=== PATIENT | female | born 1965 | race Caucasian/White ===

== ENCOUNTER 2017-10-04 17:09 | Outpatient (RCR) | payer BC, SELFPAY | END 2017-10-13 23:59 | LOC: NS 17:09 | PROVIDERS: Family Provider Internal Medicine; PCP Internal Medicine; Visit Provider Internal Medicine | DX: E66.9 Obesity, unspecified (principal); Z68.38 Body mass index [BMI] 38.0-38.9, adult; Z71.3 Dietary counseling and surveillance | CPT/HCPCS: 97803 ==

== ENCOUNTER → 2017-10-30 07:10 | Outpatient (CLI) | payer BC, SELFPAY ==
[2017-10-30 08:33] LABS: Absolute Lymphocyte Count 2.17 X10^3/ul (0.83-4.51); Absolute Neutrophil Count 2.9 X10^3/uL (2.0-7.7); Basophil# 0.01 X10^3/uL; Basophil% 0.2 % (0-1); Hemoglobin 13.4 g/dl (12.0-15.0); Lymphocyte # 2.17 X10^3/ul (4.0); Lymphocyte % 38.3 % (19-41); Mean Corp Hgb Conc 31.9 g/gl (32-36); Mean Corpuscular Hgb 29.2 pg (27.0-32.0); Mean Corpuscular Volume 91.5 fL (81-99); Mean Platelet Vol. 9.4 fl (6.2-12.0); Monocyte# 0.57 X10^3/uL; Monocyte% 10.1 % (0-10); Neutrophil % 51.2 % (47-70); Platelet Count 289 K/mm3 (150-450); RBC Distribution Width SD 49.7 fl (35.1-43.9); Red Blood Count 4.59 M/mm3 (4.2-5.4); White Blood Count 5.7 K/mm3 (4.4-11.0)
[2017-10-30 08:42] LABS: POSITIVE COUNT NO; POSITIVE DIFFERENTIAL NO; POSITIVE MORPHOLOGY NO
[2017-10-30 09:00] LABS: AST(SGOT) 18 U/L (15-37); Alanine Aminotransfer ALT/SGPT 36 U/L (13-56); Albumin, Serum 3.5 g/dL (3.2-5.0); Alkaline Phosphatase 68 U/L (45-117); Anion Gap 9 (5-15); BUN 11 mg/dL (7-18); BUN/Creat Ratio 15.2 RATIO (10-20); Calcium,Total 8.9 mg/dL (8.5-10.1); Chloride 102 mmol/L (98-107); Creatinine, Serum 0.72 mg/dL (0.55-1.02); EST Glomerular Filtration Rate 90 mL/min (>60); Est Glom Filt Rate - Afr Amer 109 mL/min (>60); Globulin 3.6 g/dL (2.2-4.2); Glucose 93 mg/dL (74-106); Potassium 4.2 mmol/L (3.5-5.1); Protein, Total 7.1 g/dL (6.4-8.2); Sodium Level 138 mmol/L (136-145)
== END ==
PROVIDERS: Family Provider Internal Medicine; PCP Internal Medicine; Visit Provider Internal Medicine Rheumatology
DX: M06.4 Inflammatory polyarthropathy (principal); Z79.899 Other long term (current) drug therapy; M79.7 Fibromyalgia; M35.00 Sjogren syndrome, unspecified; E03.9 Hypothyroidism, unspecified; I10 Essential (primary) hypertension; E20.9 Hypoparathyroidism, unspecified; E78.5 Hyperlipidemia, unspecified; F31.9 Bipolar disorder, unspecified
CPT/HCPCS: 36415; 80053; 85025

== ENCOUNTER 2017-11-01 10:00 | Outpatient (RCR) | payer BC, SELFPAY | END 2017-11-10 23:59 | LOC: NS 10:00 | PROVIDERS: Family Provider Internal Medicine; PCP Internal Medicine; Visit Provider Internal Medicine | DX: E66.9 Obesity, unspecified (principal); Z68.38 Body mass index [BMI] 38.0-38.9, adult; Z71.3 Dietary counseling and surveillance | CPT/HCPCS: 97803 ==

== ENCOUNTER 2017-11-15 16:11 | Outpatient (RCR) | payer BC, SELFPAY | END 2017-12-11 23:59 | LOC: NS 16:11 | PROVIDERS: Family Provider Internal Medicine; PCP Internal Medicine; Visit Provider Internal Medicine | DX: E66.9 Obesity, unspecified (principal); Z68.38 Body mass index [BMI] 38.0-38.9, adult; Z71.3 Dietary counseling and surveillance | CPT/HCPCS: 97803 ==

== ENCOUNTER → 2017-12-25 07:17 | Outpatient (CLI) | payer BC, SELFPAY ==
[2017-12-25 08:55] LABS: ALB/GLOB Ratio 0.9 RATIO (0.9-2.4); AST(SGOT) 29 U/L (15-37); Alanine Aminotransfer ALT/SGPT 33 U/L (13-56); Albumin, Serum 3.3 g/dL (3.2-5.0); Alkaline Phosphatase 69 U/L (45-117); Anion Gap 8 (5-15); BUN 11 mg/dL (7-18); BUN/Creat Ratio 16.4 RATIO (10-20); Calcium,Total 8.6 mg/dL (8.5-10.1); Chloride 108 mmol/L (98-107); Creatinine, Serum 0.67 mg/dL (0.55-1.02); EST Glomerular Filtration Rate 99 mL/min (>60); Est Glom Filt Rate - Afr Amer 120 mL/min (>60); Globulin 3.7 g/dL (2.2-4.2); Glucose 90 mg/dL (74-106); Potassium 4.4 mmol/L (3.5-5.1); Sodium Level 139 mmol/L (136-145); Thyroid Stim Hormone (TSH) 1.03 uIU/mL (0.358-3.74)
[2017-12-27 09:30] LABS: Vitamin D,25 Hydroxy 59.3 ng/mL (29.95-100.01)
== END ==
PROVIDERS: Family Provider Internal Medicine; PCP Internal Medicine; Visit Provider Internal Medicine Endocrinology, Diabetes & Metabolism
DX: E11.9 Type 2 diabetes mellitus without complications (principal); Z79.899 Other long term (current) drug therapy; I10 Essential (primary) hypertension; E55.9 Vitamin D deficiency, unspecified; E03.9 Hypothyroidism, unspecified; E78.2 Mixed hyperlipidemia
CPT/HCPCS: 36415; 80053; 82306; 83036; 84443

== ENCOUNTER 2018-01-03 16:28 | Outpatient (RCR) | payer BC, SELFPAY | END 2018-01-03 16:29 | LOC: NS 16:28 | PROVIDERS: Family Provider Internal Medicine; PCP Internal Medicine; Visit Provider Internal Medicine | DX: E66.9 Obesity, unspecified (principal); Z68.38 Body mass index [BMI] 38.0-38.9, adult; Z71.3 Dietary counseling and surveillance | CPT/HCPCS: 97803 ==

== ENCOUNTER → 2018-01-19 06:14 | Outpatient (CLI) | payer BC, SELFPAY ==
[2018-01-19 07:26] LABS: Erythrocyte Sedimentation Rate 6 mm/hr (0-30)
[2018-01-19 07:30] LABS: ALB/GLOB Ratio 0.8 RATIO (0.9-2.4); AST(SGOT) 29 U/L (15-37); Alanine Aminotransfer ALT/SGPT 39 U/L (13-56); Albumin, Serum 3.3 g/dL (3.2-5.0); Alkaline Phosphatase 69 U/L (45-117); Anion Gap 9 (5-15); BUN 11 mg/dL (7-18); BUN/Creat Ratio 14.6 RATIO (10-20); CRP 3.34 mg/L (0.0-3.0); Calcium,Total 8.9 mg/dL (8.5-10.1); Chloride 104 mmol/L (98-107); Creatinine, Serum 0.75 mg/dL (0.55-1.02); EST Glomerular Filtration Rate 87 mL/min (>60); Est Glom Filt Rate - Afr Amer 105 mL/min (>60); Globulin 3.9 g/dL (2.2-4.2); Glucose 86 mg/dL (74-106); Protein, Total 7.2 g/dL (6.4-8.2); Sodium Level 140 mmol/L (136-145)
[2018-01-19 07:32] LABS: Absolute Lymphocyte Count 2.27 X10^3/ul (0.83-4.51); Absolute Neutrophil Count 2.4 X10^3/uL (2.0-7.7); Basophil# 0.02 X10^3/uL; Basophil% 0.4 % (0-1); Eosinophil# 0.13 X10^3/uL; Eosinophils% 2.4 % (0-5); Hematocrit 42.8 % (37-47); Hemoglobin 14.2 g/dl (12.0-15.0); Lymphocyte # 2.27 X10^3/ul (4.0); Lymphocyte % 42.7 % (19-41); Mean Corp Hgb Conc 33.2 g/gl (32-36); Mean Corpuscular Hgb 32.1 pg (27.0-32.0); Mean Corpuscular Volume 96.6 fL (81-99); Mean Platelet Vol. 9.4 fl (6.2-12.0); Monocyte# 0.48 X10^3/uL; Neutrophil # 2.38 X10^3/uL (2.7-7.7); Neutrophil % 44.9 % (47-70); Platelet Count 302 K/mm3 (150-450); RBC Distribution Width CV 13.5 % (11.6-14.6); RBC Distribution Width SD 46.9 fl (35.1-43.9); Red Blood Count 4.43 M/mm3 (4.2-5.4); White Blood Count 5.3 K/mm3 (4.4-11.0)
[2018-01-19 07:37] LABS: POSITIVE COUNT NO; POSITIVE DIFFERENTIAL NO; POSITIVE MORPHOLOGY NO
== END ==
PROVIDERS: Family Provider Internal Medicine; PCP Internal Medicine; Visit Provider Internal Medicine Rheumatology
DX: M06.4 Inflammatory polyarthropathy (principal); Z79.899 Other long term (current) drug therapy; M79.7 Fibromyalgia; M35.00 Sjogren syndrome, unspecified; E03.9 Hypothyroidism, unspecified; I10 Essential (primary) hypertension; E20.9 Hypoparathyroidism, unspecified; E78.5 Hyperlipidemia, unspecified; F31.9 Bipolar disorder, unspecified
CPT/HCPCS: 36415; 80053; 85025; 85652; 86140

== ENCOUNTER → 2018-03-07 20:00 | Outpatient (CLI) | payer BC, SELFPAY | PROVIDERS: Family Provider Internal Medicine; PCP Internal Medicine; Visit Provider Internal Medicine | DX: R06.83 Snoring (principal) | CPT/HCPCS: 95810 ==

== ENCOUNTER → 2018-04-02 07:48 | Outpatient (CLI) | payer BC, SELFPAY ==
[2018-04-02 08:28] LABS: ALB/GLOB Ratio 0.9 RATIO (0.9-2.4); AST(SGOT) 28 U/L (15-37); Alanine Aminotransfer ALT/SGPT 33 U/L (13-56); Albumin, Serum 3.5 g/dL (3.2-5.0); Alkaline Phosphatase 60 U/L (45-117); Anion Gap 9 (5-15); BUN 8 mg/dL (7-18); BUN/Creat Ratio 9.5 RATIO (10-20); Calcium,Total 9.1 mg/dL (8.5-10.1); Chloride 108 mmol/L (98-107); Creatinine, Serum 0.84 mg/dL (0.55-1.02); EST Glomerular Filtration Rate 76 mL/min (>60); Est Glom Filt Rate - Afr Amer 92 mL/min (>60); Globulin 3.9 g/dL (2.2-4.2); Glucose 92 mg/dL (74-106); Potassium 4.2 mmol/L (3.5-5.1); Protein, Total 7.4 g/dL (6.4-8.2); Sodium Level 139 mmol/L (136-145)
[2018-04-02 08:35] LABS: Hemoglobin A1c 4.9 % (4.2-6.3)
== END ==
PROVIDERS: Family Provider Internal Medicine; PCP Internal Medicine; Visit Provider Internal Medicine Endocrinology, Diabetes & Metabolism
DX: E11.9 Type 2 diabetes mellitus without complications (principal); I10 Essential (primary) hypertension; E78.2 Mixed hyperlipidemia; Z79.899 Other long term (current) drug therapy
CPT/HCPCS: 36415; 80053; 83036

== ENCOUNTER → 2018-04-21 07:19 | Outpatient (CLI) | payer BC, SELFPAY ==
[2018-04-21 08:35] LABS: Absolute Lymphocyte Count 1.89 X10^3/ul (0.83-4.51); Absolute Neutrophil Count 2.8 X10^3/uL (2.0-7.7); Basophil# 0.02 X10^3/uL; Basophil% 0.4 % (0-1); Hematocrit 44.2 % (37-47); Hemoglobin 14.6 g/dl (12.0-15.0); Lymphocyte # 1.89 X10^3/ul (4.0); Lymphocyte % 36.3 % (19-41); Mean Corpuscular Hgb 32.2 pg (27.0-32.0); Mean Corpuscular Volume 97.6 fL (81-99); Mean Platelet Vol. 9.6 fl (6.2-12.0); Monocyte# 0.46 X10^3/uL; Monocyte% 8.8 % (0-10); Neutrophil # 2.82 X10^3/uL (2.7-7.7); Neutrophil % 54.3 % (47-70); POSITIVE COUNT NO; POSITIVE DIFFERENTIAL NO; POSITIVE MORPHOLOGY NO; Platelet Count 281 K/mm3 (150-450); RBC Distribution Width CV 12.8 % (11.6-14.6); RBC Distribution Width SD 45.7 fl (35.1-43.9); Red Blood Count 4.53 M/mm3 (4.2-5.4); White Blood Count 5.2 K/mm3 (4.4-11.0)
[2018-04-21 09:01] LABS: ALB/GLOB Ratio 0.9 RATIO (0.9-2.4); AST(SGOT) 22 U/L (15-37); Alanine Aminotransfer ALT/SGPT 35 U/L (13-56); Albumin, Serum 3.6 g/dL (3.2-5.0); Alkaline Phosphatase 63 U/L (45-117); Anion Gap 8 (5-15); BUN 10 mg/dL (7-18); BUN/Creat Ratio 12.2 RATIO (10-20); Calcium,Total 9.1 mg/dL (8.5-10.1); Chloride 105 mmol/L (98-107); Creatinine, Serum 0.82 mg/dL (0.55-1.02); EST Glomerular Filtration Rate 78 mL/min (>60); Est Glom Filt Rate - Afr Amer 95 mL/min (>60); Globulin 4.1 g/dL (2.2-4.2); Glucose 94 mg/dL (74-106); Potassium 4.3 mmol/L (3.5-5.1); Protein, Total 7.7 g/dL (6.4-8.2); Sodium Level 139 mmol/L (136-145)
== END ==
PROVIDERS: Family Provider Internal Medicine; PCP Internal Medicine; Visit Provider Internal Medicine Rheumatology
DX: M06.4 Inflammatory polyarthropathy (principal); Z79.899 Other long term (current) drug therapy; M79.7 Fibromyalgia; M35.00 Sjogren syndrome, unspecified; E03.9 Hypothyroidism, unspecified; I10 Essential (primary) hypertension; E20.9 Hypoparathyroidism, unspecified; E78.5 Hyperlipidemia, unspecified; F31.9 Bipolar disorder, unspecified
CPT/HCPCS: 36415; 80053; 85025

== ENCOUNTER → 2018-06-13 10:46 | Outpatient (CLI) | payer BC, SELFPAY ==
[2018-06-16 13:20] LABS: HPV Reflexed? NOT INDICATED
== END ==
PROVIDERS: Visit Provider Obstetrics & Gynecology
DX: Z12.4 Encounter for screening for malignant neoplasm of cervix (principal)
CPT/HCPCS: 88175; G0145

== ENCOUNTER → 2018-07-09 07:12 | Outpatient (CLI) | payer BC, SELFPAY ==
[2018-07-09 08:33] LABS: Hemoglobin A1c 4.8 % (4.2-6.3)
[2018-07-09 08:37] LABS: ALB/GLOB Ratio 0.9 RATIO (0.9-2.4); AST(SGOT) 20 U/L (15-37); Alanine Aminotransfer ALT/SGPT 35 U/L (13-56); Albumin, Serum 3.5 g/dL (3.2-5.0); Alkaline Phosphatase 70 U/L (45-117); Anion Gap 8 (5-15); BUN 9 mg/dL (7-18); BUN/Creat Ratio 13.2 RATIO (10-20); Calcium,Total 8.8 mg/dL (8.5-10.1); Chloride 105 mmol/L (98-107); Creatinine, Serum 0.68 mg/dL (0.55-1.02); EST Glomerular Filtration Rate 97 mL/min (>60); Est Glom Filt Rate - Afr Amer 117 mL/min (>60); Globulin 3.7 g/dL (2.2-4.2); Glucose 83 mg/dL (74-106); Potassium 4.1 mmol/L (3.5-5.1); Protein, Total 7.2 g/dL (6.4-8.2); Sodium Level 138 mmol/L (136-145); Thyroid Stim Hormone (TSH) 0.96 uIU/mL (0.358-3.74)
[2018-07-09 08:40] LABS: Microalbumin,Random Urine < 5.0 mg/L (NO RANGE EST.)
== END ==
PROVIDERS: Family Provider Internal Medicine; PCP Internal Medicine; Referring Provider Internal Medicine Endocrinology, Diabetes & Metabolism; Visit Provider Internal Medicine Endocrinology, Diabetes & Metabolism
DX: E11.9 Type 2 diabetes mellitus without complications (principal); E03.9 Hypothyroidism, unspecified; Z79.899 Other long term (current) drug therapy; E78.2 Mixed hyperlipidemia
CPT/HCPCS: 36415; 80053; 82043; 82570; 83036; 84443

== ENCOUNTER → 2018-07-13 07:00 | Outpatient (CLI) | payer BC, SELFPAY ==
--- NOTE | 2018-07-13 07:01 | BI_ITS ---
MAMMOGRAPHY - BILATERAL SCREENING REASON FOR EXAM: Female, 52 years old. Routine annual screening examination. PERTINENT HISTORY: Mother with breast cancer. TECHNIQUE: Digital bilateral breast shari (3D mammographic acquisition) in the CC and MLO projections. 2-D mediolateral oblique (MLO) and craniocaudad (CC) views of both breasts were obtained. CAD: Full Field Digital Mammography with Computer Added Detection was performed. COMPARISON: Comparison is made with prior study dated May 04, 2017 and March 25, 2016. FINDINGS: Breast Composition: The breasts are almost entirely fatty. There are no dominant masses or suspicious calcifications. Stable small benign-appearing bilateral axillary nodes. No other significant abnormalities are identified. There has been no significant change since the prior study. BI/SCREENING MAMM (CAD), BILAT IMPRESSION: Stable bilateral screening mammogram. Yearly follow-up mammogram recommended. (A) ASSESSMENT CATEGORY: BIRADS Category 2: Benign. A letter regarding these results will be sent to the patient by the facility within 30 days. Approximately 10% of breast cancers are not detected by mammography. A normal mammogram should not delay biopsy of a clinically suspicious abnormality. [id number] Electronically Signed: Selwyn Guaman MD at 8:16 EDT Tel [phone], Service support ,
== END ==
PROVIDERS: Family Provider Internal Medicine; PCP Internal Medicine; Visit Provider Obstetrics & Gynecology
DX: Z12.31 Encounter for screening mammogram for malignant neoplasm of breast (principal)
CPT/HCPCS: 77063; 77067

== ENCOUNTER → 2018-07-23 07:08 | Outpatient (CLI) | payer BC, SELFPAY ==
[2018-07-23 07:47] LABS: Absolute Lymphocyte Count 2.22 X10^3/ul (0.83-4.51); Absolute Neutrophil Count 3.5 X10^3/uL (2.0-7.7); Basophil# 0.02 X10^3/uL; Basophil% 0.3 % (0-1); Eosinophil# 0.15 X10^3/uL; Eosinophils% 2.3 % (0-5); Hematocrit 42.5 % (37-47); Hemoglobin 14.1 g/dl (12.0-15.0); Lymphocyte # 2.22 X10^3/ul (4.0); Lymphocyte % 34.3 % (19-41); Mean Corp Hgb Conc 33.2 g/gl (32-36); Mean Corpuscular Hgb 32.2 pg (27.0-32.0); Mean Platelet Vol. 9.1 fl (6.2-12.0); Monocyte# 0.51 X10^3/uL; Monocyte% 7.9 % (0-10); Neutrophil # 3.54 X10^3/uL (2.7-7.7); Neutrophil % 54.7 % (47-70); Platelet Count 332 K/mm3 (150-450); RBC Distribution Width CV 12.8 % (11.6-14.6); Red Blood Count 4.38 M/mm3 (4.2-5.4); White Blood Count 6.5 K/mm3 (4.4-11.0)
[2018-07-23 07:48] LABS: POSITIVE COUNT NO; POSITIVE DIFFERENTIAL NO; POSITIVE MORPHOLOGY NO
[2018-07-23 08:20] LABS: ALB/GLOB Ratio 0.8 RATIO (0.9-2.4); AST(SGOT) 12 U/L (15-37); Alanine Aminotransfer ALT/SGPT 23 U/L (13-56); Albumin, Serum 3.3 g/dL (3.2-5.0); Alkaline Phosphatase 64 U/L (45-117); Anion Gap 9 (5-15); BUN 12 mg/dL (7-18); BUN/Creat Ratio 17.4 RATIO (10-20); Chloride 108 mmol/L (98-107); Creatinine, Serum 0.69 mg/dL (0.55-1.02); EST Glomerular Filtration Rate 96 mL/min (>60); Est Glom Filt Rate - Afr Amer 116 mL/min (>60); Globulin 3.9 g/dL (2.2-4.2); Glucose 85 mg/dL (74-106); Potassium 4.4 mmol/L (3.5-5.1); Protein, Total 7.2 g/dL (6.4-8.2); Sodium Level 142 mmol/L (136-145)
== END ==
PROVIDERS: Family Provider Internal Medicine; PCP Internal Medicine; Referring Provider Internal Medicine Rheumatology; Visit Provider Internal Medicine Rheumatology
DX: M06.4 Inflammatory polyarthropathy (principal); Z79.899 Other long term (current) drug therapy; M79.7 Fibromyalgia; M35.00 Sjogren syndrome, unspecified; E03.9 Hypothyroidism, unspecified; I10 Essential (primary) hypertension; E20.9 Hypoparathyroidism, unspecified; E78.5 Hyperlipidemia, unspecified; F31.9 Bipolar disorder, unspecified
CPT/HCPCS: 36415; 80053; 85025

== ENCOUNTER → 2018-10-15 07:02 | Outpatient (CLI) | payer BC, SELFPAY ==
[2018-10-15 07:45] LABS: Absolute Lymphocyte Count 1.85 X10^3/ul (0.83-4.51); Absolute Neutrophil Count 2.9 X10^3/uL (2.0-7.7); Basophil# 0.01 X10^3/uL; Basophil% 0.2 % (0-1); Eosinophil# 0.13 X10^3/uL; Eosinophils% 2.4 % (0-5); Hematocrit 41.6 % (37-47); Hemoglobin 13.7 g/dl (12.0-15.0); Lymphocyte # 1.85 X10^3/ul (4.0); Lymphocyte % 34.7 % (19-41); Mean Corp Hgb Conc 32.9 g/gl (32-36); Mean Corpuscular Volume 100.2 fL (81-99); Mean Platelet Vol. 9.1 fl (6.2-12.0); Monocyte# 0.43 X10^3/uL; Monocyte% 8.1 % (0-10); Neutrophil % 54.4 % (47-70); Platelet Count 320 K/mm3 (150-450); RBC Distribution Width CV 13.3 % (11.6-14.6); RBC Distribution Width SD 47.2 fl (35.1-43.9); Red Blood Count 4.15 M/mm3 (4.2-5.4); White Blood Count 5.3 K/mm3 (4.4-11.0)
[2018-10-15 07:48] LABS: POSITIVE COUNT NO; POSITIVE DIFFERENTIAL NO; POSITIVE MORPHOLOGY NO
[2018-10-15 08:29] LABS: ALB/GLOB Ratio 0.9 RATIO (0.9-2.4); AST(SGOT) 14 U/L (15-37); Alanine Aminotransfer ALT/SGPT 24 U/L (13-56); Albumin, Serum 3.5 g/dL (3.2-5.0); Alkaline Phosphatase 63 U/L (45-117); Anion Gap 10 (5-15); BUN 14 mg/dL (7-18); BUN/Creat Ratio 21.1 RATIO (10-20); Calcium,Total 9.3 mg/dL (8.5-10.1); Chloride 105 mmol/L (98-107); Cholesterol 164 mg/dL (200); Creatinine, Serum 0.66 mg/dL (0.55-1.02); EST Glomerular Filtration Rate 100 mL/min (>60); Est Glom Filt Rate - Afr Amer 121 mL/min (>60); Globulin 3.9 g/dL (2.2-4.2); Glucose 84 mg/dL (74-106); High Density Lipoprotein 56 mg/dL; Potassium 4.5 mmol/L (3.5-5.1); Protein, Total 7.4 g/dL (6.4-8.2); Sodium Level 140 mmol/L (136-145); Triglycerides 97 mg/dL; Very Low Density Lipoprotein 19 mg/dL (5-40)
[2018-10-15 08:37] LABS: Hemoglobin A1c 4.7 % (4.2-6.3)
[2018-10-17 10:35] LABS: Vitamin B12 568 pg/mL (211-911); Vitamin D,25 Hydroxy 51.7 ng/mL (29.95-100.01)
== END ==
PROVIDERS: Family Provider Internal Medicine; PCP Internal Medicine; Referring Provider Internal Medicine Rheumatology; Visit Provider Internal Medicine Rheumatology
DX: M06.4 Inflammatory polyarthropathy (principal); Z79.899 Other long term (current) drug therapy; M79.7 Fibromyalgia; M35.00 Sjogren syndrome, unspecified; E03.9 Hypothyroidism, unspecified; I10 Essential (primary) hypertension; E20.9 Hypoparathyroidism, unspecified; E78.5 Hyperlipidemia, unspecified; F31.9 Bipolar disorder, unspecified; E11.65 Type 2 diabetes mellitus with hyperglycemia; E78.2 Mixed hyperlipidemia; E55.9 Vitamin D deficiency, unspecified
CPT/HCPCS: 80053; 80061; 82306; 82607; 83036; 85025

== ENCOUNTER → 2018-11-08 08:15 | Outpatient (CLI) | payer BC, SELFPAY ==
--- NOTE | 2018-11-08 08:23 | US_ITS ---
STUDY: THYROID ULTRASOUND REASON FOR EXAM: Female, 52 years old. History of a multinodular goiter. Prior right thyroidectomy. TECHNIQUE: Ultrasound evaluation of the thyroid was performed with real-time and static ramon-scale imaging. COMPARISON: None. FINDINGS: RIGHT LOBE: The right lobe of the thyroid has been resected. LEFT LOBE: The left lobe of the thyroid gland is mildly enlarged and measures 5.3 cm x 2.1 cm x 1.6 cm. There is a heterogeneous echotexture. 5 solid nodules are seen in the left lobe. The largest measures 1.2 cm x 0.8 cm x 0.8 cm. There are 2 stable echogenic nodules in the mid pole of the thyroid gland. ISTHMUS: The isthmus measures 3.0 mm. The regional lymph nodes are normal. US/Thyroid IMPRESSION: Status post right thyroidectomy. Stable appearance of the nodular densities in the left lobe of the thyroid. Electronically Signed: Selwyn Guaman, at 10:14 EST , Service support ,
== END ==
PROVIDERS: Family Provider Internal Medicine; PCP Internal Medicine; Referring Provider Internal Medicine Endocrinology, Diabetes & Metabolism; Visit Provider Internal Medicine Endocrinology, Diabetes & Metabolism
DX: E04.2 Nontoxic multinodular goiter (principal)
CPT/HCPCS: 76536

== ENCOUNTER 2018-11-30 07:00 | Outpatient (RCR) | payer BC, SELFPAY ==
--- NOTE | 2018-11-09 08:22 | HP.PTEVAL_ITS ---
Patient's Visit Information SANTOS ALLAN is a 52 year old F referred to Physical Therapy by Vaibhav Guzman PA-C with a diagnosis of cervicalgia with radiculopathy. Date of Evaluation: 11/09/18 Physical Therapist: Rod Ramires, PT, ATC - Visit Plan Frequency: 2x /Week Duration: 2-4 Weeks Plan: postural edu, RRIS, DTR, MH, and scapular retraction ex's - Subjective Findings: Pt reports she has had neck pain for at least 4 mos. Pt reports her pain had an insidious onset in nature. Pt reports she has R UE radiculopathy that is intermittent in nature. 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 Pt reports she has had a c5-6 fusion in 2013. Pt notes she has sleep difficuty secondary to pain. Pt reports when she uses her computer, or just her R UE in general, her pain becomes worse. Pt reports stretching and massage tends to help her a little bit. Pt had recent xrays, which revealed inflammation, but no specific cause of her pain. Pt is R hand dominant. 3/10 pain at rest, 8/10 at worst. - Pain neck pain Pain Intensity (Out of 10): 3 Pain Intensity Range: 8 - Objective Neuro: B UE sensation is WNL to light touch. B bicepital reflex= 2/3. Palpation: Pt has significant muscle guarding throughout her neck. No obvious deformities. ROM: Pt is minimally limited with R rot and SB. No other limitations with AROM. MMT: R shoulder is grossly 4+/5 throughout. L shoulder is 5/5 throughout. Repeated movements: RRIS 10x3 decreased pain. RPIS 10x3 peripheralised sx's - Goals Goal 1:: Decrease neck pain x 50% to aid with sleep Goal Time Frame: 2-4 Weeks Goal 2:: Decrease frequency and intensity of R UE radiculopathy x 50% to aid with work tolerance Goal Time Frame: 2-4 Weeks Goal 3:: Pt will display proper posture both verbally and physically to aid with increased tolerance at work Goal Time Frame: 2-4 Weeks Goal 4:: I with HEP Goal Time Frame: 2-4 Weeks - Rehabilitation Potential Physical Therapy Diagnosis: Pt has neck pain and R UE rqadiculopathy secondary to c/s derrangement Rehabilitation Potential: Good - Anticipated Interventions Patient/Client Instruction: Educate patient on: Condition, Plan of Care For the Purpose of:: To improve self management Therapeutic Exercise to Include: Strength training, Endurance training, Balance training, Postural training, Traci Exercises, Scapular Strength/Stabilization For the Purpose of:: To decrease pain, To increase ROM, To improve muscle performance and motor function Thermo therapy (hot pack): Yes For the Purpose of:: To decrease pain Thank you for the opportunity to evaluate your patient. For Medicare and Medicare HMO plans, please review the plan of care and approve it. It will need to be FAXED BACK to us at [phone] for Medicare purposes. For Medicare only, by signing this I certify the plan of care. Please let me know if there are questions or concerns regarding this plan of care. Physician Signature: Date:
--- NOTE | 2019-03-30 12:12 | HP.PTDCSUM ---
HP - PT D/C Summary It has been my pleasure to treat SANTOS ALLAN under orders from Vaibhav Guzman PA-C, for the diagnosis of cervicalgia with radiculopathy for a total of 5 visit(s). Discharge Date: Please see the following information for a summary of their discharge status. - Subjective Subjective: Pt reports her pain has returned and she feels no better - Pain neck pain Pain Intensity (Out of 10): 5 - Overall Improvement % Improvement: 0 - Objective Objective/Function: Pain has remained the same 01/20. Pt reports her R UE sx's continue to extend from her shoulder to her thumbs. C/S Rom has improved, but pt is still limited with R SB and rotation. Pt is more aware of her posture now. Pt is I with HEP - Goals Goal 1:: Decrease neck pain x 50% to aid with sleep Goal Progress: Not Progressing Goal 2:: Decrease frequency and intensity of R UE radiculopathy x 50% to aid with work tolerance Goal Progress: Not Progressing Goal 3:: Pt will display proper posture both verbally and physically to aid with increased tolerance at work Goal Progress: Goal Met Goal 4:: I with HEP Goal Progress: Goal Met - Plan Plan: Discontinue and RTD - D/C Information If there are questions or concerns regarding this patient's physical therapy, please feel free to call me at [phone]. Thank you for the referral of this patient. Sincerely, Rod Ramires, PT, ATC
== END 2018-11-30 19:00 | disposition home or self-care (01) ==
LOC: PT 07:00
PROVIDERS: Family Provider Internal Medicine; PCP Internal Medicine; Referring Provider Physician Assistant; Visit Provider Physician Assistant
DX: M54.12 Radiculopathy, cervical region (principal); M54.2 Cervicalgia; E66.9 Obesity, unspecified
CPT/HCPCS: 97140; 97161; 97530

== ENCOUNTER → 2018-12-19 13:58 | Outpatient (CLI) | payer BC, SELFPAY ==
[2018-12-19 15:24] LABS: Creatinine, Serum 0.71 mg/dL (0.55-1.02); EST Glomerular Filtration Rate 92 mL/min (>60); Est Glom Filt Rate - Afr Amer 111 mL/min (>60)
== END ==
PROVIDERS: Family Provider Internal Medicine; PCP Internal Medicine; Referring Provider Physician Assistant; Visit Provider Physician Assistant
DX: M50.30 Other cervical disc degeneration, unspecified cervical region (principal)
CPT/HCPCS: 36415; 82565

== ENCOUNTER → 2019-01-14 | Outpatient (CLI) | payer BC, SELFPAY ==
[2019-01-14 08:30] LABS: Absolute Lymphocyte Count 1.81 X10^3/ul (0.83-4.51); Absolute Neutrophil Count 3.3 X10^3/uL (2.0-7.7); Basophil# 0.02 X10^3/uL; Basophil% 0.4 % (0-1); Eosinophils% 1.8 % (0-5); Hematocrit 43.5 % (37-47); Hemoglobin 14.3 g/dl (12.0-15.0); Lymphocyte # 1.81 X10^3/ul (4.0); Mean Corp Hgb Conc 32.9 g/gl (32-36); Mean Corpuscular Hgb 32.1 pg (27.0-32.0); Mean Corpuscular Volume 97.5 fL (81-99); Mean Platelet Vol. 8.9 fl (6.2-12.0); Monocyte% 7.1 % (0-10); Neutrophil # 3.31 X10^3/uL (2.7-7.7); Neutrophil % 58.3 % (47-70); Platelet Count 322 K/mm3 (150-450); RBC Distribution Width CV 12.6 % (11.6-14.6); RBC Distribution Width SD 43.2 fl (35.1-43.9); Red Blood Count 4.46 M/mm3 (4.2-5.4); White Blood Count 5.7 K/mm3 (4.4-11.0)
[2019-01-14 08:34] LABS: POSITIVE COUNT NO; POSITIVE DIFFERENTIAL NO; POSITIVE MORPHOLOGY NO
[2019-01-14 09:05] LABS: Hemoglobin A1c 4.6 % (4.2-6.3)
[2019-01-14 09:25] LABS: AST(SGOT) 20 U/L (15-37); Alanine Aminotransfer ALT/SGPT 22 U/L (13-56); Albumin, Serum 3.8 g/dL (3.2-5.0); Alkaline Phosphatase 64 U/L (45-117); Anion Gap 7 (5-15); BUN 10 mg/dL (7-18); BUN/Creat Ratio 14.1 RATIO (10-20); Calcium,Total 9.1 mg/dL (8.5-10.1); Chloride 104 mmol/L (98-107); Creatinine, Serum 0.71 mg/dL (0.55-1.02); EST Glomerular Filtration Rate 93 mL/min (>60); Est Glom Filt Rate - Afr Amer 112 mL/min (>60); Globulin 3.7 g/dL (2.2-4.2); Glucose 78 mg/dL (74-106); Potassium 4.5 mmol/L (3.5-5.1); Protein, Total 7.5 g/dL (6.4-8.2); Sodium Level 136 mmol/L (136-145); Thyroid Stim Hormone (TSH) 1.07 uIU/mL (0.358-3.74)
[2019-01-16 09:44] LABS: Vitamin B12 690 pg/mL (211-911)
== END | disposition home or self-care (01) ==
PROVIDERS: Family Provider Internal Medicine; PCP Internal Medicine; Referring Provider Internal Medicine Rheumatology; Visit Provider Internal Medicine Rheumatology
DX: M06.4 Inflammatory polyarthropathy (principal); Z79.899 Other long term (current) drug therapy; M79.7 Fibromyalgia; M35.00 Sjogren syndrome, unspecified; E03.9 Hypothyroidism, unspecified; I10 Essential (primary) hypertension; E20.9 Hypoparathyroidism, unspecified; E78.5 Hyperlipidemia, unspecified; F31.9 Bipolar disorder, unspecified; E11.9 Type 2 diabetes mellitus without complications
CPT/HCPCS: 36415; 80053; 82607; 83036; 84443; 85025

== ENCOUNTER → 2019-04-15 | Outpatient (CLI) | payer BC, SELFPAY ==
[2019-04-15 07:47] LABS: Absolute Lymphocyte Count 1.99 X10^3/uL (0.83-4.51); Absolute Neutrophil Count 2.9 X10^3/uL (2.0-7.7); Basophil# 0.03 X10^3/uL; Basophil% 0.6 % (0-1); Eosinophil# 0.06 X10^3/uL; Eosinophils% 1.1 % (0-5); Hematocrit 39.8 % (37-47); Hemoglobin 13.1 g/dL (12.0-15.0); Lymphocyte # 1.99 X10^3/ul (4.0); Mean Corp Hgb Conc 32.9 g/dL (32-36); Mean Corpuscular Hgb 32.8 pg (27.0-32.0); Mean Corpuscular Volume 99.7 fL (81-99); Monocyte# 0.37 X10^3/uL; Monocyte% 6.9 % (0-10); NRBC Flagged by Analyzer 0 % (0-5); Neutrophil % 53.8 % (47-70); Platelet Count 289 K/mm3 (150-450); RBC Distribution Width CV 12.2 % (11.6-14.6); RBC Distribution Width SD 44.4 fl (35.1-43.9); Red Blood Count 3.99 M/mm3 (4.2-5.4); White Blood Count 5.4 K/mm3 (4.4-11.0)
[2019-04-15 08:07] LABS: Hemoglobin A1c 4.5 % (4.2-6.3)
[2019-04-15 08:14] LABS: ALB/GLOB Ratio 0.9 RATIO (0.9-2.4); AST(SGOT) 15 U/L (15-37); Alanine Aminotransfer ALT/SGPT 31 U/L (13-56); Albumin, Serum 3.4 g/dL (3.2-5.0); Alkaline Phosphatase 65 U/L (45-117); Anion Gap 9 (5-15); BUN 12 mg/dL (7-18); BUN/Creat Ratio 16.7 RATIO (10-20); Calcium,Total 8.8 mg/dL (8.5-10.1); Chloride 105 mmol/L (98-107); Creatinine, Serum 0.72 mg/dL (0.55-1.02); EST Glomerular Filtration Rate 91 mL/min (>60); Est Glom Filt Rate - Afr Amer 110 mL/min (>60); Globulin 3.7 g/dL (2.2-4.2); Glucose 85 mg/dL (74-106); Phosphorus 3.6 mg/dL (2.5-4.9); Protein, Total 7.1 g/dL (6.4-8.2); Sodium Level 141 mmol/L (136-145); T4 Free Direct 1.36 ng/dL (0.76-1.46); Thyroid Stim Hormone (TSH) 1.23 uIU/mL (0.358-3.74)
[2019-04-15 13:47] LABS: Vitamin D,25 Hydroxy 55.3 ng/mL (29.95-100.01)
[2019-04-17 08:51] LABS: PTHIN 32.9 pg/mL (18.4-80.1)
== END | disposition home or self-care (01) ==
LOC: LAB 07:10
PROVIDERS: Family Provider Internal Medicine; PCP Internal Medicine; Referring Provider Internal Medicine Rheumatology; Visit Provider Internal Medicine Rheumatology
DX: M06.4 Inflammatory polyarthropathy (principal); Z79.899 Other long term (current) drug therapy; M79.7 Fibromyalgia; M35.00 Sjogren syndrome, unspecified; M25.511 Pain in right shoulder; E03.9 Hypothyroidism, unspecified; I10 Essential (primary) hypertension; E20.9 Hypoparathyroidism, unspecified; E78.5 Hyperlipidemia, unspecified; F31.9 Bipolar disorder, unspecified; E11.9 Type 2 diabetes mellitus without complications; E78.9 Disorder of lipoprotein metabolism, unspecified; E55.9 Vitamin D deficiency, unspecified
CPT/HCPCS: 36415; 80053; 82306; 83036; 83970; 84100; 84439; 84443; 85025

== ENCOUNTER → 2019-06-03 07:00 | Outpatient (CLI) | payer BC, SELFPAY ==
[2019-06-03 08:10] LABS: Color, Urine Yellow (Yellow); Glucose, Dipstick Normal (Normal); Ketone-Dipstick Negative (Negative); Leukocyte Esterase-Dipstick Negative /ul (Negative); Nitrite-Dipstick Negative (Negative); Occult Blood-Urine 10 /ul (Negative); Protein-Dipstick Negative (Negative); Urine Bilirubin Dipstick Negative (Negative); Urine Clarity Clear (Clear); Urine Urobilinogen Normal (Normal)
[2019-06-03 08:15] LABS: Erythrocyte Sedimentation Rate 11 mm/hr (0-30)
[2019-06-03 08:16] LABS: Absolute Lymphocyte Count 2.19 X10^3/uL (0.83-4.51); Absolute Neutrophil Count 3.9 X10^3/uL (2.0-7.7); Basophil# 0.04 X10^3/uL; Basophil% 0.6 % (0-1); Hematocrit 43.1 % (37-47); Hemoglobin 14.3 g/dL (12.0-15.0); Lymphocyte # 2.19 X10^3/ul (4.0); Lymphocyte % 32.9 % (19-41); Mean Corp Hgb Conc 33.2 g/dL (32-36); Mean Corpuscular Hgb 32.5 pg (27.0-32.0); Mean Platelet Vol. 9.3 fl (6.2-12.0); Monocyte# 0.45 X10^3/uL; Monocyte% 6.8 % (0-10); NRBC Flagged by Analyzer 0 % (0-5); Neutrophil # 3.93 X10^3/uL (2.7-7.7); Neutrophil % 58.9 % (47-70); Platelet Count 359 K/mm3 (150-450); RBC Distribution Width CV 12.1 % (11.6-14.6); RBC Distribution Width SD 43.4 fl (35.1-43.9); White Blood Count 6.7 K/mm3 (4.4-11.0)
[2019-06-03 08:46] LABS: ALB/GLOB Ratio 0.9 RATIO (0.9-2.4); AST(SGOT) 23 U/L (15-37); Alanine Aminotransfer ALT/SGPT 27 U/L (13-56); Albumin, Serum 3.4 g/dL (3.2-5.0); Alkaline Phosphatase 70 U/L (45-117); Anion Gap 11 (5-15); BUN 9 mg/dL (7-18); BUN/Creat Ratio 11.3 RATIO (10-20); CRP 4.23 mg/L (0.0-3.0); Chloride 104 mmol/L (98-107); Creatinine, Serum 0.79 mg/dL (0.55-1.02); EST Glomerular Filtration Rate 81 mL/min (>60); Est Glom Filt Rate - Afr Amer 98 mL/min (>60); Globulin 3.9 g/dL (2.2-4.2); Glucose 94 mg/dL (74-106); Protein, Total 7.3 g/dL (6.4-8.2); Rheumatoid Factor < 10.0 IU/mL (<15); Sodium Level 139 mmol/L (136-145)
[2019-06-04 10:34] LABS: Complement C3 171 mg/dL (82-167)
[2019-06-05 21:09] LABS: RNP Ab <0.2 AI (0.0-0.9); SJOGREN'S Anti-SS-A test < 0.2 AI (0.0-0.9); SJOGREN'S Anti-SS-B test < 0.2 AI (0.0-0.9); Smith Ab <0.2 AI (0.0-0.9)
[2019-06-06 17:03] LABS: ANTINUCLEAR ANTIBODIES DIRECT Negative (Negative)
== END ==
PROVIDERS: Family Provider Internal Medicine; PCP Internal Medicine
DX: M35.01 Sjogren syndrome with keratoconjunctivitis (principal)
CPT/HCPCS: 36415; 80053; 81002; 85025; 85652; 86038; 86140; 86160; 86235; 86431

== ENCOUNTER → 2019-06-15 10:17 | Outpatient (CLI) | payer BC, SELFPAY ==
[2019-06-20 14:04] LABS: HPV APTIMA, High Risk Negative (Negative)
== END ==
PROVIDERS: Family Provider Internal Medicine; PCP Internal Medicine; Visit Provider Obstetrics & Gynecology
DX: Z12.4 Encounter for screening for malignant neoplasm of cervix (principal)
CPT/HCPCS: 87624; 88175; G0145

== ENCOUNTER → 2019-07-14 07:00 | Outpatient (CLI) | payer BC, SELFPAY ==
--- NOTE | 2019-07-14 07:00 | BI_ITS ---
MAMMOGRAPHY - BILATERAL SCREENING REASON FOR EXAM: Female, 53 years old. Routine annual screening examination. PERTINENT HISTORY: Mother with breast cancer. TECHNIQUE: Digital bilateral breast chuck (3D mammographic acquisition) in the CC and MLO projections. 2-D mediolateral oblique (MLO) and craniocaudad (CC) views of both breasts were obtained. CAD: Full Field Digital Mammography with Computer Added Detection was performed. COMPARISON: Comparison is made with prior examination dated July 13, 2018 and May 04, 2017. FINDINGS: Breast Composition: The breasts are almost entirely fatty. There are no dominant masses or suspicious calcifications. Stable benign-appearing bilateral axillary lymph nodes. No other significant abnormalities are identified. There has been no significant change since the prior study. BI/SCREEN MAMM (CAD) W/CHUCK BILAT IMPRESSION: Stable bilateral screening mammogram. Yearly follow-up mammogram recommended. (A) ASSESSMENT CATEGORY: BIRADS Category 2: Benign. A letter regarding these results will be sent to the patient by the facility within 30 days. Approximately 10% of breast cancers are not detected by mammography. A normal mammogram should not delay biopsy of a clinically suspicious abnormality. [id number] Electronically Signed: Selwyn Guaman, at 9:05 EDT , Service support ,
== END ==
PROVIDERS: Family Provider Internal Medicine; PCP Internal Medicine; Referring Provider Obstetrics & Gynecology; Visit Provider Obstetrics & Gynecology
DX: Z12.31 Encounter for screening mammogram for malignant neoplasm of breast (principal)
CPT/HCPCS: 77063; 77067

== ENCOUNTER → 2019-07-15 07:00 | Outpatient (CLI) | payer BC, SELFPAY ==
[2019-07-15 08:09] LABS: ALB/GLOB Ratio 0.9 RATIO (0.9-2.4); AST(SGOT) 20 U/L (15-37); Alanine Aminotransfer ALT/SGPT 28 U/L (13-56); Albumin, Serum 3.5 g/dL (3.2-5.0); Alkaline Phosphatase 62 U/L (45-117); Anion Gap 9 (5-15); BUN 9 mg/dL (7-18); BUN/Creat Ratio 11.5 RATIO (10-20); Calcium,Total 9.3 mg/dL (8.5-10.1); Chloride 105 mmol/L (98-107); Creatinine, Serum 0.78 mg/dL (0.55-1.02); EST Glomerular Filtration Rate 83 mL/min (>60); Est Glom Filt Rate - Afr Amer 100 mL/min (>60); Globulin 3.8 g/dL (2.2-4.2); Glucose 89 mg/dL (74-106); Magnesium 2.4 mg/dL (1.6-2.6); Potassium 4.3 mmol/L (3.5-5.1); Protein, Total 7.3 g/dL (6.4-8.2); Sodium Level 139 mmol/L (136-145)
[2019-07-15 08:12] LABS: Hemoglobin A1c 4.9 % (4.2-6.3)
[2019-07-15 08:16] LABS: Microalbumin,Random Urine 8.8 mg/L (NO RANGE EST.); Microalbumin:Creatinine Ratio 4.8 mg/g CRE (<30 mg/g CRE)
== END ==
PROVIDERS: Family Provider Internal Medicine; PCP Internal Medicine; Referring Provider Internal Medicine Endocrinology, Diabetes & Metabolism; Visit Provider Internal Medicine Endocrinology, Diabetes & Metabolism
DX: E11.9 Type 2 diabetes mellitus without complications (principal); Z79.899 Other long term (current) drug therapy; E78.2 Mixed hyperlipidemia; I10 Essential (primary) hypertension
CPT/HCPCS: 36415; 80053; 82043; 82570; 83036; 83735

== ENCOUNTER → 2019-10-07 07:06 | Outpatient (CLI) | payer BC, SELFPAY ==
[2019-10-08 13:08] LABS: Hemoglobin A1c 4.8 % (4.2-6.3)
[2019-10-08 13:11] LABS: AST(SGOT) 31 U/L (15-37); Alanine Aminotransfer ALT/SGPT 53 U/L (13-56); Albumin, Serum 3.7 g/dL (3.2-5.0); Alkaline Phosphatase 61 U/L (45-117); Anion Gap 7 (5-15); BUN 9 mg/dL (7-18); BUN/Creat Ratio 10.9 RATIO (10-20); Bilirubin, Direct 0.14 mg/dL (0.00-0.30); Calcium,Total 9.4 mg/dL (8.5-10.1); Chloride 104 mmol/L (98-107); Creatinine, Serum 0.83 mg/dL (0.55-1.02); EST Glomerular Filtration Rate 77 mL/min (>60); Est Glom Filt Rate - Afr Amer 93 mL/min (>60); Globulin 3.7 g/dL (2.2-4.2); Glucose 77 mg/dL (74-106); Potassium 3.9 mmol/L (3.5-5.1); Protein, Total 7.4 g/dL (6.4-8.2); Sodium Level 137 mmol/L (136-145); Thyroid Stim Hormone (TSH) 2.26 uIU/mL (0.358-3.74)
[2019-10-08 13:22] LABS: 24HR UR TOTAL VOLUME 2575 ml; Calcium Urine pH Range 1; Urine Calcium (Random) < 5.0 (Not Estab.)
[2019-10-08 13:45] LABS: (24 HR) Urine Calcium < 5.0 mg/24 HR (42.0-353.0)
== END ==
PROVIDERS: PCP Internal Medicine; Referring Provider Internal Medicine Endocrinology, Diabetes & Metabolism; Visit Provider Internal Medicine Endocrinology, Diabetes & Metabolism
DX: E11.9 Type 2 diabetes mellitus without complications (principal); E03.9 Hypothyroidism, unspecified; Z79.899 Other long term (current) drug therapy
CPT/HCPCS: 36415; 80053; 81050; 82248; 82340; 82570; 83036; 84443

== ENCOUNTER → 2020-02-09 06:06 | Outpatient (CLI) | payer BC, SELFPAY ==
[2020-02-09 08:35] LABS: ALB/GLOB Ratio 0.9 RATIO (0.9-2.4); AST(SGOT) 32 U/L (15-37); Alanine Aminotransfer ALT/SGPT 43 U/L (13-56); Albumin, Serum 3.4 g/dL (3.2-5.0); Alkaline Phosphatase 59 U/L (45-117); Anion Gap 9 (5-15); BUN 14 mg/dL (7-18); BUN/Creat Ratio 19.6 RATIO (10-20); Calcium,Total 9.4 mg/dL (8.5-10.1); Chloride 102 mmol/L (98-107); Cholesterol 173 mg/dL (200); Creatinine, Serum 0.71 mg/dL (0.55-1.02); EST Glomerular Filtration Rate 91 mL/min (>60); Est Glom Filt Rate - Afr Amer 111 mL/min (>60); Globulin 3.8 g/dL (2.2-4.2); Glucose 79 mg/dL (74-106); High Density Lipoprotein 59 mg/dL; Protein, Total 7.2 g/dL (6.4-8.2); Sodium Level 138 mmol/L (136-145); Triglycerides 132 mg/dL; Very Low Density Lipoprotein 26 mg/dL (5-40)
[2020-02-09 08:41] LABS: Vitamin D,25 Hydroxy 62.2 ng/mL
== END ==
PROVIDERS: PCP Internal Medicine; Referring Provider Internal Medicine Endocrinology, Diabetes & Metabolism; Visit Provider Internal Medicine Endocrinology, Diabetes & Metabolism
DX: E11.65 Type 2 diabetes mellitus with hyperglycemia (principal); I10 Essential (primary) hypertension; E78.2 Mixed hyperlipidemia; Z79.899 Other long term (current) drug therapy
CPT/HCPCS: 36415; 80053; 80061; 82306

== ENCOUNTER → 2020-02-12 | Outpatient (CLI) | payer BC, SELFPAY ==
[2020-02-12 13:52] LABS: (24 HR) Urine Calcium 178.4 mg/24 HR (42.0-353.0); 24HR UR TOTAL VOLUME 2050 ml; Calcium Urine pH Range 1; Urine Calcium (Random) 8.7 (Not Estab.)
== END | disposition home or self-care (01) ==
PROVIDERS: PCP Internal Medicine; Referring Provider Internal Medicine Endocrinology, Diabetes & Metabolism; Visit Provider Internal Medicine Endocrinology, Diabetes & Metabolism
DX: E11.65 Type 2 diabetes mellitus with hyperglycemia (principal); I10 Essential (primary) hypertension; E78.2 Mixed hyperlipidemia; Z79.899 Other long term (current) drug therapy
CPT/HCPCS: 81050; 82340

== ENCOUNTER → 2020-03-14 06:55 | Outpatient (CLI) | payer BC, SELFPAY ==
[2020-03-14 07:41] LABS: AST(SGOT) 35 U/L (15-37); Alanine Aminotransfer ALT/SGPT 49 U/L (13-56); Albumin, Serum 3.2 g/dL (3.2-5.0); Alkaline Phosphatase 54 U/L (45-117); Bilirubin, Direct 0.12 mg/dL (0.00-0.30); Globulin 3.7 g/dL (2.2-4.2); Protein, Total 6.9 g/dL (6.4-8.2)
== END ==
PROVIDERS: PCP Internal Medicine
DX: Z79.899 Other long term (current) drug therapy (principal)
CPT/HCPCS: 36415; 80076

== ENCOUNTER → 2020-04-23 13:51 | Outpatient (CLI) | payer BC, SELFPAY ==
--- NOTE | 2020-04-23 13:58 | RAD_ITS ---
STUDY: X-RAY - SACRUM/COCCYX REASON FOR EXAM: Female, 54 years old. LBP TECHNIQUE: 3 view(s) of the sacrum and coccyx were obtained. COMPARISON: None. FINDINGS: There is degenerative arthrosis of the bilateral sacroiliac joints. Normal visualized sacral ala and fused sacral bodies. Normal sacrococcygeal junction with a normal angulation. Normal coccygeal segments. The presacral soft tissue structures are unremarkable. RAD/Sacrum-Coccyx min 2 Views IMPRESSION: Mild degree of degenerative changes of the sacroiliac joints bilaterally. Electronically Signed: Selwyn Guaman, at 15:53 EDT , Service support ,
--- NOTE | 2020-04-23 13:58 | RAD_ITS ---
STUDY: X-RAY - PELVIS REASON FOR EXAM: Female, 54 years old. PELVIS PAIN TECHNIQUE: One view of the pelvis was obtained. COMPARISON: None. FINDINGS: There is a non-specific bowel gas pattern. There are multiple calcified phleboliths. There is narrowing with cortical sclerosis and osteophyte formation of the sacroiliac joint consistent with degenerative osteoarthritic changes. Normal visualized bilateral superior and inferior pubic rami. Normal pubic symphysis. Normal ischial tuberosities. Normal visualized right femoral head. Normal right acetabulum. There is mild articular joint space narrowing of the right hip. Normal visualized left femoral head. Normal left acetabulum. There is mild articular joint space narrowing of the left hip. RAD/Pelvis 1 or 2 Views IMPRESSION: Mild degree of joint space narrowing involving both hip joints. Electronically Signed: Selwyn Guaman, at 15:52 EDT , Service support ,
== END ==
PROVIDERS: PCP Internal Medicine; Referring Provider Anesthesiology Pain Medicine; Visit Provider Anesthesiology Pain Medicine
DX: M53.3 Sacrococcygeal disorders, not elsewhere classified (principal)
CPT/HCPCS: 72170; 72220

== ENCOUNTER → 2020-05-11 07:16 | Outpatient (CLI) | payer BC, SELFPAY ==
[2020-05-11 08:52] LABS: Anion Gap 5 (5-15); BUN 8 mg/dL (7-18); BUN/Creat Ratio 12.6 RATIO (10-20); Calcium,Total 9.2 mg/dL (8.5-10.1); Chloride 109 mmol/L (98-107); Creatinine, Serum 0.64 mg/dL (0.55-1.02); EST Glomerular Filtration Rate 104 mL/min (>60); Est Glom Filt Rate - Afr Amer 126 mL/min (>60); Glucose 97 mg/dL (74-106); Potassium 3.9 mmol/L (3.5-5.1); Sodium Level 141 mmol/L (136-145)
[2020-05-11 08:53] LABS: Hemoglobin A1c 4.2 % (3.8-5.6)
== END ==
PROVIDERS: PCP Internal Medicine; Referring Provider Internal Medicine Endocrinology, Diabetes & Metabolism; Visit Provider Internal Medicine Endocrinology, Diabetes & Metabolism
DX: E11.9 Type 2 diabetes mellitus without complications (principal); E78.2 Mixed hyperlipidemia; Z79.899 Other long term (current) drug therapy; I10 Essential (primary) hypertension
CPT/HCPCS: 36415; 80048; 83036; 84439; 84443

== ENCOUNTER → 2020-05-23 06:54 | Outpatient (CLI) | payer BC, SELFPAY ==
[2020-05-23 07:43] LABS: Erythrocyte Sedimentation Rate 4 mm/hr (0-30)
[2020-05-23 07:45] LABS: Absolute Lymphocyte Count 1.82 X10^3/uL (0.83-4.51); Absolute Neutrophil Count 3.3 X10^3/uL (2.0-7.7); Basophil# 0.04 X10^3/uL; Basophil% 0.7 % (0-1); Eosinophil# 0.09 X10^3/uL; Eosinophils% 1.6 % (0-5); Hematocrit 41.5 % (37-47); Hemoglobin 13.4 g/dL (12.0-15.0); Lymphocyte # 1.82 X10^3/ul (4.0); Lymphocyte % 31.9 % (19-41); Mean Corp Hgb Conc 32.3 g/dL (32-36); Mean Corpuscular Hgb 32.4 pg (27.0-32.0); Mean Corpuscular Volume 100.5 fL (81-99); Mean Platelet Vol. 10.5 fl (6.2-12.0); Monocyte# 0.47 X10^3/uL; Monocyte% 8.2 % (0-10); NRBC Flagged by Analyzer 0 % (0-5); Neutrophil # 3.27 X10^3/uL (2.7-7.7); Neutrophil % 57.2 % (47-70); Platelet Count 310 K/mm3 (150-450); RBC Distribution Width CV 13.4 % (11.6-14.6); RBC Distribution Width SD 49.1 fl (35.1-43.9); Red Blood Count 4.13 M/mm3 (4.2-5.4); White Blood Count 5.7 K/mm3 (4.4-11.0)
[2020-05-23 08:21] LABS: ALB/GLOB Ratio 1.1 RATIO (0.9-2.4); AST(SGOT) 31 U/L (15-37); Alanine Aminotransfer ALT/SGPT 47 U/L (13-56); Albumin, Serum 4.1 g/dL (3.2-5.0); Alkaline Phosphatase 68 U/L (45-117); Anion Gap 7 (5-15); BUN 8 mg/dL (7-18); BUN/Creat Ratio 10.9 RATIO (10-20); CRP 3.23 mg/L (0.0-3.0); Calcium,Total 9.6 mg/dL (8.5-10.1); Chloride 109 mmol/L (98-107); Creatinine, Serum 0.74 mg/dL (0.55-1.02); EST Glomerular Filtration Rate 88 mL/min (>60); Est Glom Filt Rate - Afr Amer 107 mL/min (>60); Globulin 3.6 g/dL (2.2-4.2); Glucose 93 mg/dL (74-106); Potassium 4.1 mmol/L (3.5-5.1); Protein, Total 7.7 g/dL (6.4-8.2); Sodium Level 141 mmol/L (136-145)
== END ==
PROVIDERS: PCP Internal Medicine
DX: Z79.899 Other long term (current) drug therapy (principal)
CPT/HCPCS: 36415; 80053; 85025; 85652; 86140

== ENCOUNTER → 2020-07-12 05:59 | Outpatient (CLI) | payer BC, SELFPAY ==
[2020-07-12 07:58] LABS: Microalbumin,Random Urine 14.5 mg/L (NO RANGE EST.); Microalbumin:Creatinine Ratio 8.9 mg/g CRE (<30 mg/g CRE)
[2020-07-12 08:02] LABS: AST(SGOT) 27 U/L (15-37); Alanine Aminotransfer ALT/SGPT 43 U/L (13-56); Albumin, Serum 3.9 g/dL (3.2-5.0); Alkaline Phosphatase 75 U/L (45-117); Anion Gap 7 (5-15); BUN 16 mg/dL (7-18); BUN/Creat Ratio 19.7 RATIO (10-20); Calcium,Total 9.4 mg/dL (8.5-10.1); Chloride 101 mmol/L (98-107); Creatinine, Serum 0.81 mg/dL (0.55-1.02); EST Glomerular Filtration Rate 78 mL/min (>60); Est Glom Filt Rate - Afr Amer 95 mL/min (>60); Globulin 4.1 g/dL (2.2-4.2); Glucose 96 mg/dL (74-106); Potassium 4.5 mmol/L (3.5-5.1); Sodium Level 137 mmol/L (136-145)
[2020-07-12 08:27] LABS: Vitamin B12 466 pg/mL (211-911)
[2020-07-12 10:34] LABS: Hemoglobin A1c 4.2 % (3.8-5.6)
== END ==
PROVIDERS: PCP Internal Medicine; Referring Provider Internal Medicine Endocrinology, Diabetes & Metabolism; Visit Provider Internal Medicine Endocrinology, Diabetes & Metabolism
DX: E11.65 Type 2 diabetes mellitus with hyperglycemia (principal); E55.9 Vitamin D deficiency, unspecified; Z79.899 Other long term (current) drug therapy
CPT/HCPCS: 36415; 80053; 82043; 82306; 82570; 82607; 83036

== ENCOUNTER → 2020-08-02 07:56 | Outpatient (CLI) | payer BC, SELFPAY ==
--- NOTE | 2020-08-02 08:08 | BI_ITS ---
MAMMOGRAPHY - BILATERAL SCREENING REASON FOR EXAM: Female, 54 years old. Routine annual screening examination. PERTINENT HISTORY: Mother with breast cancer. TECHNIQUE: Digital bilateral breast chuck (3D mammographic acquisition) in the CC and MLO projections. 2-D mediolateral oblique (MLO) and craniocaudad (CC) views of both breasts were obtained. CAD: Full Field Digital Mammography with Computer Added Detection was performed. COMPARISON: Comparison is made with prior study dated 07/14/2019 and 07/13/2018. FINDINGS: Breast Composition: The breasts are almost entirely fatty. There are no dominant masses or suspicious calcifications. Stable benign-appearing small bilateral axillary lymph nodes. No other significant abnormalities are identified. There has been no significant change since the prior study. BI/SCREEN MAMM (CAD) W/CHUCK BILAT IMPRESSION: Stable bilateral screening mammogram. Yearly follow-up mammogram recommended. (A) ASSESSMENT CATEGORY: BIRADS Category 2: Benign. A letter regarding these results will be sent to the patient by the facility within 30 days. Approximately 10% of breast cancers are not detected by mammography. A normal mammogram should not delay biopsy of a clinically suspicious abnormality. [id number] Electronically Signed: Selwyn Guaman, at 9:07 EST , Service support ,
== END ==
PROVIDERS: PCP Internal Medicine; Referring Provider Obstetrics & Gynecology; Visit Provider Obstetrics & Gynecology
DX: Z12.31 Encounter for screening mammogram for malignant neoplasm of breast (principal)
CPT/HCPCS: 77063; 77067

== ENCOUNTER → 2020-11-08 06:05 | Outpatient (CLI) | payer OTHER, SELFPAY ==
[2020-11-08 07:55] LABS: Color, Urine Yellow (Yellow); Glucose, Dipstick Normal (Normal); Ketone-Dipstick Negative (Negative); Leukocyte Esterase-Dipstick Negative /ul (Negative); Nitrite-Dipstick Negative (Negative); Occult Blood-Urine Negative /ul (Negative); Protein-Dipstick Negative (Negative); Specific Gravity, Urine 1.005 (1.002-1.030); Urine Bilirubin Dipstick Negative (Negative); Urine Clarity Clear (Clear); Urine Urobilinogen Normal (Normal)
[2020-11-08 07:58] LABS: Absolute Neutrophil Count 2.1 X10^3/uL (2.0-7.7); Basophil# 0.03 X10^3/uL; Basophil% 0.7 % (0-1); Hematocrit 41.6 % (37-47); Lymphocyte % 43.8 % (19-41); Mean Corp Hgb Conc 31.3 g/dL (32-36); Mean Corpuscular Hgb 30.8 pg (27.0-32.0); Mean Corpuscular Volume 98.6 fL (81-99); Mean Platelet Vol. 9.8 fl (6.2-12.0); Monocyte# 0.41 X10^3/uL; NRBC Flagged by Analyzer 0 % (0-5); Neutrophil # 2.11 X10^3/uL (2.7-7.7); Neutrophil % 46.1 % (47-70); Platelet Count 272 K/mm3 (150-450); RBC Distribution Width CV 12.8 % (11.6-14.6); RBC Distribution Width SD 45.8 fl (35.1-43.9); Red Blood Count 4.22 M/mm3 (4.2-5.4); White Blood Count 4.6 K/mm3 (4.4-11.0)
[2020-11-08 08:10] LABS: Hemoglobin A1c 4.6 % (3.8-5.6)
[2020-11-08 08:13] LABS: Erythrocyte Sedimentation Rate 13 mm/hr (0-30)
[2020-11-08 08:23] LABS: AST(SGOT) 31 U/L (15-37); Alanine Aminotransfer ALT/SGPT 52 U/L (13-56); Albumin, Serum 3.6 g/dL (3.2-5.0); Alkaline Phosphatase 75 U/L (45-117); BUN 13 mg/dL (7-18); BUN/Creat Ratio 17.8 RATIO (10-20); Calcium,Total 9.3 mg/dL (8.5-10.1); Creatinine, Serum 0.73 mg/dL (0.55-1.02); EST Glomerular Filtration Rate 89 mL/min (>60); Est Glom Filt Rate - Afr Amer 107 mL/min (>60); Globulin 3.6 g/dL (2.2-4.2); Glucose 92 mg/dL (74-106); Protein, Total 7.2 g/dL (6.4-8.2)
[2020-11-08 08:24] LABS: Anion Gap 8 (5-15); CRP < 2.90 mg/L (0.0-3.0); Chloride 103 mmol/L (98-107); Potassium 3.8 mmol/L (3.5-5.1); Sodium Level 139 mmol/L (136-145)
[2020-11-08 08:40] LABS: Vitamin B12 1333 pg/mL (211-911)
[2020-11-09 09:20] LABS: Complement C3 163 mg/dL (82-167)
[2020-11-11 08:57] LABS: Anti-dsDNA Ab <1 IU/mL (0-9)
== END ==
PROVIDERS: PCP Internal Medicine; Referring Provider Internal Medicine Endocrinology, Diabetes & Metabolism; Visit Provider Internal Medicine Endocrinology, Diabetes & Metabolism
DX: E11.9 Type 2 diabetes mellitus without complications (principal); Z79.899 Other long term (current) drug therapy; I10 Essential (primary) hypertension; E78.2 Mixed hyperlipidemia; M35.01 Sjogren syndrome with keratoconjunctivitis
CPT/HCPCS: 36415; 80053; 81002; 82607; 83036; 85025; 85652; 86140; 86160; 86225

== ENCOUNTER → 2021-02-28 06:01 | Outpatient (CLI) | payer OTHER, SELFPAY ==
[2021-02-28 07:52] LABS: AST(SGOT) 34 U/L (15-37); Alanine Aminotransfer ALT/SGPT 53 U/L (13-56); Albumin, Serum 3.6 g/dL (3.2-5.0); Alkaline Phosphatase 93 U/L (45-117); Anion Gap 8 (5-15); BUN 13 mg/dL (7-18); BUN/Creat Ratio 17.8 RATIO (10-20); Calcium,Total 8.8 mg/dL (8.5-10.1); Chloride 106 mmol/L (98-107); Creatinine, Serum 0.73 mg/dL (0.55-1.02); EST Glomerular Filtration Rate 88 mL/min (>60); Est Glom Filt Rate - Afr Amer 107 mL/min (>60); Globulin 3.6 g/dL (2.2-4.2); Glucose 97 mg/dL (74-106); Potassium 3.9 mmol/L (3.5-5.1); Protein, Total 7.2 g/dL (6.4-8.2); Sodium Level 140 mmol/L (136-145); Thyroid Stim Hormone (TSH) 1.66 uIU/mL (0.358-3.74)
[2021-02-28 09:05] LABS: Hemoglobin A1c 4.7 % (3.8-5.6)
[2021-02-28 09:26] LABS: Vitamin D,25 Hydroxy 57.2 ng/mL
== END ==
PROVIDERS: PCP Internal Medicine; Referring Provider Internal Medicine Endocrinology, Diabetes & Metabolism; Visit Provider Internal Medicine Endocrinology, Diabetes & Metabolism
DX: E11.9 Type 2 diabetes mellitus without complications (principal); I10 Essential (primary) hypertension; E78.2 Mixed hyperlipidemia; E55.9 Vitamin D deficiency, unspecified
CPT/HCPCS: 36415; 80053; 82306; 83036; 84439; 84443

== ENCOUNTER → 2021-04-23 13:46 | Outpatient (CLI) | payer OTHER, SELFPAY ==
--- NOTE | 2021-04-23 13:50 | CT_ITS ---
STUDY: CT SOFT TISSUE NECK WITH AND WITHOUT CONTRAST REASON FOR EXAM: Female, 55 years old. L SUBMANDIBULAR GLAND,ACUTE SIALOADENITIS RADIATION DOSAGE (If Supplied By Facility): CTDIvol = ( 19.62 ) mGy, DLP = ( 716.62 ) mGycm TECHNIQUE: The patient was scanned in a multi-detector CT scanner. High resolution transaxial imaging was performed prior to and following intravenous administration of IV 100ML ISOVUE 370. Sagittal and coronal images were reconstructed. Individualized dose optimization techniques were used for this CT. COMPARISON: None. FINDINGS: Mild degree of edematous swelling of the left parotid gland. No calcific density is seen. 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 Normal bilateral parapharyngeal spaces. Normal bilateral carotid spaces. Normal bilateral sublingual and submandibular glands and spaces. Normal visualized nasopharynx. Normal retropharyngeal space. Normal perivertebral space. Normal visualized bilateral faucial tonsils. The visualized tongue, tongue base and oropharynx are normal. The visualized cervical lymph nodes (levels I-) are within normal size limits, and maintain normal morphology. There is no demonstrated solid or cystic mass lesion. There is no abnormal contrast enhancement. Normal epiglottis, bilateral vallecula and hypopharynx. The pre-epiglottic and paraglottic adipose spaces are normal. Normal visualized bilateral piriform sinuses, aryepiglottic folds, vocal cords, and arytenoid-cricoid articulations. Normal subglottic trachea. Normal bilateral lobes of the thyroid gland. Normal visualized pulmonary apices. Normal visualized paranasal sinuses. There is degenerative changes of the cervical spine. Prior anterior fusion at the C5-C6 level. CT/Soft Tissue Neck WITH Contrast IMPRESSION: Mild degree of edematous swelling of the left parotid gland inferiorly. No abnormal calcification is seen. Electronically Signed: Selwyn Guaman MD at 15:42 EDT , Service support ,
[2021-04-23 14:11] LABS: CREATININE FINGERSTICK 0.9 mg/dL (0.55-1.02); EGFR FINGERSTICK > 60.0000 mL/min (>60)
== END ==
PROVIDERS: PCP Internal Medicine; Referring Provider Otolaryngology Otolaryngology/Facial Plastic Surgery; Visit Provider Otolaryngology Otolaryngology/Facial Plastic Surgery
DX: K11.21 Acute sialoadenitis (principal)
CPT/HCPCS: 70491; Q9967; A4216

== ENCOUNTER → 2021-05-20 07:57 | Outpatient (CLI) | payer OTHER, SELFPAY ==
[2021-05-20 09:24] LABS: Anion Gap 5 (5-15); BUN 9 mg/dL (7-18); BUN/Creat Ratio 14.3 RATIO (10-20); Calcium,Total 8.8 mg/dL (8.5-10.1); Chloride 108 mmol/L (98-107); Creatinine, Serum 0.63 mg/dL (0.55-1.02); EST Glomerular Filtration Rate 105 mL/min (>60); Est Glom Filt Rate - Afr Amer 127 mL/min (>60); Glucose 100 mg/dL (74-106); Iron 94 ug/dL (50-170); Iron Binding Capacity,Total 304 ug/dL (250-450); PERCENT IRON SATURATION 30.9 % (15.0-55.0); Potassium 4.2 mmol/L (3.5-5.1); Sodium Level 140 mmol/L (136-145)
== END ==
PROVIDERS: PCP Internal Medicine; Referring Provider Internal Medicine Endocrinology, Diabetes & Metabolism; Visit Provider Internal Medicine Endocrinology, Diabetes & Metabolism
DX: I10 Essential (primary) hypertension (principal); R53.83 Other fatigue; Z79.899 Other long term (current) drug therapy
CPT/HCPCS: 36415; 80048; 83540; 83550

== ENCOUNTER → 2021-07-04 08:11 | Outpatient (CLI) | payer OTHER, SELFPAY ==
[2021-07-04 11:13] LABS: Anion Gap 6 (5-15); BUN 14 mg/dL (7-18); BUN/Creat Ratio 19.1 RATIO (10-20); Calcium,Total 9.4 mg/dL (8.5-10.1); Chloride 105 mmol/L (98-107); Creatinine, Serum 0.73 mg/dL (0.55-1.02); EST Glomerular Filtration Rate 88 mL/min (>60); Est Glom Filt Rate - Afr Amer 107 mL/min (>60); Glucose 90 mg/dL (74-106); Potassium 4.7 mmol/L (3.5-5.1); Sodium Level 138 mmol/L (136-145)
== END ==
PROVIDERS: PCP Internal Medicine; Referring Provider Internal Medicine Endocrinology, Diabetes & Metabolism; Visit Provider Internal Medicine Endocrinology, Diabetes & Metabolism
DX: I10 Essential (primary) hypertension (principal)
CPT/HCPCS: 36415; 80048

== ENCOUNTER → 2021-08-11 06:22 | Outpatient (CLI) | payer OTHER, SELFPAY ==
[2021-08-11 07:26] LABS: ALB/GLOB Ratio 0.9 RATIO (0.9-2.4); AST(SGOT) 28 U/L (15-37); Alanine Aminotransfer ALT/SGPT 45 U/L (13-56); Albumin, Serum 3.5 g/dL (3.2-5.0); Alkaline Phosphatase 101 U/L (45-117); Anion Gap 8 (5-15); BUN 11 mg/dL (7-18); BUN/Creat Ratio 14.3 RATIO (10-20); Calcium,Total 9.1 mg/dL (8.5-10.1); Chloride 104 mmol/L (98-107); Cholesterol 216 mg/dL (200); Creatinine, Serum 0.77 mg/dL (0.55-1.02); EST Glomerular Filtration Rate 84 mL/min (>60); Est Glom Filt Rate - Afr Amer 101 mL/min (>60); Glucose 112 mg/dL (74-106); High Density Lipoprotein 40 mg/dL; Potassium 4.2 mmol/L (3.5-5.1); Protein, Total 7.5 g/dL (6.4-8.2); Sodium Level 137 mmol/L (136-145); Triglycerides 215 mg/dL; Very Low Density Lipoprotein 43 mg/dL (5-40)
[2021-08-11 08:25] LABS: Hemoglobin A1c 4.9 % (3.8-5.6)
[2021-08-11 09:31] LABS: Microalbumin:Creatinine Ratio 7.9 mg/g CRE (<30 mg/g CRE)
== END ==
PROVIDERS: PCP Internal Medicine; Referring Provider Internal Medicine Endocrinology, Diabetes & Metabolism; Visit Provider Internal Medicine Endocrinology, Diabetes & Metabolism
DX: E11.9 Type 2 diabetes mellitus without complications (principal); Z79.899 Other long term (current) drug therapy; I10 Essential (primary) hypertension; E78.2 Mixed hyperlipidemia; R53.83 Other fatigue
CPT/HCPCS: 36415; 80053; 80061; 82043; 82570; 83036

== ENCOUNTER → 2021-08-23 07:29 | Outpatient (CLI) | payer OTHER, SELFPAY ==
--- NOTE | 2021-08-23 07:32 | BI_ITS ---
MAMMOGRAPHY - BILATERAL SCREENING REASON FOR EXAM: Female, 55 years old. Routine annual screening examination. PERTINENT HISTORY: Mother with breast cancer. TECHNIQUE: Digital bilateral breast chuck (3D mammographic acquisition) in the CC and MLO projections. 2-D mediolateral oblique (MLO) and craniocaudad (CC) views of both breasts were obtained. CAD: Full Field Digital Mammography with Computer Added Detection was performed. COMPARISON: Comparison is made with prior examination dated 08/02/2020 and 07/14/2019. FINDINGS: Breast Composition: The breasts are almost entirely fatty. There are no dominant masses or suspicious calcifications. Stable small benign appearing bilateral axillary lymph nodes. No other significant abnormalities are identified. There has been no significant change since the prior study. BI/SCRN MAMM (CAD)W/CHUCK BILAT IMPRESSION: Stable bilateral screening mammogram. Yearly follow-up mammogram recommended. (A) ASSESSMENT CATEGORY: BIRADS Category 2: Benign. A letter regarding these results will be sent to the patient by the facility within 30 days. Approximately 10% of breast cancers are not detected by mammography. A normal mammogram should not delay biopsy of a clinically suspicious abnormality. [id number] Electronically Signed: Selwyn Guaman MD at 8:30 EST , Service support ,
== END ==
PROVIDERS: PCP Internal Medicine; Visit Provider Obstetrics & Gynecology
DX: Z12.31 Encounter for screening mammogram for malignant neoplasm of breast (principal)
CPT/HCPCS: 77063; 77067

== ENCOUNTER → 2021-11-01 08:41 | Outpatient (CLI) | payer OTHER, SELFPAY ==
[2021-11-01 09:26] LABS: Hematocrit 43.2 % (37-47); Hemoglobin 14.1 g/dL (12.0-15.0); Mean Corp Hgb Conc 32.6 g/dL (32-36); Mean Corpuscular Hgb 31.1 pg (27.0-32.0); Mean Corpuscular Volume 95.4 fL (81-99); Mean Platelet Vol. 9.7 fl (6.2-12.0); Platelet Count 282 K/mm3 (150-450); RBC Distribution Width CV 12.1 % (11.6-14.6); RBC Distribution Width SD 42.5 fl (35.1-43.9); Red Blood Count 4.53 M/mm3 (4.2-5.4); White Blood Count 5.2 K/mm3 (4.4-11.0)
[2021-11-01 10:29] LABS: AST(SGOT) 27 U/L (15-37); Alanine Aminotransfer ALT/SGPT 41 U/L (13-56); Albumin, Serum 3.7 g/dL (3.2-5.0); Alkaline Phosphatase 93 U/L (45-117); Anion Gap 8 (5-15); BUN 13 mg/dL (7-18); Calcium,Total 8.8 mg/dL (8.5-10.1); Chloride 107 mmol/L (98-107); Cholesterol 174 mg/dL (200); Creatinine, Serum 0.81 mg/dL (0.55-1.02); EST Glomerular Filtration Rate 78 mL/min (>60); Est Glom Filt Rate - Afr Amer 95 mL/min (>60); Ferritin 99 ng/mL (8-252); Globulin 3.6 g/dL (2.2-4.2); Glucose 95 mg/dL (74-106); High Density Lipoprotein 37 mg/dL; Iron 112 ug/dL (50-170); Potassium 3.5 mmol/L (3.5-5.1); Protein, Total 7.3 g/dL (6.4-8.2); Sodium Level 139 mmol/L (136-145); Thyroid Stim Hormone (TSH) 1.68 uIU/mL (0.358-3.74); Triglycerides 166 mg/dL; Very Low Density Lipoprotein 33 mg/dL (5-40)
[2021-11-01 10:43] LABS: Hemoglobin A1c 4.9 % (3.8-5.6)
[2021-11-03 10:06] LABS: Vitamin B12 > 2000 pg/mL (211-911)
[2021-11-17 09:07] LABS: Vitamin B1, Thiamine 93.3 nmol/L (66.5-200.0)
[2021-11-17 12:04] LABS: Zinc, Plasma or Serum 97 ug/dL (44-115)
== END ==
PROVIDERS: PCP Internal Medicine
DX: E61.7 Deficiency of multiple nutrient elements (principal); E66.01 Morbid (severe) obesity due to excess calories; Z68.41 Body mass index [BMI] 40.0-44.9, adult; G47.33 Obstructive sleep apnea (adult) (pediatric); I10 Essential (primary) hypertension; E78.5 Hyperlipidemia, unspecified; M54.9 Dorsalgia, unspecified
CPT/HCPCS: 36415; 80053; 80061; 82306; 82607; 82728; 82746; 83036; 83540; 83735; 84425; 84443; 84630; 85027

== ENCOUNTER 2021-12-04 20:22 | Outpatient (CLI) | payer OTHER, SELFPAY | END 2021-12-04 23:59 | disposition home or self-care (01) | PROVIDERS: PCP Internal Medicine; Visit Provider Psychiatry & Neurology Sleep Medicine | DX: G47.33 Obstructive sleep apnea (adult) (pediatric) (principal); G47.00 Insomnia, unspecified | CPT/HCPCS: 95811 ==

== ENCOUNTER 2021-12-12 06:12 | Outpatient (CLI) | payer OTHER, SELFPAY ==
[2021-12-12 07:37] LABS: ALB/GLOB Ratio 1.1 RATIO (0.9-2.4); AST(SGOT) 25 U/L (15-37); Alanine Aminotransfer ALT/SGPT 40 U/L (13-56); Albumin, Serum 3.9 g/dL (3.2-5.0); Alkaline Phosphatase 106 U/L (45-117); Anion Gap 8 (5-15); BUN 13 mg/dL (7-18); BUN/Creat Ratio 16.5 RATIO (10-20); Calcium,Total 9.1 mg/dL (8.5-10.1); Chloride 104 mmol/L (98-107); Cholesterol 196 mg/dL (200); Creatinine, Serum 0.79 mg/dL (0.55-1.02); EST Glomerular Filtration Rate 81 mL/min (>60); Est Glom Filt Rate - Afr Amer 98 mL/min (>60); Globulin 3.7 g/dL (2.2-4.2); Glucose 117 mg/dL (74-106); High Density Lipoprotein 36 mg/dL; Potassium 3.9 mmol/L (3.5-5.1); Protein, Total 7.6 g/dL (6.4-8.2); Sodium Level 137 mmol/L (136-145); Thyroid Stim Hormone (TSH) 1.62 uIU/mL (0.358-3.74); Triglycerides 240 mg/dL; Very Low Density Lipoprotein 48 mg/dL (5-40)
[2021-12-12 09:00] LABS: Hemoglobin A1c 4.8 % (3.8-5.6)
== END 2021-12-12 23:59 | disposition home or self-care (01) ==
LOC: LAB 06:14
PROVIDERS: PCP Internal Medicine; Referring Provider Internal Medicine Endocrinology, Diabetes & Metabolism; Visit Provider Internal Medicine Endocrinology, Diabetes & Metabolism
DX: E11.9 Type 2 diabetes mellitus without complications (principal); E78.2 Mixed hyperlipidemia; I10 Essential (primary) hypertension; Z79.899 Other long term (current) drug therapy
CPT/HCPCS: 36415; 80053; 80061; 83036; 84439; 84443

== ENCOUNTER → 2022-01-14 | Outpatient (CLI) | payer OTHER, SELFPAY | END | disposition home or self-care (01) | LOC: SL 20:15 | PROVIDERS: PCP Internal Medicine; Visit Provider Psychiatry & Neurology Sleep Medicine | DX: G47.33 Obstructive sleep apnea (adult) (pediatric) (principal) | CPT/HCPCS: 95811 ==

== ENCOUNTER → 2022-02-20 | Outpatient (CLI) | payer OTHER, SELFPAY ==
[2022-02-20 08:30] LABS: ALB/GLOB Ratio 0.9 RATIO (0.9-2.4); AST(SGOT) 17 U/L (15-37); Alanine Aminotransfer ALT/SGPT 31 U/L (13-56); Albumin, Serum 3.5 g/dL (3.2-5.0); Alkaline Phosphatase 99 U/L (45-117); Anion Gap 8 (5-15); BUN 22 mg/dL (7-18); BUN/Creat Ratio 26.8 RATIO (10-20); Calcium,Total 9.2 mg/dL (8.5-10.1); Chloride 101 mmol/L (98-107); Creatinine, Serum 0.82 mg/dL (0.55-1.02); EST Glomerular Filtration Rate 77 mL/min (>60); Est Glom Filt Rate - Afr Amer 93 mL/min (>60); Globulin 3.7 g/dL (2.2-4.2); Glucose 94 mg/dL (74-106); Potassium 3.9 mmol/L (3.5-5.1); Protein, Total 7.2 g/dL (6.4-8.2); Sodium Level 137 mmol/L (136-145)
== END | disposition home or self-care (01) ==
LOC: LAB 06:51
PROVIDERS: PCP Internal Medicine; Referring Provider Internal Medicine Endocrinology, Diabetes & Metabolism; Visit Provider Internal Medicine Endocrinology, Diabetes & Metabolism
DX: I10 Essential (primary) hypertension (principal); Z79.899 Other long term (current) drug therapy
CPT/HCPCS: 36415; 80053

== ENCOUNTER → 2022-03-19 | Outpatient (CLI) | payer OTHER, SELFPAY ==
[2022-03-19 07:44] LABS: Erythrocyte Sedimentation Rate 17 mm/hr (0-30)
[2022-03-19 07:47] LABS: Absolute Lymphocyte Count 2.05 X10^3/uL (0.83-4.51); Basophil# 0.03 X10^3/uL; Basophil% 0.5 % (0-1); Hematocrit 40.3 % (37-47); Hemoglobin 12.6 g/dL (12.0-15.0); Lymphocyte # 2.05 X10^3/ul (0.83-4.51); Mean Corp Hgb Conc 31.3 g/dL (32-36); Mean Corpuscular Hgb 30.7 pg (27.0-32.0); Mean Corpuscular Volume 98.1 fL (81-99); Mean Platelet Vol. 10.1 fl (6.2-12.0); Monocyte# 0.46 X10^3/uL; NRBC Flagged by Analyzer 0 % (0-5); Neutrophil # 3.99 X10^3/uL (2.7-7.7); Neutrophil % 60.3 % (47-70); Platelet Count 277 K/mm3 (150-450); RBC Distribution Width CV 13.1 % (11.6-14.6); Red Blood Count 4.11 M/mm3 (4.2-5.4); White Blood Count 6.6 K/mm3 (4.4-11.0)
[2022-03-19 08:09] LABS: ALB/GLOB Ratio 0.9 RATIO (0.9-2.4); AST(SGOT) 23 U/L (15-37); Alanine Aminotransfer ALT/SGPT 29 U/L (13-56); Albumin, Serum 3.3 g/dL (3.2-5.0); Alkaline Phosphatase 94 U/L (45-117); Anion Gap 7 (5-15); BUN 10 mg/dL (7-18); BUN/Creat Ratio 14.1 RATIO (10-20); CRP < 2.90 mg/L (0.0-3.0); Calcium,Total 9.1 mg/dL (8.5-10.1); Chloride 104 mmol/L (98-107); Cholesterol 177 mg/dL (200); Creatinine, Serum 0.71 mg/dL (0.55-1.02); EST Glomerular Filtration Rate 91 mL/min (>60); Est Glom Filt Rate - Afr Amer 110 mL/min (>60); Globulin 3.6 g/dL (2.2-4.2); Glucose 106 mg/dL (74-106); High Density Lipoprotein 40 mg/dL; Potassium 3.7 mmol/L (3.5-5.1); Protein, Total 6.9 g/dL (6.4-8.2); Sodium Level 139 mmol/L (136-145); Triglycerides 191 mg/dL; Very Low Density Lipoprotein 38 mg/dL (5-40)
[2022-03-19 09:19] LABS: Vitamin B12 883 pg/mL (211-911)
[2022-03-19 09:43] LABS: Hemoglobin A1c 5.1 % (3.8-5.6)
[2022-03-20 12:28] LABS: Anti-dsDNA Ab <1 IU/mL (0-9)
[2022-03-27 06:07] LABS: Aldosterone, Serum 3.5 ng/dL (0.0-30.0); Complement C3 176 mg/dL (82-167); PROEL- A/G Ratio 1.1 (0.7-1.7); PROEL- Albumin 3.4 g/dL (2.9-4.4); PROEL- Alpha-1 Globulin 0.3 g/dL (0.0-0.4); PROEL- Alpha-2 Globulin 0.9 g/dL (0.4-1.0); PROEL- Beta Globulin 1.2 g/dL (0.7-1.3); PROEL- Gamma Globulin 0.6 g/dL (0.4-1.8); PROEL- TOTAL PROTEIN 6.4 g/dL (6.0-8.5)
[2022-03-27 08:34] LABS: Renin, Plasma 6.402 ng/mL/hr (0.167-5.380)
== END | disposition home or self-care (01) ==
LOC: LAB 06:48
PROVIDERS: PCP Internal Medicine; Visit Provider Internal Medicine Rheumatology
DX: M35.01 Sjogren syndrome with keratoconjunctivitis (principal); E11.9 Type 2 diabetes mellitus without complications; I10 Essential (primary) hypertension; E78.2 Mixed hyperlipidemia; Z79.899 Other long term (current) drug therapy
CPT/HCPCS: 36415; 80053; 80061; 82088; 82607; 83036; 83735; 84165; 84244; 85025; 85652; 86140; 86160; 86225

== ENCOUNTER → 2022-04-04 | Outpatient (CLI) | payer OTHER, SELFPAY ==
[2022-04-07 17:15] LABS: H. PYLORI STOOL AG Negative (Negative)
== END | disposition home or self-care (01) ==
LOC: LABSPEC 07:17
PROVIDERS: PCP Internal Medicine; Referring Provider Physician Assistant; Visit Provider Physician Assistant
DX: K29.70 Gastritis, unspecified, without bleeding (principal)

== ENCOUNTER → 2022-06-26 | Outpatient (CLI) | payer OTHER, SELFPAY ==
[2022-06-26 07:17] LABS: Absolute Lymphocyte Count 2.01 X10^3/uL (0.83-4.51); Absolute Neutrophil Count 3.2 X10^3/uL (2.0-7.7); Basophil# 0.04 X10^3/uL; Basophil% 0.7 % (0-1); Eosinophil# 0.01 X10^3/uL; Eosinophils% 0.2 % (0-5); Hematocrit 41.5 % (37-47); Lymphocyte # 2.01 X10^3/ul (0.83-4.51); Lymphocyte % 33.8 % (19-41); Mean Corp Hgb Conc 31.3 g/dL (32-36); Mean Corpuscular Hgb 29.5 pg (27.0-32.0); Mean Corpuscular Volume 94.3 fL (81-99); Mean Platelet Vol. 9.9 fl (6.2-12.0); Monocyte# 0.56 X10^3/uL; Monocyte% 9.4 % (0-10); NRBC Flagged by Analyzer 0 % (0-5); Neutrophil # 3.16 X10^3/uL (2.7-7.7); Neutrophil % 53.2 % (47-70); Platelet Count 289 K/mm3 (150-450); RBC Distribution Width CV 13.5 % (11.6-14.6); RBC Distribution Width SD 47.1 fl (35.1-43.9); White Blood Count 5.9 K/mm3 (4.4-11.0)
[2022-06-26 08:05] LABS: Microalbumin,Random Urine < 5.0 mg/L (NO RANGE EST.)
[2022-06-26 08:21] LABS: ALB/GLOB Ratio 0.9 RATIO (0.9-2.4); AST(SGOT) 30 U/L (15-37); Alanine Aminotransfer ALT/SGPT 40 U/L (13-56); Albumin, Serum 3.6 g/dL (3.2-5.0); Alkaline Phosphatase 80 U/L (45-117); Anion Gap 10 (5-15); BUN 10 mg/dL (7-18); BUN/Creat Ratio 15.2 RATIO (10-20); Calcium,Total 9.1 mg/dL (8.5-10.1); Chloride 100 mmol/L (98-107); Creatinine, Serum 0.66 mg/dL (0.55-1.02); EST Glomerular Filtration Rate 99 mL/min (>60); Est Glom Filt Rate - Afr Amer 120 mL/min (>60); Globulin 3.8 g/dL (2.2-4.2); Glucose 123 mg/dL (74-106); Potassium 3.8 mmol/L (3.5-5.1); Protein, Total 7.4 g/dL (6.4-8.2); Sodium Level 139 mmol/L (136-145); Thyroid Stim Hormone (TSH) 1.88 uIU/mL (0.358-3.74)
[2022-06-26 08:38] LABS: Hemoglobin A1c 6.1 % (3.8-5.6)
[2022-06-26 09:33] LABS: Vitamin D,25 Hydroxy 47.7 ng/mL
== END | disposition home or self-care (01) ==
LOC: LAB 06:11
PROVIDERS: PCP Internal Medicine; Referring Provider Internal Medicine Endocrinology, Diabetes & Metabolism; Visit Provider Internal Medicine Endocrinology, Diabetes & Metabolism
DX: E11.65 Type 2 diabetes mellitus with hyperglycemia (principal); I10 Essential (primary) hypertension; E78.2 Mixed hyperlipidemia; E55.9 Vitamin D deficiency, unspecified; Z79.899 Other long term (current) drug therapy
CPT/HCPCS: 36415; 80053; 82043; 82306; 82570; 83036; 84439; 84443; 85025

== ENCOUNTER → 2022-09-29 | Outpatient (CLI) | payer OTHER, SELFPAY ==
[2022-09-29 07:42] LABS: Hematocrit 44.1 % (37-47); Hemoglobin 13.9 g/dL (12.0-15.0); Mean Corp Hgb Conc 31.5 g/dL (32-36); Mean Corpuscular Hgb 29.4 pg (27.0-32.0); Mean Corpuscular Volume 93.4 fL (81-99); Mean Platelet Vol. 10.2 fl (6.2-12.0); Platelet Count 313 K/mm3 (150-450); RBC Distribution Width CV 13.2 % (11.6-14.6); RBC Distribution Width SD 45.3 fl (35.1-43.9); Red Blood Count 4.72 M/mm3 (4.2-5.4); White Blood Count 6.5 K/mm3 (4.4-11.0)
[2022-09-29 08:08] LABS: Hemoglobin A1c 4.8 % (3.8-5.6)
[2022-09-29 08:18] LABS: Vitamin B12 > 2000 pg/mL (211-911)
[2022-09-29 08:27] LABS: ALB/GLOB Ratio 1.1 RATIO (0.9-2.4); AST(SGOT) 33 U/L (15-37); Alanine Aminotransfer ALT/SGPT 44 U/L (13-56); Albumin, Serum 4.2 g/dL (3.2-5.0); Alkaline Phosphatase 85 U/L (45-117); Anion Gap 8 (5-15); BUN 10 mg/dL (7-18); Calcium,Total 9.8 mg/dL (8.5-10.1); Chloride 99 mmol/L (98-107); Cholesterol 132 mg/dL (200); Creatinine, Serum 0.71 mg/dL (0.55-1.02); EST Glomerular Filtration Rate 91 mL/min (>60); Est Glom Filt Rate - Afr Amer 110 mL/min (>60); Globulin 3.8 g/dL (2.2-4.2); Glucose 103 mg/dL (74-106); High Density Lipoprotein 40 mg/dL; Magnesium 2.1 mg/dL (1.6-2.6); Potassium 3.1 mmol/L (3.5-5.1); Sodium Level 136 mmol/L (136-145); Triglycerides 138 mg/dL
[2022-09-29 08:28] LABS: Ferritin 99 ng/mL (8-252); Iron 67 ug/dL (50-170); T4 Free Direct 1.48 ng/dL (0.76-1.46); Very Low Density Lipoprotein 28 mg/dL (5-40)
[2022-10-03 08:50] LABS: Zinc, Plasma or Serum 100 ug/dL (44-115)
== END | disposition home or self-care (01) ==
LOC: LAB 06:42
PROVIDERS: PCP Internal Medicine; Referring Provider Physician Assistant; Visit Provider Physician Assistant
DX: Z79.899 Other long term (current) drug therapy (principal); C78.2 Secondary malignant neoplasm of pleura; G73.3 Myasthenic syndromes in other diseases classified elsewhere; E66.01 Morbid (severe) obesity due to excess calories; Z68.41 Body mass index [BMI] 40.0-44.9, adult; E61.7 Deficiency of multiple nutrient elements; E78.5 Hyperlipidemia, unspecified; I10 Essential (primary) hypertension; E03.9 Hypothyroidism, unspecified
CPT/HCPCS: 80053; 80061; 82607; 82728; 82746; 83036; 83540; 83735; 84439; 84443; 84630; 85027

== ENCOUNTER → 2022-09-30 | Outpatient (CLI) | payer OTHER, SELFPAY ==
--- NOTE | 2022-09-30 09:22 | BI_ITS ---
MAMMOGRAPHY - BILATERAL SCREENING REASON FOR EXAM: Female, 56 years old. Routine annual screening examination. PERTINENT HISTORY: Mother with breast cancer. TECHNIQUE: Digital bilateral breast chuck (3D mammographic acquisition) in the CC and MLO projections. 2-D mediolateral oblique (MLO) and craniocaudad (CC) views of both breasts were obtained. CAD: Full Field Digital Mammography with Computer Added Detection was performed. COMPARISON: Comparison is made with prior study dated 08/23/2021 and 08/02/2020. FINDINGS: Breast Composition: The breasts are almost entirely fatty. There are no dominant masses or suspicious calcifications. Stable small benign-appearing bilateral axillary lymph nodes. No other significant abnormalities are identified. There has been no significant change since the prior study. BI/SCRN MAMM (CAD)W/CHUCK BILAT IMPRESSION: Stable bilateral screening mammogram. Yearly follow-up mammogram recommended. (A) ASSESSMENT CATEGORY: BIRADS Category 2: Benign. A letter regarding these results will be sent to the patient by the facility within 30 days. Approximately 10% of breast cancers are not detected by mammography. A normal mammogram should not delay biopsy of a clinically suspicious abnormality. [id number] Electronically Signed: Selwyn Guaman MD at 11:20 EST ,
--- NOTE | 2022-09-30 09:27 | BD_ITS ---
STUDY: DUAL ENERGY X-RAY ABSORPTIOMETRY / DXA REASON FOR EXAM: Female, 56 years old. [id number] TECHNIQUE: Bone Mineral Density (BMD) measurements of lumbar spine and bilateral hips were obtained. COMPARISON: None. FINDINGS: Lumbar Spine (L1-L4): g/cm2 (1.045) / T-score (0.0) / Z-score (1.0) Findings are suggestive of normal bone density with a low fracture risk. Left Femur Total: g/cm2 (1.075) / T-score (1.1) / Z-score (1.8) Left Femoral Neck: g/cm2 (0.916) / T-score (0.6) / Z-score (1.6) Right Femur Total: g/cm2 (1.075) / T-score (1.1) / Z-score (1.8) Right Femoral Neck: g/cm2 (0.943) / T-score (0.8) / Z-score (1.9) BD/Dexa Bone Density Study IMPRESSION: The patient is considered normal as outlined below according to World Parag Organization (WHO) criteria with a low fracture risk. Reference Information: The T-score is the number of standard deviations above or below the standard which is normal for young adults at their peak bone mineral density. The World Health Organization (WHO) interprets the T-scores as follows: Above -1 Normal bone density Between -1 and -2.5 Osteopenia Equal to / or below -2.5 Osteoporosis As a practical clinical guideline, osteopenia may be graded as follows: Mild -1 through -1.5 Moderate -1.6 through -2.0 Severe -2.1 through -2.4 The Z-score is the number of standard deviations above or below age-matched controls. A Z-score of less than -1.5 would be considered abnormal. References: 1. NIH Osteoporosis and Related Bone Diseases www osteo.org 2. International Society for Clinical Densitometry www iscd.org 3. National Osteoporosis Foundation www nof.org Electronically Signed: Selwyn Guaman MD at 15:26 EST ,
== END | disposition home or self-care (01) ==
LOC: OPBI 09:17
PROVIDERS: PCP Internal Medicine; Visit Provider Student in an Organized Health Care Education/Training Program
DX: Z12.31 Encounter for screening mammogram for malignant neoplasm of breast (principal); Z80.3 Family history of malignant neoplasm of breast; N95.1 Menopausal and female climacteric states; M81.0 Age-related osteoporosis without current pathological fracture
CPT/HCPCS: 77063; 77067; 77080

== ENCOUNTER → 2022-10-10 | Outpatient (CLI) | payer OTHER, SELFPAY ==
[2022-10-10 08:43] LABS: Potassium 4.2 mmol/L (3.5-5.1)
== END | disposition home or self-care (01) ==
LOC: LAB 06:54
PROVIDERS: PCP Internal Medicine; Visit Provider Physician Assistant
DX: E87.6 Hypokalemia (principal)
CPT/HCPCS: 36415; 84132

== ENCOUNTER → 2022-11-13 | Outpatient (CLI) | payer OTHER, SELFPAY ==
[2022-11-13 06:57] LABS: Absolute Lymphocyte Count 1.97 X10^3/uL (0.83-4.51); Basophil# 0.03 X10^3/uL; Basophil% 0.5 % (0-1); Eosinophil# 0.14 X10^3/uL; Eosinophils% 2.5 % (0-5); Hematocrit 41.2 % (37-47); Hemoglobin 13.3 g/dL (12.0-15.0); Lymphocyte # 1.97 X10^3/ul (0.83-4.51); Lymphocyte % 35.4 % (19-41); Mean Corp Hgb Conc 32.3 g/dL (32-36); Mean Corpuscular Hgb 30.6 pg (27.0-32.0); Mean Corpuscular Volume 94.7 fL (81-99); Mean Platelet Vol. 9.9 fl (6.2-12.0); Monocyte% 7.2 % (0-10); NRBC Flagged by Analyzer 0 % (0-5); Platelet Count 282 K/mm3 (150-450); RBC Distribution Width CV 13.9 % (11.6-14.6); RBC Distribution Width SD 48.4 fl (35.1-43.9); Red Blood Count 4.35 M/mm3 (4.2-5.4); White Blood Count 5.6 K/mm3 (4.4-11.0)
[2022-11-13 07:28] LABS: Erythrocyte Sedimentation Rate 13 mm/hr (0-30)
[2022-11-13 08:11] LABS: ALB/GLOB Ratio 1.1 RATIO (0.9-2.4); AST(SGOT) 23 U/L (15-37); Alanine Aminotransfer ALT/SGPT 37 U/L (13-56); Alkaline Phosphatase 85 U/L (45-117); Anion Gap 7 (5-15); BUN 13 mg/dL (7-18); BUN/Creat Ratio 18.9 RATIO (10-20); CRP < 2.90 mg/L (0.0-3.0); Calcium,Total 9.7 mg/dL (8.5-10.1); Chloride 103 mmol/L (98-107); Creatinine, Serum 0.69 mg/dL (0.55-1.02); EST Glomerular Filtration Rate 94 mL/min (>60); Est Glom Filt Rate - Afr Amer 114 mL/min (>60); Ferritin 131 ng/mL (8-252); Globulin 3.5 g/dL (2.2-4.2); Glucose 108 mg/dL (74-106); Iron 71 ug/dL (50-170); Magnesium 2.1 mg/dL (1.6-2.6); Potassium 3.5 mmol/L (3.5-5.1); Protein, Total 7.5 g/dL (6.4-8.2); Sodium Level 139 mmol/L (136-145)
[2022-11-13 08:19] LABS: Vitamin B12 1818 pg/mL (211-911)
[2022-11-15 17:06] LABS: Complement C3 167 mg/dL (82-167)
[2022-11-16 18:51] LABS: Anti-dsDNA Ab <1 IU/mL (0-9)
[2022-11-16 19:00] LABS: Zinc, Plasma or Serum 98 ug/dL (44-115)
== END | disposition home or self-care (01) ==
LOC: LAB 06:36
PROVIDERS: PCP Internal Medicine; Referring Provider Internal Medicine Rheumatology; Visit Provider Internal Medicine Rheumatology
DX: I10 Essential (primary) hypertension (principal); M35.01 Sjogren syndrome with keratoconjunctivitis; E78.5 Hyperlipidemia, unspecified; E03.9 Hypothyroidism, unspecified; G47.33 Obstructive sleep apnea (adult) (pediatric); E66.09 Other obesity due to excess calories; Z68.38 Body mass index [BMI] 38.0-38.9, adult; E61.7 Deficiency of multiple nutrient elements
CPT/HCPCS: 36415; 80053; 82607; 82728; 82746; 83540; 83735; 84630; 85025; 85652; 86140; 86160; 86225

== ENCOUNTER → 2023-01-06 | Outpatient (CLI) | payer OTHER, SELFPAY ==
[2023-01-06 08:02] LABS: Hemoglobin A1c 4.4 % (3.8-5.6)
[2023-01-06 08:03] LABS: Anion Gap 3 (5-15); BUN 11 mg/dL (7-18); BUN/Creat Ratio 20.5 RATIO (10-20); Calcium,Total 9.1 mg/dL (8.5-10.1); Chloride 109 mmol/L (98-107); Creatinine, Serum 0.54 mg/dL (0.55-1.02); EST Glomerular Filtration Rate 126 mL/min (>60); Est Glom Filt Rate - Afr Amer 152 mL/min (>60); Glucose 81 mg/dL (74-106); Potassium 3.2 mmol/L (3.5-5.1); Sodium Level 139 mmol/L (136-145)
== END | disposition home or self-care (01) ==
LOC: LAB 06:29
PROVIDERS: PCP Internal Medicine; Referring Provider Internal Medicine Endocrinology, Diabetes & Metabolism; Visit Provider Internal Medicine Endocrinology, Diabetes & Metabolism
DX: E11.9 Type 2 diabetes mellitus without complications (principal); I10 Essential (primary) hypertension; Z79.899 Other long term (current) drug therapy
CPT/HCPCS: 36415; 80048; 83036

== ENCOUNTER → 2023-01-12 | Outpatient (CLI) | payer OTHER, SELFPAY ==
[2023-01-12 17:10] LABS: Magnesium 2.1 mg/dL (1.6-2.6); Potassium 3.5 mmol/L (3.5-5.1)
== END | disposition home or self-care (01) ==
LOC: LAB 16:11
PROVIDERS: PCP Internal Medicine; Referring Provider Internal Medicine Endocrinology, Diabetes & Metabolism; Visit Provider Internal Medicine Endocrinology, Diabetes & Metabolism
DX: E87.6 Hypokalemia (principal)
CPT/HCPCS: 36415; 83735; 84132

== ENCOUNTER → 2023-02-09 | Outpatient (CLI) | payer OTHER, SELFPAY ==
[2023-02-09 07:58] LABS: Potassium 3.8 mmol/L (3.5-5.1); T4 Free Direct 1.05 ng/dL (0.76-1.46); Thyroid Stim Hormone (TSH) 0.77 uIU/mL (0.358-3.74)
== END | disposition home or self-care (01) ==
PROVIDERS: PCP Internal Medicine; Referring Provider Internal Medicine Endocrinology, Diabetes & Metabolism; Visit Provider Internal Medicine Endocrinology, Diabetes & Metabolism
DX: E87.6 Hypokalemia (principal); E03.9 Hypothyroidism, unspecified
CPT/HCPCS: 36415; 84132; 84439; 84443

== ENCOUNTER → 2023-03-01 | Outpatient (CLI) | payer OTHER, SELFPAY ==
[2023-03-01 07:27] LABS: Potassium 4.1 mmol/L (3.5-5.1); T4 Free Direct 1.08 ng/dL (0.76-1.46); Thyroid Stim Hormone (TSH) 1.56 uIU/mL (0.358-3.74)
== END | disposition home or self-care (01) ==
LOC: LAB 06:42
PROVIDERS: PCP Internal Medicine; Referring Provider Internal Medicine Endocrinology, Diabetes & Metabolism; Visit Provider Internal Medicine Endocrinology, Diabetes & Metabolism
DX: E87.6 Hypokalemia (principal); E03.9 Hypothyroidism, unspecified
CPT/HCPCS: 36415; 84132; 84439; 84443

== ENCOUNTER → 2023-03-25 | Outpatient (CLI) | payer OTHER, SELFPAY ==
[2023-03-25 07:02] LABS: Hematocrit 41.3 % (37-47); Hemoglobin 13.2 g/dL (12.0-15.0); Mean Corpuscular Hgb 30.3 pg (27.0-32.0); Mean Corpuscular Volume 94.9 fL (81-99); Mean Platelet Vol. 10.6 fl (6.2-12.0); Platelet Count 226 K/mm3 (150-450); RBC Distribution Width CV 13.4 % (11.6-14.6); RBC Distribution Width SD 46.9 fl (35.1-43.9); Red Blood Count 4.35 M/mm3 (4.2-5.4); White Blood Count 5.1 K/mm3 (4.4-11.0)
[2023-03-25 08:24] LABS: Vitamin B12 683 pg/mL (211-911); Vitamin D,25 Hydroxy 75.5 ng/mL
[2023-03-25 08:34] LABS: ALB/GLOB Ratio 1.1 RATIO (0.9-2.4); AST(SGOT) 23 U/L (15-37); Alanine Aminotransfer ALT/SGPT 31 U/L (13-56); Albumin, Serum 3.8 g/dL (3.2-5.0); Alkaline Phosphatase 107 U/L (45-117); Anion Gap 6 (5-15); BUN 12 mg/dL (7-18); BUN/Creat Ratio 20.3 RATIO (10-20); Calcium,Total 9.4 mg/dL (8.5-10.1); Chloride 104 mmol/L (98-107); Cholesterol 161 mg/dL (200); Creatinine, Serum 0.59 mg/dL (0.55-1.02); EST Glomerular Filtration Rate 112 mL/min (>60); Est Glom Filt Rate - Afr Amer 136 mL/min (>60); Ferritin 81 ng/mL (8-252); Globulin 3.5 g/dL (2.2-4.2); Glucose 87 mg/dL (74-106); High Density Lipoprotein 48 mg/dL; Iron 100 ug/dL (50-170); Magnesium 2.3 mg/dL (1.6-2.6); Potassium 4.6 mmol/L (3.5-5.1); Protein, Total 7.3 g/dL (6.4-8.2); Sodium Level 139 mmol/L (136-145); T4 Free Direct 1.19 ng/dL (0.76-1.46); Thyroid Stim Hormone (TSH) 1.29 uIU/mL (0.358-3.74); Triglycerides 103 mg/dL; Very Low Density Lipoprotein 21 mg/dL (5-40)
[2023-03-31 08:12] LABS: Vitamin B1, Thiamine 120.9 nmol/L (66.5-200.0); Zinc, Plasma or Serum 109 ug/dL (44-115)
== END | disposition home or self-care (01) ==
PROVIDERS: PCP Internal Medicine; Referring Provider Internal Medicine Endocrinology, Diabetes & Metabolism; Visit Provider Internal Medicine Endocrinology, Diabetes & Metabolism
DX: G47.33 Obstructive sleep apnea (adult) (pediatric) (principal); E66.01 Morbid (severe) obesity due to excess calories; Z99.89 Dependence on other enabling machines and devices; I10 Essential (primary) hypertension; E61.7 Deficiency of multiple nutrient elements; Z68.35 Body mass index [BMI] 35.0-35.9, adult; E87.6 Hypokalemia; E03.9 Hypothyroidism, unspecified
CPT/HCPCS: 36415; 80053; 80061; 82306; 82607; 82728; 82746; 83540; 83735; 84425; 84439; 84443; 84630; 85027

== ENCOUNTER → 2023-04-19 | Outpatient (CLI) | payer OTHER, SELFPAY ==
[2023-04-19 07:32] LABS: Hematocrit 41.8 % (37-47); Hemoglobin 12.8 g/dL (12.0-15.0)
[2023-04-19 08:06] LABS: ALB/GLOB Ratio 0.9 RATIO (0.9-2.4); AST(SGOT) 17 U/L (15-37); Alanine Aminotransfer ALT/SGPT 28 U/L (13-56); Albumin, Serum 3.5 g/dL (3.2-5.0); Alkaline Phosphatase 92 U/L (45-117); Anion Gap 5 (5-15); BUN 11 mg/dL (7-18); BUN/Creat Ratio 18.5 RATIO (10-20); Calcium,Total 8.8 mg/dL (8.5-10.1); Chloride 102 mmol/L (98-107); Cholesterol 192 mg/dL (200); Creatinine, Serum 0.59 mg/dL (0.55-1.02); EST Glomerular Filtration Rate 112 mL/min (>60); Est Glom Filt Rate - Afr Amer 135 mL/min (>60); Globulin 3.7 g/dL (2.2-4.2); Glucose 86 mg/dL (74-106); High Density Lipoprotein 60 mg/dL; Protein, Total 7.2 g/dL (6.4-8.2); Sodium Level 138 mmol/L (136-145); Triglycerides 128 mg/dL; Very Low Density Lipoprotein 26 mg/dL (5-40)
[2023-04-19 09:09] LABS: Vitamin B12 565 pg/mL (211-911); Vitamin D,25 Hydroxy 59.2 ng/mL
[2023-04-19 09:24] LABS: Hemoglobin A1c 4.5 % (3.8-5.6)
== END | disposition home or self-care (01) ==
LOC: LAB 06:05
PROVIDERS: PCP Internal Medicine; Referring Provider Internal Medicine Endocrinology, Diabetes & Metabolism; Visit Provider Internal Medicine Endocrinology, Diabetes & Metabolism
DX: E11.9 Type 2 diabetes mellitus without complications (principal); E78.2 Mixed hyperlipidemia; E55.9 Vitamin D deficiency, unspecified; Z79.899 Other long term (current) drug therapy; I10 Essential (primary) hypertension
CPT/HCPCS: 36415; 80053; 80061; 82306; 82607; 83036; 85014; 85018

== ENCOUNTER → 2023-05-20 | Outpatient (CLI) | payer OTHER, SELFPAY ==
[2023-05-20 07:17] LABS: Absolute Lymphocyte Count 2.52 X10^3/uL (0.83-4.51); Absolute Neutrophil Count 2.8 X10^3/uL (2.0-7.7); Basophil# 0.03 X10^3/uL; Basophil% 0.5 % (0-1); Eosinophil# 0.02 X10^3/uL; Eosinophils% 0.3 % (0-5); Hematocrit 40.5 % (37-47); Hemoglobin 13.2 g/dL (12.0-15.0); Lymphocyte # 2.52 X10^3/ul (0.83-4.51); Lymphocyte % 43.9 % (19-41); Mean Corp Hgb Conc 32.6 g/dL (32-36); Mean Corpuscular Hgb 31.7 pg (27.0-32.0); Mean Corpuscular Volume 97.1 fL (81-99); Mean Platelet Vol. 9.7 fl (6.2-12.0); Monocyte# 0.37 X10^3/uL; Monocyte% 6.4 % (0-10); NRBC Flagged by Analyzer 0 % (0-5); Neutrophil # 2.77 X10^3/uL (2.7-7.7); Neutrophil % 48.4 % (47-70); Platelet Count 239 K/mm3 (150-450); RBC Distribution Width CV 12.2 % (11.6-14.6); Red Blood Count 4.17 M/mm3 (4.2-5.4); White Blood Count 5.7 K/mm3 (4.4-11.0)
[2023-05-20 07:47] LABS: AST(SGOT) 18 U/L (15-37); Alanine Aminotransfer ALT/SGPT 25 U/L (13-56); Albumin, Serum 3.6 g/dL (3.2-5.0); Alkaline Phosphatase 85 U/L (45-117); Anion Gap 5 (5-15); BUN 8 mg/dL (7-18); BUN/Creat Ratio 12.9 RATIO (10-20); Calcium,Total 9.5 mg/dL (8.5-10.1); Chloride 104 mmol/L (98-107); Creatinine, Serum 0.62 mg/dL (0.55-1.02); EST Glomerular Filtration Rate 106 mL/min (>60); Est Glom Filt Rate - Afr Amer 129 mL/min (>60); Globulin 3.5 g/dL (2.2-4.2); Glucose 87 mg/dL (74-106); Potassium 4.1 mmol/L (3.5-5.1); Protein, Total 7.1 g/dL (6.4-8.2); Sodium Level 140 mmol/L (136-145)
== END | disposition home or self-care (01) ==
LOC: LAB 06:35
PROVIDERS: PCP Internal Medicine; Referring Provider Internal Medicine Rheumatology; Visit Provider Internal Medicine Rheumatology
DX: M35.01 Sjogren syndrome with keratoconjunctivitis (principal); Z79.899 Other long term (current) drug therapy
CPT/HCPCS: 36415; 80053; 85025

== ENCOUNTER → 2023-07-02 | Outpatient (CLI) | payer OTHER, SELFPAY ==
[2023-07-02 07:48] LABS: Vitamin D,25 Hydroxy 56.7 ng/mL
== END | disposition home or self-care (01) ==
LOC: LAB 06:22
PROVIDERS: PCP Internal Medicine; Referring Provider Physician Assistant; Visit Provider Physician Assistant
DX: G47.33 Obstructive sleep apnea (adult) (pediatric) (principal); Z99.89 Dependence on other enabling machines and devices; I10 Essential (primary) hypertension; E61.7 Deficiency of multiple nutrient elements; E78.5 Hyperlipidemia, unspecified; E66.09 Other obesity due to excess calories; Z68.33 Body mass index [BMI] 33.0-33.9, adult; E67.3 Hypervitaminosis D
CPT/HCPCS: 36415; 82306

== ENCOUNTER → 2023-07-16 | Outpatient (CLI) | payer OTHER, SELFPAY ==
--- NOTE | 2023-07-16 15:27 | RAD_ITS ---
INDICATION: Degenerative disc disease EXAMINATION/TECHNIQUE: X-RAY - XR Spine Lumbar Min 4 Views COMPARISON: 04/04/2021 FINDINGS: VERTEBRAE: Preserved vertebral body height. No acute fracture. No spondylolisthesis. Preservation of the normal lumbar lordosis. DISCS: Stable mild disc space narrowing at L4-5 and L5-S1. INCLUDED ABDOMEN: Included bowel gas pattern is non-obstructive. RAD/L/S Spine Min 4 Views IMPRESSION: Stable mild degenerative disc disease of the lower lumbar spine. Electronically Signed: Gurpreet Andersen MD at 0:17 EDT ,
== END | disposition home or self-care (01) ==
LOC: MTRAD 15:24
PROVIDERS: PCP Internal Medicine
DX: M51.36 Other intervertebral disc degeneration, lumbar region (principal)
CPT/HCPCS: 72110

== ENCOUNTER → 2023-07-28 | Outpatient (CLI) | payer OTHER, SELFPAY ==
[2023-07-28 07:23] LABS: AST(SGOT) 19 U/L (15-37); Alanine Aminotransfer ALT/SGPT 22 U/L (13-56); Albumin, Serum 3.7 g/dL (3.2-5.0); Alkaline Phosphatase 84 U/L (45-117); Anion Gap 4 (5-15); BUN 8 mg/dL (7-18); BUN/Creat Ratio 12.5 RATIO (10-20); Calcium,Total 9.6 mg/dL (8.5-10.1); Chloride 104 mmol/L (98-107); Creatinine, Serum 0.64 mg/dL (0.55-1.02); EST Glomerular Filtration Rate 102 mL/min (>60); Est Glom Filt Rate - Afr Amer 124 mL/min (>60); Globulin 3.7 g/dL (2.2-4.2); Glucose 92 mg/dL (74-106); Potassium 4.2 mmol/L (3.5-5.1); Protein, Total 7.4 g/dL (6.4-8.2); Sodium Level 139 mmol/L (136-145); Thyroid Stim Hormone (TSH) 0.98 uIU/mL (0.358-3.74)
[2023-07-28 08:32] LABS: Hemoglobin A1c 4.5 % (3.8-5.6)
[2023-07-28 08:55] LABS: Creatinine, Urine (random) < 13.00 mg/dL (NO RANGE EST.); Microalbumin,Random Urine < 5.0 mg/L (NO RANGE EST.)
== END | disposition home or self-care (01) ==
LOC: LAB 06:06
PROVIDERS: PCP Internal Medicine; Referring Provider Internal Medicine Endocrinology, Diabetes & Metabolism; Visit Provider Internal Medicine Endocrinology, Diabetes & Metabolism
DX: E11.65 Type 2 diabetes mellitus with hyperglycemia (principal); I10 Essential (primary) hypertension; E78.2 Mixed hyperlipidemia; Z79.899 Other long term (current) drug therapy
CPT/HCPCS: 36415; 80053; 82043; 82570; 83036; 84443

== ENCOUNTER → 2023-08-20 | Outpatient (CLI) | payer OTHER, SELFPAY ==
[2023-08-20 07:34] LABS: Hematocrit 42.1 % (37-47); Hemoglobin 13.3 g/dL (12.0-15.0); Mean Corp Hgb Conc 31.6 g/dL (32-36); Mean Corpuscular Hgb 30.7 pg (27.0-32.0); Mean Corpuscular Volume 97.2 fL (81-99); Platelet Count 255 K/mm3 (150-450); RBC Distribution Width CV 12.3 % (11.6-14.6); RBC Distribution Width SD 44.5 fl (35.1-43.9); Red Blood Count 4.33 M/mm3 (4.2-5.4)
[2023-08-20 08:03] LABS: Vitamin B12 505 pg/mL (211-911); Vitamin D,25 Hydroxy 54.4 ng/mL
[2023-08-20 10:54] LABS: ALB/GLOB Ratio 1.1 RATIO (0.9-2.4); AST(SGOT) 23 U/L (15-37); Alanine Aminotransfer ALT/SGPT 24 U/L (13-56); Alkaline Phosphatase 77 U/L (45-117); Anion Gap 7 (5-15); BUN 8 mg/dL (7-18); BUN/Creat Ratio 12.7 RATIO (10-20); Calcium,Total 9.3 mg/dL (8.5-10.1); Chloride 100 mmol/L (98-107); Cholesterol 190 mg/dL (200); Creatinine, Serum 0.63 mg/dL (0.55-1.02); EST Glomerular Filtration Rate 104 mL/min (>60); Est Glom Filt Rate - Afr Amer 126 mL/min (>60); Ferritin 46 ng/mL (8-252); Globulin 3.5 g/dL (2.2-4.2); Glucose 92 mg/dL (74-106); High Density Lipoprotein 54 mg/dL; Iron 100 ug/dL (50-170); Magnesium 2.3 mg/dL (1.6-2.6); Potassium 3.7 mmol/L (3.5-5.1); Protein, Total 7.5 g/dL (6.4-8.2); Sodium Level 137 mmol/L (136-145); Triglycerides 144 mg/dL; Very Low Density Lipoprotein 29 mg/dL (5-40)
[2023-08-30 16:09] LABS: Vitamin B1, Thiamine 137.2 nmol/L (66.5-200.0); Zinc, Plasma or Serum 92 ug/dL (44-115)
== END | disposition home or self-care (01) ==
PROVIDERS: PCP Internal Medicine; Referring Provider Physician Assistant; Visit Provider Physician Assistant
DX: G47.33 Obstructive sleep apnea (adult) (pediatric) (principal); Z99.89 Dependence on other enabling machines and devices; E61.7 Deficiency of multiple nutrient elements; E78.5 Hyperlipidemia, unspecified; E66.09 Other obesity due to excess calories; Z68.33 Body mass index [BMI] 33.0-33.9, adult; I10 Essential (primary) hypertension; E67.3 Hypervitaminosis D
CPT/HCPCS: 36415; 80053; 80061; 82306; 82607; 82728; 82746; 83540; 83735; 84425; 84630; 85027

== ENCOUNTER → 2023-10-29 | Outpatient (CLI) | payer OTHER, SELFPAY ==
--- OUTSIDE RECORDS SUMMARY | 2023-10-29 06:10 | XMS RPT_ITS | CCD ---
Author Name Unknown Address [address] [place] [address] Organization [facility] Care Team Providers Care Lead Data Entry Operator Name Role Phone Olga Bolaños MD Primary Care Provider Olga Bolaños MD Primary Care Provider Saman Moctezuma MD Unavailable Garret Christensen Unavailable Olga Bolaños MD Primary Care Provider [phone] Olga Bolaños MD Primary Care Provider Saman Moctezuma MD Unavailable Garret Christensen Unavailable SAMAN MOCTEZUMA Attending Unavailable GANTA, OLGA Primary Care Unavailable ZUPGARRET MOE Attending Unavailable GANTA, OLGA Primary Care Unavailable ZUPGARRET MOE Attending Unavailable GANTA, OLGA Primary Care Unavailable SAMAN MOCTEZUMA Attending Unavailable GANTA, OLGA Primary Care Unavailable ZUPGARRET MOE Attending Unavailable OLDER, MICKI Referring Unavailable GANTA, OLGA Primary Care Unavailable OLDER, MICKI Attending Unavailable GANTA, OLGA Primary Care Unavailable LUIS MONTANEZ Attending Unavailable GANTA, OLGA Primary Care Unavailable OLDER, MICKI Attending Unavailable GANTA, OLGA Primary Care Unavailable PASTORA, KATARINA Referring Unavailable GANTA, OLGA Primary Care Unavailable OLDER, MICKI Attending Unavailable GANTA, OLGA Primary Care Unavailable OLDER, MICKI Referring Unavailable GANTA, OLGA Primary Care Unavailable PASTORA, KATARINA Attending Unavailable GANTA, OLAG Primary Care Unavailable OLDER, MICKI Attending Unavailable GANTA, OLGA Primary Care Unavailable OLDER, MICKI Referring Unavailable GANTA, OLGA Primary Care Unavailable MICKI UNDERWOOD Attending Unavailable [facility] Primary Care Unavailable LUIS MONTANEZ Attending Unavailable [facility] Primary Care Unavailable Allergies Allergy Classification Reported Allergen(s) Allergy Type Date of Onset Reaction(s) Facility (10 sources) Acetaminophen / HYDROcodone Drug Allergy 08-24-2019 Itching [facility] Work Phone: (14 sources) gabapentin Drug Allergy 08-24-2019 Swelling [facility] Work Phone: (20 sources) SUMAtriptan; Translations: [SUMATRIPTAN] Drug Allergy 07-25-2007 Other [facility] (2 sources) topiramate Drug Allergy 08-24-2019 Swelling [facility] Medications Current Medications Medication Drug Class(es) Dates Sig (Normalized) Sig (Original) acetaminophen 325 mg / oxyCODONE hydrochloride 5 mg oral tablet (2 sources) Opioid Agonist Start: 11-18-2021 End: 11-23-2021 oxyCODONE-acetaminop hen (PERCOCET) 5-325 MG per tablet Indications: Postoperative abdominal pain Take 1 tablet by mouth every 6 hours as needed for Pain for up to 5 days. Intended supply: 5 days. Take lowest dose possible to manage pain 20 tablet 0 11/18/2021 11/23/2021 Active Completed/Discontinued Medications Medication Drug Class(es) Dates Sig (Normalized) Sig (Original) acetaminophen 500 mg oral tablet (2 sources) Start: 11-18-2021 End: 11-18-2021 acetaminophen (TYLENOL) tablet 1,000 mg Problems Active Problems Problem Classification Problem Date Documented Da te Episodic/Chronic Abdominal pain (1 source) Postoperative abdominal pain; Translations: [Unspecified abdominal pain] Episodic Diabetes mellitus without complication (2 sources) Prediabetes; Translations: [Prediabetes] Episodic Disorders of lipid metabolism (20 sources) Hyperlipidemia; Translations: [Hyperlipidemia, unspecified] Onset: 2 09-15-2021 Chronic Esophageal disorders (20 sources) Gastroesophageal reflux disease; Translations: [Gastro-esophageal reflux disease without esophagitis] Onset: 2 03-24-2013 Chronic Essential hypertension (20 sources) Hypertensive disorder; Translations: [Essential (primary) hypertension] Onset: 2 09-15-2021 Chronic Gastritis and duodenitis (10 sources) Chronic superficial gastritis; Translations: [Chronic superficial gastritis without bleeding] Onset: 2 Chronic Headache; including migraine (20 sources) Migraine without aura, not refractory ; Translations: [Migraine without aura, not intractable, without status migrainosus] Onset: 6 01-20-2016 Chronic Mood disorders (20 sources) Bipolar I disorder, most recent episode depression; Translations: [Bipolar disorder, current episode depressed, mild or moderate severity, unspecified] Onset: 7 09-08-2021 Chronic Nutritional deficiencies (20 sources) Vitamin D deficiency; Translations: [Vitamin D deficiency, unspecified] Onset: 7 Chronic Osteoarthritis (20 sources) Arthritis; Translations: [Unspecified osteoarthritis, unspecified site] Onset: 6 03-03-2016 Chronic Other aftercare (2 sources) Patient encounter status; Translations: [Other fpc (current) drug therapy] Episodic Other endocrine disorders (20 sources) Hypoparathyroidism; Translations: [Hypoparathyroidism, unspecified] Onset: 3 09-08-2021 Chronic Other gastrointestinal disorders (20 sources) Irritable bowel syndrome; Translations: [Irritable bowel syndrome without diarrhea] Onset: 7 03-10-2007 Chronic Other liver diseases (4 sources) Steatosis of liver; Translations: [Fatty (change of) liver, not elsewhere classified] Onset: 2 09-01-2022 Chronic Other nervous system disorders (1 source) Burning feet; Translations: [Other disturbances of skin sensation] 08-19-2023 Episodic Other nervous system disorders (1 source) Other disturbances of skin sensation; Translations: [Burning sensation of feet] Onset: 4 Episodic Other nervous system disorders (1 source) Anesthesia of skin; Translations: [Numbness of toes] Onset: 4 Episodic Other nervous system disorders (1 source) Paresthesia of skin; Translations: [Paresthesia of skin] Onset: 4 Episodic Other nutritional; endocrine; and metabolic disorders (11 sources) Severe obesity; Translations: [Morbid (severe) obesity due to excess calories] Onset: 2 Chronic Other nutritional; endocrine; and metabolic disorders (20 sources) Metabolic syndrome X; Translations: [Metabolic syndrome] Onset: 7 03-10-2007 Chronic Other nutritional; endocrine; and metabolic disorders (4 sources) Body mass index 40+ - severely obese; Translations: [Morbid (severe) obesity due to excess calories] Onset: 2 09-01-2022 Chronic Other nutritional; endocrine; and metabolic disorders (1 source) Obesity; Translations: [Other obesity due to excess calories] 04-05-2023 Chronic Other nutritional; endocrine; and metabolic disorders (1 source) Hypervitaminosis D; Translations: [Hypervitaminosis D] 04-05-2023 Chronic Other nutritional; endocrine; and metabolic disorders (2 sources) Body mass index (BMI) 36.0-36.9, adult; Translations: [Body mass index (BMI) 36.0-36.9, adult] Onset: 3 Chronic Other nutritional; endocrine; and metabolic disorders (2 sources) Body mass index (BMI) 33.0-33.9, adult; Translations: [Body mass index (BMI) 33.0-33.9, adult] Onset: 3 Chronic Other nutritional; endocrine; and metabolic disorders (2 sources) Hypervitaminosis D; Translations: [Hypervitaminosis D] Onset: 3 Chronic Other nutritional; endocrine; and metabolic disorders (2 sources) Body mass index (BMI) 35.0-35.9, adult; Translations: [Body mass index (BMI) 35.0-35.9, adult] Onset: 3 Chronic Other nutritional; endocrine; and metabolic disorders (2 sources) Other obesity due to excess calories; Translations: [Other obesity due to excess calories] Onset: 3 Chronic Other nutritional; endocrine; and metabolic disorders (2 sources) Body mass index (BMI) 38.0-38.9, adult; Translations: [Body mass index (BMI) 38.0-38.9, adult] Onset: 3 Chronic Other nutritional; endocrine; and metabolic disorders (2 sources) Morbid (severe) obesity due to excess calories; Translations: [Morbid (severe) obesity due to excess calories (HCC)] Onset: 2 Chronic Other nutritional; endocrine; and metabolic disorders (2 sources) Body mass index (BMI) 40.0-44.9, adult; Translations: [Body mass index (BMI) 40.0-44.9, adult ([facility])] Onset: 2 Chronic Other nutritional; endocrine; and metabolic disorders (1 source) Personal history of other endocrine, nutritional and metabolic disease; Translations: [History of iron deficiency] Onset: 3 Episodic Other screening for suspected conditions (not mental disorders or infectious disease) (13 sources) Imaging of gastrointestinal tract abnormal; Translations: [Abnormal findings on diagnostic imaging of other parts of digestive tract] Onset: 2 Episodic Residual codes; unclassified (20 sources) Obstructive sleep apnea syndrome; Translations: [Obstructive sleep apnea (adult) (pediatric)] Onset: 8 09-15-2021 Chronic Residual codes; unclassified (2 sources) Obstructive sleep apnea (adult) (pediatric); Translations: [Obstructive sleep apnea (adult) (pediatric)] Onset: 2 Chronic Residual codes; unclassified (2 sources) Dependence on other enabling machines and devices; Translations: [Dependence on other enabling machines and devices] Onset: 2 Chronic Residual codes; unclassified (3 sources) Insomnia; Translations: [Insomnia, unspecified] Episodic Residual codes; unclassified (1 source) Other specified health status; Translations: [Other specified conditions influencing health status] Episodic Spondylosis; intervertebral disc disorders; other back problems (20 sources) Backache; Translations: [Dorsalgia, unspecified] Onset: 8 09-15-2021 Episodic Systemic lupus erythematosus and connective tissue disorders (20 sources) Sjogren's syndrome; Translations: [Sicca syndrome, unspecified] Onset: 3 09-08-2021 Chronic Thyroid disorders (20 sources) Acquired hypothyroidism; Translations: [Hypothyroidism, unspecified] Onset: 5 09-08-2021 Chronic Unclassified (1 source) Dense breast tissue; Translations: [Dense breast tissue] Onset: 4 Past or Other Problems Problem Classification Problem Date Documented Da te Episodic/Chronic Headache; including migraine (20 sources) Headache; Translations: [Headache] Onset: 06-16-2007 06-16-2007 Episodic Nutritional deficiencies (20 sources) Deficiency of multiple nutrient elements; Translations: [Deficiency of multiple nutrient elements] Onset: 06-14-2013 Episodic Other aftercare (2 sources) Encounter for other specified surgical aftercare; Translations: [Encounter for other specified surgical aftercare] Onset: 10-08-2022 Episodic Other and unspecified benign neoplasm (10 sources) Gastric polyp; Translations: [Polyp of stomach and duodenum] Onset: 11-18-2021 Episodic Other connective tissue disease (13 sources) Digital mucous cyst of right hand; Translations: [Ganglion, right hand] Onset: 11-06-2019 11-06-2019 Episodic Other gastrointestinal disorders (10 sources) History of bariatric surgical procedure; Translations: [Bariatric surgery status] Onset: 11-18-2021 Episodic Other gastrointestinal disorders (10 sources) Oropharyngeal dysphagia; Translations: [Dysphagia, oropharyngeal phase] Onset: 11-18-2021 Episodic Other gastrointestinal disorders (20 sources) History of laparoscopic adjustable gastric banding; Translations: [Bariatric surgery status] Onset: 03-09-2013 10-20-2016 Episodic Other nervous system disorders (1 source) Postoperative pain Episodic Other skin disorders (15 sources) Mass of subcutaneous tissue of right thumb; Translations: [Localized swelling, mass and lump, right upper limb] Onset: 10-13-2019 10-13-2019 Episodic Results Test Name Value Interpretation Reference Range Facil ity Vital Signs Date Time Vital Sign Value Performing Clinician Facility 09-02-2023 10:22-0500 Body height 168.3 cm Saman Moctezuma MD Work Phone: [facility] 09-02-2023 10:22-0500 Body mass index (BMI) [Ratio] 36.68 kg/m2 Saman Moctezuma MD Work Phone: [facility] 09-02-2023 10:22-0500 Body temperature 96.49 [degF] Saman Moctezuma MD Work Phone: [facility] 09-02-2023 10:22-0500 Body weight 103.87 kg Saman Moctezuma MD Work Phone: [facility] 09-02-2023 10:22-0500 Diastolic blood pressure 83 mm[Hg] Saman Moctezuma MD Work Phone: [facility] 09-02-2023 10:22-0500 Heart rate 85 /min Saman Moctezuma MD Work Phone: [facility] 09-02-2023 10:22-0500 Respiratory rate 16 /min Saman Moctezuma MD Work Phone: [facility] 09-02-2023 10:22-0500 Systolic blood pressure 128 mm[Hg] Saman Moctezuma MD Work Phone: [facility] 08-19-2023 07:53-0500 Body weight 103.42 kg Micki Older INTERVENTIONAL RADIOLOGY RN.FRONT DESK CLERK Work Phone: [facility] 08-19-2023 07:53-0500 Diastolic blood pressure 84 mm[Hg] Micki Older INTERVENTIONAL RADIOLOGY RN.FRONT DESK CLERK Work Phone: [facility] 08-19-2023 07:53-0500 Heart rate 76 /min Micki Older INTERVENTIONAL RADIOLOGY RN.FRONT DESK CLERK Work Phone: [facility] 08-19-2023 07:53-0500 Respiratory rate 16 /min Micki Older INTERVENTIONAL RADIOLOGY RN.FRONT DESK CLERK Work Phone: [facility] 08-19-2023 07:53-0500 SaO2% (BldA) [Mass fraction] 96 % Micki Older INTERVENTIONAL RADIOLOGY RN.FRONT DESK CLERK Work Phone: [facility] 08-19-2023 07:53-0500 Systolic blood pressure 136 mm[Hg] Micki Older INTERVENTIONAL RADIOLOGY RN.FRONT DESK CLERK Work Phone: [facility] 04-05-2023 14:00-0400 Body height 170.2 cm Garret Zupke PA Work Phone: [facility] 04-05-2023 14:00-0400 Body mass index (BMI) [Ratio] 33.27 kg/m2 Garret Zupke PA Work Phone: [facility] 04-05-2023 14:00-0400 Body temperature 96.1 [degF] Garret Zupke PA Work Phone: [facility] 04-05-2023 14:00-0400 Body weight 96.34 kg Garret Zupke PA Work Phone: [facility] 04-05-2023 14:00-0400 Diastolic blood pressure 84 mm[Hg] Garret Zupke PA Work Phone: [facility] 04-05-2023 14:00-0400 Heart rate 94 /min Garret Zupke PA Work Phone: [facility] 04-05-2023 14:00-0400 Respiratory rate 16 /min Garret Zupke PA Work Phone: [facility] 04-05-2023 14:00-0400 Systolic blood pressure 119 mm[Hg] Garret Zupke PA Work Phone: [facility] 12-04-2022 07:17-0400 Body weight 102.97 kg Micki Older INTERVENTIONAL RADIOLOGY RN.FRONT DESK CLERK Work Phone: [facility] 12-04-2022 07:17-0400 Diastolic blood pressure 78 mm[Hg] Micki Older INTERVENTIONAL RADIOLOGY RN.FRONT DESK CLERK Work Phone: [facility] 12-04-2022 07:17-0400 Heart rate 88 /min Micki Older INTERVENTIONAL RADIOLOGY RN.FRONT DESK CLERK Work Phone: [facility] 12-04-2022 07:17-0400 Respiratory rate 16 /min Micki Older INTERVENTIONAL RADIOLOGY RN.FRONT DESK CLERK Work Phone: [facility] 12-04-2022 07:17-0400 Systolic blood pressure 114 mm[Hg] Micki Older INTERVENTIONAL RADIOLOGY RN.FRONT DESK CLERK Work Phone: [facility] 12-02-2022 13:05-0400 Body height 170.2 cm Garret Zupke PA Work Phone: [facility] 12-02-2022 13:05-0400 Body mass index (BMI) [Ratio] 35.77 kg/m2 Garret Zupke PA Work Phone: [facility] 12-02-2022 13:05-0400 Body temperature 96.01 [degF] Garret Zupke PA Work Phone: [facility] 12-02-2022 13:05-0400 Body weight 103.6 kg Garret Zupke PA Work Phone: [facility] 12-02-2022 13:05-0400 Diastolic blood pressure 78 mm[Hg] Garret Zupke PA Work Phone: [facility] 12-02-2022 13:05-0400 Heart rate 98 /min Garret Zupke PA Work Phone: [facility] 12-02-2022 13:05-0400 Respiratory rate 16 /min Garret Zupke PA Work Phone: [facility] 12-02-2022 13:05-0400 Systolic blood pressure 123 mm[Hg] Garret Zupke PA Work Phone: [facility] 08-28-2022 11:48-0500 Body weight 121.56 kg Micki Older INTERVENTIONAL RADIOLOGY RN.FRONT DESK CLERK Work Phone: [facility] 08-28-2022 11:48-0500 Diastolic blood pressure 76 mm[Hg] Micki Older INTERVENTIONAL RADIOLOGY RN.FRONT DESK CLERK Work Phone: [facility] 08-28-2022 11:48-0500 Heart rate 92 /min Micki Older INTERVENTIONAL RADIOLOGY RN.FRONT DESK CLERK Work Phone: [facility] 08-28-2022 11:48-0500 Respiratory rate 16 /min Micki Older INTERVENTIONAL RADIOLOGY RN.FRONT DESK CLERK Work Phone: [facility] 08-28-2022 11:48-0500 Systolic blood pressure 128 mm[Hg] Micki Older INTERVENTIONAL RADIOLOGY RN.FRONT DESK CLERK Work Phone: [facility] 04-06-2022 16:34-0400 Body temperature 96.91 [degF] Alexander Quinteros Jr., MD Work Phone: [facility] 04-06-2022 16:34-0400 Body weight 116.12 kg Alexander Quinteros Jr., MD Work Phone: [facility] 04-06-2022 16:34-0400 Diastolic blood pressure 86 mm[Hg] Alexander Quinteros Jr., MD Work Phone: [facility] 04-06-2022 16:34-0400 Heart rate 94 /min Alexander Quinteros Jr., MD Work Phone: [facility] 04-06-2022 16:34-0400 Respiratory rate 18 /min Alexander Quinteros Jr., MD Work Phone: [facility] 04-06-2022 16:34-0400 SaO2% (BldA) [Mass fraction] 96 % Alexander Quinteros Jr., MD Work Phone: [facility] 04-06-2022 16:34-0400 Systolic blood pressure 118 mm[Hg] Alexander Quinteros Jr., MD Work Phone: [facility] 11-18-2021 14:55-0500 Diastolic blood pressure 83 mm[Hg] Saman Moctezuma MD Work Phone: [facility] 11-18-2021 14:55-0500 Heart rate 105 /min Saman Moctezuma MD Work Phone: [facility] 11-18-2021 14:55-0500 Respiratory rate 15 /min Saman Moctezuma MD Work Phone: [facility] 11-18-2021 14:55-0500 SaO2% (BldA) [Mass fraction] 99 % Saman Moctezuma MD Work Phone: [facility] 11-18-2021 14:55-0500 Systolic blood pressure 127 mm[Hg] Saman Moctezuma MD Work Phone: [facility] 11-18-2021 13:57-0500 Body temperature 97 [degF] Saman Moctezuma MD Work Phone: [facility] 11-18-2021 11:18-0500 Body mass index (BMI) [Ratio] 39 kg/m2 Saman Moctezuma MD Work Phone: [facility] 11-18-2021 11:18-0500 Body weight 112.95 kg Saman Moctezuma MD Work Phone: [facility] 11-18-2021 11:18-0500 Body height 170.2 cm Saman Moctezuma MD Work Phone: [facility] 11-14-2021 14:09-0500 Body height 170.2 cm Saman Moctezuma MD Work Phone: [facility] 11-14-2021 14:09-0500 Body mass index (BMI) [Ratio] 39.09 kg/m2 Saman Moctezuma MD Work Phone: [facility] 11-14-2021 14:09-0500 Body temperature 95.2 [degF] Saman Moctezuma MD Work Phone: [facility] 11-14-2021 14:09-0500 Body weight 113.22 kg Saman Moctezuma MD Work Phone: [facility] 11-14-2021 14:09-0500 Diastolic blood pressure 97 mm[Hg] Saman Moctezuma MD Work Phone: [facility] 11-14-2021 14:09-0500 Heart rate 118 /min Saman Moctezuma MD Work Phone: [facility] 11-14-2021 14:09-0500 Respiratory rate 20 /min Saman Moctezuma MD Work Phone: [facility] 11-14-2021 14:09-0500 SaO2% (BldA) [Mass fraction] 97 % Saman Moctezuma MD Work Phone: [facility] 11-14-2021 14:09-0500 Systolic blood pressure 139 mm[Hg] Saman Moctezuma MD Work Phone: [facility] 10-13-2019 09:35-0500 Body temperature 97.59 [degF] Rubin Washington MD Work Phone: [facility] Work Phone: 10-13-2019 09:35-0500 Diastolic blood pressure 58 mm[Hg] Rubin Washington MD Work Phone: [facility] Work Phone: 10-13-2019 09:35-0500 Heart rate 100 /min Rubin Washington MD Work Phone: [facility] Work Phone: 10-13-2019 09:35-0500 Respiratory rate 16 /min Rubin Washington MD Work Phone: [facility] Work Phone: 10-13-2019 09:35-0500 SaO2% (BldA) [Mass fraction] 95 % Rubin Washington MD Work Phone: [facility] Work Phone: 10-13-2019 09:35-0500 Systolic blood pressure 101 mm[Hg] Rubin Washington MD Work Phone: [facility] Work Phone: 10-13-2019 07:34-0500 Body height 170.2 cm Rubin Washington MD Work Phone: [facility] Work Phone: 10-13-2019 07:34-0500 Body mass index (BMI) [Ratio] 40.41 kg/m2 Rubin Washington MD Work Phone: [facility] Work Phone: 10-13-2019 07:34-0500 Body weight 117.03 kg Rubin Washington MD Work Phone: [facility] Work Phone: Encounters Encounter Date Encounter Type Care Provider Facility Start: 10-08-2023 End: 10-08-2023 ambulatory KATARINA PASTORA Facility:[facility] Start: 09-29-2023 End: 09-30-2023 ambulatory MICKI OLDER Facility:[facility] Start: 09-24-2023 End: 09-24-2023 ambulatory MICKI OLDER Facility:[facility] Start: 09-02-2023 End: 09-02-2023 ambulatory SAMAN MOCTEZUMA [facility] Start: 09-02-2023 End: 09-02-2023 Office outpatient visit 15 minutes Saman Moctezuma MD Work Phone: [facility] [place] Procedures Date Procedure Procedure Detail Performing Clinician Start: 03-19-2023 Lipid 1996 panel - S dontae or Plasma Olga Bolaños MD Work Phone: Start: 12-04-2022 Hemoglobin A1c/Hemoglobin.total in Blood Micki Underwood INTERVENTIONAL RADIOLOGY RN.FRONT DESK CLERK Work Phone: Start: 09-30-2022 Mammography Garret Zu pke PA Work Phone: Start: 08-17-2022 Thyrotropin [Units/v olume] in Serum or Plasma Garret Zupke PA Work Phone: Start: 11-18-2021 OPERATIVE REPORT Physic delaney Generic Start: 11-15-2021 Adult depression scr eening assessment Alexander Quinteros Jr., MD Work Phone: Start: 11-14-2021 Comprehensive metabo lic panel Garret Zupke PA Work Phone: Start: 11-14-2021 Lipid panel Garret Zu pke PA Work Phone: Start: 11-14-2021 Ecg routine ecg w/le ast 12 lds w/i&r Ramos Hayden INTERVENTIONAL RADIOLOGY RN - FRONT DESK CLERK Work Phone: Start: 11-14-2021 Lipid 1996 panel - S dontae or Plasma Garret Zupke PA Work Phone: Start: 04-17-2021 Colonoscopy Alexander sharma Jr., MD Work Phone: Start: 08-02-2020 Mammography Alexander sharma Jr., MD Work Phone: Start: 10-13-2019 Urine test visual color cmprsn chris Walters MD Work Phone: Plan of Treatment Date Care Activity Detail Author Start: 04-17-2031 Colonoscopy COLONOSCOPY [facility] Start: 04-17-2031 COLORECTAL CANCER SCREENING COLORECTAL CANCER SCREENING [facility] Start: 04-17-2031 Screening for malignant neoplasm of colon [facility] Start: 03-19-2028 Lipid 1996 panel - Serum or Plasma Lipid Screening [facility] Start: 2027 RSV Immunization aged 60 or older (1 - 1-dose 60+ series) RSV Immunization aged 60 or older (1 - 1-dose 60+ series) [facility] Start: 08-17-2027 LIPID SCREEN LIPID SCREEN [facility] Start: 07-03-2027 DTaP/Tdap/Td vaccine (3 - Td or Tdap) DTaP/Tdap/Td vaccine (3 - Td or Tdap) [facility] Start: 07-03-2027 DTaP/Tdap/Td vaccine (3 - Td) DTaP/Tdap/Td vaccine (3 - Td) [facility] Work Phone: Start: 07-03-2027 DTaP/Tdap/Td Vaccines (3 - Td or Tdap) DTaP/Tdap/Td Vaccines (3 - Td or Tdap) [facility] Start: 07-03-2027 Urine microalbumin profile DTaP,Tdap,Td Vaccine (3 - Td or Tdap) [facility] Start: 06-16-2027 DTaP/Tdap/Td Vaccines (2 - Tdap) DTaP/Tdap/Td Vaccines (2 - Tdap) [facility] Start: 06-16-2027 Urine microalbumin profile [facility] Start: 11-14-2026 Lipid panel Lipid Panel [facility] Start: 09-04-2026 LIPID SCREEN LIPID SCREEN [facility] Start: 03-19-2026 Diabetes Screening Diabetes Screening [facility] Start: 12-04-2025 DIABETES SCREEN DIABETES SCREEN [facility] Start: 08-17-2025 DIABETES SCREEN DIABETES SCREEN [facility] Start: 11-14-2024 DIABETES SCREEN DIABETES SCREEN [facility] Start: 08-19-2024 Annual PCP Team Chronic Disease Visit Annual PCP Team Chronic Disease Visit [facility] Start: 08-02-2024 Annual PCP Team Chronic Disease Visit Annual PCP Team Chronic Disease Visit [facility] Start: 06-15-2024 HPV TESTING HPV TESTING [facility] Start: 06-15-2024 PAP TESTING PAP TESTING [facility] Start: 03-08-2024 Annual PCP Team Chronic Disease Visit Annual PCP Team Chronic Disease Visit [facility] Start: 03-03-2024 End: 09-02-2024 25-hydroxyvitamin D3 [Mass/volume] in Serum or Plasma Vitamin D Deficiency Screening (Vit D 25) Lab Routine REMIGIO on CPAP Primary hypertension Deficiency of multiple nutrient elements Hyperlipidemia, unspecified hyperlipidemia type Class 2 severe obesity due to excess calories with serious comorbidity and body mass index (BMI) of 36.0 to 36.9 in adult Expected: 03/03/2024 (Approximate), Expires: 09/02/2024 [facility] Immunizations Immunization Date Immunization Notes Care Provider Fa byronty 05-26-2022 influenza virus vacc ine, unspecified formulation Garret POLLOCK Work Phone: [facility] 01-31-2022 Covid-19, Pfizer Gra y Top, Do Not Dilute, (Age 12 Y+), Im, L Garret POLLOCK Work Phone: [facility] [address] 06-14-2021 Pfizer SARS-CoV-2 Vaccination Garret POLLOCK Work Phone: [facility] 05-17-2021 influenza, injectabl e, quadrivalent, contains preservative Alexander Quinteros Jr., MD Work Phone: [facility] Work Phone: 12-18-2020 COVID-19 vaccine, ag e 12+ yr (PFIZER-BIONTECH - PURPLE TOP) Alexander Quinteros Jr., MD Work Phone: [facility] Work Phone: 11-27-2020 COVID-19 vaccine, ag e 12+ yr (PFIZER-BIONTECH - PURPLE TOP) Alexander Quinteros Jr., MD Work Phone: [facility] Work Phone: 08-02-2020 zoster vaccine recombinant Alexander Quinteros Jr., MD Work Phone: [facility] Work Phone: 06-01-2020 zoster vaccine recombinant Alexander Quinteros Jr., MD Work Phone: [facility] Work Phone: 05-14-2019 influenza, seasonal, injectable Alexander Quinteros Jr., MD Work Phone: [facility] 06-11-2018 influenza, injectabl e, quadrivalent, contains preservative Alexander Quinteros Jr., MD Work Phone: [facility] 06-16-2017 diphtheria, tetanus toxoids and acellular pertussis vaccine, 5 pertussis antigens Alexander Quinteros Jr., MD Work Phone: [facility] Work Phone: 06-18-2016 influenza, injectabl e, quadrivalent, contains preservative Alexander Quinteros Jr., MD Work Phone: [facility] Work Phone: 06-20-2015 influenza, seasonal, injectable Alexander Quinteros Jr., MD Work Phone: [facility] 06-13-2015 influenza, seasonal, injectable Alexander Quinteros Jr., MD Work Phone: [facility] Work Phone: 07-12-2014 pneumococcal polysaccharide vaccine, 23 valent Alexander Quinteros Jr., MD Work Phone: [facility] 07-14-2012 influenza virus vacc ine, unspecified formulation Alexander Quinteros Jr., MD Work Phone: [facility] 07-14-2010 influenza virus vacc ine, unspecified formulation Alexander Quinteros Jr., MD Work Phone: [facility] Work Phone: 07-20-2008 influenza virus vacc ine, unspecified formulation Alexander Quinteros Jr., MD Work Phone: [facility] Work Phone: 01-18-2007 tetanus and diphther ia toxoids, adsorbed, preservative free, for adult use (2 Lf of tetanus toxoid and 2 Lf of diphtheria toxoid) Alexander Quinteros Jr., MD Work Phone: [facility] 07-14-2006 influenza virus vacc ine, unspecified formulation Alexander Quinteros Jr., MD Work Phone: [facility] Work Phone: 12-12-2002 pneumococcal polysaccharide vaccine, 23 valent Alexander Quinteros Jr., MD Work Phone: [facility] Work Phone: Payers Date Payer Category Payer Private Health Insurance [id number] 2020 Private Health Insurance CIGNA CIGNA POS [id number] 2020-Present [phone] [address] [place] [address] POS [id number] 2020 Private Health Insurance [id number] 2019 Unknown BCBS BCBS OUT OF STATE xxxxxxxxxxxx 2019-Present [address] [place] [address] xxxxxxxxxxxx [id number] Social History Date Type Detail Facility Start: 10-06-2019 End: 08-26-2022 Tobacco smoking status NDIS Ex-smoker [facility] Work Phone: Start: 10-06-2019 End: 08-26-2022 Tobacco use and exposure Smokeless tobacco non-user [facility] Work Phone: Start: 09-15-2021 End: 09-02-2023 Alcohol intake Current drinker of alcohol (finding) [facility] Work Phone: Start: 10-06-2019 History SDOH Alcohol Comment OCCASSIONAL [facility] Work Phone: Start: 10-06-2019 Tobacco Comment QUIT 16 YEARS AGO [facility] Work Phone: Start: 1965 Sex Assigned At Not on file [facility] Work Phone: Start: 09-13-1981 End: 06-14-2003 History of tobacco use Cigarette Smoker [facility] Work Phone: Start: 10-06-2019 End: 09-02-2023 Cigarettes smoked current (pack per day) - Reported 0.5 [facility] Start: 11-14-2021 Tobacco Comment QUIT 19 YEARS AGO [facility] Work Phone: Start: 10-18-2021 End: 04-05-2023 Exposure to SARS-CoV-2 (event) Not sure [facility] Start: 09-13-1981 End: 06-14-2003 History of tobacco use Current smoker [facility] Start: 09-02-2021 End: 08-21-2022 History SDOH Alcohol Frequency 3 [facility] Start: 09-02-2021 End: 08-21-2022 History SDOH Alcohol Std Drinks 1 [facility] Start: 09-02-2021 End: 08-21-2022 History SDOH Alcohol Binge 2 [facility] Start: 03-10-2007 History SDOH Alcohol Comment Occaisionally [facility] Start: 09-02-2021 End: 08-21-2022 History SDOH Financial 5 [facility] Start: 08-19-2019 Education 17 [facility] Start: 08-21-2022 History SDOH Physical Activity DPW 4 [facility] Start: 09-02-2022 History SDOH Alcohol Std Drinks 0 [facility] Start: 09-02-2022 End: 09-02-2023 Humiliation, Afraid, Rape, and Kick questionnaire [HARK] [facility] Within the last year , have you been afraid of your partner or ex-partner? No [facility] How often to you hav e a drink containing alcohol? Never [facility] How many standard dr inks containing alcohol do you have on a typical day? Patient does not drink [facility] Are you now , , , , never or living with a partner? [facility] How often to you hav e a drink containing alcohol? Monthly or less [facility] How many standard dr inks containing alcohol do you have on a typical day? 1 or 2 [facility] Do you feel stress - tense, restless, nervous, or anxious, or unable to sleep at night because your mind is troubled all the time - these days [OSQ] Only a little [facility] (I/We) worried wheth er (my/our) food would run out before (I/we) got money to buy more. Never true [facility] Medical Equipment Procedure Code Equipment Code Equipment Origin al Text Equipment Identifier Dates [employer]va Seamguard [employer]able St[employer] Reinforcement [id number] Start: 09-02-2022 Clinical Notes 07-22-2015 to 10-08-2023 Saman Moctezuma MD - 09/02/2023 9:45 AM Laisha Dillard MA - 09/02/2023 9:[address] - 09/02/2023 9:45 AM Micki Navarrete APRN.CNP - 08/19/2023 8:13 AM ESTInstructions Note Date & Type Note Facility 10-08-2023 Note HNO ID: [id number] Author: BASHIR BOWMAN Mammo Tech Service: ? Author Type: Supervisor Decorating Type: Progress Notes Filed: 10/08/2023 07:37 Note Text: Radiology Service Progress Note PATIENT NAME: Santos Allan DATE OF SERVICE: October 08, 2023 TIME: 7:02 AM PATIENT IDENTITY VERIFICATION COMPLETED USING TWO (2) IDENTIFIERS: Name and Date of confirmed by patient verbally. FALL SCREENING: Has the patient had 2 falls in the last year or 1 fall with injury or currently using an Ambulatory Assistive Device (Walker, Cane, Wheelchair, Crutches, etc.)? No PATIENT GENDER DATA: Female. status: : No status: NO. PATIENT RELEVANT IMPLANT DATA REVIEWED: Not Applicable PATIENT PRESENTS WITH AN IMPLANTABLE OR ATTACHED MAINTENANCE DIRECTOR: No RADIOLOGY DEPARTMENT: Mammography PERIPHERAL IV DATA: Not applicable SIGNED BY: Libia Live October 08, 2023 7:02 AM [facility] 09-29-2023 Note HNO ID: [id number] Author: MICKI UNDERWOOD APRN.FRONT DESK CLERK Service: ? Author Type: Nurse Practitioner Type: Progress Notes Filed: 09/29/2023 17:05 Note Text: CC: Patient presents with: Recheck: 6 month follow up, review results HPI Santos Allan is a 57 year old female who presents today for follow up on neuropathy. Had injection for low back pain a few week ago but did not help with feet burning sensation and pain. Previous visit description: Started over a year ago with burning pain to feet intermittently at night with some numbness with starting topamax which she stopped. Over the last 6 months the pain is more severe and more constant. Now is all the time day and night varying in severity. Recent lumbar xray showing DDD. Recent TSH, vit B12, iron, HgbA1c and other blood work all within acceptable ranges. Denies injury, edema, discoloration, falling, or weakness. 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 Active motor axon loss change is seen in the medial gastrocnemius. Similar changes are seen on the left, suggesting this is a bilateral process. Is awaiting for further injections from Dr. Reddy. Had been started on gabapentin by this provider and had dose increased but by mid day pain flares up again. REVIEW OF SYSTEMS General: no fevers, no chills, no night sweats, no recurrent infections, no change in appetite, no change in energy, and no significant changes in weight Respiratory: no cough, no wheezing, no shortness of breath, no hemoptysis Cardiovascular: no chest pain, no chest pressure, no palpitations, and no swelling Neurologic: No headache, weakness, numbness, tingling, neck stiffness, tremor, vertigo, dizziness, memory loss, syncope. PAST MEDICAL HISTORY Diagnosis Date Acid reflux Anemia Anxiety disorder in conditions classified elsewhere Arthritis 03/03/2016 Bipolar I disorder, most recent episode (or current) unspecified Hypothyroidism Myalgia and myositis, unspecified REMIGIO (obstructive sleep apnea) DME - [employer] for AutoPAP Other and unspecified hyperlipidemia Right ankle sprain 05/31/2017 Sjogren's disease (HCC) Type II or unspecified type diabetes mellitus without mention of complication, uncontrolled since 2002 Unspecified essential hypertension Unspecified vitamin D deficiency 03/10/2007 PAST SURGICAL HISTORY Procedure Laterality Date ANTERIOR INTERBODY FUSION, CERVICAL 09/13/2009 C5-C6 ARTHROSCOPY KNEE DIAGNOSTIC W/WO SYNOVIAL BX SPX Right knee COLONOSCOPY FLX DX W/COLLJ SPEC WHEN PFRMD 09/13/2002 Colonoscopy - diagnosed with IBS COLONOSCOPY FLX DX W/COLLJ SPEC WHEN PFRMD 04/05/2013 Colonoscopy repeat 3 years COLONOSCOPY FLX DX W/COLLJ SPEC WHEN PFRMD 03/18/2016 Colonoscopy (MAC) ESOPHAGOGASTRODUODENOSCOPY TRANSORAL DIAGNOSTIC 04/05/2013 EGD ESOPHAGOGASTRODUODENOSCOPY TRANSORAL DIAGNOSTIC 01/02/2015 EGD LAP ADJUSTABLE GASTRIC BAND 08/13/2008 PAST SURGICAL HISTORY OF left foot surgery PAST SURGICAL HISTORY OF 02/11/2013 left carpal tunnel PAST SURGICAL HISTORY OF 02/11/2013 radial styloidectomy PAST SURGICAL HISTORY OF 09/13/2013 c5,c6 refusion PT ED BARIATRIC AND METABOLIC N/A 08/2022 THYROIDECTOMY TOTAL/COMPLETE partial right - non malignant TONSILLECTOMY PRIMARY/SECONDARY Tonsillectomy ALLERGIES Imitrex [Sumatriptan] MEDICATIONS gabapentin (NEURONTIN) 300 mg capsule Take 1 capsule by mouth two times a day for 90 days. eletriptan (RELPAX) 20 mg tablet Take 1 at start of headache, may repeat in 2 hours if necessary (total of 3 tablets) potassium chloride (K-TAB) 10 mEq tablet Take 1 tablet by mouth twice daily. levothyroxine (SYNTHROID) 88 mcg tablet Take 1/2 tablet 3 days a week and whole tablet rest of the week. lisinopril (ZESTRIL) 20 mg tablet Take 1 tablet by mouth twice daily. atorvastatin (LIPITOR) 20 mg tablet Take 1 tablet by mouth once daily. CPAP/BIPAP/OTHER BiPAP 25/20 cmH2O. [employer]. Type .CPAPSettings into a note to see current settings/supplies/DME information. metoprolol tartrate, short acting, (LOPRESSOR) 12.5 mg tab Take 12.5 mg by mouth every 12 hours. CPAP Bilevel 25/20 cmH2O, Resmed F20 FFM (small), Ti max 2.0, Ti min 0.3, Trigger medium, Cycle medium, HUMIDITY, LIFETIME SUPPLIES. leflunomide (ARAVA) 10 mg tablet Take 2 tablets by mouth once daily. cyclobenzaprine (FLEXERIL) 10 mg tablet Take 1 tablet by mouth three times daily. (Patient taking differently: Take 10 mg by mouth two times a day.) Cholecalciferol, Vitamin D3, (VITAMIN D) 1,000 unit tab Take 1,000 Units by mouth once daily. sulfaSALAzine (AZULFIDINE) 500 mg tablet Take 1 tablet by mouth twice daily. (Patient taking differently: Take 1,000 mg by mouth two times a day.) aripiprazole (ABILIFY) 2 mg tablet Take 1 tablet by mouth twice daily. cevimeline (EVOXAC) 30 mg ORAL capsul (more content not included)... [facility] 09-24-2023 Note HNO ID: [id number] Author: DENVER YU DO Service: ? Author Type: Physician Type: Progress Notes Filed: 09/24/2023 08:17 Note Text: UNIVERSAL PROTOCOL / SAFETY CHECKLIST Procedure to be Performed: EMG Sign In: A Moment of CARE was completed. Personnel directly involved with the procedure wore the appropriate PPE (Personal Protective Equipment). Patient/Surrogate Stated/Verified: PATIENT VERIFIED(optional for EMERGENT procedures): Patient name, Date of , Relevant allergies, and The intended procedure Time Out Communication: Intended patient and procedure match the source documents. Correct side/site marked and visible. Sign Out: SIGN OUT (optional for EMERGENT procedures): Post-procedure follow-up management communicated and Plan of Care Visit completed when applicable. Miranda Cronin, EMG Tech Denver Yu DO [facility] 09-02-2023 Note [facility] PROGRESS NOTE POST WEIGHT LOSS SURGERY FOLLOW UP Patient: Santos Allan Service Date: 09/02/2023 Patient is 12 month(s) s/p Sleeve Gastrectomy Today's Metrics: Post-Surgical Weight Loss Date: 09/02/23 Height: 5' 6.25 (168.3 cm) ([facility] - ht recheck) Weight: 229 lb (104 kg) ([facility]) BMI: 36.68 Weight Change: 16.6 lbs Total Weight Change: -43.8 lbs % EBWL: 32% Comments: 12M Pre-op Weight Metrics: Post-op Weight Metrics: %EBWL: % EBWL: 32% Weight Change Since Last Visit: Weight Change: 16.6 lbs Weight Change from Highest Pre-op Weight: Total Weight Change: -43.8 lbs Patient has the following questions: None Reported Pain: Patient rates pain on scale 0-10 as: 5 Exercise Compliance: Exercising: yes If yes: Type: walking Times per week: 5-6 Min per session: 30 Falls Risk Assessment Patient does take medications which affect BP or mental status Patient does not have newly prescribed or changed dosage of medications within past 30 days which affect BP or mental status Patient has not fallen in the past 2 months Patient does not demonstrate unsteady gait Patient uses the following ambulatory assistive devices: none Patient states the presence of the following traits which increases risk of fall: none Patient is not on home O2 Labs Completed: yes - If NO, patient instructed to get labs drawn today or BRUNILDA If YES: Labs completed at [facility]? no If yes see Labs Tab Labs completed at Non-[facility] facility? yes If yes see Encounters Tab - Orders only - Historical Provider - Date: 08/20/2023 Completed by: Kristina Dillard MA [facility] 09-02-2023 History of Present illness Narrative [facility] SURGICAL [facility] Patient: Santos Allan Date of : 1965 Service Date: 09/02/2023 HPI: Patient here today for 12 month post-weight loss surgery follow up She is feeling well. Denies nausea, vomiting, dysphagia, or any GERD Sx. Currently is on any PPI. Patient states diet and exercise is going fairly well. Currently is eating 65-75 gm/day protein, and is compliant with prescribed multivitamins and supplements. Vital signs are stable. Labs were Completed All labs were: normal Physical Examination: BP 128/83 Pulse 85 Temp (!) 35.8 C (96.5 F) Resp 16 Ht 5' 6.25 (1.683 m) Wt 229 lb (104 kg) BMI 36.68 kg/m General: This patient is awake, alert, and oriented, and is in no apparent distress. Abdomen: Obese, soft, non-tender, non-distended without masses/ No evidence of abdominal hernia / Incisions consistent with previous surgeries. Extremities: No cyanosis, clubbing or edema/ No calf tenderness/No restrictions of movement, is ambulatory without assistance. Neurological: Intact x 4 extremities, no focal deficits notes. Skin: No rashes or lesions noted. Rectal: Deferred Current Medications: Patient's Medications New Prescriptions No medications on file Previous Medications ARIPIPRAZOLE (ABILIFY) 2 MG TABLET Every 24 hours. ATORVASTATIN (LIPITOR) 20 MG TABLET Take 20 mg by mouth daily. CEVIMELINE (EVOXAC) 30 MG CAPSULE every 12 hours. CITALOPRAM (CELEXA) 10 MG TABLET Take 10 mg by mouth daily. CITALOPRAM (CELEXA) 20 MG TABLET daily. CYANOCOBALAMIN (VITAMIN B-12) 500 MCG TABLET Every 24 hours. CYCLOBENZAPRINE (FLEXERIL) 10 MG TABLET Take 10 mg by mouth at noon and 10 mg in the evening. GABAPENTIN (NEURONTIN) 300 MG CAPSULE Take 300 mg by mouth in the morning. HYDROCHLOROTHIAZIDE (HYDRODIURIL) 12.5 MG TABLET Take 12.5 mg by mouth in the morning. HYDROXYCHLOROQUINE (PLAQUENIL) 200 MG TABLET Take 200 mg by mouth at noon and 200 mg in the evening. LEFLUNOMIDE (ARAVA) 20 MG TABLET daily. LEVOTHYROXINE (SYNTHROID, LEVOXYL) 88 MCG TABLET Take 88 mcg by mouth daily. LISINOPRIL 20 MG TABLET twice a day. METOPROLOL SUCCINATE XL (TOPROL-XL) 25 MG 24 HR TABLET OMEPRAZOLE (PRILOSEC) [address] CAPSULE Take 1 capsule (20 mg) by mouth daily. Do not crush or chew. POTASSIUM CHLORIDE CR (KLOR-CON) 10 MEQ ER TABLET Take 10 mEq by mouth 2 times daily. RESPIRATORY THERAPY SUPPLIES (CARETOUCH CPAP & BIPAP HOSE) MISC 12-20 cm Nightly. SULFASALAZINE (AZULFIDINE) 500 MG EC TABLET Take 1,000 mg by mouth in the morning and 1,000 mg before bedtime. VITAMIN D PO Take 2,000 Int'l Units by mouth daily. Modified Medications No medications on file Discontinued Medications UBIQUINOL 200 MG CAPSULE Take 200 mg by mouth daily. Medications ordered during this encounter: Outpatient Encounter Medications as of 09/02/2023 Medication Sig Dispense Refill ARIPiprazole (Abilify) 2 MG tablet Every 24 hours. atorvastatin (Lipitor) 20 MG tablet Take 20 mg by mouth daily. cevimeline (Evoxac) 30 MG capsule every 12 hours. citalopram (CeleXA) 10 MG tablet Take 10 mg by mouth daily. citalopram (CeleXA) 20 MG tablet daily. cyanocobalamin (Vitamin B-12) 500 MCG tablet Every 24 hours. cyclobenzaprine (Flexeril) 10 MG tablet Take 10 mg by mouth at noon and 10 mg in the evening. gabapentin (Neurontin) 300 MG capsule Take 300 mg by mouth in the morning. hydroCHLOROthiazide (HYDRODiuril) 12.5 MG tablet Take 12.5 mg by mouth in the morning. hydroxychloroquine (Plaquenil) 200 MG tablet Take 200 mg by mouth at noon and 200 mg in the evening. leflunomide (Arava) 20 MG tablet daily. levothyroxine (Synthroid, Levoxyl) 88 MCG tablet Take 88 mcg by mouth daily. lisinopril 20 MG tablet twice a day. metoprolol succinate XL (Toprol-XL) 25 MG 24 hr tablet potassium chloride CR (Klor-Con) 10 MEQ ER tablet Take 10 mEq by mouth 2 times daily. Respiratory Therapy Supplies ([employer] CPAP & BIPAP Hose) misc 12-20 cm Nightly. sulfaSALAzine (Azulfidine) 500 MG EC tablet Take 1,000 mg by mouth in the morning and 1,000 mg before bedtime. VITAMIN D PO Take 2,000 Int'l Units by mouth daily. omeprazole (PriLOSEC) [address] capsule Take 1 capsule (20 mg) by mouth daily. Do not crush or chew. (Patient not taking: Reported on 09/02/2023) 90 capsule 0 [DISCONTINUED] Ubiquinol 200 MG capsule Take 200 mg by mouth daily. No facility-administered encounter medications on file as of 09/02/2023. Orders Placed This Encounter Procedures Zinc Folate Iron Ferritin Magnesium Vitamin D Deficiency Screening (Vit D 25) Vitamin B12 Vitamin B1, whole blood Lipid panel Comprehensive metabolic panel CBC Visit Diagnoses: 1. REMIGIO on CPAP 2. Primary hypertension 3. Deficiency of multiple nutrient elements 4. Hyperlipidemia, unspecified hyperlipidemia type 5. Class 2 severe obesity due to excess calories with serious comorbidity and body mass index (BMI) of 36.0 to 36.9 in adult Plan: 1). Diet and Exercise: Walking as able 2). Continue to monitor for signs and symptoms of GERD / Continue PPI 3). Labs: normal 4). Psych concerns : No 5). Excessive skin concerns: No - will discuss at 18 month visit once weight stability achieved. 6). If patient is a woman of childrearing age- 18-50. We discussed the importance of contraception during the first 12-18 months post op, and we discussed that fertility will increase following the procedure. Advised patient to discuss with her OBGYN regarding contraception. Patient counseled with good understanding verbalized. 7). Weight loss: Post-op Weight Metrics: %EBWL: % EBWL: 32% Weight Change Since Last Visit: Weight Change: 16.6 lbs Weight Change from Highest Pre-op Weight: Total Weight Change: -43.8 lbs She met with the dietitian today to review our vitamin and protein recommendations. Increase activity as recommended, the wounds are healed, no evidence of abdominal wall hernias. No nausea vomiting or dysphagia noted. Appropriate bowel function, discussed with her regarding contacting us for any questions or concerns. The lab slip was signed for the next visit, labs from 08/02/23 were reviewed and are within normal limits. Follow-up 18 months postop. I personally performed the evaluation and management of Santos Allan in the development of a treatment plan for this patient. I personally interviewed the patient and performed an individual physical examination. In addition, I discussed the patient's condition and treatment options with them. I have also reviewed and agree with the past medical, family and social history unless otherwise noted. All of the patient's questions were answered. I discussed/counseled the patient regarding the postoperative care plan for this patient. The patient was seen and examined independently and relevant data reviewed by myself. A full chart review was performed. Patient Care Team: Olga Bolaños MD as PCP - General Saman Moctezuma MD as Surgeon (Bariatric Surgery) PHILL Mojica as Physician Engine Hostler (Bariatrics) [facility] PROGRESS NOTE POST WEIGHT LOSS SURGERY FOLLOW UP Patient: Santos Allan Service Date: 09/02/2023 Patient is 12 month(s) s/p Sleeve Gastrectomy Today's Metrics: Post-Surgical Weight Loss Date: 09/02/23 Height: 5' 6.25 (168.3 cm) ([facility] - ht recheck) Weight: 229 lb (104 kg) ([facility]) BMI: 36.68 Weight Change: 16.6 lbs Total Weight Change: -43.8 lbs % EBWL: 32% Comments: 12M Pre-op Weight Metrics: Post-op Weight Metrics: %EBWL: % EBWL: 32% Weight Change Since Last Visit: Weight Change: 16.6 lbs Weight Change from Highest Pre-op Weight: Total Weight Change: -43.8 lbs Patient has the following questions: None Reported Pain: Patient rates pain on scale 0-10 as: 5 Exercise Compliance: Exercising: yes If yes: Type: walking Times per week: 5-6 Min per session: 30 Falls Risk Assessment Patient does take medications which affect BP or mental status Patient does not have newly prescribed or changed dosage of medications within past 30 days which affect BP or mental status Patient has not fallen in the past 2 months Patient does not demonstrate unsteady gait Patient uses the following ambulatory assistive devices: none Patient states the presence of the following traits which increases risk of fall: none Patient is not on home O2 Labs Completed: yes - If NO, patient instructed to get labs drawn today or BRUNILDA If YES: Labs completed at [facility]? no If yes see Labs Tab Labs completed at Non-[facility] facility? yes If yes see Encounters Tab - Orders only - Historical Provider - Date: 08/20/2023 Completed by: Kristina Dillard MA [facility]IC [facility] > 6 MONTH POST-OPERATIVE DIETITIAN VISIT Date: 09/02/23 Patient's weight decreased by: 43.8 lbs Patient does consume 5-6 small meals daily Patient s portions are adequate for current diet: -1 cup Protein requirements discussed- currently consuming 70-90 grams protein daily. Current protein sources: protein shake, turkey, chicken, peanut butter, lean ground beef, eggs, cheese, yogurt Recommendations:none Fluid requirements discussed. Current Fluid Intake: 96 oz/day Patient does drink sugar-free, caffeine-free and carbonation-free fluids only. Patient does wait 30 minutes before and after meals to drink Exercise activities discussed. Patient does currently exercise. She was reminded that regular exercise is critical part of a successful outcome following weight loss surgery. (Walking) Behavioral/Emotional changes reviewed. Patient does feel comfortable with changes in eating behaviors and associated emotional changes. She was reminded that psychological counseling is available through [facility] post-[facility]. Recent Nutrient Concerns and Vitamin Supplementation Changes: Pt compliant with vitamin/mineral protocol. Labs scanned in Media-WNL; pt showed this RD zinc and Vitamin B1 on phone, also WNL. Notes/Comments: Pt doing well. Pt encouraged to call/Mychart with questions. Visit completed by: Marilou Clifton RD documented in this encounter [facility] 08-30-2023 Note HNO ID: [id number] Author: Katarina La APRN.FRONT DESK CLERK Service: ? 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 [place] transfer Postmenopausal: Yes since 2019 HRT use: No. Last Pap 08/28/22 normal HPV: negative History of abnormal pap: No Last mammogram: 2022 normal History of abnormal mammogram: No Sexually active: No OB History T0 L0 SAB0 IAB0 Ectopic0 Multiple0 Live Births0 Seasonal Recruiter History LMP: 02/13/2019 (Approximate), Postmenopausal Age at Menarche: Age at First : Age at Menopause: Seasonal Recruiter History Comments: Sexual Activity: Yes; Male Contraception: No contraception data on record PAST MEDICAL HISTORY Diagnosis Date Acid reflux Anemia Anxiety disorder in conditions classified elsewhere Arthritis 03/03/2016 Bipolar I disorder, most recent episode (or current) unspecified Hypothyroidism Myalgia and myositis, unspecified REMIGIO (obstructive sleep apnea) DME - [employer] for AutoPAP Other and unspecified hyperlipidemia Right ankle sprain 05/31/2017 Sjogren's disease (HCC) Type II or unspecified type diabetes mellitus without mention of complication, uncontrolled since 2002 Unspecified essential hypertension Unspecified vitamin D deficiency 03/10/2007 PAST SURGICAL HISTORY Procedure Laterality Date ANTERIOR INTERBODY FUSION, CERVICAL 09/13/2009 C5-C6 ARTHROSCOPY KNEE DIAGNOSTIC W/WO SYNOVIAL BX SPX Right knee COLONOSCOPY FLX DX W/COLLJ SPEC WHEN PFRMD 09/13/2002 Colonoscopy - diagnosed with IBS COLONOSCOPY FLX DX W/COLLJ SPEC WHEN PFRMD 04/05/2013 Colonoscopy repeat 3 years COLONOSCOPY FLX DX W/COLLJ SPEC WHEN PFRMD 03/18/2016 Colonoscopy (MAC) ESOPHAGOGASTRODUODENOSCOPY TRANSORAL DIAGNOSTIC 04/05/2013 EGD ESOPHAGOGASTRODUODENOSCOPY TRANSORAL DIAGNOSTIC 01/02/2015 EGD LAP ADJUSTABLE GASTRIC BAND 08/13/2008 PAST SURGICAL HISTORY OF left foot surgery PAST SURGICAL HISTORY OF 02/11/2013 left carpal tunnel PAST SURGICAL HISTORY OF 02/11/2013 radial styloidectomy PAST SURGICAL HISTORY OF 09/13/2013 c5,c6 refusion PT ED BARIATRIC AND METABOLIC N/A 08/2022 THYROIDECTOMY TOTAL/COMPLETE partial right - non malignant TONSILLECTOMY PRIMARY/SECONDARY Tonsillectomy FAMILY HISTORY Problem Relation Age of Onset Diabetes Mother Hypertension Mother Psychiatry Mother bipolar Breast Cancer Mother Cancer Mother breast, uterus/bone Lipids Mother Diabetes Father Hypertension Father Osteoporosis Father Colon Cancer Father Stroke Father Lipids Father Headache Father Hypertension Brother Lipids Brother Headache Brother Diabetes Brother SOCIAL HISTORY Social History Tobacco Use Smoking status: Former Packs/day: 0.50 Years: 20.00 Additional pack years: 0.00 Total pack years: 10.00 Types: Cigarettes Quit date: 06/14/2003 Years since quittin.2 Passive exposure: Never Smokeless tobacco: Never Vaping Use Vaping Use: Never used Substance Use Topics Alcohol use: Yes Comment: Occaisionally Drug use: No REVIEW OF SYSTEMS Abdomen: No abdominal pain, nausea, vomiting, diarrhea, or constipation. No bloating, early satiety, indigestion, or increased flatulence. Bladder: No dysuria, gross hematuria, +urinary frequency, +urinary urgency, + someincontinence Breast: No breast lumps, nipple d/c, overlying skin changes, redness or skin retraction Allergies and current medication updated:Yes EXAM: Ht 5' 6.25 (1.68m) Wt 229 lb 9.6 oz (104.1kg) LMP 02/13/2019 BMI 36.77 kg/(m2). GENERAL: pleasant, female in no apparent distress HEENT: Normocephalic, atraumatic, mucus membranes moist, and no lesions NECK: Supple, full range of motion, no adenopathy, and thyroid normal DERMATOLOGY: Normal, without lesions, non-icteric, and non-hirsute BREAST: soft, non-tender, symmetric, no dominant mass, normal nipple-areolar complex, no lymphadenopathy, and no nipple discharge CHEST: Normal inspiratory effort ABDOMEN: soft, non-tender, and no masses PELVIC: external genitalia normal, normal Bartholin's glands, urethra, [place]'s glands, no vulvar lesions, no cervical lesions, physiologic discharge present, normal appearing perineal body and perianal region BIMANUAL: uterus normal size, shape and consistency, no adnexal masses, and non-tender RECTOVAGINAL: deferred. NEURO: alert and oriented x3,exam grossly non-focal EXTREMITIES: normal ASSESSMENT/PLAN: 1) Health maintenance: Pap/HPV up to date. Mammogram ordered Nutrition, exercise and routine health maintenance exams reviewed. Calcium/Vitamin D supplementation information provided. Colon cancer screening: up to date with screening BMD: up to date 10/05 normal 2) Follow up one year or sooner as needed Katarina La APRN.BRITANY [facility] 08-19-2023 Note HNO ID: [id number] Author: Micki Underwood APRN.BRITANY Service: ? Author Type: Nurse Practitioner Type: Progress Notes Filed: 08/19/2023 1:04 PM Note Text: CC: Patient presents with: Follow Up: neuropathy of feet HPI Santos Allan is a 57 year old female who presents today for neuropathy. Started over a year ago with burning pain to feet intermittently at night with some numbness with starting topamax which she stopped 6 months ago. Over the last 6 months the pain is more severe and more constant. Now is all the time day and night varying in severity. Recent lumbar xray showing DDD. Seeing pain management and having nerves burned. Was seen via virtual visit a few weeks ago and started on gabapentin. Recent TSH, vit B12, iron, HgbA1c and other blood work all within acceptable ranges. Denies injury, edema, discoloration, falling, or weakness. REVIEW OF SYSTEMS General: no fevers, no chills, no night sweats, no recurrent infections, no change in appetite, no change in energy, and no significant changes in weight Respiratory: no cough, no wheezing, no shortness of breath, no hemoptysis Cardiovascular: no chest pain, no chest pressure, no palpitations, and no swelling Neurologic: No headache, weakness, dizziness, memory loss, syncope. PAST MEDICAL HISTORY Diagnosis Date Acid reflux Anemia Anxiety disorder in conditions classified elsewhere Arthritis 03/03/2016 Bipolar I disorder, most recent episode (or current) unspecified Hypothyroidism Myalgia and myositis, unspecified REMIGIO (obstructive sleep apnea) DME - [employer] for AutoPAP Other and unspecified hyperlipidemia Right ankle sprain 05/31/2017 Sjogren's disease (HCC) Type II or unspecified type diabetes mellitus without mention of complication, uncontrolled since 2002 Unspecified essential hypertension Unspecified vitamin D deficiency 03/10/2007 PAST SURGICAL HISTORY Procedure Laterality Date ANTERIOR INTERBODY FUSION, CERVICAL 09/13/2009 C5-C6 ARTHROSCOPY KNEE DIAGNOSTIC W/WO SYNOVIAL BX SPX Right knee COLONOSCOPY FLX DX W/COLLJ SPEC WHEN PFRMD 09/13/2002 Colonoscopy - diagnosed with IBS COLONOSCOPY FLX DX W/COLLJ SPEC WHEN PFRMD 04/05/2013 Colonoscopy repeat 3 years COLONOSCOPY FLX DX W/COLLJ SPEC WHEN PFRMD 03/18/2016 Colonoscopy (MAC) ESOPHAGOGASTRODUODENOSCOPY TRANSORAL DIAGNOSTIC 04/05/2013 EGD ESOPHAGOGASTRODUODENOSCOPY TRANSORAL DIAGNOSTIC 01/02/2015 EGD LAP ADJUSTABLE GASTRIC BAND 08/13/2008 PAST SURGICAL HISTORY OF left foot surgery PAST SURGICAL HISTORY OF 02/11/2013 left carpal tunnel PAST SURGICAL HISTORY OF 02/11/2013 radial styloidectomy PAST SURGICAL HISTORY OF 09/13/2013 c5,c6 refusion PT ED BARIATRIC AND METABOLIC N/A 08/2022 THYROIDECTOMY TOTAL/COMPLETE partial right - non malignant TONSILLECTOMY PRIMARY/SECONDARY Tonsillectomy ALLERGIES Imitrex [Sumatriptan] MEDICATIONS gabapentin (NEURONTIN) 100 mg capsule Take 1 capsule by mouth daily at bedtime for 90 days. eletriptan (RELPAX) 20 mg tablet Take 1 at start of headache, may repeat in 2 hours if necessary (total of 3 tablets) potassium chloride (K-TAB) 10 mEq tablet Take 1 tablet by mouth twice daily. levothyroxine (SYNTHROID) 88 mcg tablet Take 1/2 tablet 3 days a week and whole tablet rest of the week. lisinopril (ZESTRIL) 20 mg tablet Take 1 tablet by mouth twice daily. atorvastatin (LIPITOR) 20 mg tablet Take 1 tablet by mouth once daily. CPAP/BIPAP/OTHER BiPAP 25/20 cmH2O. [employer]. Type .CPAPSettings into a note to see current settings/supplies/DME information. metoprolol tartrate, short acting, (LOPRESSOR) 12.5 mg tab Take 12.5 mg by mouth every 12 hours. CPAP Bilevel 25/20 cmH2O, Resmed F20 FFM (small), Ti max 2.0, Ti min 0.3, Trigger medium, Cycle medium, HUMIDITY, LIFETIME SUPPLIES. leflunomide (ARAVA) 10 mg tablet Take 2 tablets by mouth once daily. cyclobenzaprine (FLEXERIL) 10 mg tablet Take 1 tablet by mouth three times daily. (Patient taking differently: Take 10 mg by mouth two times a day.) Cholecalciferol, Vitamin D3, (VITAMIN D) 1,000 unit tab Take 1,000 Units by mouth once daily. sulfaSALAzine (AZULFIDINE) 500 mg tablet Take 1 tablet by mouth twice daily. (Patient taking differently: Take 1,000 mg by mouth two times a day.) aripiprazole (ABILIFY) 2 mg tablet Take 1 tablet by mouth twice daily. cevimeline (EVOXAC) 30 mg ORAL capsule Take 60 mg by mouth twice daily. citalopram hydrobromide(CELEXA 20 MG TAB) Take 1.5 tablet daily. sodium fluoride/pot nitrate(PREVIDENT 5000 SENSITIVE 1.1 %-5 % DENTAL PASTE) doxycycline 20 mg tablet Take 1 tablet by mouth twice daily. meloxicam (MOBIC) 15 mg tablet Take 1 tablet by mouth once daily. With food. FAMILY HISTORY Problem Relation Age of Onset Diabetes Mother Hypertension Mother Psychiatry Mother bipolar Breast Cancer Mother Cancer Mother breast, uterus/bone Lipids Mother Diabetes Father Hypertension (more content not included)... [facility] 08-19-2023 History of Present illness Narrative CC: Patient presents with: Follow Up: neuropathy of feet HPI Santos Allan is a 57 year old female who presents today for neuropathy. Started over a year ago with burning pain to feet intermittently at night with some numbness with starting topamax which she stopped 6 months ago. Over the last 6 months the pain is more severe and more constant. Now is all the time day and night varying in severity. Recent lumbar xray showing DDD. Seeing pain management and having nerves burned. Was seen via virtual visit a few weeks ago and started on gabapentin. Recent TSH, vit B12, iron, HgbA1c and other blood work all within acceptable ranges. Denies injury, edema, discoloration, falling, or weakness. REVIEW OF SYSTEMS General: no fevers, no chills, no night sweats, no recurrent infections, no change in appetite, no change in energy, and no significant changes in weight Respiratory: no cough, no wheezing, no shortness of breath, no hemoptysis Cardiovascular: no chest pain, no chest pressure, no palpitations, and no swelling Neurologic: No headache, weakness, dizziness, memory loss, syncope. PAST MEDICAL HISTORY Diagnosis Date Acid reflux Anemia Anxiety disorder in conditions classified elsewhere Arthritis 03/03/2016 Bipolar I disorder, most recent episode (or current) unspecified Hypothyroidism Myalgia and myositis, unspecified REMIGIO (obstructive sleep apnea) DME - [employer] for AutoPAP Other and unspecified hyperlipidemia Right ankle sprain 05/31/2017 Sjogren's disease (HCC) Type II or unspecified type diabetes mellitus without mention of complication, uncontrolled since 2002 Unspecified essential hypertension Unspecified vitamin D deficiency 03/10/2007 PAST SURGICAL HISTORY Procedure Laterality Date ANTERIOR INTERBODY FUSION, CERVICAL 09/13/2009 C5-C6 ARTHROSCOPY KNEE DIAGNOSTIC W/WO SYNOVIAL BX SPX Right knee COLONOSCOPY FLX DX W/COLLJ SPEC WHEN PFRMD 09/13/2002 Colonoscopy - diagnosed with IBS COLONOSCOPY FLX DX W/COLLJ SPEC WHEN PFRMD 04/05/2013 Colonoscopy repeat 3 years COLONOSCOPY FLX DX W/COLLJ SPEC WHEN PFRMD 03/18/2016 Colonoscopy (MAC) ESOPHAGOGASTRODUODENOSCOPY TRANSORAL DIAGNOSTIC 04/05/2013 EGD ESOPHAGOGASTRODUODENOSCOPY TRANSORAL DIAGNOSTIC 01/02/2015 EGD LAP ADJUSTABLE GASTRIC BAND 08/13/2008 PAST SURGICAL HISTORY OF left foot surgery PAST SURGICAL HISTORY OF 02/11/2013 left carpal tunnel PAST SURGICAL HISTORY OF 02/11/2013 radial styloidectomy PAST SURGICAL HISTORY OF 09/13/2013 c5,c6 refusion PT ED BARIATRIC AND METABOLIC N/A 08/2022 THYROIDECTOMY TOTAL/COMPLETE partial right - non malignant TONSILLECTOMY PRIMARY/SECONDARY <AGE 12 Tonsillectomy ALLERGIES Imitrex [Sumatriptan] MEDICATIONS gabapentin (NEURONTIN) 100 mg capsule Take 1 capsule by mouth daily at bedtime for 90 days. eletriptan (RELPAX) 20 mg tablet Take 1 at start of headache, may repeat in 2 hours if necessary (total of 3 tablets) potassium chloride (K-TAB) 10 mEq tablet Take 1 tablet by mouth twice daily. levothyroxine (SYNTHROID) 88 mcg tablet Take 1/2 tablet 3 days a week and whole tablet rest of the week. lisinopril (ZESTRIL) 20 mg tablet Take 1 tablet by mouth twice daily. atorvastatin (LIPITOR) 20 mg tablet Take 1 tablet by mouth once daily. CPAP/BIPAP/OTHER BiPAP 25/20 cmH2O. [employer]. Type .CPAPSettings into a note to see current settings/supplies/DME information. metoprolol tartrate, short acting, (LOPRESSOR) 12.5 mg tab Take 12.5 mg by mouth every 12 hours. CPAP Bilevel 25/20 cmH2O, Resmed F20 FFM (small), Ti max 2.0, Ti min 0.3, Trigger medium, Cycle medium, HUMIDITY, LIFETIME SUPPLIES. leflunomide (ARAVA) 10 mg tablet Take 2 tablets by mouth once daily. cyclobenzaprine (FLEXERIL) 10 mg tablet Take 1 tablet by mouth three times daily. (Patient taking differently: Take 10 mg by mouth two times a day.) Cholecalciferol, Vitamin D3, (VITAMIN D) 1,000 unit tab Take 1,000 Units by mouth once daily. sulfaSALAzine (AZULFIDINE) 500 mg tablet Take 1 tablet by mouth twice daily. (Patient taking differently: Take 1,000 mg by mouth two times a day.) aripiprazole (ABILIFY) 2 mg tablet Take 1 tablet by mouth twice daily. cevimeline (EVOXAC) 30 mg ORAL capsule Take 60 mg by mouth twice daily. citalopram hydrobromide(CELEXA 20 MG TAB) Take 1.5 tablet daily. sodium fluoride/pot nitrate(PREVIDENT 5000 SENSITIVE 1.1 %-5 % DENTAL PASTE) doxycycline 20 mg tablet Take 1 tablet by mouth twice daily. meloxicam (MOBIC) 15 mg tablet Take 1 tablet by mouth once daily. With food. FAMILY HISTORY Problem Relation Age of Onset Diabetes Mother Hypertension Mother Psychiatry Mother bipolar Breast Cancer Mother Cancer Mother breast, uterus/bone Lipids Mother Diabetes Father Hypertension Father Osteoporosis Father Colon Cancer Father Stroke Father Lipids Father Headache Father Hypertension Brother Lipids Brother Headache Brother Diabetes Brother Social History Tobacco Use Smoking status: Former Packs/day: 0.50 Years: 20.00 Additional pack years: 0.00 Total pack years: 10.00 Types: Cigarettes Quit date: 06/14/2003 Years since quittin.1 Smokeless tobacco: Never Vaping Use Vaping Use: Never used Substance Use Topics Alcohol use: Yes Comment: Occaisionally Drug use: No PHYSICAL EXAM BP 136/84 Pulse 76 Resp 16 Wt 103.4 kg (228 lb) LMP 02/13/2019 (Approximate) SpO2 96% BMI 35.71 kg/m General Appearance: well appearing, in no acute distress, alert Skin: Skin color, texture, turgor normal for age; Eyes: conjunctiva pink and moist, no icterus, sclera white, non-injected Lungs: Lungs clear to auscultation. No wheezing, rhonchi, rales. Heart: RRR without murmur, gallop, or rubs. No ectopy Extremities: No deformities, edema, skin discoloration, clubbing or cyanosis. Good capillary refill. Feet:Shoes and socks removed, normal distal pulses, sensitive to 10 gm monofilament, and vibratory perception normal Health maintenance reviewed with patient: BP Controlled (<130/80) Never done Mammogram Screening due on 08/02/2021 Covid-19 Vaccine( - 2022- season) due on 05/14/2023 Hepatitis B Vaccine(1 of 3 - 3-dose series) due on 08/28/2023 Pneumococcal Vaccine(3 - PCV) due on 08/28/2023 Pap Testing due on 06/15/2024 HPV Testing due on 06/15/2024 Annual PCP Team Chronic Disease Visit due on 08/02/2024 Diabetes Screening due on 03/19/2026 DTaP,Tdap,Td Vaccine(3 - Td or Tdap) due on 07/03/2027 Lipid Screening due on 03/19/2028 Colorectal Cancer Screening due on 04/17/2031 Influenza Vaccine Completed Depression Assessment Completed Hepatitis C Screening Completed HIV Screening Completed Shingrix Vaccine Completed DATA REVIEWED: Most recent labs ASSESSMENT/PLAN: 1. Burning sensation of feet - ICD9: 782.0, ICD10: R20.8 Labs unremarkable - assessment normal. Get EMG as previously ordered. - gabapentin increased. - keep upcoming appointment. Prescription instructions reviewed with patient as applicable. Potential red flag symptoms discussed with the patient. Reviewed appropriate action plan to take if red flag symptoms occur. Patient agreeable to treatment plan. Micki Underwood APRN.BRITANY documented in this encounter [facility] 08-03-2023 Note Patient Outreach (IN [facility]) SANTOS ALLAN ([id number]) 1965 F Date Time Provider Department 08/03/23 OLGA BOLAÑOS During your visit today, we recorded the following information about you: Allergies As of Date: 08/03/2023 Noted Allergy Reaction IMITREX (SUMATRIPTAN) 07/25/2007 Comments: Face went numb Date Reviewed: 03/24/2023 Reviewed by: Luis Montanez APRN.CNP - Fully Assessed Visit Diagnosis:Acquired hypothyroidism [E03.9] Order(s):TSH BLD [SQTSH] Order #: [id number] FUTURE Prescriptions as of 08/06/2023 - gabapentin (NEURONTIN) 100 mg capsule Take 1 capsule by mouth daily at bedtime for 90 days. - eletriptan (RELPAX) 20 mg tablet Take 1 at start of headache, may repeat in 2 hours if necessary (total of 3 tablets) - doxycycline 20 mg tablet Take 1 tablet by mouth twice daily. - meloxicam (MOBIC) 15 mg tablet Take 1 tablet by mouth once daily. With food. - potassium chloride (K-TAB) 10 mEq tablet Take 1 tablet by mouth twice daily. - levothyroxine (SYNTHROID) 88 mcg tablet Take 1/2 tablet 3 days a week and whole tablet rest of the week. - lisinopril (ZESTRIL) 20 mg tablet Take 1 tablet by mouth twice daily. - atorvastatin (LIPITOR) 20 mg tablet Take 1 tablet by mouth once daily. - CPAP/BIPAP/OTHER BiPAP 25/20 cmH2O. [employer]. Type .CPAPSettings into a note to see current settings/supplies/DME information. - metoprolol tartrate, short acting, (LOPRESSOR) 12.5 mg tab Take 12.5 mg by mouth every 12 hours. - CPAP Bilevel 25/20 cmH2O, Resmed F20 FFM (small), Ti max 2.0, Ti min 0.3, Trigger medium, Cycle medium, HUMIDITY, LIFETIME SUPPLIES. - leflunomide (ARAVA) 10 mg tablet Take 2 tablets by mouth once daily. - cyclobenzaprine (FLEXERIL) 10 mg tablet Take 1 tablet by mouth three times daily. - Cholecalciferol, Vitamin D3, (VITAMIN D) 1,000 unit tab Take 1,000 Units by mouth once daily. - sulfaSALAzine (AZULFIDINE) 500 mg tablet Take 1 tablet by mouth twice daily. - aripiprazole (ABILIFY) 2 mg tablet Take 1 tablet by mouth twice daily. - cevimeline (EVOXAC) 30 mg ORAL capsule Take 60 mg by mouth twice daily. - citalopram hydrobromide(CELEXA 20 MG TAB) Take 1.5 tablet daily. - sodium fluoride/pot nitrate(PREVIDENT 5000 SENSITIVE 1.1 %-5 % DENTAL PASTE) Problem List As Of Date 08/03/2023 Noted Resolved DIABETES MELLITUS ADULT ONSET [E11.9] 01/18/2007 04/28/2012 HYPERTENSION BENIGN [I10] 01/18/2007 08/11/2016 HYPERLIPIDEMIA [E78.5] 01/18/2007 08/11/2016 Bipolar I disorder, most recent episode depress*01/18/2007 Hypothyroidism [E03.9] 01/18/2007 03/02/2016 EDEMA EXTREMITIES [R60.9] 01/18/2007 08/11/2016 DYSMETABOLIC SYNDROME X [E88.810] 01/18/2007 Vitamin D deficiency [E55.9] 03/10/2007 IRRITABLE COLON [K58.9] 03/10/2007 HEADACHE [R51] 06/16/2007 CERVICALGIA [M54.2] 02/01/2008 Hypoparathyroidism (HCC) [E20.9] 03/09/2013 Sjogren's disease (HCC) [M35.00] 03/09/2013 LAP-BAND surgery status [Z98.84] 03/09/2013 Anemia [D64.9] 02/22/2019 Acid reflux [K21.9] Iron deficiency [E61.1] 06/14/2013 Diabetes mellitus type 2, controlled, without c*12/27/2014 01/20/2016 Gastroparesis [K31.84] 01/02/2015 01/02/2015 Gastroparesis [K31.84] 01/18/2015 03/02/2016 Acquired hypothyroidism [E03.9] 07/22/2015 Hyperlipidemia [E78.5] 07/22/2015 08/11/2016 Migraine without aura and without status migrai*01/20/2016 Arthritis [M19.90] 03/03/2016 Obstructive sleep apnea syndrome [G47.33] 05/26/2018 Encounter Status:Closed by [employer], PRODUSER on 08/06/23 [facility] 08-02-2023 Note HNO ID: [id number] Author: Micki Underwood APRN.FRONT DESK CLERK Service: ? Author Type: Nurse Practitioner Type: Progress Notes Filed: 08/02/2023 3:25 PM Note Text: This Team Access Model visit is a virtual encounter. It required patient-provider interaction for the medical decision making as documented below. Patient agrees to the visit: Yes Patient Location: [place] CC: Patient presents with: neuropathy HPI Santos Allan is a 57 year old female who is contacted today for a virtual visit. This is an established patient of Dr. Olga Bolaños MD. Patient with neuropathy to feet. Toes feel numb with shooting burning pain. This is present all the rime but can get more severe when she has a flare up Has had this for years since starting topamax for migraine prevdentative Stopped Topamax over 6 months ago with no improvement. Does have chronic low back pain due to arthritis and has upcoming appointment with pain management. Denies any saddle anesthesia, weakness, falling, edema, or skin discoloration. Needs refill for PRN migraine medicine as she no longer is on a preventative. Recent TSH and HGBA1c normal. REVIEW OF SYSTEMS General: no fevers, no chills, no night sweats, no recurrent infections, no change in appetite, no change in energy, and no significant changes in weight Respiratory: no cough, no wheezing, no shortness of breath, no hemoptysis Cardiovascular: no chest pain, no chest pressure, no palpitations, and no swelling Neurologic: No headache, weakness, dizziness, memory loss, syncope. PAST MEDICAL HISTORY Diagnosis Date Acid reflux Anemia Anxiety disorder in conditions classified elsewhere Arthritis 03/03/2016 Bipolar I disorder, most recent episode (or current) unspecified Hypothyroidism Myalgia and myositis, unspecified REMIGIO (obstructive sleep apnea) DME - [employer] for AutoPAP Other and unspecified hyperlipidemia Right ankle sprain 05/31/2017 Sjogren's disease (HCC) Type II or unspecified type diabetes mellitus without mention of complication, uncontrolled since 2002 Unspecified essential hypertension Unspecified vitamin D deficiency 03/10/2007 PAST SURGICAL HISTORY Procedure Laterality Date ANTERIOR INTERBODY FUSION, CERVICAL 09/13/2009 C5-C6 ARTHROSCOPY KNEE DIAGNOSTIC W/WO SYNOVIAL BX SPX Right knee COLONOSCOPY FLX DX W/COLLJ SPEC WHEN PFRMD 09/13/2002 Colonoscopy - diagnosed with IBS COLONOSCOPY FLX DX W/COLLJ SPEC WHEN PFRMD 04/05/2013 Colonoscopy repeat 3 years COLONOSCOPY FLX DX W/COLLJ SPEC WHEN PFRMD 03/18/2016 Colonoscopy (MAC) ESOPHAGOGASTRODUODENOSCOPY TRANSORAL DIAGNOSTIC 04/05/2013 EGD ESOPHAGOGASTRODUODENOSCOPY TRANSORAL DIAGNOSTIC 01/02/2015 EGD LAP ADJUSTABLE GASTRIC BAND 08/13/2008 PAST SURGICAL HISTORY OF left foot surgery PAST SURGICAL HISTORY OF 02/11/2013 left carpal tunnel PAST SURGICAL HISTORY OF 02/11/2013 radial styloidectomy PAST SURGICAL HISTORY OF 09/13/2013 c5,c6 refusion PT ED BARIATRIC AND METABOLIC N/A 08/2022 THYROIDECTOMY TOTAL/COMPLETE partial right - non malignant TONSILLECTOMY PRIMARY/SECONDARY Tonsillectomy ALLERGIES Imitrex [Sumatriptan] MEDICATIONS doxycycline 20 mg tablet Take 1 tablet by mouth twice daily. meloxicam (MOBIC) 15 mg tablet Take 1 tablet by mouth once daily. With food. potassium chloride (K-TAB) 10 mEq tablet Take 1 tablet by mouth twice daily. levothyroxine (SYNTHROID) 88 mcg tablet Take 1/2 tablet 3 days a week and whole tablet rest of the week. lisinopril (ZESTRIL) 20 mg tablet Take 1 tablet by mouth twice daily. atorvastatin (LIPITOR) 20 mg tablet Take 1 tablet by mouth once daily. CPAP/BIPAP/OTHER BiPAP 25/20 cmH2O. [employer]. Type .CPAPSettings into a note to see current settings/supplies/DME information. metoprolol tartrate, short acting, (LOPRESSOR) 12.5 mg tab Take 12.5 mg by mouth every 12 hours. CPAP Bilevel 25/20 cmH2O, Resmed F20 FFM (small), Ti max 2.0, Ti min 0.3, Trigger medium, Cycle medium, HUMIDITY, LIFETIME SUPPLIES. leflunomide (ARAVA) 10 mg tablet Take 2 tablets by mouth once daily. eletriptan (RELPAX) 20 mg tablet Take 1 at start of headache, may repeat in 2 hours if necessary (total of 3 tablets) cyclobenzaprine (FLEXERIL) 10 mg tablet Take 1 tablet by mouth three times daily. (Patient taking differently: Take 10 mg by mouth twice daily. ) Cholecalciferol, Vitamin D3, (VITAMIN D) 1,000 unit tab Take 1,000 Units by mouth once daily. sulfaSALAzine (AZULFIDINE) 500 mg tablet Take 1 tablet by mouth twice daily. (Patient taking differently: Take 1,000 mg by mouth twice daily. ) aripiprazole (ABILIFY) 2 mg tablet Take 1 tablet by mouth twice daily. cevimeline (EVOXAC) 30 mg ORAL capsule Take 60 mg by mouth twice daily. citalopram hydrobromide(CELEXA 20 MG TAB) Take 1.5 tablet daily. sodium fluoride/pot nitrate(PREVIDENT 5000 SENSITIVE 1.1 %-5 % DENTAL PASTE) FAMILY HISTORY Problem Relation Age of Onset Diab (more content not included)... [facility] 07-21-2023 Note Patient Outreach (IN [facility]MM[facility]) SANTOS ALLAN ([id number]) 1965 F Date Time Provider Department 07/21/23 OLGA BOLAÑOS During your visit today, we recorded the following information about you: Allergies As of Date: 07/21/2023 Noted Allergy Reaction IMITREX (SUMATRIPTAN) 07/25/2007 Comments: Face went numb Date Reviewed: 03/24/2023 Reviewed by: Luis Montanez APRN.FRONT DESK CLERK - Fully Assessed Visit Diagnosis:Encounter for screening mammogram for breast cancer [Z12.31] Order(s):[facility] [[id number]] Order #: [id number] FUTURE Prescriptions as of 07/26/2023 - doxycycline 20 mg tablet Take 1 tablet by mouth twice daily. - meloxicam (MOBIC) 15 mg tablet Take 1 tablet by mouth once daily. With food. - potassium chloride (K-TAB) 10 mEq tablet Take 1 tablet by mouth twice daily. - levothyroxine (SYNTHROID) 88 mcg tablet Take 1/2 tablet 3 days a week and whole tablet rest of the week. - lisinopril (ZESTRIL) 20 mg tablet Take 1 tablet by mouth twice daily. - atorvastatin (LIPITOR) 20 mg tablet Take 1 tablet by mouth once daily. - CPAP/BIPAP/OTHER BiPAP 25/20 cmH2O. [employer]. Type .CPAPSettings into a note to see current settings/supplies/DME information. - metoprolol tartrate, short acting, (LOPRESSOR) 12.5 mg tab Take 12.5 mg by mouth every 12 hours. - CPAP Bilevel 25/20 cmH2O, Resmed F20 FFM (small), Ti max 2.0, Ti min 0.3, Trigger medium, Cycle medium, HUMIDITY, LIFETIME SUPPLIES. - leflunomide (ARAVA) 10 mg tablet Take 2 tablets by mouth once daily. - eletriptan (RELPAX) 20 mg tablet Take 1 at start of headache, may repeat in 2 hours if necessary (total of 3 tablets) - cyclobenzaprine (FLEXERIL) 10 mg tablet Take 1 tablet by mouth three times daily. - Cholecalciferol, Vitamin D3, (VITAMIN D) 1,000 unit tab Take 1,000 Units by mouth once daily. - sulfaSALAzine (AZULFIDINE) 500 mg tablet Take 1 tablet by mouth twice daily. - aripiprazole (ABILIFY) 2 mg tablet Take 1 tablet by mouth twice daily. - cevimeline (EVOXAC) 30 mg ORAL capsule Take 60 mg by mouth twice daily. - citalopram hydrobromide(CELEXA 20 MG TAB) Take 1.5 tablet daily. - sodium fluoride/pot nitrate(PREVIDENT 5000 SENSITIVE 1.1 %-5 % DENTAL PASTE) Problem List As Of Date 07/21/2023 Noted Resolved DIABETES MELLITUS ADULT ONSET [E11.9] 01/18/2007 04/28/2012 HYPERTENSION BENIGN [I10] 01/18/2007 08/11/2016 HYPERLIPIDEMIA [E78.5] 01/18/2007 08/11/2016 Bipolar I disorder, most recent episode depress*01/18/2007 Hypothyroidism [E03.9] 01/18/2007 03/02/2016 EDEMA EXTREMITIES [R60.9] 01/18/2007 08/11/2016 DYSMETABOLIC SYNDROME X [E88.810] 01/18/2007 Vitamin D deficiency [E55.9] 03/10/2007 IRRITABLE COLON [K58.9] 03/10/2007 HEADACHE [R51] 06/16/2007 CERVICALGIA [M54.2] 02/01/2008 Hypoparathyroidism (HCC) [E20.9] 03/09/2013 Sjogren's disease (HCC) [M35.00] 03/09/2013 LAP-BAND surgery status [Z98.84] 03/09/2013 Anemia [D64.9] 02/22/2019 Acid reflux [K21.9] Iron deficiency [E61.1] 06/14/2013 Diabetes mellitus type 2, controlled, without c*12/27/2014 01/20/2016 Gastroparesis [K31.84] 01/02/2015 01/02/2015 Gastroparesis [K31.84] 01/18/2015 03/02/2016 Acquired hypothyroidism [E03.9] 07/22/2015 Hyperlipidemia [E78.5] 07/22/2015 08/11/2016 Migraine without aura and without status migrai*01/20/2016 Arthritis [M19.90] 03/03/2016 Obstructive sleep apnea syndrome [G47.33] 05/26/2018 Encounter Status:Closed by PARADISE HDEZ on 07/26/23 [facility] 05-28-2023 Telephone encounter Note DOS 09/02/22 LSG w/ HH JZ TFU BAND 2007 at [place] 11/18/21 Lap removal of gastric band JZ Last OV-04/05/23 with MZ, next 09/02/23 with JZ Per last OV note, pt PPI was d/c'd and pt was instructed to call the office with development of s/s. Will route to PA for review of pt request for rx d/t s/s [facility] 05-28-2023 Miscellaneous Notes DOS 09/02/22 LSG w/ HH JZ TFU BAND 2007 at [place] 11/18/21 Lap removal of gastric band JZ Last OV-04/05/23 with MZ, next 09/02/23 with JZ Per last OV note, pt PPI was d/c'd and pt was instructed to call the office with development of s/s. Will route to PA for review of pt request for rx d/t s/s documented in this encounter [facility] 04-05-2023 Note [facility]IATR[facility] CARE [facility] PROGRESS NOTE POST WEIGHT LOSS SURGERY FOLLOW UP Patient: Santos Lizama Jean Carlos Service Date: 04/05/2023 Patient is 6 month(s) s/p Sleeve Gastrectomy Today's Metrics: Post-Surgical Weight Loss Date: 04/05/23 Height: 5' 7 (170.2 cm) ([facility]) Weight: 212 lb 6.4 oz (96.3 kg) ([facility]) BMI: 33.26 Weight Change: -16 lbs Total Weight Change: -60.4 lbs % EBWL: 44% Comments: 6m Pre-op Weight Metrics: Post-op Weight Metrics: %EBWL: % EBWL: 44% Weight Change Since Last Visit: Weight Change: -16 lbs Weight Change from Highest Pre-op Weight: Total Weight Change: -60.4 lbs Patient has the following questions: None Reported Pain: Patient rates pain on scale 0-10 as: 3 Exercise Compliance: Exercising: yes If yes: Type: walking Times per week: 6 Min per session: 30 Falls Risk Assessment Patient does take medications which affect BP or mental status Patient does not have newly prescribed or changed dosage of medications within past 30 days which affect BP or mental status Patient has not fallen in the past 2 months Patient does not demonstrate unsteady gait Patient uses the following ambulatory assistive devices: none Patient states the presence of the following traits which increases risk of fall: none Patient is not on home O2 Labs Completed: yes - If NO, patient instructed to get labs drawn today or BRUNILDA If YES: Labs completed at [facility]? no If yes see Labs Tab Labs completed at Non-[facility] facility? yes If yes see Encounters Tab - Orders only - Historical Provider - Date: 03/25/2023 Completed by: Kristina Dillard MA [facility] 04-05-2023 History of Present illness Narrative [facility] [place] > 6 MONTH POST-OPERATIVE DIETITIAN VISIT Date: 04/05/23 Patient's weight decreased by: 60.4 lbs Patient does consume 5-6 small meals daily Patient s portions are adequate for current diet: -1 cup Protein requirements discussed- currently consuming 65 grams protein daily. Current protein sources: Protein shake 1-2 if not getting in 65 g of protein, chicken, fish, pork chops, protein granola bar, cottage cheese, cheese, nuts, tofu Recommendations: none Fluid requirements discussed. Current Fluid Intake: ~100 fl oz - water, decaf tea, diet juice Patient does drink sugar-free, caffeine-free and carbonation-free fluids only. Patient does wait 30 minutes before and after meals to drink Occasionally sips with meals Exercise activities discussed. Patient does currently exercise. She was reminded that regular exercise is critical part of a successful outcome following weight loss surgery. Walking Behavioral/Emotional changes reviewed. Patient does feel comfortable with changes in eating behaviors and associated emotional changes. She was reminded that psychological counseling is available through the [facility] post-operatively. Recent Nutrient Concerns and Vitamin Supplementation Changes: Patient had labs done on 03/25 - reviewed on phone. Vitamin D 75.5 IU. Patient taking 4,000 IU; patient to take 2,000 IU once daily. Orders pending to recheck Vitamin D in 3 months. Notes/Comments: Doing well overall. Patient instructed to call or [employer] message with any questions or concerns Visit completed by: Heidi Whitaker MS, RDN, LD Images from the original note were not included. HPI, PHYSICAL EXAMINATION & PLAN POST-OP HPI: Patient here today for 6 month post-weight loss surgery follow up The patient is feeling well. Denies nausea, vomiting, dysphagia, or any GERD Sx. Currently is on any PPI. Patient states diet and exercise is going well. Currently is eating 65-75 gm/day protein, and is compliant with prescribed multivitamins and supplements. Eating 5-6 times per day. Fluid intake 65 ounces daily. Denies GERD since being off PPI for about a month. BM normal and daily to every other day. Hx of IBS-D. Exercise: walking Times per week: 6 Min per session: 30 Review of Systems Constitutional: Negative for chills and fever. HENT: Negative for congestion, sore throat and trouble swallowing. Respiratory: Negative for cough and shortness of breath. Cardiovascular: Negative for chest pain and palpitations. Gastrointestinal: Negative for abdominal pain, constipation, diarrhea, nausea and vomiting. Genitourinary: Negative for dysuria and frequency. Musculoskeletal: Negative for arthralgias and back pain. Skin: Negative for color change. Neurological: Negative for dizziness and light-headedness. Psychiatric/Behavioral: The patient is not nervous/anxious. Vital signs are stable. Labs were Completed. All labs were: Concerns and Vitamin Supplementation Changes: Patient had labs done on 03/25 - reviewed on phone. Vitamin D 75.5 IU. Patient taking 4,000 IU; patient to take 2,000 IU once daily. Orders pending to recheck Vitamin D in 3 months. Physical Examination: BP 119/84 Pulse 94 Temp (!) 35.6 C (96.1 F) Resp 16 Ht 5' 7 (1.702 m) Wt 212 lb 6.4 oz (96.3 kg) BMI 33.27 kg/m General: This patient is awake, alert, and oriented, and is in no apparent distress. Respiratory: Non-labored breathing Abdomen: Obese, soft, non-tender, non-distended without masses/ No evidence of abdominal hernia / Incisions consistent with previous surgeries. Head and Neck: Obese, normocephalic and atraumatic Extremities: No cyanosis, clubbing or edema/ No calf tenderness/No restrictions of movement, is ambulatory without assistance. Skin: No rashes or lesions noted. 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 Discussed stopping PPI with patient. Patient is call if any mentioned symptoms return: persistent nausea all day, epigastric pain, pain radiating under either side of rib cage or pain in the middle of their back that is not improving. 2). Labs: Concerns and Vitamin Supplementation Changes: Patient had labs done on 03/25 - reviewed on phone. Vitamin D 75.5 IU. Patient taking 4,000 IU; patient to take 2,000 IU once daily. Orders pending to recheck Vitamin D in 3 months. 3). Diet and Exercise: RD discussed diet with patient during office visit. 4). Follow up at 12 month office visit with standard labs. 5). Psych concerns: no 6).Weight loss: Post-op Weight Metrics: %EBWL: % EBWL: 44% Weight Change Since Last Visit: Weight Change: -16 lbs Weight Change from Highest Pre-op Weight: Total Weight Change: -60.4 lbs HTN -stable on metoprolol, lisinopril, hydrochlorothiazide HLD -on statin, lipid panel ordered with 6M labs that are not yet received REMIGIO -compliant with CPAP Orders Placed This Encounter Procedures Zinc These orders are set for an approximate date - they can be drawn up to 3 months prior to the Expected Date on this Req. Please send results to: Olga Bolaños MD - [address] [facility] [address] - [phone] And if not done at a [facility] Facility, please send to: [facility] [place] - [address] [place] [address], [address] [facility], [address] Patient Name: Santos Abarcasangita - 1965 Order Created by : Kristina Dillard MA Standing Status: Future Standing Expiration Date: 04/05/2024 Folate These orders are set for an approximate date - they can be drawn up to 3 months prior to the Expected Date on this Req. Please send results to: Olga Bolaños MD - [address] [facility] [address] - [phone] And if not done at a [facility] Facility, please send to: [address], [address] Patient Name: Santos Allan - 1965 Order Created by : Kirstina Dillard MA Standing Status: Future Standing Expiration Date: 04/05/2024 Iron These orders are set for an approximate date - they can be drawn up to 3 months prior to the Expected Date on this Req. Please send results to: Olga Bolaños MD - [address] [facility] [address] - [phone] And if not done at a [facility] Facility, please send to: [place] [address] Patient Name: Santos Allan - 1965 Order Created by : Kristina Dillard MA Standing Status: Future Standing Expiration Date: 04/05/2024 Ferritin These orders are set for an approximate date - they can be drawn up to 3 months prior to the Expected Date on this Req. Please send results to: Olga Bolaños MD - [address] [facility] [address] - [phone] And if not done at a [facility] Facility, please send to: [address], [address] Patient Name: Santos Allan - 1965 Order Created by : Kristina Dillard MA Standing Status: Future Standing Expiration Date: 04/05/2024 Magnesium These orders are set for an approximate date - they can be drawn up to 3 months prior to the Expected Date on this Req. Please send results to: Olga Bolaños MD - [address] [facility] [address] - [phone] And if not done at a [facility] Facility, please send to: [address], [facility] Patient Name: Santos Allan - 1965 Order Created by : Kristina Dillard MA Standing Status: Future Standing Expiration Date: 04/05/2024 Vitamin D Deficiency Screening (Vit D 25) These orders are set for an approximate date - they can be drawn up to 3 months prior to the Expected Date on this Req. Please send results to: Olga Bolaños MD - [address] [place] [address] - [phone] And if not done at a [facility] Facility, please send to: [place] [address] Patient Name: Santos Gravesandt - 1965 Order Created by : Kristina Dillard MA Standing Status: Future Standing Expiration Date: 04/05/2024 Vitamin B12 These orders are set for an approximate date - they can be drawn up to 3 months prior to the Expected Date on this Req. Please send results to: Olga Bolaños MD - [facility] [address] - [phone] And if not done at a [facility] Facility, please send to: [address], [facility] Patient Name: Santos Abarcat - 1965 Order Created by : Kristina Dillard MA Standing Status: Future Standing Expiration Date: 04/05/2024 Vitamin B1, whole blood These orders are set for an approximate date - they can be drawn up to 3 months prior to the Expected Date on this Req. Please send results [facility]: [facility] [address] - [phone] And if not done at a [facility] Facility, please send to: [address], [facility] Patient Name: Santos Allan - 1965 Order Created by : Kristina Dillard MA Standing Status: Future Standing Expiration Date: 04/05/2024 Lipid panel These orders are set for an approximate date - they can be drawn up to 3 months prior to the Expected Date on this Req. Please send results to: Olga Bolaños MD - [facility] [address] - [phone] And if not done at a [facility] Facility, please send to: [address], [facility] Patient Name: Santos Allan - 1965 Order Created by : Kristina Dillard MA Standing Status: Future Standing Expiration Date: 04/05/2024 Comprehensive metabolic panel These orders are set for an approximate date - they can be drawn up to 3 months prior to the Expected Date on this Req. Please send results to: Olga Bolaños MD - [address] [facility] [id number] - [phone] And if not done at a [facility] Facility, please send to: [address], [facility] Patient Name: Santos Allan - 1965 Order Created by : Kristina Dillard MA Standing Status: Future Standing Expiration Date: 04/05/2024 CBC These orders are set for an approximate date - they can be drawn up to 3 months prior to the Expected Date on this Req. Please send results to: Olga Bolaños MD - [address] [facility] [id number] - [phone] And if not done at a [facility] Facility, please send to: [address], [address] Patient Name: Santos Allan - 1965 Order Created by : Kristina Dillard MA Standing Status: Future Standing Expiration Date: 04/05/2024 Vitamin D Deficiency Screening (Vit D 25) These orders are set for an approximate date - they can be drawn up to 3 months prior to the Expected Date on this Req. Please send results to: Olga Bolaños MD - [address] [facility] [address] - [phone] And if not done at a [facility] Facility, please send to: [facility] - [address] [place] [address], [facility] [address] [facility], [address] Patient Name: Santos Allan - 1965 Order Created by : Heidi Whitaker RD Standing Status: Future Standing Expiration Date: 04/05/2024 Medications ordered during this encounter: Outpatient Encounter Medications as of 04/05/2023 Medication Sig Dispense Refill ARIPiprazole (Abilify) 2 MG tablet Every 24 hours. atorvastatin (Lipitor) 20 MG tablet Take 20 mg by mouth daily. cevimeline (Evoxac) 30 MG capsule every 12 hours. citalopram (CeleXA) 10 MG tablet Take 10 mg by mouth daily. citalopram (CeleXA) 20 MG tablet daily. cyanocobalamin (Vitamin B-12) 500 MCG tablet Every 24 hours. cyclobenzaprine (Flexeril) 10 MG tablet Take 10 mg by mouth at noon and 10 mg in the evening. hydroCHLOROthiazide (HYDRODiuril) 12.5 MG tablet Take 12.5 mg by mouth in the morning. hydroxychloroquine (Plaquenil) 200 MG tablet Take 200 mg by mouth at noon and 200 mg in the evening. leflunomide (Arava) 20 MG tablet daily. levothyroxine (Synthroid, Levoxyl) 88 MCG tablet Take 88 mcg by mouth daily. lisinopril 20 MG tablet twice a day. metoprolol succinate XL (Toprol-XL) 25 MG 24 hr tablet omeprazole (PriLOSEC) [address] capsule Take 1 capsule (20 mg) by mouth daily. Do not crush or chew. 90 capsule 0 potassium chloride CR (Klor-Con) 10 MEQ ER tablet Take 10 mEq by mouth 2 times daily. Respiratory Therapy Supplies (CareTouch CPAP & BIPAP Hose) misc 12-20 cm Nightly. sulfaSALAzine (Azulfidine) 500 MG EC tablet Take 1,000 mg by mouth in the morning and 1,000 mg before bedtime. Ubiquinol 200 MG capsule Take 200 mg by mouth daily. [DISCONTINUED] atorvastatin (Lipitor) 40 MG tablet Take 40 mg by mouth Nightly. [DISCONTINUED] cholecalciferol (Vitamin D-3) 25 MCG (1000 UT) tablet Take 2,000 Units by mouth in the morning. VITAMIN D PO Take 2,000 Int'l Units by mouth daily. [DISCONTINUED] ursodiol (Actigall) 300 MG capsule Take 300 mg by mouth 2 times daily. No facility-administered encounter medications on file as of 04/05/2023. Visit Diagnoses: 1. Primary hypertension 2. REMIGIO on CPAP 3. Deficiency of multiple nutrient elements 4. Hyperlipidemia, unspecified hyperlipidemia type 5. Class 1 obesity due to excess calories with serious comorbidity and body mass index (BMI) of 33.0 to 33.9 in adult 6. High vitamin D level Current Medications: Patient's Medications New Prescriptions No medications on file Previous Medications ARIPIPRAZOLE (ABILIFY) 2 MG TABLET Every 24 hours. ATORVASTATIN (LIPITOR) 20 MG TABLET Take 20 mg by mouth daily. CEVIMELINE (EVOXAC) 30 MG CAPSULE every 12 hours. CITALOPRAM (CELEXA) 10 MG TABLET Take 10 mg by mouth daily. CITALOPRAM (CELEXA) 20 MG TABLET daily. CYANOCOBALAMIN (VITAMIN B-12) 500 MCG TABLET Every 24 hours. CYCLOBENZAPRINE (FLEXERIL) 10 MG TABLET Take 10 mg by mouth at noon and 10 mg in the evening. HYDROCHLOROTHIAZIDE (HYDRODIURIL) 12.5 MG TABLET Take 12.5 mg by mouth in the morning. HYDROXYCHLOROQUINE (PLAQUENIL) 200 MG TABLET Take 200 mg by mouth at noon and 200 mg in the evening. LEFLUNOMIDE (ARAVA) 20 MG TABLET daily. LEVOTHYROXINE (SYNTHROID, LEVOXYL) 88 MCG TABLET Take 88 mcg by mouth daily. LISINOPRIL 20 MG TABLET twice a day. METOPROLOL SUCCINATE XL (TOPROL-XL) 25 MG 24 HR TABLET OMEPRAZOLE (PRILOSEC) [address] CAPSULE Take 1 capsule (20 mg) by mouth daily. Do not crush or chew. POTASSIUM CHLORIDE CR (KLOR-CON) 10 MEQ ER TABLET Take 10 mEq by mouth 2 times daily. RESPIRATORY THERAPY SUPPLIES (CARETOUCH CPAP & BIPAP HOSE) MISC 12-20 cm Nightly. SULFASALAZINE (AZULFIDINE) 500 MG EC TABLET Take 1,000 mg by mouth in the morning and 1,000 mg before bedtime. UBIQUINOL 200 MG CAPSULE Take 200 mg by mouth daily. VITAMIN D PO Take 2,000 Int'l Units by mouth daily. Modified Medications No medications on file Discontinued Medications ATORVASTATIN (LIPITOR) 40 MG TABLET Take 40 mg by mouth Nightly. CHOLECALCIFEROL (VITAMIN D-3) 25 MCG (1000 UT) TABLET Take 2,000 Units by mouth in the morning. URSODIOL (ACTIGALL) 300 MG CAPSULE Take 300 mg by mouth 2 times daily. [facility] PROGRESS NOTE POST WEIGHT LOSS SURGERY FOLLOW UP Patient: Santos Allan Service Date: 04/05/2023 Patient is 6 month(s) s/p Sleeve Gastrectomy Today's Metrics: Post-Surgical Weight Loss Date: 04/05/23 Height: 5' 7 (170.2 cm) ([facility]) Weight: 212 lb 6.4 oz (96.3 kg) ([facility]) BMI: 33.26 Weight Change: -16 lbs Total Weight Change: -60.4 lbs % EBWL: 44% Comments: 6m Pre-op Weight Metrics: Post-op Weight Metrics: %EBWL: % EBWL: 44% Weight Change Since Last Visit: Weight Change: -16 lbs Weight Change from Highest Pre-op Weight: Total Weight Change: -60.4 lbs Patient has the following questions: None Reported Pain: Patient rates pain on scale 0-10 as: 3 Exercise Compliance: Exercising: yes If yes: Type: walking Times per week: 6 Min per session: 30 Falls Risk Assessment Patient does take medications which affect BP or mental status Patient does not have newly prescribed or changed dosage of medications within past 30 days which affect BP or mental status Patient has not fallen in the past 2 months Patient does not demonstrate unsteady gait Patient uses the following ambulatory assistive devices: none Patient states the presence of the following traits which increases risk of fall: none Patient is not on home O2 Labs Completed: yes - If NO, patient instructed to get labs drawn today or BRUNILDA If YES: Labs completed at [facility]? no If yes see Labs Tab Labs completed at Non-[facility] facility? yes If yes see Encounters Tab - Orders only - Historical Provider - Date: 03/25/2023 Completed by: Kristina Dillard MA documented in this encounter [facility] [address] 03-24-2023 Note HNO ID: [id number] Author: Luis Montanez APRN.FRONT DESK CLERK Service: ? Author Type: Nurse Practitioner Type: Progress Notes Filed: 03/25/2023 7:53 PM Note Text: [facility] Virtual Visit Follow up/ Established patient visit Date of last visit : 12/21/2022 I have communicated my name and active licensure. The patient's identity and physical location were verified at the time of this visit. Either the patient or their legal office machines sales representative has been informed of the risks and benefits of -- and alternatives to -- treatment through a remote evaluation and consents to proceed with the evaluation remotely. IMPRESSION/PLAN: Obstructive sleep apnea syndrome (primary encounter diagnosis) Insomnia, unspecified type Difficulty using biphasic positive airway pressure (bipap) machine 57 year old female with PMH of REMIGIO, Migraine, Hypothyroidism, s/p Gastric Bypass and Bipolar Disorder presents for a virtual sleep apnea follow up. - She had Gastric sleeve in August and lost 50 lbs. - She is wearing her machine nightly and reports benefits from treatment. - Nevertheless, she admits pressure intolerance and sleep disturbance since switching from bilevel PAP 25/20 cmH2O to auto-bilevel PAP IPAP max 25, EPAP min 10, and PS 5 cm H2O and wants to return to BiPAP S mode. - Discussed the pathophysiology of sleep apnea and risks of not treating including cardiac, stroke and drowsy driving risks. - Attempted to get download of her machine to evaluate setting but data received from DME was from 2021. - Will place order to return to BiPAP setting per pt's request. - Encourage compliance with minimum goal for PAP usage>70% of nights >4 hours/night. - Encourage regular change and maintenance of supplies. - Encourage 30 day MC update. - Encourage healthy lifestyle with adequate sleep (7-9 hours per night), diet, and exercise (goal of 150 minutes moderate-brisk exercise per week). - Follow up [address] Quinteros. Luis Montanez APRN.FRONT DESK CLERK Interval history : Here for follow up for sleep apnea management SLEEP APNEA Sleep apnea type : REMIGIO Most Recent Apnea-Hypopnea Index (AHI): 40.5 Treatment : PAP therapy DME: : [facility]. [phone] PAP History: Current PAP setting: Auto-bilevel PAP IPAP max 25, EPAP min 10, and PS 5 cm H2O Uses Bilevel PAP nightly. Difficulties with Bilevel PAP: none Reviewed objective PAP compliance data: not available at time of visit. Mask type: full face mask Mask issues: none Uses humidity: Yes, distilled water There is a perceived benefit by the patient: sleeps better Observers report abolition of snoring with AutoPAP use. SLEEP HYGIENE QUESTIONS: Bedtime : 11 pm-12 am Wake up Time : 4-5 am Time it takes to fall sleep : not long WASO: once to BR Estimated total sleep time ( in a 24 hour period of time) : 6 hrs Naps : occasionally PATIENT-ENTERED QUESTIONNAIRE SLEEP SCORES Sleep Questions 03/17/2023 Reason for visit: Sleep apnea Average hours slept in 24 hours: - Average hours of CPAP per night: 4.25 Percent of nights CPAP used at least 4 hours: 74 Accidents or near accidents due to drowsy drivin [place] Sleepiness Scale 09/14/2022 12/16/2022 03/17/2023 Score 4 (No daytime sleepiness) 4 (No daytime sleepiness) 7 (No daytime sleepiness) PROMIS CAT Sleep Disturbance 09/14/2022 12/16/2022 03/17/2023 PROMIS Sleep Disturbance T-Score 47 (within normal limits) 54 (within normal limits) 54 (within normal limits) PROMIS Sleep Disturbance Percentile 62 % 34 % 34 % Insomnia Severity Index 11/15/2021 Score 14 PHQ-9 09/14/2022 12/16/2022 03/17/2023 Score 1 1 2 PROMIS Global Health - (T-Scores - the mean of general population = 50. Five points is a clinically meaningful difference.) 08/21/2022 11/27/2022 03/04/2023 Physical T-Score 42.3 44.9 42.3 Mental T-Score 59 59 59 ALLERGIES Allergen Reactions Imitrex [Sumatripta* Face went numb CURRENT MEDICATIONS: doxycycline 20 mg tablet Take 1 tablet by mouth twice daily. meloxicam (MOBIC) 15 mg tablet Take 1 tablet by mouth once daily. With food. potassium chloride (K-TAB) 10 mEq tablet Take 1 tablet by mouth twice daily. levothyroxine (SYNTHROID) 88 mcg tablet Take 1/2 tablet 3 days a week and whole tablet rest of the week. lisinopril (ZESTRIL) 20 mg tablet Take 1 tablet by mouth twice daily. atorvastatin (LIPITOR) 20 mg tablet Take 1 tablet by mouth once daily. CPAP/BIPAP/OTHER BiPAP 25/20 cmH2O. [employer]. Type .CPAPSettings into a note to see current settings/supplies/DME information. metoprolol tartrate, short acting, (LOPRESSOR) 12.5 mg tab Take 12.5 mg by mouth every 12 hours. CPAP Bilevel 25/20 cmH2O, Resmed F20 FFM (small), Ti max 2.0, Ti min 0.3, Trigger medium, Cycle medium, HUMIDITY, LIFETIME SUPPLIES. leflunomide (ARAVA) 10 mg tablet Take 2 tablets by mouth once daily. eletriptan (RELPAX) 20 mg tablet Take 1 at start of he (more content not included)... [facility] 03-08-2023 Note HNO ID: [id number] Author: Micki Underwood APRN.FRONT DESK CLERK Service: ? Author Type: Nurse Practitioner Type: Progress Notes Filed: 03/09/2023 10:18 AM Note Text: CC: Patient presents with: F/U HTN 3 Month HPI Santos Allan is a 57 year old female who presents today for routine follow up. On meloxicam and now doxycycline for jaw arthritis. Been on meloxicam for 2 weeks. Patient thinks she will be on this for 2 months as ordered by dentist. HTN and HLD: Ms. Allan indicates that she is feeling well and denies any symptoms referable to elevated blood pressure. Specifically denies headache, chest pain, palpitations, dyspnea, and peripheral edema. Patient denies any side effects of her medication(s) and is compliant with their regimen. Recently had lisinopril stopped by endocrinology but at home has been 115s-130/60-70s. Santos works out regularly 6 times per week with walking and is starting a dance exercise as well. She watches her diet for sodium, low fat and low cholesterol most of the time. Last 3 Encounter BP Readings: Date: BP: 03/08/2023 140/90 12/04/2022 114/78 08/28/2022 128/76 Hypothyroidism: Controlled by endocrinology. Denies any fatigue, abnormal weight changes, intolerance to heat or cold. Last TSH 1.56. Bipolar: Establishing with new psychiatrist as hers is retiring. Feels well controlled on current medications. Sleep: is described as normal for her Alcohol use: does not drink any alcohol Drug use: No Appetite: good Stresses: Denies any major stressor. Suicidal Thoughts: No suicidal ideation, intent or plan Support: Comes from multiple sources including family Counseling: Yes, with psychiatrist REVIEW OF SYSTEMS General: no fevers, no chills, no night sweats, no recurrent infections, no change in appetite, no change in energy, and no significant changes in weight Respiratory: no cough, no wheezing, no shortness of breath, no hemoptysis Cardiovascular: no chest pain, no chest pressure, no palpitations, and no swelling GI: No nausea, vomiting, or diarrhea Endocrine: no fatigue, no cold intolerance, no heat intolerance, no polyuria, no polyphagia, and no polydipsia Neurologic: No headache, weakness, numbness, tingling, dizziness, memory loss, syncope. PAST MEDICAL HISTORY Diagnosis Date Acid reflux Anemia Anxiety disorder in conditions classified elsewhere Arthritis 03/03/2016 Bipolar I disorder, most recent episode (or current) unspecified Hypothyroidism Myalgia and myositis, unspecified REMIGIO (obstructive sleep apnea) DME - [employer] for AutoPAP Other and unspecified hyperlipidemia Right ankle sprain 05/31/2017 Sjogren's disease (HCC) Type II or unspecified type diabetes mellitus without mention of complication, uncontrolled since 2002 Unspecified essential hypertension Unspecified vitamin D deficiency 03/10/2007 PAST SURGICAL HISTORY Procedure Laterality Date ANTERIOR INTERBODY FUSION, CERVICAL 09/13/2009 C5-C6 ARTHROSCOPY KNEE DIAGNOSTIC W/WO SYNOVIAL BX SPX Right knee COLONOSCOPY FLX DX W/COLLJ SPEC WHEN PFRMD 09/13/2002 Colonoscopy - diagnosed with IBS COLONOSCOPY FLX DX W/COLLJ SPEC WHEN PFRMD 04/05/2013 Colonoscopy repeat 3 years COLONOSCOPY FLX DX W/COLLJ SPEC WHEN PFRMD 03/18/2016 Colonoscopy (MAC) ESOPHAGOGASTRODUODENOSCOPY TRANSORAL DIAGNOSTIC 04/05/2013 EGD ESOPHAGOGASTRODUODENOSCOPY TRANSORAL DIAGNOSTIC 01/02/2015 EGD LAP ADJUSTABLE GASTRIC BAND 08/13/2008 PAST SURGICAL HISTORY OF left foot surgery PAST SURGICAL HISTORY OF 02/11/2013 left carpal tunnel PAST SURGICAL HISTORY OF 02/11/2013 radial styloidectomy PAST SURGICAL HISTORY OF 09/13/2013 c5,c6 refusion PT ED BARIATRIC AND METABOLIC N/A 08/2022 THYROIDECTOMY TOTAL/COMPLETE partial right - non malignant TONSILLECTOMY PRIMARY/SECONDARY Tonsillectomy ALLERGIES Imitrex [Sumatriptan] MEDICATIONS doxycycline 20 mg tablet Take 1 tablet by mouth twice daily. meloxicam (MOBIC) 15 mg tablet Take 1 tablet by mouth once daily. With food. potassium chloride (K-TAB) 10 mEq tablet Take 1 tablet by mouth twice daily. CPAP/BIPAP/OTHER BiPAP 25/20 cmH2O. [employer]. Type .CPAPSettings into a note to see current settings/supplies/DME information. atorvastatin (LIPITOR) 10 mg tablet Take 4 tablets by mouth once daily. hydroCHLOROthiazide (HYDRODIURIL, ESIDRIX) 12.5 mg tablet Take 12.5 mg by mouth once daily. metoprolol tartrate, short acting, (LOPRESSOR) 12.5 mg tab Take 12.5 mg by mouth every 12 hours. lisinopril (ZESTRIL, PRINIVIL) 20 mg tablet Take 1 tablet by mouth twice daily. CPAP Bilevel 25/20 cmH2O, Resmed F20 FFM (small), Ti max 2.0, Ti min 0.3, Trigger medium, Cycle medium, HUMIDITY, LIFETIME SUPPLIES. leflunomide (ARAVA) 10 mg tablet Take 2 tablets by mouth once daily. eletriptan (RELPAX) 20 mg tablet Take 1 at start of headache, may repeat in 2 hours if necessary (total of 3 tablets) cyclobenzaprine (FLEXERIL) 10 mg (more content not included)... [facility] 12-22-2022 Miscellaneous Notes Faxed order, office notes, demographics, and sleep study to: DME name: [facility] fax: [phone] DME ph: documented in this encounter [facility] 12-21-2022 Note HNO ID: [id number] Author: Luis Montanez APRN.FRONT DESK CLERK Service: ? Author Type: Nurse Practitioner Type: Progress Notes Filed: 03/22/2023 3:30 PM Note Text: [facility] Virtual Visit Follow up/ Established patient visit Date of last visit : 09/21/2022 I have communicated my name and active licensure. The patient's identity and physical location were verified at the time of this visit. Either the patient or their legal office machines sales representative has been informed of the risks and benefits of -- and alternatives to -- treatment through a remote evaluation and consents to proceed with the evaluation remotely. Assessment and Plan: ASSESSMENT/PLAN: 1. Obstructive sleep apnea (adult) (pediatric) - ICD9: 327.23, ICD10: G47.33 (primary diagnosis) 2. Insomnia, unspecified type - ICD9: 780.52, ICD10: G47.00 3. Class 3 severe obesity with body mass index (BMI) of 40.0 to 44.9 in adult, unspecified obesity type, unspecified whether serious comorbidity present (HCC) - ICD9: 278.01, V85.41, ICD10: E66.01, Z68.41 Patient subjectively doing well on PAP (data download pending). Now s/p gastric sleeve and given weight loss, will switch pt from set bilevel PAP of 25/20 cmH2O to auto-bilevel PAP set at IPAP max 25, EPAP min 10, and PS 5 cm H2O. Will have pt follow up in 3 months given ongoing weight loss and possible need to further adjust pressure settings, or sooner prn. Reminded to clean and replace equipment regularly. Headaches resolved. Encouraged continued weight loss. Maintenance insomnia of uncertain etiology, with no racing thoughts, worries, pain. Possibly just due to need to urinate. Note previously resolved on melatonin. She will restart the latter first but if still persists consider referral to behavioral sleep med next visit. Pt agrees with plan. Alexander Quinteros MD Interval history : Here for follow up for sleep apnea management. SLEEP APNEA Sleep apnea type : REMIGIO Most Recent Apnea-Hypopnea Index (AHI): 40.5 Treatment : PAP therapy DME: : [facility]. [phone] PAP History: Current PAP setting: Auto-bilevel PAP IPAP max 25, EPAP min 10, and PS 5 cm H2O Uses Bilevel PAP nightly. Difficulties with Bilevel PAP: Yes: pressure intolerance Reviewed objective PAP compliance data: not available at time of visit. Mask type: full face mask Mask issues: none Uses humidity: Yes, distilled water There is a perceived benefit by the patient: sleeps better Observers report abolition of snoring with AutoPAP use. SLEEP HYGIENE QUESTIONS: Bedtime : 11 pm-12 am Wake up Time : 4-5 am Time it takes to fall sleep : not long WASO: once to BR Estimated total sleep time ( in a 24 hour period of time) : 6 hrs Naps : occasionally PATIENT-ENTERED QUESTIONNAIRE SLEEP SCORES Sleep Questions 12/16/2022 Reason for visit: Sleep apnea Average hours slept in 24 hours: 6 Average hours of CPAP per night: 4.5 Percent of nights CPAP used at least 4 hours: 85 Accidents or near accidents due to drowsy drivin [place] Sleepiness Scale 11/15/2021 09/14/2022 12/16/2022 Score 10 (No daytime sleepiness) 4 (No daytime sleepiness) 4 (No daytime sleepiness) PROMIS CAT Sleep Disturbance 11/15/2021 09/14/2022 12/16/2022 PROMIS Sleep Disturbance T-Score 67 (moderate) 47 (within normal limits) 54 (within normal limits) PROMIS Sleep Disturbance Percentile 4 % 62 % 34 % Insomnia Severity Index 11/15/2021 Score 14 PHQ-9 11/15/2021 09/14/2022 12/16/2022 Score 5 1 1 PROMIS Global Health - (T-Scores - the mean of general population = 50. Five points is a clinically meaningful difference.) 03/04/2022 08/21/2022 11/27/2022 Physical T-Score 44.9 42.3 44.9 Mental T-Score 59 59 59 ALLERGIES Allergen Reactions Imitrex [Sumatripta* Face went numb CURRENT MEDICATIONS: atorvastatin (LIPITOR) 10 mg tablet Take 4 tablets by mouth once daily. hydroCHLOROthiazide (HYDRODIURIL, ESIDRIX) 12.5 mg tablet Take 12.5 mg by mouth once daily. metoprolol tartrate, short acting, (LOPRESSOR) 12.5 mg tab Take 12.5 mg by mouth every 12 hours. lisinopril (ZESTRIL, PRINIVIL) 20 mg tablet Take 1 tablet by mouth twice daily. CPAP Bilevel 25/20 cmH2O, Resmed F20 FFM (small), Ti max 2.0, Ti min 0.3, Trigger medium, Cycle medium, HUMIDITY, LIFETIME SUPPLIES. leflunomide (ARAVA) 10 mg tablet Take 2 tablets by mouth once daily. eletriptan (RELPAX) 20 mg tablet Take 1 at start of headache, may repeat in 2 hours if necessary (total of 3 tablets) cyclobenzaprine (FLEXERIL) 10 mg tablet Take 1 tablet by mouth three times daily. (Patient taking differently: Take 10 mg by mouth twice daily. ) bmzwo-gr-5-etw-lxv-lfepxxy-ast (KRILL OIL) 1,496-720-45-50 mg cap Take 1,000 mg by mouth once daily. levothyroxine (SYNTHROID) 88 mcg tablet Take 1 tablet by mouth daily before breakfast. Cholecalciferol, Vitamin D3, (VITAMIN D) 1,000 unit tab Take 1,000 Units by mouth once daily. s (more content not included)... [facility] 12-21-2022 History of Present illness Narrative Images from the original note were not included. [facility] Virtual Visit Follow up/ Established patient visit Date of last visit : 09/21/2022 I have communicated my name and active licensure. The patient's identity and physical location were verified at the time of this visit. Either the patient or their legal office machines sales representative has been informed of the risks and benefits of -- and alternatives to -- treatment through a remote evaluation and consents to proceed with the evaluation remotely. Assessment and Plan: ASSESSMENT/PLAN: 1. Obstructive sleep apnea (adult) (pediatric) - ICD9: 327.23, ICD10: G47.33 (primary diagnosis) 2. Insomnia, unspecified type - ICD9: 780.52, ICD10: G47.00 3. Class 3 severe obesity with body mass index (BMI) of 40.0 to 44.9 in adult, unspecified obesity type, unspecified whether serious comorbidity present (HCC) - ICD9: 278.01, V85.41, ICD10: E66.01, Z68.41 Patient subjectively doing well on PAP (data download pending). Now s/p gastric sleeve and given weight loss, will switch pt from set bilevel PAP of 25/20 cmH2O to auto-bilevel PAP set at IPAP max 25, EPAP min 10, and PS 5 cm H2O. Will have pt follow up in 3 months given ongoing weight loss and possible need to further adjust pressure settings, or sooner prn. Reminded to clean and replace equipment regularly. Headaches resolved. Encouraged continued weight loss. Maintenance insomnia of uncertain etiology, with no racing thoughts, worries, pain. Possibly just due to need to urinate. Note previously resolved on melatonin. She will restart the latter first but if still persists consider referral to behavioral sleep med next visit. Pt agrees with plan. Alexander Quinteros MD Interval history : Here for follow up for sleep apnea management. SLEEP APNEA Sleep apnea type : REMIGIO Most Recent Apnea-Hypopnea Index (AHI): 40.5 Treatment : PAP therapy DME: : [facility]. [phone] PAP History: Current PAP setting: Auto-bilevel PAP IPAP max 25, EPAP min 10, and PS 5 cm H2O Uses Bilevel PAP nightly. Difficulties with Bilevel PAP: Yes: pressure intolerance Reviewed objective PAP compliance data: not available at time of visit. Mask type: full face mask Mask issues: none Uses humidity: Yes, distilled water There is a perceived benefit by the patient: sleeps better Observers report abolition of snoring with AutoPAP use. SLEEP HYGIENE QUESTIONS: Bedtime : 11 pm-12 am Wake up Time : 4-5 am Time it takes to fall sleep : not long WASO: once to BR Estimated total sleep time ( in a 24 hour period of time) : 6 hrs Naps : occasionally PATIENT-ENTERED QUESTIONNAIRE SLEEP SCORES Sleep Questions 12/16/2022 Reason for visit: Sleep apnea Average hours slept in 24 hours: 6 Average hours of CPAP per night: 4.5 Percent of nights CPAP used at least 4 hours: 85 Accidents or near accidents due to drowsy drivin [place] Sleepiness Scale 11/15/2021 09/14/2022 12/16/2022 Score 10 (No daytime sleepiness) 4 (No daytime sleepiness) 4 (No daytime sleepiness) PROMIS CAT Sleep Disturbance 11/15/2021 09/14/2022 12/16/2022 PROMIS Sleep Disturbance T-Score 67 (moderate) 47 (within normal limits) 54 (within normal limits) PROMIS Sleep Disturbance Percentile 4 % 62 % 34 % Insomnia Severity Index 11/15/2021 Score 14 PHQ-9 11/15/2021 09/14/2022 12/16/2022 Score 5 1 1 PROMIS Global Health - (T-Scores - the mean of general population = 50. Five points is a clinically meaningful difference.) 03/04/2022 08/21/2022 11/27/2022 Physical T-Score 44.9 42.3 44.9 Mental T-Score 59 59 59 ALLERGIES Allergen Reactions Imitrex [Sumatripta* Face went numb CURRENT MEDICATIONS: atorvastatin (LIPITOR) 10 mg tablet Take 4 tablets by mouth once daily. hydroCHLOROthiazide (HYDRODIURIL, ESIDRIX) 12.5 mg tablet Take 12.5 mg by mouth once daily. metoprolol tartrate, short acting, (LOPRESSOR) 12.5 mg tab Take 12.5 mg by mouth every 12 hours. lisinopril (ZESTRIL, PRINIVIL) 20 mg tablet Take 1 tablet by mouth twice daily. CPAP Bilevel 25/20 cmH2O, Resmed F20 FFM (small), Ti max 2.0, Ti min 0.3, Trigger medium, Cycle medium, HUMIDITY, LIFETIME SUPPLIES. leflunomide (ARAVA) 10 mg tablet Take 2 tablets by mouth once daily. eletriptan (RELPAX) 20 mg tablet Take 1 at start of headache, may repeat in 2 hours if necessary (total of 3 tablets) cyclobenzaprine (FLEXERIL) 10 mg tablet Take 1 tablet by mouth three times daily. (Patient taking differently: Take 10 mg by mouth twice daily. ) yjgfb-ig-8-nic-ghz-tgfpfps-ast (KRILL OIL) 1,192-344-55-50 mg cap Take 1,000 mg by mouth once daily. levothyroxine (SYNTHROID) 88 mcg tablet Take 1 tablet by mouth daily before breakfast. Cholecalciferol, Vitamin D3, (VITAMIN D) 1,000 unit tab Take 1,000 Units by mouth once daily. sulfaSALAzine (AZULFIDINE) 500 mg tablet Take 1 tablet by mouth twice daily. (Patient taking differently: Take 1,000 mg by mouth twice daily. ) aripiprazole (ABILIFY) 2 mg tablet Take 1 tablet by mouth twice daily. cevimeline (EVOXAC) 30 mg ORAL capsule Take 60 mg by mouth twice daily. citalopram hydrobromide(CELEXA 20 MG TAB) Take 1.5 tablet daily. sodium fluoride/pot nitrate(PREVIDENT 5000 SENSITIVE 1.1 %-5 % DENTAL PASTE) REVIEW OF SYSTEMS: GENERAL: feeling well without fatigue, no recent change in weight, no fever, activity level is normal PHYSICAL EXAMINATION: VIDEO EXAM: (if completed, performed via video enabled technology) GENERAL: alert and appropriate, in no distress and well-hydrated, well nourished, interactive IMPRESSION/PLAN: Obstructive sleep apnea syndrome (primary encounter diagnosis) Insomnia, unspecified type Difficulty using biphasic positive airway pressure (bipap) machine 57 year old female with PMH of REMIGIO, Migraine, Hypothyroidism, s/p Gastric Bypass and Bipolar Disorder presents for a virtual sleep apnea follow up. - She had Gastric sleep in August and lost 50 lbs. - She is wearing her machine nightly and reports benefits from treatment. - Nevertheless, she admits pressure intolerance and sleep disturbance since switching from bilevel PAP 25/20 cmH2O to auto-bilevel PAP IPAP max 25, EPAP min 10, and PS 5 cm H2O and wants to return to BiPAP S mode. - Discussed the pathophysiology of sleep apnea and risks of not treating including cardiac, stroke and drowsy driving risks. - Attempted to get download of her machine to evaluate setting but data received from DME was from 2021. - Will place order to return to BiPAP setting per pt's request. - Encourage compliance with minimum goal for PAP usage>70% of nights >4 hours/night. - Encourage regular change and maintenance of supplies. - Encourage 30 day update. - Encourage healthy lifestyle with adequate sleep (7-9 hours per night), diet, and exercise (goal of 150 minutes moderate-brisk exercise per week). - Follow up [address] Quinteros. Luis Montanez APRN.CNP I spent a total of 30 minutes on the date of the service which included preparing to see the patient, completing clinical documentation, counseling and educating the patient/family/caregiver and ordering medications, tests, or procedures. documented in this encounter [facility] 12-04-2022 Note HNO ID: [id number] Author: Micki Underwood APRN.CNP Service: ? Author Type: Nurse Practitioner Type: Progress Notes Filed: 12/04/2022 7:57 AM Note Text: CC: Patient presents with: Recheck: 3 month follow up HPI Santos Allan is a 56 year old female who presents today for follow up. Had gastric sleeve surgery this past August and has lost a total of 41lbs and tolerating well. HTN: Ms. Allan indicates that she is feeling well and denies any symptoms referable to elevated blood pressure. Specifically denies headache, chest pain, palpitations, dyspnea, and peripheral edema. Patient denies any side effects of her medication(s) and is compliant with their regimen. She does check BP's away from this office with average BP's in the 120-130/70s range. Santos works out regularly 5-6 times per week with walking. She watches her diet for sodium, low fat and low cholesterol most of the time. Last 3 Encounter BP Readings: Date: BP: 12/04/2022 114/78 08/28/2022 128/76 04/06/2022 118/86 REMIGIO: Uses CPAP nightly for an average of 4-5 hours. Feels refreshed during the day. Has chronic sleep issues. Sees Dr. Quinteros for sleep medicine and is currently on an auto setting to adjust with weight loss. Migraines without aura: has 1-2 times a month and resolves with 2 of the relpax. Was completely controlled with topirimate but did not tolerate the medication. Starts out feeling like a sinus issue then becomes a sharp pain behind her right eye. Does have slight sensitivity to sound or light. Denies any weakness, numbness, confusion, difficulty speaking, nausea, or any other concerns. Hypothyroidism: Sees endocrinology and takes medications as ordered. Does report chronic intolerance to heat. Bipolar: Prescribed medications and treatments by Dr. Wahl Sleep: is described as normal for patient Alcohol use: does not drink any alcohol Drug use: No Appetite: fair Stresses: Denies any major stressor. Suicidal Thoughts: No suicidal ideation, intent or plan Counseling: Yes, REVIEW OF SYSTEMS General: no fevers, no chills, no night sweats, no recurrent infections, no change in appetite, no change in energy, and no significant changes in weight Respiratory: no cough, no wheezing, no shortness of breath, no hemoptysis Cardiovascular: no chest pain, no chest pressure, no palpitations, and no swelling GI: No nausea, vomiting, or diarrhea Skin: Negative for lesions, rash, and itching Psych: PHQ2 is 0 Endocrine: no fatigue, no cold intolerance, no polyuria, no polyphagia, and no polydipsia Neurologic: No weakness, numbness, tingling, dizziness, memory loss, syncope. PAST MEDICAL HISTORY Diagnosis Date Acid reflux Anemia Anxiety disorder in conditions classified elsewhere Arthritis 03/03/2016 Bipolar I disorder, most recent episode (or current) unspecified Hypothyroidism Myalgia and myositis, unspecified REMIGIO (obstructive sleep apnea) [facility] [place] - [facility] for AutoPAP Other and unspecified hyperlipidemia Right ankle sprain 05/31/2017 Sjogren's disease (HCC) Type II or unspecified type diabetes mellitus without mention of complication, uncontrolled since 2002 Unspecified essential hypertension Unspecified vitamin D deficiency 03/10/2007 PAST SURGICAL HISTORY Procedure Laterality Date ANTERIOR INTERBODY FUSION, CERVICAL 2009 C5-C6 ARTHROSCOPY KNEE DIAGNOSTIC W/WO SYNOVIAL BX SPX Right knee COLONOSCOPY FLX DX W/COLLJ SPEC WHEN PFRMD 2002 Colonoscopy - diagnosed with IBS COLONOSCOPY FLX DX W/COLLJ SPEC WHEN PFRMD 04/05/2013 Colonoscopy repeat 3 years COLONOSCOPY FLX DX W/COLLJ SPEC WHEN PFRMD 03/18/16 Colonoscopy (MAC) ESOPHAGOGASTRODUODENOSCOPY TRANSORAL DIAGNOSTIC 04/05/2013 EGD ESOPHAGOGASTRODUODENOSCOPY TRANSORAL DIAGNOSTIC 01/02/2015 EGD LAP ADJUSTABLE GASTRIC BAND 08/20 PAST SURGICAL HISTORY OF left foot surgery PAST SURGICAL HISTORY OF 02/2013 left carpal tunnel PAST SURGICAL HISTORY OF 02/2013 radial styloidectomy PAST SURGICAL HISTORY OF 2013 c5,c6 refusion THYROIDECTOMY TOTAL/COMPLETE partial right - non malignant TONSILLECTOMY PRIMARY/SECONDARY Tonsillectomy ALLERGIES Imitrex [Sumatriptan] MEDICATIONS atorvastatin (LIPITOR) 10 mg tablet Take 4 tablets by mouth once daily. diclofenac, EC, (VOLTAREN) 50 mg EC tablet Take 50 mg by mouth once daily. (Patient not taking: Reported on 04/06/2022 ) hydroCHLOROthiazide (HYDRODIURIL, ESIDRIX) 12.5 mg tablet Take 12.5 mg by mouth once daily. metoprolol tartrate, short acting, (LOPRESSOR) 12.5 mg tab Take 12.5 mg by mouth every 12 hours. lisinopril (ZESTRIL, PRINIVIL) 20 mg tablet Take 1 tablet by mouth twice daily. CPAP Bilevel 25/20 cmH2O, Resmed F20 FFM (small), Ti max 2.0, Ti min 0.3, Trigger medium, Cycle medium, HUMIDITY, LIFETIME SUPPLIES. topiramate (TOPAMAX) 50 mg tablet Take 1 tablet by mouth twice daily. melatonin 3 mg tablet Take 1 tablet at approximately 7 PM. lefluno (more content not included)... [facility] 12-04-2022 History of Present illness Narrative CC: Patient presents with: Recheck: 3 month follow up HPI Santos Allan is a 56 year old female who presents today for follow up. Had gastric sleeve surgery this past August and has lost a total of 41lbs and tolerating well. HTN: Ms. Allan indicates that she is feeling well and denies any symptoms referable to elevated blood pressure. Specifically denies headache, chest pain, palpitations, dyspnea, and peripheral edema. Patient denies any side effects of her medication(s) and is compliant with their regimen. She does check BP's away from this office with average BP's in the 120-130/70s range. Santos works out regularly 5-6 times per week with walking. She watches her diet for sodium, low fat and low cholesterol most of the time. Last 3 Encounter BP Readings: Date: BP: 12/04/2022 114/78 08/28/2022 128/76 04/06/2022 118/86 REMIGIO: Uses CPAP nightly for an average of 4-5 hours. Feels refreshed during the day. Has chronic sleep issues. Sees Dr. Quinteros for sleep medicine and is currently on an auto setting to adjust with weight loss. Migraines without aura: has 1-2 times a month and resolves with 2 of the relpax. Was completely controlled with topirimate but did not tolerate the medication. Starts out feeling like a sinus issue then becomes a sharp pain behind her right eye. Does have slight sensitivity to sound or light. Denies any weakness, numbness, confusion, difficulty speaking, nausea, or any other concerns. Hypothyroidism: Sees endocrinology and takes medications as ordered. Does report chronic intolerance to heat. Bipolar: Prescribed medications and treatments by Dr. Wahl Sleep: is described as normal for patient Alcohol use: does not drink any alcohol Drug use: No Appetite: fair Stresses: Denies any major stressor. Suicidal Thoughts: No suicidal ideation, intent or plan Counseling: Yes, REVIEW OF SYSTEMS General: no fevers, no chills, no night sweats, no recurrent infections, no change in appetite, no change in energy, and no significant changes in weight Respiratory: no cough, no wheezing, no shortness of breath, no hemoptysis Cardiovascular: no chest pain, no chest pressure, no palpitations, and no swelling GI: No nausea, vomiting, or diarrhea Skin: Negative for lesions, rash, and itching Psych: PHQ2 is 0 Endocrine: no fatigue, no cold intolerance, no polyuria, no polyphagia, and no polydipsia Neurologic: No weakness, numbness, tingling, dizziness, memory loss, syncope. PAST MEDICAL HISTORY Diagnosis Date Acid reflux Anemia Anxiety disorder in conditions classified elsewhere Arthritis 03/03/2016 Bipolar I disorder, most recent episode (or current) unspecified Hypothyroidism Myalgia and myositis, unspecified REMIGIO (obstructive sleep apnea) DME - [employer] for AutoPAP Other and unspecified hyperlipidemia Right ankle sprain 05/31/2017 Sjogren's disease (HCC) Type II or unspecified type diabetes mellitus without mention of complication, uncontrolled since 2002 Unspecified essential hypertension Unspecified vitamin D deficiency 03/10/2007 PAST SURGICAL HISTORY Procedure Laterality Date ANTERIOR INTERBODY FUSION, CERVICAL 2009 C5-C6 ARTHROSCOPY KNEE DIAGNOSTIC W/WO SYNOVIAL BX SPX Right knee COLONOSCOPY FLX DX W/COLLJ SPEC WHEN PFRMD 2002 Colonoscopy - diagnosed with IBS COLONOSCOPY FLX DX W/COLLJ SPEC WHEN PFRMD 04/05/2013 Colonoscopy repeat 3 years COLONOSCOPY FLX DX W/COLLJ SPEC WHEN PFRMD 03/18/16 Colonoscopy (MAC) ESOPHAGOGASTRODUODENOSCOPY TRANSORAL DIAGNOSTIC 04/05/2013 EGD ESOPHAGOGASTRODUODENOSCOPY TRANSORAL DIAGNOSTIC 01/02/2015 EGD LAP ADJUSTABLE GASTRIC BAND 08/20 PAST SURGICAL HISTORY OF left foot surgery PAST SURGICAL HISTORY OF 02/2013 left carpal tunnel PAST SURGICAL HISTORY OF 02/2013 radial styloidectomy PAST SURGICAL HISTORY OF 2013 c5,c6 refusion THYROIDECTOMY TOTAL/COMPLETE partial right - non malignant TONSILLECTOMY PRIMARY/SECONDARY <AGE 14 Tonsillectomy ALLERGIES Imitrex [Sumatriptan] MEDICATIONS atorvastatin (LIPITOR) 10 mg tablet Take 4 tablets by mouth once daily. diclofenac, EC, (VOLTAREN) 50 mg EC tablet Take 50 mg by mouth once daily. (Patient not taking: Reported on 04/06/2022 ) hydroCHLOROthiazide (HYDRODIURIL, ESIDRIX) 12.5 mg tablet Take 12.5 mg by mouth once daily. metoprolol tartrate, short acting, (LOPRESSOR) 12.5 mg tab Take 12.5 mg by mouth every 12 hours. lisinopril (ZESTRIL, PRINIVIL) 20 mg tablet Take 1 tablet by mouth twice daily. CPAP Bilevel 25/20 cmH2O, Resmed F20 FFM (small), Ti max 2.0, Ti min 0.3, Trigger medium, Cycle medium, HUMIDITY, LIFETIME SUPPLIES. topiramate (TOPAMAX) 50 mg tablet Take 1 tablet by mouth twice daily. melatonin 3 mg tablet Take 1 tablet at approximately 7 PM. leflunomide (ARAVA) 10 mg tablet Take 2 tablets by mouth once daily. eletriptan (RELPAX) 20 mg tablet Take 1 at start of headache, may repeat in 2 hours if necessary (total of 3 tablets) cyclobenzaprine (FLEXERIL) 10 mg tablet Take 1 tablet by mouth three times daily. (Patient taking differently: Take 10 mg by mouth twice daily. ) [id number]-hej-mqvviva-ast (KRILL OIL) 1,644-084-07-50 mg cap Take 1,000 mg by mouth once daily. levothyroxine (SYNTHROID) 88 mcg tablet Take 1 tablet by mouth daily before breakfast. aspirin, enteric coated (ASPIRIN, ENTERIC COATED) 81 mg EC tablet Take 81 mg by mouth once daily. Cholecalciferol, Vitamin D3, (VITAMIN D) 1,000 unit tab Take 1,000 Units by mouth once daily. sulfaSALAzine (AZULFIDINE) 500 mg tablet Take 1 tablet by mouth twice daily. (Patient taking differently: Take 1,000 mg by mouth twice daily. ) aripiprazole (ABILIFY) 2 mg tablet Take 1 tablet by mouth twice daily. cevimeline (EVOXAC) 30 mg ORAL capsule Take 60 mg by mouth twice daily. citalopram hydrobromide(CELEXA 20 MG TAB) Take 1.5 tablet daily. sodium fluoride/pot nitrate(PREVIDENT 5000 SENSITIVE 1.1 %-5 % DENTAL PASTE) FAMILY HISTORY Problem Relation Age of Onset Diabetes Mother Hypertension Mother Psychiatry Mother bipolar Breast Cancer Mother Cancer Mother breast, uterus/bone Lipids Mother Diabetes Father Hypertension Father Osteoporosis Father Colon Cancer Father Stroke Father Lipids Father Headache Father Hypertension Brother Lipids Brother Headache Brother Diabetes Brother Social History Tobacco Use Smoking status: Former Packs/day: 0.50 Years: 20.00 Pack years: 10.00 Types: Cigarettes Quit date: 06/14/2003 Years since quittin.4 Smokeless tobacco: Never Substance Use Topics Alcohol use: Yes Comment: Occaisionally Drug use: No PHYSICAL EXAM BP 114/78 Pulse 88 Resp 16 Wt 103 kg (227 lb) LMP 02/13/2019 (Approximate) BMI 35.55 kg/m General Appearance: well appearing, in no acute distress, alert Pysch: mood and affect broad and appropriate Eyes: conjunctiva pink and moist, no icterus, sclera white, non-injected Neck: Thyroid normal size and symmetric without palpable nodules, No adenopathy Lymph nodes: No cervical lymphadenopathy and No supraclavicular lymphadenopathy Lungs: Lungs clear to auscultation. No wheezing, rhonchi, rales. Heart: RRR without murmur, gallop, or rubs. No ectopy Abdomen: Abdomen soft, non-tender. Bowel sounds normal. No masses, organomegaly BUE Extremities: No deformities, edema, skin discoloration, clubbing or cyanosis. Good capillary refill. Health maintenance reviewed with patient: MAMMOGRAM due on 08/02/2021 DEPRESSION ASSESSMENT due on 09/13/2022 HEPATITIS B(1 of 3 - 3-dose series) due on 08/28/2023 PNEUMOCOCCAL(3 - PCV) due on 08/28/2023 ANNUAL PCP TEAM CHRONIC DISEASE VISIT due on 08/28/2023 BP CONTROLLED (<130/80) due on 08/28/2023 PAP TESTING due on 06/15/2024 HPV TESTING due on 06/15/2024 DIABETES SCREEN due on 08/17/2025 DTAP,TDAP,TD(2 - Tdap) due on 06/16/2027 LIPID SCREEN due on 08/17/2027 COLORECTAL CANCER SCREENING due on 04/17/2031 INFLUENZA Completed HEPATITIS C SCREENING Completed HIV SCREENING Completed SHINGRIX VACCINE Completed COVID-19 VACCINE Completed DATA REVIEWED: Most recent labs ASSESSMENT/PLAN: 1. Essential hypertension - ICD9: 401.9, ICD10: I10 (primary diagnosis) - good control, but discussed with patient the importance of monitoring this as her blood pressure should decrease with continued weight loss. Patient to contact office if BP at home decreases or for any concerns. - Continue current medication(s) - Recommended regular aerobic exercise. - Recommend home blood pressure monitoring, to bring results in on next visit - Goal of BP <130/80 - follow up in 3 months 2. Acquired hypothyroidism - ICD9: 244.9, ICD10: E03.9 - stable - Instructed patient on importance of taking on an empty stomach either first thing in the morning or at bedtime. - continue with current dosage as prescribed by endocrinology 3. Migraine without aura and without status migrainosus, not intractable - ICD9: 346.10, ICD10: G43.009 - stable at this time. If migraines increase will need to evaluate other prophylactic options. - go to ER for sudden or severe headaches, numbness, weakness, confusion, or any other urgent issues. 4. Elevated fasting glucose - ICD9: 790.21, ICD10: R73.01 - HEMOGLOBIN A1C (POC) - 4.7 5. Bipolar I disorder, most recent episode depressed (HCC) - ICD9: 296.50, ICD10: F31.30 - stable and controlled with current treatment plan as ordered by psychiatry. - Reviewed concept of neurochemical imbalance wth depression/anxiety, treatment options and benefits of counseling in combination with medication. Also reviewed benefits of sleep hygeine, diet and exercise - Instructed patient to contact office or [id number] after-hours promptly should condition worsen or any new symptoms appear. - Counseling Center [facility] and after hours crisis line 6. Mixed hyperlipidemia - ICD9: 272.2, ICD10: E78.2 - to be determined upon return of lab results - Continue current medication. - Encouraged following a low fat, low cholesterol diet. - Discussed the benefits of regular aerobic exercise and weight loss. Prescription instructions reviewed with patient as applicable. Potential red flag symptoms discussed with the patient. Reviewed appropriate action plan to take if red flag symptoms occur. Patient agreeable to treatment plan. Micki Underwood APRN.CNP documented in this encounter [facility] 12-02-2022 Note [facility] PROGRESS NOTE POST WEIGHT LOSS SURGERY FOLLOW UP Patient: Santos Allan Service Date: 12/02/2022 Patient is 3 month(s) s/p Sleeve Gastrectomy Today's Metrics: Post-Surgical Weight Loss Date: 12/02/22 Height: 5' 7 (170.2 cm) ([facility]) Weight: 228 lb 6.4 oz (104 kg) ([facility]) BMI: 35.77 Weight Change: -20.4 lbs Total Weight Change: -44.4 lbs % EBWL: 32% Comments: 3M Pre-op Weight Metrics: Post-op Weight Metrics: %EBWL: % EBWL: 32% Weight Change Since Last Visit: Weight Change: -20.4 lbs Weight Change from Highest Pre-op Weight: Total Weight Change: -44.4 lbs Patient has the following questions: None Reported Pain: Patient rates pain on scale 0-10 as: 3 Exercise Compliance: Exercising: yes If yes: Type: walking Times per week: 5-6 Min per session: 30 Falls Risk Assessment Patient does take medications which affect BP or mental status Patient does not have newly prescribed or changed dosage of medications within past 30 days which affect BP or mental status Patient has not fallen in the past 2 months Patient does not demonstrate unsteady gait Patient uses the following ambulatory assistive devices: NONE Patient states the presence of the following traits which increases risk of fall: NONE Patient is not on home O2 Labs Completed: yes - If NO, patient instructed to get labs drawn today or BRUNILDA If YES: Labs completed at [facility]? no If yes see Labs Tab Labs completed at Non-[facility] facility? yes If yes see Encounters Tab - Orders only - Historical Provider - Date: 11/13/2022 SCANNED INTO MEDIA Completed by: Kristina Dillard MA [facility] 12-02-2022 History of Present illness Narrative Images from the original note were not included. HPI, PHYSICAL EXAMINATION & PLAN POST-OP HPI: Patient here today for 3 month post-weight loss surgery follow up The patient is feeling well. Denies nausea, vomiting, dysphagia, or any GERD Sx. Currently is on any PPI. Patient states diet and exercise is going well. Currently is eating 65-75 gm/day protein, and is compliant with prescribed multivitamins and supplements. Eating 5-6 times per day. Fluid intake 64 ounces daily. Some issues with chicken, but does not eat a lot of chicken anyway. BM daily- hx of IBS so somewhat variable between constipation and diarrhea. Exercise: yes Type: walking Times per week: 5-6 Min per session: 30 Review of Systems Constitutional: Negative for chills and fever. HENT: Negative for congestion, sore throat and trouble swallowing. Respiratory: Negative for cough and shortness of breath. Cardiovascular: Negative for chest pain and palpitations. Gastrointestinal: Positive for constipation and diarrhea. Negative for abdominal pain, nausea and vomiting. Genitourinary: Negative for dysuria and frequency. Musculoskeletal: Negative for arthralgias and back pain. Skin: Negative for color change. Neurological: Negative for dizziness and light-headedness. Psychiatric/Behavioral: The patient is not nervous/anxious. Vital signs are stable. Labs were Completed. All labs were: normal Physical Examination: BP 123/78 Pulse 98 Temp 35.6 C (96 F) Resp 16 Ht 5' 7 (1.702 m) Wt 228 lb 6.4 oz (104 kg) BMI 35.77 kg/m General: This patient is awake, alert, and oriented, and is in no apparent distress. Respiratory: Non-labored breathing Abdomen: Obese, soft, non-tender, non-distended without masses/ No evidence of abdominal hernia / Incisions consistent with previous surgeries. Head and Neck: Obese, normocephalic and atraumatic Extremities: No cyanosis, clubbing or edema/ No calf tenderness/No restrictions of movement, is ambulatory without assistance. Skin: No rashes or lesions noted. 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 4). Follow up at 6 month office visit with standard labs 5). Psych concerns: no 6). Weight loss: Post-op Weight Metrics: %EBWL: % EBWL: 32% Weight Change Since Last Visit: Weight Change: -20.4 lbs Weight Change from Highest Pre-op Weight: Total Weight Change: -44.4 lbs HTN -stable on metoprolol, lisinopril, hydrochlorothiazide HLD -on statin, will check lipid panel with 6M labs REMIGIO -compliant with CPAP Orders Placed This Encounter Procedures Zinc These orders are set for an approximate date - they can be drawn up to 3 months prior to the Expected Date on this Req. Please send results to: Olga Bolaños MD - [address] [facility] [address] - [phone] And if not done at a [facility] Facility, please send to: [facility] [place] - [address] [place] [address], [address] [facility], [address] Patient Name: Santos Allan - 1965 Order Created by : Kristina Dillard MA Standing Status: Future Standing Expiration Date: 12/03/2023 Folate These orders are set for an approximate date - they can be drawn up to 3 months prior to the Expected Date on this Req. Please send results to: Olga Bolaños MD - [address] [facility] [address] - [phone] And if not done at a [facility] Facility, please send to: [place] [address] Patient Name: Santos Allan - 1965 Order Created by : Kristina Dillard MA Standing Status: Future Standing Expiration Date: 12/03/2023 Iron These orders are set for an approximate date - they can be drawn up to 3 months prior to the Expected Date on this Req. Please send results to: [facility] [address] - [phone] And if not done at a [facility] Facility, please send to: [place] [address] Patient Name: Santos Abarcat - 1965 Order Created by : Kristina Dillard MA Standing Status: Future Standing Expiration Date: 12/03/2023 Ferritin These orders are set for an approximate date - they can be drawn up to 3 months prior to the Expected Date on this Req. Please send results to: [facility] [address] - [phone] And if not done at a [facility] Facility, please send to: [place] [address] Patient Name: Santos Abarcat - 1965 Order Created by : Kristina Dillard MA Standing Status: Future Standing Expiration Date: 12/03/2023 Magnesium These orders are set for an approximate date - they can be drawn up to 3 months prior to the Expected Date on this Req. Please send results to: Olga Bolaños MD - [address] [facility] [address] - [phone] And if not done at a [facility] Facility, please send to: [address], [address] Patient Name: Santos Allan - 1965 Order Created by : Kristina Dillard MA Standing Status: Future Standing Expiration Date: 12/03/2023 Vitamin D 25 hydroxy These orders are set for an approximate date - they can be drawn up to 3 months prior to the Expected Date on this Req. Please send results to: Olga Bolaños MD - [facility] [address] - [phone] And if not done at a [facility] Facility, please send to: [address], [address] Patient Name: Santos Allan - 1965 Order Created by : Kristina Dillard MA Standing Status: Future Standing Expiration Date: 12/03/2023 Vitamin B12 These orders are set for an approximate date - they can be drawn up to 3 months prior to the Expected Date on this Req. Please send results to: Olga Bolaños MD - [address] [facility] [address] - [phone] And if not done at a [facility] Facility, please send to: [address], [address] Patient Name: Santos Allan - 1965 Order Created by : Kristina Dillard MA Standing Status: Future Standing Expiration Date: 12/03/2023 Vitamin B1, whole blood These orders are set for an approximate date - they can be drawn up to 3 months prior to the Expected Date on this Req. Please send results to: Olga Bolaños MD - [address] [facility] [address] - [phone] And if not done at a [facility] Facility, please send to: [address], [facility] Patient Name: Santos Allan - 1965 Order Created by : Kristina Dillard MA Standing Status: Future Standing Expiration Date: 12/03/2023 Lipid panel These orders are set for an approximate date - they can be drawn up to 3 months prior to the Expected Date on this Req. Please send results to: Olga Bolaños MD - [facility] [address] - [phone] And if not done at a [facility] Facility, please send to: [address], [facility] Patient Name: Santos Allan - 1965 Order Created by : Kristina Dillard MA Standing Status: Future Standing Expiration Date: 12/03/2023 Comprehensive metabolic panel These orders are set for an approximate date - they can be drawn up to 3 months prior to the Expected Date on this Req. Please send results to: Olga Bolaños MD - [address] [facility] [address] - [phone] And if not done at a [facility] Facility, please send to: [address], [facility] Patient Name: Santos Allan - 1965 Order Created by : Kristina Dillard MA Standing Status: Future Standing Expiration Date: 12/03/2023 CBC These orders are set for an approximate date - they can be drawn up to 3 months prior to the Expected Date on this Req. Please send results to: Olga Bolaños MD - [address] [facility] [address] - [phone] And if not done at a [facility] Facility, please send to: [address], [address] Patient Name: Santos Allan - 1965 Order Created by : Kristina Dillard MA Standing Status: Future Standing Expiration Date: 12/03/2023 Medications ordered during this encounter: Outpatient Encounter Medications as of 12/02/2022 Medication Sig Dispense Refill ARIPiprazole (Abilify) 2 MG tablet Every 24 hours. atorvastatin (Lipitor) 40 MG tablet Take 40 mg by mouth Nightly. cevimeline (Evoxac) 30 MG capsule every 12 hours. cholecalciferol (Vitamin D-3) 25 MCG (1000 UT) tablet Take 2,000 Units by mouth in the morning. citalopram (CeleXA) 10 MG tablet Take 10 mg by mouth daily. citalopram (CeleXA) 20 MG tablet daily. cyanocobalamin (Vitamin B-12) 500 MCG tablet Every 24 hours. cyclobenzaprine (Flexeril) 10 MG tablet Take 10 mg by mouth at noon and 10 mg in the evening. hydroCHLOROthiazide (HYDRODiuril) 12.5 MG tablet Take 12.5 mg by mouth in the morning. hydroxychloroquine (Plaquenil) 200 MG tablet Take 200 mg by mouth at noon and 200 mg in the evening. leflunomide (Arava) 20 MG tablet daily. levothyroxine (Synthroid, Levoxyl) 88 MCG tablet Take 88 mcg by mouth daily. lisinopril 20 MG tablet twice a day. metoprolol succinate XL (Toprol-XL) 25 MG 24 hr tablet Respiratory Therapy Supplies (CareTouch CPAP & BIPAP Hose) misc 12-20 cm Nightly. sulfaSALAzine (Azulfidine) 500 MG EC tablet Take 1,000 mg by mouth in the morning and 1,000 mg before bedtime. Ubiquinol 200 MG capsule Take 200 mg by mouth daily. ursodiol (Actigall) 300 MG capsule Take 300 mg by mouth 2 times daily. [DISCONTINUED] omeprazole (PriLOSEC) [address] capsule Take 1 capsule (20 mg) by mouth daily. Do not crush or chew. For postop (Patient taking differently: Take 20 mg by mouth daily. Do not crush or chew. For postop) 30 capsule 0 omeprazole (PriLOSEC) [address] capsule Take 1 capsule (20 mg) by mouth daily. Do not crush or chew. 90 capsule 0 [DISCONTINUED] Krill Oil 1000 MG capsule Take 1,000 mg by mouth in the morning. [DISCONTINUED] nystatin (Mycostatin) 520026 UNIT/ML suspension Swish and spit 5 mL (500,000 Units) 3 times daily. Swish and spit 5 mLs by mouth three times daily for 10 days. 150 mL 1 [DISCONTINUED] Semaglutide (OZEMPIC, 0.25 OR 0.5 MG/DOSE, SC) Inject under the skin 1 (one) time per week. 0.25 mg On No facility-administered encounter medications on file as of 12/02/2022. Visit Diagnoses: 1. Primary hypertension 2. REMIGIO on CPAP 3. Deficiency of multiple nutrient elements 4. Class 2 severe obesity due to excess calories with serious comorbidity and body mass index (BMI) of 35.0 to 35.9 in adult (HCC) 5. High cholesterol Current Medications: Patient's Medications New Prescriptions OMEPRAZOLE (PRILOSEC) [address] CAPSULE Take 1 capsule (20 mg) by mouth daily. Do not crush or chew. Previous Medications ARIPIPRAZOLE (ABILIFY) 2 MG TABLET Every 24 hours. ATORVASTATIN (LIPITOR) 40 MG TABLET Take 40 mg by mouth Nightly. CEVIMELINE (EVOXAC) 30 MG CAPSULE every 12 hours. CHOLECALCIFEROL (VITAMIN D-3) 25 MCG (1000 UT) TABLET Take 2,000 Units by mouth in the morning. CITALOPRAM (CELEXA) 10 MG TABLET Take 10 mg by mouth daily. CITALOPRAM (CELEXA) 20 MG TABLET daily. CYANOCOBALAMIN (VITAMIN B-12) 500 MCG TABLET Every 24 hours. CYCLOBENZAPRINE (FLEXERIL) 10 MG TABLET Take 10 mg by mouth at noon and 10 mg in the evening. HYDROCHLOROTHIAZIDE (HYDRODIURIL) 12.5 MG TABLET Take 12.5 mg by mouth in the morning. HYDROXYCHLOROQUINE (PLAQUENIL) 200 MG TABLET Take 200 mg by mouth at noon and 200 mg in the evening. LEFLUNOMIDE (ARAVA) 20 MG TABLET daily. LEVOTHYROXINE (SYNTHROID, LEVOXYL) 88 MCG TABLET Take 88 mcg by mouth daily. LISINOPRIL 20 MG TABLET twice a day. METOPROLOL SUCCINATE XL (TOPROL-XL) 25 MG 24 HR TABLET RESPIRATORY THERAPY SUPPLIES (CARETOUCH CPAP & BIPAP HOSE) MISC 12-20 cm Nightly. SULFASALAZINE (AZULFIDINE) 500 MG EC TABLET Take 1,000 mg by mouth in the morning and 1,000 mg before bedtime. UBIQUINOL 200 MG CAPSULE Take 200 mg by mouth daily. URSODIOL (ACTIGALL) 300 MG CAPSULE Take 300 mg by mouth 2 times daily. Modified Medications No medications on file Discontinued Medications KRILL OIL 1000 MG CAPSULE Take 1,000 mg by mouth in the morning. NYSTATIN (MYCOSTATIN) 288944 UNIT/ML SUSPENSION Swish and spit 5 mL (500,000 Units) 3 times daily. Swish and spit 5 mLs by mouth three times daily for 10 days. OMEPRAZOLE (PRILOSEC) [address] CAPSULE Take 1 capsule (20 mg) by mouth daily. Do not crush or chew. For postop SEMAGLUTIDE (OZEMPIC, 0.25 OR 0.5 MG/DOSE, SC) Inject under the skin 1 (one) time per week. 0.25 mg On [facility] PROGR[facility] POST WEIGHT LOSS SURGERY FOLLOW UP Patient: Santos Allan Service Date: 12/02/2022 Patient is 3 month(s) s/p Sleeve Gastrectomy Today's Metrics: Post-Surgical Weight Loss Date: 12/02/22 Height: 5' 7 (170.2 cm) ([facility]) Weight: 228 lb 6.4 oz (104 kg) ([facility]) BMI: 35.77 Weight Change: -20.4 lbs Total Weight Change: -44.4 lbs % EBWL: 32% Comments: 3M Pre-op Weight Metrics: Post-op Weight Metrics: %EBWL: % EBWL: 32% Weight Change Since Last Visit: Weight Change: -20.4 lbs Weight Change from Highest Pre-op Weight: Total Weight Change: -44.4 lbs Patient has the following questions: None Reported Pain: Patient rates pain on scale 0-10 as: 3 Exercise Compliance: Exercising: yes If yes: Type: walking Times per week: 5-6 Min per session: 30 Falls Risk Assessment Patient does take medications which affect BP or mental status Patient does not have newly prescribed or changed dosage of medications within past 30 days which affect BP or mental status Patient has not fallen in the past 2 months Patient does not demonstrate unsteady gait Patient uses the following ambulatory assistive devices: NONE Patient states the presence of the following traits which increases risk of fall: NONE Patient is not on home O2 Labs Completed: yes - If NO, patient instructed to get labs drawn today or BRUNILDA If YES: Labs completed at [facility]? no If yes see Labs Tab Labs completed at Non-[facility] facility? yes If yes see Encounters Tab - Orders only - Historical Provider - Date: 11/13/2022 SCANNED INTO MEDIA Completed by: Kristina Dillard MA [facility] 3 MONTH POST-OPERATIVE DIETITIAN VISIT Date: 12/02/22 Current diet reviewed with patient. Soft and maintenance diets discussed and. handouts provided. Patient's weight decreased by: -44.4 lbs Patient consumes 5-6 small meals daily: Yes Patient s portions are adequate for current diet: -1 cup Protein requirements discussed- currently consuming 65+ grams of protein daily. Current protein sources: taking in all protein and a shake per day Recommendations: will cont to track Fluid requirements discussed. Current Fluid Intake: 64+ Patient drinks sugar-free, caffeine-free and carbonation-free fluids only. Patient waits 30 minutes before and after meals to drink Exercise activities discussed. Patient is currently exercising. She was reminded that regular exercise is critical part of a successful outcome following weight loss surgery. Behavioral/Emotional changes reviewed. Patient does feel comfortable with changes in eating behaviors and associated emotional changes. She was reminded that psychological counseling is available through the [facility] post-operatively. The importance of vitamin supplements has been reviewed and the patient is taking the following: -Multivitamin with minerals and iron -Calcium -Vitamin B12 -Vitamin D3 -Other: Recent Nutrient Concerns and Vitamin Supplementation Changes: Pt is taking al vitamins, B12 elevated, now taking 1 x weekly. Pt can switch to non chewable vitamins at this time. Will change from Calcium carbonate (Tums) to Calcium Citrate 500 mg TID. Notes/Comments: Pt is doing great overall! Pt to call as needed with any issues or concerns that arise. Visit completed by: Lorena Alexis RD documented in this encounter [facility] 10-23-2022 Miscellaneous Notes May at Dr Ortiz's office notified and will notify us with his recommendations. Please call Dr. Story office to let him know there is not an antiinflammatory injection I can order regularly. Would an antiinflammatory topical gel work? Thank you Micki Underwood APRN.CNP Patient verified she is able to take oral medications just unable to ever take NSAIDs again due to her recent bariatric surgery. Left message for return call. Is patient able to do steroids orally at this time? There are no daily injections I can prescribe for this. Thank you Micki Underwood APRN.CNP May at [facility] called and is notified of providers message. 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 Per the Pt she told them she couldn't take the oral form since she had gastric surgery, but that it was fine for her to take the injections. Please call and advise. Jacy Carr RN Understandable. Please call dentist office and ask what Dr. Ortiz is wanting to prescribe meloxicam for. Thank you Micki Underwood APRN.CNP Called pt and she reports she just had a gastric sleeve placed in Dec. She is not taking anything orally she says. I am assuming she does not take NSAIDs because of her high blood pressure so injectable would not be an option either. Please verify this is the reason with patient. Also what was reasoning for a month of meloxicam? Thank you Micki Underwood APRN.CNP Alcira from Dr. Ortiz's office at [facility] calls and states that Dr. Ortiz was wanting to prescribe patient meloxicam 15 mg for 30 days, however patient had told him that she cannot take oral NSAIDS. Dr. Ortiz asking if provider can prescribe medication in injection form? Please review and advise, Sherry Roman RN documented in this encounter [facility] 10-08-2022 Note [facility] PROGRESS NOTE POST WEIGHT LOSS SURGERY FOLLOW UP Patient: Santos Gravesmuralisangita Service Date: 10/08/2022 Patient is 1 month(s) s/p Sleeve Gastrectomy HH Today's Metrics: Post-Surgical Weight Loss Date: 10/08/22 Height: 5' 7 (170.2 cm) Weight: 248 lb 12.8 oz (113 kg) BMI: 38.96 Weight Change: -15.2 lbs Total Weight Change: -24 lbs % EBWL: 18% Comments: 1M Pre-op Weight Metrics: Post-op Weight Metrics: %EBWL: % EBWL: 18% Weight Change Since Last Visit: Weight Change: -15.2 lbs Weight Change from Highest Pre-op Weight: Total Weight Change: -24 lbs Patient has the following questions: None Reported Pain: Patient rates pain on scale 0-10 as: 0 Exercise Compliance: Exercising: yes If yes: Type: walking Times per week: 5 Min per session: 20-25 Falls Risk Assessment Patient does take medications which affect BP or mental status Patient does not have newly prescribed or changed dosage of medications within past 30 days which affect BP or mental status Patient has not fallen in the past 2 months Patient does not demonstrate unsteady gait Patient uses the following ambulatory assistive devices: none Patient states the presence of the following traits which increases risk of fall: none Patient is not on home O2 Labs Completed: yes - If NO, patient instructed to get labs drawn today or BRUNILDA If YES: Labs completed at [facility]? no If yes see Labs Tab Labs completed at Non-[facility] facility? Yes, [facility] If yes see Encounters Tab - Orders only - Historical Provider - Date: Completed by: [facility] 10-01-2022 Miscellaneous Notes I called patient and gave him my phone number to call him. Regards, Olga Bolaños MD May with [facility] calls to let provider know that Dr. Teodoro Ortiz would like to discuss patient with provider. 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 Ortiz would like to treat patient with medication but prior to treating he would like to discuss with provider. Dr. Ortiz requesting a call back at [phone]. Samra Bolanos RN documented in this encounter [facility] 09-21-2022 History of Present illness Narrative ESTABLISHED PATIENT VISIT (Virtual Visit with Video) For this virtual visit, the patient has been identified by name and (MRN and photo identification as well if available). Those taking part in visit: Patient with physician via [employer]. Consent for this visit received from patient. HISTORY OF PRESENT ILLNESS: Santos Allan is a 56 year old female, with a PMH significant for and per last office visit note of 04/06/22: 1. Obstructive sleep apnea (adult) (pediatric) - ICD9: 327.23, ICD10: G47.33 (primary diagnosis) 2. Migraine without status migrainosus, not intractable, unspecified migraine type - ICD9: 346.90, ICD10: G43.909 3. Insomnia, unspecified type - ICD9: 780.52, ICD10: G47.00 4. Class 3 severe obesity with body mass index (BMI) of 40.0 to 44.9 in adult, unspecified obesity type, unspecified whether serious comorbidity present (HCC) - ICD9: 278.01, V85.41, ICD10: E66.01, Z68.41 Patient doing well on PAP therapy, with near normalization of AHI with its use. Subjectively and objectively compliant with device (see download data above). Primary issue at this time is mask leak as noted above. Will provide Rx for Resmed F20 mask but will et for her version to see if fits better. Otherwise pt happy to continue with PAP use as it has resulted in elimination of insomnia and headaches. Encouraged weight loss. Advised patient to clean and replace equipment regularly. Advised pt to not drive or operate heavy machinery when sleepy. Pt will follow up in ~6 months or sooner prn. PAP data download requested, but that sent is for 30 days of use from the summer of 2021 (scanned in [employer]). Per records, pt with GI surgery during the interim - gastric sleeve (09/02/22). Patient so far has lost 16 pounds. Still tolerating bilevel PAP. Reports no changes to her sleep at night. States she stopped taking melatonin for a while. Some difficulties staying asleep at night. States usually due to need to urinate and then some difficulties getting back to sleep. No issues falling asleep. Using PAP nightly. States she tried medium mask in For her mask, but too big, and back to using a small standard but needing to tighten straps. Pt states machine is reporting no leaks. Pt denies any headaches since on PAP and has not been on Tpx for months. REVIEW OF SYSTEMS GENERAL:No weight loss, malaise or fevers. HEENT:Negative for frequent or significant headaches, No changes in hearing or vision, no nose bleeds or other nasal problems RESPIRATORY: Negative for cough, wheezing or shortness of breath. CARDIOVASCULAR: Negative for chest pain, leg swelling or palpitations. LAB/IMAGING: Those performed since patient's last visit have been reviewed. WBC (k/uL) Date Value 03/02/2022 6.41 RBC (m/uL) Date Value 03/02/2022 4.28 Hemoglobin (g/dL) Date Value 03/02/2022 12.7 Hematocrit (%) Date Value 03/02/2022 42.1 MCV (fL) Date Value 03/02/2022 98.4 MCH (pg) Date Value 03/02/2022 29.7 MCHC (g/dL) Date Value 03/02/2022 30.2 (L) RDW-CV (%) Date Value 03/02/2022 13.0 Platelet Count (k/uL) Date Value 03/02/2022 289 MPV (fL) Date Value 03/02/2022 10.2 Glucose (mg/dL) Date Value 08/17/2022 121 (H) BUN (mg/dL) Date Value 08/17/2022 10 Creatinine (mg/dL) Date Value 08/17/2022 0.59 Sodium (mmol/L) Date Value 08/17/2022 139 Potassium (mmol/L) Date Value 08/17/2022 4.1 Chloride (mmol/L) Date Value 08/17/2022 101 CO2 (mmol/L) Date Value 08/17/2022 27 Protein, Total (g/dL) Date Value 04/27/2017 6.9 Albumin (g/dL) Date Value 04/27/2017 3.9 Calcium, Total (mg/dL) Date Value 08/17/2022 9.7 Alkaline Phosphatase (U/L) Date Value 04/27/2017 55 Bilirubin, Total (mg/dL) Date Value 04/27/2017 0.3 AST (U/L) Date Value 04/27/2017 27 ALT (U/L) Date Value 04/27/2017 21 Hep C Antibody IA (no units) Date Value 08/16/2020 Negative MEDICATIONS: atorvastatin (LIPITOR) 10 mg tablet Take 4 tablets by mouth once daily. diclofenac, EC, (VOLTAREN) 50 mg EC tablet Take 50 mg by mouth once daily. (Patient not taking: Reported on 04/06/2022 ) hydroCHLOROthiazide (HYDRODIURIL, ESIDRIX) 12.5 mg tablet Take 12.5 mg by mouth once daily. metoprolol tartrate, short acting, (LOPRESSOR) 12.5 mg tab Take 12.5 mg by mouth every 12 hours. lisinopril (ZESTRIL, PRINIVIL) 20 mg tablet Take 1 tablet by mouth twice daily. CPAP Bilevel 25/20 cmH2O, Resmed F20 FFM (small), Ti max 2.0, Ti min 0.3, Trigger medium, Cycle medium, HUMIDITY, LIFETIME SUPPLIES. topiramate (TOPAMAX) 50 mg tablet Take 1 tablet by mouth twice daily. melatonin 3 mg tablet Take 1 tablet at approximately 7 PM. leflunomide (ARAVA) 10 mg tablet Take 2 tablets by mouth once daily. eletriptan (RELPAX) 20 mg tablet Take 1 at start of headache, may repeat in 2 hours if necessary (total of 3 tablets) cyclobenzaprine (FLEXERIL) 10 mg tablet Take 1 tablet by mouth three times daily. (Patient taking differently: Take 10 mg by mouth twice daily. ) uyynq-[id number]-arj-knn-mvgnylk-ast (KRILL OIL) [id number] mg cap Take 1,000 mg by mouth once daily. levothyroxine (SYNTHROID) 88 mcg tablet Take 1 tablet by mouth daily before breakfast. aspirin, enteric coated (ASPIRIN, ENTERIC COATED) 81 mg EC tablet Take 81 mg by mouth once daily. Cholecalciferol, Vitamin D3, (VITAMIN D) 1,000 unit tab Take 1,000 Units by mouth once daily. sulfaSALAzine (AZULFIDINE) 500 mg tablet Take 1 tablet by mouth twice daily. (Patient taking differently: Take 1,000 mg by mouth twice daily. ) aripiprazole (ABILIFY) 2 mg tablet Take 1 tablet by mouth twice daily. cevimeline (EVOXAC) 30 mg ORAL capsule Take 60 mg by mouth twice daily. citalopram hydrobromide(CELEXA 20 MG TAB) Take 1.5 tablet daily. sodium fluoride/pot nitrate(PREVIDENT 5000 SENSITIVE 1.1 %-5 % DENTAL PASTE) HISTORIES PAST MEDICAL HISTORY Diagnosis Date Acid reflux Anemia Anxiety disorder in conditions classified elsewhere Arthritis 03/03/2016 Bipolar I disorder, most recent episode (or current) unspecified Hypothyroidism Myalgia and myositis, unspecified REMIGIO (obstructive sleep apnea) DME - [employer] for AutoPAP Other and unspecified hyperlipidemia Right ankle sprain 05/31/2017 Sjogren's disease (HCC) Type II or unspecified type diabetes mellitus without mention of complication, uncontrolled since 2002 Unspecified essential hypertension Unspecified vitamin D deficiency 03/10/2007 FAMILY HISTORY Problem Relation Age of Onset Diabetes Mother Hypertension Mother Psychiatry Mother bipolar Breast Cancer Mother Cancer Mother breast, uterus/bone Lipids Mother Diabetes Father Hypertension Father Osteoporosis Father Colon Cancer Father Stroke Father Lipids Father Headache Father Hypertension Brother Lipids Brother Headache Brother Diabetes Brother SOCIAL HISTORY Social History Tobacco Use Smoking status: Former Packs/day: 0.50 Years: 20.00 Pack years: 10.00 Types: Cigarettes Quit date: 06/14/2003 Years since quittin.2 Smokeless tobacco: Never Substance Use Topics Alcohol use: Yes Comment: Occaisionally Drug use: No PHYSICAL EXAMINATION LMP 02/13/2019 (Approximate) GENERAL EXAM: General appearance: NAD, pleasant. HEENT: NC/AT, nasal congestion absent, no oral lesions, membranes moist. NECK: ROM nml. Lungs: No audible cough, wheeze, sob. NEUROLOGICAL EXAM: General: Awake, alert, oriented x3 (person,place,time), speech fluent, no dysarthria; comprehension, naming, repetition intact. CN: EOMI, face symmetric, hearing is intact to finger rub bilaterally, palate and tongue movements are intact and symmetric. SCM and trapezius strength symmetric. Motor: MARADIAGA equal and symmetric. Sleep Questionnaire Data Depression Screening 11/15/2021 08/28/2022 09/14/2022 PHQ-2 Score 0 0 0 PHQ-9 Score 5 - 1 PED PHQ-9 11/15/2021 08/28/2022 09/14/2022 Little interest or pleasure in doing things Not at all - Not at all Feeling down, depressed, or hopeless Not at all - Not at all Trouble falling or staying asleep, or sleeping too much Nearly every day - Several days Feeling tired or having little energy More than half the days - Not at all Poor appetite or overeating Not at all - Not at all Feeling bad about yourself - or that you are a failure or have let yourself or your family down Not at all - Not at all Trouble concentrating on things, such as reading the newspaper or watching television Not at all - Not at all Moving or speaking so slowly that other people could have noticed. Or the opposite - being so fidgety or restless that you have been moving around a lot more than usual Not at all - Not at all Thoughts that you would be better off , or of hurting yourself in some way Not at all - Not at all If you checked off any problems, how difficult have these problems made it for you to do your work, take care of things at home, or get along with other people? Somewhat difficult - Not difficult at all PHQ-9 Score 5 (Mild Depression) - 1 (None-Minimal Depression) [place] Sleepiness Scale 11/15/2021 08/28/2022 09/14/2022 Score 10 (No daytime sleepiness) - 4 (No daytime sleepiness) Insomnia Severity Index 11/15/2021 08/28/2022 09/14/2022 Score 14 - - Assessment and Plan: ASSESSMENT/PLAN: 1. Obstructive sleep apnea (adult) (pediatric) - ICD9: 327.23, ICD10: G47.33 (primary diagnosis) 2. Insomnia, unspecified type - ICD9: 780.52, ICD10: G47.00 3. Class 3 severe obesity with body mass index (BMI) of 40.0 to 44.9 in adult, unspecified obesity type, unspecified whether serious comorbidity present (HCC) - ICD9: 278.01, V85.41, ICD10: E66.01, Z68.41 Patient subjectively doing well on PAP (data download pending). Now s/p gastric sleeve and given weight loss, will switch pt from set bilevel PAP of 25/20 cmH2O to auto-bilevel PAP set at IPAP max 25, EPAP min 10, and PS 5 cm H2O. Will have pt follow up in 3 months given ongoing weight loss and possible need to further adjust pressure settings, or sooner prn. Reminded to clean and replace equipment regularly. Headaches resolved. Encouraged continued weight loss. Maintenance insomnia of uncertain etiology, with no racing thoughts, worries, pain. Possibly just due to need to urinate. Note previously resolved on melatonin. She will restart the latter first but if still persists consider referral to behavioral sleep med next visit. Pt agrees with plan. Alexander Quinteros MD I spent a total of 25 minutes on the date of the service which included preparing to see the patient, [id number] patient care, completing clinical documentation, obtaining and/or reviewing separately obtained history, performing a medically appropriate examination, counseling and educating the patient/family/caregiver, ordering medications, tests, or procedures, and communicating results to the patient/family/caregiver. documented in this encounter [facility] 08-28-2022 History of Present illness Narrative CC: Patient presents with: Recheck: 6 month follow up HPI Santos Allan is a 56 year old female who presents today for routine 6 month follow up. HTN: Ms. Allan indicates that she is feeling well and denies any symptoms referable to elevated blood pressure. Specifically denies headache, chest pain, palpitations, dyspnea, and peripheral edema. Patient denies any side effects of her medication(s) and is compliant with their regimen. She does not check BP's generally. Last 3 Encounter BP Readings: Date: BP: 08/28/2022 128/76 04/06/2022 118/86 03/09/2022 122/66 Hypothyroidism: Sees endocrinology and dosed by them. Denies any fatigue, intolerance to heat/cold, or abnormal weight changes. Takes medication as prescribed. Bipolar: Sees psychiatry: Feels everything is well controlled on current dosage. Sleep: is described as normal Alcohol use: drinks less than one drink a day Drug use: No Appetite: good Stresses: Denies any major stressor. Suicidal Thoughts: No suicidal ideation, intent or plan Support: Comes from multiple sources including family. Prediabetes: On low dose ozempic as prescribed by endocrinology prior to surgery. She denies excessive thirst or increased frequency of urination, chest pain or dyspnea , numbness, tingling or pain in extremities, new or unusual visual symptoms, low sugar/hypoglycemic reactions, weight loss/gain, lightheadedness/dizziness, and bowel changes. She is compliant with medication(s) and is tolerating med(s) without any side effects. She reports checking her glucose on a infrequent to not at all basis schedule . Patient's last HgA1C was 6.2 a few weeks ago Hemoglobin A1C (%) Date Value 02/15/2021 4.8 09/18/2017 4.9 03/24/2017 4.8 02/20/2016 4.7 ) Having a stomach sleeve bariatric surgery at [facility] next Wednesday.Has had 2 different banding surgeries in the past that the band would slip . 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 REVIEW OF SYSTEMS General: no fevers, no chills, no night sweats, no recurrent infections, no change in appetite, no change in energy, and no significant changes in weight Respiratory: no cough, no wheezing, no shortness of breath, no hemoptysis Cardiovascular: no chest pain, no chest pressure, no palpitations, and no swelling Endocrine: no fatigue, no weight gain, no weight loss, no hair loss, no heat intolerance, no polyuria, no polyphagia, and no polydipsia Neurologic: No headache, weakness, dizziness, memory loss, syncope. PAST MEDICAL HISTORY Diagnosis Date Acid reflux Anemia Anxiety disorder in conditions classified elsewhere Arthritis 03/03/2016 Bipolar I disorder, most recent episode (or current) unspecified Hypothyroidism Myalgia and myositis, unspecified REMIGIO (obstructive sleep apnea) DME - [employer] for AutoPAP Other and unspecified hyperlipidemia Right ankle sprain 05/31/2017 Sjogren's disease (HCC) Type II or unspecified type diabetes mellitus without mention of complication, uncontrolled since 2002 Unspecified essential hypertension Unspecified vitamin D deficiency 03/10/2007 PAST SURGICAL HISTORY Procedure Laterality Date ANTERIOR INTERBODY FUSION, CERVICAL 2009 C5-C6 ARTHROSCOPY KNEE DIAGNOSTIC W/WO SYNOVIAL BX SPX Right knee COLONOSCOPY FLX DX W/COLLJ SPEC WHEN PFRMD 2002 Colonoscopy - diagnosed with IBS COLONOSCOPY FLX DX W/COLLJ SPEC WHEN PFRMD 04/05/2013 Colonoscopy repeat 3 years COLONOSCOPY FLX DX W/COLLJ SPEC WHEN PFRMD 03/18/16 Colonoscopy (MAC) ESOPHAGOGASTRODUODENOSCOPY TRANSORAL DIAGNOSTIC 04/05/2013 EGD ESOPHAGOGASTRODUODENOSCOPY TRANSORAL DIAGNOSTIC 01/02/2015 EGD LAP ADJUSTABLE GASTRIC BAND 08/20 PAST SURGICAL HISTORY OF left foot surgery PAST SURGICAL HISTORY OF 02/2013 left carpal tunnel PAST SURGICAL HISTORY OF 02/2013 radial styloidectomy PAST SURGICAL HISTORY OF 2013 c5,c6 refusion THYROIDECTOMY TOTAL/COMPLETE partial right - non malignant TONSILLECTOMY PRIMARY/SECONDARY <AGE 12 Tonsillectomy ALLERGIES Imitrex [Sumatriptan] MEDICATIONS hydroCHLOROthiazide (HYDRODIURIL, ESIDRIX) 12.5 mg tablet Take 12.5 mg by mouth once daily. metoprolol tartrate, short acting, (LOPRESSOR) 12.5 mg tab Take 12.5 mg by mouth every 12 hours. lisinopril (ZESTRIL, PRINIVIL) 20 mg tablet Take 1 tablet by mouth twice daily. leflunomide (ARAVA) 10 mg tablet Take 2 tablets by mouth once daily. atorvastatin (LIPITOR) 10 mg tablet Take 2 tablets by mouth once daily. (Patient taking differently: Take 40 mg by mouth once daily. ) eletriptan (RELPAX) 20 mg tablet Take 1 at start of headache, may repeat in 2 hours if necessary (total of 3 tablets) cyclobenzaprine (FLEXERIL) 10 mg tablet Take 1 tablet by mouth three times daily. (Patient taking differently: Take 10 mg by mouth twice daily. ) levothyroxine (SYNTHROID) 88 mcg tablet Take 1 tablet by mouth daily before breakfast. Cholecalciferol, Vitamin D3, (VITAMIN D) 1,000 unit tab Take 1,000 Units by mouth once daily. sulfaSALAzine (AZULFIDINE) 500 mg tablet Take 1 tablet by mouth twice daily. (Patient taking differently: Take 1,000 mg by mouth twice daily. ) aripiprazole (ABILIFY) 2 mg tablet Take 1 tablet by mouth twice daily. cevimeline (EVOXAC) 30 mg ORAL capsule Take 60 mg by mouth twice daily. citalopram hydrobromide(CELEXA 20 MG TAB) Take 1.5 tablet daily. sodium fluoride/pot nitrate(PREVIDENT 5000 SENSITIVE 1.1 %-5 % DENTAL PASTE) diclofenac, EC, (VOLTAREN) 50 mg EC tablet Take 50 mg by mouth once daily. (Patient not taking: Reported on 04/06/2022 ) CPAP Bilevel 25/20 cmH2O, Resmed F20 FFM (small), Ti max 2.0, Ti min 0.3, Trigger medium, Cycle medium, HUMIDITY, LIFETIME SUPPLIES. topiramate (TOPAMAX) 50 mg tablet Take 1 tablet by mouth twice daily. melatonin 3 mg tablet Take 1 tablet at approximately 7 PM. awefk-rs-5-bij-vxt-brvectv-ast (KRILL OIL) 1,476-659-65-50 mg cap Take 1,000 mg by mouth once daily. aspirin, enteric coated (ASPIRIN, ENTERIC COATED) 81 mg EC tablet Take 81 mg by mouth once daily. FAMILY HISTORY Problem Relation Age of Onset Diabetes Mother Hypertension Mother Psychiatry Mother bipolar Breast Cancer Mother Cancer Mother breast, uterus/bone Lipids Mother Diabetes Father Hypertension Father Osteoporosis Father Colon Cancer Father Stroke Father Lipids Father Headache Father Hypertension Brother Lipids Brother Headache Brother Diabetes Brother Social History Tobacco Use Smoking status: Former Packs/day: 0.50 Years: 20.00 Pack years: 10.00 Types: Cigarettes Quit date: 06/14/2003 Years since quittin.2 Smokeless tobacco: Never Substance Use Topics Alcohol use: Yes Comment: Occaisionally Drug use: No PHYSICAL EXAM BP 128/76 Pulse 92 Resp 16 Wt 121.6 kg (268 lb) LMP 02/13/2019 (Approximate) BMI 41.97 kg/m General Appearance: well appearing, in no acute distress, alert Pysch: mood and affect broad and appropriate Skin: Skin color, texture, turgor normal for age; Eyes: conjunctiva pink and moist, no icterus, sclera white, non-injected Neck: Thyroid normal size and symmetric without palpable nodules, No adenopathy Lymph nodes: No cervical lymphadenopathy and No supraclavicular lymphadenopathy Lungs: Lungs clear to auscultation. No wheezing, rhonchi, rales. Heart: RRR without murmur, gallop, or rubs. No ectopy Health maintenance reviewed with patient: HEPATITIS B(1 of 3 - 3-dose series) Never done PNEUMOCOCCAL(3 - PCV) due on 07/12/2015 MAMMOGRAM due on 08/02/2021 DEPRESSION ASSESSMENT Never done ANNUAL PCP TEAM CHRONIC DISEASE VISIT due on 03/09/2023 PAP TESTING due on 06/15/2024 HPV TESTING due on 06/15/2024 DIABETES SCREEN due on 08/17/2025 DTAP,TDAP,TD(2 - Tdap) due on 06/16/2027 LIPID SCREEN due on 08/17/2027 COLORECTAL CANCER SCREENING due on 04/17/2031 INFLUENZA Completed HEPATITIS C SCREENING Completed HIV SCREENING Completed SHINGRIX VACCINE Completed COVID-19 VACCINE Completed DATA REVIEWED: Most recent labs ASSESSMENT/PLAN: 1. Essential hypertension - ICD9: 401.9, ICD10: I10 (primary diagnosis) - good control - Continue current medication(s) - Recommended regular aerobic exercise. - Recommend home blood pressure monitoring, to bring results in on next visit - Goal of BP <130/80 - patient has BP monitor at home and understands with weight loss surgery her blood pressure will most likely decrease naturally and less medications will be required. Patient to monitor and follow closely, will schedule appointment as able to come in post surgery 2. Prediabetes - ICD9: 790.29, ICD10: R73.03 - controlled - patient to stop ozempic post surgery as ordered by endocrinology 3. Mixed hyperlipidemia - ICD9: 272.2, ICD10: E78.2 - good control - Continue current medication. - Encouraged following a low fat, low cholesterol diet. - Discussed the benefits of regular aerobic exercise and weight loss. - ATORVASTATIN 10 MG TABLET 4. Acquired hypothyroidism - ICD9: 244.9, ICD10: E03.9 - Instructed patient on importance of taking on an empty stomach either first thing in the morning or at bedtime. - TSH normal and patient asymptomatic - continue current dosing 5. Bipolar I disorder, most recent episode depressed (HCC) - ICD9: 296.50, ICD10: F31.30 - controlled - continue with psychiatry and medications as prescribed by them Prescription instructions reviewed with patient as applicable. Potential red flag symptoms discussed with the patient. Reviewed appropriate action plan to take if red flag symptoms occur. Patient agreeable to treatment plan. Micki Underwood APRN.CNP documented in this encounter [facility] 04-09-2022 Miscellaneous Notes Orders for mask fitting and request [facility] notes faxed to Sophie. DWAYNE Verdugo documented in this encounter [facility] 04-06-2022 History of Present illness Narrative ESTABLISHED PATIENT VISIT CHIEF COMPLAINT: Follow Up HISTORY OF PRESENT ILLNESS: Santos Allan is a 56 year old female, with a PMH significant for and per last office visit note of 11/17/21: 1. Insomnia, unspecified type - ICD9: 780.52, ICD10: G47.00 (primary diagnosis) 2. Obstructive sleep apnea syndrome - ICD9: 327.23, ICD10: G47.33 Patient with both sleep onset insomnia and maintenance insomnia that I suspect are multifactorial. With regards to difficulties maintaining sleep and poor quality of sleep, suspect due to untreated severe REMIGIO. On review of prior records, I also suspect that her REMIGIO was never adequately treated with auto PAP with pt having persistent elevation in AHI on those downloads and 95% pressures >18 cmH2O. Discussed with patient and feel an in lab titration would be appropriate. Furthermore, as pt had difficulties tolerating CPAP, perhaps would better tolerate bilevel. Thus, will have pt return to the sleep lab for a split night titration to confirm dx and then be titrated on bilevel PAP starting at 10/6 cmH2O. Pt agrees with plan. We did discuss other treatment options including possible mandibular advancement surgery but pt would prefer to avoid surgical treatment. She is not a candidate for inspire due to elevated BMI. Per my documentation of 12/17/21: Patient's titration did not normalize the AHI (remained in moderate range on pressures as high as 20/14 cmH2O. Would like patient to return to the lab for a repeat titration starting at this same pressure. Would consider Auto-bilevel but max pressure option by not be optimal and thus, recommendation for titration. If pt agrees, will place order. PAP titration on 01/14/22 recommended bilevel PAP at 25/20 cmH2O. Note howeer that while on this setting the AHI remained in the mild range. Still improved from AHI as high as 69.8 while on lower PAP setting of 18/14 cmH2O. PAP data download from 02/24/22 to 03/25/22 showed use of PA 29/30 days with avg use of 5 hours and 25 minutes. Confirmed PAP at 25/20 cmH2O. 95% leak is 36.8 LPM. AHI is 6.7. Pt reports going much better with bilevel PAP than CPAP. States since on melatonin falling asleep quickly. More of sound sleep through the night and rarely wakes during the night. Headaches have also decreased in frequency to point that patient is no longer getting migraines. She is aware of mask leaks. Mask leaks at top of nasal bridge and chin and appears to large in those areas. REVIEW OF SYSTEMS GENERAL:No weight loss, malaise or fevers. HEENT:Negative for frequent or significant headaches, No changes in hearing or vision, no nose bleeds or other nasal problems NECK:Negative for lumps, goiter, pain and significant neck swelling RESPIRATORY: Negative for cough, wheezing or shortness of breath. CARDIOVASCULAR: Negative for chest pain, leg swelling or palpitations. GASTROINTESTINAL: Negative for abdominal discomfort, blood in stools or black stools or change in bowel habits GENITOURINARY: No history of dysuria, frequency or incontinence MUSCULOSKELETAL: Negative for joint pain or swelling, back pain or muscle pain. NEUROLOGIC:Negative for focal numbness or weakness, headaches and dizziness or syncope, vision changes, speech/languag changes - EXCEPT that as per HPI above. LAB/IMAGING: Those performed since patient's last visit have been reviewed. WBC (k/uL) Date Value 03/02/2022 6.41 RBC (m/uL) Date Value 03/02/2022 4.28 Hemoglobin (g/dL) Date Value 03/02/2022 12.7 Hematocrit (%) Date Value 03/02/2022 42.1 MCV (fL) Date Value 03/02/2022 98.4 MCH (pg) Date Value 03/02/2022 29.7 MCHC (g/dL) Date Value 03/02/2022 30.2 (L) RDW-CV (%) Date Value 03/02/2022 13.0 Platelet Count (k/uL) Date Value 03/02/2022 289 MPV (fL) Date Value 03/02/2022 10.2 Glucose (mg/dL) Date Value 09/11/2021 88 BUN (mg/dL) Date Value 09/11/2021 10 Creatinine (mg/dL) Date Value 09/11/2021 0.62 Sodium (mmol/L) Date Value 09/11/2021 138 Potassium (mmol/L) Date Value 09/11/2021 3.6 (L) Chloride (mmol/L) Date Value 09/11/2021 104 CO2 (mmol/L) Date Value 09/11/2021 21 (L) Protein, Total (g/dL) Date Value 04/27/2017 6.9 Albumin (g/dL) Date Value 04/27/2017 3.9 Calcium (mg/dL) Date Value 09/11/2021 9.6 Alkaline Phosphatase (U/L) Date Value 04/27/2017 55 Bilirubin, Total (mg/dL) Date Value 04/27/2017 0.3 AST (U/L) Date Value 04/27/2017 27 ALT (U/L) Date Value 04/27/2017 21 Hep C Antibody IA (no units) Date Value 08/16/2020 Negative MEDICATIONS: hydroCHLOROthiazide (HYDRODIURIL, ESIDRIX) 12.5 mg tablet Take 12.5 mg by mouth once daily. metoprolol tartrate, short acting, (LOPRESSOR) 12.5 mg tab Take 12.5 mg by mouth every 12 hours. lisinopril (ZESTRIL, PRINIVIL) 20 mg tablet Take 1 tablet by mouth twice daily. CPAP Bilevel 25/20 cmH2O, Resmed F20 FFM (small), Ti max 2.0, Ti min 0.3, Trigger medium, Cycle medium, HUMIDITY, LIFETIME SUPPLIES. topiramate (TOPAMAX) 50 mg tablet Take 1 tablet by mouth twice daily. melatonin 3 mg tablet Take 1 tablet at approximately 7 PM. leflunomide (ARAVA) 10 mg tablet Take 2 tablets by mouth once daily. atorvastatin (LIPITOR) 10 mg tablet Take 2 tablets by mouth once daily. cyclobenzaprine (FLEXERIL) 10 mg tablet Take 1 tablet by mouth three times daily. smilm-im-3-zol-vgz-ugdbaam-ast (KRILL OIL) 1,458-940-79-50 mg cap Take 1,000 mg by mouth once daily. levothyroxine (SYNTHROID) 88 mcg tablet Take 1 tablet by mouth daily before breakfast. aspirin, enteric coated (ASPIRIN, ENTERIC COATED) 81 mg EC tablet Take 81 mg by mouth once daily. Cholecalciferol, Vitamin D3, (VITAMIN D) 1,000 unit tab Take 1,000 Units by mouth once daily. sulfaSALAzine (AZULFIDINE) 500 mg tablet Take 1 tablet by mouth twice daily. aripiprazole (ABILIFY) 2 mg tablet Take 1 tablet by mouth twice daily. cevimeline (EVOXAC) 30 mg ORAL capsule Take 60 mg by mouth twice daily. citalopram hydrobromide(CELEXA 20 MG TAB) Take 1.5 tablet daily. sodium fluoride/pot nitrate(PREVIDENT 5000 SENSITIVE 1.1 %-5 % DENTAL PASTE) diclofenac, EC, (VOLTAREN) 50 mg EC tablet Take 50 mg by mouth once daily. eletriptan (RELPAX) 20 mg tablet Take 1 at start of headache, may repeat in 2 hours if necessary (total of 3 tablets) HISTORIES PAST MEDICAL HISTORY Diagnosis Date Acid reflux Anemia Anxiety disorder in conditions classified elsewhere Arthritis 03/03/2016 Bipolar I disorder, most recent episode (or current) unspecified Hypothyroidism Myalgia and myositis, unspecified REMIGIO (obstructive sleep apnea) DME - [employer] for AutoPAP Other and unspecified hyperlipidemia Right ankle sprain 05/31/2017 Sjogren's disease (HCC) Type II or unspecified type diabetes mellitus without mention of complication, uncontrolled since 2002 Unspecified essential hypertension Unspecified vitamin D deficiency 03/10/2007 FAMILY HISTORY Problem Relation Age of Onset Diabetes Mother Hypertension Mother Psychiatry Mother bipolar Breast Cancer Mother Cancer Mother breast, uterus/bone Lipids Mother Diabetes Father Hypertension Father Osteoporosis Father Colon Cancer Father Stroke Father Lipids Father Headache Father Hypertension Brother Lipids Brother Headache Brother Diabetes Brother SOCIAL HISTORY Social History Tobacco Use Smoking status: Former Smoker Packs/day: 0.50 Years: 20.00 Pack years: 10.00 Types: Cigarettes Quit date: 06/14/2003 Years since quittin.8 Smokeless tobacco: Never Used Substance Use Topics Alcohol use: Yes Comment: Occaisionally Drug use: No PHYSICAL EXAMINATION LMP 02/13/2019 (Approximate) GENERAL EXAM: General appearance: NAD, pleasant. HEENT: NC/AT, nasal congestion absent, no oral lesions, membranes moist. Lungs: CTA bilaterally. CV: RRR nl S1, S2. NEUROLOGICAL EXAM: General: Awake, alert, oriented x3 (person,place,time), speech fluent, no dysarthria; comprehension, naming, repetition intact. CN: PERRL,EOMI and without nystagmus, VFF to confrontation, facial sensation and strength are normal and symmetric, hearing is intact to finger rub bilaterally, palate and tongue movements are intact and symmetric. SCM and trapezius strength normal. Motor: Normal tone, bulk and strength (5/5) bilaterally (throughout extremities x4). Coordination: FNF, SEBASTIAN intact. No tremors. Sensation: LT intact throughout. No evidence of neglect. Gait: Stable Assessment and Plan: ASSESSMENT/PLAN: 1. Obstructive sleep apnea (adult) (pediatric) - ICD9: 327.23, ICD10: G47.33 (primary diagnosis) 2. Migraine without status migrainosus, not intractable, unspecified migraine type - ICD9: 346.90, ICD10: G43.909 3. Insomnia, unspecified type - ICD9: 780.52, ICD10: G47.00 4. Class 3 severe obesity with body mass index (BMI) of 40.0 to 44.9 in adult, unspecified obesity type, unspecified whether serious comorbidity present (HCC) - ICD9: 278.01, V85.41, ICD10: E66.01, Z68.41 Patient doing well on PAP therapy, with near normalization of AHI with its use. Subjectively and objectively compliant with device (see download data above). Primary issue at this time is mask leak as noted above. Will provide Rx for Resmed F20 mask but will et for her version to see if fits better. Otherwise pt happy to continue with PAP use as it has resulted in elimination of insomnia and headaches. Encouraged weight loss. Advised patient to clean and replace equipment regularly. Advised pt to not drive or operate heavy machinery when sleepy. Pt will follow up in ~6 months or sooner prn. Alexander Quinteros MD I spent a total of 25 minutes on the date of the service which included preparing to see the patient, [id number] patient care, completing clinical documentation, obtaining and/or reviewing separately obtained history, performing a medically appropriate examination, counseling and educating the patient/family/caregiver, ordering medications, tests, or procedures, independently interpreting results (not separately reported) and communicating results to the patient/family/caregiver. documented in this encounter [facility] 03-11-2022 Miscellaneous Notes TC to patient to verify DME company for PAP compliance. Pt uses [employer]. Information updated in pt chart. DWAYNE Verdugo documented in this encounter [facility] 02-17-2022 Miscellaneous Notes Received BIPAP and supplies order form from [facility]. The form requires the provider's signature. Nurse will forward form to the provider for signature. documented in this encounter [facility] 02-06-2022 Miscellaneous Notes Information faxed. Janette Collazo LPN Will fax information to [employer]. Spoke to Blanca Lizama at [facility] and aware information being faxed to [phone] Attn: Allegra Emmanuel As requested. Janette Collazo LPN Allegra from [facility] called regarding paperwork not received. Ie: Clinicals, sleep study, orders, demographics, etc. Was this faxed to [phone]? Please fax again. documented in this encounter [facility] 02-06-2022 Miscellaneous Notes Please see telephone encounter dated 02/04/2022. Janette Collazo LPN documented in this encounter [facility] 01-26-2022 Miscellaneous Notes New order for PAP settings faxed to [facility] at #[phone]. DWAYNE Verdugo documented in this encounter [facility] 01-23-2022 Miscellaneous Notes Emailed PSG Interpretation report with PAP Titration from [facility] to Dr Quinteros to address. documented in this encounter [facility] 01-09-2022 Miscellaneous Notes Patient has been identified by name and date of : Yes Patient phones for refill(s): Pending Prescriptions Disp Refills TOPIRAMATE 50 MG TABLET 180 tablet 3 Sig: Take 1 tablet by mouth twice daily. SHANAE: No Date of last office visit in primary care: 11/03/21 Last 2 Encounter Wt Readings: Date: Wt: 11/17/2021 112.9 kg (249 lb) 11/03/2021 113.9 kg (251 lb) Previous labs/tests for medication: Not applicable Please advise. Thank you. Maria C Garcia LPN documented in this encounter [facility] 12-26-2021 Miscellaneous Notes This staff will fax the requested documents to [employer] to the fax number provided [employer]) calls with patient also on the line stating that they are helping the patient to try to get her sleep study pre cert approved. [employer] is asking for office to send some information to them via fax. Patient gives verbal permission for this. [employer] asking for clinical notes documenting need for additional study and copy of study that was completed in November. Fax # to send to is . They ask that every page of fax contain patient name and along with Case # [id number]. documented in this encounter [facility] 12-17-2021 History of Present illness Narrative Patient's titration did not normalize the AHI (remained in moderate range on pressures as high as 20/14 cmH2O. Would like patient to return to the lab for a repeat titration starting at this same pressure. Would consider Auto-bilevel but max pressure option by not be optimal and thus, recommendation for titration. If pt agrees, will place order. Alexander Quinteros MD documented in this encounter [facility] 11-18-2021 History of Present illness Narrative Pt and family verbalized understanding of recovery instructions, pt verbalized a readiness to be discharged home. Pt discharged home via wheelchair accompanied by RN/volunteer. Pt has had all their belongings returned to them at discharge Pt received from OR via cart, spont. Resp. With DATABASE DEVELOPER in attendance. Placed on monitor. Monitor alarms on in PACU Belongings with patient. documented in this encounter [employer] Phone: 11-18-2021 Hospital Discharge instructions Saman Moctezuma MD - 11/18/2021 Images from the original note were not included. [facility] - Surgery [facility] Surgery DISCHARGE INSTRUCTIONS FOR DR. MOCTEZUMA Thank you very much for allowing me to participate in your care, it is truly a privilege. Below please see discharge orders that will help you during your recovery. Please do not hesitate to call the office during the day at [phone] for any questions. After hours, the same number will allow you to reach the on-call surgeon. Please remove the Steri-Strips 5 days after surgery. Please remove the Steri-Strips as instructed 5 days after your date of surgery, remove them on Wednesday, November 23, 2021. This includes any clear bandages and gauze placed in the navel, if applicable. If you have been provided with an abdominal binder, this is for your comfort. Please take this off in order to shower and use it as needed for your comfort. There is no designated time frame with which you should wear the binder. Again, it is only for your comfort and symptom relief. Please shower the day after surgery. Soap and water is adequate. Keep the incisions clean and dry. No lotions or ointments until you are seen in the office. Surgery can hurt! Please make every effort to take the pain medicine as instructed to help reduce your discomfort. I usually recommend that you take pain medicine when you wake up in the morning and before you go to sleep. Schedule the rest of the day in order to not interfere with medication dosages as prescribed. If you feel that the medicine is not working, please call the office. Should you have nausea after surgery (the most common complaint after surgery) you will be provided with a prescription for Zofran. Please utilize this should you have any postoperative nausea or vomiting. If you feel that the medicine is not working, please call the office. Please use Miralax (available over the counter) until you have a bowel movement. Constipation is routine after surgery and adding the Miralax will help prevent constipation. For any emergencies, please dial 911. Thank you again for allowing me to participate in your care, and get well soon! Best regards, Saman Moctezuma M.D., F.A.C.S. documented in this encounter [facility] Phone: 11-14-2021 Hospital Discharge instructions Juany Martinez RN - 11/14/2021 Zack: Enter through Door number 2 Registration department is located here Patient will be escorted to [facility] [place] does not open before 6am Shower with hibiclens Please bring your [facility] [address] Surgical Information folder on the day of surgery. Please fredrick the last dose taken (date and time ) on your Daily Medications List provided in your After Visit Summary. Please bring a photo ID and insurance information Do NOT take the following medications on the morning of surgery sulfasalazine, lisinopril, vitamins TAKE the following medications the morning of your surgery levothyroxine, flexeril. Celexa, Stop diclofenac 24 hours prior You may take your prescription pain medications. You may take Tylenol (Acetaminophen) if needed for pain. No Motrin, Ibuprofen, or Advil 24 hours prior to surgery, or longer if instructed by your surgeon. No Aleve or Naprosyn 3 days prior to surgery, or longer if instructed by your surgeon. If you are on BLOOD THINNERS or ASPIRIN, stop aspirin 3 days prior Additional instructions stop plaquenil now You will receive a reminder call the day before surgery with your Same Day Surgery arrival time. If you have specific questions, please call your surgeon. documented in this encounter [facility] Work Phone: 10-13-2019 History of Present illness Narrative PT AND FAMILY VERBALIZED UNDERSTANDING OF HOMEGOING INSTRUCTIONS, PT VERBALIZED A READINESS TO BE DISCHARGED HOME. PT DISCHARGED HOME VIA WHEELCHAIR ACCOMPANIED BY VOLUNTEER. PT HAS HAD ALL THEIR BELONGINGS RETURNED TO THEM AT DISCHARGE PATIENT RECEIVED FROM OR VIA CART FAST TRACK TO PHASE II . ALERT SPONT RESP. WITH DATABASE DEVELOPER IN ATTENDANCE documented in this encounter [facility] Work Phone: documented as of this encounter (statuses as of 12/16/2021) [facility]11-09-2015 History of Past illness Narrative* Problem Noted Date Resolved Date Hyperlipidemia 07/22/2015 08/11/2016 Gastroparesis 01/18/2015 03/02/2016 Gastroparesis 01/02/2015 01/02/2015 Diabetes mellitus type 2, controlled, without co mplications 12/27/2014 01/20/2016 DIABETES MELLITUS ADULT ONSET 01/18/2007 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, [place], [place] HYPERTENSION BENIGN 01/18/2007 08/11/2016 HYPERLIPIDEMIA 01/18/2007 08/11/2016 Hypothyroidism 01/18/2007 03/02/2016 EDEMA EXTREMITIES 01/18/2007 08/11/2016 Anemia 02/22/2019 Last Assessment & Plan: Currently stable documented as of this encounter (statuses as of 12/17/2021) [facility] History of Past illness Narrative* Problem Noted Date Resolved Date Hyperlipidemia 07/22/2015 08/11/2016 Gastroparesis 01/18/2015 03/02/2016 Gastroparesis 01/02/2015 01/02/2015 Diabetes mellitus type 2, controlled, without co mplications 12/27/2014 01/20/2016 DIABETES MELLITUS ADULT ONSET 01/18/2007 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, [place], [place] HYPERTENSION BENIGN 01/18/2007 08/11/2016 HYPERLIPIDEMIA 01/18/2007 08/11/2016 Hypothyroidism 01/18/2007 03/02/2016 EDEMA EXTREMITIES 01/18/2007 08/11/2016 Anemia 02/22/2019 Last Assessment & Plan: Currently stable documented as of this encounter (statuses as of 12/30/2021) [facility] History of Past illness Narrative* Problem Noted Date Resolved Date Hyperlipidemia 07/22/2015 08/11/2016 Gastroparesis 01/18/2015 03/02/2016 Gastroparesis 01/02/2015 01/02/2015 Diabetes mellitus type 2, controlled, without co mplications 12/27/2014 01/20/2016 DIABETES MELLITUS ADULT ONSET 01/18/2007 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, [place] HYPERTENSION BENIGN 01/18/2007 08/11/2016 HYPERLIPIDEMIA 01/18/2007 08/11/2016 Hypothyroidism 01/18/2007 03/02/2016 EDEMA EXTREMITIES 01/18/2007 08/11/2016 Anemia 02/22/2019 Last Assessment & Plan: Currently stable documented as of this encounter (statuses as of 01/12/2022) [facility] History of Past illness Narrative* Problem Noted Date Resolved Date Hyperlipidemia 07/22/2015 08/11/2016 Gastroparesis 01/18/2015 03/02/2016 Gastroparesis 01/02/2015 01/02/2015 Diabetes mellitus type 2, controlled, without co mplications 12/27/2014 01/20/2016 DIABETES MELLITUS ADULT ONSET 01/18/2007 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, [place] HYPERTENSION BENIGN 01/18/2007 08/11/2016 HYPERLIPIDEMIA 01/18/2007 08/11/2016 Hypothyroidism 01/18/2007 03/02/2016 EDEMA EXTREMITIES 01/18/2007 08/11/2016 Anemia 02/22/2019 Last Assessment & Plan: Currently stable documented as of this encounter (statuses as of 01/26/2022) [facility] History of Past illness Narrative* Problem Noted Date Resolved Date Hyperlipidemia 07/22/2015 08/11/2016 Gastroparesis 01/18/2015 03/02/2016 Gastroparesis 01/02/2015 01/02/2015 Diabetes mellitus type 2, controlled, without co mplications 12/27/2014 01/20/2016 DIABETES MELLITUS ADULT ONSET 01/18/2007 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, [place] HYPERTENSION BENIGN 01/18/2007 08/11/2016 HYPERLIPIDEMIA 01/18/2007 08/11/2016 Hypothyroidism 01/18/2007 03/02/2016 EDEMA EXTREMITIES 01/18/2007 08/11/2016 Anemia 02/22/2019 Last Assessment & Plan: Currently stable documented as of this encounter (statuses as of 01/26/2022) [facility] History of Past illness Narrative* Problem Noted Date Resolved Date Hyperlipidemia 07/22/2015 08/11/2016 Gastroparesis 01/18/2015 03/02/2016 Gastroparesis 01/02/2015 01/02/2015 Diabetes mellitus type 2, controlled, without co mplications 12/27/2014 01/20/2016 DIABETES MELLITUS ADULT ONSET 01/18/2007 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, [place] HYPERTENSION BENIGN 01/18/2007 08/11/2016 HYPERLIPIDEMIA 01/18/2007 08/11/2016 Hypothyroidism 01/18/2007 03/02/2016 EDEMA EXTREMITIES 01/18/2007 08/11/2016 Anemia 02/22/2019 Last Assessment & Plan: Currently stable documented as of this encounter (statuses as of 02/06/2022) [facility] History of Past illness Narrative* Problem Noted Date Resolved Date Hyperlipidemia 07/22/2015 08/11/2016 Gastroparesis 01/18/2015 03/02/2016 Gastroparesis 01/02/2015 01/02/2015 Diabetes mellitus type 2, controlled, without co mplications 12/27/2014 01/20/2016 DIABETES MELLITUS ADULT ONSET 01/18/2007 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, [place] HYPERTENSION BENIGN 01/18/2007 08/11/2016 HYPERLIPIDEMIA 01/18/2007 08/11/2016 Hypothyroidism 01/18/2007 03/02/2016 EDEMA EXTREMITIES 01/18/2007 08/11/2016 Anemia 02/22/2019 Last Assessment & Plan: Currently stable documented as of this encounter (statuses as of 02/06/2022) [facility] History of Past illness Narrative* Problem Noted Date Resolved Date Hyperlipidemia 07/22/2015 08/11/2016 Gastroparesis 01/18/2015 03/02/2016 Gastroparesis 01/02/2015 01/02/2015 Diabetes mellitus type 2, controlled, without co mplications 12/27/2014 01/20/2016 DIABETES MELLITUS ADULT ONSET 01/18/2007 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, [place] HYPERTENSION BENIGN 01/18/2007 08/11/2016 HYPERLIPIDEMIA 01/18/2007 08/11/2016 Hypothyroidism 01/18/2007 03/02/2016 EDEMA EXTREMITIES 01/18/2007 08/11/2016 Anemia 02/22/2019 Last Assessment & Plan: Currently stable documented as of this encounter (statuses as of 02/17/2022) [facility] History of Past illness Narrative* Problem Noted Date Resolved Date Hyperlipidemia 07/22/2015 08/11/2016 Gastroparesis 01/18/2015 03/02/2016 Gastroparesis 01/02/2015 01/02/2015 Diabetes mellitus type 2, controlled, without co mplications 12/27/2014 01/20/2016 DIABETES MELLITUS ADULT ONSET 01/18/2007 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, [place] HYPERTENSION BENIGN 01/18/2007 08/11/2016 HYPERLIPIDEMIA 01/18/2007 08/11/2016 Hypothyroidism 01/18/2007 03/02/2016 EDEMA EXTREMITIES 01/18/2007 08/11/2016 Anemia 02/22/2019 Last Assessment & Plan: Currently stable documented as of this encounter (statuses as of 02/19/2022) [facility] History of Past illness Narrative* Problem Noted Date Resolved Date Hyperlipidemia 07/22/2015 08/11/2016 Gastroparesis 01/18/2015 03/02/2016 Gastroparesis 01/02/2015 01/02/2015 Diabetes mellitus type 2, controlled, without co mplications 12/27/2014 01/20/2016 DIABETES MELLITUS ADULT ONSET 01/18/2007 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, [place] HYPERTENSION BENIGN 01/18/2007 08/11/2016 HYPERLIPIDEMIA 01/18/2007 08/11/2016 Hypothyroidism 01/18/2007 03/02/2016 EDEMA EXTREMITIES 01/18/2007 08/11/2016 Anemia 02/22/2019 Last Assessment & Plan: Currently stable documented as of this encounter (statuses as of 02/27/2022) [facility] History of Past illness Narrative* Problem Noted Date Resolved Date Hyperlipidemia 07/22/2015 08/11/2016 Gastroparesis 01/18/2015 03/02/2016 Gastroparesis 01/02/2015 01/02/2015 Diabetes mellitus type 2, controlled, without co mplications 12/27/2014 01/20/2016 DIABETES MELLITUS ADULT ONSET 01/18/2007 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, [place] HYPERTENSION BENIGN 01/18/2007 08/11/2016 HYPERLIPIDEMIA 01/18/2007 08/11/2016 Hypothyroidism 01/18/2007 03/02/2016 EDEMA EXTREMITIES 01/18/2007 08/11/2016 Anemia 02/22/2019 Last Assessment & Plan: Currently stable documented as of this encounter (statuses as of 03/11/2022) [facility] History of Past illness Narrative* Problem Noted Date Resolved Date Hyperlipidemia 07/22/2015 08/11/2016 Gastroparesis 01/18/2015 03/02/2016 Gastroparesis 01/02/2015 01/02/2015 Diabetes mellitus type 2, controlled, without co mplications 12/27/2014 01/20/2016 DIABETES MELLITUS ADULT ONSET 01/18/2007 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, [place] HYPERTENSION BENIGN 01/18/2007 08/11/2016 HYPERLIPIDEMIA 01/18/2007 08/11/2016 Hypothyroidism 01/18/2007 03/02/2016 EDEMA EXTREMITIES 01/18/2007 08/11/2016 Anemia 02/22/2019 Last Assessment & Plan: Currently stable documented as of this encounter (statuses as of 04/06/2022) [facility] History of Past illness Narrative* Problem Noted Date Resolved Date Hyperlipidemia 07/22/2015 08/11/2016 Gastroparesis 01/18/2015 03/02/2016 Gastroparesis 01/02/2015 01/02/2015 Diabetes mellitus type 2, controlled, without co mplications 12/27/2014 01/20/2016 DIABETES MELLITUS ADULT ONSET 01/18/2007 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, [place] HYPERTENSION BENIGN 01/18/2007 08/11/2016 HYPERLIPIDEMIA 01/18/2007 08/11/2016 Hypothyroidism 01/18/2007 03/02/2016 EDEMA EXTREMITIES 01/18/2007 08/11/2016 Anemia 02/22/2019 Last Assessment & Plan: Currently stable documented as of this encounter (statuses as of 04/09/2022) [facility] History of Past illness Narrative* Problem Noted Date Resolved Date Hyperlipidemia 07/22/2015 08/11/2016 Gastroparesis 01/18/2015 03/02/2016 Gastroparesis 01/02/2015 01/02/2015 Diabetes mellitus type 2, controlled, without co mplications 12/27/2014 01/20/2016 DIABETES MELLITUS ADULT ONSET 01/18/2007 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, [place] HYPERTENSION BENIGN 01/18/2007 08/11/2016 HYPERLIPIDEMIA 01/18/2007 08/11/2016 Hypothyroidism 01/18/2007 03/02/2016 EDEMA EXTREMITIES 01/18/2007 08/11/2016 Anemia 02/22/2019 Last Assessment & Plan: Currently stable documented as of this encounter (statuses as of 08/14/2022) [facility] History of Past illness Narrative* Problem Noted Date Resolved Date Hyperlipidemia 07/22/2015 08/11/2016 Gastroparesis 01/18/2015 03/02/2016 Gastroparesis 01/02/2015 01/02/2015 Diabetes mellitus type 2, controlled, without co mplications 12/27/2014 01/20/2016 DIABETES MELLITUS ADULT ONSET 01/18/2007 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, [place] HYPERTENSION BENIGN 01/18/2007 08/11/2016 HYPERLIPIDEMIA 01/18/2007 08/11/2016 Hypothyroidism 01/18/2007 03/02/2016 EDEMA EXTREMITIES 01/18/2007 08/11/2016 Anemia 02/22/2019 Last Assessment & Plan: Currently stable documented as of this encounter (statuses as of 08/17/2022) [facility] History of Past illness Narrative* Problem Noted Date Resolved Date Hyperlipidemia 07/22/2015 08/11/2016 Gastroparesis 01/18/2015 03/02/2016 Gastroparesis 01/02/2015 01/02/2015 Diabetes mellitus type 2, controlled, without co mplications 12/27/2014 01/20/2016 DIABETES MELLITUS ADULT ONSET 01/18/2007 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, [place] HYPERTENSION BENIGN 01/18/2007 08/11/2016 HYPERLIPIDEMIA 01/18/2007 08/11/2016 Hypothyroidism 01/18/2007 03/02/2016 EDEMA EXTREMITIES 01/18/2007 08/11/2016 Anemia 02/22/2019 Last Assessment & Plan: Currently stable documented as of this encounter (statuses as of 08/28/2022) [facility] History of Past illness Narrative* Problem Noted Date Resolved Date Hyperlipidemia 07/22/2015 08/11/2016 Gastroparesis 01/18/2015 03/02/2016 Gastroparesis 01/02/2015 01/02/2015 Diabetes mellitus type 2, controlled, without co mplications 12/27/2014 01/20/2016 DIABETES MELLITUS ADULT ONSET 01/18/2007 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, [place] HYPERTENSION BENIGN 01/18/2007 08/11/2016 HYPERLIPIDEMIA 01/18/2007 08/11/2016 Hypothyroidism 01/18/2007 03/02/2016 EDEMA EXTREMITIES 01/18/2007 08/11/2016 Anemia 02/22/2019 Last Assessment & Plan: Currently stable documented as of this encounter (statuses as of 09/21/2022) [facility] History of Past illness Narrative* Problem Noted Date Resolved Date Hyperlipidemia 07/22/2015 08/11/2016 Gastroparesis 01/18/2015 03/02/2016 Gastroparesis 01/02/2015 01/02/2015 Diabetes mellitus type 2, controlled, without co mplications 12/27/2014 01/20/2016 DIABETES MELLITUS ADULT ONSET 01/18/2007 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, [place] HYPERTENSION BENIGN 01/18/2007 08/11/2016 HYPERLIPIDEMIA 01/18/2007 08/11/2016 Hypothyroidism 01/18/2007 03/02/2016 EDEMA EXTREMITIES 01/18/2007 08/11/2016 Anemia 02/22/2019 Last Assessment & Plan: Currently stable documented as of this encounter (statuses as of 10/08/2022) [facility] History of Past illness Narrative* Problem Noted Date Resolved Date Hyperlipidemia 07/22/2015 08/11/2016 Gastroparesis 01/18/2015 03/02/2016 Gastroparesis 01/02/2015 01/02/2015 Diabetes mellitus type 2, controlled, without co mplications 12/27/2014 01/20/2016 DIABETES MELLITUS ADULT ONSET 01/18/2007 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, [place] HYPERTENSION BENIGN 01/18/2007 08/11/2016 HYPERLIPIDEMIA 01/18/2007 08/11/2016 Hypothyroidism 01/18/2007 03/02/2016 EDEMA EXTREMITIES 01/18/2007 08/11/2016 Anemia 02/22/2019 Last Assessment & Plan: Currently stable documented as of this encounter (statuses as of 11/10/2022) [facility] History of Past illness Narrative* Problem Noted Date Resolved Date Hyperlipidemia 07/22/2015 08/11/2016 Gastroparesis 01/18/2015 03/02/2016 Gastroparesis 01/02/2015 01/02/2015 Diabetes mellitus type 2, controlled, without co mplications 12/27/2014 01/20/2016 DIABETES MELLITUS ADULT ONSET 01/18/2007 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, [place] HYPERTENSION BENIGN 01/18/2007 08/11/2016 HYPERLIPIDEMIA 01/18/2007 08/11/2016 Hypothyroidism 01/18/2007 03/02/2016 EDEMA EXTREMITIES 01/18/2007 08/11/2016 Anemia 02/22/2019 Last Assessment & Plan: Currently stable documented as of this encounter (statuses as of 12/04/2022) [facility] History of Past illness Narrative* Problem Noted Date Resolved Date Hyperlipidemia 07/22/2015 08/11/2016 Gastroparesis 01/18/2015 03/02/2016 Gastroparesis 01/02/2015 01/02/2015 Diabetes mellitus type 2, controlled, without co mplications 12/27/2014 01/20/2016 DIABETES MELLITUS ADULT ONSET 01/18/2007 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, [place] HYPERTENSION BENIGN 01/18/2007 08/11/2016 HYPERLIPIDEMIA 01/18/2007 08/11/2016 Hypothyroidism 01/18/2007 03/02/2016 EDEMA EXTREMITIES 01/18/2007 08/11/2016 Anemia 02/22/2019 Last Assessment & Plan: Currently stable documented as of this encounter (statuses as of 12/22/2022) [facility] History of Past illness Narrative* Problem Noted Date Resolved Date Hyperlipidemia 07/22/2015 08/11/2016 Gastroparesis 01/18/2015 03/02/2016 Gastroparesis 01/02/2015 01/02/2015 Diabetes mellitus type 2, controlled, without co mplications 12/27/2014 01/20/2016 DIABETES MELLITUS ADULT ONSET 01/18/2007 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, [place] HYPERTENSION BENIGN 01/18/2007 08/11/2016 HYPERLIPIDEMIA 01/18/2007 08/11/2016 Hypothyroidism 01/18/2007 03/02/2016 EDEMA EXTREMITIES 01/18/2007 08/11/2016 Anemia 02/22/2019 Last Assessment & Plan: Currently stable documented as of this encounter (statuses as of 12/23/2022) [facility] History of Past illness Narrative* Problem Noted Date Diagnosed Date Resolved Date Hyperlipidemia 07/22/2015 08/11/2016 Gastroparesis 01/18/2015 03/02/2016 Gastroparesis 01/02/2015 01/02/2015 Diabetes mellitus type 2, co ntrolled, without complications 12/27/2014 01/20/2016 DIABETES MELLITUS ADULT ONSET 01/18/2007 04/28/2012 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, [place] HYPERTENSION BENIGN 01/18/2007 08/11/20 16 HYPERLIPIDEMIA 01/18/2007 08/11/2016 Hypothyroidism 01/18/2007 03/02/2016 EDEMA EXTREMITIES 01/18/2007 08/11/2016 Anemia 02/22/2019 Last Assessment & Plan: Currently stable documented as of this encounter (statuses as of 07/26/2023) [facility] History of Past illness Narrative* Problem Noted Date Diagnosed Date Resolved Date Hyperlipidemia 07/22/2015 08/11/2016 Gastroparesis 01/18/2015 03/02/2016 Gastroparesis 01/02/2015 01/02/2015 Diabetes mellitus type 2, co ntrolled, without complications 12/27/2014 01/20/2016 DIABETES MELLITUS ADULT ONSET 01/18/2007 04/28/2012 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, [place] HYPERTENSION BENIGN 01/18/2007 08/11/20 16 HYPERLIPIDEMIA 01/18/2007 08/11/2016 Hypothyroidism 01/18/2007 03/02/2016 EDEMA EXTREMITIES 01/18/2007 08/11/2016 Anemia 02/22/2019 Last Assessment & Plan: Currently stable documented as of this encounter (statuses as of 08/03/2023) [facility] History of Past illness Narrative* Problem Noted Date Diagnosed Date Resolved Date Hyperlipidemia 07/22/2015 08/11/2016 Gastroparesis 01/18/2015 03/02/2016 Gastroparesis 01/02/2015 01/02/2015 Diabetes mellitus type 2, co ntrolled, without complications 12/27/2014 01/20/2016 DIABETES MELLITUS ADULT ONSET 01/18/2007 04/28/2012 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, [place] HYPERTENSION BENIGN 01/18/2007 08/11/20 16 HYPERLIPIDEMIA 01/18/2007 08/11/2016 Hypothyroidism 01/18/2007 03/02/2016 EDEMA EXTREMITIES 01/18/2007 08/11/2016 Anemia 02/22/2019 Last Assessment & Plan: Currently stable documented as of this encounter (statuses as of 08/06/2023) [facility] History of Past illness Narrative* Problem Noted Date Diagnosed Date Resolved Date Hyperlipidemia 07/22/2015 08/11/2016 Gastroparesis 01/18/2015 03/02/2016 Gastroparesis 01/02/2015 01/02/2015 Diabetes mellitus type 2, co ntrolled, without complications 12/27/2014 01/20/2016 DIABETES MELLITUS ADULT ONSET 01/18/2007 04/28/2012 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, [place] HYPERTENSION BENIGN 01/18/2007 08/11/20 16 HYPERLIPIDEMIA 01/18/2007 08/11/2016 Hypothyroidism 01/18/2007 03/02/2016 EDEMA EXTREMITIES 01/18/2007 08/11/2016 Anemia 02/22/2019 Last Assessment & Plan: Currently stable documented as of this encounter (statuses as of 08/19/2023) [facility] Deficiency of multiple nutrient elements Other nutritional deficiency Obstructive sleep apnea Obstructive sleep apnea (adult) (pediatric) Essential hypertension Unspecified essential hypertension Hyperlipidemia, unspecified hyperlipidemia type Class 3 severe obesity due to excess calories with serious comorbidity and body mass index (BMI) of 40.0 to 44.9 in adult (HCC) Back pain, unspecified back location, unspecified back pain laterality, unspecified chronicity Zinc deficiency Mineral deficiency, not elsewhere classified Vitamin B deficiency Unspecified vitamin B deficiency Vitamin D deficiency Unspecified vitamin D deficiency documented in this encounter [facility] Work Phone: Evaluation note* Diagnosis Oropharyngeal dysphagia- Primary Dysphagia, oropharyngeal phase History of adjustable gastric banding Abnormal upper gastrointestinal barium series Nonspecific (abnormal) findings on radiological and other examination of gastrointestinal tract Class 2 severe obesity due to excess calories with serious comorbidity and body mass index (BMI) of 39.0 to 39.9 in adult (HCC) Gastric polyp Benign neoplasm of stomach Postoperative abdominal pain Abdominal pain, unspecified site REMIGIO on CPAP Obstructive sleep apnea (adult) (pediatric) Chronic superficial gastritis without bleeding Atrophic gastritis without mention of hemorrhage documented in this encounter [facility] Work Phone: Evaluation note* Diagnosis Post-op pain- Primary Other acute postoperative pain Subcutaneous mass of right thumb documented in this encounter [facility] Work Phone: Evaluation note* Diagnosis REMIGIO (obstructive sleep apnea)- Primary Obstructive sleep apnea (adult) (pediatric) documented in this encounter [facility] note* Diagnosis REMIGIO (obstructive sleep apnea)- Primary Obstructive sleep apnea (adult) (pediatric) documented in this encounter [facility] note* Diagnosis Medication management Encounter for long-term (current) use of other medications documented in this encounter [facility] note* Diagnosis REMIGIO (obstructive sleep apnea) Obstructive sleep apnea (adult) (pediatric) documented in this encounter [facility] note* Diagnosis Obstructive sleep apnea (adult) (pediatric)- Primary Migraine without status migrainosus, not intractable, unspecified migraine type Insomnia, unspecified type Class 3 severe obesity with body mass index (BMI) of 40.0 to 44.9 in adult, unspecified obesity type, unspecified whether serious comorbidity present (HCC) documented in this encounter [facility] note* Diagnosis Medication management Encounter for long-term (current) use of other medications Acquired hypothyroidism Unspecified hypothyroidism documented in this encounter [facility] note* Diagnosis Encounter for screening mammogram for breast cancer documented in this encounter [facility] note* Diagnosis Essential hypertension- Primary Unspecified essential hypertension Prediabetes Other abnormal glucose Mixed hyperlipidemia Acquired hypothyroidism Unspecified hypothyroidism Bipolar I disorder, most recent episode depressed (HCC) Bipolar I disorder, most recent episode (or current) depressed, unspecified documented in this encounter [facility] note* Diagnosis Obstructive sleep apnea (adult) (pediatric)- Primary Insomnia, unspecified type Class 3 severe obesity with body mass index (BMI) of 40.0 to 44.9 in adult, unspecified obesity type, unspecified whether serious comorbidity present (HCC) documented in this encounter [facility] note* Diagnosis Primary hypertension- Primary Unspecified essential hypertension REMIGIO on CPAP Deficiency of multiple nutrient elements Other nutritional deficiency Class 2 severe obesity due to excess calories with serious comorbidity and body mass index (BMI) of 35.0 to 35.9 in adult (HCC) High cholesterol Pure hypercholesterolemia documented in this encounter [facility] note* Diagnosis Essential hypertension- Primary Unspecified essential hypertension Acquired hypothyroidism Unspecified hypothyroidism Migraine without aura and without status migrainosus, not intractable Migraine without aura, without mention of intractable migraine without mention of status migrainosus Elevated fasting glucose Impaired fasting glucose Bipolar I disorder, most recent episode depressed (HCC) Bipolar I disorder, most recent episode (or current) depressed, unspecified Mixed hyperlipidemia documented in this encounter [facility] note* Diagnosis Obstructive sleep apnea syndrome- Primary Obstructive sleep apnea (adult) (pediatric) Insomnia, unspecified type Difficulty using biphasic positive airway pressure (BiPAP) machine documented in this encounter [facility] note* Diagnosis Primary hypertension- Primary Unspecified essential hypertension REMIGIO on CPAP Deficiency of multiple nutrient elements Other nutritional deficiency Hyperlipidemia, unspecified hyperlipidemia type Class 1 obesity due to excess calories with serious comorbidity and body mass index (BMI) of 33.0 to 33.9 in adult High vitamin D level Hypervitaminosis D documented in this encounter [facility] note* Diagnosis Encounter for screening mammogram for breast cancer documented in this encounter [facility] note* Diagnosis Acquired hypothyroidism Unspecified hypothyroidism documented in this encounter [facility] note* Diagnosis Burning sensation of feet- Primary Disturbance of skin sensation documented in this encounter [facility] note* Diagnosis REMIGIO on CPAP Primary hypertension Unspecified essential hypertension Deficiency of multiple nutrient elements Other nutritional deficiency Hyperlipidemia, unspecified hyperlipidemia type Class 2 severe obesity due to excess calories with serious comorbidity and body mass index (BMI) of 36.0 to 36.9 in adult documented in this encounter [facility] Discharge instructions* Instructions* Joi Srivastava PA - 10/13/2019 Keep operative splint/dressing on, clean, and dry until follow up appointment in 1-2 weeks. You received a local injection with lidocaine and epinephrine today. It is normal for your finger tip to look pale or white for up to 10 hours after surgery but if this persists past the 10 hours please call the office immediately. Elevate and Ice for pain control. Encourage range of motion of index finger, long finger, ring finger, little finger and thumb MCP and CMC joints but not IP joint near nailbed in splint/dressing with goal of touching finger tips to splint material/dressing in palm by initial post op appointment. Non weight bearing in operative extremity. [facility]: Reason for referral (narrative)* Diagnostic Procedure Only (Routine) - Pending Review Specialty Diagnoses / Procedures Referred By Raquel quesada Referred To Contact [facility] Diagnoses Encounter for screening mammogram for breast cancer Procedures [facility] SCREENING SCREENING MAMMOGRAPHY BI 2-VIEW BREAST INC Olga Brown MD [address] [place] [address] [facility] [address] [place] [address] Referral ID Status Reason Start Date Expiration Date Visits Requested Visits Authorized [id number] Pending Review Auto-Generat ed Referral 08/13/2022 09/12/2023 1 [facility] Diagnostic Procedure Only (Routine) - Pending Review Specialty Diagnoses / Procedures Referred By Raquel quesada Referred To Contact [facility] Diagnoses Encounter for screening mammogram for breast cancer Procedures [facility] SCREENING SCREENING MAMMOGRAPHY BI 2-VIEW BREAST INC Olga Brown MD [address] [place] [address] [facility] [address] [place] [address] Referral ID Status Reason Start Date Expiration Date Visits Requested Visits Authorized [id number] Pending Review Auto-Generat ed Referral 07/21/2023 08/19/2024 1 1 [facility] Advance Directives No Advanced Directives Records FoundDocuments on File Type Date Recorded Patient Hired Hand Expl anation ACP-Advance Directive ACP-Power of Machine Filler Latest Code Status on File Code Status Date Activated Date Inactivated Comments Full Code 10/13/2019 7:10 AM 10/13/2019 12:13 PM Latest Code Status on File Code Status Date Activated Date Inactivated Comments Full Code 11/18/2021 10:58 AM Full Code 10/13/2019 7:10 AM 10/13/2019 12:13 PM Documents on File Type Date Recorded Patient Hired Hand Expl anation Advance Directives and Living Will Power of Machine Filler Latest Code Status on File Code Status Date Activated Date Inactivated Comments Full Code 10/13/2019 7:10 AM Documents on File Type Date Recorded Patient Hired Hand Expl anation Advance Directive(s) 03/18/2016 12:26 PM Latest Code Status on File Code Status Date Activated Date Inactivated Comments Full Code 11/18/2021 10:58 AM 11/18/2021 5:45 PM Latest Code Status on File Code Status Date Activated Date Inactivated Comments Full Code 09/02/2022 4:02 PM 09/03/2022 6:46 PM Code Status History Code Status Date Activated Date Inactivated Comments Full Code 09/02/2022 5:40 AM 09/02/2022 4:02 PM Summary Purpose Family History No Family History Records FoundNo Family History Records FoundNo Family History Records FoundNo Family History Records Found Additional Source Comments Care Teams (unrecognized sec tion and content) Lead Data Entry Operator Relationship Specialty Start Date End Date Olga Bolaños MD [address] [facility] [place] [address] PCP - General Internal Medicine 08/24/19 Lead Data Entry Operator Relationship Specialty Start Date End Date Olga Bolaños MD [address] [facility] [place] [address] PCP - General Internal Medicine 08/24/19 Lead Data Entry Operator Relationship Specialty Start Date End Date Olga Bolaños MD [address] [facility] [place] [address] PCP - General Internal Medicine 08/24/19 Lead Data Entry Operator Relationship Specialty Start Date End Date Olga Bolaños MD [address] [facility] [place] [address] PCP - General Internal Medicine 08/24/19 Lead Data Entry Operator Relationship Specialty Start Date End Date Olga Bolaños MD [address] [place] [address] PCP - General Internal Medicine 06/25/16 Lead Data Entry Operator Relationship Specialty Start Date End Date Olga Bolaños MD [address] [place] [address] PCP - General Internal Medicine 06/25/16 Lead Data Entry Operator Relationship Specialty Start Date End Date Olga Bolaños MD [address] [facility] [place] [address] PCP - General Internal Medicine 08/24/19 Lead Data Entry Operator Relationship Specialty Start Date End Date Olga Bolaños MD [address] [place] [address] PCP - General Internal Medicine 06/25/16 Lead Data Entry Operator Relationship Specialty Start Date End Date Olga Bolaños MD [address] [facility] [place] [address] PCP - General Internal Medicine 08/24/19 Lead Data Entry Operator Relationship Specialty Start Date End Date Olga Bolaños MD [address] [place] [address] PCP - General Internal Medicine 06/25/16 Lead Data Entry Operator Relationship Specialty Start Date End Date Olga Bolaños MD [address] [facility] [address] PCP - General Internal Medicine 06/25/16 Lead Data Entry Operator Relationship Specialty Start Date End Date Olga Bolaños MD [address] [facility] [address] PCP - General Internal Medicine 06/25/16 Lead Data Entry Operator Relationship Specialty Start Date End Date Olga Bolaños MD [address] [place] [address] PCP - General Internal Medicine 06/25/16 Lead Data Entry Operator Relationship Specialty Start Date End Date Olga Bolaños MD [address] [facility] [place] [address] PCP - General Internal Medicine 08/24/19 Lead Data Entry Operator Relationship Specialty Start Date End Date Olga Bolaños MD [address] [facility] [address] PCP - General Internal Medicine 06/25/16 Lead Data Entry Operator Relationship Specialty Start Date End Date Olga Bolaños MD [address] [facility] [address] PCP - General Internal Medicine 06/25/16 Lead Data Entry Operator Relationship Specialty Start Date End Date Olga Bolaños MD [address] [place] [address] PCP - General Internal Medicine 06/25/16 Lead Data Entry Operator Relationship Specialty Start Date End Date Olga Bolaños MD [address] [place] [address] PCP - General Internal Medicine 06/25/16 Lead Data Entry Operator Relationship Specialty Start Date End Date Olga Bolaños MD [address] [place] [address] PCP - General 08/24/19 Saman Moctezuma MD [address] [place] [address] Surgeon Bariatric Surgery 08/05/22 Garret Ocampo PA [address] [place] [address] Physician Engine Hostler Bariatrics 08/05/22 Lead Data Entry Operator Relationship Specialty Start Date End Date Olga Bolaños MD [address] [place] [address] PCP - General Internal Medicine 06/25/16 Lead Data Entry Operator Relationship Specialty Start Date End Date Olga Bolaños MD [address] [place] [address] PCP - General Internal Medicine 06/25/16 Lead Data Entry Operator Relationship Specialty Start Date End Date Olga Bolaños MD [address] [place] [address] PCP - General 08/24/19 Saman Moctezuma MD [address] [place] [address] Surgeon Bariatric Surgery 08/05/22 Garret Ocampo PA [address] [place] [address] Physician Engine Hostler Bariatrics 08/05/22 Lead Data Entry Operator Relationship Specialty Start Date End Date Olga Bolaños MD [address] [place] [address] PCP - General 08/24/19 Saman Moctezuma MD [address] [place], [place] [id number] Surgeon Bariatric Surgery 08/05/22 Garret Ocampo PA [address] [place], [place] [id number] Physician Engine Hostler Bariatrics 08/05/22 Lead Data Entry Operator Relationship Specialty Start Date End Date Olga Bolaños MD [address] [place] [address] PCP - General Internal Medicine 06/25/16 Lead Data Entry Operator Relationship Specialty Start Date End Date Olga Bolaños MD [address] [place] [address] PCP - General Internal Medicine 06/25/16 Lead Data Entry Operator Relationship Specialty Start Date End Date Olga Bolaños MD [address] [place] [address] PCP - General Internal Medicine 06/25/16 Lead Data Entry Operator Relationship Specialty Start Date End Date Olga Bolaños MD [address] [place] [address] PCP - General Internal Medicine 06/25/16 Lead Data Entry Operator Relationship Specialty Start Date End Date Olga Bolaños MD [address] [place] [address] PCP - General 08/24/19 Saman Moctezuma MD [address] [place] [address] Surgeon Bariatric Surgery 08/05/22 Garret Ocampo PA [address] [place], [place] [id number] Physician Engine Hostler Bariatrics 08/05/22 Ordered Prescriptions (unrec ognized section and content) Scheduled Active and Recently Administ ered Medications (unrecognized section and content) Continuous Medication Order 11/16/2021 11/17/2021 11/18/2021 lactated ringers infusion IntraVENous, at 50 mL/hr, CONTINUOUS, Starting on Wed11/18/21 at 1115, Upon admission to sameday - please start iv if patient does not have iv access. Use 500ml NS for patients on dialysis., Pre-op (day of surgery) 1115 (Due) PRN Medication Order 11/16/2021 11/17/2021 11/18/2021 0.9 % sodium chloride infusion 25 mL, IntraVENous, at 100 mL/hr, PRN, If patient receiving piggyback infusions without ordered maintenance IV fluids or with frequent/long duration piggyback infusions, Starting on Wed11/18/21 at 1058, Administer at the same rate as the piggyback being infused., Pre-op (day of surgery) 0.9 % sodium chloride infusion 25 mL, IntraVENous, at 100 mL/hr, PRN, If patient receiving piggyback infusions without ordered maintenance IV fluids or with frequent/long duration piggyback infusions, Starting on Wed11/18/21 at 1236, Administer at the same rate as the piggyback being infused., PACU only ALPRAZolam (NIRAVAM) dissolvable tablet 0.25 mg 0.25 mg, Oral, PRN, Anxiety, Starting on Wed11/18/21 at 1058, Pre-op (day of surgery) diphenhydrAMINE (BENADRYL) injection 12.5 mg 12.5 mg, IntraVENous, ONCE PRN, Itching, Starting on Wed11/18/21 at 1236, For 1 dose, PACU only hydrALAZINE (APRESOLINE) injection 10 mg(Linked Group 1) 10 mg, IntraVENous, EVERY 15 MIN PRN, High Blood Pressure, for SBP greater than 180 mmHg for 2 consecutive measurements taken from different sites, Starting on Wed11/18/21 at 1236, For 2 doses, If heart rate is greater than 60 bpm, hold hydralazine and use labetalol if ordered, otherwise contact provider. Inform provider if SBP is still greater than 180 mmHg 10 minutes after second antihypertensive dose is administered., PACU only HYDROmorphone (DILAUDID) injection 0.25 mg 0.25 mg, IntraVENous, EVERY 5 MIN PRN, Pain Moderate (4-6), Starting on Wed11/18/21 at 1236, For 4 doses, Phase I and Phase II- Initial therapy for moderate pain (4-6). Restricted to a 50 minute time frame starting when the patient can verbally state their pain score. If secondary medications are utilized, do not return to initial therapy medications. SDS and, PACU only HYDROmorphone (DILAUDID) injection 0.5 mg 0.5 mg, IntraVENous, EVERY 5 MIN PRN, Pain Severe (7-10), Starting on Wed11/18/21 at 1236, For 4 doses, Phase I or Phase II- Initial therapy for severe pain (7-10). Restricted to a 50 minute time frame starting when the patient can verbally state their pain score. If secondary medications are utilized, do not return to initial therapy medications. Sameday and, PACU only 1416 (Given - Provid er: Rubina Key RN) labetalol (NORMODYNE;TRANDATE) injection 10 mg(Linked Group 1) 10 mg, IntraVENous, EVERY 15 MIN PRN, High Blood Pressure, for SBP greater than 180 mmHg for 2 consecutive measurements taken from different sites., Starting on Wed11/18/21 at 1236, For 2 doses, If heart rate is 60 bpm or less hold labetalol and use hydralazine if ordered, otherwise contact provider. Inform provider if SBP is still greater than 180 mmHg, 10 minutes after second antihypertensive dose is administered., PACU only lidocaine PF 1 % injection 1 mL 1 mL, IntraDERmal, ONCE PRN, IV start, Starting on Wed11/18/21 at 1058, For 1 dose, Pre-op (day of surgery) meperidine (DEMEROL) injection 12.5 mg 12.5 mg, IntraVENous, EVERY 5 MIN PRN, Shivering, , Starting on Wed11/18/21 at 1236, May give every 5 minutes to max of 50mg., PACU only ondansetron (ZOFRAN) injection 4 mg 4 mg, IntraVENous, ONCE PRN, Nausea, Starting on Wed11/18/21 at 1236, For 1 dose, Initial antiemetic therapy., PACU only oxyCODONE (ROXICODONE) immediate release tablet 5 mg (COMPLETED) 5 mg, Oral, PRN, Pain Moderate (4-6), Starting on Wed11/18/21 at 1236, For 1 dose, PHASE II, PACU only 1512 (Given - Provid er: Rubina Key RN) sodium chloride flush 0.9 % injection 5-40 mL 5-40 mL, IntraVENous, PRN, Line Care, Starting on Wed11/18/21 at 1058, For Line Patency: Peripheral IV = 5 mL; Midline or Central Line = 10 mL/lumen. If following IV push medication, administer flush at same rate as the IV push. Flush volume is determined by type of infusion therapy being given. For non-viscous solutions use: Peripheral IV = 5 mL Midline or Central Line = 10 mL/lumen For viscous solutions (i.e. blood components, parenteral nutrition, contrast media, or after obtaining blood sample) use: Peripheral IV = 10 mL Midline or Central Line = 20 mL/lumen, Pre-op (day of surgery) sodium chloride flush 0.9 % injection 5-40 mL 5-40 mL, IntraVENous, PRN, Line Care, After every IV line use, Starting on Wed11/18/21 at 1236, For Line Patency: Peripheral IV = 5 mL; Midline or Central Line = 10 mL/lumen. If following IV push medication, administer flush at same rate as the IV push. Flush volume is determined by type of infusion therapy being given. For non-viscous solutions use: Peripheral IV = 5 mL Midline or Central Line = 10 mL/lumen For viscous solutions (i.e. blood components, parenteral nutrition, contrast media, or after obtaining blood sample) use: Peripheral IV = 10 mL Midline or Central Line = 20 mL/lumen, PACU only Linked Groups Order Group 1: labetalol (NORMODYNE;TRANDATE) injection 10 mgJump to med 10 mg, IntraVENous, EVERY 15 MIN PRN, High Blood Pressure, for SBP greater than 180 mmHg for 2 consecutive measurements taken from different sites., Starting on Wed11/18/21 at 1236, For 2 doses
If heart rate is 60 bpm or less hold labetalol and use hydralazine if ordered, otherwise contact provider. Inform provider if SBP is still greater than 180 mmHg, 10 minutes after second antihypertensive dose is administered.
PACU only Or hydrALAZINE (APRESOLINE) injection 10 mgJump to med 10 mg, IntraVENous, EVERY 15 MIN PRN, High Blood Pressure, for SBP greater than 180 mmHg for 2 consecutive measurements taken from different sites, Starting on Wed11/18/21 at 1236, For 2 doses
If heart rate is greater than 60 bpm, hold hydralazine and use labetalol if ordered, otherwise contact provider. Inform provider if SBP is still greater than 180 mmHg 10 minutes after second antihypertensive dose is administered.
PACU only INFORMATION SOURCE (unrecogn ized section and content) DATE CREATED AUTHOR AUTHOR'S ORGANIZ ATION 04/05/2022 [facility] [address] [facility] DATE CREATED AUTHOR AUTHOR'S ORGANIZ ATION 09/09/2023 [facility] DATE CREATED AUTHOR AUTHOR'S ORGANIZ ATION 10/12/2023 [facility] Source Comments (unrecognize d section and content) In the event this informatio n is protected by the Federal Confidentiality of Alcohol and Drug Abuse Patient Records regulations: The Federal rules restrict any use of the information to criminally investigate or prosecute any alcohol or drug abuse patient.[facility] the event this information is protected by the Federal Confidentiality of Alcohol and Drug Abuse Patient Records regulations: The Federal rules restrict any use of the information to criminally investigate or prosecute any alcohol or drug abuse patient.[facility] the event this information is protected by the Federal Confidentiality of Alcohol and Drug Abuse Patient Records regulations: The Federal rules restrict any use of the information to criminally investigate or prosecute any alcohol or drug abuse patient.[facility] the event this information is protected by the Federal Confidentiality of Alcohol and Drug Abuse Patient Records regulations: The Federal rules restrict any use of the information to criminally investigate or prosecute any alcohol or drug abuse patient.[facility] Hospital[facility] the event this information is protected by the Federal Confidentiality of Alcohol and Drug Abuse Patient Records regulations: The Federal rules restrict any use of the information to criminally investigate or prosecute any alcohol or drug abuse patient.[facility] HospitalIn the event this information is protected by the Federal Confidentiality of Alcohol and Drug Abuse Patient Records regulations: The Federal rules restrict any use of the information to criminally investigate or prosecute any alcohol or drug abuse patient.[facility] HospitalIn the event this information is protected by the Federal Confidentiality of Alcohol and Drug Abuse Patient Records regulations: The Federal rules restrict any use of the information to criminally investigate or prosecute any alcohol or drug abuse patient.[facility] HospitalIn the event this information is protected by the Federal Confidentiality of Alcohol and Drug Abuse Patient Records regulations: The Federal rules restrict any use of the information to criminally investigate or prosecute any alcohol or drug abuse patient.[facility] HospitalIn the event this information is protected by the Federal Confidentiality of Alcohol and Drug Abuse Patient Records regulations: The Federal rules restrict any use of the information to criminally investigate or prosecute any alcohol or drug abuse patient.[facility] Hospital[facility] the event this information is protected by the Federal Confidentiality of Alcohol and Drug Abuse Patient Records regulations: The Federal rules restrict any use of the information to criminally investigate or prosecute any alcohol or drug abuse patient.[facility] HospitalIn the event this information is protected by the Federal Confidentiality of Alcohol and Drug Abuse Patient Records regulations: The Federal rules restrict any use of the information to criminally investigate or prosecute any alcohol or drug abuse patient.[facility] HospitalIn the event this information is protected by the Federal Confidentiality of Alcohol and Drug Abuse Patient Records regulations: The Federal rules restrict any use of the information to criminally investigate or prosecute any alcohol or drug abuse patient.[facility] HospitalIn the event this information is protected by the Federal Confidentiality of Alcohol and Drug Abuse Patient Records regulations: The Federal rules restrict any use of the information to criminally investigate or prosecute any alcohol or drug abuse patient.[facility] HospitalIn the event this information is protected by the Federal Confidentiality of Alcohol and Drug Abuse Patient Records regulations: The Federal rules restrict any use of the information to criminally investigate or prosecute any alcohol or drug abuse patient.[facility] HospitalIn the event this information is protected by the Federal Confidentiality of Alcohol and Drug Abuse Patient Records regulations: The Federal rules restrict any use of the information to criminally investigate or prosecute any alcohol or drug abuse patient.[facility] HospitalIn the event this information is protected by the Federal Confidentiality of Alcohol and Drug Abuse Patient Records regulations: The Federal rules restrict any use of the information to criminally investigate or prosecute any alcohol or drug abuse patient.[facility] HospitalIn the event this information is protected by the Federal Confidentiality of Alcohol and Drug Abuse Patient Records regulations: The Federal rules restrict any use of the information to criminally investigate or prosecute any alcohol or drug abuse patient.[facility] HospitalIn the event this information is protected by the Federal Confidentiality of Alcohol and Drug Abuse Patient Records regulations: The Federal rules restrict any use of the information to criminally investigate or prosecute any alcohol or drug abuse patient.[facility] HospitalIn the event this information is protected by the Federal Confidentiality of Alcohol and Drug Abuse Patient Records regulations: The Federal rules restrict any use of the information to criminally investigate or prosecute any alcohol or drug abuse patient.[facility] HospitalIn the event this information is protected by the Federal Confidentiality of Alcohol and Drug Abuse Patient Records regulations: The Federal rules restrict any use of the information to criminally investigate or prosecute any alcohol or drug abuse patient.[facility] HospitalIn the event this information is protected by the Federal Confidentiality of Alcohol and Drug Abuse Patient Records regulations: The Federal rules restrict any use of the information to criminally investigate or prosecute any alcohol or drug abuse patient.[facility] HospitalIn the event this information is protected by the Federal Confidentiality of Alcohol and Drug Abuse Patient Records regulations: The Federal rules restrict any use of the information to criminally investigate or prosecute any alcohol or drug abuse patient.[facility] HospitalIn the event this information is protected by the Federal Confidentiality of Alcohol and Drug Abuse Patient Records regulations: The Federal rules restrict any use of the information to criminally investigate or prosecute any alcohol or drug abuse patient.[facility] HospitalIn the event this information is protected by the Federal Confidentiality of Alcohol and Drug Abuse Patient Records regulations: The Federal rules restrict any use of the information to criminally investigate or prosecute any alcohol or drug abuse patient.[facility] HospitalIn the event this information is protected by the Federal Confidentiality of Alcohol and Drug Abuse Patient Records regulations: The Federal rules restrict any use of the information to criminally investigate or prosecute any alcohol or drug abuse patient.[facility] HospitalIn the event this information is protected by the Federal Confidentiality of Alcohol and Drug Abuse Patient Records regulations: The Federal rules restrict any use of the information to criminally investigate or prosecute any alcohol or drug abuse patient.[facility] HospitalIn the event this information is protected by the Federal Confidentiality of Alcohol and Drug Abuse Patient Records regulations: The Federal rules restrict any use of the information to criminally investigate or prosecute any alcohol or drug abuse patient.[facility] Reason for Visit (unrecogniz ed section and content) Reason Onset Date Comments Refill Request 01/09/2022 Reason Comments PSG results Reason Comments Orders Reason Comments [facility] - Other Faxed paperwork Reason Comments Orders CPAP Supplies Reason Comments Patient Update Reason Comments DME company Reason Comments Follow Up 4 months Reason Comments Recheck 6 month follow up Reason Comments Established Patient Sleep Apnea Reason Comments Medication Problem Reason Comments Bariatrics Post Op Follow-up 3m Reason Comments Recheck 3 month follow up Reason Comments Established Patient Reason Comments PAP Rx Faxed DME: [facility] Reason Comments Bariatrics Post Op Follow-up 6M Reason Onset Date Comments Med Refill 05/28/2023 Prilosec Reason Comments Follow Up neuropathy of feet Reason Comments Bariatrics Post Op Follow-up 12M FOR RECORDS PERTAINING TO PATIENTS WHO ARE OR HAVE BEEN ENROLLED IN A CHEMICAL DEPENDENCY/SUBSTANCEABUSE PROGRAM, SOME INFORMATION MAY BE OMITTED. This clinical summary was aggregated from multiple sources. Caution should be exercised in using it in the provision of clinical care. This summary normalizes information from multiple sources, and as a consequence, information in this document may materially change the coding, format and clinical context of patient data. In addition, data may be omitted in some cases. CLINICAL DECISIONS SHOULD BE BASED ON THE PRIMARY CLINICAL RECORDS. [facility] provides no warranty or guarantee of the accuracy or completeness of information in this document.
[2023-10-29 08:51] LABS: ALB/GLOB Ratio 1.1 RATIO (0.9-2.4); AST(SGOT) 19 U/L (15-37); Alanine Aminotransfer ALT/SGPT 24 U/L (13-56); Albumin, Serum 3.8 g/dL (3.2-5.0); Alkaline Phosphatase 85 U/L (45-117); Anion Gap 8 (5-15); BUN 7 mg/dL (7-18); Calcium,Total 9.7 mg/dL (8.5-10.1); Chloride 103 mmol/L (98-107); Cholesterol 194 mg/dL (200); Creatinine, Serum 0.64 mg/dL (0.55-1.02); EST Glomerular Filtration Rate 103 mL/min (>60); Est Glom Filt Rate - Afr Amer 124 mL/min (>60); Globulin 3.6 g/dL (2.2-4.2); Glucose 89 mg/dL (74-106); High Density Lipoprotein 58 mg/dL; Potassium 3.7 mmol/L (3.5-5.1); Protein, Total 7.4 g/dL (6.4-8.2); Sodium Level 141 mmol/L (136-145); T4 Free Direct 1.06 ng/dL (0.76-1.46); Thyroid Stim Hormone (TSH) 1.68 uIU/mL (0.358-3.74); Triglycerides 167 mg/dL; Very Low Density Lipoprotein 33 mg/dL (5-40)
[2023-10-29 09:54] LABS: Hemoglobin A1c 4.9 % (3.8-5.6)
[2023-10-29 09:57] LABS: Vitamin B12 406 pg/mL (211-911); Vitamin D,25 Hydroxy 52.9 ng/mL
== END | disposition home or self-care (01) ==
LOC: LAB 06:06
PROVIDERS: PCP Internal Medicine; Referring Provider Internal Medicine Endocrinology, Diabetes & Metabolism; Visit Provider Internal Medicine Endocrinology, Diabetes & Metabolism
DX: E03.9 Hypothyroidism, unspecified (principal); E11.610 Type 2 diabetes mellitus with diabetic neuropathic arthropathy; I10 Essential (primary) hypertension
CPT/HCPCS: 36415; 80053; 80061; 82306; 82607; 83036; 84439; 84443

== ENCOUNTER → 2023-11-12 | Outpatient (CLI) | payer OTHER, SELFPAY ==
--- OUTSIDE RECORDS SUMMARY | 2023-11-12 06:14 | XMS RPT_ITS | CCD ---
Author Name Unknown Address [email or web address] [place] [address] Organization [facility] Care Team Providers Care Finisher Operator Name Role Phone Ana Guo MD Primary Care Provider Ana Guo MD Primary Care Provider Saman Moctezuma MD Unavailable Garret Christensen Unavailable Ana Guo MD Primary Care Provider Ana Guo MD Primary Care Provider Saman Moctezuma MD Unavailable Garret Christensen Unavailable SAMAN MOCTEZUMA Attending Unavailable GANTA, ANA Primary Care Unavailable ZUPGARRET MOE Attending Unavailable GANTA, ANA Primary Care Unavailable ZUPGARRET MOE Attending Unavailable GANTA, ANA Primary Care Unavailable SAMAN MOCTEZUMA Attending Unavailable GANTA, ANA Primary Care Unavailable ZUPGARRET MOE Attending Unavailable OLDER, MICKI Referring Unavailable GANTA, ANA Primary Care Unavailable OLDER, MICKI Attending Unavailable GANTA, ANA Primary Care Unavailable LUIS MONTANEZ Attending Unavailable GANTA, ANA Primary Care Unavailable OLDER, MICKI Attending Unavailable GANTA, ANA Primary Care Unavailable PASTORA, TRES Referring Unavailable GANTA, ANA Primary Care Unavailable OLDER, MICKI Attending Unavailable GANTA, ANA Primary Care Unavailable OLDER, MICKI Referring Unavailable GANTA, ANA Primary Care Unavailable PASTORA, TRES Attending Unavailable GANTA, ANA Primary Care Unavailable OLDER, MICKI Attending Unavailable GANTA, ANA Primary Care Unavailable OLDER, MICKI Referring Unavailable GANTA, ANA Primary Care Unavailable MICKI UNDERWOOD Attending Unavailable [facility] Primary Care Unavailable LUIS MONTANEZ Attending Unavailable [facility] Primary [facility] Unavailable Allergies Allergy Classification Reported Allergen(s) Allergy [...] End: 11-18-2021 acetaminophen (TYLENOL) tablet 1,000 mg COLONOSCOPY FLX DX W/COLLJ SPEC WHEN PFRMD [...] 10 mg by mouth twice daily. ) explq-cy-1-xjq-cmd-cpjlifb-ast (KRILL OIL) 1,714-400-03-50 mg cap Take 1,000 mg by mouth [...] - Instructed patient to contact office or fqugs-sd-[id number] after-hours promptly should condition worsen or any new symptoms appear. - Counseling Center [facility] and after hours crisis line 6. Mixed [...] Micki Underwood APRN.CNP documented in this encounter [facility] 12-02-2022 Note BARIATRIC CARE [facility] Ortega PROGRESS NOTE POST WEIGHT LOSS SURGERY FOLLOW UP Patient: Annie Evangelista Service Date: 12/02/2022 Patient is 3 month(s) s/p Sleeve Gastrectomy Today's Metrics: Post-Surgical Weight Loss Date: 12/02/22 Height: 5' 7 (170.2 cm) ([facility]) Weight: 228 lb 6.4 oz (104 kg) ([facility]) BMI: 35.77 Weight Change: -20.4 lbs Total [...] or BRUNILDA If YES: Labs completed at [facility]? no If yes see Labs Tab Labs completed at Non-[facility] facility? yes If yes see Encounters Tab - Orders only - Historical Provider - Date: 11/13/2022 SCANNED INTO MEDIA Completed by: Kristina Dillard MA [facility] 12-02-2022 History of Present illness Narrative Images [...] on this Req. Please send results to: Ana Guo MD - [address] [facility] [address] - [phone] And if not done at a [facility] Facility, please send to: [address] [address] Patient Name: Annie Evangelista - 1965 Order Created by : Kristina Dillard MA Standing Status: Future Standing Expiration Date: 12/03/2023 Folate These orders are set for an approximate date - they can be drawn up to 3 months prior to the Expected Date on this Req. Please send results to: Ana Guo MD - [address] [facility] [address] - [phone] And if not done at a [facility] Facility, please send to: [address] [address] Patient Name: Annie Evangelista - 1965 Order Created by : Kristina Dillard MA Standing Status: Future Standing Expiration Date: 12/03/2023 Iron These orders are set for an approximate date - they can be drawn up to 3 months prior to the Expected Date on this Req. Please send results to: Ana Guo MD - [address] [facility] [address] - [phone] And if not done at a [facility] Facility, please send to: [address], [address] Patient Name: Annie Evangelista - 1965 Order Created by : Kristina Dillard MA Standing Status: Future Standing Expiration Date: 12/03/2023 Ferritin These orders are set for an approximate date - they can be drawn up to 3 months prior to the Expected Date on this Req. Please send results to: Ana Guo MD - [address] [facility] [address] - [phone] And if not done at a [facility] Facility, please send to: [place] [address] Patient Name: Annie Abarcat - 1965 Order Created by : Kristina Dillard MA Standing Status: Future Standing Expiration Date: 12/03/2023 Magnesium These orders are set for an approximate date - they can be drawn up to 3 months prior to the Expected Date on this Req. Please send results to: MD Simon Stone [address] [facility] [address] - [phone] And if not done at a [facility] Facility, please send to: [place] [address] Patient Name: Annie Evangelista - 1965 Order Created by : Kristina Dillard MA Standing Status: Future Standing Expiration Date: 12/03/2023 Vitamin D 25 hydroxy These orders are set for an approximate date - they can be drawn up to 3 months prior to the Expected Date on this Req. Please send results to: MD Simon Stone [address] [facility] [address] - [phone] And if not done at a [facility] Facility, please send to: [place] [address] Patient Name: Annie Evangelista - 1965 Order Created by : Kristina Dilalrd MA Standing Status: Future Standing Expiration Date: 12/03/2023 Vitamin B12 These orders are set for an approximate date - they can be drawn up to 3 months prior to the Expected Date on this Req. Please send results to: Ana Guo MD - [address] [facility] [address] - [phone] And if not done at a [facility] Facility, please send to: [address], [facility] Patient Name: Annie Evangelista - 1965 Order Created by : Kristina Dillard MA Standing Status: Future Standing Expiration Date: 12/03/2023 Vitamin B1, whole blood These orders are set for an approximate date - they can be drawn up to 3 months prior to the Expected Date on this Req. Please send results to: Ana Guo MD - [facility] [facility] [address] - [phone] And if not done at a [facility] Facility, please send to: [place] [address] Patient Name: Annie Evangelista - 1965 Order Created by : Kristina Dillard MA Standing Status: Future Standing Expiration Date: 12/03/2023 Lipid panel These orders are set for an approximate date - they can be drawn up to 3 months prior to the Expected Date on this Req. Please send results to: Ana Guo MD - [address] [facility] [address] - [phone] And if not done at a [facility] Facility, please send to: [address], [facility] Patient Name: Annie Evangelista - 1965 Order Created by : Kristina Dillard MA Standing Status: Future Standing Expiration Date: 12/03/2023 Comprehensive metabolic panel These orders are set for an approximate date - they can be drawn up to 3 months prior to the Expected Date on this Req. Please send results to: Ana Guo MD - [address] [facility] [address] - [phone] And if not done at a [facility] Facility, please send to: [facility] - [address] [place] [address], [address], [address] Patient Name: Annie Evangelista - 1965 Order Created by : Kristina Dlilard MA Standing Status: Future Standing Expiration Date: 12/03/2023 CBC These orders are set for an approximate date - they can be drawn up to 3 months prior to the Expected Date on this Req. Please send results to: Ana Guo MD - [address] [facility] [address] - [phone] And if not done at a [facility] Facility, please send to: [facility] - [address] [place] [address], [address], [address] Patient Name: Annie Evangelista - 1965 Order Created by : Kristina [...] mouth in the morning. [DISCONTINUED] nystatin (Mycostatin) 340052 UNIT/ML suspension Swish and spit 5 mL [...] by mouth in the morning. NYSTATIN (MYCOSTATIN) 486219 UNIT/ML SUSPENSION Swish and spit 5 mL [...] POST WEIGHT LOSS SURGERY FOLLOW UP Patient: Annie Evangelista Service Date: 12/02/2022 Patient is 3 month(s) s/p Sleeve Gastrectomy Today's Metrics: Post-Surgical Weight Loss Date: 12/02/22 Height: 5' 7 (170.2 cm) ([facility]) Weight: 228 lb 6.4 oz (104 kg) ([facility]) BMI: 35.77 Weight Change: -20.4 lbs Total [...] or BRUNILDA If YES: Labs completed at [facility]? no If yes see Labs Tab Labs completed at Non-[facility] facility? yes If yes see Encounters Tab - Orders only - Historical Provider - Date: 11/13/2022 SCANNED INTO MEDIA Completed by: Kristina Dillard MA [facility] [place] 3 MONTH POST-OPERATIVE DIETITIAN VISIT Date: 12/02/22 [...] Lorena Alexis RD documented in this encounter [facility] 10-23-2022 Miscellaneous Notes May at Dr [...] Thank you Micki Underwood APRN.CNP May at [facility] called and is notified of providers message. [...] APRN.CNP Alcira from Dr. Ortiz's office at [facility] calls and states that Dr. Ortiz was wanting to prescribe patient meloxicam 15 mg for 30 days, however patient had told him that she cannot take oral NSAIDS. Dr. Ortiz asking if provider can prescribe medication in injection form? Please review and advise, Sherry Roman RN documented in this encounter [facility] 10-08-2022 Note BARIATRIC CARE AVELINO Ortega PROGRESS NOTE POST WEIGHT LOSS SURGERY FOLLOW UP Patient: Annie Evangelista Service Date: 10/08/2022 Patient is 1 month(s) s/p Sleeve Gastrectomy Today's Metrics: Post-Surgical Weight Loss Date: 10/08/22 [...] or BRUNILDA If YES: Labs completed at [facility]? no If yes see Labs Tab Labs completed at Non-[facility] facility? Yes, [facility] If yes see Encounters Tab - Orders only - Historical Provider - Date: Completed by: Mckenzie Fox [facility] 10-01-2022 Miscellaneous Notes I called patient and gave him my phone number to call him. Regards, Ana Guo MD May with [facility] calls to let provider know that Dr. Teodoro Ortiz would like to discuss patient with provider. 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 Ortiz would like to treat patient with medication but prior to treating he would like to discuss with provider. Dr. Ortiz requesting a call back at [phone]. Samra Bolanos RN documented in this encounter [facility] 09-21-2022 History of Present illness Narrative ESTABLISHED PATIENT VISIT (Virtual Visit with Video) For this virtual visit, the patient has been identified by name and (MRN and photo identification as well if available). Those taking part in visit: Patient with physician via [facility]. Consent for this visit received from patient. HISTORY OF PRESENT ILLNESS: Annie Evangelista is a 56 year old female, with [...] from the summer of 2021 (scanned in [facility]). Per records, pt with GI surgery during [...] 10 mg by mouth twice daily. ) umdah-wy-2-kfa-dsx-ahcpjes-ast (KRILL OIL) 1,175-040-32-50 mg cap Take 1,000 mg by mouth [...] 5 (Mild Depression) - 1 (None-Minimal Depression) [place] Sleepiness Scale 11/15/2021 08/28/2022 09/14/2022 Score 10 [...] which included preparing to see the patient, qldj-bs-cmpy patient care, completing clinical documentation, obtaining and/or reviewing separately obtained history, performing a medically appropriate examination, counseling and educating the patient/family/caregiver, ordering medications, tests, or procedures, and communicating results to the patient/family/caregiver. documented in this encounter [facility] 08-28-2022 History of Present illness Narrative CC: Patient presents with: Recheck: 6 month follow up HPI Annie Evangelista is a 56 year old female who presents today for routine 6 month follow up. HTN: Ms. Evangelista indicates that she is feeling well and [...] Having a stomach sleeve bariatric surgery at [facility] next Wednesday.Has had 2 different banding surgeries in the past that the band would slip . She has follow up scheduled post surgery closely following with surgery team, psychiatry, and her local flatbed driver. REVIEW OF SYSTEMS General: no fevers, no [...] Take 1 tablet at approximately 7 PM. ngyxf-pn-7-xzr-sci-zbkbhrg-ast (KRILL OIL) 1,152-543-40-50 mg cap Take 1,000 mg by mouth [...] Micki Underwood APRN.CNP documented in this encounter [facility] 04-09-2022 Miscellaneous Notes Orders for mask fitting and request EARL notes faxed to [employer]. DWAYNE Verdugo documented in this encounter [facility] 04-06-2022 History of Present illness Narrative ESTABLISHED PATIENT VISIT CHIEF COMPLAINT: Follow Up HISTORY OF PRESENT ILLNESS: Annie Evangelista is a 56 year old female, with [...] 1 tablet by mouth three times daily. ltshj-mb-3-tgc-acx-aewbmfe-ast (KRILL OIL) 1,612-025-35-50 mg cap Take 1,000 mg by mouth [...] and myositis, unspecified REMIGIO (obstructive sleep apnea) [facility] Other and unspecified hyperlipidemia Right [...] which included preparing to see the patient, uzwc-bs-vabg patient care, completing clinical documentation, obtaining and/or reviewing separately obtained history, performing a medically appropriate examination, counseling and educating the patient/family/caregiver, ordering medications, tests, or procedures, independently interpreting results (not separately reported) and communicating results to the patient/family/caregiver. documented in this encounter [facility] 03-11-2022 Miscellaneous Notes TC to patient to verify DME company for PAP compliance. Pt uses [facility]. Information updated in pt chart. DWAYNE Verdugo documented in this encounter [facility] 02-17-2022 Miscellaneous Notes Received BIPAP and supplies order form from [facility]. The form requires the provider's signature. Nurse will forward form to the provider for signature. documented in this encounter [facility] 02-06-2022 Miscellaneous Notes Information faxed. Janette Collazo LPN Will fax information to [employer]. [facility] and aware information being faxed to [phone] Attn: Allegra Emmanuel As requested. Janette Collazo LPN [facility] not received. Ie: Clinicals, sleep study, orders, demographics, etc. Was this faxed to [phone]? Please fax again. documented in this encounter [facility] 02-06-2022 Miscellaneous Notes Please see telephone encounter dated 02/04/2022. Janette Collazo LPN documented in this encounter [facility] 01-26-2022 Miscellaneous Notes New order for PAP settings faxed to [facility] at #[phone]. DWAYNE Verdugo documented in this encounter [facility] 01-23-2022 Miscellaneous Notes Emailed PSG Interpretation report with PAP Titration from [facility] Sleep Disorder Center to Dr Quinteros to address. documented in this encounter [facility] 01-09-2022 Miscellaneous Notes Patient has been [...] C Garcia LPN documented in this encounter [facility] 12-26-2021 Miscellaneous Notes This staff will fax the requested documents to [employer] to the fax number provided [employer] ([employer]) calls with patient also on the line stating that they are helping the patient to try to get her sleep study pre cert approved. [employer] is asking for office to send some information to them via fax. Patient gives verbal permission for this. [employer] asking for clinical notes documenting need for additional study and copy of study that was completed in November. Fax # to send to is . They ask that every page of fax contain patient name and along with Case # [id number]. documented in this encounter [facility] 12-17-2021 History of Present illness Narrative [...] Alexander Quinteros MD documented in this encounter [facility] 11-18-2021 History of Present illness Narrative Pt and family verbalized understanding of recovery instructions, pt verbalized a readiness to be discharged home. Pt discharged home via wheelchair accompanied by RN/volunteer. Pt has had all their belongings returned to them at discharge Pt received from OR via cart, spont. Resp. With CONSULTING SOLUTION DIRECTOR in attendance. Placed on monitor. Monitor alarms on in PACU Belongings with patient. documented in this encounter [employer] Work Phone: 11-18-2021 Hospital Discharge instructions Saman Moctezuma MD - 11/18/2021 Images from the original note were not included. [facility] - Surgery [facility] Physicians Surgery DISCHARGE INSTRUCTIONS FOR DR. MOCTEZUMA Thank you very much for allowing me to participate in your care, it is truly a privilege. Below please see discharge orders that will help you during your recovery. Please do not hesitate to call the office during the day at [phone] for any questions. After hours, the same [...] Moctezuma M.D., F.A.C.S. documented in this encounter [employer] Work Phone: 11-14-2021 Hospital Discharge instructions Juany Martinez RN - 11/14/2021 Zack: Enter through Door number 2 Registration department is located here Patient will be escorted to [facility] [place] does not open before 6am Shower with hibiclens Please bring your [facility] Memento Surgical Information folder on the day of [...] call your surgeon. documented in this encounter [employer] Work Phone: 10-13-2019 History of Present illness Narrative PT AND FAMILY VERBALIZED UNDERSTANDING OF HOMEGOING INSTRUCTIONS, PT VERBALIZED A READINESS TO BE DISCHARGED HOME. PT DISCHARGED HOME VIA WHEELCHAIR ACCOMPANIED BY VOLUNTEER. PT HAS HAD ALL THEIR BELONGINGS RETURNED TO THEM AT DISCHARGE PATIENT RECEIVED FROM OR VIA CART FAST TRACK TO PHASE II . ALERT SPONT RESP. WITH CONSULTING SOLUTION DIRECTOR IN ATTENDANCE documented in this encounter [employer] Work Phone: documented as of this encounter (statuses as of 12/16/2021) [facility] History of Past illness Narrative* Problem Noted Date Resolved Date Hyperlipidemia 07/22/2015 08/11/2016 Gastroparesis 01/18/2015 03/02/2016 Gastroparesis 01/02/2015 01/02/2015 Diabetes mellitus type 2, controlled, without co mplications 12/27/2014 01/20/2016 DIABETES MELLITUS ADULT ONSET 01/18/2007 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, Machine Operations Supervisor, [place], [place] HYPERTENSION BENIGN 01/18/2007 08/11/2016 HYPERLIPIDEMIA 01/18/2007 08/11/2016 Hypothyroidism 01/18/2007 03/02/2016 EDEMA EXTREMITIES 01/18/2007 08/11/2016 Anemia 02/22/2019 Last Assessment & Plan: Currently stable documented as of this encounter (statuses as of 12/17/2021) [facility] History of Past illness Narrative* Problem Noted Date Resolved Date Hyperlipidemia 07/22/2015 08/11/2016 Gastroparesis 01/18/2015 03/02/2016 Gastroparesis 01/02/2015 01/02/2015 Diabetes mellitus type 2, controlled, without co mplications 12/27/2014 01/20/2016 DIABETES MELLITUS ADULT ONSET 01/18/2007 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, Machine Operations Supervisor, [place], [place] HYPERTENSION BENIGN 01/18/2007 08/11/2016 HYPERLIPIDEMIA 01/18/2007 08/11/2016 Hypothyroidism 01/18/2007 03/02/2016 EDEMA EXTREMITIES 01/18/2007 08/11/2016 Anemia 02/22/2019 Last Assessment & Plan: Currently stable documented as of this encounter (statuses as of 12/30/2021) [facility] History of Past illness Narrative* Problem Noted Date Resolved Date Hyperlipidemia 07/22/2015 08/11/2016 Gastroparesis 01/18/2015 03/02/2016 Gastroparesis 01/02/2015 01/02/2015 Diabetes mellitus type 2, controlled, without co mplications 12/27/2014 01/20/2016 DIABETES MELLITUS ADULT ONSET 01/18/2007 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, Machine Operations Supervisor, [place], [place] HYPERTENSION BENIGN 01/18/2007 08/11/2016 HYPERLIPIDEMIA 01/18/2007 08/11/2016 Hypothyroidism 01/18/2007 03/02/2016 EDEMA EXTREMITIES 01/18/2007 08/11/2016 Anemia 02/22/2019 Last Assessment & Plan: Currently stable documented as of this encounter (statuses as of 01/12/2022) [facility] History of Past illness Narrative* Problem Noted Date Resolved Date Hyperlipidemia 07/22/2015 08/11/2016 Gastroparesis 01/18/2015 03/02/2016 Gastroparesis 01/02/2015 01/02/2015 Diabetes mellitus type 2, controlled, without co mplications 12/27/2014 01/20/2016 DIABETES MELLITUS ADULT ONSET 01/18/2007 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, Machine Operations Supervisor, [place] HYPERTENSION BENIGN 01/18/2007 08/11/2016 HYPERLIPIDEMIA 01/18/2007 08/11/2016 Hypothyroidism 01/18/2007 03/02/2016 EDEMA EXTREMITIES 01/18/2007 08/11/2016 Anemia 02/22/2019 Last Assessment & Plan: Currently stable documented as of this encounter (statuses as of 01/26/2022) [facility] History of Past illness Narrative* Problem Noted Date Resolved Date Hyperlipidemia 07/22/2015 08/11/2016 Gastroparesis 01/18/2015 03/02/2016 Gastroparesis 01/02/2015 01/02/2015 Diabetes mellitus type 2, controlled, without co mplications 12/27/2014 01/20/2016 DIABETES MELLITUS ADULT ONSET 01/18/2007 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, Machine Operations Supervisor, [place] HYPERTENSION BENIGN 01/18/2007 08/11/2016 HYPERLIPIDEMIA 01/18/2007 08/11/2016 Hypothyroidism 01/18/2007 03/02/2016 EDEMA EXTREMITIES 01/18/2007 08/11/2016 Anemia 02/22/2019 Last Assessment & Plan: Currently stable documented as of this encounter (statuses as of 01/26/2022) [facility] History of Past illness Narrative* Problem Noted Date Resolved Date Hyperlipidemia 07/22/2015 08/11/2016 Gastroparesis 01/18/2015 03/02/2016 Gastroparesis 01/02/2015 01/02/2015 Diabetes mellitus type 2, controlled, without co mplications 12/27/2014 01/20/2016 DIABETES MELLITUS ADULT ONSET 01/18/2007 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, Machine Operations Supervisor, [place] HYPERTENSION BENIGN 01/18/2007 08/11/2016 HYPERLIPIDEMIA 01/18/2007 08/11/2016 Hypothyroidism 01/18/2007 03/02/2016 EDEMA EXTREMITIES 01/18/2007 08/11/2016 Anemia 02/22/2019 Last Assessment & Plan: Currently stable documented as of this encounter (statuses as of 02/06/2022) [facility] History of Past illness Narrative* Problem Noted Date Resolved Date Hyperlipidemia 07/22/2015 08/11/2016 Gastroparesis 01/18/2015 03/02/2016 Gastroparesis 01/02/2015 01/02/2015 Diabetes mellitus type 2, controlled, without co mplications 12/27/2014 01/20/2016 DIABETES MELLITUS ADULT ONSET 01/18/2007 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, Machine Operations Supervisor, [place], [place] HYPERTENSION BENIGN 01/18/2007 08/11/2016 HYPERLIPIDEMIA 01/18/2007 08/11/2016 Hypothyroidism 01/18/2007 03/02/2016 EDEMA EXTREMITIES 01/18/2007 08/11/2016 Anemia 02/22/2019 Last Assessment & Plan: Currently stable documented as of this encounter (statuses as of 02/06/2022) [facility]11-09-2015 History of Past illness Narrative* Problem Noted Date Resolved Date Hyperlipidemia 07/22/2015 08/11/2016 Gastroparesis 01/18/2015 03/02/2016 Gastroparesis 01/02/2015 01/02/2015 Diabetes mellitus type 2, controlled, without co mplications 12/27/2014 01/20/2016 DIABETES MELLITUS ADULT ONSET 01/18/2007 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, Machine Operations Supervisor, [place], [place] HYPERTENSION BENIGN 01/18/2007 08/11/2016 HYPERLIPIDEMIA 01/18/2007 08/11/2016 Hypothyroidism 01/18/2007 03/02/2016 EDEMA EXTREMITIES 01/18/2007 08/11/2016 Anemia 02/22/2019 Last Assessment & Plan: Currently stable documented as of this encounter (statuses as of 02/17/2022) [facility]11-09-2015 History of Past illness Narrative* Problem Noted Date Resolved Date Hyperlipidemia 07/22/2015 08/11/2016 Gastroparesis 01/18/2015 03/02/2016 Gastroparesis 01/02/2015 01/02/2015 Diabetes mellitus type 2, controlled, without co mplications 12/27/2014 01/20/2016 DIABETES MELLITUS ADULT ONSET 01/18/2007 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, Machine Operations Supervisor, [place] HYPERTENSION BENIGN 01/18/2007 08/11/2016 HYPERLIPIDEMIA 01/18/2007 08/11/2016 Hypothyroidism 01/18/2007 03/02/2016 EDEMA EXTREMITIES 01/18/2007 08/11/2016 Anemia 02/22/2019 Last Assessment & Plan: Currently stable documented as of this encounter (statuses as of 02/19/2022) [facility]11-09-2015 History of Past illness Narrative* Problem Noted Date Resolved Date Hyperlipidemia 07/22/2015 08/11/2016 Gastroparesis 01/18/2015 03/02/2016 Gastroparesis 01/02/2015 01/02/2015 Diabetes mellitus type 2, controlled, without co mplications 12/27/2014 01/20/2016 DIABETES MELLITUS ADULT ONSET 01/18/2007 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, Machine Operations Supervisor, [place] HYPERTENSION BENIGN 01/18/2007 08/11/2016 HYPERLIPIDEMIA 01/18/2007 08/11/2016 Hypothyroidism 01/18/2007 03/02/2016 EDEMA EXTREMITIES 01/18/2007 08/11/2016 Anemia 02/22/2019 Last Assessment & Plan: Currently stable documented as of this encounter (statuses as of 02/27/2022) [facility]11-09-[facility] History of Past illness Narrative* Problem Noted Date Resolved Date Hyperlipidemia 07/22/2015 08/11/2016 Gastroparesis 01/18/2015 03/02/2016 Gastroparesis 01/02/2015 01/02/2015 Diabetes mellitus type 2, controlled, without co mplications 12/27/2014 01/20/2016 DIABETES MELLITUS ADULT ONSET 01/18/2007 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, Machine Operations Supervisor, [place] HYPERTENSION BENIGN 01/18/2007 08/11/2016 HYPERLIPIDEMIA 01/18/2007 08/11/2016 Hypothyroidism 01/18/2007 03/02/2016 EDEMA EXTREMITIES 01/18/2007 08/11/2016 Anemia 02/22/2019 Last Assessment & Plan: Currently stable documented as of this encounter (statuses as of 03/11/2022) [facility]11-09-2015 History of Past illness Narrative* Problem Noted Date Resolved Date Hyperlipidemia 07/22/2015 08/11/2016 Gastroparesis 01/18/2015 03/02/2016 Gastroparesis 01/02/2015 01/02/2015 Diabetes mellitus type 2, controlled, without co mplications 12/27/2014 01/20/2016 DIABETES MELLITUS ADULT ONSET 01/18/2007 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, Machine Operations Supervisor, [place] HYPERTENSION BENIGN 01/18/2007 08/11/2016 HYPERLIPIDEMIA 01/18/2007 08/11/2016 Hypothyroidism 01/18/2007 03/02/2016 EDEMA EXTREMITIES 01/18/2007 08/11/2016 Anemia 02/22/2019 Last Assessment & Plan: Currently stable documented as of this encounter (statuses as of 04/06/2022) [facility]11-09-2015 History of Past illness Narrative* Problem Noted Date Resolved Date Hyperlipidemia 07/22/2015 08/11/2016 Gastroparesis 01/18/2015 03/02/2016 Gastroparesis 01/02/2015 01/02/2015 Diabetes mellitus type 2, controlled, without co mplications 12/27/2014 01/20/2016 DIABETES MELLITUS ADULT ONSET 01/18/2007 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, Machine Operations Supervisor, [place] HYPERTENSION BENIGN 01/18/2007 08/11/2016 HYPERLIPIDEMIA 01/18/2007 08/11/2016 Hypothyroidism 01/18/2007 03/02/2016 EDEMA EXTREMITIES 01/18/2007 08/11/2016 Anemia 02/22/2019 Last Assessment & Plan: Currently stable documented as of this encounter (statuses as of 04/09/2022) [facility]11-09-2015 History of Past illness Narrative* Problem Noted Date Resolved Date Hyperlipidemia 07/22/2015 08/11/2016 Gastroparesis 01/18/2015 03/02/2016 Gastroparesis 01/02/2015 01/02/2015 Diabetes mellitus type 2, controlled, without co mplications 12/27/2014 01/20/2016 DIABETES MELLITUS ADULT ONSET 01/18/2007 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, Machine Operations Supervisor, [place] HYPERTENSION BENIGN 01/18/2007 08/11/2016 HYPERLIPIDEMIA 01/18/2007 08/11/2016 Hypothyroidism 01/18/2007 03/02/2016 EDEMA EXTREMITIES 01/18/2007 08/11/2016 Anemia 02/22/2019 Last Assessment & Plan: Currently stable documented as of this encounter (statuses as of 08/14/2022) [facility]11-09-2015 History of Past illness Narrative* Problem Noted Date Resolved Date Hyperlipidemia 07/22/2015 08/11/2016 Gastroparesis 01/18/2015 03/02/2016 Gastroparesis 01/02/2015 01/02/2015 Diabetes mellitus type 2, controlled, without co mplications 12/27/2014 01/20/2016 DIABETES MELLITUS ADULT ONSET 01/18/2007 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, Machine Operations Supervisor, [place] HYPERTENSION BENIGN 01/18/2007 08/11/2016 HYPERLIPIDEMIA 01/18/2007 08/11/2016 Hypothyroidism 01/18/2007 03/02/2016 EDEMA EXTREMITIES 01/18/2007 08/11/2016 Anemia 02/22/2019 Last Assessment & Plan: Currently stable documented as of this encounter (statuses as of 08/17/2022) [facility]11-09-2015 History of Past illness Narrative* Problem Noted Date Resolved Date Hyperlipidemia 07/22/2015 08/11/2016 Gastroparesis 01/18/2015 03/02/2016 Gastroparesis 01/02/2015 01/02/2015 Diabetes mellitus type 2, controlled, without co mplications 12/27/2014 01/20/2016 DIABETES MELLITUS ADULT ONSET 01/18/2007 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, Machine Operations Supervisor, [place] HYPERTENSION BENIGN 01/18/2007 08/11/2016 HYPERLIPIDEMIA 01/18/2007 08/11/2016 Hypothyroidism 01/18/2007 03/02/2016 EDEMA EXTREMITIES 01/18/2007 08/11/2016 Anemia 02/22/2019 Last Assessment & Plan: Currently stable documented as of this encounter (statuses as of 08/28/2022) [facility]11-09-2015 History of Past illness Narrative* Problem Noted Date Resolved Date Hyperlipidemia 07/22/2015 08/11/2016 Gastroparesis 01/18/2015 03/02/2016 Gastroparesis 01/02/2015 01/02/2015 Diabetes mellitus type 2, controlled, without co mplications 12/27/2014 01/20/2016 DIABETES MELLITUS ADULT ONSET 01/18/2007 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, Machine Operations Supervisor, [place] HYPERTENSION BENIGN 01/18/2007 08/11/2016 HYPERLIPIDEMIA 01/18/2007 08/11/2016 Hypothyroidism 01/18/2007 03/02/2016 EDEMA EXTREMITIES 01/18/2007 08/11/2016 Anemia 02/22/2019 Last Assessment & Plan: Currently stable documented as of this encounter (statuses as of 09/21/2022) [facility]11-09-2015 History of Past illness Narrative* Problem Noted Date Resolved Date Hyperlipidemia 07/22/2015 08/11/2016 Gastroparesis 01/18/2015 03/02/2016 Gastroparesis 01/02/2015 01/02/2015 Diabetes mellitus type 2, controlled, without co mplications 12/27/2014 01/20/2016 DIABETES MELLITUS ADULT ONSET 01/18/2007 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, Machine Operations Supervisor, [place] HYPERTENSION BENIGN 01/18/2007 08/11/2016 HYPERLIPIDEMIA 01/18/2007 08/11/2016 Hypothyroidism 01/18/2007 03/02/2016 EDEMA EXTREMITIES 01/18/2007 08/11/2016 Anemia 02/22/2019 Last Assessment & Plan: Currently stable documented as of this encounter (statuses as of 10/08/2022) [facility]11-09-2015 History of Past illness Narrative* Problem Noted Date Resolved Date Hyperlipidemia 07/22/2015 08/11/2016 Gastroparesis 01/18/2015 03/02/2016 Gastroparesis 01/02/2015 01/02/2015 Diabetes mellitus type 2, controlled, without co mplications 12/27/2014 01/20/2016 DIABETES MELLITUS ADULT ONSET 01/18/2007 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, Machine Operations Supervisor, [place] HYPERTENSION BENIGN 01/18/2007 08/11/2016 HYPERLIPIDEMIA 01/18/2007 08/11/2016 Hypothyroidism 01/18/2007 03/02/2016 EDEMA EXTREMITIES 01/18/2007 08/11/2016 Anemia 02/22/2019 Last Assessment & Plan: Currently stable documented as of this encounter (statuses as of 11/10/2022) [facility]11-09-2015 History of Past illness Narrative* Problem Noted Date Resolved Date Hyperlipidemia 07/22/2015 08/11/2016 Gastroparesis 01/18/2015 03/02/2016 Gastroparesis 01/02/2015 01/02/2015 Diabetes mellitus type 2, controlled, without co mplications 12/27/2014 01/20/2016 DIABETES MELLITUS ADULT ONSET 01/18/2007 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, Machine Operations Supervisor, [place] HYPERTENSION BENIGN 01/18/2007 08/11/2016 HYPERLIPIDEMIA 01/18/2007 08/11/2016 Hypothyroidism 01/18/2007 03/02/2016 EDEMA EXTREMITIES 01/18/2007 08/11/2016 Anemia 02/22/2019 Last Assessment & Plan: Currently stable documented as of this encounter (statuses as of 12/04/2022) [facility]11-09-2015 History of Past illness Narrative* Problem Noted Date Resolved Date Hyperlipidemia 07/22/2015 08/11/2016 Gastroparesis 01/18/2015 03/02/2016 Gastroparesis 01/02/2015 01/02/2015 Diabetes mellitus type 2, controlled, without co mplications 12/27/2014 01/20/2016 DIABETES MELLITUS ADULT ONSET 01/18/2007 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, Machine Operations Supervisor, [place], [place] HYPERTENSION BENIGN 01/18/2007 08/11/2016 HYPERLIPIDEMIA 01/18/2007 08/11/2016 Hypothyroidism 01/18/2007 03/02/2016 EDEMA EXTREMITIES 01/18/2007 08/11/2016 Anemia 02/22/2019 Last Assessment & Plan: Currently stable documented as of this encounter (statuses as of 12/22/2022) [facility]11-09-2015 History of Past illness Narrative* Problem Noted Date Resolved Date Hyperlipidemia 07/22/2015 08/11/2016 Gastroparesis 01/18/2015 03/02/2016 Gastroparesis 01/02/2015 01/02/2015 Diabetes mellitus type 2, controlled, without co mplications 12/27/2014 01/20/2016 DIABETES MELLITUS ADULT ONSET 01/18/2007 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, Machine Operations Supervisor, [place] HYPERTENSION BENIGN 01/18/2007 08/11/2016 HYPERLIPIDEMIA 01/18/2007 08/11/2016 Hypothyroidism 01/18/2007 03/02/2016 EDEMA EXTREMITIES 01/18/2007 08/11/2016 Anemia 02/22/2019 Last Assessment & Plan: Currently stable documented as of this encounter (statuses as of 12/23/2022) [facility]11-09-2015 History of Past illness Narrative* Problem Noted Date Diagnosed Date Resolved Date Hyperlipidemia 07/22/2015 08/11/2016 Gastroparesis 01/18/2015 03/02/2016 Gastroparesis 01/02/2015 01/02/2015 Diabetes mellitus type 2, co ntrolled, without complications 12/27/2014 01/20/2016 DIABETES MELLITUS ADULT ONSET 01/18/2007 04/28/2012 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, Machine Operations Supervisor, [place] HYPERTENSION BENIGN 01/18/2007 08/11/20 16 HYPERLIPIDEMIA 01/18/2007 08/11/2016 Hypothyroidism 01/18/2007 03/02/2016 EDEMA EXTREMITIES 01/18/2007 08/11/2016 Anemia 02/22/2019 Last Assessment & Plan: Currently stable documented as of this encounter (statuses as of 07/26/2023) [facility]11-09-2015 History of Past illness Narrative* Problem Noted Date Diagnosed Date Resolved Date Hyperlipidemia 07/22/2015 08/11/2016 Gastroparesis 01/18/2015 03/02/2016 Gastroparesis 01/02/2015 01/02/2015 Diabetes mellitus type 2, co ntrolled, without complications 12/27/2014 01/20/2016 DIABETES MELLITUS ADULT ONSET 01/18/2007 04/28/2012 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, Machine Operations Supervisor, [place] HYPERTENSION BENIGN 01/18/2007 08/11/20 16 HYPERLIPIDEMIA 01/18/2007 08/11/2016 Hypothyroidism 01/18/2007 03/02/2016 EDEMA EXTREMITIES 01/18/2007 08/11/2016 Anemia 02/22/2019 Last Assessment & Plan: Currently stable documented as of this encounter (statuses as of 08/03/2023) [facility]11-09-2015 History of Past illness Narrative* Problem Noted Date Diagnosed Date Resolved Date Hyperlipidemia 07/22/2015 08/11/2016 Gastroparesis 01/18/2015 03/02/2016 Gastroparesis 01/02/2015 01/02/2015 Diabetes mellitus type 2, co ntrolled, without complications 12/27/2014 01/20/2016 DIABETES MELLITUS ADULT ONSET 01/18/2007 04/28/2012 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, Machine Operations Supervisor, [place] HYPERTENSION BENIGN 01/18/2007 08/11/20 16 HYPERLIPIDEMIA 01/18/2007 08/11/2016 Hypothyroidism 01/18/2007 03/02/2016 EDEMA EXTREMITIES 01/18/2007 08/11/2016 Anemia 02/22/2019 Last Assessment & Plan: Currently stable documented as of this encounter (statuses as of 08/06/2023) [facility]11-09-2015 History of Past illness Narrative* Problem Noted Date Diagnosed Date Resolved Date Hyperlipidemia 07/22/2015 08/11/2016 Gastroparesis 01/18/2015 03/02/2016 Gastroparesis 01/02/2015 01/02/2015 Diabetes mellitus type 2, co ntrolled, without complications 12/27/2014 01/20/2016 DIABETES MELLITUS ADULT ONSET 01/18/2007 04/28/2012 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, Machine Operations Supervisor, [place] HYPERTENSION BENIGN 01/18/2007 08/11/20 16 HYPERLIPIDEMIA 01/18/2007 08/11/2016 Hypothyroidism 01/18/2007 03/02/2016 EDEMA EXTREMITIES 01/18/2007 08/11/2016 Anemia 02/22/2019 Last Assessment & Plan: Currently stable documented as of this encounter (statuses as of 08/19/2023) [facility]11-09-2015 History of Past illness Narrative* Problem Noted Date Diagnosed Date Resolved Date Hyperlipidemia 07/22/2015 08/11/2016 Gastroparesis 01/18/2015 03/02/2016 Gastroparesis 01/02/2015 01/02/2015 Diabetes mellitus type 2, co ntrolled, without complications 12/27/2014 01/20/2016 DIABETES MELLITUS ADULT ONSET 01/18/2007 04/28/2012 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, Machine Operations Supervisor, [place] HYPERTENSION BENIGN 01/18/2007 08/11/20 16 HYPERLIPIDEMIA 01/18/2007 08/11/2016 Hypothyroidism 01/18/2007 03/02/2016 EDEMA EXTREMITIES 01/18/2007 08/11/2016 Anemia 02/22/2019 Last Assessment & Plan: Currently stable documented as of this encounter (statuses as of 11/05/2023) [facility] Diagnosis Deficiency of multiple nutrient elements Other nutritional deficiency Obstructive sleep apnea Obstructive sleep apnea (adult) (pediatric) Essential hypertension Unspecified essential hypertension Hyperlipidemia, unspecified hyperlipidemia type Class 3 severe obesity due to excess calories with serious comorbidity and body mass index (BMI) of 40.0 to 44.9 in adult ([facility]) Back pain, unspecified back location, unspecified back [...] apnea (adult) (pediatric) [facility]* Diagnosis REMIGIO (obstructive sleep apnea)- Primary Obstructive sleep apnea (adult) (pediatric) [facility] Diagnosis Medication management Encounter for long-term (current) use of other medications documented in this encounter [facility] note* Diagnosis REMIGIO (obstructive sleep apnea) Obstructive sleep apnea (adult) (pediatric) documented in this encounter [facility] note* Diagnosis Obstructive sleep apnea (adult) (pediatric)- Primary Migraine without status migrainosus, not intractable, unspecified migraine type Insomnia, unspecified type Class 3 severe obesity with body mass index (BMI) of 40.0 to 44.9 in adult, unspecified obesity type, unspecified whether serious comorbidity present (HCC) documented in this encounter [facility] note* Diagnosis Medication management Encounter for long-term (current) use of other medications Acquired hypothyroidism Unspecified hypothyroidism documented in this encounter [facility] note* Diagnosis Encounter for screening mammogram for breast cancer documented in this encounter [facility] note* Diagnosis Essential hypertension- Primary Unspecified essential hypertension Prediabetes Other abnormal glucose Mixed hyperlipidemia Acquired hypothyroidism Unspecified hypothyroidism Bipolar I disorder, most recent episode depressed (HCC) Bipolar I disorder, most recent episode (or current) depressed, unspecified documented in this encounter [facility] note* Diagnosis Obstructive sleep apnea (adult) (pediatric)- Primary Insomnia, unspecified type Class 3 severe obesity with body mass index (BMI) of 40.0 to 44.9 in adult, unspecified obesity type, unspecified whether serious comorbidity present (HCC) documented in this encounter [facility] note* Diagnosis Primary hypertension- Primary Unspecified essential hypertension REMIGIO on CPAP Deficiency of multiple nutrient elements Other nutritional deficiency Class 2 severe obesity due to excess calories with serious comorbidity and body mass index (BMI) of 35.0 to 35.9 in adult (HCC) High cholesterol Pure hypercholesterolemia documented in this encounter [facility] note* Diagnosis Essential hypertension- Primary Unspecified [...] unspecified Mixed hyperlipidemia documented in this encounter [facility] note* Diagnosis Obstructive sleep apnea syndrome- Primary Obstructive sleep apnea (adult) (pediatric) Insomnia, unspecified type Difficulty using biphasic positive airway pressure (BiPAP) machine documented in this encounter [facility] note* Diagnosis Primary hypertension- Primary Unspecified essential hypertension REMIGIO on CPAP Deficiency of multiple nutrient elements Other nutritional deficiency Hyperlipidemia, unspecified hyperlipidemia type Class 1 obesity due to excess calories with serious comorbidity and body mass index (BMI) of 33.0 to 33.9 in adult High vitamin D level Hypervitaminosis D documented in this encounter [facility] note* Diagnosis Encounter for screening mammogram for breast cancer documented in this encounter [facility] note* Diagnosis Acquired hypothyroidism Unspecified hypothyroidism documented in this encounter [facility] note* Diagnosis Burning sensation of feet- Primary Disturbance of skin sensation documented in this encounter [facility] note* Diagnosis REMIGIO on CPAP Primary hypertension Unspecified essential hypertension Deficiency of multiple nutrient elements Other nutritional deficiency Hyperlipidemia, unspecified hyperlipidemia type Class 2 severe obesity due to excess calories with serious comorbidity and body mass index (BMI) of 36.0 to 36.9 in adult documented in this encounter [facility] note* Diagnosis Migraine without aura and without status migrainosus, not intractable Migraine without aura, without mention of intractable migraine without mention of status migrainosus documented in this encounter [facility] Discharge instructions* Instructions* Joi Srivastava PA - [...] SCREENING SCREENING MAMMOGRAPHY BI 2-VIEW BREAST INC Ana Brown MD [address] [place] [address] [facility] [address] [place] [address] Referral ID Status Reason Start Date Expiration Date Visits Requested Visits Authorized [id number] Pending Review Auto-Generat ed Referral 08/13/2022 09/12/2023 [facility] Diagnostic Procedure Only (Routine) - Pending Review Specialty Diagnoses / Procedures Referred By Contac t Referred To Contact [facility] Diagnoses Encounter for screening mammogram for breast cancer Procedures ADALBERTO SCREENING SCREENING MAMMOGRAPHY BI 2-VIEW BREAST INC Ana Brown MD [address] [place] [address] [facility] [address] [place] [address] Referral ID Status Reason Start Date Expiration Date Visits Requested Visits Authorized [id number] Pending Review Auto-Generat ed Referral 07/21/2023 08/19/2024 1 1 [facility] Advance Directives Documents on File Type Date Recorded Patient Convertible Sofa Bedspring Tester Expl anation ACP-Advance Directive ACP-Power of Fha Underwriter Latest Code Status on File Code Status Date Activated Date Inactivated Comments Full Code 10/13/2019 7:10 AM 10/13/2019 12:13 PM Latest Code Status on File Code Status Date Activated Date Inactivated Comments Full Code 11/18/2021 10:58 AM Full Code 10/13/2019 7:10 AM 10/13/2019 12:13 PM Documents on File Type Date Recorded Patient Convertible Sofa Bedspring Tester Expl anation Advance Directives and Living Will Power of Fha Underwriter Latest Code Status on File Code Status Date Activated Date Inactivated Comments Full Code 10/13/2019 7:10 AM Documents on File Type Date Recorded Patient Convertible Sofa Bedspring Tester Expl anation Advance Directive(s) 03/18/2016 12:26 PM [...] Care Teams (unrecognized sec tion and content) Finisher Operator Relationship Specialty Start Date End Date Ana Guo MD [address] [place] [address] PCP - General Internal Medicine 08/24/19 Finisher Operator Relationship Specialty Start Date End Date Ana Guo MD [address] [place] [address] PCP - General Internal Medicine 08/24/19 Finisher Operator Relationship Specialty Start Date End Date Ana Guo MD [address] [place] [address] PCP - General Internal Medicine 08/24/19 Finisher Operator Relationship Specialty Start Date End Date Ana Guo MD [address] [place] [place] [address] PCP - General Internal Medicine 08/24/19 Finisher Operator Relationship Specialty Start Date End Date Ana Guo MD [address] [place] [address] PCP - General Internal Medicine 06/25/16 Finisher Operator Relationship Specialty Start Date End Date Ana Guo MD [address] [place] [address] PCP - General Internal Medicine 06/25/16 Finisher Operator Relationship Specialty Start Date End Date Ana Guo MD [address] [place] [place] [address] PCP - General Internal Medicine 08/24/19 Finisher Operator Relationship Specialty Start Date End Date Ana Guo MD [address] [place] [address] PCP - General Internal Medicine 06/25/16 Finisher Operator Relationship Specialty Start Date End Date Ana Guo MD [address] [place] [address] PCP - General Internal Medicine 08/24/19 Finisher Operator Relationship Specialty Start Date End Date Ana Guo MD [address] [place] [address] PCP - General Internal Medicine 06/25/16 Finisher Operator Relationship Specialty Start Date End Date Ana Guo MD [address] [place] [address] PCP - General Internal Medicine 06/25/16 Finisher Operator Relationship Specialty Start Date End Date Ana Guo MD [address] [place] [address] PCP - General Internal Medicine 06/25/16 Finisher Operator Relationship Specialty Start Date End Date Ana Guo MD [address] [place] [address] PCP - General Internal Medicine 06/25/16 Finisher Operator Relationship Specialty Start Date End Date Ana Guo MD [address] [place] [address] PCP - General Internal Medicine 08/24/19 Finisher Operator Relationship Specialty Start Date End Date Ana Guo MD [address] [place] [address] PCP - General Internal Medicine 06/25/16 Finisher Operator Relationship Specialty Start Date End Date Ana Guo MD [address] [place] [address] PCP - General Internal Medicine 06/25/16 Finisher Operator Relationship Specialty Start Date End Date nAa Guo MD [address] [place] [address] PCP - General Internal Medicine 06/25/16 Finisher Operator Relationship Specialty Start Date End Date Ana Guo MD [address] [place] [address] PCP - General Internal Medicine 06/25/16 Finisher Operator Relationship Specialty Start Date End Date Ana Guo MD [address] [place] [address] PCP - General 08/24/19 Saman Moctezuma MD [address] [place] [address] Surgeon Bariatric Surgery 08/05/22 Garret Ocampo PA [address] [place] [address] Physician Certified Nurse Midwife Bariatrics 08/05/22 Finisher Operator Relationship Specialty Start Date End Date Ana Guo MD [address] [place] [address] PCP - General Internal Medicine 06/25/16 Finisher Operator Relationship Specialty Start Date End Date Ana Guo MD [address] [place] [address] PCP - General Internal Medicine 06/25/16 Finisher Operator Relationship Specialty Start Date End Date Ana Guo MD [address] [place] [address] PCP - General 08/24/19 Saman Moctezuma MD [address] [place] [address] Surgeon Bariatric Surgery 08/05/22 Garret Ocampo PA [address] [place] [address] Physician Certified Nurse Midwife Bariatrics 08/05/22 Finisher Operator Relationship Specialty Start Date End Date Ana Guo MD [address] [place] [address] PCP - General 08/24/19 Saman Moctezuma MD [address] [place] [address] Surgeon Bariatric Surgery 08/05/22 Garret Ocampo PA [address] [place] [address] Physician Certified Nurse Midwife Bariatrics 08/05/22 Finisher Operator Relationship Specialty Start Date End Date Ana Guo MD [address] [place] [address] PCP - General Internal Medicine 06/25/16 Finisher Operator Relationship Specialty Start Date End Date Ana Guo MD [address] [place] [address] PCP - General Internal Medicine 06/25/16 Finisher Operator Relationship Specialty Start Date End Date Ana Guo MD [address] [place] [address] PCP - General Internal Medicine 06/25/16 Finisher Operator Relationship Specialty Start Date End Date Ana Guo MD [address] [place] [address] PCP - General Internal Medicine 06/25/16 Finisher Operator Relationship Specialty Start Date End Date Ana Guo MD [address] [place] [address] PCP - General 08/24/19 Saman Moctezuma MD [address] [place] [address] Surgeon Bariatric Surgery 08/05/22 Garret Ocampo PA [address] [place], [place] [id number] Physician Certified Nurse Midwife Bariatrics 08/05/22 Finisher Operator Relationship Specialty Start Date End Date Ana Guo MD [address] [place] [address] PCP - General Internal Medicine 06/25/16 Ordered Prescriptions (unrec ognized section and content) [...] IntraDERmal, ONCE PRN, IV start, Starting on e 11/18/21 at 1058, For 1 dose, Pre-op (day of surgery) meperidine (DEMEROL) injection 12.5 mg 12.5 mg, IntraVENous, EVERY 5 MIN PRN, Shivering, , Starting on 11/18/21 at 1236, May give every 5 minutes to max of 50mg., PACU only ondansetron (ZOFRAN) injection 4 mg 4 mg, IntraVENous, ONCE PRN, Nausea, Starting on e 11/18/21 at 1236, For 1 dose, Initial antiemetic therapy., PACU only oxyCODONE (ROXICODONE) immediate release tablet 5 mg (COMPLETED) 5 mg, Oral, PRN, Pain Moderate (4-6), Starting on e 11/18/21 at 1236, For 1 dose, PHASE II, PACU only 1512 (Given - Provid er: Rubina Key RN) sodium chloride flush 0.9 % injection 5-40 mL 5-40 mL, IntraVENous, PRN, Line Care, Starting on e 11/18/21 at 1058, For Line Patency: Peripheral IV [...] DATE CREATED AUTHOR AUTHOR'S ORGANIZ ATION 04/05/2022 [facility] DATE CREATED AUTHOR AUTHOR'S ORGANIZ ATION 09/09/2023 [facility] DATE CREATED AUTHOR AUTHOR'S ORGANIZ ATION 10/12/2023 [facility] Source Comments (unrecognize d section and content) In the event this informatio n is protected by the Federal Confidentiality of Alcohol and Drug Abuse Patient Records regulations: The Federal rules restrict any use of the information to criminally investigate or prosecute any alcohol or drug abuse patient.[facility] the event this information is protected by the Federal Confidentiality of Alcohol and Drug Abuse Patient Records regulations: The Federal rules restrict any use of the information to criminally investigate or prosecute any alcohol or drug abuse patient.[facility] Hospital[facility] the event this information is protected by the Federal Confidentiality of Alcohol and Drug Abuse Patient Records regulations: The Federal rules restrict any use of the information to criminally investigate or prosecute any alcohol or drug abuse patient.[facility] Hospital[facility] the event this information is protected by the Federal Confidentiality of Alcohol and Drug Abuse Patient Records regulations: The Federal rules restrict any use of the information to criminally investigate or prosecute any alcohol or drug abuse patient.[facility] Hospital[facility] the event this information is protected by the Federal Confidentiality of Alcohol and Drug Abuse Patient Records regulations: The Federal rules restrict any use of the information to criminally investigate or prosecute any alcohol or drug abuse patient.[facility] Hospital[facility] the event this information is protected by the Federal Confidentiality of Alcohol and Drug Abuse Patient Records regulations: The Federal rules restrict any use of the information to criminally investigate or prosecute any alcohol or drug abuse patient.[facility] HospitalIn the event this information is protected by the Federal Confidentiality of Alcohol and Drug Abuse Patient Records regulations: The Federal rules restrict any use of the information to criminally investigate or prosecute any alcohol or drug abuse patient.[facility] HospitalIn the event this information is protected by the Federal Confidentiality of Alcohol and Drug Abuse Patient Records regulations: The Federal rules restrict any use of the information to criminally investigate or prosecute any alcohol or drug abuse patient.[facility] HospitalIn the event this information is protected by the Federal Confidentiality of Alcohol and Drug Abuse Patient Records regulations: The Federal rules restrict any use of the information to criminally investigate or prosecute any alcohol or drug abuse patient.[facility] HospitalIn the event this information is protected by the Federal Confidentiality of Alcohol and Drug Abuse Patient Records regulations: The Federal rules restrict any use of the information to criminally investigate or prosecute any alcohol or drug abuse patient.[facility] HospitalIn the event this information is protected by the Federal Confidentiality of Alcohol and Drug Abuse Patient Records regulations: The Federal rules restrict any use of the information to criminally investigate or prosecute any alcohol or drug abuse patient.[facility] HospitalIn the event this information is protected by the Federal Confidentiality of Alcohol and Drug Abuse Patient Records regulations: The Federal rules restrict any use of the information to criminally investigate or prosecute any alcohol or drug abuse patient.[facility] HospitalIn the event this information is protected by the Federal Confidentiality of Alcohol and Drug Abuse Patient Records regulations: The Federal rules restrict any use of the information to criminally investigate or prosecute any alcohol or drug abuse patient.[facility] HospitalIn the event this information is protected by the Federal Confidentiality of Alcohol and Drug Abuse Patient Records regulations: The Federal rules restrict any use of the information to criminally investigate or prosecute any alcohol or drug abuse patient.[facility] HospitalIn the event this information is protected by the Federal Confidentiality of Alcohol and Drug Abuse Patient Records regulations: The Federal rules restrict any use of the information to criminally investigate or prosecute any alcohol or drug abuse patient.[facility] HospitalIn the event this information is protected by the Federal Confidentiality of Alcohol and Drug Abuse Patient Records regulations: The Federal rules restrict any use of the information to criminally investigate or prosecute any alcohol or drug abuse patient.[facility] HospitalIn the event this information is protected by the Federal Confidentiality of Alcohol and Drug Abuse Patient Records regulations: The Federal rules restrict any use of the information to criminally investigate or prosecute any alcohol or drug abuse patient.[facility] HospitalIn the event this information is protected by the Federal Confidentiality of Alcohol and Drug Abuse Patient Records regulations: The Federal rules restrict any use of the information to criminally investigate or prosecute any alcohol or drug abuse patient.[facility] HospitalIn the event this information is protected by the Federal Confidentiality of Alcohol and Drug Abuse Patient Records regulations: The Federal rules restrict any use of the information to criminally investigate or prosecute any alcohol or drug abuse patient.[facility] HospitalIn the event this information is protected by the Federal Confidentiality of Alcohol and Drug Abuse Patient Records regulations: The Federal rules restrict any use of the information to criminally investigate or prosecute any alcohol or drug abuse patient.[facility] HospitalIn the event this information is protected by the Federal Confidentiality of Alcohol and Drug Abuse Patient Records regulations: The Federal rules restrict any use of the information to criminally investigate or prosecute any alcohol or drug abuse patient.[facility] HospitalIn the event this information is protected by the Federal Confidentiality of Alcohol and Drug Abuse Patient Records regulations: The Federal rules restrict any use of the information to criminally investigate or prosecute any alcohol or drug abuse patient.[facility] HospitalIn the event this information is protected by the Federal Confidentiality of Alcohol and Drug Abuse Patient Records regulations: The Federal rules restrict any use of the information to criminally investigate or prosecute any alcohol or drug abuse patient.[facility] HospitalIn the event this information is protected by the Federal Confidentiality of Alcohol and Drug Abuse Patient Records regulations: The Federal rules restrict any use of the information to criminally investigate or prosecute any alcohol or drug abuse patient.[facility] HospitalIn the event this information is protected by the Federal Confidentiality of Alcohol and Drug Abuse Patient Records regulations: The Federal rules restrict any use of the information to criminally investigate or prosecute any alcohol or drug abuse patient.[facility] HospitalIn the event this information is protected by the Federal Confidentiality of Alcohol and Drug Abuse Patient Records regulations: The Federal rules restrict any use of the information to criminally investigate or prosecute any alcohol or drug abuse patient.[facility] HospitalIn the event this information is protected by the Federal Confidentiality of Alcohol and Drug Abuse Patient Records regulations: The Federal rules restrict any use of the information to criminally investigate or prosecute any alcohol or drug abuse patient.[facility] HospitalIn the event this information is protected by the Federal Confidentiality of Alcohol and Drug Abuse Patient Records regulations: The Federal rules restrict any use of the information to criminally investigate or prosecute any alcohol or drug abuse patient.[facility] Reason for Visit (unrecogniz ed section and content) Reason Onset Date Comments Refill Request 01/09/2022 Reason Comments PSG results 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 [employer] [facility]. provides no warranty or guarantee of the accuracy or completeness of information in this document.
[2023-11-12 06:47] LABS: Absolute Neutrophil Count 2.5 X10^3/uL (2.0-7.7); Basophil# 0.03 X10^3/uL; Basophil% 0.6 % (0-1); Eosinophil# 0.01 X10^3/uL; Eosinophils% 0.2 % (0-5); Hematocrit 39.5 % (37-47); Hemoglobin 12.7 g/dL (12.0-15.0); Mean Corp Hgb Conc 32.2 g/dL (32-36); Mean Corpuscular Hgb 31.5 pg (27.0-32.0); Mean Platelet Vol. 9.8 fl (6.2-12.0); Monocyte# 0.36 X10^3/uL; Monocyte% 7.4 % (0-10); NRBC Flagged by Analyzer 0 % (0-5); Neutrophil # 2.54 X10^3/uL (2.7-7.7); Neutrophil % 52.2 % (47-70); Platelet Count 256 K/mm3 (150-450); RBC Distribution Width CV 12.6 % (11.6-14.6); RBC Distribution Width SD 45.5 fl (35.1-43.9); Red Blood Count 4.03 M/mm3 (4.2-5.4); White Blood Count 4.9 K/mm3 (4.4-11.0)
[2023-11-12 06:55] LABS: Erythrocyte Sedimentation Rate 4 mm/hr (0-30)
[2023-11-12 07:16] LABS: ALB/GLOB Ratio 1.1 RATIO (0.9-2.4); AST(SGOT) 27 U/L (15-37); Alanine Aminotransfer ALT/SGPT 26 U/L (13-56); Albumin, Serum 3.7 g/dL (3.2-5.0); Alkaline Phosphatase 79 U/L (45-117); Anion Gap 4 (5-15); BUN 5 mg/dL (7-18); BUN/Creat Ratio 7.5 RATIO (10-20); CRP < 2.90 mg/L (0.0-3.0); Calcium,Total 10.2 mg/dL (8.5-10.1); Chloride 105 mmol/L (98-107); Creatinine, Serum 0.67 mg/dL (0.55-1.02); EST Glomerular Filtration Rate 98 mL/min (>60); Est Glom Filt Rate - Afr Amer 118 mL/min (>60); Globulin 3.3 g/dL (2.2-4.2); Glucose 96 mg/dL (74-106); Potassium 3.7 mmol/L (3.5-5.1); Sodium Level 138 mmol/L (136-145)
[2023-11-15 12:08] LABS: Anti-dsDNA Ab <1 IU/mL (0-9)
[2023-11-15 15:08] LABS: Complement C3 165 mg/dL (82-167); PROEL- A/G Ratio 1.2 (0.7-1.7); PROEL- Albumin 3.6 g/dL (2.9-4.4); PROEL- Alpha-1 Globulin 0.3 g/dL (0.0-0.4); PROEL- Alpha-2 Globulin 0.8 g/dL (0.4-1.0); PROEL- Beta Globulin 1.2 g/dL (0.7-1.3); PROEL- Gamma Globulin 0.7 g/dL (0.4-1.8); PROEL- TOTAL PROTEIN 6.6 g/dL (6.0-8.5); PROEL-M-Spike Not Observed g/dL (Not Observed)
== END | disposition home or self-care (01) ==
LOC: LAB 06:10
PROVIDERS: PCP Internal Medicine; Referring Provider Internal Medicine Rheumatology; Visit Provider Internal Medicine Rheumatology
DX: M35.01 Sjogren syndrome with keratoconjunctivitis (principal)
CPT/HCPCS: 36415; 80053; 84165; 85025; 85652; 86140; 86160; 86225

== ENCOUNTER → 2024-01-21 | Outpatient (CLI) | payer OTHER, SELFPAY ==
[2024-01-21 06:57] LABS: AST(SGOT) 26 U/L (15-37); Alanine Aminotransfer ALT/SGPT 32 U/L (13-56); Albumin, Serum 3.7 g/dL (3.2-5.0); Alkaline Phosphatase 79 U/L (45-117); Anion Gap 7 (5-15); BUN 7 mg/dL (7-18); BUN/Creat Ratio 11.1 RATIO (10-20); Calcium,Total 9.5 mg/dL (8.5-10.1); Chloride 102 mmol/L (98-107); Creatinine, Serum 0.63 mg/dL (0.55-1.02); EST Glomerular Filtration Rate 104 mL/min (>60); Est Glom Filt Rate - Afr Amer 125 mL/min (>60); Globulin 3.6 g/dL (2.2-4.2); Glucose 106 mg/dL (74-106); Magnesium 2.2 mg/dL (1.6-2.6); Potassium 3.9 mmol/L (3.5-5.1); Protein, Total 7.3 g/dL (6.4-8.2); Sodium Level 139 mmol/L (136-145)
[2024-01-21 08:23] LABS: Vitamin B12 1231 pg/mL (211-911)
[2024-01-21 10:55] LABS: Hemoglobin A1c 4.6 % (3.8-5.6)
[2024-01-25 00:07] LABS: Copper, Serum or Plasma 120 ug/dL (80-158)
== END | disposition home or self-care (01) ==
LOC: LAB 06:07
PROVIDERS: PCP Internal Medicine; Referring Provider Internal Medicine Endocrinology, Diabetes & Metabolism; Visit Provider Internal Medicine Endocrinology, Diabetes & Metabolism
DX: E11.65 Type 2 diabetes mellitus with hyperglycemia (principal); E11.42 Type 2 diabetes mellitus with diabetic polyneuropathy; I10 Essential (primary) hypertension; E78.2 Mixed hyperlipidemia
CPT/HCPCS: 36415; 80053; 82525; 82607; 83036; 83735

== ENCOUNTER → 2024-06-09 | Outpatient (CLI) | payer OTHER, SELFPAY ==
[2024-06-09 07:03] LABS: Absolute Lymphocyte Count 2.14 X10^3/uL (0.83-4.51); Absolute Neutrophil Count 2.8 X10^3/uL (2.0-7.7); Basophil# 0.03 X10^3/uL; Basophil% 0.6 % (0-1); Hematocrit 42.5 % (37-47); Hemoglobin 13.7 g/dL (12.0-15.0); Lymphocyte # 2.14 X10^3/ul (0.83-4.51); Lymphocyte % 39.9 % (19-41); Mean Corp Hgb Conc 32.2 g/dL (32-36); Mean Corpuscular Hgb 29.8 pg (27.0-32.0); Mean Corpuscular Volume 92.6 fL (81-99); Mean Platelet Vol. 9.9 fl (6.2-12.0); Monocyte# 0.43 X10^3/uL; NRBC Flagged by Analyzer 0 % (0-5); Neutrophil # 2.75 X10^3/uL (2.7-7.7); Neutrophil % 51.1 % (47-70); Platelet Count 295 K/mm3 (150-450); RBC Distribution Width CV 12.6 % (11.6-14.6); Red Blood Count 4.59 M/mm3 (4.2-5.4); White Blood Count 5.4 K/mm3 (4.4-11.0)
[2024-06-09 08:32] LABS: AST(SGOT) 31 U/L (15-37); Alanine Aminotransfer ALT/SGPT 40 U/L (13-56); Albumin, Serum 3.7 g/dL (3.2-5.0); Alkaline Phosphatase 81 U/L (45-117); Anion Gap 7 (5-15); BUN 3 mg/dL (7-18); BUN/Creat Ratio 5.2 RATIO (10-20); Calcium,Total 9.1 mg/dL (8.5-10.1); Chloride 98 mmol/L (98-107); Creatinine, Serum 0.57 mg/dL (0.55-1.02); EST Glomerular Filtration Rate 116 mL/min (>60); Est Glom Filt Rate - Afr Amer 140 mL/min (>60); Globulin 3.6 g/dL (2.2-4.2); Glucose 93 mg/dL (74-106); Potassium 2.6 mmol/L (3.5-5.1); Protein, Total 7.3 g/dL (6.4-8.2); Sodium Level 136 mmol/L (136-145)
== END | disposition home or self-care (01) ==
LOC: LAB 06:10
PROVIDERS: PCP Internal Medicine; Referring Provider Internal Medicine Rheumatology; Visit Provider Internal Medicine Rheumatology
DX: Z79.899 Other long term (current) drug therapy (principal)
CPT/HCPCS: 36415; 80053; 85025

== ENCOUNTER → 2024-10-12 | Outpatient (CLI) | payer OTHER, SELFPAY ==
--- NOTE | 2024-10-12 16:39 | RAD_ITS ---
PROCEDURE: FINGER(S) MIN 2 VIEWS REASON FOR EXAM: Painful cyst, reportedly located of the distal interphalangeal joint region. TECHNIQUE: Three-view left 2nd finger COMPARISON: None RAD/Finger(s) Min 2 Views IMPRESSION: Mild degenerative changes are seen in the left 2nd distal interphalangeal joint . Soft tissue prominence is seen the medial aspect of the distal interphalangeal joint. No osseous erosive process is seen. No fracture, dislocation, or other significant osseous changes are noted.. Reading Location: [id number]
== END | disposition home or self-care (01) ==
LOC: RAD 16:35
PROVIDERS: PCP Internal Medicine; Referring Provider Surgery Plastic and Reconstructive Surgery; Visit Provider Surgery Plastic and Reconstructive Surgery
DX: M67.449 Ganglion, unspecified hand (principal)
CPT/HCPCS: 73140

== ENCOUNTER 2024-11-15 08:57 | Day surgery (SDC) | payer OTHER, SELFPAY ==
[2024-11-15] VITALS (7 sets, daily range): BP systolic 135–141; BP diastolic 77–88; PULSE 76–82; RESP 16; TEMP 36.4–36.8; O2SAT 95–100; BMI 31.3
--- NOTE | 2024-11-15 08:55 | PCM.HP.STD ---
HPI - General HPI Narrative Annie Evangelista is a 58 YO FM female referred by [facility] for a cyst on the left index finger. Cyst has been present for months and does not drain. No infection. 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 Pt is a previous smoker, quit 22 years ago, denies vaping,edibles. Pt denies any family history of blood disorders or blood clots. Pt has a history of gastric banding and gastric sleeve, pt reports currently taking Mournjaro for weight loss. Current Encounter (DATE OF SURGERY H&P UPDATE): I saw and examined the patient this morning in pre-operative holding. We discussed risks and benefits of today's surgery and they would like to proceed. NO CHANGE in health history since last seen and evaluated EXCEPT the cyst has drained some fluid. Ready to proceed with surgery. [facility] Medical History Wears glasses Thyroid disease Back pain Injury of head and neck History of hiatal hernia Gastric reflux Sleep apnea History of echocardiogram JINNY (generalized anxiety disorder) Bipolar II disorder Sjogrens syndrome Fibromyalgia Vitamin deficiency Pneumonia Osteoarthritis Neuropathy IBS (irritable bowel syndrome) High triglycerides High cholesterol Hypertension Migraines Gastrointestinal problem Diabetes Carpal tunnel syndrome Bone fracture Back problem Arthritis Anemia Home Medications ?Medication ?Instructions ?Recorded ?Last Taken ?Type calcium 600 mg (as 1 tab PO DAILY@0800 06/23/13 Unknown History carbonate)-vitamin D3 20 mcg (800 unit) tablet (Caltrate with Vitamin D3) cholecalciferol (vitamin D3) 50 2,000 unit PO DAILY 06/23/13 Unknown History mcg (2,000 unit) tablet (Vitamin D3) eletriptan 20 mg tablet (Relpax) 20 mg PO .X1 PRN 06/23/13 Unknown History sodium fluoride 1.1 %-potassium 100 ml DT DAILY 06/23/13 Unknown History nitrate 5 % dental paste (PreviDent 5000 Sensitive) cevimeline 30 mg capsule (Evoxac) 30 mg PO BID 08/09/23 Unknown History hydrochlorothiazide 12.5 mg capsule 12.5 mg PO DAILY 08/09/23 Unknown History hydroxychloroquine 200 mg tablet 200 mg PO BID 08/09/23 Unknown History (Plaquenil) leflunomide 20 mg tablet 20 mg PO DAILY 08/09/23 Unknown History levothyroxine 88 mcg tablet 88 mcg PO MOWEFR 08/09/23 11/15/24 History (Synthroid) lisinopril 20 mg tablet 20 mg PO DAILY 08/09/23 Unknown History metoprolol tartrate 25 mg tablet 12.5 mg PO DAILY 08/09/23 11/15/24 History multivitamin 1 tab PO DAILY 08/09/23 Unknown History omeprazole 20 mg capsule,delayed 20 mg PO DAILY 08/09/23 11/15/24 History release potassium chloride 10 mEq 10 meq PO BID 08/09/23 Unknown History tablet,extended release pravastatin 80 mg tablet 80 mg PO QHS 08/09/23 Unknown History sulfasalazine 500 mg tablet 1 g PO BID 08/09/23 Unknown History aripiprazole 2 mg tablet 4 mg (2 x 2 mg) PO DAILY 90 days 06/05/24 Unknown Rx #180 tabs citalopram 20 mg tablet 30 mg (1.5 x 20 mg) PO DAILY 90 06/05/24 Unknown Rx days #135 tabs cyclobenzaprine 10 mg tablet 10 mg PO BID PRN muscle spasm 10/12/24 Unknown History tirzepatide 7.5 mg/0.5 mL 7.5 mg subcut QWEEK 10/12/24 11/08/23 History subcutaneous pen injector (Jimmy) gabapentin 400 mg capsule 400 mg PO 3XD 11/08/24 11/15/24 History levothyroxine 44 mcg capsule 44 mcg PO SUTUTHSA 11/08/24 Unknown History Allergy/AdvReac Type Severity Reaction Status Date / Time sumatriptan (From Imitrex) AdvReac Intermediate Other Verified 11/15/24 09:13 sumatriptan succinate (From AdvReac Intermediate Other Verified 11/15/24 09:13 Imitrex) Family History Mother Anxiety Breast cancer Cancer Diabetes Hypertension High cholesterol Psychiatric care Uterine cancer Father Arthritis Diabetes Hypertension High cholesterol Osteoporosis CVA (cerebral vascular accident) Other Colon cancer Depression Mental disorder Surgical History Hx of cervical spine surgery H/O gastric sleeve Previous back surgery History of carpal tunnel surgery of left wrist Gastric banding status H/O partial thyroidectomy Hx of arthroscopic knee surgery Hx of tonsillectomy Social History Smoking Status: Former smoker how long ago did patient quit smoking: quit 22 years ago alcohol intake: current details: 1-2 drinks, 1-2x month substance use type: does not use what type of physical activity do you participate in: walking frequency: 3-4 times per week additional social history: pt denies vaping, denies edibles, denies marijuana use, denies aspirin and ibuprofen use. Physical Exam Narrative Left Upper Extremity Inspection: Mucous cyst left index finger over the eponychium. No signs of infection and no active drainage. Palpation: No tenderness to palpation Motor: Able to bend and extend all MP, PIP, and DIP joints. Sensory: Intact to light touch on the radial and ulnar borders. Vascular: Finger tips are warm and well perfused with <2 second capillary refill. Assessment & Plan Assessment/Plan (1) Mucous cyst of finger: PLAN: I talked the patient extensively about the risks of surgery, including bleeding, infection, damage to surrounding structures, surgical site dehiscence and wound formation, need for wound care, need for repeat operations, failure to obtain the desired result, wound healing problems, joint infection, and the risks of anesthesia. The benefits and alternatives of this surgery were also discussed. We talked specifically about excision of the cyst by opening at the DIP crease dorsally and excising the cyst stalk/osteophytes and leaving the cyst skin to heal in/go away over time (no direct cyst excision). Discussed immobilization in DIP extension with splint for 1 month post-op. All of their questions were answered, and they agreed to proceed with surgery. Would plan for local and some sedation for anesthesia (patient happy with that plan). INTERVAL H&P PLAN, DATE OF SURGERY: We will proceed with surgery today. I re-iterated all of the above risks to the patient, including return of the cyst. She would like to proceed. Understands post-operative plan as well as plan for excision underneath cyst to get stock/debride osteophytes and let cyst involute over time.
--- NOTE | 2024-11-15 09:13 | PCM.PRE.AN2 ---
ASA Classification* ASA Classification ASA Classification: 2 Assessment & Plan Anesthesia* Anesthesia Assessment Anesthesia Assessment: Discussed sedation and/or anesthesia options, risks, benefits, and alternatives with patient/parents/legal guardian/POA. Questions invited. The patient/parents/legal guardian/POA seems to understand and agrees to proceed with anesthesia plan. Reviewed the physical assessment, medical history, allergy history and patient home medications list prior to surgery/procedure/anesthetic and documented any changes. Performed airway and anesthesia risk assessments. Anesthesia Type Anesthesia Type: MAC Anesthesia Focused Assessment* Airway Assessment Mouth opens: >3 cm Mallampati Score: II Focused Labs Anesthesia Preop lab: CBC WBC 5.4 K/mm3 (4.4-11.0) 06/09/24 06:12 06/09/24 RBC 4.59 M/mm3 (4.2-5.4) 06/09/24 06:12 06/09/24 Hgb 13.7 g/dL (12.0-15.0) 06/09/24 06:12 06/09/24 Hct 42.5 % (37-47) 06/09/24 06:12 06/09/24 Plt Count 295 K/mm3 (150-450) 06/09/24 06:12 06/09/24 CHEMISTRY Potassium 2.6 mmol/L (3.5-5.1) L* 06/09/24 06:12 06/09/24 Sodium 136 mmol/L (136-145) 06/09/24 06:12 06/09/24 Magnesium 2.2 mg/dL (1.6-2.6) 01/21/24 06:08 01/21/24 Phosphorus 3.6 mg/dL (2.5-4.9) 04/15/19 07:13 04/15/19 BUN 3 mg/dL (7-18) L 06/09/24 06:12 06/09/24 Creatinine 0.57 mg/dL (0.55-1.02) 06/09/24 06:12 06/09/24 Glucose 93 mg/dL (74-106) 06/09/24 06:12 06/09/24 POC Glucose 76 mg/dL (70-110) 02/16/13 11:34 02/16/13 TSH 1.68 uIU/mL (0.358-3.74) 10/29/23 06:10 10/29/23 COAG Pre-Assessment Diagnosis/Proposed Procedure Planned Operative Procedure(s): (L) Excision mucous cyst left index finger Anesthesia History 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 When Was Last Pacemaker Check QUESTION #4 FULL TEXT: You/Your Family Experience fever (hyperthermia) with Anesthesia Last Oral Intake Last Oral intake: Last Oral Intake NPO since Meds taken in AM with sips of water? 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 Female Yes 11/08/24 10:25 HX of Motion Sickness No 11/08/24 10:25 HX of N/V After Surgery No 11/08/24 10:25 Non-Smoker Yes 11/08/24 10:25 Duration of Surgery greater No 11/08/24 10:25 than 60 minutes Number of Risk Factors 2 11/08/24 10:25 PONV Score Moderate Risk 11/08/24 10:25 Height & Weight Height & Weight: Anesthesia: Height & Weight Height 5 ft 6 in 10/12/24 15:51 Respiratory Assessment Respiratory Assessment - vacuum conditioner operator: Respiratory Tract Infection Hx - vacuum conditioner operator Hx Respiratory Tract Infection No 11/08/24 10:25 STOP Sleep Apnea STOP Sleep Apnea - vacuum conditioner operator: STOP Sleep Apnea - vacuum conditioner operator Hx Hypertension Yes: CONTROLLED ON MED 11/08/24 10:25 Hx Sleep Apnea No 11/08/24 10:25 CPAP BIPAP Do you snore loudly (louder No 11/08/24 10:25 than talking or can be heard Do you often feel tired/ No 11/08/24 10:25 fatigued/ sleepy during daytime? Has anyone observed you stop No 11/08/24 10:25 breathing during sleep? STOP Results Negative 11/08/24 10:25 QUESTION #5 FULL TEXT : Do you snore loudly (louder than talking or can be heard through closed doors)? 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 Specify any problems Hx of Preganancy in last 3 No 11/08/24 10:25 Months Nurse Filling Out Transfusion VCHRISTIN 11/08/24 10:25 & Questions: Date: 11/08/24 11/08/24 10:25 Time: 10:11/08/24 10:25 Patient unable to answer at this time (ie. 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: /Reproductive Hx- vacuum conditioner operator Hx Now Gestational Age (in weeks): EDC: Hx Hx Para Hx Section [facility] Medical History Wears glasses Thyroid disease Back pain Injury of head and neck History of hiatal hernia Gastric reflux Sleep apnea History of echocardiogram JINNY (generalized anxiety disorder) Bipolar II disorder Sjogrens syndrome Fibromyalgia Vitamin deficiency Pneumonia Osteoarthritis Neuropathy IBS (irritable bowel syndrome) High triglycerides High cholesterol Hypertension Migraines Gastrointestinal problem Diabetes Carpal tunnel syndrome Bone fracture Back problem Arthritis Anemia Home Medications ?Medication ?Instructions ?Recorded ?Last Taken ?Type calcium 600 mg (as 1 tab PO DAILY@0800 06/23/13 Unknown History carbonate)-vitamin D3 20 mcg (800 unit) tablet (Caltrate with Vitamin D3) cholecalciferol (vitamin D3) 50 2,000 unit PO DAILY 06/23/13 Unknown History mcg (2,000 unit) tablet (Vitamin D3) eletriptan 20 mg tablet (Relpax) 20 mg PO .X1 PRN 06/23/13 Unknown History sodium fluoride 1.1 %-potassium 100 ml DT DAILY 06/23/13 Unknown History nitrate 5 % dental paste (PreviDent 5000 Sensitive) cevimeline 30 mg capsule (Evoxac) 30 mg PO BID 08/09/23 Unknown History hydrochlorothiazide 12.5 mg capsule 12.5 mg PO DAILY 08/09/23 Unknown History hydroxychloroquine 200 mg tablet 200 mg PO BID 08/09/23 Unknown History (Plaquenil) leflunomide 20 mg tablet 20 mg PO DAILY 08/09/23 Unknown History levothyroxine 88 mcg tablet 88 mcg PO MOWEFR 08/09/23 Unknown History (Synthroid) lisinopril 20 mg tablet 20 mg PO DAILY 08/09/23 Unknown History metoprolol tartrate 25 mg tablet 12.5 mg PO DAILY 08/09/23 Unknown History multivitamin 1 tab PO DAILY 08/09/23 Unknown History omeprazole 20 mg capsule,delayed 20 mg PO DAILY 08/09/23 Unknown History release potassium chloride 10 mEq 10 meq PO BID 08/09/23 Unknown History tablet,extended release pravastatin 80 mg tablet 80 mg PO QHS 08/09/23 Unknown History sulfasalazine 500 mg tablet 1 g PO BID 08/09/23 Unknown History aripiprazole 2 mg tablet 4 mg (2 x 2 mg) PO DAILY 90 days 06/05/24 Unknown Rx #180 tabs citalopram 20 mg tablet 30 mg (1.5 x 20 mg) PO DAILY 90 06/05/24 Unknown Rx days #135 tabs cyclobenzaprine 10 mg tablet 10 mg PO BID PRN muscle spasm 10/12/24 Unknown History tirzepatide 7.5 mg/0.5 mL 7.5 mg subcut QWEEK 10/12/24 Unknown History subcutaneous pen injector (Mounjaro) gabapentin 400 mg capsule 400 mg PO 3XD 11/08/24 Unknown History levothyroxine 44 mcg capsule 44 mcg PO SUTUTHSA 11/08/24 Unknown History Allergy/AdvReac Type Severity Reaction Status Date / Time sumatriptan (From Imitrex) AdvReac Intermediate Other Verified 11/15/24 09:13 sumatriptan succinate (From AdvReac Intermediate Other Verified 11/15/24 09:13 Imitrex) Family History Mother Anxiety Breast cancer Cancer Diabetes Hypertension High cholesterol Psychiatric care Uterine cancer Father Arthritis Diabetes Hypertension High cholesterol Osteoporosis CVA (cerebral vascular accident) Other Colon cancer Depression Mental disorder Surgical History Hx of cervical spine surgery H/O gastric sleeve Previous back surgery History of carpal tunnel surgery of left wrist Gastric banding status H/O partial thyroidectomy Hx of arthroscopic knee surgery Hx of tonsillectomy Social History Smoking Status: Former smoker how long ago did patient quit smoking: quit 22 years ago alcohol intake: current details: 1-2 drinks, 1-2x month substance use type: does not use what type of physical activity do you participate in: walking frequency: 3-4 times per week additional social history: pt denies vaping, denies edibles, denies marijuana use, denies aspirin and ibuprofen use. Review of Systems (Anesthesia) ROS Narrative System reviewed and no additional complaints, except as documented.
[2024-11-15] MEDS: Cefazolin 2 GM in Syringe IV (10:43)
[2024-11-15] MEDS: Lidocaine 1% (20 ml mdv) 20 ML Vial (11:05)
[2024-11-15] MEDS: Bupivacaine 0.25% 30 ML Vial (11:05)
--- NOTE | 2024-11-15 11:33 | PCM.POST.ANE ---
Anesthesia: Postop Eval I Current Vital Signs Temperature: 97.6 F Pulse Rate: 82 Blood Pressure: 136/88 Respiratory Rate: 16 Pulse Ox: 100 Oxygen Delivery Method: Room Air Assessment Airway patent: Yes Spontaneous unlabored respirations: Yes Mental status: Awake nausea: No Vomiting: No Anesthesia Complication: No Fluid Hydration Crystalloid volume administer (ml): 10 Total IV fluid infused: 10 Progress Note Anesthesia document: Postop Eval 1 completed: Yes
--- NOTE | 2024-11-15 11:47 | POSTOPAN2_ITS ---
Anesthesia Postop Eval I Sum Postop Eval Completion status Anesthesia document: Postop Eval 1 completed: Yes Anesthesia Postop Eval I Summary Anesthesia Postop Eval I Summary: Anesthesia Postop Eval I: Assessment Summary Airway patent Yes 11/15/24 11:33 WOOD [email or web address] Spontaneous unlabored Yes 11/15/24 11:33 WOOD FUEL [email or web address] respirations Mental status Awake 11/15/24 11:33 WOOD [email or web address] nausea No 11/15/24 11:33 WOOD FUEL [email or web address] Vomiting No 11/15/24 11:33 WOOD [email or web address] Anesthesia Postop Eval I: Fluid Summary Crystalloid volume administer 10 11/15/24 11:33 WOOD [email or web address] (ml) Colloids volume administered ( ml) Blood Product volume administered (ml) Total IV fluid infused 10 11/15/24 11:33 WOOD FUEL [email or web address] Anesthesia Postop Eval I: Summary Notes Anesthesia Complication No 11/15/24 11:33 WOOD [email or web address] Anesthesia Complication Comment: Post-operative progress note Anesthesia: Postop Eval II Evaluation Mental status: Awake Pain Level: 0 nausea: No Vomiting: No
--- NOTE | 2024-11-15 11:47 | PCM.POSTANE2 ---
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 Spontaneous unlabored Yes 11/15/24 11:33 [email or web address] [email or web address] respirations Mental status Awake 11/15/24 11:33 [email or web address] nausea No 11/15/24 11:33 [email or web address] [email or web address] Vomiting No 11/15/24 11:33 [email or web address] Anesthesia Postop Eval I: Fluid Summary Crystalloid volume administer 10 11/15/24 11:33 [email or web address] (ml) Colloids volume administered ( ml) Blood Product volume administered (ml) Total IV fluid infused 10 11/15/24 11:33 [email or web address] Anesthesia Postop Eval I: Summary Notes Anesthesia Complication No 11/15/24 11:33 [email or web address] Anesthesia Complication Comment: Post-operative progress note Anesthesia: Postop Eval II Evaluation Mental status: Awake Pain Level: 0 nausea: No Vomiting: No
--- NOTE | 2024-11-16 06:45 | PCM.OPRPT ---
Operative Report (Standard) Operative Information Date of Procedure: 11/15/24 Pre-Operative Diagnosis: Left index finger mucous cyst Post-Operative Diagnosis: Same Surgery/Procedure Performed: 1) Excision of the left index finger mucous cyst (CPT: 35707) certified substance abuse counselor: No Type of Anesthesia: MAC/Supplemental (7 cc of a 50/50 mixture of 1% lidocaine and 0.25% Marcaine ) RN Documented Start/Stop Times: Operation Date: 11/15/24 10:35 Case Time Into Pre-Op 11/15/24 09:05 Out of Pre-Op 11/15/24 10:40 Anesthesia Start 11/15/24 10:43 Into Room 11/15/24 10:43 Procedure Start 11/15/24 11:00 Procedure End 11/15/24 11:24 Anesthesia End 11/15/24 11:27 Out of Room 11/15/24 11:27 Into Recovery 11/15/24 11:30 Into Phase II Recovery 11/15/24 11:48 Out of Recovery 11/15/24 11:48 Out of Phase II 11/15/24 12:10 Procedure Start Time: 11:00 Procedure Stop Time: 11:24 Select all DRAINS/GRAFTS/IMPLANTS that apply: None Estimated Blood Loss: Minimal Specimen collected: No Description of surgery: Indications: Patient presents with a left index finger mucous cyst. I discussed risk benefits and alternatives to the procedure and she elected to proceed with excision. I marked the correct finger and preoperative holding with the patient in agreement. Procedure details: Patient was correctly identified in the preoperative holding area and taken back to the operating room where she was administered sedation. She was prepped and draped in sterile fashion. A digital block was performed and a turnicot was applied to the index finger with care taken to remove at the end of the case. A timeout was performed. We began the procedure by making an incision dorsally over the DIP joint and dissecting distally towards the underside of the cyst. At this point we had exposure to the dorsal aspects of the lateral joint and the terminal slip, as well as the cyst stalk. A curette was then used to excise the joint stock and debride the lateral portions of the joint/potential osteophytes with care taken preserve the terminal slip and the collateral ligaments. The wound was irrigated with copious amounts normal saline. The cyst material (joint fluid) and the stalk of the cyst were removed. There was no clear specimen to be sent. The skin overlying the cyst was left in place. The turnicot was removed and hemostasis was obtained with bipolar electrocautery and the stalk of the cyst cauterized. The wound was closed with interrupted 4-0 nylon suture, a splint with Alumafoam (DIP joint extension) was applied, with xeroform Ketan and loose coban. The patient tolerated the procedure well and was awakened and taken to the PACU in stable condition. Surgical Findings: Consistent with mucous cyst Complications Complications: No Admit VTE Documentation VTE Mechan Device Prophylaxis: SCD's
== END 2024-11-15 12:10 | disposition home or self-care (01) ==
LOC: SDC 09:10 → AC 09:25
PROVIDERS: PCP Internal Medicine; Referring Provider Surgery Plastic and Reconstructive Surgery; Visit Provider Surgery Plastic and Reconstructive Surgery
PROC: (CPT 26055; principal; 2024-11-15 10:25)
DX: M71.342 Other bursal cyst, left hand (principal); E11.40 Type 2 diabetes mellitus with diabetic neuropathy, unspecified; I10 Essential (primary) hypertension; E78.00 Pure hypercholesterolemia, unspecified; Z79.85 Long-term (current) use of injectable non-insulin antidiabetic drugs; Z79.899 Other long term (current) drug therapy; Z87.891 Personal history of nicotine dependence
CPT/HCPCS: 26160; 01810; A4216; J2405

== ENCOUNTER → 2024-12-05 | Outpatient (CLI) | payer OTHER, SELFPAY ==
[2024-12-05 06:52] LABS: Absolute Neutrophil Count 2.9 X10^3/uL (2.0-7.7); Basophil# 0.06 X10^3/uL; Eosinophil# 0.12 X10^3/uL; Eosinophils% 2.1 % (0-5); Hematocrit 42.9 % (37-47); Hemoglobin 14.3 g/dL (12.0-15.0); Lymphocyte % 39.7 % (19-41); Mean Corp Hgb Conc 33.3 g/dL (32-36); Mean Corpuscular Hgb 30.2 pg (27.0-32.0); Mean Corpuscular Volume 90.7 fL (81-99); Mean Platelet Vol. 10.1 fl (6.2-12.0); Monocyte# 0.43 X10^3/uL; Monocyte% 7.4 % (0-10); NRBC Flagged by Analyzer 0 % (0-5); Neutrophil # 2.86 X10^3/uL (2.7-7.7); Neutrophil % 49.5 % (47-70); Platelet Count 286 K/mm3 (150-450); RBC Distribution Width CV 12.8 % (11.6-14.6); RBC Distribution Width SD 42.4 fl (35.1-43.9); Red Blood Count 4.73 M/mm3 (4.2-5.4); White Blood Count 5.8 K/mm3 (4.4-11.0)
[2024-12-05 07:12] LABS: AST(SGOT) 24 U/L (<=31); Alanine Aminotransfer ALT/SGPT 13 U/L (<=34); Albumin, Serum 4.2 g/dL (3.5-5.0); Alkaline Phosphatase 92 U/L (35-104); Bilirubin, Direct 0.16 mg/dL (0.00-0.30); Creatinine, Serum 0.62 mg/dL (0.70-1.20); EST Glomerular Filtration Rate 104 (>60); Globulin 2.8 g/dL (2.2-4.2); Total Bilirubin 0.38 mg/dL (0.00-1.30)
== END | disposition home or self-care (01) ==
LOC: LAB 06:07
PROVIDERS: PCP Internal Medicine; Referring Provider Internal Medicine Rheumatology; Visit Provider Internal Medicine Rheumatology
DX: M35.01 Sjogren syndrome with keratoconjunctivitis (principal); Z79.899 Other long term (current) drug therapy
CPT/HCPCS: 36415; 80076; 82565; 85025

== ENCOUNTER → 2025-04-13 | Outpatient (CLI) | payer OTHER, SELFPAY ==
--- NOTE | 2025-04-13 12:29 | MRI_ITS ---
PROCEDURE: SPINE LUMBAR (ROUTINE) 04/13/2025 REASON FOR EXAM: PAIN L5-S1 DEGENERATION TECHNIQUE: SPINE LUMBAR (ROUTINE) COMPARISON: Lumbar spine x-ray 03/08/2025. FINDINGS: Vertebrae: Height is preserved. No abnormal signal. Alignment: Unremarkable. Conus Medullaris: Unremarkable. L1-2: Disc desiccation. No foraminal or canal stenosis. L2-3: Mild facet joints arthropathy and ligamentum flavum hypertrophy. No significant foraminal or canal stenosis. L3-4: Disc desiccation. Disc bulge. A superimposed 3 mm central disc protrusion. Facet joint arthropathy and ligamentum flavum hypertrophy. Mild inferior bilateral foramina stenosis. Severe canal stenosis. L4-5: Disc bulge. Annular fissure. A superimposed 4 mm central disc protrusion. Facet joint arthropathy. Ligamentum flavum hypertrophy. Mild bilateral foramina stenosis. Severe canal stenosis. L5-S1: Disc desiccation. Disc bulge. A 3 mm central disc protrusion. Facet joint arthropathy. Moderate bilateral foramina stenosis. No canal stenosis. Sacrum: Unremarkable. MRI/Spine Lumbar (Routine) IMPRESSION: Degenerative changes, predominantly for severe canal stenosis at L3-L4 and L4-L 5. Reading Location: [id number]
== END | disposition home or self-care (01) ==
PROVIDERS: PCP Internal Medicine; Referring Provider Student in an Organized Health Care Education/Training Program; Visit Provider Student in an Organized Health Care Education/Training Program
DX: M51.362 Other intervertebral disc degeneration, lumbar region with discogenic back pain and lower extremity pain (principal)
CPT/HCPCS: 72148

== ENCOUNTER 2025-04-20 08:03 | Day surgery (SDC) | payer OTHER, SELFPAY ==
[2025-04-13 07:37] LABS: Hematocrit 41.1 % (37-47); Hemoglobin 13.4 g/dL (12.0-15.0); Mean Corp Hgb Conc 32.6 g/dL (32-36); Mean Corpuscular Volume 91.3 fL (81-99); Mean Platelet Vol. 9.5 fl (6.2-12.0); Platelet Count 266 K/mm3 (150-450); RBC Distribution Width CV 12.5 % (11.6-14.6); RBC Distribution Width SD 41.7 fl (35.1-43.9); Red Blood Count 4.50 M/mm3 (4.2-5.4); White Blood Count 4.9 K/mm3 (4.4-11.0)
[2025-04-13 08:01] LABS: AST(SGOT) 20 U/L (<=31); Alanine Aminotransfer ALT/SGPT 13 U/L (<=34); Albumin, Serum 4.1 g/dL (3.5-5.0); Alkaline Phosphatase 90 U/L (35-104); Anion Gap 10 (5-15); BUN 4 mg/dL (4-19); BUN/Creat Ratio 6.3 RATIO (10-20); Calcium,Total 9.2 mg/dL (7.6-11.0); Carbon Dioxide 27.0 mmol/L (21.0-32.0); Chloride 103 mmol/L (98-108); Globulin 2.5 g/dL (2.2-4.2); Glucose 82 mg/dL (70-99); Potassium 4.1 mmol/L (3.3-5.1)
[2025-04-20 08:26] VITALS: BP 148/86; PULSE 74; RESP 18; TEMP 36.6; O2SAT 99; BMI 29.2
[2025-04-20] MEDS: Lactated Ringers 1,000 ML 15 ML IV (08:39)
--- NOTE | 2025-04-20 09:04 | PCM.PRE.AN2 ---
ASA Classification* ASA Classification ASA Classification: 3 Assessment & Plan Anesthesia* Anesthesia Assessment Anesthesia Assessment: Discussed sedation and/or anesthesia options, risks, benefits, and alternatives with patient/parents/legal guardian/POA. Questions invited. The patient/parents/legal guardian/POA seems to understand and agrees to proceed with anesthesia plan. Reviewed the physical assessment, medical history, allergy history and patient home medications list prior to surgery/procedure/anesthetic and documented any changes. Performed airway and anesthesia risk assessments. Anesthesia Type Anesthesia Type: MAC History Source History Obtained from:: Patient and Chart Anesthesia Focused Assessment* Temperature: 97.8 F Pulse Rate: 74 Blood Pressure: 148/86 Respiratory Rate: 18 Pulse Ox: 99 Oxygen Delivery Method: Room Air Airway Assessment Mouth opens: >3 cm Mallampati Score: II Teeth Condition: Caps/Crowns (Patient has several crowns. They are all tight.) Neck Range of motion (ROM): Full ROM Labs Anesthesia Preop lab: CBC WBC 4.9 K/mm3 (4.4-11.0) 04/13/25 06:15 04/13/25 RBC 4.50 M/mm3 (4.2-5.4) 04/13/25 06:15 04/13/25 Hgb 13.4 g/dL (12.0-15.0) 04/13/25 06:15 04/13/25 Hct 41.1 % (37-47) 04/13/25 06:15 04/13/25 Plt Count 266 K/mm3 (150-450) 04/13/25 06:15 04/13/25 CHEMISTRY Potassium 4.1 mmol/L (3.3-5.1) 04/13/25 06:15 04/13/25 Sodium 140 mmol/L (133-145) 04/13/25 06:15 04/13/25 Magnesium 2.2 mg/dL (1.6-2.6) 01/21/24 06:08 01/21/24 Phosphorus 3.6 mg/dL (2.5-4.9) 04/15/19 07:13 04/15/19 BUN 4 mg/dL (4-19) 04/13/25 06:15 04/13/25 Creatinine 0.58 mg/dL (0.70-1.20) L 04/13/25 06:15 04/13/25 Glucose 82 mg/dL (70-99) 04/13/25 06:15 04/13/25 POC Glucose 76 mg/dL (70-110) 02/16/13 11:34 02/16/13 TSH 1.68 uIU/mL (0.358-3.74) 10/29/23 06:10 10/29/23 COAG Pre-Assessment Diagnosis/Proposed Procedure Planned Operative Procedure(s): Hysteroscopy,Dilation and Curettage Anesthesia History 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 When Was Last Pacemaker Check QUESTION #4 FULL TEXT: You/Your Family Experience fever (hyperthermia) with Anesthesia Last Oral Intake Last Oral intake: Last Oral Intake NPO since 23:00 04/20/25 08:26 Meds taken in AM with sips of water? Meds patient instructed to take am of surgery Any additional information?: Yes Meds taken in AM with sips of water?: Yes Meds patient instructed to take am of surgery: Metoprolol, Synthroid, omeprazole PONV PONV - fiberglass machine operator: PONV - fiberglass machine operator Female Yes 04/10/25 15:17 HX of Motion Sickness No 04/10/25 15:17 HX of N/V After Surgery No 04/10/25 15:17 Non-Smoker Yes 04/10/25 15:17 Duration of Surgery greater Yes 04/10/25 15:17 than 60 minutes Number of Risk Factors 3 04/10/25 15:17 PONV Score Moderate Risk 04/10/25 15:17 Height & Weight Height & Weight: Anesthesia: Height & Weight Height 5 ft 6 in 04/20/25 08:26 Weight: 82 kg 04/20/25 08:26 Body Mass Index (BMI) 29.2 04/20/25 08:26 Respiratory Assessment Respiratory Assessment - fiberglass machine operator: Respiratory Tract Infection Hx - fiberglass machine operator Hx Respiratory Tract Infection No 04/10/25 15:17 STOP Sleep Apnea STOP Sleep Apnea - fiberglass machine operator: STOP Sleep Apnea - fiberglass machine operator Hx Hypertension Yes: PER PT, CONTROLLED ON 04/10/25 15:17 MEDS Hx Sleep Apnea Yes 04/10/25 15:17 CPAP No: NO MACHINE NEEDED SINCE 04/10/25 15:17 WT LOSS BIPAP No 04/10/25 15:17 Do you snore loudly (louder than talking or can be heard Do you often feel tired/ fatigued/ sleepy during daytime? Has anyone observed you stop breathing during sleep? STOP Results Positive 04/10/25 15:17 QUESTION #5 FULL TEXT : Do you snore loudly (louder than talking or can be heard through closed doors)? 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 Specify any problems Hx of Preganancy in last 3 No 04/10/25 15:17 Months Nurse Filling Out Transfusion MGRIFFITH 04/10/25 15:17 & Questions: Date: 04/10/25 04/10/25 15:17 Time: 15:19 04/10/25 15:17 Patient unable to answer at this time (ie. confused, unrespo /Reproduction History /Reproductive History - fiberglass machine operator: /Reproductive Hx- fiberglass machine operator Hx Now No 04/10/25 15:17 Gestational Age (in weeks): EDC: Hx Hx Para Hx Section SAB No 04/10/25 15:17 Active Medications Active Medications: Current Medications Generic Name Dose Route Start Last Admin Trade Name Azam PRN Reason Stop Dose Admin Lactated Ringer's 1,000 mls @ 15 mls/hr 04/20/25 08:15 04/20/25 08:39 IV 15 mls/hr .Q48H VAL[facility]IN [facility] Medical History Alcohol use Former smoker History of edema Wears glasses Thyroid disease Back pain Injury of head and neck History of hiatal hernia Gastric reflux Sleep apnea History of echocardiogram JINNY (generalized anxiety disorder) Bipolar II disorder Sjogrens syndrome Fibromyalgia Vitamin deficiency Pneumonia Osteoarthritis Neuropathy IBS (irritable bowel syndrome) High triglycerides High cholesterol Hypertension Migraines Gastrointestinal problem Diabetes Carpal tunnel syndrome Bone fracture Back problem Arthritis Anemia Home Medications ?Medication ?Instructions ?Recorded ?Last Taken ?Type calcium 600 mg (as 1 tab PO DAILY@0800 06/23/13 Unknown History carbonate)-vitamin D3 20 mcg (800 unit) tablet (Caltrate with Vitamin D3) cholecalciferol (vitamin D3) 50 2,000 unit PO DAILY 06/23/13 04/19/25 History mcg (2,000 unit) tablet (Vitamin D3) eletriptan 20 mg tablet (Relpax) 20 mg PO DAILY PRN MIGRAINE 06/23/13 Unknown History sodium fluoride 1.1 %-potassium 100 ml DT DAILY 06/23/13 Unknown History nitrate 5 % dental paste (PreviDent 5000 Sensitive) cevimeline 30 mg capsule (Evoxac) 30 mg PO BID 08/09/23 04/19/25 History hydroxychloroquine 200 mg tablet 200 mg PO BID 08/09/23 04/19/25 History (Plaquenil) leflunomide 20 mg tablet 20 mg PO DAILY 08/09/23 04/19/25 History levothyroxine 88 mcg tablet 88 mcg PO MOWEFR 08/09/23 04/19/25 History (Synthroid) lisinopril 20 mg tablet 20 mg PO DAILY 08/09/23 04/19/25 History metoprolol tartrate 25 mg tablet 12.5 mg PO DAILY 08/09/23 04/20/25 History multivitamin 1 tab PO DAILY 08/09/23 Unknown History omeprazole 20 mg capsule,delayed 20 mg PO DAILY 08/09/23 04/20/25 History release pravastatin 80 mg tablet 80 mg PO QHS 08/09/23 04/19/25 History sulfasalazine 500 mg tablet 1 g PO BID 08/09/23 04/19/25 History cyclobenzaprine 10 mg tablet 10 mg PO BID PRN muscle spasm 10/12/24 04/19/25 History gabapentin 400 mg capsule 400 mg PO TID 11/08/24 04/19/25 History levothyroxine 44 mcg capsule 44 mcg PO SUTUTHSA 11/08/24 04/20/25 History hydrocodone-acetaminophen 5-325mg 0.5 - 1 tab PO QD-BID PRN pain 12/07/24 Unknown History 5mg-325mg citalopram 20 mg tablet 30 mg (1.5 x 20 mg) PO DAILY 90 02/22/25 04/19/25 Rx days #135 tabs gabapentin 100 mg capsule 100 mg PO TID 04/05/25 04/19/25 History tirzepatide 7.5 mg/0.5 mL 10 mg subcut TH 04/05/25 04/12/25 History subcutaneous pen injector (Jimmy) aripiprazole 2 mg tablet 4 mg PO QHS 04/10/25 04/19/25 History spironolactone 25 mg tablet 25 mg PO QDAY 04/18/25 04/19/25 History Allergy/AdvReac Type Severity Reaction Status Date / Time sumatriptan (From Imitrex) AdvReac Intermediate Other Verified 04/20/25 08:24 sumatriptan succinate (From AdvReac Intermediate Other Verified 04/20/25 08:24 Imitrex) Family History Mother Anxiety Breast cancer Cancer Diabetes Hypertension High cholesterol Psychiatric care Uterine cancer Father Arthritis Diabetes Hypertension High cholesterol Osteoporosis CVA (cerebral vascular accident) Other Colon cancer Depression Mental disorder Surgical History History of epidural steroid injection into cervical spine History of esophagogastroduodenoscopy (EGD) History of colonoscopy Hx of removal of cyst Hx of cervical spine surgery H/O gastric sleeve Previous back surgery History of carpal tunnel surgery of left wrist Gastric banding status H/O partial thyroidectomy Hx of arthroscopic knee surgery Hx of tonsillectomy Social History Smoking Status: Former smoker how long ago did patient quit smoking: quit 22 years ago alcohol intake: current details: 1-2 drinks, 1-2x month substance use type: does not use what type of physical activity do you participate in: walking frequency: 3-4 times per week additional social history: pt denies vaping, denies edibles, denies marijuana use, denies aspirin and ibuprofen use. Review of Systems (Anesthesia) ROS Narrative System reviewed and no additional complaints, except as documented.
[2025-04-20 09:10] VITALS: BP 148/86; PULSE 74; RESP 18; TEMP 36.6; O2SAT 99
[2025-04-20] MEDS: Lactated Ringers 500 ML IV (09:20)
[2025-04-20] MEDS: Midazolam 2 MG/2 ML Syringe IV (09:20)
[2025-04-20] MEDS: Lidocaine 1% (5 ml sdv) 5 ML Vial IV (09:24)
--- NOTE | 2025-04-20 09:25 | DCINST_ITS ---
Discharge Instructions DC O2, CPAP, BIPAP needs Home O2 Discharge instructions: No Dressing / Incision Discharge Activity: May Not Drive (for 24 hours after surgery) and May Not Shower (for 24 hours after surgery) May resume sexual activity in: 1 week (nothing in the vagina and no soaking in water) Weight Bearing Status: Weight bearing as tolerated Lifting Restrictions: none Dressing / Incision Call your doctor if you observe: Fever of 101 or Higher, Inability to urinate, Using more than 1 pad per hour, Dizziness, Swelling in the ankles, Chest pain, Calf discomfort and Uncontrolled pain Follow Up Care Please Follow Up With: Zaida Chowdhury DO When: 1 week post op Test Results: Test results from this visit will be discussed in further detail at your follow- up appointment, if applicable. Discharge Plan Admission Primary Reason for Your Visit: surgery Attending Provider: Zaida Chowdhury Primary Care Provider: Ana Guo Instructions Patient Instructions: Dilation and Curettage Print Language: [place] Discharge Orders/Prescriptions Prescriptions: Continued leflunomide 20 mg tablet 20 mg PO DAILY Patient Comments: TAKE 1 TABLET BY MOUTH EVERY DAY FOR 90 DAYS lisinopril 20 mg tablet 20 mg PO DAILY Patient Comments: TAKE 1 TABLET BY MOUTH TWICE A DAY metoprolol tartrate 25 mg tablet 12.5 mg PO DAILY Patient Comments: TAKE HALF A TABLET BY MOUTH EVERY 12 HOURS omeprazole 20 mg capsule,delayed release(DR/EC) 20 mg PO DAILY Patient Comments: TAKE 1 CAPSULE (20 MG) BY MOUTH DAILY. DO NOT CRUSH OR CHEW. hydroxychloroquine [Plaquenil] 200 mg tablet 200 mg PO BID pravastatin 80 mg tablet 80 mg PO QHS Patient Comments: TAKE ONE TABLET EVERY NIGHT AT BEDTIME sulfasalazine 500 mg tablet 1 g PO BID Patient Comments: TAKE 2 TABLETS BY MOUTH TWICE A DAY FOR 90 DAYS levothyroxine [Synthroid] 88 mcg tablet 88 mcg PO MOWEFR Patient Comments: 1/2 tab M, W, F multivitamin Tablet 1 tab PO DAILY hydrocodone-acetaminophen 5-325 mg tablet 0.5 - 1 tab PO QD-BID PRN (Reason: pain) cyclobenzaprine 10 mg tablet 10 mg PO BID PRN (Reason: muscle spasm) gabapentin 100 mg capsule 100 mg PO TID spironolactone 25 mg tablet 25 mg PO QDAY eletriptan [Relpax] 20 MG tablet 20 mg PO DAILY PRN cholecalciferol (vitamin D3) [Vitamin D3] 2,000 UNIT tablet 2,000 unit PO DAILY sodium fluoride-pot nitrate [PreviDent 5000 Sensitive] 100 ML paste 100 ml DT DAILY calcium carbonate-vitamin D3 [Caltrate with Vitamin D3] 1 TAB tablet 1 tab PO DAILY@0800 cevimeline [Evoxac] 30 mg capsule 30 mg PO BID aripiprazole 2 mg tablet 4 mg PO QHS gabapentin 400 mg capsule 400 mg PO TID levothyroxine 44 mcg capsule 44 mcg PO SUTUTHSA citalopram 20 mg tablet 30 mg PO DAILY 90 Days Qty: 135 1RF Held Mounjaro 7.5 mg/0.5 mL pen injector 10 mg subcut TH Hold Instructions: Resume on 04/23/25. Patient Comments: LAST DOSE 04/12/25 FOR SURGERY ON 04/20/25 Referrals / Follow Up: Ana Guo MD [Primary Care Provider] - Disposition Disposition (needs filled in before D/C Order can be placed): Home, Self Care
--- NOTE | 2025-04-20 09:30 | EMB_PTH ---
PATIENT: SANTOS ALLAN LOC: [facility] [place] U[place][id number] AGE/SX: 59/F ROOM: RE04/20/[address]: Dr. Zaida Chowdhury DO : 1965 BED: DIS: 04/20/2025 SPEC #: [id number] RECD: 04/20/25 10:06 STATUS: DIRK REQ #: [id number] NURIA: 04/20/25 09:[address]: Zaida Chowdhury DEPT: SURGICAL PATHOLOGY RECD BY: Rock Marinelli ENTERED: 04/20/25 11:16 SP TYPE: ENDOM BX/C AD DR: Dr. Ana Guo MD Tissues: A - Endometrium, NOS Procedures: Surgery Specimen Level IV HEADER OPERATION: Hysteroscopy, D&C PRE-OP DIAGNOSIS: Abnormal uterine bleeding, submucosal fibroid TISSUE SUBMITTED: A- Endometrial curettings MICROSCOPIC DIAGNOSIS A. Endometrium, dilation and curettage: * Disordered proliferative endometrium. * Scant benign endocervical mucosa. MICROSCOPIC DESCRIPTION Slides are reviewed. GROSS DESCRIPTION A. Received in formalin labeled with the patient's name and date of . Designated as endometrial curettings is a is a 1.4 x 0.5 x 0.1 cm aggregate of pink-red tissue fragments. Entirely submitted in 1 cassette. LA 04/20/2025 CPT:45349
[2025-04-20] MEDS: Lidocaine 1% /Epi 1:100 (50ml) 50 ML VIAL (09:49)
--- NOTE | 2025-04-20 09:55 | PCM.OPRPT ---
Problems Associated Problem List Diagnoses (1) Endometrial thickening on ultrasound: (2) Fluid in endometrial cavity: Operative Report (Standard) Operative Information Date of Procedure: 04/20/25 Pre-Operative Diagnosis: Thickening of endometrium and endometrial fluid in pelvic ultrasound Post-Operative Diagnosis: As above Surgery/Procedure Performed: Hysteroscopy D&C editor trade journal: No Type of Anesthesia: Local and MAC RN Documented Start/Stop Times: Operation Date: 04/20/25 09:30 Case Time Into Pre-Op 04/20/25 08:11 Out of Pre-Op 04/20/25 09:14 Anesthesia Start 04/20/25 09:20 Into Room 04/20/25 09:20 Procedure Start 04/20/25 09:37 Procedure End 04/20/25 09:52 Procedure Start Time: :37 Procedure Stop Time: :52 Select all DRAINS/GRAFTS/IMPLANTS that apply: None Special Medications: None Estimated Blood Loss: < 20 mL Specimen collected: Yes Description of specimen(s) removed: Endometrial curettings Description of surgery: The patient was taken to the operating room where MAC anesthesia was induced and found to be adequate. She was prepped and draped in the dorsal lithotomy position using yellow fin stirrups. A weighted speculum was placed in the vagina to expose the cervix. The anterior lip of the cervix was grasped with a single-tooth tenaculum. 10 cc of local were injected circumferentially within the cervix. Vulvar and vaginal atrophy were noted. The cervix was flush with the vaginal tissue with a stenotic os. The cervix was serially dilated to accommodate the hysteroscope. The hysteroscope was advanced into the uterus, and the uterus was distended with normal saline as distention media. Bilateral tubal ostia were visualized. The endometrium was atrophic and thin appearing. No lesions were noted within the uterus or endocervix. The camera was removed. Sharp curettage was performed for scant tissue. The endometrial curettings were sent to pathology for review. Fluid deficit was 100 mL. All instruments were removed from the vagina. A vaginal sweep was performed. The patient was taken to the recovery room in stable condition. Surgical Findings: Normal appearing uterine cavity with thin atrophic endometrium No lesions on hysteroscopy Atrophy of vulva and vagina noted with stenotic cervical os Complications Complications: No Admit VTE Documentation VTE Mechan Device Prophylaxis: SCD's
[2025-04-20 10:00] VITALS: BP 143/80; BP 148/86; PULSE 84; RESP 16; TEMP 36.3; O2SAT 95
--- NOTE | 2025-04-20 10:04 | PCM.POST.ANE ---
Anesthesia: Postop Eval I Current Vital Signs Temperature: 97.4 F Pulse Rate: 87 Blood Pressure: 143/80 Respiratory Rate: 20 Pulse Ox: 95 Oxygen Delivery Method: Room Air Assessment Airway patent: Yes Spontaneous unlabored respirations: Yes Mental status: Awake and Calm nausea: No Vomiting: No Anesthesia Complication: No Fluid Hydration Crystalloid volume administer (ml): 700 Total IV fluid infused: 700 Progress Note Anesthesia document: Postop Eval 1 completed: Yes
[2025-04-20 10:05] VITALS: BP 143/80; BP 144/86; BP 148/86; PULSE 84; PULSE 87; RESP 16; RESP 20; TEMP 36.3; O2SAT 95; O2SAT 96
[2025-04-20 10:10] VITALS: BP 148/86; BP 150/83; PULSE 82; RESP 16; TEMP 36.2; O2SAT 98
[2025-04-20 10:11] VITALS: BP 148/86
== END 2025-04-20 10:38 | disposition home or self-care (01) ==
LOC: SDC 08:03 → AC 08:05
PROVIDERS: PCP Internal Medicine; Referring Provider Obstetrics & Gynecology; Visit Provider Obstetrics & Gynecology
PROC: 0UB98ZZ Excision of Uterus, Via Natural or Artificial Opening Endoscopic (ICD-10-PCS; CPT 58558; principal; 2025-04-20 09:15)
DX: M48.02 Spinal stenosis, cervical region (principal); F31.9 Bipolar disorder, unspecified; E11.9 Type 2 diabetes mellitus without complications; N85.8 Other specified noninflammatory disorders of uterus; R93.89 Abnormal findings on diagnostic imaging of other specified body structures; Z87.891 Personal history of nicotine dependence; E03.9 Hypothyroidism, unspecified; G47.33 Obstructive sleep apnea (adult) (pediatric); E78.5 Hyperlipidemia, unspecified; I10 Essential (primary) hypertension; K21.9 Gastro-esophageal reflux disease without esophagitis; F41.9 Anxiety disorder, unspecified; Z98.84 Bariatric surgery status
CPT/HCPCS: 58558; 00952; 36415; 80053; 85027; 86850; 86900; 86901; 88305; J2405

== ENCOUNTER 2025-07-10 17:08 | Observation (INO) | payer OTHER, SELFPAY ==
--- NOTE | 2025-06-27 06:57 | EKG12_ITS ---
Test Reason : PRE OP Blood Pressure : */* mmHG Vent. Rate : 76 BPM Atrial Rate : 76 BPM P-R Int : 130 ms QRS Dur : 76 ms QT Int : 406 ms P-R-T Axes : 56 62 55 degrees QTcB Int : 456 ms Normal sinus rhythm Normal ECG When compared with ECG of 03-Sep-2010 09:09, No significant change was found Confirmed by ARLETTE BOSTON, RALF ([id number]), field map editor KRISTEN STAFFORD ([id number]) on 06/28/2025 6:28:50 AM Referred By: Tobin Bauman Confirmed By: RALF CHONG MD
[2025-06-27 07:59] LABS: Hematocrit 40.9 % (37-47); Hemoglobin 13.6 g/dL (12.0-15.0); Immature Granulocytes Count 0.010 X10^3/uL (0.0-0.0); Mean Corp Hgb Conc 33.3 g/dL (32-36); Mean Corpuscular Volume 92.5 fL (81-99); Mean Platelet Vol. 9.6 fl (6.2-12.0); NRBC Flagged by Analyzer 0 % (0-5); Platelet Count 277 K/mm3 (150-450); RBC Distribution Width CV 12.2 % (11.6-14.6); RBC Distribution Width SD 41.6 fl (35.1-43.9); Red Blood Count 4.42 M/mm3 (4.2-5.4); White Blood Count 4.4 K/mm3 (4.4-11.0)
[2025-06-27 08:42] LABS: Anion Gap 11 (5-15); BUN 5 mg/dL (4-19); BUN/Creat Ratio 8.3 RATIO (10-20); Calcium,Total 9.6 mg/dL (7.6-11.0); Carbon Dioxide 29.9 mmol/L (21.0-32.0); Chloride 98 mmol/L (98-108); Glucose 85 mg/dL (70-99); Potassium 4.1 mmol/L (3.3-5.1)
[2025-06-27 08:49] LABS: Magnesium 2.5 mg/dL (1.5-2.2)
[2025-07-10] VITALS (12 sets, daily range): BP systolic 98–143; BP diastolic 64–84; PULSE 83–104; RESP 10–18; TEMP 36.3–36.7; O2SAT 93–100; BMI 28.5; BMI 28.7
[2025-07-10] MEDS: Lactated Ringers 1,000 ML 15 ML IV (11:54)
--- NOTE | 2025-07-10 12:22 | PCM.PRE.AN2 ---
ASA Classification* ASA Classification ASA Classification: 2 Assessment & Plan Anesthesia* Anesthesia Assessment Anesthesia Assessment: Discussed sedation and/or anesthesia options, risks, benefits, and alternatives with patient/parents/legal guardian/POA. Questions invited. The patient/parents/legal guardian/POA seems to understand and agrees to proceed with anesthesia plan. Reviewed the physical assessment, medical history, allergy history and patient home medications list prior to surgery/procedure/anesthetic and documented any changes. Performed airway and anesthesia risk assessments. Anesthesia Type Anesthesia Type: General History Source History Obtained from:: Patient and Chart Anesthesia Focused Assessment* Temperature: 97.9 F Pulse Rate: 83 Blood Pressure: 124/81 Respiratory Rate: 16 Pulse Ox: 98 Oxygen Delivery Method: Room Air Airway Assessment Mouth opens: >3 cm Mallampati Score: II Teeth Condition: Intact Neck Range of motion (ROM): Full ROM Labs Anesthesia Preop lab: CBC WBC, (4.4-11.0) 4.4 K/mm3 06/27/25, 07:09 RBC, (4.2-5.4) 4.42 M/mm3 06/27/25, 07:09 Hgb, (12.0-15.0) 13.6 g/dL 06/27/25, 07:09 Hct, (37-47) 40.9 % 06/27/25, 07:09 Plt Count, (150-450) 277 K/mm3 06/27/25, 07:09 CHEMISTRY Potassium, (3.3-5.1) 4.1 mmol/L 06/27/25, 07:09 Sodium, (133-145) 139 mmol/L 06/27/25, 07:09 Magnesium, (1.5-2.2) 2.5 mg/dL H 06/27/25, 07:08 Phosphorus, (2.5-4.9) 3.6 mg/dL 04/15/19, 07:13 BUN, (4-19) 5 mg/dL 06/27/25, 07:09 Creatinine, (0.70-1.20) 0.57 mg/dL L 06/27/25, 07:09 Glucose, (70-99) 85 mg/dL 06/27/25, 07:09 POC Glucose, (70-110) 76 mg/dL 02/16/13, 11:34 TSH, (0.300-4.200) 0.383 uIU/mL 06/27/25, 07:08 COAG Pre-Assessment Diagnosis/Proposed Procedure Planned Operative Procedure(s): Transforaminal lumbar interbody fusion L5-S1 Anesthesia History Anesthesia History - preflight mechanic: Anesthesia History - preflight mechanic Hx Hospitalization No 06/26/25 09:27 Any Problems With Anesthesia No 06/26/25 09:27 Cholinesterase deficiency No 06/26/25 09:27 You/Your Family Experience No 06/26/25 09:27 fever (hyperthermia) with Relationship Recent Exposure to Contagious No 07/10/25 11:44 Disease Does patient have nerve No 06/26/25 09:27 stimulator Patient instructed to have device shut off --Does patient have Pacemaker No 07/10/25 11:47 or ICD? When Was Last Pacemaker Check QUESTION #4 FULL TEXT: You/Your Family Experience fever (hyperthermia) with Anesthesia Last Oral Intake Last Oral intake: Last Oral Intake NPO since 09:00 07/10/25 11:47 Meds taken in AM with sips of Yes 07/10/25 11:47 water? Meds patient instructed to take am of surgery PONV PONV - preflight mechanic: PONV - preflight mechanic Female No 06/26/25 09:27 HX of Motion Sickness No 06/26/25 09:27 HX of N/V After Surgery No 06/26/25 09:27 Non-Smoker Yes 06/26/25 09:27 Duration of Surgery greater Yes 06/26/25 09:27 than 60 minutes Number of Risk Factors 2 06/26/25 09:27 PONV Score Moderate Risk 06/26/25 09:27 Height & Weight Height & Weight: Anesthesia: Height & Weight Height 5 ft 6 in 07/10/25 11:47 Weight: 80.286 kg 07/10/25 11:47 Body Mass Index (BMI) 28.5 07/10/25 11:47 Respiratory Assessment Respiratory Assessment - preflight mechanic: Respiratory Tract Infection Hx - preflight mechanic Hx Respiratory Tract Infection No 06/26/25 09:27 STOP Sleep Apnea STOP Sleep Apnea - preflight mechanic: STOP Sleep Apnea - preflight mechanic Hx Hypertension Yes: PER PT, CONTROLLED ON 06/26/25 09:27 MEDS Hx Sleep Apnea Yes 06/26/25 09:27 CPAP No: NO MACHINE NEEDED SINCE 06/26/25 09:27 WT LOSS BIPAP No 06/26/25 09:27 Do you snore loudly (louder than talking or can be heard Do you often feel tired/ fatigued/ sleepy during daytime? Has anyone observed you stop breathing during sleep? STOP Results Positive 06/26/25 09:27 QUESTION #5 FULL TEXT : Do you snore loudly (louder than talking or can be heard through closed doors)? 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 Specify any problems Hx of Preganancy in last 3 No 06/26/25 09:27 Months Nurse Filling Out Transfusion [email or web address] 06/26/25 09:27 & Questions: Date: 06/26/25 06/26/25 09:27 Time: 09:30 06/26/25 09:27 Patient unable to answer at this time (ie. confused, unrespo /Reproduction History /Reproductive History - preflight mechanic: /Reproductive Hx- preflight mechanic Hx Now Gestational Age (in weeks): EDC: Hx Hx Para Hx Section SAB No 06/26/25 09:27 Active Medications Active Medications: Current Medications Generic Name Dose Route Start Last Admin Trade Name Freq PRN Reason Stop Dose Admin Acetaminophen 1,000 mg 07/10/25 13:15 07/10/25 11:52 Acetaminophen 500 Mg Tablet PO 07/10/25 13:16 1,000 mg PREOP ONE Administration Cefazolin Sodium 2 gm/ Sodium 110 mls @ 150 mls/hr 07/10/25 13:15 Chloride IV 07/10/25 13:58 INTRAOP ONE Tranexamic Acid 1,000 mg/ 110 mls @ 440 mls/hr 07/10/25 13:15 Sodium Chloride IV 07/10/25 13:29 INTRAOP ONE Tranexamic Acid 1,000 mg/ 110 mls @ 440 mls/hr 07/10/25 13:15 Sodium Chloride IV 07/10/25 13:29 INTRAOP ONE Lactated Ringer's 1,000 mls @ 15 mls/hr 07/10/25 11:30 07/10/25 11:54 IV 15 mls/hr .Q48H VALENTIN Administration Insulin Human Lispro 1 - 6 unit 07/10/25 13:15 Insulin Lispro 100 Unit/Ml Insuln.Pen SC Q4H PRN PRN BG>/= 180, SEE PROTOCOL Protocol PFSH Medical History Alcohol use Former smoker History of edema Wears glasses Thyroid disease Back pain Injury of head and neck History of hiatal hernia Gastric reflux Sleep apnea History of echocardiogram JINNY (generalized anxiety disorder) Bipolar II disorder Sjogrens syndrome Fibromyalgia Vitamin deficiency Pneumonia Osteoarthritis Neuropathy IBS (irritable bowel syndrome) High triglycerides High cholesterol Hypertension Migraines Gastrointestinal problem Diabetes Carpal tunnel syndrome Bone fracture Back problem Arthritis Anemia Home Medications ?Medication ?Instructions ?Recorded ?Last Taken ?Type calcium 600 mg (as 1 tab PO DAILY@0800 06/23/13 07/09/25 08:00 History carbonate)-vitamin D3 20 mcg (800 unit) tablet (Caltrate with Vitamin D3) cholecalciferol (vitamin D3) 50 2,000 unit PO DAILY 06/23/13 07/09/25 10:00 History mcg (2,000 unit) tablet (Vitamin D3) eletriptan 20 mg tablet (Relpax) 20 mg PO DAILY PRN MIGRAINE 06/23/13 Unknown History cevimeline 30 mg capsule (Evoxac) 30 mg PO BID 08/09/23 07/09/25 23:00 History hydroxychloroquine 200 mg tablet 200 mg PO BID 08/09/23 07/09/25 23:00 History (Plaquenil) leflunomide 20 mg tablet 20 mg PO DAILY 08/09/23 07/09/25 10:00 History lisinopril 20 mg tablet 20 mg PO DAILY 08/09/23 07/09/25 10:00 History metoprolol tartrate 25 mg tablet 12.5 mg PO DAILY 08/09/23 07/10/25 06:30 History multivitamin 1 tab PO DAILY 08/09/23 07/09/25 10:00 History omeprazole 20 mg capsule,delayed 20 mg PO DAILY 08/09/23 07/10/25 06:30 History release pravastatin 80 mg tablet 80 mg PO QHS 08/09/23 07/09/25 23:00 History sulfasalazine 500 mg tablet 1 g PO BID 08/09/23 07/09/25 23:00 History cyclobenzaprine 10 mg tablet 10 mg PO BID PRN muscle spasm 10/12/24 07/09/25 23:00 History gabapentin 400 mg capsule 400 mg PO TID 11/08/24 07/09/25 06:30 History levothyroxine 44 mcg capsule 44 mcg PO MOWEFR 11/08/24 07/10/25 06:30 History hydrocodone-acetaminophen 5-325mg 0.5 - 1 tab PO QD-BID PRN pain 12/07/24 07/07/25 History 5mg-325mg citalopram 20 mg tablet 30 mg (1.5 x 20 mg) PO DAILY 90 02/22/25 07/10/25 06:30 Rx days #135 tabs gabapentin 100 mg capsule 100 mg PO TID 04/05/25 07/10/25 06:30 History tirzepatide 7.5 mg/0.5 mL 10 mg subcut TH 04/05/25 06/28/25 History subcutaneous pen injector (Jimmy) aripiprazole 2 mg tablet 4 mg PO QHS 04/10/25 07/09/25 23:00 History estradiol 0.01% (0.1 mg/gram) 1 applic vaginal MOTH 06/26/25 07/09/25 History vaginal cream hydrochlorothiazide 12.5 mg capsule 12.5 mg PO DAILY 06/26/25 07/09/25 10:00 History potassium chloride 10 mEq 10 meq PO BID 06/26/25 07/09/25 23:00 History tablet,extended release Allergy/AdvReac Type Severity Reaction Status Date / Time sumatriptan (From Imitrex) AdvReac Intermediate Other Verified 07/10/25 11:39 sumatriptan succinate (From AdvReac Intermediate Other Verified 07/10/25 11:39 Imitrex) Family History Mother Anxiety Breast cancer Cancer Diabetes Hypertension High cholesterol Psychiatric care Uterine cancer Father Arthritis Diabetes Hypertension High cholesterol Osteoporosis CVA (cerebral vascular accident) Other Colon cancer Depression Mental disorder Surgical History History of epidural steroid injection into cervical spine History of esophagogastroduodenoscopy (EGD) History of colonoscopy Hx of removal of cyst Hx of cervical spine surgery H/O gastric sleeve Previous back surgery History of carpal tunnel surgery of left wrist Gastric banding status H/O partial thyroidectomy Hx of arthroscopic knee surgery Hx of tonsillectomy Social History Smoking Status: Former smoker how long ago did patient quit smoking: quit 22 years ago alcohol intake: current details: 1-2 drinks, 1-2x month substance use type: does not use what type of physical activity do you participate in: walking frequency: 3-4 times per week additional social history: pt denies vaping, denies edibles, denies marijuana use, denies aspirin and ibuprofen use. Review of Systems (Anesthesia) ROS Narrative System reviewed and no additional complaints, except as documented.
--- NOTE | 2025-07-10 13:30 | RAD_ITS ---
PROCEDURE: LUMBAR SPINE 2 OR 3 VIEWS 07/10/2025 REASON FOR EXAM: TRANSFORAMINAL LUMBAR INTERBODY FUSION L5-S1 TECHNIQUE: Procedure Code: RADSPLL Modality: DX Procedure: LUMBAR SPINE 2 OR 3 VIEWS COMPARISON: 07/11/2025 FINDINGS: This is an administrative dictation for intraoperative fluoroscopy. Please see the procedure report for details. 9 fluoroscopic images are provided. Fluoroscopy time was 150.4 seconds. Cumulative dose was 81.11 mGy. RAD/Lumbar Spine 2 or 3 Views IMPRESSION: Fluoroscopy as above. [facility]
--- NOTE | 2025-07-10 13:47 | HP.PCM_ITS ---
History and Physical Date of Admission: 07/10/25 MR#: [id number] Acct: [id number] Name: SANTOS ALLAN Rep #: [id number] : 1965 Provider: Dr. Tobin Bauman MD Age/Sex: 59/F Location: [facility] [place] Status: Signed Intake Vital Signs 04/20/2508:26 Height 5 ft 6 in Intake Visit Reasons: lumbar spine Chief Complaint: Lumbar spine preop appt Accompanied by: Self Is patient in pain?: Yes (lumbar ) Pain scale (1-10): 8 Allergies sumatriptan (From Imitrex) Adverse Reaction (Intermediate, Verified 07/03/25 08:11) Other sumatriptan succinate (From Imitrex) Adverse Reaction (Intermediate, Verified 07/03/25 08:11) Other Medications ?Medication ?Instructions ?Recorded ?Confirmed ?Type calcium 600 mg (as 1 tab PO DAILY@0800 06/23/13 07/03/25 Hi story carbonate)-vitamin D3 20 mcg (800 unit) tablet (Caltrate with Vitamin D3) cholecalciferol (vitamin D3) 50 2,000 unit PO DAILY 06/23/13 07/03/25 Hi story mcg (2,000 unit) tablet (Vitamin D3) eletriptan 20 mg tablet (Relpax) 20 mg PO DAILY PRN MIGRAINE 06/23/13 History cevimeline 30 mg capsule (Evoxac) 30 mg PO BID 08/09/23 07/03/25 History hydroxychloroquine 200 mg tablet 200 mg PO BID 08/09/23 07/03/25 History (Plaquenil) leflunomide 20 mg tablet 20 mg PO DAILY 08/09/23 07/03/25 History lisinopril 20 mg tablet 20 mg PO DAILY 08/09/23 07/03/25 History metoprolol tartrate 25 mg tablet 12.5 mg PO DAILY 08/09/23 07/03/25 Histo ry multivitamin 1 tab PO DAILY 08/09/23 07/03/25 History omeprazole 20 mg capsule,delayed 20 mg PO DAILY 08/09/23 07/03/25 History release pravastatin 80 mg tablet 80 mg PO QHS 08/09/23 07/03/25 History sulfasalazine 500 mg tablet 1 g PO BID 08/09/23 07/03/25 History cyclobenzaprine 10 mg tablet 10 mg PO BID PRN muscle spasm 10/12/24 1 History gabapentin 400 mg capsule 400 mg PO TID 11/08/24 07/03/25 History levothyroxine 44 mcg capsule 44 mcg PO MOWEFR 11/08/24 07/03/25 Histo ry hydrocodone-acetaminophen 5-325mg 0.5 - 1 tab PO QD-BID PRN pain 12/07/24 07/03/25 History 5mg-325mg citalopram 20 mg tablet 30 mg (1.5 x 20 mg) PO DAILY 90 02/22/25 07/03/25 Rx days #135 tabs gabapentin 100 mg capsule 100 mg PO TID 04/05/25 07/03/25 History tirzepatide 7.5 mg/0.5 mL 10 mg subcut TH 04/05/25 07/03/25 Histor y subcutaneous pen injector (Jimmy) aripiprazole 2 mg tablet 4 mg PO QHS 04/10/25 07/03/25 History estradiol 0.01% (0.1 mg/gram) 1 applic vaginal MOTH 06/26/25 07/03/25 History vaginal cream hydrochlorothiazide 12.5 mg capsule 12.5 mg PO DAILY 06/26/25 07/03/25 Histo ry potassium chloride 10 mEq 10 meq PO BID 06/26/25 07/03/25 History tablet,extended release PFSH Medical History Alcohol use Former smoker History of edema Wears glasses Thyroid disease Back pain Injury of head and neck History of hiatal hernia Gastric reflux Sleep apnea History of echocardiogram JINNY (generalized anxiety disorder) Bipolar II disorder Sjogrens syndrome Fibromyalgia Vitamin deficiency Pneumonia Osteoarthritis Neuropathy IBS (irritable bowel syndrome) High triglycerides High cholesterol Hypertension Migraines Gastrointestinal problem Diabetes Carpal tunnel syndrome Bone fracture Back problem Arthritis Anemia Surgical History History of epidural steroid injection into cervical spine History of esophagogastroduodenoscopy (EGD) History of colonoscopy Hx of removal of cyst Hx of cervical spine surgery H/O gastric sleeve Previous back surgery History of carpal tunnel surgery of left wrist Gastric banding status H/O partial thyroidectomy Hx of arthroscopic knee surgery Hx of tonsillectomy Family History Mother Anxiety Breast cancer Cancer Diabetes Hypertension High cholesterol Psychiatric care Uterine cancer Father Arthritis Diabetes Hypertension High cholesterol Osteoporosis CVA (cerebral vascular accident) Other Colon cancer Depression Mental disorder Social History Smoking Status: Former smoker how long ago did patient quit smoking: quit 22 years ago alcohol intake: current details: 1-2 drinks, 1-2x month substance use type: does not use what type of physical activity do you participate in: walking frequency: 3-4 times per week additional social history: pt denies vaping, denies edibles, denies marijuana use, denies aspirin and ibuprofen use. HPI lumbar spine Details: This documentation accurately reflects the service provided and the decisions made by me, Dr. Tobin Bauman MD 07/03/25 08. Part of today?s visit was documented by Iris Reddy RN, acting as scribe. SANTOS ALLAN is a 59 year old F here today for pre operative appointment for L5-S1 TLIF scheduled 07-10-25. The patient is a 59-year-old female presenting with lumbar disc degeneration at L5-S1. The condition has been causing significant pain, particularly exacerbated by bending, sitting for long periods, and walking long distances. The L5-S1 disc is noted to be the most collapsed, contributing to the patient's symptoms. The patient also has arthritis at the L3-L4 and L4-L5 levels, which contributes to difficulty in walking long distances. The patient has a history of diabetes, which is currently resolved, and she does not require any treatment for it. The patient has undergone a sleeve gastrectomy and is currently using Tirzepatide for weight management, having lost approximately 100 pounds. She plans to discontinue Tirzepatide one week prior to surgery as per instructions. The patient has a history of a mucoid cyst on her finger, which was surgically removed in November. - Musculoskeletal: Reports pain in the lower back exacerbated by bending, sitting, and walking long distances. - Endocrine: Denies current diabetes symptoms. Attestation: Documentation on this patient encounter was supported using ambient scribe technology/ voice AI technology. The patient consented to recording for the purpose of documenting the encounter. Provider reviewed content of the generated note prior to signature. 06/01/25: SANTOS ALLAN is a 59 year old F here today for to discuss her MRI and see all of her options are. She denies having any recent injections and wants to see if that is one of her options. She states that her pain is progressively getting worse. She does have cyclobenzaprine and Vicodin that she takes for her pain as needed. She complains of bilateral low back pain that is worse on the right side. The pain does extend posteriorly down the legs, the right leg is the worse. She denies heart or lung problems. She does have Sjogren's syndrome. She is able to walk long distances but reports it is painful. Sitting for long periods does exacerbate her pain. She's had multiple ablations from pain management. Ortho Exam General General: Yes no acute distress Neurologic: Yes alert and Yes oriented x3 Psychologic: Yes reasonable and appropriate Spine SPINE TESTING CERVICAL THORACIC LUMBAR Musculoskeletal Strength 0=absent - 5=normal Details: Neurological exam of the lower extremities shows 5X5 power. Normal sensation across all dermatomes. No hyperreflexia. There is midline and bilateral paraspinal tenderness of both the cervical and lumbar spine. Coding Level of Care Code Off vis,est,level 4 Diagnoses Lumbar stenosis with neurogenic claudication M48.062 Degenerative disc disease (DDD) of lumbar region with discogenic back pain and leg pain M51.362 Time Spent (min) 35 Assessment and Plan Assessment and Plan (1) Lumbar stenosis with neurogenic claudication: Status: Acute (2) Degenerative disc disease (DDD) of lumbar region with discogenic back pain and leg pain: Status: Acute Plan Again reviewed prior x-rays show a decreased disc height at L5-S1, no significant instability, no acute fractures, no MRI. Reviewed cervical x-rays prior fusion at C5-6 with hardware anterior and posterior. There is a straightening of the normal cervical lordosis, decreased disc height at C4-5. No significant instability. No fractures. Reviewed lumbar MRI from April 13, 2025 which showed L3-4 disc height loss with a disc bulge with facets joint arthropathy and ligamentum flavum hypertrophy resulting in severe spinal stenosis, L4-5 disc bulge and annular fissure with facet joint arthropathy and ligamentum flavum hypertrophy resulting in severe spinal stenosis and mild bilateral foraminal stenosis, L5-S1 disc height loss and disc bulge without any significant spinal stenosis but with moderate bilateral foraminal stenosis. 1. Lumbar disc degeneration at L5-S1 - The patient is scheduled for surgery involving two vertical incisions to relieve nerve pressure and stabilize the spine with screws and rods. - Postoperative pain management includes Tylenol, NSAIDs, muscle relaxants, and opioids as needed. - Early mobilization is encouraged to facilitate recovery. 2. Arthritis at L3-L4 and L4-L5 - This condition will be monitored post-surgery, with physical therapy planned to improve mobility and manage symptoms. 3. Obesity (status post sleeve gastrectomy and Tirzepatide use) - The patient will discontinue Tirzepatide one week before surgery. - Weight management will continue to be monitored postoperatively. 4. History of diabetes (resolved) - No current treatment is required, but the patient is advised to maintain a healthy diet and active lifestyle to support recovery and prevent recurrence. 5. Mucoid cyst on finger - No further intervention is required as it was surgically removed in November. - Follow postoperative instructions for pain management, including taking Tylenol and NSAIDs as scheduled and using muscle relaxants and opioids as needed. - Begin walking and moving as soon as possible after surgery to aid recovery. - Attend follow-up appointments as scheduled for physical therapy and monitoring. - Maintain a healthy diet and active lifestyle to support healing and prevent complications. - Discontinue Tirzepatide one week before surgery as instructed. She has tried multiple non surgical options with no relief. At this time she would like to proceed with surgery. Although she has mild degeneration at L3-4 and L4-5 with mild stenosis, at this point patient does not have neurogenic claudication allow for symptoms seem to be related to severe disc degeneration L5-S1 with height loss, retrolisthesis, foraminal stenosis. I discussed the L5- S1 TLIF fusion surgery in detail and explained the risks, benefits and alternatives. The risks of surgery include but are not limited to infection, bleeding, injury to nerves and vessels, ileus, visceral injury, vascular injury, need for blood transfusion, persistent pain, persistent numbness and weakness, gait abnormality, DVT, pulmonary embolism, pneumonia, atelectasis, hardware failure, pseudoarthrosis, need for further surgery, adjacent segment degeneration. Discussed post-surgery restrictions such as no bending, lifting, or twisting. Answered all questions to the patient?s satisfaction. Patient understands and agrees to proceed with surgery. Consent was signed.Follow up 2 weeks post operatively or sooner if pain, swelling, numbness or associated symptoms, or concerns develop. All questions answered. Patient in agreement of plan.
[2025-07-10] MEDS: Cefazolin 1 GM/5 ML Vial 2 GM IV (14:26)
[2025-07-10] MEDS: Lidocaine 1% (5 ml sdv) 5 ML Vial IV (14:33)
[2025-07-10] MEDS: fentaNYL 100 MCG/2 ML Ampul IV (14:48)
[2025-07-10] MEDS: TRANEXAMIC ACID 1,000 MG/10 ML ML 2000 MG IV (16:45)
[2025-07-10] MEDS: Ketorolac 30 MG/ML Syringe IV (16:47)
--- NOTE | 2025-07-10 17:13 | OP.PCM_ITS ---
Procedures Musculoskeletal [id number]: Other Procedure See Report Operative Report (Standard) Operative Information Date of Procedure: 07/10/25 Pre-Operative Diagnosis: L5-S1 disc degeneration with foraminal stenosis Post-Operative Diagnosis: Same Surgery/Procedure Performed: L5-S1 transforaminal lumbar interbody fusion bonding and composite fabricator: Yes Gang Saw Operator: Saundra Randle Tasks completed by plant attendant or assistant operator: Closing, Removing tissue, Implanting device, Hemostasis: Electrocautery and Retracting Type of Anesthesia: General RN Documented Start/Stop Times: Operation Date: 07/10/25 14:30 Case Time Into Pre-Op 07/10/25 11:26 Anesthesia Start 07/10/25 14:26 Into Room 07/10/25 14:26 Procedure Start 07/10/25 14:59 Procedure End 07/10/25 17:01 Anesthesia End 07/10/25 17:13 Out of Room 07/10/25 17:13 Procedure Start Time: 14:59 Procedure Stop Time: 17:01 Select all DRAINS/GRAFTS/IMPLANTS that apply: Graft Graft details: Allograft cancellous chips, morselized autograft from lamina and facet and Implanted device Implanted device details: DePuy XPac TLIF cage, Viper prime pedicle screw instrumentation Estimated Blood Loss: 30 cc Specimen collected: No Description of surgery: Preoperative diagnosis: L5-S1 disc degeneration with foraminal stenosis Postoperative diagnosis: Same Name of procedure: L5-S1 transforaminal lumbar interbody fusion (TLIF), minimally invasive right side approach, percutaneous pedicle screw instrumentation. . L5-S1 posterior spinal fusion and interbody fusion 16917 ? L5-S1 posterior pedicle screw instrumentation 91729 . L5-S1 insertion of cage 30260 . Local autograft [id number] . Cancellous allograft with DBX Attending Surgeon: Dr. Tobin Bauman Estimated blood loss: 30 mL Anesthesia: GA Complications: None Implants: DePuy Synthes X-PAC TLIF cage, Viper prime screws Indications: Patient is a 59-year-old female who has had a history of low back pain that radiates into right worse than left lower extremity. X-rays and MRI revealed L5-S1 disc degeneration with bilateral lateral recess and foraminal stenosis. Patient was explained all options of treatment which included continued nonoperative treatment measures like rest physical therapy, epidural steroidal injections. After a prolonged period of of nonoperative treatment, patient elected to undergo surgical decompression & fusion since the symptoms severely affected her quality of life. All risks and benefits associated with the procedure were explained to the patient. The risks include but are not limited to infection, bleeding, injury to nerves and vessels, persistent paresthesia, persistent pain, dural tear, need for further procedures, adjacent segment degeneration, pseudoarthrosis, hardware failure, etc. Procedure: The patient was identified in the preoperative holding suite using unique patient identifiers. Skin was marked, consent was reviewed, and all questions were answered. The patient was then brought back to the operative room. A surgical timeout was performed to make sure correct procedure was being done on the correct patient and all operative room staff were on the same page. General endotracheal anesthesia was then given to the patient. Neuromonitoring leads were applied. The patient was then turned prone onto a Reyes table. The back was prepped and draped in usual fashion. IV antibiotic was given as preoperative antibiotic. A final timeout was then again done just before starting the procedure. C-arm AP view was then taken. C-arm was positioned in a way that L5 was centralized and superior endplate of L5 and was parallel to the beam. Spinous process was centered between the pedicles. Midline was marked with skin marker and lateral borders of the pedicles were also marked. Skin marker was also utilized to fredrick transversely across the middle of the pedicles at L5. 2 vertical incisions about 1 inch Extending below this line were taken about 1/2 inch lateral to the pedicle line. The fascia was also incised vertically approximately the same length. Finger dissection was utilized to palpate the superior articular process and facet joint of L5-S1 on the right side. Sequential tubes were docked on the facet joint and 60 mm length and 21 mm diameter tubular retractor was then placed and was attached to the arm attached to the OR table. Muscle tissue was removed with pituitaries and hemostasis was achieved with Bovie. Right inferior articular process of L5 and superior articular process of S1 were exposed with Bovie. Osteotome was utilized to remove a portion of the inferior articular process to expose the articular surface of S1. Some of this resected bone was used as autograft. Enrique was then utilized to remove the rest of the inferior articular process and part of the lamina of L5. Superior articular process of S1 was resected with the help of a bur such that the cut was flush with the superior border of S1 pedicle. The traversing nerve root was identified and carefully retracted to expose the disc. Hemostasis was achieved with bipolar cautery. Blunt spreaders were utilized to enter the disc space under C-arm visualization. Pituitary was used to remove disc material. Curettes of various sizes and angulations were utilized to remove as much of the disc material as possible. End plates were curetted to remove all cartilage. Angled curettes were used to remove disc material from the other side underneath the central annulus. DigitalChalk X-PAC trials were inserted into position and checked under C- arm lateral view. The disc space was then filled with morselized autograft from the lamina and facet mixed with allograft cancellous bone chips mixed with DBX which were then impacted with the trials. An 10 x 25 mm lordotic tall X-PAC cage filled with bone graft was then inserted into the disc space under x-ray control. Care was taken to make sure the cage was inserted deeper to the posterior longitudinal ligament. The expandable cage was then expanded to up to approximately 13 mm anterior height with approximately 15 degrees lordosis. The cage was found to be well fixed and not easily removable. AP and lateral views showed good positioning of the cage. Depuy Viper Prime screw tower was docked onto the transverse processes at L5. This was then slowly moved medially to reach the superior articular process of L5. This was then confirmed on C-arm and then a mallet was utilized to drive the trocar and screw into the pedicle going up to the medial wall of the pedicle on AP view. This was performed both sides. C-arm lateral view confirmed both trocars to be inside vertebral body. The screws were advanced. Similar procedure was done at S1 both sides. Cannulated pedicle screws (Depuy Viper) sizes were 7 x 50 mm bilaterally at L5 and 7 x 45 at S1 levels bilaterally. The lateral view showed good positioning of the screws and cage. 40 mm precontoured titanium 5.5 mm lordotic margaret on both sides was then passed through the screw extensions and reduced down to the screws with the help of Depuy Viper Prime instrumentation system. AP and lateral views of the C-arm showed good positioning of the screws and cage. Final tightening with the torque screwdriver was then completed. Gary was utilized to decorticate the left L5-S1 facet joint and bone graft was placed over this. Hemostasis was achieved with the help of Bovie and FloSeal. Closure was done in layers with 0 Vicryls for the fascia, 2-0 Vicryls for the subcutaneous tissue, and Monocryl for the skin. Dressings were applied covered with Tegaderm. The patient was then turned supine onto a hospital bed. The patient was extubated and taken to PACU in stable condition. The patient tolerated the procedure well and no complications occurred. DigitalChalk X-PAC cage & Viper Prime minimally invasive pedicle screw instrumentation system was utilized in this case. No dural tear was identified in this case. Multimodal neuro monitoring was utilized. All potentials stayed at baseline throughout the procedure. I was present for the entirety of the case and performed the surgery myself. Muffler Installer Saundra Randle PA-C. My physician credit control assistant was a vital part of this case. They were important in appropriate retraction during the case, and protection of soft tissues during the procedure. Their intimate knowledge of the case and my steps aided in safe and expedient completion of the procedure as well as appropriate position of the patient during the surgery. They were also vital in assisting with closure under my direct supervision. Surgical Findings: See operative note Complications Complications: No
--- NOTE | 2025-07-10 17:20 | PCM.POST.ANE ---
Anesthesia: Postop Eval I Current Vital Signs Temperature: 97.3 F Pulse Rate: 96 Blood Pressure: 98/64 Respiratory Rate: 16 Pulse Ox: 97 Oxygen Delivery Method: Room Air Assessment Airway patent: Yes Spontaneous unlabored respirations: Yes Mental status: Awake and Calm nausea: No Vomiting: No Anesthesia Complication: No Fluid Hydration Crystalloid volume administer (ml): 1,300 Total IV fluid infused: 1,300 Progress Note Anesthesia document: Postop Eval 1 completed: Yes
--- NOTE | 2025-07-10 18:10 | POSTOPAN2_ITS ---
Anesthesia Postop Eval I Sum Postop Eval Completion status Anesthesia document: Postop Eval 1 completed: Yes Anesthesia Postop Eval I Summary Anesthesia Postop Eval I Summary: Anesthesia Postop Eval I: Assessment Summary Airway patent Yes 07/10/25 17:21 ELECTRONICS TECHNICIAN APPRENTICE.[email or web address] Spontaneous unlabored Yes 07/10/25 17:21 ELECTRONICS TECHNICIAN APPRENTICE.[email or web address] respirations Mental status Awake,Calm 07/10/25 17:21 ELECTRONICS TECHNICIAN APPRENTICE.[email or web address] nausea No 07/10/25 17:21 ELECTRONICS TECHNICIAN APPRENTICE.[email or web address] Vomiting No 07/10/25 17:21 ELECTRONICS TECHNICIAN APPRENTICE.[email or web address] Anesthesia Postop Eval I: Fluid Summary Crystalloid volume administer 1,300 07/10/25 17:21 ELECTRONICS TECHNICIAN APPRENTICE.[email or web address] (ml) Colloids volume administered ( ml) Blood Product volume administered (ml) Total IV fluid infused 1,300 07/10/25 17:21 ELECTRONICS TECHNICIAN APPRENTICE.[email or web address] Anesthesia Postop Eval I: Summary Notes Anesthesia Complication No 07/10/25 17:21 ELECTRONICS TECHNICIAN APPRENTICE.[email or web address] Anesthesia Complication Comment: Post-operative progress note Anesthesia: Postop Eval II Evaluation Mental status: Awake and Calm Pain Level: 1 nausea: No Vomiting: No Complications Anesthesia Complication: No
--- NOTE | 2025-07-10 18:10 | PCM.POSTANE2 ---
Anesthesia Postop Eval I Sum Postop Eval Completion status Anesthesia document: Postop Eval 1 completed: Yes Anesthesia Postop Eval I Summary Anesthesia Postop Eval I Summary: Anesthesia Postop Eval I: Assessment Summary Airway patent Yes 07/10/25 17:21 MACHINING [email or web address] Spontaneous unlabored Yes 07/10/25 17:21 MACHINING ENGINEER.[email or web address] respirations Mental status Awake,Calm 07/10/25 17:21 MACHINING [email or web address].[email or web address] nausea No 07/10/25 17:21 MACHINING ENGINEER.[email or web address] Vomiting No 07/10/25 17:21 MACHINING [email or web address] Anesthesia Postop Eval I: Fluid Summary Crystalloid volume administer 1,300 07/10/25 17:21 MACHINING [email or web address].[email or web address] (ml) Colloids volume administered ( ml) Blood Product volume administered (ml) Total IV fluid infused 1,300 07/10/25 17:21 MACHINING [email or web address].[email or web address] Anesthesia Postop Eval I: Summary Notes Anesthesia Complication No 07/10/25 17:21 MACHINING [email or web address].[email or web address] Anesthesia Complication Comment: Post-operative progress note Anesthesia: Postop Eval II Evaluation Mental status: Awake and Calm Pain Level: 1 nausea: No Vomiting: No Complications Anesthesia Complication: No
--- NOTE | 2025-07-10 18:49 | PCM.CONS.GEN ---
Assessment & Plan Assessment/Plan (1) Lumbar stenosis with neurogenic claudication: PLAN: Plan Patient is a 59-year-old female who presented to [facility] on 07/10/2025 for planned lumbar fusion procedure. Medicine consulted postoperatively for medical management. 1. L5-S1 disc degeneration with foraminal stenosis ? Orthopedic surgery primary. S/p L5-S1 transforaminal lumbar interbody fusion procedure with Dr. Bauman on 07/10. Tolerated procedure well, no intraoperative complications noted. Postoperative pain control, DVT prophylaxis and further management per orthopedics. Follow-up a.m. labs. PT/OT/case management consulted. 2. Hypertension/hyperlipidemia ? Normotensive postoperatively. Will continue home Lopressor, lisinopril and hydrochlorothiazide with hold parameters. Continue home statin. 3. Generalized anxiety disorder/bipolar 2 disorder ? Follows with psychiatry. Continue home aripiprazole. 4. Sjogren's disease, autoimmune polyarthropathy ? Unclear from records on specific diagnosis with regards to her autoimmune polyarthropathy. Not in acute exacerbation. Continue home leflunomide, sulfasalazine, hydroxychloroquine and cevimeline. 5. GERD ? Continue home PPI. 6. Hypothyroidism ? Continue home Synthroid. DVT prophylaxis: Will defer to orthopedics Total clinical time spent by myself addressing the patient's medical issues, reviewing all the data, and collaborating with patient's care team: 42 minutes. HPI Consult Data Date of Consult: 07/10/25 HPI Narrative Reason for Consultation: Postoperative medical management HPI Narrative: SANTOS ALLAN, is a 59 F who presented to [facility] on 07/10/2025 for planned orthopedic procedure. Medicine consulted postoperatively for medical management. Patient had L5-S1 transforaminal lumbar interbody fusion procedure done with Dr. Bauman today. Tolerated procedure well, no intraoperative complications noted. I saw the patient at bedside this evening postoperatively. Patient was mildly fatigued appearing but otherwise sitting back comfortably in bed, conversing normally, in no acute distress. She reported mild low back pain currently that was tolerable. She denied any other acute concerns at this time. [facility] Medical History Alcohol use Former smoker History of edema Wears glasses Thyroid disease Back pain Injury of head and neck History of hiatal hernia Gastric reflux Sleep apnea History of echocardiogram JINNY (generalized anxiety disorder) Bipolar II disorder Sjogrens syndrome Fibromyalgia Vitamin deficiency Pneumonia Osteoarthritis Neuropathy IBS (irritable bowel syndrome) High triglycerides High cholesterol Hypertension Migraines Gastrointestinal problem Diabetes Carpal tunnel syndrome Bone fracture Back problem Arthritis Anemia Home Medications ?Medication ?Instructions ?Recorded ?Last Taken ?Type calcium 600 mg (as 1 tab PO DAILY@0800 06/23/13 07/09/25 08:00 History carbonate)-vitamin D3 20 mcg (800 unit) tablet (Caltrate with Vitamin D3) cholecalciferol (vitamin D3) 50 2,000 unit PO DAILY 06/23/13 07/09/25 10:00 History mcg (2,000 unit) tablet (Vitamin D3) eletriptan 20 mg tablet (Relpax) 20 mg PO DAILY PRN MIGRAINE 06/23/13 Unknown History cevimeline 30 mg capsule (Evoxac) 30 mg PO BID 08/09/23 07/09/25 23:00 History hydroxychloroquine 200 mg tablet 200 mg PO BID 08/09/23 07/09/25 23:00 History (Plaquenil) leflunomide 20 mg tablet 20 mg PO DAILY 08/09/23 07/09/25 10:00 History lisinopril 20 mg tablet 20 mg PO DAILY 08/09/23 07/09/25 10:00 History metoprolol tartrate 25 mg tablet 12.5 mg PO DAILY 08/09/23 07/10/25 06:30 History multivitamin 1 tab PO DAILY 08/09/23 07/09/25 10:00 History omeprazole 20 mg capsule,delayed 20 mg PO DAILY 08/09/23 07/10/25 06:30 History release pravastatin 80 mg tablet 80 mg PO QHS 08/09/23 07/09/25 23:00 History sulfasalazine 500 mg tablet 1 g PO BID 08/09/23 07/09/25 23:00 History cyclobenzaprine 10 mg tablet 10 mg PO BID PRN muscle spasm 10/12/24 07/09/25 23:00 History gabapentin 400 mg capsule 400 mg PO TID 11/08/24 07/09/25 06:30 History levothyroxine 44 mcg capsule 44 mcg PO MOWEFR 11/08/24 07/10/25 06:30 History hydrocodone-acetaminophen 5-325mg 0.5 - 1 tab PO QD-BID PRN pain 12/07/24 07/07/25 History 5mg-325mg citalopram 20 mg tablet 30 mg (1.5 x 20 mg) PO DAILY 90 02/22/25 07/10/25 06:30 Rx days #135 tabs gabapentin 100 mg capsule 100 mg PO TID 04/05/25 07/10/25 06:30 History tirzepatide 7.5 mg/0.5 mL 10 mg subcut TH 04/05/25 06/28/25 History subcutaneous pen injector (Jimmy) aripiprazole 2 mg tablet 4 mg PO QHS 04/10/25 07/09/25 23:00 History estradiol 0.01% (0.1 mg/gram) 1 applic vaginal MOTH 06/26/25 07/09/25 History vaginal cream hydrochlorothiazide 12.5 mg capsule 12.5 mg PO DAILY 06/26/25 07/09/25 10:00 History potassium chloride 10 mEq 10 meq PO BID 06/26/25 07/09/25 23:00 History tablet,extended release Allergy/AdvReac Type Severity Reaction Status Date / Time sumatriptan (From Imitrex) AdvReac Intermediate Other Verified 07/10/25 11:39 sumatriptan succinate (From AdvReac Intermediate Other Verified 07/10/25 11:39 Imitrex) Family History Mother Anxiety Breast cancer Cancer Diabetes Hypertension High cholesterol Psychiatric care Uterine cancer Father Arthritis Diabetes Hypertension High cholesterol Osteoporosis CVA (cerebral vascular accident) Other Colon cancer Depression Mental disorder Surgical History History of epidural steroid injection into cervical spine History of esophagogastroduodenoscopy (EGD) History of colonoscopy Hx of removal of cyst Hx of cervical spine surgery H/O gastric sleeve Previous back surgery History of carpal tunnel surgery of left wrist Gastric banding status H/O partial thyroidectomy Hx of arthroscopic knee surgery Hx of tonsillectomy Social History Smoking Status: Former smoker how long ago did patient quit smoking: quit 22 years ago alcohol intake: current details: 1-2 drinks, 1-2x month substance use type: does not use what type of physical activity do you participate in: walking frequency: 3-4 times per week additional social history: pt denies vaping, denies edibles, denies marijuana use, denies aspirin and ibuprofen use. ROS Constitutional Constitutional: Reports fatigue; Denies chills, fever(s) or weakness Cardiovascular Cardiovascular: Denies chest pain Respiratory/Chest Respiratory/Chest: Denies shortness of breath at rest Gastrointestinal Gastrointestinal: Denies abdominal pain Musculoskeletal Musculoskeletal: Reports back pain; Denies arthralgias or myalgias Neurologic Neurologic: Denies dizziness, focal weakness, headache(s), numbness or tingling Physical Exam Const alert, oriented x3, no apparent distress and average body habitus Constitutional Narrative: Middle-age female, mildly fatigued appearing but otherwise sitting back comfortably in bed, conversing normally, in no acute distress. General Appearance: cooperative and comfortable HEENT normocephalic, head/scalp atraumatic, hearing grossly normal bilaterally, nasal mucous membranes and turbinates normal and moist oral mucous membranes Eyes PERRL, EOMs intact bilaterally and conjunctivae normal Neck full ROM Chest inspection of chest normal Resp normal respiratory effort, normal air movement, no use of accessory muscles and clear to auscultation bilaterally Cardio regular rate, regular rhythm, no murmurs and peripheral pulses 2+ throughout GI normal to inspection, nondistended, normoactive bowel sounds, soft to palpation, non-tender and non-distended Back/Spine normal ROM Back/Spine Narrative: Surgical dressing noted on low back. Extremity normal to inspection and no pedal edema Skin no rashes or lesions noted Psych mental status grossly normal Lab / Micro Data 06/27/25 07:09 06/27/25 07:09 Labs: Laboratory Results - last 24 hr 07/10/25 11:49: POC Glucose 79 Charges/Coding Visit Charges Inpatient E&M: 88406 Subs Hosp L2
[2025-07-10] MEDS: 0.9% Saline Lock 10 ML Syringe IV (19:10)
[2025-07-10] MEDS: Potassium Chloride Oral Tablet 10 MEQ PO (21:41)
[2025-07-10] MEDS: Senna/Docusate Sodium 1 Tablet 2 TABLET PO (21:43)
[2025-07-10] MEDS: Cefazolin 2 GM in 0.9% Normal Saline (100mL Bag) 100 ML IV (21:49)
[2025-07-11 00:33] VITALS: O2SAT 97
--- OUTSIDE RECORDS SUMMARY | 2025-07-11 01:41 | XMS RPT_ITS | CCD ---
Author Organization [facility] ion Partnership [facility] Care Team Providers Care Fur Dresser Name Role Phone Ana Bolaños MD Primary Care Provider Ana Bolaños MD Primary Care Provider Gavin Moctezuma MD Unavailable Garret Christensen Unavailable Ana Bolaños MD Primary Care Provider Ana Bolaños MD Primary Care Provider Gavin Moctezuma MD Unavailable Garret Christensen Unavailable GAVIN MOCTEZUMA Attending Unavailable GANTA, ANA Primary Care Unavailable GARRET BURT Attending Unavailable GANTA, ANA Primary Care Unavailable GARRET BURT Attending Unavailable GANTA, ANA Primary Care Unavailable GAVIN MOCTEZUMA Attending Unavailable GANTA, ANA Primary Care Unavailable GARRET BURT Attending Unavailable Ana Bolaños MD Primary Care Provider Luz Lu PA-Chel L Unavailable [phone] 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, 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 Naty KOLB Angelique Unavailable Aly KOLB Edilson L Unavailable Naty PA-Robert Angelique Unavailable OLDER, FIOR Referring Unavailable GANTA, ANA Primary Care Unavailable OLDER, FIOR Referring Unavailable GANTA, ANA Primary Care Unavailable GANTA, ANA Primary Care Unavailable BRANDT, LUCILLE M Referring Unavailable GANTA, ANA Primary Care Unavailable LUZ MEEKS Attending Unavailable GANTA, ANA Primary Care Unavailable GANTA, ANA Attending Unavailable GANTA, ANA Primary Care Unavailable GANTA, ANA Referring Unavailable GANTA, ANA Primary Care Unavailable GANTA, ANA Attending Unavailable GANTA, ANA Primary Care Unavailable BRANDT, LUCILLE M Attending Unavailable GANTA, ANA Primary Care Unavailable BRANDT, LUCILLE M Referring Unavailable GANTA, ANA Primary Care Unavailable BRANDT, LUCILLE M Referring Unavailable GANTA, ANA Primary Care Unavailable GANTA, ANA Referring Unavailable GANTA, ANA Primary Care Unavailable BESSIE, KATARINA Referring Unavailable BESSIE, KATARINA Attending Unavailable GANTA, ANA Primary Care Unavailable WISWELL, ASH Attending Unavailable GANTA, ANA Primary Care Unavailable OLDER, FIOR Attending Unavailable GANTA, ANA Primary Care Unavailable GANTA, ANA Attending Unavailable GANTA, ANA Primary Care Unavailable LUZ MEEKS Attending Unavailable GANTA, ANA Primary Care Unavailable OLDER, FIOR Attending Unavailable GANTA, ANA Primary Care Unavailable GANTA, ANA Referring Unavailable GANTA, ANA Primary Care Unavailable OLDER, FIOR Referring Unavailable GANTA, ANA Primary Care Unavailable WISWELL, ASH Attending Unavailable GANTA, ANA Primary Care Unavailable ANGELIQUE BRADFORD Attending Unavailable GANTA, ANA Primary Care Unavailable OLDER, FIOR Referring Unavailable GANTA, ANA Primary Care Unavailable OLDER, FIOR Attending Unavailable GANTA, ANA Primary Care Unavailable GANTA, ANA Referring Unavailable GANTA, ANA Primary Care Unavailable OLDER, FIOR Referring Unavailable GANTA, ANA Primary Care Unavailable OLDER, FIOR Referring Unavailable GANTA, ANA Primary Care Unavailable WISWELL, ASH Attending Unavailable GANTA, ANA Primary Care Unavailable GANTA, ANA Referring Unavailable GANTA, ANA Primary Care Unavailable FERMINJACQUIE SCALES M Attending Unavailable GANTA, ANA Primary Care Unavailable GANTA, ANA Attending Unavailable GANTA, ANA Primary Care Unavailable OLDER, FIOR Attending Unavailable GANTA, ANA Primary Care Unavailable OLDER, FIOR Referring Unavailable GANTA, ANA Primary Care Unavailable OLDER, FIOR Referring Unavailable GANTA, ANA Primary Care Unavailable RICHIE NEWMAN Attending Unavailable Siska, Denver Referring Unavailable Siska, Denver Attending Unavailable Ganta, Ana Primary Care Unavailable Razia, Saundra Referring Unavailable Razia, Saundra Attending Unavailable Ganta, Ana Primary Care Unavailable Ganta, Ana Primary Care Unavailable GEOVANNY, EDILSON Referring Unavailable GEOVANNY, EDILSON Attending Unavailable Wiswell, Ash Referring Unavailable Wiswell, Ash Attending Unavailable Ganta, Ana Primary Care Unavailable Ganta, Ana Primary Care Unavailable Ganta, Ana Referring Unavailable Bauman, Tobin Attending Unavailable Ganta, Ana Referring Unavailable Razia, Saundra Attending Unavailable Ganta, Ana Primary Care Unavailable Siska, Denver Attending Unavailable Ganta, Ana Referring Unavailable Ganta, Ana Primary Care Unavailable Josue Davies Attending Unavailable Ganta, Ana Referring Unavailable Razia, Saundra Attending Unavailable Siska, Denver Attending Unavailable Ganta, Ana Referring Unavailable Siska, [place] Consulting Unavailable Siska, Denver Referring Unavailable Ganta, Ana Primary Care Unavailable Siska, Denver Attending Unavailable Siska, Denver Consulting Unavailable Siska, Denver Referring Unavailable Ganta, Ana Primary Care Unavailable Siska, Denver Attending Unavailable Luis Limon Attending Unavailable Siska, Denver Attending Unavailable Ganta, Ana Primary Care Unavailable Ganta, Ana Referring Unavailable Siska, Denver Attending Unavailable Ganta, Ana Referring Unavailable Ganta, Ana Primary Care Unavailable Ganta, Ana Referring Unavailable Siska, Denver Attending Unavailable Ganta, Ana Primary Care Unavailable Ganta, Ana Referring Unavailable Siska, Denver Attending Unavailable Siska, Denver Referring Unavailable Siska, Denver Attending Unavailable Ganta, Ana Primary Care Unavailable Ganta, Ana Primary Care Unavailable Ganta, Ana Referring Unavailable Bauman, Tobin Attending Unavailable Siska, Denver Attending Unavailable Ganta, Aan Referring Unavailable Ganta, Ana Primary Care Unavailable Ganta, Ana Referring Unavailable Ganta, Ana Primary Care Unavailable Leo OUTSIDE PLANT TECHNICIAN, Sobeida Sofia Attending Unavailabl e Ganta, Ana Primary Care Unavailable Josue Davies Attending Unavailable Ganta, Ana Primary Care Unavailable Josue Davies Attending Unavailable Ganta, Ana Primary Care Unavailable Bauman, Tobin Referring Unavailable Bauman, Tobin Attending Unavailable Allergies Allergy Classification Reported Allergen(s) Allergy Type Date of Onset Reaction(s) Facility (20 sources) Acetaminophen / HYDROcodone; Translations: [HYDROCODONE-ACET AMINOPHEN] Drug Allergy 9 Itching [facility] Work Phone: (20 sources) gabapentin; Translations: [GABAPENTIN] Drug Allergy 9 Swelling [facility] Work Phone: (20 sources) SUMAtriptan; Translations: [SUMATRIPTAN] Drug Allergy 7 Other [facility] (13 sources) topiramate Drug Allergy 3 Swelling [facility] (12 sources) SUMAtriptan; Translations: [sumatriptan succinate] Drug Allergy 3 Other [facility] (20 sources) predniSONE; Translations: [PREDNISONE] Drug Allergy 4 Mental Status Change [facility] (1 source) SUMAtriptan Drug Allergy 5 [facility] (1 source) topiramate Drug Allergy 5 [facility] Medications Current Medications Medication Drug Class(es) Dates Sig (Normalized) Sig (Original) ALPRAZolam 0.25 mg disintegrating oral tablet (2 sources) Benzodiazepine Start: 11-18-2021 ALPRAZolam (NIRAVAM) dissolvable tablet 0.25 mg Start: 10-13-2019 ALPRAZolam (NI RAVAM) dissolvable tablet 0.25 mg ARIPiprazole 2 mg oral tablet (20 sources) Atypical Antipsychotic Start: 03-30-2025 take 2 tablets by mouth once daily ARIPiprazole (ABILIFY) 2 mg tablet Take 2 tablets by mouth once daily. 03/30/2025 Active Start: 07-10-2019 ARIPiprazole ( ABILIFY) 2 MG tablet 4 mg nightly 0 07/10/2019 Active Start: 06-23-2013 take 4 mg by mouth once daily Aripiprazole Active 4 MG PO DAILY June 23, 2013 12:00am Start: 04-11-2012 End: 03-30-2025 take 1 tablet by mouth twice daily aripiprazole (ABILIFY) 2 mg tablet Take 1 tablet by mouth twice daily. 04/11/2012 03/30/2025 Discontinued (Adjust Sig - Block E-Cancel) Start: 04-11-2012 ARIPiprazole ( Abilify) 2 MG tablet Every 24 hours. 0 04/11/2012 Active Comment on above: Take 1 tablet by yareyl twice daily. ascorbic acid 500 mg oral tablet (11 sources) Vitamin C Start: 3 take 1 tablet by mouth once daily Ascorbic Acid (Vitamin C) (Vitamin C) 500 MG tablet Active 500 MG PO DAILY@799June 23, 2013 12:00am aspirin 81 mg delayed release oral tablet (20 sources) Platelet Aggregation Inhibitor, Nonsteroidal Anti-inflammatory Drug End: 3 take 1 tablet by mouth once daily aspirin, enteric coated (ASPIRIN, ENTERIC COATED) 81 mg EC tablet Take 81 mg by mouth once daily. 0 12/04/2022 Discontinued (Discontinued by Patient) End: 09-10-2022 aspirin 81 MG chewable table t Every 24 hours. 0 09/10/2022 Discontinued (Med list cleanup) take 1 tablet by yarely th once daily aspirin 81 MG tablet Take 81 mg by mouth daily [facility] 0 Active Comment on above: Take 81 mg by mouth once daily. biotin 1 mg oral tablet (12 sources) Start: 06-23-2013 take 1 mg by mouth once daily Biotin Active 1 MG PO DAILY June 23, 2013 12:00am BIOTIN 5000 PO T emily by mouth 0 Active Calcium Carb-Cholecalciferol (CALCIUM 600 + D PO) (1 source) Calcium Carb-Cholecalciferol (CALCIUM 600 + D PO) Take by mouth 0 Active calcium carbonate 600 mg / cholecalciferol 0.01 mg oral tablet (11 sources) Vitamin D Start: 013 take 1 tablet by mouth once daily Calcium Carbonate-Vitamin D3 (Caltrate-600 With Vit D Tab) 1 TAB tablet Active 1 TABLET PO DAILY@799June 23, 2013 12:00am calcium chloride 0.0014 meq/ml / potassium chloride 0.004 meq/ml / sodium chloride 0.103 meq/ml / sodium lactate 0.028 meq/ml injectable solution (2 sources) Start: 022 lactated ringers infusion Start: 10-13-2019 lactated ringe rs infusion celecoxib 200 mg oral capsule (1 source) Nonsteroidal Anti-inflammatory Drug Start: 11-16-2013 End: 10-13-2019 take 1 capsule by mouth once daily celecoxib (CELEBREX) 200 MG capsule Take 200 mg by mouth daily 0 11/16/2013 10/13/2019 Discontinued (LIST CLEANUP) cephalexin 500 mg oral capsule (5 sources) Cephalosporin Antibacterial Start: 04-10-2025 End: 04-17-2025 take 1 capsule by mouth twice daily cephALEXin (KEFLEX) 500 mg capsule Take 1 capsule by mouth two times a day for 7 days. 14 capsule 04/10/2025 04/17/2025 Active Start: 03-07-2025 End: 03-14-2025 take 1 capsule by mouth twice daily cephALEXin (KEFLEX) 250 mg capsule Take 1 capsule by mouth two times a day for 7 days. 14 capsule 03/07/2025 03/14/2025 Active cevimeline 30 mg oral capsule (20 sources) Cholinergic Receptor Agonist Start: 08-08-2019 cevimeline (EVOXAC) 30 MG capsule Start: 02-22-2019 take 2 capsules by [facility] twice daily cevimeline (EVOXAC) 30 mg ORAL capsule Take 60 mg by mouth twice daily. 0 02/22/2019 Active Start: 02-22-2019 cevimeline (Ev oxac) 30 MG capsule every 12 hours. 0 02/22/2019 Active Start: 06-23-2013 take 1 capsule by [facility] three times daily Cevimeline (Evoxac) 30 MG capsule Active 30 MG PO THREE TIMES A DAY June 23, 2013 12:00am Comment on above: Take 60 mg by mouth twice daily. cholecalciferol 0.05 mg oral tablet (20 sources) Vitamin D Start: 06-23-20 13 take 1 tablet by mouth once daily Cholecalciferol (Vitamin D3) (Vitamin D3) 2,000 UNIT tablet Active 2000 UNIT PO DAILY June 23, 2013 12:00am take 1 tablet by [facility] once daily Cholecalciferol, Vitamin D3, (VITAMIN D) 1,000 unit tab Take 1,000 Units by mouth once daily. Active End: 04-05-2023 take 1 tablet by mouth in the morning cholecalciferol (Vitamin D-3) 25 MCG (1000 UT) tablet Take 2,000 Units by mouth in the morning. 0 04/05/2023 Discontinued (Ineffective) take 1000 [IU] by mo [facility] once daily Cholecalciferol (VITAMIN D3 PO) Take 1,000 Units by mouth daily 0 Active Cholecalciferol (VITAMIN D3 PO) Take 1,000 Units by mouth 0 Active Comment on above: Take 1,000 Units by mouth once daily. citalopram 20 mg oral tablet (20 sources) Serotonin Reuptake Inhibitor Start: 07-23-2022 citalopram (CeleXA) 20 MG tablet daily. 0 07/23/2022 Active Start: 06-23-2013 take 3 tablets by mo [facility] once daily Citalopram (Celexa) 10 MG tablet Active 30 MG PO DAILY June 23, 2013 12:00am Start: 11-28-2009 citalopram hyd robromide(CELEXA 20 MG TAB) Take 1.5 tablet daily. 0 0 11/28/2009 Active Start: 11-28-2009 citalopram (CE LINK) 20 MG tablet Take by mouth 0 11/28/2009 Active take 1 tablet by yarely once daily citalopram (CeleXA) 10 MG tablet Take 10 mg by mouth daily. 0 Active Comment on above: Take 1.5 tablet reba y. copper gluconate 2 mg oral capsule (1 source) Copper Gluconate (COPPER CAPS) 2 MG CAPS Take by mouth 0 Active CPAP Machine MISC (9 sources) CPAP Machine MIS C by Does not apply route 12-20 cm h2o 0 Active cyanocobalamin, vitamin B-12, (VITAMIN B-12 ORAL) (20 sources) take 5000 mg by mouth every other day cyanocobalamin, vitamin B-12, (VITAMIN B-12 ORAL) Take 5,000 mg by mouth every other day. Active cyclobenzaprine hydrochloride 10 mg oral tablet (20 sources) Muscle Relaxant Start: 05-04-20 19 take 1 tablet by mouth three times daily cyclobenzaprine (FLEXERIL) 10 mg tablet Take 1 tablet by mouth three times daily. 9 tablet 05/04/2019 Active take 1 tablet by mouth at bedtim e cyclobenzaprine (FLEXERIL) 10 MG tablet Take 10 mg by mouth in the morning and at bedtime 0 Active Comment on above: Take 1 tablet by yarely three times daily. diclofenac sodium 50 mg delayed release oral tablet (19 sources) Nonsteroidal Anti-inflammatory Drug End: 3 take 1 tablet by mouth once daily diclofenac, EC, (VOLTAREN) 50 mg EC tablet Take 50 mg by mouth once daily. 0 12/04/2022 Discontinued (Discontinued by Patient) take 1 tablet by mouth twice kristin ly diclofenac (CATAFLAM) 50 MG tablet Take 50 mg by mouth 2 times daily 0 Active Comment on above: Take 50 mg by mouth once daily. 1 ml diphenhydrAMINE hydrochloride 50 mg/ml cartridge (2 sources) Histamine-1 Receptor Antagonist Start: 11-18-2021 End: 11-18-2021 diphenhydrAMINE (BENADRYL) injection 12.5 mg Start: 10-13-2019 End: 10-13-2019 diphenhydrAMINE (BENADRYL) i njection 12.5 mg eletriptan 20 mg oral tablet (20 sources) Serotonin-1b and Serotonin-1d Receptor Agonist Start: 08-02-2023 End: 02-08-2025 eletriptan (RELPAX) 20 mg tablet Indications: Migraine without aura and without status migrainosus, not intractable Take 1 at start of headache, may repeat in 2 hours if necessary (total of 3 tablets) 14 tablet 5 02/08/2025 Active Start: 06-23-2013 eletriptan (RE LPAX) 20 mg tablet Indications: Migraine without aura and without status migrainosus, not intractable Take 1 at start of headache, may repeat in 2 hours if necessary (total of 3 tablets) 14 tablet 5 11/06/2020 Active Comment on above: Take 1 at start of h eadache, may repeat in 2 hours if necessary (total of 3 tablets) estradiol 0.1 mg/ml vaginal cream (16 sources) Estrogen Start: 05-07-2025 estradiol (ESTRACE) 0.01 % (0.1 mg/gram) vaginal cream Indications: Vaginal atrophy apply 1 gram of cream to lower vagina at bedtime twice weekly 42.5 g 2 05/07/2025 Active Start: 03-22-2025 End: 05-07-2025 estradiol (ESTRACE) 0.01 % ( 0.1 mg/gram) vaginal cream Indications: Vaginal atrophy apply 1 gram of cream to lower vagina qhs daily for 2 weeks, and then twice weekly 42.5 g 03/22/2025 05/07/2025 Discontinued 21 day ethinyl estradiol 0.987522 mg/hr / etonogestrel 0.005 mg/hr vaginal system (12 sources) Progestin, Estrogen Start: 06-23-2013 Etonogestrel-Ethinyl Estradiol (Nuvaring Vaginal Ring) 1 EACH ring Active 1 EACH VG DIRECTED June 23, 2013 12:00am Start: 07-25-2007 etonogestrel-e thinyl estradiol (NUVARING) 0.12-0.015 MG/24HR vaginal ring Place vaginally 0 07/25/2007 Active folic acid 1 mg oral tablet (12 sources) Start: 06-23-2013 take 2 mg by mouth once daily Folic Acid Active 2 MG PO DAILY@0800 June 23, 2013 12:00am Start: 03-28-2012 folic acid (FO LVITE) 1 MG tablet Take 2 tablets daily in the am 0 03/28/2012 Active gabapentin 400 mg oral capsule (20 sources) Anti-epileptic Agent Start: 04-20-2025 End: 10-17-2025 take 1 capsule by mouth three times daily gabapentin (NEURONTIN) 400 mg capsule Take 1 capsule by mouth three times a day for 180 days. 90 capsule 5 04/20/2025 10/17/2025 Active Start: 03-28-2025 End: 09-24-2025 take 1 capsule by mouth three times daily gabapentin (NEURONTIN) 100 mg capsule Take 1 capsule by mouth three times a day for 180 days. 90 capsule 5 03/28/2025 09/24/2025 Active Start: 07-18-2024 End: 01-14-2025 take 1 capsule by mouth three times daily gabapentin (NEURONTIN) 400 mg capsule Take 1 capsule by mouth three times a day for 180 days. 90 capsule 5 07/18/2024 Active Start: 06-02-2024 End: 08-31-2024 take 1 capsule by mouth twice daily gabapentin (NEURONTIN) 100 mg capsule Take 1 capsule by mouth two times a day for 90 days. 60 capsule 2 06/02/2024 07/18/2024 Discontinued Start: 09-29-2023 End: 10-10-2024 take 1 capsule by mouth three times daily gabapentin (NEURONTIN) 300 mg capsule Take 1 capsule by mouth three times a day for 180 days. 270 capsule 1 04/13/2024 07/18/2024 Discontinued Start: 08-19-2023 End: 10-18-2023 take 1 capsule by mouth in the morning gabapentin (Neurontin) 300 MG capsule Take 300 mg by mouth in the morning. 0 08/19/2023 10/18/2023 Active Start: 08-02-2023 End: 10-31-2023 take 1 capsule by mouth once daily at bedtime gabapentin (NEURONTIN) 100 mg capsule Take 1 capsule by mouth daily at bedtime for 90 days. 30 capsule 2 08/02/2023 08/19/2023 Discontinued Comment on above: Take 1 capsule by mo uth daily at bedtime for 90 days. Take 1 capsule by mo uth daily at bedtime for 60 days. Take 1 capsule by mo uth three times a day for 180 days. 1 ml hydrALAZINE hydrochloride 20 mg/ml injection (1 source) Arteriolar Vasodilator Start: 2019 hydrALAZINE (APRESOLINE) injection 5 mg hydroCHLOROthiazide 12.5 mg oral capsule (20 sources) Thiazide Diuretic Start: 2024 End: 2024 take 1 capsule by mouth once daily hydroCHLOROthiazide 12.5 mg capsule Take 1 capsule by mouth once daily. 90 capsule 1 05/02/2025 Active Start: 12-25-2024 End: 03-12-2025 take 1 capsule by mouth once daily hydroCHLOROthiazide 12.5 mg capsule Take 1 capsule by mouth once daily. 90 capsule 1 12/25/2024 03/12/2025 Discontinued Start: 01-07-2022 take 1 capsule by mo uth once daily hydroCHLOROthiazide (MICROZIDE) 12.5 MG capsule Take 12.5 mg by mouth daily 0 01/07/2022 Active take 1 tablet by yarely th in the morning hydroCHLOROthiazide (HYDRODiuril) 12.5 MG tablet Indications: Hypertension Take 12.5 mg by mouth in the morning. 0 Active Comment on above: Take 12.5 mg by mout h once daily. 1 ml HYDROmorphone hydrochloride 1 mg/ml cartridge (6 sources) Opioid Agonist Start: 11-18-2021 HYDROmorphone (DILAUDID) injection 0.5 mg Start: 11-18-2021 HYDROmorphone (DILAUDID) injection 0.25 mg Start: 10-13-2019 HYDROmorphone (DILAUDID) injection 1 mg Start: 10-13-2019 HYDROmorphone (DILAUDID) injection 0.5 mg Start: 10-13-2019 HYDROmorphone (DILAUDID) injection 0.25 mg hydroxychloroquine sulfate 200 mg oral tablet (20 sources) Antimalarial, Antirheumatic Agent Start: 02-12-2022 hydroxychloroquine (Plaquenil) 200 MG tablet Take 200 mg by mouth at noon and 200 mg in the evening. 0 02/12/2022 Active Start: 08-08-2019 hydroxychloroq uine (PLAQUENIL) 200 MG tablet daily 0 08/08/2019 Active Start: 10-11-2012 take 200 mg by mouth twice daily at mealtime Hydroxychloroquine Active 200 MG PO TWICE DAILY WITH MEALS June 23, 2013 12:00am Comment on above: Take 1 tablet by yarely twice daily. 4 ml labetalol hydrochloride 5 mg/ml cartridge (1 source) beta-Adrenergic Osei Start: 10-13-2019 labetalol (NORMODYNE;TRANDATE) injection 5 mg labetalol (NORMODYNE;TRANDATE) injection 10 mg (1 source) Start: 11-18-2021 labetalol (NORMODYNE;TRANDATE) injection 10 mg leflunomide 20 mg oral tablet (20 sources) Antirheumatic Agent Start: 07-15-2022 leflunomide (Arava) 20 MG tablet daily. 0 07/15/2022 Active Start: 09-10-2021 take 2 tablets by mo ut once daily leflunomide (ARAVA) 10 mg tablet Take 2 tablets by mouth once daily. 09/10/2021 Active Comment on above: Take 2 tablets by mo uth once daily. leucovorin 15 mg oral tablet (12 sources) Folate Analog Start: 06-23-2013 take 15 mg by mouth every week Leucovorin Calcium Active 15 MG PO EVERY WEEK June 23, 2013 12:00am Aermyevcy-N7-[id number]-Al gal Oil (Metanx Capsule) 1 EACH capsule (11 sources) Start: 06-23-2013 Rrjdshsxe-F9-[id number]-A lgal Oil (Metanx Capsule) 1 EACH capsule Active 1 EACH PO DAILY June 23, 2013 7:50am Start: 06-23-2013 Yusllndke-W4-C ju14-Vdrsn Oil (Metanx Capsule) 1 EACH capsule Active 1 EACH PO DAILY June 22, 2013 11:00pm Start: 06-23-2013 Hppvhghnf-B0-B ni36-Btrkd Oil (Metanx Capsule) 1 EACH capsule Active 1 EACH PO DAILY June 23, 2013 12:00am levothyroxine sodium 0.088 mg oral tablet (20 sources) l-Thyroxine Start: 03-08-2023 End: 10-02-2024 levothyroxine (SYNTHROID) 88 mcg tablet Indications: Acquired hypothyroidism Take 1/2 tablet 3 days a week and whole tablet rest of the week. 90 tablet 3 10/03/2024 Active Start: 02-04-2018 take 1 tablet by yarely th once daily levothyroxine (Synthroid, Levoxyl) 88 MCG tablet Indications: Hypothyroidism Take 88 mcg by mouth daily. 0 05/20/2022 Active Start: 06-23-2013 take 75 ug by mouth once daily Levothyroxine Active 75 MCG PO DAILY June 23, 2013 12:00am Comment on above: Take 1 tablet by yarely th daily before breakfast. Take 1/2 tablet 3 da ys a week and whole tablet rest of the week. 10 ml lidocaine hydrochloride 10 mg/ml injection (2 sources) Antiarrhythmic, Amide Local Anesthetic Start: 11-18-2021 End: 11-18-2021 lidocaine PF 1 % injection 1 mL Start: 10-13-2019 End: 10-13-2019 lidocaine PF 1 % injection 1 mL lisinopril 20 mg oral tablet (20 sources) Angiotensin Converting Enzyme Inhibitor Start: 03-09-2022 take 1 tablet by mouth twice daily lisinopril (ZESTRIL) 20 mg tablet Take 1 tablet by mouth twice daily. 180 tablet 3 03/08/2023 Active Start: 02-14-2018 take 1 tablet by yarely th once daily lisinopril (ZESTRIL, PRINIVIL) 5 mg tablet Indications: Essential hypertension Take 1 tablet by mouth once daily. 90 tablet 1 02/14/2018 Active Comment on above: Take 1 tablet by yarely th once daily. Take 1 tablet by yarely th twice daily. Magnesium (1 source) take 1 tablet by mouth once daily magnesium (MAGNESIUM-OXIDE) 250 MG TABS tablet Take 250 mg by mouth daily 0 Active MEDICATION, NON-DATABASE (20 sources) MEDICATION, NON-DATABASE Alphalipoic Active melatonin 3 mg oral tablet (20 sources) Start: 11-18-19 End: 12-05-19 23 melatonin 3 mg tablet Indications: Insomnia, unspecified type Take 1 tablet at approximately 7 PM. 30 tablet 2 11/17/2021 12/04/2022 Discontinued (Discontinued by Patient) Comment on above: Take 1 tablet at gerri roximately 7 PM. meperidine hydrochloride 50 mg/ml injectable solution (2 sources) Opioid Agonist Start: 11-19-19 meperidine (DEMEROL) injection 12.5 mg Start: 10-13-2019 meperidine (DE MEROL) injection 12.5 mg metFORMIN hydrochloride 1000 mg oral tablet (11 sources) Biguanide Start: 06-23-2013 take 1000 mg by mouth once daily Metformin Active 1000 MG PO DAILY June 23, 2013 12:00am 2 ml methotrexate 25 mg/ml injection (13 sources) Folate Analog Metabolic Inhibitor Start: 06-30-2019 End: 10-13-2019 Methotrexate Sodium, PF, (RHEUMATREX) 50 MG/2ML SOLN chemo injection Start: 06-23-2013 take 20 mg by mouth every week Methotrexate Sodium Active 20 MG PO Q7D June 23, 2013 12:00am Methotrexate Sod ium, PF, (RHEUMATREX) 50 MG/2ML SOLN chemo injection Inject 20 mg into the skin once a week 0 Active metoprolol tartrate 25 mg oral tablet (20 sources) beta-Adrenergic Osei Start: 05-09-2024 take 0.5 tablet by mouth once daily metoprolol tartrate, short acting, (LOPRESSOR) 25 mg tablet Take 0.5 tablets by mouth once daily. 90 tablet 3 05/09/2024 Active Start: 06-04-2022 metoprolol suc cinate XL (Toprol-XL) 25 MG 24 hr tablet Start: 06-04-2022 take 1 tablet by yarely th once daily in the morning metoprolol succinate XL (Toprol-XL) 25 MG 24 hr tablet TAKE 1 TABLETBY MOUTH EVERY MORNING 0 06/04/2022 Active Start: 12-09-2021 metoprolol suc cinate (TOPROL XL) 25 MG extended release tablet Take 12.5 mg by mouth 2 times daily 0 12/09/2021 Active Start: 12-09-2021 take 1 tablet by yarely th once daily metoprolol succinate (TOPROL XL) 25 MG extended release tablet Take 25 mg by mouth daily 0 12/09/2021 Active Multivitamin With Folic Acid (Thera) 1 TABLET tablet (11 sources) Start: 06-23-2013 take 1 tablet by mouth once daily Multivitamin With Folic Acid (Thera) 1 TABLET tablet Active 1 TABLET PO DAILY June 23, 2013 7:55am Start: 06-23-2013 take 1 tablet by yarely th once daily Multivitamin With Folic Acid (Thera) 1 TABLET tablet Active 1 TABLET PO DAILY June 22, 2013 11:00pm Start: 06-23-2013 take 1 tablet by yarely th once daily Multivitamin With Folic Acid (Thera) 1 TABLET tablet Active 1 TABLET PO DAILY June 23, 2013 12:00am nabumetone 500 mg oral tablet (11 sources) Nonsteroidal Anti-inflammatory Drug Start: 06-23-2013 take 500 mg by mouth once daily as needed Nabumetone Active 500 MG PO DAILY NEEDED June 23, 2013 12:00am nitrofurantoin, macrocrystals 25 mg / nitrofurantoin, monohydrate 75 mg oral capsule (4 sources) Nitrofuran Antibacterial Start: 01-25-2025 End: 01-27-2025 take 1 capsule by mouth twice daily nitrofurantoin monohydrate and macrocrystal (MACROBID) 100 mg capsule Take 1 capsule by mouth two times a day for 2 days. 4 capsule 01/25/2025 01/27/2025 Active omeprazole 20 mg delayed release oral capsule (20 sources) Proton Pump Inhibitor Start: 02-22-2023 End: 12-13-2024 take 1 capsule by mouth once daily omeprazole (PRILOSEC) 20 mg capsule Take 1 capsule by mouth once daily. 90 capsule 3 12/13/2024 Active Start: 09-03-2022 End: 12-02-2022 take 1 capsule by mouth once daily omeprazole (PriLOSEC) [address] capsule Take 1 capsule (20 mg) by mouth daily. Do not crush or chew. 90 capsule 0 12/02/2022 Active oxybutynin chloride 5 mg oral tablet (1 source) Cholinergic Muscarinic Antagonist Start: 08-10-2019 oxybutynin (DITROPAN) 5 MG tablet oxyCODONE (1 source) Opioid Agonist Start: 10-13-2019 End: 10-13-2019 oxyCODONE (ROXICODONE) immediate release tablet 5 mg phentermine hydrochloride 37.5 mg oral tablet (7 sources) Sympathomimetic Amine Anorectic Start: 02-04-2024 End: 05-04-2024 take 39-39.9 tablets by mouth once daily before breakfast Phentermine HCl 37.5 mg tablet Indications: Class 2 obesity due to excess calories without serious comorbidity with body mass index (BMI) of 39.0 to 39.9 in adult Take 1 tablet by mouth daily before breakfast for 90 days. 30 tablet 2 02/04/2024 05/04/2024 Active polysaccharide iron complex 150 mg oral capsule (1 source) Start: 02-04-2018 iron polysaccharides (NIFEREX) 150 MG capsule Take 150 mg by mouth 0 02/04/2018 Active potassium chloride 10 meq extended release oral tablet (20 sources) Start: 04-05-2025 take 2 tablets by mouth twice daily potassium chloride 20 mEq TbER Take 2 tablets by mouth two times a day. 8 tablet 04/05/2025 Active Start: 01-20-2023 End: 05-02-2025 take 1 tablet by mouth twice daily potassium chloride (K-TAB) 10 mEq tablet Indications: Hypokalemia Take 1 tablet by mouth two times a day. 180 tablet 2 05/02/2025 Active Comment on above: Take 1 tablet by yarely twice daily. potassium nitrate 0.05 mg/mg / sodium fluoride 0.011 mg/mg toothpaste (20 sources) Start: 06-23-2013 Sodium Fluoride-Pot Nitrate (Prevident 5000 Sensitive Paste) 100 ML paste Active 100 ML DT DAILY June 23, 2013 12:00am Start: 11-28-2007 sodium fluorid e/pot nitrate(PREVIDENT 5000 SENSITIVE 1.1 %-5 % DENTAL PASTE) 0 11/28/2007 Active pravastatin sodium 80 mg oral tablet (20 sources) HMG-CoA Reductase Inhibitor Start: 08-14-2024 take 1 tablet by mouth once daily pravastatin (PRAVACHOL) 80 mg tablet Take 1 tablet by mouth once daily. 90 tablet 3 08/14/2024 Active take 1 tablet by mouth once reba y pravastatin (PRAVACHOL) 80 mg tablet Take 80 mg by mouth once daily. Active pregabalin 100 mg oral capsule (11 sources) Start: 06-23-2013 take 1 capsule by mouth three times daily Pregabalin (Lyrica) 100 MG capsule Active 100 MG PO THREE TIMES A DAY June 23, 2013 12:00am 1 ml promethazine hydrochloride 25 mg/ml injection (1 source) Phenothiazine Start: 10-13-2019 End: 10-13-2019 promethazine (PHENERGAN) injection 6.25 mg Respiratory Therapy Supp[place] (CareTouch CPAP & [place] [facility] [place] Respiratory Ther apy [place]CareTouch CPAP & B[place] H[place] [facility] [place]: Obstructive Sleep Apnea Syndrome 12-20 cm Nightly. 0 Active 5 ml sodium chloride 9 mg/ml injection (6 sources) Start: 11-18-2021 sodium chlorid e flush 0.9 % injection 5-40 mL Start: 11-18-2021 0.9 % sodium c hloride infusion Start: 11-18-2021 sodium chlorid e flush 0.9 % injection 5-40 mL sulfaSALAzine 500 mg delayed release oral tablet (20 sources) Aminosalicylate Start: 07-15-2022 take 2 tablets by mouth in the morning sulfaSALAzine (Azulfidine) 500 MG EC tablet Take 1,000 mg by mouth in the morning and 1,000 mg before bedtime. 0 07/15/2022 Active Start: 02-23-2014 take 1 tablet by yarely twice daily sulfaSALAzine (AZULFIDINE) 500 mg tablet Indications: RLQ abdominal pain , Upper respiratory infection Take 1 tablet by mouth twice daily. 02/23/2014 Active Start: 02-23-2014 sulfaSALAzine (AZULFIDINE) 500 MG tablet Take 500 mg by mouth 0 02/23/2014 Active take 2 tablets by mo [facility] twice daily sulfaSALAzine (AZULFIDINE) 500 MG tablet Take 500 mg by mouth 4 times daily 2 tabs BID 0 Active Comment on above: Take 1 tablet by yarely th twice daily. tirzepatide (MOUNJARO) 10 mg/0.5 mL pen injector (20 sources) Start: 01-23-2025 End: 07-22-2025 tirzepatide (MOUNJARO) 10 mg/0.5 mL pen injector Indications: Type 2 diabetes mellitus with unspecified complications (HCC) , Class 2 obesity due to excess calories without serious comorbidity with body mass index (BMI) of 39.0 to 39.9 in adult , Obstructive sleep apnea syndrome Inject 10 mg subcutaneously one time a week. 6 mL 1 01/23/2025 07/22/2025 Active tirzepatide, weight loss (ZEPBOUND) 2.5 mg/0.5 mL pen injector (4 sources) Start: 04-03-2024 tirzepatide, weight loss (ZEPBOUND) 2.5 mg/0.5 mL pen injector Indications: Class 2 obesity due to excess calories without serious comorbidity with body mass index (BMI) of 39.0 to 39.9 in adult Inject 2.5 mg subcutaneously one time a week. 2 mL 1 04/03/2024 Active tirzepatide, weight loss (ZEPBOUND) 5 mg/0.5 mL pen injector (8 sources) Start: 06-26-2024 End: 08-11-2024 tirzepatide, weight loss (ZEPBOUND) 5 mg/0.5 mL pen injector Indications: Class 2 obesity due to excess calories without serious comorbidity with body mass index (BMI) of 39.0 to 39.9 in adult Inject 5 mg subcutaneously one time a week. 2 mL 1 06/26/2024 08/11/2024 Discontinued Start: 06-26-2024 tirzepatide, w eight loss (ZEPBOUND) 5 mg/0.5 mL pen injector Indications: Class 2 obesity due to excess calories without serious comorbidity with body mass index (BMI) of 39.0 to 39.9 in adult Inject 5 mg subcutaneously one time a week. 2 mL 1 06/26/2024 Active Start: 05-01-2024 End: 06-26-2024 tirzepatide, weight loss (ZE PBOUND) 5 mg/0.5 mL pen injector Indications: Class 2 obesity due to excess calories without serious comorbidity with body mass index (BMI) of 39.0 to 39.9 in adult Inject 5 mg subcutaneously one time a week. 2 mL 1 05/01/2024 06/26/2024 Discontinued Start: 05-01-2024 tirzepatide, w eight loss (ZEPBOUND) 5 mg/0.5 mL pen injector Indications: Class 2 obesity due to excess calories without serious comorbidity with body mass index (BMI) of 39.0 to 39.9 in adult Inject 5 mg subcutaneously one time a week. 2 mL 1 05/01/2024 Active topiramate 50 mg oral tablet (20 sources) Start: 02-28-2021 End: 01-12-2023 take 1 tablet by mouth twice daily topiramate (TOPAMAX) 50 mg tablet Take 1 tablet by mouth twice daily. 180 tablet 3 01/12/2022 12/04/2022 Discontinued (Discontinued by Patient) Comment on above: Take 1 tablet by yarely th twice daily. ursodiol 300 mg oral capsule (6 sources) Bile Acid Start: 08-13-2022 End: 04-05-2023 take 1 capsule by mouth in the morning ursodiol (Actigall) 300 MG capsule Take 1 capsule (300 mg) by mouth in the morning and 1 capsule (300 mg) before bedtime. 180 capsule 0 08/13/2022 11/11/2022 Active vitamin b12 0.5 mg oral tablet (19 sources) Vitamin B12 cyanocobalamin (Vitamin B-12) 500 MCG tablet Every 24 hours. 0 Active vitamin B-12 (CY ANOCOBALAMIN) 500 MCG tablet Take 500 mcg by mouth daily Pt takes twice a week 0 Active VITAMIN D PO (3 sources) Start: 04-05-2023 VITAMIN D PO T emily 2,000 Int'l Units by mouth daily. 0 04/05/2023 Active Zinc (10 sources) zinc 50 MG CAPS Take 25 mg by mouth daily 0 Active zinc 50 MG CAPS Take by mouth 0 Active Completed/Discontinued Medications Medication Drug Class(es) Dates Sig (Normalized) Sig (Original) acetaminophen 500 mg oral tablet (2 sources) Start: 11-18-2021 End: 11-18-2021 acetaminophen (TYLENOL) tablet 1,000 mg Start: 10-13-2019 End: 10-13-2019 acetaminophen (TYLENOL) tabl et 1,000 mg acetaminophen 325 mg / oxyCODONE hydrochloride 5 mg oral tablet (3 sources) Opioid Agonist Start: 09-02-2022 End: 09-10-2022 take 1 tablet by mouth every six hours as needed for pain oxyCODONE-acetaminophen (Percocet) 5-325 MG tablet Indications: Morbid obesity with BMI of 40.0-44.9, adult (HCC) Take 1 tablet by mouth every 6 hours as needed for severe pain (7-10) for up to 7 days. 28 tablet 0 09/02/2022 09/10/2022 Start: 11-18-2021 End: 11-23-2021 oxyCODONE-acetaminophen (PER COCET) 5-325 MG per tablet Indications: Postoperative abdominal pain Take 1 tablet by mouth every 6 hours as needed for Pain for up to 5 days. Intended supply: 5 days. Take lowest dose possible to manage pain 20 tablet 0 11/18/2021 11/23/2021 Active Start: 10-13-2019 End: 10-18-2019 take 1 tablet by mouth every eight hours as needed for pain oxyCODONE-acetaminophen (PERCOCET) 5-325 MG per tablet Indications: Post-op pain , Subcutaneous mass of right thumb Take 1 tablet by mouth every 8 hours as needed for Pain for up to 5 days. 15 tablet 0 10/13/2019 10/18/2019 Active atorvastatin 20 mg oral tablet (20 sources) HMG-CoA Reductase Inhibitor Start: 03-08-2023 End: 05-09-2024 take 1 tablet by mouth once daily atorvastatin (LIPITOR) 20 mg tablet Indications: Mixed hyperlipidemia Take 1 tablet by mouth once daily. 90 tablet 3 03/08/2023 05/09/2024 Discontinued Start: 08-28-2022 take 4 tablets by mo ut once daily atorvastatin (LIPITOR) 10 mg tablet Indications: Mixed hyperlipidemia Take 4 tablets by mouth once daily. 0 08/28/2022 Active Start: 05-20-2022 End: 04-05-2023 take 1 tablet by mouth once daily atorvastatin (Lipitor) 40 MG tablet Indications: Hyperlipidemia Take 40 mg by mouth Nightly. 0 05/20/2022 04/05/2023 Discontinued (Dose adjustment) Start: 02-04-2018 End: 08-28-2022 take 2 tablets by mouth once daily atorvastatin (LIPITOR) 10 mg tablet Indications: Mixed hyperlipidemia Take 2 tablets by mouth once daily. 0 09/10/2021 08/28/2022 Discontinued Start: 02-04-2018 take 4 tablets by mo ut once daily atorvastatin (LIPITOR) 10 MG tablet Take 40 mg by mouth nightly 0 02/04/2018 Active Start: 02-04-2018 atorvastatin ( LIPITOR) 10 MG tablet Take 10 mg by mouth 0 02/04/2018 Active Start: 06-23-2013 take 20 mg by mouth at bedtime Atorvastatin Active 20 MG PO AT BEDTIME June 23, 2013 12:00am take 2 tablets by mo uth once daily atorvastatin (LIPITOR) 20 MG tablet Take 40 mg by mouth daily High cholesterol 0 Active Comment on above: Take 2 tablets by mo [facility] once daily. Take 4 tablets by mo [facility] once daily. [facility] ceFAZolin 2000 mg injection (1 source) Cephalosporin Antibacterial Start: 11-18-2021 End: 11-18-2021 ceFAZolin (ANCEF) 2000 mg in dextrose 4 % 100 mL IVPB (premix) ceFAZolin (ANCEF) 2 g in dextrose 5 % 100 mL IVPB (1 source) Start: 10-13-2019 End: 10-13-2019 ceFAZolin (ANCEF) 2 g in dextrose 5 % 100 mL IVPB CPAP (20 sources) Start: 01-26-2022 End: 03-30-2025 CPAP Indications: REMIGIO (obstructive sleep apnea) Bilevel 25/20 cmH2O, Resmed F20 FFM (small), Ti max 2.0, Ti min 0.3, Trigger medium, Cycle medium, HUMIDITY, LIFETIME SUPPLIES. 1 Each 999 01/26/2022 03/30/2025 Discontinued Start: 01-26-2022 CPAP Indicatio ns: REMIGIO (obstructive sleep apnea) Bilevel 25/20 cmH2O, Resmed F20 FFM (small), Ti max 2.0, Ti min 0.3, Trigger medium, Cycle medium, HUMIDITY, LIFETIME SUPPLIES. 1 Each 999 01/26/2022 Active Start: 07-29-2018 CPAP Pressure change to Settings 12 - 20 cm H2O, suitable mask per pt preference, chin strap, head gear, humidity, tubing, lifetime supplies. G47.33 Obstructive Sleep Apnea 1 Device 0 07/29/2018 Active Start: 05-26-2018 CPAP Indicatio ns: REMIGIO (obstructive sleep apnea) Mask refitting: suitable mask per pt preference and pair with a chin strap. Provided heated tubing. lifetime supplies. G47.33 Obstructive Sleep Apnea 1 Device 0 05/26/2018 Active Start: 05-11-2018 CPAP Indicatio ns: REMIGIO (obstructive sleep apnea) Initiate Auto PAP @ 5-20 cm of water with humidification. Mask (per patient preference) optional chin strap (if indicated) , filters, tubing, humidifier and lifetime supplies. 1 Device 0 05/11/2018 Active Comment on above: Initiate Auto PAP @ 5-20 cm of water with humidification. Mask (per patient preference) optional chin strap (if indicated) , filters, tubing, humidifier and lifetime supplies. Mask refitting: suit able mask per pt preference and pair with a chin strap. Provided heated tubing. lifetime supplies. G47.33 Obstructive Sleep Apnea Pressure change to S ettings 12 - 20 cm H2O, suitable mask per pt preference, chin strap, head gear, humidity, tubing, lifetime supplies. G47.33 Obstructive Sleep Apnea Bilevel 25/20 cmH2O, Resmed F20 FFM (small), Ti max 2.0, Ti min 0.3, Trigger medium, Cycle medium, HUMIDITY, LIFETIME SUPPLIES. CPAP/BIPAP/OTHER (20 sources) Start: 12-21-2022 End: 03-30-2025 CPAP/BIPAP/OTHER BiPAP 25/20 cmH2O. [employer]. Type .CPAPSettings into a note to see current settings/supplies/DME information. 1 Each 12/21/2022 03/30/2025 Discontinued Start: 12-21-2022 End: 05-07-2050 CPAP/BIPAP/OTHER BiPAP 25/20 cmH2O. [employer]. Type .CPAPSettings into a note to see current settings/supplies/DME information. 1 Each 12/21/2022 05/07/2050 Active Start: 12-21-2022 End: 05-07-2050 CPAP/BIPAP/OTHER BiPAP 25/20 cmH2O. [employer]. Type .CPAPSettings into a note to see current settings/supplies/DME information. 1 Each 0 12/21/2022 05/07/2050 Active Comment on above: BiPAP 25/20 cmH2O. [employer]. Type .CPAPSettings into a note to see current settings/supplies/DME information. doxycycline hyclate 20 mg oral tablet (4 sources) Tetracycline-class Drug Start: take 1 tablet by mouth twice daily doxycycline 20 mg tablet Take 1 tablet by mouth twice daily. 0 03/08/2023 Active Comment on above: Take 1 tablet by yarely th twice daily. enteric contrast (will be provided with radiology test) (3 sources) Start: End: 05-16-2 025 enteric contrast (will be provided with radiology test) For CT ABD/PEL W IVCON Routine order Administer, As Directed One Time Only, via Oral, Rectal, both Oral and Rectal, Enteric Tube, Stoma or Indwelling Catheter, Enteric Contrast as designated per enteric contrast guidelines 1 each 01/25/2025 01/26/2025 Start: 01-25-2025 End: 01-26-2025 enteric contrast (will be pr ovided with radiology test) For CT ABD/PEL W IVCON Routine order Administer, As Directed One Time Only, via Oral, Rectal, both Oral and Rectal, Enteric Tube, Stoma or Indwelling Catheter, Enteric Contrast as designated per enteric contrast guidelines 1 each 01/25/2025 01/26/2025 Active Start: 01-25-2025 End: 01-25-2025 enteric contrast (will be pr ovided with radiology test) For CT ABD/PEL W IVCON Routine order Administer, As Directed One Time Only, via Oral, Rectal, both Oral and Rectal, Enteric Tube, Stoma or Indwelling Catheter, Enteric Contrast as designated per enteric contrast guidelines 1 each 01/25/2025 01/25/2025 Discontinued famotidine 20 mg oral tablet (2 sources) Histamine-2 Receptor Antagonist Start: 11-18-2021 End: 11-18-2021 famotidine (PEPCID) tablet 20 mg Start: 10-13-2019 End: 10-13-2019 famotidine (PEPCID) tablet 2 0 mg 1 ml heparin sodium, porcine 5000 unt/ml prefilled syringe (1 source) Unfractionated Heparin, Anti-coagulant Start: 11-18-2021 End: 11-18-2021 heparin (porcine) injection 5,000 Units iv contrast (will be provided with radiology test) (3 sources) Start: 01-25-2025 End: 01-26-2025 iv contrast (will be provided with radiology test) CT ABD/PEL -Inject, intravenously, once for 1 dose.No IV access, insert saline lock prior to the beginning of sedation, infusion, injection of imaging exam. Discontinue saline lock post exam. If Pt. has a central line or IVAD, may access for administration according to line specific nursing protocol. Once exam is complete flush line and de-access according to line specific nursing protocol in the CT contrast administration guidelines link. 1 each 01/25/2025 01/26/2025 Start: 01-25-2025 End: 01-26-2025 iv contrast (will be provide d with radiology test) CT ABD/PEL -Inject, intravenously, once for 1 dose.No IV access, insert saline lock prior to the beginning of sedation, infusion, injection of imaging exam. Discontinue saline lock post exam. If Pt. has a central line or IVAD, may access for administration according to line specific nursing protocol. Once exam is complete flush line and de-access according to line specific nursing protocol in the CT contrast administration guidelines link. 1 each 01/25/2025 01/26/2025 Active Start: 01-25-2025 End: 01-25-2025 iv contrast (will be provide d with radiology test) CT ABD/PEL -Inject, intravenously, once for 1 dose.No IV access, insert saline lock prior to the beginning of sedation, infusion, injection of imaging exam. Discontinue saline lock post exam. If Pt. has a central line or IVAD, may access for administration according to line specific nursing protocol. Once exam is complete flush line and de-access according to line specific nursing protocol in the CT contrast administration guidelines link. 1 each 01/25/2025 01/25/2025 Discontinued krill oil 1000 mg oral capsule (20 sources) Start: 02-04-2018 End: 12-21-2022 take 1 capsule by mouth once daily [id number] (KRILL OIL) [id number] mg cap Take 1,000 mg by mouth once daily. 0 02/04/2018 12/21/2022 Discontinued Start: 06-23-2013 take 500 mg by mouth once reba y Krill Oil Active 500 MG PO DAILY June 23, 2013 12:00am Comment on above: Take 1,000 mg by yarely th once daily. meloxicam 15 mg oral tablet (5 sources) Nonsteroidal Anti-inflammatory Drug Start: 3 take 1 tablet by mouth once daily at mealtime meloxicam (MOBIC) 15 mg tablet Take 1 tablet by mouth once daily. With food. 0 03/08/2023 Active take 1 tablet by yarely th once daily before breakfast meloxicam (MOBIC) 15 MG tablet Take 15 m g by mouth every morning (before breakfast) 0 Active Comment on above: Take 1 tablet by yarely th once daily. With food. metoprolol tartrate, short acting, (LOPRESSOR) 12.5 mg tab (20 sources) End: 05-09-2024 take 1 tablet by mouth every twelve hours metoprolol tartrate, short acting, (LOPRESSOR) 12.5 mg tab Take 12.5 mg by mouth every 12 hours. 05/09/2024 Discontinued take 1 tablet by yarely th every twelve hours metoprolol tartrate, short acting, (LOPRESSOR) 12.5 mg tab Take 12.5 mg by mouth every 12 hours. 0 Active Comment on above: Take 12.5 mg by mout h every 12 hours. nystatin [id number] unt/ml oral suspension (5 sources) Polyene Antifungal Start: 2 End: 3 take 5 mL by mouth three times daily, then take 5 mL by mouth three times daily nystatin (Mycostatin) [id number] UNIT/ML suspension Indications: Oropharyngeal Candidiasis Swish and spit 5 mL (500,000 Units) 3 times daily. Swish and spit 5 mLs by mouth three times daily for 10 days. 150 mL 1 09/10/2022 12/02/2022 Discontinued (Therapy completed) ondansetron 4 mg oral tablet (8 sources) Serotonin-3 Receptor Antagonist Start: 2 End: 2 take 1 tablet by mouth every eight hours as needed for vomiting and nausea ondansetron (Zofran) 4 MG tablet Take 1 tablet (4 mg) by mouth every 8 hours as needed for vomiting or nausea for up to 7 days. 20 tablet 0 09/02/2022 09/10/2022 Start: 11-18-2021 take 1 tablet by yarely th every eight hours as needed for nausea ondansetron (ZOFRAN) 4 MG tablet Take 1 tablet by mouth every 8 hours as needed for Nausea or Vomiting 10 tablet 0 11/18/2021 Active Start: 11-18-2021 End: 11-18-2021 ondansetron (ZOFRAN) injecti on 4 mg Start: 10-13-2019 End: 10-13-2019 ondansetron (ZOFRAN) injecti on 4 mg phenazopyridine hydrochloride 100 mg oral tablet (18 sources) Start: 01-25-2025 End: 03-30-2025 take 2 tablets by mouth every eight hours as needed phenazopyridine (PYRIDIUM) 100 mg tablet Take 2 tablets by mouth three times a day as needed. 10 tablet 01/25/2025 03/30/2025 Discontinued Semaglutide (OZEMPIC, 0.25 OR 0.5 MG/DOSE, SC) (6 sources) End: 12-02-2022 Semaglutide (OZEMPIC, 0.25 OR 0.5 MG/DOSE, SC) Indications: pre diabetes Inject under the skin 1 (one) time per week. 0.25 mg On 0 12/02/2022 Discontinued (Therapy completed) Semaglutide (OZE MPIC, 0.25 OR 0.5 MG/DOSE, SC) Indications: pre diabetes Inject under the skin 1 (one) time per week. 0.25 mg On 0 Active spironolactone 50 mg oral tablet (4 sources) Aldosterone Antagonist Start: 05-01-2025 End: 05-02-2025 take 1 tablet by mouth once daily spironolactone (ALDACTONE) 50 mg tablet Take 1 tablet by mouth once daily. 90 tablet 3 05/01/2025 05/02/2025 Discontinued Start: 04-13-2025 take 1 tablet by yarely th once daily spironolactone (ALDACTONE) 25 mg tablet Take 1 tablet by mouth once daily. 30 tablet 1 04/13/2025 Active tirzepatide (MOUNJARO) 7.5 mg/0.5 mL pen injector (14 sources) Start: 11-10-2024 End: 01-23-2025 tirzepatide (MOUNJARO) 7.5 m g/0.5 mL pen injector Indications: Type 2 diabetes mellitus with unspecified complications (HCC) , Class 2 obesity due to excess calories without serious comorbidity with body mass index (BMI) of 39.0 to 39.9 in adult , Obstructive sleep apnea syndrome , Hyperlipidemia, unspecified hyperlipidemia type , Essential hypertension Inject 7.5 mg subcutaneously one time a week. 6 mL 1 11/10/2024 01/23/2025 Discontinued Start: 11-10-2024 End: 05-09-2025 tirzepatide (MOUNJARO) 7.5 m g/0.5 mL pen injector Indications: Type 2 diabetes mellitus with unspecified complications (HCC) , Class 2 obesity due to excess calories without serious comorbidity with body mass index (BMI) of 39.0 to 39.9 in adult , Obstructive sleep apnea syndrome , Hyperlipidemia, unspecified hyperlipidemia type , Essential hypertension Inject 7.5 mg subcutaneously one time a week. 6 mL 1 11/10/2024 05/09/2025 Active Start: 08-11-2024 End: 11-10-2024 tirzepatide (MOUNJARO) 7.5 m g/0.5 mL pen injector Indications: Class 2 obesity due to excess calories without serious comorbidity with body mass index (BMI) of 39.0 to 39.9 in adult , Obstructive sleep apnea syndrome , Hyperlipidemia, unspecified hyperlipidemia type , Essential hypertension Inject 7.5 mg subcutaneously one time a week. 6 mL 1 08/11/2024 11/10/2024 Discontinued Start: 08-11-2024 End: 02-07-2025 tirzepatide (MOUNJARO) 7.5 m g/0.5 mL pen injector Indications: Class 2 obesity due to excess calories without serious comorbidity with body mass index (BMI) of 39.0 to 39.9 in adult , Obstructive sleep apnea syndrome , Hyperlipidemia, unspecified hyperlipidemia type , Essential hypertension Inject 7.5 mg subcutaneously one time a week. 6 mL 1 08/11/2024 02/07/2025 Active tirzepatide, weight loss (ZEPBOUND) 7.5 mg/0.5 mL pen injector (3 sources) Start: 08-14-2024 End: 08-23-2024 inject 7.5 mg by subcutaneous injection every week tirzepatide, weight loss (ZEPBOUND) 7.5 mg/0.5 mL pen injector Inject 7.5 mg subcutaneously one time a week. 2 mL 3 08/14/2024 08/23/2024 Discontinued Start: 08-14-2024 inject 7.5 mg by sub cutaneous injection every week tirzepatide, weight loss (ZEPBOUND) 7.5 mg/0.5 mL pen injector Inject 7.5 mg subcutaneously one time a week. 2 mL 3 08/14/2024 Active traZODone hydrochloride 50 mg oral tablet (9 sources) Serotonin Reuptake Inhibitor Start: 01-07-2024 End: 04-03-2024 take 1 tablet by mouth once daily at bedtime traZODone (DESYREL) 50 mg tablet TAKE 1 TABLET BY MOUTH EVERYDAY AT BEDTIME 90 tablet 1 01/31/2024 04/03/2024 Discontinued (Discontinued by Patient) ubiquinol 200 mg oral capsule (9 sources) End: 09-02-2023 take 1 capsule by mouth once daily Ubiquinol 200 MG capsule Take 200 mg by mouth daily. 0 09/02/2023 Discontinued Problems Active Problems Problem Classification Problem Date Documented Da te Episodic/Chronic Benign neoplasm of uterus (2 sources) Uterine leiomyoma; Translations: [Leiomyoma of uterus, unspecified] Onset: 5 04-10-2025 Episodic Diabetes mellitus with complications (6 sources) Type 2 diabetes mellitus; Translations: [Type 2 diabetes mellitus with unspecified complications] Onset: 4 11-10-2024 Chronic Diabetes mellitus without complication (20 sources) Diabetes mellitus; Translations: [Type 2 diabetes mellitus without complications] Onset: 7 Resolved: 6 04-28-2012 Chronic Diabetes mellitus without complication (2 sources) Prediabetes; Translations: [Prediabetes] Episodic Disorders of lipid metabolism (20 sources) Hyperlipidemia; Translations: [Hyperlipidemia, unspecified] Onset: 7 Resolved: 6 09-15-2021 Chronic Esophageal disorders (20 sources) Gastroesophageal reflux disease; Translations: [Gastro-esophageal reflux disease without esophagitis] Onset: 2 03-24-2013 Chronic Essential hypertension (20 sources) Hypertensive disorder; Translations: [Essential (primary) hypertension] Onset: 7 Resolved: 6 09-15-2021 Chronic Gastritis and duodenitis (15 sources) Chronic superficial gastritis; Translations: [Chronic superficial gastritis without bleeding] Onset: 2 Chronic Genitourinary symptoms and ill-defined conditions (7 sources) Blood in urine; Translations: [Hematuria, unspecified] Onset: 4 03-07-2025 Episodic Headache; including migraine (20 sources) Migraine without aura, not refractory ; Translations: [Migraine without aura, not intractable, without status migrainosus] Onset: 6 01-20-2016 Chronic Immunizations and screening for infectious disease (2 sources) Encounter for immunization; Translations: [Encounter for screening for human papillomavirus (HPV)] Onset: 5 Episodic Menopausal disorders (3 sources) Atrophy of vagina; Translations: [Postmenopausal atrophic vaginitis] Onset: 5 03-22-2025 Chronic Mood disorders (20 sources) Bipolar I disorder, most recent episode depression; Translations: [Bipolar disorder, current episode depressed, mild or moderate severity, unspecified] Onset: 7 09-08-2021 Chronic Nutritional deficiencies (20 sources) Vitamin D deficiency; Translations: [Vitamin D deficiency, unspecified] Onset: 7 Chronic Osteoarthritis (20 sources) Arthritis; Translations: [Unspecified osteoarthritis, unspecified site] Onset: 6 03-03-2016 Chronic Other aftercare (8 sources) Patient encounter status; 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] Episodic Other aftercare (1 source) Other m[facility] (current) drug therapy; Translations: [Medication management] Onset: 5 Episodic Other endocrine disorders (20 sources) Hypoparathyroidism; Translations: [Hypoparathyroidism, unspecified] Onset: 3 09-08-2021 Chronic Other female genital disorders (6 sources) Cyst of uterus; Translations: [Other specified noninflammatory disorders of uterus] 01-27-2025 Episodic Other female genital disorders (1 source) Vaginal discharge; Translations: [Other specified noninflammatory disorders of vagina] 02-08-2025 Episodic Other female genital disorders (2 sources) Finding of contents of uterus; Translations: [Noninflammatory disorder of uterus, unspecified] 03-22-2025 Episodic Other gastrointestinal disorders (20 sources) Irritable bowel syndrome; Translations: [Irritable bowel syndrome without diarrhea] Onset: 7 03-10-2007 Chronic Other liver diseases (9 sources) Steatosis of liver; Translations: [Fatty (change of) liver, not elsewhere classified] Onset: 2 09-01-2022 Chronic Other nervous system disorders (3 sources) Neuropathy; Translations: [Polyneuropathy, unspecified] 03-28-2024 Chronic Other nervous system disorders (1 source) Polyneuropathy, unspecified; Translations: [Neuropathy] Onset: 4 Chronic Other nervous system disorders (1 source) Burning feet; Translations: [Other disturbances of skin sensation] 08-19-2023 Episodic Other nervous system disorders (7 sources) Paresthesia of foot ; Translations: [Paresthesia of skin] 01-22-2025 Episodic Other nervous system disorders (1 source) Paresthesia; Translations: [Paresthesia of skin] 02-09-2025 Episodic Other nutritional; endocrine; and metabolic disorders (12 sources) Severe obesity; Translations: [Morbid (severe) obesity due to excess calories] Onset: 2 Chronic Other nutritional; endocrine; and metabolic disorders (20 sources) Metabolic syndrome X; Translations: [Metabolic syndrome] Onset: 7 03-10-2007 Chronic Other nutritional; endocrine; and metabolic disorders (10 sources) Body mass index 40+ - severely obese; Translations: [Morbid (severe) obesity due to excess calories] Onset: 2 09-01-2022 Chronic Other nutritional; endocrine; and metabolic disorders (3 sources) Obesity; Translations: [Other obesity due to excess [...] Chronic Other nutritional; endocrine; and metabolic disorders (3 sources) Other obesity due to excess calories; [...] Translations: [Body mass index (BMI) 40.0-44.9, adult (HCC)] Onset: 2 Chronic Other nutritional; endocrine; and metabolic disorders (20 sources) Obesity caused by energy imbalance; Translations: [Other obesity due to excess calories] Onset: 4 02-04-2024 Chronic Other nutritional; endocrine; and metabolic disorders (1 source) Body mass index (BMI) 39.0-39.9, adult; Translations: [Class 2 obesity due to excess calories without serious comorbidity with body mass index (BMI) of 39.0 to 39.9 in adult] Onset: 4 Chronic Other screening for suspected conditions (not mental disorders or infectious disease) (12 sources) Computed tomography result abnormal; Translations: [Abnormal findings on diagnostic imaging of other specified body structures] Onset: 5 01-27-2025 Chronic Residual codes; unclassified (20 sources) Obstructive sleep apnea syndrome; Translations: [Obstructive sleep apnea (adult) (pediatric)] Onset: 8 09-15-2021 Chronic Residual codes; unclassified (3 sources) Obstructive sleep apnea (adult) (pediatric); Translations: [Obstructive sleep apnea (adult) (pediatric)] Onset: 2 Chronic Residual codes; unclassified (2 sources) Dependence on other enabling machines and devices; Translations: [Dependence on other enabling machines and devices] Onset: 2 Chronic Residual codes; unclassified (4 sources) Insomnia; Translations: [Insomnia, unspecified] Episodic Residual codes; unclassified (1 source) Other specified health status; Translations: [Other specified conditions influencing health status] Episodic Residual codes; unclassified (1 source) Family history of malignant neoplasm of uterus; Translations: [Family history of malignant neoplasm of other genital organs] 03-22-2025 Episodic Residual codes; unclassified (2 sources) Edema of extremity; Translations: [Localized edema] 05-02-2025 Episodic Residual codes; unclassified (1 source) Postoperative state; Translations: [Other specified postprocedural states] 05-07-2025 Episodic Residual codes; unclassified (1 source) Localized edema; Translations: [Extremity edema] Onset: 5 Episodic Residual codes; unclassified (1 source) Other specified postprocedural states; Translations: [Post-operative state] Onset: 5 Episodic Spondylosis; intervertebral disc disorders; other back problems (1 source) Other intervertebral disc displacement, lumbar region; Translations: [Displacement of lumbar intervertebral disc without myelopathy] Onset: 5 Chronic Systemic lupus erythematosus and connective tissue disorders (20 sources) Sjogren's syndrome; Translations: [Sicca syndrome, unspecified] Onset: 3 09-08-2021 Chronic Thyroid disorders (20 sources) Acquired hypothyroidism; Translations: [Hypothyroidism, unspecified] Onset: 7 Resolved: 6 09-08-2021 Chronic Unclassified (1 source) Pre-Op Visit Onset: 5 Unclassified (1 source) Class 2 obesity due to excess calories without serious comorbidity with body mass index (BMI) of 39.0 to 39.9 in adult; Translations: [Class 2 obesity due to excess calories without serious comorbidity with body mass index (BMI) of 39.0 to 39.9 in adult] Onset: 4 Unclassified (1 source) Other intervertebral disc degeneration, lumbar region with discogenic back pain and lower extremity pain; Translations: [Other intervertebral disc degeneration, lumbar region with discogenic back pain and lower extremity pain] Onset: 5 Unclassified (1 source) Low back pain, unspecified; Translations: [Low back pain, unspecified] Onset: 5 Past or Other Problems Problem Classification Problem Date Documented Da te Episodic/Chronic Abdominal pain (14 sources) Postoperative abdominal pain; Translations: [Unspecified abdominal pain] Onset: 5 Episodic Deficiency and other anemia (20 sources) Anemia; Translations: [Anemia, unspecified] Resolved: 9 02-22-2019 Episodic Fluid and electrolyte disorders (7 sources) Hypokalemia; Translations: [Hypokalemia] Onset: 4 08-11-2024 Episodic Headache; including migraine (20 sources) Headache; Translations: [Headache] Onset: 7 06-16-2007 Episodic Nutritional deficiencies (20 sources) Deficiency of multiple nutrient elements; Translations: [Deficiency of multiple nutrient elements] Onset: 3 Episodic Other aftercare (2 sources) Encounter for other specified surgical aftercare; Translations: [Encounter for other specified surgical aftercare] Onset: 3 Episodic Other aftercare (3 sources) Postoperative visit; Translations: [Encounter for other specified surgical aftercare] Episodic Other and unspecified benign neoplasm (20 sources) Gastric polyp; Translations: [Polyp of stomach and duodenum] Onset: 2 Episodic Other connective tissue disease (18 sources) Digital mucous cyst of right hand; Translations: [Ganglion, right hand] Onset: 0 11-06-2019 Episodic Other connective tissue disease (2 sources) Ganglion, unspecified hand; Translations: [Ganglion, unspecified hand] Onset: 5 Episodic Other connective tissue disease (1 source) Other bursal cyst, left hand; Translations: [Other bursal cyst, left hand] Onset: 5 Episodic Other disorders of stomach and duodenum (20 sources) Gastroparesis syndrome; Translations: [Gastroparesis] Onset: 5 Resolved: 6 03-02-2016 Episodic Other female genital disorders (1 source) Other specified noninflammatory disorders of vagina; Translations: [Vaginal discharge] Onset: 5 Episodic Other female genital disorders (1 source) Other specified noninflammatory disorders of uterus; Translations: [Uterine cyst] Onset: 5 Episodic Other gastrointestinal disorders (20 sources) History of bariatric surgical procedure; Translations: [Bariatric surgery status] Onset: 2 Episodic Other gastrointestinal disorders (15 sources) Oropharyngeal dysphagia; Translations: [Dysphagia, oropharyngeal phase] Onset: 2 Episodic Other gastrointestinal disorders (20 sources) History of laparoscopic adjustable gastric banding; Translations: [Bariatric surgery status] Onset: 3 10-20-2016 Episodic Other liver diseases (1 source) Increased vitamin B; Translations: [Abnormal levels of other serum enzymes] Episodic Other nervous system disorders (1 source) Postoperative pain Episodic Other nervous system disorders (1 source) Paresthesia of skin; Translations: [Paresthesia of both feet] Onset: 5 Episodic Other screening for suspected conditions (not mental disorders or infectious disease) (20 sources) Imaging of gastrointestinal tract abnormal; Translations: [Abnormal findings on diagnostic imaging of other parts of digestive tract] Onset: 2 Episodic Other skin disorders (20 sources) Mass of subcutaneous tissue of right thumb; Translations: [Localized swelling, mass and lump, right upper limb] Onset: 0 10-13-2019 Episodic Residual codes; unclassified (20 sources) Edema; Translations: [Edema, unspecified] Onset: 7 Resolved: 6 08-11-2016 Episodic Spondylosis; intervertebral disc disorders; other back problems (20 sources) Backache; Translations: [Dorsalgia, unspecified] Onset: 8 09-15-2021 Episodic Urinary tract infections (2 sources) Urinary tract infectious disease; Translations: [Urinary tract infection, site not specified] Onset: 5 01-25-2025 Episodic Results Test Name Value Interpretation Reference Range Facility Orthopedic Visit Reporton Orthopedic Visit Report [facility] [address] [place] [address] OFFICE VISIT Date of Service: 07/03/25 MR#: [id number] Acct: [id number] Name: SANTOS ALLAN FRANCI Rep #: [id number] : 1965 Provider: Dr. Tobin Bauman MD Age/Sex: 59/F Location: [facility] Status: Signed Intake Vital Signs 04/20/25 08:26 Height 5 ft 6 in Intake Visit Reasons: lumbar spine Chief Complaint: Lumbar spine preop appt Accompanied by: Self Is patient in pain?: Yes (lumbar ) Pain scale (1-10): 8 Allergies sumatriptan (From Imitrex) Adverse Reaction (Intermediate, Verified 07/03/25 08:11) Other sumatriptan succinate (From Imitrex) Adverse Reaction (Intermediate, Verified 07/03/25 08:11) Other Medications ???Medication ???Instructions ???Recorded ???Confirmed ???Type calcium 600 mg (as 1 tab PO DAILY@0800 06/23/1307/03 History carbonate)-vitamin D3 20 mcg (800 unit) tablet (Caltrate with Vitamin D3) cholecalciferol (vitamin D3) 50 2,000 unit PO DAILY 06/23/1307/03 History mcg (2,000 unit) tablet (Vitamin D3) eletriptan 20 mg tablet (Relpax) 20 mg PO DAILY PRN MIGRAINE 07/03/25 History cevimeline 30 mg capsule (Evoxac) 30 mg PO BID 08/09/23 07/03/25 Hi story hydroxychloroquine 200 mg tablet 200 mg PO BID 08/09/23 07/03/25 Hi story (Plaquenil) leflunomide 20 mg tablet 20 mg PO DAILY 08/09/23 07/03/25 H istory lisinopril 20 mg tablet 20 mg PO DAILY 08/09/23 07/03/25 H istory metoprolol tartrate 25 mg tablet 12.5 mg PO DAILY 08/09/23 07/03/25 History multivitamin 1 tab PO DAILY 08/09/23 07/03/25 H istory omeprazole 20 mg capsule,delayed 20 mg PO DAILY 08/09/23 07/03/25 H istory release pravastatin 80 mg tablet 80 mg PO QHS 08/09/23 07/03/25 His tory sulfasalazine 500 mg tablet 1 g PO BID 08/09/23 07/03/25 Histo ry cyclobenzaprine 10 mg tablet 10 mg PO BID PRN muscle spasm 09/1507/03/25 History gabapentin 400 mg capsule 400 mg PO TID 11/08/24 07/03/25 Hi story levothyroxine 44 mcg capsule 44 mcg PO MOWEFR 11/08/24 07/03/25 History hydrocodone-acetaminophen 5-325mg 0.5 - 1 tab PO QD-BID PRN pain 07/03/25 History 5mg-325mg citalopram 20 mg tablet 30 mg (1.5 x 20 mg) PO DAILY 90 07/03/25 Rx days #135 tabs gabapentin 100 mg capsule 100 mg PO TID 04/05/25 07/03/25 Hi story tirzepatide 7.5 mg/0.5 mL 10 mg subcut TH 04/05/25 07/03/25 History subcutaneous pen injector (Jimmy) aripiprazole 2 mg tablet 4 mg PO QHS 04/10/25 07/03/25 Hist ory estradiol 0.01% (0.1 mg/gram) 1 applic vaginal MOTH 06/26/25 History vaginal cream hydrochlorothiazide 12.5 mg capsule 12.5 mg PO DAILY 06/26/2507/03 History potassium chloride 10 mEq 10 meq PO BID 06/26/25 07/03/25 Hi story tablet,extended release PFSH Medical History Alcohol use Former smoker History of edema Wears glasses Thyroid disease Back pain Injury of head and neck History of hiatal hernia Gastric reflux Sleep apnea History of echocardiogram JINNY (generalized anxiety disorder) Bipolar II disorder Sjogrens syndrome Fibromyalgia Vitamin deficiency Pneumonia Osteoarthritis Neuropathy IBS (irritable bowel syndrome) High triglycerides High cholesterol Hypertension Migraines Gastrointestinal problem Diabetes Carpal tunnel syndrome Bone fracture Back problem Arthritis Anemia Surgical History History of epidural steroid injection into cervical spine History of esophagogastroduodenoscopy (EGD) History of colonoscopy Hx of removal of cyst Hx of cervical spine surgery H/O gastric sleeve Previous back surgery History of carpal tunnel surgery of left wrist Gastric banding status H/O partial thyroidectomy Hx of arthroscopic knee surgery Hx of tonsillectomy Family History Mother Anxiety Breast cancer Cancer Diabetes Hypertension High cholesterol Psychiatric care Uterine cancer Father Arthritis Diabetes Hypertension High cholesterol Osteoporosis CVA (cerebral vascular accident) Other Colon cancer Depression Mental disorder Social History Smoking Status: Former smoker how long ago did patient quit smoking: quit 22 years ago alcohol intake: current details: 1-2 drinks, 1-2x month substance use type: does not use what type of physical activity do you participate in: walking frequency: 3-4 times per week additional social history: pt denies vaping, denies edibles, denies marijuana use, denies aspirin and ibuprofen use. HPI lumbar spine Details: (more content not included)... Normal [facility] MRSA/SAID NASAL SCREENon MRSA+SAID SCRN Reason for Exam: Ron celia MRSA MRSA Negative S. AUREUS S. aureus Negative Normal [facility] Comment on above: Performed By: #### M 100.651, L500.2500, L501.9985, L100.0100, BTSPAT ####[facility] [address] [facility] [place], [address] 12 Lead EKGon 06-27-2025 12 Lead EKG [facility] [address] [place] [address] 12 Lead EKG 06/27/25 0701 MR#: [id number] Acct: [id number] Name: SANTOS ALLAN FRANCI Rep #: [id number] : 1965 59 From: Luis Limon MD Attending Dr: Dr. Tobin Bauman MD Status: PRE [facility] Ordering Dr: Tobin Bauman MD Date: 06/27/25 Location: [facility] Sex: F C Admitted: Test Reason : PRE OP Blood Pressure : */* mmHG Vent. Rate : 76 BPM Atrial Rate : 76 BPM P-R Int : 130 ms QRS Dur : 76 ms QT Int : 406 ms P-R-T Axes : 56 62 55 degrees QTcB Int : 456 ms Normal sinus rhythm Normal ECG When compared with ECG of 03-Sep-2010 09:09, No significant change was found Confirmed by ARLETTE BOSTON, LUIS ([id number]), web editor KRISTEN STAFFORD ([id number]) on 06/28/2025 6:28:50 AM Referred By: Tobin Bauman Confirmed By: LUIS LIMON MD 06/28/25627 Date Luis Limon MD CC: Dr. Tobin Bauman MD; Dr. Ana Bolaños MD Signed Normal [facility] Basic Metabolic Profile (BMP )on 06-27-2025 BUN/CRE 8.3 RATIO Low 10-20 [facility] Comment on above: Performed By: #### M 100.651, L500.2500, L501.9985, L100.0100, BTSPAT ####[facility] [address] [place], [address] Calcium [Mass/Vol] 9.6 mg/dL Normal 7.6-11.0 [facility] Comment on above: Performed By: #### M 100.651, L500.2500, L501.9985, L100.0100, BTSPAT ####[facility] [address] [place], [address] Chloride [Moles/Vol] 98 mmol/L Normal 98-108 [facility] Comment on above: Performed By: #### M 100.651, L500.2500, L501.9985, L100.0100, BTSPAT ####[facility] [address] [place], [address] CO2 [Moles/Vol] 29.9 mmol/L Normal 21.0-32.0 [facility] Comment on above: Performed By: #### M 100.651, L500.2500, L501.9985, L100.0100, BTSPAT ####[facility] [address] [place], [address] Creatinine [Mass/Vol] 0.57 mg/dL Low 0.70-1.20 [facility] Comment on above: Performed By: #### M 100.651, L500.2500, L501.9985, L100.0100, BTSPAT ####[facility] [address] [place], [address] GAP 11 Normal 5-15 [facility] Comment on above: Performed By: #### M 100.651, L500.2500, L501.9985, L100.0100, BTSPAT ####[facility] [address] [place], [address] GFR/1.73 sq M.predicted among non-blacks MDRD (S/P/Bld) [Vol rate/Area] 106 mL/min/{1.73_m2} Normal >60 [facility] Comment on above: Result Comment: mL/m in/1.73m2 CKD-EPI Creatinine Equation (2020) Performed By: #### M 100.651, L500.2500, L501.9985, L100.0100, BTSPAT ####[facility] [address] [place], [address] Glucose [Mass/Vol] 85 mg/dL Normal 70-99 [facility] Comment on above: Performed By: #### M 100.651, L500.2500, L501.9985, L100.0100, BTSPAT ####[facility] [address] [place], [address] Potassium [Moles/Vol] 4.1 mmol/L Normal 3.3-5.1 [facility] Comment on above: Performed By: #### M 100.651, L500.2500, L501.9985, L100.0100, BTSPAT ####[facility] [address] [place], [address] Sodium [Moles/Vol] 139 mmol/L Normal 133-145 [facility] Comment on above: Performed By: #### M 100.651, L500.2500, L501.9985, L100.0100, BTSPAT ####[facility] [address] [place], [address] Urea nitrogen [Mass/Vol] 5 mg/dL Normal 4-19 [facility] Comment on above: Performed By: #### M 100.651, L500.2500, L501.9985, L100.0100, BTSPAT ####[facility] [address] [place], [address] CBC W/Diff, Automatedon 10-1 -2024 Absolute Lymph 1.87 X10 3/uL Normal 0.83-4.51 [facility] Comment on above: Performed By: #### M 100.651, L500.2500, L501.9985, L100.0100, BTSPAT ####[facility] [address] [place], [address] Absolute Neut 2.2 X10 3/uL Normal 2.0-7.7 [facility] Comment on above: Performed By: #### M 100.651, L500.2500, L501.9985, L100.0100, BTSPAT ####[facility] [address] [place], [address] Basophils/100 WBC (Bld) 0.7 % Normal 0-1 [facility] Comment on above: Performed By: #### M 100.651, L500.2500, L501.9985, L100.0100, BTSPAT ####[facility] [address] [place], [address] Eosinophils/100 WBC (Bld) 0.0 % Normal 0-5 [facility] Comment on above: Performed By: #### M 100.651, L500.2500, L501.9985, L100.0100, BTSPAT ####[facility] [address] [place], [address] Erythrocyte distribution width (RBC) [Ratio] 12.2 % Normal 11.6-14.6 [facility] Comment on above: Performed By: #### M 100.651, L500.2500, L501.9985, L100.0100, BTSPAT ####[facility] [address] [place], [address] Hematocrit (Bld) [Volume fraction] 40.9 % Normal 37-47 [facility] Comment on above: Performed By: #### M 100.651, L500.2500, L501.9985, L100.0100, BTSPAT ####[facility] [address] [place], [address] Hemoglobin (Bld) [Mass/Vol] 13.6 g/dL Normal 12.0-15.0 [facility] Comment on above: Performed By: #### M 100.651, L500.2500, L501.9985, L100.0100, BTSPAT ####[facility] [address] [place], [address] IG% 0.200 Normal 0.0-0.9 [facility] Comment on above: Result Comment: IG% - Immature Granulocytes (promyelocytes, myelocytes and metamyelocytes) > 1% indicates that a LEFT SHIFT is Present. Performed By: #### M 100.651, L500.2500, L501.9985, L100.0100, BTSPAT ####[facility] [address] [place], [address] Lymphocytes/100 WBC (Bld) 42.1 % High 19-41 [facility] Comment on above: Performed By: #### M 100.651, L500.2500, L501.9985, L100.0100, BTSPAT ####[facility] [address] [place], [address] MCH (RBC) [Entitic mass] 30.8 pg Normal 27.0-32.0 [facility] Comment on above: Performed By: #### M 100.651, L500.2500, L501.9985, L100.0100, BTSPAT ####[facility] [address] [place], [address] MCHC (RBC) [Mass/Vol] 33.3 g/dL Normal 32-36 [facility] Comment on above: Performed By: #### M 100.651, L500.2500, L501.9985, L100.0100, BTSPAT ####[facility] [address] [place], [address] MCV (RBC) [Entitic vol] 92.5 fL Normal 81-99 [facility] Comment on above: Performed By: #### M 100.651, L500.2500, L501.9985, L100.0100, BTSPAT ####[facility] [address] [place], [address] Monocytes/100 WBC (Bld) 8.3 % Normal 0-10 [facility] Comment on above: Performed By: #### M 100.651, L500.2500, L501.9985, L100.0100, BTSPAT ####[facility] [address] [place], [address] Neutrophils/100 WBC (Bld) 48.7 % Normal 47-70 [facility] Comment on above: Performed By: #### M 100.651, L500.2500, L501.9985, L100.0100, BTSPAT ####[facility] [address] [place], [address] Nucleated RBC (Bld) [#/Vol] 0 10*3/uL Normal 0-5 [facility] Comment on above: Performed By: #### M 100.651, L500.2500, L501.9985, L100.0100, BTSPAT ####[facility] [address] [place], [address] Platelet mean volume (Bld) [Entitic vol] 9.6 fL Normal 6.2-12.0 [facility] Comment on above: Performed By: #### M 100.651, L500.2500, L501.9985, L100.0100, BTSPAT ####[facility] [address] [place], [address] Platelets (Bld) [#/Vol] 277 10*3/uL Normal 150-450 [facility] Comment on above: Performed By: #### M 100.651, L500.2500, L501.9985, L100.0100, BTSPAT ####[facility] [address] [place], [address] RBC (Bld) [#/Vol] 4.42 10*6/uL Normal 4.2-5.4 [facility] Comment on above: Performed By: #### M 100.651, L500.2500, L501.9985, L100.0100, BTSPAT ####[facility] [address] [place], [address] RDW SD 41.6 fl Normal 35.1-43.9 [facility] Comment on above: Performed By: #### M 100.651, L500.2500, L501.9985, L100.0100, BTSPAT ####[facility] [address] [place], [address] WBC (Bld) [#/Vol] 4.4 10*3/uL Normal 4.4-11.0 [facility] Comment on above: Performed By: #### M 100.651, L500.2500, L501.9985, L100.0100, BTSPAT ####[facility] [address] [place], [place], [address] Hemoglobin A1con 06-27-2025 HbA1c (Bld) [Mass fraction] 4.6 % Normal <=5.6 [facility] Comment on above: Result Comment: Norm al < 5.7 % Prediabetic 5.7 - 6.4 % Diabetic >or= 6.5 % Please note range changes. Performed By: #### M 100.651, L500.2500, L501.9985, L100.0100, BTSPAT ####[facility] [address] [place], [place], [id number] Magnesiumon 06-27-2025 Magnesium [Mass/Vol] 2.5 mg/dL High 1.5-2.2 [facility] Comment on above: Performed By: #### L 501.5200, L501.9520 ####[facility] [address] [place], [place], [address] Thyroid Stim Hormone (TSH)on 06-27-2025 TSH 0.383 uIU/mL Normal 0.300-4.200 [facility] Comment on above: Performed By: #### L 501.5200, L501.9520 ####[facility] [address] [place], [place], [address] Type AND Screen - PAT ONLYon 06-27-2025 Ab SCREEN GEL Negative Normal [facility] Comment on above: Order Comment: Surge ry Date: [facility]25[facility] [id number] INTERBODY FUSION Performed By: #### M 100.651, L500.2500, L501.9985, L100.0100, BTSPAT ####[facility] [address] [place], [place], [address] CNOVon 06-25-2025 CNOV Office Visit (INTMWS ) SANTOS ALLAN ([id number]) 1965 F Date Time Provider Department 06/25/25 2:20 PM ANA BOLAÑOS INTMWS During your visit today, we recorded the following information about you: Pulse Respiration Blood pressure Weight 85/minute 16/minute 142/84 79.1 kg Ana Bolaños MD 06/25/2025 3:30 PM Signed We discussed your upcoming surgery: - You are scheduled for a discectomy and fusion of L5-S1. This will be a minimally invasive procedure. - Please stop taking Tirzepatide one week prior to your surgery. - Your sleep apnea has resolved with weight loss, so there is no need to inform the surgical team of any current sleep apnea concerns. - You do not require additional pre-operative cardiac testing, as you have no history of chest pain, shortness of breath, or other cardiac issues, and you are able to exercise without limitations. We discussed your medical history and current conditions: - Your Sjogren?s syndrome is being managed with your current medications. Please continue taking them as prescribed. - Your scleroderma is stable and controlled. You are taking Sulfasalazine for this condition. You last saw your cryolite recovery operator 3-4 months ago and are scheduled to see her again in July. - You are managing neuropathy with Gabapentin, which is helping with symptoms in your feet. Please continue taking this medication as prescribed. We discussed your overall health: - You have no recent lung problems, and your lungs are unaffected by your Sjogren?s syndrome. - You are tolerating anesthesia well, as evidenced by your history of 13 prior surgeries without complications. - Your blood pressure was slightly elevated today but will be rechecked. Please follow the instructions provided for your surgery preparation, and let us know if you have any new or worsening symptoms. Ana Bolaños MD 06/25/2025 6:28 PM Signed Reason for Visit Follow up HPI Santos is a 59-year-old female with a history of L5-S1 disc degeneration, Sjogren's syndrome, scleroderma, and sleep apnea, presenting for preoperative clearance for an upcoming L5-S1 discectomy and fusion. Santos reports that her L5-S1 disc is virtually bone on bone and has been causing significant pain, limiting her ability to walk comfortably. She can walk for about 30 minutes before experiencing pain due to neuropathy and back issues, but she usually perseveres through it with the help of gabapentin, which alleviates neuropathic pain in her feet. She denies chest pain, dyspnea, dizziness, or palpitations. She has no history of DVT or increased risk of bleeding. She is able to exercise and perform daily activities without cardiac issues. Santos has a history of sleep apnea, which has resolved with weight loss following a sleeve gastrectomy. She denies any malabsorption issues and takes her gastric bypass medications regularly. She also has a history of Sjogren's syndrome, for which she is taking medication, and scleroderma, for which she is taking sulfasalazine. She last saw her cryolite recovery operator 3-4 months ago and has a follow-up appointment in July. Her cryolite recovery operator reports that her scleroderma is controlled, and her SSA and SSB levels are stable. Santos has a history of multiple surgeries, including a recent DANDC a couple of months ago, finger surgery in November, foot surgeries, knee surgery, thyroidectomy, two neck surgeries, and surgeries on her thumb and finger. She reports doing well with anesthesia in the past. SOCIAL HISTORY[1] Past medical history, appointments, medications, allergies reviewed. Pertinent Lab/Diagnostic Studies are reviewed and discussed today Current Outpatient Medications: pravastatin (PRAVACHOL) 80 mg tablet estradiol (ESTRACE) 0.01 % (0.1 mg/gram) vaginal cream potassium chloride (K-TAB) 10 mEq tablet hydroCHLOROthiazide 12.5 mg capsule gabapentin (NEURONTIN) 400 mg capsule ARIPiprazole (ABILIFY) 2 mg tablet gabapentin (NEURONTIN) 100 mg capsule eletriptan (RELPAX) 20 mg tablet tirzepatide (MOUNJARO) 10 mg/0.5 mL pen injector omeprazole (PRILOSEC) 20 mg capsule levothyroxine (SYNTHROID) 88 mcg tablet cyanocobalamin, vitamin B-12, (VITAMIN B-12 ORAL) MEDICATION, NON-DATABASE metoprolol tartrate, short acting, (LOPRESSOR) 25 mg tablet lisinopril (ZESTRIL) 20 mg tablet leflunomide (ARAVA) 10 mg tablet cyclobenzaprine (FLEXERIL) 10 mg tablet Cholecalciferol, Vitamin D3, (VITAMIN D) 1,000 unit tab sulfaSALAzine (AZULFIDINE) 500 mg tablet cevimeline (EVOXAC) 30 mg ORAL capsule citalopram hydrobromide(CELEXA 20 MG TAB) sodium fluoride/pot nitrate(PREVIDENT 5000 SENSITIVE 1.1 %-5 % DENTAL PASTE) potassium chloride 20 mEq TbER Health Maintenance Dilated Retinal Exam Depression Screening Anxiety Screening Influenza Vaccine(1) Covid-19 Vaccine(2024- season) (more content not included)... Normal [facility] Basic metabolic 2000 panelon 06-08-2025 Anion gap [Moles/Vol] 10 mmol/L Normal 8-15 [facility] Comment on above: Order Comment: Speci men Type: BLOOD SPECIMENOrdering Facility: [facility] Address: [address] [place] [address] Performed By: #### 2 4321-2 ####[facility] LABCLIA [id number] [place] [address] [place] Calcium [Mass/Vol] 9.8 mg/dL Normal 8.5-10.2 [facility] Comment on above: Order Comment: Speci men Type: BLOOD SPECIMENOrdering Facility: [facility] Address: [address] [place] [address] Performed By: #### 2 4321-2 ####[facility] LABCLIA [id number] [place] [address] [place] Chloride [Moles/Vol] 98 mmol/L Normal 98-107 [facility] Comment on above: Order Comment: Speci men Type: BLOOD SPECIMENOrdering Facility: [facility] Address: [address] [place] [address] Performed By: #### 2 4321-2 ####[facility] LABCLIA [id number] [place] [id number] [place] CO2 [Moles/Vol] 29 mmol/L Normal 22-30 [facility] Comment on above: Order Comment: Speci men Type: BLOOD SPECIMENOrdering Facility: [facility] Address: [address] [place] [address] Performed By: #### 2 4321-2 ####[facility] LABIA [id number] [place] [id number] [place] Creatinine [Mass/Vol] 0.56 mg/dL Low 0.58-0.96 [facility] Comment on above: Order Comment: Vondai men Type: BLOOD SPECIMENOrdering Facility: [facility] Address: [address] [place] [address] Performed By: #### 2 4321-2 ####[facility] LABIA [id number] [place] [address] [place] eGFRcr SerPlBld CKD-EPI 2020 107 mL/min/1.73m??? Normal >=60 [facility] Comment on above: Order Comment: Sg men Type: BLOOD SPECIMENOrdering Facility: [facility] Address: [address] [place] [address] Result Comment: Marilee mated Glomerular Filtration Rate (eGFR) is calculated using the 2020 CKD-EPI creatinine equation. This equation utilizes serum creatinine, sex, and age as parameters. The creatinine assay has traceable calibration to isotope dilution-mass spectrometry. Refer to KDIGO guidelines for clinical interpretation. In patients with unstable renal function, e.g. those with acute kidney injury, the eGFR may not accurately reflect actual GFR. Performed By: #### 2 4321-2 ####[facility] LABIA [id number] [place] [id number] [place] Glucose [Mass/Vol] 80 mg/dL Normal 74-99 [facility] Comment on above: Order Comment: Sg men Type: BLOOD SPECIMENOrdering Facility: [facility] Address: [address] [place] [address] Result Comment: The [place] Diabetes [employer] (ADA) provides guidance for cutoff values for fasting glucose and random glucose. The ADA defines fasting as no caloric intake for at least 8 hours. Fasting plasma glucose results between 100 to 125 mg/dL indicate increased risk for diabetes (prediabetes). Fasting plasma glucose results greater than or equal to 126 mg/dL meet the criteria for diagnosis of diabetes. In the absence of unequivocal hyperglycemia, results should be confirmed by repeat testing. In a patient with classic symptoms of hyperglycemia or hyperglycemic crisis, random plasma glucose results greater than or equal to 200 mg/dL meet the criteria for diagnosis of diabetes. Reference: Standards of Medical Care in Diabetes 2016, [place] [employer]. Diabetes Care. 2016.39(Suppl 1). Performed By: #### 2 4321-2 ####[facility] LABCLIA [id number] [address] [address] [place] Potassium [Moles/Vol] 5.0 mmol/L Normal 3.7-5.1 [facility] Comment on above: Order Comment: Speci men Type: BLOOD SPECIMENOrdering Facility: [facility] Address: [address] [place] [address] Performed By: #### 2 4321-2 ####[facility] LABIA [id number] [address] [address] [place] Sodium [Moles/Vol] 137 mmol/L Normal 136-144 [facility] Comment on above: Order Comment: Vondai romelia Type: BLOOD SPECIMENOrdering Facility: [facility] Address: [address] [place] [address] Performed By: #### 2 4321-2 ####[facility] LABIA [id number] [address] [address] [place] Urea nitrogen [Mass/Vol] 5 mg/dL Low 7-21 [facility] Comment on above: Order Comment: Speci men Type: BLOOD SPECIMENOrdering Facility: [facility] Address: [address] [place] [address] Performed By: #### 2 4321-2 ####[facility] LABCLIA [id number] [address] [address] [place] Orthopedic Visit Reporton Orthopedic Visit Report [facility] [address] [place] [address] [address] [place] [address] OFFICE VISIT Date of Service: 06/01/25 MR#: [id number] Acct: [id number] Name: SANTOS ALLAN Rep #: [id number] : 1965 Provider: Dr. Tobin Bauman MD Age/Sex: 59/F Location: [facility] [place] Status: Signed Intake Vital Signs 04/20/25 08:26 Height 5 ft 6 in Intake Visit Reasons: LUMBAR SPINE Allergies sumatriptan (From Imitrex) Adverse Reaction (Intermediate, Verified 06/01/25 14:33) Other sumatriptan succinate (From Imitrex) Adverse Reaction (Intermediate, Verified 06/01/25 14:33) Other Medications ???Medication ???Instructions ???Recorded ???Confirmed ???Type calcium 600 mg (as 1 tab PO DAILY@0800 06/23/1306/01 History carbonate)-vitamin D3 20 mcg (800 unit) tablet (Caltrate with Vitamin D3) cholecalciferol (vitamin D3) 50 2,000 unit PO DAILY 06/23/1306/01 History mcg (2,000 unit) tablet (Vitamin D3) eletriptan 20 mg tablet (Relpax) 20 mg PO DAILY PRN MIGRAINE 06/01/25 History sodium fluoride 1.1 %-potassium 100 ml DT DAILY 06/23/13 06/01/25 History nitrate 5 % dental paste (PreviDent 5000 Sensitive) cevimeline 30 mg capsule (Evoxac) 30 mg PO BID 08/09/23 06/01/25 Hi story hydroxychloroquine 200 mg tablet 200 mg PO BID 08/09/23 06/01/25 Hi story (Plaquenil) leflunomide 20 mg tablet 20 mg PO DAILY 08/09/23 06/01/25 H istory levothyroxine 88 mcg tablet 88 mcg PO MOWEFR 08/09/23 06/01/25 History (Synthroid) lisinopril 20 mg tablet 20 mg PO DAILY 08/09/23 06/01/25 H istory metoprolol tartrate 25 mg tablet 12.5 mg PO DAILY 08/09/23 06/01/25 History multivitamin 1 tab PO DAILY 08/09/23 06/01/25 H istory omeprazole 20 mg capsule,delayed 20 mg PO DAILY 08/09/23 06/01/25 H istory release pravastatin 80 mg tablet 80 mg PO QHS 08/09/23 06/01/25 His tory sulfasalazine 500 mg tablet 1 g PO BID 08/09/23 06/01/25 Histo ry cyclobenzaprine 10 mg tablet 10 mg PO BID PRN muscle spasm 09/1506/01/25 History gabapentin 400 mg capsule 400 mg PO TID 11/08/24 06/01/25 Hi story levothyroxine 44 mcg capsule 44 mcg PO SUTUTHSA 11/08/24 History hydrocodone-acetaminophen 5-325mg 0.5 - 1 tab PO QD-BID PRN pain 06/01/25 History 5mg-325mg citalopram 20 mg tablet 30 mg (1.5 x 20 mg) PO DAILY 90 06/01/25 Rx days #135 tabs gabapentin 100 mg capsule 100 mg PO TID 04/05/25 06/01/25 Hi story tirzepatide 7.5 mg/0.5 mL 10 mg subcut TH 04/05/25 06/01/25 History subcutaneous pen injector (Jimmy) Held on 04/20/25. Instructions: Resume on 04/23/25. aripiprazole 2 mg tablet 4 mg PO QHS 04/10/25 06/01/25 Hist ory spironolactone 25 mg tablet 25 mg PO QDAY 04/18/25 06/01/25 Hi story PFSH Medical History Alcohol use Former smoker History of edema Wears glasses Thyroid disease Back pain Injury of head and neck History of hiatal hernia Gastric reflux Sleep apnea History of echocardiogram JINNY (generalized anxiety disorder) Bipolar II disorder Sjogrens syndrome Fibromyalgia Vitamin deficiency Pneumonia Osteoarthritis Neuropathy IBS (irritable bowel syndrome) High triglycerides High cholesterol Hypertension Migraines Gastrointestinal problem Diabetes Carpal tunnel syndrome Bone fracture Back problem Arthritis Anemia Surgical History History of epidural steroid injection into cervical spine History of esophagogastroduodenoscopy (EGD) History of colonoscopy Hx of removal of cyst Hx of cervical spine surgery H/O gastric sleeve Previous back surgery History of carpal tunnel surgery of left wrist Gastric banding status H/O partial thyroidectomy Hx of arthroscopic knee surgery Hx of tonsillectomy Family History Mother Anxiety Breast cancer Cancer Diabetes Hypertension High cholesterol Psychiatric care Uterine cancer Father Arthritis Diabetes Hypertension High cholesterol Osteoporosis CVA (cerebral vascular accident) Other Colon cancer Depression Mental disorder Social History Smoking Status: Former smoker how long ago did patient quit smoking: quit 22 years ago alcohol intake: current details: 1-2 drinks, 1-2x month substance use type: does not use what type of physical activity do you participate in: walking frequency: 3-4 times per week additional social history: pt denies vaping, denies edibles, denies marijuana use, denies aspirin and ibuprofen use. HPI LUMBAR SPINE Details: This documentation accurately reflects the servic (more content not included)... [facility] ) SANTOS ALLAN ([id number]) 1965 F Date Time Provider Department 05/11/25 7:40 AM FIOR ALVAREZ INTMWS During your visit today, we recorded the following information about you: Respiration Blood pressure Weight 16/minute 116/72 79.8 kg Fior Alvarez APRN.CNP 05/11/2025 8:21 AM Signed CC: Patient presents with: Recheck: Follow up BP, low potassium HPI Santos Allan is a 59 year old female who presents today for follow up. Recording using ambient Izooble software for draft documentation of the visit was discussed with the patient/authorized customer relations representative; all questions welcomed and answered. Patient/authorized customer relations representative agreed to proceed Hypertension: - Blood pressure readings at home are consistently in the 110s/70s. - Originally on HCTZ but was switched to Spironolactone due to recurrent hypokalemia. Even with increase to 50mg, had increased edema to RLE and BP elevated so switch back to HCTZ. Recent potassium stable. Edema: - Significant improvement in edema since Santos started hydrochlorothiazide. - Currently taking potassium supplements BID. - Denies chest pain, dyspnea, headaches, or palpitations. REVIEW OF SYSTEMS See HPI PAST MEDICAL HISTORY Diagnosis Date Acid reflux [...] W/COLLJ SPEC WHEN PFRMD 03/18/2016 Colonoscopy (MAC) DANDC, DIAG AND/OR THERAPEUTIC 04/20/2025 hysteroscopy, DANDC for thickened EM ESOPHAGOGASTRODUODENOSCOPY TRANSORAL DIAGNOSTIC 04/05/2013 EGD ESOPHAGOGASTRODUODENOSCOPY TRANSORAL DIAGNOSTIC 01/02/2015 EGD LAP ADJUSTABLE GASTRIC BAND 08/13/2008 PAST SURGICAL HISTORY OF left foot surgery PAST SURGICAL HISTORY OF 02/11/2013 left carpal tunnel PAST SURGICAL HISTORY OF 02/11/2013 radial styloidectomy PAST SURGICAL HISTORY OF 09/13/2013 c5,c6 refusion PT ED BARIATRIC AND METABOLIC N/A 08/2022 THYROIDECTOMY TOTAL/COMPLETE partial right - non malignant TONSILLECTOMY PRIMARY/SECONDARY Tonsillectomy ALLERGIES Hydrocodone-Acetaminophen, Imitrex [Sumatriptan], and Prednisone MEDICATIONS estradiol (ESTRACE) 0.01 % (0.1 mg/gram) vaginal cream apply 1 gram of cream to lower vagina at bedtime twice weekly potassium chloride (K-TAB) 10 mEq tablet Take 1 tablet by mouth two times a day. hydroCHLOROthiazide 12.5 mg capsule Take 1 capsule by mouth once daily. gabapentin (NEURONTIN) 400 mg capsule Take 1 capsule by mouth three times a day for 180 days. potassium chloride 20 mEq TbER Take 2 tablets by mouth two times a day. ARIPiprazole (ABILIFY) 2 mg tablet Take 2 tablets by mouth once daily. gabapentin (NEURONTIN) 100 mg capsule Take 1 capsule by mouth three times a day for 180 days. eletriptan (RELPAX) 20 mg tablet Take 1 at start of headache, may repeat in 2 hours if necessary (total of 3 tablets) tirzepatide (MOUNJARO) 10 mg/0.5 mL pen injector Inject 10 mg subcutaneously one time a week. omeprazole (PRILOSEC) 20 mg capsule Take 1 capsule by mouth once daily. levothyroxine (SYNTHROID) 88 mcg tablet Take 1/2 tablet 3 days a week and whole tablet rest of the week. pravastatin (PRAVACHOL) 80 mg tablet Take 1 tablet by mouth once daily. cyanocobalamin, vitamin B-12, (VITAMIN B-12 ORAL) Take 5,000 mg by mouth every other day. MEDICATION, NON-DATABASE Alphalipoic metoprolol tartrate, short acting, (LOPRESSOR) 25 mg tablet Take 0.5 tablets by mouth once daily. lisinopril (ZESTRIL) 20 mg tablet Take 1 tablet by mouth twice daily. leflunomide (ARAVA) 10 mg tablet Take 2 tablets by mouth once daily. cyclobenzaprine (FLEXERIL) 10 mg tablet Take 1 tablet by mouth three times daily. Cholecalciferol, Vitamin D3, (VITAMIN D) 1,000 unit tab Take 1,000 Units by mouth once daily. sulfaSALAzine (AZULFIDINE) 500 mg tablet Take 1 tablet by mouth twice daily. cevimeline (EVOXAC) 30 mg ORAL capsule Take 60 mg by mouth twice daily. citalopram hydrobromide(CELEXA 20 MG TAB) Take 1.5 tablet daily. sodium fluoride/pot nitrate(PREVIDENT 5000 SENSITI (more content not included)... Normal [facility] Basic metabolic 2000 panelon 05-07-2025 Anion gap [Moles/Vol] 11 mmol/L Normal 8-15 [facility] Comment on above: Order Comment: Speci men Type: BLOOD SPECIMENOrdering Facility: [facility] Address: [address] [place] [address] Performed By: #### 2 4321-2 ####[facility] DORALWNCLIA [id number] [place] [address] [place] Calcium [Mass/Vol] 9.4 mg/dL Normal 8.5-10.2 [facility] Comment on above: Order Comment: Speci men Type: BLOOD SPECIMENOrdering Facility: [facility] Address: [address] [place] [address] Performed By: #### 2 4321-2 ####[facility] [id number] [place] [address] [place] Chloride [Moles/Vol] 100 mmol/L Normal 98-107 [facility] Comment on above: Order Comment: Speci men Type: BLOOD SPECIMENOrdering Facility: [facility] Address: [address] [place] [address] Performed By: #### 2 4321-2 ####[facility]ENTER[facility]IA [id number] [place] [address] [place] CO2 [Moles/Vol] 28 mmol/L Normal 22-30 [facility] Comment on above: Order Comment: Speci men Type: BLOOD SPECIMENOrdering Facility: [facility] Address: [address] [place], [place] [address] Performed By: #### 2 4321-2 ####[facility] [id number] [place] [address] [place] Creatinine [Mass/Vol] 0.58 mg/dL Normal 0.58-0.96 [facility] Comment on above: Order Comment: Speci men Type: BLOOD SPECIMENOrdering Facility: [facility] Address: [address] [place] [address] Performed By: #### 2 4321-2 ####[facility] [id number] [place] [address] [place] eGFRcr SerPlBld CKD-EPI 2020 106 mL/min/1.73m??? Normal >=60 [facility] Comment on above: Order Comment: Sg león Type: BLOOD SPECIMENOrdering Facility: [facility] Address: [address] [place] [address] Result Comment: Marilee mated Glomerular Filtration Rate (eGFR) is calculated using the 2020 CKD-EPI creatinine equation. This equation utilizes serum creatinine, sex, and age as parameters. The creatinine assay has traceable calibration to isotope dilution-mass spectrometry. Refer to KDIGO guidelines for clinical interpretation. In patients with unstable renal function, e.g. those with acute kidney injury, the eGFR may not accurately reflect actual GFR. Performed By: #### 2 4321-2 ####[facility] [id number] [place] [address] [place] Glucose [Mass/Vol] 97 mg/dL Normal 74-99 [facility] Comment on above: Order Comment: Sg león Type: BLOOD SPECIMENOrdering Facility: [facility] Address: [address] [place] [address] Result Comment: The [place] Diabetes Association (ADA) provides guidance for cutoff values for fasting glucose and random glucose. The ADA defines fasting as no caloric intake for at least 8 hours. Fasting plasma glucose results between 100 to 125 mg/dL indicate increased risk for diabetes (prediabetes). Fasting plasma glucose results greater than or equal to 126 mg/dL meet the criteria for diagnosis of diabetes. In the absence of unequivocal hyperglycemia, results should be confirmed by repeat testing. In a patient with classic symptoms of hyperglycemia or hyperglycemic crisis, random plasma glucose results greater than or equal to 200 mg/dL meet the criteria for diagnosis of diabetes. Reference: Standards of Medical Care in Diabetes 2016, [place] [employer]. Diabetes Care. 2016.39(Suppl 1). Performed By: #### 2 4321-2 ####[facility] MILLWNCLIA [id number] [place] [address] [place] Potassium [Moles/Vol] 3.9 mmol/L Normal 3.7-5.1 [facility] Comment on above: Order Comment: Speci men Type: BLOOD SPECIMENOrdering Facility: [facility] Address: [address] [place] [address] Performed By: #### 2 4321-2 ####[facility] [id number] [place] [address] [place] Sodium [Moles/Vol] 139 mmol/L Normal 136-144 [facility] Comment on above: Order Comment: Speci men Type: BLOOD SPECIMENOrdering Facility: [facility] Address: [address] [place] [address] Performed By: #### 2 4321-2 ####[facility] [id number] [place] [address] [place] Urea nitrogen [Mass/Vol] 5 mg/dL Low 7-21 [facility] Comment on above: Order Comment: Speci men Type: BLOOD SPECIMENOrdering Facility: [facility] Address: [address] [place] [address] Performed By: #### 2 4321-2 ####[facility] [id number] [place] [address] [place] CNOVon 05-07-2025 CNOV Office Visit (OBGYWM ) SANTOS ALLAN ([id number]) 1965 F Date Time Provider Department 05/07/25 4:20 PM ASH CHOWDHURY OBGYWM During your visit today, we recorded the following information about you: Blood pressure Weight 120/84 79.7 kg Ash Chowdhury MD 05/07/2025 6:25 PM Signed DATE OF SERVICE: 05/07/2025 PROBLEM: Santos Allan presents for postop visit. SURGERY AND DATE: Hysteroscopy [facility] PATHOLOGY: benign SUBJECTIVE/INTERVAL HISTORY: Santos Allan is doing well. No pain, fevers, bleeding, discharge. She offers no complaints. SENSITIVE EXAM: Sensitive exam not performed. OBJECTIVE: VITALS: BP 120/84 Wt 79.7 kg (175 lb 9.6 oz) LMP 02/13/2019 (Approximate) BMI 28.34 kg/m? GENERAL: NAD, well appearing comfortable ASSESSMENT: post op PLAN: Doing well Reviewed surgery and pathology findings To call with any bleeding Cont vaginal estrogen cream twice weekly at this time Ash Chowdhury DO Allergies As of Date: 05/07/2025 Noted Allergy Reaction HYDROCODONE-ACETAMINOPHEN 08/24/2019 9 - Itching IMITREX (SUMATRIPTAN) 07/25/2007 Comments: Face went numb PREDNISONE 09/05/2024 1 - Mental Status Change Date Reviewed: 05/07/2025 Reviewed by: Jacy Tucker MA - Fully Assessed Reason for Visit: Post Op [174] Primary Visit Diagnosis:Post-operative state [Z98.890] Other Visit Diagnosis:Vaginal atrophy [N95.2] Order(s):estradiol (ESTRACE) 0.01 % (0.1 mg/gram) vaginal creamapply 1 gram of cream to lower vagina at bedtime twice weeklyDisp: 42.5 gRfl: 2 Prescriptions as of 05/07/2025 - estradiol (ESTRACE) 0.01 % (0.1 mg/gram) vaginal cream apply 1 gram of cream to lower vagina at bedtime twice weekly - potassium chloride (K-TAB) 10 mEq tablet Take 1 tablet by mouth two times a day. - hydroCHLOROthiazide 12.5 mg capsule Take 1 capsule by mouth once daily. - gabapentin (NEURONTIN) 400 mg capsule Take 1 capsule by mouth three times a day for 180 days. - potassium chloride 20 mEq TbER Take 2 tablets by mouth two times a day. - ARIPiprazole (ABILIFY) 2 mg tablet Take 2 tablets by mouth once daily. - gabapentin (NEURONTIN) 100 mg capsule Take 1 capsule by mouth three times a day for 180 days. - eletriptan (RELPAX) 20 mg tablet Take 1 at start of headache, may repeat in 2 hours if necessary (total of 3 tablets) - tirzepatide (MOUNJARO) 10 mg/0.5 mL pen injector Inject 10 mg subcutaneously one time a week. - omeprazole (PRILOSEC) 20 mg capsule Take 1 capsule by mouth once daily. - levothyroxine (SYNTHROID) 88 mcg tablet Take 1/2 tablet 3 days a week and whole tablet rest of the week. - pravastatin (PRAVACHOL) 80 mg tablet Take 1 tablet by mouth once daily. - cyanocobalamin, vitamin B-12, (VITAMIN B-12 ORAL) Take 5,000 mg by mouth every other day. - MEDICATION, NON-DATABASE Alphalipoic - metoprolol tartrate, short acting, (LOPRESSOR) 25 mg tablet Take 0.5 tablets by mouth once daily. - lisinopril (ZESTRIL) 20 mg tablet Take 1 tablet by mouth twice daily. - leflunomide (ARAVA) 10 mg tablet Take [...] DENTAL PASTE) Problem List As Of Date 05/07/2025 Noted Resolved DIABETES MELLITUS ADULT ONSET [E11.9] [...] 03/03/2016 Obstructive sleep apnea syndrome [G47.33] 05/26/2018 Class 2 obesity due to excess calories without *03/03/2024 Essential hypertension [I10] 08/11/2024 Histor (more content not included)... Normal [facility] CNOVon 05-02-2025 CNOV Office Visit (INTMWS ) SANTOS ALLAN ([id number]) 1965 F Date Time Provider Department 05/02/25 3:40 PM FIOR ALVAREZ INTMWS During your visit today, we recorded the following information about you: Pulse Respiration Blood pressure Weight 76/minute 16/minute 162/100 81.2 kg Older, LIZETH Sweet.BRITANY 05/02/2025 4:09 PM Signed CC: Patient presents with: Recheck: Medication follow up HPI Santos Allan is a 59 year old female who presents today for BP follow up. Was switched to spironolactone from HCTZ due to hypokalemia. Recording using [employer] software for draft documentation of the visit was discussed with the patient/authorized customer relations representative; all questions welcomed and answered. Patient/authorized customer relations representative agreed to proceed Edema and HTN: - Persistent pitting edema in the right leg, no improvement with spironolactone 50 mg. - Edema was present prior to recent DANDC surgery. - Denies calf pain or redness. - Denies chest pain, dyspnea, palpitations, infections, headaches, fever, or chills. - BP has been consistently elevated at home as well with the spironolactone but was better controlled with the HCTZ. REVIEW OF SYSTEMS See HPI PAST MEDICAL HISTORY Diagnosis Date Acid reflux [...] W/COLLJ SPEC WHEN PFRMD 03/18/2016 Colonoscopy (MAC) DANDC, DIAG AND/OR THERAPEUTIC 04/20/2025 hysteroscopy, DANDC for thickened EM ESOPHAGOGASTRODUODENOSCOPY TRANSORAL DIAGNOSTIC 04/05/2013 EGD ESOPHAGOGASTRODUODENOSCOPY TRANSORAL DIAGNOSTIC 01/02/2015 EGD LAP ADJUSTABLE GASTRIC BAND 08/13/2008 PAST SURGICAL HISTORY OF left foot surgery PAST SURGICAL HISTORY OF 02/11/2013 left carpal tunnel PAST SURGICAL HISTORY OF 02/11/2013 radial styloidectomy PAST SURGICAL HISTORY OF 09/13/2013 c5,c6 refusion PT ED BARIATRIC AND METABOLIC N/A 08/2022 THYROIDECTOMY TOTAL/COMPLETE partial right - non malignant TONSILLECTOMY PRIMARY/SECONDARY Tonsillectomy ALLERGIES Hydrocodone-Acetaminophen, Imitrex [Sumatriptan], and Prednisone MEDICATIONS potassium chloride (K-TAB) 10 mEq tablet Take 1 tablet by mouth two times a day. hydroCHLOROthiazide 12.5 mg capsule Take 1 capsule by mouth once daily. gabapentin (NEURONTIN) 400 mg capsule Take 1 capsule by mouth three times a day for 180 days. potassium chloride 20 mEq TbER Take 2 tablets by mouth two times a day. ARIPiprazole (ABILIFY) 2 mg tablet Take 2 tablets by mouth once daily. gabapentin (NEURONTIN) 100 mg capsule Take 1 capsule by mouth three times a day for 180 days. estradiol (ESTRACE) 0.01 % (0.1 mg/gram) vaginal cream apply 1 gram of cream to lower vagina qhs daily for 2 weeks, and then twice weekly eletriptan (RELPAX) 20 mg tablet Take 1 at start of headache, may repeat in 2 hours if necessary (total of 3 tablets) tirzepatide (MOUNJARO) 10 mg/0.5 mL pen injector Inject 10 mg subcutaneously one time a week. omeprazole (PRILOSEC) 20 mg capsule Take 1 capsule by mouth once daily. levothyroxine (SYNTHROID) 88 mcg tablet Take 1/2 tablet 3 days a week and whole tablet rest of the week. pravastatin (PRAVACHOL) 80 mg tablet Take 1 tablet by mouth once daily. cyanocobalamin, vitamin B-12, (VITAMIN B-12 ORAL) Take 5,000 mg by mouth every other day. MEDICATION, NON-DATABASE Alphalipoic metoprolol tartrate, short acting, (LOPRESSOR) 25 mg tablet Take 0.5 tablets by mouth once daily. lisinopril (ZESTRIL) 20 mg tablet Take 1 tablet by mouth twice daily. leflunomide (ARAVA) 10 mg tablet Take 2 tablets by mouth once daily. cyclobenzaprine (FLEXERIL) 10 mg tablet Take 1 tablet by mouth three times daily. Cholecalciferol, Vitamin D3, (VITAMIN D) 1,000 unit tab Take 1,000 Units by mouth once daily. sulfaSALAzine (AZULFIDINE) 500 mg tablet Take 1 tablet by mouth twice daily. cevimeline (EVOXAC) 30 mg ORAL capsule Take 60 mg by mouth twice daily. citalopram hydrobromide(CELEXA 20 MG TAB) Take 1.5 tablet daily. sodium fluoride/pot nitrate(PREVIDENT 5000 SE (more content not included)... Normal [facility] Basic metabolic 2000 panelon 04-27-2025 Anion gap [Moles/Vol] 12 mmol/L 8 - 15 mmol/L [facility] Calcium [Mass/Vol] 9.0 mg/dL 8.5 - 10. 2 mg/dL [facility] Chloride [Moles/Vol] 102 mmol/L 98 - 107 mmol/L [facility] CO2 [Moles/Vol] 26 mmol/L 22 - 30 mmol/L [facility] Creatinine [Mass/Vol] 0.53 mg/dL Low 0.58 - 0.96 mg/dL [facility] GFR/1.73 sq M.predicted among non-blacks MDRD (S/P/Bld) [Vol rate/Area] 108 mL/min/{1.73_m2} - PINF [facility] Comment on above: Estimated Glomerular Filtration Rate (eGFR) is calculated using the 2020 CKD-EPI creatinine equation. This equation utilizes serum creatinine, sex, and age as parameters. The creatinine assay has traceable calibration to isotope dilution-mass spectrometry. Refer to KDIGO guidelines for clinical interpretation. In patients with unstable renal function, e.g. those with acute kidney injury, the eGFR may not accurately reflect actual GFR. Glucose [Mass/Vol] 78 mg/dL 74 - 99 mg/dL [facility] Comment on above: The [place] Diab[employer] s Association (ADA) provides guidance for cutoff values for fasting glucose and random glucose. The ADA defines fasting as no caloric intake for at least 8 hours. Fasting plasma glucose results between 100 to 125 mg/dL indicate increased risk for diabetes (prediabetes). Fasting plasma glucose results greater than or equal to 126 mg/dL meet the criteria for diagnosis of diabetes. In the absence of unequivocal hyperglycemia, results should be confirmed by repeat testing. In a patient with classic symptoms of hyperglycemia or hyperglycemic crisis, random plasma glucose results greater than or equal to 200 mg/dL meet the criteria for diagnosis of diabetes. Reference: Standards of Medical Care in Diabetes 2016, [place] Diabetes Association. Diabetes Care. 2016.39(Suppl 1). Interpretation and review of laboratory results Abnormal [facility] Potassium [Moles/Vol] 3.6 mmol/L Low 3.7 - 5.1 mmol/L [facility] Sodium [Moles/Vol] 140 mmol/L 136 - 144 mmol/L [facility] Urea nitrogen [Mass/Vol] 4 mg/dL Low 7 - 21 mg/dL [facility] Anion gap [Moles/Vol] 12 mmol/L Normal 8-15 [facility] Comment on above: Order Comment: Vondai men Type: BLOOD SPECIMENOrdering Facility: [facility] Address: [address] [place] [address] Performed By: #### 2 4321-2 ####[facility] LABCLIA [id number] [place] [address] [place] Calcium [Mass/Vol] 9.0 mg/dL Normal 8.5-10.2 [facility] Comment on above: Order Comment: Vondai romelia Type: BLOOD SPECIMENOrdering Facility: [facility] Address: [address] [place] [address] Performed By: #### 2 4321-2 ####[facility] LABCLIA [id number] [place] [address] [place] Chloride [Moles/Vol] 102 mmol/L Normal 98-107 [facility] Comment on above: Order Comment: Speci men Type: BLOOD SPECIMENOrdering Facility: [facility] Address: [address] [place] [address] Performed By: #### 2 4321-2 ####[facility] LABCLIA [id number] [place] [address] [place] CO2 [Moles/Vol] 26 mmol/L Normal 22-30 [facility] Comment on above: Order Comment: Speci men Type: BLOOD SPECIMENOrdering Facility: [facility] Address: [address] [place] [id number] Performed By: #### 2 4321-2 ####[facility] LABIA [id number] [place] [id number] [place] Creatinine [Mass/Vol] 0.53 mg/dL Low 0.58-0.96 [facility] Comment on above: Order Comment: Speci men Type: BLOOD SPECIMENOrdering Facility: [facility] Address: [address] [place] [address] Performed By: #### 2 4321-2 ####[facility] LABIA [id number] [place] [address] [place] eGFRcr SerPlBld CKD-EPI 2020 108 mL/min/1.73m??? Normal >=60 [facility] Comment on above: Order Comment: Vondai men Type: BLOOD SPECIMENOrdering Facility: [facility] Address: [address] [place] [address] Result Comment: Marilee mated Glomerular Filtration Rate (eGFR) is calculated using the 2020 CKD-EPI creatinine equation. This equation utilizes serum creatinine, sex, and age as parameters. The creatinine assay has traceable calibration to isotope dilution-mass spectrometry. Refer to KDIGO guidelines for clinical interpretation. In patients with unstable renal function, e.g. those with acute kidney injury, the eGFR may not accurately reflect actual GFR. Performed By: #### 2 4321-2 ####[facility] LABIA [id number] [place] [id number] [place] Glucose [Mass/Vol] 78 mg/dL Normal 74-99 [facility] Comment on above: Order Comment: Vondai men Type: BLOOD SPECIMENOrdering Facility: [facility] Address: [address] [place] [address] Result Comment: The [place] Diabetes Association (ADA) provides guidance for cutoff values for fasting glucose and random glucose. The ADA defines fasting as no caloric intake for at least 8 hours. Fasting plasma glucose results between 100 to 125 mg/dL indicate increased risk for diabetes (prediabetes). Fasting plasma glucose results greater than or equal to 126 mg/dL meet the criteria for diagnosis of diabetes. In the absence of unequivocal hyperglycemia, results should be confirmed by repeat testing. In a patient with classic symptoms of hyperglycemia or hyperglycemic crisis, random plasma glucose results greater than or equal to 200 mg/dL meet the criteria for diagnosis of diabetes. Reference: Standards of Medical Care in Diabetes 2016, [place] Diabetes Association. Diabetes Care. 2016.39(Suppl 1). Performed By: #### 2 4321-2 ####[facility] LABCLIA [id number] [address] [address] [place] Potassium [Moles/Vol] 3.6 mmol/L Low 3.7-5.1 [facility] Comment on above: Order Comment: Sg men Type: BLOOD SPECIMENOrdering Facility: [facility] Address: [address] [place] [address] Performed By: #### 2 4321-2 ####[facility] LABIA [id number] [address] [address] [place] Sodium [Moles/Vol] 140 mmol/L Normal 136-144 [facility] Comment on above: Order Comment: Sg león Type: BLOOD SPECIMENOrdering Facility: [facility] Address: [address] [place] [address] Performed By: #### 2 4321-2 ####[facility] LABIA [id number] [address] [address] [place] Urea nitrogen [Mass/Vol] 4 mg/dL Low 7-21 [facility] Comment on above: Order Comment: Vondai men Type: BLOOD SPECIMENOrdering Facility: [facility] Address: [address] [place] [address] Performed By: #### 2 4321-2 ####[facility] LABIA [id number] [address] [address] [place] Discharge Instructionon 08-0 Discharge Instruction [facility] Medical Records Department [address] [place] [address] Instructions for Home/Discharge Instructions 04/20/25 0925 MR#: [id number] Acct: [id number] Name: SANTOS ALLAN Rep #: [id number] : 1965 59 From: Ash Chowdhury DO PCP: Dr. Ana Bolaños MD Status:REG SDC Discharge Instructions DC O2, CPAP, BIPAP needs Home O2 Discharge instructions: No Dressing / Incision Discharge Activity: May Not Drive (for 24 hours after surgery) and May Not Shower (for 24 hours after surgery) May resume sexual activity in: 1 week (nothing in the vagina and no soaking in water) Weight Bearing Status: Weight bearing as tolerated Lifting Restrictions: none Dressing / Incision Call your doctor if you observe: Fever of 101 or Higher, Inability to urinate, Using more than 1 pad per hour, Dizziness, Swelling in the ankles, Chest pain, Calf discomfort and Uncontrolled pain Follow Up Care Please Follow Up With: Ash Chowdhury DO When: 1 week post op Test Results: Test results from this visit will be discussed in further detail at your follow-up appointment, if applicable. Discharge Plan Admission Primary Reason for Your Visit: surgery Attending Provider: Ash Chowdhury Primary Care Provider: Ana Bolaños Instructions Patient Instructions: Dilation and Curettage Print Language: Nicaraguan Discharge Orders/Prescriptions Prescriptions: Continued leflunomide 20 mg tablet 20 mg PO DAILY Patient Comments: TAKE 1 TABLET BY MOUTH EVERY DAY FOR 90 DAYS lisinopril 20 mg tablet 20 mg PO DAILY Patient Comments: TAKE 1 TABLET BY MOUTH TWICE A DAY metoprolol tartrate 25 mg tablet 12.5 mg PO DAILY Patient Comments: TAKE HALF A TABLET BY MOUTH EVERY 12 HOURS omeprazole 20 mg capsule,delayed release(DR/EC) 20 mg PO DAILY Patient Comments: TAKE 1 CAPSULE (20 MG) BY MOUTH DAILY. DO NOT CRUSH OR CHEW. hydroxychloroquine [Plaquenil] 200 mg tablet 200 mg PO BID pravastatin 80 mg tablet 80 mg PO QHS Patient Comments: TAKE ONE TABLET EVERY NIGHT AT BEDTIME sulfasalazine 500 mg tablet 1 g PO BID Patient Comments: TAKE 2 TABLETS BY MOUTH TWICE A DAY FOR 90 DAYS levothyroxine [Synthroid] 88 mcg tablet 88 mcg PO MOWEFR Patient Comments: 1/2 tab M, W, F multivitamin Tablet 1 tab PO DAILY hydrocodone-acetaminophen 5-325 mg tablet 0.5 - 1 tab PO QD-BID PRN (Reason: pain) cyclobenzaprine 10 mg tablet 10 mg PO BID PRN (Reason: muscle spasm) gabapentin 100 mg capsule 100 mg PO TID spironolactone 25 mg tablet 25 mg PO QDAY eletriptan [Relpax] 20 MG tablet 20 mg PO DAILY PRN cholecalciferol (vitamin D3) [Vitamin D3] 2,000 UNIT tablet 2,000 unit PO DAILY sodium fluoride-pot nitrate [PreviDent 5000 Sensitive] 100 ML paste 100 ml DT DAILY calcium carbonate-vitamin D3 [Caltrate with Vitamin D3] 1 TAB tablet 1 tab PO DAILY@0800 cevimeline [Evoxac] 30 mg capsule 30 mg PO BID aripiprazole 2 mg tablet 4 mg PO QHS gabapentin 400 mg capsule 400 mg PO TID levothyroxine 44 mcg capsule 44 mcg PO SUTUTHSA citalopram 20 mg tablet 30 mg PO DAILY 90 Days Qty: 135 1RF Held Mounjaro 7.5 mg/0.5 mL pen injector 10 mg subcut TH Hold Instructions: Resume on 04/23/25. Patient Comments: LAST DOSE 04/12/25 FOR SURGERY ON 04/20/25 Referrals / Follow Up: Ana Bolaños MD [Primary Care Provider] - Disposition Disposition (needs filled in before D/C Order can be placed): Home, Self Care 04/20/25 0926 Ash Chowdhury DO CC: Dr. Ana Bolaños MD Signed [facility] MR/POSTOP.[facility] 04-20-2025 MR/POSTOP.[facility] Medical Records Department [address] [place] [address] Anesthesia Postop Eval I 04/20/25 1004 MR#: [id number] Acct: [id number] Name: SANTOS ALLAN FRANCI Rep #: [id number] : 1965 59 From: Star Kathleen CRNA PCP: Dr. Ana Bolaños MD Status:REG SDC Y Race: C Location: [place] [address] Anesthesia: Postop Eval I Current Vital Signs Temperature: 97.4 F Pulse Rate: 87 Blood Pressure: 143/80 Respiratory Rate: 20 Pulse Ox: 95 Oxygen Delivery Method: Room Air Assessment Airway patent: Yes Spontaneous unlabored respirations: Yes Mental status: Awake and Calm nausea: No Vomiting: No Anesthesia Complication: No Fluid Hydration Crystalloid volume administer (ml): 700 Total IV fluid infused: 700 Progress Note Anesthesia document: Postop Eval 1 completed: Yes 04/20/25 1005 Date Star Kathleen CRNA Cosigner Signature: Date CC: Signed Normal [facility] Operative Reporton 5 Operative Report [facility] Medical Records Department [address] [place] [address] Operative Report 04/20/25 0955 MR#: [id number] Acct: [id number] Name: SANTOS ALLAN FRANCI Rep #: [id number] : 1965 59 From: Ash Chowdhury DO PCP: Dr. Ana Bolaños MD [facility] Location: [place] [address] Problems Associated Problem List Diagnoses (1) Endometrial thickening on ultrasound: (2) Fluid in endometrial cavity: Operative Report (Standard) Operative Information Date of Procedure: 04/20/25 Pre-Operative Diagnosis: Thickening of endometrium and endometrial fluid in pelvic ultrasound Post-Operative Diagnosis: As above Surgery/Procedure Performed: Hysteroscopy D C manager ccu: No Type of Anesthesia: Local and MAC RN Documented Start/Stop Times: Operation Date: 04/20/25 09:30 Case Time Into Pre-Op 04/20/25 08:11 Out of Pre-Op 04/20/25 09:14 Anesthesia Start 04/20/25 09:20 Into Room 04/20/25 09:20 Procedure Start 04/20/25 09:37 Procedure End 04/20/25 09:52 Procedure Start Time: 09:37 Procedure Stop Time: 09:52 Select all DRAINS/GRAFTS/IMPLANTS that apply: None Special Medications: None Estimated Blood Loss: < 20 mL Specimen collected: Yes Description of specimen(s) removed: Endometrial curettings Description of surgery: The patient was taken to the operating room where MAC anesthesia was induced and found to be adequate. She was prepped and draped in the dorsal lithotomy position using yellow fin stirrups. A weighted speculum was placed in the vagina to expose the cervix. The anterior lip of the cervix was grasped with a single-tooth tenaculum. 10 cc of local were injected circumferentially within the cervix. Vulvar and vaginal atrophy were noted. The cervix was flush with the vaginal tissue with a stenotic os. The cervix was serially dilated to accommodate the hysteroscope. The hysteroscope was advanced into the uterus, and the uterus was distended with normal saline as distention media. Bilateral tubal ostia were visualized. The endometrium was atrophic and thin appearing. No lesions were noted within the uterus or endocervix. The camera was removed. Sharp curettage was performed for scant tissue. The endometrial curettings were sent to pathology for review. Fluid deficit was 100 mL. All instruments were removed from the vagina. A vaginal sweep was performed. The patient was taken to the recovery room in stable condition. Surgical Findings: Normal appearing uterine cavity with thin atrophic endometrium No lesions on hysteroscopy Atrophy of vulva and vagina noted with stenotic cervical os Complications Complications: No Admit VTE Documentation VTE Mechan Device Prophylaxis: SCD's 04/20/25 0959 Cosigner Signature (if applicable): CC: Dr. Ana Bolaños MD; Dr. Ash Chowdhury DO Signed Normal [facility] Surgery Specimen Level Marie 04-20-2025 Surgery Specimen Level IV Patient Age/Sex Location Account Attending Physician SANTOS ALLAN 59/[facility] [id number] Dr. Ash Chowdhury, Specimen: [id number] Received: 04/20/25 Status: DIRK Jaramillo Num: [id number] Spec Type: ENDOM BX/C Subm Dr: Dr. Ash Chowdhury, [facility] OPERATION: Hysteroscopy, D C PRE-OP DIAGNOSIS: Abnormal uterine bleeding, submucosal fibroid TISSUE SUBMITTED: A- Endometrial curettings MICROSCOPIC DIAGNOSIS A. Endometrium, dilation and curettage: * Disordered proliferative endometrium. * Scant benign endocervical mucosa. MICROSCOPIC DESCRIPTION Slides are reviewed. GROSS DESCRIPTION A. Received in formalin labeled with the patient's name and date of . Designated as endometrial curettings is a is a 1.4 x 0.5 x 0.1 cm aggregate of pink-red tissue fragments. Entirely submitted in 1 cassette. RI 04/20/2025 CPT:05248 Patient Age/Sex Location Account Attending Physician SANTOS ALLAN 59/F [facility] [id number] Dr. Ash Chowdhury, DO Signed (signature on file) Dr. Doris Hopkins MD 04/24/25 1335 Normal [facility] Comment on above: Performed By: #### P SUIV ####[facility] [address] [place], [address] Orthopedic Visit Reporton Orthopedic Visit Report [facility] [address] [place] [address] OFFICE VISIT Date of Service: 04/18/25 MR#: [id number] Acct: [id number] Name: SANTOS ALLAN Rep #: [id number] : 1965 Provider: PHILL Vasquez Age/Sex: 59/F Location: [facility] [place] Status: Signed with Addenda ADDENDUM by PHILL Vasquez on 04/27/25 at 1136 Assessment and Plan Assessment and Plan (1) Lumbar stenosis with neurogenic claudication: Status: Acute (2) 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 10 mg subcut TH Plan Spoke with Dr. Bauman who recommended L5-S1 TLIF. Patient called and informed. 04/27/25 1136 Date Saundra Randle cc: Dr. Ana Bolaños MD * Signed Intake Vital Signs 03/08/25 15:13 04/05/25 15:53 04/18/25 15:34 Height 5 ft 6 in 5 ft 6 in 5 ft 6 in Weight: 179 lb 180 lb BMI 28.8 29.0 BP 140/81 H Blood Pressure Location Lt brachial Position Sitting Respiration 16 Pulse 77 Pulse Source Monitor Intake Visit Reasons: LUMBAR SPINE Chief Complaint: Lumbar spine MRI review Accompanied by: Self Is patient in pain?: Yes Pain scale (1-10): 6 Allergies sumatriptan (From Imitrex) Adverse Reaction (Intermediate, Verified 04/18/25 15:37) Other sumatriptan succinate (From Imitrex) Adverse Reaction (Intermediate, Verified 04/18/25 15:37) Other Medications ???Medication ???Instructions ???Recorded ???Confirmed ???Type calcium 600 mg (as 1 tab PO DAILY@0800 06/23/1304/18 History carbonate)-vitamin D3 20 mcg (800 unit) tablet (Caltrate with Vitamin D3) cholecalciferol (vitamin D3) 50 2,000 unit PO DAILY 06/23/1304/18 History mcg (2,000 unit) tablet (Vitamin D3) eletriptan 20 mg tablet (Relpax) 20 mg PO DAILY PRN MIGRAINE 04/18/25 History sodium fluoride 1.1 %-potassium 100 ml DT DAILY 06/23/13 04/18/25 History nitrate 5 % dental paste (PreviDent 5000 Sensitive) cevimeline 30 mg capsule (Evoxac) 30 mg PO BID 08/09/23 04/18/25 Hi story hydroxychloroquine 200 mg tablet 200 mg PO BID 08/09/23 04/18/25 Hi story (Plaquenil) leflunomide 20 mg tablet 20 mg PO DAILY 08/09/23 04/18/25 H istory levothyroxine 88 mcg tablet 88 mcg PO MOWEFR 08/09/23 04/18/25 History (Synthroid) lisinopril 20 mg tablet 20 mg PO DAILY 08/09/23 04/18/25 H istory metoprolol tartrate 25 mg tablet 12.5 mg PO DAILY 08/09/23 04/18/25 History multivitamin 1 tab PO DAILY 08/09/23 04/18/25 H istory omeprazole 20 mg capsule,delayed 20 mg PO DAILY 08/09/23 04/18/25 H istory release pravastatin 80 mg tablet 80 mg PO QHS 08/09/23 04/18/25 His tory sulfasalazine 500 mg tablet 1 g PO BID 08/09/23 04/18/25 Histo ry cyclobenzaprine 10 mg tablet 10 mg PO BID PRN muscle spasm 09/1504/18/25 History gabapentin 400 mg capsule 400 mg PO TID 11/08/24 04/18/25 Hi story levothyroxine 44 mcg capsule 44 mcg PO SUTUTHSA 11/08/24 History hydrocodone-acetaminophen 5-325mg 0.5 - 1 tab PO QD-BID PRN pain 04/18/25 History 5mg-325mg citalopram 20 mg tablet 30 mg (1.5 x 20 mg) PO DAILY 90 04/18/25 Rx days #135 tabs gabapentin 100 mg capsule 100 mg PO TID 04/05/25 04/18/25 Hi story tirzepatide 7.5 mg/0.5 mL 10 mg subcut TH 04/05/25 04/18/25 History subcutaneous pen injector (Jimmy) aripiprazole 2 mg tablet 4 mg PO QHS 04/10/25 04/18/25 Hist ory spironolactone 25 mg tablet 25 mg PO QDAY 04/18/25 04/18/25 Hi story Have you fallen in the past year?: No PFSH Medical History Alcohol use Former smoker History of edema Wears glasses Thyroid disease Back pain Injury of head and neck History of hiatal hernia Gastric reflux Sleep apnea History of echocardiogram JINNY (generalized anxiety disorder) Bipolar II disorder Sjogrens syndrome Fibromyalgia Vitamin deficiency Pneumonia Osteoarthritis Neuropathy IBS (irritable bowel syndrome) High triglycerides High cholesterol Hypertension Migraines Gastrointestinal problem Diabetes Carpal tunnel syndrome Bone fracture Back problem Arthritis Anemia Surgical History History of epidural steroid injection into cervical spine History of esophagogastroduodenoscopy (EGD) History of colonoscopy Hx of removal of cyst Hx of cervical spine surgery H/O gastric sleeve Previous back surgery History of carpal tunnel surgery of left wrist Gastric banding status H/O partial (more content not included)... Normal [facility] CBC-Complete Blood Cnt No Di ffon 04-13-2025 Erythrocyte distribution width (RBC) [Ratio] 12.5 % Normal 11.6-14.6 [facility] Comment on above: Performed By: #### L 100.0500, BTSPAT, L500.4050 ####[facility] [address] [place], [place], [id number] Hematocrit (Bld) [Volume fraction] 41.1 % Normal 37-47 [facility] Comment on above: Performed By: #### L 100.0500, BTSPAT, L500.4050 ####[facility] [address] [facility] [place], [place], [phone] Hemoglobin (Bld) [Mass/Vol] 13.4 g/dL Normal 12.0-15.0 [facility] Comment on above: Performed By: #### L 100.0500, BTSPAT, L500.4050 ####[facility] [address] [place], [address] MCH (RBC) [Entitic mass] 29.8 pg Normal 27.0-32.0 [facility] Comment on above: Performed By: #### L 100.0500, BTSPAT, L500.4050 ####[facility] [address] [place], [address] MCHC (RBC) [Mass/Vol] 32.6 g/dL Normal 32-36 [facility] Comment on above: Performed By: #### L 100.0500, BTSPAT, L500.4050 ####[facility] [address] [place], [address] MCV (RBC) [Entitic vol] 91.3 fL Normal 81-99 [facility] Comment on above: Performed By: #### L 100.0500, BTSPAT, L500.4050 ####[facility] [address] [place], [address] Platelet mean volume (Bld) [Entitic vol] 9.5 fL Normal 6.2-12.0 [facility] Comment on above: Performed By: #### L 100.0500, BTSPAT, L500.4050 ####[facility] [address] [place], [address] Platelets (Bld) [#/Vol] 266 10*3/uL Normal 150-450 [facility] Comment on above: Performed By: #### L 100.0500, BTSPAT, L500.4050 ####[facility] [address] [place], [address] RBC (Bld) [#/Vol] 4.50 10*6/uL Normal 4.2-5.4 [facility] Comment on above: Performed By: #### L 100.0500, BTSPAT, L500.4050 ####[facility] [address] [place], [address] RDW SD 41.7 fl Normal 35.1-43.9 [facility] Comment on above: Performed By: #### L 100.0500, BTSPAT, L500.4050 ####[facility] [address] [place], [address] WBC (Bld) [#/Vol] 4.9 10*3/uL Normal 4.4-11.0 [facility] Comment on above: Performed By: #### L 100.0500, BTSPAT, L500.4050 ####[facility] [address] [place], [address] Comprehensive Metabolic Prof ilon 04-13-2025 Albumin [Mass/Vol] 4.1 g/dL Normal 3.5-5.0 [facility] Comment on above: Performed By: #### L 100.0500, BTSPAT, L500.4050 ####[facility] [address] [place], [address] Albumin/Globulin [Mass ratio] 1.6 {ratio} Normal 0.9-2.4 [facility] Comment on above: Performed By: #### L 100.0500, BTSPAT, L500.4050 ####[facility] [address] [place], [address] ALK PHOS 90 U/L Normal 35-104 [facility] Comment on above: Performed By: #### L 100.0500, BTSPAT, L500.4050 ####[facility] [address] [place], [address] ALT [Catalytic activity/Vol] 13 U/L Normal <=34 [facility] Comment on above: Performed By: #### L 100.0500, BTSPAT, L500.4050 ####[facility] [address] [place], [address] AST [Catalytic activity/Vol] 20 U/L Normal <=31 [facility] Comment on above: Performed By: #### L 100.0500, BTSPAT, L500.4050 ####[facility] [address] [place], [address] Bilirubin [Mass/Vol] 0.35 mg/dL Normal 0.00-1.30 [facility] Comment on above: Performed By: #### L 100.0500, BTSPAT, L500.4050 ####[facility] [address] [place], [address] BUN/CRE 6.3 RATIO Low 10-20 [facility] Comment on above: Performed By: #### L 100.0500, BTSPAT, L500.4050 ####[facility] [address] [place], [address] Calcium [Mass/Vol] 9.2 mg/dL Normal 7.6-11.0 [facility] Comment on above: Performed By: #### L 100.0500, BTSPAT, L500.4050 ####[facility] [address] [place], [address] Chloride [Moles/Vol] 103 mmol/L Normal 98-108 [facility] Comment on above: Performed By: #### L 100.0500, BTSPAT, L500.4050 ####[facility] [address] [place], [address] CO2 [Moles/Vol] 27.0 mmol/L Normal 21.0-32.0 [facility] Comment on above: Performed By: #### L 100.0500, BTSPAT, L500.4050 ####[facility] [address] [place], [address] Creatinine [Mass/Vol] 0.58 mg/dL Low 0.70-1.20 [facility] Comment on above: Performed By: #### L 100.0500, BTSPAT, L500.4050 ####[facility] [address] [place], [address] GAP 10 Normal 5-15 [facility] Comment on above: Performed By: #### L 100.0500, BTSPAT, L500.4050 ####[facility] [address] [place], [address] GFR/1.73 sq M.predicted among non-blacks MDRD (S/P/Bld) [Vol rate/Area] 105 mL/min/{1.73_m2} Normal >60 [facility] Comment on above: Result Comment: mL/m in/1.73m2 CKD-EPI Creatinine Equation (2020) Performed By: #### L 100.0500, BTSPAT, L500.4050 ####[facility] [address] [place], [address] Globulin (S) [Mass/Vol] 2.5 g/dL Normal 2.2-4.2 [facility] Comment on above: Performed By: #### L 100.0500, BTSPAT, L500.4050 ####[facility] [address] [place], [address] Glucose [Mass/Vol] 82 mg/dL Normal 70-99 [facility] Comment on above: Performed By: #### L 100.0500, BTSPAT, L500.4050 ####[facility] [address] [place], [address] Potassium [Moles/Vol] 4.1 mmol/L Normal 3.3-5.1 [facility] Comment on above: Performed By: #### L 100.0500, BTSPAT, L500.4050 ####[facility] [address] [place], [address] Sodium [Moles/Vol] 140 mmol/L Normal 133-145 [facility] Comment on above: Performed By: #### L 100.0500, BTSPAT, L500.4050 ####[facility] [address] [place], [address] T PROT 6.6 g/dL Normal 5.9-8.4 [facility] Comment on above: Performed By: #### L 100.0500, BTSPAT, L500.4050 ####[facility] [address] [place], [address] Urea nitrogen [Mass/Vol] 4 mg/dL Normal 4-19 [facility] Comment on above: Performed By: #### L 100.0500, BTSPAT, L500.4050 ####[facility] [address] [place], [address] Spine Lumbar (Routine)on Spine Lumbar (Routine) [facility] Imaging Services [address] [place] [address] Spine Lumbar (Routine) MR#: [id number] Acct: [id number] Name: SANTOS ALLAN FRANCI Rep #: [id number] : 1965 F 59 From: Max Alva MD PCP: Dr. Ana Bolaños MD Status: REG CLI Study: Spine Lumbar (Routine) Date of Exam: 04/13/25 Exam# [id number] Ordering Dr: Saundra Randle PROCEDURE: SPINE LUMBAR (ROUTINE) 04/13/2025 REASON FOR EXAM: PAIN L5-S1 DEGENERATION TECHNIQUE: SPINE LUMBAR (ROUTINE) COMPARISON: Lumbar spine x-ray 03/08/2025. FINDINGS: Vertebrae: Height is preserved. No abnormal signal. Alignment: Unremarkable. Conus Medullaris: Unremarkable. L1-2: Disc desiccation. No foraminal or canal stenosis. L2-3: Mild facet joints arthropathy and ligamentum flavum hypertrophy. No significant foraminal or canal stenosis. L3-4: Disc desiccation. Disc bulge. A superimposed 3 mm central disc protrusion. Facet joint arthropathy and ligamentum flavum hypertrophy. Mild inferior bilateral foramina stenosis. Severe canal stenosis. L4-5: Disc bulge. Annular fissure. A superimposed 4 mm central disc protrusion. Facet joint arthropathy. Ligamentum flavum hypertrophy. Mild bilateral foramina stenosis. Severe canal stenosis. L5-S1: Disc desiccation. Disc bulge. A 3 mm central disc protrusion. Facet joint arthropathy. Moderate bilateral foramina stenosis. No canal stenosis. Sacrum: Unremarkable. MRI/Spine Lumbar (Routine) IMPRESSION: Degenerative changes, predominantly for severe canal stenosis at L3-L4 and L4-L5. Reading Location: [facility] CC: PHILL Vasquez; Dr. 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, [address] Bacteria Ur Culton 5 Bacteria identified Cx Nom (U) ORGANISM ID: 1 10,000 -<50,000 CFU/ml Mixed microbiota No further workup. Mixed microbiota can be due to???urine???contamination with skin bacteria at time of collection or presence of a long-term urinary catheter. If a new culture is needed, please consider re-education of the patient on proper midstream collection technique or straight catheterization for???urine???collection. Normal [facility] Comment on above: Performed By: #### 6 30-4 ####[facility] LABCLIA [id number] [address] [place] CNOVon 04-10-2025 CNOV Office Visit (FAMPWS ) SANTOS ALLAN ([id number]) 1965 F Date Time Provider Department 04/10/25 10:00 AM ANGELIQUE BRADFORD During your visit today, we recorded the following information about you: Temperature Pulse Blood pressure Weight 97.5 degrees 71/minute 126/81 81.6 kg Angelique Bradford PA-C 04/10/2025 10:27 AM Signed - Start Cephalexin (Keflex) as directed: take 1 capsule twice daily for 7 days; prescription sent to [facility]. - A urine sample has been sent for culture; we will contact you with the results. - Drink plenty of water to help flush your bladder. - Complete the full antibiotic course even if your symptoms improve. - Let your gynecology team know you were recently treated with antibiotics before your DANDC on April 20. - Watch for fever over 100 degreeF, vomiting, or severe belly or back pain; if any of these occur, go to the emergency room. - Your DANDC is scheduled for April 20, with a post-operative follow-up on May 07. - If the urine culture is negative, schedule an appointment with urology for further evaluation. - If the culture is positive, continue with antibiotics based on sensitivity and proceed with your planned gynecology workup. If additioal UTI would consider referral to urology at that time Angelique Bradford PA-C 04/10/2025 12:38 PM Signed Recording using [employer] software for draft documentation of the visit was discussed with the patient/authorized customer relations representative; all questions welcomed and answered. Patient/authorized customer relations representative agreed to proceed 04/10/2025 Recurrent UTIs: - Lower abdominal pain described as constant pressure, similar to a full bladder. - Denies recent sexual activity. - Third episode in 5-6 weeks; no UTIs in the past 30 years prior to this. - First episode treated with antibiotics before culture; second episode had a positive culture with symptom resolution post-treatment. - Last treatment with Keflex was well-tolerated. urine culture showed sensitivity. - Denies fever, emesis, or severe back pain. - Concerns about potential interstitial cystitis. Gynecological Concerns: - Recent CT scan revealed fibroids; subsequent vaginal ultrasound confirmed fibroids and thickened endometrium with fluid. - Scheduled for DANDC on April 20 due to inability to tolerate office biopsy. - Recent Pap smear and HPV test were clear. Current Outpatient Medications on File Prior to Visit Medication Sig potassium chloride 20 mEq TbER Take 2 tablets by mouth two times a day. ARIPiprazole (ABILIFY) 2 mg tablet Take 2 tablets by mouth once daily. hydroCHLOROthiazide 12.5 mg capsule Take 1 capsule by mouth once daily. gabapentin (NEURONTIN) 100 mg capsule Take 1 capsule by mouth three times a day for 180 days. estradiol (ESTRACE) 0.01 % (0.1 mg/gram) vaginal cream apply 1 gram of cream to lower vagina qhs daily for 2 weeks, and then twice weekly potassium chloride (K-TAB) 10 mEq tablet Take 1 tablet by mouth two times a day. eletriptan (RELPAX) 20 mg tablet Take 1 at start of headache, may repeat in 2 hours if necessary (total of 3 tablets) tirzepatide (MOUNJARO) 10 mg/0.5 mL pen injector Inject 10 mg subcutaneously one time a week. omeprazole (PRILOSEC) 20 mg capsule Take 1 capsule by mouth once daily. levothyroxine (SYNTHROID) 88 mcg tablet Take 1/2 tablet 3 days a week and whole tablet rest of the week. pravastatin (PRAVACHOL) 80 mg tablet Take 1 tablet by mouth once daily. cyanocobalamin, vitamin B-12, (VITAMIN B-12 ORAL) Take 5,000 mg by mouth every other day. MEDICATION, NON-DATABASE Alphalipoic metoprolol tartrate, short acting, (LOPRESSOR) 25 mg tablet Take 0.5 tablets by mouth once daily. lisinopril (ZESTRIL) 20 mg tablet Take 1 tablet by mouth twice daily. leflunomide (ARAVA) 10 mg tablet Take 2 tablets by mouth once daily. cyclobenzaprine (FLEXERIL) 10 mg tablet Take 1 tablet by mouth three times daily. Cholecalciferol, Vitamin D3, (VITAMIN D) 1,000 unit tab Take 1,000 Units by mouth once daily. sulfaSALAzine (AZULFIDINE) 500 mg tablet Take 1 tablet by mouth twice daily. cevimeline (EVOXAC) 30 mg ORAL capsule Take 60 mg by mouth twice daily. citalopram hydrobromide(CELEXA 20 MG TAB) Take 1.5 tablet daily. sodium fluoride/pot nitrate(PREVIDENT 5000 SENSITIVE 1.1 %-5 % DENTAL PASTE) gabapentin (NEURONTIN) 400 mg capsule Take 1 capsule by mouth three times a day for 180 days. No current facility-administered medications on file prior to visit. PAST MEDICAL HISTORY Diagnosis Date Acid reflux Anemia Anxiety disorder in conditions classified elsewhere Arthritis 03/03/2016 Bipolar I disorder, most recent episode (or current) unspecified Hypothyroidism Myalgia and myositis, unspecified REMIGIO (obstructive sleep apnea) DME - [employer] for AutoPAP Other and unspecified hyperlipidemia Right ankle (more content not included)... Normal [facility] UA DIP, URINE (POC)on 2024 BILIRUBIN UA (POCT) Negative Negative [facility] CLARITY UA (POCT) Clear [facility] COLOR UA (POCT) Yellow [facility] GLUCOSE UA (POCT) Negative Negative mg/dL [facility] Hemoglobin Ql (U) Small Abnormal Negative [facility] Interpretation and review of laboratory results Abnormal [facility] KETONE UA (POCT) Negative Negative mg/dL [facility] LEUKOCYTES UA (POCT) Large Abnormal Negative [facility] NITRITE UA (POCT) Negative Negative [facility] PH UA (POCT) 6 4.5 - 8.0 [facility] Protein Ql (U) Negative Negative mg/dL [facility] SPECIFIC GRAVITY UA (POCT) 1.01 1.005 - 1.030 [facility] UROBILINOGEN UA (POCT) 0.2 Normal E.U./dL [facility] Location:[facility], [address] [place] [address], [place], [address] [facility] POINT OF CARE [facility] Basic metabolic 2000 panelon 04-09-2025 Anion gap [Moles/Vol] 16 mmol/L High 8-15 [facility] Comment on above: Order Comment: Speci men Type: BLOOD SPECIMENOrdering Facility: [facility] Address: [address] [address] Performed By: #### 2 1799-2 ####[facility] MILLTOWNCLIA [id number] [place] [address] [place] Calcium [Mass/Vol] 9.5 mg/dL Normal 8.5-10.2 [facility] Comment on above: Order Comment: Speci men Type: BLOOD SPECIMENOrdering Facility: [facility] Address: [address] [place] [address] Performed By: #### 2 4321-2 ####[facility] DORALWNCLIA [id number] [place] [address] [place] Chloride [Moles/Vol] 100 mmol/L Normal 98-107 [facility] Comment on above: Order Comment: Speci men Type: BLOOD SPECIMENOrdering Facility: [facility] Address: [address] [place] [address] Performed By: #### 2 4321-2 ####[facility]ENTERLIA [id number] [place] [address] [place] CO2 [Moles/Vol] 23 mmol/L Normal 22-30 [facility] Comment on above: Order Comment: Speci men Type: BLOOD SPECIMENOrdering Facility: [facility] Address: [address] [place] [address] Performed By: #### 2 4321-2 ####[facility] DORALWNCLIA [id number] [place] [address] [place] Creatinine [Mass/Vol] 0.64 mg/dL Normal 0.58-0.96 [facility] Comment on above: Order Comment: Speci men Type: BLOOD SPECIMENOrdering Facility: [facility] Address: [address] [place] [address] Performed By: #### 2 4321-2 ####[facility]ENTERNCLIA [id number] [place] [address] [place] eGFRcr SerPlBld CKD-EPI 2020 103 mL/min/1.73m??? Normal >=60 [facility] Comment on above: Order Comment: Sg león Type: BLOOD SPECIMENOrdering Facility: [facility] Address: [address] [place] [address] Result Comment: Marilee mated Glomerular Filtration Rate (eGFR) is calculated using the 2020 CKD-EPI creatinine equation. This equation utilizes serum creatinine, sex, and age as parameters. The creatinine assay has traceable calibration to isotope dilution-mass spectrometry. Refer to KDIGO guidelines for clinical interpretation. In patients with unstable renal function, e.g. those with acute kidney injury, the eGFR may not accurately reflect actual GFR. Performed By: #### 2 4321-2 ####[facility]ENTERBALDEVTIMPANOG[facility] [id number] [place] [address] [place] Glucose [Mass/Vol] 83 mg/dL Normal 74-99 [facility] Comment on above: Order Comment: Sg león Type: BLOOD SPECIMENOrdering Facility: [facility] Address: [address] [place] [address] Result Comment: The [place] Diabetes Association (ADA) provides guidance for cutoff values for fasting glucose and random glucose. The ADA defines fasting as no caloric intake for at least 8 hours. Fasting plasma glucose results between 100 to 125 mg/dL indicate increased risk for diabetes (prediabetes). Fasting plasma glucose results greater than or equal to 126 mg/dL meet the criteria for diagnosis of diabetes. In the absence of unequivocal hyperglycemia, results should be confirmed by repeat testing. In a patient with classic symptoms of hyperglycemia or hyperglycemic crisis, random plasma glucose results greater than or equal to 200 mg/dL meet the criteria for diagnosis of diabetes. Reference: Standards of Medical Care in Diabetes 2016, [place] Diabetes Association. Diabetes Care. 2016.39(Suppl 1). Performed By: #### 2 4321-2 ####[facility] CENTERREINA [id number] [place] [address] [place] Potassium [Moles/Vol] 4.6 mmol/L Normal 3.7-5.1 [facility] Comment on above: Order Comment: Speci men Type: BLOOD SPECIMENOrdering Facility: [facility] Address: [address] [place] [address] Performed By: #### 2 4321-2 ####[facility] [place] KONSTANTIN [id number] [address] [place] Sodium [Moles/Vol] 139 mmol/L Normal 136-144 [facility] Comment on above: Order Comment: Speci men Type: BLOOD SPECIMENOrdering Facility: [facility] Address: [address] [place] [address] Performed By: #### 2 4321-2 ####[facility] KONSTANTIN [id number] [address] [place] Urea nitrogen [Mass/Vol] 6 mg/dL Low 7-21 [facility] Comment on above: Order Comment: Speci men Type: BLOOD SPECIMENOrdering Facility: [facility] Address: [address] [place] [address] Performed By: #### 2 4321-2 ####[facility] KRISTOPHERKYRIELIA [id number] [address] OF [facility] CNOVon 04-09-2025 CNOV Office Visit (OBGYWM ) SANTOS ALLAN ([id number]) 1965 F Date Time Provider Department 04/09/25 9:20 AM ASH CHOWDHURY OBKAL During your visit today, we recorded the following information about you: Pulse Respiration Blood pressure Weight 76/minute 14/minute 116/75 81.3 kg Height 1.676 m Ash Chowdhury MD 04/09/2025 2:31 PM Signed DATE OF SERVICE: April 09, 2025 PROBLEM: fluid in endometrial cavity, pre op DIAGNOSIS: as above PAST SURGICAL HISTORY: PAST SURGICAL HISTORY Procedure Laterality Date - ANTERIOR INTERBODY FUSION, CERVICAL 09/13/2009 C5-C6 - ARTHROSCOPY KNEE DIAGNOSTIC W/WO SYNOVIAL BX SPX Right knee - COLONOSCOPY FLX DX W/COLLJ SPEC WHEN PFRMD 09/13/2002 Colonoscopy - diagnosed with IBS - COLONOSCOPY FLX DX W/COLLJ SPEC WHEN PFRMD 04/05/2013 Colonoscopy repeat 3 years - COLONOSCOPY FLX DX W/COLLJ SPEC WHEN PFRMD 03/18/2016 Colonoscopy (MAC) - ESOPHAGOGASTRODUODENOSCOPY TRANSORAL DIAGNOSTIC 04/05/2013 EGD - ESOPHAGOGASTRODUODENOSCOPY TRANSORAL DIAGNOSTIC 01/02/2015 EGD - LAP ADJUSTABLE GASTRIC BAND 08/13/2008 - PAST SURGICAL HISTORY OF left foot surgery - PAST SURGICAL HISTORY OF 02/11/2013 left carpal tunnel - PAST SURGICAL HISTORY OF 02/11/2013 radial styloidectomy - PAST SURGICAL HISTORY OF 09/13/2013 c5,c6 refusion - PT ED BARIATRIC AND METABOLIC N/A 08/2022 - THYROIDECTOMY TOTAL/COMPLETE partial right - non malignant - TONSILLECTOMY PRIMARY/SECONDARY Tonsillectomy PAST MEDICAL HISTORY: PAST MEDICAL HISTORY Diagnosis Date - Acid reflux - Anemia - Anxiety disorder in conditions classified elsewhere - Arthritis 03/03/2016 - Bipolar I disorder, most recent episode (or current) unspecified - Hypothyroidism - Myalgia and myositis, unspecified - REMIGIO (obstructive sleep apnea) DME - [employer] for AutoPAP - Other and unspecified hyperlipidemia - Right ankle sprain 05/31/2017 - Sjogren's disease (HCC) - Type II or unspecified type diabetes mellitus without mention of complication, uncontrolled since 2002 - Unspecified essential hypertension - Unspecified vitamin D deficiency 03/10/2007 SUBJECTIVE: Pt doing well and offers no complaints SOCIAL HISTORY: Social History Tobacco Use - Smoking status: Former Current packs/day: 0.00 Average packs/day: 0.5 packs/day for 20.0 years (10.0 ttl pk-yrs) Types: Cigarettes Start date: 06/14/1983 Quit date: 06/14/2003 Years since quittin.8 Passive exposure: Never - Smokeless tobacco: Never Vaping Use - Vaping status: Never Used Substance Use Topics - Alcohol use: Yes Comment: social - 1 drink a month - Drug use: No ALLERGIES Allergen Reactions - Hydrocodone-Acetami* Itching - Imitrex [Sumatripta* Face went numb - Prednisone Mental Status Change Current Outpatient Medications on File Prior to Visit Medication Sig - potassium chloride 20 mEq TbER Take 2 tablets by mouth two times a day. - ARIPiprazole (ABILIFY) 2 mg tablet Take 2 tablets by mouth once daily. - hydroCHLOROthiazide 12.5 mg capsule Take 1 capsule by mouth once daily. - gabapentin (NEURONTIN) 100 mg capsule Take 1 capsule by mouth three times a day for 180 days. - estradiol (ESTRACE) 0.01 % (0.1 mg/gram) vaginal cream apply 1 gram of cream to lower vagina qhs daily for 2 weeks, and then twice weekly - potassium chloride (K-TAB) 10 mEq tablet Take 1 tablet by mouth two times a day. - eletriptan (RELPAX) 20 mg tablet Take 1 at start of headache, may repeat in 2 hours if necessary (total of 3 tablets) - tirzepatide (MOUNJARO) 10 mg/0.5 mL pen injector Inject 10 mg subcutaneously one time a week. - omeprazole (PRILOSEC) 20 mg capsule Take 1 capsule by mouth once daily. - levothyroxine (SYNTHROID) 88 mcg tablet Take 1/2 tablet 3 days a week and whole tablet rest of the week. - pravastatin (PRAVACHOL) 80 mg tablet Take 1 tablet by mouth once daily. - cyanocobalamin, vitamin B-12, (VITAMIN B-12 ORAL) Take 5,000 mg by mouth every other day. - MEDICATION, NON-DATABASE Alphalipoic - metoprolol tartrate, short acting, (LOPRESSOR) 25 mg tablet Take 0.5 tablets by mouth once daily. - lisinopril (ZESTRIL) 20 mg tablet Take 1 tablet by mouth twice daily. - leflunomide (ARAVA) 10 mg tablet Take [...] 5000 SENSITIVE 1.1 %-5 % DENTAL PASTE) - gabapentin (NEURONTIN) 400 mg capsule Take 1 capsule by mouth three times a day for 180 days. No c (more content not included)... Normal [facility] HISTORY PHYSICALon HISTORY PHYSICAL HNO ID: [id number] Author: ASH CHOWDHURY MD Service: ? Author Type: Physician Type: H&P Filed: 04/09/2025 14:31 Note Text: DATE OF SERVICE: April 09, 2025 PROBLEM: fluid in endometrial cavity, pre op DIAGNOSIS: as above PAST SURGICAL HISTORY: PAST SURGICAL HISTORY Procedure Laterality Date - ANTERIOR INTERBODY FUSION, CERVICAL 09/13/2009 C5-C6 - ARTHROSCOPY KNEE DIAGNOSTIC W/WO SYNOVIAL BX SPX Right knee - COLONOSCOPY FLX DX W/COLLJ SPEC WHEN PFRMD 09/13/2002 Colonoscopy - diagnosed with IBS - COLONOSCOPY FLX DX W/COLLJ SPEC WHEN PFRMD 04/05/2013 Colonoscopy repeat 3 years - COLONOSCOPY FLX DX W/COLLJ SPEC WHEN PFRMD 03/18/2016 Colonoscopy (MAC) - ESOPHAGOGASTRODUODENOSCOPY TRANSORAL DIAGNOSTIC 04/05/2013 EGD - ESOPHAGOGASTRODUODENOSCOPY TRANSORAL DIAGNOSTIC 01/02/2015 EGD - LAP ADJUSTABLE GASTRIC BAND 08/13/2008 - PAST SURGICAL HISTORY OF left foot surgery - PAST SURGICAL HISTORY OF 02/11/2013 left carpal tunnel - PAST SURGICAL HISTORY OF 02/11/2013 radial styloidectomy - PAST SURGICAL HISTORY OF 09/13/2013 c5,c6 refusion - PT ED BARIATRIC AND METABOLIC N/A 08/2022 - THYROIDECTOMY TOTAL/COMPLETE partial right - non malignant - TONSILLECTOMY PRIMARY/SECONDARY Tonsillectomy PAST MEDICAL HISTORY: PAST MEDICAL HISTORY Diagnosis Date - Acid reflux - Anemia - Anxiety disorder in conditions classified elsewhere - Arthritis 03/03/2016 - Bipolar I disorder, most recent episode (or current) unspecified - Hypothyroidism - Myalgia and myositis, unspecified - REMIGIO (obstructive sleep apnea) DME - [employer] for AutoPAP - Other and unspecified hyperlipidemia - Right ankle sprain 05/31/2017 - Sjogren's disease (HCC) - Type II or unspecified type diabetes mellitus without mention of complication, uncontrolled since 2002 - Unspecified essential hypertension - Unspecified vitamin D deficiency 03/10/2007 SUBJECTIVE: Pt doing well and offers no complaints SOCIAL HISTORY: Social History Tobacco Use - Smoking status: Former Current packs/day: 0.00 Average packs/day: 0.5 packs/day for 20.0 years (10.0 ttl pk-yrs) Types: Cigarettes Start date: 06/14/1983 Quit date: 06/14/2003 Years since quittin.8 Passive exposure: Never - Smokeless tobacco: Never Vaping Use - Vaping status: Never Used Substance Use Topics - Alcohol use: Yes Comment: social - 1 drink a month - Drug use: No ALLERGIES Allergen Reactions - Hydrocodone-Acetami* Itching - Imitrex [Sumatripta* Face went numb - Prednisone Mental Status Change Current Outpatient Medications on File Prior to Visit Medication Sig - potassium chloride 20 mEq TbER Take 2 tablets by mouth two times a day. - ARIPiprazole (ABILIFY) 2 mg tablet Take 2 tablets by mouth once daily. - hydroCHLOROthiazide 12.5 mg capsule Take 1 capsule by mouth once daily. - gabapentin (NEURONTIN) 100 mg capsule Take 1 capsule by mouth three times a day for 180 days. - estradiol (ESTRACE) 0.01 % (0.1 mg/gram) vaginal cream apply 1 gram of cream to lower vagina qhs daily for 2 weeks, and then twice weekly - potassium chloride (K-TAB) 10 mEq tablet Take 1 tablet by mouth two times a day. - eletriptan (RELPAX) 20 mg tablet Take 1 at start of headache, may repeat in 2 hours if necessary (total of 3 tablets) - tirzepatide (MOUNJARO) 10 mg/0.5 mL pen injector Inject 10 mg subcutaneously one time a week. - omeprazole (PRILOSEC) 20 mg capsule Take 1 capsule by mouth once daily. - levothyroxine (SYNTHROID) 88 mcg tablet Take 1/2 tablet 3 days a week and whole tablet rest of the week. - pravastatin (PRAVACHOL) 80 mg tablet Take 1 tablet by mouth once daily. - cyanocobalamin, vitamin B-12, (VITAMIN B-12 ORAL) Take 5,000 mg by mouth every other day. - MEDICATION, NON-DATABASE Alphalipoic - metoprolol tartrate, short acting, (LOPRESSOR) 25 mg tablet Take 0.5 tablets by mouth once daily. - lisinopril (ZESTRIL) 20 mg tablet Take 1 tablet by mouth twice daily. - leflunomide (ARAVA) 10 mg tablet Take [...] 5000 SENSITIVE 1.1 %-5 % DENTAL PASTE) - gabapentin (NEURONTIN) 400 mg capsule Take 1 capsule by mouth three times a day for 180 days. No current facility-administered medications on file prior to visit. Pelvic US: * * *Final Report* * * DATE OF EXAM: Feb 06 2025 10:31AM WRU [id number] - US FEMALE PELVIS TRANSVAG / PROCEDURE REASON: multiple diagnoses * * * * Physician Interpretation * * * * EXAMINATION: TRA (more content not included)... Normal [facility] MR/BMS.BPon 04-05-2025 MR/BMS.[facility] [address] [facility], [address] [address] OFFICE VISIT Date of Service: 04/05/25 MR#: [id number] Acct: [id number] Name: SANTOS ALLAN FRANCI Rep #: [id number] : 1965 Provider: Dr. Josue Melgoza se, DO Age/Sex: 59/F Location[place] [facility] [place] Status: Signed Intake Vital Signs 12/07/24 15:58 03/08/25 15:13 04/05/25 15:53 Height 5 ft 6 in 5 ft 6 in 5 ft 6 in Weight: 179 lb BMI 28.8 BP 140/81 H Blood Pressure Location Lt brachial Position Sitting Respiration 16 Pulse 77 Pulse Source Monitor BP Intake Visit Reasons: 4 M FU Accompanied by: Self Allergies sumatriptan (From Imitrex) Adverse Reaction (Intermediate, Verified 04/05/25 15:58) Other sumatriptan succinate (From Imitrex) Adverse Reaction (Intermediate, Verified 04/05/25 15:58) Other Medications ???Medication ???Instructions ???Recorded ???Confirmed ???Type calcium 600 mg (as 1 tab PO DAILY@0800 06/23/1304/05 History carbonate)-vitamin D3 20 mcg (800 unit) tablet (Caltrate with Vitamin D3) cholecalciferol (vitamin D3) 50 2,000 unit PO DAILY 06/23/1304/05 History mcg (2,000 unit) tablet (Vitamin D3) eletriptan 20 mg tablet (Relpax) 20 mg PO .X1 PRN 06/23/13 04/05/25 History sodium fluoride 1.1 %-potassium 100 ml DT DAILY 06/23/13 04/05/25 History nitrate 5 % dental paste (PreviDent 5000 Sensitive) cevimeline 30 mg capsule (Evoxac) 30 mg PO BID 08/09/23 04/05/25 Hi story hydrochlorothiazide 12.5 mg capsule 12.5 mg PO DAILY 08/09/2304/05 History hydroxychloroquine 200 mg tablet 200 mg PO BID 08/09/23 04/05/25 Hi story (Plaquenil) leflunomide 20 mg tablet 20 mg PO DAILY 08/09/23 04/05/25 H istory levothyroxine 88 mcg tablet 88 mcg PO MOWEFR 08/09/23 04/05/25 History (Synthroid) lisinopril 20 mg tablet 20 mg PO DAILY 08/09/23 04/05/25 H istory metoprolol tartrate 25 mg tablet 12.5 mg PO DAILY 08/09/23 04/05/25 History multivitamin 1 tab PO DAILY 08/09/23 04/05/25 H istory omeprazole 20 mg capsule,delayed 20 mg PO DAILY 08/09/23 04/05/25 H istory release potassium chloride 10 mEq 10 meq PO BID 08/09/23 04/05/25 Hi story tablet,extended release pravastatin 80 mg tablet 80 mg PO QHS 08/09/23 04/05/25 His tory sulfasalazine 500 mg tablet 1 g PO BID 08/09/23 04/05/25 Histo ry cyclobenzaprine 10 mg tablet 10 mg PO BID PRN muscle spasm 09/1504/05/25 History gabapentin 400 mg capsule 400 mg PO 3XD 11/08/24 04/05/25 Hi story levothyroxine 44 mcg capsule 44 mcg PO SUTUTHSA 11/08/24 History hydrocodone-acetaminophen 5-325mg 0.5 - 1 tab PO QD-BID PRN pain 04/05/25 History 5mg-325mg citalopram 20 mg tablet 30 mg (1.5 x 20 mg) PO DAILY 90 04/05/25 Rx days #135 tabs aripiprazole 2 mg tablet 4 mg (2 x 2 mg) PO DAILY 90 days 0 03/02/25 04/05/25 Rx #180 tabs gabapentin 100 mg capsule 100 mg PO TID 04/05/25 04/05/25 Hi story tirzepatide 7.5 mg/0.5 mL 10 mg subcut QWEEK 04/05/25 History subcutaneous pen injector (Nedunfletcherro) PFSH Medical History Wears glasses Thyroid disease Back pain Injury of head and neck History of hiatal hernia Gastric reflux Sleep apnea History of echocardiogram JINNY (generalized anxiety disorder) Bipolar II disorder Sjogrens syndrome Fibromyalgia Vitamin deficiency Pneumonia Osteoarthritis Neuropathy IBS (irritable bowel syndrome) High triglycerides High cholesterol Hypertension Migraines Gastrointestinal problem Diabetes Carpal tunnel syndrome Bone fracture Back problem Arthritis Anemia Surgical History Hx of removal of cyst Hx of cervical spine surgery H/O gastric sleeve Previous back surgery History of carpal tunnel surgery of left wrist Gastric banding status H/O partial thyroidectomy Hx of arthroscopic knee surgery Hx of tonsillectomy Family History Mother Anxiety Breast cancer Cancer Diabetes Hypertension High cholesterol Psychiatric care Uterine cancer Father Arthritis Diabetes Hypertension High cholesterol Osteoporosis CVA (cerebral vascular accident) Other Colon cancer Depression Mental disorder Social History Smoking Status: Former smoker how long ago did patient quit smoking: quit 22 years ago alcohol intake: current details: 1-2 drinks, 1-2x month substance use type: does not use what type of physical activity do you participate in: walking frequency: 3-4 times per week additional social history: pt denies vaping, denies edibles, paul (more content not included)... Normal [facility] Basic metabolic 2000 panelon 03-30-2025 Anion gap [Moles/Vol] 15 mmol/L Normal 8-15 [facility] Comment on above: Order Comment: Speci men Type: BLOOD SPECIMENOrdering Facility: [facility] Address: [address] [place] [address] Performed By: #### 2 4321-2 ####[facility] LABCLIA [id number] [place] [address] [place] Calcium [Mass/Vol] 9.4 mg/dL Normal 8.5-10.2 [facility] Comment on above: Order Comment: Speci men Type: BLOOD SPECIMENOrdering Facility: [facility] Address: [address] [place] [address] Performed By: #### 2 4321-2 ####[facility] LABCLIA [id number] [place] [address] [place] Chloride [Moles/Vol] 95 mmol/L Low 98-107 [facility] Comment on above: Order Comment: Speci men Type: BLOOD SPECIMENOrdering Facility: [facility] Address: [address] [place] [address] Performed By: #### 2 4321-2 ####[facility] LABCLIA [id number] [place] [id number] [place] CO2 [Moles/Vol] 27 mmol/L Normal 22-30 [facility] Comment on above: Order Comment: Speci men Type: BLOOD SPECIMENOrdering Facility: [facility] Address: [address] [place] [address] Performed By: #### 2 4321-2 ####[facility] LABIA [id number] [address] [address] [place] Creatinine [Mass/Vol] 0.57 mg/dL Low 0.58-0.96 [facility] Comment on above: Order Comment: Speci men Type: BLOOD SPECIMENOrdering Facility: [facility] Address: [address] [place] [address] Performed By: #### 2 4321-2 ####[facility] LABIA [id number] [place] [address] [place] eGFRcr SerPlBld CKD-EPI 2020 106 mL/min/1.73m??? Normal >=60 [facility] Comment on above: Order Comment: Speci men Type: BLOOD SPECIMENOrdering Facility: [facility] Address: [address] [place] [address] Result Comment: Marilee mated Glomerular Filtration Rate (eGFR) is calculated using the 2020 CKD-EPI creatinine equation. This equation utilizes serum creatinine, sex, and age as parameters. The creatinine assay has traceable calibration to isotope dilution-mass spectrometry. Refer to KDIGO guidelines for clinical interpretation. In patients with unstable renal function, e.g. those with acute kidney injury, the eGFR may not accurately reflect actual GFR. Performed By: #### 2 4321-2 ####[facility] LABCLIA [id number] [place] [id number] [place] Glucose [Mass/Vol] 82 mg/dL Normal 74-99 [facility] Comment on above: Order Comment: Speci men Type: BLOOD SPECIMENOrdering Facility: [facility] Address: [address] [place] [address] Result Comment: The [place] Diabetes Association (ADA) provides guidance for cutoff values for fasting glucose and random glucose. The ADA defines fasting as no caloric intake for at least 8 hours. Fasting plasma glucose results between 100 to 125 mg/dL indicate increased risk for diabetes (prediabetes). Fasting plasma glucose results greater than or equal to 126 mg/dL meet the criteria for diagnosis of diabetes. In the absence of unequivocal hyperglycemia, results should be confirmed by repeat testing. In a patient with classic symptoms of hyperglycemia or hyperglycemic crisis, random plasma glucose results greater than or equal to 200 mg/dL meet the criteria for diagnosis of diabetes. Reference: Standards of Medical Care in Diabetes 2016, [place] [employer] Association. Diabetes Care. 2016.39(Suppl 1). Performed By: #### 2 4321-2 ####[facility] LABCLIA [id number] [place] [address] [place] Potassium [Moles/Vol] 2.8 mmol/L Low 3.7-5.1 [facility] Comment on above: Order Comment: Speci men Type: BLOOD SPECIMENOrdering Facility: [facility] Address: [address] [place] [address] Performed By: #### 2 4321-2 ####[facility] LABIA [id number] [place] [id number] [place] Sodium [Moles/Vol] 137 mmol/L Normal 136-144 [facility] Comment on above: Order Comment: Sg león Type: BLOOD SPECIMENOrdering Facility: [facility] Address: [address] [place] [address] Performed By: #### 2 1-2 ####[facility] LABIA [id number] [place] [id number] [place] Urea nitrogen [Mass/Vol] 4 mg/dL Low 7-21 [facility] Comment on above: Order Comment: Vondai men Type: BLOOD SPECIMENOrdering Facility: [facility] Address: [address] [place] [address] Performed By: #### 2 4321-2 ####[facility] LABIA [id number] [place] [id number] [place] CNOVon 03-30-2025 CNOV Office Visit (INTMWS ) SANTOS ALLAN ([id number]) 1965 F Date Time Provider Department 03/30/25 7:00 AM FIOR ALVAREZ INTFRANCA During your visit today, we recorded the following information about you: Temperature Pulse Respiration Blood pressure 98.2 degrees 76/minute 18/minute 102/70 Weight Height 80.3 kg 1.676 m Fior Alvarez APRN.[facility] 03/30/2025 10:05 AM Signed CC: No chief complaint on file. FREDA Allan is a 59 year old female who presents today for pre-op evaluation. Surgical Procedure: Hysteroscopy and dilation and curettage Date of Procedure: 04/20/25 Surgeon: Dr. Trenton DUVALL date: 04/09/25 METS: Walk indoors, such as around the house (1.75 METs): YES Do light work around the house, such as dusting or washing dishes (2.70 METs): YES Take care of self; that is eating, dressing, bathing, using the toilet (2.75 METs): YES Walk a block or two on level ground (2.75 METs): YES Do moderate work around the house such as vacuuming, sweeping floors, or carrying in groceries (3.50 METs): YES Do yardwork, such as raking leaves, weeding,or pushing a power mower (4.50 METs): YES Climb a flight of stairs or walk up a hill (5.50 METs): YES Participate in moderate recreational activities, such as golf, bowling, dancing, doubles tennis, or throwing a baseball or football (6.00 METs): YES Participate in strenuous sport, such as swimming, singles tennis, football, basketball, or skiing (7.50 METs): YES Do heavy work around the house, such as scrubbing floors, lifting or moving heavy furniture (8.00 METs): YES Run a short distance (8.00 METs): unknown Total: 8.0 Patient denies any chest pain or undue shortness of breath with the above physical activity. 1. Diabetes: History of this but A1c has been normal for years. 2. Hypertension requiring medication: Yes 3. Congestive Heart Failure: No 4. Current Smoker within 1 Year: No 5. History of COPD: No 6. History of REMIGIO: Yes does not require cpap or bipap any longer due to weight loss 7. Dialysis: No HTN and HLD: Ms. Allan denies headache, chest pain, palpitations, dyspnea, and peripheral edema. Patient denies any side effects of her medication(s) and is compliant with their regimen. She does check BP's away from this office with average BP's in the 120/75 range. Santos works out regularly 4-5 times per week with walking and light weights. She watches her diet for sodium, low fat and low cholesterol most of the time. Last 3 Encounter BP Readings: Date: BP: 03/28/2025 105/74 03/12/2025 118/82 03/07/2025 120/78 Sleep: Is at baseline for patient Alcohol use: one drink a month Drug use: No Appetite: good Stresses: Denies any major stressor. Suicidal Thoughts: No suicidal or homicidal ideation, intent or plan REMIGIO: no longer requiring use of bipap due to weight loss. Stopped use 3 months ago, down 100 pounds. Denies snoring, witnessed apnea. Reports restful sleep. Chronic migraines: Well controlled at this time and occurring on average once a month and resolve with use of relpax. Hypothyroidism: Taking levothyroxine as ordered. Denies any abnormal changes in weight or energy. REVIEW OF SYSTEMS General: no fevers, no chills, no night sweats, no recurrent infections, no change in appetite, no change in energy, and no significant changes in weight HEENT: no frequent or significant headaches, no changes in hearing, no visual changes, no nose bleeds, no sinus or nasal problems Neck: no lumps, no pain , and no swelling Respiratory: no cough, no wheezing, no shortness of breath, no hemoptysis Cardiovascular: no chest pain, no chest pressure, no palpitations, and no swelling GI: No nausea, vomiting, or diarrhea : No history of dysuria, frequency or incontinence Neurologic: No headache, weakness, numbness, tingling, dizziness, memory loss, syncope. PAST MEDICAL HISTORY Diagnosis Date Acid reflux Anemia Anxiety disorder in conditions classified elsewhere Arthritis 03/03/2016 Bipolar I disorder, most recent episode (or current) unspecified Hypothyroidism Myalgia and myositis, unspecified RMEIGIO (obstructive sleep apnea) DME - [employer] for [...] FLX DX W/COLLJ SPEC WHEN PFRMD 03/18/2016 (more content not included)... Normal [facility] CNOVon 03-28-2025 CNOV Office Visit (NEMOWS ) SANTOS ALLAN ([id number]) 1965 F Date Time Provider Department 03/28/25 4:00 PM LUZ MEEKS During your visit today, we recorded the following information about you: Pulse Respiration Blood pressure Weight 81/minute 16/minute 105/74 79.5 kg Wendy Tejada LPN 03/28/2025 4:31 PM Signed Luz Meeks PA-C 03/28/2025 4:31 PM Signed I have [facility] for General Neurology Name: Santos Weygandt Age: [age] year old Gender: female Primary Care Provider: Ana Bolaños MD Assessment/Plan: 03/28/2025 - General Neurology, Luz Meeks PA-C ASSESSMENT ASSESSMENT/PLAN: 1. Paresthesia of both feet - ICD9: 782.0, ICD10: R20.2 (primary diagnosis) 2. Neuropathy - ICD9: 355.9, ICD10: G62.9 Patient with some mild breakthrough pain of her neuropathy symptoms to her toes and feet. Repeat EMG was negative, did redemonstrate S1. Follows with pain management and has repeat MRI of the lumbar scheduled for April 13. No falls, signs or symptoms of acute cord compression. Laboratory studies were unrevealing for etiology for neuropathy symptoms. Discussed obtaining a skin biopsy to look for small fiber neuropathy but patient deferring this at this time. Will continue to treat as neuropathy. Discussed increasing to 500 mg 3 times a day for gabapentin dosing and patient is amenable to this. Discussed trying just in the afternoon where most of her breakthrough pain is and increasing as tolerated and needed. No new symptoms that would warrant additional workup at this time, patient agreeable to treatment plan at this time. Will follow-up in 3 to 6 months. PDMP website checked and validated. All prescriptions have been APPROPRIATELY filled. No suspicious activity was identified. 03/28/2025 by KENNEDI Aguiar PA-C Encounter Diagnosis ICD-10-CM 1. Paresthesia of both feet R20.2 2. Neuropathy G62.9 Return in about 3 months (around 06/28/2025). Chart, labs,and relevant images reviewed. Chief Complaint:Patient presents with: Follow Up: Herman Tse 01/22/25- completed xrays and EMG Chart Review: 01/22/25 Plan: - EMG in 09/2023 was unremarkable will repeat the study to demonstrate and quantify peripheral neuropathy if any - May consider skin biopsy if this workup is negative -In absence of any radicular symptoms we will screen for x-ray lumbar spine and cervical spine to rule out any acute process, stability of hard lee in cervical spine -Screening labs for treatable causes of neuropathy including B12, B6, B1, folate, A1c, serum protein electrophoresis -Remain on gabapentin 400 mg 3 times daily, muscle relaxers Flexeril 3 times daily, hydrocodone for as needed use -Follow-up, encouraged in person exam to help with neurologic exam and sensory exam after workup is completed, if Luz is back she can schedule a follow-up with Luz as well at [facility]. I spent a total of 35 minutes on the date of the service which included preparing to see the patient, [id number] patient care, completing clinical documentation, obtaining and/or reviewing separately obtained history, performing a medically appropriate examination, counseling and educating the patient/family/caregiver, and ordering medications, tests, or procedures. Lucille Brandt PA-C HPI: Last seen on 01/22/25 for FU neuropathy, previously on gabapentin 400mg tid. Ordered repeat EMG and showed S1 but no neuropathy. XR lumbar spine showing degeneration. Patient presents for follow-up appointment. Notes some breakthrough pain specifically throughout the afternoon and evening. Otherwise gabapentin does seem to be helping her neuropathic pain on her feet. Was seen by another neurology PA and had some repeat workup done including repeat EMG which was stable from previous. Laboratory studies were unrevealing. X-ray of the lumbar spine did show some degenerative changes consistent with the EMG and patient does have an MRI of the lumbar spine scheduled with orthopedics for April 13. No falls, new signs or symptoms. Still experiencing paresthesias to the bottom of the feet, worse at the toes and occasionally up the leg bilaterally to the mid tib-fib in a stocking distribution. No falls but occasional tripping. Review of Systems ACTIVE PROBLEM LIST Bipolar I Disorder, Most Recent Episode Depressed (Hcc) Dysmetabolic Syndrome X Vitamin D Deficiency Irritable Bowel Syndrome Headache(784.0) Cervicalgia Hypoparathyroidism (Hcc) Sjogren's Disease (Hcc) Lap-Band Surgery Status Acid Reflux Iron Deficiency Acquired Hypothyroidism Migraine Without Aura and Without Status Migrainosus, Not Intractable Arthritis Obstructive Sleep Apnea Syndrome Class 2 Obesity Due to Excess Calories Without Serious Comorbidity With Body Mass Index (Bmi) of 39.0 to 39.9 in (more content not included)... Normal [facility] Miguel 03-28-2025 MICKY Telephone (OBGYWM) SATNOS ALLAN ([id number]) 1965 F Date Time Provider Department 03/28/25 ASH CHOWDHURY During your visit today, we recorded the following information about you: Christofer Moore RN 03/28/2025 1:10 PM Signed Patient scheduled for hysteroscopy [facility] on 04/20/25. Calling because she has MRI with contrast on 04/13/25 and asking if the contrast will affect anything with surgery/anesthesia. QUINCY Ovalle Sara, MD 04/02/2025 9:51 AM Signed No concerns Keren Carreon RN 04/02/2025 10:00 AM Signed Left message to call office. QUINCY Cooley Trisha, RN 04/02/2025 10:08 AM Signed Patient notified. Christofer Moore RN Allergies As of Date: 03/28/2025 Noted Allergy Reaction HYDROCODONE-ACETAMINOPHEN 08/24/2019 9 - Itching IMITREX (SUMATRIPTAN) 07/25/2007 Comments: Face went numb PREDNISONE 09/05/2024 1 - Mental Status Change Date Reviewed: 03/28/2025 Reviewed by: Luz Meeks PA-C - Fully Assessed Reason for Visit: Patient Question [3337] Prescriptions as of 04/02/2025 - ARIPiprazole (ABILIFY) 2 mg tablet Take 2 tablets by mouth once daily. - hydroCHLOROthiazide 12.5 mg capsule Take 1 capsule by mouth once daily. - gabapentin (NEURONTIN) 100 mg capsule Take 1 capsule by mouth three times a day for 180 days. - estradiol (ESTRACE) 0.01 % (0.1 mg/gram) vaginal cream apply 1 gram of cream to lower vagina qhs daily for 2 weeks, and then twice weekly - potassium chloride (K-TAB) 10 mEq tablet Take 1 tablet by mouth two times a day. - eletriptan (RELPAX) 20 mg tablet Take 1 at start of headache, may repeat in 2 hours if necessary (total of 3 tablets) - tirzepatide (MOUNJARO) 10 mg/0.5 mL pen injector Inject 10 mg subcutaneously one time a week. - omeprazole (PRILOSEC) 20 mg capsule Take 1 capsule by mouth once daily. - levothyroxine (SYNTHROID) 88 mcg tablet Take 1/2 tablet 3 days a week and whole tablet rest of the week. - pravastatin (PRAVACHOL) 80 mg tablet Take 1 tablet by mouth once daily. - gabapentin (NEURONTIN) 400 mg capsule Take 1 capsule by mouth three times a day for 180 days. - cyanocobalamin, vitamin B-12, (VITAMIN B-12 ORAL) Take 5,000 mg by mouth every other day. - MEDICATION, NON-DATABASE Alphalipoic - metoprolol tartrate, short acting, (LOPRESSOR) 25 mg tablet Take 0.5 tablets by mouth once daily. - lisinopril (ZESTRIL) 20 mg tablet Take 1 tablet by mouth twice daily. - leflunomide (ARAVA) 10 mg tablet Take [...] DENTAL PASTE) Problem List As Of Date 03/28/2025 Noted Resolved DIABETES MELLITUS ADULT ONSET [E11.9] [...] 03/03/2016 Obstructive sleep apnea syndrome [G47.33] 05/26/2018 Class 2 obesity due to excess calories without *03/03/2024 Essential hypertension [I10] 08/11/2024 History of adjustable gastric banding [Z98.84] 11/18/2021 Gastric polyp [K31.7] 11/18/2021 Type 2 diabetes mellitus (HCC) [E11.9] 01/26/2024 Encounter Status:Closed by CHRISTOFER MOORE on 04/02/25 [facility] CNOVmilo 03-12-2025 CNOV Office Visit (INTMWS ) SANTOS ALLAN ([id number]) 1965 F Date Time Provider Department 03/12/25 8:40 AM ANA BOLAÑOS INTMWS During your visit today, we recorded the following information about you: Pulse Blood pressure Weight 87/minute 118/82 81.9 kg Ana Bolaños MD 03/12/2025 9:14 AM Signed We discussed your recurrent urinary tract infections (UTIs): - You recently completed a course of Keflex for your UTI. Please monitor for any recurrence of symptoms such as burning with urination, urgency, or fever. If these symptoms return, contact our office. We discussed your medications and blood pressure management: - We decided to discontinue hydrochlorothiazide. Please continue taking potassium as prescribed, as your potassium levels tend to run low. - Monitor your blood pressure regularly at home. If you notice swelling in your legs or an increase in your blood pressure, please contact our office, as we may need to restart hydrochlorothiazide. - We will recheck your basic metabolic panel (BMP) in 3 months to assess your potassium levels and kidney function. We discussed your history of diabetes and weight management: - You have done well with weight loss on Mounjaro and gastric bypass. Continue your current regimen, as it has helped improve your diabetes control. - If you would like to lose an additional 10 pounds, continue your current exercise routine, which includes walking and light weights. We discussed your kidney health: - You have microalbuminuria (a small amount of protein in your urine), which indicates some kidney involvement. Lisinopril is protective for your kidneys, so please continue taking it as prescribed. We discussed your history of obstructive sleep apnea: - You are no longer using your CPAP machine and are sleeping well. No further action is needed at this time. Follow-up: - We will recheck your BMP in 3 months to monitor your potassium levels and kidney function. - Please contact our office if you experience swelling, elevated blood pressure, or any other concerning symptoms. Ana Bolaños MD 03/12/2025 1:17 PM Signed Reason for Visit Follow up HPI Santos Alaln is a 59-year-old female with a history of recurrent UTIs, presenting for follow-up. Santos reports a recent UTI, which she believes may be a recurrence from a previous infection last month. She notes that this is the first time she has experienced a UTI in 30 years. She has completed a course of Keflex and is currently taking another antibiotic, with two doses remaining. She is also experiencing breakthrough pain despite taking gabapentin 400 mg TID. She mentions that her neurologist has not diagnosed large cell neuropathy but has observed symptoms up to a certain level. Santos suspects that her neuropathy could be related to small cell neuropathy or lesions in her back, as noted in previous CT scans and X-rays. Santos has a history of obesity and has been taking Mounjaro 10 mg, which has helped her lose weight. She currently weighs 180 lbs and expresses a desire to lose an additional 10 lbs. She also has a history of diabetes, which is currently well-managed. She underwent gastric bypass surgery in 2016, during which a band slipped, causing frequent emesis and significant weight loss at the time. She has a history of REMIGIO and reports that she is no longer using her CPAP machine but is sleeping well. She also has a history of hypokalemia and is currently taking potassium supplements. She is on multiple medications, including sulfasalazine, atorvastatin, potassium, omeprazole, metoprolol, lisinopril, Synthroid, Arava, HCTZ, gabapentin, Ropax, Flexeril, escitalopram, Exovac, and Abilify 2 mg. She denies experiencing memory issues or fatigue related to her medications. She is also engaging in regular exercise, including walking and light weightlifting. Social History Tobacco Use Smoking status: Former Current packs/day: 0.00 Average packs/day: 0.5 packs/day for 20.0 years (10.0 ttl pk-yrs) Types: Cigarettes Start date: 06/14/1983 Quit date: 06/14/2003 Years since quittin.7 Passive exposure: Never Smokeless tobacco: Never Vaping Use Vaping status: Never Used Substance Use Topics Alcohol use: Yes Comment: social Drug use: No Past medical history, appointments, medications, allergies reviewed. Pertinent Lab/Diagnostic Studies are reviewed and discussed today Current Outpatient Medications: cephALEXin (KEFLEX) 250 mg capsule eletriptan (RELPAX) 20 mg tablet tirzepatide (MOUNJARO) 10 mg/0.5 mL pen injector omeprazole (PRILOSEC) 20 mg capsule levothyroxine (SYNTHROID) 88 mcg tablet pravastatin (PRAVACHOL) 80 mg tablet gabapentin (NEURONTIN) 400 mg capsule cyanocobalamin, vitamin B-12, (VITAMIN B-12 ORAL) MEDICATION, NON-DATABASE metoprolol tartrate, shor (more content not included)... Normal [facility] L/S Spine Bending Flex/[place] 03-08-2025 L/S Spine Bending Flex/Ext [facility] Imaging Services [address] [place], [place] [id number] L/S Spine Bending Flex/Ext MR#: [id number] Acct: [id number] Name: SANTOS ALLAN FRANCI Rep #: [id number] : 1965 F 59 From: Fredrick Keating MD PCP: Status: DEP AMB Study: L/S Spine Bending Flex/Ext Date of Exam: 03/08 Exam# [id number] Ordering Dr: Saundra Randle EXAM: XR Lumbosacral Spine Flexion/Extension Only, 2 or 3 Views CLINICAL INDICATION: ONGOING PAIN TECHNIQUE: Lateral flexion/extension views of the lumbar spine and sacrum. COMPARISON: No relevant prior studies available. FINDINGS: VERTEBRAE: Moderate facet arthropathy of L4 the S1. Moderate degenerative changes and disc disease of L5-S1. Normal sagittal alignment. No acute fracture or significant dynamic instability. SACRUM/COCCYX: Unremarkable as visualized. No acute fracture. DISC SPACES: No acute findings. No significant narrowing. SOFT TISSUES: Unremarkable. RAD/L/S Spine Bending Flex/Ext IMPRESSION: 1. No acute fracture or significant dynamic instability. 2. Degenerative changes as above. 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 [address] [place] [address] OFFICE VISIT Date of Service: 03/08/25 MR#: [id number] Acct: [id number] Name: SANTOS ALLAN FRANCI Rep #: [id number] : 1965 Provider: PHILL Vasquez Age/Sex: 59/F Location: [facility] Status: Signed Intake Vital Signs 12/15/24 08:20 03/08/25 15:13 Height 5 ft 6 in 5 ft 6 in Weight: 182 lb BMI 29.3 Intake Visit Reasons: LUMBAR SPINE Chief Complaint: Lumbar spine pain Accompanied by: Self Is patient in pain?: Yes Pain scale (1-10): 5 Allergies sumatriptan (From Imitrex) Adverse Reaction (Intermediate, Verified 03/08/25 15:16) Other sumatriptan succinate (From Imitrex) Adverse Reaction (Intermediate, Verified 03/08/25 15:16) Other Medications ???Medication ???Instructions ???Recorded ???Confirmed ???Type calcium 600 mg (as 1 tab PO DAILY@0800 06/23/1303/08 History carbonate)-vitamin D3 20 mcg (800 unit) tablet (Caltrate with Vitamin D3) cholecalciferol (vitamin D3) 50 2,000 unit PO DAILY 06/23/1303/08 History mcg (2,000 unit) tablet (Vitamin D3) eletriptan 20 mg tablet (Relpax) 20 mg PO .X1 PRN 06/23/13 03/08/25 History sodium fluoride 1.1 %-potassium 100 ml DT DAILY 06/23/13 03/08/25 History nitrate 5 % dental paste (PreviDent 5000 Sensitive) cevimeline 30 mg capsule (Evoxac) 30 mg PO BID 08/09/23 03/08/25 Hi story hydrochlorothiazide 12.5 mg capsule 12.5 mg PO DAILY 08/09/2303/08 History hydroxychloroquine 200 mg tablet 200 mg PO BID 08/09/23 03/08/25 Hi story (Plaquenil) leflunomide 20 mg tablet 20 mg PO DAILY 08/09/23 03/08/25 H istory levothyroxine 88 mcg tablet 88 mcg PO MOWEFR 08/09/23 03/08/25 History (Synthroid) lisinopril 20 mg tablet 20 mg PO DAILY 08/09/23 03/08/25 H istory metoprolol tartrate 25 mg tablet 12.5 mg PO DAILY 08/09/23 03/08/25 History multivitamin 1 tab PO DAILY 08/09/23 03/08/25 H istory omeprazole 20 mg capsule,delayed 20 mg PO DAILY 08/09/23 03/08/25 H istory release potassium chloride 10 mEq 10 meq PO BID 08/09/23 03/08/25 Hi story tablet,extended release pravastatin 80 mg tablet 80 mg PO QHS 08/09/23 03/08/25 His tory sulfasalazine 500 mg tablet 1 g PO BID 08/09/23 03/08/25 Histo ry cyclobenzaprine 10 mg tablet 10 mg PO BID PRN muscle spasm 09/1503/08/25 History tirzepatide 7.5 mg/0.5 mL 7.5 mg subcut QWEEK 10/12/2403/08 History subcutaneous pen injector (Jimmy) gabapentin 400 mg capsule 400 mg PO 3XD 11/08/24 03/08/25 Hi story levothyroxine 44 mcg capsule 44 mcg PO SUTUTHSA 11/08/24 History hydrocodone-acetaminophen 5-325mg 0.5 - 1 tab PO QD-BID PRN pain 03/08/25 History 5mg-325mg citalopram 20 mg tablet 30 mg (1.5 x 20 mg) PO DAILY 90 03/08/25 Rx days #135 tabs aripiprazole 2 mg tablet 4 mg (2 x 2 mg) PO DAILY 90 days 0 03/02/25 03/08/25 Rx #180 tabs Have you fallen in the past year?: No PFSH Medical History Wears glasses Thyroid disease Back pain Injury of head and neck History of hiatal hernia Gastric reflux Sleep apnea History of echocardiogram JINNY (generalized anxiety disorder) Bipolar II disorder Sjogrens syndrome Fibromyalgia Vitamin deficiency Pneumonia Osteoarthritis Neuropathy IBS (irritable bowel syndrome) High triglycerides High cholesterol Hypertension Migraines Gastrointestinal problem Diabetes Carpal tunnel syndrome Bone fracture Back problem Arthritis Anemia Surgical History Hx of removal of cyst Hx of cervical spine surgery H/O gastric sleeve Previous back surgery History of carpal tunnel surgery of left wrist Gastric banding status H/O partial thyroidectomy Hx of arthroscopic knee surgery Hx of tonsillectomy Family History Mother Anxiety Breast cancer Cancer Diabetes Hypertension High cholesterol Psychiatric care Uterine cancer Father Arthritis Diabetes Hypertension High cholesterol Osteoporosis CVA (cerebral vascular accident) Other Colon cancer Depression Mental disorder Social History Smoking Status: Former smoker how long ago did patient quit smoking: quit 22 years ago alcohol intake: current details: 1-2 drinks, 1-2x month substance use type: does not use what type of physical activity do you participate in: walking frequency: 3-4 times per week additional social history: pt denies vaping, denies edibles, denies marijuana use, denies aspirin and ibuprofen use. (more content not included)... Normal [facility] Bacteria Ur Culton 5 Bacteria identified Cx Nom (U) ORGANISM ID: 1 >=100,000 CFU/ml Klebsiella pneumoniae ORGANISM ID: 1 (KLEBSIELLA PNEUMONIAE) --------- ANTIBIOTIC INTERPRETATION FERN STATUS REFERENCE RANGE --------- Ampicillin R F Cefazolin S <=4 F Susceptible 0-16 , Intermediate <0 or >16 , Resistant >16 For uncomplicated urinary tract infections, cefazolin results can be used to predict susceptibility or resistance to cephalexin. Ceftriaxone S <=1 F Susceptible <=1 , Intermediate >1 , Resistant >=4 Cefepime S <=1 F Susceptible <=2 , Susceptible-Dose Dependent >2 , Resistant >=16 Ertapenem S <=0.5 F Susceptible <=0.5 , Intermediate >.5 , Resistant >1 Meropenem S <=0.25 F Susceptible <=1 , Intermediate >1 , Resistant >2 Ampicillin/Sulbact S <=2 F Susceptible <=8 , Intermediate >8 , Resistant >16 Piperacillin/Tazobac S <=4 F Susceptible <16 , Susceptible-Dose Dependent >=16 , Resistant >=32 Gentamicin S <=1 F Susceptible <=2 , Intermediate >2 , Resistant >=8 Tobramycin S <=1 F Susceptible <4 , Intermediate >=4 , Resistant >=8 Trimeth sulfameth S <=20 F Susceptible <=40 , Resistant >40 Ciprofloxacin S <=0.25 F Susceptible <0.5 , Intermediate >=.5 , Resistant >=1 Nitrofurantoin R 256 F Susceptible <=32 , Intermediate >32 , Resistant >64 Abnormal [facility] Comment on above: Performed By: #### 6 30-4 ####[facility] LABCLIA [id number] [place] [id number] [facility] CNOVon 03-07-2025 CNOV Office Visit (INTMWS ) SANTOS ALLAN ([id number]) 1965 F Date Time Provider Department 03/07/25 8:00 AM JACQUIE CLARKE INTMWS During your visit today, we recorded the following information about you: Temperature Pulse Respiration Blood pressure 97.5 degrees 84/minute 16/minute 120/78 Weight 82.4 kg Jacquie Clarke, 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 Patient/authorized customer relations representative agreed to proceed Santos Allan is a 59-year-old female presenting with recurrent UTI symptoms. UTI Symptoms: - right lower quadrant abdominal pain x 1 month - Recent onset of urinary cramping x 2 days - Denies gross hematuria, fever, chills, or cloudy urine. - History of UTI approximately one month ago, treated with Macrobid. - Persistent pain led to a CT scan, revealing fibroids and thickened endometrium. Referred to gynecology; severe pain during speculum exam. Review of Systems See HPI PAST MEDICAL HISTORY Diagnosis Date Acid reflux [...] - non malignant TONSILLECTOMY PRIMARY/SECONDARY Tonsillectomy ALLERGIES Hydrocodone-Acetaminophen, Imitrex [Sumatriptan], and Prednisone MEDICATIONS cephALEXin (KEFLEX) 250 mg capsule Take 1 capsule by mouth two times a day for 7 days. eletriptan (RELPAX) 20 mg tablet Take 1 at start of headache, may repeat in 2 hours if necessary (total of 3 tablets) potassium chloride (K-TAB) 10 mEq tablet Take 1 tablet by mouth two times a day. phenazopyridine (PYRIDIUM) 100 mg tablet Take 2 tablets by mouth three times a day as needed. (Patient not taking: Reported on 02/08/2025) tirzepatide (MOUNJARO) 10 mg/0.5 mL pen injector Inject 10 mg subcutaneously one time a week. hydroCHLOROthiazide 12.5 mg capsule Take 1 capsule by mouth once daily. omeprazole (PRILOSEC) 20 mg capsule Take 1 capsule by mouth once daily. levothyroxine (SYNTHROID) 88 mcg tablet Take 1/2 tablet 3 days a week and whole tablet rest of the week. pravastatin (PRAVACHOL) 80 mg tablet Take 1 tablet by mouth once daily. gabapentin (NEURONTIN) 400 mg capsule Take 1 capsule by mouth three times a day for 180 days. cyanocobalamin, vitamin B-12, (VITAMIN B-12 ORAL) Take 5,000 mg by mouth every other day. MEDICATION, NON-DATABASE Alphalipoic metoprolol tartrate, short acting, (LOPRESSOR) 25 mg tablet Take 0.5 tablets by mouth once daily. lisinopril (ZESTRIL) 20 mg tablet Take 1 tablet by mouth twice daily. (Patient taking differently: Take 20 mg by mouth once daily.) CPAP/BIPAP/OTHER BiPAP 25/20 cmH2O. [employer]. Type .CPAPSettings into a note to see current settings/supplies/DME information. CPAP Bilevel 25/20 cmH2O, Resmed F20 FFM (small), Ti max 2.0, Ti min 0.3, Trigger medium, Cycle medium, HUMIDITY, LIFETIME SUPPLIES. leflunomide (ARAVA) 10 mg tablet Take 2 tablets by mouth once daily. cyclobenzaprine (FLEXERIL) 10 mg tablet Take 1 tablet by mouth three times daily. Cholecalciferol, Vitamin D3, (VITAMIN D) 1,000 unit tab Take 1,000 Units by mouth once daily. sulfaSALAzine (AZULFIDINE) 500 mg tablet Take 1 tablet by mouth twice daily. aripiprazole (ABILIFY) 2 mg tablet Take 1 tablet by mouth twice daily. (Patient taking differently: Take 4 mg by (more content not included)... Normal [facility] UA DIP, URINE (POC)on 2024 BILIRUBIN UA (POCT) Negative Negative [facility] CLARITY UA (POCT) Clear [facility] COLOR UA (POCT) Yellow [facility] GLUCOSE UA (POCT) Negative Negative mg/dL [facility] Hemoglobin Ql (U) Moderate Abnormal Negative [facility] Interpretation and review of laboratory results Abnormal [facility] KETONE UA (POCT) Negative Negative mg/dL [facility] LEUKOCYTES UA (POCT) Large Abnormal Negative [facility] NITRITE UA (POCT) Negative Negative [facility] PH UA (POCT) 6 4.5 - 8.0 [facility] Protein Ql (U) Negative Negative mg/dL [facility] SPECIFIC GRAVITY UA (POCT) 1.01 1.005 - 1.030 [facility] UROBILINOGEN UA (POCT) 0.2 Normal E.U./dL [facility] Location:[address], [address] [place] [address] POINT OF CARE [facility] ALBUMIN/CREATININE RATIO, UR INEon 03-02-2025 Albumin DL <= 20 mg/L (U) [Mass/Vol] 52.8 mg/L Normal [facility] Comment on above: Order Comment: Speci men Type: URINE SPECIMENOrdering Facility: [facility] Address: [address] [place] [address] Performed By: #### U ACR ####[facility] LABCLIA [id number] [place] [address] [place] Albumin/Creatinine (U) [Mass ratio] 88 mg/g High <30 [facility] Comment on above: Order Comment: Speci men Type: URINE SPECIMENOrdering Facility: [facility] Address: [address] [place] [address] Result Comment: Adul t Male and Female Nephrotic Criteria: <30 mg/g is considered normal to mildly increased 30-300 mg/g is considered moderately increased >300 mg/g is considered severely increased KDIGO. (2013). KDIGO 2012 Clinical Practice Guideline for the Evaluation and Management of Chronic Kidney Disease. Official Journal of the International Society of Nephrology, 3(1), 1-150. Performed By: #### U ACR ####[facility] LABCLIA [id number] [address] [address] [place] Creatinine (U) [Mass/Vol] 60.3 mg/dL Normal 20.0-300.0 [facility] Comment on above: Order Comment: Speci men Type: URINE SPECIMENOrdering Facility: [facility] Address: [address] [place] [address] Performed By: #### U ACR ####[facility] LABIA [id number] [place] [id number] [place] Lipid 1996 panelon 5 Cholesterol [Mass/Vol] 175 mg/dL Normal <200 [facility] Comment on above: Order Comment: Speci men Type: BLOOD SPECIMENOrdering Facility: [facility] Address: [address] [place] [address] Result Comment: <200 mg/dL, Desirable 200-239 mg/dL, Borderline high >239 mg/dL, High Performed By: #### 2 4331-1, 3016-3 ####[facility] LABIA [id number] [place], [place] [address] [place] Cholesterol in HDL [Mass/Vol] 46 mg/dL Normal >39 [facility] Comment on above: Order Comment: Speci men Type: BLOOD SPECIMENOrdering Facility: [facility] Address: [address] [place] [address] Result Comment: 40-5 9 mg/dL, Acceptable >59 mg/dL, High: Negative risk factor for coronary heart disease <40 mg/dL, Low: Positive risk factor for coronary heart disease Performed By: #### 2 4331-1, 3016-3 ####[facility] LABCLIA [id number] [place] [id number] [place] Cholesterol in LDL [Mass/Vol] 107 mg/dL High <100 [facility] Comment on above: Order Comment: Speci men Type: BLOOD SPECIMENOrdering Facility: [facility] Address: [address] [place] [address] Result Comment: <100 mg/dL, Optimal 100-129 mg/dL, Near optimal/above optimal 130-159 mg/dL, Borderline high 160-189 mg/dL, High >189 mg/dL, Very high Secondary prevention optimal LDL Cholesterol levels are recommended to be <70 mg/dL LDL cholesterol is calculated using the Lopez-NIH equation. Performed By: #### 2 4331-1, 6-3 ####[facility] LABCLIA [id number] [address] [address] [place] Cholesterol in LDL/Cholesterol in HDL [Mass ratio] 2.33 {ratio} Normal <2.54 [facility] Comment on above: Order Comment: Speci men Type: BLOOD SPECIMENOrdering Facility: [facility] Address: [address] [place] [address] Result Comment: Refe rence: 1. National Cholesterol Education Program ATP III Guideline At-A-Glance Quick Desk Reference: National Heart, Lung, and Blood Converse. National Institutes of Health. 2001: NIH Publication No. 01-3305. 2. An International Atherosclerosis Society position paper: global recommendations for the management of dyslipidemia: executive summary, Atherosclerosis. 2014: 232(2):410-413. Performed By: #### 2 4331-1, 3015-3 ####[facility] LABIA [id number] [address] [address] [place] Cholesterol in VLDL [Mass/Vol] 20 mg/dL Normal <30 [facility] Comment on above: Order Comment: Vondai men Type: BLOOD SPECIMENOrdering Facility: [facility] Address: [address] [place] [address] Performed By: #### 2 4331-1, 3015-3 ####[facility] LABIA [id number] [address] [address] [place] Cholesterol non HDL [Mass/Vol] 129 mg/dL Normal <130 [facility] Comment on above: Order Comment: Vondai romelia Type: BLOOD SPECIMENOrdering Facility: [facility] Address: [address], [place] [address] Result Comment: <130 mg/dL, Optimal 130-159 mg/dL, Near optimal/above optimal 160-189 mg/dL, Borderline high 190-219 mg/dL, High >219 mg/dL, Very high Secondary prevention optimal non HDL Cholesterol levels are recommended to be <100 mg/dL Performed By: #### 2 4331-1, 3015-3 ####[facility] LABCLIA [id number] [facility] [address] [place] [address] [place] Cholesterol.total/C holesterol in HDL [Mass ratio] 3.80 {ratio} Normal <5.10 [facility] Comment on above: Order Comment: Speci men Type: BLOOD SPECIMENOrdering Facility: [facility] Address: [address] [place] [id number] Performed By: #### 2 4331-1, 3 ####[facility] LABCLIA [id number] [facility] [address] [place] [address] [place] FASTING TIME 12 hrs Normal [facility] Comment on above: Order Comment: Speci men Type: BLOOD SPECIMENOrdering Facility: [facility] Address: [address] [place] [id number] Performed By: #### 2 4331-1, 3 ####[facility] LABCLIA [id number] [address] [place] [address] [place] Triglyceride [Mass/Vol] 122 mg/dL Normal <150 [facility] Comment on above: Order Comment: Speci men Type: BLOOD SPECIMENOrdering Facility: [facility] Address: [address] [place] [address] Result Comment: <150 mg/dL, Normal 150-199 mg/dL, Borderline high 200-499 mg/dL, High >499 mg/dL, Very high Performed By: #### 2 4331-1, 3015-3 ####[facility] LABCLIA [id number] [facility] [address] [place] [address] [place] Plastic Surgery Visit Report on 03-02-2025 Plastic Surgery Visit Report [facility] Plastic Reconstructive Surgery [address], [address] [place], [place] [id number] OFFICE VISIT Date of Service: 03/02/25 MR#: [id number] Acct: [id number] Name: SANTOS ALLAN Rep #: [id number] : 1965 Provider: Dr. Denver Casillas MD Age/Sex: 59/F Location: [facility] Status: Signed Intake Vital Signs 12/15/24 08:20 03/02/25 15:30 Height 5 ft 6 in BP 132/85 H 111/80 Blood Pressure Location Lt brachial Rt brachial Position Sitting Sitting Respiration 18 18 Pulse 93 93 Pulse Source Monitor Temp 98.6 F Temp Source Temporal Pulse Oximetry (%) 93 93 Oxygen Delivery Method room air room air Intake Visit Reasons: f/u Chief Complaint: cyst on left index finger post op Is patient in pain?: No Allergies sumatriptan (From Imitrex) Adverse Reaction (Intermediate, Verified 03/02/25 15:29) Other sumatriptan succinate (From Imitrex) Adverse Reaction (Intermediate, Verified 03/02/25 15:29) Other Medications ???Medication ???Instructions ???Recorded ???Confirmed ???Type calcium 600 mg (as 1 tab PO DAILY@0800 06/23/1303/02 History carbonate)-vitamin D3 20 mcg (800 unit) tablet (Caltrate with Vitamin D3) cholecalciferol (vitamin D3) 50 2,000 unit PO DAILY 06/23/1303/02 History mcg (2,000 unit) tablet (Vitamin D3) eletriptan 20 mg tablet (Relpax) 20 mg PO .X1 PRN 06/23/13 03/02/25 History sodium fluoride 1.1 %-potassium 100 ml DT DAILY 06/23/13 03/02/25 History nitrate 5 % dental paste (PreviDent 5000 Sensitive) cevimeline 30 mg capsule (Evoxac) 30 mg PO BID 08/09/23 03/02/25 Hi story hydrochlorothiazide 12.5 mg capsule 12.5 mg PO DAILY 08/09/2303/02 History hydroxychloroquine 200 mg tablet 200 mg PO BID 08/09/23 03/02/25 Hi story (Plaquenil) leflunomide 20 mg tablet 20 mg PO DAILY 08/09/23 03/02/25 H istory levothyroxine 88 mcg tablet 88 mcg PO MOWEFR 08/09/23 03/02/25 History (Synthroid) lisinopril 20 mg tablet 20 mg PO DAILY 08/09/23 03/02/25 H istory metoprolol tartrate 25 mg tablet 12.5 mg PO DAILY 08/09/23 03/02/25 History multivitamin 1 tab PO DAILY 08/09/23 03/02/25 H istory omeprazole 20 mg capsule,delayed 20 mg PO DAILY 08/09/23 03/02/25 H istory release potassium chloride 10 mEq 10 meq PO BID 08/09/23 03/02/25 Hi story tablet,extended release pravastatin 80 mg tablet 80 mg PO QHS 08/09/23 03/02/25 His tory sulfasalazine 500 mg tablet 1 g PO BID 08/09/23 03/02/25 Histo ry cyclobenzaprine 10 mg tablet 10 mg PO BID PRN muscle spasm 09/1503/02/25 History tirzepatide 7.5 mg/0.5 mL 7.5 mg subcut QWEEK 10/12/2403/02 History subcutaneous pen injector (Mounjaro) gabapentin 400 mg capsule 400 mg PO 3XD 11/08/24 03/02/25 Hi story levothyroxine 44 mcg capsule 44 mcg PO SUTUTHSA 11/08/24 History hydrocodone-acetaminophen 5-325mg 0.5 - 1 tab PO QD-BID PRN pain 03/02/25 History 5mg-325mg citalopram 20 mg tablet 30 mg (1.5 x 20 mg) PO DAILY 90 03/02/25 Rx days #135 tabs aripiprazole 2 mg tablet 4 mg (2 x 2 mg) PO DAILY 90 days 0 03/02/25 03/02/25 Rx #180 tabs Subjective Details: Patient is doing well again today. No drainage. Happy with the result no pain Objective Details: LIF No cyst recurrence Some scar No mallet finger or collateral ligament instability Coding Level of Care Code Global Post Op Diagnoses Mucous cyst of finger M67.449 [facility] Medical History Wears glasses Thyroid disease Back pain Injury of head and neck History of hiatal hernia Gastric reflux Sleep apnea History of echocardiogram JINNY (generalized anxiety disorder) Bipolar II disorder Sjogrens syndrome Fibromyalgia Vitamin deficiency Pneumonia Osteoarthritis Neuropathy IBS (irritable bowel syndrome) High triglycerides High cholesterol Hypertension Migraines Gastrointestinal problem Diabetes Carpal tunnel syndrome Bone fracture Back problem Arthritis Anemia Surgical History Hx of removal of cyst Hx of cervical spine surgery H/O gastric sleeve Previous back surgery History of carpal tunnel surgery of left wrist Gastric banding status H/O partial thyroidectomy Hx of arthroscopic knee surgery Hx of tonsillectomy Family History Mother Anxiety Breast cancer Cancer Diabetes Hypertension High cholesterol Psychiatric care Uterine cancer Father Arthritis Diabetes Hypertension High cholesterol Osteoporosis CVA (cerebral vascular accident) Other Colon cancer Depression Mental disorder Social History (Reviewed (more content not included)... Normal [facility] TSH SerPl-aCncon 03-02-2025 TSH Qn 0.378 m[IU]/L Normal 0.270-4.200 [facility] Comment on above: Order Comment: Speci men Type: BLOOD SPECIMENOrdering Facility: [facility] Address: [address] [place] [address] Performed By: #### 2 4331-1, 3016-3 ####[facility] LABCLIA [id number] [place] [address] [place] EMG(NEURO/NI)on 02-09-2025 Results can be seen in attached scanned documents. If you are a patient reviewing this test result, call the doctor who ordered the test with any questions. [facility] BACTERIAL VAGINOSIS NAATon 0 02-08-2025 Lactobacillus crispatus+gasseri+j ensenii + Gardnerella vaginalis + Atopobium vaginae rRNA JUWAN+probe Ql (Vag fld) Not detected Normal Not detected [facility] Comment on above: Order Comment: Speci men Type: SWABOrdering Facility: [facility] Address: [address] [place] [address] Performed By: #### C VTV, BVAMP ####[facility] LABCLIA [id number] [place] [address] [place] JOSEE/TRICHOMONAS NAATon 0 02-08-2025 C. glabrata RNA JUWAN+probe Ql (Vag fld) Not detected Normal Not detected [facility] Comment on above: Order Comment: Speci men Type: SWABOrdering Facility: [facility] Address: [address] [place] [address] Performed By: #### C VTV, BVAMP ####[facility] [id number] [address] [place] Josee sp DNA JUWAN+probe Ql (Vag fld) Not detected Normal Not detected [facility] Comment on above: Order Comment: Speci men Type: SWABOrdering Facility: [facility] Address: [address] [place] [address] Result Comment: The Josee species group target includes C. albicans, C. tropicalis, C. parapsilosis, and C. dubliniensis. Performed By: #### C VTV, BVAMP ####[facility] LABIA [id number] [address] [place] T. vaginalis DNA JUWAN+probe Ql (Unsp spec) Not detected Normal Not detected [facility] Comment on above: Order Comment: Speci men Type: SWABOrdering Facility: [facility] Address: [address] [place] [address] Performed By: #### C VTV, BVAMP ####[facility] LABIA [id number] [place] [address] [place] CNOVon 02-08-2025 CNOV Office Visit (OBGYWM ) SANTOS ALLAN ([id number]) 1965 F Date Time Provider Department 02/08/25 2:45 PM RICHIE NEWMAN During your visit today, we recorded the following information about you: Blood pressure Weight 118/78 82.1 kg Richie Newman APRN.ELECTRONIC CALIBRATION TECHNICIAN 02/08/2025 3:29 PM Signed Santos Allan is a 59 year old female who presents for problem visit to discuss ultrasound results. HPI: Santos had a pelvic ultrasound ordered by PCP for pelvic pain. It showed: Uterus: -Size: 5.8 x 2.8 x 3.5 cm -Orientation: Anteverted -Endometrial echo complex: Evaluation of the endometrium was adequate. Trace amount of free fluid is seen in the imaged upper canal. The endometrial echo complex measured 0.5 cm. -Cervix: Unremarkable. -Adenomyosis assessment: There are no sonographic findings of adenomyosis. -Fibroids: 2 fibroids visualized measuring 2.6 x 2.4 x 2.6 cm (anterior uterine body) and 1.5 x 1.0 x 1.2 cm (posterior uterine body). Right Ovary: Not seen. Left Ovary: Not seen. Free Fluid: Small free fluid is likely physiologic Still has intermittent right lower pain. Sharp. No bleeding. Menopause at age 55. OB History Gravida0 Para0 Term0 Preterm0 AB0 Living0 SAB0 IAB0 Ectopic0 Multiple0 Live Births0 Nursing Unit Manager History LMP: 02/13/2019 (Approximate), Postmenopausal Age at Menar[age] Age at First : Age at Menopause: Nursing Unit Manager History Comments: Sexual Activity: Not Currently; Male Contraception: No contraception data on record [...] Social History Tobacco Use Smoking status: Former Current packs/day: 0.00 Average packs/day: 0.5 packs/day for 20.0 years (10.0 ttl pk-yrs) Types: Cigarettes Start date: 06/14/1983 Quit date: 06/14/2003 Years since quittin.6 Passive exposure: Never Smokeless tobacco: Never Vaping Use Vaping status: Never Used Substance Use Topics Alcohol use: Yes Comment: social Drug use: No Current Outpatient Medications Medication Sig tirzepatide (MOUNJARO) 10 mg/0.5 mL pen injector Inject 10 mg subcutaneously one time a week. potassium chloride (K-TAB) 10 mEq tablet Take 1 tablet by mouth two times a day. sulfaSALAzine (AZULFIDINE) 500 mg tablet Take 1 tablet by mouth twice daily. aripiprazole (ABILIFY) 2 mg tablet Take 1 tablet by mouth twice daily. (Patient taking differently: Take 4 mg by mouth once daily.) phenazopyridine (PYRIDIUM) 100 mg tablet Take 2 tablets by mouth three times a day as needed. (Patient not taking: Reported on 02/08/2025) hydroCHLOROthiazide 12.5 mg capsule Take 1 capsule by mouth once daily. omeprazole (PRILOSEC) 20 mg capsule Take 1 capsule by mouth once daily. levothyroxine (SYNTHROID) 88 mcg tablet Take 1/2 tablet 3 days a week and whole tablet rest of the week. pravastatin (PRAVACHOL) 80 mg tablet Take 1 tablet by mouth once daily. gabapentin (NEURONTIN) 400 mg capsule Take 1 capsule by mouth thr (more content not included)... Normal [facility] HIGH RISK HUMAN PAPILLOMA LUIGI (HPV), PCR FOR DETECTION AND GENOTYPINGon 02-08-2025 HPV 16 Ag Ql (Unsp spec) Not detected Normal Not detected [facility] Comment on above: Order Comment: Speci men Type: FLUID SPECIMENOrdering Facility: [facility] Address: [address] [place] [address] Performed By: #### H PVHRT ####[facility] [id number] [place] [address] [place] HPV 18 Ag Ql (Unsp spec) Not detected Normal Not detected [facility] Comment on above: Order Comment: Speci men Type: FLUID SPECIMENOrdering Facility: [facility] Address: [address] [place] [address] Performed By: #### H PVHRT ####[facility] [id number] [place] [address] [place] HPV 31+33+35+39+45+51+5 2+56+58+59+66+68 DNA JUWAN+probe Ql (Cvx) Not detected Normal Not detected [facility] Comment on above: Order Comment: Speci men Type: FLUID SPECIMENOrdering Facility: [facility] Address: [address] [place] [address] Result Comment: High Risk HPV Other Type includes HPV types 31, 33, 35, 39, 45, 51, 52, 56, 58, 59, 66 and 68. Performed By: #### H PVHRT ####[facility] LABCLIA [id number] [address] [place] [address] [place] PAP TESTon 02-08-2025 ADEQUACY Normal [facility] Comment on above: Order Comment: Speci men Type: FLUID SPECIMENOrdering Facility: [facility] Address: [address] [place], [place] [address] Result Comment: Sati sfactory for interpretation. No endocervical component Performed By: #### L [id number] ####[facility] LABCLIA [id number] [address] [place] [address] [place] CASE REPORT Normal [facility] Comment on above: Order Comment: Speci men Type: FLUID SPECIMENOrdering Facility: [facility] Address: [address] [place] [address] Result Comment: Gyne cologic Cytology Report Case: [id number] Authorizing Provider: Richie Newman APRN.ELECTRONIC CALIBRATION TECHNICIAN Collected: 02/08/2025 03:47 PM Ordering Location: OB/Gynecology Received: 02/08/2025 04:53 PM First Screen: Andrew Richardson, DWAYNE, ASCP Specimen: Pap Test, ThinPrep, Cervix Performed By: #### L [id number] ####[facility] LABCLIA [id number] [address] [place] [address] [place] CLINICAL HISTORY, CYTOLOGY, RUGBY LEAGUE FOOTBALLER Post Menopausal Normal [facility] Comment on above: Order Comment: Speci men Type: FLUID SPECIMENOrdering Facility: [facility] Address: [address] [place], [place] [address] Performed By: #### L [id number] ####[facility] LABCLIA [id number] [address] [place] [address] [place] FINAL PERFORMING LAB Normal [facility] Comment on above: Order Comment: Speci men Type: FLUID SPECIMENOrdering Facility: [facility] Address: [address] [place] [address] Result Comment: Tech nical component, construction project assistant screening performed at: [facility], [address] [place], [place] [address] CLIA: [id number] Diagnostic interpretation performed at: [facility], [address] [place], [place] [address] CLIA# [id number] Tool And Die Maker Apprentice: Justus Pena MD Performed By: #### L [id number] ####[facility] LABCLIA [id number] [place] [id number] [place] INTERPRETATION, CYTOLOGY, RUGBY LEAGUE FOOTBALLER Normal [facility] Comment on above: Order Comment: Speci men Type: FLUID SPECIMENOrdering Facility: [facility] Address: [address] [place] [address] Result Comment: Nega tive for intraepithelial lesion or malignancy. at 1117 EDT Performed By: #### L [id number] ####[facility] LABIA [id number] [address] [place] PAP DISCLAIMER COMMENT The Pap Smear is a screening test for cervical cancer. False negative results occur with all screening tests, emphasizing the need for rescreening at recommended intervals, and clinical correlation. Normal [facility] Comment on above: Order Comment: Speci men Type: FLUID SPECIMENOrdering Facility: [facility] Address: [address] [place] [address] Performed By: #### L [id number] ####[facility] LABCLIA [id number] [place] [id number] [place] PAP CONSOLIDATOR COMMENT This specimen has be en analyzed by the FDA-approved Sample6 System, which uses digital imaging and an enhanced artificial intelligence image analysis algorithm to identify rinaldi of interest on the microscopic slide, to assist the precision machine operator and pathologist in evaluating cells on ThinPrep Pap tests. Following analysis, rinaldi of interest on the microscopic slide selected by the algorithm are reviewed by a precision machine operator. If a sample requires hierarchical review, the pathologist will review the same rinaldi of interest selected by the algorithm prior to final interpretation. Normal [facility] Comment on above: Order Comment: Speci men Type: FLUID SPECIMENOrdering Facility: [facility] Address: [address] [place] [address] Performed By: #### L [id number] ####[facility] LABCLIA [id number] [place] [address] [place] No Panel Informationon 02-06 IMPRESSION: Uterine fibroids. Ovaries not identified. Ceramic Saw Tender: SKYLER Transcribe Date/Time: Feb 06 2025 1:45P Dictated by : ANAND LARA MD This examination was interpreted and the report reviewed and electronically signed by: ANAND LARA MD on Feb 06 2025 1:50PM [facility] DIVISION OF RADIOLOGY Radiology Study observation (narrative) [facility] No Panel InformationOrdered By: Ccf Provider on 02-06-2025 [facility] US FEMALE PELVIS TRANSABD LT Don 02-06-2025 US FEMALE PELVIS TRANSABD LTD * * *Final Report* * * DATE OF EXAM: Feb 06 2025 10:31AM [id number] [id number] - US FEMALE PELVIS TRANSABD LTD / PROCEDURE REASON: multiple diagnoses * * * * Physician Interpretation * * * * EXAMINATION: TRANSVAGINAL AND LIMITED TRANSABDOMINAL FEMALE PELVIC ULTRASOUND CLINICAL HISTORY: Uterine fibroid. TECHNIQUE: Sonography of the pelvis was performed by transvaginal and transabdominal (limited) techniques. Images were obtained and stored in a permanent archive. MQ: [facility]_2021 COMPARISON: CT abdomen pelvis on 01/26/2025 RESULT: Uterus: -Size: 5.8 x 2.8 x 3.5 cm -Orientation: Anteverted -Endometrial echo complex: Evaluation of the endometrium was adequate. Trace amount of free fluid is seen in the imaged upper canal. The endometrial echo complex measured 0.5 cm. -Cervix: Unremarkable. -Adenomyosis assessment: There are no sonographic findings of adenomyosis. -Fibroids: 2 fibroids visualized measuring 2.6 x 2.4 x 2.6 cm (anterior uterine body) and 1.5 x 1.0 x 1.2 cm (posterior uterine body). Right Ovary: Not seen. Left Ovary: Not seen. Free Fluid: Small free fluid is likely physiologic. IMPRESSION: Uterine fibroids. Ovaries not identified. Ceramic Saw Tender: [employer] Transcribe Date/Time: Feb 06 2025 1:45P Dictated by : ANAND LARA MD This examination was interpreted and the report reviewed and electronically signed by: ANAND LARA MD on Feb 06 2025 1:50PM EST [id number] Normal [facility] US FEMALE PELVIS TRANSVAGon 02-06-2025 US FEMALE PELVIS TRANSVAG * * *Final Report* * * DATE OF EXAM: Feb 06 2025 10:31AM WRU 1060 - US FEMALE PELVIS TRANSVAG / PROCEDURE REASON: multiple diagnoses * * * * Physician Interpretation * * * * EXAMINATION: TRANSVAGINAL AND LIMITED TRANSABDOMINAL FEMALE PELVIC ULTRASOUND CLINICAL HISTORY: Uterine fibroid. TECHNIQUE: Sonography of the pelvis was performed by transvaginal and transabdominal (limited) techniques. Images were obtained and stored in a permanent archive. MQ: [facility]_2021 COMPARISON: CT abdomen pelvis on 01/26/2025 RESULT: Uterus: -Size: 5.8 x 2.8 x 3.5 cm -Orientation: Anteverted -Endometrial echo complex: Evaluation of the endometrium was adequate. Trace amount of free fluid is seen in the imaged upper canal. The endometrial echo complex measured 0.5 cm. -Cervix: Unremarkable. -Adenomyosis assessment: There are no sonographic findings of adenomyosis. -Fibroids: 2 fibroids visualized measuring 2.6 x 2.4 x 2.6 cm (anterior uterine body) and 1.5 x 1.0 x 1.2 cm (posterior uterine body). Right Ovary: Not seen. Left Ovary: Not seen. Free Fluid: Small free fluid is likely physiologic. IMPRESSION: Uterine fibroids. Ovaries not identified. Ceramic Saw Tender: Write.my Transcribe Date/Time: Feb 06 2025 1:45P Dictated by : ANAND LARA MD This examination was interpreted and the report reviewed and electronically signed by: ANAND LARA MD on Feb 06 2025 1:50PM EST [id number] Normal [facility] US Pelvis limitedon 02-07-20 * * *Final Report* * * DATE OF EXAM: Feb 06 2025 10:31AM WRU [id number] - US FEMALE PELVIS TRANSABD LTD / PROCEDURE REASON: multiple diagnoses * * * * Physician Interpretation * * * * EXAMINATION: TRANSVAGINAL AND LIMITED TRANSABDOMINAL FEMALE PELVIC ULTRASOUND CLINICAL HISTORY: Uterine fibroid. TECHNIQUE: Sonography of the pelvis was performed by transvaginal and transabdominal (limited) techniques. Images were obtained and stored in a permanent archive. MQ: [facility]_2021 COMPARISON: CT abdomen pelvis on 01/26/2025 RESULT: Uterus: -Size: 5.8 x 2.8 x 3.5 cm -Orientation: Anteverted -Endometrial echo complex: Evaluation of the endometrium was adequate. Trace amount of free fluid is seen in the imaged upper canal. The endometrial echo complex measured 0.5 cm. -Cervix: Unremarkable. -Adenomyosis assessment: There are no sonographic findings of adenomyosis. -Fibroids: 2 fibroids visualized measuring 2.6 x 2.4 x 2.6 cm (anterior uterine body) and 1.5 x 1.0 x 1.2 cm (posterior uterine body). Right Ovary: Not seen. Left Ovary: Not seen. Free Fluid: Small free fluid is likely physiologic. DIVISION OF RADIOLOGY Provider, [facility] - 02/06/2025 * * *Final Report* * * DATE OF EXAM: Feb 06 2025 10:31AM U 1059 - US FEMALE PELVIS [employer] / PROCEDURE REASON: multiple diagnoses * * * * Physician Interpretation * * * * EXAMINATION: TRANSVAGINAL AND LIMITED TRANSABDOMINAL FEMALE PELVIC ULTRASOUND CLINICAL HISTORY: Uterine fibroid. TECHNIQUE: Sonography of the pelvis was performed by transvaginal and transabdominal (limited) techniques. Images were obtained and stored in a permanent archive. MQ: [facility]_2021 COMPARISON: CT abdomen pelvis on 01/26/2025 RESULT: Uterus: -Size: 5.8 x 2.8 x 3.5 cm -Orientation: Anteverted -Endometrial echo complex: Evaluation of the endometrium was adequate. Trace amount of free fluid is seen in the imaged upper canal. The endometrial echo complex measured 0.5 cm. -Cervix: Unremarkable. -Adenomyosis assessment: There are no sonographic findings of adenomyosis. -Fibroids: 2 fibroids visualized measuring 2.6 x 2.4 x 2.6 cm (anterior uterine body) and 1.5 x 1.0 x 1.2 cm (posterior uterine body). Right Ovary: Not seen. Left Ovary: Not seen. Free Fluid: Small free fluid is likely physiologic. IMPRESSION IMPRESSION: Uterine fibroids. Ovaries not identified. Ceramic Saw Tender: SKYLER Transcribe Date/Time: Feb 06 2025 1:45P Dictated by : ANAND LARA MD This examination was interpreted and the report reviewed and electronically signed by: ANAND LARA MD on Feb 06 2025 1:50PM [facility] US Pelvis transvaginalon * * *Final Report* * * DATE OF EXAM: Feb 06 2025 10:31AM WRU 1060 - US FEMALE PELVIS TRANSVAG / PROCEDURE REASON: multiple diagnoses * * * * Physician Interpretation * * * * EXAMINATION: TRANSVAGINAL AND LIMITED TRANSABDOMINAL FEMALE PELVIC ULTRASOUND CLINICAL HISTORY: Uterine fibroid. TECHNIQUE: Sonography of the pelvis was performed by transvaginal and transabdominal (limited) techniques. Images were obtained and stored in a permanent archive. MQ: [facility]_2021 COMPARISON: CT abdomen pelvis on 01/26/2025 RESULT: Uterus: -Size: 5.8 x 2.8 x 3.5 cm -Orientation: Anteverted -Endometrial echo complex: Evaluation of the endometrium was adequate. Trace amount of free fluid is seen in the imaged upper canal. The endometrial echo complex measured 0.5 cm. -Cervix: Unremarkable. -Adenomyosis assessment: There are no sonographic findings of adenomyosis. -Fibroids: 2 fibroids visualized measuring 2.6 x 2.4 x 2.6 cm (anterior uterine body) and 1.5 x 1.0 x 1.2 cm (posterior uterine body). Right Ovary: Not seen. Left Ovary: Not seen. Free Fluid: Small free fluid is likely physiologic. DIVISION OF RADIOLOGY Provider, [facility] - 02/06/2025 * * *Final Report* * * DATE OF EXAM: Feb 06 2025 10:31AM WRU 1060 - US FEMALE PELVIS TRANSVAG / PROCEDURE REASON: multiple diagnoses * * * * Physician Interpretation * * * * EXAMINATION: TRANSVAGINAL AND LIMITED TRANSABDOMINAL FEMALE PELVIC ULTRASOUND CLINICAL HISTORY: Uterine fibroid. TECHNIQUE: Sonography of the pelvis was performed by transvaginal and transabdominal (limited) techniques. Images were obtained and stored in a permanent archive. MQ: [facility]_2021 COMPARISON: CT abdomen pelvis on 01/26/2025 RESULT: Uterus: -Size: 5.8 x 2.8 x 3.5 cm -Orientation: Anteverted -Endometrial echo complex: Evaluation of the endometrium was adequate. Trace amount of free fluid is seen in the imaged upper canal. The endometrial echo complex measured 0.5 cm. -Cervix: Unremarkable. -Adenomyosis assessment: There are no sonographic findings of adenomyosis. -Fibroids: 2 fibroids visualized measuring 2.6 x 2.4 x 2.6 cm (anterior uterine body) and 1.5 x 1.0 x 1.2 cm (posterior uterine body). Right Ovary: Not seen. Left Ovary: Not seen. Free Fluid: Small free fluid is likely physiologic. IMPRESSION IMPRESSION: Uterine fibroids. Ovaries not identified. Ceramic Saw Tender: [facility] Transcribe Date/Time: Feb 06 2025 1:45P Dictated by : ANAND LARA MD This examination was interpreted and the report reviewed and electronically signed by: ANAND LARA MD on Feb 06 2025 1:50PM [facility] CT ABD/PEL W IVCONon -16-[address] ABD/PEL W IVCON * * *Final Report* * * DATE OF EXAM: Jan 26 2025 8:12AM [facility] 0530 - CT ABD/PEL W IVCON / PROCEDURE REASON: Right lower quadrant abdominal pain * * * * Physician Interpretation * * * * EXAMINATION: CT ABDOMEN AND PELVIS WITH IV CONTRAST CLINICAL HISTORY: Right lower quadrant pain TECHNIQUE: CT of the abdomen and pelvis was performed using standard technique, scanning from just above the dome of the diaphragm to the symphysis pubis. MQ: CTAP_3 Contrast: IV: 100 ml of Omnipaque 350 Oral: 425 ml of Omni 240 10-25ml diluted with water CT Radiation dose: Integrated Dose-length product (DLP) for this visit = 891.68 mGy*cm. CT Dose Reduction Employed: Automated exposure control(AEC) and iterative recon COMPARISON: CT abdomen and pelvis 02/23/2014 RESULT: Liver: No mass. Biliary: No bile duct dilation. Gallbladder is unremarkable. Spleen: No mass. No splenomegaly. Pancreas: No mass or duct dilation. Adrenals: No mass. Kidneys: No mass, calculus or hydronephrosis. GI tract: Postoperative changes of gastric sleeve. Tiny hiatal hernia. No dilated or thickened bowel. Normal appendix. Lymph nodes: No abdominal or pelvic lymphadenopathy. Mesentery/Peritoneum: No ascites or mass. Retroperitoneum: No mass. Vasculature: - Abdominal aorta and iliac arteries: Atherosclerotic calcifications without aneurysm. - Celiac and SMA: Patent without stenosis. - Portal venous system (SMV, splenic vein, portal vein and branches): Patent. - Hepatic veins: Patent. Pelvis: 3.0 cm suspected fibroid along the anterior uterine body. Fluid-filled vagina. No free fluid. Nonspecific mild bladder wall thickening. Bones/Soft Tissues: Degenerative changes worst at L5-S1 Lower thorax: Bibasilar atelectasis and/or scarring. Localizer images: No additional findings. IMPRESSION: Nonspecific mild bladder wall thickening. Correlate with urinalysis. Suspected 3.0 cm uterine body fibroid. Additionally the vagina is fluid-filled. Findings can be further evaluated with pelvic ultrasound. ACTIONABLE RESULT: FOLLOW-UP Acuity: Actionable Findings: Female reproductive tract (pelvis, adnexa) Routing code: WH_1 Recommendation: US FEMALE PELVIS NON-OB NON TORSION ([id number]) Time Frame: as soon as possible, when the patient's clinical state allows. COMMUNICATION: Results will be communicated with the ordering provider via [employer] staff message or phone message by [employer] within 2 business days of report finalization. --END OF FINDING-- Ceramic Saw Tender: SKYLER Transcribe Date/Time: Jan 26 2025 8:25A Dictated by : IZA JOSEPH MD This examination was interpreted and the report reviewed and electronically signed by: IZA JOSEPH MD on Jan 26 2025 8:36AM EST [id number] ACTIONABLE Invalid Interpretation Code [facility] CT Abdomen and Pelvis W cont rast IVOrdered By: [facility] Provider on 01-26-2025 Interpretation and review of laboratory results Abnormal [facility] Radiology Result ACTIONABLE Abnormal [place] Comment on above: This report contains an incidental or actionable finding. This finding may be a new finding separate from the reason your provider ordered the imaging test or it may be an already known finding that needs additional or continued follow-up. Because of this incidental or actionable finding, you may need another test (imaging or a different type of test). Please contact your provider for the next steps. [facility] CT Abdomen and Pelvis W cont rast Marie 01-26-2025 IMPRESSION: Nonspecific mild bladder wall thickening. Correlate with urinalysis. Suspected 3.0 cm uterine body fibroid. Additionally the vagina is fluid-filled. Findings can be further evaluated with pelvic ultrasound. ACTIONABLE RESULT: FOLLOW-UP Acuity: Actionable Findings: Female reproductive tract (pelvis, adnexa) Routing code: WH_1 Recommendation: US FEMALE PELVIS NON-OB NON TORSION ([id number]) Time Frame: as soon as possible, when the patient's clinical state allows. COMMUNICATION: Results will be communicated with the ordering provider via [employer] staff message or phone message by [employer] within 2 business days of report finalization. --END OF FINDING-- Ceramic Saw Tender: SKYLER Transcribe Date/Time: Jan 26 2025 8:25A Dictated by : IZA JOSEPH MD This examination was interpreted and the report reviewed and electronically signed by: IZA JOSEPH MD on Jan 26 2025 8:36AM [facility] RADIOLOGY SYNGO * * *Final Report* * * DATE OF EXAM: Jan 26 2025 8:12AM [facility] 0530 - CT ABD/PEL W IVCON / PROCEDURE REASON: Right lower quadrant abdominal pain * * * * Physician Interpretation * * * * EXAMINATION: CT ABDOMEN AND PELVIS WITH IV CONTRAST CLINICAL HISTORY: Right lower quadrant pain TECHNIQUE: CT of the abdomen and pelvis was performed using standard technique, scanning from just above the dome of the diaphragm to the symphysis pubis. MQ: CTAP_3 Contrast: IV: 100 ml of Omnipaque 350 Oral: 425 ml of Omni 240 10-25ml diluted with water CT Radiation dose: Integrated Dose-length product (DLP) for this visit = 891.68 mGy*cm. CT Dose Reduction Employed: Automated exposure control(AEC) and iterative recon COMPARISON: CT abdomen and pelvis 02/23/2014 RESULT: Liver: No mass. Biliary: No bile duct dilation. Gallbladder is unremarkable. Spleen: No mass. No splenomegaly. Pancreas: No mass or duct dilation. Adrenals: No mass. Kidneys: No mass, calculus or hydronephrosis. GI tract: Postoperative changes of gastric sleeve. Tiny hiatal hernia. No dilated or thickened bowel. Normal appendix. Lymph nodes: No abdominal or pelvic lymphadenopathy. Mesentery/Peritoneum: No ascites or mass. Retroperitoneum: No mass. Vasculature: - Abdominal aorta and iliac arteries: Atherosclerotic calcifications without aneurysm. - Celiac and SMA: Patent without stenosis. - Portal venous system (SMV, splenic vein, portal vein and branches): Patent. - Hepatic veins: Patent. Pelvis: 3.0 cm suspected fibroid along the anterior uterine body. Fluid-filled vagina. No free fluid. Nonspecific mild bladder wall thickening. Bones/Soft Tissues: Degenerative changes worst at L5-S1 Lower thorax: Bibasilar atelectasis and/or scarring. Localizer images: No additional findings. [employer] RADIOLOGY SYNGO Provider, [facility] - 01/26/2025 * * *Final Report* * * DATE OF EXAM: Jan 26 2025 8:12AM [facility] 0530 - CT ABD/PEL W IVCON / PROCEDURE REASON: Right lower quadrant abdominal pain * * * * Physician Interpretation * * * * EXAMINATION: CT ABDOMEN AND PELVIS WITH IV CONTRAST CLINICAL HISTORY: Right lower quadrant pain TECHNIQUE: CT of the abdomen and pelvis was performed using standard technique, scanning from just above the dome of the diaphragm to the symphysis pubis. MQ: CTAP_3 Contrast: IV: 100 ml of Omnipaque 350 Oral: 425 ml of Omni 240 10-25ml diluted with water CT Radiation dose: Integrated Dose-length product (DLP) for this visit = 891.68 mGy*cm. CT Dose Reduction Employed: Automated exposure control(AEC) and iterative recon COMPARISON: CT abdomen and pelvis 02/23/2014 RESULT: Liver: No mass. Biliary: No bile duct dilation. Gallbladder is unremarkable. Spleen: No mass. No splenomegaly. Pancreas: No mass or duct dilation. Adrenals: No mass. Kidneys: No mass, calculus or hydronephrosis. GI tract: Postoperative changes of gastric sleeve. Tiny hiatal hernia. No dilated or thickened bowel. Normal appendix. Lymph nodes: No abdominal or pelvic lymphadenopathy. Mesentery/Peritoneum: No ascites or mass. Retroperitoneum: No mass. Vasculature: - Abdominal aorta and iliac arteries: Atherosclerotic calcifications without aneurysm. - Celiac and SMA: Patent without stenosis. - Portal venous system (SMV, splenic vein, portal vein and branches): Patent. - Hepatic veins: Patent. Pelvis: 3.0 cm suspected fibroid along the anterior uterine body. Fluid-filled vagina. No free fluid. Nonspecific mild bladder wall thickening. Bones/Soft Tissues: Degenerative changes worst at L5-S1 Lower thorax: Bibasilar atelectasis and/or scarring. Localizer images: No additional findings. IMPRESSION IMPRESSION: Nonspecific mild bladder wall thickening. Correlate with urinalysis. Suspected 3.0 cm uterine body fibroid. Additionally the vagina is fluid-filled. Findings can be further evaluated with pelvic ultrasound. ACTIONABLE RESULT: FOLLOW-UP Acuity: Actionable Findings: Female reproductive tract (pelvis, adnexa) Routing code: WH_1 Recommendation: US FEMALE PELVIS NON-OB NON TORSION ([id number]) Time Frame: as soon as possible, when the patient's clinical state allows. COMMUNICATION: Results will be communicated with the ordering provider via [employer] staff message or phone message by [employer] within 2 business days of report finalization. 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 2 mg/dL [facility] Chloride [Moles/Vol] 100 mmol/L 98 - 107 mmol/L [facility] CO2 [Moles/Vol] 28 mmol/L 22 - 30 mmol/L [facility] Creatinine [Mass/Vol] 0.52 mg/dL Low 0.58 - 0.96 mg/dL [facility] GFR/1.73 sq M.predicted among non-blacks MDRD (S/P/Bld) [Vol rate/Area] 109 mL/min/{1.73_m2} - PINF [facility] Comment on above: Estimated Glomerular Filtration Rate (eGFR) is calculated using the 2020 CKD-EPI creatinine equation. This equation utilizes serum creatinine, sex, and age as parameters. The creatinine assay has traceable calibration to isotope dilution-mass spectrometry. Refer to KDIGO guidelines for clinical interpretation. In patients with unstable renal function, e.g. those with acute kidney injury, the eGFR may not accurately reflect actual GFR. Glucose [Mass/Vol] 97 mg/dL 74 - 99 mg/dL [facility] Comment on above: The [place] Diab[employer] s Association (ADA) provides guidance for cutoff values for fasting glucose and random glucose. The ADA defines fasting as no caloric intake for at least 8 hours. Fasting plasma glucose results between 100 to 125 mg/dL indicate increased risk for diabetes (prediabetes). Fasting plasma glucose results greater than or equal to 126 mg/dL meet the criteria for diagnosis of diabetes. In the absence of unequivocal hyperglycemia, results should be confirmed by repeat testing. In a patient with classic symptoms of hyperglycemia or hyperglycemic crisis, random plasma glucose results greater than or equal to 200 mg/dL meet the criteria for diagnosis of diabetes. Reference: Standards of Medical Care in Diabetes 2016, [place] Diabetes Association. Diabetes Care. 2016.39(Suppl 1). Interpretation and review of laboratory results Abnormal [facility] Potassium [Moles/Vol] 3.6 mmol/L Low 3.7 - 5.1 mmol/L [facility] Sodium [Moles/Vol] 141 mmol/L 136 - 144 mmol/L [facility] Urea nitrogen [Mass/Vol] 5 mg/dL Low 7 - 21 mg/dL [facility] Basic metabolic 2000 panelon 01-25-2025 Anion gap [Moles/Vol] 13 mmol/L Normal 8-15 [facility] Comment on above: Order Comment: Speci men Type: BLOOD SPECIMENOrdering Facility: [facility] Address: [facility] [place] [address] Performed By: #### 2 4321-2 ####[facility] CENTERDl [id number] [place] [address] [place] Calcium [Mass/Vol] 9.7 mg/dL Normal 8.5-10.2 [facility] Comment on above: Order Comment: Speci men Type: BLOOD SPECIMENOrdering Facility: [facility] Address: [address] [place] [address] Performed By: #### 2 4321-2 ####[facility] [id number] [place] [address] [place] Chloride [Moles/Vol] 100 mmol/L Normal 98-107 [facility] Comment on above: Order Comment: Speci men Type: BLOOD SPECIMENOrdering Facility: [facility] Address: [address] [place] [address] Performed By: #### 2 4321-2 ####[facility] [id number] [place] [address] [place] CO2 [Moles/Vol] 28 mmol/L Normal 22-30 [facility] Comment on above: Order Comment: Speci men Type: BLOOD SPECIMENOrdering Facility: [facility] Address: [address] [place] [address] Performed By: #### 2 4321-2 ####[facility] [id number] [place] [address] [place] Creatinine [Mass/Vol] 0.52 mg/dL Low 0.58-0.96 [facility] Comment on above: Order Comment: Speci men Type: BLOOD SPECIMENOrdering Facility: [facility] Address: [address] [place] [address] Performed By: #### 2 4321-2 ####[facility] [id number] [place] [address] [place] Creatinine and Glomerular filtration rate.predicted panel (S/P/Bld) 109 mL/min/1.73m??? Normal >=60 [facility] Comment on above: Order Comment: Speci men Type: BLOOD SPECIMENOrdering Facility: [facility] Address: [address] [place] [address] Result Comment: Marilee mated Glomerular Filtration Rate (eGFR) is calculated using the 2020 CKD-EPI creatinine equation. This equation utilizes serum creatinine, sex, and age as parameters. The creatinine assay has traceable calibration to isotope dilution-mass spectrometry. Refer to KDIGO guidelines for clinical interpretation. In patients with unstable renal function, e.g. those with acute kidney injury, the eGFR may not accurately reflect actual GFR. Performed By: #### 2 4321-2 ####[facility] [id number] [place] [address] [place] Glucose [Mass/Vol] 97 mg/dL Normal 74-99 [facility] Comment on above: Order Comment: Sg lenó Type: BLOOD SPECIMENOrdering Facility: [facility] Address: [address] [place] [address] Result Comment: The [place] Diabetes Association (ADA) provides guidance for cutoff values for fasting glucose and random glucose. The ADA defines fasting as no caloric intake for at least 8 hours. Fasting plasma glucose results between 100 to 125 mg/dL indicate increased risk for diabetes (prediabetes). Fasting plasma glucose results greater than or equal to 126 mg/dL meet the criteria for diagnosis of diabetes. In the absence of unequivocal hyperglycemia, results should be confirmed by repeat testing. In a patient with classic symptoms of hyperglycemia or hyperglycemic crisis, random plasma glucose results greater than or equal to 200 mg/dL meet the criteria for diagnosis of diabetes. Reference: Standards of Medical Care in Diabetes 2016, [place] Diabetes Association. Diabetes Care. 2016.39(Suppl 1). Performed By: #### 2 4321-2 ####[facility] [id number] [place] [address] [place] Potassium [Moles/Vol] 3.6 mmol/L Low 3.7-5.1 [facility] Comment on above: Order Comment: Sg león Type: BLOOD SPECIMENOrdering Facility: [facility] Address: [address] [place] [address] Performed By: #### 2 4321-2 ####[facility] [id number] [place] [address] [place] Sodium [Moles/Vol] 141 mmol/L Normal 136-144 [facility] Comment on above: Order Comment: Speci men Type: BLOOD SPECIMENOrdering Facility: [facility] Address: [address] [place] [address] Performed By: #### 2 4321-2 ####[facility] [id number] [address] [place] Urea nitrogen [Mass/Vol] 5 mg/dL Low 7-21 [facility] Comment on above: Order Comment: Speci men Type: BLOOD SPECIMENOrdering Facility: [facility] Address: [address] [place] [address] Performed By: #### 2 4321-2 ####[facility] [id number] [place] [address] [place] CBC W Auto Differential pane l (Bld)on 01-25-2025 Basophils (Bld) [#/Vol] 0.05 10*3/uL [facility] Basophils/100 WBC (Bld) 0.5 % [facility] Differential cell count method Nom (Bld) Auto [facility] Eosinophils (Bld) [#/Vol] [facility] Eosinophils/100 WBC (Bld) 0 % [facility] Erythrocyte distribution width (RBC) [Ratio] 12.6 % 11.5 - 15.0 % [facility] Hematocrit (Bld) [Volume fraction] 40.5 % 36.0 - 46.0 % [facility] Hemoglobin (Bld) [Mass/Vol] 13.3 g/dL 11.5 - 15.5 g/dL [facility] Immature granulocytes (Bld) [#/Vol] 0.18 10*3/uL High NINF [facility] Immature granulocytes/100 WBC (Bld) 2 % [facility] Interpretation and review of laboratory results Abnormal [facility] Lymphocytes (Bld) [#/Vol] 1.9 10*3/uL [facility] Lymphocytes/100 WBC (Bld) 20.8 % [facility] MCH (RBC) [Entitic mass] 29.8 pg 26.0 - 34.0 pg [facility] MCHC (RBC) [Mass/Vol] 32.8 g/dL 30.5 - 36.0 g/dL [facility] MCV (RBC) [Entitic vol] 90.8 fL 80.0 - 100.0 fL [facility] Monocytes (Bld) [#/Vol] 0.5 10*3/uL [facility] Monocytes/100 WBC (Bld) 5.5 % [facility] Neutrophils (Bld) [#/Vol] 6.49 10*3/uL [facility] Neutrophils/100 WBC (Bld) 71.2 % [facility] Nucleated RBC (Bld) [#/Vol] NINF [facility] Nucleated RBC/100 WBC (Bld) [Ratio] 0 % /100 WBC [facility] Platelet mean volume (Bld) [Entitic vol] 9.5 fL 9.0 - 12.7 fL [facility] Platelets (Bld) [#/Vol] 373 10*3/uL [facility] RBC (Bld) [#/Vol] 4.46 10*6/uL 3.90 - 5.2 0 m/uL [facility] WBC (Bld) [#/Vol] 9.12 10*3/uL [facility] Basophils (Bld) [#/Vol] 0.05 10*3/uL Normal <0.11 [facility] Comment on above: Order Comment: Speci men Type: BLOOD SPECIMENOrdering Facility: [facility] Address: [address] [place] [address] Performed By: #### 5 7021-8 ####[facility] [id number] [address] [place] [facility] Basophils/100 WBC (Bld) 0.5 % Normal [facility] Comment on above: Order Comment: Speci men Type: BLOOD SPECIMENOrdering Facility: [facility] Address: [address] [place] [address] Performed By: #### 5 7021-8 ####[facility] [id number] [place] [address] [place] Differential cell count method Nom (Bld) Auto Normal [facility] Comment on above: Order Comment: Speci men Type: BLOOD SPECIMENOrdering Facility: [facility] Address: [address] [place] [address] Performed By: #### 5 7021-8 ####[facility] [id number] [place] [address] [place] Eosinophils (Bld) [#/Vol] 10*3/uL Normal <0.46 [facility] Comment on above: Order Comment: Speci men Type: BLOOD SPECIMENOrdering Facility: [facility] Address: [address] [place] [address] Performed By: #### 5 7021-8 ####[facility] [id number] [place] [address] [place] IBETH Eosinophils/100 WBC (Bld) 0.0 % Normal [facility] Comment on above: Order Comment: Speci men Type: BLOOD SPECIMENOrdering Facility: [facility] Address: [address] [place] [address] Performed By: #### 5 7021-8 ####[facility] [id number] [place] [address] [place] Erythrocyte distribution width (RBC) [Ratio] 12.6 % Normal 11.5-15.0 [facility] Comment on above: Order Comment: Speci men Type: BLOOD SPECIMENOrdering Facility: [facility] Address: [address] [place] [address] Performed By: #### 5 7021-8 ####[facility] [id number] [place] [address] [place] Hematocrit (Bld) [Volume fraction] 40.5 % Normal 36.0-46.0 [facility] Comment on above: Order Comment: Speci men Type: BLOOD SPECIMENOrdering Facility: [facility] Address: [address] [place] [address] Performed By: #### 5 7021-8 ####[facility]ENTERGERRY [id number] [place] [address] [place] Hemoglobin (Bld) [Mass/Vol] 13.3 g/dL Normal 11.5-15.5 [facility] Comment on above: Order Comment: Speci men Type: BLOOD SPECIMENOrdering Facility: [facility] Address: [address] [place] [address] Performed By: #### 5 7021-8 ####[facility]ENTERNCTIMPANOGOS [facility] [id number] [place] [address] [place] Immature granulocytes (Bld) [#/Vol] 0.18 10*3/uL High <0.10 [facility] Comment on above: Order Comment: Speci men Type: BLOOD SPECIMENOrdering Facility: [facility] Address: [address] [place] [address] Performed By: #### 5 7021-8 ####[facility] [id number] [place] [address] [place] Immature granulocytes/100 WBC (Bld) 2.0 % Normal [facility] Comment on above: Order Comment: Speci men Type: BLOOD SPECIMENOrdering Facility: [facility] Address: [address] [place] [address] Performed By: #### 5 7021-8 ####[facility]ENTERNCLIA [id number] [place] [address] [place] Lymphocytes (Bld) [#/Vol] 1.90 10*3/uL Normal 1.00-4.00 [facility] Comment on above: Order Comment: Speci men Type: BLOOD SPECIMENOrdering Facility: [facility] Address: [address] [place] [address] Performed By: #### 5 7021-8 ####[facility] DORALWBALDEVLIA [id number] [place] [address] [place] Lymphocytes/100 WBC (Bld) 20.8 % Normal [facility] Comment on above: Order Comment: Speci men Type: BLOOD SPECIMENOrdering Facility: [facility] Address: [address] [place] [address] Performed By: #### 5 7021-8 ####[facility]ENTERBALDEVLIA [id number] [place] [address] [place] MCH (RBC) [Entitic mass] 29.8 pg Normal 26.0-34.0 [facility] Comment on above: Order Comment: Speci men Type: BLOOD SPECIMENOrdering Facility: [facility] Address: [address] [place] [address] Performed By: #### 5 7021-8 ####[facility] CENTERREINAA [id number] [place] [address] [place] MCHC (RBC) [Mass/Vol] 32.8 g/dL Normal 30.5-36.0 [facility] Comment on above: Order Comment: Speci men Type: BLOOD SPECIMENOrdering Facility: [facility] Address: [address] [place] [address] Performed By: #### 5 7021-8 ####[facility]ENTERBALDEVLIA [id number] [place] [address] [place] MCV (RBC) [Entitic vol] 90.8 fL Normal 80.0-100.0 [facility] Comment on above: Order Comment: Speci men Type: BLOOD SPECIMENOrdering Facility: [facility] Address: [address] [place], [place] [address] Performed By: #### 5 7021-8 ####[facility] CENTERNCLIA [id number] [place] [address] [place] Monocytes (Bld) [#/Vol] 0.50 10*3/uL Normal <0.87 [facility] Comment on above: Order Comment: Speci men Type: BLOOD SPECIMENOrdering Facility: [facility] Address: [address] [place] [address] Performed By: #### 5 7021-8 ####[facility] CENTERNCA [id number] [place] [address] [place] Monocytes/100 WBC (Bld) 5.5 % Normal [facility] Comment on above: Order Comment: Speci men Type: BLOOD SPECIMENOrdering Facility: [facility] Address: [address] [place] [address] Performed By: #### 5 7021-8 ####[facility] CENTERNCLI [id number] [place] [address] [place] Neutrophils (Bld) [#/Vol] 6.49 10*3/uL Normal 1.45-7.50 [facility] Comment on above: Order Comment: Speci men Type: BLOOD SPECIMENOrdering Facility: [facility] Address: [address] [place] [address] Performed By: #### 5 7021-8 ####[facility] [id number] [place] [address] [place] Neutrophils/100 WBC (Bld) 71.2 % Normal [facility] Comment on above: Order Comment: Speci men Type: BLOOD SPECIMENOrdering Facility: [facility] Address: [address] [place] [address] Performed By: #### 5 7021-8 ####[facility]ENTERNCLIA [id number] [place] [address] [place] Nucleated RBC (Bld) [#/Vol] 10*3/uL Normal <0.01 [facility] Comment on above: Order Comment: Speci men Type: BLOOD SPECIMENOrdering Facility: [facility] Address: [address] [place] [address] Performed By: #### 5 7021-8 ####[facility] KRISTOPHERANDRADE [id number] [place] [address] [place] Nucleated RBC/100 WBC (Bld) [Ratio] 0.0 /100 WBC Normal [facility] Comment on above: Order Comment: Speci men Type: BLOOD SPECIMENOrdering Facility: [facility] Address: [address] [place] [address] Performed By: #### 5 7021-8 ####[facility] CENTERNCLIDl [id number] [place] [address] [place] Platelet mean volume (Bld) [Entitic vol] 9.5 fL Normal 9.0-12.7 [facility] Comment on above: Order Comment: Speci men Type: BLOOD SPECIMENOrdering Facility: [facility] Address: [address] [place] [address] Performed By: #### 5 7021-8 ####[facility]ITALA [id number] [place] [address] [place] Platelets (Bld) [#/Vol] 373 10*3/uL Normal 150-400 [facility] Comment on above: Order Comment: Speci men Type: BLOOD SPECIMENOrdering Facility: [facility] Address: [address] [place] [address] Performed By: #### 5 7021-8 ####[facility] CENTERNCLIA [id number] [place] [address] [place] RBC (Bld) [#/Vol] 4.46 10*6/uL Normal 3.90-5.20 [facility] Comment on above: Order Comment: Speci men Type: BLOOD SPECIMENOrdering Facility: [facility] Address: [address] [place] [address] Performed By: #### 5 7021-8 ####[facility] KRISTOPHERTOWNCLIA [id number] [place] [address] [place] WBC (Bld) [#/Vol] 9.12 10*3/uL Normal 3.70-11.00 [facility] Comment on above: Order Comment: Speci men Type: BLOOD SPECIMENOrdering Facility: [facility] Address: [address] [place] [address] Performed By: #### 5 7021-8 ####[facility] KRISTOPHERTOWNCLIA [id number] [place] [id number] [place] [address] [place] CNOVon 01-25-2025 CNOV Office Visit (INTMWS ) SANTOS ALLAN ([id number]) 1965 F Date Time Provider Department 01/25/25 9:40 AM FIOR ALVAREZ During your visit today, we recorded the following information about you: Pulse Respiration Blood pressure Weight 87/minute 16/minute 134/94 84.4 kg Fior Alvarez APRN.[facility] 01/25/2025 3:30 PM Signed CC: Patient presents with: Abdominal Pain: Abdominal pain HPI Santos Allan is a 59 year old female who presents today for abdominal pain. Recording using [employer] software for draft documentation of the visit was discussed with the patient/authorized customer relations representative; all questions welcomed and answered. Patient/authorized customer relations representative agreed to proceed Lower Abdominal Pain and Dysuria: - at start of appointment all pain was referred to as Lower abdominal pain until the assessment the RLQ pain was not noticed. - Onset of lower abdominal pain and dysuria began last Wednesday. - Performed an at-home urine test on Wednesday. - Denies fever or chills; has been monitoring temperature. - Contacted urgent care and was prescribed Macrobid, completed yesterday. - Today, experienced severe lower abdominal pain while urinating, described as cramping and jarring. States pain was extremely intense and has continued to persist even after urination which is different then with UTI - Denies hematuria, dark urine, nausea, emesis, or abnormal vaginal discharge. - Denies current menses. - No history of diverticulitis or diverticulosis. - No known history of ovarian cysts; one previous cyst resolved spontaneously. IBS-D: - Chronic diarrhea, managed with dietary modifications. REVIEW OF SYSTEMS General: no fevers, no chills, no night sweats, no recurrent infections, no change in appetite, no change in energy, and no significant changes in weight Respiratory: no cough, no wheezing, no shortness of breath, no hemoptysis Cardiovascular: no chest pain, no chest pressure, no palpitations, and no swelling PAST MEDICAL HISTORY Diagnosis Date Acid reflux [...] - non malignant TONSILLECTOMY PRIMARY/SECONDARY Tonsillectomy ALLERGIES Gabapentin, Hydrocodone-Acetaminophen, Imitrex [Sumatriptan], and Prednisone MEDICATIONS nitrofurantoin monohydrate and macrocrystal (MACROBID) 100 mg capsule Take 1 capsule by mouth two times a day for 2 days. phenazopyridine (PYRIDIUM) 100 mg tablet Take 2 tablets by mouth three times a day as needed. enteric contrast (will be provided with radiology test) For CT ABD/PEL W IVCON Routine order Administer, As Directed One Time Only, via Oral, Rectal, both Oral and Rectal, Enteric Tube, Stoma or Indwelling Catheter, Enteric Contrast as designated per enteric contrast guidelines iv contrast (will be provided with radiology test) CT ABD/PEL -Inject, intravenously, once for 1 dose.No IV access, insert saline lock prior to the beginning of sedation, infusion, injection of imaging exam. Discontinue saline lock post exam. If Pt. has a central line or IVAD, may access for administration according to line specific nursing protocol. Once exam is complete flush line and de-access according to line specific nursing protocol in the CT contrast administration guidelines link. tirzepatide (MOUNJARO) 10 mg/0.5 mL pen injector Inject 10 mg subcutaneously one time a week. hydroCHLOROthiazide 12.5 mg capsule Take 1 capsule by mouth once daily. omeprazole (PRILOSEC (more content not included)... Normal [facility] UA DIP, URINE (POC)on 2024 BILIRUBIN UA (POCT) Negative Negative [facility] CLARITY UA (POCT) Clear [facility] COLOR UA (POCT) Yellow [facility] GLUCOSE UA (POCT) Negative Negative mg/dL [facility] Hemoglobin Ql (U) Negative Negative [facility] KETONE UA (POCT) Negative Negative mg/dL [facility] LEUKOCYTES UA (POCT) Negative Negative [facility] NITRITE UA (POCT) Negative Negative [facility] PH UA (POCT) 6 4.5 - 8.0 [facility] Protein Ql (U) Negative Negative mg/dL [facility] SPECIFIC GRAVITY UA (POCT) 1.01 1.005 - 1.030 [facility] UROBILINOGEN UA (POCT) 0.2 Normal E.U./dL [facility] Location:[facility], [address] [place] [address], [place], [address] [facility] POINT OF CARE [facility] Miguel 01-24-2025 CNPN Telephone (INTMWS) SANTOS ALLAN ([id number]) 1965 F Date Time Provider Department 01/24/25 ANA BOLAÑOS INTBarbWS During your visit today, we recorded the following information about you: Natasha Johns LPN 01/24/2025 2:40 PM Signed Fax PA rec'd from [employer]. This was completed and faxed back to the pharmacy on the form along with records as they were asking for. Natasha Johns LPN 01/29/2025 1:43 PM Signed Prior authorization approved Payer: [employer] [facility] [phone] Note from payer: CaseId:[id number];Status:Appr radha;Review Type:Prior Auth;Coverage Start Date:01/24/2025;Coverage End Date:01/29/2026; Approval Details Authorized from January 24, 2025 to January 29, 2026 Electronic appeal: Not supported View History Medication Being Authorized tirzepatide (MOUNJARO) 10 mg/0.5 mL pen injector Inject 10 mg subcutaneously one time a week. Dispense: 6 mL Refills: 1 Start: 01/23/2025 End: 07/22/2025 Class: Normal Diagnoses: Type 2 diabetes mellitus with unspecified complications (HCC), Class 2 obesity due to excess calories without serious comorbidity with body mass index (BMI) of 39.0 to 39.9 in adult, Obstructive sleep apnea syndrome This order has been released to its destination. To be filled at: [facility] [place] [address] [address] [facility] [phone] Pt notified via my chart. Allergies As of Date: 01/24/2025 Noted Allergy Reaction GABAPENTIN 08/24/2019 7 - Swelling HYDROCODONE-ACETAMINOPHEN 08/24/2019 9 - Itching IMITREX (SUMATRIPTAN) 07/25/2007 Comments: Face went numb PREDNISONE 09/05/2024 1 - Mental Status Change Date Reviewed: 11/10/2024 Reviewed by: Gi Tejeda MA - Fully Assessed Reason for Visit: Insurance Authorization [[id number]] Prescriptions as of 01/29/2025 - phenazopyridine (PYRIDIUM) 100 mg tablet Take 2 tablets by mouth three times a day as needed. - tirzepatide (MOUNJARO) 10 mg/0.5 mL pen injector Inject 10 mg subcutaneously one time a week. - hydroCHLOROthiazide 12.5 mg capsule Take 1 capsule by mouth once daily. - omeprazole (PRILOSEC) 20 mg capsule Take 1 capsule by mouth once daily. - potassium chloride (K-TAB) 10 mEq tablet Take 1 tablet by mouth two times a day. - levothyroxine (SYNTHROID) 88 mcg tablet Take 1/2 tablet 3 days a week and whole tablet rest of the week. - pravastatin (PRAVACHOL) 80 mg tablet Take 1 tablet by mouth once daily. - gabapentin (NEURONTIN) 400 mg capsule Take 1 capsule by mouth three times a day for 180 days. - cyanocobalamin, vitamin B-12, (VITAMIN B-12 ORAL) Take 5,000 mg by mouth every other day. - MEDICATION, NON-DATABASE Alphalipoic - metoprolol tartrate, short acting, (LOPRESSOR) 25 mg tablet Take 0.5 tablets by mouth once daily. - eletriptan (RELPAX) 20 mg tablet Take 1 at start of headache, may repeat in 2 hours if necessary (total of 3 tablets) - lisinopril (ZESTRIL) 20 mg tablet Take 1 tablet by mouth twice daily. - CPAP/BIPAP/OTHER BiPAP 25/20 cmH2O. [employer]. Type .CPAPSettings into a note to see current settings/supplies/DME information. - CPAP Bilevel 25/20 cmH2O, Resmed F20 [...] DENTAL PASTE) Problem List As Of Date 01/24/2025 Noted Resolved DIABETES MELLITUS ADULT ONSET [E11.9] [...] [K31.84] 01/02/2015 01/02/2015 Gastroparesis [K31.84] 01/18/2015 03/02/2016 (more content not included)... Normal [facility] Folate SerPl-mCncon 01-23-20 25 Folate [Mass/Vol] 2.2 ng/mL Low >4.7 [facility] Comment on above: Order Comment: Speci romelia Type: BLOOD SPECIMENOrdering Facility: [facility] Address: [address] [place] [address] Performed By: #### 2 132-9, 2284-8, 2885-2 ####[facility] LABCLIA [id number] [place] [address] [place] HbA1c (Bld)on 01-22-2025 Average glucose Estimated from glycated hemoglobin (Bld) [Mass/Vol] 80 mg/dL Normal [facility] Comment on above: Order Comment: Vondai romelia Type: BLOOD SPECIMENOrdering Facility: [facility] Address: [address] [place] [address] Result Comment: eAG: (Estimated average glucose) is a calculated value from HgbA1c and is customer relations representative of the average blood glucose level in the last 2-3 month period. Performed By: #### 5 5454-3 ####[facility] LABCLIA [id number] [place] [id number] [place] HbA1c (Bld) [Mass fraction] 4.4 % Normal 4.3-5.6 [facility] Comment on above: Order Comment: Speci men Type: BLOOD SPECIMENOrdering Facility: [facility] Address: [address] [place] [address] Result Comment: Amer [place] Diabetes Association guidelines indicate that patients with HgbA1c in the range 5.7-6.4% are at increased risk for development of diabetes, and intervention by lifestyle modification may be beneficial. HgbA1c greater or equal to 6.5% is considered diagnostic of diabetes. Performed By: #### 5 5454-3 ####[facility] LABCLIA [id number] [address] [address] [place] PROTEIN ELECTROPHORESIS SERU M WITH MICA (P)on 01-22-2025 Albumin [Mass/Vol] 4.13 g/dL Normal 3.43-5.41 [facility] Comment on above: Order Comment: Speci men Type: BLOOD SPECIMENOrdering Facility: [facility] Address: [address] [place] [address] Performed By: #### L [id number] ####[facility] LABIA [id number] [address] [place] 1 globulin Elph [Mass/Vol] 0.30 g/dL Normal 0.18-0.43 [facility] Comment on above: Order Comment: Speci men Type: BLOOD SPECIMENOrdering Facility: [facility] Address: [address] [place] [address] Performed By: #### L [id number] ####[facility] [id number] [address] [place] 2 globulin Elph [Mass/Vol] 0.92 g/dL Normal 0.42-0.98 [facility] Comment on above: Order Comment: Speci men Type: BLOOD SPECIMENOrdering Facility: [facility] Address: [address] [place] [address] Performed By: #### L [id number] ####[facility] [id number] [place] [address] [place] Beta globulin Elph [Mass/Vol] 0.79 g/dL Normal 0.61-1.17 [facility] Comment on above: Order Comment: Speci men Type: BLOOD SPECIMENOrdering Facility: [facility] Address: [address] [place] [address] Performed By: #### L [id number] ####[facility] LABIA [id number] [place] [address] [place] COMMENT (SERUM PROT ELECTRO) Monoclonal Protein analysis (immunofixation) is not indicated. Normal [facility] Comment on above: Order Comment: Speci men Type: BLOOD SPECIMENOrdering Facility: [facility] Address: [address] [place], [place] [address] Performed By: #### L [id number] ####[facility] LABCLIA [id number] [address] [address] [place] Gamma globulin [place]ph [Mass/Vol] 0.56 g/dL Normal 0.53-1.51 [facility] Comment on above: Order Comment: Speci men Type: BLOOD SPECIMENOrdering Facility: [facility] Address: [address] [place] [address] Performed By: #### L [id number] ####[facility] LABIA [id number] [place] [id number] [place] M-PROTEIN LOCATION Normal [facility] Comment on above: Order Comment: Speci men Type: BLOOD SPECIMENOrdering Facility: [facility] Address: [address] [place] [address] Result Comment: Not Applicable. Performed By: #### L [id number] ####[facility] LABCLIA [id number] [place] [id number] [place] Protein Fractions [Interp] No definitive M protein is identified on protein electrophoresis. Normal No definitive M protein is identified on protein electrophor esis. [facility] Comment on above: Order Comment: Speci men Type: BLOOD SPECIMENOrdering Facility: [facility] Address: [address] [place] [address] Performed By: #### L [id number] ####[facility] LABIA [id number] [place] [id number] [place] Protein.monoclonal Elph [Mass/Vol] 0.00 g/dL Normal <=0.00 [facility] Comment on above: Order Comment: Speci men Type: BLOOD SPECIMENOrdering Facility: [facility] Address: [address] [place] [address] Performed By: #### L [id number] ####[facility] LABIA [id number] [place] [address] [place] SPE STAFF REVIEW Reviewed by Heidi Og MD [facility] Comment on above: Order Comment: Speci men Type: BLOOD SPECIMENOrdering Facility: [facility] Address: [address] [place] [address] Performed By: #### L [id number] ####[facility]PITALIA [id number] [place] [address] [place] Prot SerPl-mCncon 01-22-2025 Protein [Mass/Vol] 6.7 g/dL Normal 6.3-8.0 [facility] Comment on above: Order Comment: Speci men Type: BLOOD SPECIMENOrdering Facility: [facility] Address: [address] [place] [address] Performed By: #### 2 132-9, 2284-8, 2885-2 ####[facility] HOSPITALIA [id number] [place] [address] [place] VITAMIN B1 (THIAMINE), WHOLE BLOODon 01-22-2025 Thiamine (Bld) [Moles/Vol] 247.5 nmol/L High 84.3-213.3 [facility] Comment on above: Order Comment: Speci men Type: BLOOD SPECIMENOrdering Facility: [facility] Address: [address] [place] [address] Result Comment: This assay measures the concentration of thiamine diphosphate (TDP), the primary active form of vitamin B1. Approximately 90 percent of vitamin B1 present in whole blood is TDP. Thiamine and thiamine monophosphate, which comprise the remaining 10 percent, are not measured. This test was developed, and its performance characteristics determined by the [facility] Department of Pathology and Laboratory Medicine. It has not been cleared or approved by the FDA. The [facility] Department of Pathology and Laboratory Medicine is regulated under CLIA as qualified to perform high-complexity testing. This test is used for clinical purposes. It should not be regarded as investigational or for research. Performed By: #### B 1WB ####[facility] LABCLIA [id number] [place] [id number] [place] VITAMIN B6/PYRIDOXINon 01-22 VITAMIN B6 9.5 nmol/L Low 20.0-125.0 [facility] Comment on above: Order Comment: Speci men Type: BLOOD SPECIMENOrdering Facility: [facility] Address: [address] [place] [address] Result Comment: INTE RPRETIVE INFORMATION: Vitamin B6 (Pyridoxal 5-Phosphate) Pyridoxal 5'-phosphate measured in a specimen collected following an 8-hour or overnight fast accurately indicates vitamin B6 nutritional status. Non-fasting specimen concentration reflects recent vitamin intake. This test was developed and its performance characteristics determined by [employer]. It has not been cleared or approved by the [place] Food and Drug Administration. This test was performed in a CLIA certified laboratory and is intended for clinical purposes. Performed By: [address] [address] [employer] Apprentice: Radha Shin MD, PhD CLIA Number: [id number] Performed By: #### V ITB6 ####[facility] S[facility]THIA [id number] [place] [address] Vit B12 SerPl-ncon 025 Cobalamin (Vitamin B12) [Mass/Vol] 515 pg/mL Normal 232-1245 [facility] Comment on above: Order Comment: Speci men Type: BLOOD SPECIMENOrdering Facility: [facility] Address: [address] [place] [address] Performed By: #### 2 132-9, 2284-8, 2885-2 ####[facility] LABIA [id number] [place] [address] [place] XR CERVICAL 4V AP/LAT/OBLon 01-22-2025 XR CERVICAL 4V AP/LAT/OBL * * *Final Report* * * DATE OF EXAM: Jan 22 2025 4:23PM [id number] - XR CERVICAL 4V AP/LAT/OBL / PROCEDURE REASON: Paresthesia of both feet * * * * Physician Interpretation * * * * EXAMINATION / TECHNIQUE: XR CERVICAL 4V AP/LAT/OBL HISTORY: Paresthesia of both feet Paresthesia of both feet COMPARISON: None. RESULT: Counting reference: Craniocervical junction. Anatomic Variants: None. Status post anterior posterior fusion at C5-C6 with intact hardware and solid bony fusion. Vertebral body heights are maintained. Moderate C4-C5 and mild C7 degenerative disc disease. Prevertebral soft tissues are normal. Mild to moderate left and mild right bony neural foraminal narrowing at C4-C5. Mild bilateral bony neural foraminal narrowing at C7-T1. IMPRESSION: Postoperative and degenerative changes with intact hardware. Ceramic Saw Tender: SKYLER Transcribe Date/Time: Jan 25 2025 9:15P Dictated by : RADHA OCAMPO MD This examination was interpreted and the report reviewed and electronically signed by: RADHA OCAMPO MD on Jan 25 2025 9:16PM EST [id number] Normal [facility] XR LUMBAR 3V AP/LAT/L5-S1on 01-22-2025 XR LUMBAR 3V AP/LAT/L5-S1 * * *Final Report* * * DATE OF EXAM: Jan 22 2025 4:23PM [id number] - XR LUMBAR 3V AP/LAT/L5-S1 / PROCEDURE REASON: Paresthesia of both feet * * * * Physician Interpretation * * * * EXAM TITLE: XR LUMBAR 3V AP/LAT/L5-S1 EXAM DATE/TIME: 01/22/2025 4:23 PM COMPARISON: None. CLINICAL INDICATION/HISTORY: Paresthesia of bolus feet. TECHNIQUE: AP, lateral and cone down lateral views of the lumbar spine are presented. FINDINGS: There are five def-cvf-jlbqskh lumbar vertebrae. No fracture or subluxations are noted. There is L5-S1 disc space narrowing, with endplate sclerosis. L1-2 disc space narrowing is also noted. There is mild to moderate osteophyte formation. Kissing spine seen on lateral view. Others: Calcifications or radiopaque opacities projecting over the right abdomen. IMPRESSION: Lumbar spine degenerative changes with multilevel disc space narrowing. Ceramic Saw Tender: SKYLER Transcribe Date/Time: Jan 24 2025 5:14P Dictated by : ANAND LARA MD This examination was interpreted and the report reviewed and electronically signed by: ANAND LARA MD on Jan 24 2025 5:16PM EST [id number] Normal [facility] Plastic Surgery Visit Report on 12-29-2024 Plastic Surgery Visit Report [facility] [address], [address] [place] [address] OFFICE VISIT Date of Service: 12/29/24 MR#: [id number] Acct: [id number] Name: SANTOS ALLAN Rep #: [id number] : 1965 Provider: Dr. Denvre Casillas MD Age/Sex: 59/F Location: [facility] [place] Status: Signed Intake Vital Signs 3 12/15/24 08:20 12/29/24 15:24 Height 5 ft 6 in BP 132/85 H 125/81 H Blood Pressure Location Lt brachial Rt brachial Position Sitting Sitting Respiration 18 18 Pulse 93 90 Pulse Source Monitor Temp 98.6 F Temp Source Temporal Pulse Oximetry (%) 93 97 Oxygen Delivery Method room air room air Intake Visit Reasons: 2 W FU Chief Complaint: cyst on left index finger post op Is patient in pain?: No Allergies sumatriptan (From Imitrex) Adverse Reaction (Intermediate, Verified 12/29/24 15:17) Other sumatriptan succinate (From Imitrex) Adverse Reaction (Intermediate, Verified 12/29/24 15:17) Other Medications 3 ???Medication ???Instructions ???Recorded ???Confirmed ???Type calcium 600 mg (as 1 tab PO DAILY@0800 06/23/1312/29 History carbonate)-vitamin D3 20 mcg (800 unit) tablet (Caltrate with Vitamin D3) cholecalciferol (vitamin D3) 50 2,000 unit PO DAILY 06/23/1312/29 History mcg (2,000 unit) tablet (Vitamin D3) eletriptan 20 mg tablet (Relpax) 20 mg PO .X1 PRN 06/23/13 12/29/24 History sodium fluoride 1.1 %-potassium 100 ml DT DAILY 06/23/13 12/29/24 History nitrate 5 % dental paste (PreviDent 5000 Sensitive) cevimeline 30 mg capsule (Evoxac) 30 mg PO BID 08/09/23 12/29/24 Hi story hydrochlorothiazide 12.5 mg capsule 12.5 mg PO DAILY 08/09/2312/29 History hydroxychloroquine 200 mg tablet 200 mg PO BID 08/09/23 12/29/24 Hi story (Plaquenil) leflunomide 20 mg tablet 20 mg PO DAILY 08/09/23 12/29/24 H istory levothyroxine 88 mcg tablet 88 mcg PO MOWEFR 08/09/23 12/29/24 History (Synthroid) lisinopril 20 mg tablet 20 mg PO DAILY 08/09/23 12/29/24 H istory metoprolol tartrate 25 mg tablet 12.5 mg PO DAILY 08/09/23 12/29/24 History multivitamin 1 tab PO DAILY 08/09/23 12/29/24 H istory omeprazole 20 mg capsule,delayed 20 mg PO DAILY 08/09/23 12/29/24 H istory release potassium chloride 10 mEq 10 meq PO BID 08/09/23 12/29/24 Hi story tablet,extended release pravastatin 80 mg tablet 80 mg PO QHS 08/09/23 12/29/24 His tory sulfasalazine 500 mg tablet 1 g PO BID 08/09/23 12/29/24 Histo ry aripiprazole 2 mg tablet 4 mg (2 x 2 mg) PO DAILY 90 days 0 06/05/24 12/29/24 Rx #180 tabs citalopram 20 mg tablet 30 mg (1.5 x 20 mg) PO DAILY 90 12/29/24 Rx days #135 tabs cyclobenzaprine 10 mg tablet 10 mg PO BID PRN muscle spasm 09/1512/29/24 History tirzepatide 7.5 mg/0.5 mL 7.5 mg subcut QWEEK 10/12/2412/29 History subcutaneous pen injector (Mounjaro) gabapentin 400 mg capsule 400 mg PO 3XD 11/08/24 12/29/24 Hi story levothyroxine 44 mcg capsule 44 mcg PO SUTUTHSA 11/08/24 History hydrocodone-acetaminophen 5-325mg 0.5 - 1 tab PO QD-BID PRN pain 12/29/24 History 5mg-325mg Subjective Details: Patient is doing well. No drainage. Happy with the result no pain Objective Details: Left index finger is healing well. Bruising has resolved. No mallet finger. No collateral ligament instability at the DIP joint Coding Level of Care Code Global Post Op Diagnoses Mucous cyst of finger M67.449 [facility] Medical History Wears glasses Thyroid disease Back pain Injury of head and neck History of hiatal hernia Gastric reflux Sleep apnea History of echocardiogram JINNY (generalized anxiety disorder) Bipolar II disorder Sjogrens syndrome Fibromyalgia Vitamin deficiency Pneumonia Osteoarthritis Neuropathy IBS (irritable bowel syndrome) High triglycerides High cholesterol Hypertension Migraines Gastrointestinal problem Diabetes Carpal tunnel syndrome Bone fracture Back problem Arthritis Anemia Surgical History Hx of removal of cyst Hx of cervical spine surgery H/O gastric sleeve Previous back surgery History of carpal tunnel surgery of left wrist Gastric banding status H/O partial thyroidectomy Hx of arthroscopic knee surgery Hx of tonsillectomy Family History Mother Anxiety Breast cancer Cancer Diabetes Hypertension High cholesterol Psychiatric care Uterine cancer Father Arthritis Diabetes Hypertension High cholesterol Osteoporosis CVA (cerebral vascular accident) Other Colon cancer Depression Mental dis (more content not included)... Normal [facility] Plastic Surgery Visit Report on 12-15-2024 Plastic Surgery Visit Report [facility] [address], [address] [place] [address] OFFICE VISIT Date of Service: 12/15/24 MR#: [id number] Acct: [id number] Name: SANTOS ALLAN FRANCI Rep #: [id number] : 1965 Provider: CY corado Age/Sex: 59/F Location: [facility] [place] Status: Signed Pt seen evaluated w/GERRI. I personally interviewed exam the pt. I was involved in all aspects of pt's orders, interpretation of results treatment Intake Vital Signs 3 12/01/24 15:05 12/07/24 15:58 12/15/24 08:20 Height 5 ft 6 in 5 ft 6 in 5 ft 6 in BP 146/89 H 145/90 H 132/85 H Blood Pressure Location Rt brachial Lt brachial Lt brachial Position Sitting Sitting Sitting Respiration 18 18 Pulse 78 89 93 Pulse Source Monitor Temp 99.4 F H 98.6 F Temp Source Temporal Temporal Pulse Oximetry (%) 96 93 Oxygen Delivery Method room air room air Intake Visit Reasons: FOLLOW UP Chief Complaint: cyst on left index finger post op Is patient in pain?: Yes (11/20) Allergies sumatriptan (From Imitrex) Adverse Reaction (Intermediate, Verified 12/15/24 08:21) Other sumatriptan succinate (From Imitrex) Adverse Reaction (Intermediate, Verified 12/15/24 08:21) Other Medications 3 ???Medication ???Instructions ???Recorded ???Confirmed ???Type calcium 600 mg (as 1 tab PO DAILY@0800 06/23/1312/15 History carbonate)-vitamin D3 20 mcg (800 unit) tablet (Caltrate with Vitamin D3) cholecalciferol (vitamin D3) 50 2,000 unit PO DAILY 06/23/1312/15 History mcg (2,000 unit) tablet (Vitamin D3) eletriptan 20 mg tablet (Relpax) 20 mg PO .X1 PRN 06/23/13 12/15/24 History sodium fluoride 1.1 %-potassium 100 ml DT DAILY 06/23/13 12/15/24 History nitrate 5 % dental paste (PreviDent 5000 Sensitive) cevimeline 30 mg capsule (Evoxac) 30 mg PO BID 08/09/23 12/15/24 Hi story hydrochlorothiazide 12.5 mg capsule 12.5 mg PO DAILY 08/09/2312/15 History hydroxychloroquine 200 mg tablet 200 mg PO BID 08/09/23 12/15/24 Hi story (Plaquenil) leflunomide 20 mg tablet 20 mg PO DAILY 08/09/23 12/15/24 H istory levothyroxine 88 mcg tablet 88 mcg PO MOWEFR 08/09/23 12/15/24 History (Synthroid) lisinopril 20 mg tablet 20 mg PO DAILY 08/09/23 12/15/24 H istory metoprolol tartrate 25 mg tablet 12.5 mg PO DAILY 08/09/23 12/15/24 History multivitamin 1 tab PO DAILY 11/27/23 04/04/25 H istory omeprazole 20 mg capsule,delayed 20 mg PO DAILY 08/09/23 12/15/24 H istory release potassium chloride 10 mEq 10 meq PO BID 08/09/23 12/15/24 Hi story tablet,extended release pravastatin 80 mg tablet 80 mg PO QHS 08/09/23 12/15/24 His tory sulfasalazine 500 mg tablet 1 g PO BID 08/09/23 12/15/24 Histo ry aripiprazole 2 mg tablet 4 mg (2 x 2 mg) PO DAILY 90 days 0 06/05/24 12/15/24 Rx #180 tabs citalopram 20 mg tablet 30 mg (1.5 x 20 mg) PO DAILY 90 12/15/24 Rx days #135 tabs cyclobenzaprine 10 mg tablet 10 mg PO BID PRN muscle spasm 09/1512/15/24 History tirzepatide 7.5 mg/0.5 mL 7.5 mg subcut QWEEK 10/12/2412/15 History subcutaneous pen injector (Jimmy) gabapentin 400 mg capsule 400 mg PO 3XD 11/08/24 12/15/24 Hi story levothyroxine 44 mcg capsule 44 mcg PO SUTUTHSA 11/08/24 History hydrocodone-acetaminophen 5-325mg 0.5 - 1 tab PO QD-BID PRN pain 12/15/24 History 5mg-325mg Nurse's Note: pt here for follow up cyst on left index finger, rating pain 3/10 Subjective Details: Patient is doing well. She has been wearing her splint consistently. She denies fever, chills, erythema, nausea, vomiting. Objective Details: Left index finger is healing well. There is small area with fragile epithelialization. Will continue to monitor. Bruising has resolved. No mallet finger. Coding Level of Care Code Global Post Op Diagnoses Mucous cyst of finger M67.449 [facility] Medical History Wears glasses Thyroid disease Back pain Injury of head and neck History of hiatal hernia Gastric reflux Sleep apnea History of echocardiogram JINNY (generalized anxiety disorder) Bipolar II disorder Sjogrens syndrome Fibromyalgia Vitamin deficiency Pneumonia Osteoarthritis Neuropathy IBS (irritable bowel syndrome) High triglycerides High cholesterol Hypertension Migraines Gastrointestinal problem Diabetes Carpal tunnel syndrome Bone fracture Back problem Arthritis Anemia Surgical History (Updated 12/07/24 @ 16:02 by Yesica Alvarado) Hx of removal of cyst Hx of cervical spine surgery H/O gastric sleeve Previous back surgery History of carpal tunnel surgery of left wrist Gastric banding status H/O (more content not included)... Normal [facility] MR/BMS.BPon 12-07-2024 MR/BMS.BP [facility] [address] [place] [address], [address] [place] [address] OFFICE VISIT Date of Service: 12/07/24 MR#: [id number] Acct: [id number] Name: SANTOS ALLAN FRANCI Rep #: [id number] : 1965 Provider: Dr. Josue Melgoza se, DO Age/Sex: 59/F Location: [facility] [place] Status: Signed Intake Vital Signs 08/09/24 15:54 12/01/24 15:05 12/07/24 15:58 Height 5 ft 6.75 in 5 ft 6 in 5 ft 6 in BP 145/90 H Blood Pressure Location Lt brachial Position Sitting Pulse 89 Pulse Source Monitor BP Intake Visit Reasons: 4mfu Malted Milk Masher Required: No Accompanied by: Self Is patient in pain?: Yes Pain scale (1-10): 4 Allergies sumatriptan (From Imitrex) Adverse Reaction (Intermediate, Verified 12/07/24 15:59) Other sumatriptan succinate (From Imitrex) Adverse Reaction (Intermediate, Verified 12/07/24 15:59) Other Medications ???Medication ???Instructions ???Recorded ???Confirmed ???Type calcium 600 mg (as 1 tab PO DAILY@0800 06/23/1312/07 History carbonate)-vitamin D3 20 mcg (800 unit) tablet (Caltrate with Vitamin D3) cholecalciferol (vitamin D3) 50 2,000 unit PO DAILY 06/23/1312/07 History mcg (2,000 unit) tablet (Vitamin D3) eletriptan 20 mg tablet (Relpax) 20 mg PO .X1 PRN 06/23/13 12/07/24 History sodium fluoride 1.1 %-potassium 100 ml DT DAILY 06/23/13 12/07/24 History nitrate 5 % dental paste (PreviDent 5000 Sensitive) cevimeline 30 mg capsule (Evoxac) 30 mg PO BID 08/09/23 12/07/24 Hi story hydrochlorothiazide 12.5 mg capsule 12.5 mg PO DAILY 08/09/2312/07 History hydroxychloroquine 200 mg tablet 200 mg PO BID 08/09/23 12/07/24 Hi story (Plaquenil) leflunomide 20 mg tablet 20 mg PO DAILY 08/09/23 12/07/24 H istory levothyroxine 88 mcg tablet 88 mcg PO MOWEFR 08/09/23 12/07/24 History (Synthroid) lisinopril 20 mg tablet 20 mg PO DAILY 08/09/23 12/07/24 H istory metoprolol tartrate 25 mg tablet 12.5 mg PO DAILY 08/09/23 12/07/24 History multivitamin 1 tab PO DAILY 08/09/23 12/07/24 H istory omeprazole 20 mg capsule,delayed 20 mg PO DAILY 08/09/23 12/07/24 H istory release potassium chloride 10 mEq 10 meq PO BID 08/09/23 12/07/24 Hi story tablet,extended release pravastatin 80 mg tablet 80 mg PO QHS 08/09/23 12/07/24 His tory sulfasalazine 500 mg tablet 1 g PO BID 08/09/23 12/07/24 Histo ry aripiprazole 2 mg tablet 4 mg (2 x 2 mg) PO DAILY 90 days 0 06/05/24 12/07/24 Rx #180 tabs citalopram 20 mg tablet 30 mg (1.5 x 20 mg) PO DAILY 90 12/07/24 Rx days #135 tabs cyclobenzaprine 10 mg tablet 10 mg PO BID PRN muscle spasm 09/1512/07/24 History tirzepatide 7.5 mg/0.5 mL 7.5 mg subcut QWEEK 10/12/2412/07 History subcutaneous pen injector (Mounjaro) gabapentin 400 mg capsule 400 mg PO 3XD 11/08/24 12/07/24 Hi story levothyroxine 44 mcg capsule 44 mcg PO SUTUTHSA 11/08/24 History hydrocodone-acetaminophen 5-325mg 0.5 - 1 tab PO QD-BID PRN pain 12/07/24 History 5mg-325mg PFSH Medical History Wears glasses Thyroid disease Back pain Injury of head and neck History of hiatal hernia Gastric reflux Sleep apnea History of echocardiogram JINNY (generalized anxiety disorder) Bipolar II disorder Sjogrens syndrome Fibromyalgia Vitamin deficiency Pneumonia Osteoarthritis Neuropathy IBS (irritable bowel syndrome) High triglycerides High cholesterol Hypertension Migraines Gastrointestinal problem Diabetes Carpal tunnel syndrome Bone fracture Back problem Arthritis Anemia Surgical History (Updated 12/07/24 @ 16:02 by Yesica Alvarado) Hx of removal of cyst Hx of cervical spine surgery H/O gastric sleeve Previous back surgery History of carpal tunnel surgery of left wrist Gastric banding status H/O partial thyroidectomy Hx of arthroscopic knee surgery Hx of tonsillectomy Family History Mother Anxiety Breast cancer Cancer Diabetes Hypertension High cholesterol Psychiatric care Uterine cancer Father Arthritis Diabetes Hypertension High cholesterol Osteoporosis CVA (cerebral vascular accident) Other Colon cancer Depression Mental disorder Social History Smoking Status: Former smoker how long ago did patient quit smoking: quit 22 years ago alcohol intake: current details: 1-2 drinks, 1-2x month substance use type: does not use what type of physical activity do you participate in: walking frequency: 3-4 times per week additional social history: pt denies vaping, denies edibles, denies marijuana use, denies aspirin and ibuprofen use. HPI History of Present Illness History p (more content not included)... Normal [facility] CBC W/Diff, Automatedon 11-12 Absolute Lymph 2.30 X10 3/uL Normal 0.83-4.51 [facility] Comment on above: Performed By: #### L 100.0100, L501.1105, L500.3400 #### [facility] [address] [place], [place], [id number] Absolute Neut 2.9 X10 3/uL Normal 2.0-7.7 [facility] Comment on above: Performed By: #### L 100.0100, L501.1105, L500.3400 #### [facility] [address] [place], [address] Basophils/100 WBC (Bld) 1.0 % Normal 0-1 [facility] Comment on above: Performed By: #### L 100.0100, L501.1105, L500.3400 #### [facility] [address] [place], [address] Eosinophils/100 WBC (Bld) 2.1 % Normal 0-5 [facility] Comment on above: Performed By: #### L 100.0100, L501.1105, L500.3400 #### [facility] [address] [place], [address] Erythrocyte distribution width (RBC) [Ratio] 12.8 % Normal 11.6-14.6 [facility] Comment on above: Performed By: #### L 100.0100, L501.1105, L500.3400 #### [facility] [address] [place], [address] Hematocrit (Bld) [Volume fraction] 42.9 % Normal 37-47 [facility] Comment on above: Performed By: #### L 100.0100, L501.1105, L500.3400 #### [facility] [address] [place], [address] Hemoglobin (Bld) [Mass/Vol] 14.3 g/dL Normal 12.0-15.0 [facility] Comment on above: Performed By: #### L 100.0100, L501.1105, L500.3400 #### [facility] [address] [place], [address] IG% 0.300 Normal 0.0-0.9 [facility] Comment on above: Result Comment: IG% - Immature Granulocytes (promyelocytes, myelocytes and metamyelocytes) > 1% indicates that a LEFT SHIFT is Present. Performed By: #### L 100.0100, L501.1105, L500.3400 #### [facility] [address] [place], [address] Lymphocytes/100 WBC (Bld) 39.7 % Normal 19-41 [facility] Comment on above: Performed By: #### L 100.0100, L501.1105, L500.3400 #### [facility] [address] [place], [address] MCH (RBC) [Entitic mass] 30.2 pg Normal 27.0-32.0 [facility] Comment on above: Performed By: #### L 100.0100, L501.1105, L500.3400 #### [facility] [address] [place], [address] MCHC (RBC) [Mass/Vol] 33.3 g/dL Normal 32-36 [facility] Comment on above: Performed By: #### L 100.0100, L501.1105, L500.3400 #### [facility] [address] [place], [address] MCV (RBC) [Entitic vol] 90.7 fL Normal 81-99 [facility] Comment on above: Performed By: #### L 100.0100, L501.1105, L500.3400 #### [facility] [address] [place], [address] Monocytes/100 WBC (Bld) 7.4 % Normal 0-10 [facility] Comment on above: Performed By: #### L 100.0100, L501.1105, L500.3400 #### [facility] [address] [place], [address] Neutrophils/100 WBC (Bld) 49.5 % Normal 47-70 [facility] Comment on above: Performed By: #### L 100.0100, L501.1105, L500.3400 #### [facility] [address] [place], [address] Nucleated RBC (Bld) [#/Vol] 0 10*3/uL Normal 0-5 [facility] Comment on above: Performed By: #### L 100.0100, L501.1105, L500.3400 #### [facility] [address] [place], [address] Platelet mean volume (Bld) [Entitic vol] 10.1 fL Normal 6.2-12.0 [facility] Comment on above: Performed By: #### L 100.0100, L501.1105, L500.3400 #### [facility] [address] [place], [address] Platelets (Bld) [#/Vol] 286 10*3/uL Normal 150-450 [facility] Comment on above: Performed By: #### L 100.0100, L501.1105, L500.3400 #### [facility] [address] [place], [address] RBC (Bld) [#/Vol] 4.73 10*6/uL Normal 4.2-5.4 [facility] Comment on above: Performed By: #### L 100.0100, L501.1105, L500.3400 #### [facility] [address] [place], [address] RDW SD 42.4 fl Normal 35.1-43.9 [facility] Comment on above: Performed By: #### L 100.0100, L501.1105, L500.3400 #### [facility] [address] [place], [address] WBC (Bld) [#/Vol] 5.8 10*3/uL Normal 4.4-11.0 [facility] Comment on above: Performed By: #### L 100.0100, L501.1105, L500.3400 #### [facility] [address] [place], [address] Liver Profileon 12-05-2024 Albumin [Mass/Vol] 4.2 g/dL Normal 3.5-5.0 [facility] Comment on above: Performed By: #### L 100.0100, L501.1105, L500.3400 #### [facility] [address] [place], [address] ALK PHOS 92 U/L Normal 35-104 [facility] Comment on above: Performed By: #### L 100.0100, L501.1105, L500.3400 #### [facility] [address] [place], [address] ALT [Catalytic activity/Vol] 13 U/L Normal <=34 [facility] Comment on above: Performed By: #### L 100.0100, L501.1105, L500.3400 #### [facility] [address] [place], [address] AST [Catalytic activity/Vol] 24 U/L Normal <=31 [facility] Comment on above: Performed By: #### L 100.0100, L501.1105, L500.3400 #### [facility] [address] [place], [address] Bilirubin [Mass/Vol] 0.38 mg/dL Normal 0.00-1.30 [facility] Comment on above: Performed By: #### L 100.0100, L501.1105, L500.3400 #### [facility] [address] [place], [address] Bilirubin.direct [Mass/Vol] 0.16 mg/dL Normal 0.00-0.30 [facility] Comment on above: Performed By: #### L 100.0100, L501.1105, L500.3400 #### [facility] [address] [place], [address] Globulin (S) [Mass/Vol] 2.8 g/dL Normal 2.2-4.2 [facility] Comment on above: Performed By: #### L 100.0100, L501.1105, L500.3400 #### [facility] [address] [place], [address] T PROT 7.0 g/dL Normal 5.9-8.4 [facility] Comment on above: Performed By: #### L 100.0100, L501.1105, L500.3400 #### [facility] [address] [place], [address] Serum Creatinine AND GFRon 0 12-05-2024 Creatinine [Mass/Vol] 0.62 mg/dL Low 0.70-1.20 [facility] Comment on above: Performed By: #### L 100.0100, L501.1105, L500.3400 #### [facility] [address] [place], [address] GFR/1.73 sq M.predicted among non-blacks MDRD (S/P/Bld) [Vol rate/Area] 104 mL/min/{1.73_m2} Normal >60 [facility] Comment on above: Result Comment: mL/m in/1.73m2 CKD-EPI Creatinine Equation (2020) Performed By: #### L 100.0100, L501.1105, L500.3400 #### [facility] [address] [place], [address] Plastic Surgery Visit Report on 12-04-2024 Plastic Surgery Visit Report [facility] [address], [address] [place] [address] OFFICE VISIT Date of Service: 12/05/24 MR#: [id number] Acct: [id number] Name: SANTOS ALLAN Rep #: [id number] : 1965 Provider: Dr. Denver Casillas MD Age/Sex: 58/F Location: [place] [address] Status: Signed Intake Vital Signs 12/01/24 15:05 Height 5 ft 6 in BP 146/89 H Blood Pressure Location Rt brachial Position Sitting Respiration 18 Pulse 78 Temp 99.4 F H Temp Source Temporal Pulse Oximetry (%) 96 Oxygen Delivery Method room air Intake Visit Reasons: FOLLOW UP Chief Complaint: cyst on left index finger Allergies sumatriptan (From Imitrex) Adverse Reaction (Intermediate, Verified 12/04/24 15:25) Other sumatriptan succinate (From Imitrex) Adverse Reaction (Intermediate, Verified 12/04/24 15:25) Other Medications ???Medication ???Instructions ???Recorded ???Confirmed ???Type calcium 600 mg (as 1 tab PO DAILY@0800 06/23/1312/05 History carbonate)-vitamin D3 20 mcg (800 unit) tablet (Caltrate with Vitamin D3) cholecalciferol (vitamin D3) 50 2,000 unit PO DAILY 06/23/1312/05 History mcg (2,000 unit) tablet (Vitamin D3) eletriptan 20 mg tablet (Relpax) 20 mg PO .X1 PRN 06/23/13 12/05/24 History sodium fluoride 1.1 %-potassium 100 ml DT DAILY 06/23/13 12/05/24 History nitrate 5 % dental paste (PreviDent 5000 Sensitive) cevimeline 30 mg capsule (Evoxac) 30 mg PO BID 08/09/23 12/05/24 Hi story hydrochlorothiazide 12.5 mg capsule 12.5 mg PO DAILY 08/09/2312/05 History hydroxychloroquine 200 mg tablet 200 mg PO BID 08/09/23 12/05/24 Hi story (Plaquenil) leflunomide 20 mg tablet 20 mg PO DAILY 08/09/23 12/05/24 H istory levothyroxine 88 mcg tablet 88 mcg PO MOWEFR 08/09/23 12/05/24 History (Synthroid) lisinopril 20 mg tablet 20 mg PO DAILY 08/09/23 12/05/24 H istory metoprolol tartrate 25 mg tablet 12.5 mg PO DAILY 08/09/23 12/05/24 History multivitamin 1 tab PO DAILY 08/09/23 12/05/24 H istory omeprazole 20 mg capsule,delayed 20 mg PO DAILY 08/09/23 12/05/24 H istory release potassium chloride 10 mEq 10 meq PO BID 08/09/23 12/05/24 Hi story tablet,extended release pravastatin 80 mg tablet 80 mg PO QHS 08/09/23 12/05/24 His tory sulfasalazine 500 mg tablet 1 g PO BID 08/09/23 12/05/24 Histo ry aripiprazole 2 mg tablet 4 mg (2 x 2 mg) PO DAILY 90 days 0 06/05/24 12/05/24 Rx #180 tabs citalopram 20 mg tablet 30 mg (1.5 x 20 mg) PO DAILY 90 12/05/24 Rx days #135 tabs cyclobenzaprine 10 mg tablet 10 mg PO BID PRN muscle spasm 09/1512/05/24 History tirzepatide 7.5 mg/0.5 mL 7.5 mg subcut QWEEK 10/12/2412/05 History subcutaneous pen injector (Nedunfletcherro) gabapentin 400 mg capsule 400 mg PO 3XD 11/08/24 12/05/24 Hi story levothyroxine 44 mcg capsule 44 mcg PO SUTUTHSA 11/08/24 History cephalexin 500 mg capsule 500 mg PO TID 5 days #15 caps 02/0412/05/24 Rx oxycodone 5 mg tablet 5 mg PO BID 5 days #10 tabs 12/05/24 Rx Subjective Details: Doing well overall. No fevers chills or drainage. Here for checkup of the operative finger. Objective Details: Left index finger examined Still some bruising but no erythema or warm or other clinical signs of infection. Healing. Cyst has involuted She has been compliant with wearing the splint. No mallet finger, no collateral ligament instability Coding Level of Care Code Global Post Op Diagnoses Mucous cyst of finger M67.449 [facility] Medical History Wears glasses Thyroid disease Back pain Injury of head and neck History of hiatal hernia Gastric reflux Sleep apnea History of echocardiogram JINNY (generalized anxiety disorder) Bipolar II disorder Sjogrens syndrome Fibromyalgia Vitamin deficiency Pneumonia Osteoarthritis Neuropathy IBS (irritable bowel syndrome) High triglycerides High cholesterol Hypertension Migraines Gastrointestinal problem Diabetes Carpal tunnel syndrome Bone fracture Back problem Arthritis Anemia Surgical History Hx of cervical spine surgery H/O gastric sleeve Previous back surgery History of carpal tunnel surgery of left wrist Gastric banding status H/O partial thyroidectomy Hx of arthroscopic knee surgery Hx of tonsillectomy Family History Mother Anxiety Breast cancer Cancer Diabetes Hypertension High cholesterol Psychiatric care Uterine cancer Father Arthritis Diabetes Hypertension High cholesterol Osteoporosis CVA (cerebral vascular accident) Other Col (more content not included)... Normal [facility] Plastic Surgery Visit Report on 12-01-2024 Plastic Surgery Visit Report [facility] Plastic Reconstructive Surgery [address], [address] [place] [id number] OFFICE VISIT Date of Service: 12/01/24 MR#: [id number] Acct: [id number] Name: SANTOS ALLAN FRANCI Rep #: [id number] : 1965 Provider: Dr. Denver Casillas MD Age/Sex: 58/F Location: [facility] Status: Signed Intake Vital Signs 11/15/24 09:18 11/24/24 15:53 12/01/24 15:05 Height 5 ft 6 in 5 ft 6 in 5 ft 6 in BP 146/89 H Blood Pressure Location Rt brachial Position Sitting Respiration 18 Pulse 78 Temp 99.4 F H Temp Source Temporal Pulse Oximetry (%) 96 Oxygen Delivery Method room air Intake Visit Reasons: 1 W FU SUTURE REMOVAL Chief Complaint: cyst on left index finger Is patient in pain?: Yes (01/20) Allergies sumatriptan (From Imitrex) Adverse Reaction (Intermediate, Verified 12/01/24 15:06) Other sumatriptan succinate (From Imitrex) Adverse Reaction (Intermediate, Verified 12/01/24 15:06) Other Medications ???Medication ???Instructions ???Recorded ???Confirmed ???Type calcium 600 mg (as 1 tab PO DAILY@0800 06/23/1312/01 History carbonate)-vitamin D3 20 mcg (800 unit) tablet (Caltrate with Vitamin D3) cholecalciferol (vitamin D3) 50 2,000 unit PO DAILY 06/23/1312/01 History mcg (2,000 unit) tablet (Vitamin D3) eletriptan 20 mg tablet (Relpax) 20 mg PO .X1 PRN 06/23/13 12/01/24 History sodium fluoride 1.1 %-potassium 100 ml DT DAILY 06/23/13 12/01/24 History nitrate 5 % dental paste (PreviDent 5000 Sensitive) cevimeline 30 mg capsule (Evoxac) 30 mg PO BID 08/09/23 12/01/24 Hi story hydrochlorothiazide 12.5 mg capsule 12.5 mg PO DAILY 08/09/2312/01 History hydroxychloroquine 200 mg tablet 200 mg PO BID 08/09/23 12/01/24 Hi story (Plaquenil) leflunomide 20 mg tablet 20 mg PO DAILY 08/09/23 12/01/24 H istory levothyroxine 88 mcg tablet 88 mcg PO MOWEFR 08/09/23 12/01/24 History (Synthroid) lisinopril 20 mg tablet 20 mg PO DAILY 08/09/23 12/01/24 H istory metoprolol tartrate 25 mg tablet 12.5 mg PO DAILY 08/09/23 12/01/24 History multivitamin 1 tab PO DAILY 08/09/23 12/01/24 H istory omeprazole 20 mg capsule,delayed 20 mg PO DAILY 08/09/23 12/01/24 H istory release potassium chloride 10 mEq 10 meq PO BID 08/09/23 12/01/24 Hi story tablet,extended release pravastatin 80 mg tablet 80 mg PO QHS 08/09/23 12/01/24 His tory sulfasalazine 500 mg tablet 1 g PO BID 08/09/23 12/01/24 Histo ry aripiprazole 2 mg tablet 4 mg (2 x 2 mg) PO DAILY 90 days 0 06/05/24 12/01/24 Rx #180 tabs citalopram 20 mg tablet 30 mg (1.5 x 20 mg) PO DAILY 90 12/01/24 Rx days #135 tabs cyclobenzaprine 10 mg tablet 10 mg PO BID PRN muscle spasm 09/1512/01/24 History tirzepatide 7.5 mg/0.5 mL 7.5 mg subcut QWEEK 10/12/2412/01 History subcutaneous pen injector (Jimmy) gabapentin 400 mg capsule 400 mg PO 3XD 11/08/24 12/01/24 Hi story levothyroxine 44 mcg capsule 44 mcg PO SUTUTHSA 11/08/24 History cephalexin 500 mg capsule 500 mg PO TID 5 days #15 caps 02/0412/01/24 Rx oxycodone 5 mg tablet 5 mg PO BID 5 days #10 tabs 12/01/24 Rx Nurse's Note: pt here post op left index finger, c/o finger pain 5/10 Subjective Details: Patient is doing well. She states she is having some discomfort at the incision site. She has noticed the skin is sloughing off. She denies any fevers, chills, nausea, or vomiting or any other signs of infection. She has been wearing her extension splint at all time. She denies getting the incision wet with soap and water. Objective Details: Left index finger sutures intact. Removed without difficulty. There is small amount of maceration present over the center aspect of the incision. No erythema or warm or other clinical signs of infection. She has been compliant with wearing the splint. 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 Normal [facility] Plastic Surgery Visit Report on 11-24-2024 Plastic Surgery Visit Report [facility] Plastic Reconstructive Surgery [address], [address] [place] [address] OFFICE VISIT Date of Service: 11/24/24 MR#: [id number] Acct: [id number] Name: SANTOS ALLAN Rep #: [id number] : 1965 Provider: Dr. Denver Casillas MD Age/Sex: 58/F Location: [facility] Status: Signed Intake Vital Signs 11/15/24 09:18 11/24/24 15:42 Height 5 ft 6 in BP 139/93 H Blood Pressure Location Lt brachial Position Sitting Respiration 18 Pulse 85 Pulse Source Monitor Pulse Oximetry (%) 96 Oxygen Delivery Method room air Intake Visit Reasons: 1 W FU Chief Complaint: cyst on left index finger Is patient in pain?: No Allergies sumatriptan (From Imitrex) Adverse Reaction (Intermediate, Verified 11/24/24 15:41) Other sumatriptan succinate (From Imitrex) Adverse Reaction (Intermediate, Verified 11/24/24 15:41) Other Medications ???Medication ???Instructions ???Recorded ???Confirmed ???Type calcium 600 mg (as 1 tab PO DAILY@0800 06/23/1311/24 History carbonate)-vitamin D3 20 mcg (800 unit) tablet (Caltrate with Vitamin D3) cholecalciferol (vitamin D3) 50 2,000 unit PO DAILY 06/23/1311/24 History mcg (2,000 unit) tablet (Vitamin D3) eletriptan 20 mg tablet (Relpax) 20 mg PO .X1 PRN 06/23/13 11/24/24 History sodium fluoride 1.1 %-potassium 100 ml DT DAILY 06/23/13 11/24/24 History nitrate 5 % dental paste (PreviDent 5000 Sensitive) cevimeline 30 mg capsule (Evoxac) 30 mg PO BID 08/09/23 11/24/24 Hi story hydrochlorothiazide 12.5 mg capsule 12.5 mg PO DAILY 08/09/2311/24 History hydroxychloroquine 200 mg tablet 200 mg PO BID 08/09/23 11/24/24 Hi story (Plaquenil) leflunomide 20 mg tablet 20 mg PO DAILY 08/09/23 11/24/24 H istory levothyroxine 88 mcg tablet 88 mcg PO MOWEFR 08/09/23 11/24/24 History (Synthroid) lisinopril 20 mg tablet 20 mg PO DAILY 08/09/23 11/24/24 H istory metoprolol tartrate 25 mg tablet 12.5 mg PO DAILY 08/09/23 11/24/24 History multivitamin 1 tab PO DAILY 08/09/23 11/24/24 H istory omeprazole 20 mg capsule,delayed 20 mg PO DAILY 08/09/23 11/24/24 H istory release potassium chloride 10 mEq 10 meq PO BID 08/09/23 11/24/24 Hi story tablet,extended release pravastatin 80 mg tablet 80 mg PO QHS 08/09/23 11/24/24 His tory sulfasalazine 500 mg tablet 1 g PO BID 08/09/23 11/24/24 Histo ry aripiprazole 2 mg tablet 4 mg (2 x 2 mg) PO DAILY 90 days 0 06/05/24 11/24/24 Rx #180 tabs citalopram 20 mg tablet 30 mg (1.5 x 20 mg) PO DAILY 90 11/24/24 Rx days #135 tabs cyclobenzaprine 10 mg tablet 10 mg PO BID PRN muscle spasm 09/1511/24/24 History tirzepatide 7.5 mg/0.5 mL 7.5 mg subcut QWEEK 10/12/2411/24 History subcutaneous pen injector (Mounjaro) gabapentin 400 mg capsule 400 mg PO 3XD 11/08/24 11/24/24 Hi story levothyroxine 44 mcg capsule 44 mcg PO SUTUTHSA 11/08/24 History cephalexin 500 mg capsule 500 mg PO TID 5 days #15 caps 02/0411/24/24 Rx oxycodone 5 mg tablet 5 mg PO BID 5 days #10 tabs 11/24/24 Rx Subjective Details: Doing well No fevers chills or drainage No complaints today Pain controlled Objective Details: LEFT INDEX FINGER Dressing/splint removed and surgical site examined. No drainage. No induration/cellulitis. C/D/I Could benefit from another week of sutures Coding Level of Care Code Global Post Op Diagnoses Mucous cyst of finger M67.449 [facility] Medical History Wears glasses Thyroid disease Back pain Injury of head and neck History of hiatal hernia Gastric reflux Sleep apnea History of echocardiogram JINNY (generalized anxiety disorder) Bipolar II disorder Sjogrens syndrome Fibromyalgia Vitamin deficiency Pneumonia Osteoarthritis Neuropathy IBS (irritable bowel syndrome) High triglycerides High cholesterol Hypertension Migraines Gastrointestinal problem Diabetes Carpal tunnel syndrome Bone fracture Back problem Arthritis Anemia Surgical History Hx of cervical spine surgery H/O gastric sleeve Previous back surgery History of carpal tunnel surgery of left wrist Gastric banding status H/O partial thyroidectomy Hx of arthroscopic knee surgery Hx of tonsillectomy Family History Mother Anxiety Breast cancer Cancer Diabetes Hypertension High cholesterol Psychiatric care Uterine cancer Father Arthritis Diabetes Hypertension High cholesterol Osteoporosis CVA (cerebral vascular accident) Other Colon cancer Depression Mental disorder Social History (Reviewed (more content not included)... Normal [facility] Plastic Surgery Visit Report on 11-17-2024 Plastic Surgery Visit Report [facility] Plastic Reconstructive Surgery [address], [address] [place] [address] OFFICE VISIT Date of Service: 11/17/24 MR#: [id number] Acct: [id number] Name: SANTOS ALLAN FRANCI Rep #: [id number] : 1965 Provider: Dr. Denver Casillas MD Age/Sex: 58/F Location: [facility] Status: Signed Intake Vital Signs 11/15/24 09:18 11/17/24 13:25 Height 5 ft 6 in BP 138/88 H Blood Pressure Location Rt brachial Position Sitting Respiration 18 Pulse 93 Pulse Source Monitor Temp 98.2 F Temp Source Oral Pulse Oximetry (%) 96 Oxygen Delivery Method room air Intake Visit Reasons: POST OP Chief Complaint: cyst on left index finger Is patient in pain?: Yes Allergies sumatriptan (From Imitrex) Adverse Reaction (Intermediate, Verified 11/17/24 13:25) Other sumatriptan succinate (From Imitrex) Adverse Reaction (Intermediate, Verified 11/17/24 13:25) Other Medications ???Medication ???Instructions ???Recorded ???Confirmed ???Type calcium 600 mg (as 1 tab PO DAILY@0800 06/23/1311/08 History carbonate)-vitamin D3 20 mcg (800 unit) tablet (Caltrate with Vitamin D3) cholecalciferol (vitamin D3) 50 2,000 unit PO DAILY 06/23/1311/08 History mcg (2,000 unit) tablet (Vitamin D3) eletriptan 20 mg tablet (Relpax) 20 mg PO .X1 PRN 06/23/13 11/08/24 History sodium fluoride 1.1 %-potassium 100 ml DT DAILY 06/23/13 11/08/24 History nitrate 5 % dental paste (PreviDent 5000 Sensitive) cevimeline 30 mg capsule (Evoxac) 30 mg PO BID 08/09/23 11/08/24 Hi story hydrochlorothiazide 12.5 mg capsule 12.5 mg PO DAILY 08/09/2311/08 History hydroxychloroquine 200 mg tablet 200 mg PO BID 08/09/23 11/08/24 Hi story (Plaquenil) leflunomide 20 mg tablet 20 mg PO DAILY 08/09/23 11/08/24 H istory levothyroxine 88 mcg tablet 88 mcg PO MOWEFR 08/09/23 11/15/24 History (Synthroid) lisinopril 20 mg tablet 20 mg PO DAILY 08/09/23 11/08/24 H istory metoprolol tartrate 25 mg tablet 12.5 mg PO DAILY 08/09/23 11/15/24 History multivitamin 1 tab PO DAILY 08/09/23 11/08/24 H istory omeprazole 20 mg capsule,delayed 20 mg PO DAILY 08/09/23 11/15/24 H istory release potassium chloride 10 mEq 10 meq PO BID 08/09/23 11/08/24 Hi story tablet,extended release pravastatin 80 mg tablet 80 mg PO QHS 08/09/23 11/08/24 His tory sulfasalazine 500 mg tablet 1 g PO BID 08/09/23 11/08/24 Histo ry aripiprazole 2 mg tablet 4 mg (2 x 2 mg) PO DAILY 90 days 0 06/05/24 11/08/24 Rx #180 tabs citalopram 20 mg tablet 30 mg (1.5 x 20 mg) PO DAILY 90 11/08/24 Rx days #135 tabs cyclobenzaprine 10 mg tablet 10 mg PO BID PRN muscle spasm 09/1511/08/24 History tirzepatide 7.5 mg/0.5 mL 7.5 mg subcut QWEEK 10/12/2411/15 History subcutaneous pen injector (Mounjaro) gabapentin 400 mg capsule 400 mg PO 3XD 11/08/24 11/15/24 Hi story levothyroxine 44 mcg capsule 44 mcg PO SUTUTHSA 11/08/24 History cephalexin 500 mg capsule 500 mg PO TID 5 days #15 caps 02/04 Rx oxycodone 5 mg tablet 5 mg PO BID 5 days #10 tabs Rx Subjective Details: Doing well. Pain controlled. No fevers chills or drainage. Compliant with DIP joint extension splinting. Objective Details: LEFT INDEX FINGER Dressing/splint removed and surgical site examined. No drainage. No induration/cellulitis. C/D/I Coding Level of Care Code Global Post Op Diagnoses Mucous cyst of finger M67.449 [facility] Medical History Wears glasses Thyroid disease Back pain Injury of head and neck History of hiatal hernia Gastric reflux Sleep apnea History of echocardiogram JINNY (generalized anxiety disorder) Bipolar II disorder Sjogrens syndrome Fibromyalgia Vitamin deficiency Pneumonia Osteoarthritis Neuropathy IBS (irritable bowel syndrome) High triglycerides High cholesterol Hypertension Migraines Gastrointestinal problem Diabetes Carpal tunnel syndrome Bone fracture Back problem Arthritis Anemia Surgical History Hx of cervical spine surgery H/O gastric sleeve Previous back surgery History of carpal tunnel surgery of left wrist Gastric banding status H/O partial thyroidectomy Hx of arthroscopic knee surgery Hx of tonsillectomy Family History Mother Anxiety Breast cancer Cancer Diabetes Hypertension High cholesterol Psychiatric care Uterine cancer Father Arthritis Diabetes Hypertension High cholesterol Osteoporosis CVA (cerebral vascular accident) Other Colon cancer Depression Mental disorder Social History (Reviewe (more content not included)... Normal [facility] Operative Reporton 5 Operative Report [facility] Medical Records Department [address] [place] [address] Operative Report 11/16/24 0645 MR#: [id number] Acct: [id number] Name: SANTOS ALLAN Rep #: [id number] : 1965 58 From: Denver Casillas MD PCP: Dr. Ana Bolaños MD Status:DEP [facility] Location: [facility] Operative Report (Standard) Operative Information Date of Procedure: 11/15/24 Pre-Operative Diagnosis: Left index finger mucous cyst Post-Operative Diagnosis: Same Surgery/Procedure Performed: 1) Excision of the left index finger mucous cyst (CPT: 31316) manager ccu: No Type of Anesthesia: MAC/Supplemental (7 cc of a 50/50 mixture of 1% lidocaine and 0.25% Marcaine ) RN Documented Start/Stop Times: Operation Date: 11/15/24 10:35 Case Time Into Pre-Op 11/15/24 09:05 Out of Pre-Op 11/15/24 10:40 Anesthesia Start 11/15/24 10:43 Into Room 11/15/24 10:43 Procedure Start 11/15/24 11:00 Procedure End 11/15/24 11:24 Anesthesia End 11/15/24 11:27 Out of Room 11/15/24 11:27 Into Recovery 11/15/24 11:30 Into Phase II Recovery 11/15/24 11:48 Out of Recovery 11/15/24 11:48 Out of Phase II 11/15/24 12:10 Procedure Start Time: 11:00 Procedure Stop Time: 11:24 Select all DRAINS/GRAFTS/IMPLANTS that apply: None Estimated Blood Loss: Minimal Specimen collected: No Description of surgery: Indications: Patient presents with a left index finger mucous cyst. I discussed risk benefits and alternatives to the procedure and she elected to proceed with excision. I marked the correct finger and preoperative holding with the patient in agreement. Procedure details: Patient was correctly identified in the preoperative holding area and taken back to the operating room where she was administered sedation. She was prepped and draped in sterile fashion. A digital block was performed and a turnicot was applied to the index finger with care taken to remove at the end of the case. A timeout was performed. We began the procedure by making an incision dorsally over the DIP joint and dissecting distally towards the underside of the cyst. At this point we had exposure to the dorsal aspects of the lateral joint and the terminal slip, as well as the cyst stalk. A curette was then used to excise the joint stock and debride the lateral portions of the joint/potential osteophytes with care taken preserve the terminal slip and the collateral ligaments. The wound was irrigated with copious amounts normal saline. The cyst material (joint fluid) and the stalk of the cyst were removed. There was no clear specimen to be sent. The skin overlying the cyst was left in place. The turnicot was removed and hemostasis was obtained with bipolar electrocautery and the stalk of the cyst cauterized. The wound was closed with interrupted 4-0 nylon suture, a splint with Alumafoam (DIP joint extension) was applied, with xeroform Ketan and loose coban. The patient tolerated the procedure well and was awakened and taken to the PACU in stable condition. Surgical Findings: Consistent with mucous cyst Complications Complications: No Admit VTE Documentation VTE Mechan Device Prophylaxis: SCD's 11/16/24 0655 Cosigner Signature (if applicable): CC: Dr. Ana Bolaños MD; Dr. Denver Casillas MD Signed ADDENDUM by Dr. Denver Casillas MD on 11/16/24 at 0656 Addendum . 11/16/24 0656 Cosigner Signature (if applicable): cc: Dr. Ana Bolaños MD; Dr. Denver Casillas MD * Signed Normal [facility] H AND P Exam - Surgicalon H&P Exam - Surgical [facility] Medical Records Department [address] [place] [address] H P Exam - Surgical 11/15/24 0855 MR#: [id number] Acct: [id number] Name: SANTOS ALLAN FRANCI Rep #: [id number] : 1965 58 From: Denver Casillas MD PCP: Dr. Ana Bolaños MD Status:REG [facility] Location: [place] [address] HPI - General HPI Narrative Santos Allan is a 58 YO FM female referred by [facility] for a cyst on the left index finger. Cyst has been present for months and does not drain. No infection. 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 Pt is a previous smoker, quit 22 years ago, denies vaping,edibles. Pt denies any family history of blood disorders or blood clots. Pt has a history of gastric banding and gastric sleeve, pt reports currently taking Mournjaro for weight loss. Current Encounter (DATE OF SURGERY H P UPDATE): I saw and examined the patient this morning in pre- operative holding. We discussed risks and benefits of today's surgery and they would like to proceed. NO CHANGE in health history since last seen and evaluated EXCEPT the cyst has drained some fluid. Ready to proceed with surgery. [facility] Medical History Wears glasses Thyroid disease Back pain Injury of head and neck History of hiatal hernia Gastric reflux Sleep apnea History of echocardiogram JINYN (generalized anxiety disorder) Bipolar II disorder Sjogrens syndrome Fibromyalgia Vitamin deficiency Pneumonia Osteoarthritis Neuropathy IBS (irritable bowel syndrome) High triglycerides High cholesterol Hypertension Migraines Gastrointestinal problem Diabetes Carpal tunnel syndrome Bone fracture Back problem Arthritis Anemia Home Medications ???Medication ???Instructions ???Recorded ???Last Taken ???Type calcium 600 mg (as 1 tab PO DAILY@0800 06/23/13 Unkno wn History carbonate)-vitamin D3 20 mcg (800 unit) tablet (Caltrate with Vitamin D3) cholecalciferol (vitamin D3) 50 2,000 unit PO DAILY 06/23/13 Unkno wn History mcg (2,000 unit) tablet (Vitamin D3) eletriptan 20 mg tablet (Relpax) 20 mg PO .X1 PRN 06/23/13 Unknown History sodium fluoride 1.1 %-potassium 100 ml DT DAILY 06/23/13 Unknown H istory nitrate 5 % dental paste (PreviDent 5000 Sensitive) cevimeline 30 mg capsule (Evoxac) 30 mg PO BID 08/09/23 Unknown His tory hydrochlorothiazide 12.5 mg capsule 12.5 mg PO DAILY 08/09/23 Unkno wn History hydroxychloroquine 200 mg tablet 200 mg PO BID 08/09/23 Unknown His tory (Plaquenil) leflunomide 20 mg tablet 20 mg PO DAILY 08/09/23 Unknown Hi story levothyroxine 88 mcg tablet 88 mcg PO MOWEFR 08/09/23 11/15/24 History (Synthroid) lisinopril 20 mg tablet 20 mg PO DAILY 08/09/23 Unknown Hi story metoprolol tartrate 25 mg tablet 12.5 mg PO DAILY 08/09/23 11/15/24 History multivitamin 1 tab PO DAILY 08/09/23 Unknown Hi story omeprazole 20 mg capsule,delayed 20 mg PO DAILY 08/09/23 11/15/24 H istory release potassium chloride 10 mEq 10 meq PO BID 08/09/23 Unknown His tory tablet,extended release pravastatin 80 mg tablet 80 mg PO QHS 08/09/23 Unknown Hist ory sulfasalazine 500 mg tablet 1 g PO BID 08/09/23 Unknown Histor y aripiprazole 2 mg tablet 4 mg (2 x 2 mg) PO DAILY 90 days 0 06/05/24 Unknown Rx #180 tabs citalopram 20 mg tablet 30 mg (1.5 x 20 mg) PO DAILY 90 Unknown Rx days #135 tabs cyclobenzaprine 10 mg tablet 10 mg PO BID PRN muscle spasm 09/15 Unknown History tirzepatide 7.5 mg/0.5 mL 7.5 mg subcut QWEEK 10/12/2411/08 History subcutaneous pen injector (Mounjaro) gabapentin 400 mg capsule 400 mg PO 3XD 11/08/24 11/15/24 Hi story levothyroxine 44 mcg capsule 44 mcg PO SUTUTHSA 11/08/24 Unknow n History Allergy/AdvReac Type Severity Reaction Status Date / Time sumatriptan (From Imitrex) AdvReac Intermediate Other Verified 11/15/24 09:13 sumatriptan succinate (From AdvReac Intermediate Other Verified 11/15/24 09:13 Imitrex) Family History Mother Anxiety Breast cancer Cancer Diabetes Hypertension High cholesterol Psychiatric care Uterine cancer Father Arthritis Diabetes Hypertension High cholesterol Osteoporosis CVA (cerebral vascular accident) Other Colon cancer Depression Mental disorder Surgical History Hx of cervical spine surgery H/O gastric sleeve Previous back surgery History of carpal tunnel surgery of left wrist Gastric banding status H/O partial thyroidectomy Hx of arthroscopic knee surgery Hx of tonsillectomy Social History (more content not included)... [facility] MR/POSTOP.ANEon 11-15-2024 MR/POSTOP.[facility] Medical Records Department [address] [place] [address] Anesthesia Postop Eval I 11/15/24 113 MR#: [id number] Acct: [id number] Name: SANTOS ALLAN FRANCI Rep #: [id number] : 1965 58 From: Isa Hines CRNA PCP: Dr. Ana Bolaños MD Status:REG SDC Y Race: C Location: [place] [address] Anesthesia: Postop Eval I Current Vital Signs Temperature: 97.6 F Pulse Rate: 82 Blood Pressure: 136/88 Respiratory Rate: 16 Pulse Ox: 100 Oxygen Delivery Method: Room Air Assessment Airway patent: Yes Spontaneous unlabored respirations: Yes Mental status: Awake nausea: No Vomiting: No Anesthesia Complication: No Fluid Hydration Crystalloid volume administer (ml): 10 Total IV fluid infused: 10 Progress Note Anesthesia document: Postop Eval 1 completed: Yes 11/15/241132 Date Isa Hines SUGAR REFINER Cosigner Signature: Date CC: Signed [facility] MR/[id number] 11-15-2024 MR/POSTOPAN2 [facility] Medical Records Department [address] [place] [address] Anesthesia Postop Eval II 11/15/24 1147 MR#: [id number] Acct: [id number] Name: SANTOS ALLAN FRANCI Rep #: [id number] : 1965 58 From: Rodo Laurent MD PCP: Dr. Ana Bolaños MD Status:REG SDC Y Race: C Location: [place] [address] Anesthesia Postop Eval I Sum Postop Eval Completion status Anesthesia document: Postop Eval 1 completed: Yes Anesthesia Postop Eval I Summary Anesthesia Postop Eval I Summary: Anesthesia Postop Eval I: Assessment Summary Airway patent Yes 11/15/24 11:33 [email or web address] Spontaneous unlabored Yes 11/15/24 11:33 [email or web address] [email or web address] respirations Mental status Awake 11/15/24 11:33 [email or web address] [email or web address] nausea No 11/15/24 11:33 [email or web address] Vomiting No 11/15/24 11:33 [email or web address] Anesthesia Postop Eval I: Fluid Summary Crystalloid volume administer 10 11/15/24 11:33 [email or web address] (ml) Colloids volume administered ( ml) Blood Product volume administered (ml) Total IV fluid infused 10 11/15/24 11:33 [email or web address] Anesthesia Postop Eval I: Summary Notes Anesthesia Complication No 11/15/24 11:33 [email or web address] Anesthesia Complication Comment: Post-operative progress note Anesthesia: Postop Eval II Evaluation Mental status: Awake Pain Level: 0 nausea: No Vomiting: No 11/15/24 1147 Date Rodo Laurent MD Cosigner Signature: Date CC: Signed Normal [facility] ALBUMIN/CREATININE RATIO, UR INEon 11-10-2024 Albumin Unsp time DL <= 20 mg/L (U) [Mass/Time] <12.0 Normal [facility] Comment on above: Order Comment: Speci men Type: URINE SPECIMENOrdering Facility: [facility] Address: [address] [id number] Performed By: #### U ACR ####[facility] LABORATORYCLIA [id number] [place] [address] [place] [facility] Albumin/Creatinine (U) [Mass ratio] Normal [facility] Comment on above: Order Comment: Speci men Type: URINE SPECIMENOrdering Facility: [facility] Address: [address] [place] [address] Result Comment: Not calculated Adult Male and Female Nephrotic Criteria: <30 mg/g is considered normal to mildly increased 30-300 mg/g is considered moderately increased >300 mg/g is considered severely increased KDIGO. (2013). KDIGO 2012 Clinical Practice Guideline for the Evaluation and Management of Chronic Kidney Disease. Official Journal of the International Society of Nephrology, 3(1), 1-150. Performed By: #### U ACR ####[facility] LABORATORYCLIA [id number] [place] [id number] [place] Creatinine (U) [Mass/Vol] 26.6 mg/dL Low 42.2-237.9 [facility] Comment on above: Order Comment: Speci men Type: URINE SPECIMENOrdering Facility: [facility] Address: [address] [place] [address] Performed By: #### U ACR ####[facility] LABORATORYCLIA [id number] [place] [id number] [place] [facility] CNOVon 11-10-2024 CNOV Office Visit (INTMWS ) SANTOS ALLAN ([id number]) 1965 F Date Time Provider Department 11/10/24 8:00 AM ANA BOLAÑOS INTMWS During your visit today, we recorded the following information about you: Pulse Respiration Blood pressure Weight 85/minute 16/minute 127/83 89 kg Ana Bolaños MD 11/10/2024 9:08 AM Signed Reason for Visit Patient presents with: F/U 3 Month Santos Allan is a 58 year old female who presents here today for CPE. Health Maintenance Depression Screening Anxiety Screening BP Controlled (<130/80) Hepatitis B Vaccine(1 of 3 - 19+ 3-dose series) Pneumococcal Vaccine(3 of 3 - PCV) Cervical Cancer Screening Covid-19 Vaccine( season) Mammogram Screening HPI Santos Allan is a 58 year old female Past medical hx of Hypertension, hyperlipidemia, obesity, hypothyroidism and hypoparathyroidism . Migraine, s/p removal of lap band , ibs, GERD,sjogrens disease, peripheral neuropathy of unclear etiology, hypokalemia, bipolar 1 disorder metabolic syndrome, Sleep apnea. Patient wants us to take over caring for most of her endocrine problems. She is to see Dr. Erika Gannon but has had reasons why she would like to switch over. Most of her endocrine issues are not active for the past few years. Obesity: History of gastric sleeve surgery in 2021 and gaining weight. Walks average of 5 days a week and eats small meals but is always hungry. Has spoke with dietitian and told to eat more protein but it is not helping. Has previously saxenda which was helpful and used prior to gastric sleeve. Has tried Cosentra which does not help. Currently on Zepbound, and just started at 5 mgs, weight is on the down jimenez trend. Hypothyroidism: takes medication as ordered. Denies any abnormal changes in energy. Recent TSH in normal range HTN: Ms. Allan indicates that she is feeling well and denies any symptoms referable to elevated blood pressure. Specifically denies headache, chest pain, palpitations, dyspnea, and peripheral edema. Patient denies any side effects of her medication(s) and is compliant with their regimen. She does not check BP's generally. Last 3 Encounter BP Readings: Date: BP: 01/07/2024 113/70 09/29/2023 128/80 08/30/2023 124/80 REMIGIO: she has never been a good sleeper, has trouble falling and staying asleep, feels claustrophobic with the sleep machine on. Does not sleep well on it or off it so has stopped using it after she lost weight. She has lost around 64 pounds since her highest weight in the past 2 years, most days she feels refreshed when she wakes up , not tired. She does feel drowsy around 3 pm after lunch. Does not feel like she is dragging the whole day or drowsy the whole day. does not note snoring. Will keep a watch if she stops breathing. Has been on trazadone in the past for sleep which was helpful. Bipolar: Feels well controlled on current treatment, Sees Dr. Davies for psychiatry. Alcohol use: does not drink any alcohol Drug use: No Suicidal Thoughts: No suicidal ideation, intent or plan Sjogren: she is seeing Edilson Penn for her sjojgrens disease. 08/11/24: the potassium was low in labs of May, it was because she had stopped taking supplements and is now back on it. She had the issues with blood glucose too. She is not going to the bariatric center anymore we are giving the zepbound, she has lost around 30 pounds of weight on the medication. The food noise is calmed in her. She is exercising by walking daily. November 10, 2024 We discussed in detail sleep apnea. She is on GLP1 and lost around 60 pounds. She feels the same when she had the sleep machine, infact better in a way. With the machine it was horrid per her report,. Does feel fresh when she wakes up but in the afternoon at 3 pm she feels a little sleepy. She was on metformin for type 2 Diabetes Mellitus in the past but with weight loss she is doing better No problem-specific Assessment AND Plan notes found for this encounter. PAST MEDICAL HISTORY Diagnosis Date Acid reflux [...] Lipids Mother Diabetes Father Hypertension Father Osteoporosis (more content not included)... Normal [facility] ADALBERTO SCREENING W TOMOon 10-20 ADALBERTO SCREENING W CHUCK * * *Final Report* * * DATE OF EXAM: Oct 20 2024 7:24AM [id number] - ADALBERTO SCREENING W CHUCK / PROCEDURE REASON: Encounter for screening mammogram for breast cancer * * * * Physician Interpretation * * * * RESULT: [place] [address] [place] [address] #[id number] - ADALBERTO SCREENING W CHUCK HISTORY: 58 year-old patient seen for screening and is asymptomatic in both breasts. Patient states no personal history of breast cancer. Patient states no personal history of ovarian cancer. COMPARISON STUDIES: The present examination has been compared to a prior imaging study dated 10/08/2023 (mammogram). MAMMOGRAM TECHNIQUE: The study was acquired using full field digital technology and interpreted from soft copy. Digital Breast Tomosynthesis (DBT) images were obtained and used to assist in the interpretation of this examination. MAMMOGRAM FINDINGS: The breasts are almost entirely fatty. No suspicious masses, calcifications or other abnormalities are seen in either breast. There are no significant interval changes. IMPRESSION: There is no mammographic evidence of malignancy in either breast. Routine screening mammogram is recommended. Annual mammogram will be due in 1 year. BI-RADS Category 1: Negative RISK: Based on the Tyrer-Cuzick (TC) risk assessment model, this patient has a 18.8% lifetime risk of developing breast cancer, meaning they are at average risk for developing breast cancer. However, this is only an estimate based on available history provided on the patient's questionnaire. We encourage all patients to talk with their providers about these results, further recommendations for managing breast health, and appropriate supplemental screening options if the patient has dense breast tissue. Interpreting Radiologist: Chrissy Dale M.D. Electronically signed on: 10/21/2024 Ceramic Saw Tender: ANAI Transcribe Date/Time: Oct 20 2024 7:06A Dictated by: CHRISSY DALE MD This examination was interpreted and the report reviewed and electronically signed by: CHRISSY DALE MD on Oct 21 2024 7:17AM EST [id number] Normal [facility] Finger(s) Min 2 Viewson 09-15 Finger(s) Min 2 Views [facility] Imaging Services [address] [place], [place] [id number] Finger(s) Min 2 Views MR#: [id number] Acct: [id number] Name: SANTOS ALLAN FRANCI Rep #: [id number] : 1965 F 58 From: Nixon Perry PCP: Dr. Ana Bolaños MD Status: REG CLI Study: Finger(s) Min 2 Views Date of Exam: 10/12/24 Exam# [id number] Ordering Dr: Denver Casillas MD PROCEDURE: FINGER(S) MIN 2 VIEWS REASON FOR EXAM: Painful cyst, reportedly located of the distal interphalangeal joint region. TECHNIQUE: Three-view left 2nd finger COMPARISON: None RAD/Finger(s) Min 2 Views IMPRESSION: Mild degenerative changes are seen in the left 2nd distal interphalangeal joint. Soft tissue prominence is seen the medial aspect of the distal interphalangeal joint. No osseous erosive process is seen. No fracture, dislocation, or other significant osseous changes are noted.. Reading Location: [address] CC: Dr. Ana Bolaños MD; Dr. Denver Casillas MD Ceramic Saw Tender: Signed Normal [facility] Plastic Surgery Visit Report on 10-12-2024 Plastic Surgery Visit Report [facility]astic [facility] Surgery [address], [address] [place] [address] OFFICE VISIT Date of Service: 10/12/24 MR#: [id number] Acct: [id number] Name: SANTOS ALLAN FRANCI Rep #: [id number] : 1965 Provider: Dr. Denver Casillas MD Age/Sex: 58/F Location: [facility] Status: Signed Intake Vital Signs 3 08/09/24 15:54 10/12/24 15:51 Height 5 ft 6.75 in 5 ft 6 in Weight: 199 lb 8 oz BMI 32.1 BP 139/84 H 116/80 Blood Pressure Location Lt brachial Rt brachial Position Sitting Sitting Respiration 16 18 Pulse 97 90 Pulse Source Monitor Temp 97.9 F Temp Source Oral Pulse Oximetry (%) 96 Oxygen Delivery Method room air Intake Visit Reasons: CYST ON FINGER Chief Complaint: cyst on left index finger Is patient in pain?: Yes (01/20) Allergies topiramate (From Topamax) Allergy (Verified 10/12/24 15:53) Swelling sumatriptan (From Imitrex) Adverse Reaction (Intermediate, Verified 10/12/24 15:53) Other sumatriptan succinate (From Imitrex) Adverse Reaction (Intermediate, Verified 10/12/24 15:53) Other Medications 3 ???Medication ???Instructions ???Recorded ???Confirmed ???Type calcium 600 mg (as 1 tab PO DAILY@0800 06/23/1308/09 History carbonate)-vitamin D3 20 mcg (800 unit) tablet (Caltrate with Vitamin D3) cholecalciferol (vitamin D3) 50 2,000 unit PO DAILY 06/23/1308/09 History mcg (2,000 unit) tablet (Vitamin D3) eletriptan 20 mg tablet (Relpax) 20 mg PO .X1 PRN 06/23/13 08/09/24 History multivitamin with folic acid 400 1 tab PO DAILY 06/23/13 08/09/24 H istory mcg tablet (Thera) sodium fluoride 1.1 %-potassium 100 ml DT DAILY 06/23/13 08/09/24 History nitrate 5 % dental paste (PreviDent 5000 Sensitive) calcium carbonate (Calcium 600) 600 mg PO DAILY 08/09/23 08/09/24 History cevimeline 30 mg capsule (Evoxac) 30 mg PO BID 08/09/23 08/09/24 Hi story hydrochlorothiazide 12.5 mg capsule mg PO 08/09/23 08/09/24 History hydroxychloroquine 200 mg tablet 200 mg PO BID 08/09/23 08/09/24 Hi story (Plaquenil) leflunomide 20 mg tablet mg PO DAILY 08/09/23 08/09/24 Hist ory levothyroxine 88 mcg tablet mcg PO .T, Th, Sa, S u 08/09/23 History (Synthroid) lisinopril 20 mg tablet mg PO 08/09/23 08/09/24 History metoprolol tartrate 25 mg tablet mg PO 08/09/23 08/09/24 History multivitamin 1 tab PO DAILY 08/09/23 08/09/24 H istory omeprazole 20 mg capsule,delayed mg PO 08/09/23 08/09/24 History release potassium chloride 10 mEq meq PO 08/09/23 08/09/24 History tablet,extended release pravastatin 80 mg tablet mg PO 08/09/23 08/09/24 History sulfasalazine 500 mg tablet 1 g PO BID 08/09/23 08/09/24 Histo ry gabapentin 100 mg capsule 300 mg PO TID 11/10/23 10/12/24 Hi story aripiprazole 2 mg tablet 4 mg (2 x 2 mg) PO DAILY 90 days 0 06/05/24 10/12/24 Rx #180 tabs citalopram 20 mg tablet 30 mg (1.5 x 20 mg) PO DAILY 90 10/12/24 Rx days #135 tabs cyclobenzaprine 10 mg tablet 10 mg PO BID PRN muscle spasm 09/1510/12/24 History tirzepatide 7.5 mg/0.5 mL 7.5 mg subcut QWEEK 10/12/2410/12 History subcutaneous pen injector (Jimmy) Nurse's Note: pt referred to the practice from [facility], pt presents with left index finger cyst PFSH Medical History JINNY (generalized anxiety disorder) Bipolar II disorder Sjogrens syndrome Fibromyalgia Vitamin deficiency Pneumonia Osteoarthritis Neuropathy IBS (irritable bowel syndrome) High triglycerides High cholesterol Hypertension Migraines Gastrointestinal problem Diabetes Carpal tunnel syndrome Bone fracture Back problem Arthritis Anemia Surgical History H/O gastric sleeve Previous back surgery History of carpal tunnel surgery of left wrist Gastric banding status H/O partial thyroidectomy Hx of arthroscopic knee surgery Hx of tonsillectomy Family History Mother Anxiety Breast cancer Cancer Diabetes Hypertension High cholesterol Psychiatric care Uterine cancer Father Arthritis Diabetes Hypertension High cholesterol Osteoporosis CVA (cerebral vascular accident) Other Colon cancer Depression Mental disorder Social History Smoking Status: Former smoker how long ago did patient quit smoking: quit 22 years ago alcohol intake: current details: 1-2 drinks, 1-2x month substance use type: does not use what type of physical activity do you participate in: walking frequency: 3-4 times per week additional social history: pt d (more content not included)... [facility] 09-05-2024 [facility] Office Visit (OBGYWM ) SANTOS ALLAN ([id number]) 1965 F Date Time Provider Department 09/05/24 7:00 AM KATARINA GUILLORY OBLETICIAWBarb During your visit today, we recorded the following information about you: Blood pressure Weight Height 124/72 95.3 kg 1.682 m Katarina Guillory APRN.CNP 09/05/2024 7:31 AM Signed Patient declined stencil printerBarry Valencia is a 58 year old who presents for an annual gynecologic exam without complaints. Postmenopausal: Yes since 2019 HRT use: No. Still get period: No LMP: 2019 approx Menopause symptoms: Vaginal dryness control frequency: Never HPV vaccine: No; Last pap smear: 08/28/2022, negative History of abnormal pap: No, all prior PAP smears have been normal Bothersome pelvic pain: No Last mammogram: 2023 normal History of abnormal mammogram: No OB History T0 L0 SAB0 IAB0 Ectopic0 Multiple0 Live Births0 Nursing Unit Manager History LMP: 02/13/2019 (Approximate), Postmenopausal Age at Menar[age] Age at First : Age at Menopause: Nursing Unit Manager History Comments: Sexual Activity: Not Currently; Male Contraception: No contraception data on record [...] Social History Tobacco Use Smoking status: Former Current packs/day: 0.00 Average packs/day: 0.5 packs/day for 20.0 years (10.0 ttl pk-yrs) Types: Cigarettes Start date: 06/14/1983 Quit date: 06/14/2003 Years since quittin.2 Passive exposure: Never Smokeless tobacco: Never Vaping Use Vaping status: Never Used Substance Use Topics Alcohol use: Yes Comment: social Drug use: No REVIEW OF SYSTEMS Abdomen: No abdominal pain, nausea, vomiting, diarrhea, or constipation. No bloating, early satiety, indigestion, or increased flatulence. Bladder: No dysuria, gross hematuria, urinary frequency, +urinary urgency +incontinence Breast: No breast lumps, nipple d/c, overlying skin changes, redness or skin retraction Allergies and current medication updated:Yes SENSITIVE EXAM: The sensitive examination was discussed with the Patient or Patient's Authorized Jumpbasting Collar Baster. As applicable, any other physician, advance practice provider, medical student, or other health professional student that will be observing or involved in the sensitive examination for educational or training purposes was discussed with the Patient or Authorized Jumpbasting Collar Baster. The Patient or Authorized Jumpbasting Collar Baster has agreed to proceed with the sensitive examination. (Sensitive examination includes inspection and/or palpation of the breasts, pelvis, prostate and anorectal regions). EXAM: BP 124/72 Ht 5' 6.22 (1.68m) Wt 210 lb 3.2 oz (95.3kg) LMP 02/13/2019 BMI 33.70 kg/(m2). GENERAL: pleasant, female in no apparent distress HEENT: Normocephalic, atraumatic, mucus membranes moist, and no lesions DERMATOLOGY: Normal, without lesions, non-icteric, and non-hirsute MARICRUZ (more content not included)... Normal [facility] Miguel 08-23-2024 [facility] Telephone (INTMWS) SANTOS ALLAN ([id number]) 1965 F Date Time Provider Department 08/23/24 ANA BOLAÑOS INTWS During your visit today, we recorded the following information about you: Alison Kumari LPN 08/23/2024 4:17 PM Signed Spoke with pt and she was not able to get the Zepbound but was able to get Mounjaro. Please remove Zepbound from pt's med list. Alison Kumari LPN Allergies As of Date: 08/23/2024 Noted Allergy Reaction IMITREX (SUMATRIPTAN) 07/25/2007 Comments: Face went numb Date Reviewed: 08/11/2024 Reviewed by: Xochitl Menon LPN - Fully Assessed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 LDL Cholesterol levels are recommended to be < 70 mg/dL Cholesterol in LDL/Cholesterol in HDL [Mass ratio] 2.12 {ratio} NINF - 2.54 [facility] Comment on above: Reference: 1. National Cholesterol Education Program ATP III Guideline At-A-Glance Quick Desk Reference: National Heart, Lung, and Blood Converse. National Institutes of Health. 2001: NIH Publication No. 01-3305. 2. An International Atherosclerosis Society position paper: global recommendations for the management of dyslipidemia: executive summary, Atherosclerosis. 2014: 232(2):410-413. Cholesterol in VLDL [Mass/Vol] 38 mg/dL High NINF - 30 mg/dL [facility] Cholesterol non HDL [Mass/Vol] 142 mg/dL High NINF - 130 mg/dL [facility] Comment on above: <130 mg/dL, Optimal 130-159 mg/dL, Near optimal/above optimal 160-189 mg/dL, Borderline high 190-219 mg/dL, High >219 mg/dL, Very high Secondary prevention optimal non HDL Cholesterol levels are recommended to be <100 mg/dL Cholesterol.total/C holesterol in HDL [Mass ratio] 3.90 {ratio} NINF - 5.10 [facility] Fasting Time 7 hrs [facility] Triglyceride [Mass/Vol] 190 mg/dL High NINF - 150 mg/dL [facility] Comment on above: <150 mg/dL, Normal 150-199 mg/dL, Borderline high 200-499 mg/dL, High >499 mg/dL, Very high No Panel Informationon 01-18 Interpretation and review of laboratory results Abnormal [facility] 36on 09-07-2023 36 DOS 09/02/22 LSG w/ HH JZ TFU BAND 2008 at [place] 11/18/21 Lap removal of gastric band JZ Last OV-09/02/23 with JZ, next 03/03/24 with NK Per last OV note: 2). Continue to monitor for signs and symptoms of GERD / Continue PPI Order sent Normal [facility] Office Visiton 09-02-2023 Follow-up visit [id number] Nicole Allan 1965 F Date Provider Department Center 09/02/2023 [id number] [facility] None Family History Problem Relation Age of Onset Cancer Father Stroke Father Hypertension Father Hyperlipidemia Paternal Grandfather Obesity Mother Diabetes Mother Hyperlipidemia Mother Cancer Mother Obesity Brother Obesity Father Hyperlipidemia Brother Hyperlipidemia Father Hyperlipidemia Maternal Grandmother Diabetes Father Hypertension Mother Hypertension Brother Obesity Paternal Grandfather Diabetes Brother Diabetes Maternal Grandmother Hypertension Maternal Grandmother Hyperlipidemia Paternal Grandmother Obesity Maternal Grandmother Hypertension Paternal Grandfather Hypertension Paternal Grandmother Obesity Paternal Grandmother Family Status - Relation Status Age at Father Paternal Grandfather Mother Brother Maternal Grandmother Paternal Grandmother Level of Service:26102 AL OFFICE/OUTPATIENT ESTABLISHED LOW MDM 20 MIN Reason for Visit and Comments: Bariatrics Post Op Follow-up [884] - 12M Normal [facility] Progress Noteon 09-02-2023 Progress Note [facility] SURGICAL PROGRAM Patient: Santos Graevsmuralisangita Date of : 1965 Service Date: 09/02/2023 [...] BP 128/83 Pulse 85 Temp (!) 35.8 ?C (96.5 ?F) Resp 16 Ht 5' 6.25 (1.683 m) Wt 229 lb (104 kg) BMI 36.68 kg/m? General: This patient is awake, alert, and [...] excess calories with serious comorbidity and body mas (more content not included)... Normal [facility] Progress Note [facility] > 6 MONTH POST-OPERATIVE DIETITIAN VISIT Date: 09/02/23 Patient's weight decreased by: 43.8 lbs Patient does consume 5-6 small meals daily Patient?s portions are adequate for current diet: ?-1 cup Protein requirements discussed- currently consuming 70-90 [...] questions. Visit completed by: Marilou Clifton RD [facility] 36on 07-28-2023 36 DOS 09/02/22 GERMANG w/ HH CHRISTOPHER TFU BAND 2007 at [place] 11/18/21 Lap removal of gastric band CHRISTOPHER Lst OV-04/05/23 with MZ, next 09/02/23 with CHRISTOPHER Per last OV note: Denies GERD since being off PPI for about a month. Order declined. [facility] 36on 05-28-2023 36 DOS 09/02/22 LSG w/ HH JZ TFU BAND 2008 at [place] 11/18/21 Lap removal of gastric band JZ Last OV-04/05/23 with MZ, next 09/02/23 with JZ Per last OV note, pt PPI was d/c'd and pt was instructed to call the office with development of s/s. Will route to PA for review of pt request for rx d/t s/s [facility] Office Visiton 04-05-2023 Follow-up visit [id number] Nicole Allan 1965 F Date Provider Department Center 04/05/2023 [id number]-EOJFFGARRET BURT BCC SURG None Family History Problem Relation Age of Onset Cancer Father Stroke Father Hypertension Father Hyperlipidemia Paternal Grandfather Obesity Mother Diabetes Mother Hyperlipidemia Mother Cancer Mother Obesity Brother Obesity Father Hyperlipidemia Brother Hyperlipidemia Father Hyperlipidemia Maternal Grandmother Diabetes Father Hypertension Mother Hypertension Brother Obesity Paternal Grandfather Diabetes Brother Diabetes Maternal Grandmother Hypertension Maternal Grandmother Hyperlipidemia Paternal Grandmother Obesity Maternal Grandmother Hypertension Paternal Grandfather Hypertension Paternal Grandmother Obesity Paternal Grandmother Family Status - Relation Status Age at Father Paternal Grandfather Mother Brother Maternal Grandmother Paternal Grandmother Level of Service:72630 AL OFFICE/OUTPATIENT ESTABLISHED MOD MDM 30-39 MIN Reason for Visit and Comments: Bariatrics Post Op Follow-up [884] - 6M [facility] Progress Noteon 04-05-2023 Progress Note HPI, PHYSICAL EXAMIN ATION & PLAN POST-OP HPI: Patient here today [...] BP 119/84 Pulse 94 Temp (!) 35.6 ?C (96.1 ?F) Resp 16 Ht 5' 7 (1.702 m) Wt 212 lb 6.4 oz (96.3 kg) BMI 33.27 kg/m? General: This patient is awake, alert, and [...] this Req. Please send results to: Ana Bolaños MD - [address] [facility] [address] - [phone] And if not done at a [facility], please send to: [place] [address] Patient Name: Santos Myricktristen - 1965 Order Created by : Kristina Dillard MA Standing Status: Future Standing Expiration Date: 04/05/2024 Folate These orders are set for an approximate date - they can be drawn up to 3 months prior to the Expected Date on this Req. Please send results to: Ana Bolaños MD - [address] [facility] [address] - [phone] And if not done at a [facility], please send to: [address] [address] Patient Name: Santos Gravesfahad - 1965 Order Created by : Kristina Dillard MA Standing Status: Future Standing Expiration Date: 04/05/2024 Iron These orders are set for an approximate date - they can be drawn up to 3 months prior to the Expected Date on this Req. Please send results to: MD Simon Stone [address] [facility] [address] - [phone] And if not done at a [facility], please send to: [address], [address] Patient Name: Santos Allan - 1965 Order Created by : Kristina Dillard MA Standing Status: Future Standing Expiration (more content not included)... [facility] Progress Note [facility] > 6 MONTH POST-OPERATIVE DIETITIAN VISIT Date: 04/05/23 Patient's weight decreased by: 60.4 lbs Patient does consume 5-6 small meals daily Patient?s portions are adequate for current diet: ?-1 cup Protein requirements discussed- currently consuming 65 [...] well overall. Patient instructed to call or Site[employer] message with any questions or concerns Visit completed by: Heidi Whitaker MS, RDN, LD [facility] 36on 02-22-2023 36 DOS 09/02/22 LSG w/ HH JZ TFU BAND 2007 at [place] 11/18/21 Lap removal of gastric band JZ Last OV-12/02/22 with MZ, next 04/02/23 with MZ Rx sent to pharmacy as per the last note, pt should remain on PPI while on therapy from the dentist. [place] Normal [facility] Basophil percentageOrdered B y: Dr. Newton on 01-12-2023 Potassium [Moles/Vol] 3.5 mmol/L 3.5-5.1 [facility] Laboratory - Chemistry and C hemistry - challengeOrdered By: Dr. Newton on 01-12-2023 Magnesium [Mass/Vol] 2.1 mg/dL 1.6-2.6 [facility] Basophil percentageOrdered B y: Dr. Newton on 01-06-2023 Chloride [Moles/Vol] 109 mmol/L 98-107 [facility] Glucose [Mass/Vol] 81 mg/dL 74-106 [facility] Potassium [Moles/Vol] 3.2 mmol/L 3.5-5.1 [facility] Sodium [Moles/Vol] 139 mmol/L 136-145 [facility] Laboratory - Chemistry and C hemistry - challengeOrdered By: Dr. Newton on 01-06-2023 CO2 [Moles/Vol] 27.0 mmol/L 21.0-32.0 [facility] Urea nitrogen/Creatinine [Mass ratio] 20.5 mg/mg 10-20 [facility] No Panel InformationOrdered By: Dr. Newton on 01-06-2023 Estimated GFR (MDRD) Amer 152 mL/min >60 [facility] Comment on above: GFR Calc Estimated GFR (MDRD) Non-Af Amer 126 mL/min >60 [facility] Comment on above: Non- GFR Calc Serum or plasma calcium andrés urement (mass/volume)Ordered By: Dr. Newton on 01-06-2023 Calcium [Mass/Vol] 9.1 mg/dL 8.5-10.1 [facility] Serum or plasma creatinine m easurement (mass/volume)Ordered By: Dr. Newton on 01-06-2023 Creatinine [Mass/Vol] 0.54 mg/dL 0.55-1.02 [facility] Comment on above: The validity of the calculated GFR & GFRAA in patients over 70 years has not been determined. Clinical correlation is essential. Serum or plasma urea nitroge n measurement (mass/volume)Ordered By: Dr. Newton on 01-06-2023 Urea nitrogen [Mass/Vol] 11 mg/dL 7-18 [facility] Thin prep Papanicolaou smear with manual screeningOrdered By: Dr. Newton on 01-06-2023 Thin prep Papanicolaou smear with manual screening 3 5-15 [facility] Whole blood hemoglobin A1c/t otal hemoglobin ratio (mass fraction)Ordered By: Dr. Newton on 01-06-2023 HbA1c (Bld) [Mass fraction] 4.4 % 3.8-5.6 [facility] Comment on above: Normal < 5.7 % Predi abetic 5.7 - 6.4 % Diabetic >or= 6.5 % Please note range changes. HEMOGLOBIN A1C (POC)on 12-04 HbA1c (Bld) [Mass fraction] 4.7 % 4.2 - 5.6 % [facility] Office Visiton 12-02-2022 Follow-up visit [id number] Nicole Allan 1965 F Date Provider Department Center 12/02/2022 [id number]-AZGOMGARRET BURT [facility] B[facility] SURG None Family History Problem Relation Age of Onset Cancer Father Stroke Father Hypertension Father Hyperlipidemia Paternal Grandfather Obesity Mother Diabetes Mother Hyperlipidemia Mother Cancer Mother Obesity Brother Obesity Father Hyperlipidemia Brother Hyperlipidemia Father Hyperlipidemia Maternal Grandmother Diabetes Father Hypertension Mother Hypertension Brother Obesity Paternal Grandfather Diabetes Brother Diabetes Maternal Grandmother Hypertension Maternal Grandmother Hyperlipidemia Paternal Grandmother Obesity Maternal Grandmother Hypertension Paternal Grandfather Hypertension Paternal Grandmother Obesity Paternal Grandmother Family Status - Relation Status Age at Father Paternal Grandfather Mother Brother Maternal Grandmother Paternal Grandmother Level of Service:59489 AL OFFICE/OUTPATIENT ESTABLISHED MOD MDM 30-39 MIN Reason for Visit and Comments: Bariatrics Post Op Follow-up [884] - 3m Normal [facility] Progress Noteon 12-02-2022 Progress Note HPI, PHYSICAL EXAMIN ATION & PLAN POST-OP HPI: Patient here today [...] Examination: BP 123/78 Pulse 98 Temp 35.6 ?C (96 ?F) Resp 16 Ht 5' 7 (1.702 m) Wt 228 lb 6.4 oz (104 kg) BMI 35.77 kg/m? General: This patient is awake, alert, and [...] Please send results to: MD Simon Stone [facility] [address] - [phone] And if not done at a [facility], please send to: [address], [address] Patient Name: Santos Allan - 1965 Order Created by : Kristina Dillard MA Standing Status: Future Standing Expiration Date: 12/03/2023 Folate These orders are set for an approximate date - they can be drawn up to 3 months prior to the Expected Date on this Req. Please send results to: MD Simon Stone [facility] [address] - [phone] And if not done at a [facility], please send to: [place] [address] Patient Name: Santos Allan - 1965 Order Created by : Kristina Dillard MA Standing Status: Future Standing Expiration Date: 12/03/2023 Iron These orders are set for an approximate date - they can be drawn up to 3 months prior to the Expected Date on this Req. Please send results to: MD Simon Stone [facility] [address] - [phone] And if not done at a [facility], please send to: [place] [phone] Patient Name: Santos Allan - 1965 Order Created by : Kristina Dillard MA Standing Status: Future Standing Expiration Date: 12/03/2023 Ferritin These orders are set for an approximate date - they can be drawn up to 3 months prior to the Expected Date on this Req. Please send results to: MD Simon Stone [facility] [id number] - [phone] And if not done at a [facility], please send to: [facility] - [address], [address] - [place], [address] Patient Name: Santos Allan - 1965 Order Created by : Kristina Dillard MA Standing Status: Future Standing Expiration Date: 12/03/2023 Magnesium These orders are set for an appr (more content not included)... Normal [facility] Progress Note [facility] 3 MONTH POST-OPERATIVE DIETITIAN VISIT Date: 12/02/22 Current diet reviewed with patient. Soft and maintenance diets discussed and. handouts provided. Patient's weight decreased by: -44.4 lbs Patient consumes 5-6 small meals daily: Yes Patient?s portions are adequate for current diet: ?-1 cup Protein requirements discussed- currently consuming 65+ [...] arise. Visit completed by: Lorena Alexis RD [facility] Absolute lymphocyte countOrd ered By: EDILSON PENN on 11-13-2022 Lymphocytes Auto (Unsp spec) [#/Vol] 1.97 10*3/uL 0.83-4.51 [facility] Basophil percentageOrdered B y: EDILSON PENN on 11-13-2022 Basophils/100 WBC (Bld) 0.5 % 0-1 [facility] Bilirubin [Mass/Vol] 0.40 mg/dL 0.20-1.00 [facility] Comment on above: For patients on eltr ombopag therapy, use of Dimension [place] TBIL is not recommended. Chloride [Moles/Vol] 103 mmol/L 98-107 [facility] Eosinophils/100 WBC (Bld) 2.5 % 0-5 [facility] Glucose [Mass/Vol] 108 mg/dL 74-106 [facility] Comment on above: Fasting Glucose resu lt from 100 to 125 mg/dL suggests IMPAIRED HOMEOSTASIS per A.D.A. criteria. Neutrophils (Bld) [#/Vol] 3.0 10*3/uL 2.0-7.7 [facility] Neutrophils/100 WBC (Bld) 54.0 % 47-70 [facility] Potassium [Moles/Vol] 3.5 mmol/L 3.5-5.1 [facility] Protein [Mass/Vol] 7.5 g/dL 6.4-8.2 [facility] Sodium [Moles/Vol] 139 mmol/L 136-145 [facility] WBC (Bld) [#/Vol] 5.6 10*3/uL 4.4-11.0 [facility] Blood erythrocytes count (nu mber/volume)Ordered By: EDILSON PENN on 11-13-2022 RBC (Bld) [#/Vol] 4.35 10*6/uL 4.2-5.4 [facility] Blood hemoglobin measurement (mass/volume)Ordered By: EDILSON PENN on 11-13-2022 Hemoglobin (Bld) [Mass/Vol] 13.3 g/dL 12.0-15.0 [facility] Blood lymphocytes/100 leukoc ytesOrdered By: EDILSON PENN on 11-13-2022 Lymphocytes/100 WBC (Bld) 35.4 % 19-41 [facility] Blood monocytes/100 leukocyt esOrdered By: EDILSON PENN on 11-13-2022 Monocytes/100 WBC (Bld) 7.2 % 0-10 [facility] Blood platelet mean volumeOr dered By: EDILSON PENN on 11-13-2022 Platelet mean volume (Bld) [Entitic vol] 9.9 fL 6.2-12.0 [facility] Determination of erythrocyte mean corpuscular volume (MCV)Ordered By: EDILSON PENN on 11-13-2022 MCV (RBC) [Entitic vol] 94.7 fL 81-99 [facility] Erythrocyte sedimentation ra teOrdered By: EDILSON PENN on 11-13-2022 ESR (Bld) [Velocity] 13 mm/h 0-30 [facility] Hematocrit Auto (Bld) [Volum e fraction]Ordered By: EDILSON PENN on 11-13-2022 Hematocrit (Bld) [Volume fraction] 41.2 % 37-47 [facility] Iron measurement (mass/mass) Ordered By: EDILSON PENN on 11-13-2022 Iron (Unsp spec) [Mass/Mass] 71 ug/dL 50-170 [facility] Laboratory - Chemistry and C hemistry - challengeOrdered By: EDILSON PENN on 11-13-2022 ALP [Catalytic activity/Vol] 85 U/L 45-117 [facility] ALT [Catalytic activity/Vol] 37 U/L 13-56 [facility] CO2 [Moles/Vol] 29.0 mmol/L 21.0-32.0 [facility] Cobalamin (Vitamin B12) [Mass/Vol] 1818 pg/mL 211-911 [facility] Globulin (S) [Mass/Vol] 3.5 g/dL 2.2-4.2 [facility] Magnesium [Mass/Vol] 2.1 mg/dL 1.6-2.6 [facility] Urea nitrogen/Creatinine [Mass ratio] 18.9 mg/mg 10-20 [facility] Laboratory - Hematology and Cell countsOrdered By: EDILSON PENN on 11-13-2022 Erythrocyte distribution width (RBC) [Entitic vol] 48.4 fL 35.1-43.9 [facility] Erythrocyte distribution width (RBC) [Ratio] 13.9 % 11.6-14.6 [facility] Immature granulocytes/100 WBC (Bld) 0.400 % 0.0-0.9 [facility] Comment on above: IG% - Immature Granu locytes (promyelocytes, myelocytes and metamyelocytes) > 1% indicates that a LEFT SHIFT is Present. MCH (RBC) [Entitic mass] 30.6 pg 27.0-32.0 [facility] Nucleated RBC/100 WBC (Bld) [Ratio] 0 % 0-5 [facility] MCHC Auto (RBC) [Mass/Vol]Or dered By: EDILSON PENN on 11-13-2022 MCHC (RBC) [Mass/Vol] 32.3 g/dL 32-36 [facility] No Panel InformationOrdered By: EDILSON PENN on 11-13-2022 Estimated GFR (MDRD) Amer 114 mL/min >60 [facility] Comment on above: GFR Calc Estimated GFR (MDRD) Non-Af Amer 94 mL/min >60 [facility] Comment on above: Non- GFR Calc Platelets bldOrdered By: LUZ PENN on 11-13-2022 Platelets (Bld) [#/Vol] 282 10*3/uL 150-450 [facility] Serum DNA double strand anti body assay (units/volume)Ordered By: EDILSON PENN on 11-13-2022 DNA double strand Ab Qn (S) [IU]/mL 0-9 [facility] Comment on above: Negative <5 Equivoca l 5 - 9 Positive >9Performed at: [facility] [id number] Director: Mesfin Odell PhD, Phone: [phone] Serum or plasma C reactive p rotein measurement (mass/volume)Ordered By: EDILSON PENN on 11-13-2022 CRP [Mass/Vol] mg/L 0.0-3.0 [facility] Comment on above: C-Reactive Protein ( CRP) provides useful information for thediagnosis, therapy and monitoring of inflammatory processesand associated diseases. For the evaluation of Relative Riskfor Cardiovascular Disease, a High Sensitivity CRP (HSCRP)should be ordered. Serum or plasma albumin andrés urement (mass/volume)Ordered By: EDILSON PENN on 11-13-2022 Albumin [Mass/Vol] 4.0 g/dL 3.2-5.0 [facility] Serum or plasma albumin/glob ulin mass ratioOrdered By: EDILSON PENN on 11-13-2022 Albumin/Globulin [Mass ratio] 1.1 {ratio} 0.9-2.4 [facility] Serum or plasma calcium andrés urement (mass/volume)Ordered By: EDILSON PENN on 11-13-2022 Calcium [Mass/Vol] 9.7 mg/dL 8.5-10.1 [facility] Serum or plasma complement C 3 measurement (mass/volume)Ordered By: EDILSON PENN on 11-13-2022 Complement C3 [Mass/Vol] 167 mg/dL 82-167 [facility] Serum or plasma complement C 4 measurement (mass/volume)Ordered By: EDILSON PENN on 11-13-2022 Complement C4 [Mass/Vol] 41 mg/dL 12-38 [facility] Serum or plasma creatinine m easurement (mass/volume)Ordered By: EDILSON PENN on 11-13-2022 Creatinine [Mass/Vol] 0.69 mg/dL 0.55-1.02 [facility] Comment on above: The validity of the calculated GFR & GFRAA in patients over 70 years has not been determined. Clinical correlation is essential. Serum or plasma ferritin day surement (mass/volume)Ordered By: EDILSON PENN on 11-13-2022 Ferritin [Mass/Vol] 131 ng/mL 8-252 [facility] Serum or plasma folate measu rement (mass/volume)Ordered By: EDILSON PENN on 11-13-2022 Folate [Mass/Vol] 61.00 ng/mL 3.1-55.4 [facility] Serum or plasma urea nitroge n measurement (mass/volume)Ordered By: EDILSON PENN on 11-13-2022 Urea nitrogen [Mass/Vol] 13 mg/dL 7-18 [facility] Serum or plasma zinc measure ment (mass/volume)Ordered By: EDILSON PENN on 11-13-2022 Zinc [Mass/Vol] 98 ug/dL 44-115 [facility] Comment on above: Detection Limit = 5P erformed at: [address] [id number] Director: Mesfin Odell PhD, Phone: [phone] at: [facility] [id number] Director: Pranav Aparicio MD, Phone: [phone] Thin prep Papanicolaou smear with manual screeningOrdered By: EDILSON PENN on 11-13-2022 Thin prep Papanicolaou smear with manual screening 23 U/L 15-37 [facility] Thin prep Papanicolaou smear with manual screening 7 5-15 [facility] 36on 11-06-2022 [address] Angel Mcdermott S [facility] 36 DOS 09/02/22 LSG w/ HH JZ TFU BAND 2008 at [place] - [place]RISTOPHER [place] IN FULL. MB 11/18/21 Lap removal of gastric band JZ Last OV-10/08/22 w MZ, next 12/02/22 w MZ Therapy complete after 3 months of treatment. Order declined as original RX contained enough refills to complete treatment. [facility] Basophil percentageOrdered B y: GARRET BURT on 10-10-2022 Potassium [Moles/Vol] 4.2 mmol/L 3.5-5.1 [facility] Office Visiton 10-08-2022 Follow-up visit [id number] Nicole Allan 1965 F Date Provider Department Center 10/08/2022 [id number] MOCTEZUMA BCC SURG None Family History Problem Relation Age of Onset Cancer Father Stroke Father Hypertension Father Hyperlipidemia Paternal Grandfather Obesity Mother Diabetes Mother Hyperlipidemia Mother Cancer Mother Obesity Brother Obesity Father Hyperlipidemia Brother Hyperlipidemia Father Hyperlipidemia Maternal Grandmother Diabetes Father Hypertension Mother Hypertension Brother Obesity Paternal Grandfather Diabetes Brother Diabetes Maternal Grandmother Hypertension Maternal Grandmother Hyperlipidemia Paternal Grandmother Obesity Maternal Grandmother Hypertension Paternal Grandfather Hypertension Paternal Grandmother Obesity Paternal Grandmother Family Status - Relation Status Age at Father Paternal Grandfather Mother Brother Maternal Grandmother Paternal Grandmother Level of Service:76765 AL POSTOP FOLLOW UP VISIT RELATED TO ORIGINAL PX Reason for Visit and Comments: Bariatrics Post Op Follow-up [884] - 1M [facility] Progress Noteon 10-08-2022 Progress Note [facility] 1 MONTH POST-OPERATIVE DIETITIAN VISIT Date: 10/08/22 Current diet reviewed with patient. Soft and maintenance diets discussed and. handouts provided. Patient's weight decreased by: 24 lbs Patient does consume 5-6 small meals daily: Patient?s portions are adequate for current diet: ?-1 cup Protein requirements discussed- currently consuming 65 grams of protein daily. Current protein sources: yogurt, eggs, peanut butter, pot roast, chicken, fish, cottage cheese, refried beans, protein shake Recommendations:none Fluid requirements discussed. Current Fluid Intake: 64-80 oz Patient does drink sugar-free, caffeine-free and carbonation-free fluids only. Patient does wait 30 minutes before and after meals to drink Exercise activities discussed. Patient does currently exercising. She was reminded that regular [...] Changes: Pt compliant with vitamin/mineral protocol. Labs noted and addressed by this RD-see TE 10/02/2022. Pt reports has increased high K foods as advised. Pt to have repeat K this week-will monitor. Lab req printed and given to pt today. Notes/Comments: Pt doing well. Pt to advance to maintenance diet. Pt encouraged to call/MyChart with questions. Visit completed by: Marilou Clifton RD Normal [facility] Progress Note [facility] SURGICAL PRO[facility] Patient: Santos Allan Date of : 1965 Service Date: 10/08/2022 HPI: Patient here today for 1 month post-weight loss surgery follow up She is feeling well. Denies nausea, vomiting, dysphagia, or any GERD Sx. Currently is on a PPI. Patient states diet and exercise is going fairly well. Currently is eating 65-75 gm/day protein, and is compliant with prescribed multivitamins and supplements. Vital signs are stable. Labs were Completed. All labs were: normal Physical Examination: BP 127/72 Pulse 105 Temp 34.9 ?C (94.9 ?F) Resp 18 Ht 5' 7 (1.702 m) Comment: bcc Wt 248 lb 12.8 oz (113 kg) BMI 38.97 kg/m? General: This patient is awake, alert, and oriented, and is in no apparent distress. Respiratory: Non-labored breathing Abdomen: Obese, soft, non-tender, non-distended without masses/ No evidence of abdominal hernia / Incisions consistent with previous surgeries. Extremities: No cyanosis, clubbing or edema/ No calf tenderness/No restrictions of movement, is ambulatory without assistance. Surgical site: clean, dry, intact, and nontender Drainage from surgical site: none Patient does not have a superficial incisional SSI Current Medications: Patient's Medications New Prescriptions No [...] noon and 200 mg in the evening. KRILL OIL 1000 MG CAPSULE Take 1,000 mg by mouth in the morning. LEFLUNOMIDE (ARAVA) 20 MG TABLET daily. LEVOTHYROXINE (SYNTHROID, LEVOXYL) 88 MCG TABLET Take 88 mcg by mouth daily. LISINOPRIL 20 MG TABLET twice a day. METOPROLOL SUCCINATE XL (TOPROL-XL) 25 MG 24 HR TABLET NYSTATIN (MYCOSTATIN) 271959 UNIT/ML SUSPENSION Swish and spit 5 mL (500,000 Units) 3 times daily. Swish and spit 5 mLs by mouth three times daily for 10 days. OMEPRAZOLE (PRILOSEC) [address] CAPSULE Take 1 capsule (20 mg) by mouth daily. Do not crush or chew. For postop RESPIRATORY THERAPY SUPPLIES (CARETOUCH CPAP & BIPAP HOSE) MISC 12-20 cm Nightly. SEMAGLUTIDE (OZEMPIC, 0.25 OR 0.5 MG/DOSE, SC) Inject under the skin 1 (one) time per week. 0.25 mg On SULFASALAZINE (AZULFIDINE) 500 MG EC TABLET Take 1,000 mg by mouth in the morning and 1,000 mg before bedtime. UBIQUINOL 200 MG CAPSULE Take 200 mg by mouth daily. URSODIOL (ACTIGALL) 300 MG CAPSULE Take 1 capsule (300 mg) by mouth in the morning and 1 capsule (300 mg) before bedtime. Modified Medications No medications on file Discontinued Medications No medications on file Medications ordered during this encounter: Outpatient Encounter Medications as of 10/08/2022 Medication Sig Dispense Refill ARIPiprazole (Abilify) 2 [...] the morning and 1,000 mg before bedtime. ursodiol (Actigall) 300 MG capsule Take 1 capsule (300 mg) by mouth in the morning and 1 capsule (300 mg) before bedtime. 180 capsule 0 Krill Oil 1000 MG capsule Take 1,000 mg by mouth in the morning. nystatin (Mycostatin) 218271 UNIT/ML suspension Swish and spit 5 mL (500,000 Units) 3 times daily. Swish and spit 5 mLs by mouth three times daily for 10 days. (Patient not taking: Reported on 10/08/2022) 150 mL 1 omeprazole (Pr (more content not included)... [facility] 36on 10-02-2022 36 Signed, thanks Marilou [facility] 36on 10-01-2022 36 DOS 09/02/22 LSG w/ HH CaroleZ TFU BAND 2008 at [place] - [place] [employer] IN FULL. MB 11/18/21 Lap removal of gastric band CHRISTOPHER 09/29/2022 Paper labs Potassium: 3.1 (L) Vitamin B12: >2000 (H) Called and spoke with pt regarding labs. Pt denies heart palpitations and denies any leg cramping. Pt reports was once put on a potassium supplement for a low potassium level. Recommend: (1) High potassium foods to include: Body Armor Lyte, bananas, potatoes, avocados, yogurt- all appropriate for soft diet phase. (2) Vitamin B12 500 mcg every other day instead of daily. Will monitor K in 1 week. Order pending. Please sign. Thank you! Normal [facility] Basophil percentageOrdered B y: GARRET BURT on 09-29-2022 Bilirubin [Mass/Vol] 0.40 mg/dL 0.20-1.00 [facility] Comment on above: For patients on eltr ombopag therapy, use of Dimension [place] TBIL is not recommended. Chloride [Moles/Vol] 99 mmol/L 98-107 [facility] Cholesterol [Mass/Vol] 132 mg/dL <200 [facility] Comment on above: <200 mg/dL Desirable 200-240 mg/dL Borderline >240 mg/dL High Risk Glucose [Mass/Vol] 103 mg/dL 74-106 [facility] Comment on above: Fasting Glucose resu lt from 100 to 125 mg/dL suggests IMPAIRED HOMEOSTASIS per A.D.A. criteria. Potassium [Moles/Vol] 3.1 mmol/L 3.5-5.1 [facility] Protein [Mass/Vol] 8.0 g/dL 6.4-8.2 [facility] Sodium [Moles/Vol] 136 mmol/L 136-145 [facility] Triglyceride [Mass/Vol] 138 mg/dL <199 [facility] Comment on above: The drugs N-Acetylcy steine and Metamizole may falsely depress this assay.Serum Triglycerides Reference Interval Normal <150 mg/dL Borderline high 150 - 199 mg/dL High 200 - 499 mg/dL Very High > or = 500 mg/dL WBC (Bld) [#/Vol] 6.5 10*3/uL 4.4-11.0 [facility] Blood erythrocytes count (nu mber/volume)Ordered By: GARRET BURT on 09-29-2022 RBC (Bld) [#/Vol] 4.72 10*6/uL 4.2-5.4 [facility] Blood hemoglobin measurement (mass/volume)Ordered By: GARRET BURT on 09-29-2022 Hemoglobin (Bld) [Mass/Vol] 13.9 g/dL 12.0-15.0 [facility] Blood platelet mean volumeOr dered By: GARRET BURT on 09-29-2022 Platelet mean volume (Bld) [Entitic vol] 10.2 fL 6.2-12.0 [facility] Determination of erythrocyte mean corpuscular volume (MCV)Ordered By: GARRET BURT on 09-29-2022 MCV (RBC) [Entitic vol] 93.4 fL 81-99 [facility] Hematocrit Auto (Bld) [Volum e fraction]Ordered By: GARRET BURT on 09-29-2022 Hematocrit (Bld) [Volume fraction] 44.1 % 37-47 [facility] Iron measurement (mass/mass) Ordered By: GARRET BURT on 09-29-2022 Iron (Unsp spec) [Mass/Mass] 67 ug/dL 50-170 [facility] Laboratory - Chemistry and C hemistry - challengeOrdered By: GARRET BURT on 09-29-2022 ALP [Catalytic activity/Vol] 85 U/L 45-117 [facility] ALT [Catalytic activity/Vol] 44 U/L 13-56 [facility] CO2 [Moles/Vol] 29.0 mmol/L 21.0-32.0 [facility] Free T4 [Mass/Vol] 1.48 ng/dL 0.76-1.46 [facility] Globulin (S) [Mass/Vol] 3.8 g/dL 2.2-4.2 [facility] Magnesium [Mass/Vol] 2.1 mg/dL 1.6-2.6 [facility] Urea nitrogen/Creatinine [Mass ratio] 14.0 mg/mg 10-20 [facility] Laboratory - Hematology and Cell countsOrdered By: GARRET BURT on 09-29-2022 Erythrocyte distribution width (RBC) [Entitic vol] 45.3 fL 35.1-43.9 [facility] Erythrocyte distribution width (RBC) [Ratio] 13.2 % 11.6-14.6 [facility] MCH (RBC) [Entitic mass] 29.4 pg 27.0-32.0 [facility] MCHC Auto (RBC) [Mass/Vol]Or dered By: GARRET BURT on 09-29-2022 MCHC (RBC) [Mass/Vol] 31.5 g/dL 32-36 [facility] No Panel InformationOrdered By: GARRET BURT on 09-29-2022 Estimated GFR (MDRD) Amer 110 mL/min >60 [facility] Comment on above: GFR Calc Estimated GFR (MDRD) Non-Af Amer 91 mL/min >60 [facility] Comment on above: Non- GFR Calc Thyroid Stimulating Hormone (TSH) 1.10 uIU/mL 0.358-3.74 [facility] Vitamin B12 Level > 2000 pg/mL 211-911 [facility] Platelets bldOrdered By: FAMILIA BURT on 09-29-2022 Platelets (Bld) [#/Vol] 313 10*3/uL 150-450 [facility] Serum or plasma albumin andrés urement (mass/volume)Ordered By: GARRET BURT on 09-29-2022 Albumin [Mass/Vol] 4.2 g/dL 3.2-5.0 [facility] Serum or plasma albumin/glob ulin mass ratioOrdered By: GARRET BURT on 09-29-2022 Albumin/Globulin [Mass ratio] 1.1 {ratio} 0.9-2.4 [facility] Serum or plasma calcium andrés urement (mass/volume)Ordered By: GARRET BURT on 09-29-2022 Calcium [Mass/Vol] 9.8 mg/dL 8.5-10.1 [facility] Serum or plasma cholesterol in HDL measurement (mass/volume)Ordered By: GARRET BURT on 09-29-2022 Cholesterol in HDL [Mass/Vol] 40 mg/dL >40 [facility] Comment on above: The drugs N-Acetylcy steine and Metamizole may falsely depress this assay. Reference Range HDL <40 mg/dL Low HDL Cholesterol HDL >or= 60 mg/dL High HDL Cholesterol Serum or plasma cholesterol in VLDL measurement (mass/volume)Ordered By: GARRET BURT on 09-29-2022 Cholesterol in VLDL [Mass/Vol] 28 mg/dL 5-40 [facility] Serum or plasma creatinine m easurement (mass/volume)Ordered By: GARRET BURT on 09-29-2022 Creatinine [Mass/Vol] 0.71 mg/dL 0.55-1.02 [facility] Comment on above: The validity of the calculated GFR & GFRAA in patients over 70 years has not been determined. Clinical correlation is essential. Serum or plasma ferritin day surement (mass/volume)Ordered By: GARRET BURT on 09-29-2022 Ferritin [Mass/Vol] 99 ng/mL 8-252 [facility] Serum or plasma folate measu rement (mass/volume)Ordered By: GARRET BURT on 09-29-2022 Folate [Mass/Vol] 13.60 ng/mL 3.1-55.4 [facility] Serum or plasma low density lipoprotein (LDL) cholesterol measurement (mass/volume)Ordered By: GARRET BURT on 09-29-2022 Cholesterol in LDL [Mass/Vol] 64 mg/dL 0-130 [facility] Serum or plasma urea nitroge n measurement (mass/volume)Ordered By: GARRET BURT on 09-29-2022 Urea nitrogen [Mass/Vol] 10 mg/dL 7-18 [facility] Serum or plasma zinc measure ment (mass/volume)Ordered By: GARRET BURT on 09-29-2022 Zinc [Mass/Vol] 100 ug/dL 44-115 [facility] Comment on above: Detection Limit = 5P erformed at: [facility] [address] [id number] Director: Pranav Aparicio MD, Phone: [phone] Thin prep Papanicolaou smear with manual screeningOrdered By: GARRET BURT on 09-29-2022 Thin prep Papanicolaou smear with manual screening 33 U/L 15-37 [facility] Thin prep Papanicolaou smear with manual screening 8 5-15 [facility] Whole blood hemoglobin A1c/t otal hemoglobin ratio (mass fraction)Ordered By: GARRET BURT on 09-29-2022 HbA1c (Bld) [Mass fraction] 4.8 % 3.8-5.6 [facility] Comment on above: Normal < 5.7 % Predi abetic 5.7 - 6.4 % Diabetic >or= 6.5 % Please note range changes. Office Visiton 09-10-2022 Follow-up visit [id number] Nicole Allan 1965 F Date Provider Department Center 09/10/2022 [id number] BURT [facility] SURG None Family History Problem Relation Age of Onset Cancer Father Stroke Father Hypertension Father Hyperlipidemia Paternal Grandfather Obesity Mother Diabetes Mother Hyperlipidemia Mother Cancer Mother Obesity Brother Obesity Father Hyperlipidemia Brother Hyperlipidemia Father Hyperlipidemia Maternal Grandmother Diabetes Father Hypertension Mother Hypertension Brother Obesity Paternal Grandfather Diabetes Brother Diabetes Maternal Grandmother Hypertension Maternal Grandmother Hyperlipidemia Paternal Grandmother Obesity Maternal Grandmother Hypertension Paternal Grandfather Hypertension Paternal Grandmother Obesity Paternal Grandmother Family Status - Relation Status Age at Father Paternal Grandfather Mother Brother Maternal Grandmother Paternal Grandmother Level of Service:42449 AL POSTOP FOLLOW UP VISIT RELATED TO ORIGINAL PX Reason for Visit and Comments: Bariatrics Post Op Follow-up [884] - 1W Normal [facility] Progress Noteon 09-10-2022 Progress Note [facility] 1 WEEK VISIT POST-OPERATIVE DIETITIAN Date: 09/10/22 Protein requirements discussed. Patient to consume 65-75 grams daily. Fluid requirements discussed. Patient to consume 64 oz+ daily. Patient is aware that she must consume fluids 30 mintues before and after meals. Exercise activities discussed with the patient. She doeshave a plan for exercise when cleared. Patient advised that regular exercise is vital to a successful outcome following weight loss surgery. Behavioral/Emotional changes reviewed Patient does feel comfortable with changes in eating behaviors and associated emotional changes. She was reminded that psychological counseling is available through the [facility] post-operatively. The importance of vitamin supplementation has been discussed with patient. She will start the following vitamin supplements today: -Multivitamin with minerals and iron -Calcium -Vitamin B12 -Vitamin D3 -Other: Recent Nutrient Concerns and Vitamin Supplementation Changes: Reviewed vitamin and mineral protocol. Notes/Comments: Pt tolerating full liquid diet well. Reviewed advancement of diet. To begin pureed diet x 10 days, and then advance to the soft diet, and remain on the soft diet until returns for 1 month post-op appointment. To begin Vitamin/mineral protocol. Pt encouraged to call/Mychart with questions. Visit completed by: Marilou Clifton RD [facility] Progress Note [facility] SURGICAL PROGRAM Patient: Santos Allan Date of : 1965 Service Date: 09/10/22 HPI: Patient here today for 1 week post-weight loss surgery follow up HPI: She is feeling well. Denies nausea, vomiting, dysphagia, or any GERD Sx. Currently is a PPI. Patient currently walking. Instructed no lifting heavier than 15lbs until [address] to start supplements. Patient reports doing well. Pain controlled with percocet at night. Denies n/v, dysphagia, d/c, fevers, SOB/CP, leg swelling/pain. Fluid intake >64 ounces daily. BM variable. Vital signs are stable. Labs were not drawn. Physical Examination: BP 136/77 Pulse 101 Temp 35.2 ?C (95.3 ?F) Resp 18 Ht 5' 7 (1.702 m) Comment: bcc Wt 264 lb (120 kg) SpO2 99% BMI 41.35 kg/m? General: This patient is awake, alert, and oriented, and is in no apparent distress. Respiratory: Non-labored breathing Abdomen: Obese, soft, non-tender, non-distended without masses/ No evidence of abdominal hernia / Incisions consistent with previous surgeries. Extremities: No cyanosis, clubbing or edema/ No calf tenderness/No restrictions of movement, is ambulatory without assistance. Skin: No rashes or lesions noted. Surgical site: is:clean, dry, intact, and nontender Drainage from surgical site: none Patient does not have a superficial incisional SSI Orders Placed This Encounter Procedures Zinc These orders are set for an approximate date - they can be drawn up to 3 months prior to the Expected Date on this Req. Please send results to: MD Simon Stone [id number] [facility] [address] - [phone] And if not done at a [facility], please send to: [place] [address] Patient Name: Santos Myricktristen - 1965 Order Created by : Mckenzie Samayoa Standing Status: Future Standing Expiration Date: 09/10/2023 Folate These orders are set for an approximate date - they can be drawn up to 3 months prior to the Expected Date on this Req. Please send results to: Ana Bolaños MD - [address] [facility] [address] - [phone] And if not done at a [facility], please send to: [place] [address] Patient Name: Santos Gravesmuralisangita - 1965 Order Created by : Mckenzie Samayoa Standing Status: Future Standing Expiration Date: 09/10/2023 Iron These orders are set for an approximate date - they can be drawn up to 3 months prior to the Expected Date on this Req. Please send results to: MD Simon Stone [address] [facility] [address] - [phone] And if not done at a [facility], please send to: [address], [address] Patient Name: Santos Allan - 1965 Order Created by : Mckenzie Samayoa Standing Status: Future Standing Expiration Date: 09/10/2023 Ferritin These orders are set for an approximate date - they can be drawn up to 3 months prior to the Expected Date on this Req. Please send results to: Ana Bolaños MD - [facility] [id number] - [phone] And if not done at a [facility], please send to: [address], [address] Patient Name: Santos Allan - 1965 Order Created by : Mckenzie Samayoa Standing Status: Future Standing Expiration Date: 09/10/2023 Magnesium These orders are set for an approximate date - they can be drawn up to 3 months prior to the Expected Date on this Req. Please send results to: Ana Bolaños MD - [facility] [id number] - [phone] And if not done at a [facility], please send to: [address], [address] Patient Name: Santos Allan - 1965 Order Created by : Mckenzie Samayoa Standing Status: Future Standing Expiration Date: 09/10/2023 Vitamin B12 These orders are set for an approximate date - they can be drawn up to 3 months prior to the Expected Date on this Req. Please send results to: MD iSmon Stone [address] [facility] [id number] - [phone] And if not done at a [facility], please send to: [address], [address] Patient Name: Santos Allan - 1965 Order Created by : Mckenzie Samayoa Standing Status: Future Standing Expiration Date: 09/10/2023 Comprehensive metabolic panel These orders are set for an approximate date - they can be drawn up to 3 months prior (more content not included)... Normal [facility] Progress Note [facility] POST WEIGHT LOSS SURGERY FOLLOW UP - 1 WEEK Rooming Note Patient: Santos Allan Service Date: 09/10/2022 Patient is 1 week s/p Lap Sleeve Gastrectomy Pre-Surgical Weight Loss Initial Height: 5' 7 (170.2 cm) Initial Weight: 271 lb (123 kg) Initial BMI: 42.44 [place] Body Weight: 135 lb (61.2 kg) Surgery Date: 09/02/22 Pre-Surgical Height: 5' 7 (170.2 cm) Pre-Surgical Weight: 272 lb 12.8 oz (124 kg) Pre Surgery BMI: 42.72 Weight to Lose: 137 lb Post-Surgical Weight Loss Date: 09/10/22 Height: 5' 7 (170.2 cm) Weight: 264 lb (120 kg) BMI: 41.34 Weight Change: -8.8 lbs Total Weight Change: -8.8 lbs % EBWL: 6% Comments: 1W Pain: Patient rates pain on scale 0-10 as: 4 Patient has the following questions: none Patient is not diabetic If patient IS Diabetic: Patient has not spoken with the physician who prescribes their diabetic medications Patient has not resumed their diabetic medications as directed by their physician Patient advised as follows by physician prescribing diabetic medications: none Exercise Compliance: Compliance with recommended current exercise plan of walking/frequent ambulation: yes Falls Risk Assessment Patient does take medications which affect BP or mental status Patient does not have newly prescribed or changed dosage of medications within past 30 days which affect BP or mental status Patient has fallen in the past 2 months Patient does not demonstrate unsteady gait Patient uses the following ambulatory assistive devices: none Patient states the presence of the following traits which increases risk of fall: none Patient is low risk for falls. If high or moderate risk, patient instructed not to ambulate independently in the Center, and cord for call light placed within reach of patient. Post-op Weight Metrics: %EBWL: % EBWL: 6% Weight Change Since Last Visit: Weight Change: -8.8 lbs Weight Change from Highest Pre-op Weight: Total Weight Change: -8.8 lbs Completed by: Mckenzie Samayoa [facility] XR Chest 2 Viewson No acute cardiopulmonary disease. Report Dictated on Electronically Signed By: Radha Miles Electronically Signed Date/Time: 08/14/2022 7:53 AM [facility] Patient Name: SANTOS PRADO Exam Date/Time: 08/13/2022 14:02 Procedure: XR CHEST 2 VIEWS Ordering Provider: BURT MALLORY Reason For Exam: CHEST X-RAY PA/LATERAL CLINICAL INDICATION: Pre-operative exam Frontal and lateral plain films of the chest were obtained. COMPARISON: None FINDINGS: The cardiac silhouette is within normal limits. No focal consolidation is seen within the lungs. No pleural effusion or pneumothorax is identified. Cervical spine fusion hardware is not fully imaged. [facility] Radha Miles MD - 08/14/2022 Patient Name: SANTOS ALLAN Exam Date/Time: 08/13/2022 14:02 Procedure: XR CHEST 2 VIEWS Ordering Provider: BURT MALLORY Reason For Exam: CHEST X-RAY PA/LATERAL CLINICAL INDICATION: Pre-operative exam Frontal and lateral plain films of the chest were obtained. COMPARISON: None FINDINGS: The cardiac silhouette is within normal limits. No focal consolidation is seen within the lungs. No pleural effusion or pneumothorax is identified. Cervical spine fusion hardware is not fully imaged. IMPRESSION: No acute cardiopulmonary disease. Report Dictated on Electronically Signed By: Radha Miles Electronically Signed Date/Time: 08/14/2022 7:53 AM [facility] XR Chest 2 ViewsOrdered By: Radha Miles on 08-14-2022 [facility] Work Phone: XR Chest 2 Viewson 2 Radiology Study observation (narrative) [facility] Absolute lymphocyte countOrd ered By: Dr. Newton on 06-26-2022 Lymphocytes Auto (Unsp spec) [#/Vol] 2.01 10*3/uL 0.83-4.51 [facility] Basophil percentageOrdered B y: Dr. Newton on 06-26-2022 Basophils/100 WBC (Bld) 0.7 % 0-1 [facility] Bilirubin [Mass/Vol] 0.30 mg/dL 0.20-1.00 [facility] Comment on above: For patients on eltr ombopag therapy, use of Dimension [place] TBIL is not recommended. Chloride [Moles/Vol] 100 mmol/L 98-107 [facility] Eosinophils/100 WBC (Bld) 0.2 % 0-5 [facility] Glucose [Mass/Vol] 123 mg/dL 74-106 [facility] Comment on above: Fasting Glucose resu lt from 100 to 125 mg/dL suggests IMPAIRED HOMEOSTASIS per A.D.A. criteria. Neutrophils (Bld) [#/Vol] 3.2 10*3/uL 2.0-7.7 [facility] Neutrophils/100 WBC (Bld) 53.2 % 47-70 [facility] Potassium [Moles/Vol] 3.8 mmol/L 3.5-5.1 [facility] Protein [Mass/Vol] 7.4 g/dL 6.4-8.2 [facility] Sodium [Moles/Vol] 139 mmol/L 136-145 [facility] WBC (Bld) [#/Vol] 5.9 10*3/uL 4.4-11.0 [facility] Blood erythrocytes count (nu mber/volume)Ordered By: Dr. Newton on 06-26-2022 RBC (Bld) [#/Vol] 4.40 10*6/uL 4.2-5.4 [facility] Blood hemoglobin measurement (mass/volume)Ordered By: Dr. Newton on 06-26-2022 Hemoglobin (Bld) [Mass/Vol] 13.0 g/dL 12.0-15.0 [facility] Blood lymphocytes/100 leukoc ytesOrdered By: Dr. Newton on 06-26-2022 Lymphocytes/100 WBC (Bld) 33.8 % 19-41 [facility] Blood monocytes/100 leukocyt esOrdered By: Dr. Newton on 06-26-2022 Monocytes/100 WBC (Bld) 9.4 % 0-10 [facility] Blood platelet mean volumeOr dered By: Dr. Newton on 06-26-2022 Platelet mean volume (Bld) [Entitic vol] 9.9 fL 6.2-12.0 [facility] Determination of erythrocyte mean corpuscular volume (MCV)Ordered By: Dr. Newton on 06-26-2022 MCV (RBC) [Entitic vol] 94.3 fL 81-99 [facility] Hematocrit Auto (Bld) [Volum e fraction]Ordered By: Dr. Newton on 06-26-2022 Hematocrit (Bld) [Volume fraction] 41.5 % 37-47 [facility] Laboratory - Chemistry and C hemistry - challengeOrdered By: Dr. Newton on 06-26-2022 ALP [Catalytic activity/Vol] 80 U/L 45-117 [facility] ALT [Catalytic activity/Vol] 40 U/L 13-56 [facility] CO2 [Moles/Vol] 29.0 mmol/L 21.0-32.0 [facility] Free T4 [Mass/Vol] 1.10 ng/dL 0.76-1.46 [facility] Globulin (S) [Mass/Vol] 3.8 g/dL 2.2-4.2 [facility] Urea nitrogen/Creatinine [Mass ratio] 15.2 mg/mg 10-20 [facility] Laboratory - Hematology and Cell countsOrdered By: Dr. Newton on 06-26-2022 Erythrocyte distribution width (RBC) [Entitic vol] 47.1 fL 35.1-43.9 [facility] Erythrocyte distribution width (RBC) [Ratio] 13.5 % 11.6-14.6 [facility] Immature granulocytes/100 WBC (Bld) 2.700 % 0.0-0.9 [facility] Comment on above: IG% - Immature Granu locytes (promyelocytes, myelocytes and metamyelocytes) > 1% indicates that a LEFT SHIFT is Present. MCH (RBC) [Entitic mass] 29.5 pg 27.0-32.0 [facility] Nucleated RBC/100 WBC (Bld) [Ratio] 0 % 0-5 [facility] ([facility] [Mass/Vol]Or dered By: Dr. Newton on 06-26-2022 MCHC (RBC) [Mass/Vol] 31.3 g/dL 32-36 [facility] No Panel InformationOrdered By: Dr. Newton on 06-26-2022 Estimated GFR (MDRD) Amer 120 mL/min >60 [facility] Comment on above: GFR Calc Estimated GFR (MDRD) Non-Af Amer 99 mL/min >60 [facility] Comment on above: Non- GFR Calc Thyroid Stimulating Hormone (TSH) 1.88 uIU/mL 0.358-3.74 [facility] Urine Microalbumin/Creati nine Ratio TNP [facility] Comment on above: Test not performed Vitamin D 25-Hydroxy 47.7 ng/mL [facility] Comment on above: Vitamin D 25(OH) Sta tus Range Deficiency <20 ng/mL (50nmol/L) Insufficiency 20 - 30 ng/mL (50 - 75 nmol/L) Sufficiency 30 - 100 ng/mL (75 - 250 nmol/L) Toxicity >100 ng/mL (>250 nmol/L) Platelets bldOrdered By: Dr. Newton on 06-26-2022 Platelets (Bld) [#/Vol] 289 10*3/uL 150-450 [facility] Serum or plasma albumin andrés urement (mass/volume)Ordered By: Dr. Newton on 06-26-2022 Albumin [Mass/Vol] 3.6 g/dL 3.2-5.0 [facility] Serum or plasma albumin/glob ulin mass ratioOrdered By: Dr. Newton on 06-26-2022 Albumin/Globulin [Mass ratio] 0.9 {ratio} 0.9-2.4 [facility] Serum or plasma calcium andrés urement (mass/volume)Ordered By: Dr. Newton on 06-26-2022 Calcium [Mass/Vol] 9.1 mg/dL 8.5-10.1 [facility] Serum or plasma creatinine m easurement (mass/volume)Ordered By: Dr. Newton on 06-26-2022 Creatinine [Mass/Vol] 0.66 mg/dL 0.55-1.02 [facility] Comment on above: The validity of the calculated GFR & GFRAA in patients over 70 years has not been determined. Clinical correlation is essential. Serum or plasma urea nitroge n measurement (mass/volume)Ordered By: Dr. Newton on 06-26-2022 Urea nitrogen [Mass/Vol] 10 mg/dL 7-18 [facility] Thin prep Papanicolaou smear with manual screeningOrdered By: Dr. Newton on 06-26-2022 Thin prep Papanicolaou smear with manual screening 30 U/L 15-37 [facility] Thin prep Papanicolaou smear with manual screening 10 5-15 [facility] Thin prep Papanicolaou smear with manual screening < 5.0 mg/L NO RANGE EST. [facility] Urine creatinine measurement (mass/volume)Ordered By: Dr. Newton on 06-26-2022 Creatinine (U) [Mass/Vol] 21.20 mg/dL NO RANGE EST. [facility] Whole blood hemoglobin A1c/t otal hemoglobin ratio (mass fraction)Ordered By: Dr. Newton on 06-26-2022 HbA1c (Bld) [Mass fraction] 6.1 % 3.8-5.6 [facility] Comment on above: Normal < 5.7 % Predi abetic 5.7 - 6.4 % Diabetic >or= 6.5 % Please note range changes. Stool Helicobacter pylori an tigen detection by immunoassayon 04-04-2022 H. pylori Ag IA Ql (Stl) Negative Negative [facility] Work Phone: Comment on above: Performed at: [facility] - [address] [id number] Director: Pranav Aparicio MD, Phone: [phone] Absolute lymphocyte counton 03-19-2022 Lymphocytes Auto (Unsp spec) [#/Vol] 2.05 10*3/uL 0.83-4.51 [facility] Work Phone: Basophil percentageon 2021 Basophils/100 WBC (Bld) 0.5 % 0-1 [facility] Work Phone: Bilirubin [Mass/Vol] 0.30 mg/dL 0.20-1.00 [facility] Work Phone: Comment on above: For patients on eltr ombopag therapy, use of Dimension [place] TBIL is not recommended. Chloride [Moles/Vol] 104 mmol/L 98-107 [facility] Work Phone: Cholesterol [Mass/Vol] 177 mg/dL <200 [facility] Work Phone: Comment on above: <200 mg/dL Desirable 200-240 mg/dL Borderline >240 mg/dL High Risk Eosinophils/100 WBC (Bld) 0.0 % 0-5 [facility] Work Phone: Glucose [Mass/Vol] 106 mg/dL 74-106 [facility] Work Phone: Comment on above: Fasting Glucose resu lt from 100 to 125 mg/dL suggests IMPAIRED HOMEOSTASIS per A.D.A. criteria. Neutrophils (Bld) [#/Vol] 4.0 10*3/uL 2.0-7.7 [facility] Work Phone: Neutrophils/100 WBC (Bld) 60.3 % 47-70 [facility] Work Phone: Potassium [Moles/Vol] 3.7 mmol/L 3.5-5.1 [facility] Work Phone: Protein [Mass/Vol] 6.9 g/dL 6.4-8.2 [facility] Work Phone: Sodium [Moles/Vol] 139 mmol/L 136-145 [facility] Work Phone: Triglyceride [Mass/Vol] 191 mg/dL <199 [facility] Work Phone: Comment on above: The drugs N-Acetylcy steine and Metamizole may falsely depress this assay.Serum Triglycerides Reference Interval Normal <150 mg/dL Borderline high 150 - 199 mg/dL High 200 - 499 mg/dL Very High > or = 500 mg/dL WBC (Bld) [#/Vol] 6.6 10*3/uL 4.4-11.0 [facility] Work Phone: Blood erythrocytes count (nu mber/volume)on 03-19-2022 RBC (Bld) [#/Vol] 4.11 10*6/uL 4.2-5.4 [facility] Work Phone: Blood hemoglobin measurement (mass/volume)on 03-19-2022 Hemoglobin (Bld) [Mass/Vol] 12.6 g/dL 12.0-15.0 [facility] Work Phone: Blood lymphocytes/100 leukoc yteson 03-19-2022 Lymphocytes/100 WBC (Bld) 31.0 % 19-41 [facility] Work Phone: Blood monocytes/100 leukocyt eson 03-19-2022 Monocytes/100 WBC (Bld) 7.0 % 0-10 [facility] Work Phone: Blood platelet mean volumeon 03-19-2022 Platelet mean volume (Bld) [Entitic vol] 10.1 fL 6.2-12.0 [facility] Work Phone: Determination of erythrocyte mean corpuscular volume (MCV)on 03-19-2022 MCV (RBC) [Entitic vol] 98.1 fL 81-99 [facility] Work Phone: Erythrocyte sedimentation ra ang 03-19-2022 ESR (Bld) [Velocity] 17 mm/h 0-30 [facility] Work Phone: Hematocrit Auto (Bld) [Volum e fraction]on 03-19-2022 Hematocrit (Bld) [Volume fraction] 40.3 % 37-47 [facility] Work Phone: Laboratory - Chemistry and C hemistry - challengeon 03-19-2022 Albumin [Mass/Vol] 3.4 g/dL 2.9-4.4 [facility] Work Phone: ALP [Catalytic activity/Vol] 94 U/L 45-117 [facility] Work Phone: [phone] ALT [Catalytic activity/Vol] 29 U/L 13-56 [facility] Work Phone: [phone] CO2 [Moles/Vol] 28.0 mmol/L 21.0-32.0 [facility] Work Phone: Cobalamin (Vitamin B12) [Mass/Vol] 883 pg/mL 211-911 [facility] Work Phone: [phone] Globulin (S) [Mass/Vol] 3.6 g/dL 2.2-4.2 [facility] Work Phone: [phone] Magnesium [Mass/Vol] 2.0 mg/dL 1.6-2.6 [facility] Work Phone: [phone] Urea nitrogen/Creatinine [Mass ratio] 14.1 mg/mg 10-20 [facility] Work Phone: Laboratory - Hematology and Cell countson 03-19-2022 Erythrocyte distribution width (RBC) [Entitic vol] 47.0 fL 35.1-43.9 [facility] Work Phone: [phone] Erythrocyte distribution width (RBC) [Ratio] 13.1 % 11.6-14.6 [facility] Work Phone: [phone] Immature granulocytes/100 WBC (Bld) 1.200 % 0.0-0.9 [facility] Work Phone: [phone] Comment on above: IG% - Immature Granu locytes (promyelocytes, myelocytes and metamyelocytes) > 1% indicates that a LEFT SHIFT is Present. MCH (RBC) [Entitic mass] 30.7 pg 27.0-32.0 [facility] Work Phone: [phone] Nucleated RBC/100 WBC (Bld) [Ratio] 0 % 0-5 [facility] Work Phone: [phone] MCHC Auto (RBC) [Mass/Vol]on 03-19-2022 MCHC (RBC) [Mass/Vol] 31.3 g/dL 32-36 [facility] Work Phone: No Panel Informationon 03-19 Addendum Document Comment . [facility] Work Phone: Comment on above: The SPE pattern appe ars unremarkable. Evidence ofmonoclonal protein is not apparent. Muxym-7-Llyfiskso 0.3 g/dL 0.0-0.4 [facility] Work Phone: Rpoqt-1-Bhoccajgx 0.9 g/dL 0.4-1.0 [facility] Work Phone: Estimated GFR (MDRD) Amer 110 mL/min >60 [facility] Work Phone: Comment on above: GFR Calc Estimated GFR (MDRD) Non-Af Amer 91 mL/min >60 [facility] Work Phone: Comment on above: Non- GFR Calc Gamma Globulins 0.6 g/dL 0.4-1.8 [facility] Work Phone: Plasma renin measurement (en zymatic activity/volume)on 03-19-2022 Renin (P) [Catalytic activity/Vol] 6.402 ng/mL/hr 0.167-5.380 [facility] Work Phone: Comment on above: Performed at: [address] [id number] Director: Mesfin Odell PhD, Phone: [phone] at: [facility] [address] [id number] Director: Pranav Aparicio MD, Phone: [phone] Platelets bldon 03-19-2022 Platelets (Bld) [#/Vol] 277 10*3/uL 150-450 [facility] Work Phone: Protein Fractions Elph [Inte rp]on 03-19-2022 Protein Fractions [Interp] Comment . [facility] Work Phone: Comment on above: Protein electrophore sis scan will follow via computer,mail, or animal ride manager delivery. Serum DNA double strand anti body assay (units/volume)on 03-19-2022 DNA double strand Ab Qn (S) [IU]/mL 0-9 [facility] Work Phone: Comment on above: Negative <5 Equivoca l 5 - 9 Positive >9Performed at: [facility] [address] [id number] Director: Mesfin Odell PhD, Phone: [phone] Serum albumin to globulin ra berta by protein electrophoresison 03-19-2022 Albumin/Globulin Elph [Mass ratio] 1.1 0.7-1.7 [facility] Work Phone: Serum globulin measurement ( mass/volume)on 03-19-2022 Globulin (S) [Mass/Vol] 3.0 g/dL 2.2-3.9 [facility] Work Phone: Serum or plasma C reactive p rotein measurement (mass/volume)on 03-19-2022 CRP [Mass/Vol] mg/L 0.0-3.0 [facility] Work Phone: Comment on above: C-Reactive Protein ( CRP) provides useful information for thediagnosis, therapy and monitoring of inflammatory processesand associated diseases. For the evaluation of Relative Riskfor Cardiovascular Disease, a High Sensitivity CRP (HSCRP)should be ordered. Serum or plasma albumin andrés urement (mass/volume)on 03-19-2022 Albumin [Mass/Vol] 3.3 g/dL 3.2-5.0 [facility] Work Phone: Serum or plasma albumin/glob ulin mass ratioon 03-19-2022 Albumin/Globulin [Mass ratio] 0.9 {ratio} 0.9-2.4 [facility] Work Phone: Serum or plasma beta globuli n measurement by electrophoresis (mass/volume)on 03-19-2022 Beta globulin Elph [Mass/Vol] 1.2 g/dL 0.7-1.3 [facility] Work Phone: Serum or plasma calcium andrés urement (mass/volume)on 03-19-2022 Calcium [Mass/Vol] 9.1 mg/dL 8.5-10.1 [facility] Work Phone: Serum or plasma cholesterol in HDL measurement (mass/volume)on 03-19-2022 Cholesterol in HDL [Mass/Vol] 40 mg/dL >40 [facility] Work Phone: Comment on above: The drugs N-Acetylcy steine and Metamizole may falsely depress this assay. Reference Range HDL <40 mg/dL Low HDL Cholesterol HDL >or= 60 mg/dL High HDL Cholesterol Serum or plasma cholesterol in VLDL measurement (mass/volume)on 03-19-2022 Cholesterol in VLDL [Mass/Vol] 38 mg/dL 5-40 [facility] Work Phone: Serum or plasma complement C 3 measurement (mass/volume)on 03-19-2022 Complement C3 [Mass/Vol] 176 mg/dL 82-167 [facility] Work Phone: Serum or plasma complement C 4 measurement (mass/volume)on 03-19-2022 Complement C4 [Mass/Vol] 35 mg/dL 12-38 [facility] Work Phone: Serum or plasma creatinine m easurement (mass/volume)on 03-19-2022 Creatinine [Mass/Vol] 0.71 mg/dL 0.55-1.02 [facility] Work Phone: Comment on above: The validity of the calculated GFR & GFRAA in patients over 70 years has not been determined. Clinical correlation is essential. Serum or plasma low density lipoprotein (LDL) cholesterol measurement (mass/volume)on 03-19-2022 Cholesterol in LDL [Mass/Vol] 99 mg/dL 0-130 [facility] Work Phone: Serum or plasma urea nitroge n measurement (mass/volume)on 03-19-2022 Urea nitrogen [Mass/Vol] 10 mg/dL 7-18 [facility] Work Phone: Thin prep Papanicolaou smear with manual screeningon 03-19-2022 Thin prep Papanicolaou smear with manual screening 23 U/L 15-37 [facility] Work Phone: Thin prep Papanicolaou smear with manual screening 7 5-15 [facility] Work Phone: Thin prep Papanicolaou smear with manual screening See comment [facility] Work Phone: Comment on above: Result: Not Observed Thin prep Papanicolaou smear with manual screening 3.5 ng/dL 0.0-30.0 [facility] Work Phone: Total protein bloodon 2021 Protein [Mass/Vol] 6.4 g/dL 6.0-8.5 [facility] Work Phone: Whole blood hemoglobin A1c/t otal hemoglobin ratio (mass fraction)on 03-19-2022 HbA1c (Bld) [Mass fraction] 5.1 % 3.8-5.6 [facility] Work Phone: Comment on above: Normal < 5.7 % Predi abetic 5.7 - 6.4 % Diabetic >or= 6.5 % Please note range changes. Basophil percentageon 2021 Bilirubin [Mass/Vol] 0.30 mg/dL 0.20-1.00 [facility] Work Phone: Comment on above: For patients on eltr ombopag therapy, use of Dimension [place] TBIL is not recommended. Chloride [Moles/Vol] 101 mmol/L 98-107 [facility] Work Phone: Glucose [Mass/Vol] 94 mg/dL 74-106 [facility] Work Phone: Potassium [Moles/Vol] 3.9 mmol/L 3.5-5.1 [facility] Work Phone: Protein [Mass/Vol] 7.2 g/dL 6.4-8.2 [facility] Work Phone: Sodium [Moles/Vol] 137 mmol/L 136-145 [facility] Work Phone: Laboratory - Chemistry and C hemistry - challengeon 02-20-2022 ALP [Catalytic activity/Vol] 99 U/L 45-117 [facility] Work Phone: ALT [Catalytic activity/Vol] 31 U/L 13-56 [facility] Work Phone: CO2 [Moles/Vol] 28.0 mmol/L 21.0-32.0 [facility] Work Phone: Globulin (S) [Mass/Vol] 3.7 g/dL 2.2-4.2 [facility] Work Phone: Urea nitrogen/Creatinine [Mass ratio] 26.8 mg/mg 10-20 [facility] Work Phone: No Panel Informationon 02-20 Estimated GFR (MDRD) Amer 93 mL/min >60 [facility] Work Phone: Comment on above: GFR Calc Estimated GFR (MDRD) Non-Af Amer 77 mL/min >60 [facility] Work Phone: Comment on above: Non- GFR Calc Serum or plasma albumin andrés urement (mass/volume)on 02-20-2022 Albumin [Mass/Vol] 3.5 g/dL 3.2-5.0 [facility] Work Phone: Serum or plasma albumin/glob ulin mass ratioon 02-20-2022 Albumin/Globulin [Mass ratio] 0.9 {ratio} 0.9-2.4 [facility] Work Phone: Serum or plasma calcium andérs urement (mass/volume)on 02-20-2022 Calcium [Mass/Vol] 9.2 mg/dL 8.5-10.1 [facility] Work Phone: Serum or plasma creatinine m easurement (mass/volume)on 02-20-2022 Creatinine [Mass/Vol] 0.82 mg/dL 0.55-1.02 [facility] Work Phone: Comment on above: The validity of the calculated GFR & GFRAA in patients over 70 years has not been determined. Clinical correlation is essential. Serum or plasma urea nitroge n measurement (mass/volume)on 02-20-2022 Urea nitrogen [Mass/Vol] 22 mg/dL 7-18 [facility] Work Phone: Thin prep Papanicolaou smear with manual screeningon 02-20-2022 Thin prep Papanicolaou smear with manual screening 17 U/L 15-37 [facility] Work Phone: Thin prep Papanicolaou smear with manual screening 8 5-15 [facility] Work Phone: Basophil percentageon 2021 Bilirubin [Mass/Vol] 0.40 mg/dL 0.20-1.00 [facility] Work Phone: Comment on above: For patients on eltr ombopag therapy, use of Dimension [place] TBIL is not recommended. Chloride [Moles/Vol] 104 mmol/L 98-107 [facility] Work Phone: Cholesterol [Mass/Vol] 196 mg/dL <200 [facility] Work Phone: Comment on above: <200 mg/dL Desirable 200-240 mg/dL Borderline >240 mg/dL High Risk Glucose [Mass/Vol] 117 mg/dL 74-106 [facility] Work Phone: Comment on above: Fasting Glucose resu lt from 100 to 125 mg/dL suggests IMPAIRED HOMEOSTASIS per A.D.A. criteria. Potassium [Moles/Vol] 3.9 mmol/L 3.5-5.1 [facility] Work Phone: Protein [Mass/Vol] 7.6 g/dL 6.4-8.2 [facility] Work Phone: Sodium [Moles/Vol] 137 mmol/L 136-145 [facility] Work Phone: Triglyceride [Mass/Vol] 240 mg/dL <199 [facility] Work Phone: Comment on above: The drugs N-Acetylcy steine and Metamizole may falsely depress this assay.Serum Triglycerides Reference Interval Normal <150 mg/dL Borderline high 150 - 199 mg/dL High 200 - 499 mg/dL Very High > or = 500 mg/dL Laboratory - Chemistry and C hemistry - challengeon 12-12-2021 ALP [Catalytic activity/Vol] 106 U/L 45-117 [facility] Work Phone: ALT [Catalytic activity/Vol] 40 U/L 13-56 [facility] Work Phone: CO2 [Moles/Vol] 25.0 mmol/L 21.0-32.0 [facility] Work Phone: Free T4 [Mass/Vol] 1.30 ng/dL 0.76-1.46 [facility] Work Phone: Globulin (S) [Mass/Vol] 3.7 g/dL 2.2-4.2 [facility] Work Phone: Urea nitrogen/Creatinine [Mass ratio] 16.5 mg/mg 10-20 [facility] Work Phone: No Panel Informationon 12-12 Estimated GFR (MDRD) Amer 98 mL/min >60 [facility] Work Phone: Comment on above: GFR Calc Estimated GFR (MDRD) Non-Af Amer 81 mL/min >60 [facility] Work Phone: Comment on above: Non- GFR Calc Thyroid Stimulating Hormone (TSH) 1.62 uIU/mL 0.358-3.74 [facility] Work Phone: Serum or plasma albumin andrés urement (mass/volume)on 12-12-2021 Albumin [Mass/Vol] 3.9 g/dL 3.2-5.0 [facility] Work Phone: Serum or plasma albumin/glob ulin mass ratioon 12-12-2021 Albumin/Globulin [Mass ratio] 1.1 {ratio} 0.9-2.4 [facility] Work Phone: Serum or plasma calcium andrés urement (mass/volume)on 12-12-2021 Calcium [Mass/Vol] 9.1 mg/dL 8.5-10.1 [facility] Work Phone: Serum or plasma cholesterol in HDL measurement (mass/volume)on 12-12-2021 Cholesterol in HDL [Mass/Vol] 36 mg/dL >40 [facility] Work Phone: Comment on above: The drugs N-Acetylcy steine and Metamizole may falsely depress this assay. Reference Range HDL <40 mg/dL Low HDL Cholesterol HDL >or= 60 mg/dL High HDL Cholesterol Serum or plasma cholesterol in VLDL measurement (mass/volume)on 12-12-2021 Cholesterol in VLDL [Mass/Vol] 48 mg/dL 5-40 [facility] Work Phone: Serum or plasma creatinine m easurement (mass/volume)on 12-12-2021 Creatinine [Mass/Vol] 0.79 mg/dL 0.55-1.02 [facility] Work Phone: Comment on above: The validity of the calculated GFR & GFRAA in patients over 70 years has not been determined. Clinical correlation is essential. Serum or plasma low density lipoprotein (LDL) cholesterol measurement (mass/volume)on 12-12-2021 Cholesterol in LDL [Mass/Vol] 112 mg/dL 0-130 [facility] Work Phone: Serum or plasma urea nitroge n measurement (mass/volume)on 12-12-2021 Urea nitrogen [Mass/Vol] 13 mg/dL 7-18 [facility] Work Phone: Thin prep Papanicolaou smear with manual screeningon 12-12-2021 Thin prep Papanicolaou smear with manual screening 25 U/L 15-37 [facility] Work Phone: Thin prep Papanicolaou smear with manual screening 8 5-15 [facility] Work Phone: Whole blood hemoglobin A1c/t otal hemoglobin ratio (mass fraction)on 12-12-2021 HbA1c (Bld) [Mass fraction] 4.8 % 3.8-5.6 [facility] Work Phone: Comment on above: Normal < 5.7 % Predi abetic 5.7 - 6.4 % Diabetic >or= 6.5 % Please note range changes. Zinc, Serumon 11-19-2021 Zinc, Serum 91.5 ug/dL Normal 60.0-120.0 [facility] Comment on above: Result Comment: INTE RPRETIVE INFORMATION: Zinc, Serum or Plasma Elevated results may be due to skin or collection-related contamination, including the use of a noncertified metal-free collection/transport tube. If contamination concerns exist due to elevated levels of serum/plasma zinc, confirmation with a second specimen collected in a certified metal-free tube is recommended. Circulating zinc concentrations are dependent on albumin status and are depressed with malnutrition. Zinc may also be lowered with infection, inflammation, stress, oral contraceptives, and . Zinc may be elevated with zinc supplementation or fasting. Elevated zinc concentrations may interfere with copper absorption. This test was developed and its performance characteristics determined by [facility]. It has not been cleared or approved by the US Food and Drug Administration. This test was performed in a CLIA certified laboratory and is intended for clinical purposes. Performed By: [facility] [address] [place] [address] Tool And Die [employer] Apprentice: Yvonne Smart MD Performed By: #### V [id number] #### [facility] [address] [place] [address] #### HEMOG, FOLT3, CMP3, FERR3, B12, TSH5, MG3, LIPD2, IRON3 #### [facility] [address] [place] [address] #### ZINC2 #### The performing lab is in the report. OPERATIVE REPORTon 2 Ordered by an unspec ified provider. [facility] Op Noteon 11-18-2021 Op Note [facility] - Surgery [facility] Physicians Surgery Patient Name: Santos Allan OPERATIVE NOTE DATE OF PROCEDURE: 11/18/2021 SURGEON: Gavin Moctezuma MD HEAT PUMP INSTALLER: Xuan Lopez PA-C PREOPERATIVE DIAGNOSIS: ? Oropharyngeal dysphagia ? History of adjustable gastric band ? Band slippage ? Class II morbid obesity, BMI 39 ? Abnormal upper GI POSTOPERATIVE DIAGNOSIS: ? Same OPERATION: ? Laparoscopic removal of adjustable gastric band, band and subcutaneous reservoir ? EGD with biopsy ANESTHESIA: General anesthesia ESTIMATED BLOOD LOSS: Minimal COMPLICATIONS: None SPECIMENS: ? Band and port, gross identification only ? Antral biopsies for Helicobacter pylori PREOPERATIVE MEDICATIONS: Ancef HISTORY: The patient is a 55 y.o. year old female with history of above preop diagnosis. I explained the risk, benefits, expected outcome, and alternatives to the procedure. Patient understands and is in agreement to proceed with operation. PROCEDURE: She was brought to the operating room placed in the supine position. After initiation of general anesthesia by the anesthesia department and orogastric tube was used to decompress the stomach and subsequently removed. Her abdomen was prepped and draped in normal sterile fashion. A Veress needle was placed in the left upper quadrant we insufflated without difficulty. A 5 mm trocar was placed in the left upper quadrant, 1 in the right upper quadrant. Finally a 12mm trocar was placed through the prior incision from the subcutaneous reservoir placement. Upon entering the abdomen the left lobe of the liver was retracted and we identified the band. A Demetrice liver retractor was placed through a subxiphoid stab wound and secured. There was band slippage with some of the fundus pulled cephalad of the band. The plication sutures were divided using sharp scissor dissection. The adhesive scar tissue over the band was divided using Bovie electrocautery until the band was freely mobile. The band was divided using sharp scissor dissection and removed without difficulty. All of the components of the band were removed. The capsule around the proximal stomach was divided and elevated using a [place] dissector and subsequently divided using scissors and Bovie electrocautery. At this point the components of the band were removed through the 12 mm port. Hemostasis was obtained. We then proceeded with removing the subcutaneous reservoir. A 10 blade scalpel was used to reopen the prior incision. Bovie electrocautery was used to carry the subcutaneous tissues to the level of the port. The port was excised using Bovie electrocautery without difficulty and the remaining portion of the reservoir and tubing was removed from the abdomen. We then reinsufflated the abdomen using the Allen-Deborah closure device close this fascial defect using 0 Vicryl suture and the Allen-Deborah closure device. The wounds were copiously irrigated and the skin was closed using 4-0 Monocryl. She was then repositioned for upper GI endoscopy. The flexible Olympus gastroscope was introduced to the patient's mouth through the esophagus and into the stomach. This was passed into the duodenum without difficulty. The first and second portion of the duodenum were normal. The scope was withdrawn to the gastric antrum there was mild to moderate antral gastritis noted, superficial and chronic appearing. Biopsies for Helicobacter pylori were obtained using cold biopsy forcep technique and sent to pathology. The rest the gastric body was unremarkable. The retroflexion view showed indentation and abnormality from the previous band however no mass lesions. The air was evacuated to the GE junction which was unremarkable as was the distal esophagus. The scope was withdrawn from the patient who tolerated the procedure well. She was extubated and sent to recovery in stable condition. There were no qualified residents available to facilitate the procedure, as a result Xuan Lopez PA-C was asked to serve as the housekeeper/laundry assistant for this procedure. Normal [facility] Surgical Pathologyon 022 Surgical Pathology [id number] [facility] PATHOLOGY AND LABORATORY MEDICINE [address] [place], [place] [phone] Fax - FINAL SURGICAL PATHOLOGY REPORT NAME: SANTOS ALLAN : 1965 55 Y F BILLING NO.: [id number] LOCATION: [facility] 09 PROCEDURE 11/18/2021 DATE: SURGEON: GAVIN MOCTEZUMA MD RECEIVED 11/18/2021 DATE: ATTENDING: GAVIN MOCTEZUMA MD REPORT DATE: 11/20/2021 COPIES TO: DIAGNOSIS: A. STOMACH, ANTRUM, BIOPSY - FRAGMENT OF UNREMARKABLE BODY-TYPE GASTRIC MUCOSAL TISSUE. Comment: The surface epithelium is absent, limiting evaluation for H.pylori, intestinal metaplasia and dysplasia. However, the submucosal tissue appears unremarkable with no inflammation present. Multiple deeper levels are examined. B. LAP BAND, REMOVAL - SURGICAL DEVICE FOR GROSS EXAMINATION ONLY (SEE GROSS DESCRIPTION BELOW). ARK/ARK Signature> Sarita SU., PhD CLINICAL INFORMATION: Deficiency multiple nutrient elements SPECIMEN: (A) BIOPSY , ANTRAL FOR H. PYLORI (B) HARDWARE REMOVED , LAP BAND FOR IDENTIFICATION GROSS DESCRIPTION: A. Received in formalin labeled antral biopsy is a segment of ramon tissue measuring 0.4 cm. The specimen is entirely submitted in a single cassette. B. Received in formalin labeled lap band gross identification only are portions of hardware consisting of a deflated circular band-like structure measuring 13 x 2 x 0.6 cm. It contains an attached 4 cm length of tubing measuring 0.4 cm in diameter. Also present is a anaya port measuring 3.5 cm in diameter and 1 cm in height. It bears the inscription [birth year]. There is an attached length of catheter tubing measuring 39 cm in length and 0.5 cm in diameter. The specimen is grossly unremarkable. No sections. [id number] Disclaimer: The following statement applies to all immunohistochemistry, in situ hybridization, molecular studies, and immunofluorescence testing. The use of one or more reagents in the above tests is regulated as an analyte specific reagent (ASR). These tests were developed and their performance characteristics determined by the clinical laboratories of [facility]. They have not been cleared by the US Food and Drug Administration (FDA). The FDA has determined that such clearance or approval is not necessary. All the above immunostains were performed on paraffin embedded tissue. Appropriate positive and negative controls (where applicable) were run in parallel with the patient's specimen; these controls showed expected staining pattern, with acceptable intensity of staining. Immunohistochemical assays have not been validated on decalcified tissues. Results should be interpreted with caution given the raised possibility of false negativity on decalcified specimens. Case reviewed at [address] [id number]. DEPARTMENT OF PATHOLOGY AND LABORATORY MEDICINE [place], [place] [address] [email or web address] Normal [facility] [facility] Vit D 25-OH, Totalon 022 Vit D 25-OH, Total 44 ng/mL Normal 30-100 [facility] Comment on above: Result Comment: Ther apy is based on measurement of Total 25- OHD with the following classification levels: Less than 20 ng/mL: Indicative of Vit D deficiency 20-30 ng/mL: Suggests Vit D insufficiency Optimal: Greater than or equal to 30 ng/mL Test performed by [employer] Competitive Immunoassay, measuring Total Vitamin D, not individual fractions. Performed By: #### V D25H #### [facility] [address] [place] [address] #### HEMOG, FOLT3, CMP3, FERR3, B12, TSH5, MG3, LIPD2, IRON3 #### [address] [address] #### ZINC2 #### The performing lab is in the report. CBCon 11-14-2021 Hematocrit (Bld) [Volume fraction] 42.3 % 35.0 - 47.0 % [facility] Hemoglobin.gastroin testinal spec 1 Ql (Stl) 13.7 g/dL 11.7 - 16.0 g/dL [facility] MCH (RBC) [Entitic mass] 30.9 pg 26.0 - 34.0 pg [facility] MCHC (RBC) [Mass/Vol] 32.4 % 32.0 - 36.0 % [facility] MCV (RBC) [Entitic vol] 95.4 fL 79.0 - 98.0 fL [facility] Platelet distribution width (Bld) [Ratio] 13.1 % 11.5 - 14.5 % [facility] Platelet mean volume (Bld) [Entitic vol] 8.9 fL 7.4 - 10.4 fL [facility] Platelets (Bld) [#/Vol] 255 10*3/uL 140 - 440 10*3/uL [facility] RBC (Bld) [#/Vol] 4.43 10*6/uL 3.80 - 5.2 0 10*6/uL [facility] WBC (Bld) [#/Vol] 6.1 10*3/uL 3.6 - 10.7 10*3/uL [facility] Test Performed by [facility], [address] [place] [address] LAB [facility] Comp Metabolic Panelon 11-14 Potassium [Moles/Vol] 3.6 mmol/L Normal 3.5-5.1 [facility] Comment on above: Performed By: #### V D25H #### [facility] [address] [place] [address] #### HEMOG, FOLT3, CMP3, FERR3, B12, TSH5, MG3, LIPD2, IRON3 #### [address] [address] #### ZINC2 #### The performing lab is in the report. ALT [Catalytic activity/Vol] 39 U/L High 0-34 [facility] Comment on above: Result Comment: The ALT test is performed by an updated assay method. Please note that the reference intervals have been changed and are now sex specific. Performed By: #### V D25H #### [facility] [address] [place] [address] #### HEMOG, FOLT3, CMP3, FERR3, B12, TSH5, MG3, LIPD2, IRON3 #### [address] [address] #### ZINC2 #### The performing lab is in the report. Calcium [Mass/Vol] 9.8 mg/dL Normal 8.4-10.4 [facility] Comment on above: Performed By: #### V D25H #### [facility] [address] [place] [address] #### HEMOG, FOLT3, CMP3, FERR3, B12, TSH5, MG3, LIPD2, IRON3 #### [address] [address] #### ZINC2 #### The performing lab is in the report. Glucose [Mass/Vol] 86 mg/dL Normal 70-100 [facility] Comment on above: Performed By: #### V D25H #### [facility] [address] [place] [address] #### HEMOG, FOLT3, CMP3, FERR3, B12, TSH5, MG3, LIPD2, IRON3 #### [address] [address] #### ZINC2 #### The performing lab is in the report. ALP [Catalytic activity/Vol] 100 U/L Normal 38-126 [facility] Comment on above: Performed By: #### V D25H #### [facility] [address] [facility] [place] [address] #### HEMOG, FOLT3, CMP3, FERR3, B12, TSH5, MG3, LIPD2, IRON3 #### [address] #### ZINC2 #### The performing lab is in the report. Anion gap [Moles/Vol] 9 mmol/L Normal 3-13 [facility] Comment on above: Performed By: #### V D25H #### [facility] [address] [place] [place] [address] #### HEMOG, FOLT3, CMP3, FERR3, B12, TSH5, MG3, LIPD2, IRON3 #### [address] #### ZINC2 #### The performing lab is in the report. AST [Catalytic activity/Vol] 37 U/L Normal 15-46 [facility] Comment on above: Performed By: #### V D25H #### [facility] [address] [place] [address] #### HEMOG, FOLT3, CMP3, FERR3, B12, TSH5, MG3, LIPD2, IRON3 #### [address] #### ZINC2 #### The performing lab is in the report. Bilirubin [Mass/Vol] 0.4 mg/dL Normal 0.2-1.3 [facility] Comment on above: Performed By: #### V D25H #### [address] [place], [place] #### HEMOG, FOLT3, CMP3, FERR3, B12, TSH5, MG3, LIPD2, IRON3 #### [address] #### ZINC2 #### The performing lab is in the report. CO2 [Moles/Vol] 25 mmol/L Normal 22-30 [facility] Comment on above: Performed By: #### V D25H #### [address] [place] [address] #### HEMOG, FOLT3, CMP3, FERR3, B12, TSH5, MG3, LIPD2, IRON3 #### [address] #### ZINC2 #### The performing lab is in the report. Creatinine [Mass/Vol] 0.66 mg/dL Normal 0.52-1.25 [facility] Comment on above: Performed By: #### V D25H #### [address] [place] [address] #### HEMOG, FOLT3, CMP3, FERR3, B12, TSH5, MG3, LIPD2, IRON3 #### [facility] [address] [place], [place] #### ZINC2 #### The performing lab is in the report. eGFR OTHER > 90.0 Normal >60 [facility] Comment on above: Result Comment: KDIG O guidelines provide the following GFR categories: Stage GFR(ml/min/1.73 m2) Terms G1 >=90 Normal or high G2 60-89 Mildly decreased* G3a 45-59 Mildly to moderately decreased G3b 30-44 Moderately to severely decreased G4 15-29 Severely decreased G5 <15 Kidney failure *Relative to young adult level. In the absence of evidence of kidney damage, neither GFR category G1 nor G2 fulfill the criteria for CKD. The CKD-EPI equation is validated in individuals 18 years of age and older. Currently the best equation for estimating glomerular filtration rate (GFR) from serum creatinine in children is the Bedside Vera equation. It is less accurate in patients with extremes of muscle mass, restriction of dietary protein, ingestion of creatine, extra-renal metabolism of creatinine, or treatment with medications that affect renal tubular creatinine secretion. Performed By: #### V D25H #### [facility] [address] [place] [address] #### HEMOG, FOLT3, CMP3, FERR3, B12, TSH5, MG3, LIPD2, IRON3 #### [facility] [address] #### ZINC2 #### The performing lab is in the report. GFR/1.73 sq M.predicted among blacks MDRD (S/P/Bld) [Vol rate/Area] mL/min/{1.73_m2} Normal >60 [facility] Comment on above: Performed By: #### V D25H #### [facility] [facility] [address] [place] [address] #### HEMOG, FOLT3, CMP3, FERR3, B12, TSH5, MG3, LIPD2, IRON3 #### [facility] [address] [place], [place] #### ZINC2 #### The performing lab is in the report. Protein [Mass/Vol] 7.7 g/dL Normal 6.3-8.2 [facility] Comment on above: Performed By: #### V D25H #### [facility] [address] [place] [address] #### HEMOG, FOLT3, CMP3, FERR3, B12, TSH5, MG3, LIPD2, IRON3 #### [facility] [address] [place], [place] #### ZINC2 #### The performing lab is in the report. Urea nitrogen [Mass/Vol] 16 mg/dL Normal 9-20 [facility] Comment on above: Performed By: #### V D25H #### [facility] [address] [place] [address] #### HEMOG, FOLT3, CMP3, FERR3, B12, TSH5, MG3, LIPD2, IRON3 #### [address] #### ZINC2 #### The performing lab is in the report. Chloride [Moles/Vol] 104 mmol/L Normal 98-107 [facility] Comment on above: Performed By: #### V D25H #### [facility] [address] [place] [address] #### HEMOG, FOLT3, CMP3, FERR3, B12, TSH5, MG3, LIPD2, IRON3 #### [address] #### ZINC2 #### The performing lab is in the report. Sodium [Moles/Vol] 137 mmol/L Normal 135-145 [facility] Comment on above: Performed By: #### V D25H #### [facility] [address] [place] [address] #### HEMOG, FOLT3, CMP3, FERR3, B12, TSH5, MG3, LIPD2, IRON3 #### [address] #### ZINC2 #### The performing lab is in the report. Albumin [Mass/Vol] 4.5 g/dL Normal 3.5-5.0 [facility] Comment on above: Performed By: #### V D25H #### [facility] [address] [place] [address] #### HEMOG, FOLT3, CMP3, FERR3, B12, TSH5, MG3, LIPD2, IRON3 #### [facility] [address] [facility] [address] #### ZINC2 #### The performing lab is in the report. Comprehensive Metabolic Pane kaitlynn 11-14-2021 Albumin [Mass/Vol] 4.5 g/dL 3.5 - 5.0 g/dL [facility] ALP (Bld) [Catalytic activity/Vol] 100 U/L 38 - 126 U/L [facility] ALT [Catalytic activity/Vol] 39 U/L High 0 - 34 U/L [facility] Comment on above: The ALT test is perf ormed by an updated assay method. Please note that the reference intervals have been changed and are now sex specific. Anion gap [Moles/Vol] 9 mmol/L 3 - 13 mmol/L [facility] AST [Catalytic activity/Vol] 37 U/L 15 - 46 U/L [facility] Bilirubin [Mass/Vol] 0.4 mg/dL 0.2 - 1.3 mg/dL [facility] Calcium [Mass/Vol] 9.8 mg/dL 8.4 - 10. 4 mg/dL [facility] Chloride [Moles/Vol] 104 mmol/L 98 - 107 mmol/L [facility] CO2 [Moles/Vol] 25 mmol/L 22 - 30 mmol/L [facility] Creatinine [Mass/Vol] 0.66 mg/dL 0.52 - 1.25 mg/dL [facility] EGFR IF NonAfrican Bruneian >90.0 >60 mL/min [facility] Comment on above: KDIGO guidelines pro vide the following GFR categories: Stage GFR(ml/min/1.73 m2) Terms G1 >=90 Normal or high G2 60-89 Mildly decreased* G3a 45-59 Mildly to moderately decreased G3b 30-44 Moderately to severely decreased G4 15-29 Severely decreased G5 <15 Kidney failure *Relative to young adult level. In the absence of evidence of kidney damage, neither GFR category G1 nor G2 fulfill the criteria for CKD. The CKD-EPI equation is validated in individuals 18 years of age and older. Currently the best equation for estimating glomerular filtration rate (GFR) from serum creatinine in children is the Bedside Vera equation. It is less accurate in patients with extremes of muscle mass, restriction of dietary protein, ingestion of creatine, extra-renal metabolism of creatinine, or treatment with medications that affect renal tubular creatinine secretion. Free PSA/Total PSA [Mass fraction] 7.7 g/dL 6.3 - 8.2 g/dL [facility] GFR/1.73 sq M.predicted among blacks MDRD (S/P/Bld) [Vol rate/Area] mL/min/{1.73_m2} >60 mL/min [facility] Glucose [Mass/Vol] 86 mg/dL 70 - 100 mg/dL [facility] Interpretation and review of laboratory results Abnormal [facility] Potassium [Moles/Vol] 3.6 mmol/L 3.5 - 5.1 mmol/L [facility] Sodium [Moles/Vol] 137 mmol/L 135 - 145 mmol/L [facility] Urea nitrogen (BldV) [Mass/Vol] 16 mg/dL 9 - 20 mg/dL [facility] Test Performed by [address] LAB [facility] Ferritinon 11-14-2021 Ferritin [Mass/Vol] 84 ng/mL Normal 11-264 [facility] Comment on above: Performed By: #### V D25H #### [facility] [address] [facility] [place] [address] #### HEMOG, FOLT3, CMP3, FERR3, B12, TSH5, MG3, LIPD2, IRON3 #### [address] [address] #### ZINC2 #### The performing lab is in the report. Ferritin [Mass/Vol] 84 ng/mL 11 - 264 ng/mL [facility] Test Performed by [address] LAB [facility] Folateon 11-14-2021 Folate 4.4 ng/mL Normal [facility] Comment on above: Result Comment: >2.8 Performed By: #### V D25H #### [facility] [address] [place] [address] #### HEMOG, FOLT3, CMP3, FERR3, B12, TSH5, MG3, LIPD2, IRON3 #### [address] #### ZINC2 #### The performing lab is in the report. Folate 4.4 ng/mL [facility] Comment on above: >2.8 Hemoglobin A1Con 11-14-2021 Glucose [Mass/Vol] 97 mg/dL Normal [facility] Comment on above: Performed By: #### V D25H #### [place] [address] [place] [address] #### HEMOG, FOLT3, CMP3, FERR3, B12, TSH5, MG3, LIPD2, IRON3 #### [address] #### ZINC2 #### The performing lab is in the report. HbA1c (Bld) [Mass fraction] 5.0 % Normal [facility] Comment on above: Result Comment: Norm al less than 5.7% Prediabetes 5.7% to 6.4% Diabetes 6.5% or higher --HgbA1C levels may not be accurate in patients who have renal disease, received recent blood transfusions, are anemic, or who have dyshemoglobinemia. Performed By: #### V D25H #### [place] [address] [place] [address] #### HEMOG, FOLT3, CMP3, FERR3, B12, TSH5, MG3, LIPD2, IRON3 #### [address] #### ZINC2 #### The performing lab is in the report. HbA1c (Bld) [Mass fraction] 5.0 % [facility] Comment on above: Normal less than 5.7 % Prediabetes 5.7% to 6.4% Diabetes 6.5% or higher --HgbA1C levels may not be accurate in patients who have renal disease, received recent blood transfusions, are anemic, or who have dyshemoglobinemia. Magnesium [Mass/Vol] 97 mg/dL [facility] Test Performed by [address], [place] [id number] [place] [address] LAB [facility] Hemogramon 11-14-2021 Erythrocyte distribution width (RBC) [Ratio] 13.1 % Normal 11.5-14.5 [facility] Comment on above: Performed By: #### V D25H #### [address] [place] [address] #### HEMOG, FOLT3, CMP3, FERR3, B12, TSH5, MG3, LIPD2, IRON3 #### [address] [address] #### ZINC2 #### The performing lab is in the report. Hematocrit (Bld) [Volume fraction] 42.3 % Normal 35.0-47.0 [facility] Comment on above: Performed By: #### V D25H #### [address] [place] [address] #### HEMOG, FOLT3, CMP3, FERR3, B12, TSH5, MG3, LIPD2, IRON3 #### [address] #### ZINC2 #### The performing lab is in the report. Hemoglobin (Bld) [Mass/Vol] 13.7 g/dL Normal 11.7-16.0 [facility] Comment on above: Performed By: #### V D25H #### [address] [place] [address] #### HEMOG, FOLT3, CMP3, FERR3, B12, TSH5, MG3, LIPD2, IRON3 #### [address] [address] #### ZINC2 #### The performing lab is in the report. MCH (RBC) [Entitic mass] 30.9 pg Normal 26.0-34.0 [facility] Comment on above: Performed By: #### V D25H #### [address] [place] [address] #### HEMOG, FOLT3, CMP3, FERR3, B12, TSH5, MG3, LIPD2, IRON3 #### [address] #### ZINC2 #### The performing lab is in the report. MCHC 32.4 % Normal 32.0-36.0 [facility] Comment on above: Performed By: #### V D25H #### [facility] [address] [place] [address] #### HEMOG, FOLT3, CMP3, FERR3, B12, TSH5, MG3, LIPD2, IRON3 #### [address] #### ZINC2 #### The performing lab is in the report. MCV (RBC) [Entitic vol] 95.4 fL Normal 79.0-98.0 [facility] Comment on above: Performed By: #### V D25H #### [facility] [address] [place] [address] #### HEMOG, FOLT3, CMP3, FERR3, B12, TSH5, MG3, LIPD2, IRON3 #### [address] #### ZINC2 #### The performing lab is in the report. Platelet mean volume (Bld) [Entitic vol] 8.9 fL Normal 7.4-10.4 [facility] Comment on above: Performed By: #### V D25H #### [facility] [address] [place] [address] #### HEMOG, FOLT3, CMP3, FERR3, B12, TSH5, MG3, LIPD2, IRON3 #### [address] #### ZINC2 #### The performing lab is in the report. Platelets (Bld) [#/Vol] 255 10*3/uL Normal 140-440 [facility] Comment on above: Performed By: #### V D25H #### [facility] [address] [place] [address] #### HEMOG, FOLT3, CMP3, FERR3, B12, TSH5, MG3, LIPD2, IRON3 #### [address] #### ZINC2 #### The performing lab is in the report. RBC (Bld) [#/Vol] 4.43 10*6/uL Normal 3.80-5.20 [facility] Comment on above: Performed By: #### V D25H #### [address] [place] [address] #### HEMOG, FOLT3, CMP3, FERR3, B12, TSH5, MG3, LIPD2, IRON3 #### [address] #### ZINC2 #### The performing lab is in the report. WBC (Bld) [#/Vol] 6.1 10*3/uL Normal 3.6-10.7 [facility] Comment on above: Performed By: #### V D25H #### [place] [address] #### HEMOG, FOLT3, CMP3, FERR3, B12, TSH5, MG3, LIPD2, IRON3 #### [address] #### ZINC2 #### The performing lab is in the report. Ironon 11-14-2021 Iron [Mass/Vol] 102 ug/dL 37 - 170 ug/dL [facility] Test Performed by [address] LAB [facility] Iron, Totalon 11-14-2021 Iron, Total 102 ug/dL Normal 37-170 [facility] Comment on above: Performed By: #### V D25H #### [address] [place] [address] #### HEMOG, FOLT3, CMP3, FERR3, B12, TSH5, MG3, LIPD2, IRON3 #### [address] [address] #### ZINC2 #### The performing lab is in the report. Lipid Panelon 11-14-2021 Chol/HDL 5 Normal [facility] Comment on above: Result Comment: Ref Range: < 3 Low Risk for CHD 3-6 Mod Risk for CHD > 6 High Risk for CHD Performed By: #### V D25H #### [facility] [address] [place] [address] #### HEMOG, FOLT3, CMP3, FERR3, B12, TSH5, MG3, LIPD2, IRON3 #### [address] #### ZINC2 #### The performing lab is in the report. Cholesterol in HDL [Mass/Vol] 37 mg/dL Low 40-60 [facility] Comment on above: Performed By: #### V D25H #### [facility] [address] [place] [address] #### HEMOG, FOLT3, CMP3, FERR3, B12, TSH5, MG3, LIPD2, IRON3 #### [address] #### ZINC2 #### The performing lab is in the report. Low Density Lipoprotein 120 mg/dL Abnormal <100 [facility] Comment on above: Performed By: #### V D25H #### [facility] [address] [place] [address] #### HEMOG, FOLT3, CMP3, FERR3, B12, TSH5, MG3, LIPD2, IRON3 #### [address] #### ZINC2 #### The performing lab is in the report. Triglyceride [Mass/Vol] 207 mg/dL Abnormal <150 [facility] Comment on above: Performed By: #### V D25H #### [facility] [address] [place] [place] [address] #### HEMOG, FOLT3, CMP3, FERR3, B12, TSH5, MG3, LIPD2, IRON3 #### [address] #### ZINC2 #### The performing lab is in the report. Cholesterol [Mass/Vol] 198 mg/dL Normal < 200 [facility] Comment on above: Performed By: #### V D25H #### [facility] [address] [place] [address] #### HEMOG, FOLT3, CMP3, FERR3, B12, TSH5, MG3, LIPD2, IRON3 #### [facility] [address] [place] #### ZINC2 #### The performing lab is in the report. Cholesterol [Mass/Vol] 198 mg/dL <200 [facility] Cholesterol in HDL [Mass/Vol] 37 mg/dL Low 40 - 60 mg/dL [facility] Cholesterol in LDL [Mass/Vol] 120 mg/dL Abnormal <100 [facility] Cholesterol.total/C holesterol in HDL [Mass ratio] 5 {ratio} [facility] Comment on above: Ref Range: < 3 Low Risk for CHD 3-6 Mod Risk for CHD > 6 High Risk for CHD Interpretation and review of laboratory results Abnormal [facility] Triglyceride [Mass/Vol] 207 mg/dL Abnormal <150 [facility] Magnesiumon 11-14-2021 Magnesium [Mass/Vol] 2.1 mg/dL Normal 1.6-2.3 [facility] Comment on above: Performed By: #### V D25H #### [facility] [address] [place] [address] #### HEMOG, FOLT3, CMP3, FERR3, B12, TSH5, MG3, LIPD2, IRON3 #### [address] #### ZINC2 #### The performing lab is in the report. Magnesium [Mass/Vol] 2.1 mg/dL 1.6 - 2.3 mg/dL [facility] No Panel Informationon 11-14 Test Performed by [id number] [place] [address] LAB [facility] Test Performed by [facility], [address] [place] [id number] [place] [address] LAB [facility] TSH without Reflexon 022 TSH Qn 2.214 u[IU]/mL 0.465 - 4.680 u[IU]/mL [facility] Test Performed by [facility], [address] [place] [id number] [facility] LAB [facility] Thyroid Stim. Hormoneon Thyroid Stim. Hormone 2.214 u[IU]/mL Normal 0.465-4.680 [facility] Comment on above: Performed By: #### V D25H #### [address] [place] [address] #### HEMOG, FOLT3, CMP3, FERR3, B12, TSH5, MG3, LIPD2, IRON3 #### [address] [address] #### ZINC2 #### The performing lab is in the report. Vitamin B12on 11-14-2021 Cobalamin (Vitamin B12) [Mass/Vol] pg/mL High 239-931 [facility] Comment on above: Performed By: #### V D25H #### [facility] [address] [place] [place] [address] #### HEMOG, FOLT3, CMP3, FERR3, B12, TSH5, MG3, LIPD2, IRON3 #### [address] [address] #### ZINC2 #### The performing lab is in the report. Cobalamin (Vitamin B12) [Mass/Vol] pg/mL High 239 - 931 pg/mL [facility] Interpretation and review of laboratory results Abnormal [facility] Basophil percentageon 2021 Bilirubin [Mass/Vol] 0.40 mg/dL 0.20-1.00 [facility] Work Phone: Comment on above: For patients on eltr ombopag therapy, use of Dimension [place] TBIL is not recommended. Chloride [Moles/Vol] 107 mmol/L 98-107 [facility] Work Phone: Cholesterol [Mass/Vol] 174 mg/dL <200 [facility] Work Phone: Comment on above: <200 mg/dL Desirable 200-240 mg/dL Borderline >240 mg/dL High Risk Glucose [Mass/Vol] 95 mg/dL 74-106 [facility] Work Phone: Potassium [Moles/Vol] 3.5 mmol/L 3.5-5.1 [facility] Work Phone: Protein [Mass/Vol] 7.3 g/dL 6.4-8.2 [facility] Work Phone: Sodium [Moles/Vol] 139 mmol/L 136-145 [facility] Work Phone: Triglyceride [Mass/Vol] 166 mg/dL [facility] Work Phone: Comment on above: The drugs N-Acetylcy steine and Metamizole may falsely depress this assay.Serum Triglycerides Reference Interval Normal <150 mg/dL Borderline high 150 - 199 mg/dL High 200 - 499 mg/dL Very High > or = 500 mg/dL WBC (Bld) [#/Vol] 5.2 10*3/uL 4.4-11.0 [facility] Work Phone: Blood erythrocytes count (nu mber/volume)on 11-01-2021 RBC (Bld) [#/Vol] 4.53 10*6/uL 4.2-5.4 [facility] Work Phone: Blood hemoglobin measurement (mass/volume)on 11-01-2021 Hemoglobin (Bld) [Mass/Vol] 14.1 g/dL 12.0-15.0 [facility] Work Phone: Blood platelet mean volumeon 11-01-2021 Platelet mean volume (Bld) [Entitic vol] 9.7 fL 6.2-12.0 [facility] Work Phone: Determination of erythrocyte mean corpuscular volume (MCV)on 11-01-2021 MCV (RBC) [Entitic vol] 95.4 fL 81-99 [facility] Work Phone: Hematocrit Auto (Bld) [Volum e fraction]on 11-01-2021 Hematocrit (Bld) [Volume fraction] 43.2 % 37-47 [facility] Work Phone: Iron measurement (mass/mass) on 11-01-2021 Iron (Unsp spec) [Mass/Mass] 112 ug/dL 50-170 [facility] System Work Phone: Laboratory - Chemistry and C hemistry - challengeon 11-01-2021 ALP [Catalytic activity/Vol] 93 U/L 45-117 [facility] Work Phone: ALT [Catalytic activity/Vol] 41 U/L 13-56 [facility] Work Phone: CO2 [Moles/Vol] 24.0 mmol/L 21.0-32.0 [facility] Work Phone: Globulin (S) [Mass/Vol] 3.6 g/dL 2.2-4.2 [facility] Work Phone: Magnesium [Mass/Vol] 2.0 mg/dL 1.6-2.6 [facility] Work Phone: Urea nitrogen/Creatinine [Mass ratio] 16.0 mg/mg 10-20 [facility] Work Phone: Laboratory - Hematology and Cell countson 11-01-2021 Erythrocyte distribution width (RBC) [Entitic vol] 42.5 fL 35.1-43.9 [facility] Work Phone: Erythrocyte distribution width (RBC) [Ratio] 12.1 % 11.6-14.6 [facility] Work Phone: MCH (RBC) [Entitic mass] 31.1 pg 27.0-32.0 [facility] Work Phone: [phone] MCHC Auto (RBC) [Mass/Vol]on 11-01-2021 MCHC (RBC) [Mass/Vol] 32.6 g/dL 32-36 [facility] Work Phone: No Panel Informationon 11-01 Estimated GFR (MDRD) Amer 95 mL/min >60 [facility] Work Phone: Comment on above: GFR Calc Estimated GFR (MDRD) Non-Af Amer 78 mL/min >60 [facility] Work Phone: Comment on above: Non- GFR Calc Thyroid Stimulating Hormone (TSH) 1.68 uIU/mL 0.358-3.74 [facility] Work Phone: Vitamin B12 Level > 2000 pg/mL [phone] [facility] Work Phone: Vitamin D 25-Hydroxy 54.0 ng/mL [facility] Work Phone: Comment on above: Vitamin D 25(OH) Sta tus Range Deficiency <20 ng/mL (50nmol/L) Insufficiency 20 - 30 ng/mL (50 - 75 nmol/L) Sufficiency 30 - 100 ng/mL (75 - 250 nmol/L) Toxicity >100 ng/mL (>250 nmol/L) Whole Blood Vitamin B1 Level 93.3 nmol/L [facility] Work Phone: Platelets bldon 11-01-2021 Platelets (Bld) [#/Vol] 282 10*3/uL 150-450 [facility] Work Phone: Serum or plasma albumin andrés urement (mass/volume)on 11-01-2021 Albumin [Mass/Vol] 3.7 g/dL 3.2-5.0 [facility] Work Phone: Serum or plasma albumin/glob ulin mass ratioon 11-01-2021 Albumin/Globulin [Mass ratio] 1.0 {ratio} 0.9-2.4 [facility] Work Phone: Serum or plasma calcium andrés urement (mass/volume)on 11-01-2021 Calcium [Mass/Vol] 8.8 mg/dL 8.5-10.1 [facility] Work Phone: Serum or plasma cholesterol in HDL measurement (mass/volume)on 11-01-2021 Cholesterol in HDL [Mass/Vol] 37 mg/dL [facility] Work Phone: Comment on above: The drugs N-Acetylcy steine and Metamizole may falsely depress this assay. Reference Range HDL <40 mg/dL Low HDL Cholesterol HDL >or= 60 mg/dL High HDL Cholesterol Serum or plasma cholesterol in VLDL measurement (mass/volume)on 11-01-2021 Cholesterol in VLDL [Mass/Vol] 33 mg/dL 5-40 [facility] Work Phone: Serum or plasma creatinine m easurement (mass/volume)on 11-01-2021 Creatinine [Mass/Vol] 0.81 mg/dL 0.55-1.02 [facility] Work Phone: Comment on above: The validity of the calculated GFR & GFRAA in patients over 70 years has not been determined. Clinical correlation is essential. Serum or plasma ferritin day surement (mass/volume)on 11-01-2021 Ferritin [Mass/Vol] 99 ng/mL 8-252 [facility] Work Phone: Serum or plasma folate measu rement (mass/volume)on 11-01-2021 Folate [Mass/Vol] 5.50 ng/mL 3.1-55.4 [facility] Work Phone: Serum or plasma low density lipoprotein (LDL) cholesterol measurement (mass/volume)on 11-01-2021 Cholesterol in LDL [Mass/Vol] 104 mg/dL 0-130 [facility] Work Phone: Serum or plasma urea nitroge n measurement (mass/volume)on 11-01-2021 Urea nitrogen [Mass/Vol] 13 mg/dL 7-18 [facility] Work Phone: Serum or plasma zinc measure ment (mass/volume)on 11-01-2021 Zinc [Mass/Vol] 97 ug/dL [facility] Work Phone: Comment on above: Detection Limit = 5P erformed at: - [facility] [address] [place], [place] [id number] Director: Pranav Aparicio MD, Phone: [phone] Thin prep Papanicolaou smear with manual screeningon 11-01-2021 Thin prep Papanicolaou smear with manual screening 27 U/L 15-37 [facility] Work Phone: Thin prep Papanicolaou smear with manual screening 8 5-15 [facility] Work Phone: Whole blood hemoglobin A1c/t otal hemoglobin ratio (mass fraction)on 11-01-2021 HbA1c (Bld) [Mass fraction] 4.9 % 3.8-5.6 [facility] Work Phone: Comment on above: Normal < 5.7 % Predi abetic 5.7 - 6.4 % Diabetic >or= 6.5 % Please note range changes. RF UGI w/o KUB w/ or w/o Del ay Flmon 10-09-2021 RF UGI w/o KUB w/ or w/o Delay Flm Patient Name: SANTOS ALLAN Fluoroscopy ACCESSION EXAM DATE/TIME PROCEDURE ORDERING PROVIDER [id number] 10/09/2021 08:42 EST RF UGI w/o KUB and w/ or [id number] -GARRET BURT w/o Delay Flm CPT code 95729 Reason For Exam (RF UGI w/o KUB and w/ or w/o Delay Flm) Heartburn Report AIR CONTRAST UGI SERIES CLINICAL INDICATIONS: 55-year-old female: Hiatal hernia, with increased reflux. History of gastric lap band in 2007. COMPARISON: None FLUOROSCOPY TIME: 1.35minutes. FLUOROSCOPIC EXPOSURES: 35 TECHNIQUE: Biphasic exam was performed with barium and air. FINDINGS: Planning Lead abdominal image demonstrates a nonspecific nonobstructive bowel gas pattern. There is a gastric lap band is demonstrated below the left hemidiaphragm. A subcutaneous port is noted without the tubing. Barium and air are administered. The esophagus is studied in the upright as well as the horizontal positions. The proximal and mid segment of the esophagus appears normal in course and caliber. The distal esophagus appears torturous. Irregular and prominent esophageal folds visualized diffusely throughout the esophagus. Moderate tertiary contractions, decreased peristalsis with retropulsion and severe stasis were visualized during the exam, which may suggest an element of dysmotility. There is a hiatal hernia with a persistent outpouching within the hernia. Mild gastroesophageal reflux. Barium flows freely from the esophagus into the stomach. There is a gastric lap band demonstrated below the left hemidiaphragm. The PHI angle measures 48.9 and the superolateral border measures 30.1 mm from the left hemidiaphragm. There appears to be herniation of the gastric fundus with slippage of the lap band. Barium passes readily from the esophagus into the stomach without obstruction. There are multiple persistent polypoid structure visualized within the gastric body. Mildly prominent duodenal folds. The visualized proximal jejunum is unremarkable. IMPRESSION: Fluoroscopy Report 1. 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 PHI angle measurement of 48.9 and superior lateral border measurement of 30.1 mm. 2. Torturous appearance to the distal esophagus. 3. Mild gastroesophageal reflux. 4. Multiple persistent polypoid structures visualized within the gastric body and fundus, which may represent a gastric polyp versus air bubbles. Endoscopy may be helpful in further evaluation. 5. Mildly prominent duodenal folds suggesting an element of duodenitis. 6. Irregular and prominent esophageal folds suggesting an element of esophagitis. 7. Element of dysmotility as described above with moderate tertiary contractions. Report Dictated on Final Dictated: 10/09/2021 10:15 am Dictating Physician: MD MILES JONATHAN R Signed Date and Time: 10/09/2021 1:44 pm Signed by: MD MILES JONATHAN R Transcribed Date and Time: 10/09/2021 11:51 Normal [facility] , urineOrdered By: Rubin Washington on 10-13-2019 Beta HCG ( test) Ql (U) Negative Negative NA [facility] Work Phone: Comment on above: is the mos t common reason for HCG in urine, although choriocarcinoma, hydatidiform mole, and certain nontropho- blastic malignancies also result in detectable urinary HCG levels. Sensitivity = 20mIU/mL. [facility] , [address] Work Phone: Vital Signs Date Time Vital Sign Value Performing Clinician Facility 05-11-2025 07:40-0400 Diastolic blood pressure 72 mm[Hg] Fior 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 Work Phone: [facility] Comment on above: BP Ismael 05-11-2025 07:40-0400 Systolic blood pressure 116 mm[Hg] Fior 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 Work Phone: [facility] Comment on above: BP Ismael 05-11-2025 07:31-0400 Body mass index (BMI) [Ratio] 28.41 kg/m2 Fior 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 Work Phone: [facility] 05-11-2025 07:31-0400 Body weight 79.83 kg Fior 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 Work Phone: [facility] 05-11-2025 07:31-0400 Respiratory rate 16 /min Fior 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 Work Phone: [facility] 05-07-2025 15:52-0400 Body mass index (BMI) [Ratio] 28.34 kg/m2 Ash Chowdhury MD Work Phone: [facility] 05-07-2025 15:52-0400 Body weight 79.65 kg Ash Chowdhury MD Work Phone: [facility] 05-07-2025 15:52-0400 Diastolic blood pressure 84 mm[Hg] Ash Chowdhury MD Work Phone: [facility] 05-07-2025 15:52-0400 Systolic blood pressure 120 mm[Hg] Ash Chowdhury MD Work Phone: [facility] 05-02-2025 15:35-0400 Body mass index (BMI) [Ratio] 28.89 kg/m2 Fior 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 Work Phone: [facility] 05-02-2025 15:35-0400 Body weight 81.19 kg Fior 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 Work Phone: [facility] 05-02-2025 15:35-0400 Diastolic blood pressure 100 mm[Hg] Fior 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 Work Phone: [facility] 05-02-2025 15:35-0400 Heart rate 76 /min Fior 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 Work Phone: [facility] 05-02-2025 15:35-0400 Respiratory rate 16 /min Fior 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 Work Phone: [facility] 05-02-2025 15:35-0400 SaO2% (BldA) [Mass fraction] 100 % Fior 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 Work Phone: [facility] 05-02-2025 15:35-0400 Systolic blood pressure 162 mm[Hg] Fior 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 Work Phone: [facility] 04-10-2025 09:33-0400 Body mass index (BMI) [Ratio] 29.05 kg/m2 Angelique Bogner PA-C Work Phone: [facility] 04-10-2025 09:33-0400 Body temperature 97.5 [degF] Angelique Bogner PA-C Work Phone: [facility] 04-10-2025 09:33-0400 Body weight 81.65 kg Angelique Bogner PA-C Work Phone: [facility] 04-10-2025 09:33-0400 Diastolic blood pressure 81 mm[Hg] Angelique Bogner PA-C Work Phone: [facility] 04-10-2025 09:33-0400 Heart rate 71 /min Angelique Bogner PA-C Work Phone: [facility] 04-10-2025 09:33-0400 SaO2% (BldA) [Mass fraction] 97 % Angelique Bogner PA-C Work Phone: [facility] 04-10-2025 09:33-0400 Systolic blood pressure 126 mm[Hg] Angelique Bogner PA-C Work Phone: [facility] 04-09-2025 09:29-0400 Body height 167.6 cm Ash Chowdhury MD Work Phone: [facility] 04-09-2025 09:29-0400 Body mass index (BMI) [Ratio] 28.92 kg/m2 Ash Chowdhury MD Work Phone: [facility] 04-09-2025 09:29-0400 Body weight 81.28 kg Ash Chowdhury MD Work Phone: [facility] 04-09-2025 09:29-0400 Diastolic blood pressure 75 mm[Hg] Ash Chowdhury MD Work Phone: [facility] 04-09-2025 09:29-0400 Heart rate 76 /min Ash Chowdhury MD Work Phone: [facility] 04-09-2025 09:29-0400 Respiratory rate 14 /min Ash Chowdhury MD Work Phone: [facility] 04-09-2025 09:29-0400 SaO2% (BldA) [Mass fraction] 98 % Ash Chowdhury MD Work Phone: [facility] 04-09-2025 09:29-0400 Systolic blood pressure 116 mm[Hg] Ash Chowdhury MD Work Phone: [facility] 03-30-2025 07:21-0400 Body height 167.6 cm Fior 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 Work Phone: [facility] 03-30-2025 07:21-0400 Body mass index (BMI) [Ratio] 28.57 kg/m2 Fior 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 Work Phone: [facility] 03-30-2025 07:21-0400 Body temperature 98.2 [degF] Fior 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 Work Phone: [facility] 03-30-2025 07:21-0400 Body weight 80.29 kg Fior 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 Work Phone: [facility] 03-30-2025 07:21-0400 Diastolic blood pressure 70 mm[Hg] Fior 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 Work Phone: [facility] 03-30-2025 07:21-0400 Heart rate 76 /min Fior 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 Work Phone: [facility] 03-30-2025 07:21-0400 Respiratory rate 18 /min Fior 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 Work Phone: [facility] 03-30-2025 07:21-0400 SaO2% (BldA) [Mass fraction] 99 % Fior 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 Work Phone: [facility] 03-30-2025 07:21-0400 Systolic blood pressure 102 mm[Hg] Fior 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 Work Phone: [facility] 03-28-2025 15:56-0400 Body mass index (BMI) [Ratio] 28.09 kg/m2 Luz Queener PA-C Work Phone: [facility] 03-28-2025 15:56-0400 Body weight 79.47 kg Luz Queener PA-C Work Phone: [facility] 03-28-2025 15:56-0400 Diastolic blood pressure 74 mm[Hg] Luz Queener PA-C Work Phone: [facility] 03-28-2025 15:56-0400 Heart rate 81 /min Luz Queener PA-C Work Phone: [facility] 03-28-2025 15:56-0400 Respiratory rate 16 /min Luz Queener PA-C Work Phone: [facility] 03-28-2025 15:56-0400 SaO2% (BldA) [Mass fraction] 99 % Luz Queener PA-C Work Phone: [facility] 03-28-2025 15:56-0400 Systolic blood pressure 105 mm[Hg] Luz Queener PA-C Work Phone: [facility] 03-12-2025 08:50-0400 Body mass index (BMI) [Ratio] 28.96 kg/m2 Ana Bolaños MD Work Phone: [facility] 03-12-2025 08:50-0400 Body weight 81.92 kg Ana Bolaños MD Work Phone: [facility] 03-12-2025 08:50-0400 Diastolic blood pressure 82 mm[Hg] nAa Bolaños MD Work Phone: [facility] 03-12-2025 08:50-0400 Heart rate 87 /min Ana Bolaños MD Work Phone: [facility] 03-12-2025 08:50-0400 SaO2% (BldA) [Mass fraction] 96 % Ana Bolaños MD Work Phone: [facility] 03-12-2025 08:50-0400 Systolic blood pressure 118 mm[Hg] Ana Bolaños MD Work Phone: [facility] 03-07-2025 07:48-0400 Body mass index (BMI) [Ratio] 29.13 kg/m2 Jacquie Fermin PENCIL MAKER.ELECTRONIC CALIBRATION TECHNICIAN Work Phone: [facility] 03-07-2025 07:48-0400 Body temperature 97.5 [degF] Jacquie Fermin PENCIL MAKER.ELECTRONIC CALIBRATION TECHNICIAN Work Phone: [facility] 03-07-2025 07:48-0400 Body weight 82.4 kg Jacquie Fermin PENCIL MAKER.ELECTRONIC CALIBRATION TECHNICIAN Work Phone: [facility] 03-07-2025 07:48-0400 Diastolic blood pressure 78 mm[Hg] Jacquie Fermin PENCIL MAKER.ELECTRONIC CALIBRATION TECHNICIAN Work Phone: [facility] 03-07-2025 07:48-0400 Heart rate 84 /min Jacquie Fermin PENCIL MAKER.ELECTRONIC CALIBRATION TECHNICIAN Work Phone: [facility] 03-07-2025 07:48-0400 Respiratory rate 16 /min Jacquie Fermin PENCIL MAKER.ELECTRONIC CALIBRATION TECHNICIAN Work Phone: [facility] 03-07-2025 07:48-0400 SaO2% (BldA) [Mass fraction] 99 % Jacquie Fermin PENCIL MAKER.ELECTRONIC CALIBRATION TECHNICIAN Work Phone: [facility] 03-07-2025 07:48-0400 Systolic blood pressure 120 mm[Hg] Jacquie Fermin PENCIL MAKER.ELECTRONIC CALIBRATION TECHNICIAN Work Phone: [facility] 02-08-2025 14:51-0400 Body mass index (BMI) [Ratio] 29.02 kg/m2 Richie Haury PENCIL MAKER.ELECTRONIC CALIBRATION TECHNICIAN Work Phone: [facility] 02-08-2025 14:51-0400 Body weight 82.1 kg Richie Haury PENCIL MAKER.ELECTRONIC CALIBRATION TECHNICIAN Work Phone: [facility] 02-08-2025 14:51-0400 Diastolic blood pressure 78 mm[Hg] Richie Haury PENCIL MAKER.ELECTRONIC CALIBRATION TECHNICIAN Work Phone: [facility] 02-08-2025 14:51-0400 Systolic blood pressure 118 mm[Hg] Richie Haury PENCIL MAKER.ELECTRONIC CALIBRATION TECHNICIAN Work Phone: [facility] 01-25-2025 09:36-0400 Body mass index (BMI) [Ratio] 29.82 kg/m2 Fior 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 Work Phone: [facility] 01-25-2025 09:36-0400 Body weight 84.37 kg Fior 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 Work Phone: [facility] 01-25-2025 09:36-0400 Diastolic blood pressure 94 mm[Hg] Fior 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 Work Phone: [facility] 01-25-2025 09:36-0400 Heart rate 87 /min Fior 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 Work Phone: [facility] 01-25-2025 09:36-0400 Respiratory rate 16 /min Fior 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 Work Phone: [facility] 01-25-2025 09:36-0400 SaO2% (BldA) [Mass fraction] 98 % Fior 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 Work Phone: [facility] 01-25-2025 09:36-0400 Systolic blood pressure 134 mm[Hg] Fior Alvarez APRN.ELECTRONIC CALIBRATION TECHNICIAN Work Phone: [facility] 11-10-2024 08:38-0500 Diastolic blood pressure 83 mm[Hg] Ana Bolaños MD Work Phone: [facility] 11-10-2024 08:38-0500 Heart rate 85 /min Ana Bolaños MD Work Phone: [facility] 11-10-2024 08:38-0500 Systolic blood pressure 127 mm[Hg] Ana Bolaños MD Work Phone: [facility] 11-10-2024 07:59-0500 Body mass index (BMI) [Ratio] 31.46 kg/m2 Ana Bolaños MD Work Phone: [facility] 11-10-2024 07:59-0500 Body weight 89 kg Ana Bolaños MD Work Phone: [facility] 11-10-2024 07:59-0500 Respiratory rate 16 /min Ana Bolaños MD Work Phone: [facility] 09-05-2024 06:57-0500 Body height 168.2 cm Katarina Searcy PENCIL MAKER.ELECTRONIC CALIBRATION TECHNICIAN Work Phone: [facility] 09-05-2024 06:57-0500 Body mass index (BMI) [Ratio] 33.7 kg/m2 Katarina Bessie PENCIL MAKER.ELECTRONIC CALIBRATION TECHNICIAN Work Phone: [facility] 09-05-2024 06:57-0500 Body weight 95.35 kg Katarina Bessie PENCIL MAKER.ELECTRONIC CALIBRATION TECHNICIAN Work Phone: [facility] 09-05-2024 06:57-0500 Diastolic blood pressure 72 mm[Hg] Katarina Searcy PENCIL MAKER.ELECTRONIC CALIBRATION TECHNICIAN Work Phone: [facility] 09-05-2024 06:57-0500 Systolic blood pressure 124 mm[Hg] Katarina Bessie PENCIL MAKER.ELECTRONIC CALIBRATION TECHNICIAN Work Phone: [facility] 11-29-2024 08:52-0500 Diastolic blood pressure 80 mm[Hg] Ana Bolaños MD Work Phone: [facility] 08-11-2024 08:52-0500 Systolic blood pressure 116 mm[Hg] Ana Bolaños MD Work Phone: [facility] 08-11-2024 08:50-0500 Body mass index (BMI) [Ratio] 34.51 kg/m2 Ana Bolaños MD Work Phone: [facility] 08-11-2024 08:50-0500 Body weight 97.41 kg Ana Bolaños MD Work Phone: [facility] 08-11-2024 08:50-0500 Heart rate 91 /min Ana Bolaños MD Work Phone: [facility] 08-11-2024 08:50-0500 SaO2% (BldA) [Mass fraction] 97 % Ana Bolaños MD Work Phone: [facility] 07-18-2024 16:14-0500 Body mass index (BMI) [Ratio] 35.43 kg/m2 Luz Queener PA-C Work Phone: [facility] 07-18-2024 16:14-0500 Body weight 100 kg Luz Queener PA-C Work Phone: [facility] 07-18-2024 16:14-0500 Diastolic blood pressure 85 mm[Hg] Luz Queener PA-C Work Phone: [facility] 07-18-2024 16:14-0500 Heart rate 87 /min Luz Queener PA-C Work Phone: [facility] 07-18-2024 16:14-0500 Respiratory rate 12 /min Luz Queener PA-C Work Phone: [facility] 07-18-2024 16:14-0500 SaO2% (BldA) [Mass fraction] 96 % Luz Queener PA-C Work Phone: [facility] 07-18-2024 16:14-0500 Systolic blood pressure 128 mm[Hg] Luz Christinaer PA-C Work Phone: [facility] 05-09-2024 08:11-0400 Body height 168 cm Ana Bolaños MD Work Phone: [facility] 05-09-2024 08:11-0400 Body mass index (BMI) [Ratio] 38.44 kg/m2 Ana Bolaños MD Work Phone: [facility] 05-09-2024 08:11-0400 Body weight 108.5 kg Ana Bolaños MD Work Phone: [facility] 05-09-2024 08:11-0400 Diastolic blood pressure 78 mm[Hg] Ana Bolaños MD Work Phone: [facility] 05-09-2024 08:11-0400 Heart rate 80 /min Ana Bolaños MD Work Phone: [facility] 05-09-2024 08:11-0400 SaO2% (BldA) [Mass fraction] 97 % Ana Bolaños MD Work Phone: [facility] 05-09-2024 08:11-0400 Systolic blood pressure 124 mm[Hg] Ana Bolaños MD Work Phone: [facility] 03-28-2024 06:56-0400 Body mass index (BMI) [Ratio] 38.77 kg/m2 Luz Christinaer PA-C Work Phone: [facility] 03-28-2024 06:56-0400 Body weight 109.77 kg Luz Christinaer PA-C Work Phone: [facility] 03-28-2024 06:56-0400 Diastolic blood pressure 74 mm[Hg] Luz Christinaer PA-C Work Phone: [facility] 03-28-2024 06:56-0400 Heart rate 80 /min Luz Queener PA-C Work Phone: [facility] 03-28-2024 06:56-0400 Respiratory rate 16 /min Luz Christinaer PA-C Work Phone: [facility] 03-28-2024 06:56-0400 SaO2% (BldA) [Mass fraction] 97 % Luz Meeks PA-C Work Phone: [facility] 03-28-2024 06:56-0400 Systolic blood pressure 132 mm[Hg] Luz POLLOCK-C Work Phone: [facility] 03-03-2024 06:57-0400 Body mass index (BMI) [Ratio] 38.61 kg/m2 Jacquie Fermin PENCIL MAKER.ELECTRONIC CALIBRATION TECHNICIAN Work Phone: [facility] 03-03-2024 06:57-0400 Body weight 109.32 kg Jacquie Fermin PENCIL MAKER.ELECTRONIC CALIBRATION TECHNICIAN Work Phone: [facility] 03-03-2024 06:57-0400 Diastolic blood pressure 84 mm[Hg] Jacquie Fermin PENCIL MAKER.ELECTRONIC CALIBRATION TECHNICIAN Work Phone: [facility] 03-03-2024 06:57-0400 Heart rate 89 /min Jacquie PedersenFermin PENCIL MAKER.ELECTRONIC CALIBRATION TECHNICIAN Work Phone: [facility] 03-03-2024 06:57-0400 Respiratory rate 16 /min Jacquie Fermin PENCIL MAKER.ELECTRONIC CALIBRATION TECHNICIAN Work Phone: [facility] 03-03-2024 06:57-0400 SaO2% (BldA) [Mass fraction] 94 % Jacquie SpannFermin PENCIL MAKER.ELECTRONIC CALIBRATION TECHNICIAN Work Phone: [facility] 03-03-2024 06:57-0400 Systolic blood pressure 118 mm[Hg] Jacquie Fermin PENCIL MAKER.ELECTRONIC CALIBRATION TECHNICIAN Work Phone: [facility] 02-04-2024 07:04-0400 Body mass index (BMI) [Ratio] 39.57 kg/m2 Jacquie Fermin PENCIL MAKER.ELECTRONIC CALIBRATION TECHNICIAN Work Phone: [facility] 02-04-2024 07:04-0400 Body weight 112.04 kg Jacquie Fermin PENCIL MAKER.ELECTRONIC CALIBRATION TECHNICIAN Work Phone: [facility] 02-04-2024 07:04-0400 Diastolic blood pressure 88 mm[Hg] Jacquie Fermin PENCIL MAKER.ELECTRONIC CALIBRATION TECHNICIAN Work Phone: [facility] 02-04-2024 07:04-0400 Heart rate 84 /min Jacquie Fermin PENCIL MAKER.ELECTRONIC CALIBRATION TECHNICIAN Work Phone: [facility] 02-04-2024 07:04-0400 Respiratory rate 16 /min Jacquie Fermin PENCIL MAKER.ELECTRONIC CALIBRATION TECHNICIAN Work Phone: [facility] 02-04-2024 07:04-0400 SaO2% (BldA) [Mass fraction] 95 % Jacquie Fermin PENCIL MAKER.ELECTRONIC CALIBRATION TECHNICIAN Work Phone: [facility] 02-04-2024 07:04-0400 Systolic blood pressure 128 mm[Hg] Jacquie Fermin PENCIL MAKER.ELECTRONIC CALIBRATION TECHNICIAN Work Phone: [facility] 01-07-2024 09:26-0400 Diastolic blood pressure 70 mm[Hg] Fior 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 Work Phone: [facility] 01-07-2024 09:26-0400 Systolic blood pressure 113 mm[Hg] Fior 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 Work Phone: [facility] [facility] 01-07-2024 07:23-0400 Body mass index (BMI) [Ratio] 39.09 kg/m2 Fior 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 Work Phone: [facility] 01-07-2024 07:23-0400 Body weight 110.68 kg Fior 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 Work Phone: [facility] 01-07-2024 07:23-0400 Heart rate 84 /min Fior 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 Work Phone: [facility] 01-07-2024 07:23-0400 Respiratory rate 16 /min Fior 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 Work Phone: [facility] 01-07-2024 07:23-0400 SaO2% (BldA) [Mass fraction] 96 % Fior 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 Work Phone: [facility] 09-02-2023 10:22-0500 Body height 168.3 cm Gavin Moctezuma MD Work Phone: [facility] 09-02-2023 10:22-0500 Body mass index (BMI) [Ratio] 36.68 kg/m2 Gavin Moctezuma MD Work Phone: [facility] 09-02-2023 10:22-0500 Body temperature 96.49 [degF] Gavin Moctezuma MD Work Phone: [facility] 09-02-2023 10:22-0500 Body weight 103.87 kg Gavin Moctezuma MD Work Phone: [facility] 09-02-2023 10:22-0500 Diastolic blood pressure 83 mm[Hg] Gavin Moctezuma MD Work Phone: [facility] 09-02-2023 10:22-0500 Heart rate 85 /min Gavin Moctezuma MD Work Phone: [facility] 09-02-2023 10:22-0500 Respiratory rate 16 /min Gavin Moctezuma MD Work Phone: [facility] 09-02-2023 10:22-0500 Systolic blood pressure 128 mm[Hg] Gavin Moctezuma MD Work Phone: [facility] 08-19-2023 07:53-0500 Body weight 103.42 kg Fior 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 Work Phone: [facility] 08-19-2023 07:53-0500 Diastolic blood pressure 84 mm[Hg] Fior 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 Work Phone: [facility] 08-19-2023 07:53-0500 Heart rate 76 /min Fior 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 Work Phone: [facility] 08-19-2023 07:53-0500 Respiratory rate 16 /min Fior 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 Work Phone: [facility] 08-19-2023 07:53-0500 SaO2% (BldA) [Mass fraction] 96 % Fior 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 Work Phone: [facility] 08-19-2023 07:53-0500 Systolic blood pressure 136 mm[Hg] Fior 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 Work Phone: [facility] 04-05-2023 14:00-0400 Body height 170.2 cm Garret Zupke PA Work Phone: [facility] 04-05-2023 14:00-0400 Body mass index (BMI) [Ratio] 33.27 kg/m2 Garret Zupke PA Work Phone: [facility] 04-05-2023 14:00-0400 Body temperature 96.1 [degF] Garret Zupke PA Work Phone: [facility] 04-05-2023 14:00-0400 Body weight 96.34 kg Garret Zupke PA Work Phone: [facility] 04-05-2023 14:00-0400 Diastolic blood pressure 84 mm[Hg] Garret Zupke PA Work Phone: [facility] 04-05-2023 14:00-0400 Heart rate 94 /min Garret Zupke PA Work Phone: [facility] 04-05-2023 14:00-0400 Respiratory rate 16 /min Garret Zupke PA Work Phone: [facility] 04-05-2023 14:00-0400 Systolic blood pressure 119 mm[Hg] Garret Zupke PA Work Phone: [facility] 12-04-2022 07:17-0400 Body weight 102.97 kg Fior 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 Work Phone: [facility] 12-04-2022 07:17-0400 Diastolic blood pressure 78 mm[Hg] Fior 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 Work Phone: [facility] 12-04-2022 07:17-0400 Heart rate 88 /min Fior 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 Work Phone: [facility] 12-04-2022 07:17-0400 Respiratory rate 16 /min Fior 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 Work Phone: [facility] 12-04-2022 07:17-0400 Systolic blood pressure 114 mm[Hg] Fior 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 Work Phone: [facility] 12-02-2022 13:05-0400 Body height 170.2 cm Garret Zupke PA Work Phone: [facility] 12-02-2022 13:05-0400 Body mass index (BMI) [Ratio] 35.77 kg/m2 Garret Zupke PA Work Phone: [facility] 12-02-2022 13:05-0400 Body temperature 96.01 [degF] Garret Zupke PA Work Phone: [facility] 12-02-2022 13:05-0400 Body weight 103.6 kg Garret Zupke PA Work Phone: [facility] 12-02-2022 13:05-0400 Diastolic blood pressure 78 mm[Hg] Garret Zupke PA Work Phone: [facility] 12-02-2022 13:05-0400 Heart rate 98 /min Garret Zupke PA Work Phone: [facility] 12-02-2022 13:05-0400 Respiratory rate 16 /min Garret Zupke PA Work Phone: [facility] 12-02-2022 13:05-0400 Systolic blood pressure 123 mm[Hg] Garret Zupke PA Work Phone: [facility] 10-08-2022 09:07-0500 Body height 170.2 cm Gavin Moctezuma MD Work Phone: [facility] Comment on above: [facility] 10-08-2022 09:07-0500 Body mass index (BMI) [Ratio] 38.97 kg/m2 Gavin oMctezuma MD Work Phone: [facility] 10-08-2022 09:07-0500 Body temperature 94.89 [degF] Gavin Moctezuma MD Work Phone: [facility] 10-08-2022 09:07-0500 Body weight 112.86 kg Gavin Moctezuma MD Work Phone: [facility] 10-08-2022 09:07-0500 Diastolic blood pressure 72 mm[Hg] Gavin Moctezuma MD Work Phone: [facility] 10-08-2022 09:07-0500 Heart rate 105 /min Gavin Moctezuma MD Work Phone: [facility] 10-08-2022 09:07-0500 Respiratory rate 18 /min Gavin Moctezuma MD Work Phone: [facility] 10-08-2022 09:07-0500 Systolic blood pressure 127 mm[Hg] Gavin Moctezuma MD Work Phone: [facility] 09-10-2022 11:09-0500 Body height 170.2 cm Garret Zupke PA Work Phone: [facility] Comment on above: [facility] 09-10-2022 11:09-0500 Body mass index (BMI) [Ratio] 41.35 kg/m2 Garret Zupke PA Work Phone: [facility] 09-10-2022 11:09-0500 Body temperature 95.31 [degF] Garret Zupke PA Work Phone: [facility] 09-10-2022 11:09-0500 Body weight 119.75 kg Garret Zupke PA Work Phone: [facility] 09-10-2022 11:09-0500 Diastolic blood pressure 77 mm[Hg] Garret Zupke PA Work Phone: [facility] 09-10-2022 11:09-0500 Heart rate 101 /min Garret Zupke PA Work Phone: [facility] 09-10-2022 11:09-0500 Respiratory rate 18 /min Garret Zupke PA Work Phone: [facility] 09-10-2022 11:09-0500 SaO2% (BldA) [Mass fraction] 99 % Garret Zupke PA Work Phone: [facility] 09-10-2022 11:09-0500 Systolic blood pressure 136 mm[Hg] Garret Zupke PA Work Phone: [facility] 08-28-2022 11:48-0500 Body weight 121.56 kg Fior 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 Work Phone: [facility] 08-28-2022 11:48-0500 Diastolic blood pressure 76 mm[Hg] Fior 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 Work Phone: [facility] 08-28-2022 11:48-0500 Heart rate 92 /min Fior 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 Work Phone: [facility] 08-28-2022 11:48-0500 Respiratory rate 16 /min Fior 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 Work Phone: [facility] 08-28-2022 11:48-0500 Systolic blood pressure 128 mm[Hg] Fior 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 Work Phone: [facility] 04-06-2022 16:34-0400 Body temperature 96.91 [degF] Alexander Quinteros Jr., MD Work Phone: [facility] 04-06-2022 16:34-0400 Body weight 116.12 kg Alexander Quinteros Jr., MD Work Phone: [facility] 04-06-2022 16:34-0400 Diastolic blood pressure 86 mm[Hg] Alexander Quinteros Jr., MD Work Phone: [facility] 04-06-2022 16:34-0400 Heart rate 94 /min Alexander Quinteros Jr., MD Work Phone: [facility] 04-06-2022 16:34-0400 Respiratory rate 18 /min Alexander Quinteros Jr., MD Work Phone: [facility] 04-06-2022 16:34-0400 SaO2% (BldA) [Mass fraction] 96 % Alexander Quinteros Jr., MD Work Phone: [facility] 04-06-2022 16:34-0400 Systolic blood pressure 118 mm[Hg] Alexander Quinteros Jr., MD Work Phone: [facility] 11-18-2021 14:55-0500 Diastolic blood pressure 83 mm[Hg] Gavin Moctezuma MD Work Phone: [facility] 11-18-2021 14:55-0500 Heart rate 105 /min Gavin Moctezuma MD Work Phone: [facility] 11-18-2021 14:55-0500 Respiratory rate 15 /min Gavin Moctezuma MD Work Phone: [facility] 11-18-2021 14:55-0500 SaO2% (BldA) [Mass fraction] 99 % Gavin Moctezuma MD Work Phone: [facility] 11-18-2021 14:55-0500 Systolic blood pressure 127 mm[Hg] Gavin Moctezuma MD Work Phone: [facility] 11-18-2021 13:57-0500 Body temperature 97 [degF] Gavin Moctezuma MD Work Phone: [facility] 11-18-2021 11:18-0500 Body mass index (BMI) [Ratio] 39 kg/m2 Gavin Moctezuma MD Work Phone: [facility] 11-18-2021 11:18-0500 Body weight 112.95 kg Gavin Moctezuma MD Work Phone: [facility] 11-18-2021 11:18-0500 Body height 170.2 cm Gavin Moctezuma MD Work Phone: [facility] 11-14-2021 14:09-0500 Body height 170.2 cm Gavin Moctezuma MD Work Phone: [facility] 11-14-2021 14:09-0500 Body mass index (BMI) [Ratio] 39.09 kg/m2 Gavin Moctezuma MD Work Phone: [facility] 11-14-2021 14:09-0500 Body temperature 95.2 [degF] Gavin Moctezuma MD Work Phone: [facility] 11-14-2021 14:09-0500 Body weight 113.22 kg Gavin Moctezuma MD Work Phone: [facility] 11-14-2021 14:09-0500 Diastolic blood pressure 97 mm[Hg] Gavin Moctezuma MD Work Phone: [facility] 11-14-2021 14:09-0500 Heart rate 118 /min Gavin Moctezuma MD Work Phone: [facility] 11-14-2021 14:09-0500 Respiratory rate 20 /min Gavin Moctezuma MD Work Phone: [facility] 11-14-2021 14:09-0500 SaO2% (BldA) [Mass fraction] 97 % Gavin Moctezuma MD Work Phone: [facility] 11-14-2021 14:09-0500 Systolic blood pressure 139 mm[Hg] Gavin Moctezuma MD Work Phone: [facility] 10-13-2019 09:35-0500 Body temperature 97.59 [degF] Rubin Washington MD Work Phone: [facility] Work Phone: 10-13-2019 09:35-0500 Diastolic blood pressure 58 mm[Hg] Rubin Washington MD Work Phone: [facility] Work Phone: 10-13-2019 09:35-0500 Heart rate 100 /min Rubin Washington MD Work Phone: [facility] Work Phone: 10-13-2019 09:35-0500 Respiratory rate 16 /min Rubin Washington MD Work Phone: [facility] Work Phone: 10-13-2019 09:35-0500 SaO2% (BldA) [Mass fraction] 95 % Rubin Washington MD Work Phone: [facility] Work Phone: 10-13-2019 09:35-0500 Systolic blood pressure 101 mm[Hg] Rubin Washington MD Work Phone: [facility] Work Phone: 10-13-2019 07:34-0500 Body height 170.2 cm Rubin Washington MD Work Phone: [facility] Work Phone: 10-13-2019 07:34-0500 Body mass index (BMI) [Ratio] 40.41 kg/m2 Rubin Washington MD Work Phone: [facility] Work Phone: 10-13-2019 07:34-0500 Body weight 117.03 kg Rubin Washington MD Work Phone: [facility] Work Phone: Encounters Encounter Date Encounter Type Care Provider Facility Start: 07-10-2025 Encounter for other preprocedural examination [facility] Start: 07-10-2025 [facility] Facility:[facility] Start: 07-03-2025 End: 07-03-2025 ambulatory [facility] Start: 06-25-2025 End: 06-25-2025 ambulatory [facility] Facility:[facility] Start: 06-25-2025 Encounter for other preprocedural examination [facility] Start: 06-08-2025 End: 06-08-2025 ambulatory [facility] Facility:[facility] Start: 06-01-2025 End: 06-01-2025 ambulatory [facility] Facility:[facility] Start: 05-11-2025 End: 05-11-2025 Office outpatient visit 25 minutes Fior Alvarez APRN.CNP Work Phone: [facility] [place] Comment on above: Essential hypertensi on (Primary Dx); Extremity edema; Hypokalemia; Encounter for immunization Start: 05-11-2025 End: 05-11-2025 [facility] Facility:[facility] Start: 05-07-2025 End: 05-07-2025 Patient encounter procedure Ash Chowdhury MD Work Phone: OB/Gynecology Comment on above: Post-operative state (Primary Dx); Vaginal atrophy Start: 05-07-2025 End: 05-07-2025 [facility] Facility:[facility] Start: 05-02-2025 End: 05-02-2025 Office outpatient visit 25 minutes Fior Alvarez APRN.CNP Work Phone: [facility] [place] Comment on above: Essential hypertensi on (Primary Dx); Hypokalemia; Extremity edema Start: 05-02-2025 End: 05-02-2025 [facility] Facility:[facility] Start: 04-30-2025 End: 04-30-2025 Follow-up encounter Fior Alvarez APRN.CNP Work Phone: [facility] [place] Start: 04-27-2025 End: 04-27-2025 [facility] Facility:[facility] Start: 04-20-2025 End: 04-24-2025 Refill Luz Meeks PA-C Work Phone: Neurology Comment on above: Refill Request Start: 04-18-2025 End: 04-18-2025 [facility] Facility:[facility] Start: 04-13-2025 End: 04-13-2025 ambulatory Saundra Randle Facility:[facility] Start: 04-12-2025 End: 04-13-2025 Follow-up encounter Angelique Bradford PA-C Work Phone: [facility] [place] Comment on above: Results Start: 04-10-2025 End: 04-10-2025 Office outpatient new 45 minutes Angelique Bradford PA-C Work Phone: [facility] [place] Comment on above: Dysuria (Primary Dx) ; Uterine leiomyoma, unspecified location Start: 04-10-2025 End: 04-10-2025 [facility] Facility:[facility] Start: 04-09-2025 End: 04-09-2025 Patient encounter procedure Ash Chowdhury MD Work Phone: OB/Gynecology Comment on above: Fluid in endometrial cavity (Primary Dx); Visit for pre-operative examination Start: 04-09-2025 End: 04-09-2025 Preprocedural examination done Ash Chowdhury MD Work Phone: [facility] Start: 04-09-2025 End: 04-09-2025 [facility] Facility:[facility] Start: 04-05-2025 End: 04-05-2025 ambulatory [facility] Facility:[facility] Start: 04-05-2025 End: 04-06-2025 Follow-up encounter Fior Alvarez APRN.ELECTRONIC CALIBRATION TECHNICIAN Work Phone: [facility] [place] Start: 04-03-2025 End: 04-27-2025 ambulatory Fior Alvarez APRN.ELECTRONIC CALIBRATION TECHNICIAN Work Phone: [facility] [place] Comment on above: BMP results - low po tassium Start: 03-30-2025 End: 03-30-2025 Office outpatient visit 25 minutes Fior Alvarez APRN.CNP Work Phone: [facility] [place] Comment on above: Preop exam for inter nal medicine (Primary Dx); Essential hypertension; Acquired hypothyroidism; Obstructive sleep apnea syndrome; Migraine without aura and without status migrainosus, not intractable; Type 2 diabetes mellitus with unspecified complications (HCC) Start: 03-30-2025 End: 03-30-2025 Patient encounter status Fior Alvarez APRN.ELECTRONIC CALIBRATION TECHNICIAN Work Phone: [facility] Work Phone: Start: 03-30-2025 End: 03-30-2025 [facility] Facility:[facility] Start: 03-30-2025 Encounter for other preprocedural examination FIOR ALVAREZ [facility] Start: 03-28-2025 End: 03-28-2025 Patient encounter procedure Luz Meeks PA-C Work Phone: Neurology Comment on above: Paresthesia of both feet (Primary Dx); Neuropathy Start: 03-28-2025 End: 03-28-2025 [facility] Facility:[facility] Start: 03-28-2025 End: 04-02-2025 Telephone encounter Ash Chowdhury MD Work Phone: OB/Gynecology Comment on above: Patient Question Start: 03-22-2025 End: 03-22-2025 [facility] Facility:[facility] Start: 03-22-2025 End: 03-22-2025 Manual pelvic examination Ash Chowdhury MD Work Phone: OB/Gynecology Comment on above: Fluid in endometrial cavity (Primary Dx); Thickened endometrium; Pelvic pain in female; Family history of uterine cancer; Vaginal atrophy Start: 03-22-2025 End: 03-22-2025 Telemedicine consultation with patient Ash Chowdhury MD Work Phone: OB/Gynecology Start: 03-12-2025 End: 03-12-2025 Office outpatient visit 25 minutes Ana Bolaños MD Work Phone: [facility] [place] Comment on above: Type 2 diabetes jocelyn itus with diabetic microalbuminuria, without long-term current use of insulin (HCC) (Primary Dx); Acquired hypothyroidism; Class 2 obesity due to excess calories without serious comorbidity with body mass index (BMI) of 39.0 to 39.9 in adult; Obstructive sleep apnea syndrome; Hypokalemia Start: 03-12-2025 End: 03-12-2025 [facility] Facility:[facility] Start: 03-09-2025 End: 05-09-2025 Follow-up encounter Jacquie Clarke APRN.ELECTRONIC CALIBRATION TECHNICIAN Work Phone: [facility] [place] Start: 03-08-2025 End: 03-08-2025 [facility] Facility:[facility] Start: 03-07-2025 End: 03-07-2025 Office outpatient visit 25 minutes Jacquie Clarke APRN.BRITANY Work Phone: [facility] [place] Comment on above: Lower abdominal pain (Primary Dx); Hematuria, unspecified type Start: 03-07-2025 End: 03-07-2025 [facility] Facility:[facility] Start: 03-05-2025 End: 05-05-2025 Follow-up encounter Fior Alvarez APRN.CNP Work Phone: [facility] [place] Start: 03-02-2025 End: 03-02-2025 ambulatory [facility] Facility[facility] Start: 03-02-2025 End: 03-02-2025 ambulatory [facility] Facility:[facility] Start: 02-27-2025 End: 03-02-2025 ambulatory Ana Bolaños MD Work Phone: [facility] Start: 02-09-2025 End: 04-11-2025 Follow-up encounter Richie Newman APRN.CNP Work Phone: OB/Gynecology Start: 02-09-2025 End: 02-09-2025 Patient encounter procedure Emg 1 Neur [facility] (Max Weight: 850) Neurology Start: 02-09-2025 End: 02-09-2025 ambulatory [facility] Neurology Comment on above: EMG Start: 02-08-2025 End: 02-08-2025 [facility] Facility:[facility] Start: 02-08-2025 End: 02-08-2025 Patient encounter procedure Richie Newman APRN.CNP Work Phone: OB/Gynecology Comment on above: Pelvic pain in femal e (Primary Dx); Vaginal discharge; Thickened endometrium; Screening for HPV (human papillomavirus); Screening for cervical cancer Refill Request Start: 02-07-2025 End: 04-09-2025 Follow-up encounter Fior Alvarez APRN.CNP Work Phone: [facility] [place] Start: 02-06-2025 ambulatory [facility] Facility:[facility] Start: 02-06-2025 End: 02-06-2025 Subsequent hospital visit by physician [facility] Work Phone: Radiology Comment on above: Uterine cyst [N85.8] Start: 01-29-2025 End: 02-09-2025 ambulatory Fior Alvarez APRN.CNP Work Phone: [facility] [place] Start: 01-29-2025 End: 02-09-2025 Patient encounter procedure Fior Alvarez PENCIL MAKER.ELECTRONIC CALIBRATION TECHNICIAN Work Phone: [facility] [place] Comment on above: Appointment - January Start: 01-26-2025 End: 01-27-2025 Follow-up encounter Fior Alvarez PENCIL MAKER.ELECTRONIC CALIBRATION TECHNICIAN Work Phone: [facility] [place] Comment on above: Results - Ct Start: 01-26-[address] [facility] Facility:[facility] Start: 01-26-2025 End: 01-26-2025 Subsequent hospital visit by physician [facility] Comment on above: Right lower quadrant pain [R10.31] Right lower quadrant abdominal pain [R10.31] Start: 01-25-2025 End: 03-27-2025 Follow-up encounter Fior Antonio STANLEY.ELECTRONIC CALIBRATION TECHNICIAN Work Phone: [facility] [place] Start: 01-25-2025 End: 01-25-2025 ambulatory [facility] Facility:[facility] Start: 01-25-2025 End: 01-25-2025 Office outpatient visit 25 minutes Fior Alvarez APRN.ELECTRONIC CALIBRATION TECHNICIAN Work Phone: [facility] [place] Comment on above: Lower abdominal pain (Primary Dx); Right lower quadrant abdominal pain; Urinary tract infection without hematuria, site unspecified Start: 01-25-2025 End: 01-25-2025 [facility] Facility:[facility] Start: 01-24-2025 End: 03-26-2025 Follow-up encounter Lucille Brandt PA-C Work Phone: Neurology Start: 01-24-2025 End: 01-29-2025 Telephone encounter Ana Bolaños MD Work Phone: [facility] [place] Comment on above: Insurance Authorizat ion Start: 01-23-2025 End: 01-23-2025 ambulatory Ana Bolaños MD Work Phone: [facility] [place] Comment on above: Mounjaro - is it thien e to increase dose? Start: 01-22-2025 End: 01-22-2025 Subsequent hospital visit by physician Xr Count Includes [facility] [place] [facility] Work Phone: Radiology Comment on above: Paresthesia of both feet [R20.2] Start: 01-22-2025 End: 01-22-2025 ambulatory [facility] Facility:[facility] Start: 01-22-2025 End: 01-22-2025 Telemedicine consultation with patient Lucille Day Rikki KOLB Work Phone: Neurology Start: 01-22-2025 End: 01-22-2025 ambulatory Lucille Day Rikki KOLB Work Phone: Neurology Comment on above: Paresthesia of both feet (Primary Dx) Start: 12-29-2024 End: 12-29-2024 ambulatory [facility] Start: 12-15-2024 End: 12-15-2024 ambulatory [facility] Start: 12-13-2024 End: 12-13-2024 Refill Fior Alvarez APRN.CNP Work Phone: [facility] [place] Comment on above: Refill Request Start: 12-07-2024 End: 12-07-2024 ambulatory [facility] Start: 12-05-2024 End: 12-05-2024 ambulatory [facility] Start: 12-05-2024 End: 12-05-2024 ambulatory [facility] Facility:[facility] Start: 12-01-2024 End: 12-01-2024 ambulatory [facility] Start: 11-24-2024 End: 11-24-2024 ambulatory [facility] Start: 11-17-2024 End: 11-17-2024 ambulatory [facility] Start: 11-16-2024 ambulatory [facility] Start: 11-15-2024 End: 11-15-2024 ambulatory [facility] Facility:[facility] Start: 11-10-2024 End: 11-10-2024 ambulatory [facility] Facility:[facility] Start: 11-10-2024 End: 11-10-2024 Office outpatient visit 25 minutes Ana Bolaños MD Work Phone: [facility] [place] Comment on above: Type 2 diabetes jocelyn itus with unspecified complications (HCC) (Primary Dx); Class 2 obesity due to excess calories without serious comorbidity with body mass index (BMI) of 39.0 to 39.9 in adult; Obstructive sleep apnea syndrome; Hyperlipidemia, unspecified hyperlipidemia type; Essential hypertension Start: 11-02-2024 End: 11-02-2024 Refill Ana Bolaños MD Work Phone: [facility] [place] Comment on above: Refill Request Start: 10-25-2024 End: 12-25-2024 Follow-up encounter Ana Bolaños MD Work Phone: Geriatrics Start: 10-20-2024 End: 10-20-2024 ambulatory [facility] Facility:[facility] Start: 10-20-2024 End: 10-20-2024 Subsequent hospital visit by physician Screen Mammo Count Includes [facility] Comment on above: Encounter for screen ing mammogram for breast cancer [Z12.31] Start: 10-12-2024 End: 10-12-2024 ambulatory [facility] Facility:[facility] Start: 10-12-2024 End: 10-12-2024 ambulatory [facility] Facility:[facility] Start: 10-02-2024 End: 10-03-2024 Refill Fior Alvarez APRN.CNP Work Phone: Internal Medicine [place] Comment on above: Refill Request Start: 09-05-2024 End: 09-05-2024 ambulatory [facility] Facility:[facility] Start: 09-05-2024 End: 09-05-2024 Patient encounter procedure Katarina Guillory APRN.CNP Work Phone: OB/Gynecology Comment on above: Encounter for gyneco logical examination (general) (routine) without abnormal findings (Primary Dx); Encounter for screening mammogram for breast cancer Start: 09-05-2024 End: 09-05-2024 Patient encounter status Katarina Guillory APRN.CNP Work Phone: [facility] Start: 08-23-2024 End: 08-28-2024 Telephone encounter Ana Bolaños MD Work Phone: Internal Medicine [place] Comment on above: Medication Update Start: 08-19-2024 End: 08-19-2024 Telephone encounter Ana Bolaños MD Work Phone: Internal Medicine [place] Comment on above: Insurance Authorizat ion Start: 08-14-2024 End: 08-15-2024 Refill Ana Bolaños MD Work Phone: Internal Medicine [place] Comment on above: Med Change Request Start: 08-11-2024 End: 08-11-2024 ambulatory [facility] Facility:[facility] Start: 08-11-2024 End: 08-11-2024 Office outpatient visit 25 minutes Ana Bolaños MD Work Phone: Internal Medicine [place] Comment on above: Acquired hypothyroid ism (Primary Dx); Class 2 obesity due to excess calories without serious comorbidity with body mass index (BMI) of 39.0 to 39.9 in adult; Obstructive sleep apnea syndrome; Hyperlipidemia, unspecified hyperlipidemia type; Essential hypertension; Hypokalemia Start: 08-09-2024 End: 08-09-2024 ambulatory [facility] Facility:[facility] Start: 07-18-2024 End: 07-18-2024 Patient encounter procedure Luz Meeks PA-C Work Phone: Neurology Comment on above: Neuropathy (Primary Dx) Start: 07-18-2024 End: 07-18-2024 [facility] Facility:[facility] Start: 07-16-2024 End: 07-17-2024 ambulatory Ana Bolaños MD Work Phone: Internal Medicine [place] Comment on above: Potassium Start: 06-26-2024 End: 06-26-2024 ambulatory Ana Bolaños MD Work Phone: Internal Medicine [place] Comment on above: Zepound Start: 06-26-2024 End: 06-26-2024 Telephone encounter Ana Bolaños MD Work Phone: Internal Medicine [place] Start: 06-02-2024 End: 06-02-2024 ambulatory Luz Meeks PA-C Work Phone: Neurology Comment on above: Feet Neuropathy - br eak through pain Start: 05-09-2024 End: 05-09-2024 Patient encounter procedure Ana Bolaños MD Work Phone: [facility] Start: 05-09-2024 End: 05-09-2024 Periodic preventive med est patient 40-64yrs Ana Bolaños MD Work Phone: Internal Medicine [place] Comment on above: Annual physical exam (Primary Dx); Screening for depression; Encounter for screening examination for other mental health and behavioral disorders; Encounter for immunization; Encounter for screening mammogram for breast cancer; Essential hypertension; Mixed hyperlipidemia; Hypoparathyroidism, unspecified hypoparathyroidism type (HCC); Sjogren syndrome with dental involvement (HCC) Start: 04-13-2024 Refill Fior Alvarez APRN .ELECTRONIC CALIBRATION TECHNICIAN Work Phone: Internal Medicine [place] Comment on above: Refill Request Start: 04-12-2024 ambulatory Jacquie aquino PENCIL MAKER.ELECTRONIC CALIBRATION TECHNICIAN Work Phone: Internal Medicine [place] Comment on above: Zepbound next dose l evel Start: 04-05-2024 Telephone encounter Ana cuevas MD Work Phone: Internal Medicine [place] Comment on above: Insurance Authorizat ion Start: 04-03-2024 End: 04-03-2024 ambulatory Jacquie Clarke APRN.ELECTRONIC CALIBRATION TECHNICIAN Work Phone: Internal Medicine [place] Comment on above: Class 2 obesity due to excess calories without serious comorbidity with body mass index (BMI) of 39.0 to 39.9 in adult (Primary Dx) Start: 04-03-2024 End: 04-03-2024 Telemedicine consultation with patient Jacquie Barb Fermin STANLEY.ELECTRONIC CALIBRATION TECHNICIAN Work Phone: Internal Medicine [place] Start: 03-28-2024 End: 03-28-2024 Patient encounter procedure Luz Meeks PA-C Work Phone: Neurology Comment on above: Neuropathy (Primary Dx) Start: 03-03-2024 End: 03-03-2024 Patient encounter procedure Jacquie Clarke APRN.ELECTRONIC CALIBRATION TECHNICIAN Work Phone: Internal Medicine [place] Comment on above: Class 2 obesity due to excess calories without serious comorbidity with body mass index (BMI) of 38.0 to 38.9 in adult (Primary Dx) Start: 02-04-2024 End: 02-04-2024 Patient encounter procedure Jacquie Clarke PENCIL MAKER.ELECTRONIC CALIBRATION TECHNICIAN Work Phone: Internal Medicine [place] Comment on above: Class 2 obesity due to excess calories without serious comorbidity with body mass index (BMI) of 39.0 to 39.9 in adult (Primary Dx) Start: 01-29-2024 Refill Fior Alvarez PENCIL MAKER .ELECTRONIC CALIBRATION TECHNICIAN Work Phone: Internal Medicine [place] Comment on above: Med Change Request Start: 01-18-2024 ambulatory Ana Perry Work Phone: Internal [facility] Start: 01-13-2024 ambulatory Fior Alvarez PENCIL MAKER .ELECTRONIC CALIBRATION TECHNICIAN Work Phone: Internal Medicine [place] Comment on above: Neuropathy Start: 01-07-2024 End: 01-07-2024 Patient encounter procedure Fior Alvarez PENCIL MAKER.ELECTRONIC CALIBRATION TECHNICIAN Work Phone: Internal Medicine [place] Comment on above: Class 2 severe obesi ty with serious comorbidity and body mass index (BMI) of 39.0 to 39.9 in adult, unspecified obesity type (HCC) (Primary Dx); Obstructive sleep apnea syndrome; Insomnia, unspecified type; Acquired hypothyroidism; Bipolar I disorder, most recent episode depressed (HCC); Essential hypertension Start: 12-21-2023 ambulatory Ana Perry Work Phone: Internal [facility] Start: 11-17-2023 Telephone encounter Fior Alvarez APRN.ELECTRONIC CALIBRATION TECHNICIAN Work Phone: Internal Medicine [place] Comment on above: clarify directions o n rx Medication Problem Start: 11-05-2023 Refill Fior Alvarez PENCIL MAKER .ELECTRONIC CALIBRATION TECHNICIAN Work Phone: Internal Medicine [place] Comment on above: Refill Request Start: 09-02-2023 End: 09-02-2023 ambulatory GAVIN MOCTEZUMA [facility] Start: 09-02-2023 End: 09-02-2023 Office outpatient visit 15 minutes Gavin Moctezuma MD Work Phone: Weight [facility] Comment on above: REMIGIO on CPAP; Primary hypertension; Deficiency of multiple nutrient elements; Hyperlipidemia, unspecified hyperlipidemia type; Class 2 severe obesity due to excess calories with serious comorbidity and body mass index (BMI) of 36.0 to 36.9 in adult Start: 08-19-2023 End: 08-19-2023 Patient encounter procedure Fior Alvarez APRN.CNP Work Phone: Internal Medicine [place] Comment on above: Burning sensation of feet (Primary Dx) Start: 08-03-2023 ambulatory Ana Ganta M D Work Phone: Internal Medicine [facility] [place] Start: 08-02-2023 ambulatory Fior Alvarez APRN, .CNP Work Phone: Internal Medicine [place] Comment on above: Eletriptran H[facility] Start: 07-21-2023 ambulatory Ana Bolaños M D Work Phone: Internal [facility] Start: 05-28-2023 Refill Garret POLLOCK Work Phone: Weight [facility] [place] Start: 04-05-2023 End: 04-05-2023 ambulatory [employer] Start: 04-05-2023 End: 04-05-2023 Office outpatient visit 25 minutes Garret POLLOCK Work Phone: [facility] Comment on above: Primary hypertension (Primary Dx); REMIGIO on CPAP; Deficiency of multiple nutrient elements; Hyperlipidemia, unspecified hyperlipidemia type; Class 1 obesity due to excess calories with serious comorbidity and body mass index (BMI) of 33.0 to 33.9 in adult; High vitamin D level Start: 01-12-2023 End: 01-12-2023 ambulatory [facility] Work Phone: Start: 01-12-2023 End: 01-12-2023 Patient encounter procedure [facility] Start: 01-06-2023 End: 01-06-2023 Patient encounter procedure [facility] Start: 12-22-2022 Telephone encounter Erika Shah APRN.ELECTRONIC CALIBRATION TECHNICIAN Work Phone: Neurology Comment on above: PAP Rx Faxed (DME: [facility] ) Start: 12-21-2022 End: 12-21-2022 ambulatory Erika Shah APRN.ELECTRONIC CALIBRATION TECHNICIAN Work Phone: Neurology Comment on above: Obstructive sleep ap lakeshia syndrome (Primary Dx); Insomnia, unspecified type; Difficulty using biphasic positive airway pressure (BiPAP) machine Start: 12-21-2022 End: 12-21-2022 Telemedicine consultation with patient Erika Shah APRN.ELECTRONIC CALIBRATION TECHNICIAN Work Phone: [facility] Start: 12-04-2022 End: 12-04-2022 Patient encounter procedure Fior Antonio MCELROYN.ELECTRONIC CALIBRATION TECHNICIAN Work Phone: Internal Medicine [place] Comment on above: Essential hypertensi on (Primary Dx); Acquired hypothyroidism; Migraine without aura and without status migrainosus, not intractable; Elevated fasting glucose; Bipolar I disorder, most recent episode depressed (HCC); Mixed hyperlipidemia Start: 12-02-2022 End: 12-02-2022 [facility] Start: 12-02-2022 End: 12-02-2022 Office outpatient visit 25 minutes [facility] Work Phone: [facility] [place] Comment on above: Primary hypertension (Primary Dx); REMIGIO on CPAP; Deficiency of multiple nutrient elements; Class 2 severe obesity due to excess calories with serious comorbidity and body mass index (BMI) of 35.0 to 35.9 in adult ([facility]); High cholesterol Start: 11-13-2022 End: 11-13-2022 [facility] Work Phone: Start: 11-13-2022 End: 11-13-2022 Patient encounter procedure [facility] Start: 10-15-2022 Telephone encounter Ana cuevas MD Work Phone: Internal Medicine [place] Comment on above: Medication Problem Start: 10-10-2022 End: 10-10-2022 [facility] Work Phone: Start: 10-10-2022 End: 10-10-2022 Patient encounter procedure [facility] Start: 10-08-2022 End: 10-08-2022 ambulatory GAVIN MOCTEZUMA [facility] Start: 10-08-2022 End: 10-08-2022 Postop follow up visit related to original px Gavin Moctezuma MD Work Phone: Weight [facility] Comment on above: Encounter for postop erative care (Primary Dx); Primary hypertension; Hyperlipidemia, unspecified hyperlipidemia type; Hypothyroidism, unspecified type; REMIGIO (obstructive sleep apnea); Class 2 obesity due to excess calories with body mass index (BMI) of 38.0 to 38.9 in adult, unspecified whether serious comorbidity present; Deficiency of multiple nutrient elements Start: 10-01-2022 Telephone encounter Marilou leone RD Work Phone: Weight [facility] Comment on above: Abnormal Lab (Low po tassium; Elevated Vitamin B12) Start: 09-30-2022 End: 09-30-2022 [facility] Work Phone: Start: 09-30-2022 End: 09-30-2022 Patient encounter procedure [facility] Start: 09-29-2022 Telephone encounter Ana cuevas MD Work Phone: Internal Medicine [place] Comment on above: Patient Update Start: 09-29-2022 End: 09-29-2022 [facility] Work Phone: Start: 09-29-2022 End: 09-29-2022 Patient encounter procedure [facility] Start: 09-21-2022 End: 09-21-2022 ambulatory Alexander Quinteros MD Work Phone: Neurology Comment on above: Obstructive sleep ap lakeshia (adult) (pediatric) (Primary Dx); Insomnia, unspecified type; Class 3 severe obesity with body mass index (BMI) of 40.0 to 44.9 in adult, unspecified obesity type, unspecified whether serious comorbidity present ([facility]) Start: 09-21-2022 End: 09-21-2022 Telemedicine consultation with patient Alexander Quinteros Jr., MD Work Phone: [facility] Start: 09-10-2022 End: 09-10-2022 ambulatory GARRET ZUPKE [facility] Start: 09-10-2022 End: 09-10-2022 Postop follow up visit related to original px Garret Funezgiorgibushra PHILL Work Phone: [facility] [place] Comment on above: Encounter for postop erative care (Primary Dx); GERD without esophagitis; Deficiency of multiple nutrient elements; REMGIIO (obstructive sleep apnea); Hyperlipidemia, unspecified hyperlipidemia type; Primary hypertension; Morbid obesity with BMI of 40.0-44.9, adult (HCC) Start: 08-28-2022 End: 08-28-2022 Patient encounter procedure Fior Alvarez APRN.CNP Work Phone: Internal Medicine [place] Comment on above: Essential hypertensi on (Primary Dx); Prediabetes; Mixed hyperlipidemia; Acquired hypothyroidism; Bipolar I disorder, most recent episode depressed (HCC) Start: 08-13-2022 ambulatory Ana Perry Work Phone: Internal Medicine [facility] Comment on above: Encounter for other preprocedural examination (Primary Dx) Start: 08-13-2022 Patient encounter status Manju POLLOCK Work Phone: [facility] Start: 08-11-2022 ambulatory Ana Perry Work Phone: Internal [facility] Start: 06-26-2022 End: 06-26-2022 ambulatory [facility] Work Phone: Start: 06-26-2022 End: 06-26-2022 Patient encounter procedure [facility] Start: 04-09-2022 Telephone encounter Alexander Quinteros MD Work Phone: Neurology Comment on above: Orders Start: 04-06-2022 End: 04-06-2022 Patient encounter procedure Alexander Quinteros MD Work Phone: Neurology Comment on above: Obstructive sleep ap lakeshia (adult) (pediatric) (Primary Dx); Migraine without status migrainosus, not intractable, unspecified migraine type; Insomnia, unspecified type; Class 3 severe obesity with body mass index (BMI) of 40.0 to 44.9 in adult, unspecified obesity type, unspecified whether serious comorbidity present ([facility]) Start: 04-04-2022 End: 04-04-2022 [facility] Start: 03-20-2022 End: 03-20-2022 Subsequent hospital visit by physician Shalonda Bar MD Work Phone: [facility] [place] [facility] Start: 03-19-2022 End: 03-19-2022 [facility] Start: 03-11-2022 Telephone encounter Alexander Quinteros MD Work Phone: Neurology Comment on above: DME company Start: 02-24-2022 ambulatory Ana Perry Work Phone: Internal Medicine [facility] Start: 02-20-2022 End: 02-20-2022 Subsequent hospital visit by physician Shalonda Bar MD Work Phone: [facility] Start: 02-20-2022 End: 02-20-2022 [facility] Start: 02-17-2022 Telephone encounter Alexander Quinteros MD Work Phone: Neurology Comment on above: Orders; CPAP Supplie s Start: 02-06-2022 ambulatory Alexander walker Jr., MD Work Phone: [facility] [place] Start: 02-06-2022 Follow-up encounter Alexander Quinteros MD Work Phone: Neurology Comment on above: Visit Follow Up Ques tion Start: 02-04-2022 Telephone encounter Alexander Quinteros MD Work Phone: Neurology Comment on above: [employer] (Faxed paperwork) Start: 01-26-2022 Telephone encounter Alexander Quinteros MD Work Phone: Neurology Comment on above: Orders Start: 01-23-2022 Telephone encounter Alexander Quinteros MD Work Phone: Neurology Comment on above: PSG results Start: 01-23-2022 End: 01-23-2022 Subsequent hospital visit by physician [facility] Start: 01-14-2022 End: 01-14-2022 [facility] Start: 01-09-2022 Refill Ana Perry Work Phone: Internal Medicine [place] Comment on above: Refill Request Start: 12-26-2021 Telephone encounter Alexander Quinteros MD Work Phone: Family Medicine [place] Comment on above: Insurance Authorizat ion (sleep study) Start: 12-26-2021 End: 12-26-2021 Subsequent hospital visit by physician Shalonda Bar MD Work Phone: [facility] Start: 12-17-2021 Chart abstracting Alexander sharma MD Work Phone: Neurology Start: 12-15-2021 ambulatory Alexander walker MD Work Phone: Neurology Comment on above: Test Result Question Start: 12-12-2021 End: 12-12-2021 Patient encounter procedure [facility] Start: 12-04-2021 End: 12-04-2021 [facility] Start: 11-18-2021 End: 11-18-2021 Subsequent hospital visit by physician Gavin Moctezuma MD Work Phone: [facility] Comment on above: Postoperative abdomi nal pain (Primary Dx); History of adjustable gastric banding; Oropharyngeal dysphagia; Abnormal upper gastrointestinal barium series; Class 2 severe obesity due to excess calories with serious comorbidity and body mass index (BMI) of 39.0 to 39.9 in adult (HCC); Gastric polyp Start: 11-14-2021 End: 11-14-2021 Subsequent hospital visit by physician Gavin Moctezuma MD Work Phone: [facility] Comment on above: Deficiency of multip le nutrient elements; Obstructive sleep apnea; Essential hypertension; Hyperlipidemia, unspecified hyperlipidemia type; Class 3 severe obesity due to excess calories with serious comorbidity and body mass index (BMI) of 40.0 to 44.9 in adult (HCC); Back pain, unspecified back location, unspecified back pain laterality, unspecified chronicity; Zinc deficiency; Vitamin B deficiency; Vitamin D deficiency Start: 11-14-2021 End: 11-14-2021 Subsequent hospital visit by physician Shalonda Bar MD Work Phone: [facility] [place] [facility] Start: 11-05-2021 Telephone encounter Ana cuevas MD Work Phone: [facility] [place] Comment on above: Patient Update Start: 11-01-2021 Patient encounter procedure [facility] Start: 10-09-2021 End: 10-09-2021 Subsequent hospital visit by physician [facility] Start: 09-15-2021 End: 09-15-2021 Subsequent hospital visit by physician Garret POLLOCK [facility] Start: 08-23-2021 Patient encounter procedure [facility] Start: 10-13-2019 End: 10-13-2019 Subsequent hospital visit by physician Rubin [place] MD Work Phone: [facility] Comment on above: Post-op pain (Primar y Dx); Subcutaneous mass of right thumb Procedures Date Procedure Procedure Detail Performing Clinician Start: 04-10-2025 Urnls dip stick/tabl et rgnt auto w/o microscopy Angelique GLEZC Work Phone: Start: 03-07-2025 Urnls dip stick/tabl et rgnt auto w/o microscopy Jacquie Clarke PENCIL MAKER.ELECTRONIC CALIBRATION TECHNICIAN Work Phone: Start: 02-09-2025 Nerve conduction memo dies 5-6 studies Lucille Brandt PASimonC Work Phone: Start: 02-06-2025 Us pelvic nonobstetr ic image dcmtn limited/f/u Fior Alvarez PENCIL MAKER.ELECTRONIC CALIBRATION TECHNICIAN Work Phone: Start: 01-26-2025 Ct abdomen & pelvis w/contrast material Fior Alvarez PENCIL MAKER.ELECTRONIC CALIBRATION TECHNICIAN Work Phone: Start: 01-25-2025 Urnls dip stick/tabl et rgnt auto w/o microscopy Fior 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 Work Phone: Start: 05-09-2024 Adult depression scr eening assessment Ana Bolaños MD Work Phone: Start: 04-27-2024 Lipid 1996 panel - S dontae or Plasma Ana Bolaños MD Work Phone: Start: 01-19-2024 Lipid 1996 panel - S dontae or Plasma Fior 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 Work Phone: Start: 03-19-2023 Lipid 1996 panel - S dontae or Plasma Ana Bolaños MD Work Phone: Start: 12-04-2022 Hemoglobin A1c/Hemoglobin.total in Blood Fior 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 Work Phone: Start: 09-30-2022 Dual energy X-ray absorptiometry Start: 09-30-2022 End: 09-30-2022 Screening mammography Start: 08-17-2022 Thyrotropin [Units/v olume] in Serum or Plasma Marilou Clifton RD Work Phone: Start: 11-18-2021 OPERATIVE REPORT Physic delaney Generic Start: 11-15-2021 Adult depression scr eening assessment Alexander Quinteros Jr., MD Work Phone: Start: 11-14-2021 Comprehensive metabo lic panel Garret Funezupke PA Work Phone: Start: 11-14-2021 Lipid panel Garret Raoe PA Work Phone: Start: 11-14-2021 Ecg routine ecg w/le ast 12 lds w/i&r Ramos Hayden PENCIL MAKER - ELECTRONIC CALIBRATION TECHNICIAN Work Phone: Start: 11-14-2021 Lipid 1996 panel - S dontae or Plasma Marilou Clifton RD Work Phone: Start: 08-23-2021 Screening mammography Start: 04-17-2021 Colonoscopy Alexander sharma Jr., MD Work Phone: Start: 08-02-2020 Mammography Alexander sharma Jr., MD Work Phone: Start: 10-13-2019 Urine test visual color cmprsn chris Walters MD Work Phone: Plan of Treatment Date Care Activity Detail Author Start: 04-17-2031 Colonoscopy COLONOSCOPY [facility] Start: 04-17-2031 COLORECTAL CANCER SCREENING COLORECTAL CANCER SCREENING [facility] Start: 04-17-2031 Screening for malign ant neoplasm of colon [facility] Start: 04-27-2029 Lipid panel Lipid Screening [facility] Start: 01-18-2029 Lipid panel Lipid Screening [facility] Start: 03-19-2028 Lipid 1996 panel - S dontae or Plasma Lipid Screening [facility] Start: 03-19-2028 Lipid panel Lipid Screening [facility] Start: 2027 RSV Immunization age d 60 or older (1 - 1-dose 60+ series) RSV Immunization aged 60 or older (1 - 1-dose 60+ series) [facility] Start: 08-17-2027 LIPID SCREEN LIPID SCREEN [facility] Start: 08-11-2027 Diabetes Screening Diabetes Screenin g [facility] Start: 07-03-2027 DTaP/Tdap/Td vaccine (3 - Td or Tdap) DTaP/Tdap/Td vaccine (3 - Td or Tdap) [facility] Start: 07-03-2027 DTaP/Tdap/Td vaccine (3 - Td) DTaP/Tdap/Td vaccine (3 - Td) [facility] Work Phone: Start: 07-03-2027 DTaP/Tdap/Td Vaccine s (3 - Td or Tdap) DTaP/Tdap/Td Vaccines (3 - Td or Tdap) [facility] Start: 07-03-2027 Urine microalbumin profile DTaP,Tdap,Td Vaccine (3 - Td or Tdap) [facility] Start: 06-16-2027 DTaP/Tdap/Td Vaccine s (2 - Tdap) DTaP/Tdap/Td Vaccines (2 - Tdap) [facility] Start: 06-16-2027 Urine microalbumin profile [facility] Start: 04-27-2027 Diabetes Screening Diabetes Screenin g [facility] Start: 01-18-2027 Diabetes Screening Diabetes Screenin g [facility] Start: 11-14-2026 Lipid panel Lipid Panel [facility] Start: 09-04-2026 LIPID SCREEN LIPID SCREEN [facility] Start: 05-11-2026 Annual PCP Team Quality Control Industrial Engineer lee Disease Visit Annual PCP Team Chronic Disease Visit [facility] Start: 05-02-2026 Annual PCP Team Quality Control Industrial Engineer lee Disease Visit Annual PCP Team Chronic Disease Visit [facility] Start: 04-10-2026 Annual PCP Team Quality Control Industrial Engineer lee Disease Visit Annual PCP Team Chronic Disease Visit [facility] Start: 03-30-2026 Annual PCP Team Quality Control Industrial Engineer lee Disease Visit Annual PCP Team Chronic Disease Visit [facility] Start: 03-30-2026 Covid-19 Vaccine (8 - Pfizer risk ) Covid-19 Vaccine (8 - Pfizer risk ) [facility] Comment on above: Postponed from 11/25 (Declined at this time) Start: 03-30-2026 Hepatitis B Vaccine (1 of 3 - 19+ 3-dose series) Hepatitis B Vaccine (1 of 3 - 19+ 3-dose series) [facility] Comment on above: Postponed from 12/05 (Declined at this time) Start: 03-19-2026 Diabetes Screening Diabetes Screenin g [facility] Start: 03-12-2026 Annual PCP Team Quality Control Industrial Engineer lee Disease Visit Annual PCP Team Chronic Disease Visit [facility] Start: 03-07-2026 Annual PCP Team Quality Control Industrial Engineer lee Disease Visit Annual PCP Team Chronic Disease Visit [facility] Start: 03-02-2026 Hepatitis B screening Urine Albumin:Creatinine Ratio [facility] Start: 03-02-2026 Hepatitis B surface antibody level LDL Cholesterol [facility] Start: 02-08-2026 BP Controlled (<130/80) BP Controlle d (<130/80) [facility] Start: 02-08-2026 Screening for malign ant neoplasm of cervix Cervical Cancer Screening [facility] Start: 01-25-2026 Annual PCP Team Quality Control Industrial Engineer lee Disease Visit Annual PCP Team Chronic Disease Visit [facility] Start: 12-04-2025 DIABETES SCREEN DIABETES SCREEN [facility] Start: 11-10-2025 Annual PCP Team Quality Control Industrial Engineer lee Disease Visit Annual PCP Team Chronic Disease Visit [facility] Start: 11-10-2025 Diabetic foot examination Diabetic F oot Exam [facility] Start: 11-10-2025 Hepatitis B screening Urine Albumin:Creatinine Ratio [facility] Start: 10-20-2025 Screening for malign ant neoplasm of breast Mammogram Screening [facility] Start: 09-10-2025 End: 09-10-2025 Patient encounter procedure 09/10/2025 7:00 AM EST Office Visit OB/Gynecology [address] [place] [address] Katarina Guillory APRN.ELECTRONIC CALIBRATION TECHNICIAN [address] [place] [address] annual OB/Gynecology Comment on above: annual Start: 09-07-2025 End: 09-07-2025 Patient encounter procedure 09/07/2025 7:00 AM EST Office Visit OB/Gynecology [address] [place] [address] Katarina Guillory, LIZETH.ELECTRONIC CALIBRATION TECHNICIAN [address] [place] [address] Annual OB/Gynecology Comment on above: Annual Start: 09-05-2025 BP Controlled (<130/80) BP Controlle d (<130/80) [facility] Start: 08-17-2025 DIABETES SCREEN DIABETES SCREEN [facility] Start: 08-11-2025 Annual PCP Team Quality Control Industrial Engineer lee Disease Visit Annual PCP Team Chronic Disease Visit [facility] Start: 08-10-2025 End: 08-10-2025 Patient encounter procedure 08/10/2025 3:00 PM EST Office Visit [facility] [place] [address] [place] [address] Ana Bolaños MD [address] [place] [address] 3 month follow up [facility] [place] Comment on above: 3 month follow up Start: 07-25-2025 Hemoglobin A1c measurement HbA1C [facility] Start: 07-10-2025 End: 07-10-2025 Patient encounter procedure 07/10/2025 3:00 PM EDT Office Visit Neurology [address] [place], [place] [id number] Luz Meeks PA-C [address] [place], [place] [address] 3m f/up Neurology Comment on above: 3m f/up Start: 07-04-2025 End: 07-04-2025 Patient encounter procedure 07/04/2025 4:00 PM EDT Office Visit Neurology [address] [place], [place] [id number] Luz Meeks PA-C [address] [place], [place] [id number] 3m f/up Neurology Comment on above: 3m f/up Start: 06-12-2025 End: 09-11-2025 Basic metabolic 2000 panel - Serum or Plasma BASIC METABOLIC PANEL Lab Routine Hypokalemia Expected: 06/12/2025, Expires: 09/11/2025 [facility] Work Phone: Comment on above: Expected: 06/12/2025 , Expires: 09/11/2025 Start: 06-11-2025 End: 09-10-2025 Basic metabolic 2000 panel - Serum or Plasma BASIC METABOLIC PANEL Lab Routine Essential hypertension Hypokalemia Expected: 06/11/2025 (Approximate), Expires: 09/10/2025 [facility] Work Phone: Comment on above: Expected: 06/11/2025 (Approximate), Expires: 09/10/2025 Start: 06-11-2025 End: 06-11-2025 Patient encounter procedure 06/11/2025 7:00 AM EDT Office Visit Internal [facility] [place] [address] [place], [place] [id number] Fior Alavrez APRN.ELECTRONIC CALIBRATION TECHNICIAN [address] [place], [place] [id number] 3 mo follow up [facility] [place] Comment on above: 3 mo follow up Start: 05-14-2025 Influenza vaccination Influenza Vacc ine (#1) [facility] Start: 05-11-2025 End: 05-11-2025 Patient encounter procedure 05/11/2025 7:00 AM EDT Office Visit Internal [facility] [place] [address] [place] [address] Fior Alvarez APRN.ELECTRONIC CALIBRATION TECHNICIAN [address] [place] [address] Swelling/spironolactone [facility] [place] Comment on above: Swelling/spironolact one Start: 05-10-2025 End: 05-10-2025 Patient encounter procedure 05/10/2025 7:40 AM EDT Office Visit Internal Medicine [place] [address] [place] [address] Fior Alvarez APRN.ELECTRONIC CALIBRATION TECHNICIAN [address] [place] [address] 1 week BP follow up [facility] [place] Comment on above: 1 week BP follow up Start: 05-09-2025 Annual PCP Team Quality Control Industrial Engineer lee Disease Visit Annual PCP Team Chronic Disease Visit [facility] Start: 05-09-2025 Anxiety Screening Anxiety Screening [facility] Start: 05-09-2025 BP Controlled (<130/80) BP Controlle d (<130/80) [facility] Start: 05-09-2025 Depression Screening Depression Scre ening [facility] Start: 05-09-2025 Pneumococcal vaccination Pneum ococcal Vaccine (3 of 3 - PCV) [facility] Start: 05-09-2025 Pneumococcal Vaccine : 50+ (3 of 3 - PCV) Pneumococcal Vaccine: 50+ (3 of 3 - PCV) [facility] Start: 05-09-2025 End: 05-09-2025 Patient encounter procedure 05/09/2025 7:00 AM EDT Office Visit Internal [facility] [place] [address] [place] [address] Fior Alvarez APRN.ELECTRONIC CALIBRATION TECHNICIAN [address] [place] [address] 1 week BP follow up [facility] [place] Comment on above: 1 week BP follow up Start: 05-07-2025 End: 05-07-2025 Patient encounter procedure 05/07/2025 4:20 PM EDT Office Visit OB/Gynecology [address] [place] [address] Ash Chowdhury MD [address] [place] [address] POST OP OB/Gynecology Comment on above: POST OP Start: 05-07-2025 End: 05-07-2025 ambulatory 05/07/2025 3:30 PM EDT Results Only [place] [facility] [address] [place] [address] [place] [facility] Start: 05-02-2025 End: 05-02-2025 Patient encounter procedure 05/02/2025 3:40 PM EDT Office Visit Internal [facility] [place] [address] [place] [address] Fior Alvarez APRN.ELECTRONIC CALIBRATION TECHNICIAN [address] [place] [address] Spironolactone, swelling, and BP [facility] [place] Comment on above: Spironolactone, swel ling, and BP Start: 05-02-2025 End: 08-01-2025 Basic metabolic 2000 panel - Serum or Plasma BASIC METABOLIC PANEL Lab Routine Hypokalemia Expected: 05/02/2025, Expires: 08/01/2025 [facility] Work Phone: Comment on above: Expected: 05/02/2025 , Expires: 08/01/2025 Start: 04-27-2025 Hepatitis B surface antibody level LDL Cholesterol [facility] Start: 04-27-2025 End: 04-27-2025 ambulatory 04/27/2025 7:15 AM EDT Results Only [facility] [address] [place] [address] [facility] Start: 04-18-2025 End: 07-18-2025 Basic metabolic 2000 panel - Serum or Plasma BASIC METABOLIC PANEL Lab Routine Medication management Expected: 04/18/2025, Expires: 07/18/2025 [facility] Work Phone: Comment on above: Expected: 04/18/2025 , Expires: 07/18/2025 Start: 04-09-2025 End: 04-09-2025 Patient encounter procedure 04/09/2025 9:20 AM EDT Office Visit OB/Gynecology [address] [place] [address] Ash Chowdhury MD [address] [place] [address] surgery 04/20 @[facility] OB/Gynecology Comment on above: surgery 04/20 @[facility] Start: 04-09-2025 End: 04-09-2025 ambulatory 04/09/2025 8:30 AM EDT Results Only [place] [facility] [address] [place] [address] [place] [facility] Start: 04-05-2025 End: 07-05-2025 Basic metabolic 2000 panel - Serum or Plasma BASIC METABOLIC PANEL Lab Routine Hypokalemia Expected: 04/05/2025, Expires: 07/05/2025 [facility] Work Phone: Comment on above: Expected: 04/05/2025 , Expires: 07/05/2025 Start: 04-03-2025 Annual PCP Team Quality Control Industrial Engineer lee Disease Visit Annual PCP Team Chronic Disease Visit [facility] Start: 03-30-2025 End: 06-29-2025 Basic metabolic 2000 panel - Serum or Plasma [facility] Work Phone: Comment on above: Expected: 03/30/2025 , Expires: 06/29/2025 Start: 03-30-2025 End: 03-30-2025 Patient encounter procedure 03/30/2025 7:00 AM EDT Office Visit Internal [facility] [place] [address] [place] [address] Fior Alvarez APRN.ELECTRONIC CALIBRATION TECHNICIAN [address] [place] [address] PreOp Clearance for Surgery 04/20/2025 [facility] D/C [facility] [place] Comment on above: PreOp Clearance for Surgery 04/20/2025 [facility] D/C Start: 03-28-2025 End: 03-28-2025 Patient encounter procedure 03/28/2025 4:00 PM EDT Office Visit Neurology [address] [place] [address] Luz Meeks PA-C [address] [place] [address] Possible MRI Neurology Comment on above: Possible MRI Start: 03-22-2025 End: 03-22-2025 ambulatory 03/22/2025 11:30 AM EDT [facility] OB/Gynecology [address] [place] [address] Ash Chowdhury MD [address] [place] [address] discuss hysteroscopy D+C OB/Gynecology Comment on above: discuss hysteroscopy D+C Start: 03-12-2025 End: 03-12-2025 Patient encounter procedure 03/12/2025 8:40 AM EDT Office Visit [facility] [place] [address] [place] [address] Ana Bolaños MD [address] [place] [address] 4 month f/u [facility] [place] Comment on above: 4 month f/u Start: 03-03-2025 Annual PCP Team Quality Control Industrial Engineer lee Disease Visit Annual PCP Team Chronic Disease Visit [facility] Start: 03-02-2025 End: 03-02-2025 ambulatory 03/02/2025 8:30 AM EDT Results Only [facility] [address] [place] [address] [facility] Start: 02-27-2025 End: 05-29-2025 Lipid 1996 panel - Serum or Plasma LIPID PANEL, FASTING Lab Routine Hyperlipidemia, unspecified hyperlipidemia type Expected: 02/27/2025, Expires: 05/29/2025 [facility] Comment on above: Expected: 02/27/2025 , Expires: 05/29/2025 Start: 02-27-2025 End: 05-29-2025 Microalbumin/Creatinine [Mass Ratio] in Urine ALBUMIN/CREATININE RATIO, URINE Lab Routine Type 2 diabetes mellitus (HCC) Expected: 02/27/2025, Expires: 05/29/2025 [facility] Work Phone: Comment on above: Expected: 02/27/2025 , Expires: 05/29/2025 Start: 02-27-2025 End: 05-29-2025 Thyrotropin [Units/volume] in Serum or Plasma THYROID STIMULATING HORMONE Lab Routine Acquired hypothyroidism Expected: 02/27/2025, Expires: 05/29/2025 [facility] Comment on above: Expected: 02/27/2025 , Expires: 05/29/2025 Start: 02-09-2025 End: 02-09-2025 ambulatory Neurology Comment on above: Paresthesia of both feet [R20.2] R RISHABH r Jordan KEATING Start: 02-08-2025 End: 02-08-2025 Patient encounter procedure 02/08/2025 7:45 AM EDT Office Visit OB/Gynecology [address] [place], [place] [id number] Richie Newman APRN.ELECTRONIC CALIBRATION TECHNICIAN [address] [place] [address] fibroid cyst found on CT / Requesting VV OB/Gynecology Comment on above: fibroid cyst found o n CT / Requesting VV Start: 02-06-2025 End: 02-06-2025 Patient encounter procedure 02/06/2025 10:00 AM EDT Appointment Radiology [address] [place] [address] Dx: Uterine cyst [N85.8]; Abnormal CT scan [R93.89] Radiology Comment on above: Dx: Uterine cyst [N8 5.8]; Abnormal CT scan [R93.89] Start: 02-03-2025 Annual PCP Team Quality Control Industrial Engineer lee Disease Visit Annual PCP Team Chronic Disease Visit [facility] Start: 02-01-2025 End: 02-01-2025 Patient encounter procedure 02/01/2025 8:20 AM EDT Office Visit Internal [facility] [place] [address] [place] [address] Fior Alvarez APRN.ELECTRONIC CALIBRATION TECHNICIAN [address] [place] [address] 1 wk follow up [facility] [place] Comment on above: 1 wk follow up Start: 01-26-2025 Subsequent hospital visit by physician 01/26/2025 8:00 AM EDT Hospital Encounter [facility] [address] [place] [address] Right lower quadrant abdominal pain [R10.31] [facility] Comment on above: Right lower quadrant abdominal pain [R10.31] Start: 01-26-2025 End: 01-26-2025 Patient encounter procedure 01/26/2025 7:00 AM EDT Appointment [facility] [address] [place] [address] [address] [facility] Comment on above: CCN APPROVED Start: 01-22-2025 End: 04-23-2025 Cobalamin (Vitamin B12) [Mass/volume] in Serum or Plasma [facility] Work Phone: Comment on above: Expected: 01/22/2025 , Expires: 04/23/2025 Start: 01-22-2025 End: 04-23-2025 Folate [Mass/volume] in Serum or Plasma [facility] Comment on above: Expected: 01/22/2025 , Expires: 04/23/2025 Start: 01-22-2025 End: 04-23-2025 Hemoglobin A1c in Blood [facility] Comment on above: Expected: 01/22/2025 , Expires: 04/23/2025 Start: 01-22-2025 End: 04-23-2025 PROT ELECT SERUM WITH MICA AND INTERP [facility] Comment on above: Expected: 01/22/2025 , Expires: 04/23/2025 Start: 01-22-2025 End: 04-23-2025 Pyridoxine [Mass/volume] in Serum or Plasma [facility] Comment on above: Expected: 01/22/2025 , Expires: 04/23/2025 Start: 01-22-2025 End: 04-23-2025 VITAMIN B1 (THIAMINE), WHOLE BLOOD [facility] Comment on above: Expected: 01/22/2025 , Expires: 04/23/2025 Start: 01-17-2025 End: 01-17-2025 Patient encounter procedure Neurology Comment on above: follow up 6 months Neuropathy f/u 6 mon ths- EAR[facility] 07/18/24 increase gabapentin 400mg TID Start: 01-06-2025 Annual PCP Team Quality Control Industrial Engineer lee Disease Visit Annual PCP Team Chronic Disease Visit [facility] Start: 01-06-2025 BP Controlled (<130/80) BP Controlle d (<130/80) [facility] Start: 11-25-2024 Covid-19 Vaccine (8 - Pfizer risk ) Covid-19 Vaccine (8 - Pfizer risk ) [facility] Start: 11-20-2024 End: 11-20-2024 Patient encounter procedure 11/20/2024 8:40 AM EDT Office Visit [facility] [place] [address] [place] [address] Ana Bolaños MD [address] [place] [address] 3 month follow up [facility] [place] Comment on above: 3 month follow up Start: 11-14-2024 DIABETES SCREEN DIABETES SCREEN [facility] Start: 11-10-2024 End: 02-09-2025 Microalbumin/Creatinine [Mass Ratio] in Urine [facility] Work Phone: Comment on above: Expected: 11/10/2024 , Expires: 02/09/2025 Start: 11-10-2024 End: 11-10-2024 Patient encounter procedure 11/10/2024 8:00 AM EST Office Visit Internal Medicine [place] [address] [place] [address] Ana Bolaños MD [address] [facility] [place] [address] 3 month follow up [facility] [place] Comment on above: 3 month follow up Start: 10-28-2024 Hemoglobin A1c measurement HbA1C [facility] Start: 10-20-2024 End: 10-20-2024 Patient encounter procedure 10/20/2024 7:10 AM EST Appointment Mammogram [address] [place] [address] Encounter for screening mammogram for breast cancer [Z12.31] Mammogram Comment on above: Encounter for screen ing mammogram for breast cancer [Z12.31] Start: 10-08-2024 Screening for malign ant neoplasm of breast Mammogram Screening [facility] Start: 09-29-2024 Annual PCP Team Quality Control Industrial Engineer lee Disease Visit Annual PCP Team Chronic Disease Visit [facility] Start: 09-05-2024 End: 09-05-2024 Patient encounter procedure 09/05/2024 7:00 AM EST Office Visit OB/Gynecology [address] [place] [address] SearcyKatarina castro, PENCIL MAKER.ELECTRONIC CALIBRATION TECHNICIAN [address] [place] [address] ANNUAL OB/Gynecology Comment on above: ANNUAL Start: 08-31-2024 End: 08-31-2024 Patient encounter procedure 08/31/2024 7:00 AM EST Office Visit OB/Gynecology [address] [place] [address] Katarina Guillory, PENCIL MAKER.ELECTRONIC CALIBRATION TECHNICIAN [address] [place] [address] ANNUAL OB/Gynecology Comment on above: ANNUAL Start: 08-19-2024 Annual PCP Team Quality Control Industrial Engineer lee Disease Visit Annual PCP Team Chronic Disease Visit [facility] Start: 08-19-2024 Diabetic foot examination Diabetic F oot Exam [facility] Start: 08-11-2024 End: 11-10-2024 Basic metabolic 2000 panel - Serum or Plasma [facility] Work Phone: Comment on above: Expected: 08/11/2024 , Expires: 11/10/2024 Start: 08-11-2024 End: 08-11-2024 Patient encounter procedure 08/11/2024 9:00 AM EST Office Visit Internal [facility] [place] [address] [facility] [place] [address] Ana Bolaños MD [address] [place] [address] 3 month follow up Internal Medicine [place] Comment on above: 3 month follow up Start: 08-02-2024 Annual PCP Team Quality Control Industrial Engineer lee Disease Visit Annual PCP Team Chronic Disease Visit [facility] Start: 07-23-2024 Covid-19 Vaccine () Covid-19 Vaccine () [facility] Start: 07-18-2024 End: 07-18-2024 Patient encounter procedure 07/18/2024 4:15 PM EST Office Visit Neurology [address] [facility] [address] Luz Meeks PA-C [address] [facility] [place] [address] 3 month follow up Neurology Comment on above: 3 month follow up Start: 07-05-2024 End: 07-05-2024 Patient encounter procedure 07/05/2024 4:00 PM EDT Office Visit Neurology [address] [place] [address] Luz Meeks PA-C [address] [facility] [place] [address] 3 month follow up Neurology Comment on above: 3 month follow up Start: 06-15-2024 HPV TESTING HPV TESTING [facility] Start: 06-15-2024 PAP TESTING PAP TESTING [facility] Start: 06-15-2024 Screening for malign ant neoplasm of cervix [facility] Start: 05-14-2024 Covid-19 Vaccine () Covid-19 Vaccine () [facility] Start: 05-14-2024 Covid-19 Vaccine (7 - 2024-25 season) Covid-19 Vaccine ( season) [facility] Start: 05-14-2024 Influenza vaccination Influenza Vacc ine (#1) [facility] Start: 05-08-2024 End: 05-08-2024 Patient encounter procedure 05/08/2024 7:20 AM EDT Office Visit [facility] [place] [address] [facility] [place] [address] Fior Alvarez APRN.ELECTRONIC CALIBRATION TECHNICIAN [address] [facility] [place] [address] 2 month follow up [facility] [place] Comment on above: 2 month follow up Start: 05-05-2024 End: 05-05-2024 Patient encounter procedure 05/05/2024 7:20 AM EDT Office Visit Internal Medicine [place] [address] [facility] [place] [address] Fior Alvarez APRN.ELECTRONIC CALIBRATION TECHNICIAN [address] [facility] [place] [address] 2 month follow up [facility] [place] Comment on above: 2 month follow up Start: 03-28-2024 End: 03-28-2024 Patient encounter procedure 03/28/2024 7:00 AM EDT Office Visit Neurology [address] [place] [address] Luz Meeks PA-C [address] [place] [address] Neuropathy of feet Neurology Comment on above: Neuropathy of feet Start: 03-08-2024 Annual PCP Team Quality Control Industrial Engineer lee Disease Visit Annual PCP Team Chronic Disease Visit [facility] Start: 03-03-2024 End: 09-02-2024 25-hydroxyvitamin D3 [Mass/volume] in Serum or Plasma Vitamin D Deficiency Screening (Vit D 25) Lab Routine REMIGIO on CPAP Primary hypertension Deficiency of multiple nutrient elements Hyperlipidemia, unspecified hyperlipidemia type Class 2 severe obesity due to excess calories with serious comorbidity and body mass index (BMI) of 36.0 to 36.9 in adult Expected: 03/03/2024 (Approximate), Expires: 09/02/2024 [facility] Comment on above: Expected: 03/03/2024 (Approximate), Expires: 09/02/2024 Start: 03-03-2024 End: 09-02-2024 CBC panel - Blood by Automated count CBC Lab Routine REMIGIO on CPAP Primary hypertension Deficiency of multiple nutrient elements Hyperlipidemia, unspecified hyperlipidemia type Class 2 severe obesity due to excess calories with serious comorbidity and body mass index (BMI) of 36.0 to 36.9 in adult Expected: 03/03/2024 (Approximate), Expires: 09/02/2024 [facility] Comment on above: Expected: 03/03/2024 (Approximate), Expires: 09/02/2024 Start: 03-03-2024 End: 09-02-2024 Cobalamin (Vitamin B12) [Mass/volume] in Serum or Plasma Vitamin B12 Lab Routine ERMIGIO on CPAP Primary hypertension Deficiency of multiple nutrient elements Hyperlipidemia, unspecified hyperlipidemia type Class 2 severe obesity due to excess calories with serious comorbidity and body mass index (BMI) of 36.0 to 36.9 in adult Expected: 03/03/2024 (Approximate), Expires: 09/02/2024 [facility] Comment on above: Expected: 03/03/2024 (Approximate), Expires: 09/02/2024 Start: 03-03-2024 End: 09-02-2024 Comprehensive metabolic 1998 panel - Serum or Plasma Comprehensive metabolic panel Lab Routine REMIGIO on CPAP Primary hypertension Deficiency of multiple nutrient elements Hyperlipidemia, unspecified hyperlipidemia type Class 2 severe obesity due to excess calories with serious comorbidity and body mass index (BMI) of 36.0 to 36.9 in adult Expected: 03/03/2024 (Approximate), Expires: 09/02/2024 [facility] Comment on above: Expected: 03/03/2024 (Approximate), Expires: 09/02/2024 Start: 03-03-2024 End: 09-02-2024 Ferritin [Mass/volume] in Serum or Plasma Ferritin Lab Routine REMIGIO on CPAP Primary hypertension Deficiency of multiple nutrient elements Hyperlipidemia, unspecified hyperlipidemia type Class 2 severe obesity due to excess calories with serious comorbidity and body mass index (BMI) of 36.0 to 36.9 in adult Expected: 03/03/2024 (Approximate), Expires: 09/02/2024 [facility] Comment on above: Expected: 03/03/2024 (Approximate), Expires: 09/02/2024 Start: 03-03-2024 End: 09-02-2024 Folate [Mass/volume] in Serum or Plasma Folate Lab Routine REMIGIO on CPAP Primary hypertension Deficiency of multiple nutrient elements Hyperlipidemia, unspecified hyperlipidemia type Class 2 severe obesity due to excess calories with serious comorbidity and body mass index (BMI) of 36.0 to 36.9 in adult Expected: 03/03/2024 (Approximate), Expires: 09/02/2024 [facility] Comment on above: Expected: 03/03/2024 (Approximate), Expires: 09/02/2024 Start: 03-03-2024 End: 09-02-2024 Iron and Iron binding capacity panel - Serum or Plasma Iron Lab Routine REMIGIO on CPAP Primary hypertension Deficiency of multiple nutrient elements Hyperlipidemia, unspecified hyperlipidemia type Class 2 severe obesity due to excess calories with serious comorbidity and body mass index (BMI) of 36.0 to 36.9 in adult Expected: 03/03/2024 (Approximate), Expires: 09/02/2024 [facility] Comment on above: Expected: 03/03/2024 (Approximate), Expires: 09/02/2024 Start: 03-03-2024 End: 09-02-2024 Lipid 1996 panel - Serum or Plasma Lipid panel Lab Routine REMIGIO on CPAP Primary hypertension Deficiency of multiple nutrient elements Hyperlipidemia, unspecified hyperlipidemia type Class 2 severe obesity due to excess calories with serious comorbidity and body mass index (BMI) of 36.0 to 36.9 in adult Expected: 03/03/2024 (Approximate), Expires: 09/02/2024 [facility] Comment on above: Expected: 03/03/2024 (Approximate), Expires: 09/02/2024 Start: 03-03-2024 End: 09-02-2024 Magnesium [Mass/volume] in Serum or Plasma Magnesium Lab Routine REMIGIO on CPAP Primary hypertension Deficiency of multiple nutrient elements Hyperlipidemia, unspecified hyperlipidemia type Class 2 severe obesity due to excess calories with serious comorbidity and body mass index (BMI) of 36.0 to 36.9 in adult Expected: 03/03/2024 (Approximate), Expires: 09/02/2024 [facility] Comment on above: Expected: 03/03/2024 (Approximate), Expires: 09/02/2024 Start: 03-03-2024 End: 09-02-2024 Vitamin B1, whole blood Vitamin B1, whole blood Lab Routine REMIGIO on CPAP Primary hypertension Deficiency of multiple nutrient elements Hyperlipidemia, unspecified hyperlipidemia type Class 2 severe obesity due to excess calories with serious comorbidity and body mass index (BMI) of 36.0 to 36.9 in adult Expected: 03/03/2024 (Approximate), Expires: 09/02/2024 [facility] Comment on above: Expected: 03/03/2024 (Approximate), Expires: 09/02/2024 Start: 03-03-2024 End: 09-02-2024 Zinc Zinc Lab Routine REMIGIO on CPAP Primary hypertension Deficiency of multiple nutrient elements Hyperlipidemia, unspecified hyperlipidemia type Class 2 severe obesity due to excess calories with serious comorbidity and body mass index (BMI) of 36.0 to 36.9 in adult Expected: 03/03/2024 (Approximate), Expires: 09/02/2024 [facility] Work Phone: Comment on above: Expected: 03/03/2024 (Approximate), Expires: 09/02/2024 Start: 03-03-2024 End: 03-03-2024 Patient encounter procedure [facility] Comment on above: 1 month follow up Start: 02-04-2024 End: 02-04-2024 Patient encounter procedure 02/04/2024 7:00 AM EDT Office Visit [facility] [address] [place] [address] Jacquie Clarke, PENCIL MAKER.ELECTRONIC CALIBRATION TECHNICIAN [address] [place] [address] 4 week follow up [facility] Comment on above: 4 week follow up Start: 12-21-2023 End: 03-21-2024 Thyrotropin [Units/volume] in Serum or Plasma TSH BLD Lab Routine Acquired hypothyroidism Expected: 12/21/2023, Expires: 03/21/2024 [facility] Work Phone: Comment on above: Expected: 12/21/2023 , Expires: 03/21/2024 Start: 12-05-2023 ANNUAL PCP TEAM GROUND INSTRUCTOR ADVANCED LEE DISEASE VISIT ANNUAL PCP TEAM CHRONIC DISEASE VISIT [facility] Start: 12-05-2023 BP CONTROLLED (<130/80) BP CONTROLLE D (<130/80) [facility] Start: 12-05-2023 Diabetes mellitus screening Diabetes Screening [facility] Start: 12-04-2023 Covid-19 Vaccine () Covid-19 Vaccine () [facility] Start: 10-06-2023 End: 04-05-2024 25-hydroxyvitamin D3 [Mass/volume] in Serum or Plasma Vitamin D Deficiency Screening (Vit D 25) Lab Routine REMIGIO on CPAP Primary hypertension Deficiency of multiple nutrient elements Hyperlipidemia, unspecified hyperlipidemia type Class 1 obesity due to excess calories with serious comorbidity and body mass index (BMI) of 33.0 to 33.9 in adult Expected: 10/06/2023 (Approximate), Expires: 04/05/2024 [facility] Comment on above: Expected: 10/06/2023 (Approximate), Expires: 04/05/2024 Start: 10-06-2023 End: 04-05-2024 CBC panel - Blood by Automated count CBC Lab Routine REMIGIO on CPAP Primary hypertension Deficiency of multiple nutrient elements Hyperlipidemia, unspecified hyperlipidemia type Class 1 obesity due to excess calories with serious comorbidity and body mass index (BMI) of 33.0 to 33.9 in adult Expected: 10/06/2023 (Approximate), Expires: 04/05/2024 [facility] Comment on above: Expected: 10/06/2023 (Approximate), Expires: 04/05/2024 Start: 10-06-2023 End: 04-05-2024 Cobalamin (Vitamin B12) [Mass/volume] in Serum or Plasma Vitamin B12 Lab Routine REMIGIO on CPAP Primary hypertension Deficiency of multiple nutrient elements Hyperlipidemia, unspecified hyperlipidemia type Class 1 obesity due to excess calories with serious comorbidity and body mass index (BMI) of 33.0 to 33.9 in adult Expected: 10/06/2023 (Approximate), Expires: 04/05/2024 [facility] Comment on above: Expected: 10/06/2023 (Approximate), Expires: 04/05/2024 Start: 10-06-2023 End: 04-05-2024 Comprehensive metabolic 1998 panel - Serum or Plasma Comprehensive metabolic panel Lab Routine REMIGIO on CPAP Primary hypertension Deficiency of multiple nutrient elements Hyperlipidemia, unspecified hyperlipidemia type Class 1 obesity due to excess calories with serious comorbidity and body mass index (BMI) of 33.0 to 33.9 in adult Expected: 10/06/2023 (Approximate), Expires: 04/05/2024 [facility] Comment on above: Expected: 10/06/2023 (Approximate), Expires: 04/05/2024 Start: 10-06-2023 End: 04-05-2024 Ferritin [Mass/volume] in Serum or Plasma Ferritin Lab Routine REMIGIO on CPAP Primary hypertension Deficiency of multiple nutrient elements Hyperlipidemia, unspecified hyperlipidemia type Class 1 obesity due to excess calories with serious comorbidity and body mass index (BMI) of 33.0 to 33.9 in adult Expected: 10/06/2023 (Approximate), Expires: 04/05/2024 [facility] Comment on above: Expected: 10/06/2023 (Approximate), Expires: 04/05/2024 Start: 10-06-2023 End: 04-05-2024 Folate [Mass/volume] in Serum or Plasma Folate Lab Routine REMIGIO on CPAP Primary hypertension Deficiency of multiple nutrient elements Hyperlipidemia, unspecified hyperlipidemia type Class 1 obesity due to excess calories with serious comorbidity and body mass index (BMI) of 33.0 to 33.9 in adult Expected: 10/06/2023 (Approximate), Expires: 04/05/2024 [facility] Comment on above: Expected: 10/06/2023 (Approximate), Expires: 04/05/2024 Start: 10-06-2023 End: 04-05-2024 Iron and Iron binding capacity panel - Serum or Plasma Iron Lab Routine REMIGIO on CPAP Primary hypertension Deficiency of multiple nutrient elements Hyperlipidemia, unspecified hyperlipidemia type Class 1 obesity due to excess calories with serious comorbidity and body mass index (BMI) of 33.0 to 33.9 in adult Expected: 10/06/2023 (Approximate), Expires: 04/05/2024 [facility] Comment on above: Expected: 10/06/2023 (Approximate), Expires: 04/05/2024 Start: 10-06-2023 End: 04-05-2024 Lipid 1996 panel - Serum or Plasma Lipid panel Lab Routine REMIGIO on CPAP Primary hypertension Deficiency of multiple nutrient elements Hyperlipidemia, unspecified hyperlipidemia type Class 1 obesity due to excess calories with serious comorbidity and body mass index (BMI) of 33.0 to 33.9 in adult Expected: 10/06/2023 (Approximate), Expires: 04/05/2024 [facility] Comment on above: Expected: 10/06/2023 (Approximate), Expires: 04/05/2024 Start: 10-06-2023 End: 04-05-2024 Magnesium [Mass/volume] in Serum or Plasma Magnesium Lab Routine REMIGIO on CPAP Primary hypertension Deficiency of multiple nutrient elements Hyperlipidemia, unspecified hyperlipidemia type Class 1 obesity due to excess calories with serious comorbidity and body mass index (BMI) of 33.0 to 33.9 in adult Expected: 10/06/2023 (Approximate), Expires: 04/05/2024 [facility] Comment on above: Expected: 10/06/2023 (Approximate), Expires: 04/05/2024 Start: 10-06-2023 End: 04-05-2024 Vitamin B1, whole blood Vitamin B1, whole blood Lab Routine REMIGIO on CPAP Primary hypertension Deficiency of multiple nutrient elements Hyperlipidemia, unspecified hyperlipidemia type Class 1 obesity due to excess calories with serious comorbidity and body mass index (BMI) of 33.0 to 33.9 in adult Expected: 10/06/2023 (Approximate), Expires: 04/05/2024 [facility] Comment on above: Expected: 10/06/2023 (Approximate), Expires: 04/05/2024 Start: 10-06-2023 End: 04-05-2024 Zinc Zinc Lab Routine REMIGIO on CPAP Primary hypertension Deficiency of multiple nutrient elements Hyperlipidemia, unspecified hyperlipidemia type Class 1 obesity due to excess calories with serious comorbidity and body mass index (BMI) of 33.0 to 33.9 in adult Expected: 10/06/2023 (Approximate), Expires: 04/05/2024 [facility] Work Phone: Comment on above: Expected: 10/06/2023 (Approximate), Expires: 04/05/2024 Start: 09-30-2023 Screening for malign ant neoplasm of breast Mammogram [facility] Start: 09-13-2023 Behavioral Health Screening Behavioral Health Screening [facility] Start: 09-13-2023 Depression Assessment Depression Ass essment [facility] Start: 09-02-2023 End: 09-02-2023 Patient encounter procedure 09/02/2023 9:45 AM EST Office Visit [facility] [address] [facility] [address] [place] [id number] Gavin Moctezuma MD [address] [facility] [address] [place] [address] Weight [facility] Start: 08-28-2023 ANNUAL PCP TEAM GROUND INSTRUCTOR ADVANCED LEE DISEASE VISIT ANNUAL PCP TEAM CHRONIC DISEASE VISIT [facility] Start: 08-28-2023 BP CONTROLLED (<130/80) BP CONTROLLE D (<130/80) [facility] Start: 08-28-2023 HEPATITIS B (1 of 3 - 3-dose series) HEPATITIS B (1 of 3 - 3-dose series) [facility] Comment on above: Postponed from 12/05 (Declined at this time) Start: 08-28-2023 Hepatitis B Vaccine (1 of 3 - 3-dose series) Hepatitis B Vaccine (1 of 3 - 3-dose series) [facility] Comment on above: Postponed from 12/05 (Declined at this time) Start: 08-28-2023 PNEUMOCOCCAL (3 - PCV) PNEUMOCOCCAL (3 - PCV) [facility] Comment on above: Postponed from 07/12 (Declined at this time) Start: 08-28-2023 Pneumococcal vaccination Pneum ococcal Vaccine (3 - PCV) [facility] Comment on above: Postponed from 07/12 (Declined at this time) Start: 08-17-2023 Thyroid stimulating hormone measurement TSH Level [facility] Start: 08-13-2023 Diabetes mellitus screening Diabetes Screening [facility] Start: 08-03-2023 End: 11-02-2023 Thyrotropin [Units/volume] in Serum or Plasma TSH BLD Lab Routine Acquired hypothyroidism Expected: 08/03/2023, Expires: 11/02/2023 [facility] Work Phone: Comment on above: Expected: 08/03/2023 , Expires: 11/02/2023 Start: 07-06-2023 End: 04-05-2024 25-hydroxyvitamin D3 [Mass/volume] in Serum or Plasma Vitamin D Deficiency Screening (Vit D 25) Lab Routine REMIGIO on CPAP Primary hypertension Deficiency of multiple nutrient elements Hyperlipidemia, unspecified hyperlipidemia type Class 1 obesity due to excess calories with serious comorbidity and body mass index (BMI) of 33.0 to 33.9 in adult High vitamin D level Expected: 07/06/2023 (Approximate), Expires: 04/05/2024 [facility] Comment on above: Expected: 07/06/2023 (Approximate), Expires: 04/05/2024 Start: 05-14-2023 Covid-19 Vaccine () Covid-19 Vaccine () [facility] Start: 05-14-2023 Influenza vaccination Influenza Vacc ine (#1) [facility] Start: 04-02-2023 End: 04-02-2023 Patient encounter procedure 04/02/2023 Office Visit Bariatrics Garret Burt PA [address] [place] [address] [facility] Start: 03-09-2023 ANNUAL PCP TEAM GROUND INSTRUCTOR ADVANCED LEE DISEASE VISIT ANNUAL PCP TEAM CHRONIC DISEASE VISIT [facility] Start: 03-04-2023 End: 12-03-2023 25-hydroxyvitamin D3 [Mass/volume] in Serum or Plasma Vitamin D 25 hydroxy Lab Routine REMIGIO on CPAP Primary hypertension Deficiency of multiple nutrient elements Class 2 severe obesity due to excess calories with serious comorbidity and body mass index (BMI) of 35.0 to 35.9 in adult (HCC) Expected: 03/04/2023 (Approximate), Expires: 12/03/2023 [facility] Comment on above: Expected: 03/04/2023 (Approximate), Expires: 12/03/2023 Start: 03-04-2023 End: 12-03-2023 CBC panel - Blood by Automated count CBC Lab Routine REMIGIO on CPAP Primary hypertension Deficiency of multiple nutrient elements Class 2 severe obesity due to excess calories with serious comorbidity and body mass index (BMI) of 35.0 to 35.9 in adult (HCC) Expected: 03/04/2023 (Approximate), Expires: 12/03/2023 [facility] Comment on above: Expected: 03/04/2023 (Approximate), Expires: 12/03/2023 Start: 03-04-2023 End: 12-03-2023 Cobalamin (Vitamin B12) [Mass/volume] in Serum or Plasma Vitamin B12 Lab Routine REMIGIO on CPAP Primary hypertension Deficiency of multiple nutrient elements Class 2 severe obesity due to excess calories with serious comorbidity and body mass index (BMI) of 35.0 to 35.9 in adult (HCC) Expected: 03/04/2023 (Approximate), Expires: 12/03/2023 [facility] Comment on above: Expected: 03/04/2023 (Approximate), Expires: 12/03/2023 Start: 03-04-2023 End: 12-03-2023 Comprehensive metabolic 1998 panel - Serum or Plasma Comprehensive metabolic panel Lab Routine REMIGIO on CPAP Primary hypertension Deficiency of multiple nutrient elements Class 2 severe obesity due to excess calories with serious comorbidity and body mass index (BMI) of 35.0 to 35.9 in adult ([facility]) Expected: 03/04/2023 (Approximate), Expires: 12/03/2023 [facility] Comment on above: Expected: 03/04/2023 (Approximate), Expires: 12/03/2023 Start: 03-04-2023 End: 12-03-2023 Ferritin [Mass/volume] in Serum or Plasma Ferritin Lab Routine REMIGIO on CPAP Primary hypertension Deficiency of multiple nutrient elements Class 2 severe obesity due to excess calories with serious comorbidity and body mass index (BMI) of 35.0 to 35.9 in adult ([facility]) Expected: 03/04/2023 (Approximate), Expires: 12/03/2023 [facility] Comment on above: Expected: 03/04/2023 (Approximate), Expires: 12/03/2023 Start: 03-04-2023 End: 12-03-2023 Folate [Mass/volume] in Serum or Plasma Folate Lab Routine REMIGIO on CPAP Primary hypertension Deficiency of multiple nutrient elements Class 2 severe obesity due to excess calories with serious comorbidity and body mass index (BMI) of 35.0 to 35.9 in adult (HCC) Expected: 03/04/2023 (Approximate), Expires: 12/03/2023 [facility] Comment on above: Expected: 03/04/2023 (Approximate), Expires: 12/03/2023 Start: 03-04-2023 End: 12-03-2023 Iron and Iron binding capacity panel - Serum or Plasma Iron Lab Routine REMIGIO on CPAP Primary hypertension Deficiency of multiple nutrient elements Class 2 severe obesity due to excess calories with serious comorbidity and body mass index (BMI) of 35.0 to 35.9 in adult (HCC) Expected: 03/04/2023 (Approximate), Expires: 12/03/2023 [facility] Comment on above: Expected: 03/04/2023 (Approximate), Expires: 12/03/2023 Start: 03-04-2023 End: 12-03-2023 Lipid 1996 panel - Serum or Plasma Lipid panel Lab Routine REMIGIO on CPAP Primary hypertension Deficiency of multiple nutrient elements Class 2 severe obesity due to excess calories with serious comorbidity and body mass index (BMI) of 35.0 to 35.9 in adult ([facility]) Expected: 03/04/2023 (Approximate), Expires: 12/03/2023 [facility] Comment on above: Expected: 03/04/2023 (Approximate), Expires: 12/03/2023 Start: 03-04-2023 End: 12-03-2023 Magnesium [Mass/volume] in Serum or Plasma Magnesium Lab Routine REMIGIO on CPAP Primary hypertension Deficiency of multiple nutrient elements Class 2 severe obesity due to excess calories with serious comorbidity and body mass index (BMI) of 35.0 to 35.9 in adult ([facility]) Expected: 03/04/2023 (Approximate), Expires: 12/03/2023 [facility] Comment on above: Expected: 03/04/2023 (Approximate), Expires: 12/03/2023 Start: 03-04-2023 End: 12-03-2023 Vitamin B1, whole blood Vitamin B1, whole blood Lab Routine REMIGIO on CPAP Primary hypertension Deficiency of multiple nutrient elements Class 2 severe obesity due to excess calories with serious comorbidity and body mass index (BMI) of 35.0 to 35.9 in adult (HCC) Expected: 03/04/2023 (Approximate), Expires: 12/03/2023 [facility] Comment on above: Expected: 03/04/2023 (Approximate), Expires: 12/03/2023 Start: 03-04-2023 End: 12-03-2023 Zinc Zinc Lab Routine REMIGIO on CPAP Primary hypertension Deficiency of multiple nutrient elements Class 2 severe obesity due to excess calories with serious comorbidity and body mass index (BMI) of 35.0 to 35.9 in adult (HCC) Expected: 03/04/2023 (Approximate), Expires: 12/03/2023 [facility] Work Phone: Comment on above: Expected: 03/04/2023 (Approximate), Expires: 12/03/2023 Start: 03-03-2023 End: 03-03-2023 Patient encounter procedure 03/03/2023 Office Visit Bariatrics Garret Burt PA [address] [place] [address] [facility] Start: 2022 End: 10-08-2023 CBC panel - Blood by Automated count CBC Lab Routine Primary hypertension Hyperlipidemia, unspecified hyperlipidemia type Hypothyroidism, unspecified type REMIGIO (obstructive sleep apnea) Class 2 obesity due to excess calories with body mass index (BMI) of 38.0 to 38.9 in adult, unspecified whether serious comorbidity present Deficiency of multiple nutrient elements Expected: 2022 (Approximate), Expires: 10/08/2023 [facility] Comment on above: Expected: 2022 (Approximate), Expires: 10/08/2023 Start: 2022 End: 10-08-2023 Cobalamin (Vitamin B12) [Mass/volume] in Serum or Plasma Vitamin B12 Lab Routine Primary hypertension Hyperlipidemia, unspecified hyperlipidemia type Hypothyroidism, unspecified type REMIGIO (obstructive sleep apnea) Class 2 obesity due to excess calories with body mass index (BMI) of 38.0 to 38.9 in adult, unspecified whether serious comorbidity present Deficiency of multiple nutrient elements Expected: 2022 (Approximate), Expires: 10/08/2023 [facility] Comment on above: Expected: 2022 (Approximate), Expires: 10/08/2023 Start: 2022 End: 10-08-2023 Comprehensive metabolic 1998 panel - Serum or Plasma Comprehensive metabolic panel Lab Routine Primary hypertension Hyperlipidemia, unspecified hyperlipidemia type Hypothyroidism, unspecified type REMIGIO (obstructive sleep apnea) Class 2 obesity due to excess calories with body mass index (BMI) of 38.0 to 38.9 in adult, unspecified whether serious comorbidity present Deficiency of multiple nutrient elements Expected: 2022 (Approximate), Expires: 10/08/2023 [facility] Comment on above: Expected: 2022 (Approximate), Expires: 10/08/2023 Start: 2022 End: 10-08-2023 Ferritin [Mass/volume] in Serum or Plasma Ferritin Lab Routine Primary hypertension Hyperlipidemia, unspecified hyperlipidemia type Hypothyroidism, unspecified type REMIGIO (obstructive sleep apnea) Class 2 obesity due to excess calories with body mass index (BMI) of 38.0 to 38.9 in adult, unspecified whether serious comorbidity present Deficiency of multiple nutrient elements Expected: 2022 (Approximate), Expires: 10/08/2023 [facility] Comment on above: Expected: 2022 (Approximate), Expires: 10/08/2023 Start: 2022 End: 10-08-2023 Folate [Mass/volume] in Serum or Plasma Folate Lab Routine Primary hypertension Hyperlipidemia, unspecified hyperlipidemia type Hypothyroidism, unspecified type REMIGIO (obstructive sleep apnea) Class 2 obesity due to excess calories with body mass index (BMI) of 38.0 to 38.9 in adult, unspecified whether serious comorbidity present Deficiency of multiple nutrient elements Expected: 2022 (Approximate), Expires: 10/08/2023 [facility] Comment on above: Expected: 2022 (Approximate), Expires: 10/08/2023 Start: 2022 End: 10-08-2023 Iron and Iron binding capacity panel - Serum or Plasma Iron Lab Routine Primary hypertension Hyperlipidemia, unspecified hyperlipidemia type Hypothyroidism, unspecified type REMIGIO (obstructive sleep apnea) Class 2 obesity due to excess calories with body mass index (BMI) of 38.0 to 38.9 in adult, unspecified whether serious comorbidity present Deficiency of multiple nutrient elements Expected: 2022 (Approximate), Expires: 10/08/2023 [facility] Comment on above: Expected: 2022 (Approximate), Expires: 10/08/2023 Start: 2022 End: 10-08-2023 Magnesium [Mass/volume] in Serum or Plasma Magnesium Lab Routine Primary hypertension Hyperlipidemia, unspecified hyperlipidemia type Hypothyroidism, unspecified type REMIGIO (obstructive sleep apnea) Class 2 obesity due to excess calories with body mass index (BMI) of 38.0 to 38.9 in adult, unspecified whether serious comorbidity present Deficiency of multiple nutrient elements Expected: 2022 (Approximate), Expires: 10/08/2023 [facility] Comment on above: Expected: 2022 (Approximate), Expires: 10/08/2023 Start: 2022 End: 10-08-2023 Zinc Zinc Lab Routine Primary hypertension Hyperlipidemia, unspecified hyperlipidemia type Hypothyroidism, unspecified type REMIGIO (obstructive sleep apnea) Class 2 obesity due to excess calories with body mass index (BMI) of 38.0 to 38.9 in adult, unspecified whether serious comorbidity present Deficiency of multiple nutrient elements Expected: 2022 (Approximate), Expires: 10/08/2023 [facility] Work Phone: Comment on above: Expected: 2022 (Approximate), Expires: 10/08/2023 Start: 12-02-2022 End: 12-02-2022 Patient encounter procedure 12/02/2022 Office Visit Bariatrics Garret Burt PA [address] [place] [address] [facility] Start: 11-15-2022 Adult depression screening assessment DEPRESSION SCREENING [facility] Start: 11-14-2022 Creatinine measurement Creatinine mo nitoring [facility] Start: 11-14-2022 Lipid panel [facility] Start: 11-14-2022 Potassium monitoring Potassium monit oring [facility] Start: 11-03-2022 ANNUAL PCP TEAM GROUND INSTRUCTOR ADVANCED LEE DISEASE VISIT ANNUAL PCP TEAM CHRONIC DISEASE VISIT [facility] Start: 10-08-2022 End: 10-01-2023 Potassium [Moles/volume] in Serum or Plasma Potassium Lab Routine Hypokalemia Expected: 10/08/2022 (Approximate), Expires: 10/01/2023 [facility] Work Phone: Comment on above: Expected: 10/08/2022 (Approximate), Expires: 10/01/2023 Start: 10-08-2022 End: 10-08-2022 Patient encounter procedure 10/08/2022 Office Visit Bariatrics Gavin Moctezuma MD [address] [place], [place] [id number] [facility] Start: 09-24-2022 End: 09-10-2023 CBC panel - Blood by Automated count CBC Lab Routine Deficiency of multiple nutrient elements REMIGIO (obstructive sleep apnea) Hyperlipidemia, unspecified hyperlipidemia type Primary hypertension Morbid obesity with BMI of 40.0-44.9, adult (HCC) Expected: 09/24/2022 (Approximate), Expires: 09/10/2023 [facility] Comment on above: Expected: 09/24/2022 (Approximate), Expires: 09/10/2023 Start: 09-24-2022 End: 09-10-2023 Cobalamin (Vitamin B12) [Mass/volume] in Serum or Plasma Vitamin B12 Lab Routine Deficiency of multiple nutrient elements REMIGIO (obstructive sleep apnea) Hyperlipidemia, unspecified hyperlipidemia type Primary hypertension Morbid obesity with BMI of 40.0-44.9, adult (HCC) Expected: 09/24/2022 (Approximate), Expires: 09/10/2023 [facility] Comment on above: Expected: 09/24/2022 (Approximate), Expires: 09/10/2023 Start: 09-24-2022 End: 09-10-2023 Comprehensive metabolic 1998 panel - Serum or Plasma Comprehensive metabolic panel Lab Routine Deficiency of multiple nutrient elements REMIGIO (obstructive sleep apnea) Hyperlipidemia, unspecified hyperlipidemia type Primary hypertension Morbid obesity with BMI of 40.0-44.9, adult (HCC) Expected: 09/24/2022 (Approximate), Expires: 09/10/2023 [facility] Comment on above: Expected: 09/24/2022 (Approximate), Expires: 09/10/2023 Start: 09-24-2022 End: 09-10-2023 Ferritin [Mass/volume] in Serum or Plasma Ferritin Lab Routine Deficiency of multiple nutrient elements REMIGIO (obstructive sleep apnea) Hyperlipidemia, unspecified hyperlipidemia type Primary hypertension Morbid obesity with BMI of 40.0-44.9, adult (HCC) Expected: 09/24/2022 (Approximate), Expires: 09/10/2023 [facility] Comment on above: Expected: 09/24/2022 (Approximate), Expires: 09/10/2023 Start: 09-24-2022 End: 09-10-2023 Folate [Mass/volume] in Serum or Plasma Folate Lab Routine Deficiency of multiple nutrient elements REMIGIO (obstructive sleep apnea) Hyperlipidemia, unspecified hyperlipidemia type Primary hypertension Morbid obesity with BMI of 40.0-44.9, adult (HCC) Expected: 09/24/2022 (Approximate), Expires: 09/10/2023 [facility] Comment on above: Expected: 09/24/2022 (Approximate), Expires: 09/10/2023 Start: 09-24-2022 End: 09-10-2023 Iron and Iron binding capacity panel - Serum or Plasma Iron Lab Routine Deficiency of multiple nutrient elements REMIGIO (obstructive sleep apnea) Hyperlipidemia, unspecified hyperlipidemia type Primary hypertension Morbid obesity with BMI of 40.0-44.9, adult (HCC) Expected: 09/24/2022 (Approximate), Expires: 09/10/2023 [facility] [facility] Comment on above: Expected: 09/24/2022 (Approximate), Expires: 09/10/2023 Start: 09-24-2022 End: 09-10-2023 Magnesium [Mass/volume] in Serum or Plasma Magnesium Lab Routine Deficiency of multiple nutrient elements REMIGIO (obstructive sleep apnea) Hyperlipidemia, unspecified hyperlipidemia type Primary hypertension Morbid obesity with BMI of 40.0-44.9, adult (HCC) Expected: 09/24/2022 (Approximate), Expires: 09/10/2023 [facility] Comment on above: Expected: 09/24/2022 (Approximate), Expires: 09/10/2023 Start: 09-24-2022 End: 09-10-2023 Zinc Zinc Lab Routine Deficiency of multiple nutrient elements REMIGIO (obstructive sleep apnea) Hyperlipidemia, unspecified hyperlipidemia type Primary hypertension Morbid obesity with BMI of 40.0-44.9, adult (HCC) Expected: 09/24/2022 (Approximate), Expires: 09/10/2023 [facility] Work Phone: Comment on above: Expected: 09/24/2022 (Approximate), Expires: 09/10/2023 Start: 09-13-2022 DEPRESSION ASSESSMENT DEPRESSION ASS ESSMENT [facility] Start: 08-11-2022 End: 10-11-2022 Basic metabolic 2000 panel - Serum or Plasma BASIC METABOLIC PNL Lab Routine Medication management Expected: 08/11/2022, Expires: 10/11/2022 [facility] Work Phone: Comment on above: Expected: 08/11/2022 , Expires: 10/11/2022 Start: 08-11-2022 End: 10-11-2022 Lipid 1996 panel - Serum or Plasma LIPID PANEL BASIC Lab Routine Medication management Expected: 08/11/2022, Expires: 10/11/2022 [facility] Work Phone: Comment on above: Expected: 08/11/2022 , Expires: 10/11/2022 Start: 08-11-2022 End: 10-11-2022 SCHEDULE LAB TESTING SCHEDULE LAB TESTING Lab Routine Expected: 08/11/2022, Expires: 10/11/2022 [facility] Work Phone: Comment on above: Expected: 08/11/2022 , Expires: 10/11/2022 Start: 08-11-2022 End: 10-11-2022 Thyrotropin [Units/volume] in Serum or Plasma TSH BLD Lab Routine Acquired hypothyroidism Expected: 08/11/2022, Expires: 10/11/2022 [facility] Work Phone: Comment on above: Expected: 08/11/2022 , Expires: 10/11/2022 Start: 06-03-2022 COVID-19 VACCINE (5 - Booster for Pfizer series) COVID-19 VACCINE (5 - Booster for Pfizer series) [facility] Start: 05-14-2022 Influenza vaccination S [facility] Start: 04-08-2022 End: 04-08-2022 Telemedicine consultation with patient 04/08/2022 Telemedicine Pulmonology Jeannine Ross, PENCIL MAKER - ELECTRONIC CALIBRATION TECHNICIAN [address] [place] [address] [facility] Start: 03-28-2022 COVID-19 VACCINE (5 - Booster for Pfizer series) COVID-19 VACCINE (5 - Booster for Pfizer series) [facility] Start: 03-20-2022 End: 03-20-2022 Patient encounter procedure 03/20/2022 Office Visit Weight Management Shalonda Bar MD [address] [place] [address] [facility] Start: 02-24-2022 End: 04-26-2022 CBC panel - Blood by Automated count CBC Lab Routine Medication management Expected: 02/24/2022, Expires: 04/26/2022 [facility] Work Phone: Comment on above: Expected: 02/24/2022 , Expires: 04/26/2022 Start: 02-24-2022 End: 04-26-2022 SCHEDULE LAB TESTING SCHEDULE LAB TESTING Lab Routine Expected: 02/24/2022, Expires: 04/26/2022 [facility] Work Phone: Comment on above: Expected: 02/24/2022 , Expires: 04/26/2022 Start: 02-20-2022 End: 02-20-2022 Patient encounter procedure 02/20/2022 Office Visit Weight Management Shalonda Bar MD [address] [place] [address] [facility] Start: 01-28-2022 End: 01-28-2022 Patient encounter procedure 01/28/2022 Office Visit Cardiology Eduardo Rodriguez MD [address] [place] [address] [facility] Start: 01-23-2022 End: 01-23-2022 Patient encounter procedure 01/23/2022 Office Visit Weight Management Shalonda Bar MD [address] [place] [address] [facility] Start: 01-07-2022 End: 01-07-2022 Telemedicine consultation with patient 01/07/2022 Telemedicine Pulmonology Jeannine Ross, PENCIL MAKER - ELECTRONIC CALIBRATION TECHNICIAN [address] [place] [address] [facility] Start: 12-09-2021 End: 12-09-2021 Patient encounter procedure 12/09/2021 Office Visit Pulmonology Jeannine Ross, PENCIL MAKER - ELECTRONIC CALIBRATION TECHNICIAN [address] [place] [address] [facility] Start: 11-18-2021 End: 11-18-2021 Patient encounter procedure 11/18/2021 Appointment General Surgery Gavin Moctezuma MD [address] [place] [address] [facility] Start: 10-17-2021 End: 10-17-2021 Patient encounter procedure 10/17/2021 Office Visit Weight Management Shalonda Bar MD [address] [place] [address] [facility] Start: 10-15-2021 End: 10-15-2021 ambulatory 10/15/2021 Virtual Visit Bariatrics Lorena Alexis, RD, LD [address] [place] [address] [facility] Start: 09-14-2021 COVID-19 VACCINE (4 - Booster for Pfizer series) COVID-19 VACCINE (4 - Booster for Pfizer series) [facility] Start: 09-13-2021 DEPRESSION ASSESSMENT DEPRESSION ASS ESSMENT [facility] Start: 08-02-2021 Mammography [facility] Start: 06-15-2020 Screening for malign ant neoplasm of cervix Cervical Cancer Screening [facility] Start: 10-23-2019 End: 10-23-2019 Patient encounter procedure 10/23/2019 Office Visit Orthopedic Surgery Joi Srivastava PA [address] [facility] [address] [place] [address] [phone] [facility] [place] Start: 12-05-2017 Breast cancer screen Breast cancer s creen [facility] Work Phone: Start: 12-05-2017 Colon cancer screen colonoscopy Colon cancer screen colonoscopy [facility] Work Phone: Start: 12-05-2017 Screening for malign ant neoplasm of breast Breast cancer screen [facility] Start: 12-05-2017 Shingles Vaccine (1 of 2) Lopez gles Vaccine (1 of 2) [facility] Work Phone: Start: 05-23-2017 Hepatitis B screening Urine Albumin:Creatinine Ratio [facility] Start: 11-30-2015 Glaucoma screening Dilated Retinal E xam [facility] Start: 07-12-2015 PNEUMOCOCCAL (3 - PCV) PNEUMOCOCCAL (3 - PCV) [facility] Start: 07-12-2015 Pneumococcal vaccination Pneum ococcal Vaccine (3 of 3 - PCV) [facility] Start: 06-02-2015 FECAL OCCULT BLOOD FECAL OCCULT BLOO D [facility] Start: 06-02-2015 Screening for malign ant neoplasm of colon Fecal Occult Blood [facility] Start: 12-05-2012 COLOGUARD (FIT-DNA) COLOGUARD (FIT-D NA) [facility] Start: 12-05-[address] COLONOGRAPHY [facility] Start: 12-05-2012 Screening for malign ant neoplasm of colon [facility] Start: 12-05-2012 SIGMOIDOSCOPY SIGMOIDOSCOPY [place] Start: 09-30-2009 MMR Vaccines (1 of 1 - Standard series) MMR Vaccines (1 of 1 - Standard series) [facility] Start: 2007 Diabetes screen Diabetes screen [facility] Work Phone: Start: 2007 Screening for malign ant neoplasm of breast Mammogram [facility] Start: 12-05-2002 Diabetes screen Diabetes screen [facility] Start: 12-05-1997 Screening for malign ant neoplasm of cervix [facility] Start: 12-05-1988 Cervical cancer screen Cervical canc er screen [facility] Work Phone: Start: 12-05-1988 Screening for malign ant neoplasm of cervix Pap smear [facility] Start: 12-05-1986 Hepatitis A Vaccines (1 of 2 - Risk 2-dose series) Hepatitis A Vaccines (1 of 2 - Risk 2-dose series) [facility] Start: 12-05-1986 Hepatitis B Vaccine (1 of 3 - 19+ 3-dose series) Hepatitis B Vaccine (1 of 3 - 19+ 3-dose series) [facility] Start: 12-05-1985 Anxiety Screening Anxiety Screening [facility] Start: 12-05-1985 BP Controlled (<130/80) BP Controlle d (<130/80) [facility] Start: 12-05-1985 Depression Screening Depression Scre ening [facility] Start: 12-05-1985 Hepatitis C screening [facility] Start: 12-05-1985 HIV SCREENING HIV SCREENING [place] Start: 12-05-1982 HIV screen HIV screen [facility] Work Phone: Start: 12-05-1982 HIV screening HIV screen [facility] Start: 1979 Depression Screen Depression Screen [facility] Start: 1979 Depression Screening Depression Scre [facility] Start: 12-05-1977 Lipid panel Lipid screen [facility] Start: 12-05-1977 Lipid screen Lipid screen [facility] Work Phone: Start: 12-05-1968 Hepatitis A Vaccines (1 of 2 - Risk 2-dose series) Hepatitis A Vaccines (1 of 2 - Risk 2-dose series) [facility] Start: 1967 Creatinine measurement Creatinine mo nitoring [facility] Start: 1967 Creatinine monitoring Creatinine mon itoring [facility] Work Phone: Start: 1967 HEPATITIS B (1 of 3 - 3-dose series) HEPATITIS B (1 of 3 - 3-dose series) [facility] Start: 1967 Hepatitis B Vaccine (1 of 3 - 3-dose series) Hepatitis B Vaccine (1 of 3 - 3-dose series) [facility] Start: 1967 Hepatitis B Vaccines (1 of 3 - 3-dose series) Hepatitis B Vaccines (1 of 3 - 3-dose series) [facility] Start: 1967 Hepatitis C screening Hepatitis C sc reen [facility] Start: 1967 HIV screening HIV Screening [facility] Start: 1967 Potassium monitoring Potassium monit oring [facility] Start: 1967 Screening for malign ant neoplasm of colon [facility] Albumin/Globulin [Ma ss Ratio] in Serum or Plasma by Electrophoresis [facility] Work Phone: Aldosterone [Mass/vo lume] in Serum or Plasma [facility] Work Phone: Bacteria identified in Urine by Culture BACTERIAL CULTURE, URINE Microbiology Routine Lower abdominal pain 03/07/2025 8:16 AM EDT [facility] Work Phone: Bacteria identified in Urine by Culture BACTERIAL CULTURE, URINE Microbiology Routine Dysuria 04/10/2025 10:27 AM EDT [facility] Work Phone: BACTERIAL VAGINOSIS NAAT BACTERI AL VAGINOSIS NAAT Lab Routine Vaginal discharge 02/08/2025 4:42 PM EDT [facility] Blood glucose - POCT Blood gluco se - POCT Point of Care Testing STAT As Needed until discontinued starting 11/18/2021 [employer] Work Phone: Comment on above: As Needed until disc ontinued starting 11/18/2021 End: 10-13-2019 Blood glucose - POCT Blood glucose - POCT Point of Care Testing STAT One Time for 1 Occurrences starting 10/13/2019 until 10/13/2019 [employer] Work Phone: Comment on above: One Time for 1 Occur rences starting 10/13/2019 until 10/13/2019 JOSEE/TRICHOMONAS NAAT JOSEE /TRICHOMONAS NAAT Lab Routine Vaginal discharge 02/08/2025 4:42 PM EDT [facility] Complement C3 [Mass/volume] in Serum or Plasma [facility] Work Phone: Complement C4 [Mass/volume] in Serum or Plasma [facility] Work Phone: End: 10-13-2019 Creatinine [Mass/volume] in Serum or Plasma Creatinine, serum Lab STAT One Time for 1 Occurrences starting 10/13/2019 until 10/13/2019 [facility] Work Phone: Comment on above: One Time for 1 Occur rences starting 10/13/2019 until 10/13/2019 End: 02-24-2026 CT Abdomen and Pelvis W contrast IV CT ABD/PEL W IVCON Radiology STAT Right lower quadrant abdominal pain 1 Occurrences starting 01/25/2025 until 02/24/2026 [facility] Work Phone: Comment on above: 1 Occurrences starti ng 01/25/2025 until 02/24/2026 End: 06-08-2025 DBT Breast - bilateral screening ADALBERTO SCREENING W CHUCK Radiology Routine Encounter for screening mammogram for breast cancer 1 Occurrences starting 05/09/2024 until 06/08/2025 [facility] Work Phone: Comment on above: 1 Occurrences starti ng 05/09/2024 until 06/08/2025 End: 10-05-2025 DBT Breast - bilateral screening ADALBERTO SCREENING W CHUCK Radiology Routine Encounter for gynecological examination (general) (routine) without abnormal findings Encounter for screening mammogram for breast cancer 1 Occurrences starting 09/05/2024 until 10/05/2025 [facility] Work Phone: Comment on above: 1 Occurrences starti ng 09/05/2024 until 10/05/2025 DBT Breast - bilater al screening ADALBERTO SCREENING W CHUCK Radiology Routine Encounter for screening mammogram for breast cancer 10/20/2024 7:25 AM EST [facility] Work Phone: EKG 12 Lead EKG 12 Lead ECG Routine 11/14/2021 2:54 PM EST [facility] Work Phone: Electrophoresis: albumin [facility] Work Phone: Electrophoresis: [id number] [facility] Work Phone: Electrophoresis: [id number] [facility] Work Phone: Electrophoresis: jaja ma globulin [facility] Work Phone: End: 01-22-2026 EMG(NEURO/NI) EMG(NEURO/NI) EMG Routine Paresthesia of both feet 1 Occurrences starting 01/22/2025 until 01/22/2026 [facility] Comment on above: 1 Occurrences starti ng 01/22/2025 until 01/22/2026 Endometrial bx w/wo endocervix bx w/o dilat spx ENDOMETRIAL BIOPSY Procedures Routine Thickened endometrium Ordered: 02/08/2025 [facility] Work Phone: Comment on above: Ordered: 02/08/2025 Globulin measurement [facility] Work Phone: Incentive spirometry Incentive s pirometry Respiratory Care Routine Q1H PRN until discontinued starting 10/13/2019 [facility] Work Phone: Comment on above: Q1H PRN until discon tinued starting 10/13/2019 Initiate Oxygen Ther apy Protocol Initiate Oxygen Therapy Protocol Respiratory Care Routine Daily until discontinued starting 10/13/2019 [employer] Work Phone: Comment on above: Daily until disconti nued starting 10/13/2019 End: 11-18-2021 INITIATE PACU OXYGEN THERAPY PROTOCOL Initiate PACU Oxygen Therapy Protocol Respiratory Care Routine Continuous until discontinued starting 11/18/2021 [employer] Work Phone: Comment on above: Continuous until dis continued starting 11/18/2021 End: 11-18-2021 Intermittent pulse oximetry Pulse Oximetry Spot Check Respiratory Care Routine One Time for 1 Occurrences starting 11/18/2021 until 11/18/2021 [employer] Work Phone: Comment on above: One Time for 1 Occur rences starting 11/18/2021 until 11/18/2021 End: 09-12-2023 ADALBERTO SCREENING ADALBERTO SCREENING Radiology Routine Encounter for screening mammogram for breast cancer 1 Occurrences starting 08/13/2022 until 09/12/2023 [facility] Work Phone: Comment on above: 1 Occurrences starti ng 08/13/2022 until 09/12/2023 End: 08-19-2024 ADALBERTO SCREENING ADALBERTO SCREENING Radiology Routine Encounter for screening mammogram for breast cancer 1 Occurrences starting 07/21/2023 until 08/19/2024 [facility] Work Phone: Comment on above: 1 Occurrences starti ng 07/21/2023 until 08/19/2024 End: 06-08-2025 MG Breast Screening ADALBERTO SCREENING Radiology Routine Encounter for screening mammogram for breast cancer 1 Occurrences starting 05/09/2024 until 06/08/2025 [facility] Comment on above: 1 Occurrences starti ng 05/09/2024 until 06/08/2025 Nasal Cannula Oxygen Nasal Cannu la Oxygen Respiratory Care Routine As Needed until discontinued starting 11/18/2021 [employer] Work Phone: Comment on above: As Needed until disc ontinued starting 11/18/2021 Nasal Cannula Oxygen Nasal Cannu la Oxygen Respiratory Care Routine As Needed until discontinued starting 11/18/2021 [employer] Work Phone: Comment on above: As Needed until disc ontinued starting 11/18/2021 Nonrebreather mask oxygen Nonreb reather mask oxygen Respiratory Care Routine As Needed until discontinued starting 11/18/2021 [facility] Work Phone: Comment on above: As Needed until disc ontinued starting 11/18/2021 Nonrebreather mask oxygen Nonreb reather mask oxygen Respiratory Care Routine As Needed until discontinued starting 11/18/2021 [facility] Work Phone: Comment on above: As Needed until disc ontinued starting 11/18/2021 Oxygen therapy [[facility] Data Set] Initiate Oxygen Therapy Protocol Respiratory Care Routine As Needed until discontinued starting 11/18/2021 [facility] Work Phone: Comment on above: As Needed until disc ontinued starting 11/18/2021 PAP TEST PAP TEST Lab Gianfranco dominguez Screening for HPV (human papillomavirus) Screening for cervical cancer 02/08/2025 3:18 PM EDT [facility] Phase I & II - meter ed glucose Phase I & II - metered glucose Point of Care Testing Routine As Needed until discontinued starting 10/13/2019 [facility] Work Phone: Comment on above: As Needed until disc ontinued starting 10/13/2019 End: 10-13-2019 Potassium w/ Reflex to Magnesium Potassium w/ Reflex to Magnesium Lab Routine One Time for 1 Occurrences starting 10/13/2019 until 10/13/2019 [facility] Work Phone: Comment on above: One Time for 1 Occur rences starting 10/13/2019 until 10/13/2019 Protein electrophore sis panel - Serum or Plasma [facility] Work Phone: End: 10-13-2019 Protime-INR Protime-INR Lab STAT One Time for 1 Occurrences starting 10/13/2019 until 10/13/2019 [facility] Work Phone: Comment on above: One Time for 1 Occur rences starting 10/13/2019 until 10/13/2019 End: 10-13-2019 Pulse Oximetry Spot Check Pulse Oximetry Spot Check Respiratory Care Routine One Time for 1 Occurrences starting 10/13/2019 until 10/13/2019 [facility] Work Phone: Comment on above: One Time for 1 Occur rences starting 10/13/2019 until 10/13/2019 Renin [Enzymatic activity/volume] in Plasma [facility] Work Phone: Serum protein electrophoresis [facility] Work Phone: Spirometry panel Incentive iain metry Respiratory Care Routine Q1H PRN until discontinued starting 11/18/2021 [facility] Work Phone: Comment on above: Q1H PRN until discon tinued starting 11/18/2021 Thyrotropin [Units/volume] in Serum or Plasma TSH BLD Lab Routine Acquired hypothyroidism 12/24/2023 7:08 AM EDT [facility] Work Phone: Total globulins measurement [facility] Work Phone: End: 02-25-2026 US Pelvis limited US FEMALE PELVIS TRANSABD LTD Radiology Routine Uterine cyst Abnormal CT scan 1 Occurrences starting 01/26/2025 until 02/25/2026 [facility] Work Phone: Comment on above: 1 Occurrences starti ng 01/26/2025 until 02/25/2026 End: 02-25-2026 US Pelvis transvaginal US FEMALE PELVIS TRANSVAG Radiology Routine Uterine cyst Abnormal CT scan 1 Occurrences starting 01/26/2025 until 02/25/2026 [facility] Comment on above: 1 Occurrences starti ng 01/26/2025 until 02/25/2026 End: 11-14-2021 Vitamin B1, Whole Blood [facility] Work Phone: Comment on above: 1 Occurrences starti ng 11/14/2021 until 11/14/2021 End: 11-14-2021 Vitamin D 25 Hydroxy [facility] Work Phone: Comment on above: 1 Occurrences starti ng 11/14/2021 until 11/14/2021 End: 02-21-2026 XR Cervical spine AP and Lateral and oblique XR CERV OTHER 4V AP/LAT/OBL Radiology Routine Paresthesia of both feet 1 Occurrences starting 01/22/2025 until 02/21/2026 [facility] Comment on above: 1 Occurrences starti ng 01/22/2025 until 02/21/2026 XR Cervical spine AP and Lateral and oblique XR CERV OTHER 4V AP/LAT/OBL Radiology Routine Paresthesia of both feet 01/22/2025 4:23 PM EDT [facility] End: 02-21-2026 XR Lumbar spine 3 Views XR LUMBAR GENERAL 3V AP/LAT/L5-S1 Radiology Routine Paresthesia of both feet 1 Occurrences starting 01/22/2025 until 02/21/2026 [facility] Comment on above: 1 Occurrences starti ng 01/22/2025 until 02/21/2026 XR Lumbar spine 3 Views XR LUMBA R GENERAL 3V AP/LAT/L5-S1 Radiology Routine Paresthesia of both feet 01/22/2025 4:23 PM EDT [facility] End: 11-14-2021 Zinc [facility] Work Phone: Comment on above: 1 Occurrences starti ng 11/14/2021 until 11/14/2021 [facility] Immunizations Immunization Date Immunization Notes Care Provider [facility] 05-11-2025 pneumococcal conjuga te (PCV20) vaccine, 20 valent (PREVNAR 20) Fior Alvarez PENCIL MAKERBarryELECTRONIC CALIBRATION TECHNICIAN Work Phone: [facility] 05-11-2025 pneumococcal Conjuga te, unspecified formulation Fior Alvarez PENCIL MAKER.ELECTRONIC CALIBRATION TECHNICIAN Work Phone: [facility] 05-28-2024 influenza virus vacc ine, unspecified formulation Ash Chowdhury MD Work Phone: [facility] 05-09-2024 pneumococcal polysaccharide vaccine, 23 valent Ana Bolaños MD Work Phone: [facility] 08-26-2023 influenza virus vacc ine, unspecified formulation Luz Meeks PA-C Work Phone: [facility] 05-26-2022 influenza virus vacc ine, unspecified formulation Garret POLLOCK Work Phone: [facility] 01-31-2022 Covid-19, Pfizer Gra y Top, Do Not Dilute, (Age 12 Y+), Im, L Marilou Cl[address]ton RD Work Phone: [facility] 06-14-2021 Pfizer SARS-CoV-[address] Work Phone: [facility] 05-17-2021 influenza, injectabl e, quadrivalent, contains preservative Alexander Quinteros Jr., MD Work Phone: [facility] Work Phone: 12-18-2020 COVID-19 vaccine, ag e 12+ yr (PFIZER-BIONTECH - [facility]) Alexander Quinteros Jr., MD Work Phone: [facility] Work Phone: 11-27-2020 COVID-19 vaccine, ag e 12+ yr (PFIZER-BIONTECH - [facility]) Alexander Quinteros Jr., MD Work Phone: [facility] Work Phone: 08-02-2020 zoster vaccine recombinant Alexander Quinteros Jr., MD Work Phone: [facility] Work Phone: 06-01-2020 zoster vaccine recombinant Alexander Quinteros Jr., MD Work Phone: [facility] Work Phone: 05-14-2019 influenza, seasonal, injectable Alexander Quinteros Jr., MD Work Phone: [facility] 06-11-2018 influenza, injectabl e, quadrivalent, contains preservative Alexander Quinteros Jr., MD Work Phone: [facility] 06-16-2017 diphtheria, tetanus toxoids and acellular pertussis vaccine, 5 pertussis antigens Alexander Quinteros Jr., MD Work Phone: [facility] Work Phone: 06-18-2016 influenza, injectabl e, quadrivalent, contains preservative Alexander Quinteros Jr., MD Work Phone: [facility] Work Phone: 06-20-2015 influenza, seasonal, injectable Alexander Quinteros Jr., MD Work Phone: [facility] 06-13-2015 influenza, seasonal, injectable Alexander Quinteros Jr., MD Work Phone: [facility] Work Phone: 07-12-2014 pneumococcal polysaccharide vaccine, 23 valent Alexander Quinteros Jr., MD Work Phone: [facility] 07-14-2012 influenza virus vacc ine, unspecified formulation Alexander Quinteros Jr., MD Work Phone: [facility] 07-14-2010 influenza virus vacc ine, unspecified formulation Alexander Quinteros Jr., MD Work Phone: [facility] Work Phone: 07-20-2008 influenza virus vacc ine, unspecified formulation Alexander Quinteros Jr., MD Work Phone: [facility] Work Phone: 01-18-2007 tetanus and diphther ia toxoids, adsorbed, preservative free, for adult use (2 Lf of tetanus toxoid and 2 Lf of diphtheria toxoid) Alexander Quinteros Jr., MD Work Phone: [facility] 07-14-2006 influenza virus vacc ine, unspecified formulation Alexander Quinteros Jr., MD Work Phone: [facility] Work Phone: 12-12-2002 pneumococcal polysaccharide vaccine, 23 valent Alexander Quinteros Jr., MD Work Phone: [facility] Work Phone: Payers Date Payer Category Payer Self-pay [id number] 2020 Private Health Insurance [id number] 2020 Private Health Insurance [place] [employer] POS [id number] 2020-Present [phone] [address] [place] [address] POS [id number] 2020 Private Health Insurance [id number] 2019 Unknown BCBS BCBS OUT OF STATE xxxxxxxxxxxx 2019-Present [address] [place] [address] xxxxxxxxxxxx [id number] 2016 Unknown [id number] 2016 Unknown ANTHEM 0 [id number] 2015 Private Health Insurance [employer] [id number] Unknown [facility] PACKAGE PLAN [id number] Unknown [id number] .462 Unknown [id number] 2.840.1.802680.3.579.2 .462 Unknown [id number] 2.840.1.286077.3.579.2 .462 Unknown [id number] 2.16840.1.845048.3.579.2 .462 Unknown [id number] 2.16840.1.706118.3.579.2 .462 Unknown [id number] 2.840.1.441753.3.579.2 .462 Unknown [id number] 2.840.1.982336.3.579.2 .462 Unknown [id number] 2.16.840.1.003071.3.579.2 .462 Unknown [id number] 2.16.840.1.863982.3.579.2 .462 Unknown [id number] 2.16.840.1.277637.3.579.2 .462 Unknown [id number] 2.16.840.1.490034.3.579.2 .462 Unknown [id number] 2.16.840.1.499123.3.579.2 .462 Unknown [id number] 2.16.840.1.232598.3.579.2 .462 Unknown [id number] 2.16.840.1.129848.3.579.2 .462 Unknown [id number] 2.16.840.1.827552.3.579.2 .462 Unknown [id number] 2.16.840.1.418538.3.579.2 .462 Unknown [id number] 2.16.840.1.648747.3.579.2 .462 Unknown [id number] 2.16.840.1.424227.3.579.2 .462 Unknown [id number] 2.16.840.1.751871.3.579.2 .462 Unknown [id number] 2.16.840.1.908420.3.579.2 .462 Unknown [id number] 2.16.840.1.010998.3.579.2 .462 Unknown [id number] 2.16.840.1.469351.3.579.2 .462 Unknown [id number] 2.16.840.1.512462.3.579.2 .462 Unknown [id number] 2.16.840.1.413126.3.579.2 .462 Social History Date Type Detail Facility Start: 10-06-2019 End: 05-09-2024 Tobacco smoking status CAIS Ex-smoker [facility] Work Phone: Start: 10-06-2019 End: 05-09-2024 Tobacco use and exposure Smokeless tobacco non-user [employer] Work Phone: Start: 09-15-2021 End: 05-07-2025 Alcohol intake Current drinker of alcohol (finding) [employer] Work Phone: Start: 10-06-2019 History SDOH Alcohol Comment OCCASSIONAL [employer] Work Phone: Start: 10-06-2019 Tobacco Comment QUIT 16 YEARS AGO [employer] Work Phone: Start: 1965 Sex Assigned At Not on file S [facility] Work Phone: Start: 09-13-1981 End: 06-14-2003 History of tobacco use Cigarette Smoker [employer] Phone: Start: 10-06-2019 End: 03-08-2023 Cigarettes smoked current (pack per day) - Reported 0.5 [facility] [employer] Start: 11-14-2021 Tobacco Comment QUIT 19 YEARS AGO [employer] [employer] Work Phone: Start: 10-18-2021 End: 04-05-2023 Exposure to SARS-CoV-2 (event) Not sure [facility] Start: 06-15-2013 End: 06-15-2013 Tobacco smoking status NHIS Unknown if ever smoked [facility] Start: 1965 Sex Assigned At Female [facility] Start: 09-13-1981 End: 06-14-2003 History of tobacco use Current smoker [facility] Start: 09-02-2021 End: 08-21-2022 History SDOH Alcohol Frequency 3 [facility] Start: 09-02-2021 End: 09-02-2022 History SDOH Alcohol Std Drinks 1 [facility] Start: 09-02-2021 End: 09-02-2022 History SDOH Alcohol Binge 2 [facility] Start: 03-10-2007 History SDOH Alcohol Comment Occaisionally [facility] Start: 09-02-2021 End: 08-21-2022 History SDOH Financial 5 [facility] Start: 08-19-2019 Education 17 [facility] Start: 08-21-2022 History SDOH Physica l Activity DPW 4 [facility] Start: 09-02-2022 History SDOH Alcohol Std Drinks 0 [facility] Start: 09-02-2022 End: 03-08-2023 Humiliation, Afraid, Rape, and Kick questionnaire [HARK] [facility] Within the last year , have you been afraid of your partner or ex-partner? No [facility] How often to you hav e a drink containing alcohol? Never [facility] Start: 08-14-2012 How many standard drinks containing alcohol do you have on a typical day? Patient does not drink [facility] Are you now , , , , never or living with a partner? [facility] How often to you hav e a drink containing alcohol? Monthly or less [facility] How many standard drinks containing alcohol do you have on a typical day? 1 or 2 [facility] Do you feel stress - tense, restless, nervous, or anxious, or unable to sleep at night because your mind is troubled all the time - these days [OSQ] Only a little [facility] (I/We) worried clare er (my/our) food would run out before (I/we) got money to buy more. Never true [facility] Start: 09-05-2024 Alcohol Comment social [facility] Start: 03-30-2025 Alcohol Comment social - 1 dri nk a month [facility] NEGATED: Highlighted rowStart: NINF History of tobacco use Passive smoker [facility] Medical Equipment Procedure Code Equipment Code Equipment Origin al Text Equipment Identifier Dates [employer] [id number] Start: 09-02-2022 Functional Status Date Assessment Result Facility 11-03-2024 Total score [AUDIT-C] 1 11/03/19 8:20 AM EST User, [email or web address] [facility] 11-03-2024 Within the last year , have you been humiliated or emotionally abused in other ways by your partner or ex-partner? No 11/03/2024 8:20 AM EST User, Mychart No [facility] 11-03-2024 Within the last year , have you been afraid of your partner or ex-partner? No 11/03/2024 8:20 AM EST User, Mychart No [facility] 11-03-2024 Within the last year , have you been raped or forced to have any kind of sexual activity by your partner or ex-partner? No 11/03/2024 8:20 AM EST UserSaminat No [facility] 11-03-2024 Within the last year , have you been kicked, hit, slapped, or otherwise physically hurt by your partner or ex-partner? No 11/03/2024 8:20 AM EST User, [email or web address] No [facility] 11-03-2024 How often to you hav e a drink containing alcohol? Monthly or less 11/03/2024 8:20 AM EST User, [email or web address] Monthly or less [facility] 11-03-[address] inks containing alcohol do you have on a typical day? 1 or 2 11/03/2024 8:20 AM EST User, [email or web address] 1 or 2 [facility] 11-03-2024 How often do you hav e 6 or more drinks on 1 occasion? Never 11/03/2024 8:20 AM EST User, [email or web address] Never [facility] 01-18-2015 Are you deaf, or do you have serious difficulty hearing No 01/18/2015 8:02 AM Radha Anderson LPN No [facility] 01-18-2015 Are you blind, or do you have serious difficulty seeing, even when wearing glasses No 01/18/2015 8:02 AM Radha Anderson LPN No [facility] 01-18-2015 Do you have serious difficulty walking or climbing stairs No 01/18/2015 8:02 AM Radha Anderson LPN No [facility] 01-18-2015 Do you have difficul ty dressing or bathing No 01/18/2015 8:02 AM Radha Anderson LPN No [facility] 01-18-2015 Because of a physica l, mental, or emotional condition, do you have difficulty doing errands alone such as visiting a physician's office or shopping No 01/18/2015 8:02 AM Radha Anderson LPN No [facility] Mental Status Date Assessment Result Facility 01-18-2015 Because of a physica l, mental, or emotional condition, do you have serious difficulty concentrating, remembering, or making decisions No 01/18/2015 8:02 AM Radha Anderson LPN No [facility] Clinical Notes 07-22-2015 to 06-25-2025 Patient Fior Woods APRN.[facility] - 05/11/2025 7:54 AM Ash Nava MD - 05/07/2025 3:51 PM EDTPatient InstructionsFior Alvarez APRN.[facility] - 05/02/2025 3:40 PM EDTPatient Instructions Note Date & Type Note Facility 06-25-2025 Note HNO ID: [id number] Author: ANA BOLAÑOS MD Service: ? Author Type: Physician Type: Progress Notes Filed: 06/25/2025 18:28 Note Text: Reason for Visit Follow up FREDA Valencia is a 59-year-old female with a history of L5-S1 disc degeneration, Sjogren's syndrome, scleroderma, and sleep apnea, presenting for preoperative clearance for an upcoming L5-S1 discectomy and fusion. Santos reports that her L5-S1 disc is virtually bone on bone and has been causing significant pain, limiting her ability to walk comfortably. She can walk for about 30 minutes before experiencing pain due to neuropathy and back issues, but she usually perseveres through it with the help of gabapentin, which alleviates neuropathic pain in her feet. She denies chest pain, dyspnea, dizziness, or palpitations. She has no history of DVT or increased risk of bleeding. She is able to exerciseand perform daily activities without cardiac issues. Santos has a history of sleep apnea, which has resolved with weight loss following a sleeve gastrectomy. She denies any malabsorption issues and takes her gastric bypass medications regularly. She also has a history of Sjogren's syndrome, for which she is taking medication, and scleroderma, for which she is taking sulfasalazine. She last saw her cryolite recovery operator 3-4 months ago and has a follow-up appointment in July. Her cryolite recovery operator reports that her scleroderma is controlled, and her SSA and SSB levels are stable. Santos has a history of multiple surgeries, including a recent DANDC a couple of months ago, finger surgery in November, foot surgeries, knee surgery, thyroidectomy, two neck surgeries, and surgeries on her thumb and finger. She reports doing well with anesthesia in the past. SOCIAL HISTORY[1] Past medical history, appointments, medications, allergies reviewed. Pertinent Lab/Diagnostic Studies are reviewed and discussed today Current Outpatient Medications: pravastatin (PRAVACHOL) 80 mg tablet estradiol (ESTRACE) 0.01 % (0.1 mg/gram) vaginal cream potassium chloride (K-TAB) 10 mEq tablet hydroCHLOROthiazide 12.5 mg capsule gabapentin (NEURONTIN) 400 mg capsule ARIPiprazole (ABILIFY) 2 mg tablet gabapentin (NEURONTIN) 100 mg capsule eletriptan (RELPAX) 20 mg tablet tirzepatide (MOUNJARO) 10 mg/0.5 mL pen injector omeprazole (PRILOSEC) 20 mg capsule levothyroxine (SYNTHROID) 88 mcg tablet cyanocobalamin, vitamin B-12, (VITAMIN B-12 ORAL) MEDICATION, NON-DATABASE metoprolol tartrate, short acting, (LOPRESSOR) 25 mg tablet lisinopril (ZESTRIL) 20 mg tablet leflunomide (ARAVA) 10 mg tablet cyclobenzaprine (FLEXERIL) 10 mg tablet Cholecalciferol, Vitamin D3, (VITAMIN D) 1,000 unit tab sulfaSALAzine (AZULFIDINE) 500 mg tablet cevimeline (EVOXAC) 30 mg ORAL capsule citalopram hydrobromide(CELEXA 20 MG TAB) sodium fluoride/pot nitrate(PREVIDENT 5000 SENSITIVE 1.1 %-5 % DENTAL PASTE) potassium chloride 20 mEq TbER Health Maintenance Dilated Retinal Exam Depression Screening Anxiety Screening Influenza Vaccine(1) Covid-19 Vaccine( season) Mammogram Screening@ [facility] Systems Cardiovascular: (-) chest pain, (-) palpitations Respiratory: (-) shortness of breath Gastrointestinal: (-) malabsorption issues Musculoskeletal: (+) back pain Neurological: (+) neuropathic foot pain, (-) dizziness Physical Exam BP 142/84 Pulse 85 Resp 16 Wt 79.1 kg (174 lb 6.4 oz) LMP 02/13/2019 (Approximate) SpO2 98% BMI 28.15 kg/m? GENERAL: NAD, alert and oriented. SKIN: Unremarkable, no rash or skin lesions. HEAD: Normocephalic. EYES: PERRLA, EOMI, conjunctiva clear. EARS: External ears normal, canals clear, TM's normal. LUNGS: Clear to auscultation bilaterally, no wheezes/rhonchi/rales. HEART: Regular rate and rhythm, no murmurs. No ectopy. EXTREMITIES: Normal, no deformities, no skin discoloration, no edema. NEURO: Awake, alert and oriented x3, cranial nerves II-XII grossly intact, normal gait, no involuntary motions. Assessment and Plan 1. Pre-operative clearance (Z01.818) Patient is scheduled for L5-S1 discectomy and fusion due to severe degenerative disc disease. No current chest pain, dyspnea, palpitations, or dizziness. No history of DVT or increased bleeding risk. Patient has undergone multiple prior surgeries without anesthesia complications. - No additional pre-op cardiac testing indicated. - Stop tirzepatide 1 week prior to surgery. 2. Displacement of lumbar intervertebral disc without myelopathy (M51.26) Severe L5-S1 disc degeneration with [id number] changes; patient scheduled for minimally invasive discectomy and fusion. - Proceed with planned surgery. 3. Sjogren's syndrome, with unspecified organ involvement (HCC) (M35.00) Condition is stable and controlled per rheumatology; no pulmonary involvement. - Continue current management. - Follow-up with rheumatology in July. 4. Essential (more content not included)... [facility] 05-11-2025 Instructions Fior Alvarez APRN.CNP - 05/11/2025 7:58 AM EDT - Continue taking hydrochlorothiazide daily for blood pressure control. - Keep taking your potassium supplement twice a day. - Have your potassium level checked with lab tests in four weeks. - Schedule a follow-up appointment in three months with Dr. Bolaños to review your labs and overall progress. - You received a pneumonia vaccine today to update your immunizations before flu season. - Wear sunscreen when you re outdoors and monitor your skin for any new spots or changes; contact our office or dermatology if you notice anything concerning. documented in this encounter [facility] 05-11-2025 Note HNO ID: [id number] Author: OLDER, FIOR, PENCIL MAKER.ELECTRONIC CALIBRATION TECHNICIAN Service: ? Author Type: Nurse Practitioner Type: Progress Notes Filed: 05/11/2025 08:21 Note Text: CC: Patient presents with: Recheck: Follow up BP, low potassium HPI Santos Allan is a 59 year old female who presents today for follow up. Recording using [employer] software for draft documentation of the visit was discussed with the patient/authorized customer relations representative; all questions welcomed and answered. Patient/authorized customer relations representative agreed to proceed Hypertension: - Blood pressure readings at home are consistently in the 110s/70s. - Originally on HCTZ but was switched to Spironolactone due to recurrent hypokalemia. Even with increase to 50mg, had increased edema to RLE and BP elevated so switch back to HCTZ. Recent potassium stable. Edema: - Significant improvement in edema since Santos started hydrochlorothiazide. - Currently taking potassium supplements BID. - Denies chest pain, dyspnea, headaches, or palpitations. REVIEW OF SYSTEMS See HPI PAST MEDICAL HISTORY Diagnosis Date Acid reflux [...] W/COLLJ SPEC WHEN PFRMD 03/18/2016 Colonoscopy (MAC) DANDC, DIAG AND/OR THERAPEUTIC 04/20/2025 hysteroscopy, DANDC for thickened EM ESOPHAGOGASTRODUODENOSCOPY TRANSORAL DIAGNOSTIC 04/05/2013 EGD ESOPHAGOGASTRODUODENOSCOPY TRANSORAL DIAGNOSTIC 01/02/2015 EGD LAP ADJUSTABLE GASTRIC BAND 08/13/2008 PAST SURGICAL HISTORY OF left foot surgery PAST SURGICAL HISTORY OF 02/11/2013 left carpal tunnel PAST SURGICAL HISTORY OF 02/11/2013 radial styloidectomy PAST SURGICAL HISTORY OF 09/13/2013 c5,c6 refusion PT ED BARIATRIC AND METABOLIC N/A 08/2022 THYROIDECTOMY TOTAL/COMPLETE partial right - non malignant TONSILLECTOMY PRIMARY/SECONDARY Tonsillectomy ALLERGIES Hydrocodone-Acetaminophen, Imitrex [Sumatriptan], and Prednisone MEDICATIONS estradiol (ESTRACE) 0.01 % (0.1 mg/gram) vaginal cream apply 1 gram of cream to lower vagina at bedtime twice weekly potassium chloride (K-TAB) 10 mEq tablet Take 1 tablet by mouth two times a day. hydroCHLOROthiazide 12.5 mg capsule Take 1 capsule by mouth once daily. gabapentin (NEURONTIN) 400 mg capsule Take 1 capsule by mouth three times a day for 180 days. potassium chloride 20 mEq TbER Take 2 tablets by mouth two times a day. ARIPiprazole (ABILIFY) 2 mg tablet Take 2 tablets by mouth once daily. gabapentin (NEURONTIN) 100 mg capsule Take 1 capsule by mouth three times a day for 180 days. eletriptan (RELPAX) 20 mg tablet Take 1 at start of headache, may repeat in 2 hours if necessary (total of 3 tablets) tirzepatide (MOUNJARO) 10 mg/0.5 mL pen injector Inject 10 mg subcutaneously one time a week. omeprazole (PRILOSEC) 20 mg capsule Take 1 capsule by mouth once daily. levothyroxine (SYNTHROID) 88 mcg tablet Take 1/2 tablet 3 days a week and whole tablet rest of the week. pravastatin (PRAVACHOL) 80 mg tablet Take 1 tablet by mouth once daily. cyanocobalamin, vitamin B-12, (VITAMIN B-12 ORAL) Take 5,000 mg by mouth every other day. MEDICATION, NON-DATABASE Alphalipoic metoprolol tartrate, short acting, (LOPRESSOR) 25 mg tablet Take 0.5 tablets by mouth once daily. lisinopril (ZESTRIL) 20 mg tablet Take 1 tablet by mouth twice daily. leflunomide (ARAVA) 10 mg tablet Take 2 tablets by mouth once daily. cyclobenzaprine (FLEXERIL) 10 mg tablet Take 1 tablet by mouth three times daily. Cholecalciferol, Vitamin D3, (VITAMIN D) 1,000 [...] Mother Cancer Mother breast, uterus/bone Lipids Mother Uterine Cancer Moth (more content not included)... [facility] 05-11-2025 History of Present illness Narrative CC: Patient presents with: Recheck: Follow up BP, low potassium HPI Santos Allan is a 59 year old female who presents today for follow up. Recording using [employer] software for draft documentation of the visit was discussed with the patient/authorized customer relations representative; all questions welcomed and answered. Patient/authorized customer relations representative agreed to proceed Hypertension: - Blood pressure readings at home are consistently in the 110s/70s. - Originally on HCTZ but was switched to Spironolactone due to recurrent hypokalemia. Even with increase to 50mg, had increased edema to RLE and BP elevated so switch back to HCTZ. Recent potassium stable. Edema: - Significant improvement in edema since Santos started hydrochlorothiazide. - Currently taking potassium supplements BID. - Denies chest pain, dyspnea, headaches, or palpitations. REVIEW OF SYSTEMS See HPI PAST MEDICAL HISTORY Diagnosis Date Acid reflux [...] W/COLLJ SPEC WHEN PFRMD 03/18/2016 Colonoscopy (MAC) D&C, DIAG AND/OR THERAPEUTIC 04/20/2025 hysteroscopy, D&C for thickened EM ESOPHAGOGASTRODUODENOSCOPY TRANSORAL DIAGNOSTIC 04/05/2013 EGD ESOPHAGOGASTRODUODENOSCOPY TRANSORAL [...] malignant TONSILLECTOMY PRIMARY/SECONDARY <AGE 12 Tonsillectomy ALLERGIES Hydrocodone-Acetaminophen, Imitrex [Sumatriptan], and Prednisone MEDICATIONS estradiol (ESTRACE) 0.01 % (0.1 mg/gram) vaginal cream apply 1 gram of cream to lower vagina at bedtime twice weekly potassium chloride (K-TAB) 10 mEq tablet Take 1 tablet by mouth two times a day. hydroCHLOROthiazide 12.5 mg capsule Take 1 capsule by mouth once daily. gabapentin (NEURONTIN) 400 mg capsule Take 1 capsule by mouth three times a day for 180 days. potassium chloride 20 mEq TbER Take 2 tablets by mouth two times a day. ARIPiprazole (ABILIFY) 2 mg tablet Take 2 tablets by mouth once daily. gabapentin (NEURONTIN) 100 mg capsule Take 1 capsule by mouth three times a day for 180 days. eletriptan (RELPAX) 20 mg tablet Take 1 at start of headache, may repeat in 2 hours if necessary (total of 3 tablets) tirzepatide (MOUNJARO) 10 mg/0.5 mL pen injector Inject 10 mg subcutaneously one time a week. omeprazole (PRILOSEC) 20 mg capsule Take 1 capsule by mouth once daily. levothyroxine (SYNTHROID) 88 mcg tablet Take 1/2 tablet 3 days a week and whole tablet rest of the week. pravastatin (PRAVACHOL) 80 mg tablet Take 1 tablet by mouth once daily. cyanocobalamin, vitamin B-12, (VITAMIN B-12 ORAL) Take 5,000 mg by mouth every other day. MEDICATION, NON-DATABASE Alphalipoic metoprolol tartrate, short acting, (LOPRESSOR) 25 mg tablet Take 0.5 tablets by mouth once daily. lisinopril (ZESTRIL) 20 mg tablet Take 1 tablet by mouth twice daily. leflunomide (ARAVA) 10 mg tablet Take 2 tablets by mouth once daily. cyclobenzaprine (FLEXERIL) 10 mg tablet Take 1 tablet by mouth three times daily. Cholecalciferol, Vitamin D3, (VITAMIN D) 1,000 [...] Mother Cancer Mother breast, uterus/bone Lipids Mother Uterine Cancer Mother Diabetes Father Hypertension Father Osteoporosis Father Colon Cancer Father Stroke Father Lipids Father Headache Father Hypertension Brother Lipids Brother Headache Brother Diabetes Brother SOCIAL HISTORY[1] PHYSICAL EXAM BP 116/72 Resp 16 Wt 79.8 kg (176 lb) LMP 02/13/2019 (Approximate) BMI 28.41 kg/m General Appearance: well appearing, in no acute distress, alert Lungs: Lungs clear to auscultation. No wheezing, rhonchi, rales. Heart: RRR without murmur, gallop, or rubs. No ectopy BLE: No deformities, edema, skin discoloration, clubbing or cyanosis. Good capillary refill. Health maintenance reviewed with patient: Dilated Retinal Exam due on 11/30/2015 Depression Screening due on 05/09/2025 Anxiety Screening due on 05/09/2025 Pneumococcal Vaccine: 50+(3 of 3 - PCV) due on 05/09/2025 Mammogram Screening due on 10/20/2025 Hepatitis B Vaccine(1 of 3 - 19+ 3-dose series) due on 03/30/2026 Influenza Vaccine(1) due on 05/14/2025 HbA1C due on 07/25/2025 Diabetic Foot Exam due on 11/10/2025 Cervical Cancer Screening due on 02/08/2026 Urine Albumin:Creatinine Ratio due on 03/02/2026 LDL Cholesterol due on 03/02/2026 Annual PCP Team Chronic Disease Visit due on 05/11/2026 DTaP,Tdap,Td Vaccine(3 - Td or Tdap) due on 07/03/2027 Colorectal Cancer Screening due on 04/17/2031 Hepatitis C Screening Completed HIV Screening Completed Shingrix Vaccine Completed DATA REVIEWED: Most recent labs Assessment/Plan 1. Essential hypertension (I10) 2. Extremity edema (R60.0) 3. Hypokalemia (E87.6) - Blood pressure well-controlled on HCTZ; home readings in the 110s/70s. Discontinue HCTZ - Lower extremity edema significantly improved; no tenderness on exam. - Hypokalemia previously noted but recent normal; patient taking potassium supplement BID. - Continue HCTZ as prescribed. - Recheck serum potassium in 4 weeks. - Advised use of sunscreen and monitoring for skin changes due to increased photosensitivity and potential skin cancer risk associated with HCTZ. - Follow-up in 3 months. 4. Encounter for immunization (Z23) - Administered pneumonia vaccine today. - Patient to receive flu vaccine on June 06 at work. Prescription instructions reviewed with patient as applicable. Potential red flag symptoms discussed with the patient. Reviewed appropriate action plan to take if red flag symptoms occur. Patient agreeable to treatment plan. Fior Alvarez APRN.CNP [1] Social History Tobacco Use Smoking status: Former Current packs/day: 0.00 Average packs/day: 0.5 packs/day for 20.0 years (10.0 ttl pk-yrs) Types: Cigarettes Start date: 06/14/1983 Quit date: 06/14/2003 Years since quittin.9 Passive exposure: Never Smokeless tobacco: Never Vaping Use Vaping status: Never Used Substance Use Topics Alcohol use: Yes Comment: social - 1 drink a month Drug use: No documented in this encounter [facility] 05-07-2025 Note HNO ID: [id number] Author: ASH CHOWDHURY MD Service: ? Author Type: Physician Type: Progress Notes Filed: 05/07/2025 18:25 Note Text: DATE OF SERVICE: 05/07/2025 PROBLEM: Santos Allan presents for postop visit. SURGERY AND DATE: Hysteroscopy [facility] PATHOLOGY: benign SUBJECTIVE/INTERVAL HISTORY: Santos Allan is doing well. No pain, fevers, bleeding, discharge. She offers no complaints. SENSITIVE EXAM: Sensitive exam not performed. OBJECTIVE: VITALS: BP 120/84 Wt 79.7 kg (175 lb 9.6 oz) LMP 02/13/2019 (Approximate) BMI 28.34 kg/m? GENERAL: NAD, well appearing comfortable ASSESSMENT: post op PLAN: Doing well Reviewed surgery and pathology findings To call with any bleeding Cont vaginal estrogen cream twice weekly at this time Ash Chowdhury DO [facility] 05-07-2025 History of Present illness Narrative DATE OF SERVICE: 05/07/2025 PROBLEM: Santos Allan presents for postop visit. SURGERY & DATE: Hysteroscopy D&C PATHOLOGY: benign SUBJECTIVE/INTERVAL HISTORY: Santos Allan is doing well. No pain, fevers, bleeding, discharge. She offers no complaints. SENSITIVE EXAM: Sensitive exam not performed. OBJECTIVE: VITALS: BP 120/84 Wt 79.7 kg (175 lb 9.6 oz) LMP 02/13/2019 (Approximate) BMI 28.34 kg/m GENERAL: NAD, well appearing comfortable ASSESSMENT: post op PLAN: Doing well Reviewed surgery and pathology findings To call with any bleeding Cont vaginal estrogen cream twice weekly at this time Ash Chowdhury DO documented in this encounter [facility] 05-02-2025 Instructions Fior Alvarez APRN.ELECTRONIC CALIBRATION TECHNICIAN - 05/02/2025 3:49 PM EDT - Restart your hydrochlorothiazide 12.5 mg daily as before. - Begin potassium supplement 10 mEq twice a day starting today. - Keep your spironolactone; do not throw it away, since we may restart it to help hold onto potassium. - Have your potassium level rechecked on Wednesday or Wednesday next week. - Return to the clinic next week for a follow-up to review your potassium results. - Attend your OB appointment on Wednesday to discuss your D&C histology report. - If your right leg swelling does not improve or gets worse, contact us to arrange an ultrasound to check for a blood clot. documented in this encounter [facility] 05-02-2025 Note HNO ID: [id number] Author: FIOR ALVAREZ APRN.BRITANY Service: ? Author Type: Nurse Practitioner Type: Progress Notes Filed: 05/02/2025 16:09 Note Text: CC: Patient presents with: Recheck: Medication follow up HPI Santos Allan is a 59 year old female who presents today for BP follow up. Was switched to spironolactone from HCTZ due to hypokalemia. Recording using [employer] software for draft documentation of the visit was discussed with the patient/authorized customer relations representative; all questions welcomed and answered. Patient/authorized customer relations representative agreed to proceed Edema and HTN: - Persistent pitting edema in the right leg, no improvement with spironolactone 50 mg. - Edema was present prior to recent DANDC surgery. - Denies calf pain or redness. - Denies chest pain, dyspnea, palpitations, infections, headaches, fever, or chills. - BP has been consistently elevated at home as well with the spironolactone but was better controlled with the HCTZ. REVIEW OF SYSTEMS See HPI PAST MEDICAL HISTORY Diagnosis Date Acid reflux [...] W/COLLJ SPEC WHEN PFRMD 03/18/2016 Colonoscopy (MAC) DANDC, DIAG AND/OR THERAPEUTIC 04/20/2025 hysteroscopy, DANDC for thickened EM ESOPHAGOGASTRODUODENOSCOPY TRANSORAL DIAGNOSTIC 04/05/2013 EGD ESOPHAGOGASTRODUODENOSCOPY TRANSORAL DIAGNOSTIC 01/02/2015 EGD LAP ADJUSTABLE GASTRIC BAND 08/13/2008 PAST SURGICAL HISTORY OF left foot surgery PAST SURGICAL HISTORY OF 02/11/2013 left carpal tunnel PAST SURGICAL HISTORY OF 02/11/2013 radial styloidectomy PAST SURGICAL HISTORY OF 09/13/2013 c5,c6 refusion PT ED BARIATRIC AND METABOLIC N/A 08/2022 THYROIDECTOMY TOTAL/COMPLETE partial right - non malignant TONSILLECTOMY PRIMARY/SECONDARY Tonsillectomy ALLERGIES Hydrocodone-Acetaminophen, Imitrex [Sumatriptan], and Prednisone MEDICATIONS potassium chloride (K-TAB) 10 mEq tablet Take 1 tablet by mouth two times a day. hydroCHLOROthiazide 12.5 mg capsule Take 1 capsule by mouth once daily. gabapentin (NEURONTIN) 400 mg capsule Take 1 capsule by mouth three times a day for 180 days. potassium chloride 20 mEq TbER Take 2 tablets by mouth two times a day. ARIPiprazole (ABILIFY) 2 mg tablet Take 2 tablets by mouth once daily. gabapentin (NEURONTIN) 100 mg capsule Take 1 capsule by mouth three times a day for 180 days. estradiol (ESTRACE) 0.01 % (0.1 mg/gram) vaginal cream apply 1 gram of cream to lower vagina qhs daily for 2 weeks, and then twice weekly eletriptan (RELPAX) 20 mg tablet Take 1 at start of headache, may repeat in 2 hours if necessary (total of 3 tablets) tirzepatide (MOUNJARO) 10 mg/0.5 mL pen injector Inject 10 mg subcutaneously one time a week. omeprazole (PRILOSEC) 20 mg capsule Take 1 capsule by mouth once daily. levothyroxine (SYNTHROID) 88 mcg tablet Take 1/2 tablet 3 days a week and whole tablet rest of the week. pravastatin (PRAVACHOL) 80 mg tablet Take 1 tablet by mouth once daily. cyanocobalamin, vitamin B-12, (VITAMIN B-12 ORAL) Take 5,000 mg by mouth every other day. MEDICATION, NON-DATABASE Alphalipoic metoprolol tartrate, short acting, (LOPRESSOR) 25 mg tablet Take 0.5 tablets by mouth once daily. lisinopril (ZESTRIL) 20 mg tablet Take 1 tablet by mouth twice daily. leflunomide (ARAVA) 10 mg tablet Take 2 tablets by mouth once daily. cyclobenzaprine (FLEXERIL) 10 mg tablet Take 1 tablet by mouth three times daily. Cholecalciferol, Vitamin D3, (VITAMIN D) 1,000 [...] Mother Cancer Mother breast, uterus/bone Lipids Mother Uterine Cancer Mother Diabete (more content not included)... [facility] 05-02-2025 History of Present illness Narrative CC: Patient presents with: Recheck: Medication follow up HPI Santos Allan is a 59 year old female who presents today for BP follow up. Was switched to spironolactone from HCTZ due to hypokalemia. Recording using [employer] software for draft documentation of the visit was discussed with the patient/authorized customer relations representative; all questions welcomed and answered. Patient/authorized customer relations representative agreed to proceed Edema and HTN: - Persistent pitting edema in the right leg, no improvement with spironolactone 50 mg. - Edema was present prior to recent D&C surgery. - Denies calf pain or redness. - Denies chest pain, dyspnea, palpitations, infections, headaches, fever, or chills. - BP has been consistently elevated at home as well with the spironolactone but was better controlled with the HCTZ. REVIEW OF SYSTEMS See HPI PAST MEDICAL HISTORY Diagnosis Date Acid reflux [...] W/COLLJ SPEC WHEN PFRMD 03/18/2016 Colonoscopy (MAC) D&C, DIAG AND/OR THERAPEUTIC 04/20/2025 hysteroscopy, D&C for thickened EM ESOPHAGOGASTRODUODENOSCOPY TRANSORAL DIAGNOSTIC 04/05/2013 EGD ESOPHAGOGASTRODUODENOSCOPY TRANSORAL [...] malignant TONSILLECTOMY PRIMARY/SECONDARY <AGE 12 Tonsillectomy ALLERGIES Hydrocodone-Acetaminophen, Imitrex [Sumatriptan], and Prednisone MEDICATIONS potassium chloride (K-TAB) 10 mEq tablet Take 1 tablet by mouth two times a day. hydroCHLOROthiazide 12.5 mg capsule Take 1 capsule by mouth once daily. gabapentin (NEURONTIN) 400 mg capsule Take 1 capsule by mouth three times a day for 180 days. potassium chloride 20 mEq TbER Take 2 tablets by mouth two times a day. ARIPiprazole (ABILIFY) 2 mg tablet Take 2 tablets by mouth once daily. gabapentin (NEURONTIN) 100 mg capsule Take 1 capsule by mouth three times a day for 180 days. estradiol (ESTRACE) 0.01 % (0.1 mg/gram) vaginal cream apply 1 gram of cream to lower vagina qhs daily for 2 weeks, and then twice weekly eletriptan (RELPAX) 20 mg tablet Take 1 at start of headache, may repeat in 2 hours if necessary (total of 3 tablets) tirzepatide (MOUNJARO) 10 mg/0.5 mL pen injector Inject 10 mg subcutaneously one time a week. omeprazole (PRILOSEC) 20 mg capsule Take 1 capsule by mouth once daily. levothyroxine (SYNTHROID) 88 mcg tablet Take 1/2 tablet 3 days a week and whole tablet rest of the week. pravastatin (PRAVACHOL) 80 mg tablet Take 1 tablet by mouth once daily. cyanocobalamin, vitamin B-12, (VITAMIN B-12 ORAL) Take 5,000 mg by mouth every other day. MEDICATION, NON-DATABASE Alphalipoic metoprolol tartrate, short acting, (LOPRESSOR) 25 mg tablet Take 0.5 tablets by mouth once daily. lisinopril (ZESTRIL) 20 mg tablet Take 1 tablet by mouth twice daily. leflunomide (ARAVA) 10 mg tablet Take 2 tablets by mouth once daily. cyclobenzaprine (FLEXERIL) 10 mg tablet Take 1 tablet by mouth three times daily. Cholecalciferol, Vitamin D3, (VITAMIN D) 1,000 [...] Mother Cancer Mother breast, uterus/bone Lipids Mother Uterine Cancer Mother Diabetes Father Hypertension Father Osteoporosis Father Colon Cancer Father Stroke Father Lipids Father Headache Father Hypertension Brother Lipids Brother Headache Brother Diabetes Brother SOCIAL HISTORY[1] PHYSICAL EXAM BP 162/100 Pulse 76 Resp 16 Wt 81.2 kg (179 lb) LMP 02/13/2019 (Approximate) SpO2 100% BMI 28.89 kg/m General Appearance: well appearing, in no acute distress, alert Eyes: conjunctiva pink and moist, no icterus, sclera white, non-injected Lungs: Lungs clear to auscultation. No wheezing, rhonchi, rales. Heart: RRR without murmur, gallop, or rubs. No ectopy RLE: No deformities, skin discoloration, clubbing or cyanosis. Good capillary refill. 1+ pitting edema to RLE Health maintenance reviewed with patient: Dilated Retinal Exam due on 11/30/2015 Depression Screening due on 05/09/2025 Anxiety Screening due on 05/09/2025 Pneumococcal Vaccine: 50+(3 of 3 - PCV) due on 05/09/2025 Mammogram Screening due on 10/20/2025 Hepatitis B Vaccine(1 of 3 - 19+ 3-dose series) due on 03/30/2026 Influenza Vaccine(1) due on 05/14/2025 HbA1C due on 07/25/2025 Diabetic Foot Exam due on 11/10/2025 Cervical Cancer Screening due on 02/08/2026 Urine Albumin:Creatinine Ratio due on 03/02/2026 LDL Cholesterol due on 03/02/2026 Annual PCP Team Chronic Disease Visit due on 04/10/2026 DTaP,Tdap,Td Vaccine(3 - Td or Tdap) due on 07/03/2027 Colorectal Cancer Screening due on 04/17/2031 Hepatitis C Screening Completed HIV Screening Completed Shingrix Vaccine Completed DATA REVIEWED: Most recent labs Labs: (03/30) Potassium: 2.8 mEq/L (low) Potassium: 3.6 mEq/L Assessment/Plan 1. Essential hypertension (I10) 2. Hypokalemia (E87.6) 3. Extremity edema (R60.0) - Persistent hypertension, lower extremity edema, and hypokalemia (improved from previous) despite spironolactone 50 mg daily for over a week. - Discontinue spironolactone. - Restart HCTZ 12.5 mg daily. - Restart potassium chloride 10 mEq PO BID. - Recheck serum potassium Wednesday or Wednesday next week (after 5-6 days of therapy). - Educated patient on importance of potassium supplementation and rationale for medication changes; advised to retain spironolactone in case re-initiation is needed. - Advised to monitor for worsening edema or new symptoms; if swelling worsens or does not improve, will order lower extremity ultrasound to rule out DVT. - Follow-up next week to review potassium results and reassess management. Prescription instructions reviewed with patient as applicable. Potential red flag symptoms discussed with the patient. Reviewed appropriate action plan to take if red flag symptoms occur. Patient agreeable to treatment plan. Fior Alvarez APRN.CNP [1] Social History Tobacco Use Smoking status: Former Current packs/day: 0.00 Average packs/day: 0.5 packs/day for 20.0 years (10.0 ttl pk-yrs) Types: Cigarettes Start date: 06/14/1983 Quit date: 06/14/2003 Years since quittin.8 Passive exposure: Never Smokeless tobacco: Never Vaping Use Vaping status: Never Used Substance Use Topics Alcohol use: Yes Comment: social - 1 drink a month Drug use: No documented in this encounter [facility] 04-13-2025 Telephone encounter Note See my chart encounter Fior Alvarez APRN.CNP [facility] 04-13-2025 Miscellaneous Notes See my chart encounter Fior Alvarez APRN.CNP Patient notified, feeling ok, swelling is still there but patient feels it may be caused by the gabapentin that helps with her neuropathy so willing to put up with the swelling. ----- Message from Fior Alvarez APRN.CNP sent at 04/12/2025 3:47 PM EDT ----- Potassium is in normal range. How is she feeling? How I her swelling? Thank you Fior Alvarez APRN.CNP documented in this encounter [facility] 04-12-2025 Telephone encounter Note Patient notified, if hematuria returns she will call and schedule with Urology. [facility] 04-12-2025 Miscellaneous Notes Patient notified, if hematuria returns she will call and schedule with Urology. Please let patient know that her urine culture did not show a clear infection, but mixed microbiota-possibly contamination with collection. I would recommend f/u with urology with hematuria and not a clear infection as discussed. Consult ordered. F/u sooner if symptoms are not improving/resolving. Angelique Bradford PA-C documented in this encounter [facility] 04-12-2025 Telephone encounter Note Patient notified, feeling ok, swelling is still there but patient feels it may be caused by the gabapentin that helps with her neuropathy so willing to put up with the swelling. [facility] 04-12-2025 Telephone encounter Note ----- Message from Fior Alvarez APRN.ELECTRONIC CALIBRATION TECHNICIAN sent at 04/12/2025 3:47 PM EDT ----- Potassium is in normal range. How is she feeling? How I her swelling? Thank you Fior Alvarez APRN.ELECTRONIC CALIBRATION TECHNICIAN [facility] 04-12-2025 Telephone encounter Note Please let patient know that her urine culture did not show a clear infection, but mixed microbiota-possibly contamination with collection. I would recommend f/u with urology with hematuria and not a clear infection as discussed. Consult ordered. F/u sooner if symptoms are not improving/resolving. Angelique Bradford PA-C [facility] 04-10-2025 Note HNO ID: [id number] Author: ANGELIQUE BRADFORD PA-C Service: ? Author Type: Physician Unix Analyst Type: Progress Notes Filed: 04/10/2025 12:38 Note Text: Recording using [employer] software for draft documentation of the visit was discussed with the patient/authorized customer relations representative; all questions welcomed and answered. Patient/authorized customer relations representative agreed to proceed 04/10/2025 Recurrent UTIs: - Lower abdominal pain described as constant pressure, similar to a full bladder. - Denies recent sexual activity. - Third episode in 5-6 weeks; no UTIs in the past 30 years prior to this. - First episode treated with antibiotics before culture; second episode had a positive culture with symptom resolution post-treatment. - Last treatment with Keflex was well-tolerated. urine culture showed sensitivity. - Denies fever, emesis, or severe back pain. - Concerns about potential interstitial cystitis. Gynecological Concerns: - Recent CT scan revealed fibroids; subsequent vaginal ultrasound confirmed fibroids and thickened endometrium with fluid. - Scheduled for DANDC on April 20 due to inability to tolerate office biopsy. - Recent Pap smear and HPV test were clear. Current Outpatient Medications on File Prior to Visit Medication Sig potassium chloride 20 mEq TbER Take 2 tablets by mouth two times a day. ARIPiprazole (ABILIFY) 2 mg tablet Take 2 tablets by mouth once daily. hydroCHLOROthiazide 12.5 mg capsule Take 1 capsule by mouth once daily. gabapentin (NEURONTIN) 100 mg capsule Take 1 capsule by mouth three times a day for 180 days. estradiol (ESTRACE) 0.01 % (0.1 mg/gram) vaginal cream apply 1 gram of cream to lower vagina qhs daily for 2 weeks, and then twice weekly potassium chloride (K-TAB) 10 mEq tablet Take 1 tablet by mouth two times a day. eletriptan (RELPAX) 20 mg tablet Take 1 at start of headache, may repeat in 2 hours if necessary (total of 3 tablets) tirzepatide (MOUNJARO) 10 mg/0.5 mL pen injector Inject 10 mg subcutaneously one time a week. omeprazole (PRILOSEC) 20 mg capsule Take 1 capsule by mouth once daily. levothyroxine (SYNTHROID) 88 mcg tablet Take 1/2 tablet 3 days a week and whole tablet rest of the week. pravastatin (PRAVACHOL) 80 mg tablet Take 1 tablet by mouth once daily. cyanocobalamin, vitamin B-12, (VITAMIN B-12 ORAL) Take 5,000 mg by mouth every other day. MEDICATION, NON-DATABASE Alphalipoic metoprolol tartrate, short acting, (LOPRESSOR) 25 mg tablet Take 0.5 tablets by mouth once daily. lisinopril (ZESTRIL) 20 mg tablet Take 1 tablet by mouth twice daily. leflunomide (ARAVA) 10 mg tablet Take 2 tablets by mouth once daily. cyclobenzaprine (FLEXERIL) 10 mg tablet Take 1 tablet by mouth three times daily. Cholecalciferol, Vitamin D3, (VITAMIN D) 1,000 unit tab Take 1,000 Units by mouth once daily. sulfaSALAzine (AZULFIDINE) 500 mg tablet Take 1 tablet by mouth twice daily. cevimeline (EVOXAC) 30 mg ORAL capsule Take 60 mg by mouth twice daily. citalopram hydrobromide(CELEXA 20 MG TAB) Take 1.5 tablet daily. sodium fluoride/pot nitrate(PREVIDENT 5000 SENSITIVE 1.1 %-5 % DENTAL PASTE) gabapentin (NEURONTIN) 400 mg capsule Take 1 capsule by mouth three times a day for 180 days. No current facility-administered medications on file prior to visit. PAST MEDICAL HISTORY Diagnosis Date Acid reflux [...] essential hypertension Unspecified vitamin D deficiency 03/10/2007 Allergies: Hydrocodone-Acetami* Itching Imitrex [Sumatripta* Comment: Face went numb Prednisone Mental Status Change Constitutional: (-) fever Gastrointestinal: (-) vomiting Genitourinary: (+) suprapubic pain Musculoskeletal: (-) back pain BP 126/81 Pulse 71 Temp 36.4 ?C (97.5 ?F) Wt 81.6 kg (180 lb) LMP 02/13/2019 (Approximate) SpO2 97% BMI 29.05 kg/m? GENERAL: NAD, alert and oriented. LUNGS: Clear to auscultation bilaterally, no wheezes/rhonchi/rales. HEART: Regular rate and rhythm, ABDOMEN: Tenderness noted in the midline, suprapubic. No tenderness in other areas. no rebound, rigidity or guarding. BACK no CVA ttp PAULA Labs: (Today) Urinalysis: - RBC present - Bacteria present (February) Urine Culture: Positive bacterial growth, resistant to nitrofurantoin, sensitive to cephalexin (January) Urine Dip: Culture not performed due to prior antibiotic administration Kidney function: Normal Pap test: Negative for HPV Imaging: Transvaginal Ultrasound: Uterine fibroids, thicken (more content not included)... [facility] 04-10-2025 History of Present illness Narrative Recording using [employer] software for draft documentation of the visit was discussed with the patient/authorized customer relations representative; all questions welcomed and answered. Patient/authorized customer relations representative agreed to proceed 04/10/2025 Recurrent UTIs: - Lower abdominal pain described as constant pressure, similar to a full bladder. - Denies recent sexual activity. - Third episode in 5-6 weeks; no UTIs in the past 30 years prior to this. - First episode treated with antibiotics before culture; second episode had a positive culture with symptom resolution post-treatment. - Last treatment with Keflex was well-tolerated. urine culture showed sensitivity. - Denies fever, emesis, or severe back pain. - Concerns about potential interstitial cystitis. Gynecological Concerns: - Recent CT scan revealed fibroids; subsequent vaginal ultrasound confirmed fibroids and thickened endometrium with fluid. - Scheduled for D&C on April 20 due to inability to tolerate office biopsy. - Recent Pap smear and HPV test were clear. Current Outpatient Medications on File Prior to Visit Medication Sig potassium chloride 20 mEq TbER Take 2 tablets by mouth two times a day. ARIPiprazole (ABILIFY) 2 mg tablet Take 2 tablets by mouth once daily. hydroCHLOROthiazide 12.5 mg capsule Take 1 capsule by mouth once daily. gabapentin (NEURONTIN) 100 mg capsule Take 1 capsule by mouth three times a day for 180 days. estradiol (ESTRACE) 0.01 % (0.1 mg/gram) vaginal cream apply 1 gram of cream to lower vagina qhs daily for 2 weeks, and then twice weekly potassium chloride (K-TAB) 10 mEq tablet Take 1 tablet by mouth two times a day. eletriptan (RELPAX) 20 mg tablet Take 1 at start of headache, may repeat in 2 hours if necessary (total of 3 tablets) tirzepatide (MOUNJARO) 10 mg/0.5 mL pen injector Inject 10 mg subcutaneously one time a week. omeprazole (PRILOSEC) 20 mg capsule Take 1 capsule by mouth once daily. levothyroxine (SYNTHROID) 88 mcg tablet Take 1/2 tablet 3 days a week and whole tablet rest of the week. pravastatin (PRAVACHOL) 80 mg tablet Take 1 tablet by mouth once daily. cyanocobalamin, vitamin B-12, (VITAMIN B-12 ORAL) Take 5,000 mg by mouth every other day. MEDICATION, NON-DATABASE Alphalipoic metoprolol tartrate, short acting, (LOPRESSOR) 25 mg tablet Take 0.5 tablets by mouth once daily. lisinopril (ZESTRIL) 20 mg tablet Take 1 tablet by mouth twice daily. leflunomide (ARAVA) 10 mg tablet Take 2 tablets by mouth once daily. cyclobenzaprine (FLEXERIL) 10 mg tablet Take 1 tablet by mouth three times daily. Cholecalciferol, Vitamin D3, (VITAMIN D) 1,000 unit tab Take 1,000 Units by mouth once daily. sulfaSALAzine (AZULFIDINE) 500 mg tablet Take 1 tablet by mouth twice daily. cevimeline (EVOXAC) 30 mg ORAL capsule Take 60 mg by mouth twice daily. citalopram hydrobromide(CELEXA 20 MG TAB) Take 1.5 tablet daily. sodium fluoride/pot nitrate(PREVIDENT 5000 SENSITIVE 1.1 %-5 % DENTAL PASTE) gabapentin (NEURONTIN) 400 mg capsule Take 1 capsule by mouth three times a day for 180 days. No current facility-administered medications on file prior to visit. PAST MEDICAL HISTORY Diagnosis Date Acid reflux [...] essential hypertension Unspecified vitamin D deficiency 03/10/2007 Allergies: Hydrocodone-Acetami* Itching Imitrex [Sumatripta* Comment: Face went numb Prednisone Mental Status Change Constitutional: (-) fever Gastrointestinal: (-) vomiting Genitourinary: (+) suprapubic pain Musculoskeletal: (-) back pain BP 126/81 Pulse 71 Temp 36.4 C (97.5 F) Wt 81.6 kg (180 lb) LMP 02/13/2019 (Approximate) SpO2 97% BMI 29.05 kg/m GENERAL: NAD, alert and oriented. LUNGS: Clear to auscultation bilaterally, no wheezes/rhonchi/rales. HEART: Regular rate and rhythm, ABDOMEN: Tenderness noted in the midline, suprapubic. No tenderness in other areas. no rebound, rigidity or guarding. BACK no CVA ttp PAULA Labs: (Today) Urinalysis: - RBC present - Bacteria present (February) Urine Culture: Positive bacterial growth, resistant to nitrofurantoin, sensitive to cephalexin (January) Urine Dip: Culture not performed due to prior antibiotic administration Kidney function: Normal Pap test: Negative for HPV Imaging: Transvaginal Ultrasound: Uterine fibroids, thickened endometrium, and fluid within the endometrial cavity CT Scan: Uterine fibroids detected 1. Dysuria (R30.0) - Recurrent dysuria with positive urine culture one month ago; symptoms improved with Keflex. - Urinalysis today shows hematuria and bacteriuria. - Differential includes recurrent UTI vs. interstitial cystitis; last culture confirmed infection. - Start Keflex 1 capsule BID for 7 days. - Urine culture ordered. - Advised increased oral fluid intake. - Educated on signs of severe infection (fever >100 degreeF, vomiting, severe back pain) and to seek emergency care if these occur. - If urine culture is negative or symptoms persist, recommend referral to urology for further evaluation. patient on lisinopril, avoid bactrim. 2. Uterine leiomyoma, unspecified location (D25.9) - Recent imaging identified uterine fibroids and thickened endometrium with fluid. - D&C scheduled for April 20; post-op follow-up on May 07. - Advised patient to inform [employer] of recent antibiotic treatment. The patient indicates understanding of these issues and agrees with the plan. Reviewed red flags and when to seek care sooner. Angelique Bradford PA-C 04/10/2025 documented in this encounter [facility] 04-10-2025 Instructions Angelique Bradford PA-C - 04/10/2025 10:27 AM EDT - Start Cephalexin (Keflex) as directed: take 1 capsule twice daily for 7 days; prescription sent to [facility]. - A urine sample has been sent for culture; we will contact you with the results. - Drink plenty of water to help flush your bladder. - Complete the full antibiotic course even if your symptoms improve. - Let your gynecology team know you were recently treated with antibiotics before your D&C on April 20. - Watch for fever over 100 degreeF, vomiting, or severe belly or back pain; if any of these occur, go to the emergency room. - Your D&C is scheduled for April 20, with a post-operative follow-up on May 07. - If the urine culture is negative, schedule an appointment with urology for further evaluation. - If the culture is positive, continue with antibiotics based on sensitivity and proceed with your planned gynecology workup. If additioal UTI would consider referral to urology at that time documented in this encounter [facility] 04-09-2025 History and physical note DATE OF SERVICE: April 09, 2025 PROBLEM: fluid in endometrial cavity, pre op DIAGNOSIS: as above PAST SURGICAL HISTORY: PAST SURGICAL HISTORY Procedure Laterality Date ANTERIOR [...] right - non malignant TONSILLECTOMY PRIMARY/SECONDARY Tonsillectomy PAST MEDICAL HISTORY: PAST MEDICAL HISTORY Diagnosis Date Acid reflux [...] essential hypertension Unspecified vitamin D deficiency 03/10/2007 SUBJECTIVE: Pt doing well and offers no complaints SOCIAL HISTORY: Social History Tobacco Use Smoking status: Former Current packs/day: 0.00 Average packs/day: 0.5 packs/day for 20.0 years (10.0 ttl pk-yrs) Types: Cigarettes Start date: 06/14/1983 Quit date: 06/14/2003 Years since quittin.8 Passive exposure: Never Smokeless tobacco: Never Vaping Use Vaping status: Never Used Substance Use Topics Alcohol use: Yes Comment: social - 1 drink a month Drug use: No ALLERGIES Allergen Reactions Hydrocodone-Acetami* Itching Imitrex [Sumatripta* Face went numb Prednisone Mental Status Change Current Outpatient Medications on File Prior to Visit Medication Sig potassium chloride 20 mEq TbER Take 2 tablets by mouth two times a day. ARIPiprazole (ABILIFY) 2 mg tablet Take 2 tablets by mouth once daily. hydroCHLOROthiazide 12.5 mg capsule Take 1 capsule by mouth once daily. gabapentin (NEURONTIN) 100 mg capsule Take 1 capsule by mouth three times a day for 180 days. estradiol (ESTRACE) 0.01 % (0.1 mg/gram) vaginal cream apply 1 gram of cream to lower vagina qhs daily for 2 weeks, and then twice weekly potassium chloride (K-TAB) 10 mEq tablet Take 1 tablet by mouth two times a day. eletriptan (RELPAX) 20 mg tablet Take 1 at start of headache, may repeat in 2 hours if necessary (total of 3 tablets) tirzepatide (MOUNJARO) 10 mg/0.5 mL pen injector Inject 10 mg subcutaneously one time a week. omeprazole (PRILOSEC) 20 mg capsule Take 1 capsule by mouth once daily. levothyroxine (SYNTHROID) 88 mcg tablet Take 1/2 tablet 3 days a week and whole tablet rest of the week. pravastatin (PRAVACHOL) 80 mg tablet Take 1 tablet by mouth once daily. cyanocobalamin, vitamin B-12, (VITAMIN B-12 ORAL) Take 5,000 mg by mouth every other day. MEDICATION, NON-DATABASE Alphalipoic metoprolol tartrate, short acting, (LOPRESSOR) 25 mg tablet Take 0.5 tablets by mouth once daily. lisinopril (ZESTRIL) 20 mg tablet Take 1 tablet by mouth twice daily. leflunomide (ARAVA) 10 mg tablet Take 2 tablets by mouth once daily. cyclobenzaprine (FLEXERIL) 10 mg tablet Take 1 tablet by mouth three times daily. Cholecalciferol, Vitamin D3, (VITAMIN D) 1,000 unit tab Take 1,000 Units by mouth once daily. sulfaSALAzine (AZULFIDINE) 500 mg tablet Take 1 tablet by mouth twice daily. cevimeline (EVOXAC) 30 mg ORAL capsule Take 60 mg by mouth twice daily. citalopram hydrobromide(CELEXA 20 MG TAB) Take 1.5 tablet daily. sodium fluoride/pot nitrate(PREVIDENT 5000 SENSITIVE 1.1 %-5 % DENTAL PASTE) gabapentin (NEURONTIN) 400 mg capsule Take 1 capsule by mouth three times a day for 180 days. No current facility-administered medications on file prior to visit. Pelvic US: * * *Final Report* * * DATE OF EXAM: Feb 06 2025 10:31AM [facility] 1060 - US FEMALE PELVIS TRANSVAG / PROCEDURE REASON: multiple diagnoses * * * * Physician Interpretation * * * * EXAMINATION: TRANSVAGINAL AND LIMITED TRANSABDOMINAL FEMALE PELVIC ULTRASOUND CLINICAL HISTORY: Uterine fibroid. TECHNIQUE: Sonography of the pelvis was performed by transvaginal and transabdominal (limited) techniques. Images were obtained and stored in a permanent archive. MQ: [facility]_2021 COMPARISON: CT abdomen pelvis on 01/26/2025 RESULT: Uterus: -Size: 5.8 x 2.8 x 3.5 cm -Orientation: Anteverted -Endometrial echo complex: Evaluation of the endometrium was adequate. Trace amount of free fluid is seen in the imaged upper canal. The endometrial echo complex measured 0.5 cm. -Cervix: Unremarkable. -Adenomyosis assessment: There are no sonographic findings of adenomyosis. -Fibroids: 2 fibroids visualized measuring 2.6 x 2.4 x 2.6 cm (anterior uterine body) and 1.5 x 1.0 x 1.2 cm (posterior uterine body). Right Ovary: Not seen. Left Ovary: Not seen. Free Fluid: Small free fluid is likely physiologic. OBJECTIVE: VITALS: BP 116/75 Pulse 76 Resp 14 Ht 167.6 cm (5' 6) Wt 81.3 kg (179 lb 3.2 oz) LMP 02/13/2019 (Approximate) SpO2 98% BMI 28.92 kg/m HEENT: Normocephalic, atraumatic, Mucus membranes moist without lesions. SKIN: No lesions. CHEST: Clear to auscultation. No wheezes or rales. Good air exchange. HEART: Regular rate and rhythm No S3 or S4. No gallops or rubs. BACK: Nontender. ABDOMEN: Non distended. LOWER EXTREMITIES: There was no pitting edema, no palpable cords and no skin changes. ASSESSMENT: pre op PLAN: 1) Discussed r/b/a hysteroscopy, D&C, possible polypectomy. The rationale for the proposed surgery was discussed in addition to risks, benefits, and alternatives. General pre- and post-operative care was reviewed. Questions were answered. After discussion, the patient indicated a desire to proceed with the planned surgery. Ash Chowdhury DO Medical Decision Making: Problems: Moderate: New problem with uncertain prognosis Risk: Moderate: Decision on minor surgery w/ risk factors Medical Decision Making Level: 4 - Moderate [facility] 04-09-2025 History and physical note DATE OF SERVICE: April 09, 2025 PROBLEM: fluid in endometrial cavity, pre op DIAGNOSIS: as above PAST SURGICAL HISTORY: PAST SURGICAL HISTORY Procedure Laterality Date ANTERIOR [...] non malignant TONSILLECTOMY PRIMARY/SECONDARY <AGE 14 Tonsillectomy PAST MEDICAL HISTORY: PAST MEDICAL HISTORY Diagnosis Date Acid reflux [...] essential hypertension Unspecified vitamin D deficiency 03/10/2007 SUBJECTIVE: Pt doing well and offers no complaints SOCIAL HISTORY: Social History Tobacco Use Smoking status: Former Current packs/day: 0.00 Average packs/day: 0.5 packs/day for 20.0 years (10.0 ttl pk-yrs) Types: Cigarettes Start date: 06/14/1983 Quit date: 06/14/2003 Years since quittin.8 Passive exposure: Never Smokeless tobacco: Never Vaping Use Vaping status: Never Used Substance Use Topics Alcohol use: Yes Comment: social - 1 drink a month Drug use: No ALLERGIES Allergen Reactions Hydrocodone-Acetami* Itching Imitrex [Sumatripta* Face went numb Prednisone Mental Status Change Current Outpatient Medications on File Prior to Visit Medication Sig potassium chloride 20 mEq TbER Take 2 tablets by mouth two times a day. ARIPiprazole (ABILIFY) 2 mg tablet Take 2 tablets by mouth once daily. hydroCHLOROthiazide 12.5 mg capsule Take 1 capsule by mouth once daily. gabapentin (NEURONTIN) 100 mg capsule Take 1 capsule by mouth three times a day for 180 days. estradiol (ESTRACE) 0.01 % (0.1 mg/gram) vaginal cream apply 1 gram of cream to lower vagina qhs daily for 2 weeks, and then twice weekly potassium chloride (K-TAB) 10 mEq tablet Take 1 tablet by mouth two times a day. eletriptan (RELPAX) 20 mg tablet Take 1 at start of headache, may repeat in 2 hours if necessary (total of 3 tablets) tirzepatide (MOUNJARO) 10 mg/0.5 mL pen injector Inject 10 mg subcutaneously one time a week. omeprazole (PRILOSEC) 20 mg capsule Take 1 capsule by mouth once daily. levothyroxine (SYNTHROID) 88 mcg tablet Take 1/2 tablet 3 days a week and whole tablet rest of the week. pravastatin (PRAVACHOL) 80 mg tablet Take 1 tablet by mouth once daily. cyanocobalamin, vitamin B-12, (VITAMIN B-12 ORAL) Take 5,000 mg by mouth every other day. MEDICATION, NON-DATABASE Alphalipoic metoprolol tartrate, short acting, (LOPRESSOR) 25 mg tablet Take 0.5 tablets by mouth once daily. lisinopril (ZESTRIL) 20 mg tablet Take 1 tablet by mouth twice daily. leflunomide (ARAVA) 10 mg tablet Take 2 tablets by mouth once daily. cyclobenzaprine (FLEXERIL) 10 mg tablet Take 1 tablet by mouth three times daily. Cholecalciferol, Vitamin D3, (VITAMIN D) 1,000 unit tab Take 1,000 Units by mouth once daily. sulfaSALAzine (AZULFIDINE) 500 mg tablet Take 1 tablet by mouth twice daily. cevimeline (EVOXAC) 30 mg ORAL capsule Take 60 mg by mouth twice daily. citalopram hydrobromide(CELEXA 20 MG TAB) Take 1.5 tablet daily. sodium fluoride/pot nitrate(PREVIDENT 5000 SENSITIVE 1.1 %-5 % DENTAL PASTE) gabapentin (NEURONTIN) 400 mg capsule Take 1 capsule by mouth three times a day for 180 days. No current facility-administered medications on file prior to visit. Pelvic US: * * *Final Report* * * DATE OF EXAM: Feb 06 2025 10:31AM [facility]60 - US FEMALE PELVIS TRANSVAG / PROCEDURE REASON: multiple diagnoses * * * * Physician Interpretation * * * * EXAMINATION: TRANSVAGINAL AND LIMITED TRANSABDOMINAL FEMALE PELVIC ULTRASOUND CLINICAL HISTORY: Uterine fibroid. TECHNIQUE: Sonography of the pelvis was performed by transvaginal and transabdominal (limited) techniques. Images were obtained and stored in a permanent archive. MQ: [facility]_2021 COMPARISON: CT abdomen pelvis on 01/26/2025 RESULT: Uterus: -Size: 5.8 x 2.8 x 3.5 cm -Orientation: Anteverted -Endometrial echo complex: Evaluation of the endometrium was adequate. Trace amount of free fluid is seen in the imaged upper canal. The endometrial echo complex measured 0.5 cm. -Cervix: Unremarkable. -Adenomyosis assessment: There are no sonographic findings of adenomyosis. -Fibroids: 2 fibroids visualized measuring 2.6 x 2.4 x 2.6 cm (anterior uterine body) and 1.5 x 1.0 x 1.2 cm (posterior uterine body). Right Ovary: Not seen. Left Ovary: Not seen. Free Fluid: Small free fluid is likely physiologic. OBJECTIVE: VITALS: BP 116/75 Pulse 76 Resp 14 Ht 167.6 cm (5' 6) Wt 81.3 kg (179 lb 3.2 oz) LMP 02/13/2019 (Approximate) SpO2 98% BMI 28.92 kg/m HEENT: Normocephalic, atraumatic, Mucus membranes moist without lesions. SKIN: No lesions. CHEST: Clear to auscultation. No wheezes or rales. Good air exchange. HEART: Regular rate and rhythm No S3 or S4. No gallops or rubs. BACK: Nontender. ABDOMEN: Non distended. LOWER EXTREMITIES: There was no pitting edema, no palpable cords and no skin changes. ASSESSMENT: pre op PLAN: 1) Discussed r/b/a hysteroscopy, D&C, possible polypectomy. The rationale for the proposed surgery was discussed in addition to risks, benefits, and alternatives. General pre- and post-operative care was reviewed. Questions were answered. After discussion, the patient indicated a desire to proceed with the planned surgery. Ash Chowdhury DO Medical Decision Making: Problems: Moderate: New problem with uncertain prognosis Risk: Moderate: Decision on minor surgery w/ risk factors Medical Decision Making Level: 4 - Moderate documented in this encounter [facility] 04-06-2025 Telephone encounter Note Patient notified, Denies any symptoms. [facility] 04-06-2025 Miscellaneous Notes Patient notified, Denies any symptoms. Potassium is very low. Any concerning symptoms? Palpitations? Chest pain? Weakness? Has she been taking the 10 meq of potassium twice a day? I have sent in a large 40 kassandra bid for 2 days dose, recheck in 3 days. Fior Alvarez APRN.CNP documented in this encounter [facility] 04-05-2025 Telephone encounter Note Potassium is very low. Any concerning symptoms? Palpitations? Chest pain? Weakness? Has she been taking the 10 meq of potassium twice a day? I have sent in a large 40 kassandra bid for 2 days dose, recheck in 3 days. Fior Alvarez APRN.CNP [facility] 04-02-2025 Telephone encounter Note Patient notified. Christofer Moore RN [facility] 04-02-2025 Miscellaneous Notes Patient notified. Christofer Moore RN Left message to call office. Keren Carreon RN No concerns Patient scheduled for hysteroscopy D&C on 04/20/25. Calling because she has MRI with contrast on 04/13/25 and asking if the contrast will affect anything with surgery/anesthesia. Christofer Moore RN documented in this encounter [facility] 04-02-2025 Telephone encounter Note Left message to call office. Keren Carreon RN [facility] 04-02-2025 Telephone encounter Note No concerns [facility] 03-30-2025 Note HNO ID: [id number] Author: FIOR ALVAREZ APRN.ELECTRONIC CALIBRATION TECHNICIAN Service: ? Author Type: Nurse Practitioner Type: Progress Notes Filed: 03/30/2025 10:05 Note Text: CC: No chief complaint on file. FREDA Allan is a 59 year old female who presents today for pre-op evaluation. Surgical Procedure: Hysteroscopy and dilation and curettage Date of Procedure: 04/20/25 Surgeon: Dr. Chowdhury PAT date: 7/28/25 METS: Walk indoors, such as around the house (1.75 METs): YES Do light work around the house, such as dusting or washing dishes (2.70 METs): YES Take care of self; that is eating, dressing, bathing, using the toilet (2.75 METs): YES Walk a block or two on level ground (2.75 METs): YES Do moderate work around the house such as vacuuming, sweeping floors, or carrying in groceries (3.50 METs): YES Do yardwork, such as raking leaves, weeding,or pushing a power mower (4.50 METs): YES Climb a flight of stairs or walk up a hill (5.50 METs): YES Participate in moderate recreational activities, such as golf, bowling, dancing, doubles tennis, or throwing a baseball or football (6.00 METs): YES Participate in strenuous sport, such as swimming, singles tennis, football, basketball, or skiing (7.50 METs): YES Do heavy work around the house, such as scrubbing floors, lifting or moving heavy furniture (8.00 METs): YES Run a short distance (8.00 METs): unknown Total: 8.0 Patient denies any chest pain or undue shortness of breath with the above physical activity. 1. Diabetes: History of this but A1c has been normal for years. 2. Hypertension requiring medication: Yes 3. Congestive Heart Failure: No 4. Current Smoker within 1 Year: No 5. History of COPD: No 6. History of REMIGIO: Yes does not require cpap or bipap any longer due to weight loss 7. Dialysis: No HTN and HLD: Ms. Allan denies headache, chest pain, palpitations, dyspnea, and peripheral edema. Patient denies any side effects of her medication(s) and is compliant with their regimen. She does check BP's away from this office with average BP's in the 120/75 range. Santos works out regularly 4-5 times per week with walking and light weights. She watches her diet for sodium, low fat and low cholesterol most of the time. Last 3 Encounter BP Readings: Date: BP: 03/28/2025 105/74 03/12/2025 118/82 03/07/2025 120/78 Sleep: Is at baseline for patient Alcohol use: one drink a month Drug use: No Appetite: good Stresses: Denies any major stressor. Suicidal Thoughts: No suicidal or homicidal ideation, intent or plan REMIGIO: no longer requiring use of bipap due to weight loss. Stopped use 3 months ago, down 100 pounds. Denies snoring, witnessed apnea. Reports restful sleep. Chronic migraines: Well controlled at this time and occurring on average once a month and resolve with use of relpax. Hypothyroidism: Taking levothyroxine as ordered. Denies any abnormal changes in weight or energy. REVIEW OF SYSTEMS General: no fevers, no chills, no night sweats, no recurrent infections, no change in appetite, no change in energy, and no significant changes in weight HEENT: no frequent or significant headaches, no changes in hearing, no visual changes, no nose bleeds, no sinus or nasal problems Neck: no lumps, no pain , and no swelling Respiratory: no cough, no wheezing, no shortness of breath, no hemoptysis Cardiovascular: no chest pain, no chest pressure, no palpitations, and no swelling GI: No nausea, vomiting, or diarrhea : No history of dysuria, frequency or incontinence Neurologic: No headache, weakness, numbness, tingling, dizziness, [...] SURGICAL HISTORY OF 02/11/2013 left carpal tunnel PAS (more content not included)... [facility] 03-30-2025 History of Present illness Narrative CC: No chief complaint on file. FREDA Allan is a 59 year old female who presents today for pre-op evaluation. Surgical Procedure: Hysteroscopy and dilation and curettage Date of Procedure: 04/20/25 Surgeon: Dr. Trenton DUVALL date: 04/09/25 METS: Walk indoors, such as around the house (1.75 METs): YES Do light work around the house, such as dusting or washing dishes (2.70 METs): YES Take care of self; that is eating, dressing, bathing, using the toilet (2.75 METs): YES Walk a block or two on level ground (2.75 METs): YES Do moderate work around the house such as vacuuming, sweeping floors, or carrying in groceries (3.50 METs): YES Do yardwork, such as raking leaves, weeding,or pushing a power mower (4.50 METs): YES Climb a flight of stairs or walk up a hill (5.50 METs): YES Participate in moderate recreational activities, such as golf, bowling, dancing, doubles tennis, or throwing a baseball or football (6.00 METs): YES Participate in strenuous sport, such as swimming, singles tennis, football, basketball, or skiing (7.50 METs): YES Do heavy work around the house, such as scrubbing floors, lifting or moving heavy furniture (8.00 METs): YES Run a short distance (8.00 METs): unknown Total: 8.0 Patient denies any chest pain or undue shortness of breath with the above physical activity. 1. Diabetes: History of this but A1c has been normal for years. 2. Hypertension requiring medication: Yes 3. Congestive Heart Failure: No 4. Current Smoker within 1 Year: No 5. History of COPD: No 6. History of REMIGIO: Yes does not require cpap or bipap any longer due to weight loss 7. Dialysis: No HTN and HLD: Ms. Allan denies headache, chest pain, palpitations, dyspnea, and peripheral edema. Patient denies any side effects of her medication(s) and is compliant with their regimen. She does check BP's away from this office with average BP's in the 120/75 range. Santos works out regularly 4-5 times per week with walking and light weights. She watches her diet for sodium, low fat and low cholesterol most of the time. Last 3 Encounter BP Readings: Date: BP: 03/28/2025 105/74 03/12/2025 118/82 03/07/2025 120/78 Sleep: Is at baseline for patient Alcohol use: one drink a month Drug use: No Appetite: good Stresses: Denies any major stressor. Suicidal Thoughts: No suicidal or homicidal ideation, intent or plan REMIGIO: no longer requiring use of bipap due to weight loss. Stopped use 3 months ago, down 100 pounds. Denies snoring, witnessed apnea. Reports restful sleep. Chronic migraines: Well controlled at this time and occurring on average once a month and resolve with use of relpax. Hypothyroidism: Taking levothyroxine as ordered. Denies any abnormal changes in weight or energy. REVIEW OF SYSTEMS General: no fevers, no chills, no night sweats, no recurrent infections, no change in appetite, no change in energy, and no significant changes in weight HEENT: no frequent or significant headaches, no changes in hearing, no visual changes, no nose bleeds, no sinus or nasal problems Neck: no lumps, no pain , and no swelling Respiratory: no cough, no wheezing, no shortness of breath, no hemoptysis Cardiovascular: no chest pain, no chest pressure, no palpitations, and no swelling GI: No nausea, vomiting, or diarrhea : No history of dysuria, frequency or incontinence Neurologic: No headache, weakness, numbness, tingling, dizziness, [...] malignant TONSILLECTOMY PRIMARY/SECONDARY <AGE 14 Tonsillectomy ALLERGIES Hydrocodone-Acetaminophen, Imitrex [Sumatriptan], and Prednisone MEDICATIONS ARIPiprazole (ABILIFY) 2 mg tablet Take 2 tablets by mouth once daily. hydroCHLOROthiazide 12.5 mg capsule Take 1 capsule by mouth once daily. gabapentin (NEURONTIN) 100 mg capsule Take 1 capsule by mouth three times a day for 180 days. estradiol (ESTRACE) 0.01 % (0.1 mg/gram) vaginal cream apply 1 gram of cream to lower vagina qhs daily for 2 weeks, and then twice weekly potassium chloride (K-TAB) 10 mEq tablet Take 1 tablet by mouth two times a day. eletriptan (RELPAX) 20 mg tablet Take 1 at start of headache, may repeat in 2 hours if necessary (total of 3 tablets) tirzepatide (MOUNJARO) 10 mg/0.5 mL pen injector Inject 10 mg subcutaneously one time a week. omeprazole (PRILOSEC) 20 mg capsule Take 1 capsule by mouth once daily. levothyroxine (SYNTHROID) 88 mcg tablet Take 1/2 tablet 3 days a week and whole tablet rest of the week. pravastatin (PRAVACHOL) 80 mg tablet Take 1 tablet by mouth once daily. gabapentin (NEURONTIN) 400 mg capsule Take 1 capsule by mouth three times a day for 180 days. cyanocobalamin, vitamin B-12, (VITAMIN B-12 ORAL) Take 5,000 mg by mouth every other day. MEDICATION, NON-DATABASE Alphalipoic metoprolol tartrate, short acting, (LOPRESSOR) 25 mg tablet Take 0.5 tablets by mouth once daily. lisinopril (ZESTRIL) 20 mg tablet Take 1 tablet by mouth twice daily. leflunomide (ARAVA) 10 mg tablet Take 2 tablets by mouth once daily. cyclobenzaprine (FLEXERIL) 10 mg tablet Take 1 tablet by mouth three times daily. Cholecalciferol, Vitamin D3, (VITAMIN D) 1,000 [...] Mother Cancer Mother breast, uterus/bone Lipids Mother Uterine Cancer Mother Diabetes Father Hypertension Father Osteoporosis Father Colon Cancer Father Stroke Father Lipids Father Headache Father Hypertension Brother Lipids Brother Headache Brother Diabetes Brother Social History Tobacco Use Smoking status: Former Current packs/day: 0.00 Average packs/day: 0.5 packs/day for 20.0 years (10.0 ttl pk-yrs) Types: Cigarettes Start date: 06/14/1983 Quit date: 06/14/2003 Years since quittin.8 Passive exposure: Never Smokeless tobacco: Never Vaping Use Vaping status: Never Used Substance Use Topics Alcohol use: Yes Comment: social - 1 drink a month Drug use: No PHYSICAL EXAM BP 102/70 Pulse 76 Temp 36.8 C (98.2 F) Resp 18 Ht 167.6 cm (5' 6) Wt 80.3 kg (177 lb) LMP 02/13/2019 (Approximate) SpO2 99% BMI 28.57 kg/m General Appearance: well appearing, in no acute distress, alert Neck: Thyroid normal size and symmetric without palpable nodules, Neck supple, No adenopathy Oropharynx: normal Lungs: Lungs clear to auscultation. No wheezing, rhonchi, rales. Heart: RRR without murmur, gallop, or rubs. No ectopy Abdomen: soft, nondistended, nontender, no hepatosplenomegaly or masses BUE: No deformities, edema, skin discoloration, clubbing or cyanosis. Good capillary refill. Diagnoses/Plan 1. Pre-operative evaluation Check Basic Metabolic Panel There is no known pertinent medical condition which may affect karma-operative course DURANT risk: Patient is scheduled for a low-risk procedure. Risk of 0.1% calculated using the NSQIP surgical risk calculator The patient is optimized for surgery ASSESSMENT/PLAN: 1. Preop exam for internal medicine - ICD9: V72.83, ICD10: Z01.818 (primary diagnosis) As aove - BASIC METABOLIC PANEL 2. Essential hypertension - ICD9: 401.9, ICD10: I10 - Controlled - Continue current medications - Recommend home blood pressure monitoring, to bring results to next visit - Encouraged sodium restriction, DASH or Mediterranean diet - Recommend regular aerobic exercise 3. Acquired hypothyroidism - ICD9: 244.9, ICD10: E03.9 Recent TSH in normal range and asymptomatic - Instructed patient on importance of taking on an empty stomach either first thing in the morning or at bedtime. 4. Obstructive sleep apnea syndrome - ICD9: 327.23, ICD10: G47.33 No longer requiring Bipap use with weight loss. Asymptomatic without usage. Will require repeat sleep study in the future 5. Migraine without aura and without status migrainosus, not intractable - ICD9: 346.10, ICD10: G43.009 Stable and controlled. 6. Type 2 diabetes mellitus with unspecified complications (HCC) - ICD9: 250.90, ICD10: E11.8 - Controlled - continue current medications - Blood glucose monitoring on a once daily schedule - Counseled on healthy diet and regular exercise - Discussed need for and benefit of weight loss. BMI 28.57 kg/(m^2) Prescription instructions reviewed with patient as applicable. Potential red flag symptoms discussed with the patient. Reviewed appropriate action plan to take if red flag symptoms occur. Patient agreeable to treatment plan. Fior Alvarez APRN.CNP documented in this encounter [facility] 03-28-2025 Instructions Luz Meeks PA-C - 03/28/2025 4:18 PM EDT Increase gabapentin to 500mg three times a day (400mg with a 100mg tablet) Follow up in 3-6 months documented in this encounter [facility] 03-28-2025 Note HNO ID: [id number] Author: LUZ MEEKS PA-C Service: ? Author Type: Physician Unix Analyst Type: Progress Notes Filed: 03/28/2025 16:31 Note Text: I have [facility] for General Neurology Name: Santos Allan Age: [age] year old Gender: female Primary Care Provider: Ana Bolaños MD Assessment/Plan: 03/28/2025 - General Neurology, Luz Meeks PA-C ASSESSMENT ASSESSMENT/PLAN: 1. Paresthesia of both feet - ICD9: 782.0, ICD10: R20.2 (primary diagnosis) 2. Neuropathy - ICD9: 355.9, ICD10: G62.9 Patient with some mild breakthrough pain of her neuropathy symptoms to her toes and feet. Repeat EMG was negative, did redemonstrate S1. Follows with pain management and has repeat MRI of the lumbar scheduled for April 13. No falls, signs or symptoms of acute cord compression. Laboratory studies were unrevealing for etiology for neuropathy symptoms. Discussed obtaining a skin biopsy to look for small fiber neuropathy but patient deferring this at this time. Will continue to treat as neuropathy. Discussed increasing to 500 mg 3 times a day for gabapentin dosing and patient is amenable to this. Discussed trying just in the afternoon where most of her breakthrough pain is and increasing as tolerated and needed. No new symptoms that would warrant additional workup at this time, patient agreeable to treatment plan at this time. Will follow-up in 3 to 6 months. PDMP website checked and validated. All prescriptions have been APPROPRIATELY filled. No suspicious activity was identified. 03/28/2025 by KENNEDI Aguiar PA-C Encounter Diagnosis ICD-10-CM 1. Paresthesia of both feet R20.2 2. Neuropathy G62.9 Return in about 3 months (around 06/28/2025). Chart, labs,and relevant images reviewed. Chief Complaint:Patient presents with: Follow Up: Saw [facility] 01/22/25- completed xrays and EMG Chart Review: 01/22/25 Plan: - EMG in 09/2023 was unremarkable will repeat the study to demonstrate and quantify peripheral neuropathy if any - May consider skin biopsy if this workup is negative -In absence of any radicular symptoms we will screen for x-ray lumbar spine and cervical spine to rule out any acute process, stability of hard lee in cervical spine -Screening labs for treatable causes of neuropathy including B12, B6, B1, folate, A1c, serum protein electrophoresis -Remain on gabapentin 400 mg 3 times daily, muscle relaxers Flexeril 3 times daily, hydrocodone for as needed use -Follow-up, encouraged in person exam to help with neurologic exam and sensory exam after workup is completed, if Luz is back she can schedule a follow-up with Luz as well at [facility]. I spent a total of 35 minutes on the date of the service which included preparing to see the patient, [id number] patient care, completing clinical documentation, obtaining and/or reviewing separately obtained history, performing a medically appropriate examination, counseling and educating the patient/family/caregiver, and ordering medications, tests, or procedures. Lucille Brandt PA-C HPI: Last seen on 01/22/25 for FU neuropathy, previously on gabapentin 400mg tid. Ordered repeat EMG and showed S1 but no neuropathy. XR lumbar spine showing degeneration. Patient presents for follow-up appointment. Notes some breakthrough pain specifically throughout the afternoon and evening. Otherwise gabapentin does seem to be helping her neuropathic pain on her feet. Was seen by another neurology PA and had some repeat workup done including repeat EMG which was stable from previous. Laboratory studies were unrevealing. X-ray of the lumbar spine did show some degenerative changes consistent with the EMG and patient does have an MRI of the lumbar spine scheduled with orthopedics for April 13. No falls, new signs or symptoms. Still experiencing paresthesias to the bottom of the feet, worse at the toes and occasionally up the leg bilaterally to the mid tib-fib in a stocking distribution. No falls but occasional tripping. Review of Systems ACTIVE PROBLEM LIST Bipolar I Disorder, Most Recent Episode Depressed (Hcc) Dysmetabolic Syndrome X Vitamin D Deficiency Irritable Bowel Syndrome Headache(784.0) Cervicalgia Hypoparathyroidism (Hcc) Sjogren's Disease (Hcc) Lap-Band Surgery Status Acid Reflux Iron Deficiency Acquired Hypothyroidism Migraine Without Aura and Without Status Migrainosus, Not Intractable Arthritis Obstructive Sleep Apnea Syndrome Class 2 Obesity Due to Excess Calories Without Serious Comorbidity With Body Mass Index (Bmi) of 39.0 to 39.9 in Adult Essential Hypertension History of Adjustable Gastric Banding Gastric Polyp Type 2 Diabetes Mellitus (Hcc) PAST MEDICAL HISTORY Diagnosis Date Acid reflux Anemia Anxiety disorder in conditions classified elsewhere Arthritis 03/03/2016 Bipolar I disorder, most recent episode (or current) (more content not included)... [facility] 03-28-2025 History of Present illness Narrative I have [facility] for General Neurology Name: Santos Allan Age: [age] year old Gender: female Primary Care Provider: Ana Bolaños MD Assessment/Plan: 03/28/2025 - General Neurology, Luz Meeks PA-C ASSESSMENT ASSESSMENT/PLAN: 1. Paresthesia of both feet - ICD9: 782.0, ICD10: R20.2 (primary diagnosis) 2. Neuropathy - ICD9: 355.9, ICD10: G62.9 Patient with some mild breakthrough pain of her neuropathy symptoms to her toes and feet. Repeat EMG was negative, did redemonstrate S1. Follows with pain management and has repeat MRI of the lumbar scheduled for April 13. No falls, signs or symptoms of acute cord compression. Laboratory studies were unrevealing for etiology for neuropathy symptoms. Discussed obtaining a skin biopsy to look for small fiber neuropathy but patient deferring this at this time. Will continue to treat as neuropathy. Discussed increasing to 500 mg 3 times a day for gabapentin dosing and patient is amenable to this. Discussed trying just in the afternoon where most of her breakthrough pain is and increasing as tolerated and needed. No new symptoms that would warrant additional workup at this time, patient agreeable to treatment plan at this time. Will follow-up in 3 to 6 months. [facility] website checked and validated. All prescriptions have been APPROPRIATELY filled. No suspicious activity was identified. 03/28/2025 by KENNEDI Aguiar PA-C Encounter Diagnosis ICD-10-CM 1. Paresthesia of both feet R20.2 2. Neuropathy G62.9 Return in about 3 months (around 06/28/2025). Chart, labs,and relevant images reviewed. Chief Complaint:Patient presents with: Follow Up: Saw [facility]rick 01/22/25- completed xrays and EMG Chart Review: 01/22/25 Plan: - EMG in 09/2023 was unremarkable will repeat the study to demonstrate and quantify peripheral neuropathy if any - May consider skin biopsy if this workup is negative -In absence of any radicular symptoms we will screen for x-ray lumbar spine and cervical spine to rule out any acute process, stability of hard lee in cervical spine -Screening labs for treatable causes of neuropathy including B12, B6, B1, folate, A1c, serum protein electrophoresis -Remain on gabapentin 400 mg 3 times daily, muscle relaxers Flexeril 3 times daily, hydrocodone for as needed use -Follow-up, encouraged in person exam to help with neurologic exam and sensory exam after workup is completed, if Luz is back she can schedule a follow-up with Luz as well at [facility]. I spent a total of 35 minutes on the date of the service which included preparing to see the patient, [id number] patient care, completing clinical documentation, obtaining and/or reviewing separately obtained history, performing a medically appropriate examination, counseling and educating the patient/family/caregiver, and ordering medications, tests, or procedures. Lucille Brandt PA-C HPI: Last seen on 01/22/25 for FU neuropathy, previously on gabapentin 400mg tid. Ordered repeat EMG and showed S1 but no neuropathy. XR lumbar spine showing degeneration. Patient presents for follow-up appointment. Notes some breakthrough pain specifically throughout the afternoon and evening. Otherwise gabapentin does seem to be helping her neuropathic pain on her feet. Was seen by another neurology PA and had some repeat workup done including repeat EMG which was stable from previous. Laboratory studies were unrevealing. X-ray of the lumbar spine did show some degenerative changes consistent with the EMG and patient does have an MRI of the lumbar spine scheduled with orthopedics for April 13. No falls, new signs or symptoms. Still experiencing paresthesias to the bottom of the feet, worse at the toes and occasionally up the leg bilaterally to the mid tib-fib in a stocking distribution. No falls but occasional tripping. Review of Systems ACTIVE PROBLEM LIST Bipolar I Disorder, Most Recent Episode Depressed (Hcc) Dysmetabolic Syndrome X Vitamin D Deficiency Irritable Bowel Syndrome Headache(784.0) Cervicalgia Hypoparathyroidism (Hcc) Sjogren's Disease (Hcc) Lap-Band Surgery Status Acid Reflux Iron Deficiency Acquired Hypothyroidism Migraine Without Aura and Without Status Migrainosus, Not Intractable Arthritis Obstructive Sleep Apnea Syndrome Class 2 Obesity Due to Excess Calories Without Serious Comorbidity With Body Mass Index (Bmi) of 39.0 to 39.9 in Adult Essential Hypertension History of Adjustable Gastric Banding Gastric Polyp Type 2 Diabetes Mellitus (Hcc) PAST MEDICAL HISTORY Diagnosis Date Acid reflux [...] essential hypertension Unspecified vitamin D deficiency 03/10/2007 Medications: Reviewed estradiol (ESTRACE) 0.01 % (0.1 mg/gram) vaginal cream apply 1 gram of cream to lower vagina qhs daily for 2 weeks, and then twice weekly potassium chloride (K-TAB) 10 mEq tablet Take 1 tablet by mouth two times a day. eletriptan (RELPAX) 20 mg tablet Take 1 at start of headache, may repeat in 2 hours if necessary (total of 3 tablets) tirzepatide (MOUNJARO) 10 mg/0.5 mL pen injector Inject 10 mg subcutaneously one time a week. omeprazole (PRILOSEC) 20 mg capsule Take 1 capsule by mouth once daily. levothyroxine (SYNTHROID) 88 mcg tablet Take 1/2 tablet 3 days a week and whole tablet rest of the week. pravastatin (PRAVACHOL) 80 mg tablet Take 1 tablet by mouth once daily. cyanocobalamin, vitamin B-12, (VITAMIN B-12 ORAL) Take 5,000 mg by mouth every other day. metoprolol tartrate, short acting, (LOPRESSOR) 25 mg tablet Take 0.5 tablets by mouth once daily. lisinopril (ZESTRIL) 20 mg tablet Take 1 tablet by mouth twice daily. leflunomide (ARAVA) 10 mg tablet Take 2 tablets by mouth once daily. cyclobenzaprine (FLEXERIL) 10 mg tablet Take 1 tablet by mouth three times daily. Cholecalciferol, Vitamin D3, (VITAMIN D) 1,000 unit tab Take 1,000 Units by mouth once daily. sulfaSALAzine (AZULFIDINE) 500 mg tablet Take 1 tablet by mouth twice daily. aripiprazole (ABILIFY) 2 mg tablet Take 1 tablet by mouth twice daily. (Patient taking differently: Take 4 mg by mouth once daily.) cevimeline (EVOXAC) 30 mg ORAL capsule Take 60 mg by mouth twice daily. citalopram hydrobromide(CELEXA 20 MG TAB) Take 1.5 tablet daily. sodium fluoride/pot nitrate(PREVIDENT 5000 SENSITIVE 1.1 %-5 % DENTAL PASTE) gabapentin (NEURONTIN) 100 mg capsule Take 1 capsule by mouth three times a day for 180 days. phenazopyridine (PYRIDIUM) 100 mg tablet Take 2 tablets by mouth three times a day as needed. (Patient not taking: Reported on 02/08/2025) gabapentin (NEURONTIN) 400 mg capsule Take 1 capsule by mouth three times a day for 180 days. MEDICATION, NON-DATABASE Alphalipoic CPAP/BIPAP/OTHER BiPAP 25/20 cmH2O. [employer]. Type .CPAPSettings into a note to see current settings/supplies/DME information. CPAP Bilevel 25/20 cmH2O, Resmed F20 FFM (small), Ti max 2.0, Ti min 0.3, Trigger medium, Cycle medium, HUMIDITY, LIFETIME SUPPLIES. (Patient not taking: Reported on 03/12/2025) ALLERGIES Allergen Reactions Hydrocodone-Acetami* Itching Imitrex [Sumatripta* Face went numb Prednisone Mental Status Change FAMILY HISTORY Problem Relation Age of Onset Diabetes Mother Hypertension Mother Psychiatry Mother bipolar Breast Cancer Mother Cancer Mother breast, uterus/bone Lipids Mother Uterine Cancer Mother Diabetes Father Hypertension Father Osteoporosis Father Colon Cancer Father Stroke Father Lipids Father Headache Father Hypertension Brother Lipids Brother Headache Brother Diabetes Brother PAST SURGICAL HISTORY Procedure Laterality Date ANTERIOR [...] non malignant TONSILLECTOMY PRIMARY/SECONDARY <AGE 12 Tonsillectomy Social Hx: @Alcohol Use: Not At Risk (11/03/2024) AUDIT-C Frequency of Alcohol Consumption: Monthly or less Average Number of Drinks: 1 or 2 Frequency of Binge Drinking: Never Tobacco Use: Medium Risk (03/12/2025) Patient History Smoking Tobacco Use: Former Smokeless Tobacco Use: Never Passive Exposure: Never 03/28/25 1556 BP: 105/74 Pulse: 81 Neurologic Exam Cognitive and Language: Alert and answered questions appropriately. Language was fluent. Cranial Nerves: Extraocular movements were full with no diplopia or nystagmus. Facial strength was symmetric. Motor: Full strength throughout upper and lower extremities Sensory: Decrease sensation to the feet and lower legs, more so medially than laterally. Decreased vibration throughout the ankle, absent at the great toe but intact at the knee. Coordination: Normal finger to nose and heel to lopez testing bilaterally. Normal gait. Labs: Lab Results Component Value Date WBC 9.12 01/25/2025 HCT 40.5 01/25/2025 MCV 90.8 01/25/2025 PLT 373 01/25/2025 Lab Results Component Value Date HBA1C 4.4 01/22/2025 HBA1C 4.8 04/27/2024 HBA1C 4.7 12/04/2022 HBA1C 4.8 02/15/2021 HBA1C 4.9 09/18/2017 HBA1C 4.8 03/24/2017 HBA1C 4.9 05/23/2016 HBA1C 4.7 02/20/2016 HBA1C 4.7 (ext) 05/28/2015 HBA1C 5.3 05/02/2013 Cholesterol, Total Date Value Ref Range Status 03/02/2025 175 <200 mg/dL Final Comment: <200 mg/dL, Desirable 200-239 mg/dL, Borderline high >239 mg/dL, High HDL Cholesterol Date Value Ref Range Status 03/02/2025 46 >39 mg/dL Final Comment: 40-59 mg/dL, Acceptable >59 mg/dL, High: Negative risk factor for coronary heart disease <40 mg/dL, Low: Positive risk factor for coronary heart disease LDL Cholesterol, Calculated Date Value Ref Range Status 03/02/2025 107 (H) <100 mg/dL Final Comment: <100 mg/dL, Optimal 100-129 mg/dL, Near optimal/above optimal 130-159 mg/dL, Borderline high 160-189 mg/dL, High >189 mg/dL, Very high Secondary prevention optimal LDL Cholesterol levels are recommended to be <70 mg/dL LDL cholesterol is calculated using the Lopez-NIH equation. Triglyceride Date Value Ref Range Status 03/02/2025 122 <150 mg/dL Final Comment: <150 mg/dL, Normal 150-199 mg/dL, Borderline high 200-499 mg/dL, High >499 mg/dL, Very high Results for orders placed or performed in visit on 03/07/25 UA DIP, URINE (POC) Result Value Ref Range GLUCOSE UA (POCT) Negative Negative mg/dL BILIRUBIN UA (POCT) Negative Negative KETONE UA (POCT) Negative Negative mg/dL SPECIFIC GRAVITY UA (POCT) 1.010 1.005 - 1.030 HEMOGLOBIN/BLOOD UA (POCT) Moderate (A) Negative PH UA (POCT) 6.0 4.5 - 8.0 PROTEIN UA (POCT) Negative Negative mg/dL UROBILINOGEN UA (POCT) 0.2 Normal E.U./dL NITRITE UA (POCT) Negative Negative LEUKOCYTES UA (POCT) Large (A) Negative COLOR UA (POCT) Yellow CLARITY UA (POCT) Clear BACTERIAL CULTURE, URINE Specimen: Urine, Midstream Result Value Ref Range Culture, Urine >=100,000 CFU/ml Klebsiella pneumoniae (A) Susceptibility Klebsiella pneumoniae - MINIMUM INHIBITORY CONCENTRATION(VITEK) Ampicillin Resistant Cefazolin* Susceptible * For uncomplicated urinary tract infections, cefazolin results can be used to predict susceptibility or resistance to cephalexin. Ceftriaxone Susceptible Cefepime Susceptible Ertapenem Susceptible Meropenem Susceptible Ampicillin/Sulbact Susceptible Piperacillin/Tazobac Susceptible Gentamicin Susceptible Tobramycin Susceptible Trimeth sulfameth Susceptible Ciprofloxacin Susceptible Nitrofurantoin Resistant EMG 02/09/25 Study Interpretation Electrodiagnostic examination of the right lower limb was limited by incomplete motor unit activation, particularly below the knee, either as the result of pain, poor voluntary effort, and/or a central disorder of motor unit control. It reveals: 1. 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 2. No definite evidence of a large fiber sensorimotor polyneuropathy. Of note, a pure small fiber sensory neuropathy cannot be excluded based on this study. Compared to the prior study dated 09/24/23, the findings on today's study are unchanged. Radiology: XR lumbar 01/22/25 IMPRESSION: Lumbar spine degenerative changes with multilevel disc space narrowing. XR c spine 01/22/25 IMPRESSION: Postoperative and degenerative changes with intact hardware. MRI Head/Brain - Last 2 Impressions No resulted procedures found. and MRI Spine - Last 2 Impressions MRI CERVICAL SPINE WWO CONTRAST Collected: 04/03/2008 9:26 AM (Final result) This note was dictated using [email or web address] speech recognition software and may contain some errors that were a result of the program not accurately transcribing what was dictated, despite efforts to make corrections. Note that unless urgent, test and MRI results will be discussed at next follow-up visit. PROMIS (Patient-Reported Outcomes Measurement Information System) is a set of person-centered measures that evaluates and monitors physical, social, and emotional health. It can be used with the general population and with individuals living with chronic conditions. PROMIS 10: PHYSICAL AND MENTAL HEALTH: 05/09/2024 PHQ-9 PHQ-2 Score 0 Medical Decision Making: Medical Decision Making Level: 1 - N/A I spent a total of 30 minutes on the date of the service which included preparing to see the patient, [id number] patient care, completing clinical documentation, obtaining and/or reviewing separately obtained history, performing a medically appropriate examination, counseling and educating the patient/family/caregiver, and ordering medications, tests, or procedures. Recording using ambient [employer] software for draft documentation of the visit was discussed with the patient/authorized customer relations representative; all questions welcomed and answered. Patient/authorized customer relations representative agreed to proceed documented in this encounter [facility] 03-28-2025 Note HNO ID: [id number] Author: WENDY TEJADA LPN Service: ? Author Type: LICENSED NURSE Type: Progress Notes Filed: 03/28/2025 16:31 Note Text: [facility] 03-28-2025 Telephone encounter Note Patient scheduled for hysteroscopy D&C on 04/20/25. Calling because she has MRI with contrast on 04/13/25 and asking if the contrast will affect anything with surgery/anesthesia. Christofer Moore RN [facility] 03-22-2025 Note HNO ID: [id number] Author: ASH CHOWDHURY MD Service: ? Author Type: Physician Type: Progress Notes Filed: 03/22/2025 12:57 Note Text: VIRTUAL VISIT PROGRESS NOTE This is a virtual visit using [employer] Zoom Video Visit. It required patient-provider interaction for the medical decision making as documented below. I have communicated my name and active licensure. The patient's identity and physical location were verified at the time of this visit. Either the patient or their legal customer relations representative has been informed of the risks and benefits of -- and alternatives to -- treatment through a remote evaluation and consents to proceed with the evaluation remotely. Santos Allan is a 59 year old female seen to discuss hysteroscopy [facility]. Patient states she was having pelvic pain which lead to a pelvic US. The pelvic US showed EMS 0.5 cm with fluid in the endometrial canal. EMB unsuccessful due to pain and cervical stenosis. Menopause around age [age]. No PMB. She describes her pain as lower pelvic cramping pain that is midline. Reports being treated recently for UTI. Completed course of antibiotics. Reports chronic diarrhea with IBS. Has clear discharge. HISTORY REVIEWED (electronic chart updated): PAST MEDICAL HISTORY Diagnosis Date Acid reflux [...] Mother Cancer Mother breast, uterus/bone Lipids Mother Uterine Cancer Mother Diabetes Father Hypertension Father Osteoporosis Father Colon Cancer Father Stroke Father Lipids Father Headache Father Hypertension Brother Lipids Brother Headache Brother Diabetes Brother Social History Tobacco Use Smoking status: Former Current packs/day: 0.00 Average packs/day: 0.5 packs/day for 20.0 years (10.0 ttl pk-yrs) Types: Cigarettes Start date: 06/14/1983 Quit date: 06/14/2003 Years since quittin.7 Passive exposure: Never Smokeless tobacco: Never Vaping Use Vaping status: Never Used Substance Use Topics Alcohol use: Yes Comment: social Drug use: No Current Outpatient Medications Medication Sig potassium chloride (K-TAB) 10 mEq tablet Take 1 tablet by mouth two times a day. eletriptan (RELPAX) 20 mg tablet Take 1 at start of headache, may repeat in 2 hours if necessary (total of 3 tablets) phenazopyridine (PYRIDIUM) 100 mg tablet Take 2 tablets by mouth three times a day as needed. (Patient not taking: Reported on 02/08/2025) tirzepatide (MOUNJARO) 10 mg/0.5 mL pen injector Inject 10 mg subcutaneously one time a week. omeprazole (PRILOSEC) 20 mg capsule Take 1 capsule by mouth once daily. levothyroxine (SYNTHROID) 88 mcg tablet Take 1/2 tablet 3 days a week and whole tablet rest of the week. pravastatin (PRAVACHOL) 80 mg tablet Take 1 tablet by mouth once daily. gabapentin (NEURONTIN) 400 mg capsule Take 1 capsule by mouth three times a day for 180 days. cyanocobalamin, vitamin B-12, (VITAMIN B-12 ORAL) Take 5,000 mg by mouth every other day. MEDICATION, NON-DATABASE Alphalipoic metoprolol tartrate, short acting, (LOPRESSOR) 25 mg tablet Take 0.5 tablets by mouth once daily. lisinopril (ZESTRIL) 20 mg tablet Take 1 tablet by mouth twice daily. CPAP/BIPAP/OTHER BiPAP 25/20 cmH2O. [employer]. Type .CPAPSettings into a note to see current settings/supplies/DME information. CPAP Bilevel 25/20 c (more content not included)... [facility] 03-22-2025 History of Present illness Narrative VIRTUAL VISIT PROGRESS NOTE This is a virtual visit using [employer] Video Visit. It required patient-provider interaction for the medical decision making as documented below. I have communicated my name and active licensure. The patient's identity and physical location were verified at the time of this visit. Either the patient or their legal customer relations representative has been informed of the risks and benefits of -- and alternatives to -- treatment through a remote evaluation and consents to proceed with the evaluation remotely. Santos Allan is a 59 year old female seen to discuss hysteroscopy D&C. Patient states she was having pelvic pain which lead to a pelvic US. The pelvic US showed EMS 0.5 cm with fluid in the endometrial canal. EMB unsuccessful due to pain and cervical stenosis. Menopause around age 54-53. No PMB. She describes her pain as lower pelvic cramping pain that is midline. Reports being treated recently for UTI. Completed course of antibiotics. Reports chronic diarrhea with IBS. Has clear discharge. HISTORY REVIEWED (electronic chart updated): PAST MEDICAL HISTORY Diagnosis Date Acid reflux [...] non malignant TONSILLECTOMY PRIMARY/SECONDARY <AGE 12 Tonsillectomy FAMILY HISTORY Problem Relation Age of Onset Diabetes Mother Hypertension Mother Psychiatry Mother bipolar Breast Cancer Mother Cancer Mother breast, uterus/bone Lipids Mother Uterine Cancer Mother Diabetes Father Hypertension Father Osteoporosis Father Colon Cancer Father Stroke Father Lipids Father Headache Father Hypertension Brother Lipids Brother Headache Brother Diabetes Brother Social History Tobacco Use Smoking status: Former Current packs/day: 0.00 Average packs/day: 0.5 packs/day for 20.0 years (10.0 ttl pk-yrs) Types: Cigarettes Start date: 06/14/1983 Quit date: 06/14/2003 Years since quittin.7 Passive exposure: Never Smokeless tobacco: Never Vaping Use Vaping status: Never Used Substance Use Topics Alcohol use: Yes Comment: social Drug use: No Current Outpatient Medications Medication Sig potassium chloride (K-TAB) 10 mEq tablet Take 1 tablet by mouth two times a day. eletriptan (RELPAX) 20 mg tablet Take 1 at start of headache, may repeat in 2 hours if necessary (total of 3 tablets) phenazopyridine (PYRIDIUM) 100 mg tablet Take 2 tablets by mouth three times a day as needed. (Patient not taking: Reported on 02/08/2025) tirzepatide (MOUNJARO) 10 mg/0.5 mL pen injector Inject 10 mg subcutaneously one time a week. omeprazole (PRILOSEC) 20 mg capsule Take 1 capsule by mouth once daily. levothyroxine (SYNTHROID) 88 mcg tablet Take 1/2 tablet 3 days a week and whole tablet rest of the week. pravastatin (PRAVACHOL) 80 mg tablet Take 1 tablet by mouth once daily. gabapentin (NEURONTIN) 400 mg capsule Take 1 capsule by mouth three times a day for 180 days. cyanocobalamin, vitamin B-12, (VITAMIN B-12 ORAL) Take 5,000 mg by mouth every other day. MEDICATION, NON-DATABASE Alphalipoic metoprolol tartrate, short acting, (LOPRESSOR) 25 mg tablet Take 0.5 tablets by mouth once daily. lisinopril (ZESTRIL) 20 mg tablet Take 1 tablet by mouth twice daily. CPAP/BIPAP/OTHER BiPAP 25/20 cmH2O. [facility]. Type .CPAPSettings into a note to see current settings/supplies/DME information. CPAP Bilevel 25/20 cmH2O, Resmed F20 FFM (small), Ti max 2.0, Ti min 0.3, Trigger medium, Cycle medium, HUMIDITY, LIFETIME SUPPLIES. (Patient not taking: Reported on 03/12/2025) leflunomide (ARAVA) 10 mg tablet Take 2 tablets by mouth once daily. cyclobenzaprine (FLEXERIL) 10 mg tablet Take 1 tablet by mouth three times daily. Cholecalciferol, Vitamin D3, (VITAMIN D) 1,000 [...] 5000 SENSITIVE 1.1 %-5 % DENTAL PASTE) No current facility-administered medications for this visit. ALLERGIES Allergen Reactions Hydrocodone-Acetami* Itching Imitrex [Sumatripta* Face went numb Prednisone Mental Status Change REVIEW OF SYSTEMS: As noted in HPI PHYSICAL EXAMINATION: VIDEO EXAM: (if completed, performed via video enabled technology) GENERAL: alert and appropriate, in no distress, well-hydrated, well nourished, and happy, smiling, interactive ASSESSMENT: (N85.9) Fluid in endometrial cavity (primary encounter diagnosis) (R93.89) Thickened endometrium (R10.2) Pelvic pain in female (Z80.49) Family history of uterine cancer PLAN: Reviewed pelvic US results with patient and cannot rule out hyperplasia or malignancy. Discussed r/b/a vaginal estrogen cream and questions answered. Discussed vaginal estrogen cream with provider who attempted EMB, and reported atrophy and cervical stenosis. Discussed r/b/a hysteroscopy D&C and questions answered. Discussed post operative recovery and restrictions as well. Patient elects to proceed with vaginal estrogen cream leading up to procedure, and she elects to proceed with hysteroscopy D&C. Surgery sheet completed. There are no Patient Instructions on file for this visit. I spent a total of 30 minutes on the date of the service which included preparing to see the patient, [id number] patient care, completing clinical documentation, performing a medically appropriate examination, counseling and educating the patient/family/caregiver, and ordering medications, tests, or procedures Ash Chowdhury DO documented in this encounter [facility] 03-12-2025 Note HNO ID: [id number] Author: ANA BOLAÑOS MD Service: ? Author Type: Physician Type: Progress Notes Filed: 03/12/2025 13:17 Note Text: Reason for Visit Follow up HPI Santos Allan is a 59-year-old female with a history of recurrent UTIs, presenting for follow-up. Santos reports a recent UTI, which she believes may be a recurrence from a previous infection last month. She notes that this is the first time she has experienced a UTI in 30 years. She has completed a course of Keflex and is currently taking another antibiotic, with two doses remaining. She is also experiencing breakthrough pain despite taking gabapentin 400 mg TID. She mentions that her neurologist has not diagnosed large cell neuropathy but has observed symptoms up to a certain level. Santos suspects that her neuropathy could be related to small cell neuropathy or lesions in her back, as noted in previous CT scans and X-rays. Santos has a history of obesity and has been taking Mounjaro 10 mg, which has helped her lose weight. She currently weighs 180 lbs and expresses a desire to lose an additional 10 lbs. She also has a history of diabetes, which is currently well-managed. She underwent gastric bypass surgery in 2016, during which a band slipped, causing frequent emesis and significant weight loss at the time. She has a history of REMIGIO and reports that she is no longer using her CPAP machine but is sleeping well. She also has a history of hypokalemia and is currently taking potassium supplements. She is on multiple medications, including sulfasalazine, atorvastatin, potassium, omeprazole, metoprolol, lisinopril, Synthroid, Arava, HCTZ, gabapentin, Ropax, Flexeril, escitalopram, Exovac, and Abilify 2 mg. She denies experiencing memory issues or fatigue related to her medications. She is also engaging in regular exercise, including walking and light weightlifting. Social History Tobacco Use Smoking status: Former Current packs/day: 0.00 Average packs/day: 0.5 packs/day for 20.0 years (10.0 ttl pk-yrs) Types: Cigarettes Start date: 06/14/1983 Quit date: 06/14/2003 Years since quittin.7 Passive exposure: Never Smokeless tobacco: Never Vaping Use Vaping status: Never Used Substance Use Topics Alcohol use: Yes Comment: social Drug use: No Past medical history, appointments, medications, allergies reviewed. Pertinent Lab/Diagnostic Studies are reviewed and discussed today Current Outpatient Medications: cephALEXin (KEFLEX) 250 mg capsule eletriptan (RELPAX) 20 mg tablet tirzepatide (MOUNJARO) 10 mg/0.5 mL pen injector omeprazole (PRILOSEC) 20 mg capsule levothyroxine (SYNTHROID) 88 mcg tablet pravastatin (PRAVACHOL) 80 mg tablet gabapentin (NEURONTIN) 400 mg capsule cyanocobalamin, vitamin B-12, (VITAMIN B-12 ORAL) MEDICATION, NON-DATABASE metoprolol tartrate, short acting, (LOPRESSOR) 25 mg tablet lisinopril (ZESTRIL) 20 mg tablet leflunomide (ARAVA) 10 mg tablet cyclobenzaprine (FLEXERIL) 10 mg tablet Cholecalciferol, Vitamin D3, (VITAMIN D) 1,000 unit tab sulfaSALAzine (AZULFIDINE) 500 mg tablet aripiprazole (ABILIFY) 2 mg tablet cevimeline (EVOXAC) 30 mg ORAL capsule citalopram hydrobromide(CELEXA 20 MG TAB) sodium fluoride/pot nitrate(PREVIDENT 5000 SENSITIVE 1.1 %-5 % DENTAL PASTE) potassium chloride (K-TAB) 10 mEq tablet phenazopyridine (PYRIDIUM) 100 mg tablet CPAP/BIPAP/OTHER CPAP Health Maintenance Hepatitis B Vaccine(1 of 3 - 19+ 3-dose series) Dilated Retinal Exam Covid-19 Vaccine(8 - Pfizer risk season)@ Review Of Systems Constitutional: (+) weight loss, (-) fatigue Neurological: (+) pain, (-) memory impairment Psychiatric: (-) sleep disturbance Physical Exam BP 118/82 (BP Site: Left Arm, BP Position: Sitting, BP Cuff Size: Regular Adult) Pulse 87 Wt 81.9 kg (180 lb 9.6 oz) LMP 02/13/2019 (Approximate) SpO2 96% BMI 28.96 kg/m? GENERAL: NAD, alert and oriented. SKIN: Unremarkable, no rash or skin lesions. HEAD: Normocephalic. EYES: PERRLA, EOMI, conjunctiva clear. EARS: External ears normal, canals clear, TM's normal. LUNGS: Clear to auscultation bilaterally, no wheezes/rhonchi/rales. HEART: Regular rate and rhythm, no murmurs. No ectopy. EXTREMITIES: Normal, no deformities, no skin discoloration, no edema. NEURO: Awake, alert and oriented x3, cranial nerves II-XII grossly intact, normal gait, no involuntary motions. Labs: - Urine culture: Klebsiella species - Microalbumin/creatinine ratio: Slightly elevated - TSH: Normal - Cholesterol: Normal Imaging: - CT scans and x-rays: Lesions identified in the spine Assessment and Plan 1. Type 2 diabetes mellitus with diabetic microalbuminuria, without long-term current use of insulin (HCC) (E11.29) Microalbuminuria present. Weight loss achieved with Mounjaro and gastric bypass has improved glycemic control. - Continue Mounjaro. - Monitor BMP in (more content not included)... [facility] 03-12-2025 History of Present illness Narrative Reason for Visit Follow up HPI Santos Allan is a 59-year-old female with a history of recurrent UTIs, presenting for follow-up. Santos reports a recent UTI, which she believes may be a recurrence from a previous infection last month. She notes that this is the first time she has experienced a UTI in 30 years. She has completed a course of Keflex and is currently taking another antibiotic, with two doses remaining. She is also experiencing breakthrough pain despite taking gabapentin 400 mg TID. She mentions that her neurologist has not diagnosed large cell neuropathy but has observed symptoms up to a certain level. Santos suspects that her neuropathy could be related to small cell neuropathy or lesions in her back, as noted in previous CT scans and X-rays. Santos has a history of obesity and has been taking Mounjaro 10 mg, which has helped her lose weight. She currently weighs 180 lbs and expresses a desire to lose an additional 10 lbs. She also has a history of diabetes, which is currently well-managed. She underwent gastric bypass surgery in 2016, during which a band slipped, causing frequent emesis and significant weight loss at the time. She has a history of REMIGIO and reports that she is no longer using her CPAP machine but is sleeping well. She also has a history of hypokalemia and is currently taking potassium supplements. She is on multiple medications, including sulfasalazine, atorvastatin, potassium, omeprazole, metoprolol, lisinopril, Synthroid, Arava, HCTZ, gabapentin, Ropax, Flexeril, escitalopram, Exovac, and Abilify 2 mg. She denies experiencing memory issues or fatigue related to her medications. She is also engaging in regular exercise, including walking and light weightlifting. Social History Tobacco Use Smoking status: Former Current packs/day: 0.00 Average packs/day: 0.5 packs/day for 20.0 years (10.0 ttl pk-yrs) Types: Cigarettes Start date: 06/14/1983 Quit date: 06/14/2003 Years since quittin.7 Passive exposure: Never Smokeless tobacco: Never Vaping Use Vaping status: Never Used Substance Use Topics Alcohol use: Yes Comment: social Drug use: No Past medical history, appointments, medications, allergies reviewed. Pertinent Lab/Diagnostic Studies are reviewed and discussed today Current Outpatient Medications: cephALEXin (KEFLEX) 250 mg capsule eletriptan (RELPAX) 20 mg tablet tirzepatide (MOUNJARO) 10 mg/0.5 mL pen injector omeprazole (PRILOSEC) 20 mg capsule levothyroxine (SYNTHROID) 88 mcg tablet pravastatin (PRAVACHOL) 80 mg tablet gabapentin (NEURONTIN) 400 mg capsule cyanocobalamin, vitamin B-12, (VITAMIN B-12 ORAL) MEDICATION, NON-DATABASE metoprolol tartrate, short acting, (LOPRESSOR) 25 mg tablet lisinopril (ZESTRIL) 20 mg tablet leflunomide (ARAVA) 10 mg tablet cyclobenzaprine (FLEXERIL) 10 mg tablet Cholecalciferol, Vitamin D3, (VITAMIN D) 1,000 unit tab sulfaSALAzine (AZULFIDINE) 500 mg tablet aripiprazole (ABILIFY) 2 mg tablet cevimeline (EVOXAC) 30 mg ORAL capsule citalopram hydrobromide(CELEXA 20 MG TAB) sodium fluoride/pot nitrate(PREVIDENT 5000 SENSITIVE 1.1 %-5 % DENTAL PASTE) potassium chloride (K-TAB) 10 mEq tablet phenazopyridine (PYRIDIUM) 100 mg tablet CPAP/BIPAP/OTHER CPAP Health Maintenance Hepatitis B Vaccine(1 of 3 - 19+ 3-dose series) Dilated Retinal Exam Covid-19 Vaccine(8 - Pfizer risk season)@ Review Of Systems Constitutional: (+) weight loss, (-) fatigue Neurological: (+) pain, (-) memory impairment Psychiatric: (-) sleep disturbance Physical Exam BP 118/82 (BP Site: Left Arm, BP Position: Sitting, BP Cuff Size: Regular Adult) Pulse 87 Wt 81.9 kg (180 lb 9.6 oz) LMP 02/13/2019 (Approximate) SpO2 96% BMI 28.96 kg/m GENERAL: NAD, alert and oriented. SKIN: Unremarkable, no rash or skin lesions. HEAD: Normocephalic. EYES: PERRLA, EOMI, conjunctiva clear. EARS: External ears normal, canals clear, TM's normal. LUNGS: Clear to auscultation bilaterally, no wheezes/rhonchi/rales. HEART: Regular rate and rhythm, no murmurs. No ectopy. EXTREMITIES: Normal, no deformities, no skin discoloration, no edema. NEURO: Awake, alert and oriented x3, cranial nerves II-XII grossly intact, normal gait, no involuntary motions. Labs: - Urine culture: Klebsiella species - Microalbumin/creatinine ratio: Slightly elevated - TSH: Normal - Cholesterol: Normal Imaging: - CT scans and x-rays: Lesions identified in the spine Assessment and Plan 1. Type 2 diabetes mellitus with diabetic microalbuminuria, without long-term current use of insulin (HCC) (E11.29) Microalbuminuria present. Weight loss achieved with Mounjaro and gastric bypass has improved glycemic control. - Continue Mounjaro. - Monitor BMP in 3 months to assess renal function and potassium levels. 2. Acquired hypothyroidism (E03.9) TSH levels are within normal range. Continue current Synthroid therapy. 3. Class 2 obesity due to excess calories without serious comorbidity with body mass index (BMI) of 39.0 to 39.9 in adult (E66.812) Significant weight loss achieved with Mounjaro and gastric bypass. Current weight is stable, with a potential goal of losing an additional 10 pounds. - Continue Mounjaro. - Maintain current exercise regimen, including walking and light weights. 4. Obstructive sleep apnea syndrome (G47.33) Patient is not using CPAP machine and reports good sleep quality. Monitor sleep quality; no immediate changes to current management. 5. Hypokalemia (E87.6) Previous episodes of hypokalemia; currently on potassium supplementation. - Discontinue hydrochlorothiazide. - Continue potassium supplementation. - Monitor BMP in 3 months to assess potassium levels. - Monitor for signs of edema and elevated blood pressure; if present, consider resuming hydrochlorothiazide. Voice recognition software was used to compose this office note. Please excuse any unintended typographical errors. Recording using ambient [employer] software for draft documentation of the visit was discussed with the patient/authorized customer relations representative; all questions welcomed and answered. Patient/authorized customer relations representative agreed to proceed Ana Bolaños MD documented in this encounter [facility] 03-12-2025 Instructions Ana Bolaños MD - 03/12/2025 9:14 AM EDT We discussed your recurrent urinary tract infections (UTIs): - You recently completed a course of Keflex for your UTI. Please monitor for any recurrence of symptoms such as burning with urination, urgency, or fever. If these symptoms return, contact our office. We discussed your medications and blood pressure management: - We decided to discontinue hydrochlorothiazide. Please continue taking potassium as prescribed, as your potassium levels tend to run low. - Monitor your blood pressure regularly at home. If you notice swelling in your legs or an increase in your blood pressure, please contact our office, as we may need to restart hydrochlorothiazide. - We will recheck your basic metabolic panel (BMP) in 3 months to assess your potassium levels and kidney function. We discussed your history of diabetes and weight management: - You have done well with weight loss on Mounjaro and gastric bypass. Continue your current regimen, as it has helped improve your diabetes control. - If you would like to lose an additional 10 pounds, continue your current exercise routine, which includes walking and light weights. We discussed your kidney health: - You have microalbuminuria (a small amount of protein in your urine), which indicates some kidney involvement. Lisinopril is protective for your kidneys, so please continue taking it as prescribed. We discussed your history of obstructive sleep apnea: - You are no longer using your CPAP machine and are sleeping well. No further action is needed at this time. Follow-up: - We will recheck your BMP in 3 months to monitor your potassium levels and kidney function. - Please contact our office if you experience swelling, elevated blood pressure, or any other concerning symptoms. documented in this encounter [facility] 03-07-2025 Instructions Jacquie Clarke APRN.BRITANY - 03/07/2025 8:27 AM EDT - Take Keflex (cephalexin) twice a day as prescribed; prescription has been sent to your [facility] pharmacy. - A urine culture was sent to the lab; results usually return in a couple of days (likely by Wednesday) to confirm the diagnosis and guide treatment. - Keep your scheduled follow-up appointment with Dr. Pozo on the ; if your symptoms worsen or do not improve before then, please contact our office. documented in this encounter [facility] 03-07-2025 Note HNO ID: [id number] Author: JACQUIE CLARKE APRN.BRITANY Service: ? Author Type: Nurse Practitioner Type: Progress Notes Filed: 03/07/2025 08:28 Note Text: CC: Patient presents with: Abdominal Pain: Lower abdomen x 2 days HPI Recording using [employer] software for draft documentation of the visit was discussed with the patient/authorized customer relations representative; all questions welcomed and answered. Patient/authorized customer relations representative agreed to proceed Santos Allan is a 59-year-old female presenting with recurrent UTI symptoms. UTI Symptoms: - right lower quadrant abdominal pain x 1 month - Recent onset of urinary cramping x 2 days - Denies gross hematuria, fever, chills, or cloudy urine. - History of UTI approximately one month ago, treated with Macrobid. - Persistent pain led to a CT scan, revealing fibroids and thickened endometrium. Referred to gynecology; severe pain during speculum exam. Review of Systems See HPI PAST MEDICAL HISTORY Diagnosis Date Acid reflux [...] - non malignant TONSILLECTOMY PRIMARY/SECONDARY Tonsillectomy ALLERGIES Hydrocodone-Acetaminophen, Imitrex [Sumatriptan], and Prednisone MEDICATIONS cephALEXin (KEFLEX) 250 mg capsule Take 1 capsule by mouth two times a day for 7 days. eletriptan (RELPAX) 20 mg tablet Take 1 at start of headache, may repeat in 2 hours if necessary (total of 3 tablets) potassium chloride (K-TAB) 10 mEq tablet Take 1 tablet by mouth two times a day. phenazopyridine (PYRIDIUM) 100 mg tablet Take 2 tablets by mouth three times a day as needed. (Patient not taking: Reported on 02/08/2025) tirzepatide (MOUNJARO) 10 mg/0.5 mL pen injector Inject 10 mg subcutaneously one time a week. hydroCHLOROthiazide 12.5 mg capsule Take 1 capsule by mouth once daily. omeprazole (PRILOSEC) 20 mg capsule Take 1 capsule by mouth once daily. levothyroxine (SYNTHROID) 88 mcg tablet Take 1/2 tablet 3 days a week and whole tablet rest of the week. pravastatin (PRAVACHOL) 80 mg tablet Take 1 tablet by mouth once daily. gabapentin (NEURONTIN) 400 mg capsule Take 1 capsule by mouth three times a day for 180 days. cyanocobalamin, vitamin B-12, (VITAMIN B-12 ORAL) Take 5,000 mg by mouth every other day. MEDICATION, NON-DATABASE Alphalipoic metoprolol tartrate, short acting, (LOPRESSOR) 25 mg tablet Take 0.5 tablets by mouth once daily. lisinopril (ZESTRIL) 20 mg tablet Take 1 tablet by mouth twice daily. (Patient taking differently: Take 20 mg by mouth once daily.) CPAP/BIPAP/OTHER BiPAP 25/20 cmH2O. [facility]. Type .CPAPSettings into a note to see current settings/supplies/DME information. CPAP Bilevel 25/20 cmH2O, Resmed F20 FFM (small), Ti max 2.0, Ti min 0.3, Trigger medium, Cycle medium, HUMIDITY, LIFETIME SUPPLIES. leflunomide (ARAVA) 10 mg tablet Take 2 tablets by mouth once daily. cyclobenzaprine (FLEXERIL) 10 mg tablet Take 1 tablet by mouth three times daily. Cholecalciferol, Vitamin D3, (VITAMIN D) 1,000 unit tab Take 1,000 Units by mouth once daily. sulfaSALAzine (AZULFIDINE) 500 mg tablet Take 1 tablet by mouth twice daily. aripiprazole (ABILIFY) 2 mg tablet Take 1 tablet by mouth twice daily. (Patient taking differently: Take 4 mg by mouth once daily.) cevimeline (EVOXAC) 30 mg ORAL capsule Take 60 mg by mouth twice daily. citalopram hydrobromide(CELEXA 20 MG TAB) Take 1.5 tablet daily. sodium fluoride/pot nitrate(PREVIDENT 5000 SENSITIVE 1.1 %-5 % DENTAL PASTE) FAMILY HISTORY Problem Relation Age of Onset Diabetes (more content not included)... [facility] 03-07-2025 History of Present illness Narrative CC: Patient presents with: Abdominal Pain: Lower abdomen x 2 days HPI Recording using ambient I[employer]ob[employer] software for draft documentation of the visit was discussed with the patient/authorized customer relations representative; all questions welcomed and answered. Patient/authorized customer relations representative agreed to proceed Santos Allan is a 59-year-old female presenting with recurrent UTI symptoms. UTI Symptoms: - right lower quadrant abdominal pain x 1 month - Recent onset of urinary cramping x 2 days - Denies gross hematuria, fever, chills, or cloudy urine. - History of UTI approximately one month ago, treated with Macrobid. - Persistent pain led to a CT scan, revealing fibroids and thickened endometrium. Referred to gynecology; severe pain during speculum exam. Review of Systems See HPI PAST MEDICAL HISTORY Diagnosis Date Acid reflux [...] malignant TONSILLECTOMY PRIMARY/SECONDARY <AGE 12 Tonsillectomy ALLERGIES Hydrocodone-Acetaminophen, Imitrex [Sumatriptan], and Prednisone MEDICATIONS cephALEXin (KEFLEX) 250 mg capsule Take 1 capsule by mouth two times a day for 7 days. eletriptan (RELPAX) 20 mg tablet Take 1 at start of headache, may repeat in 2 hours if necessary (total of 3 tablets) potassium chloride (K-TAB) 10 mEq tablet Take 1 tablet by mouth two times a day. phenazopyridine (PYRIDIUM) 100 mg tablet Take 2 tablets by mouth three times a day as needed. (Patient not taking: Reported on 02/08/2025) tirzepatide (MOUNJARO) 10 mg/0.5 mL pen injector Inject 10 mg subcutaneously one time a week. hydroCHLOROthiazide 12.5 mg capsule Take 1 capsule by mouth once daily. omeprazole (PRILOSEC) 20 mg capsule Take 1 capsule by mouth once daily. levothyroxine (SYNTHROID) 88 mcg tablet Take 1/2 tablet 3 days a week and whole tablet rest of the week. pravastatin (PRAVACHOL) 80 mg tablet Take 1 tablet by mouth once daily. gabapentin (NEURONTIN) 400 mg capsule Take 1 capsule by mouth three times a day for 180 days. cyanocobalamin, vitamin B-12, (VITAMIN B-12 ORAL) Take 5,000 mg by mouth every other day. MEDICATION, NON-DATABASE Alphalipoic metoprolol tartrate, short acting, (LOPRESSOR) 25 mg tablet Take 0.5 tablets by mouth once daily. lisinopril (ZESTRIL) 20 mg tablet Take 1 tablet by mouth twice daily. (Patient taking differently: Take 20 mg by mouth once daily.) CPAP/BIPAP/OTHER BiPAP 25/20 cmH2O. [facility]. Type .CPAPSettings into a note to see current settings/supplies/DME information. CPAP Bilevel 25/20 cmH2O, Resmed F20 FFM (small), Ti max 2.0, Ti min 0.3, Trigger medium, Cycle medium, HUMIDITY, LIFETIME SUPPLIES. leflunomide (ARAVA) 10 mg tablet Take 2 tablets by mouth once daily. cyclobenzaprine (FLEXERIL) 10 mg tablet Take 1 tablet by mouth three times daily. Cholecalciferol, Vitamin D3, (VITAMIN D) 1,000 unit tab Take 1,000 Units by mouth once daily. sulfaSALAzine (AZULFIDINE) 500 mg tablet Take 1 tablet by mouth twice daily. aripiprazole (ABILIFY) 2 mg tablet Take 1 tablet by mouth twice daily. (Patient taking differently: Take 4 mg by mouth once daily.) cevimeline (EVOXAC) 30 mg ORAL capsule Take [...] Social History Tobacco Use Smoking status: Former Current packs/day: 0.00 Average packs/day: 0.5 packs/day for 20.0 years (10.0 ttl pk-yrs) Types: Cigarettes Start date: 06/14/1983 Quit date: 06/14/2003 Years since quittin.7 Passive exposure: Never Smokeless tobacco: Never Vaping Use Vaping status: Never Used Substance Use Topics Alcohol use: Yes Comment: social Drug use: No BP 120/78 Pulse 84 Temp 36.4 C (97.5 F) (Temporal) Resp 16 Wt 82.4 kg (181 lb 10.5 oz) LMP 02/13/2019 (Approximate) SpO2 99% BMI 29.13 kg/m Physical Exam Vitals reviewed. Constitutional: Appearance: Normal appearance. Neurological: Mental Status: She is alert. DATA REVIEWED: urine dip today and recent abdomen/pelvis Latest Ref Rng 03/07/2025 GLUCOSE UA (POCT) Negative mg/dL Negative BILIRUBIN UA (POCT) Negative Negative KETONE UA (POCT) Negative mg/dL Negative SPECIFIC GRAVITY UA (POCT) 1.005 - 1.030 1.010 HEMOGLOBIN/BLOOD UA (POCT) Negative Moderate ! PH UA (POCT) 4.5 - 8.0 6.0 PROTEIN UA (POCT) Negative mg/dL Negative UROBILINOGEN UA (POCT) Normal E.U./dL 0.2 NITRITE UA (POCT) Negative Negative LEUKOCYTES UA (POCT) Negative Large ! COLOR UA (POCT) Yellow CLARITY UA (POCT) Clear Assessment/Plan 1. Lower abdominal pain (R10.30) 2. Hematuria, unspecified type (R31.9) - Recent history of UTI treated with Macrobid; symptoms persisted. - Previous CT scan revealed fibroids; gynecology not concerned about fibroids but noted thickened endometrium. Severe pain during recent pelvic exam. - Current symptoms include cramping during urination, no visible hematuria, no fever or chills, and chronic back pain. - Urine dip today showed large blood and moderate leuks - patient unable to have Bactrim due to drug interactions with Lisinopril and potassium. Initiated Keflex BID -OTC analgesics as needed. - Urine culture ordered to confirm UTI - Follow-up with Dr. Pozo on the to discuss further management if symptoms persist. Prescription instructions reviewed with patient as applicable. Potential red flag symptoms discussed with the patient. Reviewed appropriate action plan to take if red flag symptoms occur. Patient agreeable to treatment plan. Jacquie Clarke APRN.ELECTRONIC CALIBRATION TECHNICIAN documented in this encounter [facility] 02-27-2025 Note Patient Outreach (IN [facility]) ---- SANTOS ALLAN ([id number]) 1965 F Date Time Provider Department 02/27/25 ANA BOLAÑOS During your visit today, we recorded the following information about you: Allergies As of Date: 02/27/2025 Noted Allergy Reaction HYDROCODONE-ACETAMINOPHEN 08/24/2019 9 - Itching IMITREX (SUMATRIPTAN) 07/25/2007 Comments: Face went numb PREDNISONE 09/05/2024 1 - Mental Status Change Date Reviewed: 02/08/2025 Reviewed by: Richie Newman APRN.ELECTRONIC CALIBRATION TECHNICIAN - Fully Assessed Visit Diagnoses:Type 2 diabetes mellitus (HCC) [E11.9] Hyperlipidemia, unspecified hyperlipidemia type [E78.5] Acquired hypothyroidism [E03.9] Order(s):ALBUMIN/CREATININE RATIO, URINE [SQUACR] Order #: [id number] FUTURE LIPID PANEL, FASTING [SQLIPB] Order #: [id number] FUTURE THYROID STIMULATING HORMONE [SQTSH] Order #: [id number] FUTURE Prescriptions as of 03/02/2025 - eletriptan (RELPAX) 20 mg tablet Take 1 at start of headache, may repeat in 2 hours if necessary (total of 3 tablets) - potassium chloride (K-TAB) 10 mEq tablet Take 1 tablet by mouth two times a day. - phenazopyridine (PYRIDIUM) 100 mg tablet Take 2 tablets by mouth three times a day as needed. - tirzepatide (MOUNJARO) 10 mg/0.5 mL pen injector Inject 10 mg subcutaneously one time a week. - hydroCHLOROthiazide 12.5 mg capsule Take 1 capsule by mouth once daily. - omeprazole (PRILOSEC) 20 mg capsule Take 1 capsule by mouth once daily. - levothyroxine (SYNTHROID) 88 mcg tablet Take 1/2 tablet 3 days a week and whole tablet rest of the week. - pravastatin (PRAVACHOL) 80 mg tablet Take 1 tablet by mouth once daily. - gabapentin (NEURONTIN) 400 mg capsule Take 1 capsule by mouth three times a day for 180 days. - cyanocobalamin, vitamin B-12, (VITAMIN B-12 ORAL) Take 5,000 mg by mouth every other day. - MEDICATION, NON-DATABASE Alphalipoic - metoprolol tartrate, short acting, (LOPRESSOR) 25 mg tablet Take 0.5 tablets by mouth once daily. - lisinopril (ZESTRIL) 20 mg tablet Take 1 tablet by mouth twice daily. - CPAP/BIPAP/OTHER BiPAP 25/20 cmH2O. [employer]. Type .CPAPSettings into a note to see current settings/supplies/DME information. - CPAP Bilevel 25/20 cmH2O, Resmed F20 [...] DENTAL PASTE) Problem List As Of Date 02/27/2025 Noted Resolved DIABETES MELLITUS ADULT ONSET [E11.9] [...] 03/03/2016 Obstructive sleep apnea syndrome [G47.33] 05/26/2018 Class 2 obesity due to excess calories without *03/03/2024 Essential hypertension [I10] 08/11/2024 History of adjustable gastric banding [Z98.84] 11/18/2021 Gastric polyp [K31.7] 11/18/2021 Type 2 diabetes mellitus (HCC) [E11.9] 01/26/2024 Encounter Status:Closed by [employer], PRODUSER on 03/02/25 [facility] 02-09-2025 Note HNO ID: [id number] Author: DENVER MATTA DO Service: ? Author Type: Physician Type: Progress Notes Filed: 02/09/2025 08:13 Note Text: UNIVERSAL PROTOCOL / SAFETY CHECKLIST Procedure to be Performed: EMG Sign In: A Moment of CARE was completed. Personnel directly involved with the procedure wore the appropriate PPE (Personal Protective Equipment). Patient/Surrogate Stated/Verified: Patient name, Date of , Relevant allergies, and The intended procedure Time Out Communication: Intended patient and procedure match the source documents. Correct side/site marked and visible. Sign Out: SIGN OUT (optional for EMERGENT procedures): Post-procedure follow-up management communicated and Plan of Care Visit completed when applicable. RD Reid, [facility] 02-09-2025 History of Present illness Narrative UNIVERSAL PROTOCOL / SAFETY CHECKLIST Procedure to be Performed: EMG Sign In: A Moment of CARE was completed. Personnel directly involved with the procedure wore the appropriate PPE (Personal Protective Equipment). Patient/Surrogate Stated/Verified: Patient name, Date of , Relevant allergies, and The intended procedure Time Out Communication: Intended patient and procedure match the source documents. Correct side/site marked and visible. Sign Out: SIGN OUT (optional for EMERGENT procedures): Post-procedure follow-up management communicated and Plan of Care Visit completed when applicable. RD Reid DO documented in this encounter [facility] 02-08-2025 Note HNO ID: [id number] Author: RICHIE NEWMAN APRN.ELECTRONIC CALIBRATION TECHNICIAN Service: ? Author Type: Nurse Practitioner Type: Procedures Filed: 02/08/2025 15:29 Note Text: Santos is a 59 year old who presents today for an endometrial biopsy for thickening of endometrial lining. test: n/a UNIVERSAL PROTOCOL / SAFETY CHECKLIST Procedure to be Performed: Endometrial Biopsy Sign In: A Moment of CARE was completed. Appropriate PPE (Personal Protective Equipment) worn by all providers involved with the procedure. Special equipment not required. Patient/Surrogate Stated/Verified: Patient name, Date of , Relevant allergies, and The intended procedure Time Out: Relevant labs, photos, and/or imaging studies have been reviewed. Intended patient and procedure match the source document(s) (e.g. consent, HANDP, associated studies [imaging, pathology]) match the intended patient and procedure. Consent obtained and matches the intended procedure. Yes. Correct side/site is not applicable. Medications required for this procedure are not applicable. Fire risk assessed and is not applicable. Implants: are not applicable. Sign Out: Specimens not collected. All instruments, equipment, possible retained foreign bodies are accounted for. Yes. The post-procedure plan of care has been communicated to the patient or surrogate. PROCEDURE: EXTERNAL GENITALIA: Normal in appearance without lesions VAGINA: Normal in appearance without lesions BIOPSY: Speculum placed into the vagina with excellent visualization of the cervix. Cervix cleaned with betadine. Procedure was terminated as pelvic exam was very uncomfortable for patient and cervix was noted to be extremely stenotic. Procedure Summary: Patient tolerated procedure well. ASSESSMENT: thickening of endometrial lining PLAN: Pap done and cultures done. Follow up with physician to discuss hysteroscopy D+C Richie Newman APRN.ELECTRONIC CALIBRATION TECHNICIAN [facility] 02-08-2025 Procedure note Santos is a 59 year old who presents today for an endometrial biopsy for thickening of endometrial lining. test: n/a UNIVERSAL PROTOCOL / SAFETY CHECKLIST Procedure to be Performed: Endometrial Biopsy Sign In: A Moment of CARE was completed. Appropriate PPE (Personal Protective Equipment) worn by all providers involved with the procedure. Special equipment not required. Patient/Surrogate Stated/Verified: Patient name, Date of , Relevant allergies, and The intended procedure Time Out: Relevant labs, photos, and/or imaging studies have been reviewed. Intended patient and procedure match the source document(s) (e.g. consent, H&P, associated studies [imaging, pathology]) match the intended patient and procedure. Consent obtained and matches the intended procedure. Yes. Correct side/site is not applicable. Medications required for this procedure are not applicable. Fire risk assessed and is not applicable. Implants: are not applicable. Sign Out: Specimens not collected. All instruments, equipment, possible retained foreign bodies are accounted for. Yes. The post-procedure plan of care has been communicated to the patient or surrogate. PROCEDURE: EXTERNAL GENITALIA: Normal in appearance without lesions VAGINA: Normal in appearance without lesions BIOPSY: Speculum placed into the vagina with excellent visualization of the cervix. Cervix cleaned with betadine. Procedure was terminated as pelvic exam was very uncomfortable for patient and cervix was noted to be extremely stenotic. Procedure Summary: Patient tolerated procedure well. ASSESSMENT: thickening of endometrial lining PLAN: Pap done and cultures done. Follow up with physician to discuss hysteroscopy D+C Richie Newman APRN.ELECTRONIC CALIBRATION TECHNICIAN [facility] 02-08-2025 Procedure note Santos is a 59 year old who presents today for an endometrial biopsy for thickening of endometrial lining. test: n/a UNIVERSAL PROTOCOL / SAFETY CHECKLIST Procedure to be Performed: Endometrial Biopsy Sign In: A Moment of CARE was completed. Appropriate PPE (Personal Protective Equipment) worn by all providers involved with the procedure. Special equipment not required. Patient/Surrogate Stated/Verified: Patient name, Date of , Relevant allergies, and The intended procedure Time Out: Relevant labs, photos, and/or imaging studies have been reviewed. Intended patient and procedure match the source document(s) (e.g. consent, H&P, associated studies [imaging, pathology]) match the intended patient and procedure. Consent obtained and matches the intended procedure. Yes. Correct side/site is not applicable. Medications required for this procedure are not applicable. Fire risk assessed and is not applicable. Implants: are not applicable. Sign Out: Specimens not collected. All instruments, equipment, possible retained foreign bodies are accounted for. Yes. The post-procedure plan of care has been communicated to the patient or surrogate. PROCEDURE: EXTERNAL GENITALIA: Normal in appearance without lesions VAGINA: Normal in appearance without lesions BIOPSY: Speculum placed into the vagina with excellent visualization of the cervix. Cervix cleaned with betadine. Procedure was terminated as pelvic exam was very uncomfortable for patient and cervix was noted to be extremely stenotic. Procedure Summary: Patient tolerated procedure well. ASSESSMENT: thickening of endometrial lining PLAN: Pap done and cultures done. Follow up with physician to discuss hysteroscopy D+C Richie Newman APRN.ELECTRONIC CALIBRATION TECHNICIAN documented in this encounter [facility] 02-08-2025 Note HNO ID: [id number] Author: RICHIE NEWMAN APRN.ELECTRONIC CALIBRATION TECHNICIAN Service: ? Author Type: Nurse Practitioner Type: Progress Notes Filed: 02/08/2025 15:29 Note Text: Santos Allan is a 59 year old female who presents for problem visit to discuss ultrasound results. HPI: Santos had a pelvic ultrasound ordered by PCP for pelvic pain. It showed: Uterus: -Size: 5.8 x 2.8 x 3.5 cm -Orientation: Anteverted -Endometrial echo complex: Evaluation of the endometrium was adequate. Trace amount of free fluid is seen in the imaged upper canal. The endometrial echo complex measured 0.5 cm. -Cervix: Unremarkable. -Adenomyosis assessment: There are no sonographic findings of adenomyosis. -Fibroids: 2 fibroids visualized measuring 2.6 x 2.4 x 2.6 cm (anterior uterine body) and 1.5 x 1.0 x 1.2 cm (posterior uterine body). Right Ovary: Not seen. Left Ovary: Not seen. Free Fluid: Small free fluid is likely physiologic Still has intermittent right lower pain. Sharp. No bleeding. Menopause at age 55. OB History Gravida0 Para0 Term0 Preterm0 AB0 Living0 SAB0 IAB0 Ectopic0 Multiple0 Live Births0 Nursing Unit Manager History LMP: 02/13/2019 (Approximate), Postmenopausal Age at Menar[age] Age at First : Age at Menopause: Nursing Unit Manager History Comments: Sexual Activity: Not Currently; Male Contraception: No contraception data on record [...] Social History Tobacco Use Smoking status: Former Current packs/day: 0.00 Average packs/day: 0.5 packs/day for 20.0 years (10.0 ttl pk-yrs) Types: Cigarettes Start date: 06/14/1983 Quit date: 06/14/2003 Years since quittin.6 Passive exposure: Never Smokeless tobacco: Never Vaping Use Vaping status: Never Used Substance Use Topics Alcohol use: Yes Comment: social Drug use: No Current Outpatient Medications Medication Sig tirzepatide (MOUNJARO) 10 mg/0.5 mL pen injector Inject 10 mg subcutaneously one time a week. potassium chloride (K-TAB) 10 mEq tablet Take 1 tablet by mouth two times a day. sulfaSALAzine (AZULFIDINE) 500 mg tablet Take 1 tablet by mouth twice daily. aripiprazole (ABILIFY) 2 mg tablet Take 1 tablet by mouth twice daily. (Patient taking differently: Take 4 mg by mouth once daily.) phenazopyridine (PYRIDIUM) 100 mg tablet Take 2 tablets by mouth three times a day as needed. (Patient not taking: Reported on 02/08/2025) hydroCHLOROthiazide 12.5 mg capsule Take 1 capsule by mouth once daily. omeprazole (PRILOSEC) 20 mg capsule Take 1 capsule by mouth once daily. levothyroxine (SYNTHROID) 88 mcg tablet Take 1/2 tablet 3 days a week and whole tablet rest of the week. pravastatin (PRAVACHOL) 80 mg tablet Take 1 tablet by mouth once daily. gabapentin (NEURONTIN) 400 mg capsule Take 1 capsule by mouth three times a day for 180 days. cyanocobalamin, vitamin B-12, (VITAMIN B-12 ORAL) Take 5,000 mg by mouth every other day. MEDICATION, NON-DATABASE Alphalipoic metoprolol tartrate, short acting, (LOPRESSOR) 25 mg table (more content not included)... [facility] 02-08-2025 History of Present illness Narrative Santos Allan is a 59 year old female who presents for problem visit to discuss ultrasound results. HPI: Santos had a pelvic ultrasound ordered by PCP for pelvic pain. It showed: Uterus: -Size: 5.8 x 2.8 x 3.5 cm -Orientation: Anteverted -Endometrial echo complex: Evaluation of the endometrium was adequate. Trace amount of free fluid is seen in the imaged upper canal. The endometrial echo complex measured 0.5 cm. -Cervix: Unremarkable. -Adenomyosis assessment: There are no sonographic findings of adenomyosis. -Fibroids: 2 fibroids visualized measuring 2.6 x 2.4 x 2.6 cm (anterior uterine body) and 1.5 x 1.0 x 1.2 cm (posterior uterine body). Right Ovary: Not seen. Left Ovary: Not seen. Free Fluid: Small free fluid is likely physiologic Still has intermittent right lower pain. Sharp. No bleeding. Menopause at age 55. OB History Gravida0 Para0 Term0 Preterm0 AB0 Living0 SAB0 IAB0 Ectopic0 Multiple0 Live Births0 Nursing Unit Manager History LMP: 02/13/2019 (Approximate), Postmenopausal Age at Menarche: [age] Age at First : Age at Menopause: Nursing Unit Manager History Comments: Sexual Activity: Not Currently; Male Contraception: No contraception data on record [...] non malignant TONSILLECTOMY PRIMARY/SECONDARY <AGE 12 Tonsillectomy FAMILY HISTORY Problem Relation Age of Onset Diabetes Mother Hypertension Mother Psychiatry Mother bipolar Breast Cancer Mother Cancer Mother breast, uterus/bone Lipids Mother Diabetes Father Hypertension Father Osteoporosis Father Colon Cancer Father Stroke Father Lipids Father Headache Father Hypertension Brother Lipids Brother Headache Brother Diabetes Brother Social History Tobacco Use Smoking status: Former Current packs/day: 0.00 Average packs/day: 0.5 packs/day for 20.0 years (10.0 ttl pk-yrs) Types: Cigarettes Start date: 06/14/1983 Quit date: 06/14/2003 Years since quittin.6 Passive exposure: Never Smokeless tobacco: Never Vaping Use Vaping status: Never Used Substance Use Topics Alcohol use: Yes Comment: social Drug use: No Current Outpatient Medications Medication Sig tirzepatide (MOUNJARO) 10 mg/0.5 mL pen injector Inject 10 mg subcutaneously one time a week. potassium chloride (K-TAB) 10 mEq tablet Take 1 tablet by mouth two times a day. sulfaSALAzine (AZULFIDINE) 500 mg tablet Take 1 tablet by mouth twice daily. aripiprazole (ABILIFY) 2 mg tablet Take 1 tablet by mouth twice daily. (Patient taking differently: Take 4 mg by mouth once daily.) phenazopyridine (PYRIDIUM) 100 mg tablet Take 2 tablets by mouth three times a day as needed. (Patient not taking: Reported on 02/08/2025) hydroCHLOROthiazide 12.5 mg capsule Take 1 capsule by mouth once daily. omeprazole (PRILOSEC) 20 mg capsule Take 1 capsule by mouth once daily. levothyroxine (SYNTHROID) 88 mcg tablet Take 1/2 tablet 3 days a week and whole tablet rest of the week. pravastatin (PRAVACHOL) 80 mg tablet Take 1 tablet by mouth once daily. gabapentin (NEURONTIN) 400 mg capsule Take 1 capsule by mouth three times a day for 180 days. cyanocobalamin, vitamin B-12, (VITAMIN B-12 ORAL) Take 5,000 mg by mouth every other day. MEDICATION, NON-DATABASE Alphalipoic metoprolol tartrate, short acting, (LOPRESSOR) 25 mg tablet Take 0.5 tablets by mouth once daily. eletriptan (RELPAX) 20 mg tablet Take 1 at start of headache, may repeat in 2 hours if necessary (total of 3 tablets) lisinopril (ZESTRIL) 20 mg tablet Take 1 tablet by mouth twice daily. (Patient taking differently: Take 20 mg by mouth once daily.) CPAP/BIPAP/OTHER BiPAP 25/20 cmH2O. [facility]. Type .CPAPSettings into a note to see current settings/supplies/DME information. CPAP Bilevel 25/20 cmH2O, Resmed F20 FFM (small), Ti max 2.0, Ti min 0.3, Trigger medium, Cycle medium, HUMIDITY, LIFETIME SUPPLIES. leflunomide (ARAVA) 10 mg tablet Take 2 tablets by mouth once daily. cyclobenzaprine (FLEXERIL) 10 mg tablet Take 1 tablet by mouth three times daily. Cholecalciferol, Vitamin D3, (VITAMIN D) 1,000 unit tab Take 1,000 Units by mouth once daily. cevimeline (EVOXAC) 30 mg ORAL capsule Take 60 mg by mouth twice daily. citalopram hydrobromide(CELEXA 20 MG TAB) Take 1.5 tablet daily. sodium fluoride/pot nitrate(PREVIDENT 5000 SENSITIVE 1.1 %-5 % DENTAL PASTE) No current facility-administered medications for this visit. Allergies As of Date: 02/08/2025 Allergen Noted Reaction HYDROCODONE-ACETAMINOPHEN 08/24/2019 Itching IMITREX [SUMATRIPTAN] 07/25/2007 PREDNISONE 09/05/2024 Mental Status Change Fully Assessed 02/08/2025 REVIEW OF SYSTEMS Expanded ROS: RUGBY LEAGUE FOOTBALLER: + pelvic pain Allergies and current medication updated:Yes SENSITIVE EXAM: The sensitive examination was discussed with the Patient or Patient's Authorized Jumpbasting Collar Baster. As applicable, any other physician, advance practice provider, medical student, or other health professional student that will be observing or involved in the sensitive examination for educational or training purposes was discussed with the Patient or Authorized Jumpbasting Collar Baster. The Patient or Authorized Jumpbasting Collar Baster has agreed to proceed with the sensitive examination. (Sensitive examination includes inspection and/or palpation of the breasts, pelvis, prostate and anorectal regions). EXAM: Wt 181 lb (82.1kg) LMP 02/13/2019 GENERAL: pleasant, female in no apparent distress HEENT: Normocephalic, atraumatic, mucus membranes moist, and no lesions CHEST: Normal inspiratory effort PELVIC: external genitalia atrophic, normal Bartholin's glands, urethra, Fouke's glands, no vulvar lesions, no cervical lesions, + stenotic cervix, good vaginal support, + copious amount of thin yellow fluid, normal appearing perineal body and perianal region NEURO: alert and oriented x3,exam grossly non-focal EXTREMITIES: normal ASSESSMENT AND PLAN: Pelvic pain in female - ICD9: 625.9, ICD10: R10.2 (primary diagnosis) Thickened endometrium - ICD9: 793.5, ICD10: R93.89 - Based on thickened endometrium and fluid noted, as well as pain, would recommend EMB - EMB attempted, but pelvic exam very uncomfortable for patient and cervix stenotic so unsuccessful Vaginal discharge - ICD9: 623.5, ICD10: N89.8 - JOSEE/TRICHOMONAS NAAT - BACTERIAL VAGINOSIS NAAT Screening for HPV (human papillomavirus) - ICD9: V73.81, ICD10: Z11.51 Screening for cervical cancer - ICD9: V76.2, ICD10: Z12.4 - Pap done Will await pap and vaginal culture results. Would recommend endometrial sampling. Consider hysteroscopy D+C. Would recommend vaginal estrogen use prior to procedure as cervix is stenotic. Schedule virtual follow up with surgeon to discuss. Richie Newman APRN.CNP Medical Decision Making: Problems: Moderate: New problem with uncertain prognosis Data: Unique test result(s) reviewed: 1 Unique test(s) ordered: 3+ Risk: Minimal: Minimal risk from testing/treatment Medical Decision Making Level: 4 - Moderate documented in this encounter [facility] 02-08-2025 Telephone encounter Note Patient [employer] message requesting the following refill Refill(s) Requested: Requested Prescriptions Pending Prescriptions Disp Refills eletriptan (RELPAX) 20 mg tablet 14 tablet 5 Sig: Take 1 at start of headache, may repeat in 2 hours if necessary (total of 3 tablets) potassium chloride (K-TAB) 10 mEq tablet 90 tablet 2 Sig: Take 1 tablet by mouth two times a day. ALLERGIES Allergen Reactions Gabapentin Swelling Hydrocodone-Acetami* Itching Imitrex [Sumatripta* Face went numb Prednisone Mental Status Change (home) [phone] (work) [phone] (cell) Last Office Visit Date: 01/25/2025 Last Distance Health Visit: 04/03/2024 Future Appointment: 03/12/2025 The patients preferred pharmacy has been captured for this encounter? yes Request is for script(s) to be escript to pharmacy. Kristina Law LPN [facility] 02-08-2025 Miscellaneous Notes Patient [employer] message requesting the following refill Refill(s) Requested: Requested Prescriptions Pending Prescriptions Disp Refills eletriptan (RELPAX) 20 mg tablet 14 tablet 5 Sig: Take 1 at start of headache, may repeat in 2 hours if necessary (total of 3 tablets) potassium chloride (K-TAB) 10 mEq tablet 90 tablet 2 Sig: Take 1 tablet by mouth two times a day. ALLERGIES Allergen Reactions Gabapentin Swelling Hydrocodone-Acetami* Itching Imitrex [Sumatripta* Face went numb Prednisone Mental Status Change (home) [phone] (work) [phone] (cell) Last Office Visit Date: 01/25/2025 Last Distance Health Visit: 04/03/2024 Future Appointment: 03/12/2025 The patients preferred pharmacy has been captured for this encounter? yes Request is for script(s) to be escript to pharmacy. Kristina Law LPN documented in this encounter [facility] 02-06-2025 History of Present illness Narrative Radiology Service Progress Note PATIENT NAME: Santos Allan DATE OF SERVICE: February 06, 2025 TIME: 10:28 AM PATIENT IDENTITY VERIFICATION COMPLETED USING TWO (2) IDENTIFIERS: Name and Date of confirmed by patient verbally. FALL SCREENING: Has the patient had 2 falls in the last year or 1 fall with injury or currently using an Ambulatory Assistive Device (Walker, Cane, Wheelchair, Crutches, etc.)? No PATIENT GENDER DATA: Assigned female at . status: : No status: NO. PATIENT RELEVANT IMPLANT DATA REVIEWED: Not Applicable PATIENT PRESENTS WITH AN IMPLANTABLE OR ATTACHED SMOG TECHNICIAN: No RADIOLOGY DEPARTMENT: Ultrasound PERIPHERAL IV DATA: Not applicable SIGNED BY: Leola Siu RDMS February 06, 2025 10:28 AM documented in this encounter [facility] 02-06-2025 Note HNO ID: [id number] Author: LEOLA SIU RDMS Service: ? Author Type: Crab Fisherman Type: Progress Notes Filed: 02/06/2025 10:28 Note Text: Radiology Service Progress Note PATIENT NAME: Santos Allan DATE OF SERVICE: February 06, 2025 TIME: 10:28 AM PATIENT IDENTITY VERIFICATION COMPLETED USING TWO (2) IDENTIFIERS: Name and Date of confirmed by patient verbally. FALL SCREENING: Has the patient had 2 falls in the last year or 1 fall with injury or currently using an Ambulatory Assistive Device (Walker, Cane, Wheelchair, Crutches, etc.)? No PATIENT GENDER DATA: Assigned female at . status: : No status: NO. PATIENT RELEVANT IMPLANT DATA REVIEWED: Not Applicable PATIENT PRESENTS WITH AN IMPLANTABLE OR ATTACHED SMOG TECHNICIAN: No RADIOLOGY DEPARTMENT: Ultrasound PERIPHERAL IV DATA: Not applicable SIGNED BY: Leola Siu RDMS February 06, 2025 10:28 AM [facility] 01-29-2025 Telephone encounter Note Images from the original note were not included. Prior authorization approved Payer: [facility] [employer] [facility] [phone] Note from payer: CaseId:[id number];Status:Approved;Review Type:Prior Auth;Coverage Start Date:01/24/2025;Coverage End Date:01/29/2026; Approval Details Authorized from January 24, 2025 to January 29, 2026 Electronic appeal: Not supported View History Medication Being Authorized tirzepatide (MOUNJARO) 10 mg/0.5 mL pen injector Inject 10 mg subcutaneously one time a week. Dispense: 6 mL Refills: 1 Start: 01/23/2025 End: 07/22/2025 Class: Normal Diagnoses: Type 2 diabetes mellitus with unspecified complications (HCC), Class 2 obesity due to excess calories without serious comorbidity with body mass index (BMI) of 39.0 to 39.9 in adult, Obstructive sleep apnea syndrome This order has been released to its destination. To be filled at: [facility] - [place], [place] [id number] - [address] [facility] [phone] Pt notified via my chart. [facility] 01-29-2025 Miscellaneous Notes Images from the original note were not included. Prior authorization approved Payer: [facility] [phone] Note from payer: CaseId:[id number];Status:Approved;Review Type:Prior Auth;Coverage Start Date:01/24/2025;Coverage End Date:01/29/2026; Approval Details Authorized from January 24, 2025 to January 29, 2026 Electronic appeal: Not supported View History Medication Being Authorized tirzepatide (MOUNJARO) 10 mg/0.5 mL pen injector Inject 10 mg subcutaneously one time a week. Dispense: 6 mL Refills: 1 Start: 01/23/2025 End: 07/22/2025 Class: Normal Diagnoses: Type 2 diabetes mellitus with unspecified complications (HCC), Class 2 obesity due to excess calories without serious comorbidity with body mass index (BMI) of 39.0 to 39.9 in adult, Obstructive sleep apnea syndrome This order has been released to its destination. To be filled at: [facility] - [place], [place] [id number] - [address] [facility] [phone] Pt notified via my chart. Fax PA rec'd from [facility]. This was completed and faxed back to the pharmacy on the form along with records as they were asking for. documented in this encounter [facility] 01-27-2025 Telephone encounter Note Phoned patient went over results, notes from Fior Alvarez OUTSIDE PLANT TECHNICIAN with understanding. Assisted with transfer to nursing scheduler to get ultrasound appt set up. [facility] 01-27-2025 Miscellaneous Notes Phoned patient went over results, notes from Fior Alvarez OUTSIDE PLANT TECHNICIAN with understanding. Assisted with transfer to nursing scheduler to get ultrasound appt set up. Fibroid cyst noted in the uterus that should further be evaluated by ultrasound. This has been ordered. Continue with antibiotic as the bladder wall has some thickening. Follow up if pain does not improve. Thank you Fior Alvarez APRN.CNP documented in this encounter [facility] 01-26-2025 Telephone encounter Note Fibroid cyst noted in the uterus that should further be evaluated by ultrasound. This has been ordered. Continue with antibiotic as the bladder wall has some thickening. Follow up if pain does not improve. Thank you Fior Alvarez APRN.ELECTRONIC CALIBRATION TECHNICIAN [facility] 01-26-2025 History of Present illness Narrative Radiology Service Progress Note DATE OF SERVICE: January 26, 2025 TIME: 8:10 AM PATIENT IDENTITY VERIFICATION COMPLETED USING TWO (2) STANDARD IDENTIFIERS: Name and Date of confirmed by patient verbally. FALL SCREENING: Has the patient had 2 falls in the last year or 1 fall with injury or currently using an Ambulatory Assistive Device (Walker, Cane, Wheelchair, Crutches, etc.)? No PATIENT GENDER DATA: Assigned female at . status: : No status: NO. PATIENT RELEVANT IMPLANT DATA REVIEWED: Not Applicable PATIENT PRESENTS WITH AN IMPLANTABLE OR ATTACHED SMOG TECHNICIAN: No ALLERGIES: Reviewed and unchanged CONTRAST ALLERGY: NO. EXAM: CT -CONTRAST INDUCED NEPHROPATHY RISK FACTORS: Not applicable CREATININE: Creatinine Date Value Ref Range Status 01/25/2025 0.52 (L) 0.58 - 0.96 mg/dL Final 08/11/2024 0.78 0.58 - 0.96 mg/dL Final 04/27/2024 0.63 0.58 - 0.96 mg/dL Final Estimated Glomerular Filtration Rate Date Value Ref Range Status 01/25/2025 109 >=60 mL/min/1.73m Final Comment: Estimated Glomerular Filtration Rate (eGFR) is calculated using the 2020 CKD-EPI creatinine equation. This equation utilizes serum creatinine, sex, and age as parameters. The creatinine assay has traceable calibration to isotope dilution-mass spectrometry. Refer to KDIGO guidelines for clinical interpretation. In patients with unstable renal function, e.g. those with acute kidney injury, the eGFR may not accurately reflect actual GFR. eGFR- Date Value Ref Range Status 09/11/2021 >60 Final P.O.C.T. RESULTS: N/A January 26, 2025 TREATMENT: N/A PERIPHERAL IV DATA: Ambulatory: A peripheral IV was started in the Right upper extremity antecubital site with a Angio cath: 22 gauge. RADIOLOGY DEPARTMENT: CT; Exam(s) Completed: Abdomen/Pelvis SIGNATURE: DWAYNE Yeboah PATIENT NAME: Santos Allan DATE: January 26, 2025 TIME: 8:10 AM documented in this encounter [facility] 01-26-2025 Note HNO ID: [id number] Author: DARIAN JOSHI CT Service: Radiology Author Type: Technologist Type: Progress Notes Filed: 01/26/2025 08:10 Note Text: Radiology Service Progress Note DATE OF SERVICE: January 26, 2025 TIME: 8:10 AM PATIENT IDENTITY VERIFICATION COMPLETED USING TWO (2) STANDARD IDENTIFIERS: Name and Date of confirmed by patient verbally. FALL SCREENING: Has the patient had 2 falls in the last year or 1 fall with injury or currently using an Ambulatory Assistive Device (Walker, Cane, Wheelchair, Crutches, etc.)? No PATIENT GENDER DATA: Assigned female at . status: : No status: NO. PATIENT RELEVANT IMPLANT DATA REVIEWED: Not Applicable PATIENT PRESENTS WITH AN IMPLANTABLE OR ATTACHED SMOG TECHNICIAN: No ALLERGIES: Reviewed and unchanged CONTRAST ALLERGY: NO. EXAM: CT -CONTRAST INDUCED NEPHROPATHY RISK FACTORS: Not applicable CREATININE: Creatinine Date Value Ref Range Status 01/25/2025 0.52 (L) 0.58 - 0.96 mg/dL Final 08/11/2024 0.78 0.58 - 0.96 mg/dL Final 04/27/2024 0.63 0.58 - 0.96 mg/dL Final Estimated Glomerular Filtration Rate Date Value Ref Range Status 01/25/2025 109 >=60 mL/min/1.73m? Final Comment: Estimated Glomerular Filtration Rate (eGFR) is calculated using the 2020 CKD-EPI creatinine equation. This equation utilizes serum creatinine, sex, and age as parameters. The creatinine assay has traceable calibration to isotope dilution-mass spectrometry. Refer to KDIGO guidelines for clinical interpretation. In patients with unstable renal function, e.g. those with acute kidney injury, the eGFR may not accurately reflect actual GFR. eGFR- Date Value Ref Range Status 09/11/2021 >60 Final P.O.C.T. RESULTS: N/A January 26, 2025 TREATMENT: N/A PERIPHERAL IV DATA: Ambulatory: A peripheral IV was started in the Right upper extremity antecubital site with a Angio cath: 22 gauge. RADIOLOGY DEPARTMENT: CT; Exam(s) Completed: Abdomen/Pelvis SIGNATURE: DWAYNE Yeboah PATIENT NAME: Santos Allan DATE: January 26, 2025 TIME: 8:10 AM [facility] 01-25-2025 Note HNO ID: [id number] Author: FIOR ALVAREZ APRN.ELECTRONIC CALIBRATION TECHNICIAN Service: ? Author Type: Nurse Practitioner Type: Progress Notes Filed: 01/25/2025 15:30 Note Text: CC: Patient presents with: Abdominal Pain: Abdominal pain HPI Santos Allan is a 59 year old female who presents today for abdominal pain. Recording using [employer] software for draft documentation of the visit was discussed with the patient/authorized customer relations representative; all questions welcomed and answered. Patient/authorized customer relations representative agreed to proceed Lower Abdominal Pain and Dysuria: - at start of appointment all pain was referred to as Lower abdominal pain until the assessment the RLQ pain was not noticed. - Onset of lower abdominal pain and dysuria began last Wednesday. - Performed an at-home urine test on Wednesday. - Denies fever or chills; has been monitoring temperature. - Contacted urgent care and was prescribed Macrobid, completed yesterday. - Today, experienced severe lower abdominal pain while urinating, described as cramping and jarring. States pain was extremely intense and has continued to persist even after urination which is different then with UTI - Denies hematuria, dark urine, nausea, emesis, or abnormal vaginal discharge. - Denies current menses. - No history of diverticulitis or diverticulosis. - No known history of ovarian cysts; one previous cyst resolved spontaneously. IBS-D: - Chronic diarrhea, managed with dietary modifications. REVIEW OF SYSTEMS General: no fevers, no chills, no night sweats, no recurrent infections, no change in appetite, no change in energy, and no significant changes in weight Respiratory: no cough, no wheezing, no shortness of breath, no hemoptysis Cardiovascular: no chest pain, no chest pressure, no palpitations, and no swelling PAST MEDICAL HISTORY Diagnosis Date Acid reflux [...] - non malignant TONSILLECTOMY PRIMARY/SECONDARY Tonsillectomy ALLERGIES Gabapentin, Hydrocodone-Acetaminophen, Imitrex [Sumatriptan], and Prednisone MEDICATIONS nitrofurantoin monohydrate and macrocrystal (MACROBID) 100 mg capsule Take 1 capsule by mouth two times a day for 2 days. phenazopyridine (PYRIDIUM) 100 mg tablet Take 2 tablets by mouth three times a day as needed. enteric contrast (will be provided with radiology test) For CT ABD/PEL W IVCON Routine order Administer, As Directed One Time Only, via Oral, Rectal, both Oral and Rectal, Enteric Tube, Stoma or Indwelling Catheter, Enteric Contrast as designated per enteric contrast guidelines iv contrast (will be provided with radiology test) CT ABD/PEL -Inject, intravenously, once for 1 dose.No IV access, insert saline lock prior to the beginning of sedation, infusion, injection of imaging exam. Discontinue saline lock post exam. If Pt. has a central line or IVAD, may access for administration according to line specific nursing protocol. Once exam is complete flush line and de-access according to line specific nursing protocol in the CT contrast administration guidelines link. tirzepatide (MOUNJARO) 10 mg/0.5 mL pen injector Inject 10 mg subcutaneously one time a week. hydroCHLOROthiazide 12.5 mg capsule Take 1 capsule by mouth once daily. omeprazole (PRILOSEC) 20 mg capsule Take 1 capsule by mouth once daily. potassium chloride (K-TAB) 10 mEq tablet Take 1 tablet by mouth two times a day. levothyroxine (SYNTHROID) 88 mcg tablet Take 1/2 tablet 3 days a week and whole tablet rest of the week. pravastatin (P (more content not included)... [facility] 01-25-2025 History of Present illness Narrative CC: Patient presents with: Abdominal Pain: Abdominal pain HPI Santos Allan is a 59 year old female who presents today for abdominal pain. Recording using [employer] software for draft documentation of the visit was discussed with the patient/authorized customer relations representative; all questions welcomed and answered. Patient/authorized customer relations representative agreed to proceed Lower Abdominal Pain and Dysuria: - at start of appointment all pain was referred to as Lower abdominal pain until the assessment the RLQ pain was not noticed. - Onset of lower abdominal pain and dysuria began last Wednesday. - Performed an at-home urine test on Wednesday. - Denies fever or chills; has been monitoring temperature. - Contacted urgent care and was prescribed Macrobid, completed yesterday. - Today, experienced severe lower abdominal pain while urinating, described as cramping and jarring. States pain was extremely intense and has continued to persist even after urination which is different then with UTI - Denies hematuria, dark urine, nausea, emesis, or abnormal vaginal discharge. - Denies current menses. - No history of diverticulitis or diverticulosis. - No known history of ovarian cysts; one previous cyst resolved spontaneously. IBS-D: - Chronic diarrhea, managed with dietary modifications. REVIEW OF SYSTEMS General: no fevers, no chills, no night sweats, no recurrent infections, no change in appetite, no change in energy, and no significant changes in weight Respiratory: no cough, no wheezing, no shortness of breath, no hemoptysis Cardiovascular: no chest pain, no chest pressure, no palpitations, and no swelling PAST MEDICAL HISTORY Diagnosis Date Acid reflux [...] malignant TONSILLECTOMY PRIMARY/SECONDARY <AGE 12 Tonsillectomy ALLERGIES Gabapentin, Hydrocodone-Acetaminophen, Imitrex [Sumatriptan], and Prednisone MEDICATIONS nitrofurantoin monohydrate and macrocrystal (MACROBID) 100 mg capsule Take 1 capsule by mouth two times a day for 2 days. phenazopyridine (PYRIDIUM) 100 mg tablet Take 2 tablets by mouth three times a day as needed. enteric contrast (will be provided with radiology test) For CT ABD/PEL W IVCON Routine order Administer, As Directed One Time Only, via Oral, Rectal, both Oral and Rectal, Enteric Tube, Stoma or Indwelling Catheter, Enteric Contrast as designated per enteric contrast guidelines iv contrast (will be provided with radiology test) CT ABD/PEL -Inject, intravenously, once for 1 dose.No IV access, insert saline lock prior to the beginning of sedation, infusion, injection of imaging exam. Discontinue saline lock post exam. If Pt. has a central line or IVAD, may access for administration according to line specific nursing protocol. Once exam is complete flush line and de-access according to line specific nursing protocol in the CT contrast administration guidelines link. tirzepatide (MOUNJARO) 10 mg/0.5 mL pen injector Inject 10 mg subcutaneously one time a week. hydroCHLOROthiazide 12.5 mg capsule Take 1 capsule by mouth once daily. omeprazole (PRILOSEC) 20 mg capsule Take 1 capsule by mouth once daily. potassium chloride (K-TAB) 10 mEq tablet Take 1 tablet by mouth two times a day. levothyroxine (SYNTHROID) 88 mcg tablet Take 1/2 tablet 3 days a week and whole tablet rest of the week. pravastatin (PRAVACHOL) 80 mg tablet Take 1 tablet by mouth once daily. gabapentin (NEURONTIN) 400 mg capsule Take 1 capsule by mouth three times a day for 180 days. cyanocobalamin, vitamin B-12, (VITAMIN B-12 ORAL) Take 5,000 mg by mouth every other day. MEDICATION, NON-DATABASE Alphalipoic metoprolol tartrate, short acting, (LOPRESSOR) 25 mg tablet Take 0.5 tablets by mouth once daily. eletriptan (RELPAX) 20 mg tablet Take 1 at start of headache, may repeat in 2 hours if necessary (total of 3 tablets) lisinopril (ZESTRIL) 20 mg tablet Take 1 tablet by mouth twice daily. (Patient taking differently: Take 20 mg by mouth once daily.) CPAP/BIPAP/OTHER BiPAP 25/20 cmH2O. [employer]. Type .CPAPSettings into a note to see current settings/supplies/DME information. CPAP Bilevel 25/20 cmH2O, Resmed F20 FFM (small), Ti max 2.0, Ti min 0.3, Trigger medium, Cycle medium, HUMIDITY, LIFETIME SUPPLIES. leflunomide (ARAVA) 10 mg tablet Take 2 tablets by mouth once daily. cyclobenzaprine (FLEXERIL) 10 mg tablet Take 1 tablet by mouth three times daily. Cholecalciferol, Vitamin D3, (VITAMIN D) 1,000 [...] Social History Tobacco Use Smoking status: Former Current packs/day: 0.00 Average packs/day: 0.5 packs/day for 20.0 years (10.0 ttl pk-yrs) Types: Cigarettes Start date: 06/14/1983 Quit date: 06/14/2003 Years since quittin.6 Passive exposure: Never Smokeless tobacco: Never Vaping Use Vaping status: Never Used Substance Use Topics Alcohol use: Yes Comment: social Drug use: No PHYSICAL EXAM BP 134/94 Pulse 87 Resp 16 Wt 84.4 kg (186 lb) LMP 02/13/2019 (Approximate) SpO2 98% BMI 29.82 kg/m General Appearance: well appearing, in no acute distress, alert Eyes: conjunctiva pink and moist, no icterus, sclera white, non-injected Lungs: Lungs clear to auscultation. No wheezing, rhonchi, rales. Heart: RRR without murmur, gallop, or rubs. No ectopy Abdomen: Abdomen soft, Bowel sounds normal. No masses, organomegaly. Exquisite tenderness with grimacing and guarding to RLQ. No rebound pain or rigidity noted. No other tenderness reported. No pain with jumping or other jarring of abdomen. Health maintenance reviewed with patient: BP Controlled (<130/80) Never done Hepatitis B Vaccine(1 of 3 - 19+ 3-dose series) Never done Dilated Retinal Exam due on 11/30/2015 Cervical Cancer Screening due on 06/15/2020 Covid-19 Vaccine(8 - Pfizer risk 2023- season) due on 11/25/2024 LDL Cholesterol due on 04/27/2025 Depression Screening due on 05/09/2025 Anxiety Screening due on 05/09/2025 Pneumococcal Vaccine: 50+(3 of 3 - PCV) due on 05/09/2025 HbA1C due on 07/25/2025 Mammogram Screening due on 10/20/2025 Urine Albumin:Creatinine Ratio due on 11/10/2025 Diabetic Foot Exam due on 11/10/2025 Annual PCP Team Chronic Disease Visit due on 01/25/2026 DTaP,Tdap,Td Vaccine(3 - Td or Tdap) due on 07/03/2027 Colorectal Cancer Screening due on 04/17/2031 Influenza Vaccine Completed Hepatitis C Screening Completed HIV Screening Completed Shingrix Vaccine Completed DATA REVIEWED: No new labs Assessment/Plan 1. Lower abdominal pain (R10.30) 2. Right lower quadrant abdominal pain (R10.31) - Severe tenderness noted in the right lower quadrant during physical examination, without rebound tenderness or pain on jumping test. - Differential diagnosis includes appendicitis, though clinical presentation is atypical. - with the severity of the tenderness , discussion of patient going to the ER was brought up. Patient declined as her other symptoms and assessment were normal. In agreement to do blood work and STAT CT as outpt to evaluate for possible appendicitis and if any change, worsening of pain, or new symptom, she will directly to ER. - Ordered CT abdomen with contrast to further evaluate the cause of pain. - Ordered stat blood work to assess kidney function and blood counts; results will determine urgency of CT scan. - Advised patient to go to the ER if pain worsens or if fever, nausea, or vomiting develop. - Follow-up appointment scheduled in one week to reassess pain; patient instructed to cancel if symptoms resolve completely. 3. Urinary tract infection without hematuria, site unspecified (N39.0) - Initial symptoms included dysuria and lower abdominal pain; completed a course of Macrobid. - Urine dipstick test performed to check for hematuria and other abnormalities; no blood detected, reducing concern for nephrolithiasis. - Prescribed additional two days of Macrobid 100 mg BID to ensure complete resolution of infection. - Prescribed Pyridium 200 mg TID prn for bladder wall relaxation and pain relief; advised patient about potential side effects, including orange discoloration of urine and possible allergic reaction. - Patient understands and agrees with the treatment plan. Will start this if workup is negative for appendicitis or any other concern. Prescription instructions reviewed with patient as applicable. Potential red flag symptoms discussed with the patient. Reviewed appropriate action plan to take if red flag symptoms occur. Patient agreeable to treatment plan. Fior Alvarez APRN.CNP documented in this encounter [facility] 01-25-2025 Instructions Fior Alvarez APRN.CNP - 01/25/2025 10:23 AM EDT Continue Macrobid: Take 1 pill twice a day for an additional 2 days as prescribed to complete your antibiotic course. Begin taking Pyridium as prescribed to relieve bladder pain; take 1 pill up to 3 times a day as needed. If you experience any itching, do not take Pyridium. Note that Pyridium may turn your urine orange--wear clothing you don t mind staining. Blood work and CT (including kidney function and blood counts) has been ordered today; Monitor your symptoms--if your lower right abdominal pain worsens or you develop fever, nausea, vomiting, or any new severe symptoms, please go immediately to the ER. Please return for a follow-up visit next week to assess your progress documented in this encounter [facility] 01-24-2025 Telephone encounter Note Fax PA rec'd from [facility]. This was completed and faxed back to the pharmacy on the form along with records as they were asking for. [facility] 01-23-2025 Telephone encounter Note Rx new dose for Ana Mascorro MD [facility] 01-23-2025 Miscellaneous Notes Rx new dose for Ana Mascorro MD documented in this encounter [facility] 01-22-2025 History of Present illness Narrative Radiology Service Progress Note PATIENT NAME: Santos Allan DATE OF SERVICE: January 22, 2025 TIME: 4:07 PM PATIENT IDENTITY VERIFICATION COMPLETED USING TWO (2) IDENTIFIERS: Name and Date of confirmed by patient verbally. FALL SCREENING: Has the patient had 2 falls in the last year or 1 fall with injury or currently using an Ambulatory Assistive Device (Walker, Cane, Wheelchair, Crutches, etc.)? No PATIENT GENDER DATA: Assigned female at . status: : No status: NO. PATIENT RELEVANT IMPLANT DATA REVIEWED: Yes PATIENT PRESENTS WITH AN IMPLANTABLE OR ATTACHED SMOG TECHNICIAN: No RADIOLOGY DEPARTMENT: General X-ray: Exam(s) Completed: Spine X-Ray(s): Cervical AP / LAT / OBL and Lumbar AP / LAT / L5-S1 PERIPHERAL IV DATA: Not applicable SIGNED BY: RT Amy(Jordan) January 22, 2025 4:07 PM documented in this encounter [facility] 01-22-2025 Note HNO ID: [id number] Author: JOSEPH PEREZ RT(R) Service: ? Author Type: Crab Fisherman Type: Progress Notes Filed: 01/22/2025 16:22 Note Text: Radiology Service Progress Note PATIENT NAME: Santos Allan DATE OF SERVICE: January 22, 2025 TIME: 4:07 PM PATIENT IDENTITY VERIFICATION COMPLETED USING TWO (2) IDENTIFIERS: Name and Date of confirmed by patient verbally. FALL SCREENING: Has the patient had 2 falls in the last year or 1 fall with injury or currently using an Ambulatory Assistive Device (Walker, Cane, Wheelchair, Crutches, etc.)? No PATIENT GENDER DATA: Assigned female at . status: : No status: NO. PATIENT RELEVANT IMPLANT DATA REVIEWED: Yes PATIENT PRESENTS WITH AN IMPLANTABLE OR ATTACHED SMOG TECHNICIAN: No RADIOLOGY DEPARTMENT: General X-ray: Exam(s) Completed: Spine X-Ray(s): Cervical AP / LAT / OBL and Lumbar AP / LAT / L5-S1 PERIPHERAL IV DATA: Not applicable SIGNED BY: RT Amy(R) January 22, 2025 4:07 PM [facility] 01-22-2025 Instructions Lucille Brandt PA-C - 01/22/2025 7:50 AM EDT Get labs drawn, no need of fasting -Schedule Xray of neck and back -Schedule EMG: Please call the [facility] call center at [phone] to make your EMG testing appointment at one of the following locations: [facility] and [facility] ([place]). Please make sure that your test is scheduled at one of the above locations. -follow up after work up is completed, encourage in person visit to aid detailed neuro and sensory exam documented in this encounter [facility] 01-22-2025 History of Present illness Narrative Images from the original note were not included. [facility] for General Neurology New Patient Evaluation This visit was conducted via virtual platform. Patient was identified by name and and consented to the video evaluation and its limitations. Based on this evaluation it may be necessary for them to schedule a follow up evaluation with me or other neurologists for formal physical examination and if necessary, other studies I have communicated my name and active licensure. The patient's identity and physical location were verified at the time of this visit. Either the patient or their legal customer relations representative has been informed of the risks and benefits of -- and alternatives to -- treatment through a remote evaluation and consents to proceed with the evaluation remotely. Confirmed verbally that the [facility]Yes Confirmed verbally that the patient consents to being seen virtually today.Yes Confirmed verbally that the patient consents to being seen by a physician bus assistant.Yes CHIEF COMPLAINT: Neuropathy, luz Christinaleena patient Santos Allan is a 58 year old right-handed female with a history of HTN, DM type 2 (in 30s then had bariatric surgery) currently non diabetic, HLD, bipolar 1, anxiety, anemia, sjogrens, hypothyroidism, REMIGIO. S/p cervical decompression surgery x 2 at [facility] 2019 She is unaccompanied Last visit with Luz Meeks was 07/18/2024 HPI: As per chart review: Seen by General neurology: Luznena Meeks:07/18/2024: Santos Allan is a 58 year old right-handed female with a history of HTN, DM type 2 (in 30s then had bariatric surgery), HLD, bipolar 1, anxiety, anemia, sjogrens, hypothyroidism, REMIGIO . Her examination demonstrates decreased sensation to her feet, intact strength and reflexes in BLE. Patient with around 2 years of constant numbness and tingling of her feet bilaterally. Started while she was on Topamax but continued even when she stopped it 6 months ago. Patient does have signs and symptoms of neuropathy in her lower extremities, did have an EMG done in September that was negative for any signs of neuropathy but did show S1 Radiculopathy. Has been following with pain management and had an ablation in her lumbar spine which did not help her feet. Symptoms are primarily to the toes and the balls of the feet but occasionally has shooting pains into the foot. Also reporting some numbness and tingling to the first and second digit on the right hand but this is intermittent and believes due to carpal tunnel syndrome. Has a history of diabetes in her 30s but states this resolved after bariatric surgery, recent A1c was normal. Also notes history of heavy alcohol use about 10 years ago but no longer. No history of chemotherapy or other risk factors for neuropathy. Does take B12 and recent B12 was normal. At this time, discussed that patient likely has neuropathy, discussed further testing including repeat EMG, skin biopsy but patient deferring at this time. Is currently on gabapentin 300 mg 3 times daily and we will take over this prescription as patient would like me to manage her neuropathy. Does not need any refills at this time. Discussed adding alpha lipoic acid and patient is amenable. Should this not be beneficial may consider increasing gabapentin dosage in the future. Patient without any significant lightheadedness, does report this happens from time to time. Encouraged increasing water intake, compression socks and slow transition from sitting to standing. Of note, patient also with sleep apnea and is not very compliant with her CPAP. Discussed risks of untreated REMIGIO and patient is amenable to continuing her CPAP therapy. Patient agreeable to treatment plan of care at this time, questions were answered. Patient to follow-up in 3 to 6 months or sooner should any symptoms change or worsen. Em10/06/2023: Electrodiagnostic examination of the right lower limb, with additional nerve conduction and needle electrode studies of the left lower limb reveals changes most consistent with the followin. 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 Active motor axon loss change is seen in the medial gastrocnemius. Similar changes are seen on the left, suggesting this is a bilateral process. 2. No definite evidence of a large fiber sensorimotor polyneuropathy. Of note, a pure small fiber sensory neuropathy cannot be excluded based on this study. Labs: 12/05/2024: CMP and CBC unremarkable 04/27/2024: A1c at 4.8, LDL 95, TSH normal Today:01/22/2025 History as per patient: -she is here for tingling symptoms in her feet -symptoms in both feet toes, rather the foot -There iscrunchiness sensation and tingling sensation in her toes -some times zaps in her feet -no symptoms in her hands -no bowel or bladder incontinence -no falls -symptoms are always there, no day or night preference -quit tobacco 22 years ago, denies excessive alcohol, denies recreational or illegal drugs -no hx of XRT -has healthy balanced meals of fruits, veg -s/p cervical decompression x 2 with [facility] 2009 and 2013 -she has neck pain at baseline no new changes -no symptoms of radicular pain in UE or from lower back in her LE -Gabapentin 400 mg tid is helping most of the times -she has hydrocodone/acetaminophen from pain management in [place] 20 pills for arthritis -off the CPAP after she lost 85 pounds Current medications: Abilify 2 mg, Celexa 20 mg, Gabapentin 400 mg tid, flexeril 10 mg tid, Hydrochlorothiazide 12.5, lisinopril 20 mg once a day, Metoprolol 25 mg, synthroid 88 mcg, pravastatin 80, Ecoxac(for dry mouth)Vit D supplements, B12 supplements, Leflunomide 20 mg, hydrocodone/acetaminophen 5/325 PAST HISTORY REVIEWED: PAST MEDICAL HISTORY Diagnosis Date Acid reflux [...] non malignant TONSILLECTOMY PRIMARY/SECONDARY <AGE 12 Tonsillectomy Current Outpatient Medications Medication Sig hydroCHLOROthiazide 12.5 mg capsule Take 1 capsule by mouth once daily. omeprazole (PRILOSEC) 20 mg capsule Take 1 capsule by mouth once daily. tirzepatide (MOUNJARO) 7.5 mg/0.5 mL pen injector Inject 7.5 mg subcutaneously one time a week. potassium chloride (K-TAB) 10 mEq tablet Take 1 tablet by mouth two times a day. levothyroxine (SYNTHROID) 88 mcg tablet Take 1/2 tablet 3 days a week and whole tablet rest of the week. pravastatin (PRAVACHOL) 80 mg tablet Take 1 tablet by mouth once daily. gabapentin (NEURONTIN) 400 mg capsule Take 1 capsule by mouth three times a day for 180 days. cyanocobalamin, vitamin B-12, (VITAMIN B-12 ORAL) Take 5,000 mg by mouth every other day. MEDICATION, NON-DATABASE Alphalipoic metoprolol tartrate, short acting, (LOPRESSOR) 25 mg tablet Take 0.5 tablets by mouth once daily. eletriptan (RELPAX) 20 mg tablet Take 1 at start of headache, may repeat in 2 hours if necessary (total of 3 tablets) lisinopril (ZESTRIL) 20 mg tablet Take 1 tablet by mouth twice daily. (Patient taking differently: Take 20 mg by mouth once daily.) CPAP/BIPAP/OTHER BiPAP 25/20 cmH2O. [employer]. Type .CPAPSettings into a note to see current settings/supplies/DME information. CPAP Bilevel 25/20 cmH2O, Resmed F20 FFM (small), Ti max 2.0, Ti min 0.3, Trigger medium, Cycle medium, HUMIDITY, LIFETIME SUPPLIES. leflunomide (ARAVA) 10 mg tablet Take 2 tablets by mouth once daily. cyclobenzaprine (FLEXERIL) 10 mg tablet Take 1 tablet by mouth three times daily. Cholecalciferol, Vitamin D3, (VITAMIN D) 1,000 [...] 5000 SENSITIVE 1.1 %-5 % DENTAL PASTE) No current facility-administered medications for this visit. SOCIAL HISTORY REVIEWED: Social History Tobacco Use Smoking status: Former Current packs/day: 0.00 Average packs/day: 0.5 packs/day for 20.0 years (10.0 ttl pk-yrs) Types: Cigarettes Start date: 06/14/1983 Quit date: 06/14/2003 Years since quittin.6 Passive exposure: Never Smokeless tobacco: Never Vaping Use Vaping status: Never Used Substance Use Topics Alcohol use: Yes Comment: social Drug use: No EXAM: There were no vitals filed for this visit. Exam is observational at best. General Appearance: well appearing, in no acute distress Mental status evaluation during the interview and examination showed normal level of consciousness, orientation, language, memory, praxis, and higher intellectual function Affect: Normal Speech: normal Cranial Nerves: III, IV, -EOMI: full. VII-face is symmetric without evidence of weakness. VIII-hearing intact. Strength: RUDDY REVIEW OF STUDIES: Em10/06/2023: Electrodiagnostic examination of the right lower limb, with additional nerve conduction and needle electrode studies of the left lower limb reveals changes most consistent with the followin. 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 Active motor axon loss change is seen in the medial gastrocnemius. Similar changes are seen on the left, suggesting this is a bilateral process. 2. No definite evidence of a large fiber sensorimotor polyneuropathy. Of note, a pure small fiber sensory neuropathy cannot be excluded based on this study. Labs: 12/05/2024: CMP and CBC unremarkable 04/27/2024: A1c at 4.8, LDL 95, TSH normal IMPRESSION/PLAN: (R20.2) Paresthesia of both feet (primary encounter diagnosis) Santos Allan is a 58 year old right-handed female with a history of HTN, DM type 2 (in 30s then had bariatric surgery), HLD, bipolar 1, anxiety, anemia, sjogrens, hypothyroidism, REMIGIO. S/p cervical decompression surgery x 2 at [facility] Patient is, Luz patient at [facility], seen virtually today for worsening symptoms of paresthesias/crunchiness sensation in her toes bilaterally. S/p cervical decompression x 2 with [facility], last surgery was 2013 She is symptomatically managed with gabapentin 400 mg 3 times daily, also on hydrocodone/acetaminophen 20 pills in a month for arthritis symptoms. Her limited virtual neuroexam is unremarkable EMG 09/2023 and most recent labs including TSH and A1c reviewed There is no neuroimaging in our charts from her prior surgery at [facility] Paresthesia in both toes, unclear etiology peripheral neuropathy versus cervical radiculopathy/myelopathy versus lumbar radiculopathy, patient does not have any radicular symptoms at this time and most recent A1c is at 4.8 Plan: - EMG in 09/2023 was unremarkable will repeat the study to demonstrate and quantify peripheral neuropathy if any - May consider skin biopsy if this workup is negative -In absence of any radicular symptoms we will screen for x-ray lumbar spine and cervical spine to rule out any acute process, stability of hard lee in cervical spine -Screening labs for treatable causes of neuropathy including B12, B6, B1, folate, A1c, serum protein electrophoresis -Remain on gabapentin 400 mg 3 times daily, muscle relaxers Flexeril 3 times daily, hydrocodone for as needed use -Follow-up, encouraged in person exam to help with neurologic exam and sensory exam after workup is completed, if Luz is back she can schedule a follow-up with Luz as well at [facility]. I spent a total of 35 minutes on the date of the service which included preparing to see the patient, [id number] patient care, completing clinical documentation, obtaining and/or reviewing separately obtained history, performing a medically appropriate examination, counseling and educating the patient/family/caregiver, and ordering medications, tests, or procedures. Lucille Brandt PA-C 1. This office note has been dictated and may contain minor typographic errors that escaped review 2. The nursing staff and medical assistants are a major part of YOUR TREATMENT TEAM and will be handling your phone calls and inquiries, if any. Unless explicitly told otherwise at the time of your office visit, your study results and ensuing treatment plans will be discussed during your follow-up appointment. If you do not have a follow-up appointment and wish to discuss any issues directly with me, please feel free to obtain one. 3. It is my practice to not fill disability or any other insurance-related forms/documention. All of the office notes, study results, and other pertinent documentation generated as part of your evaluation will be available to you and to your Primary Care Physician (PCP). Use of this material to complete such forms will be at the discretion of your PCP/referring physician documented in this encounter [facility] 01-22-2025 Note HNO ID: [id number] Author: LUCILLE BRANDT PA-C Service: ? Author Type: Physician Unix Analyst Type: Progress Notes Filed: 01/22/2025 12:06 Note Text: [facility] for General Neurology New Patient Evaluation This visit was conducted via virtual platform. Patient was identified by name and and consented to the video evaluation and its limitations. Based on this evaluation it may be necessary for them to schedule a follow up evaluation with me or other neurologists for formal physical examination and if necessary, other studies I have communicated my name and active licensure. The patient's identity and physical location were verified at the time of this visit. Either the patient or their legal customer relations representative has been informed of the risks and benefits of -- and alternatives to -- treatment through a remote evaluation and consents to proceed with the evaluation remotely. Confirmed verbally that the patient currently located [facility].Yes Confirmed verbally that the patient consents to being seen virtually today.Yes Confirmed verbally that the patient consents to being seen by a physician bus assistant.Yes CHIEF COMPLAINT: Neuropathy, luz Meeks patient Santos Allan is a 58 year old right-handed female with a history of HTN, DM type 2 (in 30s then had bariatric surgery) currently non diabetic, HLD, bipolar 1, anxiety, anemia, sjogrens, hypothyroidism, REMIGIO. S/p cervical decompression surgery x 2 at [facility] 2019 She is unaccompanied Last visit with Luz Meeks was 07/18/2024 HPI: As per chart review: Seen by General neurology: Luz Meeks:07/18/2024: Santos Allan is a 58 year old right-handed female with a history of HTN, DM type 2 (in 30s then had bariatric surgery), HLD, bipolar 1, anxiety, anemia, sjogrens, hypothyroidism, REMIGIO . Her examination demonstrates decreased sensation to her feet, intact strength and reflexes in BLE. Patient with around 2 years of constant numbness and tingling of her feet bilaterally. Started while she was on Topamax but continued even when she stopped it 6 months ago. Patient does have signs and symptoms of neuropathy in her lower extremities, did have an EMG done in September that was negative for any signs of neuropathy but did show S1 Radiculopathy. Has been following with pain management and had an ablation in her lumbar spine which did not help her feet. Symptoms are primarily to the toes and the balls of the feet but occasionally has shooting pains into the foot. Also reporting some numbness and tingling to the first and second digit on the right hand but this is intermittent and believes due to carpal tunnel syndrome. Has a history of diabetes in her 30s but states this resolved after bariatric surgery, recent A1c was normal. Also notes history of heavy alcohol use about 10 years ago but no longer. No history of chemotherapy or other risk factors for neuropathy. Does take B12 and recent B12 was normal. At this time, discussed that patient likely has neuropathy, discussed further testing including repeat EMG, skin biopsy but patient deferring at this time. Is currently on gabapentin 300 mg 3 times daily and we will take over this prescription as patient would like me to manage her neuropathy. Does not need any refills at this time. Discussed adding alpha lipoic acid and patient is amenable. Should this not be beneficial may consider increasing gabapentin dosage in the future. Patient without any significant lightheadedness, does report this happens from time to time. Encouraged increasing water intake, compression socks and slow transition from sitting to standing. Of note, patient also with sleep apnea and is not very compliant with her CPAP. Discussed risks of untreated REMIGIO and patient is amenable to continuing her CPAP therapy. Patient agreeable to treatment plan of care at this time, questions were answered. Patient to follow-up in 3 to 6 months or sooner should any symptoms change or worsen. Em10/06/2023: Electrodiagnostic examination of the right lower limb, with additional nerve conduction and needle electrode studies of the left lower limb reveals changes most consistent with the followin. 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 Active motor axon loss change is seen in the medial gastrocnemius. Similar changes are seen on the left, suggesting this is a bilateral process. 2. No definite evidence of a large fiber sensorimotor polyneuropathy. Of note, a pure small fiber sensory neuropathy cannot be excluded based on this study. Labs: 12/05/2024: CMP and CBC unremarkable 04/27/2024: A1c at 4.8, LDL 95, TSH normal Today:01/22/2025 History as per patient: -she is here for tingling symptoms in her feet -symptoms in both feet toes, rather the foot -There iscru (more content not included)... [facility] 12-13-2024 Telephone encounter Note Patient [email or web address] message requesting the following refill Refill(s) Requested: Requested Prescriptions Pending Prescriptions Disp Refills omeprazole (PRILOSEC) 20 mg capsule 90 capsule 3 Sig: Take 1 capsule by mouth once daily. ALLERGIES Allergen Reactions Gabapentin Swelling Hydrocodone-Acetami* Itching Imitrex [Sumatripta* Face went numb Prednisone Mental Status Change (home) [phone] (work) [phone] (cell) Last Office Visit Date: 11/10/2024 Last Distance Health Visit: 04/03/2024 Future Appointment: 03/12/2025 The patients preferred pharmacy has been captured for this encounter? yes Request is for script(s) to be escript to pharmacy. Kristina Law LPN [facility] 12-13-2024 Miscellaneous Notes Patient Site9hart message requesting the following refill Refill(s) Requested: Requested Prescriptions Pending Prescriptions Disp Refills omeprazole (PRILOSEC) 20 mg capsule 90 capsule 3 Sig: Take 1 capsule by mouth once daily. ALLERGIES Allergen Reactions Gabapentin Swelling Hydrocodone-Acetami* Itching Imitrex [Sumatripta* Face went numb Prednisone Mental Status Change (home) [phone] (work) [phone] (cell) Last Office Visit Date: 11/10/2024 Last Distance Health Visit: 04/03/2024 Future Appointment: 03/12/2025 The patients preferred pharmacy has been captured for this encounter? yes Request is for script(s) to be escript to pharmacy. Kristina Law LPN documented in this encounter [facility] 11-10-2024 Note HNO ID: [id number] Author: ANA BOLAÑOS MD Service: ? Author Type: Physician Type: Progress Notes Filed: 11/10/2024 09:08 Note Text: Reason for Visit Patient presents with: F/U 3 Month Santos Allan is a 58 year old female who presents here today for CPE. Health Maintenance Depression Screening Anxiety Screening BP Controlled (<130/80) Hepatitis B Vaccine(1 of 3 - 19+ 3-dose series) Pneumococcal Vaccine(3 of 3 - PCV) Cervical Cancer Screening Covid-19 Vaccine(2022- season) Mammogram Screening HPI Santos Allan is a 58 year old female Past medical hx of Hypertension, hyperlipidemia, obesity, hypothyroidism and hypoparathyroidism . Migraine, s/p removal of lap band , ibs, GERD,sjogrens disease, peripheral neuropathy of unclear etiology, hypokalemia, bipolar 1 disorder metabolic syndrome, Sleep apnea. Patient wants us to take over caring for most of her endocrine problems. She is to see Dr. Erika Gannon but has had reasons why she would like to switch over. Most of her endocrine issues are not active for the past few years. Obesity: History of gastric sleeve surgery in 2021 and gaining weight. Walks average of 5 days a week and eats small meals but is always hungry. Has spoke with dietitian and told to eat more protein but it is not helping. Has previously saxenda which was helpful and used prior to gastric sleeve. Has tried Cosentra which does not help. Currently on Zepbound, and just started at 5 mgs, weight is on the down jimenez trend. Hypothyroidism: takes medication as ordered. Denies any abnormal changes in energy. Recent TSH in normal range HTN: Ms. Allan indicates that she is feeling well and denies any symptoms referable to elevated blood pressure. Specifically denies headache, chest pain, palpitations, dyspnea, and peripheral edema. Patient denies any side effects of her medication(s) and is compliant with their regimen. She does not check BP's generally. Last 3 Encounter BP Readings: Date: BP: 01/07/2024 113/70 09/29/2023 128/80 08/30/2023 124/80 REMIGIO: she has never been a good sleeper, has trouble falling and staying asleep, feels claustrophobic with the sleep machine on. Does not sleep well on it or off it so has stopped using it after she lost weight. She has lost around 64 pounds since her highest weight in the past 2 years, most days she feels refreshed when she wakes up , not tired. She does feel drowsy around 3 pm after lunch. Does not feel like she is dragging the whole day or drowsy the whole day. does not note snoring. Will keep a watch if she stops breathing. Has been on trazadone in the past for sleep which was helpful. Bipolar: Feels well controlled on current treatment, Sees Dr. Davies for psychiatry. Alcohol use: does not drink any alcohol Drug use: No Suicidal Thoughts: No suicidal ideation, intent or plan Sjogren: she is seeing Edilson Penn for her sjojgrens disease. 08/11/24: the potassium was low in labs of May, it was because she had stopped taking supplements and is now back on it. She had the issues with blood glucose too. She is not going to the bariatric center anymore we are giving the zepbound, she has lost around 30 pounds of weight on the medication. The food noise is calmed in her. She is exercising by walking daily. November 10, 2024 We discussed in detail sleep apnea. She is on GLP1 and lost around 60 pounds. She feels the same when she had the sleep machine, infact better in a way. With the machine it was horrid per her report,. Does feel fresh when she wakes up but in the afternoon at 3 pm she feels a little sleepy. She was on metformin for type 2 Diabetes Mellitus in the past but with weight loss she is doing better No problem-specific Assessment AND Plan notes found for this encounter. PAST MEDICAL HISTORY Diagnosis Date Acid reflux [...] Social History Tobacco Use Smoking status: Former Current packs/day: 0.00 Average packs/day: 0.5 packs (more content not included)... [facility] 11-10-2024 History of Present illness Narrative Reason for Visit Patient presents with: F/U 3 Month Santos Allan is a 58 year old female who presents here today for CPE. Health Maintenance Depression Screening Anxiety Screening BP Controlled (<130/80) Hepatitis B Vaccine(1 of 3 - 19+ 3-dose series) Pneumococcal Vaccine(3 of 3 - PCV) Cervical Cancer Screening Covid-19 Vaccine(2022- season) Mammogram Screening HPI Santos Allan is a 58 year old female Past medical hx of Hypertension, hyperlipidemia, obesity, hypothyroidism and hypoparathyroidism . Migraine, s/p removal of lap band , ibs, GERD,sjogrens disease, peripheral neuropathy of unclear etiology, hypokalemia, bipolar 1 disorder metabolic syndrome, Sleep apnea. Patient wants us to take over caring for most of her endocrine problems. She is to see Dr. Erika Gannon but has had reasons why she would like to switch over. Most of her endocrine issues are not active for the past few years. Obesity: History of gastric sleeve surgery in 2021 and gaining weight. Walks average of 5 days a week and eats small meals but is always hungry. Has spoke with dietitian and told to eat more protein but it is not helping. Has previously saxenda which was helpful and used prior to gastric sleeve. Has tried Cosentra which does not help. Currently on Zepbound, and just started at 5 mgs, weight is on the down jimenez trend. Hypothyroidism: takes medication as ordered. Denies any abnormal changes in energy. Recent TSH in normal range HTN: Ms. Allan indicates that she is feeling well and denies any symptoms referable to elevated blood pressure. Specifically denies headache, chest pain, palpitations, dyspnea, and peripheral edema. Patient denies any side effects of her medication(s) and is compliant with their regimen. She does not check BP's generally. Last 3 Encounter BP Readings: Date: BP: 01/07/2024 113/70 09/29/2023 128/80 08/30/2023 124/80 REMIGIO: she has never been a good sleeper, has trouble falling and staying asleep, feels claustrophobic with the sleep machine on. Does not sleep well on it or off it so has stopped using it after she lost weight. She has lost around 64 pounds since her highest weight in the past 2 years, most days she feels refreshed when she wakes up , not tired. She does feel drowsy around 3 pm after lunch. Does not feel like she is dragging the whole day or drowsy the whole day. does not note snoring. Will keep a watch if she stops breathing. Has been on trazadone in the past for sleep which was helpful. Bipolar: Feels well controlled on current treatment, Sees Dr. Davies for psychiatry. Alcohol use: does not drink any alcohol Drug use: No Suicidal Thoughts: No suicidal ideation, intent or plan Sjogren: she is seeing Edilson Penn for her sjojgrens disease. 08/11/24: the potassium was low in labs of May, it was because she had stopped taking supplements and is now back on it. She had the issues with blood glucose too. She is not going to the bariatric center anymore we are giving the zepbound, she has lost around 30 pounds of weight on the medication. The food noise is calmed in her. She is exercising by walking daily. November 10, 2024 We discussed in detail sleep apnea. She is on GLP1 and lost around 60 pounds. She feels the same when she had the sleep machine, infact better in a way. With the machine it was horrid per her report,. Does feel fresh when she wakes up but in the afternoon at 3 pm she feels a little sleepy. She was on metformin for type 2 Diabetes Mellitus in the past but with weight loss she is doing better No problem-specific Assessment & Plan notes found for this encounter. PAST MEDICAL HISTORY Diagnosis Date Acid reflux [...] Social History Tobacco Use Smoking status: Former Current packs/day: 0.00 Average packs/day: 0.5 packs/day for 20.0 years (10.0 ttl pk-yrs) Types: Cigarettes Start date: 06/14/1983 Quit date: 06/14/2003 Years since quittin.4 Passive exposure: Never Smokeless tobacco: Never Vaping Use Vaping status: Never Used Substance Use Topics Alcohol use: Yes Comment: social Drug use: No Past medical history, appointments, medications, allergies reviewed. Pertinent Lab/Diagnostic Studies are reviewed and discussed today Current Outpatient Medications: potassium chloride (K-TAB) 10 mEq tablet levothyroxine (SYNTHROID) 88 mcg tablet pravastatin (PRAVACHOL) 80 mg tablet gabapentin (NEURONTIN) 400 mg capsule cyanocobalamin, vitamin B-12, (VITAMIN B-12 ORAL) MEDICATION, NON-DATABASE metoprolol tartrate, short acting, (LOPRESSOR) 25 mg tablet omeprazole (PRILOSEC) 20 mg capsule eletriptan (RELPAX) 20 mg tablet lisinopril (ZESTRIL) 20 mg tablet CPAP/BIPAP/OTHER CPAP leflunomide (ARAVA) 10 mg tablet cyclobenzaprine (FLEXERIL) 10 mg tablet Cholecalciferol, Vitamin D3, (VITAMIN D) 1,000 unit tab sulfaSALAzine (AZULFIDINE) 500 mg tablet aripiprazole (ABILIFY) 2 mg tablet cevimeline (EVOXAC) 30 mg ORAL capsule citalopram hydrobromide(CELEXA 20 MG TAB) sodium fluoride/pot nitrate(PREVIDENT 5000 SENSITIVE 1.1 %-5 % DENTAL PASTE) tirzepatide (MOUNJARO) 7.5 mg/0.5 mL pen injector Review of Systems CONSTITUTIONAL: No fevers, chills, nightsweats, unintended weight loss HEENT: Denies frequent or severe heaches, nasal congestion/sinus symptoms, problematic allergy problems. EYES: No diplopia or blurry vision. CARDIOVASCULAR: No chest pain, dyspnea, palpitations, orthopnea, PND, ankle edema. PULM: No dyspnea, unexplained cough. GI: No dysphagia/odynophagia, problematic reflux, constipation, diarrhea, changes in stool habits, hematochezia, melena. : No new urinary complaints, including dysuria, gross hematuria or pyuria. NEURO: No new balance problems, peripheral weakness/paresthesias or numbness of concern. MUSC-SKEL: No new joint pain, swelling, or erythema. PSY: No concerns regarding depression, anxiety or panic. INTEGUMENTARY: No new skin changes (rash, new or changing mole, new growth) Physical Exam BP 127/83 Pulse 85 Resp 16 Wt 89 kg (196 lb 3.2 oz) LMP 02/13/2019 (Approximate) BMI 31.46 kg/m General appearance: Well appearing, alert, in no acute distress, well-hydrated, well nourished. Skin: Skin color, texture, turgor normal, no suspicious rashes or lesions Head: Normocephalic, no masses, lesions, tenderness or abnormalities Eyes: Anicteric sclera. Pupils are equally round and reactive to light. Extraocular movements are intact. Ears: External ears normal, canals clear Lungs: Lungs clear to auscultation. No wheezing, rhonchi, rales Heart: RRR without murmur, gallop, or rubs. No ectopy Feet: Shoes and socks removed, normal distal pulses, sensitive to 10 gm monofilament, calluses noted bilaterally, and she has a blue tod on the left side from injury. ASSESSMENT/PLAN: 1. Type 2 diabetes mellitus with unspecified complications (HCC) - ICD9: 250.90, ICD10: E11.8 (primary diagnosis) - Controlled - Continue current medications - ALBUMIN/CREATININE RATIO, URINE - TIRZEPATIDE 7.5 MG/0.5 ML SUBCUTANEOUS PEN INJECTOR 2. Class 2 obesity due to excess calories without serious comorbidity with body mass index (BMI) of 39.0 to 39.9 in adult - ICD9: 278.00, V85.39, ICD10: E66.812, E66.09, Z68.39 Stable - Continue current medications - TIRZEPATIDE 7.5 MG/0.5 ML SUBCUTANEOUS PEN INJECTOR 3. Obstructive sleep apnea syndrome - ICD9: 327.23, ICD10: G47.33 - TIRZEPATIDE 7.5 MG/0.5 ML SUBCUTANEOUS PEN INJECTOR 4. Hyperlipidemia, unspecified hyperlipidemia type - ICD9: 272.4, ICD10: E78.5 - Controlled - Counseled on healthy diet and regular exercise - TIRZEPATIDE 7.5 MG/0.5 ML SUBCUTANEOUS PEN INJECTOR 5. Essential hypertension - ICD9: 401.9, ICD10: I10 - Controlled - Recommend home blood pressure monitoring, to bring results to next visit - Encouraged sodium restriction, DASH or Mediterranean diet - Recommend regular aerobic exercise - TIRZEPATIDE 7.5 MG/0.5 ML SUBCUTANEOUS PEN INJECTOR Ana Bolaños MD documented in this encounter [facility] 11-02-2024 Telephone encounter Note Patient has been identified by name and date of : Yes Patient phones for refill(s): Requested Prescriptions Pending Prescriptions Disp Refills potassium chloride (K-TAB) 10 mEq tablet 90 tablet 2 Sig: Take 1 tablet by mouth two times a day. Date of last office visit in primary care: 08/11/2024 Date of next office visit in primary care: 11/10/2024 Please advise. Thank you. Nadia Sam LPN. [facility] 11-02-2024 Miscellaneous Notes Patient has been identified by name and date of : Yes Patient phones for refill(s): Requested Prescriptions Pending Prescriptions Disp Refills potassium chloride (K-TAB) 10 mEq tablet 90 tablet 2 Sig: Take 1 tablet by mouth two times a day. Date of last office visit in primary care: 08/11/2024 Date of next office visit in primary care: 11/10/2024 Please advise. Thank you. Nadia Sam LPN. documented in this encounter [facility] 10-20-2024 History of Present illness Narrative Radiology Service Progress Note PATIENT NAME: Santos Allan DATE OF SERVICE: October 20, 2024 TIME: 7:29 AM PATIENT IDENTITY VERIFICATION COMPLETED USING TWO (2) IDENTIFIERS: Name and Date of confirmed by patient verbally. FALL SCREENING: Has the patient had 2 falls in the last year or 1 fall with injury or currently using an Ambulatory Assistive Device (Walker, Cane, Wheelchair, Crutches, etc.)? No PATIENT GENDER DATA: Assigned female at . status: : No status: NO. PATIENT RELEVANT IMPLANT DATA REVIEWED: Not Applicable PATIENT PRESENTS WITH AN IMPLANTABLE OR ATTACHED SMOG TECHNICIAN: No RADIOLOGY DEPARTMENT: Mammography PERIPHERAL IV DATA: Not applicable SIGNED BY: JESSICA Pennington) October 20, 2024 7:29 AM documented in this encounter [facility] 10-20-2024 Note HNO ID: [id number] Author: IRIS VARGAS RT(R) Service: ? Author Type: Technologist Type: Progress Notes Filed: 10/20/2024 07:29 Note Text: Radiology Service Progress Note PATIENT NAME: Santos Allan DATE OF SERVICE: October 20, 2024 TIME: 7:29 AM PATIENT IDENTITY VERIFICATION COMPLETED USING TWO (2) IDENTIFIERS: Name and Date of confirmed by patient verbally. FALL SCREENING: Has the patient had 2 falls in the last year or 1 fall with injury or currently using an Ambulatory Assistive Device (Walker, Cane, Wheelchair, Crutches, etc.)? No PATIENT GENDER DATA: Assigned female at . status: : No status: NO. PATIENT RELEVANT IMPLANT DATA REVIEWED: Not Applicable PATIENT PRESENTS WITH AN IMPLANTABLE OR ATTACHED SMOG TECHNICIAN: No RADIOLOGY DEPARTMENT: Mammography PERIPHERAL IV DATA: Not applicable SIGNED BY: JESSICA Pennington) October 20, 2024 7:29 AM [facility] 10-02-2024 Telephone encounter Note Prescription Refill Information The patient has been identified by name and date of : Yes Caregiver verified no other encounters exist for this prescription request: Yes Caregiver confirmed with patient/requestor that no other refills are due, in the near future, with this provider at this time: Yes The last office visit in the department: 08/11/2024 Per EARL, Patient wants us to take over caring for most of her endocrine problems. She is to see Dr. Erika Gannon but has had reasons why she would like to switch over. Most of her endocrine issues are not active for the past few years. Does the patient have a future office visit with this provider/department: Yes, 11/20/2024 Requested Prescriptions Pending Prescriptions Disp Refills levothyroxine (SYNTHROID) 88 mcg tablet Sig: Take 1/2 tablet 3 days a week and whole tablet rest of the week. JEY Verdugo October 02, 2024 4:07 PM [facility] 10-02-2024 Miscellaneous Notes Prescription Refill Information The patient has been identified by name and date of : Yes Caregiver verified no other encounters exist for this prescription request: Yes Caregiver confirmed with patient/requestor that no other refills are due, in the near future, with this provider at this time: Yes The last office visit in the department: 08/11/2024 Per EARL, Patient wants us to take over caring for most of her endocrine problems. She is to see Dr. Erika Gannon but has had reasons why she would like to switch over. Most of her endocrine issues are not active for the past few years. Does the patient have a future office visit with this provider/department: Yes, 11/20/2024 Requested Prescriptions Pending Prescriptions Disp Refills levothyroxine (SYNTHROID) 88 mcg tablet Sig: Take 1/2 tablet 3 days a week and whole tablet rest of the week. JEY Verdugo October 02, 2024 4:07 PM documented in this encounter [facility] 09-05-2024 Note HNO ID: [id number] Author: KATARINA GUILLORY APRN.ELECTRONIC CALIBRATION TECHNICIAN Service: ? Author Type: Nurse Practitioner Type: Progress Notes Filed: 09/05/2024 07:31 Note Text: Patient declined stencil printerBarry Valencia is a 58 year old who presents for an annual gynecologic exam without complaints. Postmenopausal: Yes since 2019 HRT use: No. Still get period: No LMP: 2019 approx Menopause symptoms: Vaginal dryness control frequency: Never HPV vaccine: No; Last pap smear: 08/28/2022, negative History of abnormal pap: No, all prior PAP smears have been normal Bothersome pelvic pain: No Last mammogram: 2023 normal History of abnormal mammogram: No OB History T0 L0 SAB0 IAB0 Ectopic0 Multiple0 Live Births0 Nursing Unit Manager History LMP: 02/13/2019 (Approximate), Postmenopausal Age at [age]ar[age] Age at First : Age at Menopause: Nursing Unit Manager History Comments: Sexual Activity: Not Currently; Male Contraception: No contraception data on record [...] Social History Tobacco Use Smoking status: Former Current packs/day: 0.00 Average packs/day: 0.5 packs/day for 20.0 years (10.0 ttl pk-yrs) Types: Cigarettes Start date: 06/14/1983 Quit date: 06/14/2003 Years since quittin.2 Passive exposure: Never Smokeless tobacco: Never Vaping Use Vaping status: Never Used Substance Use Topics Alcohol use: Yes Comment: social Drug use: No REVIEW OF SYSTEMS Abdomen: No abdominal pain, nausea, vomiting, diarrhea, or constipation. No bloating, early satiety, indigestion, or increased flatulence. Bladder: No dysuria, gross hematuria, urinary frequency, +urinary urgency +incontinence Breast: No breast lumps, nipple d/c, overlying skin changes, redness or skin retraction Allergies and current medication updated:Yes SENSITIVE EXAM: The sensitive examination was discussed with the Patient or Patient's Authorized Jumpbasting Collar Baster. As applicable, any other physician, advance practice provider, medical student, or other health professional student that will be observing or involved in the sensitive examination for educational or training purposes was discussed with the Patient or Authorized Jumpbasting Collar Baster. The Patient or Authorized Jumpbasting Collar Baster has agreed to proceed with the sensitive examination. (Sensitive examination includes inspection and/or palpation of the breasts, pelvis, prostate and anorectal regions). EXAM: BP 124/72 Ht 5' 6.22 (1.68m) Wt 210 lb 3.2 oz (95.3kg) LMP 02/13/2019 BMI 33.70 kg/(m2). GENERAL: pleasant, female in no apparent distress HEENT: Normocephalic, atraumatic, mucus membranes moist, and no lesions DERMATOLOGY: Normal, without lesions, non-icteric, and non-hirsute BREAST: soft, non-tender, symmetric, no dominant mass, normal nipple-areolar complex, no lymphadenopathy, and no nipple discharge CHEST: Normal inspiratory effort ABDOMEN: soft, non-tender, and no masses PELVIC: external genitalia normal, (more content not included)... [facility] 09-05-2024 History of Present illness Narrative Patient declined stencil printer. Santos is a 58 year old who presents for an annual gynecologic exam without complaints. Postmenopausal: Yes since 2019 HRT use: No. Still get period: No LMP: 2019 approx Menopause symptoms: Vaginal dryness control frequency: Never HPV vaccine: No; Last pap smear: 08/28/2022, negative History of abnormal pap: No, all prior PAP smears have been normal Bothersome pelvic pain: No Last mammogram: 2023 normal History of abnormal mammogram: No OB History T0 L0 SAB0 IAB0 Ectopic0 Multiple0 Live Births0 Nursing Unit Manager History LMP: 02/13/2019 (Approximate), Postmenopausal Age at Menarche[age] Age at First : Age at Menopause: Nursing Unit Manager History Comments: Sexual Activity: Not Currently; Male Contraception: No contraception data on record [...] non malignant TONSILLECTOMY PRIMARY/SECONDARY <AGE 14 Tonsillectomy FAMILY HISTORY Problem Relation Age of Onset Diabetes Mother Hypertension Mother Psychiatry Mother bipolar Breast Cancer Mother Cancer Mother breast, uterus/bone Lipids Mother Diabetes Father Hypertension Father Osteoporosis Father Colon Cancer Father Stroke Father Lipids Father Headache Father Hypertension Brother Lipids Brother Headache Brother Diabetes Brother SOCIAL HISTORY Social History Tobacco Use Smoking status: Former Current packs/day: 0.00 Average packs/day: 0.5 packs/day for 20.0 years (10.0 ttl pk-yrs) Types: Cigarettes Start date: 06/14/1983 Quit date: 06/14/2003 Years since quittin.2 Passive exposure: Never Smokeless tobacco: Never Vaping Use Vaping status: Never Used Substance Use Topics Alcohol use: Yes Comment: social Drug use: No REVIEW OF SYSTEMS Abdomen: No abdominal pain, nausea, vomiting, diarrhea, or constipation. No bloating, early satiety, indigestion, or increased flatulence. Bladder: No dysuria, gross hematuria, urinary frequency, +urinary urgency +incontinence Breast: No breast lumps, nipple d/c, overlying skin changes, redness or skin retraction Allergies and current medication updated:Yes SENSITIVE EXAM: The sensitive examination was discussed with the Patient or Patient's Authorized Jumpbasting Collar Baster. As applicable, any other physician, advance practice provider, medical student, or other health professional student that will be observing or involved in the sensitive examination for educational or training purposes was discussed with the Patient or Authorized Jumpbasting Collar Baster. The Patient or Authorized Jumpbasting Collar Baster has agreed to proceed with the sensitive examination. (Sensitive examination includes inspection and/or palpation of the breasts, pelvis, prostate and anorectal regions). EXAM: BP 124/72 Ht 5' 6.22 (1.68m) Wt 210 lb 3.2 oz (95.3kg) LMP 02/13/2019 BMI 33.70 kg/(m^2). GENERAL: pleasant, female in no apparent distress HEENT: Normocephalic, atraumatic, mucus membranes moist, and no lesions DERMATOLOGY: Normal, without lesions, non-icteric, and non-hirsute BREAST: soft, non-tender, symmetric, no dominant mass, normal nipple-areolar complex, no lymphadenopathy, and no nipple discharge CHEST: Normal inspiratory effort ABDOMEN: soft, non-tender, and no masses PELVIC: external genitalia normal, normal Bartholin's glands, urethra, Fouke's glands, no vulvar lesions, no cervical lesions, good vaginal support, physiologic discharge present, normal appearing perineal body [...] cancer screening: up to date with screening 2) Follow up one year or sooner as needed Katarina Guillory APRN.ELECTRONIC CALIBRATION TECHNICIAN documented in this encounter [facility] 08-23-2024 Telephone encounter Note Spoke with pt and she was not able to get the Zepbound but was able to get Mounjaro. Please remove Zepbound from pt's med list. Alison Kumari LPN [facility] 08-23-2024 Miscellaneous Notes Spoke with pt and she was not able to get the Zepbound but was able to get Mounjaro. Please remove Zepbound from pt's med list. Alison Kumari LPN documented in this encounter [facility] 08-19-2024 Telephone encounter Note Images from the original note were not included. Electronic PA rec'd and completed for zepbound. This was approved. Prior authorization approved Payer: [employer] [phone] Note from payer: CaseId:[id number];Status:Approved;Review Type:Prior Auth;Coverage Start Date:08/15/2024;Coverage End Date:04/15/2025; Approval Details Authorized from August 15, 2024 to April 15, 2025 Electronic appeal: Not supported View History Pharmacy Benefits Open Encounter SANTOS ALLAN Super ID ([employer]) Covered: Retail, Mail Order Unknown: Specialty, Long-Term Care BIN: [id number] : 1965 PCN: [id number] Legal sex: F Group name: [employer] [place] Address: [address] [place] [address] Medication Being Authorized tirzepatide, weight loss (ZEPBOUND) 7.5 mg/0.5 mL pen injector Inject 7.5 mg subcutaneously one time a week. Dispense: 2 mL Refills: 3 Start: 08/14/2024 Class: Normal This order has been released to its destination. To be filled at: [id number] [place] [address] [address] [facility] - [phone] [phone] Pt notified via my chart. [facility] 08-19-2024 Miscellaneous Notes Images from the original note were not included. Electronic PA rec'd and completed for zepbound. This was approved. Prior authorization approved Payer: [employer] [phone] Note from payer: CaseId:[id number];Status:Approved;Review Type:Prior Auth;Coverage Start Date:08/15/2024;Coverage End Date:04/15/2025; Approval Details Authorized from August 15, 2024 to April 15, 2025 Electronic appeal: Not supported View History Pharmacy Benefits Open Encounter SANTOS ALLAN Super ID ([employer]) Covered: Retail, Mail Order Unknown: Specialty, Long-Term Care BIN: [id number] : 1965 PCN: [id number] Legal sex: F Group name: [employer] [place] Address: [address] [place] [address] Medication Being Authorized tirzepatide, weight loss (ZEPBOUND) 7.5 mg/0.5 mL pen injector Inject 7.5 mg subcutaneously one time a week. Dispense: 2 mL Refills: 3 Start: 08/14/2024 Class: Normal This order has been released to its destination. To be filled at: [facility] #[id number] [place] [address] - [address] - [phone] [facility] [phone] Pt notified via my chart. documented in this encounter [facility] 08-11-2024 Note HNO ID: [id number] Author: ANA BOLAÑOS MD Service: ? Author Type: Physician Type: Progress Notes Filed: 08/11/2024 09:30 Note Text: Reason for Visit Patient presents with: F/U 3 Month Santos Allan is a 58 year old female who presents here today for CPE. Health Maintenance Depression Screening Anxiety Screening BP Controlled (<130/80) Hepatitis B Vaccine(1 of 3 - 19+ 3-dose series) Pneumococcal Vaccine(3 of 3 - PCV) Cervical Cancer Screening Covid-19 Vaccine(2022- season) Mammogram Screening HPI Santos Allan is a 58 year old female Past medical hx of Hypertension, hyperlipidemia, obesity, hypothyroidism and hypoparathyroidism . Migraine, s/p removal of lap band , ibs, GERD,sjogrens disease, peripheral neuropathy of unclear etiology, hypokalemia, bipolar 1 disorder metabolic syndrome, Sleep apnea. Patient wants us to take over caring for most of her endocrine problems. She is to see Dr. Erika Gannon but has had reasons why she would like to switch over. Most of her endocrine issues are not active for the past few years. Obesity: History of gastric sleeve surgery in 2021 and gaining weight. Walks average of 5 days a week and eats small meals but is always hungry. Has spoke with dietitian and told to eat more protein but it is not helping. Has previously saxenda which was helpful and used prior to gastric sleeve. Has tried Cosentra which does not help. Currently on Zepbound, and just started at 5 mgs, weight is on the down jimenez trend. Hypothyroidism: takes medication as ordered. Denies any abnormal changes in energy. Recent TSH in normal range HTN: Ms. Allan indicates that she is feeling well and denies any symptoms referable to elevated blood pressure. Specifically denies headache, chest pain, palpitations, dyspnea, and peripheral edema. Patient denies any side effects of her medication(s) and is compliant with their regimen. She does not check BP's generally. Last 3 Encounter BP Readings: Date: BP: 01/07/2024 113/70 09/29/2023 128/80 08/30/2023 124/80 REMIGIO: she has never been a good sleeper, has trouble falling and staying asleep, feels claustrophobic with the sleep machine on. Does not sleep well on it or off it. Has been using her cpap irregularly as she sleeps sporadically chronically. Has tried melatonin but made her groggy. Has been on trazadone in the past for sleep which was helpful. Bipolar: Feels well controlled on current treatment, Sees Dr. Davies for psychiatry. Alcohol use: does not drink any alcohol Drug use: No Suicidal Thoughts: No suicidal ideation, intent or plan Sjogren: she is seeing Edilson Penn for her sjojgrens disease. 08/11/24: the potassium was low in labs of May, it was because she had stopped taking supplements and is now back on it. She had the issues with blood glucose too. She is not going to the bariatric center anymore we are giving the zepbound, she has lost around 30 pounds of weight on the medication. The food noise is calmed in her. She is exercising by walking daily. No problem-specific Assessment AND Plan notes found for this encounter. PAST MEDICAL HISTORY Diagnosis Date Acid reflux [...] Social History Tobacco Use Smoking status: Former Current packs/day: 0.00 Average packs/day: 0.5 packs/day for 20.0 years (10.0 ttl pk-yrs) Types: Cigarettes Start date: 06/14/1983 Quit date: 06/14/2003 Years since quittin.1 Passive exposure: Never Smokeless tobacco: Never Vaping Use Vaping status: Never Used Substance Use Topics Alcohol use: Yes Comment: Occaisionally Drug use: No Past medical history, appointments, medications, allergies reviewed. Pertinent Lab/Diagnostic Studies are reviewed and discussed today Current Outpatient Medications: gabapentin (NEURONTIN) 400 mg capsule potassium chloride (K-TAB) 10 mEq tablet tirzepatide, weight loss (ZEPBOUND) 5 mg/0.5 mL pen injector pravastatin (PRAVACHOL) 80 mg tablet cyanocobalamin, vitam (more content not included)... [facility] 08-11-2024 History of Present illness Narrative Reason for Visit Patient presents with: F/U 3 Month Santos Allan is a 58 year old female who presents here today for CPE. Health Maintenance Depression Screening Anxiety Screening BP Controlled (<130/80) Hepatitis B Vaccine(1 of 3 - 19+ 3-dose series) Pneumococcal Vaccine(3 of 3 - PCV) Cervical Cancer Screening Covid-19 Vaccine(2022- season) Mammogram Screening HPI Santos Allan is a 58 year old female Past medical hx of Hypertension, hyperlipidemia, obesity, hypothyroidism and hypoparathyroidism . Migraine, s/p removal of lap band , ibs, GERD,sjogrens disease, peripheral neuropathy of unclear etiology, hypokalemia, bipolar 1 disorder metabolic syndrome, Sleep apnea. Patient wants us to take over caring for most of her endocrine problems. She is to see Dr. Erika Gannon but has had reasons why she would like to switch over. Most of her endocrine issues are not active for the past few years. Obesity: History of gastric sleeve surgery in 2021 and gaining weight. Walks average of 5 days a week and eats small meals but is always hungry. Has spoke with dietitian and told to eat more protein but it is not helping. Has previously saxenda which was helpful and used prior to gastric sleeve. Has tried Cosentra which does not help. Currently on Zepbound, and just started at 5 mgs, weight is on the down jimenez trend. Hypothyroidism: takes medication as ordered. Denies any abnormal changes in energy. Recent TSH in normal range HTN: Ms. Allan indicates that she is feeling well and denies any symptoms referable to elevated blood pressure. Specifically denies headache, chest pain, palpitations, dyspnea, and peripheral edema. Patient denies any side effects of her medication(s) and is compliant with their regimen. She does not check BP's generally. Last 3 Encounter BP Readings: Date: BP: 01/07/2024 113/70 09/29/2023 128/80 08/30/2023 124/80 REMIGIO: she has never been a good sleeper, has trouble falling and staying asleep, feels claustrophobic with the sleep machine on. Does not sleep well on it or off it. Has been using her cpap irregularly as she sleeps sporadically chronically. Has tried melatonin but made her groggy. Has been on trazadone in the past for sleep which was helpful. Bipolar: Feels well controlled on current treatment, Sees Dr. Davies for psychiatry. Alcohol use: does not drink any alcohol Drug use: No Suicidal Thoughts: No suicidal ideation, intent or plan Sjogren: she is seeing Edilson Penn for her sjojgrens disease. 08/11/24: the potassium was low in labs of May, it was because she had stopped taking supplements and is now back on it. She had the issues with blood glucose too. She is not going to the bariatric center anymore we are giving the zepbound, she has lost around 30 pounds of weight on the medication. The food noise is calmed in her. She is exercising by walking daily. No problem-specific Assessment & Plan notes found for this encounter. PAST MEDICAL HISTORY Diagnosis Date Acid reflux [...] Social History Tobacco Use Smoking status: Former Current packs/day: 0.00 Average packs/day: 0.5 packs/day for 20.0 years (10.0 ttl pk-yrs) Types: Cigarettes Start date: 06/14/1983 Quit date: 06/14/2003 Years since quittin.1 Passive exposure: Never Smokeless tobacco: Never Vaping Use Vaping status: Never Used Substance Use Topics Alcohol use: Yes Comment: Occaisionally Drug use: No Past medical history, appointments, medications, allergies reviewed. Pertinent Lab/Diagnostic Studies are reviewed and discussed today Current Outpatient Medications: gabapentin (NEURONTIN) 400 mg capsule potassium chloride (K-TAB) 10 mEq tablet tirzepatide, weight loss (ZEPBOUND) 5 mg/0.5 mL pen injector pravastatin (PRAVACHOL) 80 mg tablet cyanocobalamin, vitamin B-12, (VITAMIN B-12 ORAL) MEDICATION, NON-DATABASE metoprolol tartrate, short acting, (LOPRESSOR) 25 mg tablet omeprazole (PRILOSEC) 20 mg capsule eletriptan (RELPAX) 20 mg tablet levothyroxine (SYNTHROID) 88 mcg tablet lisinopril (ZESTRIL) 20 mg tablet leflunomide (ARAVA) 10 mg tablet cyclobenzaprine (FLEXERIL) 10 mg tablet Cholecalciferol, Vitamin D3, (VITAMIN D) 1,000 unit tab sulfaSALAzine (AZULFIDINE) 500 mg tablet aripiprazole (ABILIFY) 2 mg tablet cevimeline (EVOXAC) 30 mg ORAL capsule citalopram hydrobromide(CELEXA 20 MG TAB) sodium fluoride/pot nitrate(PREVIDENT 5000 SENSITIVE 1.1 %-5 % DENTAL PASTE) CPAP/BIPAP/OTHER CPAP Review of Systems CONSTITUTIONAL: No fevers, chills, nightsweats, unintended weight loss HEENT: Denies frequent or severe heaches, nasal congestion/sinus symptoms, problematic allergy problems. EYES: No diplopia or blurry vision. CARDIOVASCULAR: No chest pain, dyspnea, palpitations, orthopnea, PND, ankle edema. PULM: No dyspnea, unexplained cough. GI: No dysphagia/odynophagia, problematic reflux, constipation, diarrhea, changes in stool habits, hematochezia, melena. : No new urinary complaints, including dysuria, gross hematuria or pyuria. NEURO: No new balance problems, peripheral weakness/paresthesias or numbness of concern. MUSC-SKEL: No new joint pain, swelling, or erythema. PSY: No concerns regarding depression, anxiety or panic. INTEGUMENTARY: No new skin changes (rash, new or changing mole, new growth) Physical Exam BP 116/80 Pulse 91 Wt 97.4 kg (214 lb 12 oz) LMP 02/13/2019 (Approximate) SpO2 97% BMI 34.51 kg/m General appearance: Well appearing, alert, in no acute distress, well-hydrated, well nourished. Skin: Skin color, texture, turgor normal, no suspicious rashes or lesions Head: Normocephalic, no masses, lesions, tenderness or abnormalities Eyes: Anicteric sclera. Pupils are equally round and reactive to light. Extraocular movements are intact. Ears: External ears normal, canals clear Lungs: Lungs clear to auscultation. No wheezing, rhonchi, rales Heart: RRR without murmur, gallop, or rubs. No ectopy ASSESSMENT/PLAN: 1. Acquired hypothyroidism - ICD9: 244.9, ICD10: E03.9 (primary diagnosis) - Instructed patient on importance of taking on an empty stomach either first thing in the morning or at bedtime. 2. Class 2 obesity due to excess calories without serious comorbidity with body mass index (BMI) of 39.0 to 39.9 in adult - ICD9: 278.00, V85.39, ICD10: E66.812, E66.09, Z68.39 - Behavioral intervention - TIRZEPATIDE 7.5 MG/0.5 ML SUBCUTANEOUS PEN INJECTOR - TIRZEPATIDE 7.5 MG/0.5 ML SUBCUTANEOUS PEN INJECTOR 4. Hyperlipidemia, unspecified hyperlipidemia type - ICD9: 272.4, ICD10: E78.5 - Controlled - Counseled on healthy diet and regular exercise - TIRZEPATIDE 7.5 MG/0.5 ML SUBCUTANEOUS PEN INJECTOR 5. Essential hypertension - ICD9: 401.9, ICD10: I10 Weight loss is helping with blood pressure control - TIRZEPATIDE 7.5 MG/0.5 ML SUBCUTANEOUS PEN INJECTOR 6. Hypokalemia - ICD9: 276.8, ICD10: E87.6 - BASIC METABOLIC PANEL Ana Bolaños MD documented in this encounter [facility] 07-18-2024 Instructions Luz Meeks PA-C - 07/18/2024 4:28 PM EST Increase gabapentin to 400mg to three times a day Follow up in 6 months documented in this encounter [facility] 07-18-2024 Note HNO ID: [id number] Author: LUZ MEEKS PA-C Service: ? Author Type: Physician Unix Analyst Type: Progress Notes Filed: 07/18/2024 16:39 Note Text: ESTABLISHED PATIENT VISIT Last visit: 03/28/24 Assessment AND Plan: Santos Allan is a 58 year old right-handed female with a history of HTN, DM type 2 (in 30s then had bariatric surgery), HLD, bipolar 1, anxiety, anemia, sjogrens, hypothyroidism, REMIGIO . Her examination demonstrates decreased sensation to her feet, intact strength and reflexes in BLE. Patient with around 2 years of constant numbness and tingling of her feet bilaterally. Started while she was on Topamax but continued even when she stopped it 6 months ago. Patient does have signs and symptoms of neuropathy in her lower extremities, did have an EMG done in September that was negative for any signs of neuropathy but did show S1 Radiculopathy. Has been following with pain management and had an ablation in her lumbar spine which did not help her feet. Symptoms are primarily to the toes and the balls of the feet but occasionally has shooting pains into the foot. Also reporting some numbness and tingling to the first and second digit on the right hand but this is intermittent and believes due to carpal tunnel syndrome. Has a history of diabetes in her 30s but states this resolved after bariatric surgery, recent A1c was normal. Also notes history of heavy alcohol use about 10 years ago but no longer. No history of chemotherapy or other risk factors for neuropathy. Does take B12 and recent B12 was normal. At this time, discussed that patient likely has neuropathy, discussed further testing including repeat EMG, skin biopsy but patient deferring at this time. Is currently on gabapentin 300 mg 3 times daily and we will take over this prescription as patient would like me to manage her neuropathy. Does not need any refills at this time. Discussed adding alpha lipoic acid and patient is amenable. Should this not be beneficial may consider increasing gabapentin dosage in the future. Patient without any significant lightheadedness, does report this happens from time to time. Encouraged increasing water intake, compression socks and slow transition from sitting to standing. Of note, patient also with sleep apnea and is not very compliant with her CPAP. Discussed risks of untreated REMIGIO and patient is amenable to continuing her CPAP therapy. Patient agreeable to treatment plan of care at this time, questions were answered. Patient to follow-up in 3 to 6 months or sooner should any symptoms change or worsen. Santos was seen today for neuropathy. Diagnoses and all orders for this visit: Neuropathy She should return to see me in 3-6 months. CHIEF COMPLAINT: follow up HISTORY OF PRESENT ILLNESS: Santos Allan is a 58 year old female, There were no vitals taken for this visit. with a PMH significant for HTN, DM type 2 (in 30s then had bariatric surgery), HLD, bipolar 1, anxiety, anemia, sjogrens, hypothyroidism, REMIGIO . Last seen on 03/28/24 for neuropathy, two years of numbness, constant in feet. Previous EMG neg, deferred repeat or skin bx. Refilled her gabapentin 300mg tid and alpha lipoic acid. Increased Gabapentin by 100mg in the morning and evening. Notes that symptoms have improved since last appointment, notes that increasing gabapentin by 100 mg in the morning and evening did seem to help with symptom management. No worsening of any paresthesias. Does note that the numbness in her toes is more of an annoyance than pain. Would like to see if increasing during the day would help as well as she does not have any significant fatigue with increasing it to 400 mg in the morning. No other side effects with it. Notes good water intake but she does occasionally get lightheadedness in the evenings when she stands up too quickly, no syncope or falls with this. Notes that she still has some issues with sleeping through the night, no benefit with increasing gabapentin. No falls since last appointment. Does note that if she forgets the dosage her neuropathy is significant throughout the day. No new concerns today. REVIEW OF SYSTEMS GENERAL:No weight loss, malaise [...] headaches and dizziness or syncope, vision changes, speech/nusrat (more content not included)... [facility] 07-18-2024 History of Present illness Narrative ESTABLISHED PATIENT VISIT Last visit: 03/28/24 Assessment & Plan: Santos Allan is a 58 year old right-handed female with a history of HTN, DM type 2 (in 30s then had bariatric surgery), HLD, bipolar 1, anxiety, anemia, sjogrens, hypothyroidism, REMIGIO . Her examination demonstrates decreased sensation to her feet, intact strength and reflexes in BLE. Patient with around 2 years of constant numbness and tingling of her feet bilaterally. Started while she was on Topamax but continued even when she stopped it 6 months ago. Patient does have signs and symptoms of neuropathy in her lower extremities, did have an EMG done in September that was negative for any signs of neuropathy but did show S1 Radiculopathy. Has been following with pain management and had an ablation in her lumbar spine which did not help her feet. Symptoms are primarily to the toes and the balls of the feet but occasionally has shooting pains into the foot. Also reporting some numbness and tingling to the first and second digit on the right hand but this is intermittent and believes due to carpal tunnel syndrome. Has a history of diabetes in her 30s but states this resolved after bariatric surgery, recent A1c was normal. Also notes history of heavy alcohol use about 10 years ago but no longer. No history of chemotherapy or other risk factors for neuropathy. Does take B12 and recent B12 was normal. At this time, discussed that patient likely has neuropathy, discussed further testing including repeat EMG, skin biopsy but patient deferring at this time. Is currently on gabapentin 300 mg 3 times daily and we will take over this prescription as patient would like me to manage her neuropathy. Does not need any refills at this time. Discussed adding alpha lipoic acid and patient is amenable. Should this not be beneficial may consider increasing gabapentin dosage in the future. Patient without any significant lightheadedness, does report this happens from time to time. Encouraged increasing water intake, compression socks and slow transition from sitting to standing. Of note, patient also with sleep apnea and is not very compliant with her CPAP. Discussed risks of untreated REMIGIO and patient is amenable to continuing her CPAP therapy. Patient agreeable to treatment plan of care at this time, questions were answered. Patient to follow-up in 3 to 6 months or sooner should any symptoms change or worsen. Santos was seen today for neuropathy. Diagnoses and all orders for this visit: Neuropathy She should return to see me in 3-6 months. CHIEF COMPLAINT: follow up HISTORY OF PRESENT ILLNESS: Santos Allan is a 58 year old female, There were no vitals taken for this visit. with a PMH significant for HTN, DM type 2 (in 30s then had bariatric surgery), HLD, bipolar 1, anxiety, anemia, sjogrens, hypothyroidism, REMIGIO . Last seen on 03/28/24 for neuropathy, two years of numbness, constant in feet. Previous EMG neg, deferred repeat or skin bx. Refilled her gabapentin 300mg tid and alpha lipoic acid. Increased Gabapentin by 100mg in the morning and evening. Notes that symptoms have improved since last appointment, notes that increasing gabapentin by 100 mg in the morning and evening did seem to help with symptom management. No worsening of any paresthesias. Does note that the numbness in her toes is more of an annoyance than pain. Would like to see if increasing during the day would help as well as she does not have any significant fatigue with increasing it to 400 mg in the morning. No other side effects with it. Notes good water intake but she does occasionally get lightheadedness in the evenings when she stands up too quickly, no syncope or falls with this. Notes that she still has some issues with sleeping through the night, no benefit with increasing gabapentin. No falls since last appointment. Does note that if she forgets the dosage her neuropathy is significant throughout the day. No new concerns today. REVIEW OF SYSTEMS GENERAL:No weight loss, malaise [...] - EXCEPT that as per HPI above. SKIN:Negative for lesions, rash, and itching. PSYCHIATRIC: Negative for sleep disturbance, mood disorder and recent psychosocial stressors. HEMATOLOGIC/LYMPHATIC/IMMUNOLOGIC:Nega tive for prolonged bleeding, bruising easily or swollen nodes. ENDOCRINE: Negative for cold or heat intolerance, polyuria, polydipsia and goiter. The remainder of the ROS was reviewed and is negative. LAB/IMAGING: Those performed since patient's last visit have been reviewed. None since last appointment MEDICATIONS: potassium chloride (K-TAB) 10 mEq tablet Take 1 tablet by mouth two times a day. tirzepatide, weight loss (ZEPBOUND) 5 mg/0.5 mL pen injector Inject 5 mg subcutaneously one time a week. pravastatin (PRAVACHOL) 80 mg tablet Take 80 mg by mouth once daily. cyanocobalamin, vitamin B-12, (VITAMIN B-12 ORAL) Take 5,000 mg by mouth every other day. MEDICATION, NON-DATABASE Alphalipoic metoprolol tartrate, short acting, (LOPRESSOR) 25 mg tablet Take 0.5 tablets by mouth once daily. omeprazole (PRILOSEC) 20 mg capsule Take 1 capsule by mouth once daily. eletriptan (RELPAX) 20 mg tablet Take 1 at start of headache, may repeat in 2 hours if necessary (total of 3 tablets) (Patient taking differently: Take 1 at start of headache, may repeat in 2 hours if necessary (total of 3 tablets in a 24 hour period)) levothyroxine (SYNTHROID) 88 mcg tablet Take 1/2 tablet 3 days a week and whole tablet rest of the week. lisinopril (ZESTRIL) 20 mg tablet Take 1 tablet by mouth twice daily. (Patient taking differently: Take 20 mg by mouth once daily.) CPAP/BIPAP/OTHER BiPAP 25/20 cmH2O. [employer]. Type .CPAPSettings into a note to see current settings/supplies/DME information. CPAP Bilevel 25/20 cmH2O, Resmed F20 FFM [...] 20 MG TAB) Take 1.5 tablet daily. gabapentin (NEURONTIN) 400 mg capsule Take 1 capsule by mouth three times a day for 180 days. sodium fluoride/pot nitrate(PREVIDENT 5000 SENSITIVE 1.1 %-5 [...] Social History Tobacco Use Smoking status: Former Current packs/day: 0.00 Average packs/day: 0.5 packs/day for 20.0 years (10.0 ttl pk-yrs) Types: Cigarettes Start date: 06/14/1983 Quit date: 06/14/2003 Years since quittin.1 Passive exposure: Never Smokeless tobacco: Never Vaping Use Vaping status: Never Used Substance Use Topics Alcohol use: Yes Comment: Occaisionally Drug use: No PHYSICAL EXAMINATION BP 128/85 Pulse 87 Resp 12 Wt 100 kg (220 lb 7.4 oz) LMP 02/13/2019 (Approximate) SpO2 96% BMI 35.43 kg/m GENERAL EXAM: General appearance: NAD, pleasant. HEENT: NC/AT, nasal congestion absent, no oral lesions, membranes moist. NECK: No masses, supple. Lungs: Breathing comfortably Extr: Moves all extremities without difficulty Skin: Cool to touch. No rash. NEUROLOGICAL EXAM: General: Awake, alert, oriented x3 (person,place,time), speech fluent, no dysarthria; comprehension, naming, repetition intact. Short and mcc memory intact. CN: PERRL, EOMI and without nystagmus, VFF to confrontation, facial sensation and strength are normal and symmetric, hearing is intact to finger rub bilaterally, palate and tongue movements are intact and symmetric. SCM and trapezius strength normal. Motor: Normal tone, bulk and strength (5/5) bilaterally (throughout extremities x4). Reflexes: 1/4 to the Achilles bilaterally, otherwise intact reflexes Coordination: Lysy-[id number]-ylko intact no tremors. Sensation: Decreased vibration at the great toe and ankle significantly, minimally decreased at the knee. Decreased sensation to temperature at the ankles compared to the hands. Gait: Narrow based and stable with normal stride and arm swing. Assessment and Plan: ASSESSMENT/PLAN: 1. Neuropathy - ICD9: 355.9, ICD10: G62.9 Patient with some improvement in her symptoms after increasing gabapentin to 400 mg in the morning and evening, 300 mg during the day. Did add on alpha lipoic acid but did not appreciate any benefit with this but will continue to take it as it can help slow the progression of neuropathy. Previous EMG did not show any evidence of large fiber neuropathy, but his symptoms worsen did offer repeat EMG but patient deferring at this time, did also offer skin biopsy patient deferring. Will continue to treat neuropathy. Patient would like to try increasing to 403 times a day, this new prescription was sent today. No significant daytime fatigue, dizziness or other side effects with increasing the dosage from 300 to 400 mg 3 times daily. No new concerns today that would warrant additional workup. Encouraged conservative therapy as well. Patient with occasional positional lightheadedness but no episodes of syncope, falls. Patient agreeable to treatment plan of care at this time, questions were answered. Patient to follow-up 6 months Luz Meeks PA-C I spent a total of 30 minutes on the date of the service which included preparing to see the patient, [id number] patient care, completing clinical documentation, obtaining and/or reviewing separately obtained history, performing a medically appropriate examination, counseling and educating the patient/family/caregiver, and ordering medications, tests, or procedures. This document has been created with the use of voice recognition technology. It may contain inaccuracies: (e.g. misspellings, inaccurate syntax or word sense) that have escaped review. [facility] website checked and validated. All prescriptions have been APPROPRIATELY filled. No suspicious activity was identified. 07/18/2024 by Luz Meeks PA-C documented in this encounter [facility] 07-17-2024 Telephone encounter Note Patient phones requesting refills as follows: Requested Prescriptions Pending Prescriptions Disp Refills potassium chloride (K-TAB) 10 mEq tablet 90 tablet 2 Sig: Take 1 tablet by mouth two times a day. Please review and advise. Edilson Sunshine MA [facility] 07-17-2024 Miscellaneous Notes Patient phones requesting refills as follows: Requested Prescriptions Pending Prescriptions Disp Refills potassium chloride (K-TAB) 10 mEq tablet 90 tablet 2 Sig: Take 1 tablet by mouth two times a day. Please review and advise. Edilson Sunshine MA documented in this encounter [facility] 06-26-2024 Telephone encounter Note Images from the original note were not included. Electronic PA completed and approved for zepbound.Prior authorization approved Payer: [employer] [phone] Note from payer: An active PA is already on file with expiration date of 12/01/2024. Please wait to resubmit request within 60 days of that expiration date to obtain a PA renewal. Electronic appeal: Not supported View History Medication Being Authorized tirzepatide, weight loss (ZEPBOUND) 5 mg/0.5 mL pen injector Inject 5 mg subcutaneously one time a week. Dispense: 2 mL Refills: 1 Start: 06/26/2024 Class: Normal Diagnoses: Class 2 obesity due to excess calories without serious comorbidity with body mass index (BMI) of 39.0 to 39.9 in adult This order has been released to its destination. To be filled at: e- [facility]/pharmacy #[id number] [place] [address] [address] [facility]. - [phone] [facility] [phone] Pharmacy notified. [facility] 06-26-2024 Miscellaneous Notes Images from the original note were not included. Electronic PA completed and approved for zepbound.Prior authorization approved Payer: [employer] [phone] Note from payer: An active PA is already on file with expiration date of 12/01/2024. Please wait to resubmit request within 60 days of that expiration date to obtain a PA renewal. Electronic appeal: Not supported View History Medication Being Authorized tirzepatide, weight loss (ZEPBOUND) 5 mg/0.5 mL pen injector Inject 5 mg subcutaneously one time a week. Dispense: 2 mL Refills: 1 Start: 06/26/2024 Class: Normal Diagnoses: Class 2 obesity due to excess calories without serious comorbidity with body mass index (BMI) of 39.0 to 39.9 in adult This order has been released to its destination. To be filled at: e- [facility]/pharmacy [id number] [place] [address] - [address] [facility] - [phone] [facility] [id number] Pharmacy notified. documented in this encounter [facility] 06-26-2024 Telephone encounter Note Prescription Refill Information The patient has been identified by name and date of : Yes Caregiver verified no other encounters exist for this prescription request: Yes Caregiver confirmed with patient/requestor that no other refills are due, in the near future, with this provider at this time: Yes The last office visit in the department: 05/09/24 Does the patient have a future office visit with this provider/department: Yes 08/11/24 Requested Prescriptions Pending Prescriptions Disp Refills tirzepatide, weight loss (ZEPBOUND) 5 mg/0.5 mL pen injector 2 mL 1 Sig: Inject 5 mg subcutaneously one time a week. Xochitl Menon LPN June 26, 2024 8:26 AM [facility] 06-26-2024 Miscellaneous Notes Prescription Refill Information The patient has been identified by name and date of : Yes Caregiver verified no other encounters exist for this prescription request: Yes Caregiver confirmed with patient/requestor that no other refills are due, in the near future, with this provider at this time: Yes The last office visit in the department: 05/09/24 Does the patient have a future office visit with this provider/department: Yes 08/11/24 Requested Prescriptions Pending Prescriptions Disp Refills tirzepatide, weight loss (ZEPBOUND) 5 mg/0.5 mL pen injector 2 mL 1 Sig: Inject 5 mg subcutaneously one time a week. Xochitl Menon LPN June 26, 2024 8:26 AM documented in this encounter [facility] 06-02-2024 Telephone encounter Note Increasing gabapentin in the morning and evening. Will add 100mg bid. 400mg in the morning, 300mg in afternoon and 400mg in the evening. PDMP website checked and validated. All prescriptions have been APPROPRIATELY filled. No suspicious activity was identified. 06/02/2024 by Luz Meeks PA-C [facility] 06-02-2024 Miscellaneous Notes Increasing gabapentin in the morning and evening. Will add 100mg bid. 400mg in the morning, 300mg in afternoon and 400mg in the evening. PDMP website checked and validated. All prescriptions have been APPROPRIATELY filled. No suspicious activity was identified. 06/02/2024 by Luz Meeks PA-C documented in this encounter [facility] 05-09-2024 History of Present illness Narrative Reason for Visit Patient presents with: Recheck: Thyroid, BP, Cholesterol Santos Allan is a 58 year old female who presents here today for CPE. Health Maintenance Depression Screening Anxiety Screening BP Controlled (<130/80) Hepatitis B Vaccine(1 of 3 - 19+ 3-dose series) Pneumococcal Vaccine(3 of 3 - PCV) Cervical Cancer Screening Covid-19 Vaccine( season) Mammogram Screening HPI Santos Allan is a 58 year old female Past medical hx of Hypertension, hyperlipidemia, obesity, hypothyroidism and hypoparathyroidism . Migraine, s/p removal of lap band , ibs, GERD,sjogrens disease, peripheral neuropathy of unclear etiology, hypokalemia, bipolar 1 disorder metabolic syndrome, Sleep apnea. Patient wants us to take over caring for most of her endocrine problems. She is to see Dr. Erika Gannon but has had reasons why she would like to switch over. Most of her endocrine issues are not active for the past few years. Obesity: History of gastric sleeve surgery in 2021 and gaining weight. Walks average of 5 days a week and eats small meals but is always hungry. Has spoke with dietitian and told to eat more protein but it is not helping. Has previously saxenda which was helpful and used prior to gastric sleeve. Has tried Cosentra which does not help. Currently on Zepbound, and just started at 5 mgs, weight is on the down jimenez trend. Hypothyroidism: takes medication as ordered. Denies any abnormal changes in energy. Recent TSH in normal range HTN: Ms. Allan indicates that she is feeling well and denies any symptoms referable to elevated blood pressure. Specifically denies headache, chest pain, palpitations, dyspnea, and peripheral edema. Patient denies any side effects of her medication(s) and is compliant with their regimen. She does not check BP's generally. Last 3 Encounter BP Readings: Date: BP: 01/07/2024 113/70 09/29/2023 128/80 08/30/2023 124/80 REMIGIO: she has never been a good sleeper, has trouble falling and staying asleep, feels claustrophobic with the sleep machine on. Does not sleep well on it or off it. Has been using her cpap irregularly as she sleeps sporadically chronically. Has tried melatonin but made her groggy. Has been on trazadone in the past for sleep which was helpful. Bipolar: Feels well controlled on current treatment, Sees Dr. Davies for psychiatry. Alcohol use: does not drink any alcohol Drug use: No Suicidal Thoughts: No suicidal ideation, intent or plan Sjogren: she is seeing Edilson Penn for her sjojgrens disease. No problem-specific Assessment & Plan notes found for this encounter. PAST MEDICAL HISTORY No date: Acid reflux No date: Anemia No date: Anxiety disorder in conditions classified elsewhere 03/03/2016: Arthritis No date: Bipolar I disorder, most recent episode (or current) unspecified No date: Hypothyroidism No date: Myalgia and myositis, unspecified No date: REMIGIO (obstructive sleep apnea) Comment: DME - [employer] for AutoPAP No date: Other and unspecified hyperlipidemia 05/31/2017: Right ankle sprain No date: Sjogren's disease (HCC) No date: Type II or unspecified type diabetes mellitus without mention of complication, uncontrolled Comment: since 2002 No date: Unspecified essential hypertension 03/10/2007: Unspecified vitamin D deficiency PAST SURGICAL HISTORY 09/13/2009: ANTERIOR INTERBODY FUSION, CERVICAL Comment: C5-C6 No date: ARTHROSCOPY KNEE DIAGNOSTIC W/WO SYNOVIAL BX SPX Comment: Right knee 09/13/2002: COLONOSCOPY FLX DX W/COLLJ SPEC WHEN PFRMD Comment: Colonoscopy - diagnosed with IBS 04/05/2013: COLONOSCOPY FLX DX W/COLLJ SPEC WHEN PFRMD Comment: Colonoscopy repeat 3 years 03/18/2016: COLONOSCOPY FLX DX W/COLLJ SPEC WHEN PFRMD Comment: Colonoscopy (MAC) 04/05/2013: ESOPHAGOGASTRODUODENOSCOPY TRANSORAL DIAGNOSTIC Comment: EGD 01/02/2015: ESOPHAGOGASTRODUODENOSCOPY TRANSORAL DIAGNOSTIC Comment: EGD 08/13/2008: LAP ADJUSTABLE GASTRIC BAND No date: PAST SURGICAL HISTORY OF Comment: left foot surgery 02/11/2013: PAST SURGICAL HISTORY OF Comment: left carpal tunnel 02/11/2013: PAST SURGICAL HISTORY OF Comment: radial styloidectomy 09/13/2013: PAST SURGICAL HISTORY OF Comment: c5,c6 refusion 08/2022: PT ED BARIATRIC AND METABOLIC; N/A No date: THYROIDECTOMY TOTAL/COMPLETE Comment: partial right - non malignant No date: TONSILLECTOMY PRIMARY/SECONDARY <AGE 12 Comment: Tonsillectomy FAMILY HISTORY Problem Relation Age of Onset Diabetes Mother Hypertension Mother Psychiatry Mother bipolar Breast Cancer Mother Cancer Mother breast, uterus/bone Lipids Mother Diabetes Father Hypertension Father Osteoporosis Father Colon Cancer Father Stroke Father Lipids Father Headache Father Hypertension Brother Lipids Brother Headache Brother Diabetes Brother Social History Tobacco Use Smoking status: Former Current packs/day: 0.00 Average packs/day: 0.5 packs/day for 20.0 years (10.0 ttl pk-yrs) Types: Cigarettes Start date: 06/14/1983 Quit date: 06/14/2003 Years since quittin.9 Passive exposure: Never Smokeless tobacco: Never Vaping Use Vaping status: Never Used Substance Use Topics Alcohol use: Yes Comment: Occaisionally Drug use: No Past medical history, appointments, medications, allergies reviewed. Pertinent Lab/Diagnostic Studies are reviewed and discussed today Current Outpatient Medications: pravastatin (PRAVACHOL) 80 mg tablet cyanocobalamin, vitamin B-12, (VITAMIN B-12 ORAL) MEDICATION, NON-DATABASE tirzepatide, weight loss (ZEPBOUND) 5 mg/0.5 mL pen injector gabapentin (NEURONTIN) 300 mg capsule omeprazole (PRILOSEC) 20 mg capsule eletriptan (RELPAX) 20 mg tablet potassium chloride (K-TAB) 10 mEq tablet levothyroxine (SYNTHROID) 88 mcg tablet lisinopril (ZESTRIL) 20 mg tablet CPAP/BIPAP/OTHER metoprolol tartrate, short acting, (LOPRESSOR) 12.5 mg tab CPAP leflunomide (ARAVA) 10 mg tablet cyclobenzaprine (FLEXERIL) 10 mg tablet Cholecalciferol, Vitamin D3, (VITAMIN D) 1,000 unit tab sulfaSALAzine (AZULFIDINE) 500 mg tablet aripiprazole (ABILIFY) 2 mg tablet cevimeline (EVOXAC) 30 mg ORAL capsule citalopram hydrobromide(CELEXA 20 MG TAB) sodium fluoride/pot nitrate(PREVIDENT 5000 SENSITIVE 1.1 %-5 % DENTAL PASTE) atorvastatin (LIPITOR) 20 mg tablet Review of Systems CONSTITUTIONAL: No fevers, chills, nightsweats, unintended weight loss HEENT: Denies frequent or severe heaches, nasal congestion/sinus symptoms, problematic allergy problems. EYES: No diplopia or blurry vision. CARDIOVASCULAR: No chest pain, dyspnea, palpitations, orthopnea, PND, ankle edema. PULM: No dyspnea, unexplained cough. GI: No dysphagia/odynophagia, problematic reflux, constipation, diarrhea, changes in stool habits, hematochezia, melena. : No new urinary complaints, including dysuria, gross hematuria or pyuria. NEURO: No new balance problems, peripheral weakness/paresthesias or numbness of concern. MUSC-SKEL: No new joint pain, swelling, or erythema. PSY: No concerns regarding depression, anxiety or panic. INTEGUMENTARY: No new skin changes (rash, new or changing mole, new growth) Physical Exam BP 124/78 (BP Site: Left Arm) Pulse 80 Ht 168 cm (5' 6.14) Wt 108.5 kg (239 lb 3.2 oz) LMP 02/13/2019 (Approximate) SpO2 97% BMI 38.44 kg/m General appearance: Well appearing, alert, in no acute distress, well-hydrated, well nourished. Skin: Skin color, texture, turgor normal, no suspicious rashes or lesions Head: Normocephalic, no masses, lesions, tenderness or abnormalities Eyes: Anicteric sclera. Pupils are equally round and reactive to light. Extraocular movements are intact. Ears: External ears normal, canals clear Nose/Sinuses: Nares normal, septum midline, mucosa normal, no drainage or sinus tenderness Oropharynx: Lips, mucosa, and tongue normal, teeth and gums normal, oropharynx normal Neck: Supple, no adenopathy; thyroid symmetric, normal size, no bruits Back: Normal exam Lungs: Lungs clear to auscultation. No wheezing, rhonchi, rales Heart: RRR without murmur, gallop, or rubs. No ectopy Abdomen: Normal abdominal exam, Abdomen soft, non-tender. Bowel sounds normal. No masses, organomegaly Extremities: No deformities, edema, skin discoloration, clubbing or cyanosis. Good capillary refill. Musculoskeletal: No joint swelling, deformity, or tenderness Peripheral pulses: Normal Neuro: Gait normal. Reflexes normal and symmetric. Sensation grossly intact. ASSESSMENT/PLAN: 1. Annual physical exam - ICD9: V70.0, ICD10: Z00.00 (primary diagnosis) - Counseled on healthy diet and regular exercise 2. Screening for depression - ICD9: V79.0, ICD10: Z13.31 - DEPRESSION SCREENING 3. Encounter for screening examination for other mental health and behavioral disorders - ICD9: V79.8, ICD10: Z13.39 - ANXIETY SCREENING 4. Encounter for immunization - ICD9: V03.89, ICD10: Z23 - PNEUMOCOCCAL VACCINE, 23 VALENT (PNEUMOVAX 23) 5. Encounter for screening mammogram for breast cancer - ICD9: V76.12, ICD10: Z12.31 - Encouraged monthly BSE - Follow up for annual exam in one year. - ADALBERTO SCREENING W CHUCK - ADALBERTO SCREENING 6. Essential hypertension - ICD9: 401.9, ICD10: I10 - Controlled - Recommend home blood pressure monitoring, to bring results to next visit - Encouraged sodium restriction, DASH or Mediterranean diet - Recommend regular aerobic exercise 7. Mixed hyperlipidemia - ICD9: 272.2, ICD10: E78.2 - Controlled - Counseled on healthy diet and regular exercise 8. Hypoparathyroidism, unspecified hypoparathyroidism type (HCC) - ICD9: 252.1, ICD10: E20.9 -This has been stable for the past many years 9. Sjogren syndrome with dental involvement (HCC) - ICD9: 710.2, ICD10: M35.0C Dry mouth. She has significant dry mouth which also makes it very hard for her to use her sleep machine. Cevimeline on board and she is on 2 medications as a DMA RD Ana Bolaños MD documented in this encounter [facility] 04-13-2024 Telephone encounter Note Patient MyChart message requesting the following refill Refill(s) Requested: Requested Prescriptions Pending Prescriptions Disp Refills gabapentin (NEURONTIN) 300 mg capsule 270 capsule 1 Sig: Take 1 capsule by mouth three times a day for 180 days. ALLERGIES Allergen Reactions Imitrex [Sumatripta* Face went numb (home) [phone] (work) [phone] (cell) Last Office Visit Date: 03/03/2024 Last [facility] Visit: 04/03/2024 Future Appointment: 05/08/2024 The patients preferred pharmacy has been captured for this encounter? yes Request is for script(s) to be escript to pharmacy. Kristina Law LPN [facility] 04-13-2024 Miscellaneous Notes Patient MyChart message requesting the following refill Refill(s) Requested: Requested Prescriptions Pending Prescriptions Disp Refills gabapentin (NEURONTIN) 300 mg capsule 270 capsule 1 Sig: Take 1 capsule by mouth three times a day for 180 days. ALLERGIES Allergen Reactions Imitrex [Sumatripta* Face went numb (home) [phone] (work) [phone] (cell) Last Office Visit Date: 03/03/2024 Last [facility] Visit: 04/03/2024 Future Appointment: 05/08/2024 The patients preferred pharmacy has been captured for this encounter? yes Request is for script(s) to be escript to pharmacy. Kristina Law LPN documented in this encounter [facility] 04-05-2024 Telephone encounter Note Images from the original note were not included. The office rec'd and completed electronic PA for zepbound. This has been approved. Prior authorization approved Payer: [employer] [phone] CaseId:[id number];Status:Approved;Review Type:Prior Auth;Coverage Start Date:04/03/2024;Coverage End Date:12/01/2024; Approval Details Authorized from April 03, 2024 to December 01, 2024 Electronic appeal: Not supported View History Medication Being Authorized tirzepatide, weight loss (ZEPBOUND) 2.5 mg/0.5 mL pen injector Inject 2.5 mg subcutaneously one time a week. Dispense: 2 mL Refills: 1 Start: 04/03/2024 Class: Normal Diagnoses: Class 2 obesity due to excess calories without serious comorbidity with body mass index (BMI) of 39.0 to 39.9 in adult This order has been released to its destination. To be filled at: e- [id number] [place] [address] [id number] [facility]. - [phone] [facility] [phone] Pt notified via my chart. [facility] 04-05-2024 Miscellaneous Notes Images from the original note were not included. The office rec'd and completed electronic PA for zepbound. This has been approved. Prior authorization approved Payer: [employer] [phone] CaseId:[id number];Status:Approved;Review Type:Prior Auth;Coverage Start Date:04/03/2024;Coverage End Date:12/01/2024; Approval Details Authorized from April 03, 2024 to December 01, 2024 Electronic appeal: Not supported View History Medication Being Authorized tirzepatide, weight loss (ZEPBOUND) 2.5 mg/0.5 mL pen injector Inject 2.5 mg subcutaneously one time a week. Dispense: 2 mL Refills: 1 Start: 04/03/2024 Class: Normal Diagnoses: Class 2 obesity due to excess calories without serious comorbidity with body mass index (BMI) of 39.0 to 39.9 in adult This order has been released to its destination. To be filled at: [id number] [place] [address] [address] [facility]. - [phone] [phone] Pt notified via my chart. documented in this encounter [facility] 04-03-2024 Instructions Jacquie Clarke, LIZETH.ELECTRONIC CALIBRATION TECHNICIAN - 04/03/2024 11:48 AM EDT Tirzepatide Injection (Zepbound ) average cost $1000/month How does it work? Zepbound works by mimicking two hormones (GLP-1 and GIP) made by the intestines. These two gut hormones are essential to the body, and they improve feelings of fullness and insulin sensitivity and delay gastric emptying (the time it takes for food to leave the stomach for the small intestines) Weight-loss: In a double-blind, randomized, controlled trial, the highest dose of tirzepatide (15 milligrams) resulted in a 22.5% reduction in weight, or 52 pounds, over the course of 72 weeks. Lower doses of 10 milligrams and 5 milligrams also showed weight reduction. While these results are very encouraging, it s worth noting that the study was funded by [employer]. Another double-blind, placebo-controlled trial examined the effects of tirzepatide on weight loss after participants were enrolled in an intensive lifestyle intervention program for weight loss and then either given tirzepatide or a placebo at random. The group receiving tirzepatide in addition to lifestyle intervention had a weight loss of 26.6% compared with a weight loss of 3.8% for those given the placebo.This research also received funds from [employer]. Concerns: The most common side effects are nausea, diarrhea, vomiting and constipation documented in this encounter [facility] 04-03-2024 History of Present illness Narrative This Team Access Model visit is a virtual encounter. It required patient-provider interaction for the medical decision making as documented below. I have communicated my name and active licensure. The patient's identity and physical location were verified at the time of this visit. Either the patient or their legal customer relations representative has been informed of the risks and benefits of -- and alternatives to -- treatment through a remote evaluation and consents to proceed with the evaluation remotely. Patient Location: [place] CC: Patient presents with: Medication Follow-up HPI Santos Allan is a 58 year old female who is contacted today for a virtual visit. This is an established patient of Dr. Ana Bolaños MD. Patient has been on Adipex for two months. Initially lost about 7 lbs but now her weight has been fluctuating up and down and her appetite is no longer suppressed. She is interested in trying the injectable weight loss medication Zepbound. REVIEW OF SYSTEMS See HPI PAST MEDICAL HISTORY Diagnosis Date Acid reflux [...] <AGE 12 Tonsillectomy ALLERGIES Imitrex [Sumatriptan] MEDICATIONS Phentermine HCl 37.5 mg tablet Take 1 tablet by mouth daily before breakfast for 90 days. traZODone (DESYREL) 50 mg tablet TAKE 1 TABLET BY MOUTH EVERYDAY AT BEDTIME (Patient not taking: Reported on 03/28/2024) omeprazole (PRILOSEC) 20 mg capsule Take 1 capsule by mouth once daily. eletriptan (RELPAX) 20 mg tablet Take 1 at start of headache, may repeat in 2 hours if necessary (total of 3 tablets) (Patient taking differently: Take 1 at start of headache, may repeat in 2 hours if necessary (total of 3 tablets in a 24 hour period)) gabapentin (NEURONTIN) 300 mg capsule Take 1 capsule by mouth three times a day for 180 days. potassium chloride (K-TAB) 10 mEq tablet Take [...] Cigarettes Quit date: 06/14/2003 Years since quittin.8 Passive exposure: Never Smokeless tobacco: Never Vaping Use Vaping Use: Never used Substance Use Topics Alcohol use: Yes Comment: Occaisionally Drug use: No EXAM: Virtual visit completed using video, limited exam completed. GENERAL: alert and appropriate, in no distress, well-hydrated, well nourished, and happy, smiling, interactive ASSESSMENT/PLAN: 1. Class 2 obesity due to excess calories without serious comorbidity with body mass index (BMI) of 39.0 to 39.9 in adult - ICD9: 278.00, V85.39, ICD10: E66.09, Z68.39 Reviewed weight loss medication options. Advised patient it is unlikely Zepbound will be covered by her insurance for weight loss and out of pocket costs are typically substantial. She was also questioning compounded Zepbound, I advised against this due to potential for harmful or poor quality ingredients. Side effects reviewed. - TIRZEPATIDE (WEIGHT LOSS) 2.5 MG/0.5 ML SUBCUTANEOUS PEN INJECTOR Prescription instructions reviewed with patient as applicable. Potential red flag symptoms discussed with the patient. Reviewed appropriate action plan to take if red flag symptoms occur. Patient agreeable to treatment plan. Jacquie Clarke APRN.ELECTRONIC CALIBRATION TECHNICIAN documented in this encounter [facility] 03-28-2024 Instructions Luz Meeks PA-C - 03/28/2024 7:36 AM EDT Alpha lipoic 600mg and continue gabapentin 300mg three times a day Increase water intake, slow transitions from sitting to standing, compression socks if you have leg swelling Follow up as needed documented in this encounter [facility] 03-28-2024 History of Present illness Narrative Images from the original note were not included. [facility] Outpatient [facility] Date: March 28, 2024 Patient Name: Santos Allan Referring physician: No referring provider defined for this encounter. Primary physician: Ana Bolaños [address] [place] [address] Reason for Evaluation: Paresthesias Subjective HPI Santos Allan is a 58 year old right-handed female with history of HTN, DM type 2 (in 30s then had bariatric surgery), HLD, bipolar 1, anxiety, anemia, sjogrens, hypothyroidism, REMIGIO who presents for evaluation of paresthesias. Dr. Ana Bolaños MD is the PCP. Chart review: Following with pain clinic for neuropathy, Dr. Reddy. EMG showing S1 no signs of neuropathy. Saw PCP in September Had injection for low back pain a [...] time day and night varying in severity. Last saw Dr. Quinteros in 2021 for REMIGIO and migraines. Patient presents for evaluation of paresthesias. Patient notes that her symptoms have been ongoing for the last 2 years or so. Notes that they began after she started Topamax and continue this therapy for about a year and a half, after she stopped it she assumed her numbness and tingling would go away but they continued for the last 6 months. Notes that her B12 is normal, EMG was normal. Also mentioned to her pain management provider but encouraged her to see neurology. Describes a painful burning sensation with a numbness feeling and occasional zapping pains to her feet bilaterally. Was put on gabapentin which did seem to help the symptoms but did not alleviate them. Unsure if she has any weakness and attributes this mostly to being numb. Notes that her symptoms are constant into bilateral feet all the time, no falls, tripping. Does report some chronic IBS but no change in bowel habits. Did have cervical surgery and lumbar surgery, is been followed with pain management and had an ablation done to her low back without any benefit to her symptoms. Notes that she does have occasional numbness to the right hand to the first and second digit but reports a history of carpal tunnel syndrome. Did have diabetes in her 30s which completely resolved after bariatric surgery, was taking B complex for about a year until a few months ago and is now only taking B12. Notes some high alcohol use about 10 years ago but none since. No heavy metal exposure, no chemotherapy, does not her brother has neuropathy in his feet but has poorly controlled diabetes. 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 Does have history of sleep apnea but is noncompliant with her CPAP machine. Does follow with sleep medicine virtually. Last sleep study was in 2018 but notes she is lost 30 to 40 pounds since that time. Labs/Imaging EMG 09/24/23 Study Interpretation Electrodiagnostic examination of the right lower limb, with additional nerve conduction and needle electrode studies of the left lower limb reveals changes most consistent with the followin. 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 Active motor axon loss change is seen in the medial gastrocnemius. Similar changes are seen on the left, suggesting this is a bilateral process. 2. No definite evidence of a large fiber sensorimotor polyneuropathy. Medications: Current Outpatient Medications Medication Sig Dispense Refill Phentermine HCl 37.5 mg tablet Take 1 tablet by mouth daily before breakfast for 90 days. 30 tablet 2 omeprazole (PRILOSEC) 20 mg capsule Take 1 capsule by mouth once daily. 90 capsule 3 eletriptan (RELPAX) 20 mg tablet Take 1 at start of headache, may repeat in 2 hours if necessary (total of 3 tablets) (Patient taking differently: Take 1 at start of headache, may repeat in 2 hours if necessary (total of 3 tablets in a 24 hour period)) 14 tablet 5 potassium chloride (K-TAB) 10 mEq tablet Take 1 tablet by mouth twice daily. levothyroxine (SYNTHROID) 88 mcg tablet Take 1/2 tablet 3 days a week and whole tablet rest of the week. lisinopril (ZESTRIL) 20 mg tablet Take 1 tablet by mouth twice daily. 180 tablet 3 atorvastatin (LIPITOR) 20 mg tablet Take 1 tablet by mouth once daily. 90 tablet 3 CPAP/BIPAP/OTHER BiPAP 25/20 cmH2O. [employer]. Type .CPAPSettings into a note to see current settings/supplies/DME information. 1 Each 0 metoprolol tartrate, short acting, (LOPRESSOR) 12.5 mg tab Take 12.5 mg by mouth every 12 hours. CPAP Bilevel 25/20 cmH2O, Resmed F20 FFM (small), Ti max 2.0, Ti min 0.3, Trigger medium, Cycle medium, HUMIDITY, LIFETIME SUPPLIES. 1 Each 999 leflunomide (ARAVA) 10 mg tablet Take 2 tablets by mouth once daily. cyclobenzaprine (FLEXERIL) 10 mg tablet Take 1 tablet by mouth three times daily. (Patient taking differently: Take 10 mg by mouth two times a day.) 9 tablet 0 Cholecalciferol, Vitamin D3, (VITAMIN D) 1,000 unit [...] Take 60 mg by mouth twice daily. 0 citalopram hydrobromide(CELEXA 20 MG TAB) Take 1.5 tablet daily. 0 0 traZODone (DESYREL) 50 mg tablet TAKE 1 TABLET BY MOUTH EVERYDAY AT BEDTIME (Patient not taking: Reported on 03/28/2024) 90 tablet 1 gabapentin (NEURONTIN) 300 mg capsule Take 1 capsule by mouth three times a day for 180 days. 270 capsule 1 sodium fluoride/pot nitrate(PREVIDENT 5000 SENSITIVE 1.1 %-5 % DENTAL PASTE) 0 No current facility-administered medications for this visit. ROS ROS: Her ROS was positive for that mentioned in the HPI. Otherwise a 10-point ROS was completed and was negative. ALLERGIES Allergen Reactions Imitrex [Sumatripta* Face went numb Past Medical History: PAST MEDICAL HISTORY Diagnosis Date Acid reflux [...] essential hypertension Unspecified vitamin D deficiency 03/10/2007 Family History: FAMILY HISTORY Problem Relation Age of Onset Diabetes Mother Hypertension Mother Psychiatry Mother bipolar Breast Cancer Mother Cancer Mother breast, uterus/bone Lipids Mother Diabetes Father Hypertension Father Osteoporosis Father Colon Cancer Father Stroke Father Lipids Father Headache Father Hypertension Brother Lipids Brother Headache Brother Diabetes Brother Also includes: . 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 Head: Normocephalic Pulm: Breathing comfortably Neck: Supple Psych: Cooperative, appropriate affect Neurological Examination: Mental Status: Alert and Oriented to Place, Person, Time and Situation and Patient follows commands.. Language: Is intact to Comprehension, Fluency and Repetition Cranial Nerves: CNII: Visual acuity normal, visual rinaldi full to confrontation CNIII, IV, : Pupils equal, round and reactive to light, full extraoccular movements, without nystagmus CN V: Facial sensation intact bilaterally to fine touch CN VII: Facial muscles symmetric and strong CN VIII: Hears finger rub well bilaterally CN IX: Gag Reflex not examined CN X: Palate elevates symmetrically CN XI: Full strength shoulder shrug bilaterally CN XII: Tongue protrusion full and midline Motor Exam: Tone - Normal Tone noted in all extremities Bulk - Normal bulk noted in all muscles tested. Inspection - Normal, no fasciculations or tremors noted. Power: MUSCLES Upper Extremity RIGHT LEFT Deltoid 5/5 5/5 Biceps 5/5 5/5 Triceps 5/5 5/5 Wrist Extension 5/5 5/5 Wrist Flexion 5/5 5/5 Finger Flexion 5/5 5/5 Finger Extension 5/5 5/5 Finger Abd 5/5 5/5 Finger Add 5/5 5/5 MUSCLES Lower Extremity RIGHT LEFT Hip Flexion 5/5 5/5 Hip Extension 5/5 5/5 BiFem (Knee Flex) 5/5 5/5 Quads (Knee Ext) 5/5 5/5 Gastroc (Plantflx) 5/5 5/5 TibAnt (Dorsiflx) 5/5 5/5 FlxHLong (Toe Flex) 5/5 5/5 ExtHLong (Toe Ext) 5/5 5/5 Sensory Examination Absent sensation to vibration at great toe, decreased at the ankle and normal at the knee. Decreased sensation to pinprick and temperature to the feet bilaterally and equally compared to the hands. This decreases present on the way up to the mid tib-fib. Mild sway on proprioception but no out right pseudoathetosis . Reflexes Right Left Bicep 2/4 2/4 BrRad 2/4 2/4 Knee 2/4 2/4 Ankle 1+/4 1+/4 Plantar Response Downward response Downward response Martinez Response Negative Negative Coordination: finger-to- nose-finger intact bilaterally and [id number] intact bilaterally. Gait: Patient's gait is normal, can heel and toe walk and can tandem walk Romberg: Negative DATA REVIEWED Actual films/image/tracing reviewed and summarized as follows: EMG Old records reviewed and summarized as follows: PCP Assessment/Plan Assessment & Plan: Santos Allan is a 58 year old right-handed female with a history of HTN, DM type 2 (in 30s then had bariatric surgery), HLD, bipolar 1, anxiety, anemia, sjogrens, hypothyroidism, REMIGIO . Her examination demonstrates decreased sensation to her feet, intact strength and reflexes in BLE. Patient with around 2 years of constant numbness and tingling of her feet bilaterally. Started while she was on Topamax but continued even when she stopped it 6 months ago. Patient does have signs and symptoms of neuropathy in her lower extremities, did have an EMG done in September that was negative for any signs of neuropathy but did show S1 Radiculopathy. Has been following with pain management and had an ablation in her lumbar spine which did not help her feet. Symptoms are primarily to the toes and the balls of the feet but occasionally has shooting pains into the foot. Also reporting some numbness and tingling to the first and second digit on the right hand but this is intermittent and believes due to carpal tunnel syndrome. Has a history of diabetes in her 30s but states this resolved after bariatric surgery, recent A1c was normal. Also notes history of heavy alcohol use about 10 years ago but no longer. No history of chemotherapy or other risk factors for neuropathy. Does take B12 and recent B12 was normal. At this time, discussed that patient likely has neuropathy, discussed further testing including repeat EMG, skin biopsy but patient deferring at this time. Is currently on gabapentin 300 mg 3 times daily and we will take over this prescription as patient would like me to manage her neuropathy. Does not need any refills at this time. Discussed adding alpha lipoic acid and patient is amenable. Should this not be beneficial may consider increasing gabapentin dosage in the future. Patient without any significant lightheadedness, does report this happens from time to time. Encouraged increasing water intake, compression socks and slow transition from sitting to standing. Of note, patient also with sleep apnea and is not very compliant with her CPAP. Discussed risks of untreated REMIGIO and patient is amenable to continuing her CPAP therapy. Patient agreeable to treatment plan of care at this time, questions were answered. Patient to follow-up in 3 to 6 months or sooner should any symptoms change or worsen. Santos was seen today for neuropathy. Diagnoses and all orders for this visit: Neuropathy She should return to see me in 3-6 months. I spent a total of 50 minutes on the date of the service which included preparing to see the patient, [id number] patient care, completing clinical documentation, obtaining and/or reviewing separately obtained history, performing a medically appropriate examination, counseling and educating the patient/family/caregiver, and ordering medications, tests, or procedures. Luz Meeks PA-C [facility] This document has been created with the use of voice recognition technology. It may contain inaccuracies: (e.g. misspellings, inaccurate syntax or word sense) that have escaped review. 03/21/2024 PROMIS Global Health Physical Health Summary Physical health: Good Everyday physical activity, ability: Mostly Fatigue: Moderate Pain level: 5 General health: Good Social activities/roles, ability: Good Physical Health T-Score 42.3 (Good) Physical Health Percentile 22 PROMIS Global Health Mental Health Summary Quality of life: Very good Mental health (mood,thinking): Excellent Social satisfaction: Very good Emotional problems (anxious,depressed): Never Mental Health T-Score 59 (Excellent) Mental Health Percentile 82 PROMIS Physical Function T-Score 39(Moderate Dysfunction) PROMIS Physical Function Percentile 14 PROMIS Pain Interference T-Score 62(Moderate) PROMIS Pain Interference Percentile 12 Percentiles provide an indication of how a patient's score ranks in relation to the [place] general population. > 31st percentile is within normal limits or better *< 31st percentile is at least SD worse than population, which may be clinically relevant < 16th percentile is at least 1 SD worse than population and warrants attention documented in this encounter [facility] 06-21-2024 History of Present illness Narrative CC: Patient presents with: 1 month follow up HPI Santos Allan is a 58 year old female who presents today for above. Currently taking Adipex x 1 month Weight/BMI Last 1 Encounter Wt Readings: Date: Wt: 03/03/2024 109.3 kg (241 lb) BMI 38.61 kg/(m^2) Last visit Wt: 112 kg (247 lb) BMI: 39.57 kg/(m^2) DIET Daily serving of fruits:1-2 Daily serving of vegetables:1-2 Daily serving of protein:3-5 Fluid intake:mostly water Do you Skip meals:NO Eating away from home:NO Exercise routine: YES walking program three days a week Medication side effects: Increased heart rate: No Insomnia: No Constipation: No Nervousness: No Impairment of concentration/attention, difficulty with memory, speech or language problems (particularly word-finding difficulties): No ROS as above, otherwise non-contributory. Reviewed PMHx, PSHx, social Hx, medications and allergies. PHYSICAL EXAM BP 118/84 Pulse 89 Resp 16 Wt 109.3 kg (241 lb) LMP 02/13/2019 (Approximate) SpO2 94% BMI 38.61 kg/m General Appearance: well appearing, in no acute distress, alert Pysch: mood and affect broad and appropriate ASSESSMENT/PLAN: 1. Class 2 obesity due to excess calories without serious comorbidity with body mass index (BMI) of 38.0 to 38.9 in adult - ICD9: 278.00, V85.38, ICD10: E66.09, Z68.38 Weight decreasing, BP stable - Continue healthy diet consisting of fruits, vegetables and lean proteins. Reduce sugary drinks of artificial juices and sodas and replace with water and low calorie Crystal Light. Healthy Snack alternatives have been discussed - Continue exercise or meaningful activity for 20 minutes at lest 3 times a day - reviewed SE, medication expectations, required weight loss - Follow-up in 2 month(s) or as needed Prescription instructions reviewed with patient as applicable. Potential red flag symptoms discussed with the patient. Reviewed appropriate action plan to take if red flag symptoms occur. Patient agreeable to treatment plan. During this patient visit I have spent approximately 20 minutes in counseling regarding treatment options, medications, and coordinating care. Jacquie Clarke APRN.ELECTRONIC CALIBRATION TECHNICIAN documented in this encounter [facility] 02-04-2024 Instructions Jacquie Clarke APRN.BRITANY - 02/04/2024 7:23 AM EDT What is Phentermine/Adipex? Phentermine, a prescription weight loss medication, is an appetite suppressant which acts as a powerful tool in the fight against excess weight. It can help you feel more in control of your appetite and food cravings. It can increase your satiety, which means that when you eat you will feel full sooner. And finally, it can help take your mind off food, so that you can think about other things. However, it is not a magic pill . It is important to remember that it is only a tool and will work best if you also make healthy life-style changes, such as modifying your diet, and increasing your activity level Who cannot take Phentermine/Adipex? You cannot take phentermine if you are (if you become while taking Phentermine, you should discontinue its use), nursing or have had an allergic reaction to it. You also cannot take Phentermine if you have uncontrolled high blood pressure, have an abnormal heart rhythm needing medication, have had a heart attack, have been diagnosed with Atherosclerosis, have epilepsy, have a history of amphetamine abuse or are taking any other prescribed stimulant including but not limited to medications for ADD/ADHD. What side effects have been reported for Phentermine/Adipex? Stimulation: Phentermine is a stimulant and many patients report feeling speedy or having extra energy while taking the medications. Many patients find this side effect to be desirable. Occasionally, patients find it unpleasant. In either case, the stimulant effect of the medication decreases with time. Dry Mouth: Most patients will experience some degree of dry mouth while taking phentermine. This side effect will help remind you to increase your water intake. Insomnia: Because it is a stimulant, phentermine will most likely keep you awake if you take it too late in the day. This side effect also decreases in most patients after they have been on the medication for several weeks. Irritability: Occasionally patients will notice that they are more irritable while taking phentermine. This side effect may be more common in men. Very rarely a patient may need to stop taking phentermine because of this side effect. Constipation: Occasionally patients will have a problem with constipation while taking phentermine. This occurs most often in individuals who have had prior problems with constipation. If you eat a high fiber diet and drink plenty of water, it is less likely to occur. Increased Heart Rate: Your heart rate may increase slightly while taking phentermine. You probably will not notice this unless you count your pulse rate. Heart rate generally goes down with weight loss. Caffeine increases the likelihood that you will notice this side effect. Jitteriness: Due to its stimulant effect phentermine can make some patients to feel jittery or shaky. This side effect generally decreases with time. The jitteriness caused by phentermine is much less severe that associated with many over the counter diet medications. What about caffeine? Both Phentermine/Adipex and caffeine are stimulants. They both can cause insomnia, increased heart rate and jitteriness. It is likely that if you use caffeine while taking Phentermine/Adipex these side effects will be increased. It is recommended that you limited your caffeine use while taking Phentermine/Adipex. This is particularly important during the first week or two you are taking phentermine. What time of day should I take Phentermine/Adipex? Generally, it is best to take Phentermine/Adipex shortly after you wake up, take on an empty stomach and wait at least 30 minutes before eating. The closer you take phentermine to the time you go to bed, the more likely it is to keep you awake. Generally, it is not advised to take phentermine less than 8 hours before bedtime. If you miss a dose, do not take extra medicine to make up the missed dose. How long can I stay on Adipex? You can now be treated for more than 3 months providing that you lose at least 5% of your total body weight (12.5 lbs) by the end of 90 days. Safety beyond six months to a year has not been established. CALL THE OFFICE IMMEDIATELY IF YOU EXPERIENCE ANY OF THE FOLLOWING SYMPTOMS: Feeling short of breath, even with mild exertion Swelling or rapid weight gain Chest pain, fast or uneven heartbeat or feeling like you might pass out Unusual thoughts or behavior or feeling restless or confused Very high blood pressure, severe headache, blurred vision or buzzing in your ears documented in this encounter [facility] 02-04-2024 History of Present illness Narrative CC: Patient presents with: 4 week follow up: Req: referral to neurology for neuropathy , starting phentermine or zepbound HPI Santos Allan is a 58 year old female who presents today for above. She would like to start Adipex for weight loss. Weight/BMI Last 1 Encounter Wt Readings: Date: Wt: 02/04/2024 112 kg (247 lb) BMI 39.57 kg/(m^2) DIET Daily serving of fruits:1-2 Daily serving of vegetables:1-2 Daily serving of protein:3-5 Fluid intake:mostly water or unsweetened iced tea Do you Skip meals:NO Eating away from home:NO Exercise routine: YES Program: walking Frequency: 3 times per week History of drug abuse/addiction: No or : No History of seizure disorder/epilepsy: No Uncontrolled hypertension: No History of cardiac arrhythmia: No Review of Systems See HPI PAST MEDICAL HISTORY Diagnosis Date Acid reflux [...] <AGE 14 Tonsillectomy ALLERGIES Imitrex [Sumatriptan] MEDICATIONS traZODone (DESYREL) 50 mg tablet TAKE 1 TABLET BY MOUTH EVERYDAY AT BEDTIME omeprazole (PRILOSEC) 20 mg capsule Take 1 capsule by mouth once daily. eletriptan (RELPAX) 20 mg tablet Take 1 at start of headache, may repeat in 2 hours if necessary (total of 3 tablets) (Patient taking differently: Take 1 at start of headache, may repeat in 2 hours if necessary (total of 3 tablets in a 24 hour period)) gabapentin (NEURONTIN) 300 mg capsule Take 1 capsule by mouth three times a day for 180 days. potassium chloride (K-TAB) 10 mEq tablet Take [...] Types: Cigarettes Quit date: 06/14/2003 Years since quittin.6 Passive exposure: Never Smokeless tobacco: Never Vaping Use Vaping Use: Never used Substance Use Topics Alcohol use: Yes Comment: Occaisionally Drug use: No BP 128/88 Pulse 84 Resp 16 Wt 112 kg (247 lb) LMP 02/13/2019 (Approximate) SpO2 95% BMI 39.57 kg/m Physical Exam Vitals reviewed. Constitutional: Appearance: Normal appearance. Neurological: Mental Status: She is alert. Psychiatric: Attention and Perception: Attention and perception normal. Mood and Affect: Mood and affect normal. Speech: Speech normal. Behavior: Behavior normal. Behavior is cooperative. Thought Content: Thought content normal. Judgment: Judgment normal. ASSESSMENT/PLAN: 1. Class 2 obesity due to excess calories without serious comorbidity with body mass index (BMI) of 39.0 to 39.9 in adult - ICD9: 278.00, V85.39, ICD10: E66.09, Z68.39 Patient meets criteria for Adipex, no contraindications - start Adipex 37.5 mg daily - Continue healthy diet consisting of fruits, vegetables and lean proteins. Reduce sugary drinks of artificial juices and sodas and replace with water and low calorie Crystal Light. Healthy Snack alternatives have been discussed - Continue exercise or meaningful activity for 20 minutes at lest 3 times a day PDMP website checked and validated. All prescriptions have been APPROPRIATELY filled. No suspicious activity was identified. 02/04/2024 by Jacquie Clarke APRN.ELECTRONIC CALIBRATION TECHNICIAN - reviewed SE, medication expectations, required weight loss (12.5 lbs) - Follow-up in 1 month(s) or as needed - PHENTERMINE 37.5 MG TABLET Behavioral Health Screening JINNY-7 Score: 0. Recommendation: no further intervention at this time Prescription instructions reviewed with patient as applicable. Potential red flag symptoms discussed with the patient. Reviewed appropriate action plan to take if red flag symptoms occur. Patient agreeable to treatment plan. During this patient visit I have spent approximately 30 minutes in counseling regarding treatment options, medications, and coordinating care. Jacquie Clarke APRN.BRITANY documented in this encounter [facility] 01-31-2024 Telephone encounter Note The following approved medication requests have been transmitted electronically. Requested Prescriptions Pending Prescriptions Disp Refills traZODone (DESYREL) 50 mg tablet [Pharmacy Med Name: TRAZODONE 50 MG TABLET] 90 tablet 1 Sig: TAKE 1 TABLET BY MOUTH EVERYDAY AT BEDTIME Balwinder Hernandez APRN.BRITANY [facility] Work Phone: 01-31-2024 Miscellaneous Notes The following approved medication requests have been transmitted electronically. Requested Prescriptions Pending Prescriptions Disp Refills traZODone (DESYREL) 50 mg tablet [Pharmacy Med Name: TRAZODONE 50 MG TABLET] 90 tablet 1 Sig: TAKE 1 TABLET BY MOUTH EVERYDAY AT BEDTIME Balwinder Hernandez APRN.CNP Patient has been identified by name and date of : No Patient phones for refill(s): Requested Prescriptions Pending Prescriptions Disp Refills traZODone (DESYREL) 50 mg tablet [Pharmacy Med Name: TRAZODONE 50 MG TABLET] 90 tablet 1 Sig: TAKE 1 TABLET BY MOUTH EVERYDAY AT BEDTIME Date of last office visit in primary care: 01/07/2024 Date of next office visit in primary care: 02/04/2024 Please advise. Thank you. Maria C Canela LPN. documented in this encounter [facility] 01-31-2024 Telephone encounter Note Patient has been identified by name and date of : No Patient phones for refill(s): Requested Prescriptions Pending Prescriptions Disp Refills traZODone (DESYREL) 50 mg tablet [Pharmacy Med Name: TRAZODONE 50 MG TABLET] 90 tablet 1 Sig: TAKE 1 TABLET BY MOUTH EVERYDAY AT BEDTIME Date of last office visit in primary care: 01/07/2024 Date of next office visit in primary care: 02/04/2024 Please advise. Thank you. Maria C Canela LPN. [facility] 01-07-2024 Instructions Fior Alvarez APRN.CNP - 01/07/2024 7:47 AM EDT Weight loss medications: Phentermine: stimulant but affordable. Talk with Dr. Davies to see if he feels this would be appropriate to use. Zepbound - once a week injectable. Check website to see what cost would be for you. documented in this encounter [facility] 01-07-2024 History of Present illness Narrative CC: Patient presents with: Recheck: 3 month follow up HPI Santos Allan is a 58 year old female who presents today for routine follow up. Obesity: History of gastric sleeve surgery in 2021 and gaining weight. Walks average of 5 days a week and eats small meals but is always hungry. Has spoke with dietitian and told to eat more protein but it is not helping. Has previously saxenda which was helpful and used prior to gastric sleeve. Has tried Cosentra which does not help. Hypothyroidism: takes medication as ordered. Denies any abnormal changes in energy. Recent TSH in normal range HTN: Ms. Allan indicates that she is feeling well and denies any symptoms referable to elevated blood pressure. Specifically denies headache, chest pain, palpitations, dyspnea, and peripheral edema. Patient denies any side effects of her medication(s) and is compliant with their regimen. She does not check BP's generally. Last 3 Encounter BP Readings: Date: BP: 01/07/2024 113/70 09/29/2023 128/80 08/30/2023 124/80 REMIGIO: Has not been using her cpap regularly as she sleeps sporadically chronically. Has tried melatonin but made her groggy. Has been on trazadone in the past for sleep which was helpful. Bipolar: Feels well controlled on current treatment Alcohol use: does not drink any alcohol Drug use: No Suicidal Thoughts: No suicidal ideation, intent or plan Sees Dr. Davies for psychiatry. REVIEW OF SYSTEMS See HPI PAST MEDICAL HISTORY Diagnosis Date Acid reflux [...] mg capsule Take 1 capsule by mouth three times a day for 180 days. potassium chloride (K-TAB) 10 mEq tablet Take [...] 12.5 mg by mouth every 12 hours. omeprazole (PRILOSEC) 20 mg capsule Take 1 capsule by mouth once daily. traZODone (DESYREL) 50 mg tablet Take 1 tablet by mouth daily at bedtime. eletriptan (RELPAX) 20 mg tablet Take 1 at start of headache, may repeat in 2 hours if necessary (total of 3 tablets) (Patient taking differently: Take 1 at start of headache, may repeat in 2 hours if necessary (total of 3 tablets in a 24 hour period)) CPAP Bilevel 25/20 cmH2O, Resmed F20 FFM [...] Types: Cigarettes Quit date: 06/14/2003 Years since quittin.5 Passive exposure: Never Smokeless tobacco: Never Vaping Use Vaping Use: Never used Substance Use Topics Alcohol use: Yes Comment: Occaisionally Drug use: No PHYSICAL EXAM BP 113/70 Pulse 84 Resp 16 Wt 110.7 kg (244 lb) LMP 02/13/2019 (Approximate) SpO2 96% BMI 39.09 kg/m General Appearance: well appearing, in no acute distress, alert Pysch: mood and affect broad and appropriate Skin: Skin color, texture, turgor normal for age; Eyes: conjunctiva pink and moist, no icterus, sclera white, non-injected Lungs: Lungs clear to auscultation. No wheezing, rhonchi, rales. Heart: RRR without murmur, gallop, or rubs. No ectopy Health maintenance reviewed with patient: Hepatitis B Vaccine(1 of 3 - 19+ 3-dose series) Never done Pneumococcal Vaccine(3 of 3 - PCV) due on 07/12/2015 Behavioral Health Screening Never done Covid-19 Vaccine( season) due on 12/04/2023 Pap Testing due on 06/15/2024 HPV Testing due on 06/15/2024 Mammogram Screening due on 10/08/2024 Annual PCP Team Chronic Disease Visit due on 01/06/2025 BP Controlled (<130/80) due on 01/06/2025 Diabetes Screening due on 03/19/2026 DTaP,Tdap,Td Vaccine(3 - Td or Tdap) due on 07/03/2027 Lipid Screening due on 03/19/2028 Colorectal Cancer Screening due on 04/17/2031 Influenza Vaccine Completed Hepatitis C Screening Completed HIV Screening Completed Shingrix Vaccine Completed DATA REVIEWED: Most recent labs ASSESSMENT/PLAN: 1. Class 2 severe obesity with serious comorbidity and body mass index (BMI) of 39.0 to 39.9 in adult, unspecified obesity type (HCC) - ICD9: 278.01, V85.39, ICD10: E66.01, Z68.39 (primary diagnosis) Weight increasing - Behavioral intervention and - Pharmacological intervention - options for phentermine or zepbound. Patient to talk with psychiatrist regarding phentermine and see what discount she may be eligible for zepbound - follow up in 4 weeks to discuss further 3. Obstructive sleep apnea syndrome - ICD9: 327.23, ICD10: G47.33 Noncompliant due to insomnia, as she has tolerated trazadone in the past, will try again Follow up in 4 weeks. 2. Insomnia, unspecified type - ICD9: 780.52, ICD10: G47.00 - trazadone as ordered - as above 4. Acquired hypothyroidism - ICD9: 244.9, ICD10: E03.9 - Instructed patient on importance of taking on an empty stomach either first thing in the morning or at bedtime. - stable at this time 5. Bipolar I disorder, most recent episode depressed (HCC) - ICD9: 296.50, ICD10: F31.30 Controlled at this time Continue with recommendations by cardiology - Reviewed concept of neurochemical imbalance wth depression/anxiety, treatment options and benefits of counseling in combination with medication. Also reviewed benefits of sleep hygeine, diet and exercise - Instructed patient to contact office or [id number] after-hours promptly should condition worsen or any new symptoms appear. - Counseling Center [facility] and after hours crisis line 6. Essential hypertension - ICD9: 401.9, ICD10: I10 - Controlled - Continue current medications - Recommend home blood pressure monitoring, to bring results to next visit - Encouraged sodium restriction, DASH or Mediterranean diet - Recommend regular aerobic exercise Prescription instructions reviewed with patient as applicable. Potential red flag symptoms discussed with the patient. Reviewed appropriate action plan to take if red flag symptoms occur. Patient agreeable to treatment plan. Fior Alvarez APRN.CNP documented in this encounter [facility] 11-18-2023 Miscellaneous Notes Wenceslao Molina [facility] called and is notified of providers message. He voices understanding and will get it entered into the system. Jacy Carr RN Patient has been on this medication since 2006 and tolerating well. Thank you Fior Alvarez APRN.CNP [facility]- asking for clarification on the medication eletriptan (relpax). Reports their records show pt has allergy to sumatriptan (imitrex). Asking provider if you still want pt to take the eletriptan? Please phone @ [phone] with reference # [id number] and let them know. documented in this encounter [facility] 11-17-2023 Miscellaneous Notes Ann [email or web address] called and is notified of providers message and instructions. She voices understanding and updated their Rx. Did medication update to include in 24 hours. Jacy Carr RN Yes, up to 3 tabs in a 24 hour period. This is the way it has been ordered for over 8 years without any verbiage being changed. Thank you Fior Alvarez APRN.CNP Jerry from [facility] calling to clarify directions on Eletriptan 20 mg tablet rx. Rx says total of 3 tablets on it, asking if this is the maximum amount for a day? Reference number for this is [id number]. Can send new rx with correction. Please advise documented in this encounter [facility] 11-05-2023 Miscellaneous Notes Patient has been identified by name and date of : No Patient phones for refill(s): Requested Prescriptions Pending Prescriptions Disp Refills eletriptan (RELPAX) 20 mg tablet 14 tablet 5 Sig: Take 1 at start of headache, may repeat in 2 hours if necessary (total of 3 tablets) Date of last office visit in primary care: 09/29/2023 Date of next office visit in primary care: 01/07/2024 Please advise. Thank you. Maria C Canela LPN. documented in this encounter [facility] 09-02-2023 Note BARIATRIC CARE [facility] PROGRESS NOTE POST WEIGHT LOSS SURGERY FOLLOW UP Patient: Santos Allan Service Date: 09/02/2023 Patient is 12 month(s) s/p Sleeve Gastrectomy Today's Metrics: Post-Surgical Weight Loss Date: 09/02/23 Height: 5' 6.25 (168.3 cm) ([facility] - ht recheck) Weight: 229 lb (104 kg) ([facility]) BMI: 36.68 Weight Change: 16.6 lbs Total [...] or BRUNILDA If YES: Labs completed at [facility]? no If yes see Labs Tab Labs completed at Non-[facility] facility? yes If yes see Encounters Tab - Orders only - Historical Provider - Date: 08/20/2023 Completed by: Kristina Dillard MA [facility] 09-02-2023 History of Present illness Narrative [facility] SURGICAL PROGRAM [...] chart review was performed. Patient Care Team: Ana Bolaños MD as PCP - General Gvain Moctezuma MD as Surgeon (Bariatric Surgery) PHILL Mojica as Physician Unix Analyst (Bariatrics) [facility] PROGRESS NOTE POST WEIGHT LOSS SURGERY FOLLOW UP Patient: Santos Allan Service Date: 09/02/2023 Patient is 12 month(s) s/p Sleeve Gastrectomy Today's Metrics: Post-Surgical Weight Loss Date: 09/02/23 Height: 5' 6.25 (168.3 cm) ([facility] - ht recheck) Weight: 229 lb (104 kg) ([facility]) BMI: 36.68 Weight Change: 16.6 lbs Total [...] or BRUNILDA If YES: Labs completed at [facility]? no If yes see Labs Tab Labs completed at Non-[facility] facility? yes If yes see Encounters Tab - Orders only - Historical Provider - Date: 08/20/2023 Completed by: Kristina Dillard MA [facility] BARIATRIC [facility]ARE [place] > 6 MONTH POST-OPERATIVE DIETITIAN VISIT Date: [...] Marilou Clifton RD documented in this encounter [facility] 08-19-2023 History of Present illness Narrative CC: [...] done Mammogram Screening due on 08/02/2021 Covid-19 Vaccine(2022- season) due on 05/14/2023 Hepatitis B Vaccine(1 [...] symptoms occur. Patient agreeable to treatment plan. Fior Alvarez APRN.CNP documented in this encounter [facility] 05-28-2023 Telephone encounter Note DOS 09/02/22 LSG w/ HH JZ TFU BAND 2008 at [place] 11/18/21 Lap removal of gastric band JZ Last OV-04/05/23 with MZ, next 09/02/23 with JZ Per last OV note, pt PPI was d/c'd and pt was instructed to call the office with development of s/s. Will route to PA for review of pt request for rx d/t s/s [facility] 05-28-2023 Miscellaneous Notes DOS 09/02/22 LSG w/ HH JZ TFU BAND 2008 at [place] 11/18/21 Lap removal of gastric band JZ Last OV-04/05/23 with MZ, next 09/02/23 with JZ Per last OV note, pt PPI was d/c'd and pt was instructed to call the office with development of s/s. Will route to PA for review of pt request for rx d/t s/s documented in this encounter [facility] 04-05-2023 Note BARIATRIC CARE [facility] PROGRESS NOTE POST WEIGHT LOSS SURGERY FOLLOW UP Patient: Santos Allan Service Date: 04/05/2023 Patient is 6 month(s) s/p Sleeve Gastrectomy Today's Metrics: Post-Surgical Weight Loss Date: 04/05/23 Height: 5' 7 (170.2 cm) ([facility]) Weight: 212 lb 6.4 oz (96.3 kg) ([facility]) BMI: 33.26 Weight Change: -16 lbs Total [...] or BRUNILDA If YES: Labs completed at [facility]? no If yes see Labs Tab Labs completed at Non-[facility] facility? yes If yes see Encounters Tab - Orders only - Historical Provider - Date: 03/25/2023 Completed by: rKistina Dillard MA [facility] 04-05-2023 History of Present illness Narrative [facility]ATRIC [facility] > 6 MONTH POST-OPERATIVE DIETITIAN VISIT [...] well overall. Patient instructed to call or [employer] message with any questions or concerns Visit [...] this Req. Please send results to: Ana Bolaños MD - [address] [facility] [address] - [phone] And if not done at a [facility] Facility, please send to: [place] [address] Patient Name: Santos Gravesfahad - 1965 Order Created by : Kristina Dillard MA Standing Status: Future Standing Expiration Date: 04/05/2024 Folate These orders are set for an approximate date - they can be drawn up to 3 months prior to the Expected Date on this Req. Please send results to: Ana Bolaños MD - [address] [facility] [id number] - [phone] And if not done at a [facility] Facility, please send to: [address], [address], [address] Patient Name: Santos Gravesmuralisangita - 1965 Order Created by : Kristina Dillard MA Standing Status: Future Standing Expiration Date: 04/05/2024 Iron These orders are set for an approximate date - they can be drawn up to 3 months prior to the Expected Date on this Req. Please send results to: Ana Bolaños MD - [address] [facility] [address] - [phone] And if not done at a [facility] Facility, please send to: [address], [address] Patient Name: Santos Allan - 1965 Order Created by : Kristina Dillard MA Standing Status: Future Standing Expiration Date: 04/05/2024 Ferritin These orders are set for an approximate date - they can be drawn up to 3 months prior to the Expected Date on this Req. Please send results to: Ana Bolaños MD - [address] [facility] [address] - [phone] And if not done at a [facility] Facility, please send to: [address], [facility] Patient Name: Santos Allan - 1965 Order Created by : Kristina Dillard MA Standing Status: Future Standing Expiration Date: 04/05/2024 Magnesium These orders are set for an approximate date - they can be drawn up to 3 months prior to the Expected Date on this Req. Please send results to: Ana Bolaños MD - [address] [facility] [address] - [phone] And if not done at a [facility] Facility, please send to: [address], [address] Patient Name: Santos Allan - 1965 Order Created by : Kristina Dillard MA Standing Status: Future Standing Expiration Date: 04/05/2024 Vitamin D Deficiency Screening (Vit D 25) These orders are set for an approximate date - they can be drawn up to 3 months prior to the Expected Date on this Req. Please send results to: Ana Bolaños MD - [facility] [address] - [phone] And if not done at a [facility] Facility, please send to: [place] [address] Patient Name: Santos Allan - 1965 Order Created by : Kristina Dillard MA Standing Status: Future Standing Expiration Date: 04/05/2024 Vitamin B12 These orders are set for an approximate date - they can be drawn up to 3 months prior to the Expected Date on this Req. Please send results to: MD Simon Stone [address] [place] [address] - [phone] And if not done at a [facility] Facility, please send to: [place] [address] Patient Name: Santos Abarcat - 1965 Order Created by : Kristina Dillard MA Standing Status: Future Standing Expiration Date: 04/05/2024 Vitamin B1, whole blood These orders are set for an approximate date - they can be drawn up to 3 months prior to the Expected Date on this Req. Please send results to: [facility] [address] - [phone] And if not done at a [facility] Facility, please send to: [place] [address] Patient Name: Santos Allan - 1965 Order Created by : Kristina Dillard MA Standing Status: Future Standing Expiration Date: 04/05/2024 Lipid panel These orders are set for an approximate date - they can be drawn up to 3 months prior to the Expected Date on this Req. Please send results to: MD Simon Stone [address] [facility] [address] - [phone] And if not done at a [facility] Facility, please send to: [address], [address] Patient Name: Santos Allan - 1965 Order Created by : Kristina Dillard MA Standing Status: Future Standing Expiration Date: 04/05/2024 Comprehensive metabolic panel These orders are set for an approximate date - they can be drawn up to 3 months prior to the Expected Date on this Req. Please send results to: Ana Bolaños MD - [facility] [address] - [phone] And if not done at a [facility] Facility, please send to: [address], [address] Patient Name: Santos Allan - 1965 Order Created by : Kristina Dillard MA Standing Status: Future Standing Expiration Date: 04/05/2024 CBC These orders are set for an approximate date - they can be drawn up to 3 months prior to the Expected Date on this Req. Please send results to: Ana Bolaños MD - [address] [facility] [address] - [phone] And if not done at a [facility] Facility, please send to: [address], [address] Patient Name: Santos Allan - 1965 Order Created by : Kristina Dillard MA Standing Status: Future Standing Expiration Date: 04/05/2024 Vitamin D Deficiency Screening (Vit D 25) These orders are set for an approximate date - they can be drawn up to 3 months prior to the Expected Date on this Req. Please send results to: Ana Bolaños MD - [address] [facility] [address] - [phone] And if not done at a [facility] Facility, please send to: [address], [address] - [facility], [address] Patient Name: Santos Allan - 1965 Order [...] Date: 04/05/23 Height: 5' 7 (170.2 cm) ([facility]) Weight: 212 lb 6.4 oz (96.3 kg) ([facility]) BMI: 33.26 Weight Change: -16 lbs Total [...] or BRUNILDA If YES: Labs completed at [facility]? no If yes see Labs Tab Labs completed at Non-[facility] facility? yes If yes see Encounters Tab - Orders only - Historical Provider - Date: 03/25/2023 Completed by: Kristina Dillard MA documented in this encounter [facility] 12-22-2022 Miscellaneous Notes Faxed order, office notes, demographics, and sleep study to: DME name: SOPHIE CHAVEZ fax: [phone] DME ph: documented in this encounter [facility] 12-21-2022 History of Present illness Narrative Images from the original note were not included. [facility] Virtual Visit Follow up/ Established patient visit Date of last visit : 09/21/2022 I have communicated my name and active licensure. The patient's identity and physical location were verified at the time of this visit. Either the patient or their legal customer relations representative has been informed of the risks [...] DME: : Sophie de la rosa Ph. [phone] PAP History: Current PAP setting: Auto-bilevel PAP [...] or near accidents due to drowsy drivin [place] Sleepiness Scale 11/15/2021 09/14/2022 12/16/2022 Score 10 [...] points is a clinically meaningful difference.) 03/04/2022 08/21/202211/27/2022 Physical T-Score 44.9 42.3 44.9 Mental T-Score [...] 10 mg by mouth twice daily. ) grsar-wb-7-jni-gtc-efehdfb-ast (KRILL OIL) 1,297-684-49-50 mg cap Take 1,000 mg by mouth [...] Follow up [address] Quinteros. Erika Shah APRN.CNP I spent a total of 30 minutes on the date of the service which included preparing to see the patient, completing clinical documentation, counseling and educating the patient/family/caregiver and ordering medications, tests, or procedures. documented in this encounter [facility] 12-04-2022 History of Present illness Narrative CC: Patient presents with: Recheck: 3 month follow up HPI Santos Allan is a 56 year old female who presents today for follow up. Had gastric sleeve surgery this past August and has lost a total of 41lbs and tolerating well. HTN: Ms. Weygandt indicates that she is feeling well and [...] 10 mg by mouth twice daily. ) copdc-aj-2-xcs-mgw-yirlbfe-ast (KRILL OIL) 1,343-983-16-50 mg cap Take 1,000 mg by mouth [...] psychiatry. - Reviewed concept of neurochemical imbalance [facility] depression/anxiety, treatment options and benefits of counseling in combination with medication. Also reviewed benefits of sleep hygeine, diet and exercise - Instructed patient to contact office or [id number] after-hours promptly should condition worsen or any new symptoms appear. - Counseling Center [facility] and after hours crisis line 6. [...] symptoms occur. Patient agreeable to treatment plan. Fior Alvarez APRN.CNP documented in this encounter [facility] 12-02-2022 Note BARIATRIC CARE [facility] PROGRESS NOTE POST WEIGHT LOSS SURGERY FOLLOW UP Patient: Santos Allan Service Date: 12/02/2022 Patient is 3 month(s) s/p Sleeve Gastrectomy Today's Metrics: Post-Surgical Weight Loss Date: 12/02/22 Height: 5' 7 (170.2 cm) ([facility]) Weight: 228 lb 6.4 oz (104 kg) ([facility]) BMI: 35.77 Weight Change: -20.4 lbs [...] or BRUNILDA If YES: Labs completed at [facility]? no If yes see Labs Tab Labs completed at Non-[facility] facility? yes If yes see Encounters Tab - Orders only - Historical Provider - Date: 11/13/2022 SCANNED INTO MEDIA Completed by: Kristina Dillard MA [facility] 12-02-2022 History of Present illness Narrative [...] this Req. Please send results to: Ana Bolaños MD - [address] [facility] [address] - [phone] And if not done at a [facility] Facility, please send to: [facility] [place] - [address] [place] [address], [address] [facility], [address] Patient Name: Santos Allan - 1965 Order Created by : Kristina Dillard MA Standing Status: Future Standing Expiration Date: 12/03/2023 Folate These orders are set for an approximate date - they can be drawn up to 3 months prior to the Expected Date on this Req. Please send results to: Ana Bolaños MD - [address] [facility] [address] - [phone] And if not done at a [facility] Facility, please send to: [place] [address] Patient Name: Santos Allan - 1965 Order Created by : Kristina Dillard MA Standing Status: Future Standing Expiration Date: 12/03/2023 Iron These orders are set for an approximate date - they can be drawn up to 3 months prior to the Expected Date on this Req. Please send results to: Ana Bolaños MD - [facility] [address] - [phone] And if not done at a [facility] Facility, please send to: [place] [address] Patient Name: Santos Allan - 1965 Order Created by : Kristina Dillard MA Standing Status: Future Standing Expiration Date: 12/03/2023 Ferritin These orders are set for an approximate date - they can be drawn up to 3 months prior to the Expected Date on this Req. Please send results to: Ana Bolaños MD - [address] [facility] [address] - [phone] And if not done at a [facility] Facility, please send to: [address], [address] Patient Name: Santos Allan - 1965 Order Created by : Kristina Dillard MA Standing Status: Future Standing Expiration Date: 12/03/2023 Magnesium These orders are set for an approximate date - they can be drawn up to 3 months prior to the Expected Date on this Req. Please send results to: MD Simon Stone [address] [place] [address] - [phone] And if not done at a [facility] Facility, please send to: [address], [facility] Patient Name: Santos Allan - 1965 Order Created by : Kristina Dillard MA Standing Status: Future Standing Expiration Date: 12/03/2023 Vitamin D 25 hydroxy These orders are set for an approximate date - they can be drawn up to 3 months prior to the Expected Date on this Req. Please send results to: MD Simon Stone [address] [place] [address] - [phone] And if not done at a [facility] Facility, please send to: [place] [address] Patient Name: Santos Allan - 1965 Order Created by : Kristina Dillard MA Standing Status: Future Standing Expiration Date: 12/03/2023 Vitamin B12 These orders are set for an approximate date - they can be drawn up to 3 months prior to the Expected Date on this Req. Please send results to: MD Simon Stone [address] [place] [address] - [phone] And if not done at a [facility] Facility, please send to: [place] [address] Patient Name: Santos Allan - 1965 Order Created by : Kristina Dillard MA Standing Status: Future Standing Expiration Date: 12/03/2023 Vitamin B1, whole blood These orders are set for an approximate date - they can be drawn up to 3 months prior to the Expected Date on this Req. Please send results to: MD [facility] [address] - [phone] And if not done at a [facility] Facility, please send to: [address], [address] Patient Name: Santos Allan - 1965 Order Created by : Kristina Dillard MA Standing Status: Future Standing Expiration Date: 12/03/2023 Lipid panel These orders are set for an approximate date - they can be drawn up to 3 months prior to the Expected Date on this Req. Please send results to: Ana Bolaños MD - [address] [place] [address] - [phone] And if not done at a [facility] Facility, please send to: [address], [facility] Patient Name: Santos Abarcat - 1965 Order Created by : Kristina Dillard MA Standing Status: Future Standing Expiration Date: 12/03/2023 Comprehensive metabolic panel These orders are set for an approximate date - they can be drawn up to 3 months prior to the Expected Date on this Req. Please send results to: MD Simon Stone [facility] [address] - [phone] And if not done at a [facility] Facility, please send to: [address], [address] Patient Name: Santos Abarcat - 1965 Order Created by : Kristina Dillard MA Standing Status: Future Standing Expiration Date: 12/03/2023 CBC These orders are set for an approximate date - they can be drawn up to 3 months prior to the Expected Date on this Req. Please send results to: MD Simon Stone [address] [facility] [address] - [phone] And if not done at a [facility] Facility, please send to: [facility] - [address] [place] [address], [address] [place], [address] Patient Name: Santos Allan - 1965 Order [...] mouth in the morning. [DISCONTINUED] nystatin (Mycostatin) [id number] UNIT/ML suspension Swish and spit 5 mL [...] by mouth in the morning. NYSTATIN (MYCOSTATIN) 823095 UNIT/ML SUSPENSION Swish and spit 5 mL [...] Date: 12/02/22 Height: 5' 7 (170.2 cm) ([facility]) Weight: 228 lb 6.4 oz (104 kg) ([facility]) BMI: 35.77 Weight Change: -20.4 lbs [...] or BRUNILDA If YES: Labs completed at [facility]? no If yes see Labs Tab Labs completed at Non-[facility] facility? yes If yes see Encounters Tab - Orders only - Historical Provider - Date: 11/13/2022 SCANNED INTO MEDIA Completed by: Kristina Dillard MA [facility] 3 MONTH POST-OPERATIVE DIETITIAN VISIT Date: [...] Lorena Alexis RD documented in this encounter [facility] 10-23-2022 Miscellaneous Notes May at Dr Ortiz's office notified and will notify us with his recommendations. Please call Dr. Story office to let him know there is not an antiinflammatory injection I can order regularly. Would an antiinflammatory topical gel work? Thank you Fior Alvarez APRN.CNP Patient verified she is able to take oral medications just unable to ever take NSAIDs again due to her recent bariatric surgery. Left message for return call. Is patient able to do steroids orally at this time? There are no daily injections I can prescribe for this. Thank you Fior Alvarez APRN.CNP May at [facility] called and is notified of providers [...] wanting to prescribe meloxicam for. Thank you Fior Alvarez APRN.CNP Called pt and she reports she [...] for a month of meloxicam? Thank you Fior Alvarez APRN.CNP Alcira from Dr. Ortiz's office at [facility] calls and states that Dr. Ortiz was wanting to prescribe patient meloxicam 15 mg for 30 days, however patient had told him that she cannot take oral NSAIDS. Dr. Ortiz asking if provider can prescribe medication in injection form? Please review and advise, Sherry Roman RN documented in this encounter [facility] 10-08-2022 Note [facility]ARE [facility] PROGRESS NOTE POST WEIGHT LOSS SURGERY FOLLOW UP Patient: Santos Gravesfahad Service Date: 10/08/2022 Patient is 1 month(s) [...] or BRUNILDA If YES: Labs completed at [facility]? no If yes see Labs Tab Labs completed at Non-[facility] facility? Yes, [facility] If yes see Encounters Tab - Orders only - Historical Provider - Date: Completed by: Mckenzie [facility] [address] 10-08-2022 History of Present illness Narrative Images from the original note were not included. [facility] Patient: Santos Allan Date of : 1965 Service Date: 10/08/2022 HPI: Patient here today for 1 month post-weight loss surgery follow up She is feeling well. Denies nausea, vomiting, dysphagia, or any GERD Sx. Currently is on a PPI. Patient states diet and exercise is going fairly well. Currently is eating 65-75 gm/day protein, and is compliant with prescribed multivitamins and supplements. Vital signs are stable. Labs were Completed. All labs were: normal Physical Examination: BP 127/72 Pulse 105 Temp 34.9 C (94.9 F) Resp 18 Ht 5' 7 (1.702 m) Comment: bcc Wt 248 lb 12.8 oz (113 kg) BMI 38.97 kg/m General: This patient is awake, alert, and oriented, and is in no apparent distress. Respiratory: Non-labored breathing Abdomen: Obese, soft, non-tender, non-distended without masses/ No evidence of abdominal hernia / Incisions consistent with previous surgeries. Extremities: No cyanosis, clubbing or edema/ No calf tenderness/No restrictions of movement, is ambulatory without assistance. Surgical site: clean, dry, intact, and nontender Drainage from surgical site: none Patient does not have a superficial incisional SSI Current Medications: Patient's Medications New Prescriptions No [...] noon and 200 mg in the evening. KRILL OIL 1000 MG CAPSULE Take 1,000 mg by mouth in the morning. LEFLUNOMIDE (ARAVA) 20 MG TABLET daily. LEVOTHYROXINE (SYNTHROID, LEVOXYL) 88 MCG TABLET Take 88 mcg by mouth daily. LISINOPRIL 20 MG TABLET twice a day. METOPROLOL SUCCINATE XL (TOPROL-XL) 25 MG 24 HR TABLET NYSTATIN (MYCOSTATIN) [id number] UNIT/ML SUSPENSION Swish and spit 5 mL (500,000 Units) 3 times daily. Swish and spit 5 mLs by mouth three times daily for 10 days. OMEPRAZOLE (PRILOSEC) [address] CAPSULE Take 1 capsule (20 mg) by mouth daily. Do not crush or chew. For postop RESPIRATORY THERAPY SUPPLIES (CARETOUCH CPAP & BIPAP HOSE) MISC 12-20 cm Nightly. SEMAGLUTIDE (OZEMPIC, 0.25 OR 0.5 MG/DOSE, SC) Inject under the skin 1 (one) time per week. 0.25 mg On SULFASALAZINE (AZULFIDINE) 500 MG EC TABLET Take 1,000 mg by mouth in the morning and 1,000 mg before bedtime. UBIQUINOL 200 MG CAPSULE Take 200 mg by mouth daily. URSODIOL (ACTIGALL) 300 MG CAPSULE Take 1 capsule (300 mg) by mouth in the morning and 1 capsule (300 mg) before bedtime. Modified Medications No medications on file Discontinued Medications No medications on file Medications ordered during this encounter: Outpatient Encounter Medications as of 10/08/2022 Medication Sig Dispense Refill ARIPiprazole (Abilify) 2 [...] the morning and 1,000 mg before bedtime. ursodiol (Actigall) 300 MG capsule Take 1 capsule (300 mg) by mouth in the morning and 1 capsule (300 mg) before bedtime. 180 capsule 0 Krill Oil 1000 MG capsule Take 1,000 mg by mouth in the morning. nystatin (Mycostatin) 680846 UNIT/ML suspension Swish and spit 5 mL (500,000 Units) 3 times daily. Swish and spit 5 mLs by mouth three times daily for 10 days. (Patient not taking: Reported on 10/08/2022) 150 mL 1 omeprazole (PriLOSEC) [address] capsule Take 1 capsule (20 mg) by mouth daily. Do not crush or chew. For postop (Patient taking differently: Take 20 mg by mouth daily. Do not crush or chew. For postop) 30 capsule 0 Semaglutide (OZEMPIC, 0.25 OR 0.5 MG/DOSE, SC) Inject under the skin 1 (one) time per week. 0.25 mg On Ubiquinol 200 MG capsule Take 200 mg by mouth daily. No facility-administered encounter medications on file as of 10/08/2022. Orders Placed This Encounter Procedures Zinc Folate Iron Ferritin Magnesium Vitamin B12 Comprehensive metabolic panel CBC Visit Diagnoses: 1. Encounter for postoperative care 2. Primary hypertension 3. Hyperlipidemia, unspecified hyperlipidemia type 4. Hypothyroidism, unspecified type 5. REMIGIO (obstructive sleep apnea) 6. Class 2 obesity due to excess calories with body mass index (BMI) of 38.0 to 38.9 in adult, unspecified whether serious comorbidity present 7. Deficiency of multiple nutrient elements Plan: 1). Cleared for all activity, no weight restrictions. All incisions healed. 2). Continue PPI until 6 month office visit 3). Labs: normal 4). F/u at 3 month office visit with standard labs 5). Progressing diet as tolerated per RD 6). Psych concerns: No 7). Dysphagia: No 8). If patient is a woman of childrearing age- 18-50. We discussed the importance of contraception during the first 12-18 months post op, and we discussed that fertility will increase following the procedure. Advised patient to discuss with her OBGYN regarding contraception. Patient counseled with good understanding verbalized. 9). Weight loss: Post-op Weight Metrics: %EBWL: % EBWL: 18% Weight Change Since Last Visit: Weight Change: -15.2 lbs Weight Change from Highest Pre-op Weight: Total Weight Change: -24 lbs She met with the dietitian today to review are vitamin and protein recommendations. Increase activity as recommended, the wounds are healed, no evidence of abdominal wall hernias. No nausea vomiting or dysphagia noted. Appropriate bowel function, discussed with her regarding contacting us for any questions or concerns. The lab slip was signed for the next visit, labs from 09/29/22 ([facility]) were reviewed and are within normal limits. Follow-up 3 months postop. Replace K. Otherwise doing great. No GERD. I personally performed the evaluation and management [...] All of the patient's questions were answered. Patient Care Team: Ana Bolaños MD as PCP - General Gavin Moctezuma MD as Surgeon (Bariatric Surgery) PHILL Mojica as Physician Unix Analyst (Bariatrics) [facility] PROGRESS NOTE POST WEIGHT LOSS SURGERY FOLLOW UP Patient: Santos Allan Service Date: 10/08/2022 Patient is 1 month(s) [...] or BRUNILDA If YES: Labs completed at [facility]? no If yes see Labs Tab Labs completed at Non-[facility] facility? Yes, [facility] If yes see Encounters Tab - Orders only - Historical Provider - Date: Completed by: Mckenzie Samayoa [facility] 1 MONTH POST-OPERATIVE DIETITIAN VISIT Date: 10/08/22 Current diet reviewed with patient. Soft and maintenance diets discussed and. handouts provided. Patient's weight decreased by: 24 lbs Patient does consume 5-6 small meals daily: Patient s portions are adequate for current diet: -1 cup Protein requirements discussed- currently consuming 65 grams of protein daily. Current protein sources: yogurt, eggs, peanut butter, pot roast, chicken, fish, cottage cheese, refried beans, protein shake Recommendations:none Fluid requirements discussed. Current Fluid Intake: 64-80 oz Patient does drink sugar-free, caffeine-free and carbonation-free fluids only. Patient does wait 30 minutes before and after meals to drink Exercise activities discussed. Patient does currently exercising. She was reminded that regular [...] Changes: Pt compliant with vitamin/mineral protocol. Labs noted and addressed by this RD-see TE 10/02/2022. Pt reports has increased high K foods as advised. Pt to have repeat K this week-will monitor. Lab req printed and given to pt today. Notes/Comments: Pt doing well. Pt to advance to maintenance diet. Pt encouraged to call/MyChart with questions. Visit completed by: Marilou Clifton RD documented in this encounter [facility] 10-02-2022 Telephone encounter Note Signedcarmella [facility] 10-02-2022 Miscellaneous Notes Signedcarmella DOS 09/02/22 LSG w/ JZ TFU BAND 2007 at [facility] PD IN FULL. MB 11/18/21 Lap removal of gastric band 09/29/2022 Paper labs Potassium: 3.1 (L) Vitamin B12: >2000 (H) Called and spoke with pt regarding labs. Pt denies heart palpitations and denies any leg cramping. Pt reports was once put on a potassium supplement for a low potassium level. Recommend: (1) High potassium foods to include: Body Armor Lyte, bananas, potatoes, avocados, yogurt- all appropriate for soft diet phase. (2) Vitamin B12 500 mcg every other day instead of daily. Will monitor K in 1 week. Order pending. Please sign. Thank you! documented in this encounter [facility] 10-01-2022 Telephone encounter Note DOS 09/02/22 LSG w/ HH JZ TFU BAND 2007 at [facility] PD IN FULL. MB 11/18/21 Lap removal of gastric band 09/29/2022 Paper labs Potassium: 3.1 (L) Vitamin B12: >2000 (H) Called and spoke with pt regarding labs. Pt denies heart palpitations and denies any leg cramping. Pt reports was once put on a potassium supplement for a low potassium level. Recommend: (1) High potassium foods to include: Body Armor Lyte, bananas, potatoes, avocados, yogurt- all appropriate for soft diet phase. (2) Vitamin B12 500 mcg every other day instead of daily. Will monitor K in 1 week. Order pending. Please sign. Thank you! [employer] Phone: 10-01-2022 Miscellaneous Notes I called patient and gave him my phone number to call him. Regards, Ana Bolaños MD May with [facility] calls to let provider know that Dr. Teodoro Ortiz would like to discuss patient with provider. 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 Ortiz would like to treat patient with medication but prior to treating he would like to discuss with provider. Dr. Ortiz requesting a call back at [phone]. Samra Bolanos RN documented in this encounter [facility] 09-21-2022 History of Present illness Narrative ESTABLISHED PATIENT VISIT (Virtual Visit with Video) For this virtual visit, the patient has been identified by name and (MRN and photo identification as well if available). Those taking part in visit: Patient with physician via [employer]. Consent for this visit received from patient. [...] 30 days of use from the summer (scanned in [employer]). Per records, pt with GI surgery during [...] 10 mg by mouth twice daily. ) [id number] (KRILL OIL) [id number] mg cap Take 1,000 mg by mouth [...] 5 (Mild Depression) - 1 (None-Minimal Depression) [place] Sleepiness Scale 11/15/2021 08/28/2022 09/14/2022 Score 10 [...] which included preparing to see the patient, [id number] patient care, completing clinical documentation, obtaining and/or reviewing separately obtained history, performing a medically appropriate examination, counseling and educating the patient/family/caregiver, ordering medications, tests, or procedures, and communicating results to the patient/family/caregiver. documented in this encounter [facility] 09-10-2022 History of Present illness Narrative Images from the original note were not included. [facility] Patient: Santos Allan Date of : 1965 Service Date: 09/10/22 HPI: Patient here today for 1 week post-weight loss surgery follow up HPI: She is feeling well. Denies nausea, vomiting, dysphagia, or any GERD Sx. Currently is a PPI. Patient currently walking. Instructed no lifting heavier than 15lbs until [address] to start supplements. Patient reports doing well. Pain controlled with percocet at night. Denies n/v, dysphagia, d/c, fevers, SOB/CP, leg swelling/pain. Fluid intake >64 ounces daily. BM variable. Vital signs are stable. Labs were not drawn. Physical Examination: BP 136/77 Pulse 101 Temp 35.2 C (95.3 F) Resp 18 Ht 5' 7 (1.702 m) Comment: bcc Wt 264 lb (120 kg) SpO2 99% BMI 41.35 kg/m General: This patient is awake, alert, and oriented, and is in no apparent distress. Respiratory: Non-labored breathing Abdomen: Obese, soft, non-tender, non-distended without masses/ No evidence of abdominal hernia / Incisions consistent with previous surgeries. Extremities: No cyanosis, clubbing or edema/ No calf tenderness/No restrictions of movement, is ambulatory without assistance. Skin: No rashes or lesions noted. Surgical site: is:clean, dry, intact, and nontender Drainage from surgical site: none Patient does not have a superficial incisional SSI Orders Placed This Encounter Procedures Zinc These orders are set for an approximate date - they can be drawn up to 3 months prior to the Expected Date on this Req. Please send results to: Ana Bolaños MD - [id number] [facility] [address] - [phone] And if not done at a [facility] Facility, please send to: [facility] [place] - [address] [place] [address], [address] [facility], [address] Patient Name: Santos Allan - 1965 Order Created by : Mckenzie Samayoa Standing Status: Future Standing Expiration Date: 09/10/2023 Folate These orders are set for an approximate date - they can be drawn up to 3 months prior to the Expected Date on this Req. Please send results to: Ana Bolaños MD - [address] [facility] [address] - [phone] And if not done at a [facility] Facility, please send to: [place] [address] Patient Name: Santos Allan - 1965 Order Created by : Mckenzie Samayoa Standing Status: Future Standing Expiration Date: 09/10/2023 Iron These orders are set for an approximate date - they can be drawn up to 3 months prior to the Expected Date on this Req. Please send results to: Ana Bolaños MD - [address] [facility] [address] - [phone] And if not done at a [facility] Facility, please send to: [address], [facility] Patient Name: Santos Allan - 1965 Order Created by : Mckenzie Samayoa Standing Status: Future Standing Expiration Date: 09/10/2023 Ferritin These orders are set for an approximate date - they can be drawn up to 3 months prior to the Expected Date on this Req. Please send results to: Ana Bolaños MD - [address] [facility] [address] - [phone] And if not done at a [facility] Facility, please send to: [address], [address] Patient Name: Santos Allan - 1965 Order Created by : Mckenzie Samayoa Standing Status: Future Standing Expiration Date: 09/10/2023 Magnesium These orders are set for an approximate date - they can be drawn up to 3 months prior to the Expected Date on this Req. Please send results to: [facility] [address] - [phone] And if not done at a [facility] Facility, please send to: [address], [address] Patient Name: Santos Allan - 1965 Order Created by : Mckenzie Samayoa Standing Status: Future Standing Expiration Date: 09/10/2023 Vitamin B12 These orders are set for an approximate date - they can be drawn up to 3 months prior to the Expected Date on this Req. Please send results to: [facility] [address] - [phone] And if not done at a [facility] Facility, please send to: [place] [id number] Patient Name: Santos Allan - 1965 Order Created by : Mckenzie Samayoa Standing Status: Future Standing Expiration Date: 09/10/2023 Comprehensive metabolic panel These orders are set for an approximate date - they can be drawn up to 3 months prior to the Expected Date on this Req. Please send results to: MD Simon Stone [facility] [address] - [phone] And if not done at a [facility] Facility, please send to: [address], [address] Patient Name: Santos Allan - 1965 Order Created by : Mckenzie Samayoa Standing Status: Future Standing Expiration Date: 09/10/2023 CBC These orders are set for an approximate date - they can be drawn up to 3 months prior to the Expected Date on this Req. Please send results to: MD Simon Stone [facility] [address] - [phone] And if not done at a [facility] Facility, please send to: [facility] - [address] [place] [address], [address] [place], [address] Patient Name: Santos Allan - 1965 Order Created by : Mckenzie Samayoa Standing Status: Future Standing Expiration Date: 09/10/2023 Medications ordered during this encounter: Outpatient Encounter Medications as of 09/10/2022 Medication Sig Dispense Refill ARIPiprazole (Abilify) 2 MG tablet Every 24 hours. atorvastatin (Lipitor) 40 MG tablet Take 40 mg by mouth Nightly. cevimeline (Evoxac) 30 MG capsule every 12 hours. citalopram (CeleXA) 10 MG tablet Take 10 mg by mouth daily. citalopram (CeleXA) 20 MG tablet daily. cyclobenzaprine (Flexeril) 10 MG tablet Take 10 mg by mouth at noon and 10 mg in the evening. hydroxychloroquine (Plaquenil) 200 MG tablet Take 200 mg by mouth at noon and 200 mg in the evening. leflunomide (Arava) 20 MG tablet daily. levothyroxine (Synthroid, Levoxyl) 88 MCG tablet Take 88 mcg by mouth daily. lisinopril 20 MG tablet twice a day. metoprolol succinate XL (Toprol-XL) 25 MG 24 hr tablet TAKE 1 TABLETBY MOUTH EVERY MORNING omeprazole (PriLOSEC) [address] capsule Take 1 capsule (20 mg) by mouth daily. Do not crush or chew. For postop (Patient taking differently: Take 20 mg by mouth daily. Do not crush or chew. For postop) 30 capsule 0 oxyCODONE-acetaminophen (Percocet) 5-325 MG tablet Take 1 tablet by mouth every 6 hours as needed for severe pain (7-10) for up to 7 days. 28 tablet 0 Respiratory Therapy Supplies (CareTouch CPAP & BIPAP Hose) misc 12-20 cm Nightly. sulfaSALAzine (Azulfidine) 500 MG EC tablet Take 1,000 mg by mouth in the morning and 1,000 mg before bedtime. cholecalciferol (Vitamin D-3) 25 MCG (1000 UT) tablet Take 2,000 Units by mouth in the morning. cyanocobalamin (Vitamin B-12) 500 MCG tablet Every 24 hours. hydroCHLOROthiazide (HYDRODiuril) 12.5 MG tablet Take 12.5 mg by mouth in the morning. Krill Oil 1000 MG capsule Take 1,000 mg by mouth in the morning. nystatin (Mycostatin) 139816 UNIT/ML suspension Swish and spit 5 mL (500,000 Units) 3 times daily. Swish and spit 5 mLs by mouth three times daily for 10 days. 150 mL 1 ondansetron (Zofran) 4 MG tablet Take 1 tablet (4 mg) by mouth every 8 hours as needed for vomiting or nausea for up to 7 days. (Patient not taking: Reported on 09/10/2022) 20 tablet 0 Semaglutide (OZEMPIC, 0.25 OR 0.5 MG/DOSE, SC) Inject under the skin 1 (one) time per week. 0.25 mg On Ubiquinol 200 MG capsule Take 200 mg by mouth daily. ursodiol (Actigall) 300 MG capsule Take 1 capsule (300 mg) by mouth in the morning and 1 capsule (300 mg) before bedtime. (Patient not taking: Reported on 09/10/2022) 180 capsule 0 [DISCONTINUED] aspirin 81 MG chewable tablet Every 24 hours. No facility-administered encounter medications on file as of 09/10/2022. 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 Oral Thrush: positive, Rx: 5ml Nystatin swish and spit every 8 hours x 10days 2). Pathology: A. Liver, wedge biopsy: - Mild steatosis (grade 1) Comment: Sections demonstrate an intact liver architecture with mild macrovesicular steatosis occupying approximately 30% of the liver volume. There is no evidence of ballooning degeneration, lobular activity, or Garret's hyaline. The portal tracts contain all normal structures without any significant inflammatory infiltrate. Special stains (iron and trichrome) are negative for increased iron storage and fibrosis, respectively. NAFLD Activity Score (MICHELE) Steatosis: 1 Lobular inflammation (foci per 20x field): 0 Hepatocyte balloonin Total Score: 1/8 Stage: 0 Garret hyaline: Negative B. Stomach, sleeve gastrectomy: -Stomach with no significant pathologic changes Refer to GI : No 3). Follow up at 1 month office visit with standard labs 4). Patient to see PCP for follow up regarding further management of DM and HTN medications. 5). Continue PPI until 6 month office visit 6). Advance to Pureed diet, RD discussed at office visit 7). Psych concerns: No 8). No lifting >15lbs until 1 month office visit. 9). Weight loss: Post-op Weight Metrics: %EBWL: % EBWL: 6% Weight Change Since Last Visit: Weight Change: -8.8 lbs Weight Change from Highest Pre-op Weight: Total Weight Change: -8.8 lbs REMIGIO -on CPAP GERD -continue PPI daily HLD -on statin HTN -stable on lisinopril and metoprolol Current Medications: Patient's Medications New Prescriptions NYSTATIN (MYCOSTATIN) [id number] UNIT/ML SUSPENSION Swish and spit 5 mL (500,000 Units) 3 times daily. Swish and spit 5 mLs by mouth three times daily for 10 days. Previous Medications ARIPIPRAZOLE (ABILIFY) 2 MG TABLET [...] noon and 200 mg in the evening. KRILL OIL 1000 MG CAPSULE Take 1,000 mg by mouth in the morning. LEFLUNOMIDE (ARAVA) 20 MG TABLET daily. LEVOTHYROXINE (SYNTHROID, LEVOXYL) 88 MCG TABLET Take 88 mcg by mouth daily. LISINOPRIL 20 MG TABLET twice a day. METOPROLOL SUCCINATE XL (TOPROL-XL) 25 MG 24 HR TABLET TAKE 1 TABLETBY MOUTH EVERY MORNING OMEPRAZOLE (PRILOSEC) [address] CAPSULE Take 1 capsule (20 mg) by mouth daily. Do not crush or chew. For postop ONDANSETRON (ZOFRAN) 4 MG TABLET Take 1 tablet (4 mg) by mouth every 8 hours as needed for vomiting or nausea for up to 7 days. OXYCODONE-ACETAMINOPHEN (PERCOCET) 5-325 MG TABLET Take 1 tablet by mouth every 6 hours as needed for severe pain (7-10) for up to 7 days. RESPIRATORY THERAPY SUPPLIES (CARETOUCH CPAP & BIPAP HOSE) MISC 12-20 cm Nightly. SEMAGLUTIDE (OZEMPIC, 0.25 OR 0.5 MG/DOSE, SC) Inject under the skin 1 (one) time per week. 0.25 mg On SULFASALAZINE (AZULFIDINE) 500 MG EC TABLET Take 1,000 mg by mouth in the morning and 1,000 mg before bedtime. UBIQUINOL 200 MG CAPSULE Take 200 mg by mouth daily. URSODIOL (ACTIGALL) 300 MG CAPSULE Take 1 capsule (300 mg) by mouth in the morning and 1 capsule (300 mg) before bedtime. Modified Medications No medications on file Discontinued Medications ASPIRIN 81 MG CHEWABLE TABLET Every 24 hours. She met with the dietitian today to review are vitamin and protein recommendations. Increase activity as recommended, the wounds are healed, no evidence of abdominal wall hernias. No nausea vomiting or dysphagia noted. Appropriate bowel function, discussed with her regarding contacting us for any questions or concerns. The lab slip was signed for the next visit. Follow up 1 month postop. I personally performed the evaluation and management of Santos Gravesfahad in the development of a treatment plan for this patient. I personally interviewed the patient and performed an individual physical examination. In addition, I discussed the patient's condition and treatment options with them. I have also reviewed and agree with the past medical, family and social history unless otherwise noted. All of the patient's questions were answered. Patient Care Team: Ana Bolaños MD as PCP - General Gavin Moctezuma MD as Surgeon (Bariatric Surgery) PHILL Mojica as Physician Unix Analyst (Bariatrics) [facility] POST WEIGHT LOSS SURGERY FOLLOW UP - 1 WEEK Rooming Note Patient: Santos Allan Service Date: 09/10/2022 Patient is 1 week s/p Lap Sleeve Gastrectomy Pre-Surgical Weight Loss Initial Height: 5' 7 (170.2 cm) Initial Weight: 271 lb (123 kg) Initial BMI: 42.44 [place] Body Weight: 135 lb (61.2 kg) Surgery Date: 09/02/22 Pre-Surgical Height: 5' 7 (170.2 cm) Pre-Surgical Weight: 272 lb 12.8 oz (124 kg) Pre Surgery BMI: 42.72 Weight to Lose: 137 lb Post-Surgical Weight Loss Date: 09/10/22 Height: 5' 7 (170.2 cm) Weight: 264 lb (120 kg) BMI: 41.34 Weight Change: -8.8 lbs Total Weight Change: -8.8 lbs % EBWL: 6% Comments: 1W Pain: Patient rates pain on scale 0-10 as: 4 Patient has the following questions: none Patient is not diabetic If patient IS Diabetic: Patient has not spoken with the physician who prescribes their diabetic medications Patient has not resumed their diabetic medications as directed by their physician Patient advised as follows by physician prescribing diabetic medications: none Exercise Compliance: Compliance with recommended current exercise plan of walking/frequent ambulation: yes Falls Risk Assessment Patient does take medications which affect BP or mental status Patient does not have newly prescribed or changed dosage of medications within past 30 days which affect BP or mental status Patient has fallen in the past 2 months Patient does not demonstrate unsteady gait Patient uses the following ambulatory assistive devices: none Patient states the presence of the following traits which increases risk of fall: none Patient is low risk for falls. If high or moderate risk, patient instructed not to ambulate independently in the Center, and cord for call light placed within reach of patient. Post-op Weight Metrics: %EBWL: % EBWL: 6% Weight Change Since Last Visit: Weight Change: -8.8 lbs Weight Change from Highest Pre-op Weight: Total Weight Change: -8.8 lbs Completed by: Mckenzie Samayoa [facility] 1 WEEK VISIT POST-OPERATIVE DIETITIAN Date: 09/10/22 Protein requirements discussed. Patient to consume 65-75 grams daily. Fluid requirements discussed. Patient to consume 64 oz+ daily. Patient is aware that she must consume fluids 30 mintues before and after meals. Exercise activities discussed with the patient. She doeshave a plan for exercise when cleared. Patient advised that regular exercise is vital to a successful outcome following weight loss surgery. Behavioral/Emotional changes reviewed Patient does feel comfortable with changes in eating behaviors and associated emotional changes. She was reminded that psychological counseling is available through the [facility] post-operatively. The importance of vitamin supplementation has been discussed with patient. She will start the following vitamin supplements today: -Multivitamin with minerals and iron -Calcium -Vitamin B12 -Vitamin D3 -Other: Recent Nutrient Concerns and Vitamin Supplementation Changes: Reviewed vitamin and mineral protocol. Notes/Comments: Pt tolerating full liquid diet well. Reviewed advancement of diet. To begin pureed diet x 10 days, and then advance to the soft diet, and remain on the soft diet until returns for 1 month post-op appointment. To begin Vitamin/mineral protocol. Pt encouraged to call/Mychart with questions. Visit completed by: Marilou Clifton RD documented in this encounter [facility] 08-28-2022 History of Present illness Narrative CC: [...] Having a stomach sleeve bariatric surgery at [facility] next Wednesday.Has had 2 different banding surgeries in the past that the band would slip. 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 REVIEW OF SYSTEMS General: no fevers, [...] Take 1 tablet at approximately 7 PM. zeiry-zv-[id number]-cov-fse-vaipmqb-ast (KRILL OIL) [id number] mg cap Take 1,000 mg by mouth [...] symptoms occur. Patient agreeable to treatment plan. Fior Alvarze APRN.CNP documented in this encounter [facility] 04-09-2022 Miscellaneous Notes Orders for mask fitting and request EARL notes faxed to Sophie. DWAYNE Verdugo documented in this encounter [facility] 04-06-2022 History of Present illness Narrative [...] 1 tablet by mouth three times daily. tajlo-it-9-pwi-bwj-yogqsix-ast (KRILL OIL) [id number] mg cap Take 1,000 mg by mouth [...] and myositis, unspecified REMIGIO (obstructive sleep apnea) [facility] - Dasga for AutoPAP Other and unspecified hyperlipidemia Right [...] obesity type, unspecified whether serious comorbidity present ([facility]) - ICD9: 278.01, V85.41, ICD10: E66.01, Z68.41 [...] which included preparing to see the patient, [id number] patient care, completing clinical documentation, obtaining and/or reviewing separately obtained history, performing a medically appropriate examination, counseling and educating the patient/family/caregiver, ordering medications, tests, or procedures, independently interpreting results (not separately reported) and communicating results to the patient/family/caregiver. documented in this encounter [facility] 03-11-2022 Miscellaneous Notes TC to patient to verify DME company for PAP compliance. Pt uses [facility]. Information updated in pt chart. DWAYNE Verdugo documented in this encounter [facility] 02-17-2022 Miscellaneous Notes Received BIPAP and supplies order form from [facility]. The form requires the provider's signature. Nurse will forward form to the provider for signature. documented in this encounter [facility] 02-06-2022 Miscellaneous Notes Information faxed. Janette Collazo LPN Will fax information to [facility]. [facility] and aware information being fax[facility] to [phone] Attn: Allegra Emmanuel As requested. Janette Collazo LPN Allegra from [facility] - called regarding paperwork not received. Ie: Clinicals, sleep study, orders, demographics, etc. Was this faxed to [phone]? Please fax again. documented in this encounter [facility] 02-06-2022 Miscellaneous Notes Please see telephone encounter dated 02/04/2022. Janette Collazo LPN documented in this encounter [facility] 01-26-2022 Miscellaneous Notes New order for PAP settings faxed to [facility] at #[phone]. DWAYNE Verdugo documented in this encounter [facility] 01-23-2022 Miscellaneous Notes Emailed PSG Interpretation report with PAP Titration from [facility] to Dr Quinteros to address. documented in this encounter [facility] 01-09-2022 Miscellaneous Notes Patient has been [...] C Garcia LPN documented in this encounter [facility] 12-26-2021 Miscellaneous Notes This staff will fax the requested documents to [place] to the fax number provided [employer] ([employer]) calls with patient also on the line stating that they are helping the patient to try to get her sleep study pre cert approved. [employer] is asking for office to send some information to them via fax. Patient gives verbal permission for this. [employer] asking for clinical notes documenting need for additional study and copy of study that was completed in November. Fax # to send to is . They ask that every page of fax contain patient name and along with Case # [id number]. documented in this encounter [facility] 12-17-2021 History of Present illness Narrative [...] Alexander Quinteros MD documented in this encounter [facility] 11-18-2021 History of Present illness Narrative Pt and family verbalized understanding of recovery instructions, pt verbalized a readiness to be discharged home. Pt discharged home via wheelchair accompanied by RN/volunteer. Pt has had all their belongings returned to them at discharge Pt received from OR via cart, spont. Resp. With SUGAR REFINER in attendance. Placed on monitor. Monitor alarms on in PACU Belongings with patient. documented in this encounter [employer] Phone: 11-18-2021 Hospital Discharge instructions Gavin Moctezuma MD - 11/18/2021 Images from the original note were not included. [facility] - Surgery [facility] Physicians Surgery DISCHARGE INSTRUCTIONS FOR DR. MOCTEZUMA Thank you very much for allowing me to participate in your care, it is truly a privilege. Below please see discharge orders that will help you during your recovery. Please do not hesitate to call the office during the day at [phone] for any questions. After hours, the same [...] care, and get well soon! Best regards, Gavin Moctezuma M.D., F.A.C.S. documented in this encounter [employer] Work Phone: 11-14-2021 Hospital Discharge instructions Juany Martinez RN - 11/14/2021 Zack: Enter through Door number 2 Registration department is located here Patient will be escorted to [facility] Zack does not open before 6am Shower with hibiclens Please bring your [facility] Surgical Information folder on the day of [...] call your surgeon. documented in this encounter [employer] Work Phone: 10-13-2019 History of Present illness Narrative PT AND FAMILY VERBALIZED UNDERSTANDING OF HOMEGOING INSTRUCTIONS, PT VERBALIZED A READINESS TO BE DISCHARGED HOME. PT DISCHARGED HOME VIA WHEELCHAIR ACCOMPANIED BY VOLUNTEER. PT HAS HAD ALL THEIR BELONGINGS RETURNED TO THEM AT DISCHARGE PATIENT RECEIVED FROM OR VIA CART FAST TRACK TO PHASE II . ALERT SPONT RESP. WITH SUGAR REFINER IN ATTENDANCE documented in this encounter [employer] Work Phone: 07-22-2015 History of Past i llness Narrative Problem Noted Date Resolved Date Hyperlipidemia 07/22/2015 08/11/2016 Gastroparesis 01/18/2015 03/02/2016 Gastroparesis 01/02/2015 01/02/2015 Diabetes mellitus type 2, controlled, without co mplications 12/27/2014 01/20/2016 DIABETES MELLITUS ADULT ONSET 01/18/2007 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, [employer], [place], [place] HYPERTENSION BENIGN 01/18/2007 08/11/2016 HYPERLIPIDEMIA 01/18/2007 08/11/2016 Hypothyroidism 01/18/2007 03/02/2016 EDEMA EXTREMITIES 01/18/2007 08/11/2016 Anemia 02/22/2019 Last Assessment & Plan: Currently stable documented as of this encounter (statuses as of 12/16/2021) [facility] History of Past illness Narrative* Problem Noted Date Resolved Date Hyperlipidemia 07/22/2015 08/11/2016 Gastroparesis 01/18/2015 03/02/2016 Gastroparesis 01/02/2015 01/02/2015 Diabetes mellitus type 2, controlled, without co mplications 12/27/2014 01/20/2016 DIABETES MELLITUS ADULT ONSET 01/18/2007 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, [employer], [place], [place] HYPERTENSION BENIGN 01/18/2007 08/11/2016 HYPERLIPIDEMIA 01/18/2007 08/11/2016 Hypothyroidism 01/18/2007 03/02/2016 EDEMA EXTREMITIES 01/18/2007 08/11/2016 Anemia 02/22/2019 Last Assessment & Plan: Currently stable documented as of this encounter (statuses as of 12/17/2021) [facility] History of Past illness Narrative* Problem Noted Date Resolved Date Hyperlipidemia 07/22/2015 08/11/2016 Gastroparesis 01/18/2015 03/02/2016 Gastroparesis 01/02/2015 01/02/2015 Diabetes mellitus type 2, controlled, without co mplications 12/27/2014 01/20/2016 DIABETES MELLITUS ADULT ONSET 01/18/2007 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, [employer], [place], [place] HYPERTENSION BENIGN 01/18/2007 08/11/2016 HYPERLIPIDEMIA 01/18/2007 08/11/2016 Hypothyroidism 01/18/2007 03/02/2016 EDEMA EXTREMITIES 01/18/2007 08/11/2016 Anemia 02/22/2019 Last Assessment & Plan: Currently stable documented as of this encounter (statuses as of 12/30/2021) [facility] History of Past illness Narrative* Problem Noted Date Resolved Date Hyperlipidemia 07/22/2015 08/11/2016 Gastroparesis 01/18/2015 03/02/2016 Gastroparesis 01/02/2015 01/02/2015 Diabetes mellitus type 2, controlled, without co mplications 12/27/2014 01/20/2016 DIABETES MELLITUS ADULT ONSET 01/18/2007 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, [employer], [place], [place] HYPERTENSION BENIGN 01/18/2007 08/11/2016 HYPERLIPIDEMIA 01/18/2007 08/11/2016 Hypothyroidism 01/18/2007 03/02/2016 EDEMA EXTREMITIES 01/18/2007 08/11/2016 Anemia 02/22/2019 Last Assessment & Plan: Currently stable documented as of this encounter (statuses as of 01/12/2022) [facility] History of Past illness Narrative* Problem Noted Date Resolved Date Hyperlipidemia 07/22/2015 08/11/2016 Gastroparesis 01/18/2015 03/02/2016 Gastroparesis 01/02/2015 01/02/2015 Diabetes mellitus type 2, controlled, without co mplications 12/27/2014 01/20/2016 DIABETES MELLITUS ADULT ONSET 01/18/2007 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, [employer], [place], [place] HYPERTENSION BENIGN 01/18/2007 08/11/2016 HYPERLIPIDEMIA 01/18/2007 08/11/2016 Hypothyroidism 01/18/2007 03/02/2016 EDEMA EXTREMITIES 01/18/2007 08/11/2016 Anemia 02/22/2019 Last Assessment & Plan: Currently stable documented as of this encounter (statuses as of 01/26/2022) [facility] History of Past illness Narrative* Problem Noted Date Resolved Date Hyperlipidemia 07/22/2015 08/11/2016 Gastroparesis 01/18/2015 03/02/2016 Gastroparesis 01/02/2015 01/02/2015 Diabetes mellitus type 2, controlled, without co mplications 12/27/2014 01/20/2016 DIABETES MELLITUS ADULT ONSET 01/18/2007 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, [employer], [place], [place] HYPERTENSION BENIGN 01/18/2007 08/11/2016 HYPERLIPIDEMIA 01/18/2007 08/11/2016 Hypothyroidism 01/18/2007 03/02/2016 EDEMA EXTREMITIES 01/18/2007 08/11/2016 Anemia 02/22/2019 Last Assessment & Plan: Currently stable documented as of this encounter (statuses as of 01/26/2022) [facility] History of Past illness Narrative* Problem Noted Date Resolved Date Hyperlipidemia 07/22/2015 08/11/2016 Gastroparesis 01/18/2015 03/02/2016 Gastroparesis 01/02/2015 01/02/2015 Diabetes mellitus type 2, controlled, without co mplications 12/27/2014 01/20/2016 DIABETES MELLITUS ADULT ONSET 01/18/2007 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, [employer], [place], [place] HYPERTENSION BENIGN 01/18/2007 08/11/2016 HYPERLIPIDEMIA 01/18/2007 08/11/2016 Hypothyroidism 01/18/2007 03/02/2016 EDEMA EXTREMITIES 01/18/2007 08/11/2016 Anemia 02/22/2019 Last Assessment & Plan: Currently stable documented as of this encounter (statuses as of 02/06/2022) [facility] History of Past illness Narrative* Problem Noted Date Resolved Date Hyperlipidemia 07/22/2015 08/11/2016 Gastroparesis 01/18/2015 03/02/2016 Gastroparesis 01/02/2015 01/02/2015 Diabetes mellitus type 2, controlled, without co mplications 12/27/2014 01/20/2016 DIABETES MELLITUS ADULT ONSET 01/18/2007 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, [employer], [place], [place] HYPERTENSION BENIGN 01/18/2007 08/11/2016 HYPERLIPIDEMIA 01/18/2007 08/11/2016 Hypothyroidism 01/18/2007 03/02/2016 EDEMA EXTREMITIES 01/18/2007 08/11/2016 Anemia 02/22/2019 Last Assessment & Plan: Currently stable documented as of this encounter (statuses as of 02/06/2022) [facility] History of Past illness Narrative* Problem Noted Date Resolved Date Hyperlipidemia 07/22/2015 08/11/2016 Gastroparesis 01/18/2015 03/02/2016 Gastroparesis 01/02/2015 01/02/2015 Diabetes mellitus type 2, controlled, without co mplications 12/27/2014 01/20/2016 DIABETES MELLITUS ADULT ONSET 01/18/2007 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, [employer], [place], [place] HYPERTENSION BENIGN 01/18/2007 08/11/2016 HYPERLIPIDEMIA 01/18/2007 08/11/2016 Hypothyroidism 01/18/2007 03/02/2016 EDEMA EXTREMITIES 01/18/2007 08/11/2016 Anemia 02/22/2019 Last Assessment & Plan: Currently stable documented as of this encounter (statuses as of 02/17/2022) [facility] History of Past illness Narrative* Problem Noted Date Resolved Date Hyperlipidemia 07/22/2015 08/11/2016 Gastroparesis 01/18/2015 03/02/2016 Gastroparesis 01/02/2015 01/02/2015 Diabetes mellitus type 2, controlled, without co mplications 12/27/2014 01/20/2016 DIABETES MELLITUS ADULT ONSET 01/18/2007 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, [employer], [place], [place] HYPERTENSION BENIGN 01/18/2007 08/11/2016 HYPERLIPIDEMIA 01/18/2007 08/11/2016 Hypothyroidism 01/18/2007 03/02/2016 EDEMA EXTREMITIES 01/18/2007 08/11/2016 Anemia 02/22/2019 Last Assessment & Plan: Currently stable documented as of this encounter (statuses as of 02/19/2022) [facility] History of Past illness Narrative* Problem Noted Date Resolved Date Hyperlipidemia 07/22/2015 08/11/2016 Gastroparesis 01/18/2015 03/02/2016 Gastroparesis 01/02/2015 01/02/2015 Diabetes mellitus type 2, controlled, without co mplications 12/27/2014 01/20/2016 DIABETES MELLITUS ADULT ONSET 01/18/2007 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, [employer], [place], [place] HYPERTENSION BENIGN 01/18/2007 08/11/2016 HYPERLIPIDEMIA 01/18/2007 08/11/2016 Hypothyroidism 01/18/2007 03/02/2016 EDEMA EXTREMITIES 01/18/2007 08/11/2016 Anemia 02/22/2019 Last Assessment & Plan: Currently stable documented as of this encounter (statuses as of 02/27/2022) [facility] History of Past illness Narrative* Problem Noted Date Resolved Date Hyperlipidemia 07/22/2015 08/11/2016 Gastroparesis 01/18/2015 03/02/2016 Gastroparesis 01/02/2015 01/02/2015 Diabetes mellitus type 2, controlled, without co mplications 12/27/2014 01/20/2016 DIABETES MELLITUS ADULT ONSET 01/18/2007 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, [employer], [place], [place] HYPERTENSION BENIGN 01/18/2007 08/11/2016 HYPERLIPIDEMIA 01/18/2007 08/11/2016 Hypothyroidism 01/18/2007 03/02/2016 EDEMA EXTREMITIES 01/18/2007 08/11/2016 Anemia 02/22/2019 Last Assessment & Plan: Currently stable documented as of this encounter (statuses as of 03/11/2022) [facility] History of Past illness Narrative* Problem Noted Date Resolved Date Hyperlipidemia 07/22/2015 08/11/2016 Gastroparesis 01/18/2015 03/02/2016 Gastroparesis 01/02/2015 01/02/2015 Diabetes mellitus type 2, controlled, without co mplications 12/27/2014 01/20/2016 DIABETES MELLITUS ADULT ONSET 01/18/2007 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, [employer], [place], [place] HYPERTENSION BENIGN 01/18/2007 08/11/2016 HYPERLIPIDEMIA 01/18/2007 08/11/2016 Hypothyroidism 01/18/2007 03/02/2016 EDEMA EXTREMITIES 01/18/2007 08/11/2016 Anemia 02/22/2019 Last Assessment & Plan: Currently stable documented as of this encounter (statuses as of 04/06/2022) [facility] History of Past illness Narrative* Problem Noted Date Resolved Date Hyperlipidemia 07/22/2015 08/11/2016 Gastroparesis 01/18/2015 03/02/2016 Gastroparesis 01/02/2015 01/02/2015 Diabetes mellitus type 2, controlled, without co mplications 12/27/2014 01/20/2016 DIABETES MELLITUS ADULT ONSET 01/18/2007 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, [employer], [place], [place] HYPERTENSION BENIGN 01/18/2007 08/11/2016 HYPERLIPIDEMIA 01/18/2007 08/11/2016 Hypothyroidism 01/18/2007 03/02/2016 EDEMA EXTREMITIES 01/18/2007 08/11/2016 Anemia 02/22/2019 Last Assessment & Plan: Currently stable documented as of this encounter (statuses as of 04/09/2022) [facility] History of Past illness Narrative* Problem Noted Date Resolved Date Hyperlipidemia 07/22/2015 08/11/2016 Gastroparesis 01/18/2015 03/02/2016 Gastroparesis 01/02/2015 01/02/2015 Diabetes mellitus type 2, controlled, without co mplications 12/27/2014 01/20/2016 DIABETES MELLITUS ADULT ONSET 01/18/2007 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, [employer], [place] HYPERTENSION BENIGN 01/18/2007 08/11/2016 HYPERLIPIDEMIA 01/18/2007 08/11/2016 Hypothyroidism 01/18/2007 03/02/2016 EDEMA EXTREMITIES 01/18/2007 08/11/2016 Anemia 02/22/2019 Last Assessment & Plan: Currently stable documented as of this encounter (statuses as of 08/14/2022) [facility] of Past illness Narrative* Problem Noted Date Resolved Date Hyperlipidemia 07/22/2015 08/11/2016 Gastroparesis 01/18/2015 03/02/2016 Gastroparesis 01/02/2015 01/02/2015 Diabetes mellitus type 2, controlled, without co mplications 12/27/2014 01/20/2016 DIABETES MELLITUS ADULT ONSET 01/18/2007 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, [employer], [place], [place] HYPERTENSION BENIGN 01/18/2007 08/11/2016 HYPERLIPIDEMIA 01/18/2007 08/11/2016 Hypothyroidism 01/18/2007 03/02/2016 EDEMA EXTREMITIES 01/18/2007 08/11/2016 Anemia 02/22/2019 Last Assessment & Plan: Currently stable documented as of this encounter (statuses as of 08/17/2022) [facility] of [facility] illness Narrative* Problem Noted Date Resolved Date Hyperlipidemia 07/22/2015 08/11/2016 Gastroparesis 01/18/2015 03/02/2016 Gastroparesis 01/02/2015 01/02/2015 Diabetes mellitus type 2, controlled, without co mplications 12/27/2014 01/20/2016 DIABETES MELLITUS ADULT ONSET 01/18/2007 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, [employer], [place], [place] HYPERTENSION BENIGN 01/18/2007 08/11/2016 HYPERLIPIDEMIA 01/18/2007 08/11/2016 Hypothyroidism 01/18/2007 03/02/2016 EDEMA EXTREMITIES 01/18/2007 08/11/2016 Anemia 02/22/2019 Last Assessment & Plan: Currently stable documented as of this encounter (statuses as of 08/28/2022) [facility] of Past illness Narrative* Problem Noted Date Resolved Date Hyperlipidemia 07/22/2015 08/11/2016 Gastroparesis 01/18/2015 03/02/2016 Gastroparesis 01/02/2015 01/02/2015 Diabetes mellitus type 2, controlled, without co mplications 12/27/2014 01/20/2016 DIABETES MELLITUS ADULT ONSET 01/18/2007 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, [employer], [place], [place] HYPERTENSION BENIGN 01/18/2007 08/11/2016 HYPERLIPIDEMIA 01/18/2007 08/11/2016 Hypothyroidism 01/18/2007 03/02/2016 EDEMA EXTREMITIES 01/18/2007 08/11/2016 Anemia 02/22/2019 Last Assessment & Plan: Currently stable documented as of this encounter (statuses as of 09/21/2022) [facility] of Past illness Narrative* Problem Noted Date Resolved Date Hyperlipidemia 07/22/2015 08/11/2016 Gastroparesis 01/18/2015 03/02/2016 Gastroparesis 01/02/2015 01/02/2015 Diabetes mellitus type 2, controlled, without co mplications 12/27/2014 01/20/2016 DIABETES MELLITUS ADULT ONSET 01/18/2007 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, [employer], [place], [place] HYPERTENSION BENIGN 01/18/2007 08/11/2016 HYPERLIPIDEMIA 01/18/2007 08/11/2016 Hypothyroidism 01/18/2007 03/02/2016 EDEMA EXTREMITIES 01/18/2007 08/11/2016 Anemia 02/22/2019 Last Assessment & Plan: Currently stable documented as of this encounter (statuses as of 10/08/2022) [facility] of Past illness Narrative* Problem Noted Date Resolved Date Hyperlipidemia 07/22/2015 08/11/2016 Gastroparesis 01/18/2015 03/02/2016 Gastroparesis 01/02/2015 01/02/2015 Diabetes mellitus type 2, controlled, without co mplications 12/27/2014 01/20/2016 DIABETES MELLITUS ADULT ONSET 01/18/2007 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, [employer], [place], [place] HYPERTENSION BENIGN 01/18/2007 08/11/2016 HYPERLIPIDEMIA 01/18/2007 08/11/2016 Hypothyroidism 01/18/2007 03/02/2016 EDEMA EXTREMITIES 01/18/2007 08/11/2016 Anemia 02/22/2019 Last Assessment & Plan: Currently stable documented as of this encounter (statuses as of 11/10/2022) [facility] History of Past illness Narrative* Problem Noted Date Resolved Date Hyperlipidemia 07/22/2015 08/11/2016 Gastroparesis 01/18/2015 03/02/2016 Gastroparesis 01/02/2015 01/02/2015 Diabetes mellitus type 2, controlled, without co mplications 12/27/2014 01/20/2016 DIABETES MELLITUS ADULT ONSET 01/18/2007 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, [employer], [place], [place] HYPERTENSION BENIGN 01/18/2007 08/11/2016 HYPERLIPIDEMIA 01/18/2007 08/11/2016 Hypothyroidism 01/18/2007 03/02/2016 EDEMA EXTREMITIES 01/18/2007 08/11/2016 Anemia 02/22/2019 Last Assessment & Plan: Currently stable documented as of this encounter (statuses as of 12/04/2022) [facility] History of Past illness Narrative* Problem Noted Date Resolved Date Hyperlipidemia 07/22/2015 08/11/2016 Gastroparesis 01/18/2015 03/02/2016 Gastroparesis 01/02/2015 01/02/2015 Diabetes mellitus type 2, controlled, without co mplications 12/27/2014 01/20/2016 DIABETES MELLITUS ADULT ONSET 01/18/2007 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, [employer], [place], [place] HYPERTENSION BENIGN 01/18/2007 08/11/2016 HYPERLIPIDEMIA 01/18/2007 08/11/2016 Hypothyroidism 01/18/2007 03/02/2016 EDEMA EXTREMITIES 01/18/2007 08/11/2016 Anemia 02/22/2019 Last Assessment & Plan: Currently stable documented as of this encounter (statuses as of 12/22/2022) [facility] History of Past illness Narrative* Problem Noted Date Resolved Date Hyperlipidemia 07/22/2015 08/11/2016 Gastroparesis 01/18/2015 03/02/2016 Gastroparesis 01/02/2015 01/02/2015 Diabetes mellitus type 2, controlled, without co mplications 12/27/2014 01/20/2016 DIABETES MELLITUS ADULT ONSET 01/18/2007 Overview: Dr. Eriak Newton, [employer], [place], [place] HYPERTENSION BENIGN 01/18/2007 08/11/2016 HYPERLIPIDEMIA 01/18/2007 08/11/2016 Hypothyroidism 01/18/2007 03/02/2016 EDEMA EXTREMITIES 01/18/2007 08/11/2016 Anemia 02/22/2019 Last Assessment & Plan: Currently stable documented as of this encounter (statuses as of 12/23/2022) [facility] History of Past illness Narrative* Problem Noted Date Diagnosed Date Resolved Date Hyperlipidemia 07/22/2015 08/11/2016 Gastroparesis 01/18/2015 03/02/2016 Gastroparesis 01/02/2015 01/02/2015 Diabetes mellitus type 2, co ntrolled, without complications 12/27/2014 01/20/2016 DIABETES MELLITUS ADULT ONSET 01/18/2007 04/28/2012 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, [employer], [place], [place] HYPERTENSION BENIGN 01/18/2007 08/11/20 16 HYPERLIPIDEMIA 01/18/2007 08/11/2016 Hypothyroidism 01/18/2007 03/02/2016 EDEMA EXTREMITIES 01/18/2007 08/11/2016 Anemia 02/22/2019 Last Assessment & Plan: Currently stable documented as of this encounter (statuses as of 07/26/2023) [facility] History of Past illness Narrative* Problem Noted Date Diagnosed Date Resolved Date Hyperlipidemia 07/22/2015 08/11/2016 Gastroparesis 01/18/2015 03/02/2016 Gastroparesis 01/02/2015 01/02/2015 Diabetes mellitus type 2, co ntrolled, without complications 12/27/2014 01/20/2016 DIABETES MELLITUS ADULT ONSET 01/18/2007 04/28/2012 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, [employer], [place], [place] HYPERTENSION BENIGN 01/18/2007 08/11/20 16 HYPERLIPIDEMIA 01/18/2007 08/11/2016 Hypothyroidism 01/18/2007 03/02/2016 EDEMA EXTREMITIES 01/18/2007 08/11/2016 Anemia 02/22/2019 Last Assessment & Plan: Currently stable documented as of this encounter (statuses as of 08/03/2023) [facility] History of Past illness Narrative* Problem Noted Date Diagnosed Date Resolved Date Hyperlipidemia 07/22/2015 08/11/2016 Gastroparesis 01/18/2015 03/02/2016 Gastroparesis 01/02/2015 01/02/2015 Diabetes mellitus type 2, co ntrolled, without complications 12/27/2014 01/20/2016 DIABETES MELLITUS ADULT ONSET 01/18/2007 04/28/2012 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, [employer], [place], [place] HYPERTENSION BENIGN 01/18/2007 08/11/20 16 HYPERLIPIDEMIA 01/18/2007 08/11/2016 Hypothyroidism 01/18/2007 03/02/2016 EDEMA EXTREMITIES 01/18/2007 08/11/2016 Anemia 02/22/2019 Last Assessment & Plan: Currently stable documented as of this encounter (statuses as of 08/06/2023) [facility] History of Past illness Narrative* Problem Noted Date Diagnosed Date Resolved Date Hyperlipidemia 07/22/2015 08/11/2016 Gastroparesis 01/18/2015 03/02/2016 Gastroparesis 01/02/2015 01/02/2015 Diabetes mellitus type 2, co ntrolled, without complications 12/27/2014 01/20/2016 DIABETES MELLITUS ADULT ONSET 01/18/2007 04/28/2012 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, [employer], [place], [place] HYPERTENSION BENIGN 01/18/2007 08/11/20 16 HYPERLIPIDEMIA 01/18/2007 08/11/2016 Hypothyroidism 01/18/2007 03/02/2016 EDEMA EXTREMITIES 01/18/2007 08/11/2016 Anemia 02/22/2019 Last Assessment & Plan: Currently stable documented as of this encounter (statuses as of 08/19/2023) [facility] History of Past illness Narrative* Problem Noted Date Diagnosed Date Resolved Date Hyperlipidemia 07/22/2015 08/11/2016 Gastroparesis 01/18/2015 03/02/2016 Gastroparesis 01/02/2015 01/02/2015 Diabetes mellitus type 2, co ntrolled, without complications 12/27/2014 01/20/2016 DIABETES MELLITUS ADULT ONSET 01/18/2007 04/28/2012 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, [employer], [place], [place] HYPERTENSION BENIGN 01/18/2007 08/11/20 16 HYPERLIPIDEMIA 01/18/2007 08/11/2016 Hypothyroidism 01/18/2007 03/02/2016 EDEMA EXTREMITIES 01/18/2007 08/11/2016 Anemia 02/22/2019 Last Assessment & Plan: Currently stable documented as of this encounter (statuses as of 11/05/2023) [facility] History of Past illness Narrative* Problem Noted Date Diagnosed Date Resolved Date Hyperlipidemia 07/22/2015 08/11/2016 Gastroparesis 01/18/2015 03/02/2016 Gastroparesis 01/02/2015 01/02/2015 Diabetes mellitus type 2, co ntrolled, without complications 12/27/2014 01/20/2016 DIABETES MELLITUS ADULT ONSET 01/18/2007 04/28/2012 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, [employer], [place], [place] HYPERTENSION BENIGN 01/18/2007 08/11/20 16 HYPERLIPIDEMIA 01/18/2007 08/11/2016 Hypothyroidism 01/18/2007 03/02/2016 EDEMA EXTREMITIES 01/18/2007 08/11/2016 Anemia 02/22/2019 Last Assessment & Plan: Currently stable documented as of this encounter (statuses as of 11/17/2023) [facility] History of Past illness Narrative* Problem Noted Date Diagnosed Date Resolved Date Hyperlipidemia 07/22/2015 08/11/2016 Gastroparesis 01/18/2015 03/02/2016 Gastroparesis 01/02/2015 01/02/2015 Diabetes mellitus type 2, co ntrolled, without complications 12/27/2014 01/20/2016 DIABETES MELLITUS ADULT ONSET 01/18/2007 04/28/2012 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, [employer], [place], [place] HYPERTENSION BENIGN 01/18/2007 08/11/20 16 HYPERLIPIDEMIA 01/18/2007 08/11/2016 Hypothyroidism 01/18/2007 03/02/2016 EDEMA EXTREMITIES 01/18/2007 08/11/2016 Anemia 02/22/2019 Last Assessment & Plan: Currently stable documented as of this encounter (statuses as of 11/18/2023) [facility] History of Past illness Narrative* Problem Noted Date Diagnosed Date Resolved Date Hyperlipidemia 07/22/2015 08/11/2016 Gastroparesis 01/18/2015 03/02/2016 Gastroparesis 01/02/2015 01/02/2015 Diabetes mellitus type 2, co ntrolled, without complications 12/27/2014 01/20/2016 DIABETES MELLITUS ADULT ONSET 01/18/2007 04/28/2012 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, [employer], [place], [place] HYPERTENSION BENIGN 01/18/2007 08/11/20 16 HYPERLIPIDEMIA 01/18/2007 08/11/2016 Hypothyroidism 01/18/2007 03/02/2016 EDEMA EXTREMITIES 01/18/2007 08/11/2016 Anemia 02/22/2019 Last Assessment & Plan: Currently stable documented as of this encounter (statuses as of 12/24/2023) [facility] Deficiency of multiple nutrient [...] vitamin D deficiency documented in this encounter [employer] Work Phone: Evaluation note* Diagnosis Oropharyngeal dysphagia- [...] mention of hemorrhage documented in this encounter [employer] Work Phone: Evaluation note* Diagnosis Post-op pain- Primary Other acute postoperative pain Subcutaneous mass of right thumb documented in this encounter [employer] Work Phone: Evaluation noteNo assessment information available [facility] Work Phone: Evaluation note* Diagnosis REMIGIO (obstructive sleep apnea)- Primary Obstructive sleep apnea (adult) (pediatric) [facility] Diagnosis REMIGIO (obstructive sleep apnea)- Primary Obstructive sleep apnea (adult) (pediatric) [facility] Diagnosis Medication management Encounter for long-term (current) use of other medications [facility] Diagnosis REMIGIO (obstructive sleep apnea) Obstructive sleep apnea (adult) (pediatric) [facility] Diagnosis Obstructive sleep apnea (adult) (pediatric)- Primary Migraine without status migrainosus, not intractable, unspecified migraine type Insomnia, unspecified type Class 3 severe obesity with body mass index (BMI) of 40.0 to 44.9 in adult, unspecified obesity type, unspecified whether serious comorbidity present (HCC) [facility]* Diagnosis Medication management Encounter for long-term (current) use of other medications Acquired hypothyroidism Unspecified hypothyroidism [facility] Diagnosis Encounter for screening mammogram for breast cancer [facility] Diagnosis Essential hypertension- Primary Unspecified essential hypertension Prediabetes Other abnormal glucose Mixed hyperlipidemia Acquired hypothyroidism Unspecified hypothyroidism Bipolar I disorder, most recent episode depressed (HCC) Bipolar I disorder, most recent episode (or current) depressed, unspecified [facility] Diagnosis Obstructive sleep apnea (adult) (pediatric)- Primary Insomnia, unspecified type Class 3 severe obesity with body mass index (BMI) of 40.0 to 44.9 in adult, unspecified obesity type, unspecified whether serious comorbidity present (HCC) documented in this encounter [facility] note* Diagnosis Primary hypertension- Primary Unspecified essential hypertension REMIGIO on CPAP Deficiency of multiple nutrient elements Other nutritional deficiency Class 2 severe obesity due to excess calories with serious comorbidity and body mass index (BMI) of 35.0 to 35.9 in adult ([facility]) High cholesterol Pure hypercholesterolemia documented in this encounter [facility] note* Diagnosis Essential hypertension- Primary Unspecified essential [...] unspecified Mixed hyperlipidemia documented in this encounter [facility] note* Diagnosis Obstructive sleep apnea syndrome- Primary Obstructive sleep apnea (adult) (pediatric) Insomnia, unspecified type Difficulty using biphasic positive airway pressure (BiPAP) machine documented in this encounter [facility] note* Diagnosis Primary hypertension- Primary Unspecified essential hypertension REMIGIO on CPAP Deficiency of multiple nutrient elements Other nutritional deficiency Hyperlipidemia, unspecified hyperlipidemia type Class 1 obesity due to excess calories with serious comorbidity and body mass index (BMI) of 33.0 to 33.9 in adult High vitamin D level Hypervitaminosis D documented in this encounter [facility] note* Diagnosis Encounter for screening mammogram for breast cancer documented in this encounter [facility] note* Diagnosis Acquired hypothyroidism Unspecified hypothyroidism [facility] Diagnosis Burning sensation of feet- Primary Disturbance of skin sensation documented in this encounter [facility] note* Diagnosis REMIGIO on CPAP Primary hypertension Unspecified essential hypertension Deficiency of multiple nutrient elements Other nutritional deficiency Hyperlipidemia, unspecified hyperlipidemia type Class 2 severe obesity due to excess calories with serious comorbidity and body mass index (BMI) of 36.0 to 36.9 in adult documented in this encounter [facility] note* Diagnosis Migraine without aura and without status migrainosus, not intractable Migraine without aura, without mention of intractable migraine without mention of status migrainosus documented in this encounter [facility] note* Diagnosis Migraine without aura and without status migrainosus, not intractable Migraine without aura, without mention of intractable migraine without mention of status migrainosus documented in this encounter [facility] note* Diagnosis Acquired hypothyroidism Unspecified hypothyroidism documented in this encounter [facility] note* Diagnosis Class 2 severe obesity with serious comorbidity and body mass index (BMI) of 39.0 to 39.9 in adult, unspecified obesity type (HCC)- Primary Obstructive sleep apnea syndrome Obstructive sleep apnea (adult) (pediatric) Insomnia, unspecified type Acquired hypothyroidism Unspecified hypothyroidism Bipolar I disorder, most recent episode depressed (HCC) Bipolar I disorder, most recent episode (or current) depressed, unspecified Essential hypertension Unspecified essential hypertension documented in this encounter [facility] note* Diagnosis Essential hypertension Unspecified essential hypertension Mixed hyperlipidemia documented in this encounter [facility] note* Diagnosis Class 2 obesity due to excess calories without serious comorbidity with body mass index (BMI) of 39.0 to 39.9 in adult- Primary documented in this encounter [facility] note* Diagnosis Class 2 obesity due to excess calories without serious comorbidity with body mass index (BMI) of 38.0 to 38.9 in adult- Primary documented in this encounter [facility] note* Diagnosis Neuropathy- Primary Mononeuritis of unspecified site documented in this encounter [facility] note* Diagnosis Class 2 obesity due to excess calories without serious comorbidity with body mass index (BMI) of 39.0 to 39.9 in adult- Primary documented in this encounter [facility] note* Diagnosis Headache(784.0)- Primary Headache DIABETES MELLITUS ADULT ONSET Type II or unspecified type diabetes mellitus without mention of complication, not stated as uncontrolled HYPERTENSION BENIGN Essential hypertension, benign HYPERLIPIDEMIA Other and unspecified hyperlipidemia HYPOTHYROIDISM PRIMARY Unspecified hypothyroidism Abnormal finding Other nonspecific abnormal finding Cervicalgia Acquired hypothyroidism- Primary Unspecified hypothyroidism Migraine without aura and without status migrainosus, not intractable Migraine without aura, without mention of intractable migraine without mention of status migrainosus Sjogren's disease (HCC) Sicca syndrome Bipolar I disorder, most recent episode depressed (HCC) Bipolar I disorder, most recent episode (or current) depressed, unspecified Iron deficiency anemia, unspecified iron deficiency anemia type Gastroesophageal reflux disease with esophagitis LAP-BAND surgery status Bariatric surgery status Acquired hypothyroidism- Primary Unspecified hypothyroidism Hypoparathyroidism, unspecified hypoparathyroidism type (HCC) LAP-BAND surgery status Bariatric surgery status Annual physical exam- Primary Routine general medical examination at a health care facility Screening for depression Encounter for screening examination for other mental health and behavioral disorders Encounter for immunization Need for other specified prophylactic vaccination against single bacterial disease Encounter for screening mammogram for breast cancer Essential hypertension Unspecified essential hypertension Mixed hyperlipidemia Hypoparathyroidism, unspecified hypoparathyroidism type (HCC) Sjogren syndrome with dental involvement (HCC) [facility] Diagnosis Headache(784.0)- Primary Headache DIABETES MELLITUS ADULT ONSET Type II or unspecified type diabetes mellitus without mention of complication, not stated as uncontrolled HYPERTENSION BENIGN Essential hypertension, benign HYPERLIPIDEMIA Other and unspecified hyperlipidemia HYPOTHYROIDISM PRIMARY Unspecified hypothyroidism Abnormal finding Other nonspecific abnormal finding Cervicalgia Acquired hypothyroidism- Primary Unspecified hypothyroidism Migraine without aura and without status migrainosus, not intractable Migraine without aura, without mention of intractable migraine without mention of status migrainosus Sjogren's disease (HCC) Sicca syndrome Bipolar I disorder, most recent episode depressed (HCC) Bipolar I disorder, most recent episode (or current) depressed, unspecified Iron deficiency anemia, unspecified iron deficiency anemia type Gastroesophageal reflux disease with esophagitis LAP-BAND surgery status Bariatric surgery status Acquired hypothyroidism- Primary Unspecified hypothyroidism Hypoparathyroidism, unspecified hypoparathyroidism type (HCC) LAP-BAND surgery status Bariatric surgery status Class 2 obesity due to excess calories without serious comorbidity with body mass index (BMI) of 39.0 to 39.9 in adult [facility] Diagnosis Headache(784.0)- Primary Headache DIABETES MELLITUS ADULT ONSET Type II or unspecified type diabetes mellitus without mention of complication, not stated as uncontrolled HYPERTENSION BENIGN Essential hypertension, benign HYPERLIPIDEMIA Other and unspecified hyperlipidemia HYPOTHYROIDISM PRIMARY Unspecified hypothyroidism Abnormal finding Other nonspecific abnormal finding Cervicalgia Acquired hypothyroidism- Primary Unspecified hypothyroidism Migraine without aura and without status migrainosus, not intractable Migraine without aura, without mention of intractable migraine without mention of status migrainosus Sjogren's disease (HCC) Sicca syndrome Bipolar I disorder, most recent episode depressed (HCC) Bipolar I disorder, most recent episode (or current) depressed, unspecified Iron deficiency anemia, unspecified iron deficiency anemia type Gastroesophageal reflux disease with esophagitis LAP-BAND surgery status Bariatric surgery status Acquired hypothyroidism- Primary Unspecified hypothyroidism Hypoparathyroidism, unspecified hypoparathyroidism type (HCC) LAP-BAND surgery status Bariatric surgery status Neuropathy- Primary Mononeuritis of unspecified site documented in this encounter [facility] note* Diagnosis Headache(784.0)- Primary Headache DIABETES MELLITUS ADULT ONSET Type II or unspecified type diabetes mellitus without mention of complication, not stated as uncontrolled HYPERTENSION BENIGN Essential hypertension, benign HYPERLIPIDEMIA Other and unspecified hyperlipidemia HYPOTHYROIDISM PRIMARY Unspecified hypothyroidism Abnormal finding Other nonspecific abnormal finding Cervicalgia Acquired hypothyroidism- Primary Unspecified hypothyroidism Migraine without aura and without status migrainosus, not intractable Migraine without aura, without mention of intractable migraine without mention of status migrainosus Sjogren's disease (HCC) Sicca syndrome Bipolar I disorder, most recent episode depressed (HCC) Bipolar I disorder, most recent episode (or current) depressed, unspecified Iron deficiency anemia, unspecified iron deficiency anemia type Gastroesophageal reflux disease with esophagitis LAP-BAND surgery status Bariatric surgery status Acquired hypothyroidism- Primary Unspecified hypothyroidism Hypoparathyroidism, unspecified hypoparathyroidism type (HCC) LAP-BAND surgery status Bariatric surgery status Acquired hypothyroidism- Primary Unspecified hypothyroidism Class 2 obesity due to excess calories without serious comorbidity with body mass index (BMI) of 39.0 to 39.9 in adult Obstructive sleep apnea syndrome Obstructive sleep apnea (adult) (pediatric) Hyperlipidemia, unspecified hyperlipidemia type Essential hypertension Unspecified essential hypertension Hypokalemia Hypopotassemia [facility] Diagnosis Hypokalemia- Primary Hypopotassemia Elevated vitamin B12 level [facility] Diagnosis Encounter for postoperative care- Primary Primary hypertension Unspecified essential hypertension Hyperlipidemia, unspecified hyperlipidemia type Hypothyroidism, unspecified type REMIGIO (obstructive sleep apnea) Obstructive sleep apnea (adult) (pediatric) Class 2 obesity due to excess calories with body mass index (BMI) of 38.0 to 38.9 in adult, unspecified whether serious comorbidity present Deficiency of multiple nutrient elements Other nutritional deficiency [facility] Diagnosis Encounter for postoperative care- Primary GERD without esophagitis Esophageal reflux Deficiency of multiple nutrient elements Other nutritional deficiency REMIGIO (obstructive sleep apnea) Obstructive sleep apnea (adult) (pediatric) Hyperlipidemia, unspecified hyperlipidemia type Primary hypertension Unspecified essential hypertension Morbid obesity with BMI of 40.0-44.9, adult (HCC) documented in this encounter [facility] note* Diagnosis Encounter for other preprocedural examination- Primary Encounter for other preprocedural examination documented in this encounter [facility] note* Diagnosis Headache(784.0)- Primary Headache DIABETES MELLITUS ADULT ONSET Type II or unspecified type diabetes mellitus without mention of complication, not stated as uncontrolled HYPERTENSION BENIGN Essential hypertension, benign HYPERLIPIDEMIA Other and unspecified hyperlipidemia HYPOTHYROIDISM PRIMARY Unspecified hypothyroidism Abnormal finding Other nonspecific abnormal finding Cervicalgia Acquired hypothyroidism- Primary Unspecified hypothyroidism Migraine without aura and without status migrainosus, not intractable Migraine without aura, without mention of intractable migraine without mention of status migrainosus Sjogren's disease (HCC) Sicca syndrome Bipolar I disorder, most recent episode depressed (HCC) Bipolar I disorder, most recent episode (or current) depressed, unspecified Iron deficiency anemia, unspecified iron deficiency anemia type Gastroesophageal reflux disease with esophagitis LAP-BAND surgery status Bariatric surgery status Acquired hypothyroidism- Primary Unspecified hypothyroidism Hypoparathyroidism, unspecified hypoparathyroidism type (HCC) LAP-BAND surgery status Bariatric surgery status Encounter for gynecological examination (general) (routine) without abnormal findings- Primary Encounter for screening mammogram for breast cancer documented in this encounter [facility] note* Diagnosis Headache(784.0)- Primary Headache DIABETES MELLITUS ADULT ONSET Type II or unspecified type diabetes mellitus without mention of complication, not stated as uncontrolled HYPERTENSION BENIGN Essential hypertension, benign HYPERLIPIDEMIA Other and unspecified hyperlipidemia HYPOTHYROIDISM PRIMARY Unspecified hypothyroidism Abnormal finding Other nonspecific abnormal finding Cervicalgia Acquired hypothyroidism- Primary Unspecified hypothyroidism Migraine without aura and without status migrainosus, not intractable Migraine without aura, without mention of intractable migraine without mention of status migrainosus Sjogren's disease (HCC) Sicca syndrome Bipolar I disorder, most recent episode depressed (HCC) Bipolar I disorder, most recent episode (or current) depressed, unspecified Iron deficiency anemia, unspecified iron deficiency anemia type Gastroesophageal reflux disease with esophagitis LAP-BAND surgery status Bariatric surgery status Acquired hypothyroidism- Primary Unspecified hypothyroidism Hypoparathyroidism, unspecified hypoparathyroidism type (HCC) LAP-BAND surgery status Bariatric surgery status Acquired hypothyroidism Unspecified hypothyroidism documented in this encounter [facility] note* Diagnosis Headache(784.0)- Primary Headache DIABETES MELLITUS ADULT ONSET Type II or unspecified type diabetes mellitus without mention of complication, not stated as uncontrolled HYPERTENSION BENIGN Essential hypertension, benign HYPERLIPIDEMIA Other and unspecified hyperlipidemia HYPOTHYROIDISM PRIMARY Unspecified hypothyroidism Abnormal finding Other nonspecific abnormal finding Cervicalgia Acquired hypothyroidism- Primary Unspecified hypothyroidism Migraine without aura and without status migrainosus, not intractable Migraine without aura, without mention of intractable migraine without mention of status migrainosus Sjogren's disease (HCC) Sicca syndrome Bipolar I disorder, most recent episode depressed (HCC) Bipolar I disorder, most recent episode (or current) depressed, unspecified Iron deficiency anemia, unspecified iron deficiency anemia type Gastroesophageal reflux disease with esophagitis LAP-BAND surgery status Bariatric surgery status Acquired hypothyroidism- Primary Unspecified hypothyroidism Hypoparathyroidism, unspecified hypoparathyroidism type (HCC) LAP-BAND surgery status Bariatric surgery status Encounter for screening mammogram for breast cancer documented in this encounter [facility] note* Diagnosis Headache(784.0)- Primary Headache DIABETES MELLITUS ADULT ONSET Type II or unspecified type diabetes mellitus without mention of complication, not stated as uncontrolled HYPERTENSION BENIGN Essential hypertension, benign HYPERLIPIDEMIA Other and unspecified hyperlipidemia HYPOTHYROIDISM PRIMARY Unspecified hypothyroidism Abnormal finding Other nonspecific abnormal finding Cervicalgia Acquired hypothyroidism- Primary Unspecified hypothyroidism Migraine without aura and without status migrainosus, not intractable Migraine without aura, without mention of intractable migraine without mention of status migrainosus Sjogren's disease (HCC) Sicca syndrome Bipolar I disorder, most recent episode depressed (HCC) Bipolar I disorder, most recent episode (or current) depressed, unspecified Iron deficiency anemia, unspecified iron deficiency anemia type Gastroesophageal reflux disease with esophagitis LAP-BAND surgery status Bariatric surgery status Acquired hypothyroidism- Primary Unspecified hypothyroidism Hypoparathyroidism, unspecified hypoparathyroidism type (HCC) LAP-BAND surgery status Bariatric surgery status Type 2 diabetes mellitus with unspecified complications ([facility])- Primary Class 2 obesity due to excess calories without serious comorbidity with body mass index (BMI) of 39.0 to 39.9 in adult Obstructive sleep apnea syndrome Obstructive sleep apnea (adult) (pediatric) Hyperlipidemia, unspecified hyperlipidemia type Essential hypertension Unspecified essential hypertension documented in this encounter [facility] note* Diagnosis Headache(784.0)- Primary Headache DIABETES MELLITUS ADULT ONSET Type II or unspecified type diabetes mellitus without mention of complication, not stated as uncontrolled HYPERTENSION BENIGN Essential hypertension, benign HYPERLIPIDEMIA Other and unspecified hyperlipidemia HYPOTHYROIDISM PRIMARY Unspecified hypothyroidism Abnormal finding Other nonspecific abnormal finding Cervicalgia Acquired hypothyroidism- Primary Unspecified hypothyroidism Migraine without aura and without status migrainosus, not intractable Migraine without aura, without mention of intractable migraine without mention of status migrainosus Sjogren's disease (HCC) Sicca syndrome Bipolar I disorder, most recent episode depressed (HCC) Bipolar I disorder, most recent episode (or current) depressed, unspecified Iron deficiency anemia, unspecified iron deficiency anemia type Gastroesophageal reflux disease with esophagitis LAP-BAND surgery status Bariatric surgery status Acquired hypothyroidism- Primary Unspecified hypothyroidism Hypoparathyroidism, unspecified hypoparathyroidism type (HCC) LAP-BAND surgery status Bariatric surgery status Paresthesia of both feet- [facility] Diagnosis Headache(784.0)- Primary Headache DIABETES MELLITUS ADULT ONSET Type II or unspecified type diabetes mellitus without mention of complication, not stated as uncontrolled HYPERTENSION BENIGN Essential hypertension, benign HYPERLIPIDEMIA Other and unspecified hyperlipidemia HYPOTHYROIDISM PRIMARY Unspecified hypothyroidism Abnormal finding Other nonspecific abnormal finding Cervicalgia Acquired hypothyroidism- Primary Unspecified hypothyroidism Migraine without aura and without status migrainosus, not intractable Migraine without aura, without mention of intractable migraine without mention of status migrainosus Sjogren's disease (HCC) Sicca syndrome Bipolar I disorder, most recent episode depressed (HCC) Bipolar I disorder, most recent episode (or current) depressed, unspecified Iron deficiency anemia, unspecified iron deficiency anemia type Gastroesophageal reflux disease with esophagitis LAP-BAND surgery status Bariatric surgery status Acquired hypothyroidism- Primary Unspecified hypothyroidism Hypoparathyroidism, unspecified hypoparathyroidism type (HCC) LAP-BAND surgery status Bariatric surgery status Paresthesia of both feet [facility] Diagnosis Headache(784.0)- Primary Headache DIABETES MELLITUS ADULT ONSET Type II or unspecified type diabetes mellitus without mention of complication, not stated as uncontrolled HYPERTENSION BENIGN Essential hypertension, benign HYPERLIPIDEMIA Other and unspecified hyperlipidemia HYPOTHYROIDISM PRIMARY Unspecified hypothyroidism Abnormal finding Other nonspecific abnormal finding Cervicalgia Acquired hypothyroidism- Primary Unspecified hypothyroidism Migraine without aura and without status migrainosus, not intractable Migraine without aura, without mention of intractable migraine without mention of status migrainosus Sjogren's disease (HCC) Sicca syndrome Bipolar I disorder, most recent episode depressed (HCC) Bipolar I disorder, most recent episode (or current) depressed, unspecified Iron deficiency anemia, unspecified iron deficiency anemia type Gastroesophageal reflux disease with esophagitis LAP-BAND surgery status Bariatric surgery status Acquired hypothyroidism- Primary Unspecified hypothyroidism Hypoparathyroidism, unspecified hypoparathyroidism type (HCC) LAP-BAND surgery status Bariatric surgery status Type 2 diabetes mellitus with unspecified complications (HCC)- Primary Class 2 obesity due to excess calories without serious comorbidity with body mass index (BMI) of 39.0 to 39.9 in adult Obstructive sleep apnea syndrome Obstructive sleep apnea (adult) (pediatric) documented in this encounter [facility] note* Diagnosis Headache(784.0)- Primary Headache DIABETES MELLITUS ADULT ONSET Type II or unspecified type diabetes mellitus without mention of complication, not stated as uncontrolled HYPERTENSION BENIGN Essential hypertension, benign HYPERLIPIDEMIA Other and unspecified hyperlipidemia HYPOTHYROIDISM PRIMARY Unspecified hypothyroidism Abnormal finding Other nonspecific abnormal finding Cervicalgia Acquired hypothyroidism- Primary Unspecified hypothyroidism Migraine without aura and without status migrainosus, not intractable Migraine without aura, without mention of intractable migraine without mention of status migrainosus Sjogren's disease (HCC) Sicca syndrome Bipolar I disorder, most recent episode depressed (HCC) Bipolar I disorder, most recent episode (or current) depressed, unspecified Iron deficiency anemia, unspecified iron deficiency anemia type Gastroesophageal reflux disease with esophagitis LAP-BAND surgery status Bariatric surgery status Acquired hypothyroidism- Primary Unspecified hypothyroidism Hypoparathyroidism, unspecified hypoparathyroidism type (HCC) LAP-BAND surgery status Bariatric surgery status Lower abdominal pain- Primary Abdominal pain, other specified site Right lower quadrant abdominal pain Abdominal pain, right lower quadrant Urinary tract infection without hematuria, site unspecified [facility] Diagnosis Headache(784.0)- Primary Headache DIABETES MELLITUS ADULT ONSET Type II or unspecified type diabetes mellitus without mention of complication, not stated as uncontrolled HYPERTENSION BENIGN Essential hypertension, benign HYPERLIPIDEMIA Other and unspecified hyperlipidemia HYPOTHYROIDISM PRIMARY Unspecified hypothyroidism Abnormal finding Other nonspecific abnormal finding Cervicalgia Acquired hypothyroidism- Primary Unspecified hypothyroidism Migraine without aura and without status migrainosus, not intractable Migraine without aura, without mention of intractable migraine without mention of status migrainosus Sjogren's disease (HCC) Sicca syndrome Bipolar I disorder, most recent episode depressed (HCC) Bipolar I disorder, most recent episode (or current) depressed, unspecified Iron deficiency anemia, unspecified iron deficiency anemia type Gastroesophageal reflux disease with esophagitis LAP-BAND surgery status Bariatric surgery status Acquired hypothyroidism- Primary Unspecified hypothyroidism Hypoparathyroidism, unspecified hypoparathyroidism type (HCC) LAP-BAND surgery status Bariatric surgery status Right lower quadrant abdominal pain Abdominal pain, right lower quadrant documented in this encounter [facility] note* Diagnosis Headache(784.0)- Primary Headache DIABETES MELLITUS ADULT ONSET Type II or unspecified type diabetes mellitus without mention of complication, not stated as uncontrolled HYPERTENSION BENIGN Essential hypertension, benign HYPERLIPIDEMIA Other and unspecified hyperlipidemia HYPOTHYROIDISM PRIMARY Unspecified hypothyroidism Abnormal finding Other nonspecific abnormal finding Cervicalgia Acquired hypothyroidism- Primary Unspecified hypothyroidism Migraine without aura and without status migrainosus, not intractable Migraine without aura, without mention of intractable migraine without mention of status migrainosus Sjogren's disease (HCC) Sicca syndrome Bipolar I disorder, most recent episode depressed (HCC) Bipolar I disorder, most recent episode (or current) depressed, unspecified Iron deficiency anemia, unspecified iron deficiency anemia type Gastroesophageal reflux disease with esophagitis LAP-BAND surgery status Bariatric surgery status Acquired hypothyroidism- Primary Unspecified hypothyroidism Hypoparathyroidism, unspecified hypoparathyroidism type (HCC) LAP-BAND surgery status Bariatric surgery status Uterine cyst- Primary Other specified disorders of uterus, not elsewhere classified Abnormal CT scan Other nonspecific (abnormal) findings on radiological and other examinations of body structure documented in this encounter [facility] note* Diagnosis Headache(784.0)- Primary Headache DIABETES MELLITUS ADULT ONSET Type II or unspecified type diabetes mellitus without mention of complication, not stated as uncontrolled HYPERTENSION BENIGN Essential hypertension, benign HYPERLIPIDEMIA Other and unspecified hyperlipidemia HYPOTHYROIDISM PRIMARY Unspecified hypothyroidism Abnormal finding Other nonspecific abnormal finding Cervicalgia Acquired hypothyroidism- Primary Unspecified hypothyroidism Migraine without aura and without status migrainosus, not intractable Migraine without aura, without mention of intractable migraine without mention of status migrainosus Sjogren's disease (HCC) Sicca syndrome Bipolar I disorder, most recent episode depressed (HCC) Bipolar I disorder, most recent episode (or current) depressed, unspecified Iron deficiency anemia, unspecified iron deficiency anemia type Gastroesophageal reflux disease with esophagitis LAP-BAND surgery status Bariatric surgery status Acquired hypothyroidism- Primary Unspecified hypothyroidism Hypoparathyroidism, unspecified hypoparathyroidism type (HCC) LAP-BAND surgery status Bariatric surgery status Uterine cyst Other specified disorders of uterus, not elsewhere classified Abnormal CT scan Other nonspecific (abnormal) findings on radiological and other examinations of body structure documented in this encounter [facility] note* Diagnosis Headache(784.0)- Primary Headache DIABETES MELLITUS ADULT ONSET Type II or unspecified type diabetes mellitus without mention of complication, not stated as uncontrolled HYPERTENSION BENIGN Essential hypertension, benign HYPERLIPIDEMIA Other and unspecified hyperlipidemia HYPOTHYROIDISM PRIMARY Unspecified hypothyroidism Abnormal finding Other nonspecific abnormal finding Cervicalgia Acquired hypothyroidism- Primary Unspecified hypothyroidism Migraine without aura and without status migrainosus, not intractable Migraine without aura, without mention of intractable migraine without mention of status migrainosus Sjogren's disease (HCC) Sicca syndrome Bipolar I disorder, most recent episode depressed (HCC) Bipolar I disorder, most recent episode (or current) depressed, unspecified Iron deficiency anemia, unspecified iron deficiency anemia type Gastroesophageal reflux disease with esophagitis LAP-BAND surgery status Bariatric surgery status Acquired hypothyroidism- Primary Unspecified hypothyroidism Hypoparathyroidism, unspecified hypoparathyroidism type (HCC) LAP-BAND surgery status Bariatric surgery status Pelvic pain in female- Primary Unspecified symptom associated with female genital organs Vaginal discharge Leukorrhea, not specified as infective Thickened endometrium Nonspecific (abnormal) findings on radiological and other examination of genitourinary organs Screening for HPV (human papillomavirus) Special screening examination for human papillomavirus (HPV) Screening for cervical cancer Screening for malignant neoplasm of the cervix documented in this encounter [facility] note* Diagnosis Headache(784.0)- Primary Headache DIABETES MELLITUS ADULT ONSET Type II or unspecified type diabetes mellitus without mention of complication, not stated as uncontrolled HYPERTENSION BENIGN Essential hypertension, benign HYPERLIPIDEMIA Other and unspecified hyperlipidemia HYPOTHYROIDISM PRIMARY Unspecified hypothyroidism Abnormal finding Other nonspecific abnormal finding Cervicalgia Acquired hypothyroidism- Primary Unspecified hypothyroidism Migraine without aura and without status migrainosus, not intractable Migraine without aura, without mention of intractable migraine without mention of status migrainosus Sjogren's disease (HCC) Sicca syndrome Bipolar I disorder, most recent episode depressed (HCC) Bipolar I disorder, most recent episode (or current) depressed, unspecified Iron deficiency anemia, unspecified iron deficiency anemia type Gastroesophageal reflux disease with esophagitis LAP-BAND surgery status Bariatric surgery status Acquired hypothyroidism- Primary Unspecified hypothyroidism Hypoparathyroidism, unspecified hypoparathyroidism type (HCC) LAP-BAND surgery status Bariatric surgery status Migraine without aura and without status migrainosus, not intractable Migraine without aura, without mention of intractable migraine without mention of status migrainosus documented in this encounter [facility] note* Diagnosis Headache(784.0)- Primary Headache DIABETES MELLITUS ADULT ONSET Type II or unspecified type diabetes mellitus without mention of complication, not stated as uncontrolled HYPERTENSION BENIGN Essential hypertension, benign HYPERLIPIDEMIA Other and unspecified hyperlipidemia HYPOTHYROIDISM PRIMARY Unspecified hypothyroidism Abnormal finding Other nonspecific abnormal finding Cervicalgia Acquired hypothyroidism- Primary Unspecified hypothyroidism Migraine without aura and without status migrainosus, not intractable Migraine without aura, without mention of intractable migraine without mention of status migrainosus Sjogren's disease (HCC) Sicca syndrome Bipolar I disorder, most recent episode depressed (HCC) Bipolar I disorder, most recent episode (or current) depressed, unspecified Iron deficiency anemia, unspecified iron deficiency anemia type Gastroesophageal reflux disease with esophagitis LAP-BAND surgery status Bariatric surgery status Acquired hypothyroidism- Primary Unspecified hypothyroidism Hypoparathyroidism, unspecified hypoparathyroidism type (HCC) LAP-BAND surgery status Bariatric surgery status Radiculopathy, lumbosacral region- Primary Thoracic or lumbosacral neuritis or radiculitis, unspecified Paresthesia of both feet Paresthesia of skin Disturbance of skin sensation documented in this encounter [facility] note* Diagnosis Headache(784.0)- Primary Headache DIABETES MELLITUS ADULT ONSET Type II or unspecified type diabetes mellitus without mention of complication, not stated as uncontrolled HYPERTENSION BENIGN Essential hypertension, benign HYPERLIPIDEMIA Other and unspecified hyperlipidemia HYPOTHYROIDISM PRIMARY Unspecified hypothyroidism Abnormal finding Other nonspecific abnormal finding Cervicalgia Acquired hypothyroidism- Primary Unspecified hypothyroidism Migraine without aura and without status migrainosus, not intractable Migraine without aura, without mention of intractable migraine without mention of status migrainosus Sjogren's disease (HCC) Sicca syndrome Bipolar I disorder, most recent episode depressed (HCC) Bipolar I disorder, most recent episode (or current) depressed, unspecified Iron deficiency anemia, unspecified iron deficiency anemia type Gastroesophageal reflux disease with esophagitis LAP-BAND surgery status Bariatric surgery status Acquired hypothyroidism- Primary Unspecified hypothyroidism Hypoparathyroidism, unspecified hypoparathyroidism type (HCC) LAP-BAND surgery status Bariatric surgery status Type 2 diabetes mellitus (HCC) Type II or unspecified type diabetes mellitus without mention of complication, not stated as uncontrolled Hyperlipidemia, unspecified hyperlipidemia type Acquired hypothyroidism Unspecified hypothyroidism documented in this encounter [facility] note* Diagnosis Headache(784.0)- Primary Headache DIABETES MELLITUS ADULT ONSET Type II or unspecified type diabetes mellitus without mention of complication, not stated as uncontrolled HYPERTENSION BENIGN Essential hypertension, benign HYPERLIPIDEMIA Other and unspecified hyperlipidemia HYPOTHYROIDISM PRIMARY Unspecified hypothyroidism Abnormal finding Other nonspecific abnormal finding Cervicalgia Acquired hypothyroidism- Primary Unspecified hypothyroidism Migraine without aura and without status migrainosus, not intractable Migraine without aura, without mention of intractable migraine without mention of status migrainosus Sjogren's disease (HCC) Sicca syndrome Bipolar I disorder, most recent episode depressed (HCC) Bipolar I disorder, most recent episode (or current) depressed, unspecified Iron deficiency anemia, unspecified iron deficiency anemia type Gastroesophageal reflux disease with esophagitis LAP-BAND surgery status Bariatric surgery status Acquired hypothyroidism- Primary Unspecified hypothyroidism Hypoparathyroidism, unspecified hypoparathyroidism type (HCC) LAP-BAND surgery status Bariatric surgery status Lower abdominal pain- Primary Abdominal pain, other specified site Hematuria, unspecified type documented in this encounter [facility] note* Diagnosis Headache(784.0)- Primary Headache DIABETES MELLITUS ADULT ONSET Type II or unspecified type diabetes mellitus without mention of complication, not stated as uncontrolled HYPERTENSION BENIGN Essential hypertension, benign HYPERLIPIDEMIA Other and unspecified hyperlipidemia HYPOTHYROIDISM PRIMARY Unspecified hypothyroidism Abnormal finding Other nonspecific abnormal finding Cervicalgia Acquired hypothyroidism- Primary Unspecified hypothyroidism Migraine without aura and without status migrainosus, not intractable Migraine without aura, without mention of intractable migraine without mention of status migrainosus Sjogren's disease (HCC) Sicca syndrome Bipolar I disorder, most recent episode depressed (HCC) Bipolar I disorder, most recent episode (or current) depressed, unspecified Iron deficiency anemia, unspecified iron deficiency anemia type Gastroesophageal reflux disease with esophagitis LAP-BAND surgery status Bariatric surgery status Acquired hypothyroidism- Primary Unspecified hypothyroidism Hypoparathyroidism, unspecified hypoparathyroidism type (HCC) LAP-BAND surgery status Bariatric surgery status Type 2 diabetes mellitus with diabetic microalbuminuria, without long-term current use of insulin (HCC)- Primary Acquired hypothyroidism Unspecified hypothyroidism Class 2 obesity due to excess calories without serious comorbidity with body mass index (BMI) of 39.0 to 39.9 in adult Obstructive sleep apnea syndrome Obstructive sleep apnea (adult) (pediatric) Hypokalemia Hypopotassemia [facility] Diagnosis Headache(784.0)- Primary Headache DIABETES MELLITUS ADULT ONSET Type II or unspecified type diabetes mellitus without mention of complication, not stated as uncontrolled HYPERTENSION BENIGN Essential hypertension, benign HYPERLIPIDEMIA Other and unspecified hyperlipidemia HYPOTHYROIDISM PRIMARY Unspecified hypothyroidism Abnormal finding Other nonspecific abnormal finding Cervicalgia Acquired hypothyroidism- Primary Unspecified hypothyroidism Migraine without aura and without status migrainosus, not intractable Migraine without aura, without mention of intractable migraine without mention of status migrainosus Sjogren's disease (HCC) Sicca syndrome Bipolar I disorder, most recent episode depressed (HCC) Bipolar I disorder, most recent episode (or current) depressed, unspecified Iron deficiency anemia, unspecified iron deficiency anemia type Gastroesophageal reflux disease with esophagitis LAP-BAND surgery status Bariatric surgery status Acquired hypothyroidism- Primary Unspecified hypothyroidism Hypoparathyroidism, unspecified hypoparathyroidism type (HCC) LAP-BAND surgery status Bariatric surgery status Fluid in endometrial cavity- Primary Other specified disorders of uterus, not elsewhere classified Thickened endometrium Nonspecific (abnormal) findings on radiological and other examination of genitourinary organs Pelvic pain in female Unspecified symptom associated with female genital organs Family history of uterine cancer Family history of malignant neoplasm of genital organ, other Vaginal atrophy Postmenopausal atrophic vaginitis documented in this encounter [facility] note* Diagnosis Headache(784.0)- Primary Headache DIABETES MELLITUS ADULT ONSET Type II or unspecified type diabetes mellitus without mention of complication, not stated as uncontrolled HYPERTENSION BENIGN Essential hypertension, benign HYPERLIPIDEMIA Other and unspecified hyperlipidemia HYPOTHYROIDISM PRIMARY Unspecified hypothyroidism Abnormal finding Other nonspecific abnormal finding Cervicalgia Acquired hypothyroidism- Primary Unspecified hypothyroidism Migraine without aura and without status migrainosus, not intractable Migraine without aura, without mention of intractable migraine without mention of status migrainosus Sjogren's disease (HCC) Sicca syndrome Bipolar I disorder, most recent episode depressed (HCC) Bipolar I disorder, most recent episode (or current) depressed, unspecified Iron deficiency anemia, unspecified iron deficiency anemia type Gastroesophageal reflux disease with esophagitis LAP-BAND surgery status Bariatric surgery status Acquired hypothyroidism- Primary Unspecified hypothyroidism Hypoparathyroidism, unspecified hypoparathyroidism type (HCC) LAP-BAND surgery status Bariatric surgery status Paresthesia of both feet- Primary Neuropathy Mononeuritis of unspecified site documented in this encounter [facility] note* Diagnosis Headache(784.0)- Primary Headache DIABETES MELLITUS ADULT ONSET Type II or unspecified type diabetes mellitus without mention of complication, not stated as uncontrolled HYPERTENSION BENIGN Essential hypertension, benign HYPERLIPIDEMIA Other and unspecified hyperlipidemia HYPOTHYROIDISM PRIMARY Unspecified hypothyroidism Abnormal finding Other nonspecific abnormal finding Cervicalgia Acquired hypothyroidism- Primary Unspecified hypothyroidism Migraine without aura and without status migrainosus, not intractable Migraine without aura, without mention of intractable migraine without mention of status migrainosus Sjogren's disease (HCC) Sicca syndrome Bipolar I disorder, most recent episode depressed (HCC) Bipolar I disorder, most recent episode (or current) depressed, unspecified Iron deficiency anemia, unspecified iron deficiency anemia type Gastroesophageal reflux disease with esophagitis LAP-BAND surgery status Bariatric surgery status Acquired hypothyroidism- Primary Unspecified hypothyroidism Hypoparathyroidism, unspecified hypoparathyroidism type (HCC) LAP-BAND surgery status Bariatric surgery status Preop exam for internal medicine- Primary Other specified pre-operative examination Essential hypertension Unspecified essential hypertension Acquired hypothyroidism Unspecified hypothyroidism Obstructive sleep apnea syndrome Obstructive sleep apnea (adult) (pediatric) Migraine without aura and without status migrainosus, not intractable Migraine without aura, without mention of intractable migraine without mention of status migrainosus Type 2 diabetes mellitus with unspecified complications ([facility]) documented in this encounter [facility] note* Diagnosis Headache(784.0)- Primary Headache DIABETES MELLITUS ADULT ONSET Type II or unspecified type diabetes mellitus without mention of complication, not stated as uncontrolled HYPERTENSION BENIGN Essential hypertension, benign HYPERLIPIDEMIA Other and unspecified hyperlipidemia HYPOTHYROIDISM PRIMARY Unspecified hypothyroidism Abnormal finding Other nonspecific abnormal finding Cervicalgia Acquired hypothyroidism- Primary Unspecified hypothyroidism Migraine without aura and without status migrainosus, not intractable Migraine without aura, without mention of intractable migraine without mention of status migrainosus Sjogren's disease (HCC) Sicca syndrome Bipolar I disorder, most recent episode depressed (HCC) Bipolar I disorder, most recent episode (or current) depressed, unspecified Iron deficiency anemia, unspecified iron deficiency anemia type Gastroesophageal reflux disease with esophagitis LAP-BAND surgery status Bariatric surgery status Acquired hypothyroidism- Primary Unspecified hypothyroidism Hypoparathyroidism, unspecified hypoparathyroidism type (HCC) LAP-BAND surgery status Bariatric surgery status Hypokalemia- Primary Hypopotassemia [facility]* Diagnosis Headache(784.0)- Primary Headache DIABETES MELLITUS ADULT ONSET Type II or unspecified type diabetes mellitus without mention of complication, not stated as uncontrolled HYPERTENSION BENIGN Essential hypertension, benign HYPERLIPIDEMIA Other and unspecified hyperlipidemia HYPOTHYROIDISM PRIMARY Unspecified hypothyroidism Abnormal finding Other nonspecific abnormal finding Cervicalgia Acquired hypothyroidism- Primary Unspecified hypothyroidism Migraine without aura and without status migrainosus, not intractable Migraine without aura, without mention of intractable migraine without mention of status migrainosus Sjogren's disease (HCC) Sicca syndrome Bipolar I disorder, most recent episode depressed (HCC) Bipolar I disorder, most recent episode (or current) depressed, unspecified Iron deficiency anemia, unspecified iron deficiency anemia type Gastroesophageal reflux disease with esophagitis LAP-BAND surgery status Bariatric surgery status Acquired hypothyroidism- Primary Unspecified hypothyroidism Hypoparathyroidism, unspecified hypoparathyroidism type (HCC) LAP-BAND surgery status Bariatric surgery status Fluid in endometrial cavity- Primary Other specified disorders of uterus, not elsewhere classified Visit for pre-operative examination Preoperative examination, unspecified documented in this encounter [facility] note* Diagnosis Headache(784.0)- Primary Headache DIABETES MELLITUS ADULT ONSET Type II or unspecified type diabetes mellitus without mention of complication, not stated as uncontrolled HYPERTENSION BENIGN Essential hypertension, benign HYPERLIPIDEMIA Other and unspecified hyperlipidemia HYPOTHYROIDISM PRIMARY Unspecified hypothyroidism Abnormal finding Other nonspecific abnormal finding Cervicalgia Acquired hypothyroidism- Primary Unspecified hypothyroidism Migraine without aura and without status migrainosus, not intractable Migraine without aura, without mention of intractable migraine without mention of status migrainosus Sjogren's disease (HCC) Sicca syndrome Bipolar I disorder, most recent episode depressed (HCC) Bipolar I disorder, most recent episode (or current) depressed, unspecified Iron deficiency anemia, unspecified iron deficiency anemia type Gastroesophageal reflux disease with esophagitis LAP-BAND surgery status Bariatric surgery status Acquired hypothyroidism- Primary Unspecified hypothyroidism Hypoparathyroidism, unspecified hypoparathyroidism type (HCC) LAP-BAND surgery status Bariatric surgery status Dysuria- Primary Uterine leiomyoma, unspecified location documented in this encounter [facility] note* Diagnosis Headache(784.0)- Primary Headache DIABETES MELLITUS ADULT ONSET Type II or unspecified type diabetes mellitus without mention of complication, not stated as uncontrolled HYPERTENSION BENIGN Essential hypertension, benign HYPERLIPIDEMIA Other and unspecified hyperlipidemia HYPOTHYROIDISM PRIMARY Unspecified hypothyroidism Abnormal finding Other nonspecific abnormal finding Cervicalgia Acquired hypothyroidism- Primary Unspecified hypothyroidism Migraine without aura and without status migrainosus, not intractable Migraine without aura, without mention of intractable migraine without mention of status migrainosus Sjogren's disease (HCC) Sicca syndrome Bipolar I disorder, most recent episode depressed (HCC) Bipolar I disorder, most recent episode (or current) depressed, unspecified Iron deficiency anemia, unspecified iron deficiency anemia type Gastroesophageal reflux disease with esophagitis LAP-BAND surgery status Bariatric surgery status Acquired hypothyroidism- Primary Unspecified hypothyroidism Hypoparathyroidism, unspecified hypoparathyroidism type (HCC) LAP-BAND surgery status Bariatric surgery status Microscopic hematuria- Primary documented in this encounter [facility] note* Diagnosis Headache(784.0)- Primary Headache DIABETES MELLITUS ADULT ONSET Type II or unspecified type diabetes mellitus without mention of complication, not stated as uncontrolled HYPERTENSION BENIGN Essential hypertension, benign HYPERLIPIDEMIA Other and unspecified hyperlipidemia HYPOTHYROIDISM PRIMARY Unspecified hypothyroidism Abnormal finding Other nonspecific abnormal finding Cervicalgia Acquired hypothyroidism- Primary Unspecified hypothyroidism Migraine without aura and without status migrainosus, not intractable Migraine without aura, without mention of intractable migraine without mention of status migrainosus Sjogren's disease (HCC) Sicca syndrome Bipolar I disorder, most recent episode depressed (HCC) Bipolar I disorder, most recent episode (or current) depressed, unspecified Iron deficiency anemia, unspecified iron deficiency anemia type Gastroesophageal reflux disease with esophagitis LAP-BAND surgery status Bariatric surgery status Acquired hypothyroidism- Primary Unspecified hypothyroidism Hypoparathyroidism, unspecified hypoparathyroidism type (HCC) LAP-BAND surgery status Bariatric surgery status Medication management- Primary Encounter for long-term (current) use of other medications documented in this encounter [facility] note* Diagnosis Headache(784.0)- Primary Headache DIABETES MELLITUS ADULT ONSET Type II or unspecified type diabetes mellitus without mention of complication, not stated as uncontrolled HYPERTENSION BENIGN Essential hypertension, benign HYPERLIPIDEMIA Other and unspecified hyperlipidemia HYPOTHYROIDISM PRIMARY Unspecified hypothyroidism Abnormal finding Other nonspecific abnormal finding Cervicalgia Acquired hypothyroidism- Primary Unspecified hypothyroidism Migraine without aura and without status migrainosus, not intractable Migraine without aura, without mention of intractable migraine without mention of status migrainosus Sjogren's disease (HCC) Sicca syndrome Bipolar I disorder, most recent episode depressed (HCC) Bipolar I disorder, most recent episode (or current) depressed, unspecified Iron deficiency anemia, unspecified iron deficiency anemia type Gastroesophageal reflux disease with esophagitis LAP-BAND surgery status Bariatric surgery status Acquired hypothyroidism- Primary Unspecified hypothyroidism Hypoparathyroidism, unspecified hypoparathyroidism type (HCC) LAP-BAND surgery status Bariatric surgery status Essential hypertension- Primary Unspecified essential hypertension Hypokalemia Hypopotassemia Extremity edema Edema documented in this encounter [facility] note* Diagnosis Headache(784.0)- Primary Headache DIABETES MELLITUS ADULT ONSET Type II or unspecified type diabetes mellitus without mention of complication, not stated as uncontrolled HYPERTENSION BENIGN Essential hypertension, benign HYPERLIPIDEMIA Other and unspecified hyperlipidemia HYPOTHYROIDISM PRIMARY Unspecified hypothyroidism Abnormal finding Other nonspecific abnormal finding Cervicalgia Acquired hypothyroidism- Primary Unspecified hypothyroidism Migraine without aura and without status migrainosus, not intractable Migraine without aura, without mention of intractable migraine without mention of status migrainosus Sjogren's disease (HCC) Sicca syndrome Bipolar I disorder, most recent episode depressed (HCC) Bipolar I disorder, most recent episode (or current) depressed, unspecified Iron deficiency anemia, unspecified iron deficiency anemia type Gastroesophageal reflux disease with esophagitis LAP-BAND surgery status Bariatric surgery status Acquired hypothyroidism- Primary Unspecified hypothyroidism Hypoparathyroidism, unspecified hypoparathyroidism type (HCC) LAP-BAND surgery status Bariatric surgery status Post-operative state- Primary Other postprocedural status Vaginal atrophy Postmenopausal atrophic vaginitis documented in this encounter [facility] note* Diagnosis Headache(784.0)- Primary Headache DIABETES MELLITUS ADULT ONSET Type II or unspecified type diabetes mellitus without mention of complication, not stated as uncontrolled HYPERTENSION BENIGN Essential hypertension, benign HYPERLIPIDEMIA Other and unspecified hyperlipidemia HYPOTHYROIDISM PRIMARY Unspecified hypothyroidism Abnormal finding Other nonspecific abnormal finding Cervicalgia Acquired hypothyroidism- Primary Unspecified hypothyroidism Migraine without aura and without status migrainosus, not intractable Migraine without aura, without mention of intractable migraine without mention of status migrainosus Sjogren's disease (HCC) Sicca syndrome Bipolar I disorder, most recent episode depressed (HCC) Bipolar I disorder, most recent episode (or current) depressed, unspecified Iron deficiency anemia, unspecified iron deficiency anemia type Gastroesophageal reflux disease with esophagitis LAP-BAND surgery status Bariatric surgery status Acquired hypothyroidism- Primary Unspecified hypothyroidism Hypoparathyroidism, unspecified hypoparathyroidism type (HCC) LAP-BAND surgery status Bariatric surgery status Essential hypertension- Primary Unspecified essential hypertension Extremity edema Edema Hypokalemia Hypopotassemia Encounter for immunization Need for other specified prophylactic vaccination against single bacterial disease documented in this encounter [facility] Discharge instructions* Instructions* Joi Srivastava PA - [...] BI 2-VIEW BREAST INC Ana Brown MD [address] [place] [address] [facility] [place] [address] Referral ID Status Reason Start Date Expiration Date Visits Requested Visits Authorized [id number] Pending Review Auto-Generat ed Referral 08/13/2022 09/12/2023 1 1 [facility] for referral (narrative)* Diagnostic Procedure Only (Routine) - Pending Review Specialty Diagnoses / Procedures Referred By Raquel quesada Referred To Contact [facility] Diagnoses Encounter for screening mammogram for breast cancer Procedures ADALBERTO SCREENING SCREENING MAMMOGRAPHY BI 2-VIEW BREAST INC Ana Brown MD [address] [place] [address] [facility] [address] [place] [address] Referral ID Status Reason Start Date Expiration Date Visits Requested Visits Authorized [id number] Pending Review Auto-Generat ed Referral 07/21/2023 08/19/2024 1 1 [facility] for referral (narrative)* Diagnostic Procedure Only (Routine) - New Request Specialty Diagnoses / Procedures Referred By Raquel quesada Referred To Contact [facility] Diagnoses Encounter for screening mammogram for breast cancer Procedures ADALBERTO SCREENING SCREENING MAMMOGRAPHY BI 2-VIEW BREAST INC CAD Ana Bolaños MD [address] [place] [address] [facility] [address] [place] [address] Referral ID Status Reason Start Date Expiration Date Visits Requested Visits Authorized [id number] New Request Auto-Generat ed Referral 05/09/2024 06/08/2025 1 1 * Diagnostic Procedure Only (Routine) - Authorized Specialty Diagnoses / Procedures Referred By Raquel quesada Referred To Contact [facility] Diagnoses Encounter for screening mammogram for breast cancer Procedures ADALBERTO SCREENING W CHUCK SCREENING DIGITAL BREAST TOMOSYNTHESIS BI SCREENING MAMMOGRAPHY BI 2-VIEW BREAST INC CAD Ana Bolaños MD [address] [place] [address] [facility] [address] [place] [address] Referral ID Status Reason Start Date Expiration Date Visits Requested Visits Authorized [id number] Authorized Auto-Generat ed Referral 05/09/2024 06/08/2025 1 1 [facility] for referral (narrative)* Diagnostic Procedure Only (Routine) - New Request Specialty Diagnoses / Procedures Referred By Raquel quesada Referred To Contact [facility] Diagnoses Encounter for gynecological examination (general) (routine) without abnormal findings Encounter for screening mammogram for breast cancer Procedures ADALBERTO SCREENING W CHUCK SCREENING DIGITAL BREAST TOMOSYNTHESIS BI SCREENING MAMMOGRAPHY BI 2-VIEW BREAST INC CAD Katarina Guillory, LIZETH.ELECTRONIC CALIBRATION TECHNICIAN [address] [place] [address] [facility] [address] [place] [address] Referral ID Status Reason Start Date Expiration Date Visits Requested Visits Authorized [id number] New Request Auto-Generat ed Referral 10/05/2025 1 1 [facility] for visit Narrative* Diagnostic Procedure Only (Routine) - Closed Specialty Diagnoses / Procedures Referred By Contac t Referred To Contact [facility] Diagnoses Encounter for screening mammogram for breast cancer Procedures ADALBERTO SCREENING W CHUCK SCREENING DIGITAL BREAST TOMOSYNTHESIS BI SCREENING MAMMOGRAPHY BI 2-VIEW BREAST INC Ana Brown MD [address] [place] [address] Phone: tel: fax: [facility] [address] [place] [address] Referral ID Status Reason Start Date Expiration Date V isits Requested Visits Authorized [id number] Closed Auto-Generate d Referral 05/09/2024 06/08/2025 1 1 [facility] for visit Narrative* Diagnostic Procedure Only (Routine) - Closed Specialty Diagnoses / Procedures Referred By Contac t Referred To Contact XR IMAGING Diagnoses Paresthesia of both feet Procedures XR LUMBAR GENERAL 3V AP/LAT/L5-S1 RADEX SPINE LUMBOSACRAL 2/3 VIEWS Lucille Brandt, KENNEDI [address] [facility] [address] [place] [address] Phone: tel: fax: XR IMAGING [facility]95 Referral ID Status Reason Start Date Expiration Date V isits Requested Visits Authorized [id number] Closed Auto-Generate d Referral 01/22/2025 02/21/2026 1 1 [facility] for visit Narrative* MRI/CT (Urgent) - Closed Specialty Diagnoses / Procedures Referred By Contac t Referred To Contact CT IMAGING Diagnoses Right lower quadrant abdominal pain Procedures CT ABD/PEL W IVCON CT ABD & PELVIS W/CONTRAST Fior Alvarez APRN.CNP [address] [place] [address] Phone: tel: fax: [place] [phone] Referral ID Status Reason Start Date Expiration Date V isits Requested Visits Authorized [id number] Closed Auto-Generat ed Referral Patient Cleared - Admin/Chairm an/Director advise to proceed or did not respond 01/26/2025 09/12/2025 [facility] (Urgent) - Closed Specialty Diagnoses / Procedures Referred By Raquel t Referred To Contact CT IMAGING Diagnoses Right lower quadrant abdominal pain Procedures CT ABD/PEL W IVCON CT ABD & PELVIS W/CONTRAST Fior Alvarez, PENCIL MAKER.ELECTRONIC CALIBRATION TECHNICIAN [address] [facility] [place] [address] Phone: tel: fax: [place] [address] Referral ID Status Reason Start Date Expiration Date V isits Requested Visits Authorized [id number] Closed Auto-Generat ed Referral Patient Cleared - Admin/Chairm an/Director advise to proceed or did not respond 01/26/2025 09/12/2025 1 1 [facility] Advance Directives No Advanced Directives Records FoundDocuments on File Type Date Recorded Patient Jumpbasting Collar Baster Expl anation ACP-Advance Directive ACP-Power of Plastic Dolls Mold Filler Latest Code Status on File Code Status Date Activated Date Inactivated Comments Full Code 10/13/2019 7:10 AM 10/13/2019 12:13 PM Latest Code Status on File Code Status Date Activated Date Inactivated Comments Full Code 11/18/2021 10:58 AM Full Code 10/13/2019 7:10 AM 10/13/2019 12:13 PM Documents on File Type Date Recorded Patient Jumpbasting Collar Baster Expl anation Advance Directives and Living Will Power of Plastic Dolls Mold Filler Latest Code Status on File Code Status Date Activated Date Inactivated Comments Full Code 10/13/2019 7:10 AM Advance Directive Response Recorded Date/ Time Advance Directives No December 06, 2 015 8:14am Living Will No 2014 8:14am Power of Plastic Dolls Mold Filler No December 06 8:14am Documents on File Type Date Recorded Patient Jumpbasting Collar Baster Expl anation Advance Directive(s) 03/18/2016 12:26 PM Latest Code Status on File Code Status Date Activated Date Inactivated Comments Full Code 11/18/2021 10:58 AM 11/18/2021 5:45 PM Advance Directive Response Recorded Date/ Time Advance Directives No December 06, 2 015 7:14am Living Will No 2014 7:14am Power of Plastic Dolls Mold Filler No December 06 7:14am Latest Code Status on File Code Status [...] History Records FoundNo Family History Records Found Chief Complaint and Reason for Visit Chief Complaint SCREENING REMIGIO; CONF 12/01 Chief Complaint REMIGIO; CONF 12/01 Z78.899 REMIGIO; 01/09 CONF Chief Complaint Z78.899 REMIGIO; 01/09 CONF Chief Complaint E617 SCREENING Chief Complaint E617 SCREENING Hypokalemia Chief Complaint E617 SCREENING Hypokalemia 2 ORDERING DOCTORS/COPY TO PCP Reason for Referral Specialty Diagnoses / Procedures Referred By Contac t Referred To Contact Diagnoses Class 2 obesity due to excess calories without serious comorbidity with body mass index (BMI) of 39.0 to 39.9 in adult Jacquie Clarke, PENCIL MAKER.ELECTRONIC CALIBRATION TECHNICIAN [address] [place] [address] Referral ID Status Reason Start Date Expiration Date V isits Requested Visits Authorized [id number] Pending Review 1 1 Specialty Diagnoses / Procedures Referred By Contac t Referred To Contact Diagnoses Class 2 obesity due to excess calories without serious comorbidity with body mass index (BMI) of 39.0 to 39.9 in adult Fior Alvarez PENCIL MAKER.ELECTRONIC CALIBRATION TECHNICIAN [address] [place] [address] Referral ID Status Reason Start Date Expiration Date V isits Requested Visits Authorized [id number] Authorized 1 1 Specialty Diagnoses / Procedures Referred By Contac t Referred To Contact Diagnoses Class 2 obesity due to excess calories without serious comorbidity with body mass index (BMI) of 39.0 to 39.9 in adult Obstructive sleep apnea syndrome Hyperlipidemia, unspecified hyperlipidemia type Essential hypertension Ana Bolaños MD [address] [place] [address] Referral ID Status Reason Start Date Expiration Date Visits Re quested Visits Authorized [id number] Closed 1 1 Additional Source Comments Care Teams (unrecognized sec tion and content) Fur Dresser Relationship Specialty Start Date End Date Ana Bolaños MD [address] [facility] [place] [address] PCP - General Internal Medicine 08/24/19 Fur Dresser Relationship Specialty Start Date End Date Ana Bolaños MD [address] [facility] [place] [address] PCP - General Internal Medicine 08/24/19 Fur Dresser Relationship Specialty Start Date End Date Ana Bolaños MD [address] [facility] [place] [address] PCP - General Internal Medicine 08/24/19 Fur Dresser Relationship Specialty Start Date End Date Ana Bolaños MD [address] [facility] [place] [address] PCP - General Internal Medicine 08/24/19 Fur Dresser Relationship Specialty Start Date End Date Ana Bolaños MD [address] [facility] [place] [address] PCP - General Internal Medicine 08/24/19 Fur Dresser Relationship Specialty Start Date End Date Ana Bolaños MD [address] [place] [address] PCP - General Internal Medicine 06/25/16 Fur Dresser Relationship Specialty Start Date End Date Ana Bolaños MD [address] [place] [address] PCP - General Internal Medicine 06/25/16 Fur Dresser Relationship Specialty Start Date End Date Ana Bolaños MD [address] [facility] [place] [address] PCP - General Internal Medicine 08/24/19 Fur Dresser Relationship Specialty Start Date End Date Ana Bolaños MD [address] [place] [address] PCP - General Internal Medicine 06/25/16 Fur Dresser Relationship Specialty Start Date End Date Ana Bolaños MD [address] [facility] [place] [address] PCP - General Internal Medicine 08/24/19 Fur Dresser Relationship Specialty Start Date End Date Ana Bolaños MD [address] [facility] [place] [address] PCP - General Internal Medicine 06/25/16 Fur Dresser Relationship Specialty Start Date End Date Ana Bolaños MD [address] [facility] [place] [address] PCP - General Internal Medicine 06/25/16 Fur Dresser Relationship Specialty Start Date End Date Ana Bolaños MD [address] [facility] [place] [address] PCP - General Internal Medicine 06/25/16 Fur Dresser Relationship Specialty Start Date End Date Ana Bolaños MD [address] [facility] [place] [address] PCP - General Internal Medicine 06/25/16 Fur Dresser Relationship Specialty Start Date End Date Ana Bolaños MD [address] [facility] [place] [address] PCP - General Internal Medicine 08/24/19 Fur Dresser Relationship Specialty Start Date End Date Ana Bolaños MD [address] [facility] [place] [address] PCP - General Internal Medicine 06/25/16 Fur Dresser Relationship Specialty Start Date End Date Ana Bolaños MD [address] [facility] [place] [address] PCP - General Internal Medicine 06/25/16 Fur Dresser Relationship Specialty Start Date End Date Ana Bolaños MD [address] [place] [address] PCP - General Internal Medicine 06/25/16 Team Status: Active Member Role Status Dates Dr. Ana Bolaños MD Family Provider Active Dr. Ana Bolaños MD Primary Care Provider Active Team Status: Inactive Member Role Status Dates Dr. Ana Bolaños MD Primary Care Provider Active 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 MD Attending Provider, Referring Pro vider Active Team Status: Inactive Member Role Status Dates Dr. Ana Bolaños MD Primary Care Provider Active Dr. Angelia Valenzuela DO Attending Provider Active Team Status: Active Member Role Status Dates Dr. Ana Bolaños MD Primary Care Provider Active PHILL MOJICA Attending Provider, Referring Provi concepcion Active 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 MD Other Provider Active Team Status: Inactive Member Role Status Dates Dr. Ana Bolaños MD Primary Care Provider Active PHILL MOJICA Attending Provider, Referring Provi concepcion Active 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 MD Other Provider Active Team Status: Inactive Member Role Status Dates Dr. Ana Bolaños MD Primary Care Provider Active PHILL MOJICA Attending Provider Active Fur Dresser Relationship Specialty Start Date End Date Ana Bolaños MD [address] [place] [address] PCP - General Internal Medicine 06/25/16 Team Status: Inactive Member Role Status Dates Dr. Ana Bolaños MD Primary Care Provider Active EDILSON PENN MD Attending Provider, Referring Prov ider Active Dr. Gavin Moctezuma MD Other Provider Active Fur Dresser Relationship Specialty Start Date End Date Ana Bolaños MD [address] [place] [address] PCP - General 08/24/19 Gavin Moctezuma MD [address] [place] [address] Surgeon Bariatric Surgery 08/05/22 Garret Burt PA [address] [place], [place] [id number] Physician Unix Analyst Bariatrics 08/05/22 Fur Dresser Relationship Specialty Start Date End Date Ana Bolaños MD [address] [place] [address] PCP - General Internal Medicine 06/25/16 Fur Dresser Relationship Specialty Start Date End Date Ana Bolaños MD [address] [place] [address] PCP - General Internal Medicine 06/25/16 Fur Dresser Relationship Specialty Start Date End Date Ana Bolaños MD [address] [place] [address] PCP - General 08/24/19 Gavin Moctezuma MD [address] [place] [address] Surgeon Bariatric Surgery 08/05/22 Garret Burt PA [address] [place] [address] Physician Unix Analyst Bariatrics 08/05/22 Fur Dresser Relationship Specialty Start Date End Date Ana Bolaños MD [address] [place] [address] PCP - General 08/24/19 Gavin Moctezuma MD [address] [place] [address] Surgeon Bariatric Surgery 08/05/22 Garret Burt PA [address] [place] [address] Physician Unix Analyst Bariatrics 08/05/22 Fur Dresser Relationship Specialty Start Date End Date Ana Bolaños MD [address] [place] [address] PCP - General Internal Medicine 06/25/16 Fur Dresser Relationship Specialty Start Date End Date Ana Bolaños MD [address] [place] [address] PCP - General Internal Medicine 06/25/16 Fur Dresser Relationship Specialty Start Date End Date Ana Bolaños MD [address] [place] [address] PCP - General Internal Medicine 06/25/16 Fur Dresser Relationship Specialty Start Date End Date Ana Bolaños MD [address] [place] [address] PCP - General Internal Medicine 06/25/16 Fur Dresser Relationship Specialty Start Date End Date Ana Bolaños MD [address] [place], [place] [address] [phone] PCP - General 08/24/19 Gavin Moctezuma MD [address] [place] [address] [address] [place], [place] [id number] Surgeon Bariatric Surgery 08/05/22 Garret Burt PA [address] [place] [address] [address] [place] [address] Physician Unix Analyst Bariatrics 08/05/22 Fur Dresser Relationship Specialty Start Date End Date Ana Bolaños MD [address] [place] [address] PCP - General Internal Medicine 06/25/16 Fur Dresser Relationship Specialty Start Date End Date Ana Bolaños MD [address] [place] [address] PCP - General Internal Medicine 06/25/16 Fur Dresser Relationship Specialty Start Date End Date Ana Bolaños MD [address] [place] [address] PCP - General Internal Medicine 06/25/16 Fur Dresser Relationship Specialty Start Date End Date Ana Bolaños MD [address] [place] [address] PCP - General Internal Medicine 06/25/16 Fur Dresser Relationship Specialty Start Date End Date Ana Bolaños MD [address] [place] [address] PCP - General Internal Medicine 06/25/16 Fur Dresser Relationship Specialty Start Date End Date Ana Bolaños MD [address] [place] [address] PCP - General Internal Medicine 06/25/16 Fur Dresser Relationship Specialty Start Date End Date Ana Bolaños MD [address] [place] [address] PCP - General Internal Medicine 06/25/16 Fur Dresser Relationship Specialty Start Date End Date Ana Bolaños MD [address] [place] [address] PCP - General Internal Medicine 06/25/16 Fur Dresser Relationship Specialty Start Date End Date Ana Bolaños MD [address] [place] [address] PCP - General Internal Medicine 06/25/16 Fur Dresser Relationship Specialty Start Date End Date Ana Bolaños MD [address] [place] [address] PCP - General Internal Medicine 06/25/16 Fur Dresser Relationship Specialty Start Date End Date Ana Bolaños MD [address] [place] [address] PCP - General Internal Medicine 06/25/16 Fur Dresser Relationship Specialty Start Date End Date Ana Bolaños MD [address] [place] [address] PCP - General Internal Medicine 06/25/16 Fur Dresser Relationship Specialty Start Date End Date Ana Bolaños MD [address] [place] [address] PCP - General Internal Medicine 06/25/16 Fur Dresser Relationship Specialty Start Date End Date Ana Bolaños MD [address] [place] [address] PCP - General Internal Medicine 06/25/16 Fur Dresser Relationship Specialty Start Date End Date Ana Bolaños MD [address] [place] [address] PCP - General Internal Medicine 06/25/16 Fur Dresser Relationship Specialty Start Date End Date Ana Bolaños MD [address] [place] [address] PCP - General 08/24/19 Gavin Moctezuma MD [address] [place] [address] Surgeon Bariatric Surgery 08/05/22 Garret Burt PA [address] [place] [address] Physician Unix Analyst Bariatrics 08/05/22 Fur Dresser Relationship Specialty Start Date End Date Aan Bolaños MD [address] [place] [address] PCP - General 08/24/19 aGvin Moctezuma MD [address] [place] [address] Surgeon Bariatric Surgery 08/05/22 Garret Burt PA [address] [place] [address] Physician Unix Analyst Bariatrics 08/05/22 Fur Dresser Relationship Specialty Start Date End Date Ana Bolaños MD [address] [place] [address] PCP - General 08/24/19 Gavin Moctezuma MD [address] [place] [address] Surgeon Bariatric Surgery 08/05/22 Garret Burt PA [address] [place] [address] Physician Unix Analyst Bariatrics 08/05/22 Fur Dresser Relationship Specialty Start Date End Date Ana Bolaños MD [address] [place] [address] PCP - General Internal Medicine 06/25/16 Edilson Lu PA-C [address] [place] [address] Watch Engineer Family Medicine 08/20/24 Fior Alvarez APRN.CNP [address] [place] [address] Watch Engineer Internal Medicine 08/20/24 Angelique Bradford PA-C [address] [place] [address] Watch Engineer Family Medicine 08/20/24 Fur Dresser Relationship Specialty Start Date End Date Ana Bolaños MD [address] [place] [address] PCP - General Internal Medicine 06/25/16 Edilson Lu PA-C [address] [place] [address] Watch Engineer Family Medicine 08/20/24 Fior Alvarez APRN.ELECTRONIC CALIBRATION TECHNICIAN [address] [place] [address] Watch Engineer Internal Medicine 08/20/24 Angelique Bradford PA-C [address] [place] [address] Watch Engineer Family Medicine 08/20/24 Fur Dresser Relationship Specialty Start Date End Date Ana Bolaños MD [address] [place] [address] PCP - General Internal Medicine 06/25/16 Edilson Lu PA-C [address] [place] [address] Watch Engineer Family Medicine 08/20/24 Fior Alvarez APRN.ELECTRONIC CALIBRATION TECHNICIAN [address] [place] [address] Watch Engineer Internal Medicine 08/20/24 Angelique Bradford PA-C [address] [place] [address] Watch Engineer Family Medicine 08/20/24 Fur Dresser Relationship Specialty Start Date End Date Ana Bolaños MD [address] [place] [address] PCP - General Internal Medicine 06/25/16 Edilson Lu PA-C [address] [place] [address] Watch Engineer Family Medicine 08/20/24 Fior Alvarez APRN.ELECTRONIC CALIBRATION TECHNICIAN [address] [place] [address] Watch Engineer Internal Medicine 08/20/24 Angelique Bradford PA-C [address] [place] [address] Watch Engineer Family Medicine 08/20/24 Fur Dresser Relationship Specialty Start Date End Date Ana Bolaños MD [address] [place] [address] PCP - General Internal Medicine 06/25/16 Edilson Lu PA-C [address] [place] [address] Watch Engineer Family Medicine 08/20/24 Fior Alvarez, LIZETH.ELECTRONIC CALIBRATION TECHNICIAN [address] [place] [address] Watch Engineer Internal Medicine 08/20/24 Angelique Bradford PA-C [address] [place] [address] Watch Engineer Family Medicine 08/20/24 Fur Dresser Relationship Specialty Start Date End Date Ana Bolaños MD [address] [place] [address] PCP - General Internal Medicine 06/25/16 Edilson Lu PA-C [address] [place] [address] Watch Engineer Family Medicine 08/20/24 Fior Alvarez APRN.ELECTRONIC CALIBRATION TECHNICIAN [address] [place] [address] Watch Engineer Internal Medicine 08/20/24 Angelique Bradford PA-C [address] [place] [address] Watch Engineer Family Medicine 08/20/24 Fur Dresser Relationship Specialty Start Date End Date Ana Bolaños MD [address] [place] [address] PCP - General Internal Medicine 06/25/16 Fior Alvarez APRN.ELECTRONIC CALIBRATION TECHNICIAN [address] [place] [address] Watch Engineer Internal Medicine 08/20/24 Fur Dresser Relationship Specialty Start Date End Date Ana Bolaños MD [address] [place] [address] PCP - General Internal Medicine 06/25/16 Edilson Lu PA-C [address] [place] [address] Watch Engineer Family [facility] 08/20/24 12/03/24 Fior Alvarez APRN.ELECTRONIC CALIBRATION TECHNICIAN [address] [place] [address] Watch Engineer Internal Medicine 08/20/24 Angelique Bradford PA-C [address] [facility] [place] [address] Watch Engineer Family Medicine 08/20/24 12/03/24 Fur Dresser Relationship Specialty Start Date End Date Ana Bolaños MD [address] [facility] [place] [address] PCP - General Internal Medicine 06/25/16 Fior Alvarez APRN.ELECTRONIC CALIBRATION TECHNICIAN [address] [facility] [place] [address] Watch Engineer Internal Medicine 08/20/24 Fur Dresser Relationship Specialty Start Date End Date Ana Bolaños MD [address] [facility] [place] [address] PCP - General Internal Medicine 06/25/16 Fior Alvarez APRN.ELECTRONIC CALIBRATION TECHNICIAN [address] [facility] [place] [address] Watch Engineer Internal Medicine 08/20/24 Fur Dresser Relationship Specialty Start Date End Date Ana Bolaños MD [address] [facility] [place] [address] PCP - General Internal Medicine 06/25/16 Fior Alvarez, PENCIL MAKER.ELECTRONIC CALIBRATION TECHNICIAN [address] [facility] [place] [address] Watch Engineer Internal Medicine 08/20/24 Fur Dresser Relationship Specialty Start Date End Date Ana Bolaños MD [address] [facility] [place] [address] PCP - General Internal Medicine 06/25/16 Fior Alvarez, PENCIL MAKER.ELECTRONIC CALIBRATION TECHNICIAN [address] [facility] [place] [address] Watch Engineer Internal Medicine 08/20/24 Fur Dresser Relationship Specialty Start Date End Date Ana Bolaños MD [address] [place] [address] PCP - General Internal Medicine 06/25/16 Fior Alvarez PENCIL MAKER.ELECTRONIC CALIBRATION TECHNICIAN [address] [facility] [place] [address] Watch Engineer Internal Medicine 08/20/24 Fur Dresser Relationship Specialty Start Date End Date Ana Bolaños MD [address] [place] [address] PCP - General Internal Medicine 06/25/16 Fior Alvarez, PENCIL MAKER.ELECTRONIC CALIBRATION TECHNICIAN [address] [facility] [place] [address] Watch Engineer Internal Medicine 08/20/24 Fur Dresser Relationship Specialty Start Date End Date Ana Bolaños MD [address] [place] [address] PCP - General Internal Medicine 06/25/16 Fior Alvarez, PENCIL MAKER.ELECTRONIC CALIBRATION TECHNICIAN [address] [facility] [place] [address] Watch Engineer Internal Medicine 08/20/24 Fur Dresser Relationship Specialty Start Date End Date Ana Bolaños MD [address] [place] [address] PCP - General Internal Medicine 06/25/16 Fior Alvarez APRN.ELECTRONIC CALIBRATION TECHNICIAN [address] [place] [address] Watch Engineer Internal Medicine 08/20/24 Fur Dresser Relationship Specialty Start Date End Date Ana Bolaños MD [address] [place] [address] PCP - General Internal Medicine 06/25/16 Fior Alvarez APRN.ELECTRONIC CALIBRATION TECHNICIAN [address] [facility] [place] [place] [address] Watch Engineer Internal Medicine 08/20/24 Fur Dresser Relationship Specialty Start Date End Date Ana Bolaños MD [address] [facility] [place] [address] PCP - General Internal Medicine 06/25/16 Fior Alvarez APRN.ELECTRONIC CALIBRATION TECHNICIAN [address] [facility] [place] [place] [address] Watch Engineer Internal Medicine 08/20/24 Fur Dresser Relationship Specialty Start Date End Date Ana Bolaños MD [address] [place] [address] PCP - General Internal Medicine 06/25/16 Fior Alvarez APRN.ELECTRONIC CALIBRATION TECHNICIAN [address] [facility] [place] [address] Watch Engineer Internal Medicine 08/20/24 Fur Dresser Relationship Specialty Start Date End Date Ana Bolaños MD [address] [place] [address] PCP - General Internal Medicine 06/25/16 Fior Alvarez APRN.ELECTRONIC CALIBRATION TECHNICIAN [address] [facility] [place] [address] Watch Engineer Internal Medicine 08/20/24 Fur Dresser Relationship Specialty Start Date End Date Ana Bolaños MD [address] [place] [address] PCP - General Internal Medicine 06/25/16 Fior Alvarez APRN.ELECTRONIC CALIBRATION TECHNICIAN [address] [place] [address] Watch Engineer Internal Medicine 08/20/24 Fur Dresser Relationship Specialty Start Date End Date Ana Bolaños MD [address] [place] [address] PCP - General Internal Medicine 06/25/16 Fior Alvarez, PENCIL MAKER.ELECTRONIC CALIBRATION TECHNICIAN [address] [place] [address] Watch Engineer Internal Medicine 08/20/24 Fur Dresser Relationship Specialty Start Date End Date Ana Bolaños MD [address] [place] [address] PCP - General Internal Medicine 06/25/16 Fior Alvarez PENCIL MAKER.ELECTRONIC CALIBRATION TECHNICIAN [address] [place] [address] Watch Engineer Internal Medicine 08/20/24 Fur Dresser Relationship Specialty Start Date End Date Ana Bolaños MD [address] [place] [address] PCP - General Internal Medicine 06/25/16 Fior Alvarez PENCIL MAKER.ELECTRONIC CALIBRATION TECHNICIAN [address] [place] [address] Watch Engineer Internal Medicine 08/20/24 Fur Dresser Relationship Specialty Start Date End Date Ana Bolaños MD [address] [place] [address] PCP - General Internal Medicine 06/25/16 Fior Alvarez APRN.ELECTRONIC CALIBRATION TECHNICIAN [address] [place] [address] Watch Engineer Internal Medicine 08/20/24 Fur Dresser Relationship Specialty Start Date End Date Ana Bolaños MD [address] [place] [address] PCP - General Internal Medicine 06/25/16 Fior Alvarez, PENCIL MAKER.ELECTRONIC CALIBRATION TECHNICIAN [address] [place] [address] Watch Engineer Internal Medicine 08/20/24 Fur Dresser Relationship Specialty Start Date End Date Ana Bolaños MD [address] [place] [address] PCP - General Internal Medicine 06/25/16 Fior Alvarez, PENCIL MAKER.ELECTRONIC CALIBRATION TECHNICIAN [address] [place] [address] Watch Engineer Internal Medicine 08/20/24 Fur Dresser Relationship Specialty Start Date End Date Ana Bolaños MD [address] [place] [address] PCP - General Internal Medicine 06/25/16 Fior Alvarez PENCIL MAKER.ELECTRONIC CALIBRATION TECHNICIAN [address] [place] [address] Watch Engineer Internal Medicine 08/20/24 Fur Dresser Relationship Specialty Start Date End Date Ana Bolaños MD [address] [facility] [place] [address] PCP - General Internal Medicine 06/25/16 Fior Alvarez APRN.ELECTRONIC CALIBRATION TECHNICIAN [address] [facility] [place] [address] Watch Engineer Internal Medicine 08/20/24 Fur Dresser Relationship Specialty Start Date End Date Ana Bolaños MD [address] [facility] [place] [address] PCP - General Internal Medicine 06/25/16 Fior Alvarez APRN.ELECTRONIC CALIBRATION TECHNICIAN [address] [facility] [place] [address] Watch Engineer Internal Medicine 08/20/24 Fur Dresser Relationship Specialty Start Date End Date Ana Bolaños MD [address] [place] [address] PCP - General Internal Medicine 06/25/16 Fior Alvarez APRN.ELECTRONIC CALIBRATION TECHNICIAN [address] [facility] [place] [address] Watch Engineer Internal Medicine 08/20/24 Fur Dresser Relationship Specialty Start Date End Date Ana Bolaños MD [address] [place] [address] PCP - General Internal Medicine 06/25/16 Fior Alvarez APRN.ELECTRONIC CALIBRATION TECHNICIAN [address] [facility] [place] [address] Watch Engineer Internal Medicine 08/20/24 Fur Dresser Relationship Specialty Start Date End Date Ana Bolaños MD [address] [facility], [place] [address] PCP - General Internal Medicine 06/25/16 Fior Alvarez APRN.ELECTRONIC CALIBRATION TECHNICIAN [address] [place], [place] [address] Watch Engineer Internal Medicine 08/20/24 Fur Dresser Relationship Specialty Start Date End Date Ana Bolaños MD [address] [place], [place] [address] PCP - General Internal Medicine 06/25/16 Fior Alvarez APRN.ELECTRONIC CALIBRATION TECHNICIAN [address] [place], [place] [address] Watch Engineer Internal Medicine 08/20/24 Fur Dresser Relationship Specialty Start Date End Date Ana Bolaños MD [address] [place], [place] [address] PCP - General Internal Medicine 06/25/16 Fior Alvarez APRN.ELECTRONIC CALIBRATION TECHNICIAN [address] [place] [address] Watch Engineer Internal Medicine 08/20/24 Ordered Prescriptions (unrec ognized section and content) Prescription Sig Dispensed Refills Start Date End oxyCODONE-acetaminophen (PERCOCET) 5-325 MG per tabletIndications:Postop erative abdominal pain Take 1 tablet by mouth every 6 hours as needed for Pain for up to 5 days. Intended supply: 5 days. Take lowest dose possible to manage pain 20 tablet 0 11/18/2021 11/23/2021 ondansetron (ZOFRAN) 4 MG tablet Take 1 tablet by mouth every 8 hours as needed for Nausea or Vomiting 10 tablet 0 11/18/2021 Scheduled Active and Recently Administ ered Medications (unrecognized section and content) Medication Order 11/16/2021 11/17/2021 11/18/2021 acetaminophen (TYLENOL) tablet 1,000 mg (COMPLETED) 1,000 mg, Oral, ONCE, On Wed11/18/21 at 1200, For 1 dose, Maximum dose of acetaminophen is 4000 mg from all sources in 24 hours., Pre-op (day of surgery), STAT 1141 (Given - Provid er: Andrzej Horton RN) ceFAZolin (ANCEF) 2000 mg in dextrose 4 % 100 mL IVPB (premix) (COMPLETED) 2,000 mg, IntraVENous, RAILWAY PATROL OFFICER TO O.R., 1 dose, On Wed11/18/21 at 1115, Administer within 1 hour prior to incision. Repeat in 3-4 hours after initial dose if still intra-op., Pre-op (day of surgery) 1310 (New Bag - Prov ider: Rubina Key RN)1340 (Stopped - Provider: Rubina Key RN) dexameth sod botc-uexil-pgkl (TAP) syringe SOSY 60 mL 60 mL, Transabdominal Plane, ONCE, On Wed11/18/21 at 1345, For 1 dose, PACU only 1345 (Due) famotidine (PEPCID) tablet 20 mg (COMPLETED) 20 mg, Oral, ONCE, On Wed11/18/21 at 1115, For 1 dose, Pre-op (day of surgery) 1141 (Given - Provid er: Andrzej Horton RN) heparin (porcine) injection 5,000 Units (COMPLETED) 5,000 Units, SubCUTAneous, ONCE, On Wed11/18/21 at 1115, For 1 dose, Pre-op (day of surgery) 1134 (Given - Provid er: Andrzej Horton RN) sodium chloride flush 0.9 % injection 5-40 mL 5-40 mL, IntraVENous, EVERY 12 HOURS SCHEDULED (2 times per day), First dose on Wed11/18/21 at 1115, For Line Patency: Peripheral IV = 5 [...] = 20 mL/lumen, Pre-op (day of surgery) 1115 (Due)2100 (Due) sodium chloride flush 0.9 % injection 5-40 mL 5-40 mL, IntraVENous, EVERY 12 HOURS SCHEDULED (2 times per day), First dose on Wed11/18/21 at 2100, For Line Patency: Peripheral IV = 5 [...] Central Line = 20 mL/lumen, PACU only 2100 (Due) Continuous Medication Order 11/16/2021 11/17/2021 11/18/2021 lactated [...] ized section and content) DATE CREATED AUTHOR 11/20/2021 [employer] DATE CREATED AUTHOR AUTHOR'S ORGANIZ ATION 04/05/2022 [employer] DATE CREATED AUTHOR AUTHOR'S ORGANIZ ATION 09/09/2023 [employer] [facility] DATE CREATED AUTHOR AUTHOR'S ORGANIZ ATION 01/27/2025 [facility] DATE CREATED AUTHOR AUTHOR'S ORGANIZ ATION 06/30/2025 [facility] DATE CREATED AUTHOR AUTHOR'S ORGANIZ ATION 07/10/2025 [facility] Goals (unrecognized section and content) Goals may be documented in a n alternate sectionGoals may be documented in an alternate sectionGoals may be documented in an alternate sectionGoals may be documented in an alternate sectionGoals may be documented in an alternate sectionGoals may be documented in an alternate sectionGoals may be documented in an alternate sectionGoals may be documented in an alternate sectionGoals may be documented in an alternate sectionGoals may be documented in an alternate sectionGoals may be documented in an alternate section Source Comments (unrecognize d section and content) In the event this informatio n is protected by the Federal Confidentiality of Alcohol and Drug Abuse Patient Records regulations: The Federal rules restrict any use of the information to criminally investigate or prosecute any alcohol or drug abuse patient.[facility] HospitalIn the event this information is protected by the Federal Confidentiality of Alcohol and Drug Abuse Patient Records regulations: The Federal rules restrict any use of the information to criminally investigate or prosecute any alcohol or drug abuse patient.[facility] HospitalIn the event this information is protected by the Federal Confidentiality of Alcohol and Drug Abuse Patient Records regulations: The Federal rules restrict any use of the information to criminally investigate or prosecute any alcohol or drug abuse patient.[facility] HospitalIn the event this information is protected by the Federal Confidentiality of Alcohol and Drug Abuse Patient Records regulations: The Federal rules restrict any use of the information to criminally investigate or prosecute any alcohol or drug abuse patient.[facility] HospitalIn the event this information is protected by the Federal Confidentiality of Alcohol and Drug Abuse Patient Records regulations: The Federal rules restrict any use of the information to criminally investigate or prosecute any alcohol or drug abuse patient.[facility] HospitalIn the event this information is protected by the Federal Confidentiality of Alcohol and Drug Abuse Patient Records regulations: The Federal rules restrict any use of the information to criminally investigate or prosecute any alcohol or drug abuse patient.[facility] HospitalIn the event this information is protected by the Federal Confidentiality of Alcohol and Drug Abuse Patient Records regulations: The Federal rules restrict any use of the information to criminally investigate or prosecute any alcohol or drug abuse patient.[facility] HospitalIn the event this information is protected by the Federal Confidentiality of Alcohol and Drug Abuse Patient Records regulations: The Federal rules restrict any use of the information to criminally investigate or prosecute any alcohol or drug abuse patient.[facility] HospitalIn the event this information is protected by the Federal Confidentiality of Alcohol and Drug Abuse Patient Records regulations: The Federal rules restrict any use of the information to criminally investigate or prosecute any alcohol or drug abuse patient.[facility] HospitalIn the event this information is protected by the Federal Confidentiality of Alcohol and Drug Abuse Patient Records regulations: The Federal rules restrict any use of the information to criminally investigate or prosecute any alcohol or drug abuse patient.[facility] HospitalIn the event this information is protected by the Federal Confidentiality of Alcohol and Drug Abuse Patient Records regulations: The Federal rules restrict any use of the information to criminally investigate or prosecute any alcohol or drug abuse patient.[facility] HospitalIn the event this information is protected by the Federal Confidentiality of Alcohol and Drug Abuse Patient Records regulations: The Federal rules restrict any use of the information to criminally investigate or prosecute any alcohol or drug abuse patient.[facility] HospitalIn the event this information is protected by the Federal Confidentiality of Alcohol and Drug Abuse Patient Records regulations: The Federal rules restrict any use of the information to criminally investigate or prosecute any alcohol or drug abuse patient.[facility] HospitalIn the event this information is protected by the Federal Confidentiality of Alcohol and Drug Abuse Patient Records regulations: The Federal rules restrict any use of the information to criminally investigate or prosecute any alcohol or drug abuse patient.[facility] HospitalIn the event this information is protected by the Federal Confidentiality of Alcohol and Drug Abuse Patient Records regulations: The Federal rules restrict any use of the information to criminally investigate or prosecute any alcohol or drug abuse patient.[facility] HospitalIn the event this information is protected by the Federal Confidentiality of Alcohol and Drug Abuse Patient Records regulations: The Federal rules restrict any use of the information to criminally investigate or prosecute any alcohol or drug abuse patient.[facility] HospitalIn the event this information is protected by the Federal Confidentiality of Alcohol and Drug Abuse Patient Records regulations: The Federal rules restrict any use of the information to criminally investigate or prosecute any alcohol or drug abuse patient.[facility] HospitalIn the event this information is protected by the Federal Confidentiality of Alcohol and Drug Abuse Patient Records regulations: The Federal rules restrict any use of the information to criminally investigate or prosecute any alcohol or drug abuse patient.[facility] HospitalIn the event this information is protected by the Federal Confidentiality of Alcohol and Drug Abuse Patient Records regulations: The Federal rules restrict any use of the information to criminally investigate or prosecute any alcohol or drug abuse patient.[facility] HospitalIn the event this information is protected by the Federal Confidentiality of Alcohol and Drug Abuse Patient Records regulations: The Federal rules restrict any use of the information to criminally investigate or prosecute any alcohol or drug abuse patient.[facility] HospitalIn the event this information is protected by the Federal Confidentiality of Alcohol and Drug Abuse Patient Records regulations: The Federal rules restrict any use of the information to criminally investigate or prosecute any alcohol or drug abuse patient.[facility] HospitalIn the event this information is protected by the Federal Confidentiality of Alcohol and Drug Abuse Patient Records regulations: The Federal rules restrict any use of the information to criminally investigate or prosecute any alcohol or drug abuse patient.[facility] HospitalIn the event this information is protected by the Federal Confidentiality of Alcohol and Drug Abuse Patient Records regulations: The Federal rules restrict any use of the information to criminally investigate or prosecute any alcohol or drug abuse patient.[facility] HospitalIn the event this information is protected by the Federal Confidentiality of Alcohol and Drug Abuse Patient Records regulations: The Federal rules restrict any use of the information to criminally investigate or prosecute any alcohol or drug abuse patient.[facility] HospitalIn the event this information is protected by the Federal Confidentiality of Alcohol and Drug Abuse Patient Records regulations: The Federal rules restrict any use of the information to criminally investigate or prosecute any alcohol or drug abuse patient.[facility] HospitalIn the event this information is protected by the Federal Confidentiality of Alcohol and Drug Abuse Patient Records regulations: The Federal rules restrict any use of the information to criminally investigate or prosecute any alcohol or drug abuse patient.[facility] HospitalIn the event this information is protected by the Federal Confidentiality of Alcohol and Drug Abuse Patient Records regulations: The Federal rules restrict any use of the information to criminally investigate or prosecute any alcohol or drug abuse patient.[facility] HospitalIn the event this information is protected by the Federal Confidentiality of Alcohol and Drug Abuse Patient Records regulations: The Federal rules restrict any use of the information to criminally investigate or prosecute any alcohol or drug abuse patient.[facility] HospitalIn the event this information is protected by the Federal Confidentiality of Alcohol and Drug Abuse Patient Records regulations: The Federal rules restrict any use of the information to criminally investigate or prosecute any alcohol or drug abuse patient.[facility] HospitalIn the event this information is protected by the Federal Confidentiality of Alcohol and Drug Abuse Patient Records regulations: The Federal rules restrict any use of the information to criminally investigate or prosecute any alcohol or drug abuse patient.[facility] HospitalIn the event this information is protected by the Federal Confidentiality of Alcohol and Drug Abuse Patient Records regulations: The Federal rules restrict any use of the information to criminally investigate or prosecute any alcohol or drug abuse patient.[facility] HospitalIn the event this information is protected by the Federal Confidentiality of Alcohol and Drug Abuse Patient Records regulations: The Federal rules restrict any use of the information to criminally investigate or prosecute any alcohol or drug abuse patient.[facility] HospitalIn the event this information is protected by the Federal Confidentiality of Alcohol and Drug Abuse Patient Records regulations: The Federal rules restrict any use of the information to criminally investigate or prosecute any alcohol or drug abuse patient.[facility] HospitalIn the event this information is protected by the Federal Confidentiality of Alcohol and Drug Abuse Patient Records regulations: The Federal rules restrict any use of the information to criminally investigate or prosecute any alcohol or drug abuse patient.[facility] HospitalIn the event this information is protected by the Federal Confidentiality of Alcohol and Drug Abuse Patient Records regulations: The Federal rules restrict any use of the information to criminally investigate or prosecute any alcohol or drug abuse patient.[facility] HospitalIn the event this information is protected by the Federal Confidentiality of Alcohol and Drug Abuse Patient Records regulations: The Federal rules restrict any use of the information to criminally investigate or prosecute any alcohol or drug abuse patient.[facility] HospitalIn the event this information is protected by the Federal Confidentiality of Alcohol and Drug Abuse Patient Records regulations: The Federal rules restrict any use of the information to criminally investigate or prosecute any alcohol or drug abuse patient.[facility] HospitalIn the event this information is protected by the Federal Confidentiality of Alcohol and Drug Abuse Patient Records regulations: The Federal rules restrict any use of the information to criminally investigate or prosecute any alcohol or drug abuse patient.[facility] HospitalIn the event this information is protected by the Federal Confidentiality of Alcohol and Drug Abuse Patient Records regulations: The Federal rules restrict any use of the information to criminally investigate or prosecute any alcohol or drug abuse patient.[facility] HospitalIn the event this information is protected by the Federal Confidentiality of Alcohol and Drug Abuse Patient Records regulations: The Federal rules restrict any use of the information to criminally investigate or prosecute any alcohol or drug abuse patient.[facility] HospitalIn the event this information is protected by the Federal Confidentiality of Alcohol and Drug Abuse Patient Records regulations: The Federal rules restrict any use of the information to criminally investigate or prosecute any alcohol or drug abuse patient.[facility] HospitalIn the event this information is protected by the Federal Confidentiality of Alcohol and Drug Abuse Patient Records regulations: The Federal rules restrict any use of the information to criminally investigate or prosecute any alcohol or drug abuse patient.[facility] HospitalIn the event this information is protected by the Federal Confidentiality of Alcohol and Drug Abuse Patient Records regulations: The Federal rules restrict any use of the information to criminally investigate or prosecute any alcohol or drug abuse patient.[facility] HospitalIn the event this information is protected by the Federal Confidentiality of Alcohol and Drug Abuse Patient Records regulations: The Federal rules restrict any use of the information to criminally investigate or prosecute any alcohol or drug abuse patient.[facility] HospitalIn the event this information is protected by the Federal Confidentiality of Alcohol and Drug Abuse Patient Records regulations: The Federal rules restrict any use of the information to criminally investigate or prosecute any alcohol or drug abuse patient.[facility] HospitalIn the event this information is protected by the Federal Confidentiality of Alcohol and Drug Abuse Patient Records regulations: The Federal rules restrict any use of the information to criminally investigate or prosecute any alcohol or drug abuse patient.[facility] HospitalIn the event this information is protected by the Federal Confidentiality of Alcohol and Drug Abuse Patient Records regulations: The Federal rules restrict any use of the information to criminally investigate or prosecute any alcohol or drug abuse patient.[facility] HospitalIn the event this information is protected by the Federal Confidentiality of Alcohol and Drug Abuse Patient Records regulations: The Federal rules restrict any use of the information to criminally investigate or prosecute any alcohol or drug abuse patient.[facility] HospitalIn the event this information is protected by the Federal Confidentiality of Alcohol and Drug Abuse Patient Records regulations: The Federal rules restrict any use of the information to criminally investigate or prosecute any alcohol or drug abuse patient.[facility] HospitalIn the event this information is protected by the Federal Confidentiality of Alcohol and Drug Abuse Patient Records regulations: The Federal rules restrict any use of the information to criminally investigate or prosecute any alcohol or drug abuse patient.[facility] HospitalIn the event this information is protected by the Federal Confidentiality of Alcohol and Drug Abuse Patient Records regulations: The Federal rules restrict any use of the information to criminally investigate or prosecute any alcohol or drug abuse patient.[facility] HospitalIn the event this information is protected by the Federal Confidentiality of Alcohol and Drug Abuse Patient Records regulations: The Federal rules restrict any use of the information to criminally investigate or prosecute any alcohol or drug abuse patient.[facility] HospitalIn the event this information is protected by the Federal Confidentiality of Alcohol and Drug Abuse Patient Records regulations: The Federal rules restrict any use of the information to criminally investigate or prosecute any alcohol or drug abuse patient.[facility] HospitalIn the event this information is protected by the Federal Confidentiality of Alcohol and Drug Abuse Patient Records regulations: The Federal rules restrict any use of the information to criminally investigate or prosecute any alcohol or drug abuse patient.[facility] HospitalIn the event this information is protected by the Federal Confidentiality of Alcohol and Drug Abuse Patient Records regulations: The Federal rules restrict any use of the information to criminally investigate or prosecute any alcohol or drug abuse patient.[facility] HospitalIn the event this information is protected by the Federal Confidentiality of Alcohol and Drug Abuse Patient Records regulations: The Federal rules restrict any use of the information to criminally investigate or prosecute any alcohol or drug abuse patient.[facility] HospitalIn the event this information is protected by the Federal Confidentiality of Alcohol and Drug Abuse Patient Records regulations: The Federal rules restrict any use of the information to criminally investigate or prosecute any alcohol or drug abuse patient.[facility] HospitalIn the event this information is protected by the Federal Confidentiality of Alcohol and Drug Abuse Patient Records regulations: The Federal rules restrict any use of the information to criminally investigate or prosecute any alcohol or drug abuse patient.[facility] HospitalIn the event this information is protected by the Federal Confidentiality of Alcohol and Drug Abuse Patient Records regulations: The Federal rules restrict any use of the information to criminally investigate or prosecute any alcohol or drug abuse patient.[facility] HospitalIn the event this information is protected by the Federal Confidentiality of Alcohol and Drug Abuse Patient Records regulations: The Federal rules restrict any use of the information to criminally investigate or prosecute any alcohol or drug abuse patient.[facility] HospitalIn the event this information is protected by the Federal Confidentiality of Alcohol and Drug Abuse Patient Records regulations: The Federal rules restrict any use of the information to criminally investigate or prosecute any alcohol or drug abuse patient.[facility] HospitalIn the event this information is protected by the Federal Confidentiality of Alcohol and Drug Abuse Patient Records regulations: The Federal rules restrict any use of the information to criminally investigate or prosecute any alcohol or drug abuse patient.[facility] HospitalIn the event this information is protected by the Federal Confidentiality of Alcohol and Drug Abuse Patient Records regulations: The Federal rules restrict any use of the information to criminally investigate or prosecute any alcohol or drug abuse patient.[facility] HospitalIn the event this information is protected by the Federal Confidentiality of Alcohol and Drug Abuse Patient Records regulations: The Federal rules restrict any use of the information to criminally investigate or prosecute any alcohol or drug abuse patient.[facility] HospitalIn the event this information is protected by the Federal Confidentiality of Alcohol and Drug Abuse Patient Records regulations: The Federal rules restrict any use of the information to criminally investigate or prosecute any alcohol or drug abuse patient.[facility] HospitalIn the event this information is protected by the Federal Confidentiality of Alcohol and Drug Abuse Patient Records regulations: The Federal rules restrict any use of the information to criminally investigate or prosecute any alcohol or drug abuse patient.[facility] HospitalIn the event this information is protected by the Federal Confidentiality of Alcohol and Drug Abuse Patient Records regulations: The Federal rules restrict any use of the information to criminally investigate or prosecute any alcohol or drug abuse patient.[facility] HospitalIn the event this information is protected by the Federal Confidentiality of Alcohol and Drug Abuse Patient Records regulations: The Federal rules restrict any use of the information to criminally investigate or prosecute any alcohol or drug abuse patient.[facility] HospitalIn the event this information is protected by the Federal Confidentiality of Alcohol and Drug Abuse Patient Records regulations: The Federal rules restrict any use of the information to criminally investigate or prosecute any alcohol or drug abuse patient.[facility] HospitalIn the event this information is protected by the Federal Confidentiality of Alcohol and Drug Abuse Patient Records regulations: The Federal rules restrict any use of the information to criminally investigate or prosecute any alcohol or drug abuse patient.[facility] HospitalIn the event this information is protected by the Federal Confidentiality of Alcohol and Drug Abuse Patient Records regulations: The Federal rules restrict any use of the information to criminally investigate or prosecute any alcohol or drug abuse patient.[facility] HospitalIn the event this information is protected by the Federal Confidentiality of Alcohol and Drug Abuse Patient Records regulations: The Federal rules restrict any use of the information to criminally investigate or prosecute any alcohol or drug abuse patient.[facility] HospitalIn the event this information is protected by the Federal Confidentiality of Alcohol and Drug Abuse Patient Records regulations: The Federal rules restrict any use of the information to criminally investigate or prosecute any alcohol or drug abuse patient.[facility] HospitalIn the event this information is protected by the Federal Confidentiality of Alcohol and Drug Abuse Patient Records regulations: The Federal rules restrict any use of the information to criminally investigate or prosecute any alcohol or drug abuse patient.[facility] HospitalIn the event this information is protected by the Federal Confidentiality of Alcohol and Drug Abuse Patient Records regulations: The Federal rules restrict any use of the information to criminally investigate or prosecute any alcohol or drug abuse patient.[facility] HospitalIn the event this information is protected by the Federal Confidentiality of Alcohol and Drug Abuse Patient Records regulations: The Federal rules restrict any use of the information to criminally investigate or prosecute any alcohol or drug abuse patient.[facility] HospitalIn the event this information is protected by the Federal Confidentiality of Alcohol and Drug Abuse Patient Records regulations: The Federal rules restrict any use of the information to criminally investigate or prosecute any alcohol or drug abuse patient.[facility] HospitalIn the event this information is protected by the Federal Confidentiality of Alcohol and Drug Abuse Patient Records regulations: The Federal rules restrict any use of the information to criminally investigate or prosecute any alcohol or drug abuse patient.[facility] HospitalIn the event this information is protected by the Federal Confidentiality of Alcohol and Drug Abuse Patient Records regulations: The Federal rules restrict any use of the information to criminally investigate or prosecute any alcohol or drug abuse patient.[facility] HospitalIn the event this information is protected by the Federal Confidentiality of Alcohol and Drug Abuse Patient Records regulations: The Federal rules restrict any use of the information to criminally investigate or prosecute any alcohol or drug abuse patient.[facility] HospitalIn the event this information is protected by the Federal Confidentiality of Alcohol and Drug Abuse Patient Records regulations: The Federal rules restrict any use of the information to criminally investigate or prosecute any alcohol or drug abuse patient.[facility] HospitalIn the event this information is protected by the Federal Confidentiality of Alcohol and Drug Abuse Patient Records regulations: The Federal rules restrict any use of the information to criminally investigate or prosecute any alcohol or drug abuse patient.[facility] HospitalIn the event this information is protected by the Federal Confidentiality of Alcohol and Drug Abuse Patient Records regulations: The Federal rules restrict any use of the information to criminally investigate or prosecute any alcohol or drug abuse patient.[facility] HospitalIn the event this information is protected by the Federal Confidentiality of Alcohol and Drug Abuse Patient Records regulations: The Federal rules restrict any use of the information to criminally investigate or prosecute any alcohol or drug abuse patient.[facility] HospitalIn the event this information is protected by the Federal Confidentiality of Alcohol and Drug Abuse Patient Records regulations: The Federal rules restrict any use of the information to criminally investigate or prosecute any alcohol or drug abuse patient.[facility] HospitalIn the event this information is protected by the Federal Confidentiality of Alcohol and Drug Abuse Patient Records regulations: The Federal rules restrict any use of the information to criminally investigate or prosecute any alcohol or drug abuse patient.[facility] HospitalIn the event this information is protected by the Federal Confidentiality of Alcohol and Drug Abuse Patient Records regulations: The Federal rules restrict any use of the information to criminally investigate or prosecute any alcohol or drug abuse patient.[facility] HospitalIn the event this information is protected by the Federal Confidentiality of Alcohol and Drug Abuse Patient Records regulations: The Federal rules restrict any use of the information to criminally investigate or prosecute any alcohol or drug abuse patient.[facility] HospitalIn the event this information is protected by the Federal Confidentiality of Alcohol and Drug Abuse Patient Records regulations: The Federal rules restrict any use of the information to criminally investigate or prosecute any alcohol or drug abuse patient.[facility] HospitalIn the event this information is protected by the Federal Confidentiality of Alcohol and Drug Abuse Patient Records regulations: The Federal rules restrict any use of the information to criminally investigate or prosecute any alcohol or drug abuse patient.[facility] HospitalIn the event this information is protected by the Federal Confidentiality of Alcohol and Drug Abuse Patient Records regulations: The Federal rules restrict any use of the information to criminally investigate or prosecute any alcohol or drug abuse patient.[facility] HospitalIn the event this information is protected by the Federal Confidentiality of Alcohol and Drug Abuse Patient Records regulations: The Federal rules restrict any use of the information to criminally investigate or prosecute any alcohol or drug abuse patient.[facility] HospitalIn the event this information is protected by the Federal Confidentiality of Alcohol and Drug Abuse Patient Records regulations: The Federal rules restrict any use of the information to criminally investigate or prosecute any alcohol or drug abuse patient.[facility] HospitalIn the event this information is protected by the Federal Confidentiality of Alcohol and Drug Abuse Patient Records regulations: The Federal rules restrict any use of the information to criminally investigate or prosecute any alcohol or drug abuse patient.[facility] HospitalIn the event this information is protected by the Federal Confidentiality of Alcohol and Drug Abuse Patient Records regulations: The Federal rules restrict any use of the information to criminally investigate or prosecute any alcohol or drug abuse patient.[facility] HospitalIn the event this information is protected by the Federal Confidentiality of Alcohol and Drug Abuse Patient Records regulations: The Federal rules restrict any use of the information to criminally investigate or prosecute any alcohol or drug abuse patient.[facility] the event this information is protected by the Federal Confidentiality of Alcohol and Drug Abuse Patient Records regulations: The Federal rules restrict any use of the information to criminally investigate or prosecute any alcohol or drug abuse patient.[facility] Reason for Visit (unrecogniz ed section and content) Reason Comments Insurance Authorization sleep study Reason Onset Date Comments Refill Request 01/09/2022 Reason Comments PSG results Reason Comments 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 Reddy Reason Comments Medication Follow-up Reason Comments Insurance Authorization Reason Onset Date Comments Refill Request 04/13/2024 Reason Comments Recheck Thyroid, BP, Cholest nelson Reason Comments Recheck 3 months neuropathy Reason Comments F/U 3 Month Reason Onset Date Comments Abnormal Lab 10/01/2022 Low potassium; E levated Vitamin B12 Reason Comments Bariatrics Post Op Follow-up 1M Reason Comments Bariatrics Post Op Follow-up 1W Reason Comments Medication Update Reason Comments Well Woman Reason Onset Date Comments Refill Request 10/02/2024 Reason Onset Date Comments Refill Request 11/02/2024 Reason Comments F/U 3 Month Reason Onset Date Comments Refill Request 12/13/2024 Reason Comments Numbness/Tingling Reason Comments Abdominal Pain Abdominal pain Reason Onset Date Comments Results - Ct 01/26/2025 Reason Comments Radiology US Specialty Diagnoses / Procedures Referred By Contac t Referred To Contact [facility] Diagnoses Uterine cyst Abnormal CT scan Procedures US FEMALE PELVIS TRANSVAG US TRANSVAGINAL Fior Alvarez APRN.ELECTRONIC CALIBRATION TECHNICIAN [address] [place] [address] Phone: tel: fax: [facility] [place] [id number] Referral ID Status Reason Start Date Expiration Date V isits Requested Visits Authorized [id number] Closed Auto-Generate d Referral 01/26/2025 02/25/2026 1 1 Reason Comments ultrasound results Reason Onset Date Comments Refill Request 02/08/2025 Reason Onset Date Comments EMG 02/09/2025 Specialty Diagnoses / Procedures Referred By Contac t Referred To Contact [facility] Diagnoses Paresthesia of both feet Procedures EMG(NEURO/NI) NERVE CONDUCTION STUDIES 9-10 STUDIES Lucille Brandt, PAMati [address] [facility] [address] [place] [address] Phone: tel: fax: Neurology [address] [place] [address] Phone: tel: Referral ID Status Reason Start Date Expiration Date V isits Requested Visits Authorized [id number] Closed Auto-Generate d Referral 01/22/2025 01/22/2026 1 1 Reason Comments Abdominal Pain Lower abdomen x 2 da ys Reason Comments 4 month follow up DM & BP Reason Comments Other Thickened endometriu m Reason Comments Follow Up Saw [facility] 01/22/25 - completed xrays and EMG Reason Comments Patient Question Reason Comments Pre-Op Visit Reason Comments UTI Dysuria x 2 days Reason Onset Date Comments Results 04/12/2025 Reason Onset Date Comments Refill Request 04/20/2025 Reason Comments Recheck Medication follow up Reason Comments Post Op Reason Comments Recheck Follow up BP, low po tassium FOR RECORDS PERTAINING TO PATIENTS WHO ARE [...] BE BASED ON THE PRIMARY CLINICAL RECORDS. [facility] [employer] [facility]. provides no warranty or guarantee of the accuracy or completeness of information in this document.
--- OUTSIDE RECORDS SUMMARY | 2025-07-11 01:43 | XMS RPT_ITS | CCD ---
Author Organization [facility] ion Partnership [facility] Care Team Providers Care Pulp And Paper Tester Name Role Phone Ana Bolaños MD Primary [...] Care Provider Luz Lu PA-Chel L Unavailable Older FORENSIC SPECIALIST.LEAD ENGINEER, Fior Unavailable Naty KOLB Angelique Unavailable Aly [...] Unavailable Ganta, Ana Primary Care Unavailable GEOVANNY, EDILSNO Referring Unavailable GEOVANNY, EDILSON Attending Unavailable Wiswell, [...] Unavailable Ganta, Ana Primary Care Unavailable Leo RETAIL CLIENT SOLUTIONS ANALYST, Sobeida Sofia Attending Unavailabl e Ganta, Ana [...] Translations: [sumatriptan succinate] Drug Allergy 3 Other [facility] (20 sources) predniSONE; Translations: [PREDNISONE] Drug Allergy 4 Mental Status Change [facility] (1 source) SUMAtriptan Drug Allergy 5 [facility] (1 source) topiramate Drug Allergy 5 [facility] Medications Current Medications Medication Drug Class(es) [...] Take 1 tablet by yarely twice daily. ascorbic acid 500 mg oral [...] capsule Start: 02-22-2019 take 2 capsules by [facility] twice daily cevimeline (EVOXAC) 30 mg ORAL capsule Take 60 mg by mouth twice daily. 0 02/22/2019 Active Start: 02-22-2019 cevimeline (Ev oxac) 30 MG capsule every 12 hours. 0 02/22/2019 Active Start: 06-23-2013 take 1 capsule by [facility] three times daily Cevimeline (Evoxac) 30 MG [...] 23, 2013 12:00am take 1 tablet by [facility] once daily Cholecalciferol, Vitamin D3, (VITAMIN D) 1,000 unit tab Take 1,000 Units by mouth once daily. Active End: 04-05-2023 take 1 tablet by mouth in the morning cholecalciferol (Vitamin D-3) 25 MCG (1000 UT) tablet Take 2,000 Units by mouth in the morning. 0 04/05/2023 Discontinued (Ineffective) take 1000 [IU] by mo [facility] once daily Cholecalciferol (VITAMIN D3 PO) [...] Start: 06-23-2013 take 3 tablets by mo [facility] once daily Citalopram (Celexa) 10 MG [...] 03/22/2025 05/07/2025 Discontinued 21 day ethinyl estradiol 0.454741 mg/hr / etonogestrel 0.005 mg/hr vaginal system [...] PO EVERY WEEK June 23, 2013 12:00am Xzucmalvx-T9-Jck26-Al gal Oil (Metanx Capsule) 1 EACH capsule (11 sources) Start: 06-23-2013 Tsjupozpo-H3-Wsx99-A lgal Oil (Metanx Capsule) 1 EACH capsule Active 1 EACH PO DAILY June 23, 2013 7:50am Start: 06-23-2013 Xbsvvrkvo-H6-S du36-Rlkgn Oil (Metanx Capsule) 1 EACH capsule Active 1 EACH PO DAILY June 22, 2013 11:00pm Start: 06-23-2013 Dnkflrzra-Q2-I vy07-Xhskw Oil (Metanx Capsule) 1 EACH capsule Active [...] Therapy Supplies (CareTouch CPAP & BIPAP Hose) [facility] (9 sources) Respiratory Ther apy Supplies (CareTouch CPAP & BIPAP Hose) [facility] Indications: Obstructive Sleep Apnea Syndrome 12-20 cm [...] 02/23/2014 Active take 2 tablets by mo [facility] twice daily sulfaSALAzine (AZULFIDINE) 500 MG [...] on above: Take 2 tablets by mo [facility] once daily. Take 4 tablets by mo [facility] once daily. [facility]. ceFAZolin 2000 mg injection (1 [...] take 1 capsule by mouth once daily pvgzp-xh-0-rox-hxn-wgbcwgp-ast (KRILL OIL) 1,629-296-32-50 mg cap Take 1,000 mg by mouth [...] by mout h every 12 hours. nystatin 515051 unt/ml oral suspension (5 sources) Polyene Antifungal Start: 2 End: 3 take 5 mL by mouth three times daily, then take 5 mL by mouth three times daily nystatin (Mycostatin) 994221 UNIT/ML suspension Indications: Oropharyngeal Candidiasis Swish and [...] (8 sources) Patient encounter status; Translations: [Other tank terminal gauger (current) drug therapy] Episodic Other aftercare (1 source) Other penitentiary (current) drug therapy; Translations: [Medication management] Onset: [...] Facility Orthopedic Visit Reporton Orthopedic Visit Report [facility] [address] [place] [address] OFFICE VISIT Date of Service: 07/03/25 MR#: [id number] Acct: [id number] Name: SANTOS ALLAN FRANCI Rep #: [id number] [...] spine Details: (more content not included)... Normal [facility] MRSA/SAID NASAL SCREENon MRSA+SAID SCRN Reason for Exam: Ron celia MRSA MRSA Negative S. AUREUS S. aureus Negative Normal [facility] Comment on above: Performed By: #### M 100.651, L500.2500, L501.9985, L100.0100, BTSPAT ####[facility] [address] [facility] [place], [address] 12 Lead EKGon 06-27-2025 12 Lead EKG [facility] [address] [place] [address] 12 Lead EKG 06/27/25 0701 MR#: [id number] Acct: [id number] Name: SANTOS ALLAN FRANCI Rep #: [id number] : 1965 59 From: Luis Limon MD Attending Dr: Dr. Tobin Bauman MD Status: PRE [facility] Ordering Dr: Tobin Bauman MD Date: 06/27/25 Location: [facility] Sex: F C Admitted: Test [...] was found Confirmed by ARLETTE BOSTON, LUIS ([id number]), editorial director KRISTEN STAFFORD ([id number]) on 06/28/2025 6:28:50 AM Referred By: Tobin Bauman Confirmed By: LUIS LIMON MD 06/28/25627 Date Luis Limon MD CC: Dr. Tobin Bauman MD; Dr. Ana Bolaños MD Signed Normal [facility] Basic Metabolic Profile (BMP )on 06-27-2025 BUN/CRE 8.3 RATIO Low 10-20 [facility] Comment on above: Performed By: #### M 100.651, L500.2500, L501.9985, L100.0100, BTSPAT ####[facility] [address] [place], [address] Calcium [Mass/Vol] 9.6 mg/dL Normal 7.6-11.0 [facility] Comment on above: Performed By: #### M 100.651, L500.2500, L501.9985, L100.0100, BTSPAT ####[facility] [address] [place], [address] Chloride [Moles/Vol] 98 mmol/L Normal 98-108 [facility] Comment on above: Performed By: #### M 100.651, L500.2500, L501.9985, L100.0100, BTSPAT ####[facility] [address] [place], [address] CO2 [Moles/Vol] 29.9 mmol/L Normal 21.0-32.0 [facility] Comment on above: Performed By: #### M 100.651, L500.2500, L501.9985, L100.0100, BTSPAT ####[facility] [address] [place], [address] Creatinine [Mass/Vol] 0.57 mg/dL Low 0.70-1.20 [facility] Comment on above: Performed By: #### M 100.651, L500.2500, L501.9985, L100.0100, BTSPAT ####[facility] [address] [place], [address] GAP 11 Normal 5-15 [facility] Comment on above: Performed By: #### M 100.651, L500.2500, L501.9985, L100.0100, BTSPAT ####[facility] [address] [place], [address] GFR/1.73 sq M.predicted among non-blacks MDRD (S/P/Bld) [Vol rate/Area] 106 mL/min/{1.73_m2} Normal >60 [facility] Comment on above: Result Comment: mL/m in/1.73m2 CKD-EPI Creatinine Equation (2020) Performed By: #### M 100.651, L500.2500, L501.9985, L100.0100, BTSPAT ####[facility] [address] [place], [address] Glucose [Mass/Vol] 85 mg/dL Normal 70-99 [facility] Comment on above: Performed By: #### M 100.651, L500.2500, L501.9985, L100.0100, BTSPAT ####[facility] [address] [place], [address] Potassium [Moles/Vol] 4.1 mmol/L Normal 3.3-5.1 [facility] Comment on above: Performed By: #### M 100.651, L500.2500, L501.9985, L100.0100, BTSPAT ####[facility] [address] [place], [address] Sodium [Moles/Vol] 139 mmol/L Normal 133-145 [facility] Comment on above: Performed By: #### M 100.651, L500.2500, L501.9985, L100.0100, BTSPAT ####[facility] [address] [place], [address] Urea nitrogen [Mass/Vol] 5 mg/dL Normal 4-19 [facility] Comment on above: Performed By: #### M 100.651, L500.2500, L501.9985, L100.0100, BTSPAT ####[facility] [address] [place], [address] CBC W/Diff, Automatedon 10-1 -2024 Absolute Lymph 1.87 X10 3/uL Normal 0.83-4.51 [facility] Comment on above: Performed By: #### M 100.651, L500.2500, L501.9985, L100.0100, BTSPAT ####[facility] [address] [place], [address] Absolute Neut 2.2 X10 3/uL Normal 2.0-7.7 [facility] Comment on above: Performed By: #### M 100.651, L500.2500, L501.9985, L100.0100, BTSPAT ####[facility] [address] [place], [address] Basophils/100 WBC (Bld) 0.7 % Normal 0-1 [facility] Comment on above: Performed By: #### M 100.651, L500.2500, L501.9985, L100.0100, BTSPAT ####[facility] [address] [place], [address] Eosinophils/100 WBC (Bld) 0.0 % Normal 0-5 [facility] Comment on above: Performed By: #### M 100.651, L500.2500, L501.9985, L100.0100, BTSPAT ####[facility] [address] [place], [address] Erythrocyte distribution width (RBC) [Ratio] 12.2 % Normal 11.6-14.6 [facility] Comment on above: Performed By: #### M 100.651, L500.2500, L501.9985, L100.0100, BTSPAT ####[facility] [address] [place], [address] Hematocrit (Bld) [Volume fraction] 40.9 % Normal 37-47 [facility] Comment on above: Performed By: #### M 100.651, L500.2500, L501.9985, L100.0100, BTSPAT ####[facility] [address] [place], [address] Hemoglobin (Bld) [Mass/Vol] 13.6 g/dL Normal 12.0-15.0 [facility] Comment on above: Performed By: #### M 100.651, L500.2500, L501.9985, L100.0100, BTSPAT ####[facility] [address] [place], [address] IG% 0.200 Normal 0.0-0.9 [facility] Comment on above: Result Comment: IG% - Immature Granulocytes (promyelocytes, myelocytes and metamyelocytes) > 1% indicates that a LEFT SHIFT is Present. Performed By: #### M 100.651, L500.2500, L501.9985, L100.0100, BTSPAT ####[facility] [address] [place], [address] Lymphocytes/100 WBC (Bld) 42.1 % High 19-41 [facility] Comment on above: Performed By: #### M 100.651, L500.2500, L501.9985, L100.0100, BTSPAT ####[facility] [address] [place], [address] MCH (RBC) [Entitic mass] 30.8 pg Normal 27.0-32.0 [facility] Comment on above: Performed By: #### M 100.651, L500.2500, L501.9985, L100.0100, BTSPAT ####[facility] [address] [place], [address] MCHC (RBC) [Mass/Vol] 33.3 g/dL Normal 32-36 [facility] Comment on above: Performed By: #### M 100.651, L500.2500, L501.9985, L100.0100, BTSPAT ####[facility] [address] [place], [address] MCV (RBC) [Entitic vol] 92.5 fL Normal 81-99 [facility] Comment on above: Performed By: #### M 100.651, L500.2500, L501.9985, L100.0100, BTSPAT ####[facility] [address] [place], [address] Monocytes/100 WBC (Bld) 8.3 % Normal 0-10 [facility] Comment on above: Performed By: #### M 100.651, L500.2500, L501.9985, L100.0100, BTSPAT ####[facility] [address] [place], [address] Neutrophils/100 WBC (Bld) 48.7 % Normal 47-70 [facility] Comment on above: Performed By: #### M 100.651, L500.2500, L501.9985, L100.0100, BTSPAT ####[facility] [address] [place], [address] Nucleated RBC (Bld) [#/Vol] 0 10*3/uL Normal 0-5 [facility] Comment on above: Performed By: #### M 100.651, L500.2500, L501.9985, L100.0100, BTSPAT ####[facility] [address] [place], [address] Platelet mean volume (Bld) [Entitic vol] 9.6 fL Normal 6.2-12.0 [facility] Comment on above: Performed By: #### M 100.651, L500.2500, L501.9985, L100.0100, BTSPAT ####[facility] [address] [place], [address] Platelets (Bld) [#/Vol] 277 10*3/uL Normal 150-450 [facility] Comment on above: Performed By: #### M 100.651, L500.2500, L501.9985, L100.0100, BTSPAT ####[facility] [address] [place], [address] RBC (Bld) [#/Vol] 4.42 10*6/uL Normal 4.2-5.4 [facility] Comment on above: Performed By: #### M 100.651, L500.2500, L501.9985, L100.0100, BTSPAT ####[facility] [address] [place], [address] RDW SD 41.6 fl Normal 35.1-43.9 [facility] Comment on above: Performed By: #### M 100.651, L500.2500, L501.9985, L100.0100, BTSPAT ####[facility] [address] [place], [address] WBC (Bld) [#/Vol] 4.4 10*3/uL Normal 4.4-11.0 [facility] Comment on above: Performed By: #### M 100.651, L500.2500, L501.9985, L100.0100, BTSPAT ####[facility] [address] [place], [place], [address] Hemoglobin A1con 06-27-2025 HbA1c (Bld) [Mass fraction] 4.6 % Normal <=5.6 [facility] Comment on above: Result Comment: Norm al < 5.7 % Prediabetic 5.7 - 6.4 % Diabetic >or= 6.5 % Please note range changes. Performed By: #### M 100.651, L500.2500, L501.9985, L100.0100, BTSPAT ####[facility] [address] [place], [place], [address] Magnesiumon 06-27-2025 Magnesium [Mass/Vol] 2.5 mg/dL High 1.5-2.2 [facility] Comment on above: Performed By: #### L 501.5200, L501.9520 ####[facility] [address] [place], [place], [address] Thyroid Stim Hormone (TSH)on 06-27-2025 TSH 0.383 uIU/mL Normal 0.300-4.200 [facility] Comment on above: Performed By: #### L 501.5200, L501.9520 ####[facility] [address] [place], [place], [address] Type AND Screen - PAT ONLYon 06-27-2025 Ab SCREEN GEL Negative Normal [facility] Comment on above: Order Comment: Surge ry Date: 07/10/25[facility] Test [id number] INTERBODY FUSION Performed By: #### M 100.651, L500.2500, L501.9985, L100.0100, BTSPAT ####[facility] [address] [place], [place], [address] CNOVon 06-25-2025 CNOV Office Visit (INTMWS ) SANTOS ALLAN ([id number]) 1965 F Date Time Provider Department 06/25/25 [...] for this condition. You last saw your screen printing inspector 3-4 months ago and are scheduled to [...] is taking sulfasalazine. She last saw her screen printing inspector 3-4 months ago and has a follow-up appointment in July. Her screen printing inspector reports that her scleroderma is controlled, and [...] Vaccine(2024- season) (more content not included)... Normal [facility] Basic metabolic 2000 panelon 06-08-2025 Anion gap [Moles/Vol] 10 mmol/L Normal 8-15 [facility] Comment on above: Order Comment: Speci men Type: BLOOD SPECIMENOrdering Facility: [facility] Address: [address] [place] [address] Performed By: #### 2 4321-2 ####[facility] LABCLIA [id number] [place] [address] [place] Calcium [Mass/Vol] 9.8 mg/dL Normal 8.5-10.2 [facility] Comment on above: Order Comment: Speci men Type: BLOOD SPECIMENOrdering Facility: [facility] Address: [address] [place] [address] Performed By: #### 2 4321-2 ####[facility] LABCLIA [id number] [place] [address] [place] Chloride [Moles/Vol] 98 mmol/L Normal 98-107 [facility] Comment on above: Order Comment: Speci men Type: BLOOD SPECIMENOrdering Facility: [facility] Address: [address] [place] [address] Performed By: #### 2 4321-2 ####[facility] LABCLIA [id number] [place] [id number] [place] CO2 [Moles/Vol] 29 mmol/L Normal 22-30 [facility] Comment on above: Order Comment: Speci men Type: BLOOD SPECIMENOrdering Facility: [facility] Address: [address] [place] [address] Performed By: #### 2 4321-2 ####[facility] LABIA [id number] [place] [id number] [place] Creatinine [Mass/Vol] 0.56 mg/dL Low 0.58-0.96 [facility] Comment on above: Order Comment: Vondai men Type: BLOOD SPECIMENOrdering Facility: [facility] Address: [address] [place] [address] Performed By: #### 2 4321-2 ####[facility] LABIA [id number] [place] [address] [place] eGFRcr SerPlBld CKD-EPI 2020 107 mL/min/1.73m??? Normal >=60 [facility] Comment on above: Order Comment: Sg men Type: BLOOD SPECIMENOrdering Facility: [facility] Address: [address] [place] [address] Result Comment: Marilee mated Glomerular Filtration Rate [...] actual GFR. Performed By: #### 2 4321-2 ####[facility] LABIA [id number] [place] [id number] [place] Glucose [Mass/Vol] 80 mg/dL Normal 74-99 [facility] Comment on above: Order Comment: Sg men Type: BLOOD SPECIMENOrdering Facility: [facility] Address: [address] [place] [address] Result Comment: The [place] Diabetes Association (ADA) provides guidance for cutoff [...] Standards of Medical Care in Diabetes 2016, [place] [employer]. Diabetes Care. 2016.39(Suppl 1). Performed By: #### 2 4321-2 ####[facility] LABCLIA [id number] [address] [address] [place] Potassium [Moles/Vol] 5.0 mmol/L Normal 3.7-5.1 [facility] Comment on above: Order Comment: Speci men Type: BLOOD SPECIMENOrdering Facility: [facility] Address: [address] [place] [address] Performed By: #### 2 4321-2 ####[facility] LABIA [id number] [address] [address] [place] Sodium [Moles/Vol] 137 mmol/L Normal 136-144 [facility] Comment on above: Order Comment: Vondai romelia Type: BLOOD SPECIMENOrdering Facility: [facility] Address: [address] [place] [address] Performed By: #### 2 4321-2 ####[facility] LABIA [id number] [address] [address] [place] Urea nitrogen [Mass/Vol] 5 mg/dL Low 7-21 [facility] Comment on above: Order Comment: Speci men Type: BLOOD SPECIMENOrdering Facility: [facility] Address: [address] [place] [address] Performed By: #### 2 4321-2 ####[facility] LABCLIA [id number] [address] [address] [place] Orthopedic Visit Reporton Orthopedic Visit Report [facility] [address] [place] [address] [address] [place] [address] OFFICE VISIT Date of Service: 06/01/25 MR#: [id number] Acct: [id number] Name: SANTOS ALLAN Rep #: [id number] : 1965 Provider: Dr. Tobin Bauman MD Age/Sex: 59/F Location: [facility] [place] Status: Signed Intake Vital Signs 04/20/25 08:26 [...] the servic (more content not included)... [facility] (INTMWS ) SANTOS ALLAN ([id number]) 1965 F Date Time Provider Department 05/11/25 [...] today for follow up. Recording using ambient B2Brev software for draft documentation of the visit was discussed with the patient/authorized mill representative; all questions welcomed and answered. Patient/authorized mill representative agreed to proceed Hypertension: - Blood [...] 5000 SENSITI (more content not included)... Normal [facility] Basic metabolic 2000 panelon 05-07-2025 Anion gap [Moles/Vol] 11 mmol/L Normal 8-15 [facility] Comment on above: Order Comment: Speci men Type: BLOOD SPECIMENOrdering Facility: [facility] Address: [address] [place] [address] Performed By: #### 2 4321-2 ####[facility]ITAL[facility]CL[facility] [id number] [place] [address] [place] Calcium [Mass/Vol] 9.4 mg/dL Normal 8.5-10.2 [facility] Comment on above: Order Comment: Speci men Type: BLOOD SPECIMENOrdering Facility: [facility] Address: [address] [place] [address] Performed By: #### 2 4321-2 ####[facility] [id number] [place] [address] [place] Chloride [Moles/Vol] 100 mmol/L Normal 98-107 [facility] Comment on above: Order Comment: Speci men Type: BLOOD SPECIMENOrdering Facility: [facility] Address: [address] [place] [address] Performed By: #### 2 4321-2 ####[facility] [id number] [place] [address] [place] CO2 [Moles/Vol] 28 mmol/L Normal 22-30 [facility] Comment on above: Order Comment: Speci men Type: BLOOD SPECIMENOrdering Facility: [facility] Address: [address] [place], [place] [address] Performed By: #### 2 4321-2 ####[facility] [id number] [place] [address] [place] Creatinine [Mass/Vol] 0.58 mg/dL Normal 0.58-0.96 [facility] Comment on above: Order Comment: Speci men Type: BLOOD SPECIMENOrdering Facility: [facility] Address: [address] [place] [address] Performed By: #### 2 4321-2 ####[facility] [id number] [place] [address] [place] eGFRcr SerPlBld CKD-EPI 2020 106 mL/min/1.73m??? Normal >=60 [facility] Comment on above: Order Comment: Sg león Type: BLOOD SPECIMENOrdering Facility: [facility] Address: [address] [place] [address] Result Comment: Marilee mated Glomerular Filtration Rate [...] actual GFR. Performed By: #### 2 4321-2 ####[facility] [id number] [place] [address] [place] Glucose [Mass/Vol] 97 mg/dL Normal 74-99 [facility] Comment on above: Order Comment: Sg león Type: BLOOD SPECIMENOrdering Facility: [facility] Address: [address] [place] [address] Result Comment: The [place] Diabetes Association (ADA) provides guidance for cutoff [...] Standards of Medical Care in Diabetes 2016, [place] [employer]. Diabetes Care. 2016.39(Suppl 1). Performed By: #### 2 4321-2 ####[facility] MILLWNCLIA [id number] [place] [address] [place] Potassium [Moles/Vol] 3.9 mmol/L Normal 3.7-5.1 [facility] Comment on above: Order Comment: Speci men Type: BLOOD SPECIMENOrdering Facility: [facility] Address: [address] [place] [address] Performed By: #### 2 4321-2 ####[facility] [id number] [place] [address] [place] Sodium [Moles/Vol] 139 mmol/L Normal 136-144 [facility] Comment on above: Order Comment: Speci men Type: BLOOD SPECIMENOrdering Facility: [facility] Address: [address] [place] [address] Performed By: #### 2 4321-2 ####[facility]ITAL[facility]CLIA [id number] [place] [address] [place] Urea nitrogen [Mass/Vol] 5 mg/dL Low 7-21 [facility] Comment on above: Order Comment: Speci men Type: BLOOD SPECIMENOrdering Facility: [facility] Address: [address] [place] [address] Performed By: #### 2 4321-2 ####[facility] HOSPITALNCLIA [id number] [place] [address] [place] CNOVon 05-07-2025 CNOV Office Visit (OBGYWM ) SANTOS ALLAN ([id number]) 1965 F Date Time Provider Department 05/07/25 4:20 PM ASH CHOWDHURY OBGYWM During your visit today, we recorded the following information about you: Blood pressure Weight 120/84 79.7 kg Ash Chowdhury MD 05/07/2025 6:25 PM Signed DATE OF SERVICE: 05/07/2025 PROBLEM: Santos Allan presents for postop visit. SURGERY AND DATE: Hysteroscopy [facility] PATHOLOGY: benign SUBJECTIVE/INTERVAL HISTORY: Santos Allan is [...] 08/11/2024 Histor (more content not included)... Normal [facility] CNOVon 05-02-2025 CNOV Office Visit (INTMWS ) SANTOS ALLAN ([id number]) 1965 F Date Time Provider Department 05/02/25 [...] from HCTZ due to hypokalemia. Recording using Vanilla Forums software for draft documentation of the visit was discussed with the patient/authorized mill representative; all questions welcomed and answered. Patient/authorized mill representative agreed to proceed Edema and HTN: [...] 5000 SE (more content not included)... Normal [facility] Basic metabolic 2000 panelon 04-27-2025 Anion gap [Moles/Vol] 12 mmol/L 8 - 15 mmol/L [facility] Calcium [Mass/Vol] 9.0 mg/dL 8.5 - 10. 2 mg/dL [facility] Chloride [Moles/Vol] 102 mmol/L 98 - 107 mmol/L [facility] CO2 [Moles/Vol] 26 mmol/L 22 - 30 mmol/L [facility] Creatinine [Mass/Vol] 0.53 mg/dL Low 0.58 - 0.96 mg/dL [facility] GFR/1.73 sq M.predicted among non-blacks MDRD (S/P/Bld) [Vol rate/Area] 108 mL/min/{1.73_m2} - PINF [facility] Comment on above: Estimated Glomerular Filtration [...] [Mass/Vol] 78 mg/dL 74 - 99 mg/dL [facility] Comment on above: The [place] Diabete s Association (ADA) provides guidance for [...] Standards of Medical Care in Diabetes 2016, [place] Diabetes Association. Diabetes Care. 2016.39(Suppl 1). Interpretation and review of laboratory results Abnormal [facility] Potassium [Moles/Vol] 3.6 mmol/L Low 3.7 - 5.1 mmol/L [facility] Sodium [Moles/Vol] 140 mmol/L 136 - 144 mmol/L [facility] Urea nitrogen [Mass/Vol] 4 mg/dL Low 7 - 21 mg/dL [facility] Anion gap [Moles/Vol] 12 mmol/L Normal 8-15 [facility] Comment on above: Order Comment: Vondai men Type: BLOOD SPECIMENOrdering Facility: [facility] Address: [address] [place] [address] Performed By: #### 2 4321-2 ####[facility] LABCLIA [id number] [place] [address] [place] Calcium [Mass/Vol] 9.0 mg/dL Normal 8.5-10.2 [facility] Comment on above: Order Comment: Vondai romelia Type: BLOOD SPECIMENOrdering Facility: [facility] Address: [address] [place] [address] Performed By: #### 2 4321-2 ####[facility] LABCLIA [id number] [place] [address] [place] Chloride [Moles/Vol] 102 mmol/L Normal 98-107 [facility] Comment on above: Order Comment: Speci men Type: BLOOD SPECIMENOrdering Facility: [facility] Address: [address] [place] [address] Performed By: #### 2 4321-2 ####[facility] LABCLIA [id number] [place] [address] [place] CO2 [Moles/Vol] 26 mmol/L Normal 22-30 [facility] Comment on above: Order Comment: Speci men Type: BLOOD SPECIMENOrdering Facility: [facility] Address: [address] [id number] Performed By: #### 2 4321-2 ####[facility] LABIA [id number] [place] [id number] [place] Creatinine [Mass/Vol] 0.53 mg/dL Low 0.58-0.96 [facility] Comment on above: Order Comment: Speci men Type: BLOOD SPECIMENOrdering Facility: [facility] Address: [address] [place] [address] Performed By: #### 2 4321-2 ####[facility] LABIA [id number] [place] [address] [place] eGFRcr SerPlBld CKD-EPI 2020 108 mL/min/1.73m??? Normal >=60 [facility] Comment on above: Order Comment: Vondai men Type: BLOOD SPECIMENOrdering Facility: [facility] Address: [address] [place] [address] Result Comment: Marilee mated Glomerular Filtration Rate [...] actual GFR. Performed By: #### 2 4321-2 ####[facility] LABIA [id number] [place] [id number] [place] Glucose [Mass/Vol] 78 mg/dL Normal 74-99 [facility] Comment on above: Order Comment: Vondai men Type: BLOOD SPECIMENOrdering Facility: [facility] Address: [address] [place] [address] Result Comment: The [place] Diabetes Association (ADA) provides guidance for cutoff [...] Standards of Medical Care in Diabetes 2016, [place] Diabetes Association. Diabetes Care. 2016.39(Suppl 1). Performed By: #### 2 4321-2 ####[facility] LABCLIA [id number] [address] [address] [place] Potassium [Moles/Vol] 3.6 mmol/L Low 3.7-5.1 [facility] Comment on above: Order Comment: Sg men Type: BLOOD SPECIMENOrdering Facility: [facility] Address: [address] [place] [address] Performed By: #### 2 4321-2 ####[facility] LABIA [id number] [address] [address] [place] Sodium [Moles/Vol] 140 mmol/L Normal 136-144 [facility] Comment on above: Order Comment: Sg león Type: BLOOD SPECIMENOrdering Facility: [facility] Address: [address] [place] [address] Performed By: #### 2 4321-2 ####[facility] LABIA [id number] [address] [address] [place] Urea nitrogen [Mass/Vol] 4 mg/dL Low 7-21 [facility] Comment on above: Order Comment: Vondai men Type: BLOOD SPECIMENOrdering Facility: [facility] Address: [address] [place] [address] Performed By: #### 2 4321-2 ####[facility] LABIA [id number] [address] [address] [place] Discharge Instructionon 08-0 Discharge Instruction [facility] Medical Records Department [address] [place] [address] Instructions for Home/Discharge Instructions 04/20/25 0925 MR#: [id number] Acct: [id number] Name: SANTOS ALLAN Rep #: [id number] : 1965 59 From: Ash Chowdhury DO [...] Patient Instructions: Dilation and Curettage Print Language: Palauan Discharge Orders/Prescriptions Prescriptions: Continued leflunomide 20 mg [...] DO CC: Dr. Ana Bolaños MD Signed [facility] MR/POSTOP.[facility] 04-20-2025 MR/POSTOP.[facility] Medical Records Department [address] [place] [address] Anesthesia Postop Eval I 04/20/25 1004 MR#: [id number] Acct: [id number] Name: SANTOS ALLAN FRANCI Rep #: [id number] : 1965 59 From: Star Kathleen CRNA PCP: Dr. Ana Bolaños MD Status:REG SDC Y Race: C Location: [place] [address] Anesthesia: Postop Eval I Current Vital Signs [...] CRNA Cosigner Signature: Date CC: Signed Normal [facility] Operative Reporton 5 Operative Report [facility] Medical Records Department [address] [place] [address] Operative Report 04/20/25 0955 MR#: [id number] Acct: [id number] Name: SANTOS ALLAN FRANCI Rep #: [id number] : 1965 59 From: Ash Chowdhury DO PCP: Dr. Ana Bolaños MD Status:[facility] Location: [place] [address] Problems Associated Problem List Diagnoses (1) Endometrial thickening on ultrasound: (2) Fluid in endometrial cavity: Operative Report (Standard) Operative Information Date of Procedure: 04/20/25 Pre-Operative Diagnosis: Thickening of endometrium and endometrial fluid in pelvic ultrasound Post-Operative Diagnosis: As above Surgery/Procedure Performed: Hysteroscopy D C ict development manager: No Type of Anesthesia: Local and MAC [...] MD; Dr. Ash Chowdhury DO Signed Normal [facility] Surgery Specimen Level Marie 04-20-2025 Surgery Specimen Level IV Patient Age/Sex Location Account Attending Physician SANTOS ALLAN 59/F [facility] [id number] Dr. Ash Chowdhury, Specimen: [id number] Received: 04/20/25 Status: DIRK Jaramillo Num: [id number] Spec Type: ENDOM BX/C Subm Dr: Dr. Ash Chowdhury, [facility] OPERATION: Hysteroscopy, D C PRE-OP DIAGNOSIS: Abnormal [...] tissue fragments. Entirely submitted in 1 cassette. MD 04/20/2025 CPT:33864 Patient Age/Sex Location Account Attending Physician SANTOS ALLAN 59/F [facility] [id number] Dr. Ash Chowdhury, DO Signed (signature on file) Dr. Doris Hopkins MD 04/24/25 1335 Normal [facility] Comment on above: Performed By: #### P SUIV ####[facility] [address] [place], [address] Orthopedic Visit Reporton Orthopedic Visit Report [facility] [address] [place] [address] OFFICE VISIT Date of Service: 04/18/25 MR#: [id number] Acct: [id number] Name: SANTOS ALLAN Rep #: [id number] : 1965 Provider: PHILL Vasquez Age/Sex: 59/F Location: [facility] [place] Status: Signed with Addenda ADDENDUM by PHILL [...] H/O partial (more content not included)... Normal [facility] CBC-Complete Blood Cnt No Di ffon 04-13-2025 Erythrocyte distribution width (RBC) [Ratio] 12.5 % Normal 11.6-14.6 [facility] Comment on above: Performed By: #### L 100.0500, BTSPAT, L500.4050 ####[facility] [address] [place], [place], [address] Hematocrit (Bld) [Volume fraction] 41.1 % Normal 37-47 [facility] Comment on above: Performed By: #### L 100.0500, BTSPAT, L500.4050 ####[facility] [address] [facility] [place], [place], [phone]) Hemoglobin (Bld) [Mass/Vol] 13.4 g/dL Normal 12.0-15.0 [facility] Comment on above: Performed By: #### L 100.0500, BTSPAT, L500.4050 ####[facility] [address] [place], [address] MCH (RBC) [Entitic mass] 29.8 pg Normal 27.0-32.0 [facility] Comment on above: Performed By: #### L 100.0500, BTSPAT, L500.4050 ####[facility] [address] [place], [address] MCHC (RBC) [Mass/Vol] 32.6 g/dL Normal 32-36 [facility] Comment on above: Performed By: #### L 100.0500, BTSPAT, L500.4050 ####[facility] [address] [place], [address] MCV (RBC) [Entitic vol] 91.3 fL Normal 81-99 [facility] Comment on above: Performed By: #### L 100.0500, BTSPAT, L500.4050 ####[facility] [address] [place], [address] Platelet mean volume (Bld) [Entitic vol] 9.5 fL Normal 6.2-12.0 [facility] Comment on above: Performed By: #### L 100.0500, BTSPAT, L500.4050 ####[facility] [address] [place], [address] Platelets (Bld) [#/Vol] 266 10*3/uL Normal 150-450 [facility] Comment on above: Performed By: #### L 100.0500, BTSPAT, L500.4050 ####[facility] [address] [place], [address] RBC (Bld) [#/Vol] 4.50 10*6/uL Normal 4.2-5.4 [facility] Comment on above: Performed By: #### L 100.0500, BTSPAT, L500.4050 ####[facility] [address] [place], [address] RDW SD 41.7 fl Normal 35.1-43.9 [facility] Comment on above: Performed By: #### L 100.0500, BTSPAT, L500.4050 ####[facility] [address] [place], [address] WBC (Bld) [#/Vol] 4.9 10*3/uL Normal 4.4-11.0 [facility] Comment on above: Performed By: #### L 100.0500, BTSPAT, L500.4050 ####[facility] [address] [place], [address] Comprehensive Metabolic Prof ilon 04-13-2025 Albumin [Mass/Vol] 4.1 g/dL Normal 3.5-5.0 [facility] Comment on above: Performed By: #### L 100.0500, BTSPAT, L500.4050 ####[facility] [address] [place], [address] Albumin/Globulin [Mass ratio] 1.6 {ratio} Normal 0.9-2.4 [facility] Comment on above: Performed By: #### L 100.0500, BTSPAT, L500.4050 ####[facility] [address] [place], [address] ALK PHOS 90 U/L Normal 35-104 [facility] Comment on above: Performed By: #### L 100.0500, BTSPAT, L500.4050 ####[facility] [address] [place], [address] ALT [Catalytic activity/Vol] 13 U/L Normal <=34 [facility] Comment on above: Performed By: #### L 100.0500, BTSPAT, L500.4050 ####[facility] [address] [place], [address] AST [Catalytic activity/Vol] 20 U/L Normal <=31 [facility] Comment on above: Performed By: #### L 100.0500, BTSPAT, L500.4050 ####[facility] [address] [place], [address] Bilirubin [Mass/Vol] 0.35 mg/dL Normal 0.00-1.30 [facility] Comment on above: Performed By: #### L 100.0500, BTSPAT, L500.4050 ####[facility] [address] [place], [address] BUN/CRE 6.3 RATIO Low 10-20 [facility] Comment on above: Performed By: #### L 100.0500, BTSPAT, L500.4050 ####[facility] [address] [place], [address] Calcium [Mass/Vol] 9.2 mg/dL Normal 7.6-11.0 [facility] Comment on above: Performed By: #### L 100.0500, BTSPAT, L500.4050 ####[facility] [address] [place], [address] Chloride [Moles/Vol] 103 mmol/L Normal 98-108 [facility] Comment on above: Performed By: #### L 100.0500, BTSPAT, L500.4050 ####[facility] [address] [place], [address] CO2 [Moles/Vol] 27.0 mmol/L Normal 21.0-32.0 [facility] Comment on above: Performed By: #### L 100.0500, BTSPAT, L500.4050 ####[facility] [address] [place], [address] Creatinine [Mass/Vol] 0.58 mg/dL Low 0.70-1.20 [facility] Comment on above: Performed By: #### L 100.0500, BTSPAT, L500.4050 ####[facility] [address] [place], [address] GAP 10 Normal 5-15 [facility] Comment on above: Performed By: #### L 100.0500, BTSPAT, L500.4050 ####[facility] [address] [place], [address] GFR/1.73 sq M.predicted among non-blacks MDRD (S/P/Bld) [Vol rate/Area] 105 mL/min/{1.73_m2} Normal >60 [facility] Comment on above: Result Comment: mL/m in/1.73m2 CKD-EPI Creatinine Equation (2020) Performed By: #### L 100.0500, BTSPAT, L500.4050 ####[facility] [address] [place], [address] Globulin (S) [Mass/Vol] 2.5 g/dL Normal 2.2-4.2 [facility] Comment on above: Performed By: #### L 100.0500, BTSPAT, L500.4050 ####[facility] [address] [place], [address] Glucose [Mass/Vol] 82 mg/dL Normal 70-99 [facility] Comment on above: Performed By: #### L 100.0500, BTSPAT, L500.4050 ####[facility] [address] [place], [address] Potassium [Moles/Vol] 4.1 mmol/L Normal 3.3-5.1 [facility] Comment on above: Performed By: #### L 100.0500, BTSPAT, L500.4050 ####[facility] [address] [place], [address] Sodium [Moles/Vol] 140 mmol/L Normal 133-145 [facility] Comment on above: Performed By: #### L 100.0500, BTSPAT, L500.4050 ####[facility] [address] [place], [address] T PROT 6.6 g/dL Normal 5.9-8.4 [facility] Comment on above: Performed By: #### L 100.0500, BTSPAT, L500.4050 ####[facility] [address] [place], [address] Urea nitrogen [Mass/Vol] 4 mg/dL Normal 4-19 [facility] Comment on above: Performed By: #### L 100.0500, BTSPAT, L500.4050 ####[facility] [address] [place], [address] Spine Lumbar (Routine)on Spine Lumbar (Routine) [facility] Imaging Services [address] [place] [address] Spine Lumbar (Routine) MR#: [id number] Acct: [id number] Name: SANTOS ALLAN FRANCI Rep #: [id number] : 1965 F 59 From: Max Alva MD PCP: Dr. Ana Bolaños MD Status: REG CLI Study: Spine Lumbar (Routine) Date of Exam: 04/13/25 Exam# [id number] Ordering Dr: Saundra Randle PROCEDURE: SPINE LUMBAR [...] stenosis at L3-L4 and L4-L5. Reading Location: [facility] CC: PHILL Vasquez; Dr. Ana Bolaños MD Senior Application Security Consultant: Signed Normal [facility] Type AND Screen - PAT ONLYon 04-13-2025 Ab SCREEN GEL Negative Normal [facility] Comment on above: Order Comment: Surge ry Date: 04/20/25Reason for Laboratory Test [id number] D C Performed By: #### L 100.0500, BTSPAT, L500.4050 ####[facility] [address] [place], [address] Bacteria Ur Culton 5 Bacteria identified Cx Nom (U) ORGANISM ID: 1 10,000 -<50,000 CFU/ml Mixed microbiota No further workup. Mixed microbiota can be due to???urine???contamination with skin bacteria at time of collection or presence of a long-term urinary catheter. If a new culture is needed, please consider re-education of the patient on proper midstream collection technique or straight catheterization for???urine???collection. Normal [facility] Comment on above: Performed By: #### 6 30-4 ####[facility] LABCLIA [id number] [address] [place] CNOVon 04-10-2025 CNOV Office Visit (FAMPWS ) SANTOS ALLAN ([id number]) 1965 F Date Time Provider Department 04/10/25 10:00 AM ANGELIQUE BRADFORD During your visit today, we recorded the following information about you: Temperature Pulse Blood pressure Weight 97.5 degrees 71/minute 126/81 81.6 kg Angelique Bradford PA-C 04/10/2025 10:27 AM Signed - Start Cephalexin (Keflex) as directed: take 1 capsule twice daily for 7 days; prescription sent to [facility]. - A urine sample has been [...] PA-C 04/10/2025 12:38 PM Signed Recording using Vanilla Forums software for draft documentation of the visit was discussed with the patient/authorized mill representative; all questions welcomed and answered. Patient/authorized mill representative agreed to proceed 04/10/2025 Recurrent UTIs: [...] Right ankle (more content not included)... Normal [facility] UA DIP, URINE (POC)on 2024 BILIRUBIN UA (POCT) Negative Negative [facility] CLARITY UA (POCT) Clear [facility] COLOR UA (POCT) Yellow [facility] GLUCOSE UA (POCT) Negative Negative mg/dL [facility] Hemoglobin Ql (U) Small Abnormal Negative [facility] Interpretation and review of laboratory results Abnormal [facility] KETONE UA (POCT) Negative Negative mg/dL [facility] LEUKOCYTES UA (POCT) Large Abnormal Negative [facility] NITRITE UA (POCT) Negative Negative [facility] PH UA (POCT) 6 4.5 - 8.0 [facility] Protein Ql (U) Negative Negative mg/dL [facility] SPECIFIC GRAVITY UA (POCT) 1.01 1.005 - 1.030 [facility] UROBILINOGEN UA (POCT) 0.2 Normal E.U./dL [facility] Location:[facility], [address] [place] [address], [place], [address] [facility] POINT OF CARE [facility] Basic metabolic 2000 panelon 04-09-2025 Anion gap [Moles/Vol] 16 mmol/L High 8-15 [facility] Comment on above: Order Comment: Speci men Type: BLOOD SPECIMENOrdering Facility: [facility] Address: [address] [place] [address] Performed By: #### 2 6697-2 ####[facility] MILLTOWNCLIA [id number] [place] [address] [place] Calcium [Mass/Vol] 9.5 mg/dL Normal 8.5-10.2 [facility] Comment on above: Order Comment: Speci men Type: BLOOD SPECIMENOrdering Facility: [facility] Address: [address] [place] [address] Performed By: #### 2 4321-2 ####[facility]ITALWNCLIA [id number] [place] [address] [place] Chloride [Moles/Vol] 100 mmol/L Normal 98-107 [facility] Comment on above: Order Comment: Speci men Type: BLOOD SPECIMENOrdering Facility: [facility] Address: [address] [place] [address] Performed By: #### 2 4321-2 ####[facility]IT[facility]IA [id number] [place] [address] [place] CO2 [Moles/Vol] 23 mmol/L Normal 22-30 [facility] Comment on above: Order Comment: Speci men Type: BLOOD SPECIMENOrdering Facility: [facility] Address: [address] [place] [address] Performed By: #### 2 4321-2 ####[facility] HOSPITALWNCLIA [id number] [place] [address] [place] Creatinine [Mass/Vol] 0.64 mg/dL Normal 0.58-0.96 [facility] Comment on above: Order Comment: Speci men Type: BLOOD SPECIMENOrdering Facility: [facility] Address: [address] [place] [address] Performed By: #### 2 4321-2 ####[facility]ITALNCLIA [id number] [place] [address] [place] eGFRcr SerPlBld CKD-EPI 2020 103 mL/min/1.73m??? Normal >=60 [facility] Comment on above: Order Comment: Sg león Type: BLOOD SPECIMENOrdering Facility: [facility] Address: [address] [place] [address] Result Comment: Marilee mated Glomerular Filtration Rate [...] actual GFR. Performed By: #### 2 4321-2 ####[facility] HOSPITALBALDEVGARFIELD MEMORIAL [facility] [id number] [place] [address] [place] Glucose [Mass/Vol] 83 mg/dL Normal 74-99 [facility] Comment on above: Order Comment: Sg león Type: BLOOD SPECIMENOrdering Facility: [facility] Address: [address] [place] [address] Result Comment: The [place] Diabetes Association (ADA) provides guidance for cutoff [...] Standards of Medical Care in Diabetes 2016, [place] [employer] Association. Diabetes Care. 2016.39(Suppl 1). Performed By: #### 2 4321-2 ####[facility] HOSPITALREINA [id number] [place] [address] [place] Potassium [Moles/Vol] 4.6 mmol/L Normal 3.7-5.1 [facility] Comment on above: Order Comment: Speci men Type: BLOOD SPECIMENOrdering Facility: [facility] Address: [address] [place] [address] Performed By: #### 2 4321-2 ####[facility] [place] KONSTANTIN [id number] [address] [place] Sodium [Moles/Vol] 139 mmol/L Normal 136-144 [facility] Comment on above: Order Comment: Speci men Type: BLOOD SPECIMENOrdering Facility: [facility] Address: [address] [place] [address] Performed By: #### 2 4321-2 ####[facility] KONSTANTIN [id number] [address] [place] Urea nitrogen [Mass/Vol] 6 mg/dL Low 7-21 [facility] Comment on above: Order Comment: Speci men Type: BLOOD SPECIMENOrdering Facility: [facility] Address: [address] [place] [address] Performed By: #### 2 4321-2 ####[facility] KRISTOPHERKYRIELIA [id number] [address] [facility] CNOVon 04-09-2025 CNOV Office Visit (OBGYWM ) SANTOS ALLAN ([id number]) 1965 F Date Time Provider Department 04/09/25 [...] No c (more content not included)... Normal [facility] HISTORY PHYSICALon HISTORY PHYSICAL HNO ID: [id number] Author: ASH CHOWDHURY MD Service: ? Author [...] EXAMINATION: TRA (more content not included)... Normal [facility] MR/BMS.BPon 04-05-2025 MR/BMS.[facility] [address] [facility], [address] [address] OFFICE VISIT Date of Service: 04/05/25 MR#: [id number] Acct: [id number] Name: SANTOS ALLAN FRANCI Rep #: [id number] : 1965 Provider: Dr. Josue Melgoza se, DO Age/Sex: 59/F Location[place] [facility] [place] [facility] [place] Status: Signed Intake Vital Signs 12/07/24 15:58 [...] edibles, paul (more content not included)... Normal [facility] Basic metabolic 2000 panelon 03-30-2025 Anion gap [Moles/Vol] 15 mmol/L Normal 8-15 [facility] Comment on above: Order Comment: Speci men Type: BLOOD SPECIMENOrdering Facility: [facility] Address: [address] [place] [address] Performed By: #### 2 4321-2 ####[facility] LABCLIA [id number] [place] [address] [place] Calcium [Mass/Vol] 9.4 mg/dL Normal 8.5-10.2 [facility] Comment on above: Order Comment: Speci men Type: BLOOD SPECIMENOrdering Facility: [facility] Address: [address] [place] [address] Performed By: #### 2 4321-2 ####[facility]CL[facility] [id number] [place] [address] [place] Chloride [Moles/Vol] 95 mmol/L Low 98-107 [facility] Comment on above: Order Comment: Speci men Type: BLOOD SPECIMENOrdering Facility: [facility] Address: [address] [place] [address] Performed By: #### 2 4321-2 ####[facility]CLIA [id number] [place] [id number] [place] CO2 [Moles/Vol] 27 mmol/L Normal 22-30 [facility] Comment on above: Order Comment: Speci men Type: BLOOD SPECIMENOrdering Facility: [facility] Address: [address] [place] [address] Performed By: #### 2 4321-2 ####[facility] LABIA [id number] [address] [address] [place] Creatinine [Mass/Vol] 0.57 mg/dL Low 0.58-0.96 [facility] Comment on above: Order Comment: Speci men Type: BLOOD SPECIMENOrdering Facility: [facility] Address: [address] [place] [address] Performed By: #### 2 4321-2 ####[facility] LABIA [id number] [place] [address] [place] eGFRcr SerPlBld CKD-EPI 2020 106 mL/min/1.73m??? Normal >=60 [facility] Comment on above: Order Comment: Speci men Type: BLOOD SPECIMENOrdering Facility: [facility] Address: [address] [place] [address] Result Comment: Marilee mated Glomerular Filtration Rate [...] actual GFR. Performed By: #### 2 4321-2 ####[facility]CLIA [id number] [place] [id number] [place] Glucose [Mass/Vol] 82 mg/dL Normal 74-99 [facility] Comment on above: Order Comment: Speci men Type: BLOOD SPECIMENOrdering Facility: [facility] Address: [address] [place] [address] Result Comment: The [place] Diabetes Association (ADA) provides guidance for cutoff [...] Standards of Medical Care in Diabetes 2016, [place] Diabetes Association. Diabetes Care. 2016.39(Suppl 1). Performed By: #### 2 4321-2 ####[facility] [id number] [place] [address] [place] Potassium [Moles/Vol] 2.8 mmol/L Low 3.7-5.1 [facility] Comment on above: Order Comment: Speci men Type: BLOOD SPECIMENOrdering Facility: [facility] Address: [address] [place] [address] Performed By: #### 2 4321-2 ####[facility] LABIA [id number] [place] [id number] [place] Sodium [Moles/Vol] 137 mmol/L Normal 136-144 [facility] Comment on above: Order Comment: Sg león Type: BLOOD SPECIMENOrdering Facility: [facility] Address: [address] [place] [address] Performed By: #### 2 1-2 ####[facility] LABIA [id number] [place] [phone] [place] Urea nitrogen [Mass/Vol] 4 mg/dL Low 7-21 [facility] Comment on above: Order Comment: Vondai men Type: BLOOD SPECIMENOrdering Facility: [facility] Address: [address] [place] [address] Performed By: #### 2 4321-2 ####[facility] LABIA [id number] [place] [id number] [place] CNOVon 03-30-2025 CNOV Office Visit (INTMWS ) SANTOS ALLAN ([id number]) 1965 F Date Time Provider Department 03/30/25 7:00 AM FIOR ALVAREZ INTFRANCA During your visit today, we recorded the following information about you: Temperature Pulse Respiration Blood pressure 98.2 degrees 76/minute 18/minute 102/70 Weight Height 80.3 kg 1.676 m Fior Alvarez APRN.[facility] 03/30/2025 10:05 AM Signed CC: No chief [...] PFRMD 03/18/2016 (more content not included)... Normal [facility] CNOVon 03-28-2025 CNOV Office Visit (NEMOWS ) SANTOS ALLAN ([id number]) 1965 F Date Time Provider Department 03/28/25 4:00 PM LUZ MEEKS During your visit today, we recorded the following information about you: Pulse Respiration Blood pressure Weight 81/minute 16/minute 105/74 79.5 kg Wendy Tejada LPN 03/28/2025 4:31 PM Signed Luz Meeks PA-C 03/28/2025 4:31 PM Signed I have [facility] Name: Santos Weygandt Age: [...] a follow-up with Luz as well at [facility]. I spent a total of 35 minutes on the date of the service which included preparing to see the patient, [id number] patient care, completing clinical documentation, obtaining and/or [...] 39.9 in (more content not included)... Normal [facility] Miguel 03-28-2025 MICKY Telephone (OBGYWM) SANTOS ALLAN ([id number]) 1965 F Date Time Provider Department 03/28/25 ASH CHOWDHURY During your visit today, we recorded the following information about you: Christofer Moore RN 03/28/2025 1:10 PM Signed Patient scheduled for hysteroscopy [facility] on 04/20/25. Calling because she has MRI [...] Fully Assessed Reason for Visit: Patient Question [2667] Prescriptions as of 04/02/2025 - ARIPiprazole (ABILIFY) [...] Encounter Status:Closed by CHRISTOFER MOORE on 04/02/25 [facility] CNOVmilo 03-12-2025 CNOV Office Visit (INTMWS ) SANTOS ALLAN ([id number]) 1965 F Date Time Provider Department 03/12/25 [...] tartrate, shor (more content not included)... Normal [facility] L/S Spine Bending Flex/[place] 03-08-2025 L/S Spine Bending Flex/Ext [facility] Imaging Services [address] [place], [place] [id number] L/S Spine Bending Flex/Ext MR#: [id number] Acct: [id number] Name: SANTOS ALLAN FRANCI Rep #: [id number] : 1965 F 59 From: Fredrick Keating MD PCP: Status: DEP AMB Study: L/S Spine Bending Flex/Ext Date of Exam: 03/08 Exam# [id number] Ordering Dr: Saundra Randle EXAM: XR Lumbosacral [...] 2. Degenerative changes as above. Reading Location: [facility] CC: PHILL Vasquez Senior Application Security Consultant: Signed Normal [facility] Orthopedic Visit Reporton Orthopedic Visit Report [facility] [address] [place] [address] OFFICE VISIT Date of Service: 03/08/25 MR#: [id number] Acct: [id number] Name: SANTOS ALLAN FRANCI Rep #: [id number] : 1965 Provider: PHILL Vasquez Age/Sex: 59/F Location: [facility] [place] Status: Signed Intake Vital Signs 12/15/24 08:20 [...] ibuprofen use. (more content not included)... Normal [facility] Bacteria Ur Culton 5 Bacteria identified Cx [...] , Intermediate >32 , Resistant >64 Abnormal [facility] Comment on above: Performed By: #### 6 30-4 ####[facility]CLIA [id number] [place] [id number] [facility] CNOVon 03-07-2025 CNOV Office Visit (INTMWS ) SANTOS ALLAN ([id number]) 1965 F Date Time Provider Department 03/07/25 8:00 AM JACQUIE CLARKE INTMWS During your visit today, we recorded the following information about you: Temperature Pulse Respiration Blood pressure 97.5 degrees 84/minute 16/minute 120/78 Weight 82.4 kg Jacquie Clarke, FORENSIC SPECIALIST.LEAD ENGINEER 03/07/2025 8:28 AM Signed CC: Patient presents with: Abdominal Pain: Lower abdomen x 2 days HPI Recording using ambient B2Brev software for draft documentation of the visit was discussed with the patient/authorized mill representative; all questions welcomed and answered. Patient/authorized mill representative agreed to proceed Santos Allan is [...] mg by (more content not included)... Normal [facility] UA DIP, URINE (POC)on 2024 BILIRUBIN UA (POCT) Negative Negative [facility] CLARITY UA (POCT) Clear [facility] COLOR UA (POCT) Yellow [facility] GLUCOSE UA (POCT) Negative Negative mg/dL [facility] Hemoglobin Ql (U) Moderate Abnormal Negative [facility] Interpretation and review of laboratory results Abnormal [facility] KETONE UA (POCT) Negative Negative mg/dL [facility] LEUKOCYTES UA (POCT) Large Abnormal Negative [facility] NITRITE UA (POCT) Negative Negative [facility] PH UA (POCT) 6 4.5 - 8.0 [facility] Protein Ql (U) Negative Negative mg/dL [facility] SPECIFIC GRAVITY UA (POCT) 1.01 1.005 - 1.030 [facility] UROBILINOGEN UA (POCT) 0.2 Normal E.U./dL [facility] Location:[address], [address] [place] [address] POINT OF CARE [facility] ALBUMIN/CREATININE RATIO, UR INEon 03-02-2025 Albumin DL <= 20 mg/L (U) [Mass/Vol] 52.8 mg/L Normal [facility] Comment on above: Order Comment: Speci men Type: URINE SPECIMENOrdering Facility: [facility] Address: [address] [place] [address] Performed By: #### U ACR ####[facility] LABCLIA [id number] [place] [address] [place] Albumin/Creatinine (U) [Mass ratio] 88 mg/g High <30 [facility] Comment on above: Order Comment: Speci men Type: URINE SPECIMENOrdering Facility: [facility] Address: [address] [place] [address] Result Comment: Adul t Male and Female Nephrotic Criteria: <30 mg/g is considered normal to mildly increased 30-300 mg/g is considered moderately increased >300 mg/g is considered severely increased KDIGO. (2013). KDIGO 2012 Clinical Practice Guideline for the Evaluation and Management of Chronic Kidney Disease. Official Journal of the International Society of Nephrology, 3(1), 1-150. Performed By: #### U ACR ####[facility]CLIA [id number] [address] [address] [place] Creatinine (U) [Mass/Vol] 60.3 mg/dL Normal 20.0-300.0 [facility] Comment on above: Order Comment: Speci men Type: URINE SPECIMENOrdering Facility: [facility] Address: [address] [place] [address] Performed By: #### U ACR ####[facility] LABIA [id number] [place] [phone] [place] Lipid 1996 panelon 5 Cholesterol [Mass/Vol] 175 mg/dL Normal <200 [facility] Comment on above: Order Comment: Speci men Type: BLOOD SPECIMENOrdering Facility: [facility] Address: [address] [place] [address] Result Comment: <200 mg/dL, Desirable 200-239 mg/dL, Borderline high >239 mg/dL, High Performed By: #### 2 4331-1, 3016-3 ####[facility] LABIA [id number] [place] [address] [place] Cholesterol in HDL [Mass/Vol] 46 mg/dL Normal >39 [facility] Comment on above: Order Comment: Speci men Type: BLOOD SPECIMENOrdering Facility: [facility] Address: [address] [place] [address] Result Comment: 40-5 9 mg/dL, Acceptable >59 mg/dL, High: Negative risk factor for coronary heart disease <40 mg/dL, Low: Positive risk factor for coronary heart disease Performed By: #### 2 4331-1, 3016-3 ####[facility]CLIA [id number] [place] [id number] [place] Cholesterol in LDL [Mass/Vol] 107 mg/dL High <100 [facility] Comment on above: Order Comment: Speci men Type: BLOOD SPECIMENOrdering Facility: [facility] Address: [address] [place] [address] Result Comment: <100 mg/dL, Optimal 100-129 mg/dL, Near optimal/above optimal 130-159 mg/dL, Borderline high 160-189 mg/dL, High >189 mg/dL, Very high Secondary prevention optimal LDL Cholesterol levels are recommended to be <70 mg/dL LDL cholesterol is calculated using the Lopez-NIH equation. Performed By: #### 2 4331-1, 6-3 ####[facility]CL[facility] [id number] [address] [address] [place] Cholesterol in LDL/Cholesterol in HDL [Mass ratio] 2.33 {ratio} Normal <2.54 [facility] Comment on above: Order Comment: Speci men Type: BLOOD SPECIMENOrdering Facility: [facility] Address: [address] [place] [address] Result Comment: Refe rence: 1. National Cholesterol Education Program ATP III Guideline At-A-Glance Quick Desk Reference: National Heart, Lung, and Blood [place]. National Institutes of Health. 2001: NIH Publication No. 01-3305. 2. An International Atherosclerosis Society position paper: global recommendations for the management of dyslipidemia: executive summary, Atherosclerosis. 2014: 232(2):410-413. Performed By: #### 2 4331-1, 3015-3 ####[facility] LABIA [id number] [address] [address] [place] Cholesterol in VLDL [Mass/Vol] 20 mg/dL Normal <30 [facility] Comment on above: Order Comment: Vondai men Type: BLOOD SPECIMENOrdering Facility: [facility] Address: [address] [place] [address] Performed By: #### 2 4331-1, 3015-3 ####[facility] LABIA [id number] [address] [address] [place] Cholesterol non HDL [Mass/Vol] 129 mg/dL Normal <130 [facility] Comment on above: Order Comment: Vondai romelia Type: BLOOD SPECIMENOrdering Facility: [facility] Address: [address], [place] [address] Result Comment: <130 mg/dL, Optimal 130-159 mg/dL, Near optimal/above optimal 160-189 mg/dL, Borderline high 190-219 mg/dL, High >219 mg/dL, Very high Secondary prevention optimal non HDL Cholesterol levels are recommended to be <100 mg/dL Performed By: #### 2 4331-1, 3015-3 ####[facility]CL[facility] [id number] [facility] [address] [place] [address] [place] Cholesterol.total/C holesterol in HDL [Mass ratio] 3.80 {ratio} Normal <5.10 [facility] Comment on above: Order Comment: Speci men Type: BLOOD SPECIMENOrdering Facility: [facility] Address: [address] [place] [id number] Performed By: #### 2 4331-1, 3 ####[facility]CLIA [id number] [facility] [address] [place] [address] [place] FASTING TIME 12 hrs Normal [facility] Comment on above: Order Comment: Speci men Type: BLOOD SPECIMENOrdering Facility: [facility] Address: [address] [place] [id number] Performed By: #### 2 4331-1, 3 ####[facility] LABCLIA [id number] [address] [place] [address] [place] Triglyceride [Mass/Vol] 122 mg/dL Normal <150 [facility] Comment on above: Order Comment: Speci men Type: BLOOD SPECIMENOrdering Facility: [facility] Address: [address] [place] [address] Result Comment: <150 mg/dL, Normal 150-199 mg/dL, Borderline high 200-499 mg/dL, High >499 mg/dL, Very high Performed By: #### 2 4331-1, 3015-3 ####[facility]CLIA [id number] [facility] [address] [place] [address] [place] Plastic Surgery Visit Report on 03-02-2025 Plastic Surgery Visit Report [facility] Plastic Reconstructive Surgery [address], [address] [place], [place] [id number] OFFICE VISIT Date of Service: 03/02/25 MR#: [id number] Acct: [id number] Name: SANTOS ALLAN Rep #: [id number] : 1965 Provider: Dr. Denver Casillas MD Age/Sex: 59/F Location: [facility] Status: Signed Intake Vital Signs 12/15/24 08:20 [...] Op Diagnoses Mucous cyst of finger M67.449 [facility] Medical History Wears glasses Thyroid disease Back [...] History (Reviewed (more content not included)... Normal [facility] TSH SerPl-aCncon 03-02-2025 TSH Qn 0.378 m[IU]/L Normal 0.270-4.200 [facility] Comment on above: Order Comment: Speci men Type: BLOOD SPECIMENOrdering Facility: [facility] Address: [address] [place] [address] Performed By: #### 2 4331-1, 3016-3 ####[facility]CLIA [id number] [place] [address] [place] EMG(NEURO/NI)on 02-09-2025 Results can be seen in attached scanned documents. If you are a patient reviewing this test result, call the doctor who ordered the test with any questions. [facility] BACTERIAL VAGINOSIS NAATon 0 02-08-2025 Lactobacillus crispatus+gasseri+j ensenii + Gardnerella vaginalis + Atopobium vaginae rRNA JUWAN+probe Ql (Vag fld) Not detected Normal Not detected [facility] Comment on above: Order Comment: Speci men Type: SWABOrdering Facility: [facility] Address: [address] [place] [address] Performed By: #### C VTV, BVAMP ####[facility]CL[facility] [id number] [place] [address] [place] JOSEE/TRICHOMONAS NAATon 0 02-08-2025 C. glabrata RNA JUWAN+probe Ql (Vag fld) Not detected Normal Not detected [facility] Comment on above: Order Comment: Speci men Type: SWABOrdering Facility: [facility] Address: [address] [place] [address] Performed By: #### C VTV, BVAMP ####[facility] [id number] [address] [place] Josee sp DNA JUWAN+probe Ql (Vag fld) Not detected Normal Not detected [facility] Comment on above: Order Comment: Speci men Type: SWABOrdering Facility: [facility] Address: [address] [place] [address] Result Comment: The Josee species group target includes C. albicans, C. tropicalis, C. parapsilosis, and C. dubliniensis. Performed By: #### C VTV, BVAMP ####[facility] LABIA [id number] [address] [place] T. vaginalis DNA JUWAN+probe Ql (Unsp spec) Not detected Normal Not detected [facility] Comment on above: Order Comment: Speci men Type: SWABOrdering Facility: [facility] Address: [address] [place] [address] Performed By: #### C VTV, BVAMP ####[facility]IA [id number] [place] [address] [place] CNOVon 02-08-2025 CNOV Office Visit (OBGYWM ) SANTOS ALLAN ([id number]) 1965 F Date Time Provider Department 02/08/25 2:45 PM RICHIE NEWMAN During your visit today, we recorded the following information about you: Blood pressure Weight 118/78 82.1 kg Richie Newman APRN.LEAD ENGINEER 02/08/2025 3:29 PM Signed Santos Allan is [...] Living0 SAB0 IAB0 Ectopic0 Multiple0 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 Normal [facility] HIGH RISK HUMAN PAPILLOMA LUIGI (HPV), PCR FOR DETECTION AND GENOTYPINGon 02-08-2025 HPV 16 Ag Ql (Unsp spec) Not detected Normal Not detected [facility] Comment on above: Order Comment: Speci men Type: FLUID SPECIMENOrdering Facility: [facility] Address: [address] [place] [address] Performed By: #### H PVHRT ####[facility] [id number] [place] [address] [place] HPV 18 Ag Ql (Unsp spec) Not detected Normal Not detected [facility] Comment on above: Order Comment: Speci men Type: FLUID SPECIMENOrdering Facility: [facility] Address: [address] [place] [address] Performed By: #### H PVHRT ####[facility] [id number] [place] [address] [place] HPV 31+33+35+39+45+51+5 2+56+58+59+66+68 DNA JUWAN+probe Ql (Cvx) Not detected Normal Not detected [facility] Comment on above: Order Comment: Speci men Type: FLUID SPECIMENOrdering Facility: [facility] Address: [address] [place] [address] Result Comment: High Risk HPV Other Type includes HPV types 31, 33, 35, 39, 45, 51, 52, 56, 58, 59, 66 and 68. Performed By: #### H PVHRT ####[facility] [id number] [address] [place] [address] [place] PAP TESTon 02-08-2025 ADEQUACY Normal [facility] Comment on above: Order Comment: Speci men Type: FLUID SPECIMENOrdering Facility: [facility] Address: [address] [place], [place] [address] Result Comment: Sati sfactory for interpretation. No endocervical component Performed By: #### L [id number] ####[facility] [id number] [address] [place] [address] [place] CASE REPORT Normal [facility] Comment on above: Order Comment: Speci men Type: FLUID SPECIMENOrdering Facility: [facility] Address: [address] [place] [address] Result Comment: Gyne cologic Cytology Report Case: [id number] Authorizing Provider: Richie Newman APRN.LEAD ENGINEER Collected: 02/08/2025 03:47 PM Ordering Location: OB/Gynecology Received: 02/08/2025 04:53 PM First Screen: Andrew Richardson, DWAYNE, ASCP Specimen: Pap Test, ThinPrep, Cervix Performed By: #### L [id number] ####[facility] [id number] [address] [place] [address] [place] CLINICAL HISTORY, CYTOLOGY, RADIO REPAIR TEACHER Post Menopausal Normal [facility] Comment on above: Order Comment: Speci men Type: FLUID SPECIMENOrdering Facility: [facility] Address: [address] [place], [place] [address] Performed By: #### L [id number] ####[facility] [id number] [address] [place] [address] [place] FINAL PERFORMING LAB Normal [facility] Comment on above: Order Comment: Speci men Type: FLUID SPECIMENOrdering Facility: [facility] Address: [address] [place] [address] Result Comment: Tech nical component, pharmacy intern screening performed at: [facility], [address] [place], [place] [address] CLIA: [id number] Diagnostic interpretation performed at: [facility], [address] [place], [place] [address] CLIA# [id number] Plate Sensitizer: Justus Pena MD Performed By: #### L [id number] ####[facility] [id number] [place] [id number] [place] INTERPRETATION, CYTOLOGY, RADIO REPAIR TEACHER Normal [facility] Comment on above: Order Comment: Speci men Type: FLUID SPECIMENOrdering Facility: [facility] Address: [address] [place] [address] Result Comment: Nega tive for intraepithelial lesion or malignancy. at 1117 EDT Performed By: #### L [id number] ####[facility] [facility] LABIA [id number] [address] [place] PAP DISCLAIMER COMMENT The Pap Smear is a screening test for cervical cancer. False negative results occur with all screening tests, emphasizing the need for rescreening at recommended intervals, and clinical correlation. Normal [facility] Comment on above: Order Comment: Speci men Type: FLUID SPECIMENOrdering Facility: [facility] Address: [address] [place] [address] Performed By: #### L [id number] ####[facility] LABCLIA [id number] [place] [id number] [place] PAP CHURN OPERATOR COMMENT This specimen has be en analyzed by the FDA-approved [employer] System, which uses digital imaging and an enhanced artificial intelligence image analysis algorithm to identify rinaldi of interest on the microscopic slide, to assist the commercial or institutional cleaner and pathologist in evaluating cells on ThinPrep Pap tests. Following analysis, rinaldi of interest on the microscopic slide selected by the algorithm are reviewed by a commercial or institutional cleaner. If a sample requires hierarchical review, the pathologist will review the same rinaldi of interest selected by the algorithm prior to final interpretation. Normal [facility] Comment on above: Order Comment: Speci men Type: FLUID SPECIMENOrdering Facility: [facility] Address: [address] [place] [address] Performed By: #### L [id number] ####[facility] LABCLIA [id number] [place] [address] [place] No Panel Informationon 02-06 IMPRESSION: Uterine fibroids. Ovaries not identified. Senior Application Security Consultant: SKYLER Transcribe Date/Time: Feb 06 2025 1:45P Dictated by : ANAND LARA MD This examination was interpreted and the report reviewed and electronically signed by: ANAND LARA MD on Feb 06 2025 1:50PM [facility] DIVISION OF RADIOLOGY Radiology Study observation (narrative) [facility] No Panel InformationOrdered By: Ccf Provider on 02-06-2025 [facility] US FEMALE PELVIS TRANSABD LT Don [...] and stored in a permanent archive. MQ: [facility]_2021 COMPARISON: CT abdomen pelvis on 01/26/2025 [...] physiologic. IMPRESSION: Uterine fibroids. Ovaries not identified. Senior Application Security Consultant: [email or web address] Transcribe Date/Time: Feb 06 2025 1:45P Dictated by : ANAND LARA MD This examination was interpreted and the report reviewed and electronically signed by: ANAND LARA MD on Feb 06 2025 1:50PM EST [id number] Normal [facility] US FEMALE PELVIS TRANSVAGon 02-06-2025 US FEMALE [...] and stored in a permanent archive. MQ: [facility]_2021 COMPARISON: CT abdomen pelvis on 01/26/2025 [...] physiologic. IMPRESSION: Uterine fibroids. Ovaries not identified. Senior Application Security Consultant: [employer] Transcribe Date/Time: Feb 06 2025 1:45P Dictated by : ANAND LARA MD This examination was interpreted and the report reviewed and electronically signed by: ANAND LARA MD on Feb 06 2025 1:50PM EST [id number] Normal [facility] US Pelvis limitedon 02-07-20 * * *Final [...] and stored in a permanent archive. MQ: [facility]_2021 COMPARISON: CT abdomen pelvis on 01/26/2025 [...] is likely physiologic. DIVISION OF RADIOLOGY Provider, [facility] - 02/06/2025 * * *Final Report* * * DATE OF EXAM: Feb 06 2025 10:31AM U 1059 - US FEMALE PELVIS [employer] / PROCEDURE REASON: multiple diagnoses * * * * Physician Interpretation * * * * EXAMINATION: TRANSVAGINAL AND LIMITED TRANSABDOMINAL FEMALE PELVIC ULTRASOUND CLINICAL HISTORY: Uterine fibroid. TECHNIQUE: Sonography of the pelvis was performed by transvaginal and transabdominal (limited) techniques. Images were obtained and stored in a permanent archive. MQ: [facility]_2021 COMPARISON: CT abdomen pelvis on 01/26/2025 [...] IMPRESSION IMPRESSION: Uterine fibroids. Ovaries not identified. Senior Application Security Consultant: SKYLER Transcribe Date/Time: Feb 06 2025 1:45P Dictated by : ANAND LARA MD This examination was interpreted and the report reviewed and electronically signed by: ANAND LARA MD on Feb 06 2025 1:50PM [facility] US Pelvis transvaginalon * * *Final Report* [...] is likely physiologic. DIVISION OF RADIOLOGY Provider, [facility] - 02/06/2025 * * *Final Report* [...] IMPRESSION IMPRESSION: Uterine fibroids. Ovaries not identified. Senior Application Security Consultant: [facility] Transcribe Date/Time: Feb 06 2025 1:45P Dictated by : ANAND LARA MD This examination was interpreted and the report reviewed and electronically signed by: ANAND LARA MD on Feb 06 2025 1:50PM [facility] CT ABD/PEL W IVCONon -16-[address] ABD/PEL W IVCON * * *Final Report* * * DATE OF EXAM: Jan 26 2025 8:12AM [facility] [place] [place] ABD/PEL W IVCON / [...] Recommendation: US FEMALE PELVIS NON-OB NON TORSION ([id number]) Time Frame: as soon as possible, when the patient's clinical state allows. COMMUNICATION: Results will be communicated with the ordering provider via [employer] staff message or phone message by [employer] within 2 business days of report finalization. --END OF FINDING-- Senior Application Security Consultant: SKYLER Transcribe Date/Time: Jan 26 2025 8:25A Dictated by : IZA JOSEPH MD This examination was interpreted and the report reviewed and electronically signed by: IZA JOSEPH MD on Jan 26 2025 8:36AM EST [id number] ACTIONABLE Invalid Interpretation Code [facility] CT Abdomen and Pelvis W cont rast IVOrdered By: Ccf Provider on 01-26-2025 Interpretation and review of laboratory results Abnormal [facility] Radiology Result ACTIONABLE Abnormal [facility] Comment on above: This report contains an [...] contact your provider for the next steps. [facility] CT Abdomen and Pelvis W cont rast Marie 01-26-2025 IMPRESSION: Nonspecific mild bladder wall thickening. Correlate with urinalysis. Suspected 3.0 cm uterine body fibroid. Additionally the vagina is fluid-filled. Findings can be further evaluated with pelvic ultrasound. ACTIONABLE RESULT: FOLLOW-UP Acuity: Actionable Findings: Female reproductive tract (pelvis, adnexa) Routing code: [email or web address] Recommendation: US FEMALE PELVIS NON-OB NON TORSION ([id number]) Time Frame: as soon as possible, when the patient's clinical state allows. COMMUNICATION: Results will be communicated with the ordering provider via [employer] staff message or phone message by [employer] within 2 business days of report finalization. --END OF FINDING-- Senior Application Security Consultant: SKYLER Transcribe Date/Time: Jan 26 2025 8:25A Dictated by : IZA JOSEPH MD This examination was interpreted and the report reviewed and electronically signed by: IZA JOSEPH MD on Jan 26 2025 8:36AM [facility] RAD[facility] * * *Final Report* * * DATE OF EXAM: Jan 26 2025 8:12AM [facility] [place] CT ABD/PEL W IVCON / [...] and/or scarring. Localizer images: No additional findings. [employer] Provider, [facility] [employer] [facility] - 01/26/2025 * * *Final Report* * * DATE OF EXAM: Jan 26 2025 8:12AM [facility] [place] - CT ABD/PEL W IVCON / [...] Recommendation: US FEMALE PELVIS NON-OB NON TORSION ([id number]) Time Frame: as soon as possible, when the patient's clinical state allows. COMMUNICATION: Results will be communicated with the ordering provider via [employer] staff message or phone message by [employer] within 2 business days of report finalization. --END OF FINDING-- Senior Application Security Consultant: PSCB Transcribe Date/Time: Jan 26 2025 8:25A Dictated by : IZA JOSEPH MD This examination was interpreted and the report reviewed and electronically signed by: IZA JOSEPH MD on Jan 26 2025 8:36AM EST [facility] Radiology Study observation (narrative) [facility] Basic metabolic 2000 panelOr dered By: Meche Pratt on 01-25-2025 Anion gap [Moles/Vol] 13 mmol/L 8 - 15 mmol/L [facility] Calcium [Mass/Vol] 9.7 mg/dL 8.5 - 10. 2 mg/dL [facility] Chloride [Moles/Vol] 100 mmol/L 98 - 107 mmol/L [facility] CO2 [Moles/Vol] 28 mmol/L 22 - 30 mmol/L [facility] Creatinine [Mass/Vol] 0.52 mg/dL Low 0.58 - 0.96 mg/dL [facility] GFR/1.73 sq M.predicted among non-blacks MDRD (S/P/Bld) [Vol rate/Area] 109 mL/min/{1.73_m2} - PINF [facility] Comment on above: Estimated Glomerular Filtration [...] [Mass/Vol] 97 mg/dL 74 - 99 mg/dL [facility] Comment on above: The [place] Diabete s Association (ADA) provides guidance for [...] Standards of Medical Care in Diabetes 2016, [place] Diabetes Association. Diabetes Care. 2016.39(Suppl 1). Interpretation and review of laboratory results Abnormal [facility] Potassium [Moles/Vol] 3.6 mmol/L Low 3.7 - 5.1 mmol/L [facility] Sodium [Moles/Vol] 141 mmol/L 136 - 144 mmol/L [facility] Urea nitrogen [Mass/Vol] 5 mg/dL Low 7 - 21 mg/dL [facility] Basic metabolic 2000 panelon 01-25-2025 Anion gap [Moles/Vol] 13 mmol/L Normal 8-15 [facility] Comment on above: Order Comment: Speci men Type: BLOOD SPECIMENOrdering Facility: [facility] Address: [facility] [place] [address] Performed By: #### 2 4321-2 ####[facility] HOSPITALDl [id number] [place] [address] [place] Calcium [Mass/Vol] 9.7 mg/dL Normal 8.5-10.2 [facility] Comment on above: Order Comment: Speci men Type: BLOOD SPECIMENOrdering Facility: [facility] Address: [address] [place] [address] Performed By: #### 2 4321-2 ####[facility] HOSPITALNCLIA [id number] [place] [address] [place] Chloride [Moles/Vol] 100 mmol/L Normal 98-107 [facility] Comment on above: Order Comment: Speci men Type: BLOOD SPECIMENOrdering Facility: [facility] Address: [address] [place] [address] Performed By: #### 2 4321-2 ####[facility] HOSPITALNCLIA [id number] [place] [address] [place] CO2 [Moles/Vol] 28 mmol/L Normal 22-30 [facility] Comment on above: Order Comment: Speci men Type: BLOOD SPECIMENOrdering Facility: [facility] Address: [address] [place] [address] Performed By: #### 2 4321-2 ####[facility] HOSPITALNCLIA [id number] [place] [address] [place] Creatinine [Mass/Vol] 0.52 mg/dL Low 0.58-0.96 [facility] Comment on above: Order Comment: Speci men Type: BLOOD SPECIMENOrdering Facility: [facility] Address: [address] [place] [address] Performed By: #### 2 4321-2 ####[facility] HOSPITALNCLIA [id number] [place] [address] [place] Creatinine and Glomerular filtration rate.predicted panel (S/P/Bld) 109 mL/min/1.73m??? Normal >=60 [facility] Comment on above: Order Comment: Speci men Type: BLOOD SPECIMENOrdering Facility: [facility] Address: [address] [place] [address] Result Comment: Marilee mated Glomerular Filtration Rate [...] actual GFR. Performed By: #### 2 4321-2 ####[facility] [id number] [place] [address] [place] Glucose [Mass/Vol] 97 mg/dL Normal 74-99 [facility] Comment on above: Order Comment: Sg león Type: BLOOD SPECIMENOrdering Facility: [facility] Address: [address] [place] [address] Result Comment: The [place] Diabetes Association (ADA) provides guidance for cutoff [...] Standards of Medical Care in Diabetes 2016, [place] Diabetes Association. Diabetes Care. 2016.39(Suppl 1). Performed By: #### 2 4321-2 ####[facility] [id number] [place] [address] [place] Potassium [Moles/Vol] 3.6 mmol/L Low 3.7-5.1 [facility] Comment on above: Order Comment: Sg león Type: BLOOD SPECIMENOrdering Facility: [facility] Address: [address] [place] [address] Performed By: #### 2 4321-2 ####[facility] [id number] [place] [address] [place] Sodium [Moles/Vol] 141 mmol/L Normal 136-144 [facility] Comment on above: Order Comment: Speci men Type: BLOOD SPECIMENOrdering Facility: [facility] Address: [address] [place] [address] Performed By: #### 2 4321-2 ####[facility] [id number] [address] [place] Urea nitrogen [Mass/Vol] 5 mg/dL Low 7-21 [facility] Comment on above: Order Comment: Speci men Type: BLOOD SPECIMENOrdering Facility: [facility] Address: [address] [place] [address] Performed By: #### 2 4321-2 ####[facility] [id number] [place] [address] [place] CBC W Auto Differential pane l (Bld)on 01-25-2025 Basophils (Bld) [#/Vol] 0.05 10*3/uL [facility] Basophils/100 WBC (Bld) 0.5 % [facility] Differential cell count method Nom (Bld) Auto [facility] Eosinophils (Bld) [#/Vol] [facility] Eosinophils/100 WBC (Bld) 0 % [facility] Erythrocyte distribution width (RBC) [Ratio] 12.6 % 11.5 - 15.0 % [facility] Hematocrit (Bld) [Volume fraction] 40.5 % 36.0 - 46.0 % [facility] Hemoglobin (Bld) [Mass/Vol] 13.3 g/dL 11.5 - 15.5 g/dL [facility] Immature granulocytes (Bld) [#/Vol] 0.18 10*3/uL High NINF [facility] Immature granulocytes/100 WBC (Bld) 2 % [facility] Interpretation and review of laboratory results Abnormal [facility] Lymphocytes (Bld) [#/Vol] 1.9 10*3/uL [facility] Lymphocytes/100 WBC (Bld) 20.8 % [facility] MCH (RBC) [Entitic mass] 29.8 pg 26.0 - 34.0 pg [facility] MCHC (RBC) [Mass/Vol] 32.8 g/dL 30.5 - 36.0 g/dL [facility] MCV (RBC) [Entitic vol] 90.8 fL 80.0 - 100.0 fL [facility] Monocytes (Bld) [#/Vol] 0.5 10*3/uL [facility] Monocytes/100 WBC (Bld) 5.5 % [facility] Neutrophils (Bld) [#/Vol] 6.49 10*3/uL [facility] Neutrophils/100 WBC (Bld) 71.2 % [facility] Nucleated RBC (Bld) [#/Vol] NINF [facility] Nucleated RBC/100 WBC (Bld) [Ratio] 0 % /100 WBC [facility] Platelet mean volume (Bld) [Entitic vol] 9.5 fL 9.0 - 12.7 fL [facility] Platelets (Bld) [#/Vol] 373 10*3/uL [facility] RBC (Bld) [#/Vol] 4.46 10*6/uL 3.90 - 5.2 0 m/uL [facility] WBC (Bld) [#/Vol] 9.12 10*3/uL [facility] Basophils (Bld) [#/Vol] 0.05 10*3/uL Normal <0.11 [facility] Comment on above: Order Comment: Speci men Type: BLOOD SPECIMENOrdering Facility: [facility] Address: [address] [place] [address] Performed By: #### 5 7021-8 ####[facility] [id number] [address] [facility] Basophils/100 WBC (Bld) 0.5 % Normal [facility] Comment on above: Order Comment: Speci men Type: BLOOD SPECIMENOrdering Facility: [facility] Address: [address] [place] [address] Performed By: #### 5 7021-8 ####[facility] [id number] [place] [address] [place] Differential cell count method Nom (Bld) Auto Normal [facility] Comment on above: Order Comment: Speci men Type: BLOOD SPECIMENOrdering Facility: [facility] Address: [address] [place] [address] Performed By: #### 5 7021-8 ####[facility] [id number] [place] [address] [place] Eosinophils (Bld) [#/Vol] 10*3/uL Normal <0.46 [facility] Comment on above: Order Comment: Speci men Type: BLOOD SPECIMENOrdering Facility: [facility] Address: [address] [place] [address] Performed By: #### 5 7021-8 ####[facility] [id number] [place] [address] [place] Eosinophils/100 WBC (Bld) 0.0 % Normal [facility] Comment on above: Order Comment: Speci men Type: BLOOD SPECIMENOrdering Facility: [facility] Address: [address] [place] [address] Performed By: #### 5 7021-8 ####[facility] [id number] [place] [address] [place] Erythrocyte distribution width (RBC) [Ratio] 12.6 % Normal 11.5-15.0 [facility] Comment on above: Order Comment: Speci men Type: BLOOD SPECIMENOrdering Facility: [facility] Address: [address] [place] [address] Performed By: #### 5 7021-8 ####[facility] [id number] [place] [address] [place] Hematocrit (Bld) [Volume fraction] 40.5 % Normal 36.0-46.0 [facility] Comment on above: Order Comment: Speci men Type: BLOOD SPECIMENOrdering Facility: [facility] Address: [address] [place] [address] Performed By: #### 5 7021-8 ####[facility] HOSPITALGERRY [id number] [place] [address] [place] Hemoglobin (Bld) [Mass/Vol] 13.3 g/dL Normal 11.5-15.5 [facility] Comment on above: Order Comment: Speci men Type: BLOOD SPECIMENOrdering Facility: [facility] Address: [address] [place] [address] Performed By: #### 5 7021-8 ####[facility] HOSPITALNCGARFIELD [facility] [id number] [place] [address] [place] Immature granulocytes (Bld) [#/Vol] 0.18 10*3/uL High <0.10 [facility] Comment on above: Order Comment: Speci men Type: BLOOD SPECIMENOrdering Facility: [facility] Address: [address] [place] [address] Performed By: #### 5 7021-8 ####[facility] [id number] [place] [address] [place] Immature granulocytes/100 WBC (Bld) 2.0 % Normal [facility] Comment on above: Order Comment: Speci men Type: BLOOD SPECIMENOrdering Facility: [facility] Address: [address] [place] [address] Performed By: #### 5 7021-8 ####[facility] HOSPITALNCLIA [id number] [place] [address] [place] Lymphocytes (Bld) [#/Vol] 1.90 10*3/uL Normal 1.00-4.00 [facility] Comment on above: Order Comment: Speci men Type: BLOOD SPECIMENOrdering Facility: [facility] Address: [address] [place] [address] Performed By: #### 5 7021-8 ####[facility] HOSPITALWBALDEVLIA [id number] [place] [address] [place] Lymphocytes/100 WBC (Bld) 20.8 % Normal [facility] Comment on above: Order Comment: Speci men Type: BLOOD SPECIMENOrdering Facility: [facility] Address: [address] [place] [address] Performed By: #### 5 7021-8 ####[facility] HOSPITALBALDEVLIA [id number] [place] [address] [place] MCH (RBC) [Entitic mass] 29.8 pg Normal 26.0-34.0 [facility] Comment on above: Order Comment: Speci men Type: BLOOD SPECIMENOrdering Facility: [facility] Address: [address] [place] [address] Performed By: #### 5 7021-8 ####[facility] HOSPITALREINAA [id number] [place] [address] [place] MCHC (RBC) [Mass/Vol] 32.8 g/dL Normal 30.5-36.0 [facility] Comment on above: Order Comment: Speci men Type: BLOOD SPECIMENOrdering Facility: [facility] Address: [address] [place] [address] Performed By: #### 5 7021-8 ####[facility] HOSPITALBALDEVLIA [id number] [place] [address] [place] MCV (RBC) [Entitic vol] 90.8 fL Normal 80.0-100.0 [facility] Comment on above: Order Comment: Speci men Type: BLOOD SPECIMENOrdering Facility: [facility] Address: [address] [place], [place] [address] Performed By: #### 5 7021-8 ####[facility] HOSPITALNCLIA [id number] [place] [address] [place] Monocytes (Bld) [#/Vol] 0.50 10*3/uL Normal <0.87 [facility] Comment on above: Order Comment: Speci men Type: BLOOD SPECIMENOrdering Facility: [facility] Address: [address] [place] [address] Performed By: #### 5 7021-8 ####[facility]ILDR[facility]'S HOSPITALNCA [id number] [place] [address] [place] Monocytes/100 WBC (Bld) 5.5 % Normal [facility] Comment on above: Order Comment: Speci men Type: BLOOD SPECIMENOrdering Facility: [facility] Address: [address] [place] [address] Performed By: #### 5 7021-8 ####[facility] HOSPITALNCLI [id number] [place] [address] [place] Neutrophils (Bld) [#/Vol] 6.49 10*3/uL Normal 1.45-7.50 [facility] Comment on above: Order Comment: Speci men Type: BLOOD SPECIMENOrdering Facility: [facility] Address: [address] [place] [address] Performed By: #### 5 7021-8 ####[facility]ITALA [id number] [place] [address] [place] Neutrophils/100 WBC (Bld) 71.2 % Normal [facility] Comment on above: Order Comment: Speci men Type: BLOOD SPECIMENOrdering Facility: [facility] Address: [address] [place] [address] Performed By: #### 5 7021-8 ####[facility] HOSPITALNCLIA [id number] [place] [address] [place] Nucleated RBC (Bld) [#/Vol] 10*3/uL Normal <0.01 [facility] Comment on above: Order Comment: Speci men Type: BLOOD SPECIMENOrdering Facility: [facility] Address: [address] [place] [address] Performed By: #### 5 7021-8 ####[facility] KRISTOPHERANDRADE [id number] [place] [address] [place] Nucleated RBC/100 WBC (Bld) [Ratio] 0.0 /100 WBC Normal [facility] Comment on above: Order Comment: Speci men Type: BLOOD SPECIMENOrdering Facility: [facility] Address: [address] [place] [address] Performed By: #### 5 7021-8 ####[facility]'S HOSPITALNCLIDl [id number] [place] [address] [place] Platelet mean volume (Bld) [Entitic vol] 9.5 fL Normal 9.0-12.7 [facility] Comment on above: Order Comment: Speci men Type: BLOOD SPECIMENOrdering Facility: [facility] Address: [address] [place] [address] Performed By: #### 5 7021-8 ####[facility]PITALA [id number] [place] [address] [place] Platelets (Bld) [#/Vol] 373 10*3/uL Normal 150-400 [facility] Comment on above: Order Comment: Speci men Type: BLOOD SPECIMENOrdering Facility: [facility] Address: [address] [place] [address] Performed By: #### 5 7021-8 ####[facility]ITAL[facility] [id number] [place] [address] [place] RBC (Bld) [#/Vol] 4.46 10*6/uL Normal 3.90-5.20 [facility] Comment on above: Order Comment: Speci men Type: BLOOD SPECIMENOrdering Facility: [facility] Address: [address] [place] [address] Performed By: #### 5 7021-8 ####[facility] KRISTOPHERTOWNCLIA [id number] [place] [address] [place] WBC (Bld) [#/Vol] 9.12 10*3/uL Normal 3.70-11.00 [facility] Comment on above: Order Comment: Speci men Type: BLOOD SPECIMENOrdering Facility: [facility] Address: [address] [place] [address] Performed By: #### 5 7021-8 ####[facility] KRISTOPHERTOWNCLIA [id number] [place] [id number] [place] [address] [place] CNOVon 01-25-2025 CNOV Office Visit (INTMWS ) SANTOS ALLAN ([id number]) 1965 F Date Time Provider Department 01/25/25 9:40 AM FIOR ALVAREZ During your visit today, we recorded the following information about you: Pulse Respiration Blood pressure Weight 87/minute 16/minute 134/94 84.4 kg Fior Alvarez APRN.[facility] 01/25/2025 3:30 PM Signed CC: Patient presents with: Abdominal Pain: Abdominal pain HPI Santos Allan is a 59 year old female who presents today for abdominal pain. Recording using [employer] software for draft documentation of the visit was discussed with the patient/authorized mill representative; all questions welcomed and answered. Patient/authorized mill representative agreed to proceed Lower Abdominal Pain [...] omeprazole (PRILOSEC (more content not included)... Normal [facility] UA DIP, URINE (POC)on 2024 BILIRUBIN UA (POCT) Negative Negative [facility] CLARITY UA (POCT) Clear [facility] COLOR UA (POCT) Yellow [facility] GLUCOSE UA (POCT) Negative Negative mg/dL [facility] Hemoglobin Ql (U) Negative Negative [facility] KETONE UA (POCT) Negative Negative mg/dL [facility] LEUKOCYTES UA (POCT) Negative Negative [facility] NITRITE UA (POCT) Negative Negative [facility] PH UA (POCT) 6 4.5 - 8.0 [facility] Protein Ql (U) Negative Negative mg/dL [facility] SPECIFIC GRAVITY UA (POCT) 1.01 1.005 - 1.030 [facility] UROBILINOGEN UA (POCT) 0.2 Normal E.U./dL [facility] Location:[facility], [address] [place] [address], [place], [address] [facility] POINT OF CARE [facility] Miguel 01-24-2025 CNPN Telephone (INTMWS) SANTOS ALLAN ([id number]) 1965 F Date Time Provider Department 01/24/25 ANA BOLAÑOS INTBarbWS During your visit today, we recorded the following information about you: Natasha Johns LPN 01/24/2025 2:40 PM Signed Fax PA rec'd from [employer] This was completed and faxed back to the pharmacy on the form along with records as they were asking for. Natasha Johns LPN 01/29/2025 1:43 PM Signed Prior authorization approved Payer: [employer] [facility] [phone] Note from payer: CaseId:[id number];Status:Appr radha;Review Type:Prior Auth;Coverage Start Date:01/24/2025;Coverage End Date:01/29/2026; [...] to its destination. To be filled at: [facility] [place] [address] [phone] [facility] [phone] Pt notified via my chart. Allergies As of Date: 01/24/2025 Noted Allergy Reaction GABAPENTIN 08/24/2019 7 - Swelling HYDROCODONE-ACETAMINOPHEN 08/24/2019 9 - Itching IMITREX ([facility]) 07/25/2007 Comments: Face went numb PREDNISONE 09/05/2024 1 - Mental Status Change Date Reviewed: 11/10/2024 Reviewed by: Gi Tejeda MA - Fully Assessed Reason for Visit: Insurance Authorization [1263] Prescriptions as of 01/29/2025 - phenazopyridine (PYRIDIUM) [...] 01/18/2015 03/02/2016 (more content not included)... Normal [facility] Folate SerPl-mCncon 01-23-20 25 Folate [Mass/Vol] 2.2 ng/mL Low >4.7 [facility] Comment on above: Order Comment: Speci romelia Type: BLOOD SPECIMENOrdering Facility: [facility] Address: [address] [place] [address] Performed By: #### 2 132-9, 2284-8, 2885-2 ####[facility] LABCLIA [id number] [place] [address] [place] HbA1c (Bld)on 01-22-2025 Average glucose Estimated from glycated hemoglobin (Bld) [Mass/Vol] 80 mg/dL Normal [facility] Comment on above: Order Comment: Vondai romelia Type: BLOOD SPECIMENOrdering Facility: [facility] Address: [address] [place] [address] Result Comment: eAG: (Estimated average glucose) is a calculated value from HgbA1c and is mill representative of the average blood glucose level in the last 2-3 month period. Performed By: #### 5 5454-3 ####[facility] LABCLIA [id number] [place] [id number] [place] HbA1c (Bld) [Mass fraction] 4.4 % Normal 4.3-5.6 [facility] Comment on above: Order Comment: Speci men Type: BLOOD SPECIMENOrdering Facility: [facility] Address: [address] [place] [address] Result Comment: Amer [place] Diabetes Association guidelines indicate that patients with HgbA1c in the range 5.7-6.4% are at increased risk for development of diabetes, and intervention by lifestyle modification may be beneficial. HgbA1c greater or equal to 6.5% is considered diagnostic of diabetes. Performed By: #### 5 5454-3 ####[facility] LABCLIA [id number] [address] [address] [place] PROTEIN ELECTROPHORESIS SERU M WITH MICA (P)on 01-22-2025 Albumin [Mass/Vol] 4.13 g/dL Normal 3.43-5.41 [facility] Comment on above: Order Comment: Speci men Type: BLOOD SPECIMENOrdering Facility: [facility] Address: [address] [place] [address] Performed By: #### L [id number] ####[facility] LABIA [id number] [address] Alpha 1 globulin Elph [Mass/Vol] 0.30 g/dL Normal 0.18-0.43 [facility] Comment on above: Order Comment: Speci men Type: BLOOD SPECIMENOrdering Facility: [facility] Address: [address] [place] [address] Performed By: #### L [id number] ####[facility] [id number] [address] Alpha 2 globulin Elph [Mass/Vol] 0.92 g/dL Normal 0.42-0.98 [facility] Comment on above: Order Comment: Speci men Type: BLOOD SPECIMENOrdering Facility: [facility] Address: [address] [place] [address] Performed By: #### L [id number] ####[facility] [id number] [place] [address] [place] Beta globulin Elph [Mass/Vol] 0.79 g/dL Normal 0.61-1.17 [facility] Comment on above: Order Comment: Speci men Type: BLOOD SPECIMENOrdering Facility: [facility] Address: [address] [place] [address] Performed By: #### L [id number] ####[facility] LABIA [id number] [place] [address] [place] COMMENT (SERUM PROT ELECTRO) Monoclonal Protein analysis (immunofixation) is not indicated. Normal [facility] Comment on above: Order Comment: Speci men Type: BLOOD SPECIMENOrdering Facility: [facility] Address: [address] [place], [place] [address] Performed By: #### L [id number] ####[facility] LABCLIA [id number] [address] [address] [place] Gamma globulin Elph [Mass/Vol] 0.56 g/dL Normal 0.53-1.51 [facility] Comment on above: Order Comment: Speci men Type: BLOOD SPECIMENOrdering Facility: [facility] Address: [address] [place] [address] Performed By: #### L [id number] ####[facility] LABIA [id number] [place] [id number] [place] M-PROTEIN LOCATION Normal [facility] Comment on above: Order Comment: Speci men Type: BLOOD SPECIMENOrdering Facility: [facility] Address: [address] [place] [address] Result Comment: Not Applicable. Performed By: #### L [id number] ####[facility] LABCLIA [id number] [place] [id number] [place] Protein Fractions [Interp] No definitive M protein is identified on protein electrophoresis. Normal No definitive M protein is identified on protein electrophor esis. [facility] Comment on above: Order Comment: Speci men Type: BLOOD SPECIMENOrdering Facility: [facility] Address: [address] [place] [address] Performed By: #### L [id number] ####[facility] LABIA [id number] [place] [id number] [place] Protein.monoclonal Elph [Mass/Vol] 0.00 g/dL Normal <=0.00 [facility] Comment on above: Order Comment: Speci men Type: BLOOD SPECIMENOrdering Facility: [facility] Address: [address] [place] [address] Performed By: #### L [id number] ####[facility] LABIA [id number] [place] [address] [place] SPE STAFF REVIEW Reviewed by Heidi Og MD [facility] Comment on above: Order Comment: Speci men Type: BLOOD SPECIMENOrdering Facility: [facility] Address: [address] [place] [address] Performed By: #### L [id number] ####[facility] [id number] [place] [address] [place] Prot SerPl-mCncon 01-22-2025 Protein [Mass/Vol] 6.7 g/dL Normal 6.3-8.0 [facility] Comment on above: Order Comment: Speci men Type: BLOOD SPECIMENOrdering Facility: [facility] Address: [address] [place] [address] Performed By: #### 2 132-9, 2284-8, 2885-2 ####[facility] [id number] [place] [address] [place] VITAMIN B1 (THIAMINE), WHOLE BLOODon 01-22-2025 Thiamine (Bld) [Moles/Vol] 247.5 nmol/L High 84.3-213.3 [facility] Comment on above: Order Comment: Speci men Type: BLOOD SPECIMENOrdering Facility: [facility] Address: [address] [place] [address] Result Comment: This assay measures the concentration of thiamine diphosphate (TDP), the primary active form of vitamin B1. Approximately 90 percent of vitamin B1 present in whole blood is TDP. Thiamine and thiamine monophosphate, which comprise the remaining 10 percent, are not measured. This test was developed, and its performance characteristics determined by the [facility] Department of Pathology and Laboratory Medicine. It has not been cleared or approved by the FDA. The [facility] Department of Pathology and Laboratory Medicine is regulated under CLIA as qualified to perform high-complexity testing. This test is used for clinical purposes. It should not be regarded as investigational or for research. Performed By: #### B 1WB ####[facility] LABCLIA [id number] [place] [id number] [place] VITAMIN B6/PYRIDOXINon 01-22 VITAMIN B6 9.5 nmol/L Low 20.0-125.0 [facility] Comment on above: Order Comment: Speci men Type: BLOOD SPECIMENOrdering Facility: [facility] Address: [address] [place] [address] Result Comment: INTE RPRETIVE INFORMATION: Vitamin B6 (Pyridoxal 5-Phosphate) Pyridoxal 5'-phosphate measured in a specimen collected following an 8-hour or overnight fast accurately indicates vitamin B6 nutritional status. Non-fasting specimen concentration reflects recent vitamin intake. This test was developed and its performance characteristics determined by [facility]. It has not been cleared or approved by the US Food and Drug Administration. This test was performed in a CLIA certified laboratory and is intended for clinical purposes. Performed By: [address] [address] Plate Sensitizer: Radha Shin MD, PhD CLIA Number: [id number] Performed By: #### V ITB6 ####[facility] OHIOIA [id number] [place] [address] Vit B12 SerPl-ncon 025 Cobalamin (Vitamin B12) [Mass/Vol] 515 pg/mL Normal 232-1245 [facility] Comment on above: Order Comment: Speci men Type: BLOOD SPECIMENOrdering Facility: [facility] Address: [address] [place] [address] Performed By: #### 2 132-9, 2284-8, 2885-2 ####[facility] LABIA [id number] [place] [address] [place] XR CERVICAL 4V [...] Postoperative and degenerative changes with intact hardware. Senior Application Security Consultant: SKYLER Transcribe Date/Time: Jan 25 2025 9:15P Dictated by : RADHA OCAMPO MD This examination was interpreted and the report reviewed and electronically signed by: RADHA OCAMPO MD on Jan 25 2025 9:16PM EST [id number] Normal [facility] XR LUMBAR 3V AP/LAT/L5-S1on 01-22-2025 XR LUMBAR [...] spine are presented. FINDINGS: There are five wae-qro-evvqfly lumbar vertebrae. No fracture or subluxations are noted. There is L5-S1 disc space narrowing, with endplate sclerosis. L1-2 disc space narrowing is also noted. There is mild to moderate osteophyte formation. Kissing spine seen on lateral view. Others: Calcifications or radiopaque opacities projecting over the right abdomen. IMPRESSION: Lumbar spine degenerative changes with multilevel disc space narrowing. Senior Application Security Consultant: SKYLER Transcribe Date/Time: Jan 24 2025 5:14P Dictated by : ANAND LARA MD This examination was interpreted and the report reviewed and electronically signed by: ANAND LARA MD on Jan 24 2025 5:16PM EST [id number] Normal [facility] Plastic Surgery Visit Report on 12-29-2024 Plastic Surgery Visit Report [facility] Plastic Reconstructive Surgery [address], [address] [place] [address] OFFICE VISIT Date of Service: 12/29/24 MR#: [id number] Acct: [id number] Name: SANTOS ALLAN Rep #: [id number] : 1965 Provider: Dr. Denver Casillas MD Age/Sex: 59/F Location: [facility] [place] Status: Signed Intake Vital Signs 3 12/15/24 [...] Op Diagnoses Mucous cyst of finger M67.449 [facility] Medical History Wears glasses Thyroid disease Back [...] Mental dis (more content not included)... Normal [facility] Plastic Surgery Visit Report on 12-15-2024 Plastic Surgery Visit Report [facility] Plastic Reconstructive Surgery [address] [facility], [address] [place] [address] OFFICE VISIT Date of Service: 12/15/24 MR#: [id number] Acct: [id number] Name: SANTOS ALLAN FRANCI Rep #: [id number] : 1965 Provider: CY corado Age/Sex: 59/F Location: [facility] [place] Status: Signed Pt seen evaluated w/GERRI. I [...] Op Diagnoses Mucous cyst of finger M67.449 [facility] Medical History Wears glasses Thyroid disease Back [...] status H/O (more content not included)... Normal [facility] MR/BMS.BPon 12-07-2024 MR/BMS.BP [facility] [address] [place] [address], [address] [place] [address] OFFICE VISIT Date of Service: 12/07/24 MR#: [id number] Acct: [id number] Name: SANTOS ALLAN FRANCI Rep #: [id number] : 1965 Provider: Dr. Josue Melgoza se, DO Age/Sex: 59/F Location: [facility] [place] Status: Signed Intake Vital Signs 08/09/24 15:54 12/01/24 15:05 12/07/24 15:58 Height 5 ft 6.75 in 5 ft 6 in 5 ft 6 in BP 145/90 H Blood Pressure Location Lt brachial Position Sitting Pulse 89 Pulse Source Monitor BP Intake Visit Reasons: 4mfu Calender Let Off Helper Required: No Accompanied by: Self Is patient [...] History p (more content not included)... Normal [facility] CBC W/Diff, Automatedon 11-12 Absolute Lymph 2.30 X10 3/uL Normal 0.83-4.51 [facility] Comment on above: Performed By: #### L 100.0100, L501.1105, L500.3400 #### [facility] [address] [place], [place], [id number] Absolute Neut 2.9 X10 3/uL Normal 2.0-7.7 [facility] Comment on above: Performed By: #### L 100.0100, L501.1105, L500.3400 #### [facility] [address] [place], [address] Basophils/100 WBC (Bld) 1.0 % Normal 0-1 [facility] Comment on above: Performed By: #### L 100.0100, L501.1105, L500.3400 #### [facility] [address] [place], [address] Eosinophils/100 WBC (Bld) 2.1 % Normal 0-5 [facility] Comment on above: Performed By: #### L 100.0100, L501.1105, L500.3400 #### [facility] [address] [place], [address] Erythrocyte distribution width (RBC) [Ratio] 12.8 % Normal 11.6-14.6 [facility] Comment on above: Performed By: #### L 100.0100, L501.1105, L500.3400 #### [facility] [address] [place], [address] Hematocrit (Bld) [Volume fraction] 42.9 % Normal 37-47 [facility] Comment on above: Performed By: #### L 100.0100, L501.1105, L500.3400 #### [facility] [address] [place], [address] Hemoglobin (Bld) [Mass/Vol] 14.3 g/dL Normal 12.0-15.0 [facility] Comment on above: Performed By: #### L 100.0100, L501.1105, L500.3400 #### [facility] [address] [place], [address] IG% 0.300 Normal 0.0-0.9 [facility] Comment on above: Result Comment: IG% - Immature Granulocytes (promyelocytes, myelocytes and metamyelocytes) > 1% indicates that a LEFT SHIFT is Present. Performed By: #### L 100.0100, L501.1105, L500.3400 #### [facility] [address] [place], [address] Lymphocytes/100 WBC (Bld) 39.7 % Normal 19-41 [facility] Comment on above: Performed By: #### L 100.0100, L501.1105, L500.3400 #### [facility] [address] [place], [address] MCH (RBC) [Entitic mass] 30.2 pg Normal 27.0-32.0 [facility] Comment on above: Performed By: #### L 100.0100, L501.1105, L500.3400 #### [facility] [address] [place], [address] MCHC (RBC) [Mass/Vol] 33.3 g/dL Normal 32-36 [facility] Comment on above: Performed By: #### L 100.0100, L501.1105, L500.3400 #### [facility] [address] [place], [address] MCV (RBC) [Entitic vol] 90.7 fL Normal 81-99 [facility] Comment on above: Performed By: #### L 100.0100, L501.1105, L500.3400 #### [facility] [address] [place], [address] Monocytes/100 WBC (Bld) 7.4 % Normal 0-10 [facility] Comment on above: Performed By: #### L 100.0100, L501.1105, L500.3400 #### [facility] [address] [place], [address] Neutrophils/100 WBC (Bld) 49.5 % Normal 47-70 [facility] Comment on above: Performed By: #### L 100.0100, L501.1105, L500.3400 #### [facility] [address] [place], [address] Nucleated RBC (Bld) [#/Vol] 0 10*3/uL Normal 0-5 [facility] Comment on above: Performed By: #### L 100.0100, L501.1105, L500.3400 #### [facility] [address] [place], [address] Platelet mean volume (Bld) [Entitic vol] 10.1 fL Normal 6.2-12.0 [facility] Comment on above: Performed By: #### L 100.0100, L501.1105, L500.3400 #### [facility] [address] [place], [address] Platelets (Bld) [#/Vol] 286 10*3/uL Normal 150-450 [facility] Comment on above: Performed By: #### L 100.0100, L501.1105, L500.3400 #### [facility] [address] [place], [address] RBC (Bld) [#/Vol] 4.73 10*6/uL Normal 4.2-5.4 [facility] Comment on above: Performed By: #### L 100.0100, L501.1105, L500.3400 #### [facility] [address] [place], [address] RDW SD 42.4 fl Normal 35.1-43.9 [facility] Comment on above: Performed By: #### L 100.0100, L501.1105, L500.3400 #### [facility] [address] [place], [address] WBC (Bld) [#/Vol] 5.8 10*3/uL Normal 4.4-11.0 [facility] Comment on above: Performed By: #### L 100.0100, L501.1105, L500.3400 #### [facility] [address] [place], [address] Liver Profileon 12-05-2024 Albumin [Mass/Vol] 4.2 g/dL Normal 3.5-5.0 [facility] Comment on above: Performed By: #### L 100.0100, L501.1105, L500.3400 #### [facility] [address] [place], [address] ALK PHOS 92 U/L Normal 35-104 [facility] Comment on above: Performed By: #### L 100.0100, L501.1105, L500.3400 #### [facility] [address] [place], [address] ALT [Catalytic activity/Vol] 13 U/L Normal <=34 [facility] Comment on above: Performed By: #### L 100.0100, L501.1105, L500.3400 #### [facility] [address] [place], [address] AST [Catalytic activity/Vol] 24 U/L Normal <=31 [facility] Comment on above: Performed By: #### L 100.0100, L501.1105, L500.3400 #### [facility] [address] [place], [address] Bilirubin [Mass/Vol] 0.38 mg/dL Normal 0.00-1.30 [facility] Comment on above: Performed By: #### L 100.0100, L501.1105, L500.3400 #### [facility] [address] [place], [address] Bilirubin.direct [Mass/Vol] 0.16 mg/dL Normal 0.00-0.30 [facility] Comment on above: Performed By: #### L 100.0100, L501.1105, L500.3400 #### [facility] [address] [place], [address] Globulin (S) [Mass/Vol] 2.8 g/dL Normal 2.2-4.2 [facility] Comment on above: Performed By: #### L 100.0100, L501.1105, L500.3400 #### [facility] [address] [place], [address] T PROT 7.0 g/dL Normal 5.9-8.4 [facility] Comment on above: Performed By: #### L 100.0100, L501.1105, L500.3400 #### [facility] [address] [place], [address] Serum Creatinine AND GFRon 0 12-05-2024 Creatinine [Mass/Vol] 0.62 mg/dL Low 0.70-1.20 [facility] Comment on above: Performed By: #### L 100.0100, L501.1105, L500.3400 #### [facility] [address] [place], [address] GFR/1.73 sq M.predicted among non-blacks MDRD (S/P/Bld) [Vol rate/Area] 104 mL/min/{1.73_m2} Normal >60 [facility] Comment on above: Result Comment: mL/m in/1.73m2 CKD-EPI Creatinine Equation (2020) Performed By: #### L 100.0100, L501.1105, L500.3400 #### [facility] [address] [place], [address] Plastic Surgery Visit Report on 12-04-2024 Plastic Surgery Visit Report [facility] Plastic Reconstructive Surgery [address], [address] [place] [address] OFFICE VISIT Date of Service: 12/05/24 MR#: [id number] Acct: [id number] Name: SANTOS ALLAN Rep #: [id number] : 1965 Provider: Dr. Denver Casillas MD Age/Sex: 58/F Location: [place] [address] Status: Signed Intake Vital Signs 12/01/24 15:05 [...] Op Diagnoses Mucous cyst of finger M67.449 [facility] Medical History Wears glasses Thyroid disease Back [...] Other Col (more content not included)... Normal [facility] Plastic Surgery Visit Report on 12-01-2024 Plastic Surgery Visit Report [facility] Plastic Reconstructive Surgery [address] [place] [id number] OFFICE VISIT Date of Service: 12/01/24 MR#: [id number] Acct: [id number] Name: SANTOS ALLAN FRANCI Rep #: [id number] : 1965 Provider: Dr. Denver Casillas MD Age/Sex: 58/F Location: [facility] [place] Status: Signed Intake Vital Signs 11/15/24 [...] Op Diagnoses Mucous cyst of finger M67.449 [facility] Medical History (Reviewed 12/01/24 @ 15:42 by Sobeida Bailey RETAIL CLIENT SOLUTIONS ANALYST, RETAIL CLIENT SOLUTIONS ANALYST-C) Wears glasses Thyroid disease Back pain Injury [...] Previous ba (more content not included)... Normal [facility] Plastic Surgery Visit Report on 11-24-2024 Plastic Surgery Visit Report [facility] Plastic Reconstructive Surgery [address], [address] [place] [address] OFFICE VISIT Date of Service: 11/24/24 MR#: [id number] Acct: [id number] Name: SANTOS ALLAN Rep #: [id number] : 1965 Provider: Dr. Denver Casillas MD Age/Sex: 58/F Location: [facility] Status: Signed Intake Vital Signs 11/15/24 [...] Op Diagnoses Mucous cyst of finger M67.449 [facility] Medical History Wears glasses Thyroid disease Back [...] History (Reviewed (more content not included)... Normal [facility] Plastic Surgery Visit Report on 11-17-2024 Plastic Surgery Visit Report [facility] Plastic Reconstructive Surgery [address] [place] [address] OFFICE VISIT Date of Service: 11/17/24 MR#: [id number] Acct: [id number] Name: SANTOS ALLAN FRANCI Rep #: [id number] : 1965 Provider: Dr. Denver Casillas MD Age/Sex: 58/F Location: [facility] Status: Signed Intake Vital Signs 11/15/24 [...] Op Diagnoses Mucous cyst of finger M67.449 [facility] Medical History Wears glasses Thyroid disease Back [...] History (Reviewe (more content not included)... Normal [facility] Operative Reporton 5 Operative Report [facility] Medical Records Department [address] [place] [address] Operative Report 11/16/24 0645 MR#: [id number] Acct: [id number] Name: SANTOS ALLAN Rep #: [id number] : 1965 58 From: Denver Casillas MD PCP: Dr. Ana Bolaños MD Status:DEP [facility] Location: [facility] Operative Report (Standard) Operative Information Date of Procedure: 11/15/24 Pre-Operative Diagnosis: Left index finger mucous cyst Post-Operative Diagnosis: Same Surgery/Procedure Performed: 1) Excision of the left index finger mucous cyst (CPT: 46296) ict development manager: No Type of Anesthesia: MAC/Supplemental (7 cc [...] Dr. Denver Casillas MD * Signed Normal [facility] H AND P Exam - Surgicalon H&P Exam - Surgical [facility] Medical Records Department [address] [place] [address] H P Exam - Surgical 11/15/24 0855 MR#: [id number] Acct: [id number] Name: SANTOS ALLAN FRANCI Rep #: [id number] : 1965 58 From: Denver Casillas MD PCP: Dr. Ana Bolaños MD Status:REG [facility] Location: [place] [address] HPI - General HPI Narrative Santos Allan is a 58 YO FM female referred by [facility] for a cyst on the left [...] some fluid. Ready to proceed with surgery. [facility] Medical History Wears glasses Thyroid disease Back [...] tonsillectomy Social History (more content not included)... [facility] MR/POSTOP.ANEon 11-15-2024 MR/POSTOP.[facility] Medical Records Department [address] [place] [address] Anesthesia Postop Eval I 11/15/24 113 MR#: [id number] Acct: [id number] Name: SANTOS ALLAN FRANCI Rep #: [id number] : 1965 58 From: Isa Hines CRNA PCP: Dr. Ana Bolaños MD Status:REG SDC Y Race: C Location: [place] [address] Anesthesia: Postop Eval I Current Vital Signs [...] 1 completed: Yes 11/15/241132 Date Isa Hines CREW ATTENDANT Cosigner Signature: Date CC: Signed [facility] MR/[id number] 11-15-2024 MR/POSTOPAN2 [facility] Medical Records Department [address] [place] [address] Anesthesia Postop Eval II 11/15/24 1147 MR#: [id number] Acct: [id number] Name: SANTOS ALLAN FRANCI Rep #: [id number] : 1965 58 From: Rodo Laurent MD PCP: Dr. Ana Bolaños MD Status:REG SDC Y Race: C Location: [place] [address] Anesthesia Postop Eval I Sum Postop Eval Completion status Anesthesia document: Postop Eval 1 completed: Yes Anesthesia Postop Eval I Summary Anesthesia Postop Eval I Summary: Anesthesia Postop Eval I: Assessment Summary Airway patent Yes 11/15/24 11:33 CREW ATTENDANT.LMIL Spontaneous unlabored Yes 11/15/24 11:33 CREW ATTENDANT.LMIL respirations Mental status Awake 11/15/24 11:33 CREW ATTENDANT.LMIL nausea No 11/15/24 11:33 CREW ATTENDANT.LMIL Vomiting No 11/15/24 11:33 CREW ATTENDANT.LMIL Anesthesia Postop Eval I: Fluid Summary Crystalloid volume administer 10 11/15/24 11:33 CREW ATTENDANT.LMIL (ml) Colloids volume administered ( ml) Blood Product volume administered (ml) Total IV fluid infused 10 11/15/24 11:33 CREW ATTENDANT.LMIL Anesthesia Postop Eval I: Summary Notes Anesthesia Complication No 11/15/24 11:33 CREW ATTENDANT.LMIL Anesthesia Complication Comment: Post-operative progress note Anesthesia: Postop Eval II Evaluation Mental status: Awake Pain Level: 0 nausea: No Vomiting: No 11/15/24 1147 Date Rodo Laurent MD Cosigner Signature: Date CC: Signed Normal [facility] ALBUMIN/CREATININE RATIO, UR INEon 11-10-2024 Albumin Unsp time DL <= 20 mg/L (U) [Mass/Time] <12.0 Normal [facility] Comment on above: Order Comment: Speci men Type: URINE SPECIMENOrdering Facility: [facility] Address: [address] [place] [id number] Performed By: #### U ACR ####[facility]ORATORYCLIA [id number] [place] [address] [place] [facility] Albumin/Creatinine (U) [Mass ratio] Normal [facility] Comment on above: Order Comment: Speci men Type: URINE SPECIMENOrdering Facility: [facility] Address: [address] [place] [address] Result Comment: Not calculated Adult Male and Female Nephrotic Criteria: <30 mg/g is considered normal to mildly increased 30-300 mg/g is considered moderately increased >300 mg/g is considered severely increased KDIGO. (2013). KDIGO 2012 Clinical Practice Guideline for the Evaluation and Management of Chronic Kidney Disease. Official Journal of the International Society of Nephrology, 3(1), 1-150. Performed By: #### U ACR ####[facility]ORATORYCLIA [id number] [place] [id number] [place] Creatinine (U) [Mass/Vol] 26.6 mg/dL Low 42.2-237.9 [facility] Comment on above: Order Comment: Speci men Type: URINE SPECIMENOrdering Facility: [facility] Address: [address] [place] [address] Performed By: #### U ACR ####[facility] LABORATORYCLIA [id number] [place] [id number] [place] [facility] CNOVon 11-10-2024 CNOV Office Visit (INTMWS ) SANTOS ALLAN ([id number]) 1965 F Date Time Provider Department 11/10/24 [...] Father Osteoporosis (more content not included)... Normal [facility] ADALBERTO SCREENING W TOMOon 10-20 ADALBERTO SCREENING W CHUCK * * *Final Report* * * DATE OF EXAM: Oct 20 2024 7:24AM WRW 0582 - ADALBERTO SCREENING W CHUCK / PROCEDURE REASON: Encounter for screening mammogram for breast cancer * * * * Physician Interpretation * * * * RESULT: [place] [address] [place] [address] #[id number] - ADALBERTO SCREENING W CHUCK HISTORY: 58 [...] Chrissy Dale M.D. Electronically signed on: 10/21/2024 Senior Application Security Consultant: ANAI Transcribe Date/Time: Oct 20 2024 7:06A Dictated by: CHRISSY DALE MD This examination was interpreted and the report reviewed and electronically signed by: CHRISSY DALE MD on Oct 21 2024 7:17AM EST [id number] Normal [facility] Finger(s) Min 2 Viewson 09-15 Finger(s) Min 2 Views [facility] Imaging Services [address] [place], [place] [id number] Finger(s) Min 2 Views MR#: [id number] Acct: [id number] Name: SANTOS ALLAN FRANCI Rep #: [id number] : 1965 F 58 From: Nixon Perry PCP: Dr. Ana Bolaños MD Status: REG CLI Study: Finger(s) Min 2 Views Date of Exam: 10/12/24 Exam# [id number] Ordering Dr: Denver Casillas MD PROCEDURE: FINGER(S) [...] significant osseous changes are noted.. Reading Location: [address] CC: Dr. Ana Bolaños MD; Dr. Denver Casillas MD Senior Application Security Consultant: Signed Normal [facility] Plastic Surgery Visit Report on 10-12-2024 Plastic Surgery Visit Report [facility] Plastic Reconstructive Surgery [address], [address] [place] [address] OFFICE VISIT Date of Service: 10/12/24 MR#: [id number] Acct: [id number] Name: SANTOS ALLAN FRANCI Rep #: [id number] : 1965 Provider: Dr. Denver Casillas MD Age/Sex: 58/F Location: [facility] [place] Status: Signed Intake Vital Signs 3 [...] Note: pt referred to the practice from [facility], pt presents with left index finger [...] history: pt d (more content not included)... [facility] 09-05-2024 [facility] Office Visit (OBGYWM ) SANTOS ALLAN ([id number]) 1965 F Date Time Provider Department 09/05/24 7:00 AM KATARINA GUILLORY OBLETICIAWBarb During your visit today, we recorded the following information about you: Blood pressure Weight Height 124/72 95.3 kg 1.682 m Katarina Guillory APRN.CNP 09/05/2024 7:31 AM Signed Patient declined meters superintendentBarry Valencia is a 58 year old who [...] L0 SAB0 IAB0 Ectopic0 Multiple0 Live Births0 Creative Writing Teacher History LMP: 02/13/2019 (Approximate), Postmenopausal Age at Menarche[age] Age at First : Age at Menopause: Creative Writing Teacher History Comments: Sexual Activity: Not Currently; Male [...] discussed with the Patient or Patient's Authorized Stable Hand. As applicable, any other physician, advance practice provider, medical student, or other health professional student that will be observing or involved in the sensitive examination for educational or training purposes was discussed with the Patient or Authorized Stable Hand. The Patient or Authorized Stable Hand has agreed to proceed with the sensitive [...] non-hirsute MARICRUZ (more content not included)... Normal [facility] Miguel 08-23-2024 [facility] Telephone (INTMWS) SANTOS ALLAN ([id number]) 1965 F Date Time Provider Department 08/23/24 [...] Encounter Status:Closed by ALISON KUMARI on [facility]/28/24 [facility] Telephone (INTMWS) SANTOS ALLAN ([id number]) 1965 F Date Time Provider Department 08/19/24 ANA BOLAÑOS INTMWS During your visit today, we recorded the following information about you: Natasha Johns LPN 08/19/2024 9:32 AM Signed Electronic PA rec'd and completed for zepbound. This was approved. Prior authorization approved Payer: [employer] [phone] Note from payer: CaseId:[id number];Status:Appr radha;Review Type:Prior Auth;Coverage Start Date:08/15/2024;Coverage End Date:04/15/2025; Approval Details Authorized from August 15, 2024 to April 15, 2025 Electronic appeal: Not supported View History Pharmacy Benefits Open Encounter SANTOS ALLAN Super ID ([employer]) Covered: Retail, Mail Order Unknown: Specialty, Long-Term Care BIN: [id number] : 1965 PCN: [id number] Legal sex: F Group name: [employer] [place] Address: [address] [place] [address] Medication Being Authorized tirzepatide, weight loss (ZEPBOUND) 7.5 mg/0.5 mL pen injector Inject 7.5 mg subcutaneously one time a week. Dispense: 2 mL Refills: 3 Start: 08/14/2024 Class: Normal This order has been released to its destination. To be filled at: e- [facility]/pharmacy #[id number] - [place] [address] - [address] - [phone] [phone] Pt notified via my chart. Allergies As of Date: 08/19/2024 Noted Allergy Reaction IMITREX (SUMATRIPTAN) 07/25/2007 Comments: Face went numb Date Reviewed: 08/11/2024 Reviewed by: Xochitl Menon LPN - Fully Assessed Reason for Visit: Insurance Authorization [1123] Prescriptions as of 08/19/2024 - pravastatin (PRAVACHOL) [...] [M19.90] 0 (more content not included)... Normal [facility] Basic metabolic 2000 panelon 08-11-2024 Anion gap [Moles/Vol] 13 mmol/L Normal 8-15 [facility] Comment on above: Order Comment: Speci men Type: BLOOD SPECIMENOrdering Facility: [facility] Address: [address] [place] [address] Performed By: #### 2 4321-2 ####[facility] LABCLIA [id number] [place] [address] [place] Calcium [Mass/Vol] 10.1 mg/dL Normal 8.5-10.2 [facility] Comment on above: Order Comment: Speci men Type: BLOOD SPECIMENOrdering Facility: [facility] Address: [address] [place] [address] Performed By: #### 2 4321-2 ####[facility] LABCLIA [id number] [place] [address] [place] Chloride [Moles/Vol] 98 mmol/L Normal 98-107 [facility] Comment on above: Order Comment: Speci men Type: BLOOD SPECIMENOrdering Facility: [facility] Address: [address] [place] [id number] Performed By: #### 2 4321-2 ####[facility] LABCLIA [id number] [place] [address] [place] CO2 [Moles/Vol] 27 mmol/L Normal 22-30 [facility] Comment on above: Order Comment: Speci men Type: BLOOD SPECIMENOrdering Facility: [facility] Address: [address] [place] [address] Performed By: #### 2 4321-2 ####[facility] LABNORTHEAST[facility] [id number] [address] STATES OF [facility] Creatinine [Mass/Vol] 0.78 mg/dL Normal 0.58-0.96 [facility] Comment on above: Order Comment: Sg men Type: BLOOD SPECIMENOrdering Facility: [facility] Address: [address] [place] [address] Performed By: #### 2 4321-2 ####[facility] LABNORTHEAST[facility] [id number] [address] [place] Creatinine and Glomerular filtration rate.predicted panel (S/P/Bld) 89 mL/min/1.73m??? Normal >=60 [facility] Comment on above: Order Comment: Sg león Type: BLOOD SPECIMENOrdering Facility: [facility] Address: [address] [place] [address] Result Comment: Marilee mated Glomerular Filtration Rate [...] actual GFR. Performed By: #### 2 4321-2 ####[facility] LABIA [id number] [place] [address] [place] Glucose [Mass/Vol] 75 mg/dL Normal 74-99 [facility] Comment on above: Order Comment: Sg men Type: BLOOD SPECIMENOrdering Facility: [facility] Address: [address] [place] [address] Result Comment: The [place] Diabetes Association (ADA) provides guidance for cutoff [...] Standards of Medical Care in Diabetes 2016, [place] Diabetes Association. Diabetes Care. 2016.39(Suppl 1). Performed By: #### 2 4321-2 ####[facility] LABCLIA [id number] [place] [address] [place] Potassium [Moles/Vol] 3.7 mmol/L Normal 3.7-5.1 [facility] Comment on above: Order Comment: Sg león Type: BLOOD SPECIMENOrdering Facility: [facility] Address: [address] [place] [address] Performed By: #### 2 4321-2 ####[facility] LABIA [id number] [place] [address] [place] Sodium [Moles/Vol] 138 mmol/L Normal 136-144 [facility] Comment on above: Order Comment: Sg león Type: BLOOD SPECIMENOrdering Facility: [facility] Address: [address] [place] [address] Performed By: #### 2 4321-2 ####[facility] LABIA [id number] [place] [address] [place] Urea nitrogen [Mass/Vol] 7 mg/dL Normal 7-21 [facility] Comment on above: Order Comment: Vondai men Type: BLOOD SPECIMENOrdering Facility: [facility] Address: [address] [place] [address] Performed By: #### 2 4321-2 ####[facility] LABIA [id number] [place] [address] [place] CNOVon 08-11-2024 CNOV Office Visit (INTMWS ) SANTOS ALLAN ([id number]) 1965 F Date Time Provider Department 08/11/24 [...] and discus (more content not included)... Normal [facility] MR/BMS.BPon 08-09-2024 MR/BMS.BP [address], [place] [address] OFFICE VISIT Date of Service: 08/09/24 MR#: [id number] Acct: [id number] Name: SANTOS ALLAN FRANCI Rep #: [id number] : 1965 Provider: Dr. Josue Melgoza se, DO Age/Sex: 58/F Location: [facility] [place] Status: Signed Intake Vital Signs 03/02/24 16:01 [...] be doing Thanksgiving on this Wednesday in [facility]. Has been taking Zepbound after having stopped [...] Nose, Yarely (more content not included)... [facility] (NEMOWS ) SANTOS ALLAN ([id number]) 1965 F Date Time Provider Department 07/18/24 [...] bowel habits (more content not included)... Normal [facility] Basic metabolic 2000 panelon 01-19-2024 Anion gap [Moles/Vol] 12 mmol/L 9 - 18 mmol/L [facility] Calcium [Mass/Vol] 9.9 mg/dL 8.5 - 10. 2 mg/dL [facility] Chloride [Moles/Vol] 101 mmol/L 97 - 105 mmol/L [facility] CO2 [Moles/Vol] 27 mmol/L 22 - 30 mmol/L [facility] Creatinine [Mass/Vol] 0.61 mg/dL 0.58 - 0.96 mg/dL [facility] GFR/1.73 sq M.predicted among non-blacks MDRD (S/P/Bld) [Vol rate/Area] 105 mL/min/{1.73_m2} - PINF [facility] Comment on above: Estimated Glomerular Filtration [...] [Mass/Vol] 98 mg/dL 74 - 99 mg/dL [facility] Comment on above: The [place] Diabete s Association (ADA) provides guidance for [...] Standards of Medical Care in Diabetes 2016, [place] Diabetes Association. Diabetes Care. 2016.39(Suppl 1). Potassium [Moles/Vol] 4.0 mmol/L 3.7 - 5.1 mmol/L [facility] Sodium [Moles/Vol] 140 mmol/L 136 - 144 mmol/L [facility] Urea nitrogen [Mass/Vol] 6 mg/dL Low 7 - 21 mg/dL [facility] Lipid 1996 panelon 4 Cholesterol [Mass/Vol] 191 mg/dL NINF - 200 mg/dL [facility] Comment on above: <200 mg/dL, Desirabl e 200-239 mg/dL, Borderline high >239 mg/dL, High Cholesterol in HDL [Mass/Vol] 49 mg/dL 39 - PINF mg/dL [facility] Comment on above: 40-59 mg/dL, Accepta ble >59 mg/dL, High: Negative risk factor for coronary heart disease <40 mg/dL, Low: Positive risk factor for coronary heart disease Cholesterol in LDL [Mass/Vol] 104 mg/dL High NINF - 100 mg/dL [facility] Comment on above: <100 mg/dL, Optimal 100-129 mg/dL, Near optimal/above optimal 130-159 mg/dL, Borderline high 160-189 mg/dL, High >189 mg/dL, Very high Secondary prevention optimal LDL Cholesterol levels are recommended to be < 70 mg/dL Cholesterol in LDL/Cholesterol in HDL [Mass ratio] 2.12 {ratio} NINF - 2.54 [facility] Comment on above: Reference: 1. National Cholesterol Education Program ATP III Guideline At-A-Glance Quick Desk Reference: National Heart, Lung, and Blood [place]. National Institutes of Health. 2001: NIH Publication No. 01-3305. 2. An International Atherosclerosis Society position paper: global recommendations for the management of dyslipidemia: executive summary, Atherosclerosis. 2014: 232(2):410-413. Cholesterol in VLDL [Mass/Vol] 38 mg/dL High NINF - 30 mg/dL [facility] Cholesterol non HDL [Mass/Vol] 142 mg/dL High NINF - 130 mg/dL [facility] Comment on above: <130 mg/dL, Optimal 130-159 mg/dL, Near optimal/above optimal 160-189 mg/dL, Borderline high 190-219 mg/dL, High >219 mg/dL, Very high Secondary prevention optimal non HDL Cholesterol levels are recommended to be <100 mg/dL Cholesterol.total/C holesterol in HDL [Mass ratio] 3.90 {ratio} NINF - 5.10 [facility] Fasting Time 7 hrs [facility] Triglyceride [Mass/Vol] 190 mg/dL High NINF - 150 mg/dL [facility] Comment on above: <150 mg/dL, Normal 150-199 mg/dL, Borderline high 200-499 mg/dL, High >499 mg/dL, Very high No Panel Informationon 01-18 Interpretation and review of laboratory results Abnormal [facility] 36on 09-07-2023 36 DOS 09/02/22 LSG w/ HH JZ TFU BAND 2008 at [place] 11/18/21 Lap removal of gastric band JZ Last OV-09/02/23 with JZ, next 03/03/24 with NK Per last OV note: 2). Continue to monitor for signs and symptoms of GERD / Continue PPI Order sent Normal [facility] Office Visiton 09-02-2023 Follow-up visit [id number] Nicole Allan 1965 F Date Provider Department Center 09/02/2023 [id number] MOCTEZUMA [facility] BCC SURG None Family History Problem Relation [...] Brother Maternal Grandmother Paternal Grandmother Level of Service:01003 [place] OFFICE/OUTPATIENT ESTABLISHED LOW MDM 20 MIN Reason for Visit and Comments: Bariatrics Post Op Follow-up [884] - 12M Normal [facility] Progress Noteon 09-02-2023 Progress Note [facility] SURGICAL PROGRAM Patient: Santos Gravesmuralisangita Date of : 1965 Service Date: 09/02/2023 [...] body mas (more content not included)... Normal [facility] Progress Note [facility] > 6 MONTH POST-OPERATIVE [...] questions. Visit completed by: Marilou Clifton RD [facility] 36on 07-28-2023 36 DOS 09/02/22 GERMANG w/ HH CHRISTOPHER TFU BAND 2007 at [place] 11/18/21 Lap removal of gastric band CHRISTOPHER Lst OV-04/05/23 with MZ, next 09/02/23 with CHRISTOPHER Per last OV note: Denies GERD since being off PPI for about a month. Order declined. [facility] 36on 05-28-2023 36 DOS 09/02/22 LSG w/ HH JZ TFU BAND 2008 at [place] 11/18/21 Lap removal of gastric band JZ Last OV-04/05/23 with MZ, next 09/02/23 with JZ Per last OV note, pt PPI was d/c'd and pt was instructed to call the office with development of s/s. Will route to PA for review of pt request for rx d/t s/s [facility] Office Visiton 04-05-2023 Follow-up visit [id number] Nicole Allan 1965 F Date Provider Department Center 04/05/2023 [id number]-TPZKXGARRET BURT BCC SURG None Family History Problem [...] Brother Maternal Grandmother Paternal Grandmother Level of Service:44218 [place] OFFICE/OUTPATIENT ESTABLISHED MOD MDM 30-39 MIN Reason for Visit and Comments: Bariatrics Post Op Follow-up [884] - 6M [facility] Progress Noteon 04-05-2023 Progress Note HPI, PHYSICAL [...] results to: Ana Bolaños MD - [address] [facility] [address] - [phone] And if not done at a [facility] Facility, please send to: [place] [address] Patient Name: Santos Myricktristen - 1965 Order Created by : Kristina Dillard MA Standing Status: Future Standing Expiration Date: 04/05/2024 Folate These orders are set for an approximate date - they can be drawn up to 3 months prior to the Expected Date on this Req. Please send results to: Ana Bolaños MD - [address] [facility] [address] - [phone] And if not done at a [facility], please send to: [address] [address] Patient Name: Santos Gravesfahad - 1965 Order Created by : Kristina Dillard MA Standing Status: Future Standing Expiration Date: 04/05/2024 Iron These orders are set for an approximate date - they can be drawn up to 3 months prior to the Expected Date on this Req. Please send results to: MD Simon Stone [address] [facility] [address] - [phone] And if not done at a [facility], please send to: [address], [address] Patient Name: Santos Allan - 1965 Order Created by : Kristina Dillard MA Standing Status: Future Standing Expiration (more content not included)... [facility] Progress Note [facility] > 6 MONTH POST-OPERATIVE [...] well overall. Patient instructed to call or Magic Wheelshart message with any questions or concerns Visit completed by: Heidi Whitaker MS, RDN, LD [facility] 36on 02-22-2023 36 DOS 09/02/22 LSG w/ HH JZ TFU BAND 2007 at [place] 11/18/21 Lap removal of gastric band JZ Last OV-12/02/22 with MZ, next 04/02/23 with MZ Rx sent to pharmacy as per the last note, pt should remain on PPI while on therapy from the dentist. [place] Normal [facility] Basophil percentageOrdered B y: Dr. Newton on 01-12-2023 Potassium [Moles/Vol] 3.5 mmol/L 3.5-5.1 [facility] Laboratory - Chemistry and C hemistry - challengeOrdered By: Dr. Newton on 01-12-2023 Magnesium [Mass/Vol] 2.1 mg/dL 1.6-2.6 [facility] Basophil percentageOrdered B y: Dr. Newton on 01-06-2023 Chloride [Moles/Vol] 109 mmol/L 98-107 [facility] Glucose [Mass/Vol] 81 mg/dL 74-106 [facility] Potassium [Moles/Vol] 3.2 mmol/L 3.5-5.1 [facility] Sodium [Moles/Vol] 139 mmol/L 136-145 [facility] Laboratory - Chemistry and C hemistry - challengeOrdered By: Dr. Newton on 01-06-2023 CO2 [Moles/Vol] 27.0 mmol/L 21.0-32.0 [facility] Urea nitrogen/Creatinine [Mass ratio] 20.5 mg/mg 10-20 [facility] No Panel InformationOrdered By: Dr. Newton on 01-06-2023 Estimated GFR (MDRD) Amer 152 mL/min >60 [facility] Comment on above: GFR Calc Estimated GFR (MDRD) Non-Af Amer 126 mL/min >60 [facility] Comment on above: Non- GFR Calc Serum or plasma calcium andrés urement (mass/volume)Ordered By: Dr. Newton on 01-06-2023 Calcium [Mass/Vol] 9.1 mg/dL 8.5-10.1 [facility] Serum or plasma creatinine m easurement (mass/volume)Ordered By: Dr. Newton on 01-06-2023 Creatinine [Mass/Vol] 0.54 mg/dL 0.55-1.02 [facility] Comment on above: The validity of the calculated GFR & GFRAA in patients over 70 years has not been determined. Clinical correlation is essential. Serum or plasma urea nitroge n measurement (mass/volume)Ordered By: Dr. Newton on 01-06-2023 Urea nitrogen [Mass/Vol] 11 mg/dL 7-18 [facility] Thin prep Papanicolaou smear with manual screeningOrdered By: Dr. Newton on 01-06-2023 Thin prep Papanicolaou smear with manual screening 3 5-15 [facility] Whole blood hemoglobin A1c/t otal hemoglobin ratio (mass fraction)Ordered By: Dr. Newton on 01-06-2023 HbA1c (Bld) [Mass fraction] 4.4 % 3.8-5.6 [facility] Comment on above: Normal < 5.7 % Predi abetic 5.7 - 6.4 % Diabetic >or= 6.5 % Please note range changes. HEMOGLOBIN A1C (POC)on 12-04 HbA1c (Bld) [Mass fraction] 4.7 % 4.2 - 5.6 % [facility] Office Visiton 12-02-2022 Follow-up visit [id number] Nicole Allan 1965 F Date Provider Department Center 12/02/2022 [id number]-HKJIBGARRET BURT [facility] BCC SURG None Family History Problem Relation [...] Brother Maternal Grandmother Paternal Grandmother Level of Service:33248 [place] OFFICE/OUTPATIENT ESTABLISHED MOD MDM 30-39 MIN Reason for Visit and Comments: Bariatrics Post Op Follow-up [884] - 3m Normal [facility] Progress Noteon 12-02-2022 Progress Note HPI, PHYSICAL [...] Please send results to: MD Simon [facility] [address] - [phone] And if not done at a [facility], please send to: [address], [address] Patient Name: Santos Allan - 1965 Order Created by : Kristina Dillard MA Standing Status: Future Standing Expiration Date: 12/03/2023 Folate These orders are set for an approximate date - they can be drawn up to 3 months prior to the Expected Date on this Req. Please send results to: MD Simon Stone [facility] [address] - [phone] And if not done at a [facility], please send to: [place] [address] Patient Name: Santos Allan - 1965 Order Created by : Kristina Dillard MA Standing Status: Future Standing Expiration Date: 12/03/2023 Iron These orders are set for an approximate date - they can be drawn up to 3 months prior to the Expected Date on this Req. Please send results to: MD Simon Stone [facility] [address] - [phone] And if not done at a [facility], please send to: [place] [id number] Patient Name: Santos Allan - 1965 Order Created by : Kristina Dillard MA Standing Status: Future Standing Expiration Date: 12/03/2023 Ferritin These orders are set for an approximate date - they can be drawn up to 3 months prior to the Expected Date on this Req. Please send results to: MD Simon Stone [place] [facility] [id number] - [phone] And if not done at a [facility], please send to: [facility] - [address], [address] - [place], [address] Patient Name: Santos Allan - 1965 Order Created by : Kristina Dillard MA Standing Status: Future Standing Expiration Date: 12/03/2023 Magnesium These orders are set for an appr (more content not included)... Normal [facility] Progress Note [facility] 3 MONTH POST-OPERATIVE DIETITIAN VISIT Date: 12/02/22 [...] arise. Visit completed by: Lorena Alexis RD [facility] Absolute lymphocyte countOrd ered By: EDILSON PENN on 11-13-2022 Lymphocytes Auto (Unsp spec) [#/Vol] 1.97 10*3/uL 0.83-4.51 [facility] Basophil percentageOrdered B y: EDILSON PENN on 11-13-2022 Basophils/100 WBC (Bld) 0.5 % 0-1 [facility] Bilirubin [Mass/Vol] 0.40 mg/dL 0.20-1.00 [facility] Comment on above: For patients on eltr ombopag therapy, use of Dimension Odell TBIL is not recommended. Chloride [Moles/Vol] 103 mmol/L 98-107 [facility] Eosinophils/100 WBC (Bld) 2.5 % 0-5 [facility] Glucose [Mass/Vol] 108 mg/dL 74-106 [facility] Comment on above: Fasting Glucose resu lt from 100 to 125 mg/dL suggests IMPAIRED HOMEOSTASIS per A.D.A. criteria. Neutrophils (Bld) [#/Vol] 3.0 10*3/uL 2.0-7.7 [facility] Neutrophils/100 WBC (Bld) 54.0 % 47-70 [facility] Potassium [Moles/Vol] 3.5 mmol/L 3.5-5.1 [facility] Protein [Mass/Vol] 7.5 g/dL 6.4-8.2 [facility] Sodium [Moles/Vol] 139 mmol/L 136-145 [facility] WBC (Bld) [#/Vol] 5.6 10*3/uL 4.4-11.0 [facility] Blood erythrocytes count (nu mber/volume)Ordered By: EDILSON PENN on 11-13-2022 RBC (Bld) [#/Vol] 4.35 10*6/uL 4.2-5.4 [facility] Blood hemoglobin measurement (mass/volume)Ordered By: EDILSON PENN on 11-13-2022 Hemoglobin (Bld) [Mass/Vol] 13.3 g/dL 12.0-15.0 [facility] Blood lymphocytes/100 leukoc ytesOrdered By: EDILSON PENN on 11-13-2022 Lymphocytes/100 WBC (Bld) 35.4 % 19-41 [facility] Blood monocytes/100 leukocyt esOrdered By: EDILSON PENN on 11-13-2022 Monocytes/100 WBC (Bld) 7.2 % 0-10 [facility] Blood platelet mean volumeOr dered By: EDILSON PENN on 11-13-2022 Platelet mean volume (Bld) [Entitic vol] 9.9 fL 6.2-12.0 [facility] Determination of erythrocyte mean corpuscular volume (MCV)Ordered By: EDILSON PENN on 11-13-2022 MCV (RBC) [Entitic vol] 94.7 fL 81-99 [facility] Erythrocyte sedimentation ra teOrdered By: EDILSON PENN on 11-13-2022 ESR (Bld) [Velocity] 13 mm/h 0-30 [facility] Hematocrit Auto (Bld) [Volum e fraction]Ordered By: EDILSON PENN on 11-13-2022 Hematocrit (Bld) [Volume fraction] 41.2 % 37-47 [facility] Iron measurement (mass/mass) Ordered By: EDILSON PENN on 11-13-2022 Iron (Unsp spec) [Mass/Mass] 71 ug/dL 50-170 [facility] Laboratory - Chemistry and C hemistry - challengeOrdered By: EDILSON PENN on 11-13-2022 ALP [Catalytic activity/Vol] 85 U/L 45-117 [facility] ALT [Catalytic activity/Vol] 37 U/L 13-56 [facility] CO2 [Moles/Vol] 29.0 mmol/L 21.0-32.0 [facility] Cobalamin (Vitamin B12) [Mass/Vol] 1818 pg/mL 211-911 [facility] Globulin (S) [Mass/Vol] 3.5 g/dL 2.2-4.2 [facility] Magnesium [Mass/Vol] 2.1 mg/dL 1.6-2.6 [facility] Urea nitrogen/Creatinine [Mass ratio] 18.9 mg/mg 10-20 [facility] Laboratory - Hematology and Cell countsOrdered By: EDILSON PENN on 11-13-2022 Erythrocyte distribution width (RBC) [Entitic vol] 48.4 fL 35.1-43.9 [facility] Erythrocyte distribution width (RBC) [Ratio] 13.9 % 11.6-14.6 [facility] Immature granulocytes/100 WBC (Bld) 0.400 % 0.0-0.9 [facility] Comment on above: IG% - Immature Granu locytes (promyelocytes, myelocytes and metamyelocytes) > 1% indicates that a LEFT SHIFT is Present. MCH (RBC) [Entitic mass] 30.6 pg 27.0-32.0 [facility] Nucleated RBC/100 WBC (Bld) [Ratio] 0 % 0-5 [facility] MCHC Auto (RBC) [Mass/Vol]Or dered By: EDILSON PENN on 11-13-2022 MCHC (RBC) [Mass/Vol] 32.3 g/dL 32-36 [facility] No Panel InformationOrdered By: EDILSON PENN on 11-13-2022 Estimated GFR (MDRD) Amer 114 mL/min >60 [facility] Comment on above: GFR Calc Estimated GFR (MDRD) Non-Af Amer 94 mL/min >60 [facility] Comment on above: Non- GFR Calc Platelets bldOrdered By: LUZ PENN on 11-13-2022 Platelets (Bld) [#/Vol] 282 10*3/uL 150-450 [facility] Serum DNA double strand anti body assay (units/volume)Ordered By: EDILSON PENN on 11-13-2022 DNA double strand Ab Qn (S) [IU]/mL 0-9 [facility] Comment on above: Negative <5 Equivoca l 5 - 9 Positive >9Performed at: [facility] [id number] Director: Mesfin Odell PhD, Phone: [phone] Serum or plasma C reactive p rotein measurement (mass/volume)Ordered By: EDILSON PENN on 11-13-2022 CRP [Mass/Vol] mg/L 0.0-3.0 [facility] Comment on above: C-Reactive Protein ( CRP) provides useful information for thediagnosis, therapy and monitoring of inflammatory processesand associated diseases. For the evaluation of Relative Riskfor Cardiovascular Disease, a High Sensitivity CRP (HSCRP)should be ordered. Serum or plasma albumin andrés urement (mass/volume)Ordered By: EDILSON PENN on 11-13-2022 Albumin [Mass/Vol] 4.0 g/dL 3.2-5.0 [facility] Serum or plasma albumin/glob ulin mass ratioOrdered By: EDILSON PENN on 11-13-2022 Albumin/Globulin [Mass ratio] 1.1 {ratio} 0.9-2.4 [facility] Serum or plasma calcium andrés urement (mass/volume)Ordered By: EDILSON PENN on 11-13-2022 Calcium [Mass/Vol] 9.7 mg/dL 8.5-10.1 [facility] Serum or plasma complement C 3 measurement (mass/volume)Ordered By: EDILSON PENN on 11-13-2022 Complement C3 [Mass/Vol] 167 mg/dL 82-167 [facility] Serum or plasma complement C 4 measurement (mass/volume)Ordered By: EDILSON PENN on 11-13-2022 Complement C4 [Mass/Vol] 41 mg/dL 12-38 [facility] Serum or plasma creatinine m easurement (mass/volume)Ordered By: EDILSON PENN on 11-13-2022 Creatinine [Mass/Vol] 0.69 mg/dL 0.55-1.02 [facility] Comment on above: The validity of the calculated GFR & GFRAA in patients over 70 years has not been determined. Clinical correlation is essential. Serum or plasma ferritin day surement (mass/volume)Ordered By: EDILSON PENN on 11-13-2022 Ferritin [Mass/Vol] 131 ng/mL 8-252 [facility] Serum or plasma folate measu rement (mass/volume)Ordered By: EDILSON PENN on 11-13-2022 Folate [Mass/Vol] 61.00 ng/mL 3.1-55.4 [facility] Serum or plasma urea nitroge n measurement (mass/volume)Ordered By: EDILSON PENN on 11-13-2022 Urea nitrogen [Mass/Vol] 13 mg/dL 7-18 [facility] Serum or plasma zinc measure ment (mass/volume)Ordered By: EDILSON PENN on 11-13-2022 Zinc [Mass/Vol] 98 ug/dL 44-115 [facility] Comment on above: Detection Limit = 5P erformed at: [address] [id number] Director: Mesfin Odell PhD, Phone: [phone] at: [facility] [id number] Director: Pranav Aparicio MD, Phone: [phone] Thin prep Papanicolaou smear with manual screeningOrdered By: EDILSON PENN on 11-13-2022 Thin prep Papanicolaou smear with manual screening 23 U/L 15-37 [facility] Thin prep Papanicolaou smear with manual screening 7 5-15 [facility] 36on 11-06-2022 [address] Angel Mcdermott S [facility] 36 DOS 09/02/22 LSG w/ HH JZ TFU BAND 2008 at [place] - [place] IN FULL. MB 11/18/21 Lap removal of gastric band JZ Last OV-10/08/22 w MZ, next 12/02/22 w MZ Therapy complete after 3 months of treatment. Order declined as original RX contained enough refills to complete treatment. [facility] Basophil percentageOrdered B y: GARRET BURT on 10-10-2022 Potassium [Moles/Vol] 4.2 mmol/L 3.5-5.1 [facility] Office Visiton 10-08-2022 Follow-up visit [id number] Nicole Allan 1965 F Date Provider Department Center 10/08/2022 [id number] MOCTEZUMA BCC SURG None Family History Problem [...] Brother Maternal Grandmother Paternal Grandmother Level of Service:70227 [place] POSTOP FOLLOW UP VISIT RELATED TO ORIGINAL PX Reason for Visit and Comments: Bariatrics Post Op Follow-up [884] - 1M [facility] Progress Noteon 10-08-2022 Progress Note [facility] 1 MONTH POST-OPERATIVE DIETITIAN [...] Visit completed by: Marilou Clifton RD Normal [facility] Progress Note [facility] SURGICAL PROGRAM Patient: Santos [...] 25 MG 24 HR TABLET NYSTATIN (MYCOSTATIN) 195037 UNIT/ML SUSPENSION Swish and spit 5 mL [...] by mouth in the morning. nystatin (Mycostatin) 299539 UNIT/ML suspension Swish and spit 5 mL (500,000 Units) 3 times daily. Swish and spit 5 mLs by mouth three times daily for 10 days. (Patient not taking: Reported on 10/08/2022) 150 mL 1 omeprazole (Pr (more content not included)... [facility] 36on 10-02-2022 36 Signed, thanks Marilou [facility] 36on 10-01-2022 36 DOS 09/02/22 LSG w/ HH CaroleZ TFU BAND 2008 at [place] - [place] [employer] IN FULL. MB [...] Order pending. Please sign. Thank you! Normal [facility] Basophil percentageOrdered B y: GARRET BURT on 09-29-2022 Bilirubin [Mass/Vol] 0.40 mg/dL 0.20-1.00 [facility] Comment on above: For patients on eltr ombopag therapy, use of Dimension Odell TBIL is not recommended. Chloride [Moles/Vol] 99 mmol/L 98-107 [facility] Cholesterol [Mass/Vol] 132 mg/dL <200 [facility] Comment on above: <200 mg/dL Desirable 200-240 mg/dL Borderline >240 mg/dL High Risk Glucose [Mass/Vol] 103 mg/dL 74-106 [facility] Comment on above: Fasting Glucose resu lt from 100 to 125 mg/dL suggests IMPAIRED HOMEOSTASIS per A.D.A. criteria. Potassium [Moles/Vol] 3.1 mmol/L 3.5-5.1 [facility] Protein [Mass/Vol] 8.0 g/dL 6.4-8.2 [facility] Sodium [Moles/Vol] 136 mmol/L 136-145 [facility] Triglyceride [Mass/Vol] 138 mg/dL <199 [facility] Comment on above: The drugs N-Acetylcy steine and Metamizole may falsely depress this assay.Serum Triglycerides Reference Interval Normal <150 mg/dL Borderline high 150 - 199 mg/dL High 200 - 499 mg/dL Very High > or = 500 mg/dL WBC (Bld) [#/Vol] 6.5 10*3/uL 4.4-11.0 [facility] Blood erythrocytes count (nu mber/volume)Ordered By: GARRET BURT on 09-29-2022 RBC (Bld) [#/Vol] 4.72 10*6/uL 4.2-5.4 [facility] Blood hemoglobin measurement (mass/volume)Ordered By: GARRET BURT on 09-29-2022 Hemoglobin (Bld) [Mass/Vol] 13.9 g/dL 12.0-15.0 [facility] Blood platelet mean volumeOr dered By: GARRET BURT on 09-29-2022 Platelet mean volume (Bld) [Entitic vol] 10.2 fL 6.2-12.0 [facility] Determination of erythrocyte mean corpuscular volume (MCV)Ordered By: GARRET BURT on 09-29-2022 MCV (RBC) [Entitic vol] 93.4 fL 81-99 [facility] Hematocrit Auto (Bld) [Volum e fraction]Ordered By: GARRET BURT on 09-29-2022 Hematocrit (Bld) [Volume fraction] 44.1 % 37-47 [facility] Iron measurement (mass/mass) Ordered By: GARRET BURT on 09-29-2022 Iron (Unsp spec) [Mass/Mass] 67 ug/dL 50-170 [facility] Laboratory - Chemistry and C hemistry - challengeOrdered By: GARRET BURT on 09-29-2022 ALP [Catalytic activity/Vol] 85 U/L 45-117 [facility] ALT [Catalytic activity/Vol] 44 U/L 13-56 [facility] CO2 [Moles/Vol] 29.0 mmol/L 21.0-32.0 [facility] Free T4 [Mass/Vol] 1.48 ng/dL 0.76-1.46 [facility] Globulin (S) [Mass/Vol] 3.8 g/dL 2.2-4.2 [facility] Magnesium [Mass/Vol] 2.1 mg/dL 1.6-2.6 [facility] Urea nitrogen/Creatinine [Mass ratio] 14.0 mg/mg 10-20 [facility] Laboratory - Hematology and Cell countsOrdered By: GARRET BURT on 09-29-2022 Erythrocyte distribution width (RBC) [Entitic vol] 45.3 fL 35.1-43.9 [facility] Erythrocyte distribution width (RBC) [Ratio] 13.2 % 11.6-14.6 [facility] MCH (RBC) [Entitic mass] 29.4 pg 27.0-32.0 [facility] MCHC Auto (RBC) [Mass/Vol]Or dered By: GARRET BURT on 09-29-2022 MCHC (RBC) [Mass/Vol] 31.5 g/dL 32-36 [facility] No Panel InformationOrdered By: GARRET BURT on 09-29-2022 Estimated GFR (MDRD) Amer 110 mL/min >60 [facility] Comment on above: GFR Calc Estimated GFR (MDRD) Non-Af Amer 91 mL/min >60 [facility] Comment on above: Non- GFR Calc Thyroid Stimulating Hormone (TSH) 1.10 uIU/mL 0.358-3.74 [facility] Vitamin B12 Level > 2000 pg/mL 211-911 [facility] Platelets bldOrdered By: FAMILIA BURT on 09-29-2022 Platelets (Bld) [#/Vol] 313 10*3/uL 150-450 [facility] Serum or plasma albumin andrés urement (mass/volume)Ordered By: GARRET BURT on 09-29-2022 Albumin [Mass/Vol] 4.2 g/dL 3.2-5.0 [facility] Serum or plasma albumin/glob ulin mass ratioOrdered By: GARRET BURT on 09-29-2022 Albumin/Globulin [Mass ratio] 1.1 {ratio} 0.9-2.4 [facility] Serum or plasma calcium andrés urement (mass/volume)Ordered By: GARRET BURT on 09-29-2022 Calcium [Mass/Vol] 9.8 mg/dL 8.5-10.1 [facility] Serum or plasma cholesterol in HDL measurement (mass/volume)Ordered By: GARRET BURT on 09-29-2022 Cholesterol in HDL [Mass/Vol] 40 mg/dL >40 [facility] Comment on above: The drugs N-Acetylcy steine and Metamizole may falsely depress this assay. Reference Range HDL <40 mg/dL Low HDL Cholesterol HDL >or= 60 mg/dL High HDL Cholesterol Serum or plasma cholesterol in VLDL measurement (mass/volume)Ordered By: GARRET BURT on 09-29-2022 Cholesterol in VLDL [Mass/Vol] 28 mg/dL 5-40 [facility] Serum or plasma creatinine m easurement (mass/volume)Ordered By: GARRET BURT on 09-29-2022 Creatinine [Mass/Vol] 0.71 mg/dL 0.55-1.02 [facility] Comment on above: The validity of the calculated GFR & GFRAA in patients over 70 years has not been determined. Clinical correlation is essential. Serum or plasma ferritin day surement (mass/volume)Ordered By: GARRET BURT on 09-29-2022 Ferritin [Mass/Vol] 99 ng/mL 8-252 [facility] Serum or plasma folate measu rement (mass/volume)Ordered By: GARRET BURT on 09-29-2022 Folate [Mass/Vol] 13.60 ng/mL 3.1-55.4 [facility] Serum or plasma low density lipoprotein (LDL) cholesterol measurement (mass/volume)Ordered By: GARRET BURT on 09-29-2022 Cholesterol in LDL [Mass/Vol] 64 mg/dL 0-130 [facility] Serum or plasma urea nitroge n measurement (mass/volume)Ordered By: GARRET BURT on 09-29-2022 Urea nitrogen [Mass/Vol] 10 mg/dL 7-18 [facility] Serum or plasma zinc measure ment (mass/volume)Ordered By: GARRET BURT on 09-29-2022 Zinc [Mass/Vol] 100 ug/dL 44-115 [facility] Comment on above: Detection Limit = 5P erformed at: [facility] - [facility] [address] [id number] Director: Pranav Aparicio MD, Phone: [phone] Thin prep Papanicolaou smear with manual screeningOrdered By: GARRET BURT on 09-29-2022 Thin prep Papanicolaou smear with manual screening 33 U/L 15-37 [facility] Thin prep Papanicolaou smear with manual screening 8 5-15 [facility] Whole blood hemoglobin A1c/t otal hemoglobin ratio (mass fraction)Ordered By: GARRET BURT on 09-29-2022 HbA1c (Bld) [Mass fraction] 4.8 % 3.8-5.6 [facility] Comment on above: Normal < 5.7 % Predi abetic 5.7 - 6.4 % Diabetic >or= 6.5 % Please note range changes. Office Visiton 09-10-2022 Follow-up visit [id number] Nicole Allan 1965 F Date Provider Department Center 09/10/2022 [id number]-IMXDQGARRET BURT [facility] BCC SURG None Family History Problem Relation [...] Brother Maternal Grandmother Paternal Grandmother Level of Service:11931 [place] POSTOP FOLLOW UP VISIT RELATED TO ORIGINAL PX Reason for Visit and Comments: Bariatrics Post Op Follow-up [884] - 1W Normal [facility] Progress Noteon 09-10-2022 Progress Note [facility] 1 WEEK VISIT POST-OPERATIVE [...] questions. Visit completed by: Marilou Clifton RD [facility] Progress Note [facility] SURGICAL PROGRAM Patient: Santos [...] Please send results to: MD Simon Stone [address] [facility] [address] - [phone] And if not done at a [facility], please send to: [place] [address] Patient Name: Santos Myricktristen - 1965 Order Created by : Mckenzie Samayoa Standing Status: Future Standing Expiration Date: 09/10/2023 Folate These orders are set for an approximate date - they can be drawn up to 3 months prior to the Expected Date on this Req. Please send results to: Ana Bolaños MD - [address] [facility] [address] - [phone] And if not done at a [facility], please send to: [place] [address] Patient Name: Santos Gravesmuralisangita - 1965 Order Created by : Mckenzie Samayoa Standing Status: Future Standing Expiration Date: 09/10/2023 Iron These orders are set for an approximate date - they can be drawn up to 3 months prior to the Expected Date on this Req. Please send results to: MD Simon Stone [address] [facility] [id number] - [phone] And if not done at a [facility], please send to: [address], [address] Patient Name: Santos Allan - 1965 Order Created by : Mckenzie Samayoa Standing Status: Future Standing Expiration Date: 09/10/2023 Ferritin These orders are set for an approximate date - they can be drawn up to 3 months prior to the Expected Date on this Req. Please send results to: Ana Bolaños MD - [facility] [id number] - [phone] And if not done at a [facility], please send to: [address], [address] Patient Name: Santos Allan - 1965 Order Created by : Mckenzie Samayoa Standing Status: Future Standing Expiration Date: 09/10/2023 Magnesium These orders are set for an approximate date - they can be drawn up to 3 months prior to the Expected Date on this Req. Please send results to: Ana Bolaños MD - [facility]0 [facility] [id number] - [phone] And if not done at a [facility], please send to: [address], [address] Patient Name: Santos Allan - 1965 Order Created by : Mckenzie Samayoa Standing Status: Future Standing Expiration Date: 09/10/2023 Vitamin B12 These orders are set for an approximate date - they can be drawn up to 3 months prior to the Expected Date on this Req. Please send results to: MD Simon Stone [id number] [facility] [id number] - [phone] And if not done at a [facility], please send to: [address], [address] Patient Name: Santos Allan - 1965 Order Created by : Mckenzie Samayoa Standing Status: Future Standing Expiration Date: 09/10/2023 Comprehensive metabolic panel These orders are set for an approximate date - they can be drawn up to 3 months prior (more content not included)... Normal [facility] Progress Note [facility] POST WEIGHT LOSS SURGERY FOLLOW UP - 1 WEEK Rooming Note Patient: Santos Allan Service Date: 09/10/2022 Patient is 1 week s/p Lap Sleeve Gastrectomy Pre-Surgical Weight Loss Initial Height: 5' 7 (170.2 cm) Initial Weight: 271 lb (123 kg) Initial BMI: 42.44 [place] Body Weight: 135 lb (61.2 kg) Surgery [...] Change: -8.8 lbs Completed by: Mckenzie Samayoa [facility] XR Chest 2 Viewson No acute cardiopulmonary disease. Report Dictated on Electronically Signed By: Radha Miles Electronically Signed Date/Time: 08/14/2022 7:53 AM [facility] Patient Name: SANTOS PRADO Exam Date/Time: [...] spine fusion hardware is not fully imaged. [facility] Radha Miles MD - 08/14/2022 Patient [...] Miles Electronically Signed Date/Time: 08/14/2022 7:53 AM [facility] XR Chest 2 ViewsOrdered By: Radha Miles on 08-14-2022 [facility] Work Phone: XR Chest 2 Viewson 2 Radiology Study observation (narrative) [facility] Absolute lymphocyte countOrd ered By: Dr. Newton on 06-26-2022 Lymphocytes Auto (Unsp spec) [#/Vol] 2.01 10*3/uL 0.83-4.51 [facility] Basophil percentageOrdered B y: Dr. Newton on 06-26-2022 Basophils/100 WBC (Bld) 0.7 % 0-1 [facility] Bilirubin [Mass/Vol] 0.30 mg/dL 0.20-1.00 [facility] Comment on above: For patients on eltr ombopag therapy, use of Dimension Odell TBIL is not recommended. Chloride [Moles/Vol] 100 mmol/L 98-107 [facility] Eosinophils/100 WBC (Bld) 0.2 % 0-5 [facility] Glucose [Mass/Vol] 123 mg/dL 74-106 [facility] Comment on above: Fasting Glucose resu lt from 100 to 125 mg/dL suggests IMPAIRED HOMEOSTASIS per A.D.A. criteria. Neutrophils (Bld) [#/Vol] 3.2 10*3/uL 2.0-7.7 [facility] Neutrophils/100 WBC (Bld) 53.2 % 47-70 [facility] Potassium [Moles/Vol] 3.8 mmol/L 3.5-5.1 [facility] Protein [Mass/Vol] 7.4 g/dL 6.4-8.2 [facility] Sodium [Moles/Vol] 139 mmol/L 136-145 [facility] WBC (Bld) [#/Vol] 5.9 10*3/uL 4.4-11.0 [facility] Blood erythrocytes count (nu mber/volume)Ordered By: Dr. Newton on 06-26-2022 RBC (Bld) [#/Vol] 4.40 10*6/uL 4.2-5.4 [facility] Blood hemoglobin measurement (mass/volume)Ordered By: Dr. Newton on 06-26-2022 Hemoglobin (Bld) [Mass/Vol] 13.0 g/dL 12.0-15.0 [facility] Blood lymphocytes/100 leukoc ytesOrdered By: Dr. Newton on 06-26-2022 Lymphocytes/100 WBC (Bld) 33.8 % 19-41 [facility] Blood monocytes/100 leukocyt esOrdered By: Dr. Newton on 06-26-2022 Monocytes/100 WBC (Bld) 9.4 % 0-10 [facility] Blood platelet mean volumeOr dered By: Dr. Newton on 06-26-2022 Platelet mean volume (Bld) [Entitic vol] 9.9 fL 6.2-12.0 [facility] Determination of erythrocyte mean corpuscular volume (MCV)Ordered By: Dr. Newton on 06-26-2022 MCV (RBC) [Entitic vol] 94.3 fL 81-99 [facility] Hematocrit Auto (Bld) [Volum e fraction]Ordered By: Dr. Newton on 06-26-2022 Hematocrit (Bld) [Volume fraction] 41.5 % 37-47 [facility] Laboratory - Chemistry and C hemistry - challengeOrdered By: Dr. Newton on 06-26-2022 ALP [Catalytic activity/Vol] 80 U/L 45-117 [facility] ALT [Catalytic activity/Vol] 40 U/L 13-56 [facility] CO2 [Moles/Vol] 29.0 mmol/L 21.0-32.0 [facility] Free T4 [Mass/Vol] 1.10 ng/dL 0.76-1.46 [facility] Globulin (S) [Mass/Vol] 3.8 g/dL 2.2-4.2 [facility] Urea nitrogen/Creatinine [Mass ratio] 15.2 mg/mg 10-20 [facility] Laboratory - Hematology and Cell countsOrdered By: Dr. Newton on 06-26-2022 Erythrocyte distribution width (RBC) [Entitic vol] 47.1 fL 35.1-43.9 [facility] Erythrocyte distribution width (RBC) [Ratio] 13.5 % 11.6-14.6 [facility] Immature granulocytes/100 WBC (Bld) 2.700 % 0.0-0.9 [facility] Comment on above: IG% - Immature Granu locytes (promyelocytes, myelocytes and metamyelocytes) > 1% indicates that a LEFT SHIFT is Present. MCH (RBC) [Entitic mass] 29.5 pg 27.0-32.0 [facility] Nucleated RBC/100 WBC (Bld) [Ratio] 0 % 0-5 [facility] [Mass/Vol]Or dered By: Dr. Newton on 06-26-2022 MCHC (RBC) [Mass/Vol] 31.3 g/dL 32-36 [facility] No Panel InformationOrdered By: Dr. Newton on 06-26-2022 Estimated GFR (MDRD) Amer 120 mL/min >60 [facility] Comment on above: GFR Calc Estimated GFR (MDRD) Non-Af Amer 99 mL/min >60 [facility] Comment on above: Non- GFR Calc Thyroid Stimulating Hormone (TSH) 1.88 uIU/mL 0.358-3.74 [facility] Urine Microalbumin/Creati nine Ratio TNP [facility] Comment on above: Test not performed Vitamin D 25-Hydroxy 47.7 ng/mL [facility] Comment on above: Vitamin D 25(OH) Sta tus Range Deficiency <20 ng/mL (50nmol/L) Insufficiency 20 - 30 ng/mL (50 - 75 nmol/L) Sufficiency 30 - 100 ng/mL (75 - 250 nmol/L) Toxicity >100 ng/mL (>250 nmol/L) Platelets bldOrdered By: Dr. Newton on 06-26-2022 Platelets (Bld) [#/Vol] 289 10*3/uL 150-450 [facility] Serum or plasma albumin andrés urement (mass/volume)Ordered By: Dr. Newton on 06-26-2022 Albumin [Mass/Vol] 3.6 g/dL 3.2-5.0 [facility] Serum or plasma albumin/glob ulin mass ratioOrdered By: Dr. Newton on 06-26-2022 Albumin/Globulin [Mass ratio] 0.9 {ratio} 0.9-2.4 [facility] Serum or plasma calcium andrés urement (mass/volume)Ordered By: Dr. Newton on 06-26-2022 Calcium [Mass/Vol] 9.1 mg/dL 8.5-10.1 [facility] Serum or plasma creatinine m easurement (mass/volume)Ordered By: Dr. Newton on 06-26-2022 Creatinine [Mass/Vol] 0.66 mg/dL 0.55-1.02 [facility] Comment on above: The validity of the calculated GFR & GFRAA in patients over 70 years has not been determined. Clinical correlation is essential. Serum or plasma urea nitroge n measurement (mass/volume)Ordered By: Dr. Newton on 06-26-2022 Urea nitrogen [Mass/Vol] 10 mg/dL 7-18 [facility] Thin prep Papanicolaou smear with manual screeningOrdered By: Dr. Newton on 06-26-2022 Thin prep Papanicolaou smear with manual screening 30 U/L 15-37 [facility] Thin prep Papanicolaou smear with manual screening 10 5-15 [facility] Thin prep Papanicolaou smear with manual screening < 5.0 mg/L NO RANGE EST. [facility] Urine creatinine measurement (mass/volume)Ordered By: Dr. Newton on 06-26-2022 Creatinine (U) [Mass/Vol] 21.20 mg/dL NO RANGE EST. [facility] Whole blood hemoglobin A1c/t otal hemoglobin ratio (mass fraction)Ordered By: Dr. Newton on 06-26-2022 HbA1c (Bld) [Mass fraction] 6.1 % 3.8-5.6 [facility] Comment on above: Normal < 5.7 % Predi abetic 5.7 - 6.4 % Diabetic >or= 6.5 % Please note range changes. Stool Helicobacter pylori an tigen detection by immunoassayon 04-04-2022 H. pylori Ag IA Ql (Stl) Negative Negative [facility] Work Phone: Comment on above: Performed at: [facility] - [address] [id number] Director: Pranav Aparicio MD, Phone: [phone] Absolute lymphocyte counton 03-19-2022 Lymphocytes Auto (Unsp spec) [#/Vol] 2.05 10*3/uL 0.83-4.51 [facility] Work Phone: Basophil percentageon 2021 Basophils/100 WBC (Bld) 0.5 % 0-1 [facility] Work Phone: Bilirubin [Mass/Vol] 0.30 mg/dL 0.20-1.00 [facility] Work Phone: Comment on above: For patients on eltr ombopag therapy, use of Dimension Odell TBIL is not recommended. Chloride [Moles/Vol] 104 mmol/L 98-107 [facility] Work Phone: Cholesterol [Mass/Vol] 177 mg/dL <200 [facility] Work Phone: Comment on above: <200 mg/dL Desirable 200-240 mg/dL Borderline >240 mg/dL High Risk Eosinophils/100 WBC (Bld) 0.0 % 0-5 [facility] Work Phone: Glucose [Mass/Vol] 106 mg/dL 74-106 [facility] Work Phone: Comment on above: Fasting Glucose resu lt from 100 to 125 mg/dL suggests IMPAIRED HOMEOSTASIS per A.D.A. criteria. Neutrophils (Bld) [#/Vol] 4.0 10*3/uL 2.0-7.7 [facility] Work Phone: Neutrophils/100 WBC (Bld) 60.3 % 47-70 [facility] Work Phone: Potassium [Moles/Vol] 3.7 mmol/L 3.5-5.1 [facility] Work Phone: Protein [Mass/Vol] 6.9 g/dL 6.4-8.2 [facility] Work Phone: Sodium [Moles/Vol] 139 mmol/L 136-145 [facility] Work Phone: Triglyceride [Mass/Vol] 191 mg/dL <199 [facility] Work Phone: Comment on above: The drugs N-Acetylcy steine and Metamizole may falsely depress this assay.Serum Triglycerides Reference Interval Normal <150 mg/dL Borderline high 150 - 199 mg/dL High 200 - 499 mg/dL Very High > or = 500 mg/dL WBC (Bld) [#/Vol] 6.6 10*3/uL 4.4-11.0 [facility] Work Phone: Blood erythrocytes count (nu mber/volume)on 03-19-2022 RBC (Bld) [#/Vol] 4.11 10*6/uL 4.2-5.4 [facility] Work Phone: Blood hemoglobin measurement (mass/volume)on 03-19-2022 Hemoglobin (Bld) [Mass/Vol] 12.6 g/dL 12.0-15.0 [facility] Work Phone: Blood lymphocytes/100 leukoc yteson 03-19-2022 Lymphocytes/100 WBC (Bld) 31.0 % 19-41 [facility] Work Phone: Blood monocytes/100 leukocyt eson 03-19-2022 Monocytes/100 WBC (Bld) 7.0 % 0-10 [facility] Work Phone: Blood platelet mean volumeon 03-19-2022 Platelet mean volume (Bld) [Entitic vol] 10.1 fL 6.2-12.0 [facility] Work Phone: Determination of erythrocyte mean corpuscular volume (MCV)on 03-19-2022 MCV (RBC) [Entitic vol] 98.1 fL 81-99 [facility] Work Phone: Erythrocyte sedimentation ra ang 03-19-2022 ESR (Bld) [Velocity] 17 mm/h 0-30 [facility] Work Phone: Hematocrit Auto (Bld) [Volum e fraction]on 03-19-2022 Hematocrit (Bld) [Volume fraction] 40.3 % 37-47 [facility] Work Phone: Laboratory - Chemistry and C hemistry - challengeon 03-19-2022 Albumin [Mass/Vol] 3.4 g/dL 2.9-4.4 [facility] Work Phone: ALP [Catalytic activity/Vol] 94 U/L 45-117 [facility] Work Phone: [phone] ALT [Catalytic activity/Vol] 29 U/L 13-56 [facility] Work Phone: [phone] CO2 [Moles/Vol] 28.0 mmol/L 21.0-32.0 [facility] Work Phone: Cobalamin (Vitamin B12) [Mass/Vol] 883 pg/mL 211-911 [facility] Work Phone: [phone] Globulin (S) [Mass/Vol] 3.6 g/dL 2.2-4.2 [facility] Work Phone: [phone] Magnesium [Mass/Vol] 2.0 mg/dL 1.6-2.6 [facility] Work Phone: [phone] Urea nitrogen/Creatinine [Mass ratio] 14.1 mg/mg 10-20 [facility] Work Phone: Laboratory - Hematology and Cell countson 03-19-2022 Erythrocyte distribution width (RBC) [Entitic vol] 47.0 fL 35.1-43.9 [facility] Work Phone: [phone] Erythrocyte distribution width (RBC) [Ratio] 13.1 % 11.6-14.6 [facility] Work Phone: [phone] Immature granulocytes/100 WBC (Bld) 1.200 % 0.0-0.9 [facility] Work Phone: [phone] Comment on above: IG% - Immature Granu locytes (promyelocytes, myelocytes and metamyelocytes) > 1% indicates that a LEFT SHIFT is Present. MCH (RBC) [Entitic mass] 30.7 pg 27.0-32.0 [facility] Work Phone: [phone] Nucleated RBC/100 WBC (Bld) [Ratio] 0 % 0-5 [facility] Work Phone: [phone] MCHC Auto (RBC) [Mass/Vol]on 03-19-2022 MCHC (RBC) [Mass/Vol] 31.3 g/dL 32-36 [facility] Work Phone: No Panel Informationon 03-19 Addendum Document Comment . [facility] Work Phone: Comment on above: The SPE pattern appe ars unremarkable. Evidence ofmonoclonal protein is not apparent. Llcsw-3-Vgtfsfsfe 0.3 g/dL 0.0-0.4 [facility] Work Phone: Xjgaf-0-Tpsfadfqa 0.9 g/dL 0.4-1.0 [facility] Work Phone: Estimated GFR (MDRD) Amer 110 mL/min >60 [facility] Work Phone: Comment on above: GFR Calc Estimated GFR (MDRD) Non-Af Amer 91 mL/min >60 [facility] Work Phone: Comment on above: Non- GFR Calc Gamma Globulins 0.6 g/dL 0.4-1.8 [facility] Work Phone: Plasma renin measurement (en zymatic activity/volume)on 03-19-2022 Renin (P) [Catalytic activity/Vol] 6.402 ng/mL/hr 0.167-5.380 [facility] Work Phone: Comment on above: Performed at: [address] [id number] Director: Mesfin Odell PhD, Phone: [phone] at: [facility] [address] [id number] Director: Pranav Aparicio MD, Phone: [phone] Platelets bldon 03-19-2022 Platelets (Bld) [#/Vol] 277 10*3/uL 150-450 [facility] Work Phone: Protein Fractions Elph [Inte rp]on 03-19-2022 Protein Fractions [Interp] Comment . [facility] Work Phone: Comment on above: Protein electrophore sis scan will follow via computer,mail, or bailer operators supervisor delivery. Serum DNA double strand anti body assay (units/volume)on 03-19-2022 DNA double strand Ab Qn (S) [IU]/mL 0-9 [facility] Work Phone: Comment on above: Negative <5 Equivoca l 5 - 9 Positive >9Performed at: [facility] [address] [id number] Director: Mesfin Odell PhD, Phone: [phone] Serum albumin to globulin ra berta by protein electrophoresison 03-19-2022 Albumin/Globulin Elph [Mass ratio] 1.1 0.7-1.7 [facility] Work Phone: Serum globulin measurement ( mass/volume)on 03-19-2022 Globulin (S) [Mass/Vol] 3.0 g/dL 2.2-3.9 [facility] Work Phone: Serum or plasma C reactive p rotein measurement (mass/volume)on 03-19-2022 CRP [Mass/Vol] mg/L 0.0-3.0 [facility] Work Phone: Comment on above: C-Reactive Protein ( CRP) provides useful information for thediagnosis, therapy and monitoring of inflammatory processesand associated diseases. For the evaluation of Relative Riskfor Cardiovascular Disease, a High Sensitivity CRP (HSCRP)should be ordered. Serum or plasma albumin andrés urement (mass/volume)on 03-19-2022 Albumin [Mass/Vol] 3.3 g/dL 3.2-5.0 [facility] Work Phone: Serum or plasma albumin/glob ulin mass ratioon 03-19-2022 Albumin/Globulin [Mass ratio] 0.9 {ratio} 0.9-2.4 [facility] Work Phone: Serum or plasma beta globuli n measurement by electrophoresis (mass/volume)on 03-19-2022 Beta globulin Elph [Mass/Vol] 1.2 g/dL 0.7-1.3 [facility] Work Phone: Serum or plasma calcium andrés urement (mass/volume)on 03-19-2022 Calcium [Mass/Vol] 9.1 mg/dL 8.5-10.1 [facility] Work Phone: Serum or plasma cholesterol in HDL measurement (mass/volume)on 03-19-2022 Cholesterol in HDL [Mass/Vol] 40 mg/dL >40 [facility] Work Phone: Comment on above: The drugs N-Acetylcy steine and Metamizole may falsely depress this assay. Reference Range HDL <40 mg/dL Low HDL Cholesterol HDL >or= 60 mg/dL High HDL Cholesterol Serum or plasma cholesterol in VLDL measurement (mass/volume)on 03-19-2022 Cholesterol in VLDL [Mass/Vol] 38 mg/dL 5-40 [facility] Work Phone: Serum or plasma complement C 3 measurement (mass/volume)on 03-19-2022 Complement C3 [Mass/Vol] 176 mg/dL 82-167 [facility] Work Phone: Serum or plasma complement C 4 measurement (mass/volume)on 03-19-2022 Complement C4 [Mass/Vol] 35 mg/dL 12-38 [facility] Work Phone: Serum or plasma creatinine m easurement (mass/volume)on 03-19-2022 Creatinine [Mass/Vol] 0.71 mg/dL 0.55-1.02 [facility] Work Phone: Comment on above: The validity of the calculated GFR & GFRAA in patients over 70 years has not been determined. Clinical correlation is essential. Serum or plasma low density lipoprotein (LDL) cholesterol measurement (mass/volume)on 03-19-2022 Cholesterol in LDL [Mass/Vol] 99 mg/dL 0-130 [facility] Work Phone: Serum or plasma urea nitroge n measurement (mass/volume)on 03-19-2022 Urea nitrogen [Mass/Vol] 10 mg/dL 7-18 [facility] Work Phone: Thin prep Papanicolaou smear with manual screeningon 03-19-2022 Thin prep Papanicolaou smear with manual screening 23 U/L 15-37 [facility] Work Phone: Thin prep Papanicolaou smear with manual screening 7 5-15 [facility] Work Phone: Thin prep Papanicolaou smear with manual screening See comment [facility] Work Phone: Comment on above: Result: Not Observed Thin prep Papanicolaou smear with manual screening 3.5 ng/dL 0.0-30.0 [facility] Work Phone: Total protein bloodon 2021 Protein [Mass/Vol] 6.4 g/dL 6.0-8.5 [facility] Work Phone: Whole blood hemoglobin A1c/t otal hemoglobin ratio (mass fraction)on 03-19-2022 HbA1c (Bld) [Mass fraction] 5.1 % 3.8-5.6 [facility] Work Phone: Comment on above: Normal < 5.7 % Predi abetic 5.7 - 6.4 % Diabetic >or= 6.5 % Please note range changes. Basophil percentageon 2021 Bilirubin [Mass/Vol] 0.30 mg/dL 0.20-1.00 [facility] Work Phone: Comment on above: For patients on eltr ombopag therapy, use of Dimension Odell TBIL is not recommended. Chloride [Moles/Vol] 101 mmol/L 98-107 [facility] Work Phone: Glucose [Mass/Vol] 94 mg/dL 74-106 [facility] Work Phone: Potassium [Moles/Vol] 3.9 mmol/L 3.5-5.1 [facility] Work Phone: Protein [Mass/Vol] 7.2 g/dL 6.4-8.2 [facility] Work Phone: Sodium [Moles/Vol] 137 mmol/L 136-145 [facility] Work Phone: Laboratory - Chemistry and C hemistry - challengeon 02-20-2022 ALP [Catalytic activity/Vol] 99 U/L 45-117 [facility] Work Phone: ALT [Catalytic activity/Vol] 31 U/L 13-56 [facility] Work Phone: CO2 [Moles/Vol] 28.0 mmol/L 21.0-32.0 [facility] Work Phone: Globulin (S) [Mass/Vol] 3.7 g/dL 2.2-4.2 [facility] Work Phone: Urea nitrogen/Creatinine [Mass ratio] 26.8 mg/mg 10-20 [facility] Work Phone: No Panel Informationon 02-20 Estimated GFR (MDRD) Amer 93 mL/min >60 [facility] Work Phone: Comment on above: GFR Calc Estimated GFR (MDRD) Non-Af Amer 77 mL/min >60 [facility] Work Phone: Comment on above: Non- GFR Calc Serum or plasma albumin andrés urement (mass/volume)on 02-20-2022 Albumin [Mass/Vol] 3.5 g/dL 3.2-5.0 [facility] Work Phone: Serum or plasma albumin/glob ulin mass ratioon 02-20-2022 Albumin/Globulin [Mass ratio] 0.9 {ratio} 0.9-2.4 [facility] Work Phone: Serum or plasma calcium andrés urement (mass/volume)on 02-20-2022 Calcium [Mass/Vol] 9.2 mg/dL 8.5-10.1 [facility] Work Phone: Serum or plasma creatinine m easurement (mass/volume)on 02-20-2022 Creatinine [Mass/Vol] 0.82 mg/dL 0.55-1.02 [facility] Work Phone: Comment on above: The validity of the calculated GFR & GFRAA in patients over 70 years has not been determined. Clinical correlation is essential. Serum or plasma urea nitroge n measurement (mass/volume)on 02-20-2022 Urea nitrogen [Mass/Vol] 22 mg/dL 7-18 [facility] Work Phone: Thin prep Papanicolaou smear with manual screeningon 02-20-2022 Thin prep Papanicolaou smear with manual screening 17 U/L 15-37 [facility] Work Phone: Thin prep Papanicolaou smear with manual screening 8 5-15 [facility] Work Phone: Basophil percentageon 2021 Bilirubin [Mass/Vol] 0.40 mg/dL 0.20-1.00 [facility] Work Phone: Comment on above: For patients on eltr ombopag therapy, use of Dimension Odell TBIL is not recommended. Chloride [Moles/Vol] 104 mmol/L 98-107 [facility] Work Phone: Cholesterol [Mass/Vol] 196 mg/dL <200 [facility] Work Phone: Comment on above: <200 mg/dL Desirable 200-240 mg/dL Borderline >240 mg/dL High Risk Glucose [Mass/Vol] 117 mg/dL 74-106 [facility] Work Phone: Comment on above: Fasting Glucose resu lt from 100 to 125 mg/dL suggests IMPAIRED HOMEOSTASIS per A.D.A. criteria. Potassium [Moles/Vol] 3.9 mmol/L 3.5-5.1 [facility] Work Phone: Protein [Mass/Vol] 7.6 g/dL 6.4-8.2 [facility] Work Phone: Sodium [Moles/Vol] 137 mmol/L 136-145 [facility] Work Phone: Triglyceride [Mass/Vol] 240 mg/dL <199 [facility] Work Phone: Comment on above: The drugs N-Acetylcy steine and Metamizole may falsely depress this assay.Serum Triglycerides Reference Interval Normal <150 mg/dL Borderline high 150 - 199 mg/dL High 200 - 499 mg/dL Very High > or = 500 mg/dL Laboratory - Chemistry and C hemistry - challengeon 12-12-2021 ALP [Catalytic activity/Vol] 106 U/L 45-117 [facility] Work Phone: ALT [Catalytic activity/Vol] 40 U/L 13-56 [facility] Work Phone: CO2 [Moles/Vol] 25.0 mmol/L 21.0-32.0 [facility] Work Phone: Free T4 [Mass/Vol] 1.30 ng/dL 0.76-1.46 [facility] Work Phone: Globulin (S) [Mass/Vol] 3.7 g/dL 2.2-4.2 [facility] Work Phone: Urea nitrogen/Creatinine [Mass ratio] 16.5 mg/mg 10-20 [facility] Work Phone: No Panel Informationon 12-12 Estimated GFR (MDRD) Amer 98 mL/min >60 [facility] Work Phone: Comment on above: GFR Calc Estimated GFR (MDRD) Non-Af Amer 81 mL/min >60 [facility] Work Phone: Comment on above: Non- GFR Calc Thyroid Stimulating Hormone (TSH) 1.62 uIU/mL 0.358-3.74 [facility] Work Phone: Serum or plasma albumin andrés urement (mass/volume)on 12-12-2021 Albumin [Mass/Vol] 3.9 g/dL 3.2-5.0 [facility] Work Phone: Serum or plasma albumin/glob ulin mass ratioon 12-12-2021 Albumin/Globulin [Mass ratio] 1.1 {ratio} 0.9-2.4 [facility] Work Phone: Serum or plasma calcium andrés urement (mass/volume)on 12-12-2021 Calcium [Mass/Vol] 9.1 mg/dL 8.5-10.1 [facility] Work Phone: Serum or plasma cholesterol in HDL measurement (mass/volume)on 12-12-2021 Cholesterol in HDL [Mass/Vol] 36 mg/dL >40 [facility] Work Phone: Comment on above: The drugs N-Acetylcy steine and Metamizole may falsely depress this assay. Reference Range HDL <40 mg/dL Low HDL Cholesterol HDL >or= 60 mg/dL High HDL Cholesterol Serum or plasma cholesterol in VLDL measurement (mass/volume)on 12-12-2021 Cholesterol in VLDL [Mass/Vol] 48 mg/dL 5-40 [facility] Work Phone: Serum or plasma creatinine m easurement (mass/volume)on 12-12-2021 Creatinine [Mass/Vol] 0.79 mg/dL 0.55-1.02 [facility] Work Phone: Comment on above: The validity of the calculated GFR & GFRAA in patients over 70 years has not been determined. Clinical correlation is essential. Serum or plasma low density lipoprotein (LDL) cholesterol measurement (mass/volume)on 12-12-2021 Cholesterol in LDL [Mass/Vol] 112 mg/dL 0-130 [facility] Work Phone: Serum or plasma urea nitroge n measurement (mass/volume)on 12-12-2021 Urea nitrogen [Mass/Vol] 13 mg/dL 7-18 [facility] Work Phone: Thin prep Papanicolaou smear with manual screeningon 12-12-2021 Thin prep Papanicolaou smear with manual screening 25 U/L 15-37 [facility] Work Phone: Thin prep Papanicolaou smear with manual screening 8 5-15 [facility] Work Phone: Whole blood hemoglobin A1c/t otal hemoglobin ratio (mass fraction)on 12-12-2021 HbA1c (Bld) [Mass fraction] 4.8 % 3.8-5.6 [facility] Work Phone: Comment on above: Normal < 5.7 % Predi abetic 5.7 - 6.4 % Diabetic >or= 6.5 % Please note range changes. Zinc, Serumon 11-19-2021 Zinc, Serum 91.5 ug/dL Normal 60.0-120.0 [facility] Comment on above: Result Comment: INTE RPRETIVE [...] developed and its performance characteristics determined by [facility]. It has not been cleared or approved by the US Food and Drug Administration. This test was performed in a CLIA certified laboratory and is intended for clinical purposes. Performed By: [facility] [address] [place] [address] Plate Sensitizer: Yvonne Smart MD Performed By: #### V D25H #### [facility] [address] [place] [address] #### HEMOG, FOLT3, CMP3, FERR3, B12, TSH5, MG3, LIPD2, IRON3 #### [facility] [address] [place] [address] #### ZINC2 #### The performing lab is in the report. OPERATIVE REPORTon 2 Ordered by an unspec ified provider. [facility] Op Noteon 11-18-2021 Op Note [facility] - Surgery [facility] Physicians Surgery Patient Name: Santos Allan OPERATIVE NOTE DATE OF PROCEDURE: 11/18/2021 SURGEON: Gavin Moctezuma MD CASE CONSULTANT: Xuan Lopez PA-C PREOPERATIVE DIAGNOSIS: ? Oropharyngeal [...] PA-C was asked to serve as the certified surgical tech/first assistant for this procedure. Normal [facility] Surgical Pathologyon 022 Surgical Pathology [id number] [facility] PATHOLOGY AND LABORATORY MEDICINE [address] [place], [place] [phone] Fax - FINAL SURGICAL PATHOLOGY REPORT NAME: SANTOS ALLAN : 1965 55 Y F BILLING NO.: [id number] LOCATION: [facility] 09 PROCEDURE 11/18/2021 DATE: SURGEON: GAVIN MOCTEZUMA [...] characteristics determined by the clinical laboratories of [facility]. They have not been cleared by the [...] negativity on decalcified specimens. Case reviewed at [address] [address]. DEPARTMENT OF PATHOLOGY AND LABORATORY MEDICINE [place], [place] [address] [email or web address] Normal [facility] Vit D 25-OH, Totalon 022 Vit D 25-OH, Total 44 ng/mL Normal 30-100 [facility] Comment on above: Result Comment: Ther apy is based on measurement of Total 25- OHD with the following classification levels: Less than 20 ng/mL: Indicative of Vit D deficiency 20-30 ng/mL: Suggests Vit D insufficiency Optimal: Greater than or equal to 30 ng/mL Test performed by [employer] Immunoassay, measuring Total Vitamin D, not individual fractions. Performed By: #### V D25H #### [facility] [address] [place] [address] #### HEMOG, FOLT3, CMP3, FERR3, B12, TSH5, MG3, LIPD2, IRON3 #### [address] [address] #### ZINC2 #### The performing lab is in the report. CBCon 11-14-2021 Hematocrit (Bld) [Volume fraction] 42.3 % 35.0 - 47.0 % [facility] Hemoglobin.gastroin testinal spec 1 Ql [...] - 10.7 10*3/uL [facility] Test Performed by [facility], [address] [place] [address] LAB [facility] Comp Metabolic Panelon 11-14 Potassium [Moles/Vol] 3.6 mmol/L Normal 3.5-5.1 [facility] Comment on above: Performed By: #### V D25H #### [facility] [address] [place] [address] #### HEMOG, FOLT3, CMP3, FERR3, B12, TSH5, MG3, LIPD2, IRON3 #### [address] [address] #### ZINC2 #### The performing lab is in the report. ALT [Catalytic activity/Vol] 39 U/L High 0-34 [facility] Comment on above: Result Comment: The ALT test is performed by an updated assay method. Please note that the reference intervals have been changed and are now sex specific. Performed By: #### V D25H #### [facility] [address] [place] [address] #### HEMOG, FOLT3, CMP3, FERR3, B12, TSH5, MG3, LIPD2, IRON3 #### [address] [address] #### ZINC2 #### The performing lab is in the report. Calcium [Mass/Vol] 9.8 mg/dL Normal 8.4-10.4 [facility] Comment on above: Performed By: #### V D25H #### [facility] [address] [place] [address] #### HEMOG, FOLT3, CMP3, FERR3, B12, TSH5, MG3, LIPD2, IRON3 #### [address] [address] #### ZINC2 #### The performing lab is in the report. Glucose [Mass/Vol] 86 mg/dL Normal 70-100 [facility] Comment on above: Performed By: #### V D25H #### [facility] [address] [place] [address] #### HEMOG, FOLT3, CMP3, FERR3, B12, TSH5, MG3, LIPD2, IRON3 #### [address] [address] #### ZINC2 #### The performing lab is in the report. ALP [Catalytic activity/Vol] 100 U/L Normal 38-126 [facility] Comment on above: Performed By: #### V D25H #### [facility] [address] [facility] [place] [address] #### HEMOG, FOLT3, CMP3, FERR3, B12, TSH5, MG3, LIPD2, IRON3 #### [address] #### ZINC2 #### The performing lab is in the report. Anion gap [Moles/Vol] 9 mmol/L Normal 3-13 [facility] Comment on above: Performed By: #### V D25H #### [facility] [address] [place] [place] [address] #### HEMOG, FOLT3, CMP3, FERR3, B12, TSH5, MG3, LIPD2, IRON3 #### [address] #### ZINC2 #### The performing lab is in the report. AST [Catalytic activity/Vol] 37 U/L Normal 15-46 [facility] Comment on above: Performed By: #### V D25H #### [facility] [address] [place] [address] #### HEMOG, FOLT3, CMP3, FERR3, B12, TSH5, MG3, LIPD2, IRON3 #### [address] #### ZINC2 #### The performing lab is in the report. Bilirubin [Mass/Vol] 0.4 mg/dL Normal 0.2-1.3 [facility] Comment on above: Performed By: #### V D25H #### [address] [place], [place] #### HEMOG, FOLT3, CMP3, FERR3, B12, TSH5, MG3, LIPD2, IRON3 #### [address] #### ZINC2 #### The performing lab is in the report. CO2 [Moles/Vol] 25 mmol/L Normal 22-30 [facility] Comment on above: Performed By: #### V D25H #### [address] [place] [address] #### HEMOG, FOLT3, CMP3, FERR3, B12, TSH5, MG3, LIPD2, IRON3 #### [address] #### ZINC2 #### The performing lab is in the report. Creatinine [Mass/Vol] 0.66 mg/dL Normal 0.52-1.25 [facility] Comment on above: Performed By: #### V D25H #### [address] [place] [address] #### HEMOG, FOLT3, CMP3, FERR3, B12, TSH5, MG3, LIPD2, IRON3 #### [facility] [address], [place] #### ZINC2 #### The performing lab is in the report. eGFR OTHER > 90.0 Normal >60 [facility] Comment on above: Result Comment: KDIG O [...] secretion. Performed By: #### V D25H #### [facility] [address] [place] [address] #### HEMOG, FOLT3, CMP3, FERR3, B12, TSH5, MG3, LIPD2, IRON3 #### [facility] [address] #### ZINC2 #### The performing lab is in the report. GFR/1.73 sq M.predicted among blacks MDRD (S/P/Bld) [Vol rate/Area] mL/min/{1.73_m2} Normal >60 [facility] Comment on above: Performed By: #### V D25H #### [employer] [facility] [address] [place] [address] #### HEMOG, FOLT3, CMP3, FERR3, B12, TSH5, MG3, LIPD2, IRON3 #### [facility] [address], [place] #### ZINC2 #### The performing lab is in the report. Protein [Mass/Vol] 7.7 g/dL Normal 6.3-8.2 [facility] Comment on above: Performed By: #### V D25H #### [facility] [address] [place] [address] #### HEMOG, FOLT3, CMP3, FERR3, B12, TSH5, MG3, LIPD2, IRON3 #### [facility] [address], [place] #### ZINC2 #### The performing lab is in the report. Urea nitrogen [Mass/Vol] 16 mg/dL Normal 9-20 [facility] Comment on above: Performed By: #### V D25H #### [facility] [address] [place] [address] #### HEMOG, FOLT3, CMP3, FERR3, B12, TSH5, MG3, LIPD2, IRON3 #### [address] #### ZINC2 #### The performing lab is in the report. Chloride [Moles/Vol] 104 mmol/L Normal 98-107 [facility] Comment on above: Performed By: #### V D25H #### [facility] [address] [place] [address] #### HEMOG, FOLT3, CMP3, FERR3, B12, TSH5, MG3, LIPD2, IRON3 #### [address] #### ZINC2 #### The performing lab is in the report. Sodium [Moles/Vol] 137 mmol/L Normal 135-145 [facility] Comment on above: Performed By: #### V D25H #### [facility] [address] [place] [address] #### HEMOG, FOLT3, CMP3, FERR3, B12, TSH5, MG3, LIPD2, IRON3 #### [address] #### ZINC2 #### The performing lab is in the report. Albumin [Mass/Vol] 4.5 g/dL Normal 3.5-5.0 [facility] Comment on above: Performed By: #### V D25H #### [facility] [address] [place] [address] #### HEMOG, FOLT3, CMP3, FERR3, B12, TSH5, MG3, LIPD2, IRON3 #### [facility] [address] [place] [address] #### ZINC2 #### The performing lab is [...] - 1.25 mg/dL [facility] EGFR IF NonAfrican Fijian >90.0 >60 mL/min [facility] Comment on above: [...] - 20 mg/dL [facility] Test Performed by [address] LAB [facility] Ferritinon 11-14-2021 Ferritin [Mass/Vol] 84 ng/mL Normal 11-264 [facility] Comment on above: Performed By: #### V D25H #### [facility] [address] [place] [address] #### HEMOG, FOLT3, CMP3, FERR3, B12, TSH5, MG3, LIPD2, IRON3 #### [address] [address] #### ZINC2 #### The performing lab is in the report. Ferritin [Mass/Vol] 84 ng/mL 11 - 264 ng/mL [facility] Test Performed by [address] LAB [facility] Folateon 11-14-2021 Folate 4.4 ng/mL Normal [facility] Comment on above: Result Comment: >2.8 Performed By: #### V D25H #### [facility] [address] [place] [address] #### HEMOG, FOLT3, CMP3, FERR3, B12, TSH5, MG3, LIPD2, IRON3 #### [address] #### ZINC2 #### The performing lab is in the report. Folate 4.4 ng/mL [facility] Comment on above: >2.8 Hemoglobin A1Con 11-14-2021 Glucose [Mass/Vol] 97 mg/dL Normal [facility] Comment on above: Performed By: #### V D25H #### [place] [address] [place] [address] #### HEMOG, FOLT3, CMP3, FERR3, B12, TSH5, MG3, LIPD2, IRON3 #### [address] #### ZINC2 #### The performing lab is in the report. HbA1c (Bld) [Mass fraction] 5.0 % Normal [facility] Comment on above: Result Comment: Norm al less than 5.7% Prediabetes 5.7% to 6.4% Diabetes 6.5% or higher --HgbA1C levels may not be accurate in patients who have renal disease, received recent blood transfusions, are anemic, or who have dyshemoglobinemia. Performed By: #### V D25H #### [place] [address] [place] [address] #### HEMOG, FOLT3, CMP3, FERR3, B12, TSH5, MG3, LIPD2, IRON3 #### [address] #### ZINC2 #### The performing lab is in the report. HbA1c (Bld) [Mass fraction] 5.0 % [facility] Comment on above: Normal less than 5.7 % Prediabetes 5.7% to 6.4% Diabetes 6.5% or higher --HgbA1C levels may not be accurate in patients who have renal disease, received recent blood transfusions, are anemic, or who have dyshemoglobinemia. Magnesium [Mass/Vol] 97 mg/dL [facility] Test Performed by [address], [place] [id number] [place] [address] LAB [facility] Hemogramon 11-14-2021 Erythrocyte distribution width (RBC) [Ratio] 13.1 % Normal 11.5-14.5 [facility] Comment on above: Performed By: #### V D25H #### [address] [place] [address] #### HEMOG, FOLT3, CMP3, FERR3, B12, TSH5, MG3, LIPD2, IRON3 #### [address] [address] #### ZINC2 #### The performing lab is in the report. Hematocrit (Bld) [Volume fraction] 42.3 % Normal 35.0-47.0 [facility] Comment on above: Performed By: #### V D25H #### [address] [place] [address] #### HEMOG, FOLT3, CMP3, FERR3, B12, TSH5, MG3, LIPD2, IRON3 #### [address] #### ZINC2 #### The performing lab is in the report. Hemoglobin (Bld) [Mass/Vol] 13.7 g/dL Normal 11.7-16.0 [facility] Comment on above: Performed By: #### V D25H #### [address] [place] [address] #### HEMOG, FOLT3, CMP3, FERR3, B12, TSH5, MG3, LIPD2, IRON3 #### [address] [address] #### ZINC2 #### The performing lab is in the report. MCH (RBC) [Entitic mass] 30.9 pg Normal 26.0-34.0 [facility] Comment on above: Performed By: #### V D25H #### [address] [place] [address] #### HEMOG, FOLT3, CMP3, FERR3, B12, TSH5, MG3, LIPD2, IRON3 #### [address] #### ZINC2 #### The performing lab is in the report. MCHC 32.4 % Normal 32.0-36.0 [facility] Comment on above: Performed By: #### V D25H #### [facility] [address] [place] [address] #### HEMOG, FOLT3, CMP3, FERR3, B12, TSH5, MG3, LIPD2, IRON3 #### [address] #### ZINC2 #### The performing lab is in the report. MCV (RBC) [Entitic vol] 95.4 fL Normal 79.0-98.0 [facility] Comment on above: Performed By: #### V D25H #### [facility] [address] [place] [address] #### HEMOG, FOLT3, CMP3, FERR3, B12, TSH5, MG3, LIPD2, IRON3 #### [address] #### ZINC2 #### The performing lab is in the report. Platelet mean volume (Bld) [Entitic vol] 8.9 fL Normal 7.4-10.4 [facility] Comment on above: Performed By: #### V D25H #### [facility] [address] [place] [address] #### HEMOG, FOLT3, CMP3, FERR3, B12, TSH5, MG3, LIPD2, IRON3 #### [address] #### ZINC2 #### The performing lab is in the report. Platelets (Bld) [#/Vol] 255 10*3/uL Normal 140-440 [facility] Comment on above: Performed By: #### V D25H #### [facility] [address] [place] [address] #### HEMOG, FOLT3, CMP3, FERR3, B12, TSH5, MG3, LIPD2, IRON3 #### [address] #### ZINC2 #### The performing lab is in the report. RBC (Bld) [#/Vol] 4.43 10*6/uL Normal 3.80-5.20 [facility] Comment on above: Performed By: #### V D25H #### [address] [place] [address] #### HEMOG, FOLT3, CMP3, FERR3, B12, TSH5, MG3, LIPD2, IRON3 #### [address] #### ZINC2 #### The performing lab is in the report. WBC (Bld) [#/Vol] 6.1 10*3/uL Normal 3.6-10.7 [facility] Comment on above: Performed By: #### V D25H #### [place] [address] #### HEMOG, FOLT3, CMP3, FERR3, B12, TSH5, MG3, LIPD2, IRON3 #### [address] #### ZINC2 #### The performing lab is in the report. Ironon 11-14-2021 Iron [Mass/Vol] 102 ug/dL 37 - 170 ug/dL [facility] Test Performed by [address] LAB [facility] Iron, Totalon 11-14-2021 Iron, Total 102 ug/dL Normal 37-170 [facility] Comment on above: Performed By: #### V D25H #### [address] [place] [address] #### HEMOG, FOLT3, CMP3, FERR3, B12, TSH5, MG3, LIPD2, IRON3 #### [address] [address] #### ZINC2 #### The performing lab is in the report. Lipid Panelon 11-14-2021 Chol/HDL 5 Normal [facility] Comment on above: Result Comment: Ref Range: < 3 Low Risk for CHD 3-6 Mod Risk for CHD > 6 High Risk for CHD Performed By: #### V D25H #### [facility] [address] [place] [address] #### HEMOG, FOLT3, CMP3, FERR3, B12, TSH5, MG3, LIPD2, IRON3 #### [address] #### ZINC2 #### The performing lab is in the report. Cholesterol in HDL [Mass/Vol] 37 mg/dL Low 40-60 [facility] Comment on above: Performed By: #### V D25H #### [facility] [address] [place] [address] #### HEMOG, FOLT3, CMP3, FERR3, B12, TSH5, MG3, LIPD2, IRON3 #### [address] #### ZINC2 #### The performing lab is in the report. Low Density Lipoprotein 120 mg/dL Abnormal <100 [facility] Comment on above: Performed By: #### V D25H #### [facility] [address] [place] [address] #### HEMOG, FOLT3, CMP3, FERR3, B12, TSH5, MG3, LIPD2, IRON3 #### [address] #### ZINC2 #### The performing lab is in the report. Triglyceride [Mass/Vol] 207 mg/dL Abnormal <150 [facility] Comment on above: Performed By: #### V D25H #### [facility] [address] [place] [address] #### HEMOG, FOLT3, CMP3, FERR3, B12, TSH5, MG3, LIPD2, IRON3 #### [address] #### ZINC2 #### The performing lab is in the report. Cholesterol [Mass/Vol] 198 mg/dL Normal < 200 [facility] Comment on above: Performed By: #### V D25H #### [facility] [address] [place] [address] #### HEMOG, FOLT3, CMP3, FERR3, B12, TSH5, MG3, LIPD2, IRON3 #### [facility] [address] [place] #### ZINC2 #### The performing lab is in the report. Cholesterol [Mass/Vol] 198 mg/dL <200 [facility] Cholesterol in HDL [Mass/Vol] 37 mg/dL Low 40 - 60 mg/dL [facility] Cholesterol in LDL [Mass/Vol] 120 mg/dL Abnormal <100 [facility] Cholesterol.total/C holesterol in HDL [Mass ratio] 5 {ratio} [facility] Comment on above: Ref Range: < 3 Low Risk for CHD 3-6 Mod Risk for CHD > 6 High Risk for CHD Interpretation and review of laboratory results Abnormal [facility] Triglyceride [Mass/Vol] 207 mg/dL Abnormal <150 [facility] Magnesiumon 11-14-2021 Magnesium [Mass/Vol] 2.1 mg/dL Normal 1.6-2.3 [facility] Comment on above: Performed By: #### V D25H #### [facility] [address] [place] [address] #### HEMOG, FOLT3, CMP3, FERR3, B12, TSH5, MG3, LIPD2, IRON3 #### [address] #### ZINC2 #### The performing lab is in the report. Magnesium [Mass/Vol] 2.1 mg/dL 1.6 - 2.3 mg/dL [facility] No Panel Informationon 11-14 Test Performed by [id number] [place] [address] LAB [facility] Test Performed by [facility], [address] [place] [id number] [place] [address] LAB [facility] TSH without Reflexon 022 TSH Qn 2.214 u[IU]/mL 0.465 - 4.680 u[IU]/mL [facility] Test Performed by [facility], [address] [place] [id number] [facility] LAB [facility] Thyroid Stim. Hormoneon Thyroid Stim. Hormone 2.214 u[IU]/mL Normal 0.465-4.680 [facility] Comment on above: Performed By: #### V D25H #### [address] [place] [address] #### HEMOG, FOLT3, CMP3, FERR3, B12, TSH5, MG3, LIPD2, IRON3 #### [address] [address] #### ZINC2 #### The performing lab is in the report. Vitamin B12on 11-14-2021 Cobalamin (Vitamin B12) [Mass/Vol] pg/mL High 239-931 [facility] Comment on above: Performed By: #### V D25H #### [facility] [address] [place] [address] #### HEMOG, FOLT3, CMP3, FERR3, B12, TSH5, MG3, LIPD2, IRON3 #### [address] [address] #### ZINC2 #### The performing lab is in the report. Cobalamin (Vitamin B12) [Mass/Vol] pg/mL High 239 - 931 pg/mL [facility] Interpretation and review of laboratory results Abnormal [facility] Basophil percentageon 2021 Bilirubin [Mass/Vol] 0.40 mg/dL 0.20-1.00 [facility] Work Phone: Comment on above: For patients on eltr ombopag therapy, use of Dimension Odell TBIL is not recommended. Chloride [Moles/Vol] 107 mmol/L 98-107 [facility] Work Phone: Cholesterol [Mass/Vol] 174 mg/dL <200 [facility] Work Phone: Comment on above: <200 mg/dL Desirable 200-240 mg/dL Borderline >240 mg/dL High Risk Glucose [Mass/Vol] 95 mg/dL 74-106 [facility] Work Phone: Potassium [Moles/Vol] 3.5 mmol/L 3.5-5.1 [facility] Work Phone: Protein [Mass/Vol] 7.3 g/dL 6.4-8.2 [facility] Work Phone: Sodium [Moles/Vol] 139 mmol/L 136-145 [facility] Work Phone: Triglyceride [Mass/Vol] 166 mg/dL [facility] Work Phone: Comment on above: The drugs N-Acetylcy steine and Metamizole may falsely depress this assay.Serum Triglycerides Reference Interval Normal <150 mg/dL Borderline high 150 - 199 mg/dL High 200 - 499 mg/dL Very High > or = 500 mg/dL WBC (Bld) [#/Vol] 5.2 10*3/uL 4.4-11.0 [facility] Work Phone: Blood erythrocytes count (nu mber/volume)on 11-01-2021 RBC (Bld) [#/Vol] 4.53 10*6/uL 4.2-5.4 [facility] Work Phone: Blood hemoglobin measurement (mass/volume)on 11-01-2021 Hemoglobin (Bld) [Mass/Vol] 14.1 g/dL 12.0-15.0 [facility] Work Phone: Blood platelet mean volumeon 11-01-2021 Platelet mean volume (Bld) [Entitic vol] 9.7 fL 6.2-12.0 [facility] Work Phone: Determination of erythrocyte mean corpuscular volume (MCV)on 11-01-2021 MCV (RBC) [Entitic vol] 95.4 fL 81-99 [facility] Work Phone: Hematocrit Auto (Bld) [Volum e fraction]on 11-01-2021 Hematocrit (Bld) [Volume fraction] 43.2 % 37-47 [facility] Work Phone: Iron measurement (mass/mass) on 11-01-2021 Iron (Unsp spec) [Mass/Mass] 112 ug/dL 50-170 [facility] Work Phone: Laboratory - Chemistry and C hemistry - challengeon 11-01-2021 ALP [Catalytic activity/Vol] 93 U/L 45-117 [facility] Work Phone: ALT [Catalytic activity/Vol] 41 U/L 13-56 [facility] Work Phone: CO2 [Moles/Vol] 24.0 mmol/L 21.0-32.0 [facility] Work Phone: Globulin (S) [Mass/Vol] 3.6 g/dL 2.2-4.2 [facility] Work Phone: Magnesium [Mass/Vol] 2.0 mg/dL 1.6-2.6 [facility] Work Phone: Urea nitrogen/Creatinine [Mass ratio] 16.0 mg/mg 10-20 [facility] Work Phone: Laboratory - Hematology and Cell countson 11-01-2021 Erythrocyte distribution width (RBC) [Entitic vol] 42.5 fL 35.1-43.9 [facility] Work Phone: Erythrocyte distribution width (RBC) [Ratio] 12.1 % 11.6-14.6 [facility] Work Phone: MCH (RBC) [Entitic mass] 31.1 pg 27.0-32.0 [facility] Work Phone: [phone] MCHC Auto (RBC) [Mass/Vol]on 11-01-2021 MCHC (RBC) [Mass/Vol] 32.6 g/dL 32-36 [facility] Work Phone: No Panel Informationon 11-01 Estimated GFR (MDRD) Amer 95 mL/min >60 [facility] Work Phone: Comment on above: GFR Calc Estimated GFR (MDRD) Non-Af Amer 78 mL/min >60 [facility] Work Phone: Comment on above: Non- GFR Calc Thyroid Stimulating Hormone (TSH) 1.68 uIU/mL 0.358-3.74 [facility] Work Phone: Vitamin B12 Level > 2000 pg/mL 211-911 [facility] Work Phone: Vitamin D 25-Hydroxy 54.0 ng/mL [facility] Work Phone: Comment on above: Vitamin D 25(OH) Sta tus Range Deficiency <20 ng/mL (50nmol/L) Insufficiency 20 - 30 ng/mL (50 - 75 nmol/L) Sufficiency 30 - 100 ng/mL (75 - 250 nmol/L) Toxicity >100 ng/mL (>250 nmol/L) Whole Blood Vitamin B1 Level 93.3 nmol/L [facility] Work Phone: Platelets bldon 11-01-2021 Platelets (Bld) [#/Vol] 282 10*3/uL 150-450 [facility] Work Phone: Serum or plasma albumin andrés urement (mass/volume)on 11-01-2021 Albumin [Mass/Vol] 3.7 g/dL 3.2-5.0 [facility] Work Phone: Serum or plasma albumin/glob ulin mass ratioon 11-01-2021 Albumin/Globulin [Mass ratio] 1.0 {ratio} 0.9-2.4 [facility] Work Phone: Serum or plasma calcium andrés urement (mass/volume)on 11-01-2021 Calcium [Mass/Vol] 8.8 mg/dL 8.5-10.1 [facility] Work Phone: Serum or plasma cholesterol in HDL measurement (mass/volume)on 11-01-2021 Cholesterol in HDL [Mass/Vol] 37 mg/dL [facility] Work Phone: Comment on above: The drugs N-Acetylcy steine and Metamizole may falsely depress this assay. Reference Range HDL <40 mg/dL Low HDL Cholesterol HDL >or= 60 mg/dL High HDL Cholesterol Serum or plasma cholesterol in VLDL measurement (mass/volume)on 11-01-2021 Cholesterol in VLDL [Mass/Vol] 33 mg/dL 5-40 [facility] Work Phone: Serum or plasma creatinine m easurement (mass/volume)on 11-01-2021 Creatinine [Mass/Vol] 0.81 mg/dL 0.55-1.02 [facility] Work Phone: Comment on above: The validity of the calculated GFR & GFRAA in patients over 70 years has not been determined. Clinical correlation is essential. Serum or plasma ferritin day surement (mass/volume)on 11-01-2021 Ferritin [Mass/Vol] 99 ng/mL 8-252 [facility] Work Phone: Serum or plasma folate measu rement (mass/volume)on 11-01-2021 Folate [Mass/Vol] 5.50 ng/mL 3.1-55.4 [facility] Work Phone: Serum or plasma low density lipoprotein (LDL) cholesterol measurement (mass/volume)on 11-01-2021 Cholesterol in LDL [Mass/Vol] 104 mg/dL 0-130 [facility] Work Phone: Serum or plasma urea nitroge n measurement (mass/volume)on 11-01-2021 Urea nitrogen [Mass/Vol] 13 mg/dL 7-18 [facility] Work Phone: Serum or plasma zinc measure ment (mass/volume)on 11-01-2021 Zinc [Mass/Vol] 97 ug/dL [facility] Work Phone: Comment on above: Detection Limit = 5P erformed at: - [facility] [address] [place], [place] [id number] Director: Pranav Aparicio MD, Phone: [phone] Thin prep Papanicolaou smear with manual screeningon 11-01-2021 Thin prep Papanicolaou smear with manual screening 27 U/L 15-37 [facility] Work Phone: Thin prep Papanicolaou smear with manual screening 8 5-15 [facility] Work Phone: Whole blood hemoglobin A1c/t otal hemoglobin ratio (mass fraction)on 11-01-2021 HbA1c (Bld) [Mass fraction] 4.9 % 3.8-5.6 [facility] Work Phone: Comment on above: Normal < 5.7 % Predi abetic 5.7 - 6.4 % Diabetic >or= 6.5 % Please note range changes. RF UGI w/o KUB w/ or w/o Del ay Flmon 10-09-2021 RF UGI w/o KUB w/ or w/o Delay Flm Patient Name: SANTOS ALLAN Fluoroscopy ACCESSION EXAM DATE/TIME PROCEDURE ORDERING PROVIDER [id number] 10/09/2021 08:42 EST RF UGI w/o KUB and w/ or [id number] -GARRET BURT w/o Delay Flm CPT code 31357 Reason For Exam (RF UGI w/o KUB and w/ or w/o Delay Flm) Heartburn Report AIR CONTRAST UGI SERIES CLINICAL INDICATIONS: 55-year-old female: Hiatal hernia, with increased reflux. History of gastric lap band in 2007. COMPARISON: None FLUOROSCOPY TIME: 1.35minutes. FLUOROSCOPIC EXPOSURES: 35 TECHNIQUE: Biphasic exam was performed with barium and air. 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 Sensitivity = 20mIU/mL. [facility] , [address] Work Phone: Vital Signs Date Time Vital Sign Value Performing Clinician Facility 05-11-2025 07:40-0400 Diastolic blood pressure 72 mm[Hg] Fior Older FORENSIC SPECIALIST.LEAD ENGINEER Work Phone: [facility] Comment on above: BP Ismael 05-11-2025 07:40-0400 Systolic blood pressure 116 mm[Hg] Fior Older FORENSIC SPECIALIST.LEAD ENGINEER Work Phone: [facility] Comment on above: BP Ismael 05-11-2025 07:31-0400 Body mass index (BMI) [Ratio] 28.41 kg/m2 Fior Older FORENSIC SPECIALIST.LEAD ENGINEER Work Phone: [facility] 05-11-2025 07:31-0400 Body weight 79.83 kg Fior Older FORENSIC SPECIALIST.LEAD ENGINEER Work Phone: [facility] 05-11-2025 07:31-0400 Respiratory rate 16 /min Fior Older FORENSIC SPECIALIST.LEAD ENGINEER Work Phone: [facility] 05-07-2025 15:52-0400 Body mass index (BMI) [Ratio] 28.34 kg/m2 Ash Chowdhury MD Work Phone: [facility] 05-07-2025 15:52-0400 Body weight 79.65 kg Ash Chowdhury MD Work Phone: [facility] 05-07-2025 15:52-0400 Diastolic blood pressure 84 mm[Hg] Ash Chowdhury MD Work Phone: [facility] 05-07-2025 15:52-0400 Systolic blood pressure 120 mm[Hg] Ash Chowdhury MD Work Phone: [facility] 05-02-2025 15:35-0400 Body mass index (BMI) [Ratio] 28.89 kg/m2 Fior Older FORENSIC SPECIALIST.LEAD ENGINEER Work Phone: [facility] 05-02-2025 15:35-0400 Body weight 81.19 kg Fior Older FORENSIC SPECIALIST.LEAD ENGINEER Work Phone: [facility] 05-02-2025 15:35-0400 Diastolic blood pressure 100 mm[Hg] Fior Older FORENSIC SPECIALIST.LEAD ENGINEER Work Phone: [facility] 05-02-2025 15:35-0400 Heart rate 76 /min Fior Older FORENSIC SPECIALIST.LEAD ENGINEER Work Phone: [facility] 05-02-2025 15:35-0400 Respiratory rate 16 /min Fior Older FORENSIC SPECIALIST.LEAD ENGINEER Work Phone: [facility] 05-02-2025 15:35-0400 SaO2% (BldA) [Mass fraction] 100 % Fior Older FORENSIC SPECIALIST.LEAD ENGINEER Work Phone: [facility] 05-02-2025 15:35-0400 Systolic blood pressure 162 mm[Hg] Ifor Older FORENSIC SPECIALIST.LEAD ENGINEER Work Phone: [facility] 04-10-2025 09:33-0400 Body mass index (BMI) [Ratio] 29.05 kg/m2 Angelique Bogner PA-C Work Phone: [facility] 04-10-2025 09:33-0400 Body temperature 97.5 [degF] Angelique Bogner PA-C Work Phone: [facility] 04-10-2025 09:33-0400 Body weight 81.65 kg Angelique Bogner PA-C Work Phone: [facility] 04-10-2025 09:33-0400 Diastolic blood pressure 81 mm[Hg] Angelique Bogner PA-C Work Phone: [facility] 04-10-2025 09:33-0400 Heart rate 71 /min Angelique Bogner PA-C Work Phone: [facility] 04-10-2025 09:33-0400 SaO2% (BldA) [Mass fraction] 97 % Angelique Bogner PA-C Work Phone: [facility] 04-10-2025 09:33-0400 Systolic blood pressure 126 mm[Hg] Angelique Bogner PA-C Work Phone: [facility] 04-09-2025 09:29-0400 Body height 167.6 cm Ash Chowdhury MD Work Phone: [facility] 04-09-2025 09:29-0400 Body mass index (BMI) [Ratio] 28.92 kg/m2 Ash Chowdhury MD Work Phone: [facility] 04-09-2025 09:29-0400 Body weight 81.28 kg Ash Chowdhury MD Work Phone: [facility] 04-09-2025 09:29-0400 Diastolic blood pressure 75 mm[Hg] Ash Chowdhury MD Work Phone: [facility] 04-09-2025 09:29-0400 Heart rate 76 /min Ash Chowdhury MD Work Phone: [facility] 04-09-2025 09:29-0400 Respiratory rate 14 /min Ash Chowdhury MD Work Phone: [facility] 04-09-2025 09:29-0400 SaO2% (BldA) [Mass fraction] 98 % Ash Chowdhury MD Work Phone: [facility] 04-09-2025 09:29-0400 Systolic blood pressure 116 mm[Hg] Ash Chowdhury MD Work Phone: [facility] 03-30-2025 07:21-0400 Body height 167.6 cm Fior Older FORENSIC SPECIALIST.LEAD ENGINEER Work Phone: [facility] 03-30-2025 07:21-0400 Body mass index (BMI) [Ratio] 28.57 kg/m2 Fior Older FORENSIC SPECIALIST.LEAD ENGINEER Work Phone: [facility] 03-30-2025 07:21-0400 Body temperature 98.2 [degF] Fior Older FORENSIC SPECIALIST.LEAD ENGINEER Work Phone: [facility] 03-30-2025 07:21-0400 Body weight 80.29 kg Fior Older FORENSIC SPECIALIST.LEAD ENGINEER Work Phone: [facility] 03-30-2025 07:21-0400 Diastolic blood pressure 70 mm[Hg] Fior Older FORENSIC SPECIALIST.LEAD ENGINEER Work Phone: [facility] 03-30-2025 07:21-0400 Heart rate 76 /min Fior Older FORENSIC SPECIALIST.LEAD ENGINEER Work Phone: [facility] 03-30-2025 07:21-0400 Respiratory rate 18 /min Fior Older FORENSIC SPECIALIST.LEAD ENGINEER Work Phone: [facility] 03-30-2025 07:21-0400 SaO2% (BldA) [Mass fraction] 99 % Fior Older FORENSIC SPECIALIST.LEAD ENGINEER Work Phone: [facility] 03-30-2025 07:21-0400 Systolic blood pressure 102 mm[Hg] Fior Older FORENSIC SPECIALIST.LEAD ENGINEER Work Phone: [facility] 03-28-2025 15:56-0400 Body mass index (BMI) [Ratio] 28.09 kg/m2 Luz Queener PA-C Work Phone: [facility] 03-28-2025 15:56-0400 Body weight 79.47 kg Luz Queener PA-C Work Phone: [facility] 03-28-2025 15:56-0400 Diastolic blood pressure 74 mm[Hg] Luz Queener PA-C Work Phone: [facility] 03-28-2025 15:56-0400 Heart rate 81 /min Luz Queener PA-C Work Phone: [facility] 03-28-2025 15:56-0400 Respiratory rate 16 /min Luz Queener PA-C Work Phone: [facility] 03-28-2025 15:56-0400 SaO2% (BldA) [Mass fraction] 99 % Luz Queener PA-C Work Phone: [facility] 03-28-2025 15:56-0400 Systolic blood pressure 105 mm[Hg] Luz Queener PA-C Work Phone: [facility] 03-12-2025 08:50-0400 Body mass index (BMI) [Ratio] 28.96 kg/m2 Ana Bolaños MD Work Phone: [facility] 03-12-2025 08:50-0400 Body weight 81.92 kg Ana Bolaños MD Work Phone: [facility] 03-12-2025 08:50-0400 Diastolic blood pressure 82 mm[Hg] Ana Bolaños MD Work Phone: [facility] 03-12-2025 08:50-0400 Heart rate 87 /min Ana Bolaños MD Work Phone: [facility] 03-12-2025 08:50-0400 SaO2% (BldA) [Mass fraction] 96 % Ana Bolaños MD Work Phone: [facility] 03-12-2025 08:50-0400 Systolic blood pressure 118 mm[Hg] Ana Bolaños MD Work Phone: [facility] 03-07-2025 07:48-0400 Body mass index (BMI) [Ratio] 29.13 kg/m2 Jacquie Fermin FORENSIC SPECIALIST.LEAD ENGINEER Work Phone: [facility] 03-07-2025 07:48-0400 Body temperature 97.5 [degF] Jacquie Fermin FORENSIC SPECIALIST.LEAD ENGINEER Work Phone: [facility] 03-07-2025 07:48-0400 Body weight 82.4 kg Jacquie Fermin FORENSIC SPECIALIST.LEAD ENGINEER Work Phone: [facility] 03-07-2025 07:48-0400 Diastolic blood pressure 78 mm[Hg] Jacquie Fermin FORENSIC SPECIALIST.LEAD ENGINEER Work Phone: [facility] 03-07-2025 07:48-0400 Heart rate 84 /min Jacquie Fermin FORENSIC SPECIALIST.LEAD ENGINEER Work Phone: [facility] 03-07-2025 07:48-0400 Respiratory rate 16 /min Jacquie Fermin FORENSIC SPECIALIST.LEAD ENGINEER Work Phone: [facility] 03-07-2025 07:48-0400 SaO2% (BldA) [Mass fraction] 99 % Jacquie Fermin FORENSIC SPECIALIST.LEAD ENGINEER Work Phone: [facility] 03-07-2025 07:48-0400 Systolic blood pressure 120 mm[Hg] Jacquie Fermin FORENSIC SPECIALIST.LEAD ENGINEER Work Phone: [facility] 02-08-2025 14:51-0400 Body mass index (BMI) [Ratio] 29.02 kg/m2 Richie Haury FORENSIC SPECIALIST.LEAD ENGINEER Work Phone: [facility] 02-08-2025 14:51-0400 Body weight 82.1 kg Richie Haury FORENSIC SPECIALIST.LEAD ENGINEER Work Phone: [facility] 02-08-2025 14:51-0400 Diastolic blood pressure 78 mm[Hg] Richie Haury FORENSIC SPECIALIST.LEAD ENGINEER Work Phone: [facility] 02-08-2025 14:51-0400 Systolic blood pressure 118 mm[Hg] Richie Haury FORENSIC SPECIALIST.LEAD ENGINEER Work Phone: [facility] 01-25-2025 09:36-0400 Body mass index (BMI) [Ratio] 29.82 kg/m2 Fior Older FORENSIC SPECIALIST.LEAD ENGINEER Work Phone: [facility] 01-25-2025 09:36-0400 Body weight 84.37 kg Fior Older FORENSIC SPECIALIST.LEAD ENGINEER Work Phone: [facility] 01-25-2025 09:36-0400 Diastolic blood pressure 94 mm[Hg] Fior Older FORENSIC SPECIALIST.LEAD ENGINEER Work Phone: [facility] 01-25-2025 09:36-0400 Heart rate 87 /min Fior Older FORENSIC SPECIALIST.LEAD ENGINEER Work Phone: [facility] 01-25-2025 09:36-0400 Respiratory rate 16 /min Fior Older FORENSIC SPECIALIST.LEAD ENGINEER Work Phone: [facility] 01-25-2025 09:36-0400 SaO2% (BldA) [Mass fraction] 98 % Fior Older FORENSIC SPECIALIST.LEAD ENGINEER Work Phone: [facility] 01-25-2025 09:36-0400 Systolic blood pressure 134 mm[Hg] Fior Alvarez APRN.LEAD ENGINEER Work Phone: [facility] 11-10-2024 08:38-0500 Diastolic blood pressure 83 mm[Hg] Ana Bolaños MD Work Phone: [facility] 11-10-2024 08:38-0500 Heart rate 85 /min Ana Bolaños MD Work Phone: [facility] 11-10-2024 08:38-0500 Systolic blood pressure 127 mm[Hg] Ana Bolaños MD Work Phone: [facility] 11-10-2024 07:59-0500 Body mass index (BMI) [Ratio] 31.46 kg/m2 Ana Bolaños MD Work Phone: [facility] 11-10-2024 07:59-0500 Body weight 89 kg Ana Bolaños MD Work Phone: [facility] 11-10-2024 07:59-0500 Respiratory rate 16 /min Ana Bolaños MD Work Phone: [facility] 09-05-2024 06:57-0500 Body height 168.2 cm Katarina [place] FORENSIC SPECIALIST.LEAD ENGINEER Work Phone: [facility] 09-05-2024 06:57-0500 Body mass index (BMI) [Ratio] 33.7 kg/m2 Katarina Bessie FORENSIC SPECIALIST.LEAD ENGINEER Work Phone: [facility] 09-05-2024 06:57-0500 Body weight 95.35 kg Katarina Bessie FORENSIC SPECIALIST.LEAD ENGINEER Work Phone: [facility] 09-05-2024 06:57-0500 Diastolic blood pressure 72 mm[Hg] Katarina [place] FORENSIC SPECIALIST.LEAD ENGINEER Work Phone: [facility] 09-05-2024 06:57-0500 Systolic blood pressure 124 mm[Hg] Katarina Bessie FORENSIC SPECIALIST.LEAD ENGINEER Work Phone: [facility] 11-29-2024 08:52-0500 Diastolic blood pressure 80 mm[Hg] Ana Bolaños MD Work Phone: [facility] 08-11-2024 08:52-0500 Systolic blood pressure 116 mm[Hg] Ana Bolaños MD Work Phone: [facility] 08-11-2024 08:50-0500 Body mass index (BMI) [Ratio] 34.51 kg/m2 Ana Bolaños MD Work Phone: [facility] 08-11-2024 08:50-0500 Body weight 97.41 kg Ana Bolaños MD Work Phone: [facility] 08-11-2024 08:50-0500 Heart rate 91 /min Ana Bolaños MD Work Phone: [facility] 08-11-2024 08:50-0500 SaO2% (BldA) [Mass fraction] 97 % Ana Bolaños MD Work Phone: [facility] 07-18-2024 16:14-0500 Body mass index (BMI) [Ratio] 35.43 kg/m2 Luz Queener PA-C Work Phone: [facility] 07-18-2024 16:14-0500 Body weight 100 kg Luz Queener PA-C Work Phone: [facility] 07-18-2024 16:14-0500 Diastolic blood pressure 85 mm[Hg] Luz Queener PA-C Work Phone: [facility] 07-18-2024 16:14-0500 Heart rate 87 /min Luz Queener PA-C Work Phone: [facility] 07-18-2024 16:14-0500 Respiratory rate 12 /min Luz Queener PA-C Work Phone: [facility] 07-18-2024 16:14-0500 SaO2% (BldA) [Mass fraction] 96 % Luz Queener PA-C Work Phone: [facility] 07-18-2024 16:14-0500 Systolic blood pressure 128 mm[Hg] Luz Christinaer PA-C Work Phone: [facility] 05-09-2024 08:11-0400 Body height 168 cm Ana Bolaños MD Work Phone: [facility] 05-09-2024 08:11-0400 Body mass index (BMI) [Ratio] 38.44 kg/m2 Ana Bolaños MD Work Phone: [facility] 05-09-2024 08:11-0400 Body weight 108.5 kg Ana Bolaños MD Work Phone: [facility] 05-09-2024 08:11-0400 Diastolic blood pressure 78 mm[Hg] Ana Bolaños MD Work Phone: [facility] 05-09-2024 08:11-0400 Heart rate 80 /min Ana Bolaños MD Work Phone: [facility] 05-09-2024 08:11-0400 SaO2% (BldA) [Mass fraction] 97 % Ana Bolaños MD Work Phone: [facility] 05-09-2024 08:11-0400 Systolic blood pressure 124 mm[Hg] Ana Bolaños MD Work Phone: [facility] 03-28-2024 06:56-0400 Body mass index (BMI) [Ratio] 38.77 kg/m2 Luz Christinaer PA-C Work Phone: [facility] 03-28-2024 06:56-0400 Body weight 109.77 kg Luz Christinaer PA-C Work Phone: [facility] 03-28-2024 06:56-0400 Diastolic blood pressure 74 mm[Hg] Luz Christinaer PA-C Work Phone: [facility] 03-28-2024 06:56-0400 Heart rate 80 /min Luz Queener PA-C Work Phone: [facility] 03-28-2024 06:56-0400 Respiratory rate 16 /min Luz Christinaer PA-C Work Phone: [facility] 03-28-2024 06:56-0400 SaO2% (BldA) [Mass fraction] 97 % Luz Meeks PA-C Work Phone: [facility] 03-28-2024 06:56-0400 Systolic blood pressure 132 mm[Hg] Luz POLLOCK-C Work Phone: [facility] 03-03-2024 06:57-0400 Body mass index (BMI) [Ratio] 38.61 kg/m2 Jacquie Fermin FORENSIC SPECIALIST.LEAD ENGINEER Work Phone: [facility] 03-03-2024 06:57-0400 Body weight 109.32 kg Jacquie Fermin FORENSIC SPECIALIST.LEAD ENGINEER Work Phone: [facility] 03-03-2024 06:57-0400 Diastolic blood pressure 84 mm[Hg] Jacquie Fermin FORENSIC SPECIALIST.LEAD ENGINEER Work Phone: [facility] 03-03-2024 06:57-0400 Heart rate 89 /min Jacquie PedersenFermin FORENSIC SPECIALIST.LEAD ENGINEER Work Phone: [facility] 03-03-2024 06:57-0400 Respiratory rate 16 /min Jacquie Fermin FORENSIC SPECIALIST.LEAD ENGINEER Work Phone: [facility] 03-03-2024 06:57-0400 SaO2% (BldA) [Mass fraction] 94 % Jacquie SpannFermin FORENSIC SPECIALIST.LEAD ENGINEER Work Phone: [facility] 03-03-2024 06:57-0400 Systolic blood pressure 118 mm[Hg] Jacquie Fermin FORENSIC SPECIALIST.LEAD ENGINEER Work Phone: [facility] 02-04-2024 07:04-0400 Body mass index (BMI) [Ratio] 39.57 kg/m2 Jacquie Fermin FORENSIC SPECIALIST.LEAD ENGINEER Work Phone: [facility] 02-04-2024 07:04-0400 Body weight 112.04 kg Jacquie Fermin FORENSIC SPECIALIST.LEAD ENGINEER Work Phone: [facility] 02-04-2024 07:04-0400 Diastolic blood pressure 88 mm[Hg] Jacquie Fermin FORENSIC SPECIALIST.LEAD ENGINEER Work Phone: [facility] 02-04-2024 07:04-0400 Heart rate 84 /min Jacquie Fermin FORENSIC SPECIALIST.LEAD ENGINEER Work Phone: [facility] 02-04-2024 07:04-0400 Respiratory rate 16 /min Jacquie Fermin FORENSIC SPECIALIST.LEAD ENGINEER Work Phone: [facility] 02-04-2024 07:04-0400 SaO2% (BldA) [Mass fraction] 95 % Jacquie Fermin FORENSIC SPECIALIST.LEAD ENGINEER Work Phone: [facility] 02-04-2024 07:04-0400 Systolic blood pressure 128 mm[Hg] Jacquie Fermin FORENSIC SPECIALIST.LEAD ENGINEER Work Phone: [facility] 01-07-2024 09:26-0400 Diastolic blood pressure 70 mm[Hg] Fior Older FORENSIC SPECIALIST.LEAD ENGINEER Work Phone: [facility] 01-07-2024 09:26-0400 Systolic blood pressure 113 mm[Hg] Fior Older FORENSIC SPECIALIST.LEAD ENGINEER Work Phone: [facility] 01-07-2024 07:23-0400 Body mass index (BMI) [Ratio] 39.09 kg/m2 Fior Older FORENSIC SPECIALIST.LEAD ENGINEER Work Phone: [facility] 01-07-2024 07:23-0400 Body weight 110.68 kg Fior Older FORENSIC SPECIALIST.LEAD ENGINEER Work Phone: [facility] 01-07-2024 07:23-0400 Heart rate 84 /min Fior Older FORENSIC SPECIALIST.LEAD ENGINEER Work Phone: [facility] 01-07-2024 07:23-0400 Respiratory rate 16 /min Fior Older FORENSIC SPECIALIST.LEAD ENGINEER Work Phone: [facility] 01-07-2024 07:23-0400 SaO2% (BldA) [Mass fraction] 96 % Fior Older FORENSIC SPECIALIST.LEAD ENGINEER Work Phone: [facility] 09-02-2023 10:22-0500 Body height 168.3 cm Gavin Moctezuma MD Work Phone: [facility] 09-02-2023 10:22-0500 Body mass index (BMI) [Ratio] 36.68 kg/m2 Gavin Moctezuma MD Work Phone: [facility] 09-02-2023 10:22-0500 Body temperature 96.49 [degF] Gavin Moctezuma MD Work Phone: [facility] 09-02-2023 10:22-0500 Body weight 103.87 kg Gavin Moctezuma MD Work Phone: [facility] 09-02-2023 10:22-0500 Diastolic blood pressure 83 mm[Hg] Gavin Moctezuma MD Work Phone: [facility] 09-02-2023 10:22-0500 Heart rate 85 /min Gavin Moctezuma MD Work Phone: [facility] 09-02-2023 10:22-0500 Respiratory rate 16 /min Gavin Moctezuma MD Work Phone: [facility] 09-02-2023 10:22-0500 Systolic blood pressure 128 mm[Hg] Gavin Moctezuma MD Work Phone: [facility] 08-19-2023 07:53-0500 Body weight 103.42 kg Fior Older FORENSIC SPECIALIST.LEAD ENGINEER Work Phone: [facility] 08-19-2023 07:53-0500 Diastolic blood pressure 84 mm[Hg] Fior Older FORENSIC SPECIALIST.LEAD ENGINEER Work Phone: [facility] 08-19-2023 07:53-0500 Heart rate 76 /min Fior Older FORENSIC SPECIALIST.LEAD ENGINEER Work Phone: [facility] 08-19-2023 07:53-0500 Respiratory rate 16 /min Fior Older FORENSIC SPECIALIST.LEAD ENGINEER Work Phone: [facility] 08-19-2023 07:53-0500 SaO2% (BldA) [Mass fraction] 96 % Fior Older FORENSIC SPECIALIST.LEAD ENGINEER Work Phone: [facility] 08-19-2023 07:53-0500 Systolic blood pressure 136 mm[Hg] Fior Older FORENSIC SPECIALIST.LEAD ENGINEER Work Phone: [facility] 04-05-2023 14:00-0400 Body height 170.2 cm Garret Zupke PA Work Phone: [facility] 04-05-2023 14:00-0400 Body mass index (BMI) [Ratio] 33.27 kg/m2 Garret Zupke PA Work Phone: [facility] 04-05-2023 14:00-0400 Body temperature 96.1 [degF] Garret Zupke PA Work Phone: [facility] 04-05-2023 14:00-0400 Body weight 96.34 kg Garret Zupke PA Work Phone: [facility] 04-05-2023 14:00-0400 Diastolic blood pressure 84 mm[Hg] Garret Zupke PA Work Phone: [facility] 04-05-2023 14:00-0400 Heart rate 94 /min Garret Zupke PA Work Phone: [facility] 04-05-2023 14:00-0400 Respiratory rate 16 /min Garret Zupke PA Work Phone: [facility] 04-05-2023 14:00-0400 Systolic blood pressure 119 mm[Hg] Garret Zupke PA Work Phone: [facility] 12-04-2022 07:17-0400 Body weight 102.97 kg Fior Older FORENSIC SPECIALIST.LEAD ENGINEER Work Phone: [facility] 12-04-2022 07:17-0400 Diastolic blood pressure 78 mm[Hg] Fior Older FORENSIC SPECIALIST.LEAD ENGINEER Work Phone: [facility] 12-04-2022 07:17-0400 Heart rate 88 /min Fior Older FORENSIC SPECIALIST.LEAD ENGINEER Work Phone: [facility] 12-04-2022 07:17-0400 Respiratory rate 16 /min Fior Older FORENSIC SPECIALIST.LEAD ENGINEER Work Phone: [facility] 12-04-2022 07:17-0400 Systolic blood pressure 114 mm[Hg] Fior Older FORENSIC SPECIALIST.LEAD ENGINEER Work Phone: [facility] 12-02-2022 13:05-0400 Body height 170.2 cm Garret Zupke PA Work Phone: [facility] 12-02-2022 13:05-0400 Body mass index (BMI) [Ratio] 35.77 kg/m2 Garret Zupke PA Work Phone: [facility] 12-02-2022 13:05-0400 Body temperature 96.01 [degF] Garret Zupke PA Work Phone: [facility] 12-02-2022 13:05-0400 Body weight 103.6 kg Garret Zupke PA Work Phone: [facility] 12-02-2022 13:05-0400 Diastolic blood pressure 78 mm[Hg] Garret Zupke PA Work Phone: [facility] 12-02-2022 13:05-0400 Heart rate 98 /min Garret Zupke PA Work Phone: [facility] 12-02-2022 13:05-0400 Respiratory rate 16 /min Garret Zupke PA Work Phone: [facility] 12-02-2022 13:05-0400 Systolic blood pressure 123 mm[Hg] Garret Zupke PA Work Phone: [facility] 10-08-2022 09:07-0500 Body height 170.2 cm Gavin Moctezuma MD Work Phone: [facility] Comment on above: [facility] 10-08-2022 09:07-0500 Body mass index (BMI) [Ratio] 38.97 kg/m2 Gavin Moctezuma MD Work Phone: [facility] 10-08-2022 09:07-0500 Body temperature 94.89 [degF] Gavin Moctezuma MD Work Phone: [facility] 10-08-2022 09:07-0500 Body weight 112.86 kg Gavin Moctezuma MD Work Phone: [facility] 10-08-2022 09:07-0500 Diastolic blood pressure 72 mm[Hg] Gavin Moctezuma MD Work Phone: [facility] 10-08-2022 09:07-0500 Heart rate 105 /min Gavin Moctezuma MD Work Phone: [facility] 10-08-2022 09:07-0500 Respiratory rate 18 /min Gavin Moctezuma MD Work Phone: [facility] 10-08-2022 09:07-0500 Systolic blood pressure 127 mm[Hg] Gavin Moctezuma MD Work Phone: [facility] 09-10-2022 11:09-0500 Body height 170.2 cm Garret Zupke PA Work Phone: [facility] Comment on above: [facility] 09-10-2022 11:09-0500 Body mass index (BMI) [Ratio] 41.35 kg/m2 Garret Zupke PA Work Phone: [facility] 09-10-2022 11:09-0500 Body temperature 95.31 [degF] Garret Zupke PA Work Phone: [facility] 09-10-2022 11:09-0500 Body weight 119.75 kg Garret Zupke PA Work Phone: [facility] 09-10-2022 11:09-0500 Diastolic blood pressure 77 mm[Hg] Garret Zupke PA Work Phone: [facility] 09-10-2022 11:09-0500 Heart rate 101 /min Garret Zupke PA Work Phone: [facility] 09-10-2022 11:09-0500 Respiratory rate 18 /min Garret Zupke PA Work Phone: [facility] 09-10-2022 11:09-0500 SaO2% (BldA) [Mass fraction] 99 % Garret Zupke PA Work Phone: [facility] 09-10-2022 11:09-0500 Systolic blood pressure 136 mm[Hg] Garret Zupke PA Work Phone: [facility] 08-28-2022 11:48-0500 Body weight 121.56 kg Fior Older FORENSIC SPECIALIST.LEAD ENGINEER Work Phone: [facility] 08-28-2022 11:48-0500 Diastolic blood pressure 76 mm[Hg] Fior Older FORENSIC SPECIALIST.LEAD ENGINEER Work Phone: [facility] 08-28-2022 11:48-0500 Heart rate 92 /min Fior Older FORENSIC SPECIALIST.LEAD ENGINEER Work Phone: [facility] 08-28-2022 11:48-0500 Respiratory rate 16 /min Fior Older FORENSIC SPECIALIST.LEAD ENGINEER Work Phone: [facility] 08-28-2022 11:48-0500 Systolic blood pressure 128 mm[Hg] Fior Older FORENSIC SPECIALIST.LEAD ENGINEER Work Phone: [facility] 04-06-2022 16:34-0400 Body temperature 96.91 [degF] Alexander Quinteros Jr., MD Work Phone: [facility] 04-06-2022 16:34-0400 Body weight 116.12 kg Alexander Quinteros Jr., MD Work Phone: [facility] 04-06-2022 16:34-0400 Diastolic blood pressure 86 mm[Hg] Alexander Quinteros Jr., MD Work Phone: [facility] 04-06-2022 16:34-0400 Heart rate 94 /min Alexander Quinteros Jr., MD Work Phone: [facility] 04-06-2022 16:34-0400 Respiratory rate 18 /min Alexander Quinteros Jr., MD Work Phone: [facility] 04-06-2022 16:34-0400 SaO2% (BldA) [Mass fraction] 96 % Alexander Quinteros Jr., MD Work Phone: [facility] 04-06-2022 16:34-0400 Systolic blood pressure 118 mm[Hg] Alexander Quinteros Jr., MD Work Phone: [facility] 11-18-2021 14:55-0500 Diastolic blood pressure 83 mm[Hg] Gavin Moctezuma MD Work Phone: [facility] 11-18-2021 14:55-0500 Heart rate 105 /min Gavin Moctezuma MD Work Phone: [facility] 11-18-2021 14:55-0500 Respiratory rate 15 /min Gavin Moctezuma MD Work Phone: [facility] 11-18-2021 14:55-0500 SaO2% (BldA) [Mass fraction] 99 % Gavin Moctezuma MD Work Phone: [facility] 11-18-2021 14:55-0500 Systolic blood pressure 127 mm[Hg] Gavin Moctezuma MD Work Phone: [facility] 11-18-2021 13:57-0500 Body temperature 97 [degF] Gavin Moctezuma MD Work Phone: [facility] 11-18-2021 11:18-0500 Body mass index (BMI) [Ratio] 39 kg/m2 Gavin Moctezuma MD Work Phone: [facility] 11-18-2021 11:18-0500 Body weight 112.95 kg Gavin Moctezuma MD Work Phone: [facility] 11-18-2021 11:18-0500 Body height 170.2 cm Gavin Moctezuma MD Work Phone: [facility] 11-14-2021 14:09-0500 Body height 170.2 cm Gavin Moctezuma MD Work Phone: [facility] 11-14-2021 14:09-0500 Body mass index (BMI) [Ratio] 39.09 kg/m2 Gavin Moctezuma MD Work Phone: [facility] 11-14-2021 14:09-0500 Body temperature 95.2 [degF] Gavin Moctezuma MD Work Phone: [facility] 11-14-2021 14:09-0500 Body weight 113.22 kg Gavin Moctezuma MD Work Phone: [facility] 11-14-2021 14:09-0500 Diastolic blood pressure 97 mm[Hg] Gavin Moctezuma MD Work Phone: [facility] 11-14-2021 14:09-0500 Heart rate 118 /min Gavin Moctezuma MD Work Phone: [facility] 11-14-2021 14:09-0500 Respiratory rate 20 /min Gavin Moctezuma MD Work Phone: [facility] 11-14-2021 14:09-0500 SaO2% (BldA) [Mass fraction] 97 % Gavin Moctezuma MD Work Phone: [facility] 11-14-2021 14:09-0500 Systolic blood pressure 139 mm[Hg] Gavin Moctezuma MD Work Phone: [facility] 10-13-2019 09:35-0500 Body temperature 97.59 [degF] Rubin Washington MD Work Phone: [facility] Work Phone: 10-13-2019 09:35-0500 Diastolic blood pressure 58 mm[Hg] Rubin Washington MD [facility] Phone: [facility] Work Phone: 10-13-2019 09:35-0500 Heart rate 100 /min Rubin Washington MD Work Phone: [facility] Work Phone: 10-13-2019 09:35-0500 Respiratory rate 16 /min Rubin Washington MD Work Phone: [facility] Work Phone: 10-13-2019 09:35-0500 SaO2% (BldA) [Mass [...] 117.03 kg Rubin Washington MD Work Phone: [employer] Work Phone: Encounters Encounter Date Encounter Type Care Provider Facility Start: 07-10-2025 Encounter for other preprocedural examination [facility] Start: 07-10-2025 [facility] Facility:[facility] Start: 07-03-2025 End: 07-03-2025 ambulatory [facility] Facility:[facility] [place] Start: 06-25-2025 End: 06-25-2025 ambulatory [facility] Facility:[facility] Start: 06-25-2025 Encounter for other preprocedural examination [facility] Start: 06-08-2025 End: 06-08-2025 ambulatory [facility] Facility:[facility] Start: 06-01-2025 End: 06-01-2025 ambulatory [facility] Facility:[facility] [place] Start: 05-11-2025 End: 05-11-2025 Office outpatient visit 25 minutes Fior Alvarez APRN.CNP Work Phone: [facility] [place] Comment on above: Essential hypertensi on (Primary Dx); Extremity edema; Hypokalemia; Encounter for immunization Start: 05-11-2025 End: 05-11-2025 [facility] Facility:[facility] Start: 05-07-2025 End: 05-07-2025 Patient encounter procedure Ash Chowdhury MD Work Phone: OB/Gynecology Comment on above: Post-operative state (Primary Dx); Vaginal atrophy Start: 05-07-2025 End: 05-07-2025 [facility] Facility:[facility] Start: 05-02-2025 End: 05-02-2025 Office outpatient visit 25 minutes Fior Alvarez APRN.CNP Work Phone: [facility] [place] Comment on above: Essential hypertensi on (Primary Dx); Hypokalemia; Extremity edema Start: 05-02-2025 End: 05-02-2025 [facility] Facility:[facility] Start: 04-30-2025 End: 04-30-2025 Follow-up encounter Fior Alvarez APRN.CNP Work Phone: [facility] [place] Start: 04-27-2025 End: 04-27-2025 [facility] Facility:[facility] Start: 04-20-2025 End: 04-24-2025 Refill Luz Meeks PA-C Work Phone: Neurology Comment on above: Refill Request Start: 04-18-2025 End: 04-18-2025 [facility] Facility:[facility] Start: 04-13-2025 End: 04-13-2025 ambulatory Saundra Randle Facility:[facility] Start: 04-12-2025 End: 04-13-2025 Follow-up encounter Angelique Bradford PA-C Work Phone: [facility] [place] Comment on above: Results Start: 04-10-2025 End: 04-10-2025 Office outpatient new 45 minutes Angelique Bradford PA-C Work Phone: [facility] [place] Comment on above: Dysuria (Primary Dx) ; Uterine leiomyoma, unspecified location Start: 04-10-2025 End: 04-10-2025 [facility] Facility:[facility] Start: 04-09-2025 End: 04-09-2025 Patient encounter procedure Ash Chowdhury MD Work Phone: OB/Gynecology Comment on above: Fluid in endometrial cavity (Primary Dx); Visit for pre-operative examination Start: 04-09-2025 End: 04-09-2025 Preprocedural examination done Ash Chowdhury MD Work Phone: [facility] Start: 04-09-2025 End: 04-09-2025 [facility] Facility:[facility] Start: 04-05-2025 End: 04-05-2025 ambulatory [facility] Facility:[facility] Start: 04-05-2025 End: 04-06-2025 Follow-up encounter Fior Alvarez APRN.LEAD ENGINEER Work Phone: [facility] [place] Start: 04-03-2025 End: 04-27-2025 ambulatory Fior Alvarez APRN.LEAD ENGINEER Work Phone: [facility] [place] Comment on above: BMP results - low po tassium Start: 03-30-2025 End: 03-30-2025 Office outpatient visit 25 minutes Fior Alvarez APRN.CNP Work Phone: [facility] [place] Comment on above: Preop exam for inter nal medicine (Primary Dx); Essential hypertension; Acquired hypothyroidism; Obstructive sleep apnea syndrome; Migraine without aura and without status migrainosus, not intractable; Type 2 diabetes mellitus with unspecified complications (HCC) Start: 03-30-2025 End: 03-30-2025 Patient encounter status Fior Alvarez APRN.LEAD ENGINEER Work Phone: [facility] Work Phone: Start: 03-30-2025 End: 03-30-2025 [facility] Facility:[facility] Start: 03-30-2025 Encounter for other preprocedural examination FIOR ALVAREZ [facility] Start: 03-28-2025 End: 03-28-2025 Patient encounter procedure Luz Meeks PA-C Work Phone: Neurology Comment on above: Paresthesia of both feet (Primary Dx); Neuropathy Start: 03-28-2025 End: 03-28-2025 [facility] Facility:[facility] Start: 03-28-2025 End: 04-02-2025 Telephone encounter Ash Chowdhury MD Work Phone: OB/Gynecology Comment on above: Patient Question Start: 03-22-2025 End: 03-22-2025 [facility] Facility:[facility] Start: 03-22-2025 End: 03-22-2025 Manual pelvic [...] Ana Bolaños MD Work Phone: [facility] [place] Comment on above: Type 2 diabetes jocelyn itus with diabetic microalbuminuria, without long-term current use of insulin (HCC) (Primary Dx); Acquired hypothyroidism; Class 2 obesity due to excess calories without serious comorbidity with body mass index (BMI) of 39.0 to 39.9 in adult; Obstructive sleep apnea syndrome; Hypokalemia Start: 03-12-2025 End: 03-12-2025 [facility] Facility:[facility] Start: 03-09-2025 End: 05-09-2025 Follow-up encounter Jacquie Clarke APRN.LEAD ENGINEER Work Phone: [facility] [place] Start: 03-08-2025 End: 03-08-2025 [facility] Facility:[facility] Start: 03-07-2025 End: 03-07-2025 Office outpatient visit 25 minutes Jacquie Clarke APRN.BRITANY Work Phone: [facility] [place] Comment on above: Lower abdominal pain (Primary Dx); Hematuria, unspecified type Start: 03-07-2025 End: 03-07-2025 [facility] Facility:[facility] Start: 03-05-2025 End: 05-05-2025 Follow-up encounter Fior Alvarez APRN.CNP Work Phone: [facility] [place] Start: 03-02-2025 End: 03-02-2025 ambulatory [place] [facility] Facility:[facility] [place] Start: 03-02-2025 End: 03-02-2025 ambulatory [facility] Facility:[facility] Start: 02-27-2025 End: 03-02-2025 ambulatory Ana Bolaños MD Work Phone: [facility] Start: 02-09-2025 End: 04-11-2025 Follow-up encounter Richie Newman APRN.CNP Work Phone: OB/Gynecology Start: 02-09-2025 End: 02-09-2025 Patient encounter procedure Emg 1 Neur [facility] (Max Weight: 850) Neurology Start: 02-09-2025 End: 02-09-2025 ambulatory [facility] Neurology Comment on above: EMG Start: 02-08-2025 End: 02-08-2025 [facility] Facility:[facility] Start: 02-08-2025 End: 02-08-2025 Patient encounter procedure Richie Newman APRN.CNP Work Phone: OB/Gynecology Comment on above: Pelvic pain in femal e (Primary Dx); Vaginal discharge; Thickened endometrium; Screening for HPV (human papillomavirus); Screening for cervical cancer Refill Request Start: 02-07-2025 End: 04-09-2025 Follow-up encounter Fior Alvarez APRN.CNP Work Phone: [facility] [place] Start: 02-06-2025 ambulatory [facility] Facility:[facility] Start: 02-06-2025 End: 02-06-2025 Subsequent hospital visit by physician [facility] Work Phone: Radiology Comment on above: Uterine cyst [N85.8] Start: 01-29-2025 End: 02-09-2025 ambulatory Fior Alvarez APRN.CNP Work Phone: [facility] [place] Start: 01-29-2025 End: 02-09-2025 Patient encounter procedure Fior Alvarez FORENSIC SPECIALIST.LEAD ENGINEER Work Phone: [facility] [place] Comment on above: Appointment - January Start: 01-26-2025 End: 01-27-2025 Follow-up encounter Fior Alvarez FORENSIC SPECIALIST.LEAD ENGINEER Work Phone: [facility] [place] Comment on above: Results - Ct Start: 01-26-2025 ambulatory [facility] Facility:[facility] Start: 01-26-2025 End: 01-26-2025 Subsequent hospital visit by physician [facility] Comment on above: Right lower quadrant pain [R10.31] Right lower quadrant abdominal pain [R10.31] Start: 01-25-2025 End: 03-27-2025 Follow-up encounter Fior Antonio STANLEY.LEAD ENGINEER Work Phone: [facility] [place] Start: 01-25-2025 End: 01-25-2025 ambulatory [facility] Facility:[facility] Start: 01-25-2025 End: 01-25-2025 Office outpatient visit 25 minutes Fior Alvarez APRN.LEAD ENGINEER Work Phone: [facility] [place] Comment on above: Lower abdominal pain (Primary Dx); Right lower quadrant abdominal pain; Urinary tract infection without hematuria, site unspecified Start: 01-25-2025 End: 01-25-2025 [facility] Facility:[facility] Start: 01-24-2025 End: 03-26-2025 Follow-up encounter Lucille Brandt PA-C Work Phone: Neurology Start: 01-24-2025 End: 01-29-2025 Telephone encounter Ana Bolaños MD Work Phone: [facility] [place] Comment on above: Insurance Authorizat ion Start: 01-23-2025 End: 01-23-2025 ambulatory Ana Bolaños MD Work Phone: [facility] [place] Comment on above: Mounjaro - is it thien e to increase dose? Start: 01-22-2025 End: 01-22-2025 Subsequent hospital visit by physician Xr [facility] [place] [facility] Work Phone: Radiology Comment on above: Paresthesia of both feet [R20.2] Start: 01-22-2025 End: 01-22-2025 ambulatory [facility] Facility:[facility] Start: 01-22-2025 End: 01-22-2025 Telemedicine consultation with patient Lucille Day Rikki KOLB Work Phone: Neurology Start: 01-22-2025 End: 01-22-2025 ambulatory Lucille Day Rikki KOLB Work Phone: Neurology Comment on above: Paresthesia of both feet (Primary Dx) Start: 12-29-2024 End: 12-29-2024 ambulatory [facility] Start: 12-15-2024 End: 12-15-2024 ambulatory [facility] Start: 12-13-2024 End: 12-13-2024 Refill Fior Alvarez APRN.CNP Work Phone: [facility] [place] Comment on above: Refill Request Start: 12-07-2024 End: 12-07-2024 ambulatory [facility] Start: 12-05-2024 End: 12-05-2024 ambulatory [facility] Start: 12-05-2024 End: 12-05-2024 ambulatory [facility] Facility:[facility] Start: 12-01-2024 End: 12-01-2024 ambulatory [facility] Start: 11-24-2024 End: 11-24-2024 ambulatory [facility] Start: 11-17-2024 End: 11-17-2024 ambulatory [facility] Start: 11-16-2024 ambulatory [facility] Start: 11-15-2024 End: 11-15-2024 ambulatory [facility] Facility:[facility] Start: 11-10-2024 End: 11-10-2024 ambulatory [facility] Facility:[facility] Start: 11-10-2024 End: 11-10-2024 Office outpatient [...] Phone: Geriatrics Start: 10-20-2024 End: 10-20-2024 ambulatory [facility] Facility:[facility] Start: 10-20-2024 End: 10-20-2024 Subsequent hospital visit by physician Screen Mammo [facility] Comment on above: Encounter for screen ing mammogram for breast cancer [Z12.31] Start: 10-12-2024 End: 10-12-2024 ambulatory [facility] Facility:[facility] [place] Start: 10-12-2024 End: 10-12-2024 ambulatory [facility] Facility:[facility] Start: 10-02-2024 End: 10-03-2024 Refill Fior Alvarez APRN.CNP Work Phone: [facility] [place] Comment on above: Refill Request Start: 09-05-2024 End: 09-05-2024 ambulatory [facility] Facility:[facility] Start: 09-05-2024 End: 09-05-2024 Patient encounter procedure Katarina Guillory APRN.CNP Work Phone: OB/Gynecology Comment on above: Encounter for gyneco logical examination (general) (routine) without abnormal findings (Primary Dx); Encounter for screening mammogram for breast cancer Start: 09-05-2024 End: 09-05-2024 Patient encounter status Katarina Guillory APRN.CNP Work Phone: [facility] Start: 08-23-2024 End: 08-28-2024 Telephone encounter Ana Bolaños MD Work Phone: [facility] [place] Comment on above: Medication Update Start: 08-19-2024 End: 08-19-2024 Telephone encounter Ana Bolaños MD Work Phone: [facility] [place] Comment on above: Insurance Authorizat ion Start: 08-14-2024 End: 08-15-2024 Refill Ana Bolaños MD Work Phone: [facility] [place] Comment on above: Med Change Request Start: 08-11-2024 End: 08-11-2024 ambulatory [facility] Facility:[facility] Start: 08-11-2024 End: 08-11-2024 Office outpatient visit 25 minutes Ana Bolaños MD Work Phone: [facility] [place] Comment on above: Acquired hypothyroid ism (Primary Dx); Class 2 obesity due to excess calories without serious comorbidity with body mass index (BMI) of 39.0 to 39.9 in adult; Obstructive sleep apnea syndrome; Hyperlipidemia, unspecified hyperlipidemia type; Essential hypertension; Hypokalemia Start: 08-09-2024 End: 08-09-2024 ambulatory [facility] Start: 07-18-2024 End: 07-18-2024 Patient encounter procedure uLz Meeks PA-C Work Phone: Neurology Comment on above: Neuropathy (Primary Dx) Start: 07-18-2024 End: 07-18-2024 [facility] Facility:[facility] Start: 07-16-2024 End: 07-17-2024 ambulatory Ana Bolaños MD Work Phone: [facility] [place] Comment on above: Potassium Start: 06-26-2024 End: 06-26-2024 ambulatory Ana Bolaños MD Work Phone: [facility] [place] Comment on above: Zepound Start: 06-26-2024 End: 06-26-2024 Telephone encounter Ana Bolaños MD Work Phone: [facility] [place] Start: 06-02-2024 End: 06-02-2024 ambulatory Luz Meeks PA-C Work Phone: Neurology Comment on above: Feet Neuropathy - br eak through pain Start: 05-09-2024 End: 05-09-2024 Patient encounter procedure Ana Bolaños MD Work Phone: [facility] Start: 05-09-2024 End: 05-09-2024 Periodic preventive [...] (HCC) Start: 04-13-2024 Refill Fior Alvarez APRN .LEAD ENGINEER Work Phone: [facility] [place] Comment on above: Refill Request Start: 04-12-2024 ambulatory Jacquie aquino FORENSIC SPECIALIST.LEAD ENGINEER Work Phone: [facility] Medicine [place] Comment on above: Zepbound next dose l evel Start: 04-05-2024 Telephone encounter Ana cuevas MD Work Phone: [facility] [place] Comment on above: Insurance Authorizat ion Start: 04-03-2024 End: 04-03-2024 ambulatory Jacquie Clarke APRN.LEAD ENGINEER Work Phone: Internal Medicine [place] Comment on above: Class 2 obesity due to excess calories without serious comorbidity with body mass index (BMI) of 39.0 to 39.9 in adult (Primary Dx) Start: 04-03-2024 End: 04-03-2024 Telemedicine consultation with patient Jacquie Barb Fermin STANLEY.LEAD ENGINEER Work Phone: [facility] [place] Start: 03-28-2024 End: 03-28-2024 Patient encounter procedure Luz Meeks PA-C Work Phone: Neurology Comment on above: Neuropathy (Primary Dx) Start: 03-03-2024 End: 03-03-2024 Patient encounter procedure Jacquie Clarke APRN.LEAD ENGINEER Work Phone: [facility] [place] Comment on above: Class 2 obesity due to excess calories without serious comorbidity with body mass index (BMI) of 38.0 to 38.9 in adult (Primary Dx) Start: 02-04-2024 End: 02-04-2024 Patient encounter procedure Jacquie Clarke FORENSIC SPECIALIST.LEAD ENGINEER Work Phone: [facility] [place] Comment on above: Class 2 obesity due to excess calories without serious comorbidity with body mass index (BMI) of 39.0 to 39.9 in adult (Primary Dx) Start: 01-29-2024 Refill Fior Alvarez FORENSIC SPECIALIST .LEAD ENGINEER Work Phone: Internal Medicine [place] Comment on above: Med Change Request Start: 01-18-2024 ambulatory Ana Perry Work Phone: Internal [facility] Start: 01-13-2024 ambulatory Fior Alvarez FORENSIC SPECIALIST .LEAD ENGINEER Work Phone: Internal Medicine [place] Comment on above: Neuropathy Start: 01-07-2024 End: 01-07-2024 Patient encounter procedure Fior Alvarez FORENSIC SPECIALIST.LEAD ENGINEER Work Phone: Internal Medicine [place] Comment on above: Class 2 severe obesi ty with serious comorbidity and body mass index (BMI) of 39.0 to 39.9 in adult, unspecified obesity type (HCC) (Primary Dx); Obstructive sleep apnea syndrome; Insomnia, unspecified type; Acquired hypothyroidism; Bipolar I disorder, most recent episode depressed (HCC); Essential hypertension Start: 12-21-2023 ambulatory Ana Perry Work Phone: Internal [facility] Start: 11-17-2023 Telephone encounter Fior Alvarez APRN.LEAD ENGINEER Work Phone: Internal Medicine [place] Comment on above: clarify directions o n rx Medication Problem Start: 11-05-2023 Refill Fior Alvarez FORENSIC SPECIALIST .LEAD ENGINEER Work Phone: Internal Medicine [place] Comment on above: Refill Request Start: 09-02-2023 End: 09-02-2023 ambulatory GAVIN MOCTEZUMA [facility] Start: 09-02-2023 End: 09-02-2023 Office outpatient visit 15 minutes Gavin Moctezuma MD Work Phone: Weight [facility] Comment on above: REMIGIO on CPAP; Primary hypertension; Deficiency of multiple nutrient elements; Hyperlipidemia, unspecified hyperlipidemia type; Class 2 severe obesity due to excess calories with serious comorbidity and body mass index (BMI) of 36.0 to 36.9 in adult Start: 08-19-2023 End: 08-19-2023 Patient encounter procedure Fior Alvarez APRN.CNP Work Phone: Internal Medicine [place] Comment on above: Burning sensation of feet (Primary Dx) Start: 08-03-2023 ambulatory Ana Ganta M D Work Phone: [facility] [place] Start: 08-02-2023 ambulatory Fior Alvarez APRN, .CNP Work Phone: Internal Medicine [place] Comment on above: Eletriptran HBr Start: 07-21-2023 ambulatory Ana Bolaños M D Work Phone: Internal [facility] Start: 05-28-2023 Refill Garret POLLOCK Work Phone: Weight [facility] Start: 04-05-2023 End: 04-05-2023 ambulatory GARRET TXCOMGIORGIURBANARA [facility] Start: 04-05-2023 End: 04-05-2023 Office outpatient visit 25 minutes Garret POLLOCK Work Phone: [facility] Comment on above: Primary hypertension (Primary Dx); REMIGIO on CPAP; Deficiency of multiple nutrient elements; Hyperlipidemia, unspecified hyperlipidemia type; Class 1 obesity due to excess calories with serious comorbidity and body mass index (BMI) of 33.0 to 33.9 in adult; High vitamin D level Start: 01-12-2023 End: 01-12-2023 ambulatory [facility] Work Phone: Start: 01-12-2023 End: 01-12-2023 Patient encounter procedure [facility] Start: 01-06-2023 End: 01-06-2023 Patient encounter procedure [facility] Start: 12-22-2022 Telephone encounter Erika Shah APRN.LEAD ENGINEER Work Phone: Neurology Comment on above: PAP Rx Faxed (DME: [facility] ) Start: 12-21-2022 End: 12-21-2022 ambulatory Erika Shah APRN.LEAD ENGINEER Work Phone: Neurology Comment on above: Obstructive sleep ap lakeshia syndrome (Primary Dx); Insomnia, unspecified type; Difficulty using biphasic positive airway pressure (BiPAP) machine Start: 12-21-2022 End: 12-21-2022 Telemedicine consultation with patient Erika Shah APRN.LEAD ENGINEER Work Phone: [facility] Start: 12-04-2022 End: 12-04-2022 Patient encounter procedure Fior Antonio MCELROYN.LEAD ENGINEER Work Phone: Internal Medicine [place] Comment on above: Essential hypertensi on (Primary Dx); Acquired hypothyroidism; Migraine without aura and without status migrainosus, not intractable; Elevated fasting glucose; Bipolar I disorder, most recent episode depressed (HCC); Mixed hyperlipidemia Start: 12-02-2022 End: 12-02-2022 [facility] Start: 12-02-2022 End: 12-02-2022 Office outpatient visit 25 minutes [facility] Work Phone: Weight Management [place] Comment on above: Primary hypertension (Primary Dx); REMIGIO on CPAP; Deficiency of multiple nutrient elements; Class 2 severe obesity due to excess calories with serious comorbidity and body mass index (BMI) of 35.0 to 35.9 in adult ([facility]); High cholesterol Start: 11-13-2022 End: 11-13-2022 [facility] Work Phone: Start: 11-13-2022 End: 11-13-2022 Patient encounter procedure [facility] Start: 10-15-2022 Telephone encounter Ana cuevas MD Work Phone: Internal Medicine [place] Comment on above: Medication Problem Start: 10-10-2022 End: 10-10-2022 [facility] Work Phone: Start: 10-10-2022 End: 10-10-2022 Patient encounter procedure [facility] Start: 10-08-2022 End: 10-08-2022 ambulatory GAVIN MOCTEZUMA [facility] Start: 10-08-2022 End: 10-08-2022 Postop follow up visit related to original px Gavin Moctezuma MD Work Phone: Weight [facility] Comment on above: Encounter for postop erative care (Primary Dx); Primary hypertension; Hyperlipidemia, unspecified hyperlipidemia type; Hypothyroidism, unspecified type; REMIGIO (obstructive sleep apnea); Class 2 obesity due to excess calories with body mass index (BMI) of 38.0 to 38.9 in adult, unspecified whether serious comorbidity present; Deficiency of multiple nutrient elements Start: 10-01-2022 Telephone encounter Marilou leone RD Work Phone: Weight [facility] Comment on above: Abnormal Lab (Low po tassium; Elevated Vitamin B12) Start: 09-30-2022 End: 09-30-2022 [facility] Work Phone: Start: 09-30-2022 End: 09-30-2022 Patient encounter procedure [facility] Start: 09-29-2022 Telephone encounter Ana cuevas MD Work Phone: Internal Medicine [place] Comment on above: Patient Update Start: 09-29-2022 End: 09-29-2022 [facility] Work Phone: Start: 09-29-2022 End: 09-29-2022 Patient encounter procedure [facility] Start: 09-21-2022 End: 09-21-2022 ambulatory Alexander Quinteros MD Work Phone: Neurology Comment on above: Obstructive sleep ap lakeshia (adult) (pediatric) (Primary Dx); Insomnia, unspecified type; Class 3 severe obesity with body mass index (BMI) of 40.0 to 44.9 in adult, unspecified obesity type, unspecified whether serious comorbidity present ([facility]) Start: 09-21-2022 End: 09-21-2022 Telemedicine consultation with patient Alexander Quinteros Jr., MD Work Phone: [facility] Start: 09-10-2022 End: 09-10-2022 ambulatory GARRET ZUPKE [facility] Start: 09-10-2022 End: 09-10-2022 Postop follow up visit related to original px Garret Funezgiorgibushra PHILL Work Phone: Weight Management [place] Comment on above: Encounter for postop erative care (Primary Dx); GERD without esophagitis; Deficiency of multiple nutrient elements; REMIGIO (obstructive sleep apnea); Hyperlipidemia, unspecified hyperlipidemia type; Primary hypertension; Morbid obesity with BMI of 40.0-44.9, adult (HCC) Start: 08-28-2022 End: 08-28-2022 Patient encounter procedure Fior Alvarez APRN.CNP Work Phone: Internal Medicine [place] Comment on above: Essential hypertensi on (Primary Dx); Prediabetes; Mixed hyperlipidemia; Acquired hypothyroidism; Bipolar I disorder, most recent episode depressed (HCC) Start: 08-13-2022 ambulatory Ana Perry Work Phone: Internal Medicine [facility] Comment on above: Encounter for other preprocedural examination (Primary Dx) Start: 08-13-2022 Patient encounter status Manju POLLOCK Work Phone: [facility] Start: 08-11-2022 ambulatory Ana Perry Work Phone: Internal [facility] Start: 06-26-2022 End: 06-26-2022 ambulatory [facility] Work Phone: Start: 06-26-2022 End: 06-26-2022 Patient encounter procedure [facility] Start: 04-09-2022 Telephone encounter Alexander Quinteros MD [...] obesity type, unspecified whether serious comorbidity present ([facility]) Start: 04-04-2022 End: 04-04-2022 [facility] Start: 03-20-2022 End: 03-20-2022 Subsequent hospital visit by physician Shalonda Bar MD Work Phone: [facility] [place] [facility] Start: 03-19-2022 End: 03-19-2022 [facility] Start: 03-11-2022 Telephone encounter Alexander Quinteros MD Work Phone: Neurology Comment on above: DME company Start: 02-24-2022 ambulatory Ana Perry Work Phone: Internal Medicine [facility] Start: 02-20-2022 End: 02-20-2022 Subsequent hospital visit by physician Shalonda Bar MD Work Phone: [facility] Dept Start: 02-20-2022 End: 02-20-2022 [facility] Start: 02-17-2022 Telephone encounter Alexander Quinteros MD Work Phone: Neurology Comment on above: Orders; CPAP Supplie s Start: 02-06-2022 ambulatory Alexander walker Jr., MD Work Phone: [facility] [place] Start: 02-06-2022 Follow-up encounter Alexander Quinteros MD Work Phone: Neurology Comment on above: Visit Follow Up Ques tion Start: 02-04-2022 Telephone encounter Alexander Quinteros MD Work Phone: Neurology Comment on above: Real Estate Agent/Broker - O ther (Faxed paperwork) Start: 01-26-2022 Telephone encounter Alexander Quinteros MD Work Phone: Neurology Comment on above: Orders Start: 01-23-2022 Telephone encounter Alexander Quinteros MD Work Phone: Neurology Comment on above: PSG results Start: 01-23-2022 End: 01-23-2022 Subsequent hospital visit by physician [facility]al[facility] Bar MD [facility] Start: 01-14-2022 End: 01-14-2022 [facility] Start: 01-09-2022 Refill Ana Perry Work Phone: Internal Medicine [place] Comment on above: Refill Request Start: 12-26-2021 Telephone encounter Alexander Quinteros MD Work Phone: Family Medicine [place] Comment on above: Insurance Authorizat ion (sleep study) Start: 12-26-2021 End: 12-26-2021 Subsequent hospital visit by physician Shalonda Bar MD Work Phone: [facility] Dept Start: 12-17-2021 Chart abstracting Alexander sharma MD Work Phone: Neurology Start: 12-15-2021 ambulatory Alexander walker MD Work Phone: Neurology Comment on above: Test Result Question Start: 12-12-2021 End: 12-12-2021 Patient encounter procedure [facility] Start: 12-04-2021 End: 12-04-2021 [facility] Start: 11-18-2021 End: 11-18-2021 Subsequent hospital visit by physician Gavin Moctezuma MD Work Phone: [facility] Surgery Comment on above: Postoperative abdomi nal [...] by physician Shalonda Bar MD Work Phone: [facility] [place] [facility] Start: 11-05-2021 Telephone encounter Ana cuevas MD Work Phone: [employer] Medicine [place] Comment on above: Patient Update Start: 11-01-2021 Patient encounter procedure [facility] Start: 10-09-2021 End: 10-09-2021 Subsequent hospital visit by physician [facility] Start: 09-15-2021 End: 09-15-2021 Subsequent hospital visit by physician Garret POLLOCK [facility] Start: 08-23-2021 Patient encounter procedure [facility] Start: 10-13-2019 End: 10-13-2019 Subsequent hospital visit by physician Rubin Washington MD Work Phone: [facility] Surgery Comment on above: Post-op pain (Primar y Dx); Subcutaneous mass of right thumb Procedures Date Procedure Procedure Detail Performing Clinician Start: 04-10-2025 Urnls dip stick/tabl et rgnt auto w/o microscopy Angelique GLEZC Work Phone: Start: 03-07-2025 Urnls dip stick/tabl et rgnt auto w/o microscopy Jacquie Calrke FORENSIC SPECIALIST.LEAD ENGINEER Work Phone: Start: 02-09-2025 Nerve conduction memo dies 5-6 studies Lucille Brandt PASimonC Work Phone: Start: 02-06-2025 Us pelvic nonobstetr ic image dcmtn limited/f/u Fior Alvarez FORENSIC SPECIALIST.LEAD ENGINEER Work Phone: Start: 01-26-2025 Ct abdomen & pelvis w/contrast material Fior Alvarez FORENSIC SPECIALIST.LEAD ENGINEER Work Phone: Start: 01-25-2025 Urnls dip stick/tabl et rgnt auto w/o microscopy Fior Older FORENSIC SPECIALIST.LEAD ENGINEER Work Phone: Start: 05-09-2024 Adult depression scr eening assessment Ana Bolaños MD Work Phone: Start: 04-27-2024 Lipid 1996 panel - S dontae or Plasma Ana Bolaños MD Work Phone: Start: 01-19-2024 Lipid 1996 panel - S dontae or Plasma Fior Older FORENSIC SPECIALIST.LEAD ENGINEER Work Phone: Start: 03-19-2023 Lipid 1996 panel - S dontae or Plasma Ana Bolaños MD Work Phone: Start: 12-04-2022 Hemoglobin A1c/Hemoglobin.total in Blood Fior Older FORENSIC SPECIALIST.LEAD ENGINEER Work Phone: Start: 09-30-2022 Dual energy X-ray absorptiometry Start: 09-30-2022 End: 09-30-2022 Screening mammography Start: 08-17-2022 Thyrotropin [Units/v olume] in Serum or Plasma Marilou Clifton RD Work Phone: Start: 11-18-2021 OPERATIVE REPORT Physic delanye Generic Start: 11-15-2021 Adult depression scr eening assessment Alexander Quinteros Jr., MD Work Phone: Start: 11-14-2021 Comprehensive metabo lic panel Garret Funezupke PA Work Phone: Start: 11-14-2021 Lipid panel Garret Raoe PA Work Phone: Start: 11-14-2021 Ecg routine ecg w/le ast 12 lds w/i&r Ramos Hayden FORENSIC SPECIALIST - LEAD ENGINEER Work Phone: Start: 11-14-2021 Lipid 1996 panel - S dontae or Plasma Marilou Clifton RD Work Phone: Start: 08-23-2021 Screening mammography Start: 04-17-2021 Colonoscopy Alexander sharma Jr., MD Work Phone: Start: 08-02-2020 Mammography Alexander sharma Jr., MD Work Phone: Start: 10-13-2019 Urine test visual color cmprsn chris Walters MD Work Phone: Plan of Treatment Date Care Activity Detail Author Start: 04-17-2031 Colonoscopy COLONOSCOPY [facility] Start: 04-17-2031 COLORECTAL CANCER SCREENING COLORECTAL CANCER SCREENING [facility] Start: 04-17-2031 Screening for malign ant neoplasm of colon [facility] Start: 04-27-2029 Lipid panel Lipid Screening [facility] Start: 01-18-2029 Lipid panel Lipid Screening [facility] Start: 03-19-2028 Lipid 1996 panel - S dontae or Plasma Lipid Screening [facility] Start: 03-19-2028 Lipid panel Lipid Screening [facility] Start: 2027 RSV Immunization age d 60 or older (1 - 1-dose 60+ series) RSV Immunization aged 60 or older (1 - 1-dose 60+ series) [facility] Start: 08-17-2027 LIPID SCREEN LIPID SCREEN [facility] Start: 08-11-2027 Diabetes Screening Diabetes Screenin g [facility] Start: 07-03-2027 DTaP/Tdap/Td vaccine (3 - Td or Tdap) DTaP/Tdap/Td vaccine (3 - Td or Tdap) [facility] Start: 07-03-2027 DTaP/Tdap/Td vaccine (3 - Td) DTaP/Tdap/Td vaccine (3 - Td) [facility] Work Phone: Start: 07-03-2027 DTaP/Tdap/Td Vaccine s (3 - Td or Tdap) DTaP/Tdap/Td Vaccines (3 - Td or Tdap) [facility] Start: 07-03-2027 Urine microalbumin profile DTaP,Tdap,Td Vaccine (3 - Td or Tdap) [facility] Start: 06-16-2027 DTaP/Tdap/Td Vaccine s (2 - Tdap) DTaP/Tdap/Td Vaccines (2 - Tdap) [facility] Start: 06-16-2027 Urine microalbumin profile [facility] Start: 04-27-2027 Diabetes Screening Diabetes Screenin g [facility] Start: 01-18-2027 Diabetes Screening Diabetes Screenin g [facility] Start: 11-14-2026 Lipid panel Lipid Panel [facility] Start: 09-04-2026 LIPID SCREEN LIPID SCREEN [facility] Start: 05-11-2026 Annual PCP Team Research And Development Director lee Disease Visit Annual PCP Team Chronic Disease Visit [facility] Start: 05-02-2026 Annual PCP Team Research And Development Director lee Disease Visit Annual PCP Team Chronic Disease Visit [facility] Start: 04-10-2026 Annual PCP Team Research And Development Director lee Disease Visit Annual PCP Team Chronic Disease Visit [facility] Start: 03-30-2026 Annual PCP Team Research And Development Director lee Disease Visit Annual PCP Team Chronic Disease Visit [facility] Start: 03-30-2026 Covid-19 Vaccine (8 - Pfizer risk ) Covid-19 Vaccine (8 - Pfizer risk ) [facility] Comment on above: Postponed from 11/25 (Declined at this time) Start: 03-30-2026 Hepatitis B Vaccine (1 of 3 - 19+ 3-dose series) Hepatitis B Vaccine (1 of 3 - 19+ 3-dose series) [facility] Comment on above: Postponed from 12/05 (Declined at this time) Start: 03-19-2026 Diabetes Screening Diabetes Screenin g [facility] Start: 03-12-2026 Annual PCP Team Research And Development Director lee Disease Visit Annual PCP Team Chronic Disease Visit [facility] Start: 03-07-2026 Annual PCP Team Research And Development Director lee Disease Visit Annual PCP Team Chronic Disease Visit [facility] Start: 03-02-2026 Hepatitis B screening Urine Albumin:Creatinine Ratio [facility] Start: 03-02-2026 Hepatitis B surface antibody level LDL Cholesterol [facility] Start: 02-08-2026 BP Controlled (<130/80) BP Controlle d (<130/80) [facility] Start: 02-08-2026 Screening for malign ant neoplasm of cervix Cervical Cancer Screening [facility] Start: 01-25-2026 Annual PCP Team Research And Development Director lee Disease Visit Annual PCP Team Chronic Disease Visit [facility] Start: 12-04-2025 DIABETES SCREEN DIABETES SCREEN [facility] Start: 11-10-2025 Annual PCP Team Research And Development Director lee Disease Visit Annual PCP Team Chronic Disease Visit [facility] Start: 11-10-2025 Diabetic foot examination Diabetic F oot Exam [facility] Start: 11-10-2025 Hepatitis B screening Urine Albumin:Creatinine Ratio [facility] Start: 10-20-2025 Screening for malign ant neoplasm of breast Mammogram Screening [facility] Start: 09-10-2025 End: 09-10-2025 Patient encounter procedure 09/10/2025 7:00 AM EST Office Visit OB/Gynecology [address] [place] [address] Katarina Guillory APRN.LEAD ENGINEER [address] [place] [address] annual OB/Gynecology Comment on above: annual Start: 09-07-2025 End: 09-07-2025 Patient encounter procedure 09/07/2025 7:00 AM EST Office Visit OB/Gynecology [address] [place] [address] Katarina Guillory, LIZETH.LEAD ENGINEER [address] [place] [address] Annual OB/Gynecology Comment on above: Annual Start: 09-05-2025 BP Controlled (<130/80) BP Controlle d (<130/80) [facility] Start: 08-17-2025 DIABETES SCREEN DIABETES SCREEN [facility] Start: 08-11-2025 Annual PCP Team Research And Development Director lee Disease Visit Annual PCP Team Chronic Disease Visit [facility] Start: 08-10-2025 End: 08-10-2025 Patient encounter procedure 08/10/2025 3:00 PM EST Office Visit Internal Medicine [place] [address] [place] [address] Ana Bolaños MD [address] [place] [address] 3 month follow up Internal Medicine [place] Comment on above: 3 month follow up Start: 07-25-2025 Hemoglobin A1c measurement HbA1C [facility] Start: 07-10-2025 End: 07-10-2025 Patient encounter procedure 07/10/2025 3:00 PM EDT Office Visit Neurology [address] [place], [place] [id number] Luz Meeks PA-C [address] [place], [place] [id number] 3m f/up Neurology Comment on above: 3m f/up Start: 07-04-2025 End: 07-04-2025 Patient encounter procedure 07/04/2025 4:00 PM EDT Office Visit Neurology [address] [place], [place] [id number] Luz Meeks PA-C [address] [place], [place] [id number] 3m f/up Neurology Comment on above: 3m f/up Start: 06-12-2025 End: 09-11-2025 Basic metabolic 2000 panel - Serum or Plasma BASIC METABOLIC PANEL Lab Routine Hypokalemia Expected: 06/12/2025, Expires: 09/11/2025 [facility] Work Phone: Comment on above: Expected: 06/12/2025 , Expires: 09/11/2025 Start: 06-11-2025 End: 09-10-2025 Basic metabolic 2000 panel - Serum or Plasma BASIC METABOLIC PANEL Lab Routine Essential hypertension Hypokalemia Expected: 06/11/2025 (Approximate), Expires: 09/10/2025 [facility] Work Phone: Comment on above: Expected: 06/11/2025 (Approximate), Expires: 09/10/2025 Start: 06-11-2025 End: 06-11-2025 Patient encounter procedure 06/11/2025 7:00 AM EDT Office Visit Internal Medicine [place] [address] [place], [place] [id number] Fior Alvarez APRN.LEAD ENGINEER [address] [place], [place] [id number] 3 mo follow up Internal Medicine [place] Comment on above: 3 mo follow up Start: 05-14-2025 Influenza vaccination Influenza Vacc ine (#1) [facility] Start: 05-11-2025 End: 05-11-2025 Patient encounter procedure 05/11/2025 7:00 AM EDT Office Visit Internal Medicine [place] [address] [place] [address] Fior Alvarez APRN.LEAD ENGINEER [address] [place] [address] Swelling/spironolactone Internal Medicine [place] Comment on above: Swelling/spironolact one Start: 05-10-2025 End: 05-10-2025 Patient encounter procedure 05/10/2025 7:40 AM EDT Office Visit Internal Medicine [place] [address] [place] [address] Fior Alvarez APRN.LEAD ENGINEER [address] [place] [address] 1 week BP follow up Internal Medicine [place] Comment on above: 1 week BP follow up Start: 05-09-2025 Annual PCP Team Research And Development Director lee Disease Visit Annual PCP Team Chronic Disease Visit [facility] Start: 05-09-2025 Anxiety Screening Anxiety Screening [facility] Start: 05-09-2025 BP Controlled (<130/80) BP Controlle d (<130/80) [facility] Start: 05-09-2025 Depression Screening Depression Scre ening [facility] Start: 05-09-2025 Pneumococcal vaccination Pneum ococcal Vaccine (3 of 3 - PCV) [facility] Start: 05-09-2025 Pneumococcal Vaccine : 50+ (3 of 3 - PCV) Pneumococcal Vaccine: 50+ (3 of 3 - PCV) [facility] Start: 05-09-2025 End: 05-09-2025 Patient encounter procedure 05/09/2025 7:00 AM EDT Office Visit Internal Medicine [place] [address] [place] [address] Fior Alvarez APRN.LEAD ENGINEER [address] [place] [address] 1 week BP follow up Internal Medicine [place] Comment on above: 1 week BP follow up Start: 05-07-2025 End: 05-07-2025 Patient encounter procedure 05/07/2025 4:20 PM EDT Office Visit OB/Gynecology [address] [place] [address] Ash Chowdhury MD [address] [place] [address] POST OP OB/Gynecology Comment on above: POST OP Start: 05-07-2025 End: 05-07-2025 ambulatory 05/07/2025 3:30 PM EDT Results Only [place] [facility] [address] [place] [address] [place] [facility] Start: 05-02-2025 End: 05-02-2025 Patient encounter procedure 05/02/2025 3:40 PM EDT Office Visit Internal Medicine [place] [address] [place] [address] Fior Alvarez APRN.LEAD ENGINEER [address] [place] [address] Spironolactone, swelling, and BP Internal Medicine [place] Comment on above: Spironolactone, swel ling, and BP Start: 05-02-2025 End: 08-01-2025 Basic metabolic 2000 panel - Serum or Plasma BASIC METABOLIC PANEL Lab Routine Hypokalemia Expected: 05/02/2025, Expires: 08/01/2025 [facility] Work Phone: Comment on above: Expected: 05/02/2025 , Expires: 08/01/2025 Start: 04-27-2025 Hepatitis B surface antibody level LDL Cholesterol [facility] Start: 04-27-2025 End: 04-27-2025 ambulatory 04/27/2025 7:15 AM EDT Results Only [facility] [address] [place] [address] [facility] Start: 04-18-2025 End: 07-18-2025 Basic metabolic 2000 panel - Serum or Plasma BASIC METABOLIC PANEL Lab Routine Medication management Expected: 04/18/2025, Expires: 07/18/2025 [facility] Work Phone: Comment on above: Expected: 04/18/2025 , Expires: 07/18/2025 Start: 04-09-2025 End: 04-09-2025 Patient encounter procedure 04/09/2025 9:20 AM EDT Office Visit OB/Gynecology [address] [place] [address] Ash Chowdhury MD [address] [place] [address] surgery 04/20 @[facility] OB/Gynecology Comment on above: surgery 04/20 @[facility] Start: 04-09-2025 End: 04-09-2025 ambulatory 04/09/2025 8:30 AM EDT Results Only [place] [facility] [address] [place] [address] [place] [facility] Start: 04-05-2025 End: 07-05-2025 Basic metabolic 2000 panel - Serum or Plasma BASIC METABOLIC PANEL Lab Routine Hypokalemia Expected: 04/05/2025, Expires: 07/05/2025 [facility] Work Phone: Comment on above: Expected: 04/05/2025 , Expires: 07/05/2025 Start: 04-03-2025 Annual PCP Team Research And Development Director lee Disease Visit Annual PCP Team Chronic Disease Visit [facility] Start: 03-30-2025 End: 06-29-2025 Basic metabolic 2000 panel - Serum or Plasma [facility] Work Phone: Comment on above: Expected: 03/30/2025 , Expires: 06/29/2025 Start: 03-30-2025 End: 03-30-2025 Patient encounter procedure 03/30/2025 7:00 AM EDT Office Visit Internal Medicine [place] [address] [place] [address] Fior Alvarez APRN.LEAD ENGINEER [address] [place] [address] PreOp Clearance for Surgery 04/20/2025 [facility]--hysteroscopy D/C Internal Medicine [place] Comment on above: PreOp Clearance for Surgery 04/20/2025 [facility]--hysteroscopy D/C Start: 03-28-2025 End: 03-28-2025 Patient encounter procedure 03/28/2025 4:00 PM EDT Office Visit Neurology [address] [place] [address] Luz Meeks PA-C [address] [place] [address] Possible MRI Neurology Comment on above: Possible MRI Start: 03-22-2025 End: 03-22-2025 ambulatory 03/22/2025 11:30 AM EDT [facility] OB/Gynecology [address] [place] [address] Ash Chowdhury MD [address] [place] [address] discuss hysteroscopy D+C OB/Gynecology Comment on above: discuss hysteroscopy D+C Start: 03-12-2025 End: 03-12-2025 Patient encounter procedure 03/12/2025 8:40 AM EDT Office Visit Internal Medicine [place] [address] [place] [address] Ana Bolaños MD [address] [place] [address] 4 month f/u Internal Medicine [place] Comment on above: 4 month f/u Start: 03-03-2025 Annual PCP Team Research And Development Director lee Disease Visit Annual PCP Team Chronic Disease Visit [facility] Start: 03-02-2025 End: 03-02-2025 ambulatory 03/02/2025 8:30 AM EDT Results Only [facility] [facility] [address] [place] [address] [facility] Start: 02-27-2025 End: 05-29-2025 Lipid 1996 panel - Serum or Plasma LIPID PANEL, FASTING Lab Routine Hyperlipidemia, unspecified hyperlipidemia type Expected: 02/27/2025, Expires: 05/29/2025 [facility] Comment on above: Expected: 02/27/2025 , Expires: 05/29/2025 Start: 02-27-2025 End: 05-29-2025 Microalbumin/Creatinine [Mass Ratio] in Urine ALBUMIN/CREATININE RATIO, URINE Lab Routine Type 2 diabetes mellitus (HCC) Expected: 02/27/2025, Expires: 05/29/2025 [facility] Work Phone: Comment on above: Expected: 02/27/2025 , Expires: 05/29/2025 Start: 02-27-2025 End: 05-29-2025 Thyrotropin [Units/volume] in Serum or Plasma THYROID STIMULATING HORMONE Lab Routine Acquired hypothyroidism Expected: 02/27/2025, Expires: 05/29/2025 [facility] Comment on above: Expected: 02/27/2025 , Expires: 05/29/2025 Start: 02-09-2025 End: 02-09-2025 ambulatory Neurology Comment on above: Paresthesia of both feet [R20.2] R RISHABH r Jordan KEATING Start: 02-08-2025 End: 02-08-2025 Patient encounter procedure 02/08/2025 7:45 AM EDT Office Visit OB/Gynecology [address] [place], [place] [id number] Richie Newman APRN.LEAD ENGINEER [address] [place] [address] fibroid cyst found on CT / Requesting VV OB/Gynecology Comment on above: fibroid cyst found o n CT / Requesting VV Start: 02-06-2025 End: 02-06-2025 Patient encounter procedure 02/06/2025 10:00 AM EDT Appointment Radiology [address] [place] [address] Dx: Uterine cyst [N85.8]; Abnormal CT scan [R93.89] Radiology Comment on above: Dx: Uterine cyst [N8 5.8]; Abnormal CT scan [R93.89] Start: 02-03-2025 Annual PCP Team Research And Development Director lee Disease Visit Annual PCP Team Chronic Disease Visit [facility] Start: 02-01-2025 End: 02-01-2025 Patient encounter procedure 02/01/2025 8:20 AM EDT Office Visit Internal Medicine [place] [address] [place] [address] Fior Alvarez APRN.LEAD ENGINEER [address] [place] [address] 1 wk follow up Internal Medicine [place] Comment on above: 1 wk follow up Start: 01-26-2025 Subsequent hospital visit by physician 01/26/2025 8:00 AM EDT Hospital Encounter [facility] [address] [place] [address] Right lower quadrant abdominal pain [R10.31] [facility] Comment on above: Right lower quadrant abdominal pain [R10.31] Start: 01-26-2025 End: 01-26-2025 Patient encounter procedure 01/26/2025 7:00 AM EDT Appointment [facility] [address] [place] [address] [facility] Comment on above: CCN APPROVED Start: 01-22-2025 End: 04-23-2025 Cobalamin (Vitamin B12) [Mass/volume] in Serum or Plasma [facility] Work Phone: Comment on above: Expected: 01/22/2025 , Expires: 04/23/2025 Start: 01-22-2025 End: 04-23-2025 Folate [Mass/volume] in Serum or Plasma [facility] Comment on above: Expected: 01/22/2025 , Expires: 04/23/2025 Start: 01-22-2025 End: 04-23-2025 Hemoglobin A1c in Blood [facility] Comment on above: Expected: 01/22/2025 , Expires: 04/23/2025 Start: 01-22-2025 End: 04-23-2025 PROT ELECT SERUM WITH MICA AND INTERP [facility] Comment on above: Expected: 01/22/2025 , Expires: 04/23/2025 Start: 01-22-2025 End: 04-23-2025 Pyridoxine [Mass/volume] in Serum or Plasma [facility] Comment on above: Expected: 01/22/2025 , Expires: 04/23/2025 Start: 01-22-2025 End: 04-23-2025 VITAMIN B1 (THIAMINE), WHOLE BLOOD [facility] Comment on above: Expected: 01/22/2025 , Expires: 04/23/2025 Start: 01-17-2025 End: 01-17-2025 Patient encounter procedure Neurology Comment on above: follow up 6 months Neuropathy f/u 6 mon ths- EARL 07/18/24 increase gabapentin 400mg TID Start: 01-06-2025 Annual PCP Team Research And Development Director lee Disease Visit Annual PCP Team Chronic Disease Visit [facility] Start: 01-06-2025 BP Controlled (<130/80) BP Controlle d (<130/80) [facility] Start: 11-25-2024 Covid-19 Vaccine (8 - Pfizer risk ) Covid-19 Vaccine (8 - Pfizer risk ) [facility] Start: 11-20-2024 End: 11-20-2024 Patient encounter procedure 11/20/2024 8:40 AM EDT Office Visit Internal Medicine [place] [address] [place] [address] Ana Bolaños MD [address] [place] [address] 3 month follow up Internal Medicine [place] Comment on above: 3 month follow up Start: 11-14-2024 DIABETES SCREEN DIABETES SCREEN [facility] Start: 11-10-2024 End: 02-09-2025 Microalbumin/Creatinine [Mass Ratio] in Urine [facility] Work Phone: Comment on above: Expected: 11/10/2024 , Expires: 02/09/2025 Start: 11-10-2024 End: 11-10-2024 Patient encounter procedure 11/10/2024 8:00 AM EST Office Visit Internal Medicine [place] [address] [place] [address] Ana Bolaños MD [address] [facility] [place] [id number] 3 month follow up Internal Medicine [place] Comment on above: 3 month follow up Start: 10-28-2024 Hemoglobin A1c measurement HbA1C [facility] Start: 10-20-2024 End: 10-20-2024 Patient encounter procedure 10/20/2024 7:10 AM EST Appointment Mammogram [address] [place] [address] Encounter for screening mammogram for breast cancer [Z12.31] Mammogram Comment on above: Encounter for screen ing mammogram for breast cancer [Z12.31] Start: 10-08-2024 Screening for malign ant neoplasm of breast Mammogram Screening [facility] Start: 09-29-2024 Annual PCP Team Research And Development Director lee Disease Visit Annual PCP Team Chronic Disease Visit [facility] Start: 09-05-2024 End: 09-05-2024 Patient encounter procedure 09/05/2024 7:00 AM EST Office Visit OB/Gynecology [address] [place] [address] [place] Vista[place]ina castro, FORENSIC SPECIALIST.LEAD ENGINEER [address] [place] [address] ANNUAL OB/Gynecology Comment on above: ANNUAL Start: 08-31-2024 End: 08-31-2024 Patient encounter procedure 08/31/2024 7:00 AM EST Office Visit OB/Gynecology [address] [place] [address] Katarina Guillory, FORENSIC SPECIALIST.LEAD ENGINEER [address] [place] [address] ANNUAL OB/Gynecology Comment on above: ANNUAL Start: 08-19-2024 Annual PCP Team Research And Development Director lee Disease Visit Annual PCP Team Chronic Disease Visit [facility] Start: 08-19-2024 Diabetic foot examination Diabetic F oot Exam [facility] Start: 08-11-2024 End: 11-10-2024 Basic metabolic 2000 panel - Serum or Plasma [facility] Work Phone: Comment on above: Expected: 08/11/2024 , Expires: 11/10/2024 Start: 08-11-2024 End: 08-11-2024 Patient encounter procedure 08/11/2024 9:00 AM EST Office Visit Internal Medicine [place] [address] [place] [address] Ana Bolaños MD [address] [place] [address] 3 month follow up Internal Medicine [place] Comment on above: 3 month follow up Start: 08-02-2024 Annual PCP Team Research And Development Director lee Disease Visit Annual PCP Team Chronic Disease Visit [facility] Start: 07-23-2024 Covid-19 Vaccine () Covid-19 Vaccine () [facility] Start: 07-18-2024 End: 07-18-2024 Patient encounter procedure 07/18/2024 4:15 PM EST Office Visit Neurology [address] [facility] [place] [address] Luz Meeks PA-C [address] [place] [address] 3 month follow up Neurology Comment on above: 3 month follow up Start: 07-05-2024 End: 07-05-2024 Patient encounter procedure 07/05/2024 4:00 PM EDT Office Visit Neurology [address] [place] [address] Luz Meeks PA-C [address] [facility] [place] [address] 3 month follow up Neurology Comment on above: 3 month follow up Start: 06-15-2024 HPV TESTING HPV TESTING [facility] Start: 06-15-2024 PAP TESTING PAP TESTING [facility] Start: 06-15-2024 Screening for malign ant neoplasm of cervix [facility] Start: 05-14-2024 Covid-19 Vaccine () Covid-19 Vaccine () [facility] Start: 05-14-2024 Covid-19 Vaccine (7 - 2024-25 season) Covid-19 Vaccine ( season) [facility] Start: 05-14-2024 Influenza vaccination Influenza Vacc ine (#1) [facility] Start: 05-08-2024 End: 05-08-2024 Patient encounter procedure 05/08/2024 7:20 AM EDT Office Visit Internal Medicine [place] [address] [place] [address] Fior Alvarez APRN.LEAD ENGINEER [address] [place] [address] 2 month follow up Internal Medicine [place] Comment on above: 2 month follow up Start: 05-05-2024 End: 05-05-2024 Patient encounter procedure 05/05/2024 7:20 AM EDT Office Visit Internal Medicine [place] [address] [place] [address] Fior Alvarez APRN.LEAD ENGINEER [address] [place] [address] 2 month follow up Internal Medicine [place] Comment on above: 2 month follow up Start: 03-28-2024 End: 03-28-2024 Patient encounter procedure 03/28/2024 7:00 AM EDT Office Visit Neurology [address] [place] [address] Luz Meeks PA-C [address] [facility] [place] [address] Neuropathy of feet Neurology Comment on above: Neuropathy of feet Start: 03-08-2024 Annual PCP Team Research And Development Director lee Disease Visit Annual PCP Team Chronic Disease Visit [facility] Start: 03-03-2024 End: 09-02-2024 25-hydroxyvitamin D3 [Mass/volume] in Serum or Plasma Vitamin D Deficiency Screening (Vit D 25) Lab Routine REMIGIO on CPAP Primary hypertension Deficiency of multiple nutrient elements Hyperlipidemia, unspecified hyperlipidemia type Class 2 severe obesity due to excess calories with serious comorbidity and body mass index (BMI) of 36.0 to 36.9 in adult Expected: 03/03/2024 (Approximate), Expires: 09/02/2024 [facility] Comment on above: Expected: 03/03/2024 (Approximate), Expires: 09/02/2024 Start: 03-03-2024 End: 09-02-2024 CBC panel - Blood by Automated count CBC Lab Routine REMIGIO on CPAP Primary hypertension Deficiency of multiple nutrient elements Hyperlipidemia, unspecified hyperlipidemia type Class 2 severe obesity due to excess calories with serious comorbidity and body mass index (BMI) of 36.0 to 36.9 in adult Expected: 03/03/2024 (Approximate), Expires: 09/02/2024 [facility] Comment on above: Expected: 03/03/2024 (Approximate), Expires: [...] in adult Expected: 03/03/2024 (Approximate), Expires: 09/02/2024 [facility] Comment on above: Expected: 03/03/2024 (Approximate), Expires: [...] in adult Expected: 03/03/2024 (Approximate), Expires: 09/02/2024 [facility] Comment on above: Expected: 03/03/2024 (Approximate), Expires: 09/02/2024 Start: 03-03-2024 End: 09-02-2024 Ferritin [Mass/volume] in Serum or Plasma Ferritin Lab Routine REMIGIO on CPAP Primary hypertension Deficiency of multiple nutrient elements Hyperlipidemia, unspecified hyperlipidemia type Class 2 severe obesity due to excess calories with serious comorbidity and body mass index (BMI) of 36.0 to 36.9 in adult Expected: 03/03/2024 (Approximate), Expires: 09/02/2024 [facility] Comment on above: Expected: 03/03/2024 (Approximate), Expires: 09/02/2024 Start: 03-03-2024 End: 09-02-2024 Folate [Mass/volume] in Serum or Plasma Folate Lab Routine REMIGIO on CPAP Primary hypertension Deficiency of multiple nutrient elements Hyperlipidemia, unspecified hyperlipidemia type Class 2 severe obesity due to excess calories with serious comorbidity and body mass index (BMI) of 36.0 to 36.9 in adult Expected: 03/03/2024 (Approximate), Expires: 09/02/2024 [facility] Comment on above: Expected: 03/03/2024 (Approximate), Expires: [...] in adult Expected: 03/03/2024 (Approximate), Expires: 09/02/2024 [facility] Comment on above: Expected: 03/03/2024 (Approximate), Expires: [...] in adult Expected: 03/03/2024 (Approximate), Expires: 09/02/2024 [facility] Comment on above: Expected: 03/03/2024 (Approximate), Expires: 09/02/2024 Start: 03-03-2024 End: 09-02-2024 Magnesium [Mass/volume] in Serum or Plasma Magnesium Lab Routine REMIGIO on CPAP Primary hypertension Deficiency of multiple nutrient elements Hyperlipidemia, unspecified hyperlipidemia type Class 2 severe obesity due to excess calories with serious comorbidity and body mass index (BMI) of 36.0 to 36.9 in adult Expected: 03/03/2024 (Approximate), Expires: 09/02/2024 [facility] Comment on above: Expected: 03/03/2024 (Approximate), Expires: 09/02/2024 Start: 03-03-2024 End: 09-02-2024 Vitamin B1, whole blood Vitamin B1, whole blood Lab Routine REMIGIO on CPAP Primary hypertension Deficiency of multiple nutrient elements Hyperlipidemia, unspecified hyperlipidemia type Class 2 severe obesity due to excess calories with serious comorbidity and body mass index (BMI) of 36.0 to 36.9 in adult Expected: 03/03/2024 (Approximate), Expires: 09/02/2024 [facility] Comment on above: Expected: 03/03/2024 (Approximate), Expires: 09/02/2024 Start: 03-03-2024 End: 09-02-2024 Zinc Zinc Lab Routine REMIGIO on CPAP Primary hypertension Deficiency of multiple nutrient elements Hyperlipidemia, unspecified hyperlipidemia type Class 2 severe obesity due to excess calories with serious comorbidity and body mass index (BMI) of 36.0 to 36.9 in adult Expected: 03/03/2024 (Approximate), Expires: 09/02/2024 [facility] Work Phone: Comment on above: Expected: 03/03/2024 (Approximate), Expires: 09/02/2024 Start: 03-03-2024 End: 03-03-2024 Patient encounter procedure [facility] [place] Comment on above: 1 month follow up Start: 02-04-2024 End: 02-04-2024 Patient encounter procedure 02/04/2024 7:00 AM EDT Office Visit Internal Medicine [place] [address] [place] [address] Jacquie Clarke, FORENSIC SPECIALIST.LEAD ENGINEER [address] [place] [address] 4 week follow up Internal Medicine [place] Comment on above: 4 week follow up Start: 12-21-2023 End: 03-21-2024 Thyrotropin [Units/volume] in Serum or Plasma TSH BLD Lab Routine Acquired hypothyroidism Expected: 12/21/2023, Expires: 03/21/2024 [facility] Work Phone: Comment on above: Expected: 12/21/2023 , Expires: 03/21/2024 Start: 12-05-2023 ANNUAL PCP TEAM SENIOR FUNCTIONAL ANALYST LEE DISEASE VISIT ANNUAL PCP TEAM CHRONIC DISEASE VISIT [facility] Start: 12-05-2023 BP CONTROLLED (<130/80) BP CONTROLLE D (<130/80) [facility] Start: 12-05-2023 Diabetes mellitus screening Diabetes Screening [facility] Start: 12-04-2023 Covid-19 Vaccine () Covid-19 Vaccine () [facility] Start: 10-06-2023 End: 04-05-2024 25-hydroxyvitamin D3 [Mass/volume] in Serum or Plasma Vitamin D Deficiency Screening (Vit D 25) Lab Routine REMIGIO on CPAP Primary hypertension Deficiency of multiple nutrient elements Hyperlipidemia, unspecified hyperlipidemia type Class 1 obesity due to excess calories with serious comorbidity and body mass index (BMI) of 33.0 to 33.9 in adult Expected: 10/06/2023 (Approximate), Expires: 04/05/2024 [facility] Comment on above: Expected: 10/06/2023 (Approximate), Expires: 04/05/2024 Start: 10-06-2023 End: 04-05-2024 CBC panel - Blood by Automated count CBC Lab Routine REMIGIO on CPAP Primary hypertension Deficiency of multiple nutrient elements Hyperlipidemia, unspecified hyperlipidemia type Class 1 obesity due to excess calories with serious comorbidity and body mass index (BMI) of 33.0 to 33.9 in adult Expected: 10/06/2023 (Approximate), Expires: 04/05/2024 [facility] Comment on above: Expected: 10/06/2023 (Approximate), Expires: [...] in adult Expected: 10/06/2023 (Approximate), Expires: 04/05/2024 [facility] Comment on above: Expected: 10/06/2023 (Approximate), Expires: [...] in adult Expected: 10/06/2023 (Approximate), Expires: 04/05/2024 [facility] Comment on above: Expected: 10/06/2023 (Approximate), Expires: 04/05/2024 Start: 10-06-2023 End: 04-05-2024 Ferritin [Mass/volume] in Serum or Plasma Ferritin Lab Routine REMIGIO on CPAP Primary hypertension Deficiency of multiple nutrient elements Hyperlipidemia, unspecified hyperlipidemia type Class 1 obesity due to excess calories with serious comorbidity and body mass index (BMI) of 33.0 to 33.9 in adult Expected: 10/06/2023 (Approximate), Expires: 04/05/2024 [facility] Comment on above: Expected: 10/06/2023 (Approximate), Expires: 04/05/2024 Start: 10-06-2023 End: 04-05-2024 Folate [Mass/volume] in Serum or Plasma Folate Lab Routine REMIGIO on CPAP Primary hypertension Deficiency of multiple nutrient elements Hyperlipidemia, unspecified hyperlipidemia type Class 1 obesity due to excess calories with serious comorbidity and body mass index (BMI) of 33.0 to 33.9 in adult Expected: 10/06/2023 (Approximate), Expires: 04/05/2024 [facility] Comment on above: Expected: 10/06/2023 (Approximate), Expires: [...] in adult Expected: 10/06/2023 (Approximate), Expires: 04/05/2024 [facility] Comment on above: Expected: 10/06/2023 (Approximate), Expires: 04/05/2024 Start: 10-06-2023 End: 04-05-2024 Lipid 1996 panel - Serum or Plasma Lipid panel Lab Routine REMIGIO on CPAP Primary hypertension Deficiency of multiple nutrient elements Hyperlipidemia, unspecified hyperlipidemia type Class 1 obesity due to excess calories with serious comorbidity and body mass index (BMI) of 33.0 to 33.9 in adult Expected: 10/06/2023 (Approximate), Expires: 04/05/2024 [facility] Comment on above: Expected: 10/06/2023 (Approximate), Expires: 04/05/2024 Start: 10-06-2023 End: 04-05-2024 Magnesium [Mass/volume] in Serum or Plasma Magnesium Lab Routine REMIGIO on CPAP Primary hypertension Deficiency of multiple nutrient elements Hyperlipidemia, unspecified hyperlipidemia type Class 1 obesity due to excess calories with serious comorbidity and body mass index (BMI) of 33.0 to 33.9 in adult Expected: 10/06/2023 (Approximate), Expires: 04/05/2024 [facility] Comment on above: Expected: 10/06/2023 (Approximate), Expires: 04/05/2024 Start: 10-06-2023 End: 04-05-2024 Vitamin B1, whole blood Vitamin B1, whole blood Lab Routine REMIGIO on CPAP Primary hypertension Deficiency of multiple nutrient elements Hyperlipidemia, unspecified hyperlipidemia type Class 1 obesity due to excess calories with serious comorbidity and body mass index (BMI) of 33.0 to 33.9 in adult Expected: 10/06/2023 (Approximate), Expires: 04/05/2024 [facility] Comment on above: Expected: 10/06/2023 (Approximate), Expires: 04/05/2024 Start: 10-06-2023 End: 04-05-2024 Zinc Zinc Lab Routine REMIGIO on CPAP Primary hypertension Deficiency of multiple nutrient elements Hyperlipidemia, unspecified hyperlipidemia type Class 1 obesity due to excess calories with serious comorbidity and body mass index (BMI) of 33.0 to 33.9 in adult Expected: 10/06/2023 (Approximate), Expires: 04/05/2024 [facility] Work Phone: Comment on above: Expected: 10/06/2023 (Approximate), Expires: 04/05/2024 Start: 09-30-2023 Screening for malign ant neoplasm of breast Mammogram [facility] Start: 09-13-2023 Behavioral Health Screening Behavioral Health Screening [facility] Start: 09-13-2023 Depression Assessment Depression Ass essment [facility] Start: 09-02-2023 End: 09-02-2023 Patient encounter procedure 09/02/2023 9:45 AM EST Office Visit Weight Management [place] [address] [facility] [address] [place] [phone] Gavin Moctezuma MD [address] [facility] [address] [place] [address] [facility] Start: 08-28-2023 ANNUAL PCP TEAM SENIOR FUNCTIONAL ANALYST LEE DISEASE VISIT ANNUAL PCP TEAM CHRONIC DISEASE VISIT [facility] Start: 08-28-2023 BP CONTROLLED (<130/80) BP CONTROLLE D (<130/80) [facility] Start: 08-28-2023 HEPATITIS B (1 of 3 - 3-dose series) HEPATITIS B (1 of 3 - 3-dose series) [facility] Comment on above: Postponed from 12/05 (Declined at this time) Start: 08-28-2023 Hepatitis B Vaccine (1 of 3 - 3-dose series) Hepatitis B Vaccine (1 of 3 - 3-dose series) [facility] Comment on above: Postponed from 12/05 (Declined at this time) Start: 08-28-2023 PNEUMOCOCCAL (3 - PCV) PNEUMOCOCCAL (3 - PCV) [facility] Comment on above: Postponed from 07/12 (Declined at this time) Start: 08-28-2023 Pneumococcal vaccination Pneum ococcal Vaccine (3 - PCV) [facility] Comment on above: Postponed from 07/12 (Declined at this time) Start: 08-17-2023 Thyroid stimulating hormone measurement TSH Level [facility] Start: 08-13-2023 Diabetes mellitus screening Diabetes Screening [facility] Start: 08-03-2023 End: 11-02-2023 Thyrotropin [Units/volume] in Serum or Plasma TSH BLD Lab Routine Acquired hypothyroidism Expected: 08/03/2023, Expires: 11/02/2023 [facility] Work Phone: Comment on above: Expected: 08/03/2023 [...] D level Expected: 07/06/2023 (Approximate), Expires: 04/05/2024 [facility] Comment on above: Expected: 07/06/2023 (Approximate), Expires: 04/05/2024 Start: 05-14-2023 Covid-19 Vaccine () Covid-19 Vaccine () [facility] Start: 05-14-2023 Influenza vaccination Influenza Vacc ine (#1) [facility] Start: 04-02-2023 End: 04-02-2023 Patient encounter procedure 04/02/2023 Office Visit Bariatrics Garret Burt PA [address] [place] [address] [facility] [place] Start: 03-09-2023 ANNUAL PCP TEAM SENIOR FUNCTIONAL ANALYST LEE DISEASE VISIT ANNUAL PCP TEAM CHRONIC DISEASE VISIT [facility] Start: 03-04-2023 End: 12-03-2023 25-hydroxyvitamin D3 [Mass/volume] in Serum or Plasma Vitamin D 25 hydroxy Lab Routine REMIGIO on CPAP Primary hypertension Deficiency of multiple nutrient elements Class 2 severe obesity due to excess calories with serious comorbidity and body mass index (BMI) of 35.0 to 35.9 in adult (HCC) Expected: 03/04/2023 (Approximate), Expires: 12/03/2023 [facility] Comment on above: Expected: 03/04/2023 (Approximate), Expires: 12/03/2023 Start: 03-04-2023 End: 12-03-2023 CBC panel - Blood by Automated count CBC Lab Routine REMIGIO on CPAP Primary hypertension Deficiency of multiple nutrient elements Class 2 severe obesity due to excess calories with serious comorbidity and body mass index (BMI) of 35.0 to 35.9 in adult (HCC) Expected: 03/04/2023 (Approximate), Expires: 12/03/2023 [facility] Comment on above: Expected: 03/04/2023 (Approximate), Expires: 12/03/2023 Start: 03-04-2023 End: 12-03-2023 Cobalamin (Vitamin B12) [Mass/volume] in Serum or Plasma Vitamin B12 Lab Routine REMIGIO on CPAP Primary hypertension Deficiency of multiple nutrient elements Class 2 severe obesity due to excess calories with serious comorbidity and body mass index (BMI) of 35.0 to 35.9 in adult (HCC) Expected: 03/04/2023 (Approximate), Expires: 12/03/2023 [facility] Comment on above: Expected: 03/04/2023 (Approximate), Expires: 12/03/2023 Start: 03-04-2023 End: 12-03-2023 Comprehensive metabolic 1998 panel - Serum or Plasma Comprehensive metabolic panel Lab Routine REMIGIO on CPAP Primary hypertension Deficiency of multiple nutrient elements Class 2 severe obesity due to excess calories with serious comorbidity and body mass index (BMI) of 35.0 to 35.9 in adult ([facility]) Expected: 03/04/2023 (Approximate), Expires: 12/03/2023 [facility] Comment on above: Expected: 03/04/2023 (Approximate), Expires: 12/03/2023 Start: 03-04-2023 End: 12-03-2023 Ferritin [Mass/volume] in Serum or Plasma Ferritin Lab Routine REMIGIO on CPAP Primary hypertension Deficiency of multiple nutrient elements Class 2 severe obesity due to excess calories with serious comorbidity and body mass index (BMI) of 35.0 to 35.9 in adult ([facility]) Expected: 03/04/2023 (Approximate), Expires: 12/03/2023 [facility] Comment on above: Expected: 03/04/2023 (Approximate), Expires: 12/03/2023 Start: 03-04-2023 End: 12-03-2023 Folate [Mass/volume] in Serum or Plasma Folate Lab Routine REMIGIO on CPAP Primary hypertension Deficiency of multiple nutrient elements Class 2 severe obesity due to excess calories with serious comorbidity and body mass index (BMI) of 35.0 to 35.9 in adult (HCC) Expected: 03/04/2023 (Approximate), Expires: 12/03/2023 [facility] Comment on above: Expected: 03/04/2023 (Approximate), Expires: 12/03/2023 Start: 03-04-2023 End: 12-03-2023 Iron and Iron binding capacity panel - Serum or Plasma Iron Lab Routine REMIGIO on CPAP Primary hypertension Deficiency of multiple nutrient elements Class 2 severe obesity due to excess calories with serious comorbidity and body mass index (BMI) of 35.0 to 35.9 in adult (HCC) Expected: 03/04/2023 (Approximate), Expires: 12/03/2023 [facility] Comment on above: Expected: 03/04/2023 (Approximate), Expires: 12/03/2023 Start: 03-04-2023 End: 12-03-2023 Lipid 1996 panel - Serum or Plasma Lipid panel Lab Routine REMIGIO on CPAP Primary hypertension Deficiency of multiple nutrient elements Class 2 severe obesity due to excess calories with serious comorbidity and body mass index (BMI) of 35.0 to 35.9 in adult ([facility]) Expected: 03/04/2023 (Approximate), Expires: 12/03/2023 [facility] Comment on above: Expected: 03/04/2023 (Approximate), Expires: 12/03/2023 Start: 03-04-2023 End: 12-03-2023 Magnesium [Mass/volume] in Serum or Plasma Magnesium Lab Routine REMIGIO on CPAP Primary hypertension Deficiency of multiple nutrient elements Class 2 severe obesity due to excess calories with serious comorbidity and body mass index (BMI) of 35.0 to 35.9 in adult ([facility]) Expected: 03/04/2023 (Approximate), Expires: 12/03/2023 [facility] Comment on above: Expected: 03/04/2023 (Approximate), Expires: 12/03/2023 Start: 03-04-2023 End: 12-03-2023 Vitamin B1, whole blood Vitamin B1, whole blood Lab Routine REMIGIO on CPAP Primary hypertension Deficiency of multiple nutrient elements Class 2 severe obesity due to excess calories with serious comorbidity and body mass index (BMI) of 35.0 to 35.9 in adult (HCC) Expected: 03/04/2023 (Approximate), Expires: 12/03/2023 [facility] Comment on above: Expected: 03/04/2023 (Approximate), Expires: 12/03/2023 Start: 03-04-2023 End: 12-03-2023 Zinc Zinc Lab Routine REMIGIO on CPAP Primary hypertension Deficiency of multiple nutrient elements Class 2 severe obesity due to excess calories with serious comorbidity and body mass index (BMI) of 35.0 to 35.9 in adult (HCC) Expected: 03/04/2023 (Approximate), Expires: 12/03/2023 [facility] Work Phone: Comment on above: Expected: 03/04/2023 (Approximate), Expires: 12/03/2023 Start: 03-03-2023 End: 03-03-2023 Patient encounter procedure 03/03/2023 Office Visit Bariatrics Garret Burt PA [address] [place] [address] [facility] [place] Start: 2022 End: 10-08-2023 CBC panel - Blood by Automated count CBC Lab Routine Primary hypertension Hyperlipidemia, unspecified hyperlipidemia type Hypothyroidism, unspecified type REMIGIO (obstructive sleep apnea) Class 2 obesity due to excess calories with body mass index (BMI) of 38.0 to 38.9 in adult, unspecified whether serious comorbidity present Deficiency of multiple nutrient elements Expected: 2022 (Approximate), Expires: [facility]/08/2023 [facility] Comment on above: Expected: 2022 (Approximate), Expires: [...] nutrient elements Expected: 2022 (Approximate), Expires: 10/08/2023 [employer] Comment on above: Expected: 2022 (Approximate), Expires: [...] nutrient elements Expected: 2022 (Approximate), Expires: 10/08/2023 [facility] Comment on above: Expected: 2022 (Approximate), Expires: [...] nutrient elements Expected: 2022 (Approximate), Expires: 10/08/2023 [facility] Comment on above: Expected: 2022 (Approximate), Expires: [...] nutrient elements Expected: 2022 (Approximate), Expires: 10/08/2023 [facility] Comment on above: Expected: 2022 (Approximate), Expires: [...] nutrient elements Expected: 2022 (Approximate), Expires: 10/08/2023 [facility] Comment on above: Expected: 2022 (Approximate), Expires: [...] nutrient elements Expected: 2022 (Approximate), Expires: 10/08/2023 [facility] Comment on above: Expected: 2022 (Approximate), Expires: 10/08/2023 Start: 2022 End: 10-08-2023 Zinc Zinc Lab Routine Primary hypertension Hyperlipidemia, unspecified hyperlipidemia type Hypothyroidism, unspecified type REMIGIO (obstructive sleep apnea) Class 2 obesity due to excess calories with body mass index (BMI) of 38.0 to 38.9 in adult, unspecified whether serious comorbidity present Deficiency of multiple nutrient elements Expected: 2022 (Approximate), Expires: 10/08/2023 [facility] Work Phone: Comment on above: Expected: 2022 (Approximate), Expires: 10/08/2023 Start: 12-02-2022 End: 12-02-2022 Patient encounter procedure 12/02/2022 Office Visit Bariatrics Garret Burt PA [address] [place] [address] [facility] [place] Start: 11-15-2022 Adult depression screening assessment DEPRESSION SCREENING [facility] Start: 11-14-2022 Creatinine measurement Creatinine mo nitoring [facility] Start: 11-14-2022 Lipid panel [facility] Start: 11-14-2022 Potassium monitoring Potassium monit oring [facility] Start: 11-03-2022 ANNUAL PCP TEAM SENIOR FUNCTIONAL ANALYST LEE DISEASE VISIT ANNUAL PCP TEAM CHRONIC DISEASE VISIT [facility] Start: 10-08-2022 End: 10-01-2023 Potassium [Moles/volume] in Serum or Plasma Potassium Lab Routine Hypokalemia Expected: 10/08/2022 (Approximate), Expires: 10/01/2023 [facility] Work Phone: Comment on above: Expected: 10/08/2022 (Approximate), Expires: 10/01/2023 Start: 10-08-2022 End: 10-08-2022 Patient encounter procedure 10/08/2022 Office Visit Bariatrics Gavin Moctezuma MD [address] [place], [place] [id number] [facility] [place] Start: 09-24-2022 End: 09-10-2023 CBC panel - Blood by Automated count CBC Lab Routine Deficiency of multiple nutrient elements REMIGIO (obstructive sleep apnea) Hyperlipidemia, unspecified hyperlipidemia type Primary hypertension Morbid obesity with BMI of 40.0-44.9, adult (HCC) Expected: 09/24/2022 (Approximate), Expires: 09/10/2023 [facility] Comment on above: Expected: 09/24/2022 (Approximate), Expires: 09/10/2023 Start: 09-24-2022 End: 09-10-2023 Cobalamin (Vitamin B12) [Mass/volume] in Serum or Plasma Vitamin B12 Lab Routine Deficiency of multiple nutrient elements REMIGIO (obstructive sleep apnea) Hyperlipidemia, unspecified hyperlipidemia type Primary hypertension Morbid obesity with BMI of 40.0-44.9, adult (HCC) Expected: 09/24/2022 (Approximate), Expires: 09/10/2023 [facility] Comment on above: Expected: 09/24/2022 (Approximate), Expires: 09/10/2023 Start: 09-24-2022 End: 09-10-2023 Comprehensive metabolic 1998 panel - Serum or Plasma Comprehensive metabolic panel Lab Routine Deficiency of multiple nutrient elements REMIGIO (obstructive sleep apnea) Hyperlipidemia, unspecified hyperlipidemia type Primary hypertension Morbid obesity with BMI of 40.0-44.9, adult (HCC) Expected: 09/24/2022 (Approximate), Expires: 09/10/2023 [facility] Comment on above: Expected: 09/24/2022 (Approximate), Expires: 09/10/2023 Start: 09-24-2022 End: 09-10-2023 Ferritin [Mass/volume] in Serum or Plasma Ferritin Lab Routine Deficiency of multiple nutrient elements REMIGIO (obstructive sleep apnea) Hyperlipidemia, unspecified hyperlipidemia type Primary hypertension Morbid obesity with BMI of 40.0-44.9, adult (HCC) Expected: 09/24/2022 (Approximate), Expires: 09/10/2023 [facility] Comment on above: Expected: 09/24/2022 (Approximate), Expires: 09/10/2023 Start: 09-24-2022 End: 09-10-2023 Folate [Mass/volume] in Serum or Plasma Folate Lab Routine Deficiency of multiple nutrient elements REMIGIO (obstructive sleep apnea) Hyperlipidemia, unspecified hyperlipidemia type Primary hypertension Morbid obesity with BMI of 40.0-44.9, adult (HCC) Expected: 09/24/2022 (Approximate), Expires: 09/10/2023 [facility] Comment on above: Expected: 09/24/2022 (Approximate), Expires: 09/10/2023 Start: 09-24-2022 End: 09-10-2023 Iron and Iron binding capacity panel - Serum or Plasma Iron Lab Routine Deficiency of multiple nutrient elements REMIGIO (obstructive sleep apnea) Hyperlipidemia, unspecified hyperlipidemia type Primary hypertension Morbid obesity with BMI of 40.0-44.9, adult (HCC) Expected: 09/24/2022 (Approximate), Expires: 09/10/2023 [facility] Comment on above: Expected: 09/24/2022 (Approximate), Expires: 09/10/2023 Start: 09-24-2022 End: 09-10-2023 Magnesium [Mass/volume] in Serum or Plasma Magnesium Lab Routine Deficiency of multiple nutrient elements REMIGIO (obstructive sleep apnea) Hyperlipidemia, unspecified hyperlipidemia type Primary hypertension Morbid obesity with BMI of 40.0-44.9, adult (HCC) Expected: 09/24/2022 (Approximate), Expires: 09/10/2023 [facility] Comment on above: Expected: 09/24/2022 (Approximate), Expires: 09/10/2023 Start: 09-24-2022 End: 09-10-2023 Zinc Zinc Lab Routine Deficiency of multiple nutrient elements REMIGIO (obstructive sleep apnea) Hyperlipidemia, unspecified hyperlipidemia type Primary hypertension Morbid obesity with BMI of 40.0-44.9, adult (HCC) Expected: 09/24/2022 (Approximate), Expires: 09/10/2023 [facility] Work Phone: Comment on above: Expected: 09/24/2022 (Approximate), Expires: 09/10/2023 Start: 09-13-2022 DEPRESSION ASSESSMENT DEPRESSION ASS ESSMENT [facility] Start: 08-11-2022 End: 10-11-2022 Basic metabolic 2000 panel - Serum or Plasma BASIC METABOLIC PNL Lab Routine Medication management Expected: 08/11/2022, Expires: 10/11/2022 [facility] Work Phone: Comment on above: Expected: 08/11/2022 , Expires: 10/11/2022 Start: 08-11-2022 End: 10-11-2022 Lipid 1996 panel - Serum or Plasma LIPID PANEL BASIC Lab Routine Medication management Expected: 08/11/2022, Expires: 10/11/2022 [facility] Work Phone: Comment on above: Expected: 08/11/2022 , Expires: 10/11/2022 Start: 08-11-2022 End: 10-11-2022 SCHEDULE LAB TESTING SCHEDULE LAB TESTING Lab Routine Expected: 08/11/2022, Expires: 10/11/2022 [facility] Work Phone: Comment on above: Expected: 08/11/2022 , Expires: 10/11/2022 Start: 08-11-2022 End: 10-11-2022 Thyrotropin [Units/volume] in Serum or Plasma TSH BLD Lab Routine Acquired hypothyroidism Expected: 08/11/2022, Expires: 10/11/2022 [facility] Work Phone: Comment on above: Expected: 08/11/2022 , Expires: 10/11/2022 Start: 06-03-2022 COVID-19 VACCINE (5 - Booster for Pfizer series) COVID-19 VACCINE (5 - Booster for Pfizer series) [facility] Start: 05-14-2022 Influenza vaccination S [facility] Start: 04-08-2022 End: 04-08-2022 Telemedicine consultation with patient 04/08/2022 Telemedicine Pulmonology Jeannine Ross, FORENSIC SPECIALIST - LEAD ENGINEER [address] [place] [address] [facility] Start: 03-28-2022 COVID-19 VACCINE (5 - Booster for Pfizer series) COVID-19 VACCINE (5 - Booster for Pfizer series) [facility] Start: 03-20-2022 End: 03-20-2022 Patient encounter procedure 03/20/2022 Office Visit Weight Management Shalonda Bar MD [address] [place] [address] [facility] Start: 02-24-2022 End: 04-26-2022 CBC panel - Blood by Automated count CBC Lab Routine Medication management Expected: 02/24/2022, Expires: 04/26/2022 [facility] Work Phone: Comment on above: Expected: 02/24/2022 , Expires: 04/26/2022 Start: 02-24-2022 End: 04-26-2022 SCHEDULE LAB TESTING SCHEDULE LAB TESTING Lab Routine Expected: 02/24/2022, Expires: 04/26/2022 [facility] Work Phone: Comment on above: Expected: 02/24/2022 , Expires: 04/26/2022 Start: 02-20-2022 End: 02-20-2022 Patient encounter procedure 02/20/2022 Office Visit Weight Management Shalonda Bar MD [address] [place] [address] [facility] Start: 01-28-2022 End: 01-28-2022 Patient encounter procedure 01/28/2022 Office Visit Cardiology Eduardo Rodriguez MD [address] [place] [address] [facility] Start: 01-23-2022 End: 01-23-2022 Patient encounter procedure 01/23/2022 Office Visit Weight Management Shalonda Bar MD [address] [place] [address] [facility] Start: 01-07-2022 End: 01-07-2022 Telemedicine consultation with patient 01/07/2022 Telemedicine Pulmonology Jeannine Ross, FORENSIC SPECIALIST - LEAD ENGINEER [address] [place] [address] [facility] Start: 12-09-2021 End: 12-09-2021 Patient encounter procedure 12/09/2021 Office Visit Pulmonology Jeannine Ross, FORENSIC SPECIALIST - LEAD ENGINEER [address] [place] [address] [facility] Start: 11-18-2021 End: 11-18-2021 Patient encounter procedure 11/18/2021 Appointment General Surgery Gavin Moctezuma MD [address] [place] [address] [facility] Start: 10-17-2021 End: 10-17-2021 Patient encounter procedure 10/17/2021 Office Visit Weight Management Shalonda Bar MD [address] [place] [address] [facility] Start: 10-15-2021 End: 10-15-2021 ambulatory 10/15/2021 Virtual Visit Bariatrics Lorena Alexis, RD, LD [address] [place] [address] [facility] Start: 09-14-2021 COVID-19 VACCINE (4 - Booster for Pfizer series) COVID-19 VACCINE (4 - Booster for Pfizer series) [facility] Start: 09-13-2021 DEPRESSION ASSESSMENT DEPRESSION ASS ESSMENT [facility] Start: 08-02-2021 Mammography [facility] Start: 06-15-2020 Screening for malign ant neoplasm of cervix Cervical Cancer Screening [facility] Start: 10-23-2019 End: 10-23-2019 Patient encounter procedure 10/23/2019 Office Visit Orthopedic Surgery Joi Srivastava PA [address] [place] [address] [phone] [facility] [place] Start: 12-05-2017 Breast cancer screen Breast cancer s creen [facility] Work Phone: Start: 12-05-2017 Colon cancer screen colonoscopy Colon cancer screen [facility] Work Phone: Start: 12-05-2017 Screening for malign ant neoplasm of breast Breast cancer screen [facility] Start: 12-05-2017 Shingles Vaccine (1 of 2) Lopez gles Vaccine (1 of 2) [facility] Work Phone: Start: 05-23-2017 Hepatitis B screening Urine Albumin:Creatinine Ratio [facility] Start: 11-30-2015 Glaucoma screening Dilated Retinal E xam [facility] Start: 07-12-2015 PNEUMOCOCCAL (3 - PCV) PNEUMOCOCCAL (3 - PCV) [facility] Start: 07-12-2015 Pneumococcal vaccination Pneum ococcal Vaccine (3 of 3 - PCV) [facility] Start: 06-02-2015 FECAL OCCULT BLOOD FECAL OCCULT BLOO D [facility] Start: 06-02-2015 Screening for malign ant neoplasm of colon Fecal Occult Blood [facility] Start: 12-05-2012 COLOGUARD (FIT-DNA) COLOGUARD (FIT-D NA) [facility] Start: 12-05-[address] COLONOGRAPHY [facility] Start: 12-05-2012 Screening for malign ant neoplasm of colon [facility] Start: 12-05-2012 SIGMOIDOSCOPY SIGMOIDOSCOPY [facility] Start: 09-30-2009 MMR Vaccines (1 of 1 - Standard series) MMR Vaccines (1 of 1 - Standard series) [facility] Start: 2007 Diabetes screen Diabetes screen [facility] Work Phone: Start: 2007 Screening for malign ant neoplasm of breast Mammogram [facility] Start: 12-05-2002 Diabetes screen Diabetes screen [facility] Start: 12-05-1997 Screening for malign ant neoplasm of cervix [facility] Start: 12-05-1988 Cervical cancer screen Cervical canc er screen [facility] Work Phone: Start: 12-05-1988 Screening for malign ant neoplasm of cervix Pap smear [facility] Start: 12-05-1986 Hepatitis A Vaccines (1 of 2 - Risk 2-dose series) Hepatitis A Vaccines (1 of 2 - Risk 2-dose series) [facility] Start: 12-05-1986 Hepatitis B Vaccine (1 of 3 - 19+ 3-dose series) Hepatitis B Vaccine (1 of 3 - 19+ 3-dose series) [facility] Start: 12-05-1985 Anxiety Screening Anxiety Screening [facility] Start: 12-05-1985 BP Controlled (<130/80) BP Controlle d (<130/80) [facility] Start: 12-05-1985 Depression Screening Depression Scre ening [facility] Start: 12-05-1985 Hepatitis C screening [facility] Start: 12-05-1985 HIV SCREENING HIV SCREENING [facility] Start: 12-05-1982 HIV screen HIV screen [facility] Work Phone: Start: 12-05-1982 HIV screening HIV screen [facility] Start: 1979 Depression Screen Depression Screen [facility] Start: 1979 Depression Screening Depression Scre [facility] Start: 12-05-1977 Lipid panel Lipid screen [facility] Start: 12-05-1977 Lipid screen Lipid screen [facility] Work Phone: Start: 12-05-1968 Hepatitis A Vaccines (1 of 2 - Risk 2-dose series) Hepatitis A Vaccines (1 of 2 - Risk 2-dose series) [facility] Start: 1967 Creatinine measurement Creatinine mo nitoring [facility] Start: 1967 Creatinine monitoring Creatinine mon itoring [facility] Work Phone: Start: 1967 HEPATITIS B (1 of 3 - 3-dose series) HEPATITIS B (1 of 3 - 3-dose series) [facility] Start: 1967 Hepatitis B Vaccine (1 of 3 - 3-dose series) Hepatitis B Vaccine (1 of 3 - 3-dose series) [facility] Start: 1967 Hepatitis B Vaccines (1 of 3 - 3-dose series) Hepatitis B Vaccines (1 of 3 - 3-dose series) [facility] Start: 1967 Hepatitis C screening Hepatitis C sc reen [facility] Start: 1967 HIV screening HIV Screening [facility] Start: 1967 Potassium monitoring Potassium monit oring [facility] Start: 1967 Screening for malign ant neoplasm of colon [facility] Albumin/Globulin [Ma ss Ratio] in Serum or Plasma by Electrophoresis [facility] Work Phone: Aldosterone [Mass/vo lume] in Serum or Plasma [facility] Work Phone: Bacteria identified in Urine by Culture BACTERIAL CULTURE, URINE Microbiology Routine Lower abdominal pain 03/07/2025 8:16 AM EDT [facility] Work Phone: Bacteria identified in Urine by Culture BACTERIAL CULTURE, URINE Microbiology Routine Dysuria 04/10/2025 10:27 AM EDT [facility] Work Phone: BACTERIAL VAGINOSIS NAAT BACTERI AL VAGINOSIS NAAT Lab Routine Vaginal discharge 02/08/2025 4:42 PM EDT [facility] Blood glucose - POCT Blood gluco se - POCT Point of Care Testing STAT As Needed until discontinued starting 11/18/2021 [employer] Work Phone: Comment on above: As Needed until disc ontinued starting 11/18/2021 End: 10-13-2019 Blood glucose - POCT Blood glucose - POCT Point of Care Testing STAT One Time for 1 Occurrences starting 10/13/2019 until 10/13/2019 [employer] Work Phone: Comment on above: One Time for 1 Occur rences starting 10/13/2019 until 10/13/2019 JOSEE/TRICHOMONAS NAAT JOSEE /TRICHOMONAS NAAT Lab Routine Vaginal discharge 02/08/2025 4:42 PM EDT [facility] Complement C3 [Mass/volume] in Serum or Plasma [facility] Work Phone: Complement C4 [Mass/volume] in Serum or Plasma [facility] Work Phone: End: 10-13-2019 Creatinine [Mass/volume] in Serum or Plasma Creatinine, serum Lab STAT One Time for 1 Occurrences starting 10/13/2019 until 10/13/2019 [facility] Work Phone: Comment on above: One Time for 1 Occur rences starting 10/13/2019 until 10/13/2019 End: 02-24-2026 CT Abdomen and Pelvis W contrast IV CT ABD/PEL W IVCON Radiology STAT Right lower quadrant abdominal pain 1 Occurrences starting 01/25/2025 until 02/24/2026 [facility] Work Phone: Comment on above: 1 Occurrences starti ng 01/25/2025 until 02/24/2026 End: 06-08-2025 DBT Breast - bilateral screening ADALBERTO SCREENING W [facility]UCK Radiology Routine Encounter for screening mammogram for breast cancer 1 Occurrences starting 05/09/2024 until 06/08/2025 [facility] Work Phone: Comment on above: 1 Occurrences starti ng 05/09/2024 until 06/08/2025 End: 10-05-2025 DBT Breast - bilateral screening ADALBERTO SCREENING [facility] Radiology Routine Encounter for gynecological examination (general) (routine) without abnormal findings Encounter for screening mammogram for breast cancer 1 Occurrences starting 09/05/2024 until 10/05/2025 [facility] Work Phone: Comment on above: 1 Occurrences starti ng 09/05/2024 until 10/05/2025 DBT Breast - bilater al screening ADALBERTO SCREENING [facility] Radiology Routine Encounter for screening mammogram for breast cancer 10/20/2024 7:25 AM EST [facility] Work Phone: EKG 12 Lead EKG 12 Lead ECG Routine 11/14/2021 2:54 PM EST [facility] Work Phone: Electrophoresis: albumin [facility] Work Phone: Electrophoresis: [id number] [facility] Work Phone: Electrophoresis: [id number] [facility] Work Phone: Electrophoresis: jaja ma globulin [facility] Work Phone: End: 01-22-2026 EMG(NEURO/NI) EMG(NEURO/NI) EMG Routine Paresthesia of both feet 1 Occurrences starting 01/22/2025 until 01/22/2026 [facility] Comment on above: 1 Occurrences starti ng 01/22/2025 until 01/22/2026 Endometrial bx w/wo endocervix bx w/o dilat spx ENDOMETRIAL BIOPSY Procedures Routine Thickened endometrium Ordered: 02/08/2025 [facility] Work Phone: Comment on above: Ordered: 02/08/2025 Globulin measurement [facility] Work Phone: Incentive spirometry Incentive s pirometry Respiratory Care Routine Q1H PRN until discontinued starting 10/13/2019 [facility] Work Phone: Comment on above: Q1H PRN until discon tinued starting 10/13/2019 Initiate Oxygen Ther apy Protocol Initiate Oxygen Therapy Protocol Respiratory Care Routine Daily until discontinued starting 10/13/2019 [employer] Work Phone: Comment on above: Daily until disconti nued starting 10/13/2019 End: 11-18-2021 INITIATE PACU OXYGEN THERAPY PROTOCOL Initiate PACU Oxygen Therapy Protocol Respiratory Care Routine Continuous until discontinued starting 11/18/2021 [employer] Work Phone: Comment on above: Continuous until dis continued starting 11/18/2021 End: 11-18-2021 Intermittent pulse oximetry Pulse Oximetry Spot Check Respiratory Care Routine One Time for 1 Occurrences starting 11/18/2021 until 11/18/2021 [employer] Work Phone: Comment on above: One Time for 1 Occur rences starting 11/18/2021 until 11/18/2021 End: 09-12-2023 ADALBERTO SCREENING ADALBERTO SCREENING Radiology Routine Encounter for screening mammogram for breast cancer 1 Occurrences starting 08/13/2022 until 09/12/2023 [facility] Work Phone: Comment on above: 1 Occurrences starti ng 08/13/2022 until 09/12/2023 End: 08-19-2024 ADALBERTO SCREENING ADALBERTO SCREENING Radiology Routine Encounter for screening mammogram for breast cancer 1 Occurrences starting 07/21/2023 until 08/19/2024 [facility] Work Phone: Comment on above: 1 Occurrences starti ng 07/21/2023 until 08/19/2024 End: 06-08-2025 MG Breast Screening ADALBERTO SCREENING Radiology Routine Encounter for screening mammogram for breast cancer 1 Occurrences starting 05/09/2024 until 06/08/2025 [facility] Comment on above: 1 Occurrences starti ng 05/09/2024 until 06/08/2025 Nasal Cannula Oxygen Nasal Cannu la Oxygen Respiratory Care Routine As Needed until discontinued starting 11/18/2021 [employer] Work Phone: Comment on above: As Needed until disc ontinued starting 11/18/2021 Nasal Cannula Oxygen Nasal Cannu la Oxygen Respiratory Care Routine As Needed until discontinued starting 11/18/2021 [employer] Work Phone: Comment on above: As Needed [...] until disc ontinued starting 11/18/2021 Oxygen therapy [[facility] Data Set] Initiate Oxygen Therapy Protocol Respiratory Care Routine As Needed until discontinued starting 11/18/2021 [facility] Work Phone: Comment on above: As Needed until disc ontinued starting 11/18/2021 PAP TEST PAP TEST Lab Gianfranco dominguez Screening for HPV (human papillomavirus) Screening for cervical cancer 02/08/2025 3:18 PM EDT [facility] Phase I & II - meter [...] electrophore sis panel - Serum or Plasma [facility] Work Phone: End: 10-13-2019 Protime-INR Protime-INR Lab [...] until 10/13/2019 Renin [Enzymatic activity/volume] in Plasma [facility] Work Phone: Serum protein electrophoresis [facility] Work Phone: Spirometry panel Incentive iain metry Respiratory Care Routine Q1H PRN until discontinued starting 11/18/2021 [facility] Work Phone: Comment on above: Q1H PRN until discon tinued starting 11/18/2021 Thyrotropin [Units/volume] in Serum or Plasma TSH BLD Lab Routine Acquired hypothyroidism 12/24/2023 7:08 AM EDT [facility] Work Phone: Total globulins measurement [facility] Work Phone: End: 02-25-2026 US Pelvis limited US FEMALE PELVIS TRANSABD LTD Radiology Routine Uterine cyst Abnormal CT scan 1 Occurrences starting 01/26/2025 until 02/25/2026 [facility] Work Phone: Comment on above: 1 Occurrences starti ng 01/26/2025 until 02/25/2026 End: 02-25-2026 US Pelvis transvaginal US FEMALE PELVIS TRANSVAG Radiology Routine Uterine cyst Abnormal CT scan 1 Occurrences starting 01/26/2025 until 02/25/2026 [facility] Comment on above: 1 Occurrences starti ng 01/26/2025 until 02/25/2026 End: 11-14-2021 Vitamin B1, Whole Blood [facility] Work Phone: Comment on above: 1 Occurrences starti ng 11/14/2021 until 11/14/2021 End: 11-14-2021 Vitamin D 25 Hydroxy [facility] Work Phone: Comment on above: 1 Occurrences starti ng 11/14/2021 until 11/14/2021 End: 02-21-2026 XR Cervical spine AP and Lateral and oblique XR CERV OTHER 4V AP/LAT/OBL Radiology Routine Paresthesia of both feet 1 Occurrences starting 01/22/2025 until 02/21/2026 [facility] Comment on above: 1 Occurrences starti ng 01/22/2025 until 02/21/2026 XR Cervical spine AP and Lateral and oblique XR CERV OTHER 4V AP/LAT/OBL Radiology Routine Paresthesia of both feet 01/22/2025 4:23 PM EDT [facility] End: 02-21-2026 XR Lumbar spine 3 Views XR LUMBAR GENERAL 3V AP/LAT/L5-S1 Radiology Routine Paresthesia of both feet 1 Occurrences starting 01/22/2025 until 02/21/2026 [facility] Comment on above: 1 Occurrences starti ng 01/22/2025 until 02/21/2026 XR Lumbar spine 3 Views XR LUMBA R GENERAL 3V AP/LAT/L5-S1 Radiology Routine Paresthesia of both feet 01/22/2025 4:23 PM EDT [facility] End: 11-14-2021 Zinc [facility] Work Phone: Comment on above: 1 Occurrences starti ng 11/14/2021 until 11/14/2021 [facility] Immunizations Immunization Date Immunization Notes Care Provider [facility] 05-11-2025 pneumococcal conjuga te (PCV20) vaccine, 20 valent (PREVNAR 20) Fior Alvarez FORENSIC SPECIALISTBarryLEAD ENGINEER Work Phone: [facility] 05-11-2025 pneumococcal Conjuga te, unspecified formulation Fior Alvarez FORENSIC SPECIALIST.LEAD ENGINEER Work Phone: [facility] 05-28-2024 influenza virus vacc ine, unspecified formulation Ash Chowdhury MD Work Phone: [facility] 05-09-2024 pneumococcal polysaccharide vaccine, 23 valent Ana Bolaños MD Work Phone: [facility] 08-26-2023 influenza virus vacc ine, unspecified formulation Luz Meeks PA-C Work Phone: [facility] 05-26-2022 influenza virus vacc ine, unspecified formulation Garret POLLOCK Work Phone: [facility] 01-31-2022 Covid-19, Pfizer Gra y Top, Do Not Dilute, (Age 12 Y+), Im, L Marilou Clifton RD Work Phone: [facility] 06-14-2021 Pfizer SARS-CoV-[address] Work Phone: [facility] 05-17-2021 influenza, injectabl e, quadrivalent, contains preservative Alexander Quinteros Jr., MD Work Phone: [facility] Work Phone: 12-18-2020 COVID-19 vaccine, ag e 12+ yr (PFIZER-BIONTECH - [facility]) Alexander Quinteros Jr., MD Work Phone: [facility] Work Phone: 11-27-2020 COVID-19 vaccine, ag e 12+ yr (PFIZER-BIONTECH - [facility]) Alexander Quinteros Jr., MD Work Phone: [facility] Work Phone: 08-02-2020 zoster vaccine recombinant Alexander Quinteros Jr., MD Work Phone: [facility] Work Phone: 06-01-2020 zoster vaccine recombinant Alexander Quinteros Jr., MD Work Phone: [facility] Work Phone: 05-14-2019 influenza, seasonal, injectable Alexander Quinteros Jr., MD Work Phone: [facility] 06-11-2018 influenza, injectabl e, quadrivalent, contains preservative Alexander Quinteros Jr., MD Work Phone: [facility] 06-16-2017 diphtheria, tetanus toxoids and acellular pertussis vaccine, 5 pertussis antigens Alexander Quinteros Jr., MD Work Phone: [facility] Work Phone: 06-18-2016 influenza, injectabl e, quadrivalent, contains preservative Alexander Quinteros Jr., MD Work Phone: [facility] Work Phone: 06-20-2015 influenza, seasonal, injectable Alexander Quinteros Jr., MD Work Phone: [facility] 06-13-2015 influenza, seasonal, injectable Alexander Quinteros Jr., MD Work Phone: [facility] Work Phone: 07-12-2014 pneumococcal polysaccharide vaccine, 23 valent Alexander Quinteros Jr., MD Work Phone: [facility] 07-14-2012 influenza virus vacc ine, unspecified formulation Alexander Quinteros Jr., MD Work Phone: [facility] 07-14-2010 influenza virus vacc ine, unspecified formulation Alexander Quinteros Jr., MD Work Phone: [facility] Work Phone: 07-20-2008 influenza virus vacc ine, unspecified formulation Alexander Quinteros Jr., MD Work Phone: [facility] Work Phone: 01-18-2007 tetanus and diphther ia toxoids, adsorbed, preservative free, for adult use (2 Lf of tetanus toxoid and 2 Lf of diphtheria toxoid) Alexander Quinteros Jr., MD Work Phone: [facility] 07-14-2006 influenza virus vacc ine, unspecified formulation Alexander Quinteros Jr., MD Work Phone: [facility] Work Phone: 12-12-2002 pneumococcal polysaccharide vaccine, 23 valent Alexander Quinteros Jr., MD Work Phone: [facility] Work Phone: Payers Date Payer Category Payer Self-pay [id number] 2020 Private Health Insurance [id number] 2020 Private Health Insurance [employer] POS [id number] 2020-Present [phone] [address] [place] [address] POS [id number] 2020 Private Health Insurance [id number] 2019 Unknown BCBS BCBS OUT OF STATE xxxxxxxxxxxx 2019-Present [address] [place] [address] xxxxxxxxxxxx [id number] 2016 Unknown [id number] 2016 Unknown ANTHEM [id number] 2015 Private Health Insurance [employer]ET[employer] [id number] Unknown [facility] PACKAGE [facility] [id number] Unknown [id number] .[id number] Unknown [id number] .462 Unknown [id number] .462 Unknown [id number] .462 Unknown [id number] .462 Unknown [id number] 2.840.1.487870.3.579.2 .462 Unknown [id number] 2.840.1.163314.3.579.2 .462 Unknown [id number] 2.16.840.1.724943.3.579.2 .462 Unknown [id number] 2.16.840.1.274686.3.579.2 .462 Unknown [id number] 2.16.840.1.311557.3.579.2 .462 Unknown [id number] 2.16.840.1.899334.3.579.2 .462 Unknown [id number] 2.16.840.1.757804.3.579.2 .462 Unknown [id number] 2.16.840.1.472859.3.579.2 .462 Unknown [id number] 2.16.840.1.022602.3.579.2 .462 Unknown [id number] 2.16.840.1.039120.3.579.2 .462 Unknown [id number] 2.16.840.1.619034.3.579.2 .462 Unknown [id number] 2.16.840.1.309325.3.579.2 .462 Unknown [id number] 2.16.840.1.209916.3.579.2 .462 Unknown [id number] 2.16.840.1.402462.3.579.2 .462 Unknown [id number] 2.16.840.1.619426.3.579.2 .462 Unknown [id number] 2.16.840.1.812037.3.579.2 .462 Unknown [id number] 2.16.840.1.000134.3.579.2 .462 Unknown [id number] 2.16.840.1.503755.3.579.2 .462 Unknown [id number] .462 Social History Date Type Detail Facility Start: 10-06-2019 End: 05-09-2024 Tobacco smoking status RIIS Ex-smoker [facility] Work Phone: Start: 10-06-2019 End: 05-09-2024 Tobacco use and exposure Smokeless tobacco non-user [employer] Work Phone: Start: 09-15-2021 End: 05-07-2025 Alcohol intake Current drinker of alcohol (finding) [employer] Work Phone: Start: 10-06-2019 History SDOH Alcohol Comment OCCASSIONAL [employer] Work Phone: Start: 10-06-2019 Tobacco Comment QUIT 16 YEARS AGO [facility] [email or web address] Work Phone: Start: 1965 Sex Assigned At Not on file S [facility] Work Phone: Start: 09-13-1981 End: 06-14-2003 History of tobacco use Cigarette Smoker [employer] Phone: Start: 10-06-2019 End: 03-08-2023 Cigarettes smoked current (pack per day) - Reported 0.5 [facility] Start: 11-14-2021 Tobacco Comment QUIT 19 YEARS AGO [facility] [employer] Work Phone: Start: 10-18-2021 End: 04-05-2023 Exposure to SARS-CoV-2 (event) Not sure [facility] Start: 06-15-2013 End: 06-15-2013 Tobacco smoking status NHIS Unknown if ever smoked [facility] Start: 1965 Sex Assigned At Female W [facility] Start: 09-13-1981 End: 06-14-2003 History of tobacco use Current smoker [facility] Start: 09-02-2021 End: 08-21-2022 History SDOH Alcohol Frequency 3 [facility] Start: 09-02-2021 End: 09-02-2022 History SDOH Alcohol Std Drinks 1 [facility] Start: 09-02-2021 End: 09-02-2022 History SDOH Alcohol Binge 2 [facility] Start: 03-10-2007 History SDOH Alcohol Comment Occaisionally [facility] Start: 09-02-2021 End: 08-21-2022 History SDOH Financial 5 [facility] Start: 08-19-2019 Education 17 [facility] Start: 08-21-2022 History SDOH Physica l Activity DPW 4 [facility] Start: 09-02-2022 History SDOH Alcohol Std Drinks 0 [facility] Start: 09-02-2022 End: 03-08-2023 Humiliation, Afraid, Rape, and Kick questionnaire [HARK] [facility] Within the last year , have you been afraid of your partner or ex-partner? No [facility] How often to you hav e a drink containing alcohol? Never [facility] Start: 08-14-2012 How many standard drinks containing alcohol do you have on a typical day? Patient does not drink [facility] Are you now , , , , never or living with a partner? [facility] How often to you hav e a drink containing alcohol? Monthly or less [facility] How many standard drinks containing alcohol do you have on a typical day? 1 or 2 [facility] Do you feel stress - tense, restless, nervous, or anxious, or unable to sleep at night because your mind is troubled all the time - these days [OSQ] Only a little [facility] (I/We) worried clare er (my/our) food would run out before (I/we) got money to buy more. Never true [facility] Start: 09-05-2024 Alcohol Comment social [facility] Start: 03-30-2025 Alcohol Comment social - 1 dri nk a month [facility] NEGATED: Highlighted rowStart: NINF History of tobacco use Passive smoker [facility] Medical Equipment Procedure Code Equipment Code Equipment Origin al Text Equipment Identifier Dates [place] [employer]able St[employer] Reinforcement [id number] Start: 09-02-2022 Functional Status Date Assessment Result Facility 11-03-2024 Total score [AUDIT-C] 1 11/03/19 8:20 AM EST User, [email or web address] [facility] 11-03-2024 Within the last year , have you been humiliated or emotionally abused in other ways by your partner or ex-partner? No 11/03/2024 8:20 AM EST User, Mychart No [facility] 11-03-2024 Within the last year , have you been afraid of your partner or ex-partner? No 11/03/2024 8:20 AM EST User, Mychart No [facility] 11-03-2024 Within the last year , have you been raped or forced to have any kind of sexual activity by your partner or ex-partner? No 11/03/2024 8:20 AM EST [email or web address] No [facility] 11-03-2024 Within the last year , have you been kicked, hit, slapped, or otherwise physically hurt by your partner or ex-partner? No 11/03/2024 8:20 AM EST User, [email or web address] No [facility] 11-03-2024 How often to you hav e a drink containing alcohol? Monthly or less 11/03/2024 8:20 AM EST User, [email or web address] Monthly or less [facility] 11-03-[address] inks containing alcohol do you have on a typical day? 1 or 2 11/03/2024 8:20 AM EST User, [email or web address] 1 or 2 [facility] 11-03-2024 How often do you hav e 6 or more drinks on 1 occasion? Never 11/03/2024 8:20 AM EST User, [email or web address] Never [facility] 01-18-2015 Are you deaf, or do you have serious difficulty hearing No 01/18/2015 8:02 AM Radha Anderson LPN No [facility] 01-18-2015 Are you blind, or do you have serious difficulty seeing, even when wearing glasses No 01/18/2015 8:02 AM Radha Anderson LPN No [facility] 01-18-2015 Do you have serious difficulty walking or climbing stairs No 01/18/2015 8:02 AM Radha Anderson LPN No [facility] 01-18-2015 Do you have difficul ty dressing or bathing No 01/18/2015 8:02 AM Radha Anderson LPN No [facility] 01-18-2015 Because of a physica l, mental, or emotional condition, do you have difficulty doing errands alone such as visiting a physician's office or shopping No 01/18/2015 8:02 AM Radha Anderson LPN No [facility] Mental Status Date Assessment Result Facility 01-18-2015 Because of a physica l, mental, or emotional condition, do you have serious difficulty concentrating, remembering, or making decisions No 01/18/2015 8:02 AM Radha Anderson LPN No [facility] Clinical Notes 07-22-2015 to 06-25-2025 Patient Fior Woods APRN.[facility] - 05/11/2025 7:54 AM Ash Nava MD - 05/07/2025 3:51 PM EDTPatient InstructionsFior Alvarez APRN.[facility] - 05/02/2025 3:40 PM EDTPatient Instructions Note Date & Type Note Facility 06-25-2025 Note HNO ID: [id number] Author: ANA BOLAÑOS MD Service: ? Author [...] is taking sulfasalazine. She last saw her screen printing inspector 3-4 months ago and has a follow-up appointment in July. Her screen printing inspector reports that her scleroderma is controlled, and [...] myelopathy (M51.26) Severe L5-S1 disc degeneration with lqrk-in-foqs changes; patient scheduled for minimally invasive discectomy and fusion. - Proceed with planned surgery. 3. Sjogren's syndrome, with unspecified organ involvement (HCC) (M35.00) Condition is stable and controlled per rheumatology; no pulmonary involvement. - Continue current management. - Follow-up with rheumatology in July. 4. Essential (more content not included)... [facility] 05-11-2025 Instructions Fior Alvarez APRN.CNP - 05/11/2025 [...] notice anything concerning. documented in this encounter [facility] 05-11-2025 Note HNO ID: [id number] Author: OLDER, FIOR, FORENSIC SPECIALIST.LEAD ENGINEER Service: ? Author Type: Nurse Practitioner Type: Progress Notes Filed: 05/11/2025 08:21 Note Text: CC: Patient presents with: Recheck: Follow up BP, low potassium HPI Santos Allan is a 59 year old female who presents today for follow up. Recording using [employer] software for draft documentation of the visit was discussed with the patient/authorized mill representative; all questions welcomed and answered. Patient/authorized mill representative agreed to proceed Hypertension: - Blood [...] Uterine Cancer Moth (more content not included)... [facility] 05-11-2025 History of Present illness Narrative CC: Patient presents with: Recheck: Follow up BP, low potassium HPI Santos Allan is a 59 year old female who presents today for follow up. Recording using [employer] software for draft documentation of the visit was discussed with the patient/authorized mill representative; all questions welcomed and answered. Patient/authorized mill representative agreed to proceed Hypertension: - Blood [...] Drug use: No documented in this encounter [facility] 05-07-2025 Note HNO ID: [id number] Author: ASH CHOWDHURY MD Service: ? Author Type: Physician Type: Progress Notes Filed: 05/07/2025 18:25 Note Text: DATE OF SERVICE: 05/07/2025 PROBLEM: Santos Allan presents for postop visit. SURGERY AND DATE: Hysteroscopy [facility] PATHOLOGY: benign SUBJECTIVE/INTERVAL HISTORY: Santos Allan is [...] weekly at this time Ash Chowdhury DO [facility] 05-07-2025 History of Present illness Narrative DATE [...] Ash Chowdhury DO documented in this encounter [facility] 05-02-2025 Instructions Fior Alvarez APRN.LEAD ENGINEER - 05/02/2025 3:49 PM EDT - Restart [...] a blood clot. documented in this encounter [facility] 05-02-2025 Note HNO ID: [id number] Author: FIOR ALVAREZ APRN.BRITANY Service: ? Author Type: Nurse Practitioner Type: Progress Notes Filed: 05/02/2025 16:09 Note Text: CC: Patient presents with: Recheck: Medication follow up HPI Santos Allan is a 59 year old female who presents today for BP follow up. Was switched to spironolactone from HCTZ due to hypokalemia. Recording using [employer] software for draft documentation of the visit was discussed with the patient/authorized mill representative; all questions welcomed and answered. Patient/authorized mill representative agreed to proceed Edema and HTN: [...] Cancer Mother Diabete (more content not included)... [facility] 05-02-2025 History of Present illness Narrative CC: Patient presents with: Recheck: Medication follow up HPI Santos Allan is a 59 year old female who presents today for BP follow up. Was switched to spironolactone from HCTZ due to hypokalemia. Recording using [employer] software for draft documentation of the visit was discussed with the patient/authorized mill representative; all questions welcomed and answered. Patient/authorized mill representative agreed to proceed Edema and HTN: [...] occur. Patient agreeable to treatment plan. Fior Avlarez APRN.CNP [1] Social History Tobacco Use Smoking [...] Drug use: No documented in this encounter [facility] 04-13-2025 Telephone encounter Note See my chart encounter Fior Alvarez APRN.CNP [facility] 04-13-2025 Miscellaneous Notes See my chart [...] Fior Alvarez APRN.CNP documented in this encounter [facility] 04-12-2025 Telephone encounter Note Patient notified, if hematuria returns she will call and schedule with Urology. [facility] 04-12-2025 Miscellaneous Notes Patient notified, if [...] Angelique Bradford PA-C documented in this encounter [facility] 04-12-2025 Telephone encounter Note Patient notified, feeling ok, swelling is still there but patient feels it may be caused by the gabapentin that helps with her neuropathy so willing to put up with the swelling. [facility] 04-12-2025 Telephone encounter Note ----- Message from Fior Alvarez APRN.LEAD ENGINEER sent at 04/12/2025 3:47 PM EDT ----- Potassium is in normal range. How is she feeling? How I her swelling? Thank you Fior Alvarez APRN.LEAD ENGINEER [facility] 04-12-2025 Telephone encounter Note Please let patient know that her urine culture did not show a clear infection, but mixed microbiota-possibly contamination with collection. I would recommend f/u with urology with hematuria and not a clear infection as discussed. Consult ordered. F/u sooner if symptoms are not improving/resolving. Angelique Bradford PA-C [facility] 04-10-2025 Note HNO ID: [id number] Author: ANGELIQUE BRADFORD PA-C Service: ? Author Type: Physician Metal Control Worker Type: Progress Notes Filed: 04/10/2025 12:38 Note Text: Recording using [employer] software for draft documentation of the visit was discussed with the patient/authorized mill representative; all questions welcomed and answered. Patient/authorized mill representative agreed to proceed 04/10/2025 Recurrent UTIs: [...] Uterine fibroids, thicken (more content not included)... [facility] 04-10-2025 History of Present illness Narrative Recording using [employer] software for draft documentation of the visit was discussed with the patient/authorized mill representative; all questions welcomed and answered. Patient/authorized mill representative agreed to proceed 04/10/2025 Recurrent UTIs: [...] May 07. - Advised patient to inform RADIO REPAIR TEACHER of recent antibiotic treatment. The patient indicates understanding of these issues and agrees with the plan. Reviewed red flags and when to seek care sooner. Angelique Bradford PA-C 04/10/2025 documented in this encounter [facility] 04-10-2025 Instructions Agnelique Bradford PA-C - 04/10/2025 10:27 AM EDT [...] at that time documented in this encounter [facility] 04-09-2025 History and physical note DATE [...] and stored in a permanent archive. MQ: [facility]_2021 COMPARISON: CT abdomen pelvis on 01/26/2025 [...] Medical Decision Making Level: 4 - Moderate [facility] 04-09-2025 History and physical note DATE [...] and stored in a permanent archive. MQ: [facility]_2021 COMPARISON: CT abdomen pelvis on 01/26/2025 [...] 4 - Moderate documented in this encounter [facility] 04-06-2025 Telephone encounter Note Patient notified, Denies any symptoms. [facility] 04-06-2025 Miscellaneous Notes Patient notified, Denies any symptoms. Potassium is very low. Any concerning symptoms? Palpitations? Chest pain? Weakness? Has she been taking the 10 meq of potassium twice a day? I have sent in a large 40 kassandra bid for 2 days dose, recheck in 3 days. Fior Alvarez APRN.CNP documented in this encounter [facility] 04-05-2025 Telephone encounter Note Potassium is very low. Any concerning symptoms? Palpitations? Chest pain? Weakness? Has she been taking the 10 meq of potassium twice a day? I have sent in a large 40 kassandra bid for 2 days dose, recheck in 3 days. Fior Alvarez APRN.CNP [facility] 04-02-2025 Telephone encounter Note Patient notified. Christofer Moore RN [facility] 04-02-2025 Miscellaneous Notes Patient notified. Christofer Moore RN Left message to call office. Keren Carreon RN No concerns Patient scheduled for hysteroscopy D&C on 04/20/25. Calling because she has MRI with contrast on 04/13/25 and asking if the contrast will affect anything with surgery/anesthesia. Christofer Moore RN documented in this encounter [facility] 04-02-2025 Telephone encounter Note Left message to call office. Keren Carreon RN [facility] 04-02-2025 Telephone encounter Note No concerns [facility] 03-30-2025 Note HNO ID: [id number] Author: FIOR ALVAREZ APRN.LEAD ENGINEER Service: ? Author Type: Nurse Practitioner Type: [...] carpal tunnel PAS (more content not included)... [facility] 03-30-2025 History of Present illness Narrative CC: [...] Fior Alvarez APRN.CNP documented in this encounter [facility] 03-28-2025 Instructions Luz Meeks PA-C - 03/28/2025 4:18 PM EDT Increase gabapentin to 500mg three times a day (400mg with a 100mg tablet) Follow up in 3-6 months documented in this encounter [facility] 03-28-2025 Note HNO ID: [id number] Author: LUZ MEEKS PA-C Service: ? Author Type: Physician Metal Control Worker Type: Progress Notes Filed: 03/28/2025 16:31 Note Text: I have [facility] Name: Santos Allan Age: [...] a follow-up with Luz as well at [facility]. I spent a total of 35 minutes on the date of the service which included preparing to see the patient, vgwf-nh-esss patient care, completing clinical documentation, obtaining and/or [...] episode (or current) (more content not included)... [facility] 03-28-2025 History of Present illness Narrative I have [facility] Name: Santos Allan Age: [...] Will follow-up in 3 to 6 months. [facility] website checked and validated. All prescriptions [...] a follow-up with Luz as well at [facility]. I spent a total of 35 minutes on the date of the service which included preparing to see the patient, dbzo-mt-ujvb patient care, completing clinical documentation, obtaining and/or [...] (Final result) This note was dictated using Tealium speech recognition software and may contain some [...] which included preparing to see the patient, vogi-zt-jdpd patient care, completing clinical documentation, obtaining and/or reviewing separately obtained history, performing a medically appropriate examination, counseling and educating the patient/family/caregiver, and ordering medications, tests, or procedures. Recording using ambient B2Brev software for draft documentation of the visit was discussed with the patient/authorized mill representative; all questions welcomed and answered. Patient/authorized mill representative agreed to proceed documented in this encounter [facility] 03-28-2025 Note HNO ID: [id number] Author: WENDY TEJADA LPN Service: ? Author Type: LICENSED NURSE Type: Progress Notes Filed: 03/28/2025 16:31 Note Text: [facility] 03-28-2025 Telephone encounter Note Patient scheduled for hysteroscopy D&C on 04/20/25. Calling because she has MRI with contrast on 04/13/25 and asking if the contrast will affect anything with surgery/anesthesia. Christofer Moore RN [facility] 03-22-2025 Note HNO ID: [id number] Author: ASH CHOWDHURY MD Service: ? Author Type: Physician Type: Progress Notes Filed: 03/22/2025 12:57 Note Text: VIRTUAL VISIT PROGRESS NOTE This is a virtual visit using SED Webt Zoom Video Visit. It required patient-provider interaction for the medical decision making as documented below. I have communicated my name and active licensure. The patient's identity and physical location were verified at the time of this visit. Either the patient or their legal mill representative has been informed of the risks and benefits of -- and alternatives to -- treatment through a remote evaluation and consents to proceed with the evaluation remotely. Santos Allan is a 59 year old female seen to discuss hysteroscopy [facility]. Patient states she was having pelvic pain [...] Bilevel 25/20 c (more content not included)... [facility] 03-22-2025 History of Present illness Narrative VIRTUAL VISIT PROGRESS NOTE This is a virtual visit using Tapactiveom Video Visit. It required patient-provider interaction for the medical decision making as documented below. I have communicated my name and active licensure. The patient's identity and physical location were verified at the time of this visit. Either the patient or their legal mill representative has been informed of the risks [...] which included preparing to see the patient, bmda-uf-[id number] patient care, completing clinical documentation, performing a medically appropriate examination, counseling and educating the patient/family/caregiver, and ordering medications, tests, or procedures Ash Chowdhury DO documented in this encounter [facility] 03-12-2025 Note HNO ID: [id number] Author: ANA BOLAÑOS MD Service: ? Author [...] Monitor BMP in (more content not included)... [facility] 03-12-2025 History of Present illness Narrative Reason [...] any unintended typographical errors. Recording using ambient B2Brev software for draft documentation of the visit was discussed with the patient/authorized mill representative; all questions welcomed and answered. Patient/authorized mill representative agreed to proceed Ana Bolaños MD documented in this encounter [facility] 03-12-2025 Instructions Ana Bolaños MD - [...] other concerning symptoms. documented in this encounter [facility] 03-07-2025 Instructions Jacquie Clarke APRN.BRITANY - 03/07/2025 8:27 AM EDT - Take Keflex (cephalexin) twice a day as prescribed; prescription has been sent to your [facility] pharmacy. - A urine culture was sent to the lab; results usually return in a couple of days (likely by Wednesday) to confirm the diagnosis and guide treatment. - Keep your scheduled follow-up appointment with Dr. Pozo on the ; if your symptoms worsen or do not improve before then, please contact our office. documented in this encounter [facility] 03-07-2025 Note HNO ID: [id number] Author: JACQUIE CLARKE APRN.BRITANY Service: ? Author Type: Nurse Practitioner Type: Progress Notes Filed: 03/07/2025 08:28 Note Text: CC: Patient presents with: Abdominal Pain: Lower abdomen x 2 days HPI Recording using Vanilla Forums software for draft documentation of the visit was discussed with the patient/authorized mill representative; all questions welcomed and answered. Patient/authorized mill representative agreed to proceed Santos Allan is [...] of Onset Diabetes (more content not included)... [facility] 03-07-2025 History of Present illness Narrative CC: Patient presents with: Abdominal Pain: Lower abdomen x 2 days HPI Recording using ambient B2Brev software for draft documentation of the visit was discussed with the patient/authorized mill representative; all questions welcomed and answered. Patient/authorized mill representative agreed to proceed Santos Allan is [...] Patient agreeable to treatment plan. Jacquie Clarke APRN.LEAD ENGINEER documented in this encounter [facility] 02-27-2025 Note Patient Outreach (IN [facility]) ---- SANTOS ALLAN ([id number]) 1965 F Date Time Provider Department 02/27/25 ANA BOLAÑOS During your visit today, we recorded the following information about you: Allergies As of Date: 02/27/2025 Noted Allergy Reaction HYDROCODONE-ACETAMINOPHEN 08/24/2019 9 - Itching IMITREX (SUMATRIPTAN) 07/25/2007 Comments: Face went numb PREDNISONE 09/05/2024 1 - Mental Status Change Date Reviewed: 02/08/2025 Reviewed by: Richie Newman APRN.LEAD ENGINEER - Fully Assessed Visit Diagnoses:Type 2 diabetes mellitus (HCC) [E11.9] Hyperlipidemia, unspecified hyperlipidemia type [E78.5] Acquired hypothyroidism [E03.9] Order(s):ALBUMIN/CREATININE RATIO, URINE [SQUACR] Order #: [id number] FUTURE LIPID PANEL, FASTING [SQLIPB] Order #: [id number] FUTURE THYROID STIMULATING HORMONE [SQTSH] Order #: [id number] FUTURE Prescriptions as of 03/02/2025 - eletriptan [...] mellitus (HCC) [E11.9] 01/26/2024 Encounter Status:Closed by [employer], PRODUSER on 03/02/25 [facility] 02-09-2025 Note HNO ID: [id number] Author: DENVER MATTA DO Service: ? Author [...] Care Visit completed when applicable. RD Reid, [facility] 02-09-2025 History of Present illness Narrative [facility] [...] RD Reid DO documented in this encounter [facility] 02-08-2025 Note HNO ID: [id number] Author: RICHIE NEWMAN APRN.LEAD ENGINEER Service: ? Author Type: Nurse Practitioner Type: [...] physician to discuss hysteroscopy D+C Richie Newman APRN.LEAD ENGINEER [facility] 02-08-2025 Procedure note Santos is a 59 [...] physician to discuss hysteroscopy D+C Richie Newman APRN.LEAD ENGINEER [facility] 02-08-2025 Procedure note Santos is a [...] physician to discuss hysteroscopy D+C Richie Newman APRN.LEAD ENGINEER documented in this encounter [facility] 02-08-2025 Note HNO ID: [id number] Author: RICHIE NEWMAN APRN.LEAD ENGINEER Service: ? Author Type: Nurse Practitioner Type: [...] Living0 SAB0 IAB0 Ectopic0 Multiple0 Live Births0 Creative Writing Teacher History LMP: 02/13/2019 (Approximate), Postmenopausal Age at Menarche[age] Age at First : Age at Menopause: Creative Writing Teacher History Comments: Sexual Activity: Not Currently; Male [...] 25 mg table (more content not included)... [facility] 02-08-2025 History of Present illness Narrative Santos [...] Living0 SAB0 IAB0 Ectopic0 Multiple0 Live Births0 Creative Writing Teacher History LMP: 02/13/2019 (Approximate), Postmenopausal Age at Menarche: [age] Age at First : Age at Menopause: Creative Writing Teacher History Comments: Sexual Activity: Not Currently; Male [...] Assessed 02/08/2025 REVIEW OF SYSTEMS Expanded ROS: RADIO REPAIR TEACHER: + pelvic pain Allergies and current medication updated:Yes SENSITIVE EXAM: The sensitive examination was discussed with the Patient or Patient's Authorized Stable Hand. As applicable, any other physician, advance practice provider, medical student, or other health professional student that will be observing or involved in the sensitive examination for educational or training purposes was discussed with the Patient or Authorized Stable Hand. The Patient or Authorized Stable Hand has agreed to proceed with the sensitive examination. (Sensitive examination includes inspection and/or palpation of the breasts, pelvis, prostate and anorectal regions). EXAM: Wt 181 lb (82.1kg) LMP 02/13/2019 GENERAL: pleasant, female in no apparent distress HEENT: Normocephalic, atraumatic, mucus membranes moist, and no lesions CHEST: Normal inspiratory effort PELVIC: external genitalia atrophic, normal Bartholin's glands, urethra, [place]'s glands, no vulvar lesions, no cervical lesions, [...] 4 - Moderate documented in this encounter [facility] 02-08-2025 Telephone encounter Note Patient My True [employer] message requesting the following refill Refill(s) Requested: [...] went numb Prednisone Mental Status Change (home) [phone] (work) [phone] (cell) Last Office Visit Date: 01/25/2025 Last Distance Health Visit: 04/03/2024 Future Appointment: 03/12/2025 The patients preferred pharmacy has been captured for this encounter? yes Request is for script(s) to be escript to pharmacy. Kristina Law LPN [facility] 02-08-2025 Miscellaneous Notes Patient Magic Wheelshart message requesting the following refill Refill(s) Requested: [...] went numb Prednisone Mental Status Change (home) [phone] (work) [phone] (cell) Last Office Visit Date: 01/25/2025 Last Distance Health Visit: 04/03/2024 Future Appointment: 03/12/2025 The patients preferred pharmacy has been captured for this encounter? yes Request is for script(s) to be escript to pharmacy. Kristina Law LPN documented in this encounter [facility] 02-06-2025 History of Present illness Narrative [...] PATIENT PRESENTS WITH AN IMPLANTABLE OR ATTACHED PRICE ECONOMIST: No RADIOLOGY DEPARTMENT: Ultrasound PERIPHERAL IV DATA: Not applicable SIGNED BY: Leola Siu RDMS February 06, 2025 10:28 AM documented in this encounter [facility] 02-06-2025 Note HNO ID: [id number] Author: LEOLA SIU RDMS Service: ? Author Type: Site Director Type: Progress Notes Filed: 02/06/2025 10:28 Note [...] PATIENT PRESENTS WITH AN IMPLANTABLE OR ATTACHED PRICE ECONOMIST: No RADIOLOGY DEPARTMENT: Ultrasound PERIPHERAL IV DATA: Not applicable SIGNED BY: Leola Siu RDMS February 06, 2025 10:28 AM [facility] 01-29-2025 Telephone encounter Note Images from the original note were not included. Prior authorization approved Payer: [employer] [facility] [phone] Note from payer: CaseId:[id number];Status:Approved;Review Type:Prior Auth;Coverage Start Date:01/24/2025;Coverage End Date:01/29/2026; Approval [...] to its destination. To be filled at: [facility] - [place], [place] [id number] - [address] [phone] Pt notified via my chart. [facility] 01-29-2025 Miscellaneous Notes Images from the original note were not included. Prior authorization approved Payer: [employer] [facility] [phone] Note from payer: CaseId:[id number];Status:Approved;Review Type:Prior Auth;Coverage Start Date:01/24/2025;Coverage End Date:01/29/2026; Approval [...] to its destination. To be filled at: [facility] - [place], [place] [id number] - [address] [phone] Pt notified via my chart. Fax PA rec'd from [facility]. This was completed and faxed back to the pharmacy on the form along with records as they were asking for. documented in this encounter [facility] 01-27-2025 Telephone encounter Note Phoned patient went over results, notes from Fior Alvarez RETAIL CLIENT SOLUTIONS ANALYST with understanding. Assisted with transfer to patient scheduler to get ultrasound appt set up. [facility] 01-27-2025 Miscellaneous Notes Phoned patient went over results, notes from Fior Alvarez RETAIL CLIENT SOLUTIONS ANALYST with understanding. Assisted with transfer to patient scheduler to get ultrasound appt set up. Fibroid cyst noted in the uterus that should further be evaluated by ultrasound. This has been ordered. Continue with antibiotic as the bladder wall has some thickening. Follow up if pain does not improve. Thank you Fior Alvarez APRN.CNP documented in this encounter [facility] 01-26-2025 Telephone encounter Note Fibroid cyst noted in the uterus that should further be evaluated by ultrasound. This has been ordered. Continue with antibiotic as the bladder wall has some thickening. Follow up if pain does not improve. Thank you Fior Alvarez APRN.LEAD ENGINEER [facility] 01-26-2025 History of Present illness Narrative [...] PATIENT PRESENTS WITH AN IMPLANTABLE OR ATTACHED PRICE ECONOMIST: No ALLERGIES: Reviewed and unchanged CONTRAST ALLERGY: [...] TIME: 8:10 AM documented in this encounter [facility] 01-26-2025 Note HNO ID: [id number] Author: DARIAN JOSHI CT Service: Radiology Author [...] PATIENT PRESENTS WITH AN IMPLANTABLE OR ATTACHED PRICE ECONOMIST: No ALLERGIES: Reviewed and unchanged CONTRAST ALLERGY: [...] DATE: January 26, 2025 TIME: 8:10 AM [facility] 01-25-2025 Note HNO ID: [id number] Author: FIOR ALVAREZ APRN.LEAD ENGINEER Service: ? Author Type: Nurse Practitioner Type: Progress Notes Filed: 01/25/2025 15:30 Note Text: CC: Patient presents with: Abdominal Pain: Abdominal pain HPI Santos Allan is a 59 year old female who presents today for abdominal pain. Recording using Vanilla Forums software for draft documentation of the visit was discussed with the patient/authorized mill representative; all questions welcomed and answered. Patient/authorized mill representative agreed to proceed Lower Abdominal Pain [...] week. pravastatin (P (more content not included)... [facility] 01-25-2025 History of Present illness Narrative CC: Patient presents with: Abdominal Pain: Abdominal pain HPI Santos Allan is a 59 year old female who presents today for abdominal pain. Recording using Vanilla Forums software for draft documentation of the visit was discussed with the patient/authorized mill representative; all questions welcomed and answered. Patient/authorized mill representative agreed to proceed Lower Abdominal Pain [...] Fior Alvarez APRN.CNP documented in this encounter [facility] 01-25-2025 Instructions Fior Alvarez APRN.CNP - [...] assess your progress documented in this encounter [facility] 01-24-2025 Telephone encounter Note Fax PA rec'd from [facility]. This was completed and faxed back to the pharmacy on the form along with records as they were asking for. [facility] 01-23-2025 Telephone encounter Note Rx new dose for Ana Mascorro MD [facility] 01-23-2025 Miscellaneous Notes Rx new dose for Ana Mascorro MD documented in this encounter [facility] 01-22-2025 History of Present illness Narrative [...] PATIENT PRESENTS WITH AN IMPLANTABLE OR ATTACHED PRICE ECONOMIST: No RADIOLOGY DEPARTMENT: General X-ray: Exam(s) Completed: Spine X-Ray(s): Cervical AP / LAT / OBL and Lumbar AP / LAT / L5-S1 PERIPHERAL IV DATA: Not applicable SIGNED BY: RT Amy(Jordan) January 22, 2025 4:07 PM documented in this encounter [facility] 01-22-2025 Note HNO ID: [id number] Author: JOSEPH PEREZ RT(R) Service: ? Author Type: Site Director Type: Progress Notes Filed: 01/22/2025 16:22 Note [...] PATIENT PRESENTS WITH AN IMPLANTABLE OR ATTACHED PRICE ECONOMIST: No RADIOLOGY DEPARTMENT: General X-ray: Exam(s) Completed: Spine X-Ray(s): Cervical AP / LAT / OBL and Lumbar AP / LAT / L5-S1 PERIPHERAL IV DATA: Not applicable SIGNED BY: RT Amy(R) January 22, 2025 4:07 PM [facility] 01-22-2025 Instructions Lucille Brandt PA-C - 01/22/2025 7:50 AM EDT Get labs drawn, no need of fasting -Schedule Xray of neck and back -Schedule EMG: Please call the [facility] [place] call center at [phone] to make your EMG testing appointment at one of the following locations: [facility] and [facility] Please make sure that your test is scheduled at one of the above locations. -follow up after work up is completed, encourage in person visit to aid detailed neuro and sensory exam documented in this encounter [facility] 01-22-2025 History of Present illness Narrative Images from the original note were not included. [facility] New Patient Evaluation This [...] visit. Either the patient or their legal mill representative has been informed of the risks and benefits of -- and alternatives to -- treatment through a remote evaluation and consents to proceed with the evaluation remotely. Confirmed verbally that the patient currently located in the [facility].Yes Confirmed verbally that the patient consents to being seen virtually today.Yes Confirmed verbally that the patient consents to being seen by a physician executive administrative assistant.Yes CHIEF COMPLAINT: Neuropathy, luz Christinaleena patient Santos Allan is a 58 year old right-handed female with a history of HTN, DM type 2 (in 30s then had bariatric surgery) currently non diabetic, HLD, bipolar 1, anxiety, anemia, sjogrens, hypothyroidism, REMIGIO. S/p cervical decompression surgery x 2 at [facility] 2019 She is unaccompanied Last visit with [...] veg -s/p cervical decompression x 2 with [facility] 2009 and 2013 -she has neck pain [...] S/p cervical decompression surgery x 2 at [facility] Patient is, Luz patient at [facility], seen virtually today for worsening symptoms of paresthesias/crunchiness sensation in her toes bilaterally. S/p cervical decompression x 2 with [facility], last surgery was 2013 She is symptomatically managed with gabapentin 400 mg 3 times daily, also on hydrocodone/acetaminophen 20 pills in a month for arthritis symptoms. Her limited virtual neuroexam is unremarkable EMG 09/2023 and most recent labs including TSH and A1c reviewed There is no neuroimaging in our charts from her prior surgery at [facility] Paresthesia in both toes, unclear etiology peripheral [...] a follow-up with Luz as well at [facility]. I spent a total of 35 minutes on the date of the service which included preparing to see the patient, tfee-vy-fatm patient care, completing clinical documentation, obtaining and/or [...] your PCP/referring physician documented in this encounter [facility] 01-22-2025 Note HNO ID: [id number] Author: LUCILLE BRANDT PA-C Service: ? Author Type: Physician Metal Control Worker Type: Progress Notes Filed: 01/22/2025 12:06 Note Text: [facility] New Patient Evaluation This [...] visit. Either the patient or their legal mill representative has been informed of the risks and benefits of -- and alternatives to -- treatment through a remote evaluation and consents to proceed with the evaluation remotely. Confirmed verbally that the patient currently located in the [facility].Yes Confirmed verbally that the patient consents to being seen virtually today.Yes Confirmed verbally that the patient consents to being seen by a physician executive administrative assistant.Yes CHIEF COMPLAINT: Neuropathy, luz Meeks patient Santos Allan is a 58 year old right-handed female with a history of HTN, DM type 2 (in 30s then had bariatric surgery) currently non diabetic, HLD, bipolar 1, anxiety, anemia, sjogrens, hypothyroidism, REMIGIO. S/p cervical decompression surgery x 2 at [facility] 2019 She is unaccompanied Last visit with [...] foot -There iscru (more content not included)... [facility] 12-13-2024 Telephone encounter Note Patient Magic Wheelshart message requesting the following refill Refill(s) Requested: Requested Prescriptions Pending Prescriptions Disp Refills omeprazole (PRILOSEC) 20 mg capsule 90 capsule 3 Sig: Take 1 capsule by mouth once daily. ALLERGIES Allergen Reactions Gabapentin Swelling Hydrocodone-Acetami* Itching Imitrex [Sumatripta* Face went numb Prednisone Mental Status Change (home) [phone] (work) [phone] (cell) Last Office Visit Date: 11/10/2024 Last Distance Health Visit: 04/03/2024 Future Appointment: 03/12/2025 The patients preferred pharmacy has been captured for this encounter? yes Request is for script(s) to be escript to pharmacy. Kristina Law LPN [facility] 12-13-2024 Miscellaneous Notes Patient Magic Wheelshart message requesting the following refill Refill(s) Requested: Requested Prescriptions Pending Prescriptions Disp Refills omeprazole (PRILOSEC) 20 mg capsule 90 capsule 3 Sig: Take 1 capsule by mouth once daily. ALLERGIES Allergen Reactions Gabapentin Swelling Hydrocodone-Acetami* Itching Imitrex [Sumatripta* Face went numb Prednisone Mental Status Change (home) [phone] (work) [phone] (cell) Last Office Visit Date: 11/10/2024 Last Distance Health Visit: 04/03/2024 Future Appointment: 03/12/2025 The patients preferred pharmacy has been captured for this encounter? yes Request is for script(s) to be escript to pharmacy. Kirstina Law LPN documented in this encounter [facility] 11-10-2024 Note HNO ID: [id number] Author: ANA BOLAÑOS MD Service: ? Author [...] packs/day: 0.5 packs (more content not included)... [facility] 11-10-2024 History of Present illness Narrative Reason [...] Ana Bolaños MD documented in this encounter [facility] 11-02-2024 Telephone encounter Note Patient has [...] Please advise. Thank you. Nadia Sam LPN. [facility] 11-02-2024 Miscellaneous Notes Patient has been [...] Nadia Sam LPN. documented in this encounter [facility] 10-20-2024 History of Present illness Narrative [...] PATIENT PRESENTS WITH AN IMPLANTABLE OR ATTACHED PRICE ECONOMIST: No RADIOLOGY DEPARTMENT: Mammography PERIPHERAL IV DATA: Not applicable SIGNED BY: JESSICA Pennington) October 20, 2024 7:29 AM documented in this encounter [facility] 10-20-2024 Note HNO ID: [id number] Author: IRIS VARGAS RT(R) Service: ? Author [...] PATIENT PRESENTS WITH AN IMPLANTABLE OR ATTACHED PRICE ECONOMIST: No RADIOLOGY DEPARTMENT: Mammography PERIPHERAL IV DATA: Not applicable SIGNED BY: JESSICA Pennington) October 20, 2024 7:29 AM [facility] 10-02-2024 Telephone encounter Note Prescription Refill Information [...] JEY Verdugo October 02, 2024 4:07 PM [facility] 10-02-2024 Miscellaneous Notes Prescription Refill Information [...] 2024 4:07 PM documented in this encounter [facility] 09-05-2024 Note HNO ID: [id number] Author: KATARINA GUILLORY APRN.LEAD ENGINEER Service: ? 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 As applicable, any other physician, advance practice provider, medical student, or other health professional student that will be observing or involved in the sensitive examination for educational or training purposes was discussed with the Patient or Authorized Stable Hand. The Patient or Authorized Stable Hand has agreed to proceed with the sensitive [...] external genitalia normal, (more content not included)... 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 As applicable, any other physician, advance practice provider, medical student, or other health professional student that will be observing or involved in the sensitive examination for educational or training purposes was discussed with the Patient or Authorized Stable Hand. The Patient or Authorized Stable Hand has agreed to proceed with the sensitive [...] external genitalia normal, normal Bartholin's glands, urethra, [place]'s glands, no vulvar lesions, no cervical lesions, [...] year or sooner as needed Katarina Guillory APRN.LEAD ENGINEER documented in this encounter [facility] 08-23-2024 Telephone encounter Note Spoke with pt and she was not able to get the Zepbound but was able to get Mounjaro. Please remove Zepbound from pt's med list. Alison Kumari LPN [facility] 08-23-2024 Miscellaneous Notes Spoke with pt and she was not able to get the Zepbound but was able to get Mounjaro. Please remove Zepbound from pt's med list. Alison Kumari LPN documented in this encounter [facility] 08-19-2024 Telephone encounter Note Images from the original note were not included. Electronic PA rec'd and completed for zepbound. This was approved. 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 Dispense: 2 mL Refills: 3 Start: 08/14/2024 Class: Normal This order has been released to its destination. To be filled at: e- [facility]/pharmacy #[id number] [place] [address] [address] [facility] - [phone] [phone] Pt notified via my chart. [facility] 08-19-2024 Miscellaneous Notes Images from the original note were not included. Electronic PA rec'd and completed for zepbound. This was approved. 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 Dispense: 2 mL Refills: 3 Start: 08/14/2024 Class: Normal This order has been released to its destination. To be filled at: [facility]/pharmacy #[id number] - [place] [address] [address] - [phone] [phone] Pt notified via my chart. documented in this encounter [facility] 08-11-2024 Note HNO ID: [id number] Author: ANA BOLAÑOS MD Service: ? Author [...] tablet cyanocobalamin, vitam (more content not included)... [facility] 08-11-2024 History of Present illness Narrative Reason [...] Ana Bolaños MD documented in this encounter [facility] 07-18-2024 Instructions Luz Meeks PA-C - 07/18/2024 4:28 PM EST Increase gabapentin to 400mg to three times a day Follow up in 6 months documented in this encounter [facility] 07-18-2024 Note HNO ID: [id number] Author: LUZ MEEKS PA-C Service: ? Author Type: Physician Metal Control Worker Type: Progress Notes Filed: 07/18/2024 16:39 Note [...] vision changes, speech/nusrat (more content not included)... [facility] 07-18-2024 History of Present illness Narrative ESTABLISHED [...] dysarthria; comprehension, naming, repetition intact. Short and penitentiary memory intact. CN: PERRL, EOMI and without nystagmus, VFF to confrontation, facial sensation and strength are normal and symmetric, hearing is intact to finger rub bilaterally, palate and tongue movements are intact and symmetric. SCM and trapezius strength normal. Motor: Normal tone, bulk and strength (5/5) bilaterally (throughout extremities x4). Reflexes: 1/4 to the Achilles bilaterally, otherwise intact reflexes Coordination: Szbl-cd-dfpj intact no tremors. Sensation: Decreased vibration at [...] which included preparing to see the patient, jeld-oq-uqca patient care, completing clinical documentation, obtaining and/or reviewing separately obtained history, performing a medically appropriate examination, counseling and educating the patient/family/caregiver, and ordering medications, tests, or procedures. This document has been created with the use of voice recognition technology. It may contain inaccuracies: (e.g. misspellings, inaccurate syntax or word sense) that have escaped review. [facility] website checked and validated. All prescriptions have been APPROPRIATELY filled. No suspicious activity was identified. 07/18/2024 by Luz Meeks PA-C documented in this encounter [facility] 07-17-2024 Telephone encounter Note Patient phones requesting refills as follows: Requested Prescriptions Pending Prescriptions Disp Refills potassium chloride (K-TAB) 10 mEq tablet 90 tablet 2 Sig: Take 1 tablet by mouth two times a day. Please review and advise. Edilson Sunshine MA [facility] 07-17-2024 Miscellaneous Notes Patient phones requesting refills as follows: Requested Prescriptions Pending Prescriptions Disp Refills potassium chloride (K-TAB) 10 mEq tablet 90 tablet 2 Sig: Take 1 tablet by mouth two times a day. Please review and advise. Edilson Sunshine MA documented in this encounter [facility] 06-26-2024 Telephone encounter Note Images from the original note were not included. Electronic PA completed and approved for zepbound.Prior authorization approved Payer: [employer] [phone] Note from payer: An active PA is [...] its destination. To be filled at: e- [facility]/pharmacy #[id number] [place] [address] [address] [facility]. - [phone] [phone] Pharmacy notified. [facility] 06-26-2024 Miscellaneous Notes Images from the original note were not included. Electronic PA completed and approved for zepbound.Prior authorization approved Payer: [employer] [phone] Note from payer: An active PA is [...] be filled at: e- [facility]/pharmacy #[id number] [place] [address] [address] [facility] - [phone] [address] [facility] [address] Pharmacy notified. documented in this encounter [facility] 06-26-2024 Telephone encounter Note Prescription Refill [...] Menon LPN June 26, 2024 8:26 AM [facility] 06-26-2024 Miscellaneous Notes Prescription Refill Information [...] 2024 8:26 AM documented in this encounter [facility] 06-02-2024 Telephone encounter Note Increasing gabapentin in the morning and evening. Will add 100mg bid. 400mg in the morning, 300mg in afternoon and 400mg in the evening. PDMP website checked and validated. All prescriptions have been APPROPRIATELY filled. No suspicious activity was identified. 06/02/2024 by Luz Meeks PA-C [facility] 06-02-2024 Miscellaneous Notes Increasing gabapentin in the morning and evening. Will add 100mg bid. 400mg in the morning, 300mg in afternoon and 400mg in the evening. PDMP website checked and validated. All prescriptions have been APPROPRIATELY filled. No suspicious activity was identified. 06/02/2024 by Luz Meeks PA-C documented in this encounter [facility] 05-09-2024 History of Present illness Narrative [...] Ana Bolaños MD documented in this encounter [facility] 04-13-2024 Telephone encounter Note Patient MyChart message requesting the following refill Refill(s) Requested: Requested Prescriptions Pending Prescriptions Disp Refills gabapentin (NEURONTIN) 300 mg capsule 270 capsule 1 Sig: Take 1 capsule by mouth three times a day for 180 days. ALLERGIES Allergen Reactions Imitrex [Sumatripta* Face went numb (home) [phone] (work) [phone] (cell) Last Office Visit Date: 03/03/2024 Last [facility] Health Visit: 04/03/2024 Future Appointment: 05/08/2024 The patients preferred pharmacy has been captured for this encounter? yes Request is for script(s) to be escript to pharmacy. Kristina Law LPN [facility] 04-13-2024 Miscellaneous Notes Patient MyChart message requesting the following refill Refill(s) Requested: Requested Prescriptions Pending Prescriptions Disp Refills gabapentin (NEURONTIN) 300 mg capsule 270 capsule 1 Sig: Take 1 capsule by mouth three times a day for 180 days. ALLERGIES Allergen Reactions Imitrex [Sumatripta* Face went numb (home) [phone] (work) [phone] (cell) Last Office Visit Date: 03/03/2024 Last [facility] Health Visit: 04/03/2024 Future Appointment: 05/08/2024 The patients preferred pharmacy has been captured for this encounter? yes Request is for script(s) to be escript to pharmacy. Kristina Law LPN documented in this encounter [facility] 04-05-2024 Telephone encounter Note Images from the original note were not included. The office rec'd and completed electronic PA for zepbound. This has been approved. Prior authorization approved Payer: [employer] [phone] CaseId:[id number];Status:Approved;Review Type:Prior Auth;Coverage Start Date:04/03/2024;Coverage End Date:12/01/2024; Approval [...] destination. To be filled at: [id number] [place] [address] [address] [facility]. - [phone] [phone] Pt notified via my chart. [facility] 04-05-2024 Miscellaneous Notes Images from the original note were not included. The office rec'd and completed electronic PA for zepbound. This has been approved. Prior authorization approved Payer: [employer] [phone] CaseId:[id number];Status:Approved;Review Type:Prior Auth;Coverage Start Date:04/03/2024;Coverage End Date:12/01/2024; Approval [...] to its destination. To be filled at: [facility]/pharmacy #[id number] [place] [address] [address] [facility]. - [phone] [phone] Pt notified via my chart. documented in this encounter [facility] 04-03-2024 Instructions Jacquie Clarke, LIZETH.LEAD ENGINEER - 04/03/2024 11:48 AM EDT Tirzepatide Injection [...] noting that the study was funded by [employer]. Another double-blind, placebo-controlled trial examined the effects [...] the placebo.This research also received funds from [employer]. Concerns: The most common side effects are nausea, diarrhea, vomiting and constipation documented in this encounter [facility] 04-03-2024 History of Present illness Narrative This Team Access Model visit is a virtual encounter. It required patient-provider interaction for the medical decision making as documented below. I have communicated my name and active licensure. The patient's identity and physical location were verified at the time of this visit. Either the patient or their legal mill representative has been informed of the risks and benefits of -- and alternatives to -- treatment through a remote evaluation and consents to proceed with the evaluation remotely. Patient Location: [place] CC: Patient presents with: Medication Follow-up HPI [...] Patient agreeable to treatment plan. Jacquie Clarke APRN.LEAD ENGINEER documented in this encounter [facility] 03-28-2024 Instructions Luz Meeks PA-C - 03/28/2024 7:36 AM EDT Alpha lipoic 600mg and continue gabapentin 300mg three times a day Increase water intake, slow transitions from sitting to standing, compression socks if you have leg swelling Follow up as needed documented in this encounter [facility] 03-28-2024 History of Present illness Narrative Images from the original note were not included. [facility]rology Outpatient Clinic Date: March 28, 2024 Patient Name: Santos Allan Referring physician: No referring provider defined for this encounter. Primary physician: Ana Bolaños [address] [place] [address] Reason for Evaluation: Paresthesias Subjective HPI Santos [...] Negative Coordination: finger-to- nose-finger intact bilaterally and iwep-cd-qhrx intact bilaterally. Gait: Patient's gait is normal, [...] which included preparing to see the patient, egts-ur-rboj patient care, completing clinical documentation, obtaining and/or reviewing separately obtained history, performing a medically appropriate examination, counseling and educating the patient/family/caregiver, and ordering medications, tests, or procedures. Luz Meeks PA-C [facility] Neurology This document has been created [...] and warrants attention documented in this encounter [facility] 06-21-2024 History of Present illness Narrative [...] options, medications, and coordinating care. Jacquie Clarke APRN.LEAD ENGINEER documented in this encounter [facility] 02-04-2024 Instructions Jacquie Clarke APRN.BRITANY - [...] in your ears documented in this encounter [facility] 02-04-2024 History of Present illness Narrative [...] activity was identified. 02/04/2024 by Jacquie Clarke APRN.LEAD ENGINEER - reviewed SE, medication expectations, required weight [...] Jacquie Clarke APRN.BRITANY documented in this encounter [facility] 01-31-2024 Telephone encounter Note The following approved medication requests have been transmitted electronically. Requested Prescriptions Pending Prescriptions Disp Refills traZODone (DESYREL) 50 mg tablet [Pharmacy Med Name: TRAZODONE 50 MG TABLET] 90 tablet 1 Sig: TAKE 1 TABLET BY MOUTH EVERYDAY AT BEDTIME Balwinder Hernandez APRN.BRITANY [facility] Work Phone: 01-31-2024 Miscellaneous Notes The [...] C Canela LPN. documented in this encounter [facility] 01-31-2024 Telephone encounter Note Patient has [...] advise. Thank you. Maria C Canela LPN. [facility] 01-07-2024 Instructions Fior Alvarez APRN.CNP - 01/07/2024 7:47 AM EDT Weight loss medications: Phentermine: stimulant but affordable. Talk with Dr. Davies to see if he feels this would be appropriate to use. Zepbound - once a week injectable. Check website to see what cost would be for you. documented in this encounter [facility] 01-07-2024 History of Present illness Narrative [...] - Instructed patient to contact office or quyhk-bd-notn after-hours promptly should condition worsen or any [...] Fior Alvarez APRN.CNP documented in this encounter [facility] 11-18-2023 Miscellaneous Notes Wenceslao Molina [facility] [employer] called and is notified of providers message. [...] to take the eletriptan? Please phone @ [phone] with reference # [id number] and let them know. documented in this encounter [facility] 11-17-2023 Miscellaneous Notes [facility] [employer] called and is notified of providers message [...] a day? Reference number for this is [id number]. Can send new rx with correction. Please advise documented in this encounter [facility] 11-05-2023 Miscellaneous Notes Patient has been [...] C Canela LPN. documented in this encounter [facility] 09-02-2023 Note [facility]IATRIC CARE [facility] Ortega PROGRESS NOTE POST WEIGHT LOSS SURGERY FOLLOW UP Patient: Santos Allan Service Date: 09/02/2023 Patient is 12 month(s) s/p Sleeve Gastrectomy Today's Metrics: Post-Surgical Weight Loss Date: 09/02/23 Height: 5' 6.25 (168.3 cm) ([facility] - ht recheck) Weight: 229 lb (104 kg) ([facility]) BMI: 36.68 Weight Change: 16.6 lbs [...] or BRUNILDA If YES: Labs completed at [facility]? no If yes see Labs Tab Labs completed at Non-[facility] facility? yes If yes see Encounters Tab - Orders only - Historical Provider - Date: 08/20/2023 Completed by: Kristina Dillard MA [facility] 09-02-2023 History of Present illness Narrative [facility] SURGICAL PROGRAM Patient: Santos [...] Surgeon (Bariatric Surgery) PHILL Mojica as Physician Metal Control Worker (Bariatrics) [facility] C[facility] PROGRESS NOTE POST WEIGHT LOSS SURGERY FOLLOW UP Patient: Santos Allan Service Date: 09/02/2023 Patient is 12 month(s) s/p Sleeve Gastrectomy Today's Metrics: Post-Surgical Weight Loss Date: 09/02/23 Height: 5' 6.25 (168.3 cm) ([facility] - ht recheck) Weight: 229 lb (104 kg) ([facility]) BMI: 36.68 Weight Change: 16.6 lbs [...] or BRUNILDA If YES: Labs completed at [facility]? no If yes see Labs Tab Labs completed at Non[facility] facility? yes If yes see Encounters Tab - Orders only - Historical Provider - Date: 08/20/2023 Completed by: Kristina Dillard MA [facility] BARIATRIC CARE [place] > 6 MONTH POST-OPERATIVE DIETITIAN VISIT Date: [...] Marilou Clifton RD documented in this encounter [facility] 08-19-2023 History of Present illness Narrative CC: [...] Fior Alvarez APRN.CNP documented in this encounter [facility] 05-28-2023 Telephone encounter Note DOS 09/02/22 LSG w/ HH JZ TFU BAND 2008 at [place] 11/18/21 Lap removal of gastric band JZ Last OV-04/05/23 with MZ, next 09/02/23 with JZ Per last OV note, pt PPI was d/c'd and pt was instructed to call the office with development of s/s. Will route to PA for review of pt request for rx d/t s/s [facility] 05-28-2023 Miscellaneous Notes DOS 09/02/22 LSG w/ HH JZ TFU BAND 2008 at [place] 11/18/21 Lap removal of gastric band JZ Last OV-04/05/23 with MZ, next 09/02/23 with JZ Per last OV note, pt PPI was d/c'd and pt was instructed to call the office with development of s/s. Will route to PA for review of pt request for rx d/t s/s documented in this encounter [facility] 04-05-2023 Note BARIATRIC CARE [facility]EL[facility] Ortega PROGRESS NOTE POST WEIGHT LOSS SURGERY FOLLOW UP Patient: Santos Allan Service Date: 04/05/2023 Patient is 6 month(s) s/p Sleeve Gastrectomy Today's Metrics: Post-Surgical Weight Loss Date: 04/05/23 Height: 5' 7 (170.2 cm) ([facility]) Weight: 212 lb 6.4 oz (96.3 kg) ([facility]) BMI: 33.26 Weight Change: -16 lbs [...] or BRUNILDA If YES: Labs completed at [facility]? no If yes see Labs Tab Labs completed at Non[facility] facility? yes If yes see Encounters Tab - Orders only - Historical Provider - Date: 03/25/2023 Completed by: Kristina Dillard MA [facility] 04-05-2023 History of Present illness Narrative [facility]IC [facility] > 6 MONTH POST-OPERATIVE DIETITIAN VISIT [...] well overall. Patient instructed to call or Magic Wheelshart message with any questions or concerns Visit [...] send results to: Ana Bolaños MD - [address] [facility] [id number] - [phone] And if not done at a [facility] Facility, please send to: [place] [address] Patient Name: Santos Gravesfahad - 1965 Order Created by : Kristina Dillard MA Standing Status: Future Standing Expiration Date: 04/05/2024 Folate These orders are set for an approximate date - they can be drawn up to 3 months prior to the Expected Date on this Req. Please send results to: Ana Bolaños MD - [address] [facility] [id number] - [phone] And if not done at a [facility] Facility, please send to: [address], [address], [address] Patient Name: Santos Gravesmuralisangita - 1965 Order Created by : Kristina Dillard MA Standing Status: Future Standing Expiration Date: 04/05/2024 Iron These orders are set for an approximate date - they can be drawn up to 3 months prior to the Expected Date on this Req. Please send results to: Ana Bolaños MD - [address] [facility] [id number] - [phone] And if not done at a [facility] Facility, please send to: [address], [address] Patient Name: Santos Allan - 1965 Order Created by : Kristina Dillard MA Standing Status: Future Standing Expiration Date: 04/05/2024 Ferritin These orders are set for an approximate date - they can be drawn up to 3 months prior to the Expected Date on this Req. Please send results to: Ana Bolaños MD - [address] [facility] [address] - [phone] And if not done at a [facility] Facility, please send to: [address], [facility] Patient Name: Santos Allan - 1965 Order Created by : Kristina Dillard MA Standing Status: Future Standing Expiration Date: 04/05/2024 Magnesium These orders are set for an approximate date - they can be drawn up to 3 months prior to the Expected Date on this Req. Please send results to: Ana Bolaños MD - [address] [facility] [address] - [phone] And if not done at a [facility] Facility, please send to: [address], [address] Patient Name: Santos Allan - 1965 Order Created by : Kristina Dillard MA Standing Status: Future Standing Expiration Date: 04/05/2024 Vitamin D Deficiency Screening (Vit D 25) These orders are set for an approximate date - they can be drawn up to 3 months prior to the Expected Date on this Req. Please send results to: Ana Bolaños MD - [facility] [address] - [phone] And if not done at a [facility] Facility, please send to: [place] [address] Patient Name: Santos Allan - 1965 Order Created by : Kristina Dillard MA Standing Status: Future Standing Expiration Date: 04/05/2024 Vitamin B12 These orders are set for an approximate date - they can be drawn up to 3 months prior to the Expected Date on this Req. Please send results to: MD Simon Stone [address] [place] [id number] - [phone] And if not done at a [facility] Facility, please send to: [place] [address] Patient Name: Santos Abarcat - 1965 Order Created by : Kristina Dillard MA Standing Status: Future Standing Expiration Date: 04/05/2024 Vitamin B1, whole blood These orders are set for an approximate date - they can be drawn up to 3 months prior to the Expected Date on this Req. Please send results to: [facility] [facility]US [address] - [phone] And if not done at a [facility], please send to: [place] [address] Patient Name: Santos Allan - 1965 Order Created by : Kristina Dillrad MA Standing Status: Future Standing Expiration Date: 04/05/2024 Lipid panel These orders are set for an approximate date - they can be drawn up to 3 months prior to the Expected Date on this Req. Please send results to: MD Simon Stone [address] [facility] [address] - [phone] And if not done at a [facility], please send to: [address], [address] Patient Name: Santos Allan - 1965 Order Created by : Kristina Dillard MA Standing Status: Future Standing Expiration Date: 04/05/2024 Comprehensive metabolic panel These orders are set for an approximate date - they can be drawn up to 3 months prior to the Expected Date on this Req. Please send results to: Ana Bolaños MD - [facility] [address] - [phone] And if not done at a [facility], please send to: [address], [address] Patient Name: Santos Allan - 1965 Order Created by : Kristina Dillard MA Standing Status: Future Standing Expiration Date: 04/05/2024 CBC These orders are set for an approximate date - they can be drawn up to 3 months prior to the Expected Date on this Req. Please send results to: Ana Bolaños MD - [address] [facility] [address] - [phone] And if not done at a [facility], please send to: [address], [address] Patient Name: Santos Allan - 1965 Order Created by : Kristina Dillard MA Standing Status: Future Standing Expiration Date: 04/05/2024 Vitamin D Deficiency Screening (Vit D 25) These orders are set for an approximate date - they can be drawn up to 3 months prior to the Expected Date on this Req. Please send results to: Ana Bolaños MD - [address] [facility] [address] - [phone] And if not done at a [facility], please send to: [address], [address] - [facility], [address] Patient Name: Santos Allan - 1965 Order [...] Date: 04/05/23 Height: 5' 7 (170.2 cm) ([facility]) Weight: 212 lb 6.4 oz (96.3 kg) ([facility]) BMI: 33.26 Weight Change: -16 lbs [...] Kristina Dillard MA documented in this encounter [facility] 12-22-2022 Miscellaneous Notes Faxed order, office notes, demographics, and sleep study to: DME name: SOPHIE CHAVEZ fax: [phone] DME ph: documented in this encounter [facility] 12-21-2022 History of Present illness Narrative Images from the original note were not included. [facility] Virtual Visit Follow up/ Established patient visit Date of last visit : 09/21/2022 I have communicated my name and active licensure. The patient's identity and physical location were verified at the time of this visit. Either the patient or their legal mill representative has been informed of the risks [...] DME: : Sophie de la rosa Ph. [phone] PAP History: Current PAP setting: Auto-bilevel PAP [...] or near accidents due to drowsy drivin [place] Sleepiness Scale 11/15/2021 09/14/2022 12/16/2022 Score 10 [...] 10 mg by mouth twice daily. ) buiqg-ur-8-oum-fty-fycfyrd-ast (KRILL OIL) 1,489-192-04-50 mg cap Take 1,000 mg by mouth [...] tests, or procedures. documented in this encounter [facility] 12-04-2022 History of Present illness Narrative [...] 10 mg by mouth twice daily. ) eduke-wm-1-yml-uzr-nydlmrj-ast (KRILL OIL) 1,359-738-48-50 mg cap Take 1,000 mg by mouth [...] psychiatry. - Reviewed concept of neurochemical imbalance [facility] depression/anxiety, treatment options and benefits of counseling in combination with medication. Also reviewed benefits of sleep hygeine, diet and exercise - Instructed patient to contact office or xorwl-ur-xfrc after-hours promptly should condition worsen or any [...] Fior Alvarez APRN.CNP documented in this encounter [facility] 12-02-2022 Note BARIATRIC CARE AVELINO Ortega PROGRESS NOTE POST WEIGHT LOSS SURGERY FOLLOW UP Patient: Santos Allan Service Date: 12/02/2022 Patient is 3 month(s) s/p Sleeve Gastrectomy Today's Metrics: Post-Surgical Weight Loss Date: 12/02/22 Height: 5' 7 (170.2 cm) ([facility]) Weight: 228 lb 6.4 oz (104 kg) ([facility]) BMI: 35.77 Weight Change: -20.4 lbs Total [...] or BRUNILDA If YES: Labs completed at [facility]? no If yes see Labs Tab Labs completed at [facility] facility? yes If yes see Encounters Tab - Orders only - Historical Provider - Date: 11/13/2022 SCANNED INTO MEDIA Completed by: Kristina Dillard MA [facility] 12-02-2022 History of Present illness Narrative Images [...] send results to: Ana Bolaños MD - 2003 [facility] [address] - [phone] And if not done at a [facility], please send to: [facility] [place] - [address] [place] [address], [address] [facility], [address] Patient Name: Santos Allan - 1965 Order Created by : Kristina Dillard MA Standing Status: Future Standing Expiration Date: 12/03/2023 Folate These orders are set for an approximate date - they can be drawn up to 3 months prior to the Expected Date on this Req. Please send results to: Ana Bolaños MD - [address] [facility] [address] - [phone] And if not done at a [facility], please send to: [place] [address] Patient Name: Santos Allan - 1965 Order Created by : Kristina Dillard MA Standing Status: Future Standing Expiration Date: 12/03/2023 Iron These orders are set for an approximate date - they can be drawn up to 3 months prior to the Expected Date on this Req. Please send results to: Ana Bolaños MD - [facility] [address] - [phone] And if not done at a [facility], please send to: [place] [address] Patient Name: Santos Allan - 1965 Order Created by : Kristina Dillard MA Standing Status: Future Standing Expiration Date: 12/03/2023 Ferritin These orders are set for an approximate date - they can be drawn up to 3 months prior to the Expected Date on this Req. Please send results to: Ana Bolaños MD - [address] [facility] [address] - [phone] And if not done at a [facility], please send to: [address], [address] Patient Name: Santos Allan - 1965 Order Created by : Krisitna Dillard MA Standing Status: Future Standing Expiration Date: 12/03/2023 Magnesium These orders are set for an approximate date - they can be drawn up to 3 months prior to the Expected Date on this Req. Please send results to: MD Simon Stone [address] [place] [address] - [phone] And if not done at a [facility], please send to: [address], [facility] Patient Name: Santos Allan - 1965 Order Created by : Kristina Dillard MA Standing Status: Future Standing Expiration Date: 12/03/2023 Vitamin D 25 hydroxy These orders are set for an approximate date - they can be drawn up to 3 months prior to the Expected Date on this Req. Please send results to: MD Simon Stone [address] [place] [address] - [phone] And if not done at a [facility], please send to: [place] [address] Patient Name: Santos Allan - 1965 Order Created by : Kristina Dillard MA Standing Status: Future Standing Expiration Date: 12/03/2023 Vitamin B12 These orders are set for an approximate date - they can be drawn up to 3 months prior to the Expected Date on this Req. Please send results to: MD Simon Stone [address] [place] [address] - [phone] And if not done at a [facility], please send to: [place] [address] Patient Name: Santos Allan - 1965 Order Created by : Kristina Dillard MA Standing Status: Future Standing Expiration Date: 12/03/2023 Vitamin B1, whole blood These orders are set for an approximate date - they can be drawn up to 3 months prior to the Expected Date on this Req. Please send results to: MD [facility] [address] - [phone] And if not done at a [facility], please send to: [address], [address] Patient Name: Santos Allan - 1965 Order Created by : Kristina Dillard MA Standing Status: Future Standing Expiration Date: 12/03/2023 Lipid panel These orders are set for an approximate date - they can be drawn up to 3 months prior to the Expected Date on this Req. Please send results to: Ana Bolaños MD - [address] [place] [address] - [phone] And if not done at a [facility], please send to: [address], [facility] Patient Name: Santos Abarcat - 1965 Order Created by : Kristina Dillard MA Standing Status: Future Standing Expiration Date: 12/03/2023 Comprehensive metabolic panel These orders are set for an approximate date - they can be drawn up to 3 months prior to the Expected Date on this Req. Please send results to: MD Simon Stone [facility] [address] - [phone] And if not done at a [facility], please send to: [address], [address] Patient Name: Santos Abarcat - 1965 Order Created by : Kristina Dillard MA Standing Status: Future Standing Expiration Date: 12/03/2023 CBC These orders are set for an approximate date - they can be drawn up to 3 months prior to the Expected Date on this Req. Please send results to: MD Simon Stone [address] [facility] [address] - [phone] And if not done at a [facility], please send to: [facility]ric [facility] - [address] [place] [address], [address] [place], [address] Patient Name: Santos Allan - 1965 Order [...] mouth in the morning. [DISCONTINUED] nystatin (Mycostatin) 365431 UNIT/ML suspension Swish and spit 5 mL [...] by mouth in the morning. NYSTATIN (MYCOSTATIN) 660371 UNIT/ML SUSPENSION Swish and spit 5 mL [...] Date: 12/02/22 Height: 5' 7 (170.2 cm) ([facility]) Weight: 228 lb 6.4 oz (104 kg) ([facility]) BMI: 35.77 Weight Change: -20.4 lbs Total [...] or BRUNILDA If YES: Labs completed at [facility]? no If yes see Labs Tab Labs completed at [facility] facility? yes If yes see Encounters Tab - Orders only - Historical Provider - Date: 11/13/2022 SCANNED INTO MEDIA Completed by: Kristina Dillard MA [facility] 3 MONTH POST-OPERATIVE DIETITIAN VISIT Date: 12/02/22 [...] Lorena Alexis RD documented in this encounter [facility] 10-23-2022 Miscellaneous Notes May at Dr [...] Thank you Fior Alvarez APRN.CNP May at [facility] called and is notified of providers [...] APRN.CNP Alcira from Dr. Ortiz's office at [facility] calls and states that Dr. Ortiz was wanting to prescribe patient meloxicam 15 mg for 30 days, however patient had told him that she cannot take oral NSAIDS. Dr. Ortiz asking if provider can prescribe medication in injection form? Please review and advise, Sherry Roman RN documented in this encounter [facility] 10-08-2022 Note BARIATRIC CARE AVELINO Ortega [...] or BRUNILDA If YES: Labs completed at [facility]? no If yes see Labs Tab Labs completed at [facility]? Yes, [facility] If yes see Encounters Tab - Orders only - Historical Provider - Date: Completed by: Mckenzie [facility] 10-08-2022 History of Present illness Narrative Images from the original note were not included. [facility] SURGICAL PROGRAM Patient: Santos [...] 25 MG 24 HR TABLET NYSTATIN (MYCOSTATIN) 631319 UNIT/ML SUSPENSION Swish and spit 5 mL [...] by mouth in the morning. nystatin (Mycostatin) 881917 UNIT/ML suspension Swish and spit 5 mL [...] Surgeon (Bariatric Surgery) PHILL Mojica as Physician Metal Control Worker (Bariatrics) [facility]ARE CENTER PROGRESS NOTE POST [...] instructed to get labs drawn today or BURNILDA If YES: Labs completed at [facility]? no If yes see Labs Tab Labs completed at [facility]? Yes, [facility] If yes see Encounters Tab - Orders only - Historical Provider - Date: Completed by: Mckenzie Samayoa [facility] 1 MONTH POST-OPERATIVE DIETITIAN VISIT Date: [...] Marilou Clifton RD documented in this encounter [facility] 10-02-2022 Telephone encounter Note Signedcarmella [facility] 10-02-2022 Miscellaneous Notes Signedcarmella DOS 09/02/22 LSG w/ JZ TFU BAND 2007 at [facility] PD IN FULL. MB 11/18/21 Lap removal [...] sign. Thank you! documented in this encounter [facility] 10-01-2022 Telephone encounter Note DOS 09/02/22 LSG w/ HH JZ TFU BAND 2007 at [facility] PD IN FULL. MB 11/18/21 Lap removal [...] week. Order pending. Please sign. Thank you! [employer] Phone: 10-01-2022 Miscellaneous Notes I called patient [...] Dr. Ortiz requesting a call back at [phone]. Samra Bolanos RN documented in this encounter [facility] 09-21-2022 History of Present illness Narrative ESTABLISHED PATIENT VISIT (Virtual Visit with Video) For this virtual visit, the patient has been identified by name and (MRN and photo identification as well if available). Those taking part in visit: Patient with physician via [employer]. Consent for this visit received from patient. [...] of use from the summer (scanned in [employer]). Per records, pt with GI surgery [...] 10 mg by mouth twice daily. ) phmoc-cc-4-tde-nvp-mbemokv-ast (KRILL OIL) 1,717-533-48-50 mg cap Take 1,000 mg by mouth [...] 5 (Mild Depression) - 1 (None-Minimal Depression) [place] Sleepiness Scale 11/15/2021 08/28/2022 09/14/2022 Score 10 [...] which included preparing to see the patient, ltdr-wi-doaa patient care, completing clinical documentation, obtaining and/or reviewing separately obtained history, performing a medically appropriate examination, counseling and educating the patient/family/caregiver, ordering medications, tests, or procedures, and communicating results to the patient/family/caregiver. documented in this encounter [facility] 09-10-2022 History of Present illness Narrative Images from the original note were not included. [facility] SURGICAL PROGRAM Patient: Santos [...] send results to: Ana Bolaños MD - [address] [facility] [address] - [phone] And if not done at a [facility], please send to: [facility] [place] - [address] [place] [address], [address] [facility], [address] Patient Name: Santos Allan - 1965 Order Created by : Mckenzie Samayoa Standing Status: Future Standing Expiration Date: 09/10/2023 Folate These orders are set for an approximate date - they can be drawn up to 3 months prior to the Expected Date on this Req. Please send results to: Ana Bolaños MD - [address] [facility] [address] - [phone] And if not done at a [facility], please send to: [place] [address] Patient Name: Santos Allan - 1965 Order Created by : Mckenzie Samayoa Standing Status: Future Standing Expiration Date: 09/10/2023 Iron These orders are set for an approximate date - they can be drawn up to 3 months prior to the Expected Date on this Req. Please send results to: Ana Bolaños MD - [address] [facility] [address] - [phone] And if not done at a [facility], please send to: [address], [facility] Patient Name: Santos Allan - 1965 Order Created by : Mckenzie Samayoa Standing Status: Future Standing Expiration Date: 09/10/2023 Ferritin These orders are set for an approximate date - they can be drawn up to 3 months prior to the Expected Date on this Req. Please send results to: Ana Bolaños MD - 40[address] [facility] [address] - [phone] And if not done at a [facility], please send to: [address], [address] Patient Name: Santos Allan - 1965 Order Created by : Mckenzie Samayoa Standing Status: Future Standing Expiration Date: 09/10/2023 Magnesium These orders are set for an approximate date - they can be drawn up to 3 months prior to the Expected Date on this Req. Please send results to: MD [facility] [address] - [phone] And if not done at a [facility], please send to: [address], [address] Patient Name: Santos Allan - 1965 Order Created by : Mckenzie Samayoa Standing Status: Future Standing Expiration Date: 09/10/2023 Vitamin B12 These orders are set for an approximate date - they can be drawn up to 3 months prior to the Expected Date on this Req. Please send results to: MD Simon Stone [facility] [address] - [phone] And if not done at a [facility], please send to: [place] [id number] Patient Name: Santos Allan - 1965 Order Created by : Mckenzie Samayoa Standing Status: Future Standing Expiration Date: 09/10/2023 Comprehensive metabolic panel These orders are set for an approximate date - they can be drawn up to 3 months prior to the Expected Date on this Req. Please send results to: MD Simon Stone [facility] [address] - [phone] And if not done at a [facility], please send to: [address], [address] Patient Name: Santos Allan - 1965 Order Created by : Mckenzie Samayoa Standing Status: Future Standing Expiration Date: 09/10/2023 CBC These orders are set for an approximate date - they can be drawn up to 3 months prior to the Expected Date on this Req. Please send results to: MD Simon Stone [facility] [address] - [phone] And if not done at a [facility], please send to: [facility] - [address] [place] [address], [address] [place], [address] Patient Name: Santos Allan - 1965 Order [...] by mouth in the morning. nystatin (Mycostatin) 118883 UNIT/ML suspension Swish and spit 5 mL [...] Medications: Patient's Medications New Prescriptions NYSTATIN (MYCOSTATIN) 635301 UNIT/ML SUSPENSION Swish and spit 5 mL [...] Surgeon (Bariatric Surgery) PHILL Mojica as Physician Metal Control Worker (Bariatrics) [facility] POST WEIGHT LOSS SURGERY FOLLOW UP - 1 WEEK Rooming Note Patient: Santos Allan Service Date: 09/10/2022 Patient is 1 week s/p Lap Sleeve Gastrectomy Pre-Surgical Weight Loss Initial Height: 5' 7 (170.2 cm) Initial Weight: 271 lb (123 kg) Initial BMI: 42.44 [place] Body Weight: 135 lb (61.2 kg) Surgery [...] Total Weight Change: -8.8 lbs Completed by: Mkcenzie Samayoa [facility] 1 WEEK VISIT POST-OPERATIVE DIETITIAN Date: [...] Marilou Clifton RD documented in this encounter [facility] 08-28-2022 History of Present illness Narrative [...] Having a stomach sleeve bariatric surgery at [facility] next Wednesday.Has had 2 different banding surgeries in the past that the band would slip. 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 REVIEW OF SYSTEMS General: no fevers, no [...] Take 1 tablet at approximately 7 PM. mfbmu-az-1-uqz-asw-blneome-ast (KRILL OIL) 1,318-420-98-50 mg cap Take 1,000 mg by mouth [...] Fior Alvarez APRN.CNP documented in this encounter [facility] 04-09-2022 Miscellaneous Notes Orders for mask fitting and request EARL notes faxed to Sophie. DWAYNE Verdugo documented in this encounter [facility] 04-06-2022 History of Present illness Narrative [...] 1 tablet by mouth three times daily. efufp-rp-5-iug-jwe-vrxhkzb-ast (KRILL OIL) 1,561-058-14-50 mg cap Take 1,000 mg by mouth [...] and myositis, unspecified REMIGIO (obstructive sleep apnea) [facility] [place] Auto[place]AP Other and unspecified hyperlipidemia Right [...] obesity type, unspecified whether serious comorbidity present ([facility]) - ICD9: 278.01, V85.41, ICD10: [...] which included preparing to see the patient, mjjw-xj-qglv patient care, completing clinical documentation, obtaining and/or reviewing separately obtained history, performing a medically appropriate examination, counseling and educating the patient/family/caregiver, ordering medications, tests, or procedures, independently interpreting results (not separately reported) and communicating results to the patient/family/caregiver. documented in this encounter [facility] 03-11-2022 Miscellaneous Notes TC to patient to verify DME company for PAP compliance. Pt uses [facility]. Information updated in pt chart. DWAYNE Verdugo documented in this encounter [facility] 02-17-2022 Miscellaneous Notes Received BIPAP and supplies order form from [facility]. The form requires the provider's signature. Nurse will forward form to the provider for signature. documented in this encounter [facility] 02-06-2022 Miscellaneous Notes Information faxed. Janette Collazo LPN Will fax information to [facility]. [facility] and aware information being faxed to [phone] Attn: Allegra Emmanuel As requested. Janette Collazo LPN Allegra from [facility] - called regarding paperwork not received. Ie: Clinicals, sleep study, orders, demographics, etc. Was this faxed to [phone]? Please fax again. documented in this encounter [facility] 02-06-2022 Miscellaneous Notes Please see telephone encounter dated 02/04/2022. Janette Collazo LPN documented in this encounter [facility] 01-26-2022 Miscellaneous Notes New order for PAP settings faxed to [facility] at #[phone]. DWAYNE Verdugo documented in this encounter [facility] 01-23-2022 Miscellaneous Notes Emailed PSG Interpretation report with PAP Titration from [facility] to Dr Quinteros to address. documented in this encounter [facility] 01-09-2022 Miscellaneous Notes Patient has been [...] C Garcia LPN documented in this encounter [facility] 12-26-2021 Miscellaneous Notes This staff will fax the requested documents to [place] to the fax number provided [employer] ([employer] calls with patient also on the line stating that they are helping the patient to try to get her sleep study pre cert approved. [employer] is asking for office to send some information to them via fax. Patient gives verbal permission for this. [employer] asking for clinical notes documenting need for additional study and copy of study that was completed in November. Fax # to send to is . They ask that every page of fax contain patient name and along with Case # [id number]. documented in this encounter [facility] 12-17-2021 History of Present illness Narrative [...] Alexander Quinteros MD documented in this encounter [facility] 11-18-2021 History of Present illness Narrative Pt and family verbalized understanding of recovery instructions, pt verbalized a readiness to be discharged home. Pt discharged home via wheelchair accompanied by RN/volunteer. Pt has had all their belongings returned to them at discharge Pt received from OR via cart, spont. Resp. With CREW ATTENDANT in attendance. Placed on monitor. Monitor alarms on in PACU Belongings with patient. documented in this encounter [employer] Phone: 11-18-2021 Hospital Discharge instructions Gavin Moctezuma MD - 11/18/2021 Images from the original note were not included. [facility] - Surgery [facility] DISCHARGE INSTRUCTIONS FOR DR. MOCTEZUMA Thank you very much for allowing me to participate in your care, it is truly a privilege. Below please see discharge orders that will help you during your recovery. Please do not hesitate to call the office during the day at [phone] for any questions. After hours, the same [...] Moctezuma M.D., F.A.C.S. documented in this encounter [employer] Work Phone: 11-14-2021 Hospital Discharge instructions Juany Martinez RN - 11/14/2021 Zack: Enter through Door number 2 Registration department is located here Patient will be escorted to [facility] Zack does not open before 6am Shower with hibiclens Please bring your [facility] Information folder on the day of [...] call your surgeon. documented in this encounter [employer] Work Phone: 10-13-2019 History of Present illness Narrative PT AND FAMILY VERBALIZED UNDERSTANDING OF HOMEGOING INSTRUCTIONS, PT VERBALIZED A READINESS TO BE DISCHARGED HOME. PT DISCHARGED HOME VIA WHEELCHAIR ACCOMPANIED BY VOLUNTEER. PT HAS HAD ALL THEIR BELONGINGS RETURNED TO THEM AT DISCHARGE PATIENT RECEIVED FROM OR VIA CART FAST TRACK TO PHASE II . ALERT SPONT RESP. WITH CREW ATTENDANT IN ATTENDANCE documented in this encounter [employer] Work Phone: 07-22-2015 History of Past i llness Narrative Problem Noted Date Resolved Date Hyperlipidemia 07/22/2015 08/11/2016 Gastroparesis 01/18/2015 03/02/2016 Gastroparesis 01/02/2015 01/02/2015 Diabetes mellitus type 2, controlled, without co mplications 12/27/2014 01/20/2016 DIABETES MELLITUS ADULT ONSET 01/18/2007 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, [place], [place] HYPERTENSION BENIGN 01/18/2007 08/11/2016 HYPERLIPIDEMIA 01/18/2007 08/11/2016 Hypothyroidism 01/18/2007 03/02/2016 EDEMA EXTREMITIES 01/18/2007 08/11/2016 Anemia 02/22/2019 Last Assessment & Plan: Currently stable documented as of this encounter (statuses as of 12/16/2021) [facility] History of Past illness Narrative* Problem Noted Date Resolved Date Hyperlipidemia 07/22/2015 08/11/2016 Gastroparesis 01/18/2015 03/02/2016 Gastroparesis 01/02/2015 01/02/2015 Diabetes mellitus type 2, controlled, without co mplications 12/27/2014 01/20/2016 DIABETES MELLITUS ADULT ONSET 01/18/2007 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, [place], [place] HYPERTENSION BENIGN 01/18/2007 08/11/2016 HYPERLIPIDEMIA 01/18/2007 08/11/2016 Hypothyroidism 01/18/2007 03/02/2016 EDEMA EXTREMITIES 01/18/2007 08/11/2016 Anemia 02/22/2019 Last Assessment & Plan: Currently stable documented as of this encounter (statuses as of 12/17/2021) [facility] History of Past illness Narrative* Problem Noted Date Resolved Date Hyperlipidemia 07/22/2015 08/11/2016 Gastroparesis 01/18/2015 03/02/2016 Gastroparesis 01/02/2015 01/02/2015 Diabetes mellitus type 2, controlled, without co mplications 12/27/2014 01/20/2016 DIABETES MELLITUS ADULT ONSET 01/18/2007 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, [place] HYPERTENSION BENIGN 01/18/2007 08/11/2016 HYPERLIPIDEMIA 01/18/2007 08/11/2016 Hypothyroidism 01/18/2007 03/02/2016 EDEMA EXTREMITIES 01/18/2007 08/11/2016 Anemia 02/22/2019 Last Assessment & Plan: Currently stable documented as of this encounter (statuses as of 12/30/2021) [facility] History of Past illness Narrative* Problem Noted Date Resolved Date Hyperlipidemia 07/22/2015 08/11/2016 Gastroparesis 01/18/2015 03/02/2016 Gastroparesis 01/02/2015 01/02/2015 Diabetes mellitus type 2, controlled, without co mplications 12/27/2014 01/20/2016 DIABETES MELLITUS ADULT ONSET 01/18/2007 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, [place], [place] HYPERTENSION BENIGN 01/18/2007 08/11/2016 HYPERLIPIDEMIA 01/18/2007 08/11/2016 Hypothyroidism 01/18/2007 03/02/2016 EDEMA EXTREMITIES 01/18/2007 08/11/2016 Anemia 02/22/2019 Last Assessment & Plan: Currently stable documented as of this encounter (statuses as of 01/12/2022) [facility] History of Past illness Narrative* Problem Noted Date Resolved Date Hyperlipidemia 07/22/2015 08/11/2016 Gastroparesis 01/18/2015 03/02/2016 Gastroparesis 01/02/2015 01/02/2015 Diabetes mellitus type 2, controlled, without co mplications 12/27/2014 01/20/2016 DIABETES MELLITUS ADULT ONSET 01/18/2007 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, [place], [place] HYPERTENSION BENIGN 01/18/2007 08/11/2016 HYPERLIPIDEMIA 01/18/2007 08/11/2016 Hypothyroidism 01/18/2007 03/02/2016 EDEMA EXTREMITIES 01/18/2007 08/11/2016 Anemia 02/22/2019 Last Assessment & Plan: Currently stable documented as of this encounter (statuses as of 01/26/2022) [facility] History of Past illness Narrative* Problem Noted Date Resolved Date Hyperlipidemia 07/22/2015 08/11/2016 Gastroparesis 01/18/2015 03/02/2016 Gastroparesis 01/02/2015 01/02/2015 Diabetes mellitus type 2, controlled, without co mplications 12/27/2014 01/20/2016 DIABETES MELLITUS ADULT ONSET 01/18/2007 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, [place] HYPERTENSION BENIGN 01/18/2007 08/11/2016 HYPERLIPIDEMIA 01/18/2007 08/11/2016 Hypothyroidism 01/18/2007 03/02/2016 EDEMA EXTREMITIES 01/18/2007 08/11/2016 Anemia 02/22/2019 Last Assessment & Plan: Currently stable documented as of this encounter (statuses as of 01/26/2022) [facility] History of Past illness Narrative* Problem Noted Date Resolved Date Hyperlipidemia 07/22/2015 08/11/2016 Gastroparesis 01/18/2015 03/02/2016 Gastroparesis 01/02/2015 01/02/2015 Diabetes mellitus type 2, controlled, without co mplications 12/27/2014 01/20/2016 DIABETES MELLITUS ADULT ONSET 01/18/2007 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, [place] HYPERTENSION BENIGN 01/18/2007 08/11/2016 HYPERLIPIDEMIA 01/18/2007 08/11/2016 Hypothyroidism 01/18/2007 03/02/2016 EDEMA EXTREMITIES 01/18/2007 08/11/2016 Anemia 02/22/2019 Last Assessment & Plan: Currently stable documented as of this encounter (statuses as of 02/06/2022) [facility] History of Past illness Narrative* Problem Noted Date Resolved Date Hyperlipidemia 07/22/2015 08/11/2016 Gastroparesis 01/18/2015 03/02/2016 Gastroparesis 01/02/2015 01/02/2015 Diabetes mellitus type 2, controlled, without co mplications 12/27/2014 01/20/2016 DIABETES MELLITUS ADULT ONSET 01/18/2007 Overview: Dr. Erika Newtno, Criminal Justice Instructor, [place] HYPERTENSION BENIGN 01/18/2007 08/11/2016 HYPERLIPIDEMIA 01/18/2007 08/11/2016 Hypothyroidism 01/18/2007 03/02/2016 EDEMA EXTREMITIES 01/18/2007 08/11/2016 Anemia 02/22/2019 Last Assessment & Plan: Currently stable documented as of this encounter (statuses as of 02/06/2022) [facility] History of Past illness Narrative* Problem Noted Date Resolved Date Hyperlipidemia 07/22/2015 08/11/2016 Gastroparesis 01/18/2015 03/02/2016 Gastroparesis 01/02/2015 01/02/2015 Diabetes mellitus type 2, controlled, without co mplications 12/27/2014 01/20/2016 DIABETES MELLITUS ADULT ONSET 01/18/2007 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, [place] HYPERTENSION BENIGN 01/18/2007 08/11/2016 HYPERLIPIDEMIA 01/18/2007 08/11/2016 Hypothyroidism 01/18/2007 03/02/2016 EDEMA EXTREMITIES 01/18/2007 08/11/2016 Anemia 02/22/2019 Last Assessment & Plan: Currently stable documented as of this encounter (statuses as of 02/17/2022) [facility] History of Past illness Narrative* Problem Noted Date Resolved Date Hyperlipidemia 07/22/2015 08/11/2016 Gastroparesis 01/18/2015 03/02/2016 Gastroparesis 01/02/2015 01/02/2015 Diabetes mellitus type 2, controlled, without co mplications 12/27/2014 01/20/2016 DIABETES MELLITUS ADULT ONSET 01/18/2007 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, [place], [place] HYPERTENSION BENIGN 01/18/2007 08/11/2016 HYPERLIPIDEMIA 01/18/2007 08/11/2016 Hypothyroidism 01/18/2007 03/02/2016 EDEMA EXTREMITIES 01/18/2007 08/11/2016 Anemia 02/22/2019 Last Assessment & Plan: Currently stable documented as of this encounter (statuses as of 02/19/2022) [facility] History of Past illness Narrative* Problem Noted Date Resolved Date Hyperlipidemia 07/22/2015 08/11/2016 Gastroparesis 01/18/2015 03/02/2016 Gastroparesis 01/02/2015 01/02/2015 Diabetes mellitus type 2, controlled, without co mplications 12/27/2014 01/20/2016 DIABETES MELLITUS ADULT ONSET 01/18/2007 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, [place] HYPERTENSION BENIGN 01/18/2007 08/11/2016 HYPERLIPIDEMIA 01/18/2007 08/11/2016 Hypothyroidism 01/18/2007 03/02/2016 EDEMA EXTREMITIES 01/18/2007 08/11/2016 Anemia 02/22/2019 Last Assessment & Plan: Currently stable documented as of this encounter (statuses as of 02/27/2022) [facility] History of Past illness Narrative* Problem Noted Date Resolved Date Hyperlipidemia 07/22/2015 08/11/2016 Gastroparesis 01/18/2015 03/02/2016 Gastroparesis 01/02/2015 01/02/2015 Diabetes mellitus type 2, controlled, without co mplications 12/27/2014 01/20/2016 DIABETES MELLITUS ADULT ONSET 01/18/2007 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, [place] HYPERTENSION BENIGN 01/18/2007 08/11/2016 HYPERLIPIDEMIA 01/18/2007 08/11/2016 Hypothyroidism 01/18/2007 03/02/2016 EDEMA EXTREMITIES 01/18/2007 08/11/2016 Anemia 02/22/2019 Last Assessment & Plan: Currently stable documented as of this encounter (statuses as of 03/11/2022) [facility] History of Past illness Narrative* Problem Noted Date Resolved Date Hyperlipidemia 07/22/2015 08/11/2016 Gastroparesis 01/18/2015 03/02/2016 Gastroparesis 01/02/2015 01/02/2015 Diabetes mellitus type 2, controlled, without co mplications 12/27/2014 01/20/2016 DIABETES MELLITUS ADULT ONSET 01/18/2007 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, [place] HYPERTENSION BENIGN 01/18/2007 08/11/2016 HYPERLIPIDEMIA 01/18/2007 08/11/2016 Hypothyroidism 01/18/2007 03/02/2016 EDEMA EXTREMITIES 01/18/2007 08/11/2016 Anemia 02/22/2019 Last Assessment & Plan: Currently stable documented as of this encounter (statuses as of 04/06/2022) [facility] History of Past illness Narrative* Problem Noted Date Resolved Date Hyperlipidemia 07/22/2015 08/11/2016 Gastroparesis 01/18/2015 03/02/2016 Gastroparesis 01/02/2015 01/02/2015 Diabetes mellitus type 2, controlled, without co mplications 12/27/2014 01/20/2016 DIABETES MELLITUS ADULT ONSET 01/18/2007 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, [place], [place] HYPERTENSION BENIGN 01/18/2007 08/11/2016 HYPERLIPIDEMIA 01/18/2007 08/11/2016 Hypothyroidism 01/18/2007 03/02/2016 EDEMA EXTREMITIES 01/18/2007 08/11/2016 Anemia 02/22/2019 Last Assessment & Plan: Currently stable documented as of this encounter (statuses as of 04/09/2022) [facility] History of Past illness Narrative* Problem Noted Date Resolved Date Hyperlipidemia 07/22/2015 08/11/2016 Gastroparesis 01/18/2015 03/02/2016 Gastroparesis 01/02/2015 01/02/2015 Diabetes mellitus type 2, controlled, without co mplications 12/27/2014 01/20/2016 DIABETES MELLITUS ADULT ONSET 01/18/2007 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, [place] HYPERTENSION BENIGN 01/18/2007 08/11/2016 HYPERLIPIDEMIA 01/18/2007 08/11/2016 Hypothyroidism 01/18/2007 03/02/2016 EDEMA EXTREMITIES 01/18/2007 08/11/2016 Anemia 02/22/2019 Last Assessment & Plan: Currently stable documented as of this encounter (statuses as of 08/14/2022) [facility] History of Past illness Narrative* Problem Noted Date Resolved Date Hyperlipidemia 07/22/2015 08/11/2016 Gastroparesis 01/18/2015 03/02/2016 Gastroparesis 01/02/2015 01/02/2015 Diabetes mellitus type 2, controlled, without co mplications 12/27/2014 01/20/2016 DIABETES MELLITUS ADULT ONSET 01/18/2007 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, [place] HYPERTENSION BENIGN 01/18/2007 08/11/2016 HYPERLIPIDEMIA 01/18/2007 08/11/2016 Hypothyroidism 01/18/2007 03/02/2016 EDEMA EXTREMITIES 01/18/2007 08/11/2016 Anemia 02/22/2019 Last Assessment & Plan: Currently stable documented as of this encounter (statuses as of 08/17/2022) [facility] History of Past illness Narrative* Problem Noted Date Resolved Date Hyperlipidemia 07/22/2015 08/11/2016 Gastroparesis 01/18/2015 03/02/2016 Gastroparesis 01/02/2015 01/02/2015 Diabetes mellitus type 2, controlled, without co mplications 12/27/2014 01/20/2016 DIABETES MELLITUS ADULT ONSET 01/18/2007 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, [place] HYPERTENSION BENIGN 01/18/2007 08/11/2016 HYPERLIPIDEMIA 01/18/2007 08/11/2016 Hypothyroidism 01/18/2007 03/02/2016 EDEMA EXTREMITIES 01/18/2007 08/11/2016 Anemia 02/22/2019 Last Assessment & Plan: Currently stable documented as of this encounter (statuses as of 08/28/2022) [facility] History of Past illness Narrative* Problem Noted Date Resolved Date Hyperlipidemia 07/22/2015 08/11/2016 Gastroparesis 01/18/2015 03/02/2016 Gastroparesis 01/02/2015 01/02/2015 Diabetes mellitus type 2, controlled, without co mplications 12/27/2014 01/20/2016 DIABETES MELLITUS ADULT ONSET 01/18/2007 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, [place] HYPERTENSION BENIGN 01/18/2007 08/11/2016 HYPERLIPIDEMIA 01/18/2007 08/11/2016 Hypothyroidism 01/18/2007 03/02/2016 EDEMA EXTREMITIES 01/18/2007 08/11/2016 Anemia 02/22/2019 Last Assessment & Plan: Currently stable documented as of this encounter (statuses as of 09/21/2022) [facility] History of Past illness Narrative* Problem Noted Date Resolved Date Hyperlipidemia 07/22/2015 08/11/2016 Gastroparesis 01/18/2015 03/02/2016 Gastroparesis 01/02/2015 01/02/2015 Diabetes mellitus type 2, controlled, without co mplications 12/27/2014 01/20/2016 DIABETES MELLITUS ADULT ONSET 01/18/2007 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, [place] HYPERTENSION BENIGN 01/18/2007 08/11/2016 HYPERLIPIDEMIA 01/18/2007 08/11/2016 Hypothyroidism 01/18/2007 03/02/2016 EDEMA EXTREMITIES 01/18/2007 08/11/2016 Anemia 02/22/2019 Last Assessment & Plan: Currently stable documented as of this encounter (statuses as of 10/08/2022) [facility] History of Past illness Narrative* Problem Noted Date Resolved Date Hyperlipidemia 07/22/2015 08/11/2016 Gastroparesis 01/18/2015 03/02/2016 Gastroparesis 01/02/2015 01/02/2015 Diabetes mellitus type 2, controlled, without co mplications 12/27/2014 01/20/2016 DIABETES MELLITUS ADULT ONSET 01/18/2007 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, [place] HYPERTENSION BENIGN 01/18/2007 08/11/2016 HYPERLIPIDEMIA 01/18/2007 08/11/2016 Hypothyroidism 01/18/2007 03/02/2016 EDEMA EXTREMITIES 01/18/2007 08/11/2016 Anemia 02/22/2019 Last Assessment & Plan: Currently stable documented as of this encounter (statuses as of 11/10/2022) [facility] History of Past illness Narrative* Problem Noted Date Resolved Date Hyperlipidemia 07/22/2015 08/11/2016 Gastroparesis 01/18/2015 03/02/2016 Gastroparesis 01/02/2015 01/02/2015 Diabetes mellitus type 2, controlled, without co mplications 12/27/2014 01/20/2016 DIABETES MELLITUS ADULT ONSET 01/18/2007 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, [place] HYPERTENSION BENIGN 01/18/2007 08/11/2016 HYPERLIPIDEMIA 01/18/2007 08/11/2016 Hypothyroidism 01/18/2007 03/02/2016 EDEMA EXTREMITIES 01/18/2007 08/11/2016 Anemia 02/22/2019 Last Assessment & Plan: Currently stable documented as of this encounter (statuses as of 12/04/2022) [facility] History of Past illness Narrative* Problem Noted Date Resolved Date Hyperlipidemia 07/22/2015 08/11/2016 Gastroparesis 01/18/2015 03/02/2016 Gastroparesis 01/02/2015 01/02/2015 Diabetes mellitus type 2, controlled, without co mplications 12/27/2014 01/20/2016 DIABETES MELLITUS ADULT ONSET 01/18/2007 Overview: Dr. Erkia Newton, [employer] Justice Instructor, [place] HYPERTENSION BENIGN 01/18/2007 08/11/2016 HYPERLIPIDEMIA 01/18/2007 08/11/2016 Hypothyroidism 01/18/2007 03/02/2016 EDEMA EXTREMITIES 01/18/2007 08/11/2016 Anemia 02/22/2019 Last Assessment & Plan: Currently stable documented as of this encounter (statuses as of 12/22/2022) [facility] History of Past illness Narrative* Problem Noted Date Resolved Date Hyperlipidemia 07/22/2015 08/11/2016 Gastroparesis 01/18/2015 03/02/2016 Gastroparesis 01/02/2015 01/02/2015 Diabetes mellitus type 2, controlled, without co mplications 12/27/2014 01/20/2016 DIABETES MELLITUS ADULT ONSET 01/18/2007 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, [place] HYPERTENSION BENIGN 01/18/2007 08/11/2016 HYPERLIPIDEMIA 01/18/2007 08/11/2016 Hypothyroidism 01/18/2007 03/02/2016 EDEMA EXTREMITIES 01/18/2007 08/11/2016 Anemia 02/22/2019 Last Assessment & Plan: Currently stable documented as of this encounter (statuses as of 12/23/2022) [facility] History of Past illness Narrative* Problem Noted Date Diagnosed Date Resolved Date Hyperlipidemia 07/22/2015 08/11/2016 Gastroparesis 01/18/2015 03/02/2016 Gastroparesis 01/02/2015 01/02/2015 Diabetes mellitus type 2, co ntrolled, without complications 12/27/2014 01/20/2016 DIABETES MELLITUS ADULT ONSET 01/18/2007 04/28/2012 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, [place] HYPERTENSION BENIGN 01/18/2007 08/11/20 16 HYPERLIPIDEMIA 01/18/2007 08/11/2016 Hypothyroidism 01/18/2007 03/02/2016 EDEMA EXTREMITIES 01/18/2007 08/11/2016 Anemia 02/22/2019 Last Assessment & Plan: Currently stable documented as of this encounter (statuses as of 07/26/2023) [facility] of Past illness Narrative* Problem Noted Date Diagnosed Date Resolved Date Hyperlipidemia 07/22/2015 08/11/2016 Gastroparesis 01/18/2015 03/02/2016 Gastroparesis 01/02/2015 01/02/2015 Diabetes mellitus type 2, co ntrolled, without complications 12/27/2014 01/20/2016 DIABETES MELLITUS ADULT ONSET 01/18/2007 04/28/2012 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, [place] HYPERTENSION BENIGN 01/18/2007 08/11/20 16 HYPERLIPIDEMIA 01/18/2007 08/11/2016 Hypothyroidism 01/18/2007 03/02/2016 EDEMA EXTREMITIES 01/18/2007 08/11/2016 Anemia 02/22/2019 Last Assessment & Plan: Currently stable documented as of this encounter (statuses as of 08/03/2023) [facility] History of Past illness Narrative* Problem Noted Date Diagnosed Date Resolved Date Hyperlipidemia 07/22/2015 08/11/2016 Gastroparesis 01/18/2015 03/02/2016 Gastroparesis 01/02/2015 01/02/2015 Diabetes mellitus type 2, co ntrolled, without complications 12/27/2014 01/20/2016 DIABETES MELLITUS ADULT ONSET 01/18/2007 04/28/2012 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, [place] HYPERTENSION BENIGN 01/18/2007 08/11/20 16 HYPERLIPIDEMIA 01/18/2007 08/11/2016 Hypothyroidism 01/18/2007 03/02/2016 EDEMA EXTREMITIES 01/18/2007 08/11/2016 Anemia 02/22/2019 Last Assessment & Plan: Currently stable documented as of this encounter (statuses as of 08/06/2023) [facility] History of Past illness Narrative* Problem Noted Date Diagnosed Date Resolved Date Hyperlipidemia 07/22/2015 08/11/2016 Gastroparesis 01/18/2015 03/02/2016 Gastroparesis 01/02/2015 01/02/2015 Diabetes mellitus type 2, co ntrolled, without complications 12/27/2014 01/20/2016 DIABETES MELLITUS ADULT ONSET 01/18/2007 04/28/2012 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, [place] HYPERTENSION BENIGN 01/18/2007 08/11/20 16 HYPERLIPIDEMIA 01/18/2007 08/11/2016 Hypothyroidism 01/18/2007 03/02/2016 EDEMA EXTREMITIES 01/18/2007 08/11/2016 Anemia 02/22/2019 Last Assessment & Plan: Currently stable documented as of this encounter (statuses as of 08/19/2023) [facility] History of Past illness Narrative* Problem Noted Date Diagnosed Date Resolved Date Hyperlipidemia 07/22/2015 08/11/2016 Gastroparesis 01/18/2015 03/02/2016 Gastroparesis 01/02/2015 01/02/2015 Diabetes mellitus type 2, co ntrolled, without complications 12/27/2014 01/20/2016 DIABETES MELLITUS ADULT ONSET 01/18/2007 04/28/2012 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, [place] HYPERTENSION BENIGN 01/18/2007 08/11/20 16 HYPERLIPIDEMIA 01/18/2007 08/11/2016 Hypothyroidism 01/18/2007 03/02/2016 EDEMA EXTREMITIES 01/18/2007 08/11/2016 Anemia 02/22/2019 Last Assessment & Plan: Currently stable documented as of this encounter (statuses as of 11/05/2023) [facility] History of Past illness Narrative* Problem Noted Date Diagnosed Date Resolved Date Hyperlipidemia 07/22/2015 08/11/2016 Gastroparesis 01/18/2015 03/02/2016 Gastroparesis 01/02/2015 01/02/2015 Diabetes mellitus type 2, co ntrolled, without complications 12/27/2014 01/20/2016 DIABETES MELLITUS ADULT ONSET 01/18/2007 04/28/2012 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, [place] HYPERTENSION BENIGN 01/18/2007 08/11/20 16 HYPERLIPIDEMIA 01/18/2007 08/11/2016 Hypothyroidism 01/18/2007 03/02/2016 EDEMA EXTREMITIES 01/18/2007 08/11/2016 Anemia 02/22/2019 Last Assessment & Plan: Currently stable documented as of this encounter (statuses as of 11/17/2023) [facility] of Past illness Narrative* Problem Noted Date Diagnosed Date Resolved Date Hyperlipidemia 07/22/2015 08/11/2016 Gastroparesis 01/18/2015 03/02/2016 Gastroparesis 01/02/2015 01/02/2015 Diabetes mellitus type 2, co ntrolled, without complications 12/27/2014 01/20/2016 DIABETES MELLITUS ADULT ONSET 01/18/2007 04/28/2012 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, [place] HYPERTENSION BENIGN 01/18/2007 08/11/20 16 HYPERLIPIDEMIA 01/18/2007 08/11/2016 Hypothyroidism 01/18/2007 03/02/2016 EDEMA EXTREMITIES 01/18/2007 08/11/2016 Anemia 02/22/2019 Last Assessment & Plan: Currently stable documented as of this encounter (statuses as of 11/18/2023) [facility] of Past illness Narrative* Problem Noted Date Diagnosed Date Resolved Date Hyperlipidemia 07/22/2015 08/11/2016 Gastroparesis 01/18/2015 03/02/2016 Gastroparesis 01/02/2015 01/02/2015 Diabetes mellitus type 2, co ntrolled, without complications 12/27/2014 01/20/2016 DIABETES MELLITUS ADULT ONSET 01/18/2007 04/28/2012 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, [place] HYPERTENSION BENIGN 01/18/2007 08/11/20 16 HYPERLIPIDEMIA 01/18/2007 08/11/2016 Hypothyroidism 01/18/2007 03/02/2016 EDEMA EXTREMITIES 01/18/2007 08/11/2016 Anemia 02/22/2019 Last Assessment & Plan: Currently stable documented as of this encounter (statuses as of 12/24/2023) [facility] Deficiency of multiple nutrient [...] vitamin D deficiency documented in this encounter [employer] Work Phone: Evaluation note* Diagnosis Oropharyngeal dysphagia- [...] mention of hemorrhage documented in this encounter [employer] Work Phone: Evaluation note* Diagnosis Post-op pain- Primary Other acute postoperative pain Subcutaneous mass of right thumb documented in this encounter [employer] Work Phone: Evaluation noteNo assessment information available [facility] Work Phone: Evaluation note* Diagnosis REMIGIO (obstructive sleep apnea)- Primary Obstructive sleep apnea (adult) (pediatric) [facility] Diagnosis REMIGIO (obstructive sleep apnea)- Primary Obstructive sleep apnea (adult) (pediatric) [facility] Diagnosis Medication management Encounter for long-term (current) use of other medications [facility] Diagnosis REMIGIO (obstructive sleep apnea) Obstructive sleep apnea (adult) (pediatric) [facility] Diagnosis Obstructive sleep apnea (adult) (pediatric)- Primary Migraine without status migrainosus, not intractable, unspecified migraine type Insomnia, unspecified type Class 3 severe obesity with body mass index (BMI) of 40.0 to 44.9 in adult, unspecified obesity type, unspecified whether serious comorbidity present (HCC) [facility] Diagnosis Medication management Encounter for long-term (current) use of other medications Acquired hypothyroidism Unspecified hypothyroidism [facility] Diagnosis Encounter for screening mammogram for breast cancer [facility] Diagnosis Essential hypertension- Primary Unspecified essential hypertension Prediabetes Other abnormal glucose Mixed hyperlipidemia Acquired hypothyroidism Unspecified hypothyroidism Bipolar I disorder, most recent episode depressed (HCC) Bipolar I disorder, most recent episode (or current) depressed, unspecified [facility] Diagnosis Obstructive sleep apnea (adult) (pediatric)- Primary Insomnia, unspecified type Class 3 severe obesity with body mass index (BMI) of 40.0 to 44.9 in adult, unspecified obesity type, unspecified whether serious comorbidity present (HCC) documented in this encounter [facility] note* Diagnosis Primary hypertension- Primary Unspecified essential hypertension REMIGIO on CPAP Deficiency of multiple nutrient elements Other nutritional deficiency Class 2 severe obesity due to excess calories with serious comorbidity and body mass index (BMI) of 35.0 to 35.9 in adult ([facility]) High cholesterol Pure hypercholesterolemia documented in this encounter [facility] note* Diagnosis Essential hypertension- Primary Unspecified [...] unspecified Mixed hyperlipidemia documented in this encounter [facility] note* Diagnosis Obstructive sleep apnea syndrome- Primary Obstructive sleep apnea (adult) (pediatric) Insomnia, unspecified type Difficulty using biphasic positive airway pressure (BiPAP) machine documented in this encounter [facility] note* Diagnosis Primary hypertension- Primary Unspecified essential hypertension REMIGIO on CPAP Deficiency of multiple nutrient elements Other nutritional deficiency Hyperlipidemia, unspecified hyperlipidemia type Class 1 obesity due to excess calories with serious comorbidity and body mass index (BMI) of 33.0 to 33.9 in adult High vitamin D level Hypervitaminosis D documented in this encounter [facility] note* Diagnosis Encounter for screening mammogram for breast cancer documented in this encounter [facility] note* Diagnosis Acquired hypothyroidism Unspecified hypothyroidism [facility] Diagnosis Burning sensation of feet- Primary Disturbance of skin sensation documented in this encounter [facility] note* Diagnosis REMIGIO on CPAP Primary hypertension Unspecified essential hypertension Deficiency of multiple nutrient elements Other nutritional deficiency Hyperlipidemia, unspecified hyperlipidemia type Class 2 severe obesity due to excess calories with serious comorbidity and body mass index (BMI) of 36.0 to 36.9 in adult documented in this encounter [facility] note* Diagnosis Migraine without aura and without status migrainosus, not intractable Migraine without aura, without mention of intractable migraine without mention of status migrainosus documented in this encounter [facility] note* Diagnosis Migraine without aura and without status migrainosus, not intractable Migraine without aura, without mention of intractable migraine without mention of status migrainosus documented in this encounter [facility] note* Diagnosis Acquired hypothyroidism Unspecified hypothyroidism documented in this encounter [facility] note* Diagnosis Class 2 severe obesity with [...] Unspecified essential hypertension documented in this encounter [facility] note* Diagnosis Essential hypertension Unspecified essential hypertension Mixed hyperlipidemia documented in this encounter [facility] note* Diagnosis Class 2 obesity due to excess calories without serious comorbidity with body mass index (BMI) of 39.0 to 39.9 in adult- Primary documented in this encounter [facility] note* Diagnosis Class 2 obesity due to excess calories without serious comorbidity with body mass index (BMI) of 38.0 to 38.9 in adult- Primary documented in this encounter [facility] note* Diagnosis Neuropathy- Primary Mononeuritis of unspecified site documented in this encounter [facility] note* Diagnosis Class 2 obesity due to excess calories without serious comorbidity with body mass index (BMI) of 39.0 to 39.9 in adult- Primary documented in this encounter [facility] note* Diagnosis Headache(784.0)- Primary Headache DIABETES MELLITUS [...] dental involvement (HCC) [facility] Diagnosis Headache(784.0)- Primary Headache DIABETES MELLITUS [...] 39.9 in adult [facility] Diagnosis Headache(784.0)- Primary Headache DIABETES MELLITUS [...] of unspecified site documented in this encounter [facility] note* Diagnosis Headache(784.0)- Primary Headache DIABETES MELLITUS [...] hypertension Hypokalemia Hypopotassemia documented [facility]* Diagnosis Hypokalemia- Primary Hypopotassemia Elevated vitamin B12 level [facility] Diagnosis Encounter for postoperative care- Primary Primary hypertension Unspecified essential hypertension Hyperlipidemia, unspecified hyperlipidemia type Hypothyroidism, unspecified type REMIGIO (obstructive sleep apnea) Obstructive sleep apnea (adult) (pediatric) Class 2 obesity due to excess calories with body mass index (BMI) of 38.0 to 38.9 in adult, unspecified whether serious comorbidity present Deficiency of multiple nutrient elements Other nutritional deficiency [facility] Diagnosis Encounter for postoperative care- Primary GERD without esophagitis Esophageal reflux Deficiency of multiple nutrient elements Other nutritional deficiency REMIGIO (obstructive sleep apnea) Obstructive sleep apnea (adult) (pediatric) Hyperlipidemia, unspecified hyperlipidemia type Primary hypertension Unspecified essential hypertension Morbid obesity with BMI of 40.0-44.9, adult (HCC) documented in this encounter [facility] note* Diagnosis Encounter for other preprocedural examination- Primary Encounter for other preprocedural examination documented in this encounter [facility] note* Diagnosis Headache(784.0)- Primary Headache DIABETES MELLITUS [...] for breast cancer documented in this encounter [facility] note* Diagnosis Headache(784.0)- Primary Headache DIABETES MELLITUS [...] hypothyroidism Unspecified hypothyroidism documented in this encounter [facility] note* Diagnosis Headache(784.0)- Primary Headache DIABETES MELLITUS [...] for breast cancer documented in this encounter [facility] note* Diagnosis Headache(784.0)- Primary Headache DIABETES MELLITUS [...] Type 2 diabetes mellitus with unspecified complications ([facility])- Primary Class 2 obesity due to excess calories without serious comorbidity with body mass index (BMI) of 39.0 to 39.9 in adult Obstructive sleep apnea syndrome Obstructive sleep apnea (adult) (pediatric) Hyperlipidemia, unspecified hyperlipidemia type Essential hypertension Unspecified essential hypertension documented in this encounter [facility] note* Diagnosis Headache(784.0)- Primary Headache DIABETES MELLITUS [...] both feet- Primary [facility] Diagnosis Headache(784.0)- Primary Headache DIABETES MELLITUS [...] of both feet [facility] Diagnosis Headache(784.0)- Primary Headache DIABETES MELLITUS [...] apnea (adult) (pediatric) documented in this encounter [facility] note* Diagnosis Headache(784.0)- Primary Headache DIABETES MELLITUS [...] hematuria, site unspecified [facility]* Diagnosis Headache(784.0)- Primary Headache DIABETES MELLITUS [...] right lower quadrant documented in this encounter [facility] note* Diagnosis Headache(784.0)- Primary Headache DIABETES MELLITUS [...] of body structure documented in this encounter [facility] note* Diagnosis Headache(784.0)- Primary Headache DIABETES MELLITUS [...] of body structure documented in this encounter [facility] note* Diagnosis Headache(784.0)- Primary Headache DIABETES MELLITUS [...] of the cervix documented in this encounter [facility] note* Diagnosis Headache(784.0)- Primary Headache DIABETES MELLITUS [...] of status migrainosus documented in this encounter [facility] note* Diagnosis Headache(784.0)- Primary Headache DIABETES MELLITUS [...] of skin sensation documented in this encounter [facility] note* Diagnosis Headache(784.0)- Primary Headache DIABETES MELLITUS [...] hypothyroidism Unspecified hypothyroidism documented in this encounter [facility] note* Diagnosis Headache(784.0)- Primary Headache DIABETES MELLITUS [...] Hematuria, unspecified type documented in this encounter [facility] note* Diagnosis Headache(784.0)- Primary Headache DIABETES MELLITUS [...] (pediatric) Hypokalemia Hypopotassemia documented [facility]* Diagnosis Headache(784.0)- Primary Headache DIABETES MELLITUS [...] Postmenopausal atrophic vaginitis documented in this encounter [facility] note* Diagnosis Headache(784.0)- Primary Headache DIABETES MELLITUS [...] of unspecified site documented in this encounter [facility] note* Diagnosis Headache(784.0)- Primary Headache DIABETES MELLITUS [...] Type 2 diabetes mellitus with unspecified complications ([facility]) documented in this encounter [facility] note* Diagnosis Headache(784.0)- Primary Headache DIABETES MELLITUS [...] Preoperative examination, unspecified documented in this encounter [facility] note* Diagnosis Headache(784.0)- Primary Headache DIABETES MELLITUS [...] leiomyoma, unspecified location documented in this encounter [facility] note* Diagnosis Headache(784.0)- Primary Headache DIABETES MELLITUS [...] Microscopic hematuria- Primary documented in this encounter [facility] note* Diagnosis Headache(784.0)- Primary Headache DIABETES MELLITUS [...] of other medications documented in this encounter [facility] note* Diagnosis Headache(784.0)- Primary Headache DIABETES MELLITUS [...] Extremity edema Edema documented in this encounter [facility] note* Diagnosis Headache(784.0)- Primary Headache DIABETES MELLITUS [...] Postmenopausal atrophic vaginitis documented in this encounter [facility] note* Diagnosis Headache(784.0)- Primary Headache DIABETES MELLITUS [...] single bacterial disease documented in this encounter [facility] Discharge instructions* Instructions* Joi Srivastava PA - [...] BI 2-VIEW BREAST INC Ana Brown MD [address] [place] [address] [place] [address] Referral ID Status Reason Start Date Expiration Date Visits Requested Visits Authorized [id number] Pending Review Auto-Generat ed Referral 08/13/2022 09/12/2023 1 1 [facility] for referral (narrative)* Diagnostic Procedure Only (Routine) - Pending Review Specialty Diagnoses / Procedures Referred By Raquel quesada Referred To Contact [facility] Diagnoses Encounter for screening mammogram for breast cancer Procedures ADALBERTO SCREENING SCREENING MAMMOGRAPHY BI 2-VIEW BREAST INC Ana Brown MD [address] [place] [address] [facility] [address] [place] [address] Referral ID Status Reason Start Date Expiration Date Visits Requested Visits Authorized [id number] Pending Review Auto-Generat ed Referral 07/21/2023 08/19/2024 [address] [facility] for referral (narrative)* Diagnostic Procedure Only (Routine) - New Request Specialty Diagnoses / Procedures Referred By Raquel quesada Referred To Contact [facility] Diagnoses Encounter for screening mammogram for breast cancer Procedures ADALBERTO SCREENING SCREENING MAMMOGRAPHY BI 2-VIEW BREAST INC CAD Ana Bolaños MD [address] [place] [address] [facility] [address] [place] [address] Referral ID Status Reason Start Date Expiration Date Visits Requested Visits Authorized [id number] New Request Auto-Generat ed Referral 05/09/2024 06/08/2025 1 1 * Diagnostic Procedure Only (Routine) - Authorized Specialty Diagnoses / Procedures Referred By Raquel quesada Referred To Contact [facility] Diagnoses Encounter for screening mammogram for breast cancer Procedures ADALBERTO SCREENING W CHUCK SCREENING DIGITAL BREAST TOMOSYNTHESIS BI SCREENING MAMMOGRAPHY BI 2-VIEW BREAST INC CAD Ana Bolaños MD [address] [place] [address] [facility] [address] [place] [address] Referral ID Status Reason Start Date Expiration Date Visits Requested Visits Authorized [id number] Authorized Auto-Generat ed Referral 05/09/2024 06/08/2025 [address] [facility] for referral (narrative)* Diagnostic Procedure Only (Routine) - New Request Specialty Diagnoses / Procedures Referred By Raquel quesaad Referred To Contact [facility] Diagnoses Encounter for gynecological examination (general) (routine) without abnormal findings Encounter for screening mammogram for breast cancer Procedures ADALBERTO SCREENING W CHUCK SCREENING DIGITAL BREAST TOMOSYNTHESIS BI SCREENING MAMMOGRAPHY BI 2-VIEW BREAST INC CAD Katarina Guillory, LIZETH.LEAD ENGINEER [address] [place] [address] [facility] [address] [place] [address] Referral ID Status Reason Start Date Expiration Date Visits Requested Visits Authorized [id number] New Request Auto-Generat ed Referral 10/05/2025 [address] [facility] for visit Narrative* Diagnostic Procedure Only (Routine) - Closed Specialty Diagnoses / Procedures Referred By Contac t Referred To Contact [facility] Diagnoses Encounter for screening mammogram for breast cancer Procedures ADALBERTO SCREENING W CHUCK SCREENING DIGITAL BREAST TOMOSYNTHESIS BI SCREENING MAMMOGRAPHY BI 2-VIEW BREAST INC Ana Brown MD [address] [place] [address] Phone: tel: fax: [facility] [address] [place] [address] Referral ID Status Reason Start Date Expiration Date V isits Requested Visits Authorized [id number] Closed Auto-Generate d Referral 05/09/2024 06/08/2025 [address] [facility] for visit Narrative* Diagnostic Procedure Only (Routine) - Closed Specialty Diagnoses / Procedures Referred By Contac t Referred To Contact XR IMAGING Diagnoses Paresthesia of both feet Procedures XR LUMBAR GENERAL 3V AP/LAT/L5-S1 RADEX SPINE LUMBOSACRAL 2/3 VIEWS Lucille Brandt, KENNEDI [address] [facility] [address] [place] [address] Phone: tel: fax: XR IMAGING [facility] Referral ID Status Reason Start Date Expiration Date V isits Requested Visits Authorized [id number] Closed Auto-Generate d Referral 01/22/2025 02/21/2026 [address] [facility] for visit Narrative* MRI/CT (Urgent) - Closed Specialty Diagnoses / Procedures Referred By Contac t Referred To Contact CT IMAGING Diagnoses Right lower quadrant abdominal pain Procedures CT ABD/PEL W IVCON CT ABD & PELVIS W/CONTRAST Fior Alvarez APRN.CNP [address] [place] [address] Phone: tel: fax: [place] [address] Referral ID Status Reason Start Date Expiration Date V isits Requested Visits Authorized [id number] Closed Auto-Generat ed Referral Patient Cleared - Admin/Chairm an/Director advise to proceed or did not respond 01/26/2025 09/12/2025 1 [facility] (Urgent) - Closed Specialty Diagnoses / Procedures Referred By Raquel t Referred To Contact CT IMAGING Diagnoses Right lower quadrant abdominal pain Procedures CT ABD/PEL W IVCON CT ABD & PELVIS W/CONTRAST Fior Alvarez, FORENSIC SPECIALIST.LEAD ENGINEER [address] [place] [place] [address] Phone: tel: fax: [place] [address] Referral ID Status Reason Start Date Expiration Date V isits Requested Visits Authorized [id number] Closed Auto-Generat ed Referral Patient Cleared - Admin/Chairm an/Director advise to proceed or did not respond 01/26/2025 09/12/2025 1 1 [facility] Advance Directives No Advanced Directives Records FoundDocuments on File Type Date Recorded Patient Stable Hand Expl anation ACP-Advance Directive ACP-Power of Prosecuting Attorney Latest Code Status on File Code Status Date Activated Date Inactivated Comments Full Code 10/13/2019 7:10 AM 10/13/2019 12:13 PM Latest Code Status on File Code Status Date Activated Date Inactivated Comments Full Code 11/18/2021 10:58 AM Full Code 10/13/2019 7:10 AM 10/13/2019 12:13 PM Documents on File Type Date Recorded Patient Stable Hand Expl anation Advance Directives and Living Will Power of Prosecuting Attorney Latest Code Status on File Code Status Date Activated Date Inactivated Comments Full Code 10/13/2019 7:10 AM Advance Directive Response Recorded Date/ Time Advance Directives No December 06, 2 015 8:14am Living Will No 2014 8:14am Power of Prosecuting Attorney No December 06 8:14am Documents on File Type Date Recorded Patient Stable Hand Expl anation Advance Directive(s) 03/18/2016 12:26 PM Latest Code Status on File Code Status Date Activated Date Inactivated Comments Full Code 11/18/2021 10:58 AM 11/18/2021 5:45 PM Advance Directive Response Recorded Date/ Time Advance Directives No December 06, 2 015 7:14am Living Will No 2014 7:14am Power of Prosecuting Attorney No December 06 7:14am Latest Code Status [...] 39.0 to 39.9 in adult Jacquie Clarke, FORENSIC SPECIALIST.LEAD ENGINEER [address] [place] [address] Referral ID Status Reason Start Date Expiration Date V isits Requested Visits Authorized [id number] Pending Review 1 1 Specialty Diagnoses / Procedures Referred By Contac t Referred To Contact Diagnoses Class 2 obesity due to excess calories without serious comorbidity with body mass index (BMI) of 39.0 to 39.9 in adult Fior Alvarez FORENSIC SPECIALIST.LEAD ENGINEER [address] [place] [address] Referral ID Status Reason Start Date Expiration Date V isits Requested Visits Authorized [id number] Authorized 1 1 Specialty Diagnoses / Procedures Referred By Contac t Referred To Contact Diagnoses Class 2 obesity due to excess calories without serious comorbidity with body mass index (BMI) of 39.0 to 39.9 in adult Obstructive sleep apnea syndrome Hyperlipidemia, unspecified hyperlipidemia type Essential hypertension Ana Bolaños MD [address] [place] [address] Referral ID Status Reason Start Date Expiration Date Visits Re quested Visits Authorized [id number] Closed 1 1 Additional Source Comments Care Teams (unrecognized sec tion and content) Pulp And Paper Tester Relationship Specialty Start Date End Date Ana Bolaños MD [address] [place] [address] PCP - General Internal Medicine 08/24/19 Pulp And Paper Tester Relationship Specialty Start Date End Date Ana Bolaños MD [address] [place] [address] PCP - General Internal Medicine 08/24/19 Pulp And Paper Tester Relationship Specialty Start Date End Date Ana Bolaños MD [address] [place] [address] PCP - General Internal Medicine 08/24/19 Pulp And Paper Tester Relationship Specialty Start Date End Date Ana Bolaños MD [address] [place] [address] PCP - General Internal Medicine 08/24/19 Pulp And Paper Tester Relationship Specialty Start Date End Date Ana Bolaños MD [address] [place] [address] PCP - General Internal Medicine 08/24/19 Pulp And Paper Tester Relationship Specialty Start Date End Date Ana Bolaños MD [address] [place] [address] PCP - General Internal Medicine 06/25/16 Pulp And Paper Tester Relationship Specialty Start Date End Date Ana Bolaños MD [address] [place] [address] PCP - General Internal Medicine 06/25/16 Pulp And Paper Tester Relationship Specialty Start Date End Date Ana Bolaños MD [address] [place] [address] PCP - General Internal Medicine 08/24/19 Pulp And Paper Tester Relationship Specialty Start Date End Date Ana Bolaños MD [address] [place] [address] PCP - General Internal Medicine 06/25/16 Pulp And Paper Tester Relationship Specialty Start Date End Date Ana Bolaños MD [address] [place] [place] [address] PCP - General Internal Medicine 08/24/19 Pulp And Paper Tester Relationship Specialty Start Date End Date Ana Bolaños MD [address] [facility] [place] [address] PCP - General Internal Medicine 06/25/16 Pulp And Paper Tester Relationship Specialty Start Date End Date Ana Bolaños MD [address] [facility] [place] [address] PCP - General Internal Medicine 06/25/16 Pulp And Paper Tester Relationship Specialty Start Date End Date Ana Bolaños MD [address] [facility] [place] [address] PCP - General Internal Medicine 06/25/16 Pulp And Paper Tester Relationship Specialty Start Date End Date Ana Bolaños MD [address] [facility] [place] [address] PCP - General Internal Medicine 06/25/16 Pulp And Paper Tester Relationship Specialty Start Date End Date Ana Bolaños MD [address] [facility] [place] [address] PCP - General Internal Medicine 08/24/19 Pulp And Paper Tester Relationship Specialty Start Date End Date Ana Bolaños MD [address] [facility] [place] [address] PCP - General Internal Medicine 06/25/16 Pulp And Paper Tester Relationship Specialty Start Date End Date Ana Bolaños MD [address] [facility] [place] [address] PCP - General Internal Medicine 06/25/16 Pulp And Paper Tester Relationship Specialty Start Date End Date Ana Bolaños MD [address] [place] [address] PCP - General Internal Medicine 06/25/16 Team [...] Provider Active PHILL MOJICA Attending Provider Active Pulp And Paper Tester Relationship Specialty Start Date End Date Ana Bolaños MD [address] [place] [address] PCP - General Internal Medicine 06/25/16 Team Status: Inactive Member Role Status Dates Dr. Ana Bolaños MD Primary Care Provider Active EDILSON PENN MD Attending Provider, Referring Prov ider Active Dr. Gavin Moctezuma MD Other Provider Active Pulp And Paper Tester Relationship Specialty Start Date End Date Ana Bolañso MD [address] [place] [address] PCP - General 08/24/19 Gavin Moctezuma MD [address] [place] [address] Surgeon Bariatric Surgery 08/05/22 Garret Burt PA [address] [place], [place] [id number] Physician Metal Control Worker Bariatrics 08/05/22 Pulp And Paper Tester Relationship Specialty Start Date End Date Ana Bolaños MD [address] [place] [address] PCP - General Internal Medicine 06/25/16 Pulp And Paper Tester Relationship Specialty Start Date End Date Ana Bolaños MD [address] [place] [address] PCP - General Internal Medicine 06/25/16 Pulp And Paper Tester Relationship Specialty Start Date End Date Ana Bolaños MD [address] [place] [address] PCP - General 08/24/19 Gavin Moctezuma MD [address] [place] [address] Surgeon Bariatric Surgery 08/05/22 Garret Burt PA [address] [place] [address] Physician Metal Control Worker Bariatrics 08/05/22 Pulp And Paper Tester Relationship Specialty Start Date End Date Ana Bolaños MD [address] [place] [address] PCP - General 08/24/19 Gavin Moctezuma MD [address] [place] [address] Surgeon Bariatric Surgery 08/05/22 Garret Burt PA [address] [place] [address] Physician Metal Control Worker Bariatrics 08/05/22 Pulp And Paper Tester Relationship Specialty Start Date End Date Ana Bolaños MD [address] [place] [address] PCP - General Internal Medicine 06/25/16 Pulp And Paper Tester Relationship Specialty Start Date End Date Ana Bolaños MD [address] [place] [address] PCP - General Internal Medicine 06/25/16 Pulp And Paper Tester Relationship Specialty Start Date End Date Ana Bolaños MD [address] [place] [address] PCP - General Internal Medicine 06/25/16 Pulp And Paper Tester Relationship Specialty Start Date End Date Ana Bolaños MD [address] [place] [address] PCP - General Internal Medicine 06/25/16 Pulp And Paper Tester Relationship Specialty Start Date End Date Ana Bolaños MD [address] [place], [place] [address] [phone] PCP - General 08/24/19 Gavin Moctezuma MD [address] [place] [address] [address] [place], [place] [id number] Surgeon Bariatric Surgery 08/05/22 Garret Burt PA [address] [place] [address] [address] [place] [address] Physician Metal Control Worker Bariatrics 08/05/22 Pulp And Paper Tester Relationship Specialty Start Date End Date Ana Bolaños MD [address] [place] [address] PCP - General Internal Medicine 06/25/16 Pulp And Paper Tester Relationship Specialty Start Date End Date Ana Bolaños MD [address] [place] [address] PCP - General Internal Medicine 06/25/16 Pulp And Paper Tester Relationship Specialty Start Date End Date Ana Bolaños MD [address] [place] [address] PCP - General Internal Medicine 06/25/16 Pulp And Paper Tester Relationship Specialty Start Date End Date Ana Bolaños MD [address] [place] [address] PCP - General Internal Medicine 06/25/16 Pulp And Paper Tester Relationship Specialty Start Date End Date Ana Bolaños MD [address] [place] [address] PCP - General Internal Medicine 06/25/16 Pulp And Paper Tester Relationship Specialty Start Date End Date Ana Bolaños MD [address] [place] [address] PCP - General Internal Medicine 06/25/16 Pulp And Paper Tester Relationship Specialty Start Date End Date Ana Bolaños MD [address] [place] [address] PCP - General Internal Medicine 06/25/16 Pulp And Paper Tester Relationship Specialty Start Date End Date Ana Bolaños MD [address] [place] [address] PCP - General Internal Medicine 06/25/16 Pulp And Paper Tester Relationship Specialty Start Date End Date Ana Bolaños MD [address] [place] [address] PCP - General Internal Medicine 06/25/16 Pulp And Paper Tester Relationship Specialty Start Date End Date Ana Bolaños MD [address] [place] [address] PCP - General Internal Medicine 06/25/16 Pulp And Paper Tester Relationship Specialty Start Date End Date Ana Bolaños MD [address] [place] [address] PCP - General Internal Medicine 06/25/16 Pulp And Paper Tester Relationship Specialty Start Date End Date Ana Bolaños MD [address] [place] [address] PCP - General Internal Medicine 06/25/16 Pulp And Paper Tester Relationship Specialty Start Date End Date Ana Bolaños MD [address] [place] [address] PCP - General Internal Medicine 06/25/16 Pulp And Paper Tester Relationship Specialty Start Date End Date Ana Bolaños MD [address] [place] [address] PCP - General Internal Medicine 06/25/16 Pulp And Paper Tester Relationship Specialty Start Date End Date Ana Bolaños MD [address] [place] [address] PCP - General Internal Medicine 06/25/16 Pulp And Paper Tester Relationship Specialty Start Date End Date Ana Bolaños MD [address] [place] [address] PCP - General 08/24/19 Gavin Moctezuma MD [address] [place] [address] Surgeon Bariatric Surgery 08/05/22 Garret Burt PA [address] [place] [address] Physician Metal Control Worker Bariatrics 08/05/22 Pulp And Paper Tester Relationship Specialty Start Date End Date Ana Bolaños MD [address] [place] [address] PCP - General 08/24/19 Gavin Moctezuma MD [address] [place] [address] Surgeon Bariatric Surgery 08/05/22 Garret Burt PA [address] [place] [address] Physician Metal Control Worker Bariatrics 08/05/22 Pulp And Paper Tester Relationship Specialty Start Date End Date Ana Bolaños MD [address] [place] [address] PCP - General 08/24/19 Gavin Moctezuma MD [address] [place] [address] Surgeon Bariatric Surgery 08/05/22 Garret Burt PA [address] [place] [address] Physician Metal Control Worker Bariatrics 08/05/22 Pulp And Paper Tester Relationship Specialty Start Date End Date Ana Bolaños MD [address] [place] [address] PCP - General Internal Medicine 06/25/16 Edilson Lu PA-C [address] [place] [address] [facility] 08/20/24 Fior Alvarez APRN.CNP [address] [place] [address] [facility] 08/20/24 Angelique Bradford PA-C [address] [place] [address] [facility] 08/20/24 Pulp And Paper Tester Relationship Specialty Start Date End Date Ana Bolaños MD [address] [place] [address] PCP - General Internal Medicine 06/25/16 Edilson Lu PA-C [address] [place] [address] [facility] 08/20/24 Fior Alvarez APRN.LEAD ENGINEER [address] [place] [address] [facility] 08/20/24 Angelique Bradford PA-C [address] [place] [address] [facility] 08/20/24 Pulp And Paper Tester Relationship Specialty Start Date End Date Ana Bolaños MD [address] [place] [address] PCP - General Internal Medicine 06/25/16 Edilson Lu PA-C [address] [place] [address] [facility] 08/20/24 Fior Alvarez APRN.LEAD ENGINEER [address] [place] [address] [facility] 08/20/24 Angelique Bradford PA-C [address] [place] [address] [facility] 08/20/24 Pulp And Paper Tester Relationship Specialty Start Date End Date Ana Bolaños MD [address] [place] [address] PCP - General Internal Medicine 06/25/16 Edilson Lu PA-C [address] [place] [address] [facility] 08/20/24 Fior Alvarez APRN.LEAD ENGINEER [address] [place] [address] [facility] 08/20/24 Angelique Bradford PA-C [address] [place] [address] [facility] 08/20/24 Pulp And Paper Tester Relationship Specialty Start Date End Date Ana Bolaños MD [address] [place] [address] PCP - General Internal Medicine 06/25/16 Edilson Lu PA-C [address] [place] [address] [facility] 08/20/24 Fior Alvarez, LIZETH.LEAD ENGINEER [address] [place] [address] [facility] 08/20/24 Angelique Bradford PA-C [address] [place] [address] [facility] 08/20/24 Pulp And Paper Tester Relationship Specialty Start Date End Date Ana Bolaños MD [address] [place] [address] PCP - General Internal Medicine 06/25/16 Edilson Lu PA-C [address] [place] [address] [facility] 08/20/24 Fior Alvarez APRN.LEAD ENGINEER [address] [place] [address] [facility] 08/20/24 Angelique Bradford PA-C [address] [place] [address] [facility] 08/20/24 Pulp And Paper Tester Relationship Specialty Start Date End Date Ana Bolaños MD [address] [place] [address] PCP - General Internal Medicine 06/25/16 Fior Alvarez APRN.LEAD ENGINEER [address] [place] [address] [facility] 08/20/24 Pulp And Paper Tester Relationship Specialty Start Date End Date Ana Bolaños MD [address] [place] [address] PCP - General Internal Medicine 06/25/16 Edilson Lu PA-C [address] [place] [address] [facility] 08/20/24 12/03/24 Fior Alvarez APRN.LEAD ENGINEER [address] [place] [address] [facility] 08/20/24 Angelique Bradford PA-C [address] [place] [address] [facility] 08/20/24 12/03/24 Pulp And Paper Tester Relationship Specialty Start Date End Date Ana Bolaños MD [address] [place] [address] PCP - General Internal Medicine 06/25/16 Fior Alvarez APRN.LEAD ENGINEER [address] [facility] [place] [address] [facility] 08/20/24 Pulp And Paper Tester Relationship Specialty Start Date End Date Ana Bolaños MD [address] [place] [address] PCP - General Internal Medicine 06/25/16 Fior Alvarez APRN.LEAD ENGINEER [address] [facility] [place] [address] [facility] 08/20/24 Pulp And Paper Tester Relationship Specialty Start Date End Date Ana Bolaños MD [address] [place] [address] PCP - General Internal Medicine 06/25/16 Fior Alvarez, FORENSIC SPECIALIST.LEAD ENGINEER [address] [facility] [place] [address] [facility] 08/20/24 Pulp And Paper Tester Relationship Specialty Start Date End Date Ana Bolaños MD [address] [place] [address] PCP - General Internal Medicine 06/25/16 Fior Alvarez, FORENSIC SPECIALIST.LEAD ENGINEER [address] [place] [address] [facility] 08/20/24 Pulp And Paper Tester Relationship Specialty Start Date End Date Ana Bolaños MD [address] [place] [address] PCP - General Internal Medicine 06/25/16 Fior Alvarez FORENSIC SPECIALIST.LEAD ENGINEER [address] [place] [address] [facility] 08/20/24 Pulp And Paper Tester Relationship Specialty Start Date End Date Ana Bolaños MD [address] [place] [address] PCP - General Internal Medicine 06/25/16 Fior Alvarez, FORENSIC SPECIALIST.LEAD ENGINEER [address] [place] [address] [facility] 08/20/24 Pulp And Paper Tester Relationship Specialty Start Date End Date Ana Bolaños MD [address] [place] [address] PCP - General Internal Medicine 06/25/16 Fior Alvarez, FORENSIC SPECIALIST.LEAD ENGINEER [address] [place] [address] [facility] 08/20/24 Pulp And Paper Tester Relationship Specialty Start Date End Date Ana Bolaños MD [address] [place] [address] PCP - General Internal Medicine 06/25/16 Fior Alvarez APRN.LEAD ENGINEER [address] [place] [address] [facility] 08/20/24 Pulp And Paper Tester Relationship Specialty Start Date End Date Ana Bolaños MD [address] [place] [address] PCP - General Internal Medicine 06/25/16 Fior Alvarez APRN.LEAD ENGINEER [address] [facility] [place] [address] [facility] 08/20/24 Pulp And Paper Tester Relationship Specialty Start Date End Date Ana Bolaños MD [address] [facility] [place] [address] PCP - General Internal Medicine 06/25/16 Fior Alvarez APRN.LEAD ENGINEER [address] [facility] [place] [address] [facility] 08/20/24 Pulp And Paper Tester Relationship Specialty Start Date End Date Ana Bolaños MD [address] [place] [address] PCP - General Internal Medicine 06/25/16 Fior Alvarez APRN.LEAD ENGINEER [address] [place] [address] [facility] 08/20/24 Pulp And Paper Tester Relationship Specialty Start Date End Date Ana Bolaños MD [address] [place] [address] PCP - General Internal Medicine 06/25/16 Fior Alvarez APRN.LEAD ENGINEER [address] [place] [address] [facility] 08/20/24 Pulp And Paper Tester Relationship Specialty Start Date End Date Ana Bolaños MD [address] [place] [address] PCP - General Internal Medicine 06/25/16 Fior Alvarez APRN.LEAD ENGINEER [address] [place] [address] [facility] 08/20/24 Pulp And Paper Tester Relationship Specialty Start Date End Date Ana Bolaños MD [address] [place] [address] PCP - General Internal Medicine 06/25/16 Fior Alvarez, FORENSIC SPECIALIST.LEAD ENGINEER [address] [place] [address] [facility] 08/20/24 Pulp And Paper Tester Relationship Specialty Start Date End Date Ana Bolaños MD [address] [place] [address] PCP - General Internal Medicine 06/25/16 Fior Alvarez FORENSIC SPECIALIST.LEAD ENGINEER [address] [place] [address] [facility] 08/20/24 Pulp And Paper Tester Relationship Specialty Start Date End Date Ana Bolaños MD [address] [place] [address] PCP - General Internal Medicine 06/25/16 Fior Alvarez FORENSIC SPECIALIST.LEAD ENGINEER [address] [place] [address] [facility] 08/20/24 Pulp And Paper Tester Relationship Specialty Start Date End Date Ana Bolaños MD [address] [place] [address] PCP - General Internal Medicine 06/25/16 Fior Alvarez APRN.LEAD ENGINEER [address] [place] [address] [facility] 08/20/24 Pulp And Paper Tester Relationship Specialty Start Date End Date Ana Bolaños MD [address] [place] [address] PCP - General Internal Medicine 06/25/16 Fior Alvarez, FORENSIC SPECIALIST.LEAD ENGINEER [address] [place] [address] [facility] 08/20/24 Pulp And Paper Tester Relationship Specialty Start Date End Date Ana Bolaños MD [address] [place] [address] PCP - General Internal Medicine 06/25/16 Fior Alvarez, FORENSIC SPECIALIST.LEAD ENGINEER [address] [place] [address] [facility] 08/20/24 Pulp And Paper Tester Relationship Specialty Start Date End Date Ana Bolaños MD [address] [place] [address] PCP - General Internal Medicine 06/25/16 Fior Alvarez FORENSIC SPECIALIST.LEAD ENGINEER [address] [place] [address] [facility] 08/20/24 Pulp And Paper Tester Relationship Specialty Start Date End Date Ana Bolaños MD [address] [facility] [place] [address] PCP - General Internal Medicine 06/25/16 Fior Alvarez APRN.LEAD ENGINEER [address] [facility] [place] [address] [facility] 08/20/24 Pulp And Paper Tester Relationship Specialty Start Date End Date Ana Bolaños MD [address] [facility] [place] [address] PCP - General Internal Medicine 06/25/16 Fior Alvarez APRN.LEAD ENGINEER [address] [facility] [place] [address] [facility] 08/20/24 Pulp And Paper Tester Relationship Specialty Start Date End Date Ana Bolaños MD [address] [place] [address] PCP - General Internal Medicine 06/25/16 Fior Alvarez APRN.LEAD ENGINEER [address] [facility] [place] [address] [facility] 08/20/24 Pulp And Paper Tester Relationship Specialty Start Date End Date Ana Bolaños MD [address] [place] [address] PCP - General Internal Medicine 06/25/16 Fior Alvarez APRN.LEAD ENGINEER [address] [place] [address] [facility] 08/20/24 Pulp And Paper Tester Relationship Specialty Start Date End Date Ana Bolaños MD [address] [facility] [place] [address] PCP - General Internal Medicine 06/25/16 Fior Alvarez APRN.LEAD ENGINEER [address] [place], [place] [address] [facility] 08/20/24 Pulp And Paper Tester Relationship Specialty Start Date End Date Ana Bolaños MD [address] [place], [place] [address] PCP - General Internal Medicine 06/25/16 Fior Alvarez APRN.LEAD ENGINEER [address] [place], [place] [address] [facility] 08/20/24 Pulp And Paper Tester Relationship Specialty Start Date End Date Ana Bolaños MD [address] [place], [place] [address] PCP - General Internal Medicine 06/25/16 Fior Alvarez APRN.LEAD ENGINEER [address] [place] [address] [facility] 08/20/24 Ordered Prescriptions (unrec ognized [...] mL IVPB (premix) (COMPLETED) 2,000 mg, IntraVENous, PHD INTERN TO O.R., 1 dose, On Wed11/18/21 at 1115, Administer within 1 hour prior to incision. Repeat in 3-4 hours after initial dose if still intra-op., Pre-op (day of surgery) 1310 (New Bag - Prov ider: Rubina Key RN)1340 (Stopped - Provider: Rubina Key RN) dexameth sod kdfs-hxuxu-sith (TAP) syringe SOSY 60 mL 60 mL, [...] section and content) DATE CREATED AUTHOR 11/20/2021 [employer] DATE CREATED AUTHOR AUTHOR'S ORGANIZ ATION 04/05/2022 [employer] DATE CREATED AUTHOR AUTHOR'S ORGANIZ ATION 09/09/2023 [employer] [facility] DATE CREATED AUTHOR AUTHOR'S ORGANIZ ATION 01/27/2025 [facility] DATE CREATED AUTHOR AUTHOR'S ORGANIZ ATION 06/30/2025 [facility] DATE CREATED AUTHOR AUTHOR'S ORGANIZ ATION 07/10/2025 [facility] Goals (unrecognized section and content) Goals may [...] or prosecute any alcohol or drug abuse patient.[facility] Hospital[facility] the event this information is protected by the Federal Confidentiality of Alcohol and Drug Abuse Patient Records regulations: The Federal rules restrict any use of the information to criminally investigate or prosecute any alcohol or drug abuse patient.[facility] HospitalIn the event this information is protected by the Federal Confidentiality of Alcohol and Drug Abuse Patient Records regulations: The Federal rules restrict any use of the information to criminally investigate or prosecute any alcohol or drug abuse patient.[facility] HospitalIn the event this information is protected by the Federal Confidentiality of Alcohol and Drug Abuse Patient Records regulations: The Federal rules restrict any use of the information to criminally investigate or prosecute any alcohol or drug abuse patient.[facility] HospitalIn the event this information is protected by the Federal Confidentiality of Alcohol and Drug Abuse Patient Records regulations: The Federal rules restrict any use of the information to criminally investigate or prosecute any alcohol or drug abuse patient.[facility] HospitalIn the event this information is protected by the Federal Confidentiality of Alcohol and Drug Abuse Patient Records regulations: The Federal rules restrict any use of the information to criminally investigate or prosecute any alcohol or drug abuse patient.[facility] HospitalIn the event this information is protected by the Federal Confidentiality of Alcohol and Drug Abuse Patient Records regulations: The Federal rules restrict any use of the information to criminally investigate or prosecute any alcohol or drug abuse patient.[facility] HospitalIn the event this information is protected by the Federal Confidentiality of Alcohol and Drug Abuse Patient Records regulations: The Federal rules restrict any use of the information to criminally investigate or prosecute any alcohol or drug abuse patient.[facility] HospitalIn the event this information is protected by the Federal Confidentiality of Alcohol and Drug Abuse Patient Records regulations: The Federal rules restrict any use of the information to criminally investigate or prosecute any alcohol or drug abuse patient.[facility] HospitalIn the event this information is protected by the Federal Confidentiality of Alcohol and Drug Abuse Patient Records regulations: The Federal rules restrict any use of the information to criminally investigate or prosecute any alcohol or drug abuse patient.[facility] HospitalIn the event this information is protected by the Federal Confidentiality of Alcohol and Drug Abuse Patient Records regulations: The Federal rules restrict any use of the information to criminally investigate or prosecute any alcohol or drug abuse patient.[facility] HospitalIn the event this information is protected by the Federal Confidentiality of Alcohol and Drug Abuse Patient Records regulations: The Federal rules restrict any use of the information to criminally investigate or prosecute any alcohol or drug abuse patient.[facility] HospitalIn the event this information is protected by the Federal Confidentiality of Alcohol and Drug Abuse Patient Records regulations: The Federal rules restrict any use of the information to criminally investigate or prosecute any alcohol or drug abuse patient.[facility] HospitalIn the event this information is protected by the Federal Confidentiality of Alcohol and Drug Abuse Patient Records regulations: The Federal rules restrict any use of the information to criminally investigate or prosecute any alcohol or drug abuse patient.[facility] HospitalIn the event this information is protected by the Federal Confidentiality of Alcohol and Drug Abuse Patient Records regulations: The Federal rules restrict any use of the information to criminally investigate or prosecute any alcohol or drug abuse patient.[facility] HospitalIn the event this information is protected by the Federal Confidentiality of Alcohol and Drug Abuse Patient Records regulations: The Federal rules restrict any use of the information to criminally investigate or prosecute any alcohol or drug abuse patient.[facility] HospitalIn the event this information is protected by the Federal Confidentiality of Alcohol and Drug Abuse Patient Records regulations: The Federal rules restrict any use of the information to criminally investigate or prosecute any alcohol or drug abuse patient.[facility] HospitalIn the event this information is protected by the Federal Confidentiality of Alcohol and Drug Abuse Patient Records regulations: The Federal rules restrict any use of the information to criminally investigate or prosecute any alcohol or drug abuse patient.[facility] HospitalIn the event this information is protected by the Federal Confidentiality of Alcohol and Drug Abuse Patient Records regulations: The Federal rules restrict any use of the information to criminally investigate or prosecute any alcohol or drug abuse patient.[facility] HospitalIn the event this information is protected by the Federal Confidentiality of Alcohol and Drug Abuse Patient Records regulations: The Federal rules restrict any use of the information to criminally investigate or prosecute any alcohol or drug abuse patient.[facility] HospitalIn the event this information is protected by the Federal Confidentiality of Alcohol and Drug Abuse Patient Records regulations: The Federal rules restrict any use of the information to criminally investigate or prosecute any alcohol or drug abuse patient.[facility] HospitalIn the event this information is protected by the Federal Confidentiality of Alcohol and Drug Abuse Patient Records regulations: The Federal rules restrict any use of the information to criminally investigate or prosecute any alcohol or drug abuse patient.[facility] HospitalIn the event this information is protected by the Federal Confidentiality of Alcohol and Drug Abuse Patient Records regulations: The Federal rules restrict any use of the information to criminally investigate or prosecute any alcohol or drug abuse patient.[facility] HospitalIn the event this information is protected by the Federal Confidentiality of Alcohol and Drug Abuse Patient Records regulations: The Federal rules restrict any use of the information to criminally investigate or prosecute any alcohol or drug abuse patient.[facility] HospitalIn the event this information is protected by the Federal Confidentiality of Alcohol and Drug Abuse Patient Records regulations: The Federal rules restrict any use of the information to criminally investigate or prosecute any alcohol or drug abuse patient.[facility] HospitalIn the event this information is protected by the Federal Confidentiality of Alcohol and Drug Abuse Patient Records regulations: The Federal rules restrict any use of the information to criminally investigate or prosecute any alcohol or drug abuse patient.[facility] HospitalIn the event this information is protected by the Federal Confidentiality of Alcohol and Drug Abuse Patient Records regulations: The Federal rules restrict any use of the information to criminally investigate or prosecute any alcohol or drug abuse patient.[facility] HospitalIn the event this information is protected by the Federal Confidentiality of Alcohol and Drug Abuse Patient Records regulations: The Federal rules restrict any use of the information to criminally investigate or prosecute any alcohol or drug abuse patient.[facility] HospitalIn the event this information is protected by the Federal Confidentiality of Alcohol and Drug Abuse Patient Records regulations: The Federal rules restrict any use of the information to criminally investigate or prosecute any alcohol or drug abuse patient.[facility] HospitalIn the event this information is protected by the Federal Confidentiality of Alcohol and Drug Abuse Patient Records regulations: The Federal rules restrict any use of the information to criminally investigate or prosecute any alcohol or drug abuse patient.[facility] HospitalIn the event this information is protected by the Federal Confidentiality of Alcohol and Drug Abuse Patient Records regulations: The Federal rules restrict any use of the information to criminally investigate or prosecute any alcohol or drug abuse patient.[facility] HospitalIn the event this information is protected by the Federal Confidentiality of Alcohol and Drug Abuse Patient Records regulations: The Federal rules restrict any use of the information to criminally investigate or prosecute any alcohol or drug abuse patient.[facility] HospitalIn the event this information is protected by the Federal Confidentiality of Alcohol and Drug Abuse Patient Records regulations: The Federal rules restrict any use of the information to criminally investigate or prosecute any alcohol or drug abuse patient.[facility] HospitalIn the event this information is protected by the Federal Confidentiality of Alcohol and Drug Abuse Patient Records regulations: The Federal rules restrict any use of the information to criminally investigate or prosecute any alcohol or drug abuse patient.[facility] HospitalIn the event this information is protected by the Federal Confidentiality of Alcohol and Drug Abuse Patient Records regulations: The Federal rules restrict any use of the information to criminally investigate or prosecute any alcohol or drug abuse patient.[facility] HospitalIn the event this information is protected by the Federal Confidentiality of Alcohol and Drug Abuse Patient Records regulations: The Federal rules restrict any use of the information to criminally investigate or prosecute any alcohol or drug abuse patient.[facility] HospitalIn the event this information is protected by the Federal Confidentiality of Alcohol and Drug Abuse Patient Records regulations: The Federal rules restrict any use of the information to criminally investigate or prosecute any alcohol or drug abuse patient.[facility] HospitalIn the event this information is protected by the Federal Confidentiality of Alcohol and Drug Abuse Patient Records regulations: The Federal rules restrict any use of the information to criminally investigate or prosecute any alcohol or drug abuse patient.[facility] HospitalIn the event this information is protected by the Federal Confidentiality of Alcohol and Drug Abuse Patient Records regulations: The Federal rules restrict any use of the information to criminally investigate or prosecute any alcohol or drug abuse patient.[facility] HospitalIn the event this information is protected by the Federal Confidentiality of Alcohol and Drug Abuse Patient Records regulations: The Federal rules restrict any use of the information to criminally investigate or prosecute any alcohol or drug abuse patient.[facility] HospitalIn the event this information is protected by the Federal Confidentiality of Alcohol and Drug Abuse Patient Records regulations: The Federal rules restrict any use of the information to criminally investigate or prosecute any alcohol or drug abuse patient.[facility] HospitalIn the event this information is protected by the Federal Confidentiality of Alcohol and Drug Abuse Patient Records regulations: The Federal rules restrict any use of the information to criminally investigate or prosecute any alcohol or drug abuse patient.[facility] HospitalIn the event this information is protected by the Federal Confidentiality of Alcohol and Drug Abuse Patient Records regulations: The Federal rules restrict any use of the information to criminally investigate or prosecute any alcohol or drug abuse patient.[facility] HospitalIn the event this information is protected by the Federal Confidentiality of Alcohol and Drug Abuse Patient Records regulations: The Federal rules restrict any use of the information to criminally investigate or prosecute any alcohol or drug abuse patient.[facility] HospitalIn the event this information is protected by the Federal Confidentiality of Alcohol and Drug Abuse Patient Records regulations: The Federal rules restrict any use of the information to criminally investigate or prosecute any alcohol or drug abuse patient.[facility] HospitalIn the event this information is protected by the Federal Confidentiality of Alcohol and Drug Abuse Patient Records regulations: The Federal rules restrict any use of the information to criminally investigate or prosecute any alcohol or drug abuse patient.[facility] HospitalIn the event this information is protected by the Federal Confidentiality of Alcohol and Drug Abuse Patient Records regulations: The Federal rules restrict any use of the information to criminally investigate or prosecute any alcohol or drug abuse patient.[facility] HospitalIn the event this information is protected by the Federal Confidentiality of Alcohol and Drug Abuse Patient Records regulations: The Federal rules restrict any use of the information to criminally investigate or prosecute any alcohol or drug abuse patient.[facility] HospitalIn the event this information is protected by the Federal Confidentiality of Alcohol and Drug Abuse Patient Records regulations: The Federal rules restrict any use of the information to criminally investigate or prosecute any alcohol or drug abuse patient.[facility] HospitalIn the event this information is protected by the Federal Confidentiality of Alcohol and Drug Abuse Patient Records regulations: The Federal rules restrict any use of the information to criminally investigate or prosecute any alcohol or drug abuse patient.[facility] HospitalIn the event this information is protected by the Federal Confidentiality of Alcohol and Drug Abuse Patient Records regulations: The Federal rules restrict any use of the information to criminally investigate or prosecute any alcohol or drug abuse patient.[facility] HospitalIn the event this information is protected by the Federal Confidentiality of Alcohol and Drug Abuse Patient Records regulations: The Federal rules restrict any use of the information to criminally investigate or prosecute any alcohol or drug abuse patient.[facility] HospitalIn the event this information is protected by the Federal Confidentiality of Alcohol and Drug Abuse Patient Records regulations: The Federal rules restrict any use of the information to criminally investigate or prosecute any alcohol or drug abuse patient.[facility] HospitalIn the event this information is protected by the Federal Confidentiality of Alcohol and Drug Abuse Patient Records regulations: The Federal rules restrict any use of the information to criminally investigate or prosecute any alcohol or drug abuse patient.[facility] HospitalIn the event this information is protected by the Federal Confidentiality of Alcohol and Drug Abuse Patient Records regulations: The Federal rules restrict any use of the information to criminally investigate or prosecute any alcohol or drug abuse patient.[facility] HospitalIn the event this information is protected by the Federal Confidentiality of Alcohol and Drug Abuse Patient Records regulations: The Federal rules restrict any use of the information to criminally investigate or prosecute any alcohol or drug abuse patient.[facility] HospitalIn the event this information is protected by the Federal Confidentiality of Alcohol and Drug Abuse Patient Records regulations: The Federal rules restrict any use of the information to criminally investigate or prosecute any alcohol or drug abuse patient.[facility] HospitalIn the event this information is protected by the Federal Confidentiality of Alcohol and Drug Abuse Patient Records regulations: The Federal rules restrict any use of the information to criminally investigate or prosecute any alcohol or drug abuse patient.[facility] HospitalIn the event this information is protected by the Federal Confidentiality of Alcohol and Drug Abuse Patient Records regulations: The Federal rules restrict any use of the information to criminally investigate or prosecute any alcohol or drug abuse patient.[facility] HospitalIn the event this information is protected by the Federal Confidentiality of Alcohol and Drug Abuse Patient Records regulations: The Federal rules restrict any use of the information to criminally investigate or prosecute any alcohol or drug abuse patient.[facility] HospitalIn the event this information is protected by the Federal Confidentiality of Alcohol and Drug Abuse Patient Records regulations: The Federal rules restrict any use of the information to criminally investigate or prosecute any alcohol or drug abuse patient.[facility] HospitalIn the event this information is protected by the Federal Confidentiality of Alcohol and Drug Abuse Patient Records regulations: The Federal rules restrict any use of the information to criminally investigate or prosecute any alcohol or drug abuse patient.[facility] HospitalIn the event this information is protected by the Federal Confidentiality of Alcohol and Drug Abuse Patient Records regulations: The Federal rules restrict any use of the information to criminally investigate or prosecute any alcohol or drug abuse patient.[facility] HospitalIn the event this information is protected by the Federal Confidentiality of Alcohol and Drug Abuse Patient Records regulations: The Federal rules restrict any use of the information to criminally investigate or prosecute any alcohol or drug abuse patient.[facility] HospitalIn the event this information is protected by the Federal Confidentiality of Alcohol and Drug Abuse Patient Records regulations: The Federal rules restrict any use of the information to criminally investigate or prosecute any alcohol or drug abuse patient.[facility] HospitalIn the event this information is protected by the Federal Confidentiality of Alcohol and Drug Abuse Patient Records regulations: The Federal rules restrict any use of the information to criminally investigate or prosecute any alcohol or drug abuse patient.[facility] HospitalIn the event this information is protected by the Federal Confidentiality of Alcohol and Drug Abuse Patient Records regulations: The Federal rules restrict any use of the information to criminally investigate or prosecute any alcohol or drug abuse patient.[facility] HospitalIn the event this information is protected by the Federal Confidentiality of Alcohol and Drug Abuse Patient Records regulations: The Federal rules restrict any use of the information to criminally investigate or prosecute any alcohol or drug abuse patient.[facility] HospitalIn the event this information is protected by the Federal Confidentiality of Alcohol and Drug Abuse Patient Records regulations: The Federal rules restrict any use of the information to criminally investigate or prosecute any alcohol or drug abuse patient.[facility] HospitalIn the event this information is protected by the Federal Confidentiality of Alcohol and Drug Abuse Patient Records regulations: The Federal rules restrict any use of the information to criminally investigate or prosecute any alcohol or drug abuse patient.[facility] HospitalIn the event this information is protected by the Federal Confidentiality of Alcohol and Drug Abuse Patient Records regulations: The Federal rules restrict any use of the information to criminally investigate or prosecute any alcohol or drug abuse patient.[facility] HospitalIn the event this information is protected by the Federal Confidentiality of Alcohol and Drug Abuse Patient Records regulations: The Federal rules restrict any use of the information to criminally investigate or prosecute any alcohol or drug abuse patient.[facility] HospitalIn the event this information is protected by the Federal Confidentiality of Alcohol and Drug Abuse Patient Records regulations: The Federal rules restrict any use of the information to criminally investigate or prosecute any alcohol or drug abuse patient.[facility] HospitalIn the event this information is protected by the Federal Confidentiality of Alcohol and Drug Abuse Patient Records regulations: The Federal rules restrict any use of the information to criminally investigate or prosecute any alcohol or drug abuse patient.[facility] HospitalIn the event this information is protected by the Federal Confidentiality of Alcohol and Drug Abuse Patient Records regulations: The Federal rules restrict any use of the information to criminally investigate or prosecute any alcohol or drug abuse patient.[facility] HospitalIn the event this information is protected by the Federal Confidentiality of Alcohol and Drug Abuse Patient Records regulations: The Federal rules restrict any use of the information to criminally investigate or prosecute any alcohol or drug abuse patient.[facility] HospitalIn the event this information is protected by the Federal Confidentiality of Alcohol and Drug Abuse Patient Records regulations: The Federal rules restrict any use of the information to criminally investigate or prosecute any alcohol or drug abuse patient.[facility] HospitalIn the event this information is protected by the Federal Confidentiality of Alcohol and Drug Abuse Patient Records regulations: The Federal rules restrict any use of the information to criminally investigate or prosecute any alcohol or drug abuse patient.[facility] HospitalIn the event this information is protected by the Federal Confidentiality of Alcohol and Drug Abuse Patient Records regulations: The Federal rules restrict any use of the information to criminally investigate or prosecute any alcohol or drug abuse patient.[facility] HospitalIn the event this information is protected by the Federal Confidentiality of Alcohol and Drug Abuse Patient Records regulations: The Federal rules restrict any use of the information to criminally investigate or prosecute any alcohol or drug abuse patient.[facility] HospitalIn the event this information is protected by the Federal Confidentiality of Alcohol and Drug Abuse Patient Records regulations: The Federal rules restrict any use of the information to criminally investigate or prosecute any alcohol or drug abuse patient.[facility] HospitalIn the event this information is protected by the Federal Confidentiality of Alcohol and Drug Abuse Patient Records regulations: The Federal rules restrict any use of the information to criminally investigate or prosecute any alcohol or drug abuse patient.[facility] HospitalIn the event this information is protected by the Federal Confidentiality of Alcohol and Drug Abuse Patient Records regulations: The Federal rules restrict any use of the information to criminally investigate or prosecute any alcohol or drug abuse patient.[facility] HospitalIn the event this information is protected by the Federal Confidentiality of Alcohol and Drug Abuse Patient Records regulations: The Federal rules restrict any use of the information to criminally investigate or prosecute any alcohol or drug abuse patient.[facility] HospitalIn the event this information is protected by the Federal Confidentiality of Alcohol and Drug Abuse Patient Records regulations: The Federal rules restrict any use of the information to criminally investigate or prosecute any alcohol or drug abuse patient.[facility] HospitalIn the event this information is protected by the Federal Confidentiality of Alcohol and Drug Abuse Patient Records regulations: The Federal rules restrict any use of the information to criminally investigate or prosecute any alcohol or drug abuse patient.[facility] HospitalIn the event this information is protected by the Federal Confidentiality of Alcohol and Drug Abuse Patient Records regulations: The Federal rules restrict any use of the information to criminally investigate or prosecute any alcohol or drug abuse patient.[facility] HospitalIn the event this information is protected by the Federal Confidentiality of Alcohol and Drug Abuse Patient Records regulations: The Federal rules restrict any use of the information to criminally investigate or prosecute any alcohol or drug abuse patient.[facility] HospitalIn the event this information is protected by the Federal Confidentiality of Alcohol and Drug Abuse Patient Records regulations: The Federal rules restrict any use of the information to criminally investigate or prosecute any alcohol or drug abuse patient.[facility] HospitalIn the event this information is protected by the Federal Confidentiality of Alcohol and Drug Abuse Patient Records regulations: The Federal rules restrict any use of the information to criminally investigate or prosecute any alcohol or drug abuse patient.[facility] HospitalIn the event this information is protected by the Federal Confidentiality of Alcohol and Drug Abuse Patient Records regulations: The Federal rules restrict any use of the information to criminally investigate or prosecute any alcohol or drug abuse patient.[facility] HospitalIn the event this information is protected by the Federal Confidentiality of Alcohol and Drug Abuse Patient Records regulations: The Federal rules restrict any use of the information to criminally investigate or prosecute any alcohol or drug abuse patient.[facility] HospitalIn the event this information is protected by the Federal Confidentiality of Alcohol and Drug Abuse Patient Records regulations: The Federal rules restrict any use of the information to criminally investigate or prosecute any alcohol or drug abuse patient.[facility] HospitalIn the event this information is protected by the Federal Confidentiality of Alcohol and Drug Abuse Patient Records regulations: The Federal rules restrict any use of the information to criminally investigate or prosecute any alcohol or drug abuse patient.[facility] HospitalIn the event this information is protected by the Federal Confidentiality of Alcohol and Drug Abuse Patient Records regulations: The Federal rules restrict any use of the information to criminally investigate or prosecute any alcohol or drug abuse patient.[facility] HospitalIn the event this information is protected by the Federal Confidentiality of Alcohol and Drug Abuse Patient Records regulations: The Federal rules restrict any use of the information to criminally investigate or prosecute any alcohol or drug abuse patient.[facility] HospitalIn the event this information is protected by the Federal Confidentiality of Alcohol and Drug Abuse Patient Records regulations: The Federal rules restrict any use of the information to criminally investigate or prosecute any alcohol or drug abuse patient.[facility] Reason for Visit (unrecogniz ed section and content) Reason Comments Insurance Authorization sleep study Reason Onset Date Comments Refill Request 01/09/2022 Reason Comments PSG results Reason Comments 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 Reason Comments Orders [...] FEMALE PELVIS TRANSVAG US TRANSVAGINAL Fior Alvarez APRN.LEAD ENGINEER [address] [place] [address] Phone: tel: fax: [facility] [place] [phone] Referral ID Status Reason Start Date Expiration Date V isits Requested Visits Authorized [id number] Closed Auto-Generate d Referral 01/26/2025 02/25/2026 1 1 Reason Comments ultrasound results Reason Onset Date Comments Refill Request 02/08/2025 Reason Onset Date Comments EMG 02/09/2025 Specialty Diagnoses / Procedures Referred By Contac t Referred To [facility] Diagnoses Paresthesia of both feet Procedures [facility](NEURO/NI) NERVE CONDUCTION STUDIES 9-10 STUDIES Lucille Brandt, PAMati [address] [facility] [address] [place] [address] Phone: tel: fax: Neurology [address] [place] [address] Phone: tel: Referral ID Status Reason Start Date Expiration Date V isits Requested Visits Authorized [id number] Closed Auto-Generate d Referral 01/22/2025 01/22/2026 1 [...] BE BASED ON THE PRIMARY CLINICAL RECORDS. [facility] [employer] [facility]. provides no warranty or guarantee of the accuracy or completeness of information in this document.
[2025-07-11 02:33] VITALS: BP 127/78; PULSE 79; RESP 16; TEMP 36.6; O2SAT 98
[2025-07-11] MEDS: Cefazolin 2 GM in 0.9% Normal Saline (100mL Bag) 100 ML IV (05:18)
[2025-07-11 05:39] VITALS: BP 131/82; PULSE 73; RESP 16; TEMP 36.6; O2SAT 99
[2025-07-11 05:42] VITALS: PULSE 73
--- NOTE | 2025-07-11 06:00 | RAD_ITS ---
PROCEDURE: LUMBAR SPINE 2 OR 3 VIEWS 07/11/2025 REASON FOR EXAM: S/P TLIF TECHNIQUE: Procedure Code: RADSPLL Modality: DX Procedure: LUMBAR SPINE 2 OR 3 VIEWS COMPARISON: MRI on 04/13/2025. FINDINGS: Prior decompression and fusion with unremarkable transpedicular screws at L5-S1. Unremarkable disc spacer at L5-S1. Mild degenerative levoscoliosis apex at L3. There are diffuse spondylotic changes. Findings are demonstrated to by diffuse disc space narrowing, osteophyte formation and degenerative endplate sclerosis. There is diffuse facet joint arthropathy with secondary bilateral neural foramina narrowing. No fracture or dislocation is seen. No aggressive lytic or blastic bony lesion is noted. Mildly exaggerated lumbar lordosis. RAD/Lumbar Spine 2 or 3 Views IMPRESSION: Prior decompression and fusion with unremarkable transpedicular screws at L5-S1 . Unremarkable disc spacer at L5-S1. Reading Location[facility]
[2025-07-11 06:54] LABS: Hematocrit 34.7 % (37-47); Hemoglobin 11.2 g/dL (12.0-15.0); Immature Granulocytes Count 0.020 X10^3/uL (0.0-0.0); Mean Corp Hgb Conc 32.3 g/dL (32-36); Mean Corpuscular Volume 94.6 fL (81-99); Mean Platelet Vol. 9.7 fl (6.2-12.0); NRBC Flagged by Analyzer 0 % (0-5); Platelet Count 197 K/mm3 (150-450); RBC Distribution Width CV 11.9 % (11.6-14.6); RBC Distribution Width SD 41.8 fl (35.1-43.9); Red Blood Count 3.67 M/mm3 (4.2-5.4); White Blood Count 6.3 K/mm3 (4.4-11.0)
[2025-07-11 07:29] LABS: Anion Gap 8 (5-15); BUN 5 mg/dL (4-19); BUN/Creat Ratio 7.6 RATIO (10-20); Calcium,Total 8.6 mg/dL (7.6-11.0); Carbon Dioxide 27.7 mmol/L (21.0-32.0); Chloride 102 mmol/L (98-108); Estimated Creatinine Clearance 102.32 ml/min (50-250); Glucose 81 mg/dL (70-99); Potassium 3.8 mmol/L (3.3-5.1)
[2025-07-11 09:02] VITALS: BP 127/62; PULSE 76; RESP 15; TEMP 36.4; O2SAT 97
[2025-07-11] MEDS: Senna/Docusate Sodium 1 Tablet 2 TABLET PO (09:04)
[2025-07-11] MEDS: Cholecalciferol (VIT D3) 25 MCG TABLET (1,000 UNITS) 50 MCG PO (09:04)
[2025-07-11] MEDS: Potassium Chloride Oral Tablet 10 MEQ PO (09:04)
[2025-07-11 09:05] VITALS: BP 127/62; PULSE 76
--- NOTE | 2025-07-11 09:38 | PCM.PN.HOSP ---
Subjective Subjective Doing well, pain is controlled. No issues overnight Objective Data Objective Data Vital Signs: Vital Signs Temp Pulse Resp BP Pulse Ox O2 Del Method O2 Flow Rate 97.6 F L 76 15 127/62 H 97 Room Air 4 07/11/25 09:02 07/11/25 09:05 07/11/25 09:02 07/11/25 09:05 07/11/25 09:02 07/11/25 09:02 07/10/25 18:00 Oxygen Flow Rate (L/min) 4 Oxygen Delivery Method Room Air Weight: 178 lb Body Mass Index (BMI) 28.7 Intake & Output: Intake and Output for Last 24 Hours 07/10/25 07/11/25 07/12/25 03:59 03:59 03:59 Intake Total 110 / 110 110 / 110 Output Total Balance 80 / 80 110 / 110 Lab / Micro Data 07/11/25 06:20 07/11/25 06:20 Labs: Laboratory Results - last 24 hr 07/10/25 11:49: POC Glucose 79 07/11/25 06:20: WBC 6.3, RBC 3.67 L, Hgb 11.2 L, Hct 34.7 L, MCV 94.6, MCH 30.5, MCHC 32.3, RDW Std Deviation 41.8, RDW Coeff of Tiffani 11.9, Plt Count 197, MPV 9.7, Immature Gran % (Auto) 0.300, Neut % (Auto) 53.8, Lymph % (Auto) 36.4, [place] % (Auto) 6.8, Eos % (Auto) 2.2, Baso % (Auto) 0.5, Absolute Neuts (auto) 3.4, Absolute Lymphs (auto) 2.29, Nucleated RBC % 0, Sodium 138, Potassium 3.8, Chloride 102, Carbon Dioxide 27.7, Anion Gap 8, BUN 5, Creatinine 0.65 L, Estim Creat Clear Calc 102.32, Est GFR (MDRD) Non-Af 103, BUN/Creatinine Ratio 7.6 L, Glucose 81, Calcium 8.6 Micro: Microbiology 06/27/25 07:09 Swab (Method) Nasal Screen MRSA/MSSA - Final Radiography Diagnostic Testing: Radiology Impression Lumbar Spine X-Ray 07/11/25 06:00 IMPRESSION: Prior decompression and fusion with unremarkable transpedicular screws at L5-S1. Unremarkable disc spacer at L5-S1. Reading Location: [place] [id number] Physical Exam Narrative General: Alert, Oriented x3, Cooperative, No apparent distress HEENT: Atraumatic, PERRLA, EOMI, Normocephalic Oral: Moist Mucosa Neck: Supple, No JVD Lungs: Diminished, Normal air movement, No rhonchi, No wheeze, No rales Cardiovascular: Regular rate, Regular Rhythm, Normal S1, Normal S2, No murmurs Abdomen: Soft, Non Tender, Non-Distended, No Hepato-splenomegaly Extremities: No edema, Capillary Refill Less than 3 Seconds Skin: No rashes, No breakdown Musculoskeletal: No Tenderness to Palpation of Joints or Extremities Neurological: No focal neurological deficits, moves all extremities, sensation intact Psych/Mental Status: Normal Affect, Appropriate Assessment & Plan Assessment/Plan (1) Lumbar stenosis with neurogenic claudication: PLAN: Plan 1. L5-S1 disc degeneration with foraminal stenosis ? Orthopedic surgery primary. S/p L5-S1 transforaminal lumbar interbody fusion procedure with Dr. Bauman on 07/10. Tolerated procedure well, no intraoperative complications noted. Postoperative pain control, DVT prophylaxis and further management per orthopedics. Follow-up a.m. labs. PT/OT/case management consulted. ? Tolerating a diet ? Renal function is stable, she is good to resume all of her home medications on discharge ? She is medically stable for discharge 2. Hypertension/hyperlipidemia ? Normotensive postoperatively. Will continue home Lopressor, lisinopril and hydrochlorothiazide with hold parameters. Continue home statin. 3. Generalized anxiety disorder/bipolar 2 disorder ? Follows with psychiatry. Continue home aripiprazole. 4. Sjogren's disease, autoimmune polyarthropathy ? Unclear from records on specific diagnosis with regards to her autoimmune polyarthropathy. Not in acute exacerbation. Continue home leflunomide, sulfasalazine, hydroxychloroquine and cevimeline. 5. GERD ? Continue home PPI. 6. Hypothyroidism ? Continue home Synthroid. DVT: Per Ortho Will sign off Charges/Coding Visit Charges Inpatient E&M: 47147 Subs Hosp L2
--- NOTE | 2025-07-11 10:22 | PCM.PN.ORT ---
Subjective Subjective Postop day 1 L5-S1 TLIF. The patient is doing well postoperatively with her pain well-controlled. The patient has been up and walking. Reviewed PT evaluation which has cleared her for home discharge. Plan to go home today. Seen with Dr. Bauman. Objective Data Objective Data Vital Signs: Vital Signs Temp Pulse Resp BP Pulse Ox O2 Del Method O2 Flow Rate 97.6 F L 76 15 127/62 H 97 Room Air 4 07/11/25 09:02 07/11/25 09:05 07/11/25 09:02 07/11/25 09:05 07/11/25 09:02 07/11/25 09:02 07/10/25 18:00 Oxygen Flow Rate (L/min) 4 Oxygen Delivery Method Room Air Weight: 178 lb Body Mass Index (BMI) 28.7 Intake & Output: Intake and Output for Last 24 Hours 07/09/25 07/10/25 07/11/25 23:59 23:59 23:59 Intake Total 110 / 110 110 / 110 Output Total Balance 80 / 80 110 / 110 Lab / Micro Data 07/11/25 06:20 07/11/25 06:20 Labs: Laboratory Results - last 24 hr 07/10/25 11:49: POC Glucose 79 07/11/25 06:20: WBC 6.3, RBC 3.67 L, Hgb 11.2 L, Hct 34.7 L, MCV 94.6, MCH 30.5, MCHC 32.3, RDW Std Deviation 41.8, RDW Coeff of Tiffani 11.9, Plt Count 197, MPV 9.7, Immature Gran % (Auto) 0.300, Neut % (Auto) 53.8, Lymph % (Auto) 36.4, [place] % (Auto) 6.8, Eos % (Auto) 2.2, Baso % (Auto) 0.5, Absolute Neuts (auto) 3.4, Absolute Lymphs (auto) 2.29, Nucleated RBC % 0, Sodium 138, Potassium 3.8, Chloride 102, Carbon Dioxide 27.7, Anion Gap 8, BUN 5, Creatinine 0.65 L, Estim Creat Clear Calc 102.32, Est GFR (MDRD) Non-Af 103, BUN/Creatinine Ratio 7.6 L, Glucose 81, Calcium 8.6 Micro: Microbiology 06/27/25 07:09 Swab (Method) Nasal Screen MRSA/MSSA - Final Radiography Diagnostic Testing: Radiology Impression Lumbar Spine X-Ray 07/11/25 06:00 IMPRESSION: Prior decompression and fusion with unremarkable transpedicular screws at L5-S1. Unremarkable disc spacer at L5-S1. Reading Location: [place] [id number] Physical Exam Narrative Neurological examination of the lower extremity shows 5X5 power. Normal sensation across all dermatomes. Physical examination of the back shows Tegaderm and gauze CDI. Const alert, oriented x3 and no apparent distress Assessment & Plan Assessment/Plan (1) Status post lumbar spinal fusion: PLAN: Plan Postop day 1 L5-S1 TLIF. Obtained and reviewed x-rays today which show hardware and bone graft in good position. PT/OT cleared for home discharge. Plan for home discharge today. Home medications include oxycodone, acetaminophen, meloxicam, methocarbamol, senna. OARRS reviewed. The patient did have an at home [place], this will be discontinued. Educated and reviewed on the use of the incentive spirometer. Educated and reviewed on restrictions after surgery of no bending, lifting, twisting. She will follow-up in the clinic in 2 weeks. Sooner if needed for any new or worsening issues. Patient is in agreement to the plan.
--- NOTE | 2025-07-11 10:43 | DCINST_ITS ---
Discharge Instructions DC O2, CPAP, BIPAP needs Home O2 Discharge instructions: No Follow Up Care Test Results: Test results from this visit will be discussed in further detail at your follow- up appointment, if applicable. Discharge Plan Admission Attending Provider: Tobin Bauman Primary Care Provider: Ana Guo Consulting Providers: Andrzej Abraham Instructions Patient Instructions: Lumbar Fusion Dc Additional Instructions / Restrictions: Keep Tegaderm and gauze clean and dry. If Tegaderm is intact, okay to shower. After 5 days remove Tegaderm and gauze and cover with a Band-Aid. Replace Band- Aid daily thereafter. No bending lifting or twisting. Follow-up in clinic in 2 weeks. Print Language: Liberian Discharge Orders/Prescriptions Prescriptions: New acetaminophen 500 mg Tablet 1,000 mg PO Q6H Qty: 30 0RF methocarbamol 500 mg Tablet 750 mg PO TID PRN (Reason: pain/spasms) Qty: 30 0RF meloxicam 15 mg Tablet 15 mg PO DAILY Qty: 30 0RF oxycodone 5 mg Tablet 2.5 - 5 mg PO Q6H PRN (Reason: pain) 7 Days Qty: 28 0RF sennosides-docusate sodium [Stimulant Laxative Plus] 8.6-50 mg Tablet 2 tab PO BID PRN (Reason: constipation) Qty: 14 0RF Continued leflunomide 20 mg tablet 20 mg PO DAILY Patient Comments: TAKE 1 TABLET BY MOUTH EVERY DAY FOR 90 DAYS lisinopril 20 mg tablet 20 mg PO DAILY Patient Comments: TAKE 1 TABLET BY MOUTH TWICE A DAY metoprolol tartrate 25 mg tablet 12.5 mg PO DAILY Patient Comments: TAKE HALF A TABLET BY MOUTH EVERY 12 HOURS omeprazole 20 mg capsule,delayed release(DR/EC) 20 mg PO DAILY Patient Comments: TAKE 1 CAPSULE (20 MG) BY MOUTH DAILY. DO NOT CRUSH OR CHEW. hydroxychloroquine [Plaquenil] 200 mg tablet 200 mg PO BID pravastatin 80 mg tablet 80 mg PO QHS Patient Comments: TAKE ONE TABLET EVERY NIGHT AT BEDTIME sulfasalazine 500 mg tablet 1 g PO BID Patient Comments: TAKE 2 TABLETS BY MOUTH TWICE A DAY FOR 90 DAYS multivitamin Tablet 1 tab PO DAILY Mounjaro 7.5 mg/0.5 mL pen injector 10 mg subcut TH Patient Comments: LAST DOSE 06/28/25 FOR SURGERY 07/10/25 gabapentin 100 mg capsule 100 mg PO TID eletriptan [Relpax] 20 MG tablet 20 mg PO DAILY PRN cholecalciferol (vitamin D3) [Vitamin D3] 2,000 UNIT tablet 2,000 unit PO DAILY calcium carbonate-vitamin D3 [Caltrate with Vitamin D3] 1 TAB tablet 1 tab PO DAILY@0800 cevimeline [Evoxac] 30 mg capsule 30 mg PO BID aripiprazole 2 mg tablet 4 mg PO QHS gabapentin 400 mg capsule 400 mg PO TID levothyroxine 44 mcg capsule 44 mcg PO MOWEFR estradiol 0.01 % (0.1 mg/gram) cream 1 applic vaginal MOTH potassium chloride 10 mEq tablet extended release 10 meq PO BID hydrochlorothiazide 12.5 mg capsule 12.5 mg PO DAILY citalopram 20 mg tablet 30 mg PO DAILY 90 Days Qty: 135 1RF Discontinued hydrocodone-acetaminophen 5-325 mg tablet 0.5 - 1 tab PO QD-BID PRN (Reason: pain) cyclobenzaprine 10 mg tablet 10 mg PO BID PRN (Reason: muscle spasm) Referrals / Follow Up: Ana Guo MD [Primary Care Provider, Internal Medicine] Disposition Disposition (needs filled in before D/C Order can be placed): Home, Self Care
--- NOTE | 2025-07-11 11:18 | CASEMGMT ---
Pt with dc order placed. Noted PT eval. No therapy recommended.
--- NOTE | 2025-07-11 11:51 | PHA.DC.COU.R ---
Pharmacy [facility] has performed discharge medication counseling for this patient. The patient was counseled on the following discharge medications and changes in medications for homegoing review. - Meloxicam 15 mg tablet, Methocarbamol 500 mg tablet, Acetaminophen 500 mg tablet, Oxycodone 5 mg tablet, Sennosides/Docusate 8.6/50 mg tablet The Reason for Use, instructions for use, and potential side effects were reviewed for all new medications. The patient's questions regarding all of their medications were answered. - Retail pharmacy contacted for patient to have medications brought to her room before discharge. The patient was able to verbally demonstrate an understanding of their discharge medications. Medications at Discharge Home Medications calcium 600 mg (as carbonate)-vitamin D3 20 mcg (800 unit) tablet (Caltrate with Vitamin D3) 1 tab PO DAILY@0800 06/23/13 cholecalciferol (vitamin D3) 50 mcg (2,000 unit) tablet (Vitamin D3) 2,000 unit PO DAILY 06/23/13 eletriptan 20 mg tablet (Relpax) 20 mg PO DAILY PRN MIGRAINE 06/23/13 cevimeline 30 mg capsule (Evoxac) 30 mg PO BID 08/09/23 hydroxychloroquine 200 mg tablet (Plaquenil) 200 mg PO BID 08/09/23 leflunomide 20 mg tablet 20 mg PO DAILY 08/09/23 lisinopril 20 mg tablet 20 mg PO DAILY 08/09/23 metoprolol tartrate 25 mg tablet 12.5 mg PO DAILY 08/09/23 multivitamin 1 tab PO DAILY 08/09/23 omeprazole 20 mg capsule,delayed release 20 mg PO DAILY 08/09/23 pravastatin 80 mg tablet 80 mg PO QHS 08/09/23 sulfasalazine 500 mg tablet 1 g PO BID 08/09/23 gabapentin 400 mg capsule 400 mg PO TID 11/08/24 levothyroxine 44 mcg capsule 44 mcg PO MOWEFR 11/08/24 citalopram 20 mg tablet 30 mg (1.5 x 20 mg) PO DAILY 90 days #135 tabs 02/22/25 gabapentin 100 mg capsule 100 mg PO TID 04/05/25 tirzepatide 7.5 mg/0.5 mL subcutaneous pen injector (Mounjaro) 10 mg subcut TH 04/05/25 aripiprazole 2 mg tablet 4 mg PO QHS 04/10/25 estradiol 0.01% (0.1 mg/gram) vaginal cream 1 applic vaginal MOTH 06/26/25 hydrochlorothiazide 12.5 mg capsule 12.5 mg PO DAILY 06/26/25 potassium chloride 10 mEq tablet,extended release 10 meq PO BID 06/26/25 acetaminophen 500 mg tablet 1,000 mg (2 x 500 mg) PO Q6H #30 tabs 07/11/25 meloxicam 15 mg tablet 15 mg PO DAILY #30 tabs 07/11/25 methocarbamol 500 mg tablet 750 mg (1.5 x 500 mg) PO TID PRN pain/spasms #30 tabs 07/11/25 oxycodone 5 mg tablet 2.5 - 5 mg (0.5 - 1 x 5 mg) PO Q6H PRN pain 7 days #28 tabs 07/11/25 sennosides 8.6 mg-docusate sodium 50 mg tablet (Stimulant Laxative Plus) 2 tab PO BID PRN constipation #14 tabs 07/11/25
== END 2025-07-11 13:00 | disposition home or self-care (01) ==
LOC: MS3 07-11 07:04 → SDC 07-11 14:34 → MS3 07-11 14:34
PROVIDERS: Anesthesiology; Student in an Organized Health Care Education/Training Program; Admitting Provider Orthopaedic Surgery Orthopaedic Surgery of the Spine; PCP Internal Medicine; Referring Provider Orthopaedic Surgery Orthopaedic Surgery of the Spine; Visit Provider Orthopaedic Surgery Orthopaedic Surgery of the Spine
PROC: (CPT 22633; principal; 2025-07-10 14:00)
DX: M48.062 Spinal stenosis, lumbar region with neurogenic claudication (principal); F31.81 Bipolar II disorder; E11.9 Type 2 diabetes mellitus without complications; Z79.899 Other long term (current) drug therapy; M48.07 Spinal stenosis, lumbosacral region; E78.00 Pure hypercholesterolemia, unspecified; I10 Essential (primary) hypertension; M51.370 Other intervertebral disc degeneration, lumbosacral region with discogenic back pain only; K21.9 Gastro-esophageal reflux disease without esophagitis; Z87.891 Personal history of nicotine dependence; M79.7 Fibromyalgia; G43.909 Migraine, unspecified, not intractable, without status migrainosus; M47.816 Spondylosis without myelopathy or radiculopathy, lumbar region; E03.9 Hypothyroidism, unspecified; Z79.890 Hormone replacement therapy; Z98.84 Bariatric surgery status; M51.360 Other intervertebral disc degeneration, lumbar region with discogenic back pain only; F41.1 Generalized anxiety disorder; M35.00 Sjogren syndrome, unspecified
CPT/HCPCS: 22633; 22840; 22853; 20936; 20930; 36415; 72100; 76000; 80048; 82962; 83036; 83735; 84443; 85025; 86850; 86900; 86901; 87081; 93005; 94668; 96365; 96366; 96375; 96376; 97161; 99221; C1713; A4216; G0378; J2405

== ENCOUNTER → 2025-08-23 | Outpatient (CLI) | payer OTHER, SELFPAY ==
--- OUTSIDE RECORDS SUMMARY | 2025-08-23 06:59 | XMS RPT_ITS | CCD ---
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 Unavailable Naty KOLB Angelique Unavailable Aly KOLB Edilson L Unavailable Naty PAMati Angelique Unavailable OLDER, FIOR Referring Unavailable GANTA, [...] Referring Unavailable GANTA, ANA Primary Care Unavailable JACQUIE CLARKE Attending Unavailable GANTA, ANA Primary Care Unavailable GANTA, ANA Attending Unavailable GANTA, ANA Primary Care Unavailable OLDER, FIOR Attending Unavailable GANTA, ANA Primary Care Unavailable OLDER, FIOR Referring Unavailable GANTA, ANA Primary Care Unavailable OLDER, FIOR Referring Unavailable GANTA, ANA Primary Care Unavailable RICHIE NEWMAN Attending Unavailable Ganta, Ana Primary Care Unavailable EDILSON PENN Attending Unavailable EDILSON PENN Referring Unavailable Razia, Saundra Attending Unavailable Razia, Saundra Referring Unavailable Ganta, Ana Primary Care Unavailable Siska, Denver Attending Unavailable Siska, Denver Referring Unavailable Ganta, Ana Primary Care Unavailable Bauman, Tobin Attending Unavailable Bauman, Tobin Referring Unavailable Bauman, Tobin Admitting Unavailable KotsonisTrentAndrzej F Consulting Unavailable Ganta, Ana Primary Care Unavailable Bauman, Tobin Referring Unavailable Joy, Asad Consulting Unavailable Asad Hamilton Attending Unavailable Ganta, Ana Primary Care Unavailable Bauman, Tobin Consulting Unavailable Braxton, Luis Attending Unavailable Braxton, Paisley Attending Unavailable Ganta, Ana Primary Care Unavailable Siska, Denver Attending Unavailable Ganta, Ana Referring Unavailable Siska, Denver Attending Unavailable Siska, Denver Referring Unavailable Ganta, Ana Primary Care Unavailable Razia, Saundra Attending Unavailable Ganta, Ana Referring Unavailable Siska, Denver Attending Unavailable Ganta, Ana Referring Unavailable Siska, Denver Attending Unavailable Ganta, Naa Referring Unavailable Ganta, Ana Primary Care Unavailable Ganta, Ana Primary Care Unavailable Leo HOTEL BAGGAGE HANDLER, Sobeida Sofia Attending Unavailabl e Ganta, Ana Referring Unavailable Ganta, Ana Primary Care Unavailable Josue Davies Attending Unavailable Ganta, Ana Primary Care Unavailable Siska, Denver Attending Unavailable Ganta, Ana Referring Unavailable Ganta, Ana Primary Care Unavailable Siska, Denver Referring Unavailable Siska, Denver Consulting Unavailable Siska, Denver Attending Unavailable Bauman, Tobin Referring Unavailable Razia, Saundra Attending Unavailable MohanoniSharon echavarrias F Consulting Unavailable Ganta, Ana Primary Care Unavailable Bauman, Tobin Consulting Unavailable Bauamn, Tobin Referring Unavailable KotsonisTrentAndrzej F Consulting Unavailable KotsonisTrentAndrzej F Attending Unavailable Ganta, Ana Primary Care Unavailable Bauman, Tobin Consulting Unavailable Bauman, Tobin Attending Unavailable Ganta, Ana Referring Unavailable Ganta, Ana Primary Care Unavailable Ganta, Ana Referring Unavailable RaziaNarenSaundra Attending Unavailable Ganta, Ana Primary Care Unavailable Siska, Denver Attending Unavailable Ganta, Ana Referring Unavailable Josue Davies Attending Unavailable Ganta, Ana Primary Care Unavailable Bauman, Tobin Referring Unavailable Bauman, Tobin Consulting Unavailable Bauman, Tobin Attending Unavailable Ganta, Ana Primary Care Unavailable Ganta, Ana Primary Care Unavailable Siska, Denver Referring Unavailable Siska, Denver Consulting Unavailable Denver Casillas Attending Unavailable Tobin Bauman Attending Unavailable Ganta, Ana Referring Unavailable Ganta, Ana Primary Care Unavailable Ash Chowdhury Attending Unavailable Ash Chowdhury Referring Unavailable Ganta, Ana Primary Care Unavailable Tobin Bauman Attending Unavailable Ganta, Ana Referring Unavailable Ganta, Ana Primary Care Unavailable Ganta, Ana Primary Care Unavailable Denver Casillas Attending Unavailable Ganta, Ana Referring Unavailable Ganta, Ana Primary Care Unavailable Denver Casillas Attending Unavailable Ganta, Ana Referring Unavailable Josue Davies Attending Unavailable Ganta, Ana Primary Care Unavailable Allergies Allergy Classification Reported Allergen(s) Allergy Type Date of Onset Reaction(s) Facility (20 sources) Acetaminophen / HYDROcodone; Translations: [HYDROCODONE-ACET AMINOPHEN] Drug Allergy 9 Itching [facility] Work Phone: (20 sources) gabapentin; Translations: [GABAPENTIN] Drug Allergy 9 Swelling [facility] Work Phone: (20 sources) SUMAtriptan; Translations: [SUMATRIPTAN] Drug Allergy 7 Other [facility] (13 sources) topiramate Drug Allergy 3 Swelling [facility] (12 sources) SUMAtriptan; Translations: [sumatriptan succinate] Drug Allergy 3 Other [facility] (20 sources) predniSONE; Translations: [PREDNISONE] Drug Allergy 4 Mental Status Change [facility] (1 source) SUMAtriptan Drug Allergy 5 [facility] Repository (1 source) topiramate Drug Allergy 5 [facility] Repository Medications Current Medications Medication Drug Class(es) [...] 1 tablet by yarely th twice daily. ascorbic acid 500 mg oral tablet (11 sources) Vitamin C Start: 3 take 1 tablet by mouth once daily Ascorbic Acid (Vitamin C) (Vitamin C) 500 MG tablet Active 500 MG PO DAILY@0800 June 23, 2013 12:00am aspirin 81 mg delayed [...] 1 TAB tablet Active 1 TABLET PO DAILY@0800 June 23, 2013 12:00am calcium chloride 0.0014 meq/ml [...] capsule Start: 02-22-2019 take 2 capsules by m out twice daily cevimeline (EVOXAC) 30 mg ORAL capsule Take 60 mg by mouth twice daily. 0 02/22/2019 Active Start: 02-22-2019 cevimeline (Ev oxac) 30 MG capsule every 12 hours. 0 02/22/2019 Active Start: 06-23-2013 take 1 capsule by mo ut three times daily Cevimeline (Evoxac) 30 MG [...] 23, 2013 12:00am take 1 tablet by yarely th once daily Cholecalciferol, Vitamin D3, (VITAMIN D) 1,000 unit tab Take 1,000 Units by mouth once daily. Active End: 04-05-2023 take 1 tablet by mouth in the morning cholecalciferol (Vitamin D-3) 25 MCG (1000 UT) tablet Take 2,000 Units by mouth in the morning. 0 04/05/2023 Discontinued (Ineffective) take 1000 [IU] by mo uth once daily Cholecalciferol (VITAMIN D3 PO) Take 1,000 Units by mouth daily 0 Active Cholecalciferol (VITAMIN D3 PO) Take 1,000 Units by mouth 0 Active Comment on above: Take 1,000 Units by mouth once daily. citalopram 20 mg oral tablet (20 sources) Serotonin Reuptake Inhibitor Start: 07-23-2022 citalopram (CeleXA) 20 MG tablet daily. 0 07/23/2022 Active Start: 06-23-2013 take 3 tablets by mo uth once daily Citalopram (Celexa) 10 MG tablet [...] above: Take 1 tablet by yarely th three times daily. diclofenac sodium 50 mg [...] 03/22/2025 05/07/2025 Discontinued 21 day ethinyl estradiol 0.725716 mg/hr / etonogestrel 0.005 mg/hr vaginal system [...] on above: Take 1 capsule by mo [facility] daily at bedtime for 90 days. Take 1 capsule by mo [facility] daily at bedtime for 60 days. Take 1 capsule by mo [facility] three times a day for 180 days. [...] Start: 01-07-2022 take 1 capsule by mo [facility] once daily hydroCHLOROthiazide (MICROZIDE) 12.5 MG capsule [...] 1 tablet by yarely th twice daily. 4 ml labetalol hydrochloride 5 mg/ml cartridge (1 source) beta-Adrenergic Osei Start: 10-13-2019 labetalol (NORMODYNE;TRANDATE) injection 5 mg labetalol (NORMODYNE;TRANDATE) injection 10 mg (1 source) Start: 11-18-2021 labetalol (NORMODYNE;TRANDATE) injection 10 mg leflunomide 20 mg oral tablet (20 sources) Antirheumatic Agent Start: 07-15-2022 leflunomide (Arava) 20 MG tablet daily. 0 07/15/2022 Active Start: 09-10-2021 take 2 tablets by mo uth once daily leflunomide (ARAVA) 10 mg tablet Take 2 tablets by mouth once daily. 09/10/2021 Active Comment on above: Take 2 tablets by mo [facility] once daily. leucovorin 15 mg oral tablet (12 sources) Folate Analog Start: 06-23-2013 take 15 mg by mouth every week Leucovorin Calcium Active 15 MG PO EVERY WEEK June 23, 2013 12:00am Apatvjbgc-E4-Fch57-Al gal Oil (Metanx Capsule) 1 EACH capsule (11 sources) Start: 06-23-2013 Ovymjizmt-T6-Syb02-A lgal Oil (Metanx Capsule) 1 EACH capsule Active 1 EACH PO DAILY June 23, 2013 7:50am Start: 06-23-2013 Nejbnttoj-U7-R xa38-Ebiog Oil (Metanx Capsule) 1 EACH capsule Active 1 EACH PO DAILY June 22, 2013 11:00pm Start: 06-23-2013 Ooptamyqs-O9-B kk85-Uqnbt Oil (Metanx Capsule) 1 EACH capsule Active 1 EACH PO DAILY June 23, 2013 12:00am levothyroxine sodium 0.088 mg oral tablet (20 sources) l-Thyroxine Start: 03-08-2023 End: 10-02-2024 levothyroxine (SYNTHROID) 88 mcg tablet Indications: Acquired hypothyroidism Take 1/2 tablet 3 days a week and whole tablet rest of the week. 90 tablet 3 10/03/2024 Active Start: 02-04-2018 [facility] 1 [facility] daily levothyroxine (Synthroid, Levoxyl) 88 MCG tablet Indications: Hypothyroidism Take 88 mcg by mouth daily. 0 05/20/2022 Active Start: 06-23-2013 take 75 ug by mouth once daily Levothyroxine Active 75 MCG PO DAILY June 23, 2013 12:00am Comment on above: Take 1 tablet by yarely daily before breakfast. Take 1/2 tablet 3 [...] 1 tablet by yarely th twice daily. potassium nitrate 0.05 mg/mg / [...] Supplies (CareTouch CPAP & BIPAP Hose) misc (9 sources) Respiratory Ther apy Supplies (CareTouch CPAP & BIPAP Hose) misc Indications: Obstructive Sleep Apnea Syndrome 12-20 cm [...] Start: 02-23-2014 take 1 tablet by yarely th twice daily sulfaSALAzine (AZULFIDINE) 500 mg tablet Indications: RLQ abdominal pain , Upper respiratory infection Take 1 tablet by mouth twice daily. 02/23/2014 Active Start: 02-23-2014 sulfaSALAzine (AZULFIDINE) 500 MG tablet Take 500 mg by mouth 0 02/23/2014 Active take 2 tablets by mo ut twice daily sulfaSALAzine (AZULFIDINE) 500 MG tablet [...] Take 1 tablet by yarely twice daily. ursodiol 300 mg oral capsule [...] Discontinued Start: 08-28-2022 take 4 tablets by [facility] once daily atorvastatin (LIPITOR) 10 mg tablet [...] Start: 02-04-2018 take 4 tablets by mo uth once daily atorvastatin (LIPITOR) 10 MG tablet [...] 2 tablets by mo uth once daily. Take 4 tablets by mo uth once daily. [facility] ceFAZolin 2000 mg injection [...] oral tablet (4 sources) Tetracycline-class Drug Start: 023 take 1 tablet by mouth twice daily doxycycline 20 mg tablet Take 1 tablet by mouth twice daily. 0 03/08/2023 Active Comment on above: Take 1 tablet by yarely th twice daily. enteric contrast (will be provided with radiology test) (3 sources) Start: End: enteric contrast (will be provided with radiology [...] take 1 capsule by mouth once daily xxkhq-fx-2-kci-wez-hfhxobo-ast (KRILL OIL) 1,200-629-32-50 mg cap Take 1,000 mg by mouth [...] by mout h every 12 hours. nystatin [id number] unt/ml oral suspension (5 sources) Polyene Antifungal Start: 2 End: 3 take 5 mL by mouth three times daily, then take 5 mL by mouth three times daily nystatin (Mycostatin) [id number] UNIT/ML suspension Indications: Oropharyngeal Candidiasis Swish and spit 5 mL (500,000 Units) 3 times daily. Swish and spit 5 mLs by mouth three times daily for 10 days. 150 mL 1 09/10/2022 12/02/2022 Discontinued (Therapy completed) ondansetron 4 mg oral tablet (8 sources) Serotonin-3 Receptor Antagonist Start: 2 End: take 1 tablet by mouth every eight [...] (8 sources) Patient encounter status; Translations: [Other terminal block assembler (current) drug therapy] Episodic Other aftercare (1 source) Other terminal block assembler (current) drug therapy; Translations: [Medication management] Onset: 5 Episodic Other connective tissue disease (2 sources) Arthrodesis status; Translations: [Arthrodesis status] Onset: 5 Episodic Other endocrine disorders (20 [...] (1 source) Polyneuropathy, unspecified; Translations: [Neuropathy] Onset: Chronic Other nervous system disorders (1 source) [...] intervertebral disc without myelopathy] Onset: 5 Chronic Spondylosis; intervertebral disc disorders; other back problems [...] unspecified] Onset: 7 Resolved: 6 08-11-2016 Episodic Urinary tract infections (2 sources) Urinary tract infectious disease; Translations: [Urinary tract infection, site not specified] Onset: 5 01-25-2025 Episodic Results Test Name Value Interpretation Reference Range Facility Orthopedic Visit Reporton Orthopedic Visit Report [facility] [address] [place] [address] OFFICE VISIT Date of Service: 07/24/25 MR#: [id number] Acct: [id number] Name: SANTOS ALLAN FRANCI Rep #: [id number] : 1965 Provider: Dr. Tobin Bauman MD Age/Sex: 59/F Location: [facility] Status: Signed Intake Vital Signs 04/20/25 08:26 07/10/25 18:33 Height 5 ft 6 in 5 ft 6 in Intake Visit Reasons: lumbar spine Accompanied by: Self Is patient in pain?: Yes Pain scale (1-10): 5 Allergies sumatriptan (From Imitrex) Adverse Reaction (Intermediate, Verified 07/24/25 08:06) Other sumatriptan succinate (From Imitrex) Adverse Reaction (Intermediate, Verified 07/24/25 08:06) Other Medications ???Medication ???Instructions ???Recorded ???Confirmed ???Type calcium 600 mg (as 1 tab PO DAILY@0800 06/23/1307/24 History carbonate)-vitamin D3 20 mcg (800 unit) tablet (Caltrate with Vitamin D3) cholecalciferol (vitamin D3) 50 2,000 unit PO DAILY 06/23/1307/24 History mcg (2,000 unit) tablet (Vitamin D3) eletriptan 20 mg tablet (Relpax) 20 mg PO DAILY PRN MIGRAINE 07/24/25 History cevimeline 30 mg capsule (Evoxac) 30 mg PO BID 08/09/23 07/24/25 Hi story hydroxychloroquine 200 mg tablet 200 mg PO BID 08/09/23 07/24/25 Hi story (Plaquenil) leflunomide 20 mg tablet 20 mg PO DAILY 08/09/23 07/24/25 H istory lisinopril 20 mg tablet 20 mg PO DAILY 08/09/23 07/24/25 H istory metoprolol tartrate 25 mg tablet 12.5 mg PO DAILY 08/09/23 07/24/25 History multivitamin 1 tab PO DAILY 08/09/23 07/24/25 H istory omeprazole 20 mg capsule,delayed 20 mg PO DAILY 08/09/23 07/24/25 H istory release pravastatin 80 mg tablet 80 mg PO QHS 08/09/23 07/24/25 His tory sulfasalazine 500 mg tablet 1 g PO BID 08/09/23 07/24/25 Histo ry gabapentin 400 mg capsule 400 mg PO TID 11/08/24 07/24/25 Hi story levothyroxine 44 mcg capsule 44 mcg PO MOWEFR 11/08/24 07/24/25 History citalopram 20 mg tablet 30 mg (1.5 x 20 mg) PO DAILY 90 07/24/25 Rx days #135 tabs gabapentin 100 mg capsule 100 mg PO TID 04/05/25 07/24/25 Hi story tirzepatide 7.5 mg/0.5 mL 10 mg subcut TH 04/05/25 07/24/25 History subcutaneous pen injector (Mounjaro) aripiprazole 2 mg tablet 4 mg PO QHS 04/10/25 07/24/25 Hist ory estradiol 0.01% (0.1 mg/gram) 1 applic vaginal MOTH 06/26/2508/07 History vaginal cream hydrochlorothiazide 12.5 mg capsule 12.5 mg PO DAILY 06/26/2507/24 History potassium chloride 10 mEq 10 meq PO BID 06/26/25 07/24/25 Hi story tablet,extended release acetaminophen 500 mg tablet 1,000 mg (2 x 500 mg) PO Q6H #30 1 07/24/25 Rx tabs meloxicam 15 mg tablet 15 mg PO DAILY #30 tabs 07/11/25 1 09/23/24 Rx PFSH Medical History Alcohol use Former smoker [...] and ibuprofen use. HPI lumbar spine Details: This documentation accurately reflects the service provided and the (more content not included)... Normal [facility] Basic Metabolic Profile (BMP )on 07-11-2025 BUN/CRE 7.6 RATIO Low 07-02 [facility] Comment on above: Performed By: #### L 100.0100, L500.2500 #### [facility] [address] [place], [place], [address] Calcium [Mass/Vol] 8.6 mg/dL Normal 7.6-11.0 [facility] Comment on above: Performed By: #### L 100.0100, L500.2500 #### [facility] [address] [place], [address] Chloride [Moles/Vol] 102 mmol/L Normal 98-108 [facility] Comment on above: Performed By: #### L 100.0100, L500.2500 #### [facility] [address] [place], [address] CO2 [Moles/Vol] 27.7 mmol/L Normal 21.0-32.0 [facility] Comment on above: Performed By: #### L 100.0100, L500.2500 #### [facility] [address] [place], [address] Creatinine [Mass/Vol] 0.65 mg/dL Low 0.70-1.20 [facility] Comment on above: Performed By: #### L 100.0100, L500.2500 #### [facility] [address] [place], [address] ECRCL 102.32 ml/min Normal 50-250 [facility] Comment on above: Performed By: #### L 100.0100, L500.2500 #### [facility] [address] [place], [address] GAP 8 Normal 5-15 [facility] Comment on above: Performed By: #### L 100.0100, L500.2500 #### [facility] [address] [place], [address] GFR/1.73 sq M.predicted among non-blacks MDRD (S/P/Bld) [Vol rate/Area] 103 mL/min/{1.73_m2} Normal >60 [facility] Comment on above: Result Comment: mL/m in/1.73m2 CKD-EPI Creatinine Equation (2020) Performed By: #### L 100.0100, L500.2500 #### [facility] [address] [place], [address] Glucose [Mass/Vol] 81 mg/dL Normal 70-99 [facility] Comment on above: Performed By: #### L 100.0100, L500.2500 #### [facility] [address] [place], [address] Potassium [Moles/Vol] 3.8 mmol/L Normal 3.3-5.1 [facility] Comment on above: Performed By: #### L 100.0100, L500.2500 #### [facility] [address] [place], [address] Sodium [Moles/Vol] 138 mmol/L Normal 133-145 [facility] Comment on above: Performed By: #### L 100.0100, L500.2500 #### [facility] [address] [place], [address] Urea nitrogen [Mass/Vol] 5 mg/dL Normal 4-19 [facility] Comment on above: Performed By: #### L 100.0100, L500.2500 #### [facility] [address] [place], [address] CBC W/Diff, Automatedon 10-2 Absolute Lymph 2.29 X10 3/uL Normal 0.83-4.51 [facility] Comment on above: Performed By: #### L 100.0100, L500.2500 #### [facility] [address] [place], [address] Absolute Neut 3.4 X10 3/uL Normal 2.0-7.7 [facility] Comment on above: Performed By: #### L 100.0100, L500.2500 #### [facility] [address] [place], [address] Basophils/100 WBC (Bld) 0.5 % Normal 0-1 [facility] Comment on above: Performed By: #### L 100.0100, L500.2500 #### [facility] [address] [place], [address] Eosinophils/100 WBC (Bld) 2.2 % Normal 0-5 [facility] Comment on above: Performed By: #### L 100.0100, L500.2500 #### [facility] [address] [place], [address] Erythrocyte distribution width (RBC) [Ratio] 11.9 % Normal 11.6-14.6 [facility] Comment on above: Performed By: #### L 100.0100, L500.2500 #### [facility] [address] [place], [address] Hematocrit (Bld) [Volume fraction] 34.7 % Low 37-47 [facility] Comment on above: Performed By: #### L 100.0100, L500.2500 #### [facility] [address] [place], [address] Hemoglobin (Bld) [Mass/Vol] 11.2 g/dL Low 12.0-15.0 [facility] Comment on above: Performed By: #### L 100.0100, L500.2500 #### [facility] [address] [place], [address] IG% 0.300 Normal 0.0-0.9 [facility] Comment on above: Result Comment: IG% - Immature Granulocytes (promyelocytes, myelocytes and metamyelocytes) > 1% indicates that a LEFT SHIFT is Present. Performed By: #### L 100.0100, L500.2500 #### [facility] [address] [place], [address] Lymphocytes/100 WBC (Bld) 36.4 % Normal 19-41 [facility] Comment on above: Performed By: #### L 100.0100, L500.2500 #### [facility] [address] [place], [address] MCH (RBC) [Entitic mass] 30.5 pg Normal 27.0-32.0 [facility] Comment on above: Performed By: #### L 100.0100, L500.2500 #### [facility] [address] [place], [address] MCHC (RBC) [Mass/Vol] 32.3 g/dL Normal 32-36 [facility] Comment on above: Performed By: #### L 100.0100, L500.2500 #### [facility] [address] [place], [address] MCV (RBC) [Entitic vol] 94.6 fL Normal 81-99 [facility] Comment on above: Performed By: #### L 100.0100, L500.2500 #### [facility] [address] [place], [address] Monocytes/100 WBC (Bld) 6.8 % Normal 0-10 [facility] Comment on above: Performed By: #### L 100.0100, L500.2500 #### [facility] [address] [place], [address] Neutrophils/100 WBC (Bld) 53.8 % Normal 47-70 [facility] Comment on above: Performed By: #### L 100.0100, L500.2500 #### [facility] [address] [place], [address] Nucleated RBC (Bld) [#/Vol] 0 10*3/uL Normal 0-5 [facility] Comment on above: Performed By: #### L 100.0100, L500.2500 #### [facility] [address] [place], [address] Platelet mean volume (Bld) [Entitic vol] 9.7 fL Normal 6.2-12.0 [facility] Comment on above: Performed By: #### L 100.0100, L500.2500 #### [facility] [address] [place], [address] Platelets (Bld) [#/Vol] 197 10*3/uL Normal 150-450 [facility] Comment on above: Performed By: #### L 100.0100, L500.2500 #### [facility] [address] [place], [address] RBC (Bld) [#/Vol] 3.67 10*6/uL Low 4.2-5.4 [facility] Comment on above: Performed By: #### L 100.0100, L500.2500 #### [facility] [address] [place], [address] RDW SD 41.8 fl Normal 35.1-43.9 [facility] Comment on above: Performed By: #### L 100.0100, L500.2500 #### [facility] [address] [place], [address] WBC (Bld) [#/Vol] 6.3 10*3/uL Normal 4.4-11.0 [facility] Comment on above: Performed By: #### L 100.0100, L500.2500 #### [facility] [address] [place], [address] Discharge Instructionon 06-14 Discharge Instruction [facility] Medical Records Department [address] [place] [address] Instructions for Home/Discharge Instructions 07/11/25 1043 MR#: [id number] Acct: [id number] Name: SANTOS ALLAN FRANCI Rep #: [id number] : 1965 59 From: Saundra POLLOCK PCP: Dr. Ana Bolaños MD Status:REG SDC Discharge Instructions DC O2, CPAP, BIPAP needs Home O2 Discharge instructions: No Follow Up Care Test Results: Test results from this visit will be discussed in further detail at your follow-up appointment, if applicable. Discharge Plan Admission Attending Provider: Tobin Bauman Primary Care Provider: Ana Bolaños Consulting Providers: Andrzej Abraham Instructions Patient Instructions: Lumbar Fusion Dc Additional Instructions / Restrictions: Keep Tegaderm and gauze clean and dry. If Tegaderm is intact, okay to shower. After 5 days remove Tegaderm and gauze and cover with a Band-Aid. Replace Band-Aid daily thereafter. No bending lifting or twisting. Follow-up in clinic in 2 weeks. Print Language: Ethiopian Discharge Orders/Prescriptions Prescriptions: New acetaminophen 500 mg Tablet 1,000 mg PO Q6H Qty: 30 0RF methocarbamol 500 mg Tablet 750 mg PO TID PRN (Reason: pain/spasms) Qty: 30 0RF meloxicam 15 mg Tablet 15 mg PO DAILY Qty: 30 0RF oxycodone 5 mg Tablet 2.5 - 5 mg PO Q6H PRN (Reason: pain) 7 Days Qty: 28 0RF sennosides-docusate sodium [Stimulant Laxative Plus] 8.6-50 mg Tablet 2 tab PO BID PRN (Reason: constipation) Qty: 14 0RF Continued leflunomide 20 mg tablet 20 mg [...] MOUTH TWICE A DAY FOR 90 DAYS multivitamin Tablet 1 tab PO DAILY Mounjaro 7.5 mg/0.5 mL pen injector 10 mg subcut TH Patient Comments: LAST DOSE 06/28/25 FOR SURGERY 07/10/25 gabapentin 100 mg capsule 100 mg PO TID eletriptan [Relpax] 20 MG tablet 20 mg PO DAILY PRN cholecalciferol (vitamin D3) [Vitamin D3] 2,000 UNIT tablet 2,000 unit PO DAILY calcium carbonate-vitamin D3 [Caltrate with Vitamin D3] 1 TAB tablet 1 tab PO DAILY@0800 cevimeline [Evoxac] 30 mg capsule 30 mg PO BID aripiprazole 2 mg tablet 4 mg PO QHS gabapentin 400 mg capsule 400 mg PO TID levothyroxine 44 mcg capsule 44 mcg PO MOWEFR estradiol 0.01 % (0.1 mg/gram) cream 1 applic vaginal MOTH potassium chloride 10 mEq tablet extended release 10 meq PO BID hydrochlorothiazide 12.5 mg capsule 12.5 mg PO DAILY citalopram 20 mg tablet 30 mg PO DAILY 90 Days Qty: 135 1RF Discontinued hydrocodone-acetaminophen 5-325 mg tablet 0.5 - 1 tab PO QD-BID PRN (Reason: pain) cyclobenzaprine 10 mg tablet 10 mg PO BID PRN (Reason: muscle spasm) Referrals / Follow Up: Ana Bolaños MD [Primary Care Provider, Internal Medicine] Disposition Disposition (needs filled in before D/C Order can be placed): Home, Self Care 07/11/25 1043 Saundra POLLOCK CC: Dr. Ana Bolaños MD; Dr. Andrzej Abraham MD Signed Normal [facility] Lumbar Spine 2 or 3 Viewson 07-11-2025 Lumbar Spine 2 or 3 Views [facility] Imaging Services [address] [place] [address] Lumbar Spine 2 or 3 Views MR#: [id number] Acct: [id number] Name: SANTOS ALLAN FRANCI Rep #: [id number] : 1965 F 59 From: Zane fry MD PCP: Dr. Ana Bolaños MD Status: [facility] Study: Lumbar Spine 2 or 3 Views Date of Exam: Exam# [id number] Ordering Dr: Saundra Randle PROCEDURE: LUMBAR SPINE 2 OR 3 VIEWS 07/11/2025 REASON FOR EXAM: S/P TLIF TECHNIQUE: Procedure Code: RADSPLL Modality: DX Procedure: LUMBAR SPINE 2 OR 3 VIEWS COMPARISON: MRI on 04/13/2025. FINDINGS: Prior decompression and fusion with unremarkable transpedicular screws at L5-S1. Unremarkable disc spacer at L5-S1. Mild degenerative levoscoliosis apex at L3. There are diffuse spondylotic changes. Findings are demonstrated to by diffuse disc space narrowing, osteophyte formation and degenerative endplate sclerosis. There is diffuse facet joint arthropathy with secondary bilateral neural foramina narrowing. No fracture or dislocation is seen. No aggressive lytic or blastic bony lesion is noted. Mildly exaggerated lumbar lordosis. RAD/Lumbar Spine 2 or 3 Views IMPRESSION: Prior decompression and fusion with unremarkable transpedicular screws at L5-S1. Unremarkable disc spacer at L5-S1. Reading Location: [place] [address] CC: PHILL Vasquez; Dr. Ana Bolaños MD Furniture Sales Associate: Signed Normal [facility] Bedside Glucoseon 07-10-2025 FINGERSTICK GLU 79 mg/dL Normal 74-106 [facility] Comment on above: Result Comment: MARY FISH OF PATIENT CARE PER NURSING PROTOCOL Performed By: #### L 501.080 ####[facility] [address] [facility] [place], [address] Consultation - Hospitaliston 07-10-2025 Consultation - Hospitalist [facility] Medical Records Department [address] [place] [address] Consultation - Hospitalist 07/10/25 1849 MR#: [id number] Acct: [id number] Name: SANTOS ALLAN FRANCI Rep #: [id number] : 1965 59 From: Asad Hamilton DO PCP: Dr. Ana Bolaños MD Status:REG [facility] Location: ME3 [id number] Assessment Plan Assessment/Plan (1) Lumbar stenosis with neurogenic claudication: PLAN: Plan Patient is a 59-year-old female who presented to [facility] on 07/10/2025 for planned lumbar fusion procedure. Medicine consulted postoperatively for medical management. 1. L5-S1 disc degeneration with foraminal stenosis ??? Orthopedic surgery primary. S/p L5-S1 transforaminal lumbar interbody fusion procedure with Dr. Bauman on 07/10. Tolerated procedure well, no intraoperative complications noted. Postoperative pain control, DVT prophylaxis and further management per orthopedics. Follow-up a.m. labs. PT/OT/case management consulted. 2. Hypertension/hyperlipidemia ??? Normotensive postoperatively. Will continue home Lopressor, lisinopril and hydrochlorothiazide with hold parameters. Continue home statin. 3. Generalized anxiety disorder/bipolar 2 disorder ??? Follows with psychiatry. Continue home aripiprazole. 4. Sjogren's disease, autoimmune polyarthropathy ??? Unclear from records on specific diagnosis with regards to her autoimmune polyarthropathy. Not in acute exacerbation. Continue home leflunomide, sulfasalazine, hydroxychloroquine and cevimeline. 5. GERD ??? Continue home PPI. 6. Hypothyroidism ??? Continue home Synthroid. DVT prophylaxis: Will defer to orthopedics Total clinical time spent by myself addressing the patient's medical issues, reviewing all the data, and collaborating with patient's care team: 42 minutes. HPI Consult Data Date of Consult: 07/10/25 HPI Narrative Reason for Consultation: Postoperative medical management HPI Narrative: SANTOS ALLAN, is a 59 F who presented to [facility] on 07/10/2025 for planned orthopedic procedure. Medicine consulted postoperatively for medical management. Patient had L5-S1 transforaminal lumbar interbody fusion procedure done with Dr. Bauman today. Tolerated procedure well, no intraoperative complications noted. I saw the patient at bedside this evening postoperatively. Patient was mildly fatigued appearing but otherwise sitting back comfortably in bed, conversing normally, in no acute distress. She reported mild low back pain currently that was tolerable. She denied any other acute concerns at this time. [facility] Medical History Alcohol use Former smoker History [...] 600 mg (as 1 tab PO DAILY@0800 06/23/1307/09 08:00 History carbonate)-vitamin D3 20 mcg (800 unit) tablet (Caltrate with Vitamin D3) cholecalciferol (vitamin D3) 50 2,000 unit PO DAILY 06/23/1307/09 10:00 History mcg (2,000 unit) tablet (Vitamin D3) eletriptan 20 mg tablet (Relpax) 20 mg PO DAILY PRN MIGRAINE Unknown History cevimeline 30 mg capsule (Evoxac) 30 mg PO BID 08/09/23 07/09/25 23 :00 History hydroxychloroquine 200 mg tablet 200 mg PO BID 08/09/23 07/09/25 23 :00 History (Plaquenil) leflunomide 20 mg tablet 20 mg PO DAILY 08/09/23 07/09/25 1 0:00 History lisinopril 20 mg tablet 20 mg PO DAILY 08/09/23 07/09/25 1 0:00 History metoprolol tartrate 25 mg tablet 12.5 mg PO DAILY 08/09/23 07/10/25 06:30 History multivitamin 1 tab PO DAILY 08/09/23 07/09/25 1 0:00 History omeprazole 20 mg capsule,delayed 20 mg PO DAILY 08/09/23 07/10/25 0 6:30 History release pravastatin 80 mg tablet 80 mg PO QHS 08/09/23 07/09/25 23: 00 History sulfasalazine 500 mg tablet 1 g PO BID 08/09/23 07/09/25 23:00 History cyclobenzaprine 10 mg tablet 10 mg PO BID PRN muscle spasm 09/1507/09/25 23:00 History gabapentin 400 mg capsule 400 mg PO TID 11/08/24 07/09/25 06 :30 History levothyroxine 44 mcg capsule 44 mcg PO MOWEFR 11/08/24 07/10/25 06:30 History hydrocodone-acetaminophen 5-325mg 0.5 - 1 tab PO QD-BID PRN pain 07/07/25 History 5mg-325mg citalopram 20 mg tablet 30 m (more content not included)... Normal [facility] Lumbar Spine 2 or 3 Viewson 07-10-2025 Lumbar Spine 2 or 3 Views [facility] Imaging Services [address] [place] [address] Lumbar Spine 2 or 3 Views MR#: [id number] Acct: [id number] Name: SANTOS ALLAN Rep #: [id number] : 1965 F 59 From: James Gramajo MD PCP: Dr. Ana Bolaños MD Status: DIS [facility] Study: Lumbar Spine 2 or 3 Views Date of Exam: Exam# [id number] Ordering Dr: Tobin Bauman MD PROCEDURE: LUMBAR SPINE 2 OR 3 VIEWS 07/10/2025 REASON FOR EXAM: TRANSFORAMINAL LUMBAR INTERBODY FUSION L5-S1 TECHNIQUE: Procedure Code: RADSPLL Modality: DX Procedure: LUMBAR SPINE 2 OR 3 VIEWS COMPARISON: 07/11/2025 FINDINGS: This is an administrative dictation for intraoperative fluoroscopy. Please see the procedure report for details. 9 fluoroscopic images are provided. Fluoroscopy time was 150.4 seconds. Cumulative dose was 81.11 mGy. RAD/Lumbar Spine 2 or 3 Views IMPRESSION: Fluoroscopy as above. Reading Location: [facility] CC: Dr. Tobin Bauman MD; Dr. Ana Bolaños MD Furniture Sales Associate: Signed [facility] MR/POSTOP.[facility] 07-10-2025 MR/POSTOP.[facility] Medical Records Department [address] [place] [address] Anesthesia Postop Eval I 07/10/25 1720 MR#: [id number] Acct: [id number] Name: SANTOS ALLAN FRANCI Rep #: [id number] : 1965 59 From: Esthela Greer CRNA PCP: Dr. Ana Bolaños MD Status:REG SDC Y Race: C Location: [place] [address] Anesthesia: Postop Eval I Current Vital Signs Temperature: 97.3 F Pulse Rate: 96 Blood Pressure: 98/64 Respiratory Rate: 16 Pulse Ox: 97 Oxygen Delivery Method: Room Air Assessment Airway patent: Yes Spontaneous unlabored respirations: Yes Mental status: Awake and Calm nausea: No Vomiting: No Anesthesia Complication: No Fluid Hydration Crystalloid volume administer (ml): 1,300 Total IV fluid infused: 1,300 Progress Note Anesthesia document: Postop Eval 1 completed: Yes 07/10/25 1721 Date Esthela Greer STRUCTURES ASSEMBLER Cosigner Signature: Date CC: Signed Normal [facility] MR/[id number] 07-10-2025 MR/POSTOPAN2 [facility] Medical Records Department [address] [place] [address] Anesthesia Postop Eval II 07/10/25 1810 MR#: [id number] Acct: [id number] Name: SANTOS ALLAN FRANCI Rep #: [id number] : 1965 59 From: Alex Chen MD PCP: Dr. Ana Bolaños MD Status:REG [facility] Y Race: C Location: [place] [address] Anesthesia Postop Eval I Sum Postop Eval Completion status Anesthesia document: Postop Eval 1 completed: Yes Anesthesia Postop Eval I Summary Anesthesia Postop Eval I Summary: Anesthesia Postop Eval I: Assessment Summary Airway patent Yes 07/10/25 17:21 STRUCTURES ASSEMBLER.SKOBY Spontaneous unlabored Yes 07/10/25 17:21 STRUCTURES ASSEMBLER.SKOBY respirations Mental status Awake,Calm 07/10/25 17:21 STRUCTURES ASSEMBLER.SKOBY nausea No 07/10/25 17:21 STRUCTURES ASSEMBLER.SKOBY Vomiting No 07/10/25 17:21 STRUCTURES ASSEMBLER.SKOBY Anesthesia Postop Eval I: Fluid Summary Crystalloid volume administer 1,300 07/10/25 17:21 STRUCTURES ASSEMBLER.SKOBY (ml) Colloids volume administered ( ml) Blood Product volume administered (ml) Total IV fluid infused 1,300 07/10/25 17:21 STRUCTURES ASSEMBLER.SKOBY Anesthesia Postop Eval I: Summary Notes Anesthesia Complication No 07/10/25 17:21 STRUCTURES ASSEMBLER.SKOBKristy Anesthesia Complication Comment: Post-operative progress note Anesthesia: Postop Eval II Evaluation Mental status: Awake and Calm Pain Level: 1 nausea: No Vomiting: No Complications Anesthesia Complication: No 07/10/25 1810 Date Alex Chen MD Cosigner Signature: Date CC: Signed Normal [facility] Operative Reporton 5 Operative Report [facility] Medical Records Department [address] [place] [address] Operative Report 07/10/25 1713 MR#: [id number] Acct: [id number] Name: SANTOS ALLAN FRANCI Rep #: [id number] : 1965 59 From: Tobin Bauman MD PCP: Dr. Ana Bolaños MD Status:[facility] Location: [place] [address]1 Procedures Musculoskeletal 20xxx-29xxx: Other Procedure See Report Operative Report (Standard) Operative Information Date of Procedure: 07/10/25 Pre-Operative Diagnosis: L5-S1 disc degeneration with foraminal stenosis Post-Operative Diagnosis: Same Surgery/Procedure Performed: L5-S1 transforaminal lumbar interbody fusion chief building inspector: Yes Plasma Table Operator: Saundra Randle Tasks completed by activity assistant: Closing, Removing tissue, Implanting device, Hemostasis: Electrocautery and Retracting Type of Anesthesia: General RN Documented Start/Stop Times: Operation Date: 07/10/25 14:30 Case Time Into Pre-Op 07/10/25 11:26 Anesthesia Start 07/10/25 14:26 Into Room 07/10/25 14:26 Procedure Start 07/10/25 14:59 Procedure End 07/10/25 17:01 Anesthesia End 07/10/25 17:13 Out of Room 10/28/25 17:13 Procedure Start Time: 14:59 Procedure Stop Time: 17:01 Select all DRAINS/GRAFTS/IMPLANTS that apply: Graft Graft details: Allograft cancellous chips, morselized autograft from lamina and facet and Implanted device Implanted device details: DePuy XPac TLIF cage, Viper prime pedicle screw instrumentation Estimated Blood Loss: 30 cc Specimen collected: No Description of surgery: Preoperative diagnosis: L5-S1 disc degeneration with foraminal stenosis Postoperative diagnosis: Same Name of procedure: L5-S1 transforaminal lumbar interbody fusion (TLIF), minimally invasive right side approach, percutaneous pedicle screw instrumentation. . L5-S1 posterior spinal fusion and interbody fusion [id number] ??? L5-S1 posterior pedicle screw instrumentation . L5-S1 insertion of cage . Local autograft . Cancellous allograft with DBX Attending Surgeon: Dr. Tobin Bauman Estimated blood loss: 30 mL Anesthesia: GA Complications: None Implants: DePuy Synthes X-PAC TLIF cage, Viper prime screws Indications: Patient is a 59-year-old female who has had a history of low back pain that radiates into right worse than left lower extremity. X-rays and MRI revealed L5-S1 disc degeneration with bilateral lateral recess and foraminal stenosis. Patient was explained all options of treatment which included continued nonoperative treatment measures like rest physical therapy, epidural steroidal injections. After a prolonged period of of nonoperative treatment, patient elected to undergo surgical decompression fusion since the symptoms severely affected her quality of life. All risks and benefits associated with the procedure were explained to the patient. The risks include but are not limited to infection, bleeding, injury to nerves and vessels, persistent paresthesia, persistent pain, dural tear, need for further procedures, adjacent segment degeneration, pseudoarthrosis, hardware failure, etc. Procedure: The patient was identified in the preoperative holding suite using unique patient identifiers. Skin was marked, consent was reviewed, and all questions were answered. The patient was then brought back to the operative room. A surgical timeout was performed to make sure correct procedure was being done on the correct patient and all operative room staff were on the same page. General endotracheal anesthesia was then given to the patient. Neuromonitoring leads were applied. The patient was then turned prone onto a Reyes table. The back was prepped and draped in usual fashion. IV antibiotic was given as preoperative antibiotic. A final timeout was then again done just before starting the procedure. C-arm AP view was then taken. C-arm was positioned in a way that L5 was centralized and superior endplate of L5 and was parallel to the beam. Spinous process was centered between the pedicles. Midline was marked with skin marker and lateral borders of the pedicles were also marked. Skin marker was also utilized to fredrick transversely across the middle of the pedicles at L5. 2 vertical incisions about 1 inch Extending below this line were taken about 1/2 inch lateral to the pedicle line. The fascia was also incised vertically approximately the same length. Finger dissection was utilized to palpate the superior articular process and facet joint of L5-S1 on the right side. Sequential tubes were docked on the facet joint and 60 mm length and 21 mm diameter tubular retractor was then placed and was attached to the arm attached to the OR table. Muscle tissue was removed with pituitaries and hemostasis was achieved with Bovie. Right inferior articular process of L5 and superior articular process of (more content not included)... Normal [facility] Orthopedic Visit Reporton Orthopedic Visit Report [facility] [address] [place] [address] OFFICE VISIT Date of Service: 07/03/25 MR#: [id number] Acct: [id number] Name: SANTOS ALLAN Rep #: [id number] : 1965 Provider: Dr. Tobni Bauman MD Age/Sex: 59/F Location: [facility] Status: Signed Intake Vital Signs 04/20/25 08:26 [...] BID 06/26/25 07/03/25 Hi story tablet,extended release [facility] Medical History Alcohol use Former smoker History [...] spine Details: (more content not included)... Normal [facility] MRSA/SAID NASAL SCREENon MRSA+SAID SCRN Reason for Exam: Ron celia MRSA MRSA Negative S. AUREUS S. aureus Negative Normal [facility] Comment on above: Performed By: #### M 100.651, L500.2500, L501.9985, L100.0100, BTSPAT ####[facility] [address] [place], [address] 12 Lead EKGon 06-27-2025 12 Lead EKG [facility] Cardiovascular Services [address] [place] [address] 12 Lead EKG 06/27/25 0701 MR#: [id number] Acct: [id number] Name: SANTOS ALLAN Rep #: [id number] : 1965 59 From: Luis Limon MD Attending Dr: Dr. Tobin Bauman MD Status: PRE SDC Ordering Dr: Tobin Bauman MD Date: 06/27/25 Location: [facility] Sex: F C Admitted: Test Reason : [...] No significant change was found Confirmed by LUIS LIMON MD ([id number]), videotape editor KRISTEN STAFFORD ([id number]) on 06/28/2025 6:28:50 AM Referred By: Tobin Bauman Confirmed By: LUIS LIMON MD 06/28/25 0628 Date Luis Limon MD CC: Dr. Tobin Bauman MD; Dr. Ana Bolaños MD Signed Normal [facility] Basic Metabolic Profile (BMP )on 06-27-2025 BUN/CRE 8.3 RATIO Low 07-02 [facility] Comment on above: Performed By: #### M 100.651, L500.2500, L501.9985, L100.0100, BTSPAT ####[facility] [address] [place], [address] Calcium [Mass/Vol] 9.6 mg/dL Normal 7.6-11.0 [facility] Comment on above: Performed By: #### M 100.651, L500.2500, L501.9985, L100.0100, BTSPAT ####[facility] [address] [place], [address] Chloride [Moles/Vol] 98 mmol/L Normal 98-108 [facility] Comment on above: Performed By: #### M 100.651, L500.2500, L501.9985, L100.0100, BTSPAT ####[facility] [address] [place], [address] CO2 [Moles/Vol] 29.9 mmol/L Normal 21.0-32.0 [facility] Comment on above: Performed By: #### M 100.651, L500.2500, L501.9985, L100.0100, BTSPAT ####[facility] [address] [place], [address] Creatinine [Mass/Vol] 0.57 mg/dL Low 0.70-1.20 [facility] Comment on above: Performed By: #### M 100.651, L500.2500, L501.9985, L100.0100, BTSPAT ####[facility] [address] [place], [address] GAP 11 Normal 5-15 [facility] Comment on above: Performed By: #### M 100.651, L500.2500, L501.9985, L100.0100, BTSPAT ####[facility] [address] [place], [address] GFR/1.73 sq M.predicted among non-blacks MDRD (S/P/Bld) [Vol rate/Area] 106 mL/min/{1.73_m2} Normal >60 [facility] Comment on above: Result Comment: mL/m in/1.73m2 CKD-EPI Creatinine Equation (2020) Performed By: #### M 100.651, L500.2500, L501.9985, L100.0100, BTSPAT ####[facility] [address] [place], [address] Glucose [Mass/Vol] 85 mg/dL Normal 70-99 [facility] Comment on above: Performed By: #### M 100.651, L500.2500, L501.9985, L100.0100, BTSPAT ####[facility] [address] [place], [address] Potassium [Moles/Vol] 4.1 mmol/L Normal 3.3-5.1 [facility] Comment on above: Performed By: #### M 100.651, L500.2500, L501.9985, L100.0100, BTSPAT ####[facility] [address] [place], [address] Sodium [Moles/Vol] 139 mmol/L Normal 133-145 [facility] Comment on above: Performed By: #### M 100.651, L500.2500, L501.9985, L100.0100, BTSPAT ####[facility] [address] [place], [address] Urea nitrogen [Mass/Vol] 5 mg/dL Normal 4-19 [facility] Comment on above: Performed By: #### M 100.651, L500.2500, L501.9985, L100.0100, BTSPAT ####[facility] [address] [place], [address] CBC W/Diff, Automatedon 10-1 Absolute Lymph 1.87 X10 3/uL Normal 0.83-4.51 [facility] Comment on above: Performed By: #### M 100.651, L500.2500, L501.9985, L100.0100, BTSPAT ####[facility] [address] [place], [address] Absolute Neut 2.2 X10 3/uL Normal 2.0-7.7 [facility] Comment on above: Performed By: #### M 100.651, L500.2500, L501.9985, L100.0100, BTSPAT ####[facility] [address] [place], [address] Basophils/100 WBC (Bld) 0.7 % Normal 0-1 [facility] Comment on above: Performed By: #### M 100.651, L500.2500, L501.9985, L100.0100, BTSPAT ####[facility] [address] [place], [address] Eosinophils/100 WBC (Bld) 0.0 % Normal 0-5 [facility] Comment on above: Performed By: #### M 100.651, L500.2500, L501.9985, L100.0100, BTSPAT ####[facility] [address] [place], [address] Erythrocyte distribution width (RBC) [Ratio] 12.2 % Normal 11.6-14.6 [facility] Comment on above: Performed By: #### M 100.651, L500.2500, L501.9985, L100.0100, BTSPAT ####[facility] [address] [place], [address] Hematocrit (Bld) [Volume fraction] 40.9 % Normal 37-47 [facility] Comment on above: Performed By: #### M 100.651, L500.2500, L501.9985, L100.0100, BTSPAT ####[facility] [address] [place], [address] Hemoglobin (Bld) [Mass/Vol] 13.6 g/dL Normal 12.0-15.0 [facility] Comment on above: Performed By: #### M 100.651, L500.2500, L501.9985, L100.0100, BTSPAT ####[facility] [address] [place], [address] IG% 0.200 Normal 0.0-0.9 [facility] Comment on above: Result Comment: IG% - Immature Granulocytes (promyelocytes, myelocytes and metamyelocytes) > 1% indicates that a LEFT SHIFT is Present. Performed By: #### M 100.651, L500.2500, L501.9985, L100.0100, BTSPAT ####[facility] [address] [place], [address] Lymphocytes/100 WBC (Bld) 42.1 % High 19-41 [facility] Comment on above: Performed By: #### M 100.651, L500.2500, L501.9985, L100.0100, BTSPAT ####[facility] [address] [place], [address] MCH (RBC) [Entitic mass] 30.8 pg Normal 27.0-32.0 [facility] Comment on above: Performed By: #### M 100.651, L500.2500, L501.9985, L100.0100, BTSPAT ####[facility] [address] [place], [address] MCHC (RBC) [Mass/Vol] 33.3 g/dL Normal 32-36 [facility] Comment on above: Performed By: #### M 100.651, L500.2500, L501.9985, L100.0100, BTSPAT ####[facility] [address] [place], [address] MCV (RBC) [Entitic vol] 92.5 fL Normal 81-99 [facility] Comment on above: Performed By: #### M 100.651, L500.2500, L501.9985, L100.0100, BTSPAT ####[facility] [address] [place], [address] Monocytes/100 WBC (Bld) 8.3 % Normal 0-10 [facility] Comment on above: Performed By: #### M 100.651, L500.2500, L501.9985, L100.0100, BTSPAT ####[facility] [address] [place], [address] Neutrophils/100 WBC (Bld) 48.7 % Normal 47-70 [facility] Comment on above: Performed By: #### M 100.651, L500.2500, L501.9985, L100.0100, BTSPAT ####[facility] [address] [place], [address] Nucleated RBC (Bld) [#/Vol] 0 10*3/uL Normal 0-5 [facility] Comment on above: Performed By: #### M 100.651, L500.2500, L501.9985, L100.0100, BTSPAT ####[facility] [address] [place], [address] Platelet mean volume (Bld) [Entitic vol] 9.6 fL Normal 6.2-12.0 [facility] Comment on above: Performed By: #### M 100.651, L500.2500, L501.9985, L100.0100, BTSPAT ####[facility] [address] [place], [address] Platelets (Bld) [#/Vol] 277 10*3/uL Normal 150-450 [facility] Comment on above: Performed By: #### M 100.651, L500.2500, L501.9985, L100.0100, BTSPAT ####[facility] [address] [place], [address] RBC (Bld) [#/Vol] 4.42 10*6/uL Normal 4.2-5.4 [facility] Comment on above: Performed By: #### M 100.651, L500.2500, L501.9985, L100.0100, BTSPAT ####[facility] [address] [place], [address] RDW SD 41.6 fl Normal 35.1-43.9 [facility] Comment on above: Performed By: #### M 100.651, L500.2500, L501.9985, L100.0100, BTSPAT ####[facility] [address] [place], [address] WBC (Bld) [#/Vol] 4.4 10*3/uL Normal 4.4-11.0 [facility] Comment on above: Performed By: #### M 100.651, L500.2500, L501.9985, L100.0100, BTSPAT ####[facility] [address] [place], [address] Hemoglobin A1con 06-27-2025 HbA1c (Bld) [Mass fraction] 4.6 % Normal <=5.6 [facility] Comment on above: Result Comment: Norm al < 5.7 % Prediabetic 5.7 - 6.4 % Diabetic >or= 6.5 % Please note range changes. Performed By: #### M 100.651, L500.2500, L501.9985, L100.0100, BTSPAT ####[facility] [address] [place], [address] Magnesiumon 06-27-2025 Magnesium [Mass/Vol] 2.5 mg/dL High 1.5-2.2 [facility] Comment on above: Performed By: #### L 501.5200, L501.9520 ####[facility] [address] [place], [address] Thyroid Stim Hormone (TSH)on 06-27-2025 TSH 0.383 uIU/mL Normal 0.300-4.200 [facility] Comment on above: Performed By: #### L 501.5200, L501.9520 ####[facility] [address] [place], [address] Type AND Screen - PAT ONLYon 06-27-2025 Ab SCREEN GEL Negative Normal [facility] Comment on above: Order Comment: Surge ry Date: 07/10/25Reason for Laboratory Test [id number] INTERBODY FUSION Performed By: #### M 100.651, L500.2500, L501.9985, L100.0100, BTSPAT ####[facility] [address] [place], [address] CNOVon 06-25-2025 CNOV Office Visit (INTMWS ) SANTOS ALLAN ([id number]) 1965 F Date Time Provider Department 06/25/25 [...] for this condition. You last saw your computer information systems instructor 3-4 months ago and are scheduled to [...] is taking sulfasalazine. She last saw her computer information systems instructor 3-4 months ago and has a follow-up appointment in July. Her computer information systems instructor reports that her scleroderma is controlled, and [...] Vaccine(2024- season) (more content not included)... Normal [facility] Basic metabolic 2000 panelon 06-08-2025 Anion gap [Moles/Vol] 10 mmol/L Normal 8-15 [facility] Comment on above: Order Comment: Speci men Type: BLOOD SPECIMENOrdering Facility: [facility] Address: [address] [place], [place] [address] Performed By: #### 2 4321-2 ####[facility] LABCLIA [id number] [address] [address] [place] Calcium [Mass/Vol] 9.8 mg/dL Normal 8.5-10.2 [facility] Comment on above: Order Comment: Speci men Type: BLOOD SPECIMENOrdering Facility: [facility] Address: [address] [place] [address] Performed By: #### 2 4321-2 ####[facility] LABCLIA [id number] [address], [facility] [place] Chloride [Moles/Vol] 98 mmol/L Normal 98-107 [facility] Comment on above: Order Comment: Speci men Type: BLOOD SPECIMENOrdering Facility: [facility] Address: [address] [place] [address] Performed By: #### 2 4321-2 ####[facility] LABCLIA [id number] [place] [id number] [place] CO2 [Moles/Vol] 29 mmol/L Normal 22-30 [facility] Comment on above: Order Comment: Speci men Type: BLOOD SPECIMENOrdering Facility: [facility] Address: [address] [place], [place] [address] Performed By: #### 2 4321-2 ####[facility] LABCLIA [id number] [facility] [address] [place] [address] [place] Creatinine [Mass/Vol] 0.56 mg/dL Low 0.58-0.96 [facility] Comment on above: Order Comment: Speci men Type: BLOOD SPECIMENOrdering Facility: [facility] Address: [address] [place], [place] [address] Performed By: #### 2 4321-2 ####[facility] LABCLIA [id number] [address] [address] [place] eGFRcr SerPlBld CKD-EPI 2020 107 mL/min/1.73m??? Normal >=60 [facility] Comment on above: Order Comment: Vondaomero león Type: BLOOD SPECIMENOrdering Facility: [facility] Address: [address] [place] [address] Result Comment: Marilee mated Glomerular Filtration Rate [...] actual GFR. Performed By: #### 2 4321-2 ####[facility] LABCLIA [id number] [place] [address] [place] Glucose [Mass/Vol] 80 mg/dL Normal 74-99 [facility] Comment on above: Order Comment: Sg león Type: BLOOD SPECIMENOrdering Facility: [facility] Address: [address] [place] [address] Result Comment: The [place] Diabetes Association (ADA) provides guidance for cutoff [...] Standards of Medical Care in Diabetes 2016, [place] [employer]. Diabetes Care. 2016.39(Suppl 1). Performed By: #### 2 4321-2 ####[facility] LABCLIA [id number] [place] [id number] [place] Potassium [Moles/Vol] 5.0 mmol/L Normal 3.7-5.1 [facility] Comment on above: Order Comment: Speci men Type: BLOOD SPECIMENOrdering Facility: [facility] Address: [address] [place] [address] Performed By: #### 2 4321-2 ####[facility] LABCLIA [id number] [place] [id number] [place] Sodium [Moles/Vol] 137 mmol/L Normal 136-144 [facility] Comment on above: Order Comment: Speci men Type: BLOOD SPECIMENOrdering Facility: [facility] Address: [address] [place] [address] Performed By: #### 2 4321-2 ####[facility] LABCLIA [id number] [place] [id number] [place] Urea nitrogen [Mass/Vol] 5 mg/dL Low 7-21 [facility] Comment on above: Order Comment: Speci men Type: BLOOD SPECIMENOrdering Facility: [facility] Address: [address] [place] [address] Performed By: #### 2 4321-2 ####[facility] LABIA [id number] [place] [id number] [place] Orthopedic Visit Reporton Orthopedic Visit Report [facility] [address] [place] [address] OFFICE VISIT Date of Service: 06/01/25 MR#: [id number] Acct: [id number] Name: SANTOS ALLAN FRANCI Rep #: [id number] : 1965 Provider: Dr. Tobin Bauman MD Age/Sex: 59/F Location: [facility] Status: Signed Intake Vital Signs 04/20/25 08:26 [...] TH 04/05/25 06/01/25 History subcutaneous pen injector (Mounjaro) Held on 04/20/25. Instructions: Resume on 04/23/25. [...] the servic (more content not included)... 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 Recording using [employer] software for draft documentation of the visit was discussed with the patient/authorized customer retention representative; all questions welcomed and answered. Patient/authorized customer retention representative agreed to proceed Hypertension: - Blood [...] 5000 SENSITI (more content not included)... Normal [facility] Basic metabolic 2000 panelon 05-07-2025 Anion gap [Moles/Vol] 11 mmol/L Normal 8-15 [facility] Comment on above: Order Comment: Speci men Type: BLOOD SPECIMENOrdering Facility: [facility] Address: [address] [place] [address] Performed By: #### 2 4321-2 ####[facility] [id number] [place] [id number] [place] Calcium [Mass/Vol] 9.4 mg/dL Normal 8.5-10.2 [facility] Comment on above: Order Comment: Speci men Type: BLOOD SPECIMENOrdering Facility: [facility] Address: [address] [place] [address] Performed By: #### 2 4321-2 ####[facility] BEACHNCLIA [id number] [place] [address] [place] Chloride [Moles/Vol] 100 mmol/L Normal 98-107 [facility] Comment on above: Order Comment: Speci men Type: BLOOD SPECIMENOrdering Facility: [facility] Address: [address] [place] [address] Performed By: #### 2 4321-2 ####[facility] [id number] [place] [address] [place] CO2 [Moles/Vol] 28 mmol/L Normal 22-30 [facility] Comment on above: Order Comment: Speci men Type: BLOOD SPECIMENOrdering Facility: [facility] Address: [address] [place] [address] Performed By: #### 2 4321-2 ####[facility]ITAL[facility] [id number] [place] [address] [place] Creatinine [Mass/Vol] 0.58 mg/dL Normal 0.58-0.96 [facility] Comment on above: Order Comment: Speci men Type: BLOOD SPECIMENOrdering Facility: [facility] Address: [address] [place] [address] Performed By: #### 2 4321-2 ####[facility] [id number] [place] [address] [place] eGFRcr SerPlBld CKD-EPI 2020 106 mL/min/1.73m??? Normal >=60 [facility] Comment on above: Order Comment: Speci men Type: BLOOD SPECIMENOrdering Facility: [facility] Address: [address] [place] [address] Result Comment: Marilee mated Glomerular Filtration Rate [...] actual GFR. Performed By: #### 2 4321-2 ####[facility] HOSPITALWBALDEVLIDl [id number] [place] [address] [place] Glucose [Mass/Vol] 97 mg/dL Normal 74-99 [facility] Comment on above: Order Comment: Speci men Type: BLOOD SPECIMENOrdering Facility: [facility] Address: [address] [place] [id number] Result Comment: The [place] Diabetes Association (ADA) provides guidance for cutoff [...] Standards of Medical Care in Diabetes 2016, [place] [employer] Association. Diabetes Care. 2016.39(Suppl 1). Performed By: #### 2 4321-2 ####[facility]ITAL[facility] [id number] [place] [address] [place] Potassium [Moles/Vol] 3.9 mmol/L Normal 3.7-5.1 [facility] Comment on above: Order Comment: Vondai men Type: BLOOD SPECIMENOrdering Facility: [facility] Address: [address] [place] [address] Performed By: #### 2 4321-2 ####[facility] HOSPITALWRILIDl [id number] [place] [address] [place] Sodium [Moles/Vol] 139 mmol/L Normal 136-144 [facility] Comment on above: Order Comment: Speci men Type: BLOOD SPECIMENOrdering Facility: [facility] Address: [facility] [place] [id number] Performed By: #### 2 4321-2 ####[facility] KRISTOPHERLORRAINENCELIO [id number] [address] Urea nitrogen [Mass/Vol] 5 mg/dL Low 7-21 [facility] Comment on above: Order Comment: Speci men Type: BLOOD SPECIMENOrdering Facility: [facility] Address: [facility] BELIAVicky [place] [id number] Performed By: #### 2 4321-2 ####[facility] KRISTOPHERLORRAINENCLIA [id number] [address] OF [facility] CNOVon 05-07-2025 CNOV Office Visit (OBGYWM ) SANTOS ALLAN ([id number]) 1965 F Date Time Provider Department 05/07/25 4:20 PM ASH CHOWDHURY OBLETICIAWBarb During your visit today, we recorded the following information about you: Blood pressure Weight 120/84 79.7 kg Ash Chowdhury MD 05/07/2025 6:25 PM Signed DATE OF SERVICE: 05/07/2025 PROBLEM: Santos Allan presents for postop visit. SURGERY AND DATE: Hysteroscopy [facility] PATHOLOGY: benign SUBJECTIVE/INTERVAL HISTORY: Santos Allan is [...] 08/11/2024 Histor (more content not included)... Normal [facility] CNOVon 05-02-2025 CNOV Office Visit (INTMWS ) SANTOS ALLAN ([id number]) 1965 F Date Time Provider Department 05/02/25 3:40 PM FIOR ALVAREZSOLE During your visit today, we recorded the following information about you: Pulse Respiration Blood pressure Weight 76/minute 16/minute 162/100 81.2 kg Fior Alvarez APRN.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 05/02/2025 4:09 PM Signed CC: Patient presents with: Recheck: Medication follow up HPI Santos Allan is a 59 year old female who presents today for BP follow up. Was switched to spironolactone from HCTZ due to hypokalemia. Recording using [employer] software for draft documentation of the visit was discussed with the patient/authorized customer retention representative; all questions welcomed and answered. Patient/authorized customer retention representative agreed to proceed Edema and HTN: [...] 5000 [address] (more content not included)... Normal [facility] Basic metabolic 2000 panelon 04-27-2025 Anion gap [Moles/Vol] 12 mmol/L 8 - 15 mmol/L [facility] Calcium [Mass/Vol] 9.0 mg/dL 8.5 - 10. 2 mg/dL [facility] Chloride [Moles/Vol] 102 mmol/L 98 - 107 mmol/L [facility] CO2 [Moles/Vol] 26 mmol/L 22 - 30 mmol/L [facility] Creatinine [Mass/Vol] 0.53 mg/dL Low 0.58 - 0.96 mg/dL [facility] GFR/1.73 sq M.predicted among non-blacks MDRD (S/P/Bld) [Vol rate/Area] 108 mL/min/{1.73_m2} - PINF [facility] Comment on above: Estimated Glomerular Filtration Rate [...] [Mass/Vol] 78 mg/dL 74 - 99 mg/dL [facility] Comment on above: The [place] Diabete s Association (ADA) provides guidance for [...] Standards of Medical Care in Diabetes 2016, [place] [employer] Association. Diabetes Care. 2016.39(Suppl 1). Interpretation and review of laboratory results Abnormal [facility] Potassium [Moles/Vol] 3.6 mmol/L Low 3.7 - 5.1 mmol/L [facility] Sodium [Moles/Vol] 140 mmol/L 136 - 144 mmol/L [facility] Urea nitrogen [Mass/Vol] 4 mg/dL Low 7 - 21 mg/dL [facility] Anion gap [Moles/Vol] 12 mmol/L Normal 8-15 [facility] Comment on above: Order Comment: Speci men Type: BLOOD SPECIMENOrdering Facility: [facility] Address: [address] [place] [id number] Performed By: #### 2 4321-2 ####[facility] LABCLIA [id number] [address] [address] [place] Calcium [Mass/Vol] 9.0 mg/dL Normal 8.5-10.2 [facility] Comment on above: Order Comment: Speci men Type: BLOOD SPECIMENOrdering Facility: [facility] Address: [address] [place] [address] Performed By: #### 2 4321-2 ####[facility] LABCLIA [id number] [facility] [address], [facility] [place] Chloride [Moles/Vol] 102 mmol/L Normal 98-107 [facility] Comment on above: Order Comment: Speci men Type: BLOOD SPECIMENOrdering Facility: [facility] Address: [address] [place] [address] Performed By: #### 2 4321-2 ####[facility] LABCLIA [id number] [facility] [place] [id number] [place] CO2 [Moles/Vol] 26 mmol/L Normal 22-30 [facility] Comment on above: Order Comment: Speci men Type: BLOOD SPECIMENOrdering Facility: [facility] Address: [address] [place], [place] [address] Performed By: #### 2 4321-2 ####[facility] LABCLIA [id number] [facility] CLINICD AVENUEGLENDORA COMMUNITY HOSPITALK [address], [facility] [place] Creatinine [Mass/Vol] 0.53 mg/dL Low 0.58-0.96 [facility] Comment on above: Order Comment: Speci men Type: BLOOD SPECIMENOrdering Facility: [facility] Address: [address] [place], [place] [address] Performed By: #### 2 4321-2 ####[facility] LABCLIA [id number] [place] [address] [place] eGFRcr SerPlBld CKD-EPI 2020 108 mL/min/1.73m??? Normal >=60 [facility] Comment on above: Order Comment: Sg león Type: BLOOD SPECIMENOrdering Facility: [facility] Address: [address] [place] [address] Result Comment: Marilee mated Glomerular Filtration Rate [...] actual GFR. Performed By: #### 2 4321-2 ####[facility] LABCLIA [id number] [place] [address] [place] Glucose [Mass/Vol] 78 mg/dL Normal 74-99 [facility] Comment on above: Order Comment: Sg león Type: BLOOD SPECIMENOrdering Facility: [facility] Address: [address] [place] [address] Result Comment: The [place] Diabetes Association (ADA) provides guidance for cutoff [...] Standards of Medical Care in Diabetes 2016, [place] [employer] Association. Diabetes Care. 2016.39(Suppl 1). Performed By: #### 2 4321-2 ####[facility] LABCLIA [id number] [place] [id number] [place] Potassium [Moles/Vol] 3.6 mmol/L Low 3.7-5.1 [facility] Comment on above: Order Comment: Speci men Type: BLOOD SPECIMENOrdering Facility: [facility] Address: [address] [place] [address] Performed By: #### 2 4321-2 ####[facility] LABCLIA [id number] [place] [id number] [place] Sodium [Moles/Vol] 140 mmol/L Normal 136-144 [facility] Comment on above: Order Comment: Speci men Type: BLOOD SPECIMENOrdering Facility: [facility] Address: [address] [place] [address] Performed By: #### 2 4321-2 ####[facility] LABIA [id number] [place] [address] [place] Urea nitrogen [Mass/Vol] 4 mg/dL Low 7-21 [facility] Comment on above: Order Comment: Speci men Type: BLOOD SPECIMENOrdering Facility: [facility] Address: [address] [place] [address] Performed By: #### 2 4321-2 ####[facility] LABIA [id number] [place] [id number] [place] Discharge Instructionon 08-0 Discharge Instruction [facility] Medical Records Department [address] [place] [address] Instructions for Home/Discharge Instructions 04/20/25 0925 MR#: [id number] Acct: [id number] Name: SANTOS ALLAN FRANCI Rep #: [id number] : 1965 59 From: Ash Chowdhury DO PCP: Dr. Ana Bolñaos MD Status:REG [facility] Discharge Instructions DC O2, CPAP, BIPAP needs [...] Patient Instructions: Dilation and Curettage Print Language: Ethiopian Discharge Orders/Prescriptions Prescriptions: Continued leflunomide 20 mg [...] Order can be placed): Home, Self Care 04/20/25925 Ash Chowdhury DO CC: Dr. Ana Bolaños MD Signed [facility] MR/POSTOP.[facility] 04-20-2025 MR/POSTOP.[facility] Medical Records Department [address] [place] [address] Anesthesia Postop Eval I 04/20/25 1004 MR#: [id number] Acct: [id number] Name: SANTOS ALLAN FRANCI Rep #: [id number] : 1965 59 From: Star Kathleen CRNA PCP: Dr. Ana Bolaños MD Status:REG [facility] Y Race: C Location: [place] [address] Anesthesia: Postop Eval I Current Vital Signs [...] CRNA Cosigner Signature: Date CC: Signed Normal [facility] Operative Reporton 5 Operative Report [facility] Medical Records Department [address] [place] [address] Operative Report 04/20/25 0955 MR#: [id number] Acct: [id number] Name: SANTOS ALLAN Rep #: [id number] : 1965 59 From: Ash Chowdhury DO PCP: Dr. Ana Bolaños MD Status:REG [facility] Location: [place] [address] Problems Associated Problem List Diagnoses (1) Endometrial thickening on ultrasound: (2) Fluid in endometrial cavity: Operative Report (Standard) Operative Information Date of Procedure: 04/20/25 Pre-Operative Diagnosis: Thickening of endometrium and endometrial fluid in pelvic ultrasound Post-Operative Diagnosis: As above Surgery/Procedure Performed: Hysteroscopy D C chief building inspector: No Type of Anesthesia: Local and MAC [...] MD; Dr. Ash Chowdhury DO Signed Normal [facility] Surgery Specimen Level Marie 04-20-2025 Surgery Specimen Level IV Patient Age/Sex Location Account Attending Physician SANTOS ALLAN 59/F [facility] [id number] Dr. Ash Chowdhury DO Specimen: [id number] Received: 04/20/25 Status: DIRK Jaramillo Num: [id number] Spec Type: ENDOM BX/C Subm Dr: Dr. Ash Chowdhury DO HEADLEENA OPERATION: Hysteroscopy, D C PRE-OP DIAGNOSIS: Abnormal [...] tissue fragments. Entirely submitted in 1 cassette. [place] 04/20/2025 CPT:73296 Patient Age/Sex Location Account Attending Physician SANTOS ALLAN 59/F [facility] [id number] Dr. Ash Chowdhury DO Signed (signature on file) Dr. Doris Hopkins MD 04/24/25 1335 Normal [facility] Comment on above: Performed By: #### P SUIV ####[facility] [address] [place], [place], [address] Orthopedic Visit Reporton Orthopedic Visit Report [facility] Health [facility] [address] [place] [address] OFFICE VISIT Date of Service: 04/18/25 MR#: [id number] Acct: [id number] Name: SANTOS ALLAN FRANCI Rep #: [id number] : 1965 Provider: PHILL Vasquez Age/Sex: 59/F Location: [facility]LEY Status: Signed with Addenda ADDENDUM by PHILL Vasquez on 04/27/25 at 8059 Assessment and Plan Assessment and Plan (1) [...] TH 04/05/25 04/18/25 History subcutaneous pen injector (Mounjaro) aripiprazole 2 mg tablet 4 mg PO QHS 04/10/25 04/18/25 Hist ory spironolactone 25 mg tablet 25 mg PO QDAY 04/18/25 04/18/25 Hi story Have you fallen in the past year?: No [facility] Medical History Alcohol use Former smoker History [...] H/O partial (more content not included)... Normal [facility] CBC-Complete Blood Cnt No Di ffon 04-13-2025 Erythrocyte distribution width (RBC) [Ratio] 12.5 % Normal 11.6-14.6 [facility] Comment on above: Performed By: #### L 100.0500, BTSPAT, L500.4050 ####[facility] [address] [place], [address] Hematocrit (Bld) [Volume fraction] 41.1 % Normal 37-47 [facility] Comment on above: Performed By: #### L 100.0500, BTSPAT, L500.4050 ####[facility] [address] [place], [address] Hemoglobin (Bld) [Mass/Vol] 13.4 g/dL Normal 12.0-15.0 [facility] Comment on above: Performed By: #### L 100.0500, BTSPAT, L500.4050 ####[facility] [address] [place], [address] MCH (RBC) [Entitic mass] 29.8 pg Normal 27.0-32.0 [facility] Comment on above: Performed By: #### L 100.0500, BTSPAT, L500.4050 ####[facility] [address] [place], [address] MCHC (RBC) [Mass/Vol] 32.6 g/dL Normal 32-36 [facility] Comment on above: Performed By: #### L 100.0500, BTSPAT, L500.4050 ####[facility] [address] [place], [address] MCV (RBC) [Entitic vol] 91.3 fL Normal 81-99 [facility] Comment on above: Performed By: #### L 100.0500, BTSPAT, L500.4050 ####[facility] [address] [place], [address] Platelet mean volume (Bld) [Entitic vol] 9.5 fL Normal 6.2-12.0 [facility] Comment on above: Performed By: #### L 100.0500, BTSPAT, L500.4050 ####[facility] [address] [place], [address] Platelets (Bld) [#/Vol] 266 10*3/uL Normal 150-450 [facility] Comment on above: Performed By: #### L 100.0500, BTSPAT, L500.4050 ####[facility] [address] [place], [address] RBC (Bld) [#/Vol] 4.50 10*6/uL Normal 4.2-5.4 [facility] Comment on above: Performed By: #### L 100.0500, BTSPAT, L500.4050 ####[facility] [address] [place], [address] RDW SD 41.7 fl Normal 35.1-43.9 [facility] Comment on above: Performed By: #### L 100.0500, BTSPAT, L500.4050 ####[facility] [address] [place], [address] WBC (Bld) [#/Vol] 4.9 10*3/uL Normal 4.4-11.0 [facility] Comment on above: Performed By: #### L 100.0500, BTSPAT, L500.4050 ####[facility] [address] [place], [address] Comprehensive Metabolic Prof ilon 04-13-2025 Albumin [Mass/Vol] 4.1 g/dL Normal 3.5-5.0 [facility] Comment on above: Performed By: #### L 100.0500, BTSPAT, L500.4050 ####[facility] [address] [place], [address] Albumin/Globulin [Mass ratio] 1.6 {ratio} Normal 0.9-2.4 [facility] Comment on above: Performed By: #### L 100.0500, BTSPAT, L500.4050 ####[facility] [address] [place], [address] ALK PHOS 90 U/L Normal 35-104 [facility] Comment on above: Performed By: #### L 100.0500, BTSPAT, L500.4050 ####[facility] [address] [place], [address] ALT [Catalytic activity/Vol] 13 U/L Normal <=34 [facility] Comment on above: Performed By: #### L 100.0500, BTSPAT, L500.4050 ####[facility] [address] [place], [address] AST [Catalytic activity/Vol] 20 U/L Normal <=31 [facility] Comment on above: Performed By: #### L 100.0500, BTSPAT, L500.4050 ####[facility] [address] [place], [address] Bilirubin [Mass/Vol] 0.35 mg/dL Normal 0.00-1.30 [facility] Comment on above: Performed By: #### L 100.0500, BTSPAT, L500.4050 ####[facility] [address] [place], [address] BUN/CRE 6.3 RATIO Low 10-20 [facility] Comment on above: Performed By: #### L 100.0500, BTSPAT, L500.4050 ####[facility] [address] [place], [address] Calcium [Mass/Vol] 9.2 mg/dL Normal 7.6-11.0 [facility] Comment on above: Performed By: #### L 100.0500, BTSPAT, L500.4050 ####[facility] [address] [place], [address] Chloride [Moles/Vol] 103 mmol/L Normal 98-108 [facility] Comment on above: Performed By: #### L 100.0500, BTSPAT, L500.4050 ####[facility] [address] [place], [address] CO2 [Moles/Vol] 27.0 mmol/L Normal 21.0-32.0 [facility] Comment on above: Performed By: #### L 100.0500, BTSPAT, L500.4050 ####[facility] [address] [place], [address] Creatinine [Mass/Vol] 0.58 mg/dL Low 0.70-1.20 [facility] Comment on above: Performed By: #### L 100.0500, BTSPAT, L500.4050 ####[facility] [address] [place], [address] GAP 10 Normal 5-15 [facility] Comment on above: Performed By: #### L 100.0500, BTSPAT, L500.4050 ####[facility] [address] [place], [address] GFR/1.73 sq M.predicted among non-blacks MDRD (S/P/Bld) [Vol rate/Area] 105 mL/min/{1.73_m2} Normal >60 [facility] Comment on above: Result Comment: mL/m in/1.73m2 CKD-EPI Creatinine Equation (2020) Performed By: #### L 100.0500, BTSPAT, L500.4050 ####[facility] [address] [place], [address] Globulin (S) [Mass/Vol] 2.5 g/dL Normal 2.2-4.2 [facility] Comment on above: Performed By: #### L 100.0500, BTSPAT, L500.4050 ####[facility] [address] [place], [address] Glucose [Mass/Vol] 82 mg/dL Normal 70-99 [facility] Comment on above: Performed By: #### L 100.0500, BTSPAT, L500.4050 ####[facility] [address] [place], [address] Potassium [Moles/Vol] 4.1 mmol/L Normal 3.3-5.1 [facility] Comment on above: Performed By: #### L 100.0500, BTSPAT, L500.4050 ####[facility] [address] [place], [address] Sodium [Moles/Vol] 140 mmol/L Normal 133-145 [facility] Comment on above: Performed By: #### L 100.0500, BTSPAT, L500.4050 ####[facility] [address] [place], [address] T PROT 6.6 g/dL Normal 5.9-8.4 [facility] Comment on above: Performed By: #### L 100.0500, BTSPAT, L500.4050 ####[facility] [address] [place], [address] Urea nitrogen [Mass/Vol] 4 mg/dL Normal 4-19 [facility] Comment on above: Performed By: #### L 100.0500, BTSPAT, L500.4050 ####[facility] [address] [place], [place], [address] Spine Lumbar (Routine)on Spine Lumbar (Routine) [facility] Imaging Services [address] [place] [address] Spine Lumbar (Routine) MR#: [id number] Acct: [id number] Name: SANTOS ALLAN Rep #: [id number] : 1965 F 59 From: Max Alva MD PCP: Dr. Ana Bolaños MD Status: REG CLI Study: Spine Lumbar (Routine) Date of Exam: 04/13/25 Exam# [id number] Ordering Dr: Saundra Randle PROCEDURE: SPINE LUMBAR [...] stenosis at L3-L4 and L4-L5. Reading [facility] CC: PHILL Vasquez; Dr. Ana Bolaños MD Furniture Sales Associate: Signed Normal [facility] Type AND Screen - PAT ONLYon 04-13-2025 Ab SCREEN GEL Negative Normal [facility] Comment on above: Order Comment: Surge ry Date: 04/20/25Reason for Laboratory Test [id number] D C Performed By: #### L 100.0500, BTSPAT, L500.4050 ####[facility] [address] [place], [address] Bacteria Ur Culton 5 Bacteria identified Cx Nom (U) ORGANISM ID: 1 10,000 -<50,000 CFU/ml Mixed microbiota No further workup. Mixed microbiota can be due to???urine???contamination with skin bacteria at time of collection or presence of a long-term urinary catheter. If a new culture is needed, please consider re-education of the patient on proper midstream collection technique or straight catheterization for???urine???collection. Normal [facility] Comment on above: Performed By: #### 6 30-4 ####[facility] LABCLIA [id number] [address] OF [facility] CNOVon 04-10-2025 CNOV Office Visit (FAMPWS ) SANTOS ALLAN ([id number]) 1965 F Date Time Provider Department 04/10/25 10:00 AM ANGELIQUE BRADFORD FAMPWS During your visit today, we recorded the [...] PA-C 04/10/2025 12:38 PM Signed Recording using [employer] software for draft documentation of the visit was discussed with the patient/authorized customer retention representative; all questions welcomed and answered. Patient/authorized customer retention representative agreed to proceed 04/10/2025 Recurrent UTIs: [...] and myositis, unspecified REMIGIO (obstructive sleep apnea) [facility] for [facility] Other and unspecified hyperlipidemia Right ankle (more content not included)... Normal [facility] UA DIP, URINE (POC)on 2024 BILIRUBIN UA (POCT) Negative Negative [facility] CLARITY UA (POCT) Clear [facility] COLOR UA (POCT) Yellow [facility] GLUCOSE UA (POCT) Negative Negative mg/dL [facility] Hemoglobin Ql (U) Small Abnormal Negative [facility] Interpretation and review of laboratory results Abnormal [facility] KETONE UA (POCT) Negative Negative mg/dL [facility] LEUKOCYTES UA (POCT) Large Abnormal Negative [facility] NITRITE UA (POCT) Negative Negative [facility] PH UA (POCT) 6 4.5 - 8.0 [facility] Protein Ql (U) Negative Negative mg/dL [facility] SPECIFIC GRAVITY UA (POCT) 1.01 1.005 - 1.030 [facility] UROBILINOGEN UA (POCT) 0.2 Normal E.U./dL [facility] Location:[address], [address] POINT OF CARE [facility] Basic metabolic 2000 panelon 04-09-2025 Anion gap [Moles/Vol] 16 mmol/L High 8-15 [facility] Comment on above: Order Comment: Speci men Type: BLOOD SPECIMENOrdering Facility: [facility] Address: [address] [place] [address] Performed By: #### 2 4321-2 ####[facility] [id number] [place] [address] [place] Calcium [Mass/Vol] 9.5 mg/dL Normal 8.5-10.2 [facility] Comment on above: Order Comment: Speci men Type: BLOOD SPECIMENOrdering Facility: [facility] Address: [address] [place] [address] Performed By: #### 2 4321-2 ####[facility] [id number] [place] [address] [place] Chloride [Moles/Vol] 100 mmol/L Normal 98-107 [facility] Comment on above: Order Comment: Speci men Type: BLOOD SPECIMENOrdering Facility: [facility] Address: [address] [place] [address] Performed By: #### 2 4321-2 ####[facility] [id number] [place] [address] [place] CO2 [Moles/Vol] 23 mmol/L Normal 22-30 [facility] Comment on above: Order Comment: Speci men Type: BLOOD SPECIMENOrdering Facility: [facility] Address: [address] [place] [address] Performed By: #### 2 4321-2 ####[facility] [id number] [place] [address] [place] Creatinine [Mass/Vol] 0.64 mg/dL Normal 0.58-0.96 [facility] Comment on above: Order Comment: Speci men Type: BLOOD SPECIMENOrdering Facility: [facility] Address: [address] [place] [address] Performed By: #### 2 4321-2 ####[facility] [id number] [place] [address] [place] eGFRcr SerPlBld CKD-EPI 2020 103 mL/min/1.73m??? Normal >=60 [facility] Comment on above: Order Comment: Speci men Type: BLOOD SPECIMENOrdering Facility: [facility] Address: [address] [place] [address] Result Comment: Marilee mated Glomerular Filtration Rate [...] actual GFR. Performed By: #### 2 4321-2 ####[facility] MILLTOWNCLIA [id number] [place] [address] [place] Glucose [Mass/Vol] 83 mg/dL Normal 74-99 [facility] Comment on above: Order Comment: Speci men Type: BLOOD SPECIMENOrdering Facility: [facility] Address: [address] [place] [address] Result Comment: The [place] Diabetes Association (ADA) provides guidance for cutoff [...] Standards of Medical Care in Diabetes 2016, [place] [employer] Association. Diabetes Care. 2016.39(Suppl 1). Performed By: #### 2 4321-2 ####[facility] MILLTOWNCLIA [id number] [place] [address] [place] Potassium [Moles/Vol] 4.6 mmol/L Normal 3.7-5.1 [facility] Comment on above: Order Comment: Speci men Type: BLOOD SPECIMENOrdering Facility: [facility] Address: [address] [place], [place] [address] Performed By: #### 2 4321-2 ####[facility] MILLTOWNCLIA [id number] [place] [address] [place] Sodium [Moles/Vol] 139 mmol/L Normal 136-144 [facility] Comment on above: Order Comment: Speci men Type: BLOOD SPECIMENOrdering Facility: [facility] Address: [address] [place], [place] [address] Performed By: #### 2 4321-2 ####[facility] [id number] [place] [address] [place] Urea nitrogen [Mass/Vol] 6 mg/dL Low 7-21 [facility] Comment on above: Order Comment: Speci men Type: BLOOD SPECIMENOrdering Facility: [facility] Address: [facility] [place] [address] Performed By: #### 2 4321-2 ####[facility] [place] [facility] [id number] [place] [id number] [place] CNOVon 04-09-2025 CNOV Office Visit (OBGYWM ) SANTOS ALLAN ([id number]) 1965 F Date Time Provider Department 04/09/25 [...] No c (more content not included)... Normal [facility] HISTORY PHYSICALon HISTORY PHYSICAL HNO ID: [id number] Author: ASH CHOWDHURY MD Service: ? Author [...] EXAMINATION: TRA (more content not included)... Normal [facility] MR/BMS.BPon 04-05-2025 MR/BMS.BP [address], [place] [address] OFFICE VISIT Date of Service: 04/05/25 MR#: [id number] Acct: [id number] Name: SANTOS ALLAN FRANCI Rep #: [id number] : 1965 Provider: Dr. Josue Melgoza se, DO Age/Sex: 59/F Location: [facility] Status: Signed Intake Vital Signs 12/07/24 15:58 [...] subcut QWEEK 04/05/25 History subcutaneous pen injector (Mounjaro) [facility] Medical History Wears glasses Thyroid disease [...] edibles, paul (more content not included)... Normal [facility] Basic metabolic 2000 panelon 03-30-2025 Anion gap [Moles/Vol] 15 mmol/L Normal 8-15 [facility] Comment on above: Order Comment: Speci men Type: BLOOD SPECIMENOrdering Facility: [facility] Address: [address] [place], [place] [address] Performed By: #### 2 4321-2 ####[facility] LABCLIA [id number] [address] [place] [address] [place] Calcium [Mass/Vol] 9.4 mg/dL Normal 8.5-10.2 [facility] Comment on above: Order Comment: Speci men Type: BLOOD SPECIMENOrdering Facility: [facility] Address: [address] [place], [place] [address] Performed By: #### 2 4321-2 ####[facility] LABCLIA [id number] [address] [place] [address] [place] Chloride [Moles/Vol] 95 mmol/L Low 98-107 [facility] Comment on above: Order Comment: Speci men Type: BLOOD SPECIMENOrdering Facility: [facility] Address: [address] [place], [place] [address] Performed By: #### 2 4321-2 ####[facility] LABCLIA [id number] [place] [id number] [place] CO2 [Moles/Vol] 27 mmol/L Normal 22-30 [facility] Comment on above: Order Comment: Speci men Type: BLOOD SPECIMENOrdering Facility: [facility] Address: [address] [place], [place] [address] Performed By: #### 2 4321-2 ####[facility] LABCLIA [id number] [facility] [address] [place] [address] [place] Creatinine [Mass/Vol] 0.57 mg/dL Low 0.58-0.96 [facility] Comment on above: Order Comment: Speci men Type: BLOOD SPECIMENOrdering Facility: [facility] Address: [address] [place], [place] [address] Performed By: #### 2 4321-2 ####[facility] LABCLIA [id number] [place] [id number] [place] eGFRcr SerPlBld CKD-EPI 2020 106 mL/min/1.73m??? Normal >=60 [facility] Comment on above: Order Comment: Sg león Type: BLOOD SPECIMENOrdering Facility: [facility] Address: [address] [place] [address] Result Comment: Marilee mated Glomerular Filtration Rate [...] actual GFR. Performed By: #### 2 4321-2 ####[facility] LABIA [id number] [place] [address] [place] Glucose [Mass/Vol] 82 mg/dL Normal 74-99 [facility] Comment on above: Order Comment: Sg león Type: BLOOD SPECIMENOrdering Facility: [facility] Address: [address] [place] [address] Result Comment: The [place] Diabetes Association (ADA) provides guidance for cutoff [...] Standards of Medical Care in Diabetes 2016, [place] Diabetes [employer]. Diabetes Care. 2016.39(Suppl 1). Performed By: #### 2 4321-2 ####[facility] LABCLIA [id number] [place] [id number] [place] Potassium [Moles/Vol] 2.8 mmol/L Low 3.7-5.1 [facility] Comment on above: Order Comment: Speci men Type: BLOOD SPECIMENOrdering Facility: [facility] Address: [address] [place] [address] Performed By: #### 2 4321-2 ####[facility] LABCLIA [id number] [place] [id number] [place] Sodium [Moles/Vol] 137 mmol/L Normal 136-144 [facility] Comment on above: Order Comment: Speci men Type: BLOOD SPECIMENOrdering Facility: [facility] Address: [address] [place] [address] Performed By: #### 2 4321-2 ####[facility] LABIA [id number] [place] [address] [place] Urea nitrogen [Mass/Vol] 4 mg/dL Low 7-21 [facility] Comment on above: Order Comment: Speci men Type: BLOOD SPECIMENOrdering Facility: [facility] Address: [address] [place] [address] Performed By: #### 2 4321-2 ####[facility] LABIA [id number] [place] [id number] [place] CNOVon 03-30-2025 CNOV Office Visit (INTMWS ) SANTOS ALLAN ([id number]) 1965 F Date Time Provider Department 03/30/25 7:00 AM FIOR ALVAREZ During your visit today, we recorded the following information about you: Temperature Pulse Respiration Blood pressure 98.2 degrees 76/minute 18/minute 102/70 Weight Height 80.3 kg 1.676 m Older, MONICA Sweet 03/30/2025 10:05 AM Signed CC: No chief [...] PFRMD 03/18/2016 (more content not included)... Normal [facility] CNOVon 03-28-2025 CNOV Office Visit (NEMOWS ) SANTOS ALLAN ([id number]) 1965 F Date Time Provider Department 03/28/25 4:00 PM LUZ MEEKS During your visit today, we recorded the following information about you: Pulse Respiration Blood pressure Weight 81/minute 16/minute 105/74 79.5 kg Wendy Tejada LPN 03/28/2025 4:31 PM Signed Luz Meeks PA-C 03/28/2025 4:31 PM Signed I have [facility] for General Neurology Name: Santos Allan Age: [age] year old Gender: female Primary Care Provider: Ana Bolaños MD Assessment/Plan: 03/28/2025 - General NeurologyLuz PA-C ASSESSMENT ASSESSMENT/PLAN: 1. Paresthesia of both [...] Will follow-up in 3 to 6 months. [facility]. All prescriptions have [...] a follow-up with Luz as well at [facility]. I spent a total of 35 minutes on the date of the service which included preparing to see the patient, jnny-wl-mrak patient care, completing clinical documentation, obtaining and/or [...] 39.9 in (more content not included)... [facility] C[facility]N Telephone (OBGYWM) SANTOS ALLAN ([id number]) 1965 F Date Time Provider Department 03/28/25 ASH CHOWDHURY OBGYWM During your visit today, we recorded the following information about you: Christofer Moore RN 03/28/2025 1:10 PM Signed Patient scheduled for hysteroscopy [facility] on 04/20/25. Calling because she has MRI [...] Fully Assessed Reason for Visit: Patient Question [6197] Prescriptions as of 04/02/2025 - ARIPiprazole (ABILIFY) [...] Encounter Status:Closed by CHRISTOFER MOORE on 04/02/25 [facility] CNOVon 03-12-2025 CNOV Office Visit (INTMWS ) SANTOS ALLAN ([id number]) 1965 F Date Time Provider Department 03/12/25 [...] tartrate, shor (more content not included)... Normal [facility] L/S Spine Bending Flex/Oracle 03-08-2025 L/S Spine Bending Flex/Ext [facility] Imaging Services [address] [place] [address] L/S Spine Bending Flex/Ext MR#: [id number] Acct: [id number] Name: SANTOS ALLAN Rep #: [id number] : 1965 F 59 From: Fredrick Keating MD PCP: Status: DEP AMB Study: L/S Spine Bending Flex/Ext Date of Exam: 03/08 Exam# [id number] Ordering Dr: Saundra Randle EXAM: XR Lumbosacral [...] 2. Degenerative changes as above. Reading Location: [id number]-HOME CC: PHILL Vasquez Furniture Sales Associate: Signed Normal [facility] Orthopedic Visit Reporton Orthopedic Visit Report [facility] [address] [place] [address] OFFICE VISIT Date of Service: 03/08/25 MR#: [id number] Acct: [id number] Name: SANTOS ALLAN FRANCI Rep #: [id number] : 1965 Provider: PHILL Vasquez Age/Sex: 59/F Location: [facility] Status: Signed Intake Vital Signs 12/15/24 08:20 [...] subcut QWEEK 10/12/2403/08 History subcutaneous pen injector (Mounjaro) gabapentin 400 [...] ibuprofen use. (more content not included)... Normal [facility] Bacteria Ur Culton 06-25-202 5 Bacteria identified Cx Nom (U) ORGANISM [...] , Intermediate >32 , Resistant >64 Abnormal [facility] Comment on above: Performed By: #### 6 30-4 ####[facility] LABCLIA [id number] [place] [id number] [place] CNOVon 03-07-2025 CNOV Office Visit (INTMWS ) SANTOS ALLAN ([id number]) 1965 F Date Time Provider Department 03/07/25 8:00 AM JACQUIE CLARKE INTMWS During your visit today, we recorded the following information about you: Temperature Pulse Respiration Blood pressure 97.5 degrees 84/minute 16/minute 120/78 Weight 82.4 kg Jacquie Clarke, ARMORED CAR 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.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 03/07/2025 8:28 AM Signed CC: Patient presents with: Abdominal Pain: Lower abdomen x 2 days HPI Recording using [employer] software for draft documentation of the visit was discussed with the patient/authorized customer retention representative; all questions welcomed and answered. Patient/authorized customer retention representative agreed to proceed Santos Allan is [...] mg by (more content not included)... Normal [facility] UA DIP, URINE (POC)on 2024 BILIRUBIN UA (POCT) Negative Negative [facility] CLARITY UA (POCT) Clear [facility] COLOR UA (POCT) Yellow [facility] GLUCOSE UA (POCT) Negative Negative mg/dL [facility] Hemoglobin Ql (U) Moderate Abnormal Negative [facility] Interpretation and review of laboratory results Abnormal [facility] KETONE UA (POCT) Negative Negative mg/dL [facility] LEUKOCYTES UA (POCT) Large Abnormal Negative [facility] NITRITE UA (POCT) Negative Negative [facility] PH UA (POCT) 6 4.5 - 8.0 [facility] Protein Ql (U) Negative Negative mg/dL [facility] SPECIFIC GRAVITY UA (POCT) 1.01 1.005 - 1.030 [facility] UROBILINOGEN UA (POCT) 0.2 Normal E.U./dL [facility] Location:[facility], [address], [place], [address] [facility] OF CARE [facility] ALBUMIN/CREATININE RATIO, UR INEon 03-02-2025 Albumin DL <= 20 mg/L (U) [Mass/Vol] 52.8 mg/L Normal [facility] Comment on above: Order Comment: Speci men Type: URINE SPECIMENOrdering Facility: [facility] Address: [address] [place] [address] Performed By: #### U ACR ####[facility] LABCLIA [id number] [place] [address] [place] Albumin/Creatinine (U) [Mass ratio] 88 mg/g High <30 [facility] Comment on above: Order Comment: Speci men Type: URINE SPECIMENOrdering Facility: [facility] Address: [address] [place] [address] Result Comment: Adul t Male and Female Nephrotic Criteria: <30 mg/g is considered normal to mildly increased 30-300 mg/g is considered moderately increased >300 mg/g is considered severely increased KDIGO. (2013). KDIGO 2012 Clinical Practice Guideline for the Evaluation and Management of Chronic Kidney Disease. Official Journal of the International Society of Nephrology, 3(1), 1-150. Performed By: #### U ACR ####[facility] LABCLIA [id number] [place] [id number] [place] Creatinine (U) [Mass/Vol] 60.3 mg/dL Normal 20.0-300.0 [facility] Comment on above: Order Comment: Speci men Type: URINE SPECIMENOrdering Facility: [facility] Address: [address] [place] [address] Performed By: #### U ACR ####[facility] LABCLIA [id number] [address] [address] [place] Lipid 1996 panelon 5 Cholesterol [Mass/Vol] 175 mg/dL Normal <200 [facility] Comment on above: Order Comment: Speci men Type: BLOOD SPECIMENOrdering Facility: [facility] Address: [address] [place] [address] Result Comment: <200 mg/dL, Desirable 200-239 mg/dL, Borderline high >239 mg/dL, High Performed By: #### 2 4331-1, 6-3 ####[facility] LABCLIA [id number] [facility] [id number] [address] [place] Cholesterol in HDL [Mass/Vol] 46 mg/dL Normal >39 [facility] Comment on above: Order Comment: Speci men Type: BLOOD SPECIMENOrdering Facility: [facility] Address: [address] [place] [address] Result Comment: 40-5 9 mg/dL, Acceptable >59 mg/dL, High: Negative risk factor for coronary heart disease <40 mg/dL, Low: Positive risk factor for coronary heart disease Performed By: #### 2 4331-1, 3015-3 ####[facility] LABCLIA [id number] [facility] [id number] [address] [place] Cholesterol in LDL [Mass/Vol] 107 mg/dL High <100 [facility] Comment on above: Order Comment: Speci men Type: BLOOD SPECIMENOrdering Facility: [facility] Address: [address] [place] [address] Result Comment: <100 mg/dL, Optimal 100-129 mg/dL, Near optimal/above optimal 130-159 mg/dL, Borderline high 160-189 mg/dL, High >189 mg/dL, Very high Secondary prevention optimal LDL Cholesterol levels are recommended to be <70 mg/dL LDL cholesterol is calculated using the Lopez-NIH equation. Performed By: #### 2 4331-1, 6-3 ####[facility] LABCLIA [id number] [facility] [id number], [place] [address] [place] Cholesterol in LDL/Cholesterol in HDL [Mass ratio] 2.33 {ratio} Normal <2.54 [facility] Comment on above: Order Comment: Speci men Type: BLOOD SPECIMENOrdering Facility: [facility] Address: [address] [place] [address] Result Comment: Iain rudd: 1. National Cholesterol Education Program ATP III Guideline At-A-Glance Quick Desk Reference: National Heart, Lung, and Blood [place]. National Institutes of Health. 2001: NIH Publication No. 01-3305. 2. An International Atherosclerosis Society position paper: global recommendations for the management of dyslipidemia: executive summary, Atherosclerosis. 2014: 232(2):410-413. Performed By: #### 2 4331-1, 6-3 ####[facility] LABIA [id number] [place] [address] [place] Cholesterol in VLDL [Mass/Vol] 20 mg/dL Normal <30 [facility] Comment on above: Order Comment: Vondai men Type: BLOOD SPECIMENOrdering Facility: [facility] Address: [address] [place] [address] Performed By: #### 2 4331-1, 3015-3 ####[facility] LABIA [id number] [place] [id number] [place] Cholesterol non HDL [Mass/Vol] 129 mg/dL Normal <130 [facility] Comment on above: Order Comment: Sg león Type: BLOOD SPECIMENOrdering Facility: [facility] Address: [address] [place] [address] Result Comment: <130 mg/dL, Optimal 130-159 mg/dL, Near optimal/above optimal 160-189 mg/dL, Borderline high 190-219 mg/dL, High >219 mg/dL, Very high Secondary prevention optimal non HDL Cholesterol levels are recommended to be <100 mg/dL Performed By: #### 2 4331-1, 6-3 ####[facility] LABIA [id number] [address] [address] [place] Cholesterol.total/C holesterol in HDL [Mass ratio] 3.80 {ratio} Normal <5.10 [facility] Comment on above: Order Comment: Vondai men Type: BLOOD SPECIMENOrdering Facility: [facility] Address: [address] [place], [place] [address] Performed By: #### 2 4331-1, 3016-3 ####[facility] LABCLIA [id number] [address] [address] [place] FASTING TIME 12 hrs Normal [facility] Comment on above: Order Comment: Speci men Type: BLOOD SPECIMENOrdering Facility: [facility] Address: [address] [place] [address] Performed By: #### 2 4331-1, 3016-3 ####[facility] LABCLIA [id number] [place] [address] [place] Triglyceride [Mass/Vol] 122 mg/dL Normal <150 [facility] Comment on above: Order Comment: Speci men Type: BLOOD SPECIMENOrdering Facility: [facility] Address: [address] [place] [address] Result Comment: <150 mg/dL, Normal 150-199 mg/dL, Borderline high 200-499 mg/dL, High >499 mg/dL, Very high Performed By: #### 2 4331-1, 3016-3 ####[facility] LABCLIA [id number] [place] [address] [place] Plastic Surgery Visit Report on 03-02-2025 Plastic Surgery Visit Report [facility] [address], [address] [place] [address] OFFICE VISIT Date of Service: 03/02/25 MR#: [id number] Acct: [id number] Name: SANTOS ALLAN FRANCI Rep #: [id number] : 1965 Provider: Dr. Denver Casillas MD Age/Sex: 59/F Location: [facility] Status: Signed Intake Vital Signs 12/15/24 08:20 [...] Op Diagnoses Mucous cyst of finger M67.449 [facility] Medical History Wears glasses Thyroid disease [...] History (Reviewed (more content not included)... Normal [facility] TSH SerPl-aCncon 03-02-2025 TSH Qn 0.378 m[IU]/L Normal 0.270-4.200 [facility] Comment on above: Order Comment: Speci men Type: BLOOD SPECIMENOrdering Facility: [facility] Address: [address] [place] [address] Performed By: #### 2 4331-1, 3016-3 ####[facility] LABCLIA [id number] [place] [address] [place] EMG(NEURO/NI)on 02-09-2025 Results can be seen in attached scanned documents. If you are a patient reviewing this test result, call the doctor who ordered the test with any questions. [facility] BACTERIAL VAGINOSIS NAATon 0 02-08-2025 Lactobacillus crispatus+gasseri+j ensenii + Gardnerella vaginalis + Atopobium vaginae rRNA JUWAN+probe Ql (Vag fld) Not detected Normal Not detected [facility] Comment on above: Order Comment: Speci men Type: SWABOrdering Facility: [facility] Address: [address] [place] [address] Performed By: #### C VTV, BVAMP ####[facility] LABCLIA [id number] [place] [address] [place] JOSEE/TRICHOMONAS NAATon 0 02-08-2025 C. glabrata RNA JUWAN+probe Ql (Vag fld) Not detected Normal Not detected [facility] Comment on above: Order Comment: Speci men Type: SWABOrdering Facility: [facility] Address: [address] [place] [address] Performed By: #### C VTV, BVAMP ####[facility] LABCLIA [id number] [address] [place] Josee sp DNA JUWAN+probe Ql (Vag fld) Not detected Normal Not detected [facility] Comment on above: Order Comment: Speci men Type: SWABOrdering Facility: [facility] Address: [address] [place] [address] Result Comment: The Josee species group target includes C. albicans, C. tropicalis, C. parapsilosis, and C. dubliniensis. Performed By: #### C VTV, BVAMP ####[facility] LABCLIA [id number] [address] [place] T. vaginalis DNA JUWAN+probe Ql (Unsp spec) Not detected Normal Not detected [facility] Comment on above: Order Comment: Speci men Type: SWABOrdering Facility: [facility] Address: [address] [place] [address] Performed By: #### C VTV, BVAMP ####[facility] LABCLIA [id number] [address] [place] CNOVon 02-08-2025 CNOV Office Visit (OBGYWM ) SANTOS ALLAN ([id number]) 1965 F Date Time Provider Department 02/08/25 2:45 PM RICHIE NEWMAN OBGYWM During your visit today, we recorded the following information about you: Blood pressure Weight 118/78 82.1 kg Richie Newman APRN.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 02/08/2025 3:29 PM Signed Santos Allan is [...] Living0 SAB0 IAB0 Ectopic0 Multiple0 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 Normal [facility] HIGH RISK HUMAN PAPILLOMA LUIGI (HPV), PCR FOR DETECTION AND GENOTYPINGon 02-08-2025 HPV 16 Ag Ql (Unsp spec) Not detected Normal Not detected [facility] Comment on above: Order Comment: Speci men Type: FLUID SPECIMENOrdering Facility: [facility] Address: [address] [place] [address] Performed By: #### H PVHRT ####[facility] LABCLIA [id number] [place] [address] [place] HPV 18 Ag Ql (Unsp spec) Not detected Normal Not detected [facility] Comment on above: Order Comment: Speci men Type: FLUID SPECIMENOrdering Facility: [facility] Address: [address] [place] [address] Performed By: #### H PVHRT ####[facility] LABCLIA [id number] [place] [address] [place] HPV 31+33+35+39+45+51+5 2+56+58+59+66+68 DNA JUWAN+probe Ql (Cvx) Not detected Normal Not detected [facility] Comment on above: Order Comment: Speci men Type: FLUID SPECIMENOrdering Facility: [facility] Address: [address] [place] [address] Result Comment: High Risk HPV Other Type includes HPV types 31, 33, 35, 39, 45, 51, 52, 56, 58, 59, 66 and 68. Performed By: #### H PVHRT ####[facility] LABCLIA [id number] [place] [address] [place] PAP TESTon 02-08-2025 ADEQUACY Normal [facility] Comment on above: Order Comment: Speci men Type: FLUID SPECIMENOrdering Facility: [facility] Address: [address] [place] [address] Result Comment: Sati sfactory for interpretation. No endocervical component Performed By: #### L [id number] ####[facility] LABCLIA [id number] [place] [address] [place] CASE REPORT Normal [facility] Comment on above: Order Comment: Speci men Type: FLUID SPECIMENOrdering Facility: [facility] Address: [address] [place] [address] Result Comment: Gyne cologic Cytology Report Case: [id number] Authorizing Provider: Richie Newman APRN.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 Collected: 02/08/2025 03:47 PM Ordering Location: OB/Gynecology Received: 02/08/2025 04:53 PM First Screen: Andrew Richardson, CT, ASCP Specimen: Pap Test, ThinPrep, Cervix Performed By: #### L [id number] ####[facility] LABCLIA [id number] [address] [address] [place] CLINICAL HISTORY, CYTOLOGY, COMMUNITY CASE MANAGER Post Menopausal Normal [facility] Comment on above: Order Comment: Speci men Type: FLUID SPECIMENOrdering Facility: [facility] Address: [address] [place] [address] Performed By: #### L [id number] ####[facility] LABCLIA [id number] [address] [address] [place] FINAL PERFORMING LAB Normal [facility] Comment on above: Order Comment: Speci men Type: FLUID SPECIMENOrdering Facility: [facility] Address: [address] [place] [address] Result Comment: Tech nical component, speech pathology assistant screening performed at: [facility], [address] [place] [id number] CLIA: [id number] Diagnostic interpretation performed at: [facility], [address] [place] [address] [place] [address] CLIA# [id number] Physician Coder: Justus Pena MD Performed By: #### L [id number] ####[facility] LABCLIA [id number] [address] [place] [address] [place] INTERPRETATION, CYTOLOGY, COMMUNITY CASE MANAGER Normal [facility] Comment on above: Order Comment: Speci men Type: FLUID SPECIMENOrdering Facility: [facility] Address: [address] [place] [address] Result Comment: Nega tive for intraepithelial lesion or malignancy. at 1117 EDT Performed By: #### L [id number] ####[facility] LABCLIA [id number] [address] [address] [place] PAP DISCLAIMER COMMENT The Pap Smear is a screening test for cervical cancer. False negative results occur with all screening tests, emphasizing the need for rescreening at recommended intervals, and clinical correlation. Normal [facility] Comment on above: Order Comment: Speci men Type: FLUID SPECIMENOrdering Facility: [facility] Address: [address] [place] [address] Performed By: #### L [id number] ####[facility] LABCLIA [id number] [place] [id number] [place] PAP GUT PULLER COMMENT This specimen has be en analyzed by the FDA-approved DowntownTM System, which uses digital imaging and an enhanced artificial intelligence image analysis algorithm to identify rinaldi of interest on the microscopic slide, to assist the marriage and family therapist and pathologist in evaluating cells on ThinPrep Pap tests. Following analysis, rinaldi of interest on the microscopic slide selected by the algorithm are reviewed by a marriage and family therapist. If a sample requires hierarchical review, the pathologist will review the same rinaldi of interest selected by the algorithm prior to final interpretation. Normal [facility] Comment on above: Order Comment: Speci men Type: FLUID SPECIMENOrdering Facility: [facility] Address: [address] [place] [address] Performed By: #### L [id number] ####[facility] LABCLIA [id number] [place] [id number] [place] No Panel Informationon 02-06 IMPRESSION: Uterine fibroids. Ovaries not identified. Furniture Sales Associate: SKYLER Transcribe Date/Time: Feb 06 2025 1:45P Dictated by : ANAND LARA MD This examination was interpreted and the report reviewed and electronically signed by: ANAND LARA MD on Feb 06 2025 1:50PM EST DIVISION OF RADIOLOGY Radiology Study observation (narrative) [facility] No Panel InformationOrdered By: Ccf Provider on 02-06-2025 [facility] US FEMALE PELVIS TRANSABD LT Don 02-06-2025 [...] and stored in a permanent archive. MQ: [facility]_2021 COMPARISON: CT abdomen pelvis on 01/26/2025 [...] physiologic. IMPRESSION: Uterine fibroids. Ovaries not identified. Furniture Sales Associate: SKYLER Transcribe Date/Time: Feb 06 2025 1:45P Dictated by : ANAND LARA MD This examination was interpreted and the report reviewed and electronically signed by: ANAND LARA MD on Feb 06 2025 1:50PM EST [id number] Normal [facility] FEMALE PELVIS TRANSVAGon 02-06-2025 US FEMALE PELVIS [...] and stored in a permanent archive. MQ: [facility]2021 COMPARISON: CT abdomen pelvis on 01/26/2025 [...] physiologic. IMPRESSION: Uterine fibroids. Ovaries not identified. Furniture Sales Associate: [facility] HOSPITALIndu Transcribe Date/Time: Feb 06 2025 1:45P Dictated by : ANAND LARA MD This examination was interpreted and the report reviewed and electronically signed by: ANAND LARA MD on Feb 06 2025 1:50PM EST [id number] Normal [facility] US Pelvis limitedon 02-07-20 * * *Final [...] and stored in a permanent archive. MQ: [facility]_2021 COMPARISON: CT abdomen pelvis on 01/26/2025 RESULT: [...] is likely physiologic. DIVISION OF RADIOLOGY Provider, [facility] - 02/06/2025 * * *Final Report* [...] and stored in a permanent archive. MQ: [facility]_2021 COMPARISON: CT abdomen pelvis on 01/26/2025 [...] IMPRESSION IMPRESSION: Uterine fibroids. Ovaries not identified. Furniture Sales Associate: PSCB Transcribe Date/Time: Feb 06 2025 1:45P Dictated by : ANAND LARA MD This examination was interpreted and the report reviewed and electronically signed by: ANAND LARA MD on Feb 06 2025 1:50PM [facility] US Pelvis transvaginalon * * *Final Report* [...] and stored in a permanent archive. MQ: [facility]_2021 COMPARISON: CT abdomen pelvis on 01/26/2025 [...] is likely physiologic. DIVISION OF RADIOLOGY Provider, [facility] - 02/06/2025 * * *Final Report* [...] and stored in a permanent archive. MQ: [facility]_2021 COMPARISON: CT abdomen pelvis on 01/26/2025 [...] IMPRESSION IMPRESSION: Uterine fibroids. Ovaries not identified. Furniture Sales Associate: SKYLER Transcribe Date/Time: Feb 06 2025 1:45P Dictated by : ANAND LARA MD This examination was interpreted and the report reviewed and electronically signed by: ANAND LARA MD on Feb 06 2025 1:50PM EST [facility] CT ABD/PEL W IVCONon 16-[address] ABD/PEL W IVCON * * *Final Report* * * DATE OF EXAM: Jan 26 2025 8:12AM [facility] NAMED [facility] 0530 - CT ABD/PEL W IVCON / [...] Recommendation: US FEMALE PELVIS NON-OB NON TORSION ([id number]) Time Frame: as soon as possible, when the patient's clinical state allows. COMMUNICATION: Results will be communicated with the ordering provider via [employer] staff message or phone message by [facility] Support Services within 2 business days of report finalization. --END OF FINDING-- Furniture Sales Associate: SKYLER Transcribe Date/Time: Jan 26 2025 8:25A Dictated by : IZA JOSEPH MD This examination was interpreted and the report reviewed and electronically signed by: IZA JOSEPH MD on Jan 26 2025 8:36AM EST [id number] ACTIONABLE Invalid Interpretation Code [facility] CT Abdomen and Pelvis W cont rast IVOrdered By: Ccf Provider on 01-26-2025 Interpretation and review of laboratory results Abnormal [facility] Radiology Result ACTIONABLE Abnormal [facility] Comment on above: This report contains an [...] contact your provider for the next steps. [facility] CT Abdomen and Pelvis W cont rast Marie 01-26-2025 IMPRESSION: Nonspecific mild bladder wall thickening. Correlate with urinalysis. Suspected 3.0 cm uterine body fibroid. Additionally the vagina is fluid-filled. Findings can be further evaluated with pelvic ultrasound. ACTIONABLE RESULT: FOLLOW-UP Acuity: Actionable Findings: Female reproductive tract (pelvis, adnexa) Routing code: WH_1 Recommendation: US FEMALE PELVIS NON-OB NON TORSION ([id number]) Time Frame: as soon as possible, when the patient's clinical state allows. COMMUNICATION: Results will be communicated with the ordering provider via [employer] staff message or phone message by Imaging Support Services within 2 business days of report finalization. --END OF FINDING-- Furniture Sales Associate: SKYLER Transcribe Date/Time: Jan 26 2025 8:25A Dictated by : IZA JOSEPH MD This examination was interpreted and the report reviewed and electronically signed by: IZA JOSEPH MD on Jan 26 2025 8:36AM [facility] BlueseedI RADIOLOGY SYNGO * * *Final Report* * * DATE OF EXAM: Jan 26 2025 8:12AM FORMERLY NAMED [facility] 0530 - CT ABD/PEL W IVCON / [...] and/or scarring. Localizer images: No additional findings. [employer] RADIOLOGY SYNGO Provider, Ruslan Dalton cortez [place] - 01/26/2025 * * *Final Report* * * DATE OF EXAM: Jan 26 2025 8:12AM FORMERLY NAMED [facility] 0530 - CT ABD/PEL W IVCON / [...] Recommendation: US FEMALE PELVIS NON-OB NON TORSION ([id number]) Time Frame: as soon as possible, when the patient's clinical state allows. COMMUNICATION: Results will be communicated with the ordering provider via [employer] staff message or phone message by Imaging Support Services within 2 business days of report finalization. --END OF FINDING-- Furniture Sales Associate: SKYLER Transcribe Date/Time: Jan 26 2025 8:25A Dictated by : IZA JOSEPH MD This examination was interpreted and the report reviewed and electronically signed by: IZA JOSEPH MD on Jan 26 2025 8:36AM EST [facility] Radiology Study observation (narrative) [facility] Basic metabolic 2000 panelOr dered By: Meche Pratt on 01-25-2025 Anion gap [Moles/Vol] 13 mmol/L 8 - 15 mmol/L [facility] Calcium [Mass/Vol] 9.7 mg/dL 8.5 - 10. 2 mg/dL [facility] Chloride [Moles/Vol] 100 mmol/L 98 - 107 mmol/L [facility] CO2 [Moles/Vol] 28 mmol/L 22 - 30 mmol/L [facility] Creatinine [Mass/Vol] 0.52 mg/dL Low 0.58 - 0.96 mg/dL [facility] GFR/1.73 sq M.predicted among non-blacks MDRD (S/P/Bld) [Vol rate/Area] 109 mL/min/{1.73_m2} - PINF [facility] Comment on above: Estimated Glomerular Filtration Rate [...] [Mass/Vol] 97 mg/dL 74 - 99 mg/dL [facility] Comment on above: The [place] Diabete s Association (ADA) provides guidance for [...] Standards of Medical Care in Diabetes 2016, [place] Diabetes Association. Diabetes Care. 2016.39(Suppl 1). Interpretation and review of laboratory results Abnormal [facility] Potassium [Moles/Vol] 3.6 mmol/L Low 3.7 - 5.1 mmol/L [facility] Sodium [Moles/Vol] 141 mmol/L 136 - 144 mmol/L [facility] Urea nitrogen [Mass/Vol] 5 mg/dL Low 7 - 21 mg/dL [facility] Basic metabolic 2000 panelon 01-25-2025 Anion gap [Moles/Vol] 13 mmol/L Normal 8-15 [facility] Comment on above: Order Comment: Sg león Type: BLOOD SPECIMENOrdering Facility: [facility] Address: [address] [place] [address] Performed By: #### 2 4321-2 ####[facility] [id number] [place] [address] [place] Calcium [Mass/Vol] 9.7 mg/dL Normal 8.5-10.2 [facility] Comment on above: Order Comment: Vondai romelia Type: BLOOD SPECIMENOrdering Facility: [facility] Address: [address] [place] [address] Performed By: #### 2 4321-2 ####[facility] [id number] [place] [address] [place] Chloride [Moles/Vol] 100 mmol/L Normal 98-107 [facility] Comment on above: Order Comment: Vondai men Type: BLOOD SPECIMENOrdering Facility: [facility] Address: [address] [place] [address] Performed By: #### 2 4321-2 ####[facility] KRISTOPHERWNCLIA [id number] [place] [address] [place] CO2 [Moles/Vol] 28 mmol/L Normal 22-30 [facility] Comment on above: Order Comment: Speci men Type: BLOOD SPECIMENOrdering Facility: [facility] Address: [address] [place] [address] Performed By: #### 2 4321-2 ####[facility] [id number] [place] [address] [place] Creatinine [Mass/Vol] 0.52 mg/dL Low 0.58-0.96 [facility] Comment on above: Order Comment: Speci men Type: BLOOD SPECIMENOrdering Facility: [facility] Address: [address] [place] [address] Performed By: #### 2 4321-2 ####[facility] [id number] [place] [address] [place] Creatinine and Glomerular filtration rate.predicted panel (S/P/Bld) 109 mL/min/1.73m??? Normal >=60 [facility] Comment on above: Order Comment: Speci men Type: BLOOD SPECIMENOrdering Facility: [facility] Address: [address] [place] [address] Result Comment: Marilee mated Glomerular Filtration Rate [...] actual GFR. Performed By: #### 2 4321-2 ####[facility] [id number] [place] [address] [place] Glucose [Mass/Vol] 97 mg/dL Normal 74-99 [facility] Comment on above: Order Comment: Speci men Type: BLOOD SPECIMENOrdering Facility: [facility] Address: [address] [place], [place] [address] Result Comment: The [place] Diabetes Association (ADA) provides guidance for cutoff [...] Standards of Medical Care in Diabetes 2016, [place] Diabetes Association. Diabetes Care. 2016.39(Suppl 1). Performed By: #### 2 4321-2 ####[facility] [id number] [place] [address] [place] Potassium [Moles/Vol] 3.6 mmol/L Low 3.7-5.1 [facility] Comment on above: Order Comment: Speci men Type: BLOOD SPECIMENOrdering Facility: [facility] Address: [address] [place], [place] [address] Performed By: #### 2 4321-2 ####[facility] [id number] [place] [address] [place] Sodium [Moles/Vol] 141 mmol/L Normal 136-144 [facility] Comment on above: Order Comment: Speci men Type: BLOOD SPECIMENOrdering Facility: [facility] Address: [address] [place], [place] [address] Performed By: #### 2 4321-2 ####[facility] [id number] [place] [address] [place] Urea nitrogen [Mass/Vol] 5 mg/dL Low 7-21 [facility] Comment on above: Order Comment: Speci men Type: BLOOD SPECIMENOrdering Facility: [facility] Address: [address] [place], [place] [address] [id number] Performed By: #### 2 4321-2 ####[facility]EDR[facility]ATIONELIO [id number] [place] [id number] [place] CBC W Auto Differential pane l (Bld)on 01-25-2025 Basophils (Bld) [#/Vol] 0.05 10*3/uL [facility] Basophils/100 WBC (Bld) 0.5 % [facility] Differential cell count method Nom (Bld) Auto [facility] Eosinophils (Bld) [#/Vol] [facility] Eosinophils/100 WBC (Bld) 0 % [facility] Erythrocyte distribution width (RBC) [Ratio] 12.6 % 11.5 - 15.0 % [facility] Hematocrit (Bld) [Volume fraction] 40.5 % 36.0 - 46.0 % [facility] Hemoglobin (Bld) [Mass/Vol] 13.3 g/dL 11.5 - 15.5 g/dL [facility] Immature granulocytes (Bld) [#/Vol] 0.18 10*3/uL High [facility] Immature granulocytes/100 WBC (Bld) 2 % [facility] Interpretation and review of laboratory results Abnormal [facility] Lymphocytes (Bld) [#/Vol] 1.9 10*3/uL [facility] Lymphocytes/100 WBC (Bld) 20.8 % [facility] MCH (RBC) [Entitic mass] 29.8 pg 26.0 - 34.0 pg [facility] MCHC (RBC) [Mass/Vol] 32.8 g/dL 30.5 - 36.0 g/dL [facility] MCV (RBC) [Entitic vol] 90.8 fL 80.0 - 100.0 fL [facility] Monocytes (Bld) [#/Vol] 0.5 10*3/uL [facility] Monocytes/100 WBC (Bld) 5.5 % [facility] Neutrophils (Bld) [#/Vol] 6.49 10*3/uL [facility] Neutrophils/100 WBC (Bld) 71.2 % [facility] Nucleated RBC (Bld) [#/Vol] [facility] Nucleated RBC/100 WBC (Bld) [Ratio] 0 % /100 WBC [facility] Platelet mean volume (Bld) [Entitic vol] 9.5 fL 9.0 - 12.7 fL [facility] Platelets (Bld) [#/Vol] 373 10*3/uL [facility] RBC (Bld) [#/Vol] 4.46 10*6/uL 3.90 - 5.2 0 m/uL [facility] WBC (Bld) [#/Vol] 9.12 10*3/uL [facility] Basophils (Bld) [#/Vol] 0.05 10*3/uL Normal <0.11 [facility] Comment on above: Order Comment: Speci men Type: BLOOD SPECIMENOrdering Facility: [facility] Address: [address] [place] [address] Performed By: #### 5 7021-8 ####[facility] [id number] [place] [address] [place] Basophils/100 WBC (Bld) 0.5 % Normal [facility] Comment on above: Order Comment: Speci men Type: BLOOD SPECIMENOrdering Facility: [facility] Address: [address] [place] [address] Performed By: #### 5 7021-8 ####[facility] [id number] [place] [address] [place] Differential cell count method Nom (Bld) Auto Normal [facility] Comment on above: Order Comment: Speci men Type: BLOOD SPECIMENOrdering Facility: [facility] Address: [address] [place] [address] Performed By: #### 5 7021-8 ####[facility] [id number] [place] [address] [place] Eosinophils (Bld) [#/Vol] 10*3/uL Normal <0.46 [facility] Comment on above: Order Comment: Speci men Type: BLOOD SPECIMENOrdering Facility: [facility] Address: [address] [place] [address] Performed By: #### 5 7021-8 ####[facility] MORAWBALDEVLIA [id number] [place] [address] [place] Eosinophils/100 WBC (Bld) 0.0 % Normal [facility] Comment on above: Order Comment: Speci men Type: BLOOD SPECIMENOrdering Facility: [facility] Address: [address] [place] [address] Performed By: #### 5 7021-8 ####[facility] JACKYBALDEVLIA [id number] [place] [address] [place] Erythrocyte distribution width (RBC) [Ratio] 12.6 % Normal 11.5-15.0 [facility] Comment on above: Order Comment: Speci men Type: BLOOD SPECIMENOrdering Facility: [facility] Address: [address] [place] [address] Performed By: #### 5 7021-8 ####[facility]DEVL[facility] [id number] [place] [address] [place] Hematocrit (Bld) [Volume fraction] 40.5 % Normal 36.0-46.0 [facility] Comment on above: Order Comment: Speci men Type: BLOOD SPECIMENOrdering Facility: [facility] Address: [address] [place] [address] Performed By: #### 5 7021-8 ####[facility] MORAWNCLIA [id number] [place] [address] [place] Hemoglobin (Bld) [Mass/Vol] 13.3 g/dL Normal 11.5-15.5 [facility] Comment on above: Order Comment: Speci men Type: BLOOD SPECIMENOrdering Facility: [facility] Address: [address] [place] [address] Performed By: #### 5 7021-8 ####[facility] [id number] [place] [address] [place] Immature granulocytes (Bld) [#/Vol] 0.18 10*3/uL High <0.10 [facility] Comment on above: Order Comment: Speci men Type: BLOOD SPECIMENOrdering Facility: [facility] Address: [address] [place] [address] Performed By: #### 5 7021-8 ####[facility] [id number] [place] [address] [place] Immature granulocytes/100 WBC (Bld) 2.0 % Normal [facility] Comment on above: Order Comment: Speci men Type: BLOOD SPECIMENOrdering Facility: [facility] Address: [address] [place] [address] Performed By: #### 5 7021-8 ####[facility] [id number] [place] [address] [place] Lymphocytes (Bld) [#/Vol] 1.90 10*3/uL Normal 1.00-4.00 [facility] Comment on above: Order Comment: Speci men Type: BLOOD SPECIMENOrdering Facility: [facility] Address: [address] [place] [address] Performed By: #### 5 7021-8 ####[facility] [id number] [place] [address] [place] Lymphocytes/100 WBC (Bld) 20.8 % Normal [facility] Comment on above: Order Comment: Speci men Type: BLOOD SPECIMENOrdering Facility: [facility] Address: [address] [place] [address] Performed By: #### 5 7021-8 ####[facility]NCLI [id number] [place] [address] [place] MCH (RBC) [Entitic mass] 29.8 pg Normal 26.0-34.0 [facility] Comment on above: Order Comment: Speci men Type: BLOOD SPECIMENOrdering Facility: [facility] Address: [address] [place] [address] Performed By: #### 5 7021-8 ####[facility] [id number] [place] [address] [place] MCHC (RBC) [Mass/Vol] 32.8 g/dL Normal 30.5-36.0 [facility] Comment on above: Order Comment: Speci men Type: BLOOD SPECIMENOrdering Facility: [facility] Address: [address] [place] [address] Performed By: #### 5 7021-8 ####[facility] [id number] [place] [address] [place] MCV (RBC) [Entitic vol] 90.8 fL Normal 80.0-100.0 [facility] Comment on above: Order Comment: Speci men Type: BLOOD SPECIMENOrdering Facility: [facility] Address: [address] [place] [address] Performed By: #### 5 7021-8 ####[facility] [id number] [place] [address] [place] Monocytes (Bld) [#/Vol] 0.50 10*3/uL Normal <0.87 [facility] Comment on above: Order Comment: Speci men Type: BLOOD SPECIMENOrdering Facility: [facility] Address: [address] [place] [address] Performed By: #### 5 7021-8 ####[facility] [id number] [place] [address] [place] Monocytes/100 WBC (Bld) 5.5 % Normal [facility] Comment on above: Order Comment: Speci men Type: BLOOD SPECIMENOrdering Facility: [facility] Address: [address] [place] [address] Performed By: #### 5 7021-8 ####[facility] MILLTOWNCLIA [id number] [place] [address] [place] Neutrophils (Bld) [#/Vol] 6.49 10*3/uL Normal 1.45-7.50 [facility] Comment on above: Order Comment: Speci men Type: BLOOD SPECIMENOrdering Facility: [facility] Address: [address] [place] [address] Performed By: #### 5 7021-8 ####[facility] MILLWNCLIA [id number] [place] [address] [place] Neutrophils/100 WBC (Bld) 71.2 % Normal [facility] Comment on above: Order Comment: Speci men Type: BLOOD SPECIMENOrdering Facility: [facility] Address: [address] [place] [address] Performed By: #### 5 7021-8 ####[facility] [id number] [place] [address] [place] Nucleated RBC (Bld) [#/Vol] 10*3/uL Normal <0.01 [facility] Comment on above: Order Comment: Speci men Type: BLOOD SPECIMENOrdering Facility: [facility] Address: [address] [place] [address] Performed By: #### 5 7021-8 ####[facility] MILLTOWNCLIA [id number] [place] [address] [place] Nucleated RBC/100 WBC (Bld) [Ratio] 0.0 /100 WBC Normal [facility] Comment on above: Order Comment: Speci men Type: BLOOD SPECIMENOrdering Facility: [facility] Address: [address] [place] [address] Performed By: #### 5 7021-8 ####[facility] MILLLORRAINENCLIA [id number] [place] [address] [place] Platelet mean volume (Bld) [Entitic vol] 9.5 fL Normal 9.0-12.7 [facility] Comment on above: Order Comment: Speci men Type: BLOOD SPECIMENOrdering Facility: [facility] Address: [address] [place] [address] Performed By: #### 5 7021-8 ####[facility] [id number] [place] [address] [place] Platelets (Bld) [#/Vol] 373 10*3/uL Normal 150-400 [facility] Comment on above: Order Comment: Speci men Type: BLOOD SPECIMENOrdering Facility: [facility] Address: [address] [place] [address] Performed By: #### 5 7021-8 ####[facility] [id number] [place] [address] [place] RBC (Bld) [#/Vol] 4.46 10*6/uL Normal 3.90-5.20 [facility] Comment on above: Order Comment: Speci men Type: BLOOD SPECIMENOrdering Facility: [facility] Address: [address] [place] [address] Performed By: #### 5 7021-8 ####[facility] [id number] [place] [address] [place] WBC (Bld) [#/Vol] 9.12 10*3/uL Normal 3.70-11.00 [facility] Comment on above: Order Comment: Speci men Type: BLOOD SPECIMENOrdering Facility: [facility] Address: [address] [place] [address] Performed By: #### 5 7021-8 ####[facility] [id number] [place] [address] [place] CNOVon 01-25-2025 CNOV Office Visit (INTMWS ) SANTOS ALLAN ([id number]) 1965 F Date Time Provider Department 01/25/25 9:40 AM ANTONIO FIOR INTFRANCA During your visit today, we recorded the following information about you: Pulse Respiration Blood pressure Weight 87/minute 16/minute 134/94 84.4 kg Fior Alvarez APRN.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 01/25/2025 3:30 PM Signed CC: Patient presents with: Abdominal Pain: Abdominal pain HPI Santos Allan is a 59 year old female who presents today for abdominal pain. Recording using [employer] software for draft documentation of the visit was discussed with the patient/authorized customer retention representative; all questions welcomed and answered. Patient/authorized customer retention representative agreed to proceed Lower Abdominal Pain [...] omeprazole (PRILOSEC (more content not included)... Normal [facility] UA DIP, URINE (POC)on 2024 BILIRUBIN UA (POCT) Negative Negative [facility] CLARITY UA (POCT) Clear [facility] COLOR UA (POCT) Yellow [facility] GLUCOSE UA (POCT) Negative Negative mg/dL [facility] Hemoglobin Ql (U) Negative [facility] KETONE UA (POCT) Negative Negative mg/dL [facility] LEUKOCYTES UA (POCT) Negative Negative [facility] NITRITE UA (POCT) Negative Negative [facility] PH UA (POCT) 6 4.5 - 8.0 [facility] Protein Ql (U) Negative Negative mg/dL [facility] SPECIFIC GRAVITY UA (POCT) 1.01 1.005 - 1.030 [facility] UROBILINOGEN UA (POCT) 0.2 Normal E.U./dL [facility] Location:[address], [place], [address] [facility] 01-24-2025 CNPN Telephone (INTMWS) SANTOS ALLAN ([id number]) 1965 F Date Time Provider Department 01/24/25 ANA BOLAÑOS During your visit today, we recorded the following information about you: Natasha Johns LPN 01/24/2025 2:40 PM Signed Fax PHILL gipson from [facility]. This was completed and faxed back to the pharmacy on the form along with records as they were asking for. Natasha Johns LPN 01/29/2025 1:43 PM Signed Prior authorization approved Payer: [facility] [phone] Note from payer: CaseId:[id number];Status:Appr radha;Review Type:Prior Auth;Coverage Start Date:01/24/2025;Coverage End Date:01/29/2026; [...] its destination. To be filled at: e- [facility] - [place] [phone] [place] [phone] Pt notified via my chart. Allergies As of Date: 01/24/2025 Noted Allergy Reaction GABAPENTIN 08/24/2019 7 - Swelling HYDROCODONE-ACETAMINOPHEN 08/24/2019 9 - Itching IMITREX (SUMATRIPTAN) 07/25/2007 Comments: Face went numb PREDNISONE 09/05/2024 1 - Mental Status Change Date Reviewed: 11/10/2024 Reviewed by: Gi Tejeda MA - Fully Assessed Reason for Visit: Insurance Authorization [[id number]] Prescriptions as of 01/29/2025 - phenazopyridine (PYRIDIUM) [...] 01/18/2015 03/02/2016 (more content not included)... Normal [facility] Folate SerPl-mCncon 01-23-20 25 Folate [Mass/Vol] 2.2 ng/mL Low >4.7 [facility] Comment on above: Order Comment: Speci men Type: BLOOD SPECIMENOrdering Facility: [facility] Address: [address] [place] [address] [place] [address] Performed By: #### 2 132-9, 2284-8, 2885-2 ####[facility] LABCLIA [id number] [place] [address] [place] HbA1c (Bld)on 01-22-2025 Average glucose Estimated from glycated hemoglobin (Bld) [Mass/Vol] 80 mg/dL Normal [facility] Comment on above: Order Comment: Sg men Type: BLOOD SPECIMENOrdering Facility: [facility] Address: [address] [place] [address] Result Comment: eAG: (Estimated average glucose) is a calculated value from HgbA1c and is customer retention representative of the average blood glucose level in the last 2-3 month period. Performed By: #### 5 5454-3 ####[facility] LABCLIA [id number] [place] [address] [place] HbA1c (Bld) [Mass fraction] 4.4 % Normal 4.3-5.6 [facility] Comment on above: Order Comment: Sg león Type: BLOOD SPECIMENOrdering Facility: [facility] Address: [address] [place] [address] Result Comment: [place] Diabetes Association guidelines indicate that patients with HgbA1c in the range 5.7-6.4% are at increased risk for development of diabetes, and intervention by lifestyle modification may be beneficial. HgbA1c greater or equal to 6.5% is considered diagnostic of diabetes. Performed By: #### 5 5454-3 ####[facility] LABIA [id number] [place] [address] [place] PROTEIN ELECTROPHORESIS SERU M WITH MICA (P)on 01-22-2025 Albumin [Mass/Vol] 4.13 g/dL Normal 3.43-5.41 [facility] Comment on above: Order Comment: Vondai men Type: BLOOD SPECIMENOrdering Facility: [facility] Address: [address] [place] [address] Performed By: #### L [id number] ####[facility] LABIA [id number] [place] [address] [place] Alpha 1 globulin Elph [Mass/Vol] 0.30 g/dL Normal 0.18-0.43 [facility] Comment on above: Order Comment: Speci men Type: BLOOD SPECIMENOrdering Facility: [facility] Address: [address] [place] [address] Performed By: #### L [id number] ####[facility] LABCLIA [id number] [place] [address] [place] Alpha 2 globulin Elph [Mass/Vol] 0.92 g/dL Normal 0.42-0.98 [facility] Comment on above: Order Comment: Speci men Type: BLOOD SPECIMENOrdering Facility: [facility] Address: [address] [place] [address] Performed By: #### L [id number] ####[facility] LABIA [id number] [place] [address] [place] Beta globulin Elph [Mass/Vol] 0.79 g/dL Normal 0.61-1.17 [facility] Comment on above: Order Comment: Speci men Type: BLOOD SPECIMENOrdering Facility: [facility] Address: [address] [place] [address] Performed By: #### L [id number] ####[facility] LABCLIA [id number] [place] [address] [place] COMMENT (SERUM PROT ELECTRO) Monoclonal Protein analysis (immunofixation) is not indicated. Normal [facility] Comment on above: Order Comment: Speci men Type: BLOOD SPECIMENOrdering Facility: [facility] Address: [address] [place] [address] Performed By: #### L [id number] ####[facility] LABCLIA [id number] [place] [id number] [place] Gamma globulin Elph [Mass/Vol] 0.56 g/dL Normal 0.53-1.51 [facility] Comment on above: Order Comment: Speci men Type: BLOOD SPECIMENOrdering Facility: [facility] Address: [address] [place] [address] Performed By: #### L [id number] ####[facility] LABCLIA [id number] [place] [address] [place] M-PROTEIN LOCATION Normal [facility] Comment on above: Order Comment: Speci men Type: BLOOD SPECIMENOrdering Facility: [facility] Address: [address] [place] [address] Result Comment: Not Applicable. Performed By: #### L [id number] ####[facility] LABCLIA [id number] [place] [address] [place] Protein Fractions [Interp] No definitive M protein is identified on protein electrophoresis. Normal No definitive M protein is identified on protein electrophor esis. [facility] Comment on above: Order Comment: Speci men Type: BLOOD SPECIMENOrdering Facility: [facility] Address: [address] [place] [address] Performed By: #### L [id number] ####[facility] LABIA [id number] [address] [place] Protein.monoclonal Elph [Mass/Vol] 0.00 g/dL Normal <=0.00 [facility] Comment on above: Order Comment: Speci men Type: BLOOD SPECIMENOrdering Facility: [facility] Address: [address] [place] [address] Performed By: #### L [id number] ####[facility] LABIA [id number] [place] [address] [place] SPE STAFF REVIEW Reviewed by Heidi Og MD Normal [facility] Comment on above: Order Comment: Speci men Type: BLOOD SPECIMENOrdering Facility: [facility] Address: [address] [place] [address] Performed By: #### L [id number] ####[facility] LABCLIA [id number] [place] [id number] [place] Prot SerPl-mCncon 01-22-2025 Protein [Mass/Vol] 6.7 g/dL Normal 6.3-8.0 [facility] Comment on above: Order Comment: Speci men Type: BLOOD SPECIMENOrdering Facility: [facility] Address: [address] [place], [place] [address] Performed By: #### 2 132-9, 2284-8, 2885-2 ####[facility] LABIA [id number] [place] [address] [place] VITAMIN B1 (THIAMINE), WHOLE BLOODon 01-22-2025 Thiamine (Bld) [Moles/Vol] 247.5 nmol/L High 84.3-213.3 [facility] Comment on above: Order Comment: Speci romelia Type: BLOOD SPECIMENOrdering Facility: [facility] Address: [address] [place] [address] Result Comment: This assay measures the concentration of thiamine diphosphate (TDP), the primary active form of vitamin B1. Approximately 90 percent of vitamin B1 present in whole blood is TDP. Thiamine and thiamine monophosphate, which comprise the remaining 10 percent, are not measured. This test was developed, and its performance characteristics determined by the [facility] Department of Pathology and Laboratory Medicine. It has not been cleared or approved by the FDA. The [facility] Department of Pathology and Laboratory Medicine is regulated under CLIA as qualified to perform high-complexity testing. This test is used for clinical purposes. It should not be regarded as investigational or for research. Performed By: #### B 1WB ####[facility] LABIA [id number] [place] [id number] [place] VITAMIN B6/PYRIDOXINon 01-22 VITAMIN B6 9.5 nmol/L Low 20.0-125.0 [facility] Comment on above: Order Comment: Speci men Type: BLOOD SPECIMENOrdering Facility: [facility] Address: [address] [place] [address] Result Comment: INTE RPRETIVE INFORMATION: Vitamin B6 (Pyridoxal 5-Phosphate) Pyridoxal 5'-phosphate measured in a specimen collected following an 8-hour or overnight fast accurately indicates vitamin B6 nutritional status. Non-fasting specimen concentration reflects recent vitamin intake. This test was developed and its performance characteristics determined by [employer]. It has not been cleared or approved by the [place] Food and Drug Administration. This test was performed in a CLIA certified laboratory and is intended for clinical purposes. Performed By: [facility] [address] [place] [address] Physician Coder: Radha Shin MD, PhD CLIA Number: [id number] Performed By: #### V ITB6 ####[facility] [id number] [place] [address] Vit B12 SerPl-mCncon 025 Cobalamin (Vitamin B12) [Mass/Vol] 515 pg/mL Normal 232-1245 [facility] Comment on above: Order Comment: Speci men Type: BLOOD SPECIMENOrdering Facility: [facility] Address: [address] [place] [address] Performed By: #### 2 132-9, 2284-8, 2885-2 ####[facility] LABCLIA [id number] [address] [place] XR CERVICAL 4V AP/LAT/OBLon 01-22-2025 [...] Postoperative and degenerative changes with intact hardware. Furniture Sales Associate: [employer] Transcribe Date/Time: Jan 25 2025 9:15P Dictated by : RADHA OCAMPO MD This examination was interpreted and the report reviewed and electronically signed by: RADHA OCAMPO MD on Jan 25 2025 9:16PM EST [id number] Normal [facility] XR LUMBAR 3V AP/LAT/L5-S1on 01-22-2025 XR LUMBAR [...] spine are presented. FINDINGS: There are five hqi-qpa-khmjaaa lumbar vertebrae. No fracture or subluxations are noted. There is L5-S1 disc space narrowing, with endplate sclerosis. L1-2 disc space narrowing is also noted. There is mild to moderate osteophyte formation. Kissing spine seen on lateral view. Others: Calcifications or radiopaque opacities projecting over the right abdomen. IMPRESSION: Lumbar spine degenerative changes with multilevel disc space narrowing. Furniture Sales Associate: [employer] Trans[employer] Date/Time: Jan 24 2025 5:14P Dictated by : ANAND LARA MD This examination was interpreted and the report reviewed and electronically signed by: ANAND LARA MD on Jan 24 2025 5:16PM EST [id number] Normal [facility] Plastic Surgery Visit Report on 12-29-2024 Plastic Surgery Visit Report [facility] [address], [address] [place] [address] OFFICE VISIT Date of Service: 12/29/24 MR#: [id number] Acct: [id number] Name: SANTOS ALLAN Rep #: [id number] : 1965 Provider: Dr. Denver Casillas MD Age/Sex: 59/F Location: [facility] Status: Signed Intake Vital Signs 3 12/15/24 [...] subcut QWEEK 10/12/2412/29 History subcutaneous pen injector (Jimmy) gabapentin 400 [...] Op Diagnoses Mucous cyst of finger M67.449 [facility] Medical History Wears glasses Thyroid disease [...] Mental dis (more content not included)... Normal [facility] Plastic Surgery Visit Report on 12-15-2024 Plastic Surgery Visit Report [facility] [address], [address] [place], [place] [address] OFFICE VISIT Date of Service: 12/15/24 MR#: [id number] Acct: [id number] Name: SANTOS ALLAN FRANCI Rep #: [id number] : 1965 Provider: CY corado Age/Sex: 59/F Location: [facility] Status: Signed Pt seen evaluated w/GERRI. I [...] 12/15/24 History multivitamin 1 tab PO DAILY 08/09/23 12/15/24 H istory omeprazole 20 mg capsule,delayed 20 [...] subcut QWEEK 10/12/2412/15 History subcutaneous pen injector (Nedunterrance) gabapentin 400 mg capsule 400 mg PO [...] Op Diagnoses Mucous cyst of finger M67.449 [facility] Medical History Wears glasses Thyroid disease [...] status H/O (more content not included)... Normal [facility] MR/BMS.BPon 12-07-2024 MR/BMS.BP [facility] [address], [address] [place] [id number] OFFICE VISIT Date of Service: 12/07/24 MR#: [id number] Acct: [id number] Name: SANTOS ALLAN FRANCI Rep #: [id number] : 1965 Provider: Dr. Josue Melgoza se, DO Age/Sex: 59/F Location: [facility] Status: Signed Intake Vital Signs 08/09/24 15:54 12/01/24 15:05 12/07/24 15:58 Height 5 ft 6.75 in 5 ft 6 in 5 ft 6 in BP 145/90 H Blood Pressure Location Lt brachial Position Sitting Pulse 89 Pulse Source Monitor BP Intake Visit Reasons: 4mfu Medical Office Administrator Required: No Accompanied by: Self Is patient [...] subcut QWEEK 10/12/2412/07 History subcutaneous pen injector (Nedunterrance) gabapentin 400 mg capsule 400 mg PO [...] History p (more content not included)... Normal [facility] CBC W/Diff, Automatedon 11-12 Absolute Lymph 2.30 X10 3/uL Normal 0.83-4.51 [facility] Comment on above: Performed By: #### L 100.0100, L501.1105, L500.3400 #### [facility] [address] [place], [address] Absolute Neut 2.9 X10 3/uL Normal 2.0-7.7 [facility] Comment on above: Performed By: #### L 100.0100, L501.1105, L500.3400 #### [facility] [address] [place], [address] Basophils/100 WBC (Bld) 1.0 % Normal 0-1 [facility] Comment on above: Performed By: #### L 100.0100, L501.1105, L500.3400 #### [facility] [address] [place], [address] Eosinophils/100 WBC (Bld) 2.1 % Normal 0-5 [facility] Comment on above: Performed By: #### L 100.0100, L501.1105, L500.3400 #### [facility] [address] [place], [address] Erythrocyte distribution width (RBC) [Ratio] 12.8 % Normal 11.6-14.6 [facility] Comment on above: Performed By: #### L 100.0100, L501.1105, L500.3400 #### [facility] [address] [place], [address] Hematocrit (Bld) [Volume fraction] 42.9 % Normal 37-47 [facility] Comment on above: Performed By: #### L 100.0100, L501.1105, L500.3400 #### [facility] [address] [place], [address] Hemoglobin (Bld) [Mass/Vol] 14.3 g/dL Normal 12.0-15.0 [facility] Comment on above: Performed By: #### L 100.0100, L501.1105, L500.3400 #### [facility] [address] [place], [address] IG% 0.300 Normal 0.0-0.9 [facility] Comment on above: Result Comment: IG% - Immature Granulocytes (promyelocytes, myelocytes and metamyelocytes) > 1% indicates that a LEFT SHIFT is Present. Performed By: #### L 100.0100, L501.1105, L500.3400 #### [facility] [address] [place], [address] Lymphocytes/100 WBC (Bld) 39.7 % Normal 19-41 [facility] Comment on above: Performed By: #### L 100.0100, L501.1105, L500.3400 #### [facility] [address] [place], [address] MCH (RBC) [Entitic mass] 30.2 pg Normal 27.0-32.0 [facility] Comment on above: Performed By: #### L 100.0100, L501.1105, L500.3400 #### [facility] [address] [place], [address] MCHC (RBC) [Mass/Vol] 33.3 g/dL Normal 32-36 [facility] Comment on above: Performed By: #### L 100.0100, L501.1105, L500.3400 #### [facility] [address] [place], [address] MCV (RBC) [Entitic vol] 90.7 fL Normal 81-99 [facility] Comment on above: Performed By: #### L 100.0100, L501.1105, L500.3400 #### [facility] [address] [place], [address] Monocytes/100 WBC (Bld) 7.4 % Normal 0-10 [facility] Comment on above: Performed By: #### L 100.0100, L501.1105, L500.3400 #### [facility] [address] [place], [address] Neutrophils/100 WBC (Bld) 49.5 % Normal 47-70 [facility] Comment on above: Performed By: #### L 100.0100, L501.1105, L500.3400 #### [facility] [address] [place], [address] Nucleated RBC (Bld) [#/Vol] 0 10*3/uL Normal 0-5 [facility] Comment on above: Performed By: #### L 100.0100, L501.1105, L500.3400 #### [facility] [address] [place], [address] Platelet mean volume (Bld) [Entitic vol] 10.1 fL Normal 6.2-12.0 [facility] Comment on above: Performed By: #### L 100.0100, L501.1105, L500.3400 #### [facility] [address] [place], [address] Platelets (Bld) [#/Vol] 286 10*3/uL Normal 150-450 [facility] Comment on above: Performed By: #### L 100.0100, L501.1105, L500.3400 #### [facility] [address] [place], [address] RBC (Bld) [#/Vol] 4.73 10*6/uL Normal 4.2-5.4 [facility] Comment on above: Performed By: #### L 100.0100, L501.1105, L500.3400 #### [facility] [address] [place], [address] RDW SD 42.4 fl Normal 35.1-43.9 [facility] Comment on above: Performed By: #### L 100.0100, L501.1105, L500.3400 #### [facility] [address] [place], [address] WBC (Bld) [#/Vol] 5.8 10*3/uL Normal 4.4-11.0 [facility] Comment on above: Performed By: #### L 100.0100, L501.1105, L500.3400 #### [facility] [address] [place], [address] Liver Profileon 12-05-2024 Albumin [Mass/Vol] 4.2 g/dL Normal 3.5-5.0 [facility] Comment on above: Performed By: #### L 100.0100, L501.1105, L500.3400 #### [facility] [address] [place], [address] ALK PHOS 92 U/L Normal 35-104 [facility] Comment on above: Performed By: #### L 100.0100, L501.1105, L500.3400 #### [facility] [address] [place], [address] ALT [Catalytic activity/Vol] 13 U/L Normal <=34 [facility] Comment on above: Performed By: #### L 100.0100, L501.1105, L500.3400 #### [facility] [address] [place], [address] AST [Catalytic activity/Vol] 24 U/L Normal <=31 [facility] Comment on above: Performed By: #### L 100.0100, L501.1105, L500.3400 #### [facility] [address] [place], [address] Bilirubin [Mass/Vol] 0.38 mg/dL Normal 0.00-1.30 [facility] Comment on above: Performed By: #### L 100.0100, L501.1105, L500.3400 #### [facility] [address] [place], [address] Bilirubin.direct [Mass/Vol] 0.16 mg/dL Normal 0.00-0.30 [facility] Comment on above: Performed By: #### L 100.0100, L501.1105, L500.3400 #### [facility] [address] [place], [address] Globulin (S) [Mass/Vol] 2.8 g/dL Normal 2.2-4.2 [facility] Comment on above: Performed By: #### L 100.0100, L501.1105, L500.3400 #### [facility] [address] [place], [address] T PROT 7.0 g/dL Normal 5.9-8.4 [facility] Comment on above: Performed By: #### L 100.0100, L501.1105, L500.3400 #### [facility] [address] [place], [address] Serum Creatinine AND GFRon 0 12-05-2024 Creatinine [Mass/Vol] 0.62 mg/dL Low 0.70-1.20 [facility] Comment on above: Performed By: #### L 100.0100, L501.1105, L500.3400 #### [facility] [address] [place], [address] GFR/1.73 sq M.predicted among non-blacks MDRD (S/P/Bld) [Vol rate/Area] 104 mL/min/{1.73_m2} Normal >60 [facility] Comment on above: Result Comment: mL/m in/1.73m2 CKD-EPI Creatinine Equation (2020) Performed By: #### L 100.0100, L501.1105, L500.3400 #### [facility] [address] [place], [place], [address] Plastic Surgery Visit Report on 12-04-2024 Plastic Surgery Visit Report [facility] [address], [address] [place], [place] [address] OFFICE VISIT Date of Service: 12/05/24 MR#: [id number] Acct: [id number] Name: SANTOS ALLAN FRANCI Rep #: [id number] : 1965 Provider: Dr. Denver Casillas MD Age/Sex: 58/F Location: [place] [address] Status: Signed Intake Vital Signs 12/01/24 15:05 [...] subcut QWEEK 10/12/2412/05 History subcutaneous pen injector (Mounjaro) gabapentin 400 [...] Op Diagnoses Mucous cyst of finger M67.449 [facility] Medical History Wears glasses Thyroid disease [...] Other Col (more content not included)... Normal [facility] Plastic Surgery Visit Report on 12-01-2024 Plastic Surgery Visit Report [facility] [address], [address] [place] [address] OFFICE VISIT Date of Service: 12/01/24 MR#: [id number] Acct: [id number] Name: SANTOS ALLAN Rep #: [id number] : 1965 Provider: Dr. Denver Casillas MD Age/Sex: 58/F Location: [facility] Status: Signed Intake Vital Signs 11/15/24 09:18 [...] subcut QWEEK 10/12/2412/01 History subcutaneous pen injector (Mounjaro) gabapentin 400 [...] op left index finger, c/o finger pain / Subjective Details: Patient is doing well. She [...] Op Diagnoses Mucous cyst of finger M67.449 [facility] Medical History (Reviewed 12/01/24 @ 15:42 by Sobeida Bailey HOTEL BAGGAGE HANDLER, HOTEL BAGGAGE HANDLER-C) Wears glasses Thyroid disease Back pain Injury of head and neck History of hiatal hernia Gastric reflux Sleep apnea History of echocardiogram JINNY (generalized anxiety disorder) Bipolar II disorder Sjogrens syndrome Fibromyalgia Vitamin deficiency Pneumonia Osteoarthritis Neuropathy IBS (irritable bowel syndrome) High triglycerides High cholesterol Hypertension Migraines Gastrointestinal problem Diabetes Carpal tunnel syndrome Bone fracture Back problem Arthritis Anemia Surgical History (Reviewed 12/01/24 @ 15:42 by Sobeida Bailey HOTEL BAGGAGE HANDLER, HOTEL BAGGAGE HANDLER-C) Hx of cervical spine surgery H/O gastric sleeve Previous ba (more content not included)... Normal [facility] Plastic Surgery Visit Report on 11-24-2024 Plastic Surgery Visit Report [facility] [address], [address] [place] [address] OFFICE VISIT Date of Service: 11/24/24 MR#: [id number] Acct: [id number] Name: SANTOS ALLAN FRANCI Rep #: [id number] : 1965 Provider: Dr. Denver Casillas MD Age/Sex: 58/F Location: [facility] Status: Signed Intake Vital Signs 11/15/24 09:18 [...] subcut QWEEK 10/12/2411/24 History subcutaneous pen injector (Jimmy) gabapentin 400 mg capsule 400 mg PO 3XD 11/08/24 11/24/24 Hi story levothyroxine 44 mcg capsule 44 mcg PO SUTUTHSA 11/08/24 History cephalexin 500 mg capsule 500 mg PO TID 5 days #15 caps /02/0411/24/24 Rx oxycodone 5 mg tablet 5 mg [...] Op Diagnoses Mucous cyst of finger M67.449 [facility] Medical History Wears glasses Thyroid disease [...] History (Reviewed (more content not included)... Normal [facility] Plastic Surgery Visit Report on 11-17-2024 Plastic Surgery Visit Report [facility] [address], [address] [place] [address] OFFICE VISIT Date of Service: 11/17/24 MR#: [id number] Acct: [id number] Name: SANTOS ALLAN Rep #: [id number] : 1965 Provider: Dr. Denver Casillas MD Age/Sex: 58/F Location: [facility] Status: Signed Intake Vital Signs 11/15/24 [...] Op Diagnoses Mucous cyst of finger M67.449 [facility] Medical History Wears glasses Thyroid disease [...] History (Reviewe (more content not included)... Normal [facility] Operative Reporton 5 Operative Report [facility] Medical Records Department [address] [place] [address] Operative Report 11/16/24 0645 MR#: [id number] Acct: [id number] Name: SANTOS ALLAN FRANCI Rep #: [id number] : 1965 58 From: Denver Casillas MD PCP: Dr. Ana Bolaños MD Status:[facility] Location: [facility] Operative Report (Standard) Operative Information Date of Procedure: 11/15/24 Pre-Operative Diagnosis: Left index finger mucous cyst Post-Operative Diagnosis: Same Surgery/Procedure Performed: 1) Excision of the left index finger mucous cyst (CPT: 73492) chief building inspector: No Type of Anesthesia: MAC/Supplemental (7 cc [...] Dr. Denver Casillas MD * Signed Normal [facility] H AND P Exam - Surgicalon H&P Exam - Surgical [facility] Medical Records Department [address] [place] [address] H P Exam - Surgical 11/15/24 0855 MR#: [id number] Acct: [id number] Name: SANTOS ALLAN Rep #: [id number] : 1965 58 From: Denver Casillas MD PCP: Dr. Ana Bolaños MD Status:[facility] Location: [place] [address] HPI - General HPI Narrative Santos Allan is a 58 YO FM female referred by [facility] for a cyst on the left [...] some fluid. Ready to proceed with surgery. [facility] Medical History Wears glasses Thyroid disease [...] tonsillectomy Social History (more content not included)... Normal [facility] MR/POSTOP.[facility] 11-15-2024 MR/POSTOP.[facility] Medical Records Department [address] [place] [address] Anesthesia Postop Eval I 11/15/24 1133 MR#: [id number] Acct: [id number] Name: SANTOS ALLAN Rep #: [id number] : 1965 58 From: Isa Hines STRUCTURES ASSEMBLER PCP: Dr. Ana Bolaños MD Status:REG [facility] Race: C Location: [place] [address] Anesthesia: Postop Eval I Current Vital Signs [...] Anesthesia document: Postop Eval 1 completed: Yes 11/15/24 1133 Date Isa Hines STRUCTURES ASSEMBLER Cosigner Signature: Date CC: Signed Normal [facility] [id number] 11-15-2024 [facility] Medical Records Department [address] [place] [address] Anesthesia Postop Eval II 11/15/24 1147 MR#: [id number] Acct: [id number] Name: SANDYRACHELSANTOS Quesada FRANCI Rep #: [id number] : 1965 58 From: Rodo Laurent MD PCP: Dr. Ana Bolaños MD Status:REG [facility] [place] [place] Race: C Location: [place] [address] Anesthesia Postop Eval I Sum Postop Eval Completion status Anesthesia document: Postop Eval 1 completed: Yes Anesthesia Postop Eval I Summary Anesthesia Postop Eval I Summary: Anesthesia Postop Eval I: Assessment Summary Airway patent Yes 11/15/24 11:33 STRUCTURES ASSEMBLER.LMIL Spontaneous unlabored Yes 11/15/24 11:33 STRUCTURES ASSEMBLER.LMIL respirations Mental status Awake 11/15/24 11:33 STRUCTURES ASSEMBLER.LMIL nausea No 11/15/24 11:33 STRUCTURES ASSEMBLER.LMIL Vomiting No 11/15/24 11:33 STRUCTURES ASSEMBLER.LMIL Anesthesia Postop Eval I: Fluid Summary Crystalloid volume administer 10 11/15/24 11:33 STRUCTURES ASSEMBLER.LMIL (ml) Colloids volume administered ( ml) Blood Product volume administered (ml) Total IV fluid infused 10 11/15/24 11:33 STRUCTURES ASSEMBLER.LMIL Anesthesia Postop Eval I: Summary Notes Anesthesia Complication No 11/15/24 11:33 STRUCTURES ASSEMBLER.LMIL Anesthesia Complication Comment: Post-operative progress note Anesthesia: Postop Eval II Evaluation Mental status: Awake Pain Level: 0 nausea: No Vomiting: No 11/15/24 1147 Date Rodo Anastasiia Proctor Signature: Date CC: Signed Normal [facility] ALBUMIN/CREATININE RATIO, UR INEon 11-10-2024 Albumin Unsp time DL <= 20 mg/L (U) [Mass/Time] <12.0 Normal [facility] Comment on above: Order Comment: Speci men Type: URINE SPECIMENOrdering Facility: [facility] Address: [address] [place] [address] Performed By: #### U ACR ####[facility] LABORATORYCLIA [id number] [place] [address] [place] Albumin/Creatinine (U) [Mass ratio] Normal [facility] Comment on above: Order Comment: Speci men Type: URINE SPECIMENOrdering Facility: [facility] Address: [address] [place] [address] Result Comment: Not calculated Adult Male and Female Nephrotic Criteria: <30 mg/g is considered normal to mildly increased 30-300 mg/g is considered moderately increased >300 mg/g is considered severely increased KDIGO. (2013). KDIGO 2012 Clinical Practice Guideline for the Evaluation and Management of Chronic Kidney Disease. Official Journal of the International Society of Nephrology, 3(1), 1-150. Performed By: #### U ACR ####[facility] LABORATORYCLIA [id number] [place] [id number] [place] Creatinine (U) [Mass/Vol] 26.6 mg/dL Low 42.2-237.9 [facility] Comment on above: Order Comment: Speci men Type: URINE SPECIMENOrdering Facility: [facility] Address: [address] [place] [address] Performed By: #### U ACR ####[facility]ORATORYCLIA [id number] [place] [address] [place] CNOVon 11-10-2024 CNOV Office Visit (INTMWS ) SANTOS ALLAN ([id number]) 1965 F Date Time Provider Department 11/10/24 [...] the potassium was low in labs of Shauna, it was because she had stopped taking [...] Father Osteoporosis (more content not included)... Normal [facility] ADALBERTO SCREENING W TOMOon 10-20 ADALBERTO SCREENING W CHUCK * * *Final Report* * * DATE OF EXAM: Oct 20 2024 7:24AM [facility] 0582 - ADALBERTO SCREENING W CHUCK / PROCEDURE REASON: Encounter for screening mammogram for breast cancer * * * * Physician Interpretation * * * * RESULT: [facility] [address] [place] [address] #[id number] - ADALBERTO SCREENING W CHUCK HISTORY: 58 [...] Chrissy Dale M.D. Electronically signed on: 10/21/2024 Furniture Sales Associate: ANAI Transcribe Date/Time: Oct 20 2024 7:06A Dictated by: CHRISSY DALE MD This examination was interpreted and the report reviewed and electronically signed by: CHRISSY DALE MD on Oct 21 2024 7:17AM EST [id number] Normal [facility] Finger(s) Min 2 Viewson 09-15 Finger(s) Min 2 Views [facility] Imaging Services [address], [place] [address] Finger(s) Min 2 Views MR#: [id number] Acct: [id number] Name: SANTOS ALLAN Rep #: [id number] : 1965 F 58 From: Nixon Perry PCP: Dr. Ana Bolaños MD Status: REG CLI Study: Finger(s) Min 2 Views Date of Exam: 10/12/24 Exam# [id number] Ordering Dr: Denver Casillas MD PROCEDURE: FINGER(S) [...] significant osseous changes are noted.. Reading Location: [address] CC: Dr. Ana Bolaños MD; Dr. Denver Casillas MD Furniture Sales Associate: Signed Normal [facility] Plastic Surgery Visit Report on 10-12-2024 Plastic Surgery Visit Report [facility] [address], [address] [place] [address] OFFICE VISIT Date of Service: 10/12/24 MR#: [id number] Acct: [id number] Name: SANTOS ALLAN Rep #: [id number] : 1965 Provider: Dr. Denver Casillas MD Age/Sex: 58/F Location: [facility] Status: Signed Intake Vital Signs 3 [...] index finger Is patient in pain?: Yes (5/10) Allergies topiramate (From Topamax) Allergy (Verified 10/12/24 [...] subcut QWEEK 10/12/2410/12 History subcutaneous pen injector (Nedunjairvin) Nurse's Note: pt referred to the practice from [facility], pt presents with left index finger [...] history: pt d (more content not included)... 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 LMP: 02/13/2019 (Approximate), Postmenopausal [age] at Menarche[age] Age at First : Age at 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 History Comments: Sexual Activity: Not Currently; Male Contraception: No contraception data on record PAST MEDICAL HISTORY Diagnosis Date Acid reflux Anemia Anxiety disorder in conditions classified elsewhere Arthritis 03/03/2016 Bipolar I disorder, most recent episode (or current) unspecified Hypothyroidism Myalgia and myositis, unspecified REMIGIO (obstructive sleep apnea) [facility] [place] - [facility] [place] AutoPAP Other and unspecified hyperlipidemia Right [...] discussed with the Patient or Patient's Authorized Nursing Unit Manager. As applicable, any other physician, advance practice provider, medical student, or other health professional student that will be observing or involved in the sensitive examination for educational or training purposes was discussed with the Patient or Authorized Nursing Unit Manager. The Patient or Authorized Nursing Unit Manager has agreed to proceed with the sensitive [...] (more content not included)... Normal [facility] 08-23-2024 CNPN Telephone (INTMWS) SANTOS ALLAN ([id number]) 1965 F Date Time Provider Department 08/23/24 [...] Fully Assessed Reason for Visit: Medication Update [5016] Prescriptions as of 08/28/2024 - pravastatin (PRAVACHOL) [...] Encounter Status:Closed by ALISON KUMARI on 08/28/24 [facility] Miguel 08-19-2024 MICKY Telephone (INTMWS) YAMIELXSANTOS OLEA ([id number]) 1965 F Date Time Provider Department 08/19/24 ANA BOLAÑOS During your visit today, we recorded the following information about you: Natasha Johns LPN 08/19/2024 9:32 AM Signed Electronic PA rec'd and completed for zepbound. This was approved. Prior authorization approved Payer: [employer] [phone] Note from payer: CaseId:[id number];Status:Appr radha;Review Type:Prior Auth;Coverage Start Date:08/15/2024;Coverage End Date:04/15/2025; Approval Details Authorized from August 15, 2024 to April 15, 2025 Electronic appeal: Not supported View History Pharmacy Benefits Open Encounter GILDASangita SANTOS A - [facility] ([employer]) Covered: Retail, Mail Order Unknown: Specialty, Long-Term Care BIN: [id number] : 1965 PCN: [id number] Legal sex: F Group name: [employer] [place] Address: [address] [place], [place] [id number] Medication Being Authorized tirzepatide, weight loss (ZEPBOUND) 7.5 mg/0.5 mL pen injector Inject 7.5 mg subcutaneously one time a week. Dispense: 2 mL Refills: 3 Start: 08/14/2024 Class: Normal This order has been released to its destination. To be filled at: [id number] [place] [address] - [address] [facility] [facility]. - [phone] [phone] Pt notified via my chart. Allergies As of Date: 08/19/2024 Noted Allergy Reaction IMITREX (SUMATRIPTAN) 07/25/2007 Comments: Face went numb Date Reviewed: 08/11/2024 Reviewed by: Xochitl Menon LPN - Fully Assessed Reason for Visit: Insurance Authorization [1693] Prescriptions as of 08/19/2024 - pravastatin (PRAVACHOL) [...] [M19.90] 0 (more content not included)... Normal [facility] Basic metabolic 2000 panelon 08-11-2024 Anion gap [Moles/Vol] 13 mmol/L Normal 8-15 [facility] Comment on above: Order Comment: Speci men Type: BLOOD SPECIMENOrdering Facility: [facility] Address: [address] [place] [place] [id number] Performed By: #### 2 4321-2 ####[facility] LABCLIA [id number] [place] [id number] [place] Calcium [Mass/Vol] 10.1 mg/dL Normal 8.5-10.2 [facility] Comment on above: Order Comment: Speci men Type: BLOOD SPECIMENOrdering Facility: [facility] Address: [address] [place] [address] Performed By: #### 2 4321-2 ####[facility] LABCLIA [id number] [place] [address] [place] Chloride [Moles/Vol] 98 mmol/L Normal 98-107 [facility] Comment on above: Order Comment: Speci men Type: BLOOD SPECIMENOrdering Facility: [facility] Address: [address] [place] [address] Performed By: #### 2 4321-2 ####[facility] LABCLIA [id number] [place] [address] [place] CO2 [Moles/Vol] 27 mmol/L Normal 22-30 [facility] Comment on above: Order Comment: Speci men Type: BLOOD SPECIMENOrdering Facility: [facility] Address: [address] [place], [place] [address] Performed By: #### 2 4321-2 ####[facility] LABCLIA [id number] [place] [id number] [place] Creatinine [Mass/Vol] 0.78 mg/dL Normal 0.58-0.96 [facility] Comment on above: Order Comment: Speci men Type: BLOOD SPECIMENOrdering Facility: [facility] Address: [address] [place], [place] [address] Performed By: #### 2 4321-2 ####[facility] LABCLIA [id number] [place] [id number] [place] Creatinine and Glomerular filtration rate.predicted panel (S/P/Bld) 89 mL/min/1.73m??? Normal >=60 [facility] Comment on above: Order Comment: Sg león Type: BLOOD SPECIMENOrdering Facility: [facility] Address: [address] [place] [address] Result Comment: Marilee mated Glomerular Filtration Rate [...] actual GFR. Performed By: #### 2 4321-2 ####[facility] LABCLIA [id number] [place] [address] [place] Glucose [Mass/Vol] 75 mg/dL Normal 74-99 [facility] Comment on above: Order Comment: Sg león Type: BLOOD SPECIMENOrdering Facility: [facility] Address: [address] [place] [address] Result Comment: The [place] Diabetes Association (ADA) provides guidance for cutoff [...] Standards of Medical Care in Diabetes 2016, [place] Diabetes Association. Diabetes Care. 2016.39(Suppl 1). Performed By: #### 2 4321-2 ####[facility] LABCLIA [id number] [place] [address] [place] Potassium [Moles/Vol] 3.7 mmol/L Normal 3.7-5.1 [facility] Comment on above: Order Comment: Speci men Type: BLOOD SPECIMENOrdering Facility: [facility] Address: [address] [place] [address] Performed By: #### 2 4321-2 ####[facility] LABCLIA [id number] [place] [id number] [place] Sodium [Moles/Vol] 138 mmol/L Normal 136-144 [facility] Comment on above: Order Comment: Speci men Type: BLOOD SPECIMENOrdering Facility: [facility] Address: [address] [place] [address] Performed By: #### 2 4321-2 ####[facility] LABCLIA [id number] [address] [place] Urea nitrogen [Mass/Vol] 7 mg/dL Normal 7-21 [facility] Comment on above: Order Comment: Speci men Type: BLOOD SPECIMENOrdering Facility: [facility] Address: [address] [place] [address] Performed By: #### 2 4321-2 ####[facility] LABIA [id number] [place] [id number] [place] CNOVon 08-11-2024 CNOV Office Visit (INTMWS ) SANTOS ALLAN ([id number]) 1965 F Date Time Provider Department 08/11/24 9:00 AM ANA BOLAÑOS INTMWS During your visit [...] and discus (more content not included)... Normal [facility] MR/BMS.BPon 08-09-2024 MR/BMS.BP [facility] [address], [address] [place] [address] OFFICE VISIT Date of Service: 08/09/24 MR#: [id number] Acct: [id number] Name: SANTOS ALLAN Rep #: [id number] : 1965 Provider: Dr. Josue Melgoza se, DO Age/Sex: 58/F Location: [facility].BP Status: Signed Intake Vital Signs 03/02/24 16:01 [...] be doing Thanksgiving on this Wednesday in [employer]. Has been taking Zepbound after having stopped [...] Nose, Yarely (more content not included)... Normal [facility] CNOVon 07-18-2024 CNOV Office Visit (ROGE ) GILDASANTOS Quesada ([id number]) 1965 F Date Time Provider Department 07/18/24 [...] bowel habits (more content not included)... Normal [facility] Basic metabolic 2000 panelon 01-19-2024 Anion gap [Moles/Vol] 12 mmol/L 9 - 18 mmol/L [facility] Calcium [Mass/Vol] 9.9 mg/dL 8.5 - 10. 2 mg/dL [facility] Chloride [Moles/Vol] 101 mmol/L 97 - 105 mmol/L [facility] CO2 [Moles/Vol] 27 mmol/L 22 - 30 mmol/L [facility] Creatinine [Mass/Vol] 0.61 mg/dL 0.58 - 0.96 mg/dL [facility] GFR/1.73 sq M.predicted among non-blacks MDRD (S/P/Bld) [Vol rate/Area] 105 mL/min/{1.73_m2} - PINF [facility] Comment on above: Estimated Glomerular Filtration Rate [...] [Mass/Vol] 98 mg/dL 74 - 99 mg/dL [facility] Comment on above: The [place] Diabete s Association (ADA) provides guidance for [...] Standards of Medical Care in Diabetes 2016, [place] Diabetes Association. Diabetes Care. 2016.39(Suppl 1). Potassium [Moles/Vol] 4.0 mmol/L 3.7 - 5.1 mmol/L [facility] Sodium [Moles/Vol] 140 mmol/L 136 - 144 mmol/L [facility] Urea nitrogen [Mass/Vol] 6 mg/dL Low 7 - 21 mg/dL [facility] Lipid 1996 panelon 4 Cholesterol [Mass/Vol] 191 mg/dL NINF - 200 mg/dL [facility] Comment on above: <200 mg/dL, Desirabl e 200-239 mg/dL, Borderline high >239 mg/dL, High Cholesterol in HDL [Mass/Vol] 49 mg/dL 39 - PINF mg/dL [facility] Comment on above: 40-59 mg/dL, Accepta ble >59 mg/dL, High: Negative risk factor for coronary heart disease <40 mg/dL, Low: Positive risk factor for coronary heart disease Cholesterol in LDL [Mass/Vol] 104 mg/dL High NINF - 100 mg/dL [facility] Comment on above: <100 mg/dL, Optimal 100-129 mg/dL, Near optimal/above optimal 130-159 mg/dL, Borderline high 160-189 mg/dL, High >189 mg/dL, Very high Secondary prevention optimal LDL Cholesterol levels are recommended to be < 70 mg/dL Cholesterol in LDL/Cholesterol in HDL [Mass ratio] 2.12 {ratio} NINF - 2.54 [facility] Comment on above: Reference: 1. National Cholesterol Education Program ATP III Guideline At-A-Glance Quick Desk Reference: National Heart, Lung, and Blood [place]. National Institutes of Health. 2001: NIH Publication No. 01-3305. 2. An International Atherosclerosis Society position paper: global recommendations for the management of dyslipidemia: executive summary, Atherosclerosis. 2014: 232(2):410-413. Cholesterol in VLDL [Mass/Vol] 38 mg/dL High NINF - 30 mg/dL [facility] Cholesterol non HDL [Mass/Vol] 142 mg/dL High NINF - 130 mg/dL [facility] Comment on above: <130 mg/dL, Optimal 130-159 mg/dL, Near optimal/above optimal 160-189 mg/dL, Borderline high 190-219 mg/dL, High >219 mg/dL, Very high Secondary prevention optimal non HDL Cholesterol levels are recommended to be <100 mg/dL Cholesterol.total/C holesterol in HDL [Mass ratio] 3.90 {ratio} NINF - 5.10 [facility] Fasting Time 7 hrs [facility] Triglyceride [Mass/Vol] 190 mg/dL High NINF - 150 mg/dL [facility] Comment on above: <150 mg/dL, Normal 150-199 mg/dL, Borderline high 200-499 mg/dL, High >499 mg/dL, Very high No Panel Informationon 01-18 Interpretation and review of laboratory results Abnormal [facility] 36on 09-07-2023 36 DOS 09/02/22 LSG w/ HH JZ TFU BAND 2008 at [place] 11/18/21 Lap removal of gastric band JZ Last OV-09/02/23 with JZ, next 03/03/24 with NK Per last OV note: 2). Continue to monitor for signs and symptoms of GERD / Continue PPI Order sent Normal [facility] Office Visiton 09-02-2023 Follow-up visit [id number] Nicole Allan 1965 F Date Provider Department Center 09/02/2023 05786-NBBUUOJCREGAVIN MOCTEZUMA [facility] BCC SURG None Family History Problem [...] Brother Maternal Grandmother Paternal Grandmother Level of Service:12355 DE OFFICE/OUTPATIENT ESTABLISHED LOW MDM 20 MIN Reason for Visit and Comments: Bariatrics Post Op Follow-up [884] - 12M Normal [facility] Progress Noteon 09-02-2023 Progress Note [facility] SURGICAL PROGRAM [...] body mas (more content not included)... Normal [facility] Progress Note [facility] > 6 [...] questions. Visit completed by: Marilou Clifton RD [facility] 36on 07-28-2023 36 DOS 09/02/22 LSG w/ HH JZ TFU BAND 2007 at [place] 11/18/21 Lap removal of gastric band JZ Lst OV-04/05/23 with MZ, next 09/02/23 with JZ Per last OV note: Denies GERD since being off PPI for about a month. Order declined. [facility] 36on 05-28-2023 36 DOS 09/02/22 LSG w/ HH JZ TFU BAND 2007 at [place] 11/18/21 Lap removal of gastric band JZ Last OV-04/05/23 with MZ, next 09/02/23 with JZ Per last OV note, pt PPI was d/c'd and pt was instructed to call the office with development of s/s. Will route to PA for review of pt request for rx d/t s/s [facility] Office Visiton 04-05-2023 Follow-up visit [id number] Nicole Allan 1965 F Date Provider Department Center 04/05/2023 [id number], [facility] BCC SURG None Family History Problem Relation [...] Brother Maternal Grandmother Paternal Grandmother Level of Service:92656 DE OFFICE/OUTPATIENT ESTABLISHED MOD MDM 30-39 MIN Reason for Visit and Comments: Bariatrics Post Op Follow-up [884] - 6M Normal [facility] Progress Noteon 04-05-2023 Progress Note HPI, PHYSICAL [...] send results to: Ana Bolaños MD - [address] [facility] [address] - [phone] And if not done at a [facility] Facility, please send to: [facility] - [address] [place] [address], [address], [facility] Patient Name: Santos Allan - 1965 Order Created by : Kristina Dillard MA Standing Status: Future Standing Expiration Date: 04/05/2024 Folate These orders are set for an approximate date - they can be drawn up to 3 months prior to the Expected Date on this Req. Please send results to: Ana Bolaños MD - [address] [facility] [address] - [phone] And if not done at a [facility] Facility, please send to: [facility] - [address] [place] [address], [facility] Patient Name: Santos Montes 1965 Order Created by : Kristina Dillard MA Standing Status: Future Standing Expiration Date: 04/05/2024 Iron These orders are set for an approximate date - they can be drawn up to 3 months prior to the Expected Date on this Req. Please send results to: Ana Bolaños MD - [address] [facility] [address] - [phone] And if not done at a [facility] Facility, please send to: [address], [facility] Patient Name: Santos Allan - 1965 Order Created by : Kristina Dillard MA Standing Status: Future Standing Expiration (more content not included)... Normal [facility] Progress Note [facility] > 6 MONTH POST-OPERATIVE DIETITIAN VISIT Date: [...] well overall. Patient instructed to call or [email or web address] message with any questions or concerns Visit completed by: Heidi Whitaker MS, RDN, LD [facility] 36on 02-22-2023 36 DOS 09/02/22 LSG w/ HH JZ TFU BAND 2008 at [place] 11/18/21 Lap removal of gastric band JZ Last OV-12/02/22 with MZ, next 04/02/23 with MZ Rx sent to pharmacy as per the last note, pt should remain on PPI while on therapy from the dentist. [place] [facility] Basophil percentageOrdered B y: Dr. Newton on 01-12-2023 Potassium [Moles/Vol] 3.5 mmol/L 3.5-5.1 [facility] Laboratory - Chemistry and C hemistry - challengeOrdered By: Dr. Newton on 01-12-2023 Magnesium [Mass/Vol] 2.1 mg/dL 1.6-2.6 [facility] Basophil percentageOrdered B y: Dr. Newton on 01-06-2023 Chloride [Moles/Vol] 109 mmol/L 98-107 [facility] Glucose [Mass/Vol] 81 mg/dL 74-106 [facility] Potassium [Moles/Vol] 3.2 mmol/L 3.5-5.1 [facility] Sodium [Moles/Vol] 139 mmol/L 136-145 [facility] Laboratory - Chemistry and C hemistry - challengeOrdered By: Dr. Newton on 01-06-2023 CO2 [Moles/Vol] 27.0 mmol/L 21.0-32.0 [facility] [facility] Urea nitrogen/Creatinine [Mass ratio] 20.5 mg/mg 10-20 [facility] No Panel InformationOrdered By: Dr. Newton on 01-06-2023 Estimated GFR (MDRD) Amer 152 mL/min >60 [facility] Comment on above: GFR Calc Estimated GFR (MDRD) Non-Af Amer 126 mL/min >60 [facility] Comment on above: Non- GFR Calc Serum or plasma calcium andrés urement (mass/volume)Ordered By: Dr. Newton on 01-06-2023 Calcium [Mass/Vol] 9.1 mg/dL 8.5-10.1 [facility] Serum or plasma creatinine m easurement (mass/volume)Ordered By: Dr. Newton on 01-06-2023 Creatinine [Mass/Vol] 0.54 mg/dL 0.55-1.02 [facility] Comment on above: The validity of the calculated GFR & GFRAA in patients over 70 years has not been determined. Clinical correlation is essential. Serum or plasma urea nitroge n measurement (mass/volume)Ordered By: Dr. Newton on 01-06-2023 Urea nitrogen [Mass/Vol] 11 mg/dL 7-18 [facility] Thin prep Papanicolaou smear with manual screeningOrdered By: Dr. Newton on 01-06-2023 Thin prep Papanicolaou smear with manual screening 3 5-15 [facility] Whole blood hemoglobin A1c/t otal hemoglobin ratio (mass fraction)Ordered By: Dr. Newton on 01-06-2023 HbA1c (Bld) [Mass fraction] 4.4 % 3.8-5.6 [facility] Comment on above: Normal < 5.7 % Predi abetic 5.7 - 6.4 % Diabetic >or= 6.5 % Please note range changes. HEMOGLOBIN A1C (POC)on 12-04 HbA1c (Bld) [Mass fraction] 4.7 % 4.2 - 5.6 % [facility] Office Visiton 12-02-2022 Follow-up visit [id number] Nicole Allan 1965 F Date Provider Department Center 12/02/2022 [id number] BURT BCC SURG None Family History Problem [...] Brother Maternal Grandmother Paternal Grandmother Level of Service:58840 DE OFFICE/OUTPATIENT ESTABLISHED MOD [facility] 30-39 MIN Reason for Visit and Comments: Bariatrics Post Op Follow-up [884] - 3m [facility] Progress Noteon 12-02-2022 Progress Note HPI, PHYSICAL [...] send results to: Ana Bolaños MD - [address] [facility] [address] - [phone] And if not done at a [facility], please send to: [facility] [place] - [address] [place] [address], [address] - [facility], [address] Patient Name: Santos Allan - 1965 Order Created by : Kristina Dillard MA Standing Status: Future Standing Expiration Date: 12/03/2023 Folate These orders are set for an approximate date - they can be drawn up to 3 months prior to the Expected Date on this Req. Please send results to: Ana Bolaños MD - [address] [facility] [address] - [phone] And if not done at a [facility], please send to: [address], [address] Patient Name: Santos Allan - 1965 Order Created by : Kristina Dillard MA Standing Status: Future Standing Expiration Date: 12/03/2023 Iron These orders are set for an approximate date - they can be drawn up to 3 months prior to the Expected Date on this Req. Please send results to: Ana Bolaños MD - [address] [facility] [address] - [phone] And if not done at a [facility], please send to: [address], [address] Patient Name: Santos Allan - 1965 Order Created by : Kristina Dillard MA Standing Status: Future Standing Expiration Date: 12/03/2023 Ferritin These orders are set for an approximate date - they can be drawn up to 3 months prior to the Expected Date on this Req. Please send results to: Ana Bolaños MD - [address] [facility] [address] - [phone] And if not done at a [facility], please send to: [address], [address] Patient Name: Santos Allan - 1965 Order Created by : Kristina Dillard MA Standing Status: Future Standing Expiration Date: 12/03/2023 Magnesium These orders are set for an appr (more content not included)... Normal [facility] Progress Note [facility] 3 MONTH POST-OPERATIVE DIETITIAN VISIT Date: 12/02/22 [...] arise. Visit completed by: Lorena Alexis RD [facility] Absolute lymphocyte countOrd ered By: EDILSON PENN on 11-13-2022 Lymphocytes Auto (Unsp spec) [#/Vol] 1.97 10*3/uL 0.83-4.51 [facility] Basophil percentageOrdered B y: EDILSON PENN on 11-13-2022 Basophils/100 WBC (Bld) 0.5 % 0-1 [facility] Bilirubin [Mass/Vol] 0.40 mg/dL 0.20-1.00 [facility] Comment on above: For patients on eltr ombopag therapy, use of Dimension [place] TBIL is not recommended. Chloride [Moles/Vol] 103 mmol/L 98-107 [facility] Eosinophils/100 WBC (Bld) 2.5 % 0-5 [facility] Glucose [Mass/Vol] 108 mg/dL 74-106 [facility] Comment on above: Fasting Glucose resu lt from 100 to 125 mg/dL suggests IMPAIRED HOMEOSTASIS per A.D.A. criteria. Neutrophils (Bld) [#/Vol] 3.0 10*3/uL 2.0-7.7 [facility] Neutrophils/100 WBC (Bld) 54.0 % 47-70 [facility] Potassium [Moles/Vol] 3.5 mmol/L 3.5-5.1 [facility] Protein [Mass/Vol] 7.5 g/dL 6.4-8.2 [facility] Sodium [Moles/Vol] 139 mmol/L 136-145 [facility] WBC (Bld) [#/Vol] 5.6 10*3/uL 4.4-11.0 [facility] Blood erythrocytes count (nu mber/volume)Ordered By: EDILSON PENN on 11-13-2022 RBC (Bld) [#/Vol] 4.35 10*6/uL 4.2-5.4 [facility] Blood hemoglobin measurement (mass/volume)Ordered By: EDILSON PENN on 11-13-2022 Hemoglobin (Bld) [Mass/Vol] 13.3 g/dL 12.0-15.0 [facility] Blood lymphocytes/100 leukoc ytesOrdered By: EDILSON PENN on 11-13-2022 Lymphocytes/100 WBC (Bld) 35.4 % 19-41 [facility] Blood monocytes/100 leukocyt esOrdered By: EDILSON PENN on 11-13-2022 Monocytes/100 WBC (Bld) 7.2 % 0-10 [facility] Blood platelet mean volumeOr dered By: EDILSON PENN on 11-13-2022 Platelet mean volume (Bld) [Entitic vol] 9.9 fL 6.2-12.0 [facility] Determination of erythrocyte mean corpuscular volume (MCV)Ordered By: EDILSON PENN on 11-13-2022 MCV (RBC) [Entitic vol] 94.7 fL 81-99 [facility] Erythrocyte sedimentation ra teOrdered By: EDILSON PENN on 11-13-2022 ESR (Bld) [Velocity] 13 mm/h 0-30 [facility] Hematocrit Auto (Bld) [Volum e fraction]Ordered By: EDILSON PENN on 11-13-2022 Hematocrit (Bld) [Volume fraction] 41.2 % 37-47 [facility] Iron measurement (mass/mass) Ordered By: EDILSON PENN on 11-13-2022 Iron (Unsp spec) [Mass/Mass] 71 ug/dL 50-170 [facility] Laboratory - Chemistry and C hemistry - challengeOrdered By: EDILSON PENN on 11-13-2022 ALP [Catalytic activity/Vol] 85 U/L 45-117 [facility] ALT [Catalytic activity/Vol] 37 U/L 13-56 [facility] CO2 [Moles/Vol] 29.0 mmol/L 21.0-32.0 [facility] Cobalamin (Vitamin B12) [Mass/Vol] 1818 pg/mL 211-911 [facility] Globulin (S) [Mass/Vol] 3.5 g/dL 2.2-4.2 [facility] Magnesium [Mass/Vol] 2.1 mg/dL 1.6-2.6 [facility] Urea nitrogen/Creatinine [Mass ratio] 18.9 mg/mg 10-20 [facility] Laboratory - Hematology and Cell countsOrdered By: EDILSON PENN on 11-13-2022 Erythrocyte distribution width (RBC) [Entitic vol] 48.4 fL 35.1-43.9 [facility] Erythrocyte distribution width (RBC) [Ratio] 13.9 % 11.6-14.6 [facility] Immature granulocytes/100 WBC (Bld) 0.400 % 0.0-0.9 [facility] Comment on above: IG% - Immature Granu locytes (promyelocytes, myelocytes and metamyelocytes) > 1% indicates that a LEFT SHIFT is Present. MCH (RBC) [Entitic mass] 30.6 pg 27.0-32.0 [facility] Nucleated RBC/100 WBC (Bld) [Ratio] 0 % 0-5 [facility] MCHC Auto (RBC) [Mass/Vol]Or dered By: EDILSON PENN on 11-13-2022 MCHC (RBC) [Mass/Vol] 32.3 g/dL 32-36 [facility] No Panel InformationOrdered By: EDILSON PENN on 11-13-2022 Estimated GFR (MDRD) Amer 114 mL/min >60 [facility] Comment on above: GFR Calc Estimated GFR (MDRD) Non-Af Amer 94 mL/min >60 [facility] Comment on above: Non- GFR Calc Platelets bldOrdered By: LUZ PENN on 11-13-2022 Platelets (Bld) [#/Vol] 282 10*3/uL 150-450 [facility] Serum DNA double strand anti body assay (units/volume)Ordered By: EDILSON PENN on 11-13-2022 DNA double strand Ab Qn (S) [IU]/mL 0-9 [facility] Comment on above: Negative <5 Equivoca l 5 - 9 Positive >9Performed at: [facility] [id number] Director: Mesfin Odell PhD, Phone: [phone] Serum or plasma C reactive p rotein measurement (mass/volume)Ordered By: EDILSON PENN on 11-13-2022 CRP [Mass/Vol] mg/L 0.0-3.0 [facility] Comment on above: C-Reactive Protein ( CRP) provides useful information for thediagnosis, therapy and monitoring of inflammatory processesand associated diseases. For the evaluation of Relative Riskfor Cardiovascular Disease, a High Sensitivity CRP (HSCRP)should be ordered. Serum or plasma albumin andrés urement (mass/volume)Ordered By: EDILSON PENN on 11-13-2022 Albumin [Mass/Vol] 4.0 g/dL 3.2-5.0 [facility] Serum or plasma albumin/glob ulin mass ratioOrdered By: EDILSON PENN on 11-13-2022 Albumin/Globulin [Mass ratio] 1.1 {ratio} 0.9-2.4 [facility] Serum or plasma calcium andrés urement (mass/volume)Ordered By: EDILSON PENN on 11-13-2022 Calcium [Mass/Vol] 9.7 mg/dL 8.5-10.1 [facility] Serum or plasma complement C 3 measurement (mass/volume)Ordered By: EDILSON PENN on 11-13-2022 Complement C3 [Mass/Vol] 167 mg/dL 82-167 [facility] Serum or plasma complement C 4 measurement (mass/volume)Ordered By: EDILSON PENN on 11-13-2022 Complement C4 [Mass/Vol] 41 mg/dL 12-38 [facility] Serum or plasma creatinine m easurement (mass/volume)Ordered By: EDILSON PENN on 11-13-2022 Creatinine [Mass/Vol] 0.69 mg/dL 0.55-1.02 [facility] Comment on above: The validity of the calculated GFR & GFRAA in patients over 70 years has not been determined. Clinical correlation is essential. Serum or plasma ferritin day surement (mass/volume)Ordered By: EDILSON PENN on 11-13-2022 Ferritin [Mass/Vol] 131 ng/mL 8-252 [facility] Serum or plasma folate measu rement (mass/volume)Ordered By: EDILSON PENN on 11-13-2022 Folate [Mass/Vol] 61.00 ng/mL 3.1-55.4 [facility] Serum or plasma urea nitroge n measurement (mass/volume)Ordered By: EDILSON PENN on 11-13-2022 Urea nitrogen [Mass/Vol] 13 mg/dL 7-18 [facility] Serum or plasma zinc measure ment (mass/volume)Ordered By: EDILSON PENN on 11-13-2022 Zinc [Mass/Vol] 98 ug/dL 44-115 [facility] Comment on above: Detection Limit = 5P erformed at: [email or web address] [address] [id number] Director: Mesfin Odell PhD, Phone: [phone] at: [email or web address] [address] [id number] Director: Pranav Aparicio MD, Phone: [phone] Thin prep Papanicolaou smear with manual screeningOrdered By: EDILSON PENN on 11-13-2022 Thin prep Papanicolaou smear with manual screening 23 U/L 15-37 [facility] Thin prep Papanicolaou smear with manual screening 7 5-15 [facility] 36on 11-06-2022 [address] Angel Mcdermott S [facility] 36 DOS 09/02/22 GERMANG w/ HH [facility] 2008 at [place] - [place] [employer] [employer] IN FULL. MB 11/18/21 Lap removal of gastric band JZ Last OV-10/08/22 w MZ, next 12/02/22 w MZ Therapy complete after 3 months of treatment. Order declined as original RX contained enough refills to complete treatment. Normal [facility] Basophil percentageOrdered B y: GARRET BURT on 10-10-2022 Potassium [Moles/Vol] 4.2 mmol/L 3.5-5.1 [facility] Office Visiton 10-08-2022 Follow-up visit [id number] Nicole Allan 1965 F Date Provider Department Center 10/08/2022 [id number] MOCTEZUMA [facility] B[facility] SURG None Family History Problem [...] Brother Maternal Grandmother Paternal Grandmother Level of Service:11753 DE POSTOP FOLLOW UP VISIT RELATED TO ORIGINAL PX Reason for Visit and Comments: Bariatrics Post Op Follow-up [884] - 1M Normal [facility] Progress Noteon 10-08-2022 Progress Note [facility] 1 MONTH [...] questions. Visit completed by: Marilou Clifton RD [facility] Progress Note [facility] SURGICAL PROGRAM [...] 25 MG 24 HR TABLET NYSTATIN (MYCOSTATIN) 510393 UNIT/ML SUSPENSION Swish and spit 5 mL [...] by mouth in the morning. nystatin (Mycostatin) 899352 UNIT/ML suspension Swish and spit 5 mL (500,000 Units) 3 times daily. Swish and spit 5 mLs by mouth three times daily for 10 days. (Patient not taking: Reported on 10/08/2022) 150 mL 1 omeprazole (Pr (more content not included)... Normal [facility] 36on 10-02-2022 36 Signed, thanks Marilou Mcdermott S [facility] 36on 10-01-2022 36 DOS 09/02/22 LSG w/ HH CaroleZ [facility] BAND 2008 at [place] - [place] [employer] IN FULL. [place] 11/18/21 Lap removal of gastric band JZ 09/29/2022 Paper labs Potassium: 3.1 (L) Vitamin [...] Order pending. Please sign. Thank you! Normal [facility] Basophil percentageOrdered B y: GARRET FunezNORAH on 09-29-2022 Bilirubin [Mass/Vol] 0.40 mg/dL 0.20-1.00 [facility] Comment on above: For patients on eltr ombopag therapy, use of Dimension [place] TBIL is not recommended. Chloride [Moles/Vol] 99 mmol/L 98-107 [facility] Cholesterol [Mass/Vol] 132 mg/dL <200 [facility] Comment on above: <200 mg/dL Desirable 200-240 mg/dL Borderline >240 mg/dL High Risk Glucose [Mass/Vol] 103 mg/dL 74-106 [facility] Comment on above: Fasting Glucose resu lt from 100 to 125 mg/dL suggests IMPAIRED HOMEOSTASIS per A.D.A. criteria. Potassium [Moles/Vol] 3.1 mmol/L 3.5-5.1 [facility] Protein [Mass/Vol] 8.0 g/dL 6.4-8.2 [facility] Sodium [Moles/Vol] 136 mmol/L 136-145 [facility] Triglyceride [Mass/Vol] 138 mg/dL <199 [facility] Comment on above: The drugs N-Acetylcy steine and Metamizole may falsely depress this assay.Serum Triglycerides Reference Interval Normal <150 mg/dL Borderline high 150 - 199 mg/dL High 200 - 499 mg/dL Very High > or = 500 mg/dL WBC (Bld) [#/Vol] 6.5 10*3/uL 4.4-11.0 [facility] Blood erythrocytes count (nu mber/volume)Ordered By: GARRET BURT on 09-29-2022 RBC (Bld) [#/Vol] 4.72 10*6/uL 4.2-5.4 [facility] Blood hemoglobin measurement (mass/volume)Ordered By: GARRET BURT on 09-29-2022 Hemoglobin (Bld) [Mass/Vol] 13.9 g/dL 12.0-15.0 [facility] Blood platelet mean volumeOr dered By: GARRET BURT on 09-29-2022 Platelet mean volume (Bld) [Entitic vol] 10.2 fL 6.2-12.0 [facility] Determination of erythrocyte mean corpuscular volume (MCV)Ordered By: GARRET BURT on 09-29-2022 MCV (RBC) [Entitic vol] 93.4 fL 81-99 [facility] Hematocrit Auto (Bld) [Volum e fraction]Ordered By: GARRETSUNSHINE BURT on 09-29-2022 Hematocrit (Bld) [Volume fraction] 44.1 % 37-47 [facility] Iron measurement (mass/mass) Ordered By: GARRETSUNSHINE BURT on 09-29-2022 Iron (Unsp spec) [Mass/Mass] 67 ug/dL 50-170 [facility] Laboratory - Chemistry and C hemistry - challengeOrdered By: GARRET BURT on 09-29-2022 ALP [Catalytic activity/Vol] 85 U/L 45-117 [facility] ALT [Catalytic activity/Vol] 44 U/L 13-56 [facility] CO2 [Moles/Vol] 29.0 mmol/L 21.0-32.0 [facility] Free T4 [Mass/Vol] 1.48 ng/dL 0.76-1.46 [facility] Globulin (S) [Mass/Vol] 3.8 g/dL 2.2-4.2 [facility] Magnesium [Mass/Vol] 2.1 mg/dL 1.6-2.6 [facility] Urea nitrogen/Creatinine [Mass ratio] 14.0 mg/mg 10-20 [facility] Laboratory - Hematology and Cell countsOrdered By: GARRET BURT on 09-29-2022 Erythrocyte distribution width (RBC) [Entitic vol] 45.3 fL 35.1-43.9 [facility] Erythrocyte distribution width (RBC) [Ratio] 13.2 % 11.6-14.6 [facility] MCH (RBC) [Entitic mass] 29.4 pg 27.0-32.0 [facility] MCHC Auto (RBC) [Mass/Vol]Or dered By: GARRET BURT on 09-29-2022 MCHC (RBC) [Mass/Vol] 31.5 g/dL 32-36 [facility] No Panel InformationOrdered By: GARRET BURT on 09-29-2022 Estimated GFR (MDRD) Amer 110 mL/min >60 [facility] Comment on above: GFR Calc Estimated GFR (MDRD) Non-Af Amer 91 mL/min >60 [facility] Comment on above: Non- GFR Calc Thyroid Stimulating Hormone (TSH) 1.10 uIU/mL 0.358-3.74 [facility] Vitamin B12 Level > 2000 pg/mL 211-911 [facility] Platelets bldOrdered By: FAMILIA BURT on 09-29-2022 Platelets (Bld) [#/Vol] 313 10*3/uL 150-450 [facility] Serum or plasma albumin andrés urement (mass/volume)Ordered By: GARRET BURT on 09-29-2022 Albumin [Mass/Vol] 4.2 g/dL 3.2-5.0 [facility] Serum or plasma albumin/glob ulin mass ratioOrdered By: GARRET BURT on 09-29-2022 Albumin/Globulin [Mass ratio] 1.1 {ratio} 0.9-2.4 [facility] Serum or plasma calcium andrés urement (mass/volume)Ordered By: GARRET BURT on 09-29-2022 Calcium [Mass/Vol] 9.8 mg/dL 8.5-10.1 [facility] Serum or plasma cholesterol in HDL measurement (mass/volume)Ordered By: GARRET BURT on 09-29-2022 Cholesterol in HDL [Mass/Vol] 40 mg/dL >40 [facility] Comment on above: The drugs N-Acetylcy steine and Metamizole may falsely depress this assay. Reference Range HDL <40 mg/dL Low HDL Cholesterol HDL >or= 60 mg/dL High HDL Cholesterol Serum or plasma cholesterol in VLDL measurement (mass/volume)Ordered By: GARRET BURT on 09-29-2022 Cholesterol in VLDL [Mass/Vol] 28 mg/dL 5-40 [facility] Serum or plasma creatinine m easurement (mass/volume)Ordered By: GARRET BURT on 09-29-2022 Creatinine [Mass/Vol] 0.71 mg/dL 0.55-1.02 [facility] Comment on above: The validity of the calculated GFR & GFRAA in patients over 70 years has not been determined. Clinical correlation is essential. Serum or plasma ferritin day surement (mass/volume)Ordered By: GARRET BURT on 09-29-2022 Ferritin [Mass/Vol] 99 ng/mL 8-252 [facility] Serum or plasma folate measu rement (mass/volume)Ordered By: GARRET BURT on 09-29-2022 Folate [Mass/Vol] 13.60 ng/mL 3.1-55.4 [facility] Serum or plasma low density lipoprotein (LDL) cholesterol measurement (mass/volume)Ordered By: GARRET BURT on 09-29-2022 Cholesterol in LDL [Mass/Vol] 64 mg/dL 0-130 [facility] Serum or plasma urea nitroge n measurement (mass/volume)Ordered By: GARRET BURT on 09-29-2022 Urea nitrogen [Mass/Vol] 10 mg/dL 7-18 [facility] Serum or plasma zinc measure ment (mass/volume)Ordered By: GARRET BUTR on 09-29-2022 Zinc [Mass/Vol] 100 ug/dL 44-115 [facility] Comment on above: Detection Limit = 5P erformed at: - [facility] [id number] Director: Pranav Aparicio MD, Phone: [phone] Thin prep Papanicolaou smear with manual screeningOrdered By: GARRET BURT on 09-29-2022 Thin prep Papanicolaou smear with manual screening 33 U/L 15-37 [facility] Thin prep Papanicolaou smear with manual screening 8 5-15 [facility] Whole blood hemoglobin A1c/t otal hemoglobin ratio (mass fraction)Ordered By: GARRET BURT on 09-29-2022 HbA1c (Bld) [Mass fraction] 4.8 % 3.8-5.6 [facility] Comment on above: Normal < 5.7 % Predi abetic 5.7 - 6.4 % Diabetic >or= 6.5 % Please note range changes. Office Visiton 09-10-2022 Follow-up visit [id number] Nicole Allan 1965 F Date Provider Department Center 09/10/2022 [id number] BURT BCC SURG None Family History Problem [...] Brother Maternal Grandmother Paternal Grandmother Level of Service:36713 DE POSTOP FOLLOW UP VISIT RELATED TO ORIGINAL PX Reason for Visit and Comments: Bariatrics Post Op Follow-up [884] - 1W Normal [facility] Progress Noteon 09-10-2022 Progress Note [facility] 1 WEEK [...] Visit completed by: Marilou Clifton RD Normal [facility] Progress Note [facility] SURGICAL PROGRAM [...] results to: Ana Bolaños MD - [address] [facility] [address] - [phone] And if not done at a [facility], please send to: [place] [address] Patient Name: Santos Allan - 1965 Order Created by : Mckenzie Samayoa Standing Status: Future Standing Expiration Date: 09/10/2023 Folate These orders are set for an approximate date - they can be drawn up to 3 months prior to the Expected Date on this Req. Please send results to: MD Simon Stone [address] [facility] [address] - [phone] And if not done at a [facility], please send to: [place] [address] Patient Name: Santos Allan - 1965 Order Created by : Mckenzie Samayoa Standing Status: Future Standing Expiration Date: 09/10/2023 Iron These orders are set for an approximate date - they can be drawn up to 3 months prior to the Expected Date on this Req. Please send results to: MD Simon Stone [address] [facility] [id number] - [phone] And if not done at a [facility], please send to: [place] [address] Patient Name: Santos Allan - 1965 Order Created by : Mckenzie Samayoa Standing Status: Future Standing Expiration Date: 09/10/2023 Ferritin These orders are set for an approximate date - they can be drawn up to 3 months prior to the Expected Date on this Req. Please send results to: MD Simon Stone [address] [facility] [id number] - [phone] And if not done at a [facility], please send to: [facility] - [address] [place] [address], [address] Patient Name: Santos Allan - 1965 Order Created by : Mckenzie Samayoa Standing Status: Future Standing Expiration Date: 09/10/2023 Magnesium These orders are set for an approximate date - they can be drawn up to 3 months prior to the Expected Date on this Req. Please send results to: Ana Bolaños MD - [address] [facility] [address] - [phone] And if not done at a [facility], please send to: [facility] - [address] [place] [address], [address] Patient Name: Santos Allan - 1965 Order Created by : Mckenzie Samayoa Standing Status: Future Standing Expiration Date: 09/10/2023 Vitamin B12 These orders are set for an approximate date - they can be drawn up to 3 months prior to the Expected Date on this Req. Please send results to: Ana Bolaños MD - [id number] [facility] [id number] - [phone] And if not done at a [facility] Facility, please send to: [facility] - [address] [place] [address], [id number] Patient Name: Santos Allan - 1965 Order Created by : Mckenzie Samayoa Standing Status: Future Standing Expiration Date: 09/10/2023 Comprehensive metabolic panel These orders are set for an approximate date - they can be drawn up to 3 months prior (more content not included)... Normal [facility] Progress Note [facility] POST WEIGHT LOSS SURGERY FOLLOW UP - 1 WEEK Rooming Note Patient: Santos Allan Service Date: 09/10/2022 Patient is 1 week s/p Lap Sleeve Gastrectomy Pre-Surgical Weight Loss Initial Height: 5' 7 (170.2 cm) Initial Weight: 271 lb (123 kg) Initial BMI: 42.44 [place] Body Weight: 135 lb (61.2 kg) Surgery [...] Change: -8.8 lbs Completed by: Mckenzie Samayoa [facility] XR Chest 2 Viewson 2 No acute cardiopulmonary disease. Report Dictated on Electronically Signed By: Radha Miles Electronically Signed Date/Time: 08/14/2022 7:53 AM [facility] RADIOLOGY SYSTEM Patient Name: SANTOS PRADO Exam Date/Time: [...] spine fusion hardware is not fully imaged. [facility] Radha Miles MD - 08/14/2022 Patient Name: [...] Miles Electronically Signed Date/Time: 08/14/2022 7:53 AM [facility] 2 ViewsOrdered By: Radha Miles on 08-14-2022 [facility] Work Phone: XR Chest 2 Viewson Radiology Study observation (narrative) [facility] Absolute lymphocyte countOrd ered By: Dr. Newton on 06-26-2022 Lymphocytes Auto (Unsp spec) [#/Vol] 2.01 10*3/uL 0.83-4.51 [facility] Basophil percentageOrdered B y: Dr. Newton on 06-26-2022 Basophils/100 WBC (Bld) 0.7 % 0-1 [facility] Bilirubin [Mass/Vol] 0.30 mg/dL 0.20-1.00 [facility] Comment on above: For patients on eltr ombopag therapy, use of Dimension [place] TBIL is not recommended. Chloride [Moles/Vol] 100 mmol/L 98-107 [facility] Eosinophils/100 WBC (Bld) 0.2 % 0-5 [facility] Glucose [Mass/Vol] 123 mg/dL 74-106 [facility] Comment on above: Fasting Glucose resu lt from 100 to 125 mg/dL suggests IMPAIRED HOMEOSTASIS per A.D.A. criteria. Neutrophils (Bld) [#/Vol] 3.2 10*3/uL 2.0-7.7 [facility] Neutrophils/100 WBC (Bld) 53.2 % 47-70 [facility] Potassium [Moles/Vol] 3.8 mmol/L 3.5-5.1 [facility] Protein [Mass/Vol] 7.4 g/dL 6.4-8.2 [facility] Sodium [Moles/Vol] 139 mmol/L 136-145 [facility] WBC (Bld) [#/Vol] 5.9 10*3/uL 4.4-11.0 [facility] Blood erythrocytes count (nu mber/volume)Ordered By: Dr. Newton on 06-26-2022 RBC (Bld) [#/Vol] 4.40 10*6/uL 4.2-5.4 [facility] Blood hemoglobin measurement (mass/volume)Ordered By: Dr. Newton on 06-26-2022 Hemoglobin (Bld) [Mass/Vol] 13.0 g/dL 12.0-15.0 [facility] Blood lymphocytes/100 leukoc ytesOrdered By: Dr. Newton on 06-26-2022 Lymphocytes/100 WBC (Bld) 33.8 % 19-41 [facility] Blood monocytes/100 leukocyt esOrdered By: Dr. Newton on 06-26-2022 Monocytes/100 WBC (Bld) 9.4 % 0-10 [facility] Blood platelet mean volumeOr dered By: Dr. Newton on 06-26-2022 Platelet mean volume (Bld) [Entitic vol] 9.9 fL 6.2-12.0 [facility] Determination of erythrocyte mean corpuscular volume (MCV)Ordered By: Dr. Newton on 06-26-2022 MCV (RBC) [Entitic vol] 94.3 fL 81-99 [facility] Hematocrit Auto (Bld) [Volum e fraction]Ordered By: Dr. Newton on 06-26-2022 Hematocrit (Bld) [Volume fraction] 41.5 % 37-47 [facility] Laboratory - Chemistry and C hemistry - challengeOrdered By: Dr. Newton on 06-26-2022 ALP [Catalytic activity/Vol] 80 U/L 45-117 [facility] ALT [Catalytic activity/Vol] 40 U/L 13-56 [facility] CO2 [Moles/Vol] 29.0 mmol/L 21.0-32.0 [facility] Free T4 [Mass/Vol] 1.10 ng/dL 0.76-1.46 [facility] Globulin (S) [Mass/Vol] 3.8 g/dL 2.2-4.2 [facility] Urea nitrogen/Creatinine [Mass ratio] 15.2 mg/mg 10-20 [facility] Laboratory - Hematology and Cell countsOrdered By: Dr. Newton on 06-26-2022 Erythrocyte distribution width (RBC) [Entitic vol] 47.1 fL 35.1-43.9 [facility] Erythrocyte distribution width (RBC) [Ratio] 13.5 % 11.6-14.6 [facility] Immature granulocytes/100 WBC (Bld) 2.700 % 0.0-0.9 [facility] Comment on above: IG% - Immature Granu locytes (promyelocytes, myelocytes and metamyelocytes) > 1% indicates that a LEFT SHIFT is Present. MCH (RBC) [Entitic mass] 29.5 pg 27.0-32.0 [facility] Nucleated RBC/100 WBC (Bld) [Ratio] 0 % 0-5 [facility] MCHC Auto (RBC) [Mass/Vol]Or dered By: Dr. Newton on 06-26-2022 MCHC (RBC) [Mass/Vol] 31.3 g/dL 32-36 [facility] No Panel InformationOrdered By: Dr. Newton on 06-26-2022 Estimated GFR (MDRD) Amer 120 mL/min >60 [facility] Comment on above: GFR Calc Estimated GFR (MDRD) Non-Af Amer 99 mL/min >60 [facility] Comment on above: Non- GFR Calc Thyroid Stimulating Hormone (TSH) 1.88 uIU/mL 0.358-3.74 [facility] Urine Microalbumin/Creati nine Ratio TNP [facility] Comment on above: Test not performed Vitamin D 25-Hydroxy 47.7 ng/mL [facility] Comment on above: Vitamin D 25(OH) Sta tus Range Deficiency <20 ng/mL (50nmol/L) Insufficiency 20 - 30 ng/mL (50 - 75 nmol/L) Sufficiency 30 - 100 ng/mL (75 - 250 nmol/L) Toxicity >100 ng/mL (>250 nmol/L) Platelets bldOrdered By: Dr. Newton on 06-26-2022 Platelets (Bld) [#/Vol] 289 10*3/uL 150-450 [facility] Serum or plasma albumin andrés urement (mass/volume)Ordered By: Dr. Newton on 06-26-2022 Albumin [Mass/Vol] 3.6 g/dL 3.2-5.0 [facility] Serum or plasma albumin/glob ulin mass ratioOrdered By: Dr. Newton on 06-26-2022 Albumin/Globulin [Mass ratio] 0.9 {ratio} 0.9-2.4 [facility] Serum or plasma calcium andrés urement (mass/volume)Ordered By: Dr. Newton on 06-26-2022 Calcium [Mass/Vol] 9.1 mg/dL 8.5-10.1 [facility] Serum or plasma creatinine m easurement (mass/volume)Ordered By: Dr. Newton on 06-26-2022 Creatinine [Mass/Vol] 0.66 mg/dL 0.55-1.02 [facility] Comment on above: The validity of the calculated GFR & GFRAA in patients over 70 years has not been determined. Clinical correlation is essential. Serum or plasma urea nitroge n measurement (mass/volume)Ordered By: Dr. Newton on 06-26-2022 Urea nitrogen [Mass/Vol] 10 mg/dL 7-18 [facility] Thin prep Papanicolaou smear with manual screeningOrdered By: Dr. Newton on 06-26-2022 Thin prep Papanicolaou smear with manual screening 30 U/L 15-37 [facility] Thin prep Papanicolaou smear with manual screening 10 5-15 [facility] Thin prep Papanicolaou smear with manual screening < 5.0 mg/L NO RANGE EST. [facility] Urine creatinine measurement (mass/volume)Ordered By: Dr. Newton on 06-26-2022 Creatinine (U) [Mass/Vol] 21.20 mg/dL NO RANGE EST. [facility] Whole blood hemoglobin A1c/t otal hemoglobin ratio (mass fraction)Ordered By: Dr. Newton on 06-26-2022 HbA1c (Bld) [Mass fraction] 6.1 % 3.8-5.6 [facility] Comment on above: Normal < 5.7 % Predi abetic 5.7 - 6.4 % Diabetic >or= 6.5 % Please note range changes. Stool Helicobacter pylori an tigen detection by immunoassayon 04-04-2022 H. pylori Ag IA Ql (Stl) Negative Negative [facility] Work Phone: Comment on above: Performed at: [address] [id number] Director: Pranav Aparicio MD, Phone: [phone] Absolute lymphocyte counton 03-19-2022 Lymphocytes Auto (Unsp spec) [#/Vol] 2.05 10*3/uL 0.83-4.51 [facility] Work Phone: Basophil percentageon 2021 Basophils/100 WBC (Bld) 0.5 % 0-1 [facility] Work Phone: Bilirubin [Mass/Vol] 0.30 mg/dL 0.20-1.00 [facility] Work Phone: Comment on above: For patients on eltr ombopag therapy, use of Dimension [place] TBIL is not recommended. Chloride [Moles/Vol] 104 mmol/L 98-107 [facility] Work Phone: Cholesterol [Mass/Vol] 177 mg/dL <200 [facility] Work Phone: Comment on above: <200 mg/dL Desirable 200-240 mg/dL Borderline >240 mg/dL High Risk Eosinophils/100 WBC (Bld) 0.0 % 0-5 [facility] Work Phone: Glucose [Mass/Vol] 106 mg/dL 74-106 [facility] Work Phone: Comment on above: Fasting Glucose resu lt from 100 to 125 mg/dL suggests IMPAIRED HOMEOSTASIS per A.D.A. criteria. Neutrophils (Bld) [#/Vol] 4.0 10*3/uL 2.0-7.7 [facility] Work Phone: Neutrophils/100 WBC (Bld) 60.3 % 47-70 [facility] Work Phone: Potassium [Moles/Vol] 3.7 mmol/L 3.5-5.1 [facility] Work Phone: Protein [Mass/Vol] 6.9 g/dL 6.4-8.2 [facility] Work Phone: Sodium [Moles/Vol] 139 mmol/L 136-145 [facility] Work Phone: Triglyceride [Mass/Vol] 191 mg/dL <199 [facility] Work Phone: Comment on above: The drugs N-Acetylcy steine and Metamizole may falsely depress this assay.Serum Triglycerides Reference Interval Normal <150 mg/dL Borderline high 150 - 199 mg/dL High 200 - 499 mg/dL Very High > or = 500 mg/dL WBC (Bld) [#/Vol] 6.6 10*3/uL 4.4-11.0 [facility] Work Phone: Blood erythrocytes count (nu mber/volume)on 03-19-2022 RBC (Bld) [#/Vol] 4.11 10*6/uL 4.2-5.4 [facility] Work Phone: Blood hemoglobin measurement (mass/volume)on 03-19-2022 Hemoglobin (Bld) [Mass/Vol] 12.6 g/dL 12.0-15.0 [facility] Work Phone: Blood lymphocytes/100 leukoc yteson 03-19-2022 Lymphocytes/100 WBC (Bld) 31.0 % 19-41 [facility] Work Phone: Blood monocytes/100 leukocyt eson 03-19-2022 Monocytes/100 WBC (Bld) 7.0 % 0-10 [facility] Work Phone: Blood platelet mean volumeon 03-19-2022 Platelet mean volume (Bld) [Entitic vol] 10.1 fL 6.2-12.0 [facility] Work Phone: [phone] Determination of erythrocyte mean corpuscular volume (MCV)on 03-19-2022 MCV (RBC) [Entitic vol] 98.1 fL 81-99 [facility] Work Phone: Erythrocyte sedimentation ra ang 03-19-2022 ESR (Bld) [Velocity] 17 mm/h 0-30 [facility] Work Phone: Hematocrit Auto (Bld) [Volum e fraction]on 03-19-2022 Hematocrit (Bld) [Volume fraction] 40.3 % 37-47 [facility] Work Phone: Laboratory - Chemistry and C hemistry - challengeon 03-19-2022 Albumin [Mass/Vol] 3.4 g/dL 2.9-4.4 [facility] Work Phone: ALP [Catalytic activity/Vol] 94 U/L 45-117 [facility] Work Phone: ALT [Catalytic activity/Vol] 29 U/L 13-56 [facility] Work Phone: CO2 [Moles/Vol] 28.0 mmol/L 21.0-32.0 [facility] Work Phone: Cobalamin (Vitamin B12) [Mass/Vol] 883 pg/mL 211-911 [facility] Work Phone: Globulin (S) [Mass/Vol] 3.6 g/dL 2.2-4.2 [facility] Work Phone: Magnesium [Mass/Vol] 2.0 mg/dL 1.6-2.6 [facility] Work Phone: Urea nitrogen/Creatinine [Mass ratio] 14.1 mg/mg 10-20 [facility] Work Phone: Laboratory - Hematology and Cell countson 03-19-2022 Erythrocyte distribution width (RBC) [Entitic vol] 47.0 fL 35.1-43.9 [facility] Work Phone: Erythrocyte distribution width (RBC) [Ratio] 13.1 % 11.6-14.6 [facility] Work Phone: Immature granulocytes/100 WBC (Bld) 1.200 % 0.0-0.9 [facility] Work Phone: Comment on above: IG% - Immature Granu locytes (promyelocytes, myelocytes and metamyelocytes) > 1% indicates that a LEFT SHIFT is Present. MCH (RBC) [Entitic mass] 30.7 pg 27.0-32.0 [facility] Work Phone: Nucleated RBC/100 WBC (Bld) [Ratio] 0 % 0-5 [facility] Work Phone: MCHC Auto (RBC) [Mass/Vol]on 03-19-2022 MCHC (RBC) [Mass/Vol] 31.3 g/dL 32-36 [facility] Work Phone: No Panel Informationon 03-19 Addendum Document Comment . [facility] Work Phone: Comment on above: The SPE pattern appe ars unremarkable. Evidence ofmonoclonal protein is not apparent. Qkdvn-7-Jdnctoowu 0.3 g/dL 0.0-0.4 [facility] Work Phone: Bkvxs-9-Nocqufngn 0.9 g/dL 0.4-1.0 [facility] Work Phone: Estimated GFR (MDRD) Amer 110 mL/min >60 [facility] Work Phone: Comment on above: GFR Calc Estimated GFR (MDRD) Non-Af Amer 91 mL/min >60 [facility] Work Phone: Comment on above: Non- GFR Calc Gamma Globulins 0.6 g/dL 0.4-1.8 [facility] Work Phone: Plasma renin measurement (en zymatic activity/volume)on 03-19-2022 Renin (P) [Catalytic activity/Vol] 6.402 ng/mL/hr 0.167-5.380 [facility] Work Phone: Comment on above: Performed at: [employer] [id number] [place], [place] [id number] Director: Mesfin Odell PhD, Phone: [phone] at: [employer] [address] [id number] Director: Pranav Aparicio MD, Phone: [phone] Platelets bldon 03-19-2022 Platelets (Bld) [#/Vol] 277 10*3/uL 150-450 [facility] Work Phone: Protein Fractions Elph [Inte rp]on 03-19-2022 Protein Fractions [Interp] Comment . [facility] Work Phone: Comment on above: Protein electrophore sis scan will follow via computer,mail, or survey supervisor delivery. Serum DNA double strand anti body assay (units/volume)on 03-19-2022 DNA double strand Ab Qn (S) [IU]/mL 0-9 [facility] Work Phone: Comment on above: Negative <5 Equivoca l 5 - 9 Positive >9Performed at: [employer] [id number] [place], [place] [id number] Director: Mesfin Odell PhD, Phone: [phone] Serum albumin to globulin ra berta by protein electrophoresison 03-19-2022 Albumin/Globulin Elph [Mass ratio] 1.1 0.7-1.7 [facility] Work Phone: Serum globulin measurement ( mass/volume)on 03-19-2022 Globulin (S) [Mass/Vol] 3.0 g/dL 2.2-3.9 [facility] Work Phone: Serum or plasma C reactive p rotein measurement (mass/volume)on 03-19-2022 CRP [Mass/Vol] mg/L 0.0-3.0 [facility] Work Phone: Comment on above: C-Reactive Protein ( CRP) provides useful information for thediagnosis, therapy and monitoring of inflammatory processesand associated diseases. For the evaluation of Relative Riskfor Cardiovascular Disease, a High Sensitivity CRP (HSCRP)should be ordered. Serum or plasma albumin andrés urement (mass/volume)on 03-19-2022 Albumin [Mass/Vol] 3.3 g/dL 3.2-5.0 [facility] Work Phone: Serum or plasma albumin/glob ulin mass ratioon 03-19-2022 Albumin/Globulin [Mass ratio] 0.9 {ratio} 0.9-2.4 [facility] Work Phone: Serum or plasma beta globuli n measurement by electrophoresis (mass/volume)on 03-19-2022 Beta globulin Elph [Mass/Vol] 1.2 g/dL 0.7-1.3 [facility] Work Phone: Serum or plasma calcium andrés urement (mass/volume)on 03-19-2022 Calcium [Mass/Vol] 9.1 mg/dL 8.5-10.1 [facility] Work Phone: Serum or plasma cholesterol in HDL measurement (mass/volume)on 03-19-2022 Cholesterol in HDL [Mass/Vol] 40 mg/dL >40 [facility] Work Phone: Comment on above: The drugs N-Acetylcy steine and Metamizole may falsely depress this assay. Reference Range HDL <40 mg/dL Low HDL Cholesterol HDL >or= 60 mg/dL High HDL Cholesterol Serum or plasma cholesterol in VLDL measurement (mass/volume)on 03-19-2022 Cholesterol in VLDL [Mass/Vol] 38 mg/dL 5-40 [facility] Work Phone: Serum or plasma complement C 3 measurement (mass/volume)on 03-19-2022 Complement C3 [Mass/Vol] 176 mg/dL 82-167 [facility] Work Phone: Serum or plasma complement C 4 measurement (mass/volume)on 03-19-2022 Complement C4 [Mass/Vol] 35 mg/dL 12-38 [facility] Work Phone: Serum or plasma creatinine m easurement (mass/volume)on 03-19-2022 Creatinine [Mass/Vol] 0.71 mg/dL 0.55-1.02 [facility] Work Phone: Comment on above: The validity of the calculated GFR & GFRAA in patients over 70 years has not been determined. Clinical correlation is essential. Serum or plasma low density lipoprotein (LDL) cholesterol measurement (mass/volume)on 03-19-2022 Cholesterol in LDL [Mass/Vol] 99 mg/dL 0-130 [facility] Work Phone: Serum or plasma urea nitroge n measurement (mass/volume)on 03-19-2022 Urea nitrogen [Mass/Vol] 10 mg/dL 7-18 [facility] Work Phone: Thin prep Papanicolaou smear with manual screeningon 03-19-2022 Thin prep Papanicolaou smear with manual screening 23 U/L 15-37 [facility] Work Phone: Thin prep Papanicolaou smear with manual screening 7 5-15 [facility] Work Phone: Thin prep Papanicolaou smear with manual screening See comment [facility] Work Phone: Comment on above: Result: Not Observed Thin prep Papanicolaou smear with manual screening 3.5 ng/dL 0.0-30.0 [facility] Work Phone: Total protein bloodon 2021 Protein [Mass/Vol] 6.4 g/dL 6.0-8.5 [facility] Work Phone: Whole blood hemoglobin A1c/t otal hemoglobin ratio (mass fraction)on 03-19-2022 HbA1c (Bld) [Mass fraction] 5.1 % 3.8-5.6 [facility] Work Phone: Comment on above: Normal < 5.7 % Predi abetic 5.7 - 6.4 % Diabetic >or= 6.5 % Please note range changes. Basophil percentageon 2021 Bilirubin [Mass/Vol] 0.30 mg/dL 0.20-1.00 [facility] Work Phone: Comment on above: For patients on eltr ombopag therapy, use of Dimension [place] TBIL is not recommended. Chloride [Moles/Vol] 101 mmol/L 98-107 [facility] Work Phone: Glucose [Mass/Vol] 94 mg/dL 74-106 [facility] Work Phone: Potassium [Moles/Vol] 3.9 mmol/L 3.5-5.1 [facility] Work Phone: Protein [Mass/Vol] 7.2 g/dL 6.4-8.2 [facility] Work Phone: Sodium [Moles/Vol] 137 mmol/L 136-145 [facility] Work Phone: Laboratory - Chemistry and C hemistry - challengeon 02-20-2022 ALP [Catalytic activity/Vol] 99 U/L 45-117 [facility] Work Phone: ALT [Catalytic activity/Vol] 31 U/L 13-56 [facility] Work Phone: CO2 [Moles/Vol] 28.0 mmol/L 21.0-32.0 [facility] Work Phone: Globulin (S) [Mass/Vol] 3.7 g/dL 2.2-4.2 [facility] Work Phone: Urea nitrogen/Creatinine [Mass ratio] 26.8 mg/mg 10-20 [facility] Work Phone: No Panel Informationon 02-20 Estimated GFR (MDRD) Amer 93 mL/min >60 [facility] Work Phone: Comment on above: GFR Calc Estimated GFR (MDRD) Non-Af Amer 77 mL/min >60 [facility] Work Phone: Comment on above: Non- GFR Calc Serum or plasma albumin andrés urement (mass/volume)on 02-20-2022 Albumin [Mass/Vol] 3.5 g/dL 3.2-5.0 [facility] Work Phone: Serum or plasma albumin/glob ulin mass ratioon 02-20-2022 Albumin/Globulin [Mass ratio] 0.9 {ratio} 0.9-2.4 [facility] Work Phone: Serum or plasma calcium andrés urement (mass/volume)on 02-20-2022 Calcium [Mass/Vol] 9.2 mg/dL 8.5-10.1 [facility] Work Phone: Serum or plasma creatinine m easurement (mass/volume)on 02-20-2022 Creatinine [Mass/Vol] 0.82 mg/dL 0.55-1.02 [facility] Work Phone: Comment on above: The validity of the calculated GFR & GFRAA in patients over 70 years has not been determined. Clinical correlation is essential. Serum or plasma urea nitroge n measurement (mass/volume)on 02-20-2022 Urea nitrogen [Mass/Vol] 22 mg/dL 7-18 [facility] Work Phone: Thin prep Papanicolaou smear with manual screeningon 02-20-2022 Thin prep Papanicolaou smear with manual screening 17 U/L 15-37 [facility] Work Phone: Thin prep Papanicolaou smear with manual screening 8 5-15 [facility] Work Phone: Basophil percentageon 2021 Bilirubin [Mass/Vol] 0.40 mg/dL 0.20-1.00 [facility] Work Phone: Comment on above: For patients on eltr ombopag therapy, use of Dimension [place] TBIL is not recommended. Chloride [Moles/Vol] 104 mmol/L 98-107 [facility] Work Phone: Cholesterol [Mass/Vol] 196 mg/dL <200 [facility] Work Phone: Comment on above: <200 mg/dL Desirable 200-240 mg/dL Borderline >240 mg/dL High Risk Glucose [Mass/Vol] 117 mg/dL 74-106 [facility] Work Phone: Comment on above: Fasting Glucose resu lt from 100 to 125 mg/dL suggests IMPAIRED HOMEOSTASIS per A.D.A. criteria. Potassium [Moles/Vol] 3.9 mmol/L 3.5-5.1 [facility] Work Phone: Protein [Mass/Vol] 7.6 g/dL 6.4-8.2 [facility] Work Phone: Sodium [Moles/Vol] 137 mmol/L 136-145 [facility] Work Phone: Triglyceride [Mass/Vol] 240 mg/dL <199 [facility] Work Phone: Comment on above: The drugs N-Acetylcy steine and Metamizole may falsely depress this assay.Serum Triglycerides Reference Interval Normal <150 mg/dL Borderline high 150 - 199 mg/dL High 200 - 499 mg/dL Very High > or = 500 mg/dL Laboratory - Chemistry and C hemistry - challengeon 12-12-2021 ALP [Catalytic activity/Vol] 106 U/L 45-117 [facility] Work Phone: ALT [Catalytic activity/Vol] 40 U/L 13-56 [facility] Work Phone: CO2 [Moles/Vol] 25.0 mmol/L 21.0-32.0 [facility] Work Phone: Free T4 [Mass/Vol] 1.30 ng/dL 0.76-1.46 [facility] Work Phone: Globulin (S) [Mass/Vol] 3.7 g/dL 2.2-4.2 [facility] Work Phone: Urea nitrogen/Creatinine [Mass ratio] 16.5 mg/mg 10-20 [facility] Work Phone: No Panel Informationon 12-12 Estimated GFR (MDRD) Amer 98 mL/min >60 [facility] Work Phone: Comment on above: GFR Calc Estimated GFR (MDRD) Non-Af Amer 81 mL/min >60 [facility] Work Phone: Comment on above: Non- GFR Calc Thyroid Stimulating Hormone (TSH) 1.62 uIU/mL 0.358-3.74 [facility] Work Phone: Serum or plasma albumin andrés urement (mass/volume)on 12-12-2021 Albumin [Mass/Vol] 3.9 g/dL 3.2-5.0 [facility] Work Phone: Serum or plasma albumin/glob ulin mass ratioon 12-12-2021 Albumin/Globulin [Mass ratio] 1.1 {ratio} 0.9-2.4 [facility] Work Phone: Serum or plasma calcium andrés urement (mass/volume)on 12-12-2021 Calcium [Mass/Vol] 9.1 mg/dL 8.5-10.1 [facility] Work Phone: Serum or plasma cholesterol in HDL measurement (mass/volume)on 12-12-2021 Cholesterol in HDL [Mass/Vol] 36 mg/dL >40 [facility] Work Phone: Comment on above: The drugs N-Acetylcy steine and Metamizole may falsely depress this assay. Reference Range HDL <40 mg/dL Low HDL Cholesterol HDL >or= 60 mg/dL High HDL Cholesterol Serum or plasma cholesterol in VLDL measurement (mass/volume)on 12-12-2021 Cholesterol in VLDL [Mass/Vol] 48 mg/dL 5-40 [facility] Work Phone: Serum or plasma creatinine m easurement (mass/volume)on 12-12-2021 Creatinine [Mass/Vol] 0.79 mg/dL 0.55-1.02 [facility] Work Phone: Comment on above: The validity of the calculated GFR & GFRAA in patients over 70 years has not been determined. Clinical correlation is essential. Serum or plasma low density lipoprotein (LDL) cholesterol measurement (mass/volume)on 12-12-2021 Cholesterol in LDL [Mass/Vol] 112 mg/dL 0-130 [facility] Work Phone: Serum or plasma urea nitroge n measurement (mass/volume)on 12-12-2021 Urea nitrogen [Mass/Vol] 13 mg/dL 7-18 [facility] Work Phone: Thin prep Papanicolaou smear with manual screeningon 12-12-2021 Thin prep Papanicolaou smear with manual screening 25 U/L 15-37 [facility] Work Phone: Thin prep Papanicolaou smear with manual screening 8 5-15 [facility] Work Phone: Whole blood hemoglobin A1c/t otal hemoglobin ratio (mass fraction)on 12-12-2021 HbA1c (Bld) [Mass fraction] 4.8 % 3.8-5.6 [facility] Work Phone: Comment on above: Normal < 5.7 % Predi abetic 5.7 - 6.4 % Diabetic >or= 6.5 % Please note range changes. Zinc, Serumon 11-19-2021 Zinc, Serum 91.5 ug/dL Normal 60.0-120.0 [facility] Comment on above: Result Comment: INTE RPRETIVE [...] developed and its performance characteristics determined by [employer]. It has not been cleared or approved by the [place] Food and Drug Administration. This test was performed in a CLIA certified laboratory and is intended for clinical purposes. Performed By: [employer] [address] [place] [address] Physician Coder: Yvonne Smart MD Performed By: #### V D25H #### [facility] [address] [place] [address] #### HEMOG, FOLT3, CMP3, FERR3, B12, TSH5, MG3, LIPD2, IRON3 #### [facility] [address] [place] [address] #### ZINC2 #### The performing lab is in the report. OPERATIVE REPORTon Ordered by an unspec ified provider. [facility] Op Noteon 11-18-2021 Op Note [facility] - Surgery [facility] Physicians Surgery Patient Name: Santos Allan OPERATIVE NOTE DATE OF PROCEDURE: 11/18/2021 SURGEON: Gavin Moctezuma MD PERSONAL DEVELOPMENT EDUCATOR: Xuan Lopez PA-C PREOPERATIVE DIAGNOSIS: ? Oropharyngeal [...] PA-C was asked to serve as the speech language pathology assistant for this procedure. [facility] Surgical Pathologyon 022 Surgical Pathology [id number] [facility] DEPARTMENT [facility] PATHOLOGY AND LABORATORY MEDICINE [address] [place] [phone] Fax - FINAL SURGICAL PATHOLOGY REPORT NAME: SANTOS ALLAN : 1965 55 Y F BILLING NO.: [id number] LOCATION: [facility] 09 PROCEDURE 11/18/2021 DATE: SURGEON: GAVIN [...] (SEE GROSS DESCRIPTION BELOW). ARK/ARK Signature> Sarita SU, PhD CLINICAL INFORMATION: Deficiency multiple nutrient elements [...] characteristics determined by the clinical laboratories of [facility]. They have not been cleared by the [...] negativity on decalcified specimens. Case reviewed at [facility] [address] [place] [address]. DEPARTMENT OF PATHOLOGY AND LABORATORY MEDICINE [place], [place] [address] [email or web address] Normal [facility] Vit D 25-OH, Totalon 022 Vit D 25-OH, Total 44 ng/mL Normal 30-100 [facility] Comment on above: Result Comment: Ther apy is based on measurement of Total 25- OHD with the following classification levels: Less than 20 ng/mL: Indicative of Vit D deficiency 20-30 ng/mL: Suggests Vit D insufficiency Optimal: Greater than or equal to 30 ng/mL Test performed by [employer] Immun[employer], measuring Total Vitamin D, not individual fractions. Performed By: #### V D25H #### [facility] [address] [place] [address] #### HEMOG, FOLT3, CMP3, FERR3, B12, TSH5, MG3, LIPD2, IRON3 #### [facility] [address] [place] [address] #### ZINC2 #### The performing lab is in the report. CBCon 11-14-2021 Hematocrit (Bld) [Volume fraction] 42.3 % 35.0 - 47.0 % [facility] Hemoglobin.gastroin testinal spec 1 Ql (Stl) 13.7 [...] 4.43 10*6/uL 3.80 - 5.2 0 10*6/uL [facility] WBC (Bld) [#/Vol] 6.1 10*3/uL 3.6 - 10.7 10*3/uL [facility] Test Performed by [facility], [address] [place] [address] [facility] Comp Metabolic Panelon 11-14 Potassium [Moles/Vol] 3.6 mmol/L Normal 3.5-5.1 [facility] Comment on above: Performed By: #### V D25H #### [facility] [address] [place] [address] #### HEMOG, FOLT3, CMP3, FERR3, B12, TSH5, MG3, LIPD2, IRON3 #### [address] [address] #### ZINC2 #### The performing lab is in the report. ALT [Catalytic activity/Vol] 39 U/L High 0-34 [facility] Comment on above: Result Comment: The ALT test is performed by an updated assay method. Please note that the reference intervals have been changed and are now sex specific. Performed By: #### V D25H #### [facility] [address] [place] [address] #### HEMOG, FOLT3, CMP3, FERR3, B12, TSH5, MG3, LIPD2, IRON3 #### [address] #### ZINC2 #### The performing lab is in the report. Calcium [Mass/Vol] 9.8 mg/dL Normal 8.4-10.4 [facility] Comment on above: Performed By: #### V D25H #### [facility] [address] [place] [address] #### HEMOG, FOLT3, CMP3, FERR3, B12, TSH5, MG3, LIPD2, IRON3 #### [address] #### ZINC2 #### The performing lab is in the report. Glucose [Mass/Vol] 86 mg/dL Normal 70-100 [facility] Comment on above: Performed By: #### V D25H #### [facility] [address] [place] [address] #### HEMOG, FOLT3, CMP3, FERR3, B12, TSH5, MG3, LIPD2, IRON3 #### [address] #### ZINC2 #### The performing lab is in the report. ALP [Catalytic activity/Vol] 100 U/L Normal 38-126 [facility] Comment on above: Performed By: #### V D25H #### [facility] [address] [place] [address] #### HEMOG, FOLT3, CMP3, FERR3, B12, TSH5, MG3, LIPD2, IRON3 #### [address] #### ZINC2 #### The performing lab is in the report. Anion gap [Moles/Vol] 9 mmol/L Normal 3-13 [facility] Comment on above: Performed By: #### V D25H #### [facility] [address] [place] [address] #### HEMOG, FOLT3, CMP3, FERR3, B12, TSH5, MG3, LIPD2, IRON3 #### [address] #### ZINC2 #### The performing lab is in the report. AST [Catalytic activity/Vol] 37 U/L Normal 15-46 [facility] Comment on above: Performed By: #### V D25H #### [facility] [address] [place] [address] #### HEMOG, FOLT3, CMP3, FERR3, B12, TSH5, MG3, LIPD2, IRON3 #### [address] #### ZINC2 #### The performing lab is in the report. Bilirubin [Mass/Vol] 0.4 mg/dL Normal 0.2-1.3 [facility] Comment on above: Performed By: #### V D25H #### [facility] [address] [place] [address] #### HEMOG, FOLT3, CMP3, FERR3, B12, TSH5, MG3, LIPD2, IRON3 #### [facility] [address] [place], [place] #### ZINC2 #### The performing lab is in the report. CO2 [Moles/Vol] 25 mmol/L Normal 22-30 [facility] Comment on above: Performed By: #### V D25H #### [facility] [address] [place] [address] #### HEMOG, FOLT3, CMP3, FERR3, B12, TSH5, MG3, LIPD2, IRON3 #### [facility] [address] [place], [place] #### ZINC2 #### The performing lab is in the report. Creatinine [Mass/Vol] 0.66 mg/dL Normal 0.52-1.25 [facility] Comment on above: Performed By: #### V D25H #### [facility] [address] [place] [address] #### HEMOG, FOLT3, CMP3, FERR3, B12, TSH5, MG3, LIPD2, IRON3 #### [facility] [address] [address] #### ZINC2 #### The performing lab is in the report. eGFR OTHER > 90.0 Normal >60 [facility] Comment on above: Result Comment: KDIG O [...] secretion. Performed By: #### V D25H #### [facility] [address] [place] [address] #### HEMOG, FOLT3, CMP3, FERR3, B12, TSH5, MG3, LIPD2, IRON3 #### [address] #### ZINC2 #### The performing lab is in the report. GFR/1.73 sq M.predicted among blacks MDRD (S/P/Bld) [Vol rate/Area] mL/min/{1.73_m2} Normal >60 [facility] Comment on above: Performed By: #### V D25H #### [address] [place] [address] #### HEMOG, FOLT3, CMP3, FERR3, B12, TSH5, MG3, LIPD2, IRON3 #### [address] #### ZINC2 #### The performing lab is in the report. Protein [Mass/Vol] 7.7 g/dL Normal 6.3-8.2 [facility] Comment on above: Performed By: #### V D25H #### [address] [place] [address] #### HEMOG, FOLT3, CMP3, FERR3, B12, TSH5, MG3, LIPD2, IRON3 #### [address] #### ZINC2 #### The performing lab is in the report. Urea nitrogen [Mass/Vol] 16 mg/dL Normal 9-20 [facility] Comment on above: Performed By: #### V D25H #### [address] [place] [address] #### HEMOG, FOLT3, CMP3, FERR3, B12, TSH5, MG3, LIPD2, IRON3 #### [address] [address] #### ZINC2 #### The performing lab is in the report. Chloride [Moles/Vol] 104 mmol/L Normal 98-107 [facility] Comment on above: Performed By: #### V D25H #### [facility] [address] [place] [address] #### HEMOG, FOLT3, CMP3, FERR3, B12, TSH5, MG3, LIPD2, IRON3 #### [address] #### ZINC2 #### The performing lab is in the report. Sodium [Moles/Vol] 137 mmol/L Normal 135-145 [facility] Comment on above: Performed By: #### V D25H #### [facility] [address] [place] #### HEMOG, FOLT3, CMP3, FERR3, B12, TSH5, MG3, LIPD2, IRON3 #### [address] #### ZINC2 #### The performing lab is in the report. Albumin [Mass/Vol] 4.5 g/dL Normal 3.5-5.0 [facility] Comment on above: Performed By: #### V D25H #### [facility] [address] [place] [address] #### HEMOG, FOLT3, CMP3, FERR3, B12, TSH5, MG3, LIPD2, IRON3 #### [address] [address] #### ZINC2 #### The performing lab is in the report. Comprehensive Metabolic Pane kaitlynn 11-14-2021 Albumin [Mass/Vol] 4.5 g/dL 3.5 - 5.0 g/dL [facility] ALP (Bld) [Catalytic activity/Vol] 100 U/L 38 [...] - 1.25 mg/dL [facility] EGFR IF NonAfrican Nepalese >90.0 >60 mL/min [facility] Comment on above: [...] [Moles/Vol] 3.6 mmol/L 3.5 - 5.1 mmol/L [facility] Sodium [Moles/Vol] 137 mmol/L 135 - 145 mmol/L [facility] Urea nitrogen (BldV) [Mass/Vol] 16 mg/dL 9 - 20 mg/dL [facility] Test Performed by [id number] [place] [address] LAB [facility] Ferritinon 11-14-2021 Ferritin [Mass/Vol] 84 ng/mL Normal 11-264 [facility] Comment on above: Performed By: #### V D25H #### [facility] [address] [place] [address] #### HEMOG, FOLT3, CMP3, FERR3, B12, TSH5, MG3, LIPD2, IRON3 #### [address] [address] #### ZINC2 #### The performing lab is in the report. Ferritin [Mass/Vol] 84 ng/mL 11 - 264 ng/mL [facility] Test Performed by [facility], [address] [place] [id number] [place] [address] LAB [facility] Folateon 11-14-2021 Folate 4.4 ng/mL Normal [facility] Comment on above: Result Comment: >2.8 Performed By: #### V D25H #### [facility] [address] [place] [address] #### HEMOG, FOLT3, CMP3, FERR3, B12, TSH5, MG3, LIPD2, IRON3 #### [address] [address] #### ZINC2 #### The performing lab is in the report. Folate 4.4 ng/mL [facility] Comment on above: >2.8 Hemoglobin A1Con 11-14-2021 Glucose [Mass/Vol] 97 mg/dL Normal [facility] Comment on above: Performed By: #### V D25H #### [facility] [address] [place] [address] #### HEMOG, FOLT3, CMP3, FERR3, B12, TSH5, MG3, LIPD2, IRON3 #### [address] [address] #### ZINC2 #### The performing lab is in the report. HbA1c (Bld) [Mass fraction] 5.0 % Normal [facility] Comment on above: Result Comment: Norm al less than 5.7% Prediabetes 5.7% to 6.4% Diabetes 6.5% or higher --HgbA1C levels may not be accurate in patients who have renal disease, received recent blood transfusions, are anemic, or who have dyshemoglobinemia. Performed By: #### V D25H #### [address] [place] [address] #### HEMOG, FOLT3, CMP3, FERR3, B12, TSH5, MG3, LIPD2, IRON3 #### [address] [address] #### ZINC2 #### The performing lab is in the report. HbA1c (Bld) [Mass fraction] 5.0 % [facility] Comment on above: Normal less than 5.7 % Prediabetes 5.7% to 6.4% Diabetes 6.5% or higher --HgbA1C levels may not be accurate in patients who have renal disease, received recent blood transfusions, are anemic, or who have dyshemoglobinemia. Magnesium [Mass/Vol] 97 mg/dL [facility] Test Performed by [facility], [address] [place] [address] [facility] Hemogramon 11-14-2021 Erythrocyte distribution width (RBC) [Ratio] 13.1 % Normal 11.5-14.5 [facility] Comment on above: Performed By: #### V D25H #### [facility] [address] [place] [address] #### HEMOG, FOLT3, CMP3, FERR3, B12, TSH5, MG3, LIPD2, IRON3 #### [address] [address] #### ZINC2 #### The performing lab is in the report. Hematocrit (Bld) [Volume fraction] 42.3 % Normal 35.0-47.0 [facility] Comment on above: Performed By: #### V D25H #### [address] [place] [address] #### HEMOG, FOLT3, CMP3, FERR3, B12, TSH5, MG3, LIPD2, IRON3 #### [address] #### ZINC2 #### The performing lab is in the report. Hemoglobin (Bld) [Mass/Vol] 13.7 g/dL Normal 11.7-16.0 [facility] Comment on above: Performed By: #### V D25H #### [address] [place] #### HEMOG, FOLT3, CMP3, FERR3, B12, TSH5, MG3, LIPD2, IRON3 #### [address] #### ZINC2 #### The performing lab is in the report. MCH (RBC) [Entitic mass] 30.9 pg Normal 26.0-34.0 [facility] Comment on above: Performed By: #### V D25H #### [address] [place] #### HEMOG, FOLT3, CMP3, FERR3, B12, TSH5, MG3, LIPD2, IRON3 #### [address] #### ZINC2 #### The performing lab is in the report. MCHC 32.4 % Normal 32.0-36.0 [facility] Comment on above: Performed By: #### V D25H #### [address] [facility] [place] #### HEMOG, FOLT3, CMP3, FERR3, B12, TSH5, MG3, LIPD2, IRON3 #### [address] #### ZINC2 #### The performing lab is in the report. MCV (RBC) [Entitic vol] 95.4 fL Normal 79.0-98.0 [facility] Comment on above: Performed By: #### V D25H #### [address] [place] [address] #### HEMOG, FOLT3, CMP3, FERR3, B12, TSH5, MG3, LIPD2, IRON3 #### [address] #### ZINC2 #### The performing lab is in the report. Platelet mean volume (Bld) [Entitic vol] 8.9 fL Normal 7.4-10.4 [facility] Comment on above: Performed By: #### V D25H #### [address] [place] [address] #### HEMOG, FOLT3, CMP3, FERR3, B12, TSH5, MG3, LIPD2, IRON3 #### [address] #### ZINC2 #### The performing lab is in the report. Platelets (Bld) [#/Vol] 255 10*3/uL Normal 140-440 [facility] Comment on above: Performed By: #### V D25H #### [address] [place], [place] #### HEMOG, FOLT3, CMP3, FERR3, B12, TSH5, MG3, LIPD2, IRON3 #### [address] #### ZINC2 #### The performing lab is in the report. RBC (Bld) [#/Vol] 4.43 10*6/uL Normal 3.80-5.20 [facility] Comment on above: Performed By: #### V D25H #### [address] [place] [address] #### HEMOG, FOLT3, CMP3, FERR3, B12, TSH5, MG3, LIPD2, IRON3 #### [address] [address] #### ZINC2 #### The performing lab is in the report. WBC (Bld) [#/Vol] 6.1 10*3/uL Normal 3.6-10.7 [facility] Comment on above: Performed By: #### V D25H #### [facility] [address] [place] [address] #### HEMOG, FOLT3, CMP3, FERR3, B12, TSH5, MG3, LIPD2, IRON3 #### [address] [address] #### ZINC2 #### The performing lab is in the report. Ironon 11-14-2021 Iron [Mass/Vol] 102 ug/dL 37 - 170 ug/dL [facility] Test Performed by [facility], [address] [place] [address] LAB [facility] Iron, Totalon 11-14-2021 Iron, Total 102 ug/dL Normal 37-170 [facility] Comment on above: Performed By: #### V D25H #### [facility] [address] [place] [address] #### HEMOG, FOLT3, CMP3, FERR3, B12, TSH5, MG3, LIPD2, IRON3 #### [address] #### ZINC2 #### The performing lab is in the report. Lipid Panelon 11-14-2021 Chol/HDL 5 Normal [facility] Comment on above: Result Comment: Ref Range: < 3 Low Risk for CHD 3-6 Mod Risk for CHD > 6 High Risk for CHD Performed By: #### V D25H #### [facility] [address] [place] [address] #### HEMOG, FOLT3, CMP3, FERR3, B12, TSH5, MG3, LIPD2, IRON3 #### [address] [address] #### ZINC2 #### The performing lab is in the report. Cholesterol in HDL [Mass/Vol] 37 mg/dL Low 40-60 [facility] Comment on above: Performed By: #### V D25H #### [facility] [address] [place] [address] #### HEMOG, FOLT3, CMP3, FERR3, B12, TSH5, MG3, LIPD2, IRON3 #### [address] #### ZINC2 #### The performing lab is in the report. Low Density Lipoprotein 120 mg/dL Abnormal <100 [facility] Comment on above: Performed By: #### V D25H #### [facility] [address] [place] [address] #### HEMOG, FOLT3, CMP3, FERR3, B12, TSH5, MG3, LIPD2, IRON3 #### [address] #### ZINC2 #### The performing lab is in the report. Triglyceride [Mass/Vol] 207 mg/dL Abnormal <150 [facility] Comment on above: Performed By: #### V D25H #### [facility] [address] [place] [address] #### HEMOG, FOLT3, CMP3, FERR3, B12, TSH5, MG3, LIPD2, IRON3 #### [address] #### ZINC2 #### The performing lab is in the report. Cholesterol [Mass/Vol] 198 mg/dL Normal < 200 [facility] Comment on above: Performed By: #### V D25H #### [facility] [address] [place] [address] #### HEMOG, FOLT3, CMP3, FERR3, B12, TSH5, MG3, LIPD2, IRON3 #### [address] #### ZINC2 #### The performing lab is in the report. Cholesterol [Mass/Vol] 198 mg/dL <200 [facility] Cholesterol in HDL [Mass/Vol] 37 mg/dL Low 40 - 60 mg/dL [facility] Cholesterol in LDL [Mass/Vol] 120 mg/dL Abnormal <100 [facility] Cholesterol.total/C holesterol in HDL [Mass ratio] 5 {ratio} [facility] Comment on above: Ref Range: < 3 Low Risk for CHD 3-6 Mod Risk for CHD > 6 High Risk for CHD Interpretation and review of laboratory results Abnormal [facility] Triglyceride [Mass/Vol] 207 mg/dL Abnormal <150 [facility] Magnesiumon 11-14-2021 Magnesium [Mass/Vol] 2.1 mg/dL Normal 1.6-2.3 [facility] Comment on above: Performed By: #### V D25H #### [facility] [address] [place] [address] #### HEMOG, FOLT3, CMP3, FERR3, B12, TSH5, MG3, LIPD2, IRON3 #### [address] [address] #### ZINC2 #### The performing lab is in the report. Magnesium [Mass/Vol] 2.1 mg/dL 1.6 - 2.3 mg/dL [facility] No Panel Informationon 11-14 Test Performed by [address] LAB [facility] Test Performed by [address] LAB [facility] TSH without Reflexon 022 TSH Qn 2.214 u[IU]/mL 0.465 - 4.680 u[IU]/mL [facility] Test Performed by [id number] [place] [address] LAB [facility] Thyroid Stim. Hormoneon Thyroid Stim. Hormone 2.214 u[IU]/mL Normal 0.465-4.680 [facility] Comment on above: Performed By: #### V D25H #### [facility] [address] [place] [address] #### HEMOG, FOLT3, CMP3, FERR3, B12, TSH5, MG3, LIPD2, IRON3 #### [facility] [address] [place] [address] #### ZINC2 #### The performing lab is in the report. Vitamin B12on 11-14-2021 Cobalamin (Vitamin B12) [Mass/Vol] pg/mL High 239-931 [facility] Comment on above: Performed By: #### V D25H #### [facility] [address] [place] [address] #### HEMOG, FOLT3, CMP3, FERR3, B12, TSH5, MG3, LIPD2, IRON3 #### [facility] [address] [place] [address] #### ZINC2 #### The performing lab is in the report. Cobalamin (Vitamin B12) [Mass/Vol] pg/mL High 239 - 931 pg/mL [facility] Interpretation and review of laboratory results Abnormal [facility] Basophil percentageon 2021 Bilirubin [Mass/Vol] 0.40 mg/dL 0.20-1.00 [facility] Work Phone: Comment on above: For patients on eltr ombopag therapy, use of Dimension [place] TBIL is not recommended. Chloride [Moles/Vol] 107 mmol/L 98-107 [facility] Work Phone: Cholesterol [Mass/Vol] 174 mg/dL <200 [facility] Work Phone: Comment on above: <200 mg/dL Desirable 200-240 mg/dL Borderline >240 mg/dL High Risk Glucose [Mass/Vol] 95 mg/dL 74-106 [facility] Work Phone: Potassium [Moles/Vol] 3.5 mmol/L 3.5-5.1 [facility] Work Phone: Protein [Mass/Vol] 7.3 g/dL 6.4-8.2 [facility] Work Phone: Sodium [Moles/Vol] 139 mmol/L 136-145 [facility] Work Phone: Triglyceride [Mass/Vol] 166 mg/dL [facility] Work Phone: Comment on above: The drugs N-Acetylcy steine and Metamizole may falsely depress this assay.Serum Triglycerides Reference Interval Normal <150 mg/dL Borderline high 150 - 199 mg/dL High 200 - 499 mg/dL Very High > or = 500 mg/dL WBC (Bld) [#/Vol] 5.2 10*3/uL 4.4-11.0 [facility] Work Phone: Blood erythrocytes count (nu mber/volume)on 11-01-2021 RBC (Bld) [#/Vol] 4.53 10*6/uL 4.2-5.4 [facility] Work Phone: Blood hemoglobin measurement (mass/volume)on 11-01-2021 Hemoglobin (Bld) [Mass/Vol] 14.1 g/dL 12.0-15.0 [facility] Work Phone: Blood platelet mean volumeon 11-01-2021 Platelet mean volume (Bld) [Entitic vol] 9.7 fL 6.2-12.0 [facility] Work Phone: Determination of erythrocyte mean corpuscular volume (MCV)on 11-01-2021 MCV (RBC) [Entitic vol] 95.4 fL 81-99 [facility] Work Phone: Hematocrit Auto (Bld) [Volum e fraction]on 11-01-2021 Hematocrit (Bld) [Volume fraction] 43.2 % 37-47 [facility] Work Phone: Iron measurement (mass/mass) on 11-01-2021 Iron (Unsp spec) [Mass/Mass] 112 ug/dL 50-170 [facility] Work Phone: Laboratory - Chemistry and C hemistry - challengeon 11-01-2021 ALP [Catalytic activity/Vol] 93 U/L 45-117 [facility] Work Phone: ALT [Catalytic activity/Vol] 41 U/L 13-56 [facility] Work Phone: CO2 [Moles/Vol] 24.0 mmol/L 21.0-32.0 [facility] Work Phone: Globulin (S) [Mass/Vol] 3.6 g/dL 2.2-4.2 [facility] Work Phone: Magnesium [Mass/Vol] 2.0 mg/dL 1.6-2.6 [facility] Work Phone: Urea nitrogen/Creatinine [Mass ratio] 16.0 mg/mg 10-20 [facility] Work Phone: Laboratory - Hematology and Cell countson 11-01-2021 Erythrocyte distribution width (RBC) [Entitic vol] 42.5 fL 35.1-43.9 [facility] Work Phone: Erythrocyte distribution width (RBC) [Ratio] 12.1 % 11.6-14.6 [facility] Work Phone: MCH (RBC) [Entitic mass] 31.1 pg 27.0-32.0 [facility] Work Phone: MCHC Auto (RBC) [Mass/Vol]on 11-01-2021 MCHC (RBC) [Mass/Vol] 32.6 g/dL 32-36 [facility] Work Phone: No Panel Informationon 11-01 Estimated GFR (MDRD) Amer 95 mL/min >60 [facility] Work Phone: Comment on above: GFR Calc Estimated GFR (MDRD) Non-Af Amer 78 mL/min >60 [facility] Work Phone: Comment on above: Non- GFR Calc Thyroid Stimulating Hormone (TSH) 1.68 uIU/mL 0.358-3.74 [facility] Work Phone: Vitamin B12 Level > 2000 pg/mL [phone] [facility] Work Phone: Vitamin D 25-Hydroxy 54.0 ng/mL [facility] Work Phone: Comment on above: Vitamin D 25(OH) Sta tus Range Deficiency <20 ng/mL (50nmol/L) Insufficiency 20 - 30 ng/mL (50 - 75 nmol/L) Sufficiency 30 - 100 ng/mL (75 - 250 nmol/L) Toxicity >100 ng/mL (>250 nmol/L) Whole Blood Vitamin B1 Level 93.3 nmol/L [facility] Work Phone: Platelets bldon 11-01-2021 Platelets (Bld) [#/Vol] 282 10*3/uL 150-450 [facility] Work Phone: Serum or plasma albumin andrés urement (mass/volume)on 11-01-2021 Albumin [Mass/Vol] 3.7 g/dL 3.2-5.0 [facility] Work Phone: Serum or plasma albumin/glob ulin mass ratioon 11-01-2021 Albumin/Globulin [Mass ratio] 1.0 {ratio} 0.9-2.4 [facility] Work Phone: Serum or plasma calcium andrés urement (mass/volume)on 11-01-2021 Calcium [Mass/Vol] 8.8 mg/dL 8.5-10.1 [facility] Work Phone: Serum or plasma cholesterol in HDL measurement (mass/volume)on 11-01-2021 Cholesterol in HDL [Mass/Vol] 37 mg/dL [facility] Work Phone: Comment on above: The drugs N-Acetylcy steine and Metamizole may falsely depress this assay. Reference Range HDL <40 mg/dL Low HDL Cholesterol HDL >or= 60 mg/dL High HDL Cholesterol Serum or plasma cholesterol in VLDL measurement (mass/volume)on 11-01-2021 Cholesterol in VLDL [Mass/Vol] 33 mg/dL 5-40 [facility] Work Phone: Serum or plasma creatinine m easurement (mass/volume)on 11-01-2021 Creatinine [Mass/Vol] 0.81 mg/dL 0.55-1.02 [facility] Work Phone: [phone] Comment on above: The validity of the calculated GFR & GFRAA in patients over 70 years has not been determined. Clinical correlation is essential. Serum or plasma ferritin day surement (mass/volume)on 11-01-2021 Ferritin [Mass/Vol] 99 ng/mL 8-252 [facility] Work Phone: Serum or plasma folate measu rement (mass/volume)on 11-01-2021 Folate [Mass/Vol] 5.50 ng/mL 3.1-55.4 [facility] Work Phone: Serum or plasma low density lipoprotein (LDL) cholesterol measurement (mass/volume)on 11-01-2021 Cholesterol in LDL [Mass/Vol] 104 mg/dL 0-130 [facility] Work Phone: Serum or plasma urea nitroge n measurement (mass/volume)on 11-01-2021 Urea nitrogen [Mass/Vol] 13 mg/dL 7-18 [facility] Work Phone: Serum or plasma zinc measure ment (mass/volume)on 11-01-2021 Zinc [Mass/Vol] 97 ug/dL [facility] Work Phone: Comment on above: Detection Limit = 5P erformed at: [facility] [id number] Director: Pranav Aparicio MD, Phone: [phone] Thin prep Papanicolaou smear with manual screeningon 11-01-2021 Thin prep Papanicolaou smear with manual screening 27 U/L 15-37 [facility] Work Phone: Thin prep Papanicolaou smear with manual screening 8 5-15 [facility] Work Phone: Whole blood hemoglobin A1c/t otal hemoglobin ratio (mass fraction)on 11-01-2021 HbA1c (Bld) [Mass fraction] 4.9 % 3.8-5.6 [facility] Work Phone: Comment on above: Normal < 5.7 % Predi abetic 5.7 - 6.4 % Diabetic >or= 6.5 % Please note range changes. RF UGI w/o KUB w/ or w/o Del ay Flmon 10-09-2021 RF UGI w/o KUB w/ or w/o Delay Flm Patient Name: SANTOS ALLAN Fluoroscopy ACCESSION EXAM DATE/TIME PROCEDURE ORDERING PROVIDER [id number] 10/09/2021 08:42 EST RF UGI w/o KUB and w/ or [id number] -ZUPKE, GARRET w/o Delay Flm CPT code 56455 Reason For Exam (RF UGI w/o KUB and w/ or w/o Delay Flm) Heartburn Report AIR CONTRAST UGI SERIES CLINICAL INDICATIONS: 55-year-old female: Hiatal hernia, with increased reflux. History of gastric lap band in 2007. COMPARISON: None FLUOROSCOPY TIME: 1.35minutes. FLUOROSCOPIC EXPOSURES: 35 TECHNIQUE: Biphasic exam was performed with barium and air. FINDINGS: Pressing Machine Tender abdominal image demonstrates a nonspecific nonobstructive bowel [...] Dictated: 10/09/2021 10:15 am Dictating Physician: MD JD, RADHA Ortega Signed Date and Time: 10/09/2021 1:44 pm Signed by: MD MILES JONATHAN R Transcribed Date and Time: 10/09/2021 11:51 Normal [facility] , urineOrdered By: Rubin Washington on 10-13-2019 Beta HCG ( test) Ql (U) Negative Negative NA [facility] Work Phone: Comment on above: is the mos t common reason for HCG in urine, although choriocarcinoma, hydatidiform mole, and certain nontropho- blastic malignancies also result in detectable urinary HCG levels. Sensitivity = 20mIU/mL. Test Performed by [facility], [address] [place] [address] Rd. , [address] Work Phone: Vital Signs Date Time Vital Sign Value Performing Clinician Facility 05-11-2025 07:40-0400 Diastolic blood pressure 72 mm[Hg] Fior Alvarez APRN.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 Work Phone: [facility] Comment on above: BP Ismael 05-11-2025 07:40-0400 Systolic blood pressure 116 mm[Hg] Fior Alvarez APRN.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 Work Phone: [facility] Comment on above: BP Ismael 05-11-2025 07:31-0400 Body mass index (BMI) [Ratio] 28.41 kg/m2 Fior Alvarez APRN.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 Work Phone: [facility] 05-11-2025 07:31-0400 Body weight 79.83 kg Fior Older ARMORED CAR 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.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 Work Phone: [facility] 05-11-2025 07:31-0400 Respiratory rate 16 /min Fior Older ARM[employer]ED [employer] 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.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 Work Phone: [facility] 05-07-2025 15:52-0400 Body mass index (BMI) [Ratio] 28.34 kg/m2 Ash Chowdhury MD Work Phone: [facility] 05-07-2025 15:52-0400 Body weight 79.65 kg Ash Chowdhury MD Work Phone: [facility] 05-07-2025 15:52-0400 Diastolic blood pressure 84 mm[Hg] Ash Chowdhury MD Work Phone: [facility] 05-07-2025 15:52-0400 Systolic blood pressure 120 mm[Hg] Ash Chowdhury MD Work Phone: [facility] 05-02-2025 15:35-0400 Body mass index (BMI) [Ratio] 28.89 kg/m2 Fior Older ARMORED [employer] 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.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 Work Phone: [facility] 05-02-2025 15:35-0400 Body weight 81.19 kg Fior Older ARMORED CAR 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.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 Work Phone: [facility] 05-02-2025 15:35-0400 Diastolic blood pressure 100 mm[Hg] Fior Older ARMORED [employer] 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.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 Work Phone: [facility] 05-02-2025 15:35-0400 Heart rate 76 /min Fior Older ARMORED [employer] 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.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 Work Phone: [facility] 05-02-2025 15:35-0400 Respiratory rate 16 /min Fior Older ARMORED CAR 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.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 Work Phone: [facility] 05-02-2025 15:35-0400 SaO2% (BldA) [Mass fraction] 100 % Fior Older ARMORED [employer] 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.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 Work Phone: [facility] 05-02-2025 15:35-0400 Systolic blood pressure 162 mm[Hg] Fior Older ARMORED CAR 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.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 Work Phone: [facility] 04-10-2025 09:33-0400 Body mass index (BMI) [Ratio] 29.05 kg/m2 Angelique Bogner PA-C Work Phone: [facility] 04-10-2025 09:33-0400 Body temperature 97.5 [degF] Angelique Bogner PA-C Work Phone: [facility] 04-10-2025 09:33-0400 Body weight 81.65 kg Angelique Bogner PA-C Work Phone: [facility] 04-10-2025 09:33-0400 Diastolic blood pressure 81 mm[Hg] Angelique Bogner PA-C Work Phone: [facility] 04-10-2025 09:33-0400 Heart rate 71 /min Angelique Bogner PA-C Work Phone: [facility] 04-10-2025 09:33-0400 SaO2% (BldA) [Mass fraction] 97 % Angelique Bogner PA-C Work Phone: [facility] 04-10-2025 09:33-0400 Systolic blood pressure 126 mm[Hg] Angelique Bogner PA-C Work Phone: [facility] 04-09-2025 09:29-0400 Body height 167.6 cm Ash Chowdhury MD Work Phone: [facility] 04-09-2025 09:29-0400 Body mass index (BMI) [Ratio] 28.92 kg/m2 Ash Chowdhury MD Work Phone: [facility] 04-09-2025 09:29-0400 Body weight 81.28 kg Ash Chowdhury MD Work Phone: [facility] 04-09-2025 09:29-0400 Diastolic blood pressure 75 mm[Hg] Ash Chowdhury MD Work Phone: [facility] 04-09-2025 09:29-0400 Heart rate 76 /min Ash Chowdhury MD Work Phone: [facility] 04-09-2025 09:29-0400 Respiratory rate 14 /min Ash Chowdhury MD Work Phone: [facility] 04-09-2025 09:29-0400 SaO2% (BldA) [Mass fraction] 98 % Ash Chowdhury MD Work Phone: [facility] 04-09-2025 09:29-0400 Systolic blood pressure 116 mm[Hg] Ash Chowdhury MD Work Phone: [facility] 03-30-2025 07:21-0400 Body height 167.6 cm Fior Older ARMORED [employer] 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.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 Work Phone: [facility] 03-30-2025 07:21-0400 Body mass index (BMI) [Ratio] 28.57 kg/m2 Fior Older ARMORED [employer] 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.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 Work Phone: [facility] 03-30-2025 07:21-0400 Body temperature 98.2 [degF] Fior Older ARMORED [employer] 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.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 Work Phone: [facility] 03-30-2025 07:21-0400 Body weight 80.29 kg Fior Older ARMORED [employer] 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.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 Work Phone: [facility] 03-30-2025 07:21-0400 Diastolic blood pressure 70 mm[Hg] Fior Older ARMORED [employer] 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.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 Work Phone: [facility] 03-30-2025 07:21-0400 Heart rate 76 /min Fior Older ARMORED [employer] 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.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 Work Phone: [facility] 03-30-2025 07:21-0400 Respiratory rate 18 /min Fior Older ARMORED CAR 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.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 Work Phone: [facility] 03-30-2025 07:21-0400 SaO2% (BldA) [Mass fraction] 99 % Fior Older ARMORED CAR 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.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 Work Phone: [facility] 03-30-2025 07:21-0400 Systolic blood pressure 102 mm[Hg] Fior Older ARMORED CAR 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.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 Work Phone: [facility] 03-28-2025 15:56-0400 Body mass index (BMI) [Ratio] 28.09 kg/m2 Luz Christinaer PA-C Work Phone: [facility] 03-28-2025 15:56-0400 Body weight 79.47 kg Luz Christinaer PA-C Work Phone: [facility] 03-28-2025 15:56-0400 Diastolic blood pressure 74 mm[Hg] Luz Christinaer PA-C Work Phone: [facility] 03-28-2025 15:56-0400 Heart rate 81 /min Luz Christinaer PA-C Work Phone: [facility] 03-28-2025 15:56-0400 Respiratory rate 16 /min Luz Christinaer PA-C Work Phone: [facility] 03-28-2025 15:56-0400 SaO2% (BldA) [Mass fraction] 99 % Luz Christinaer PA-C Work Phone: [facility] 03-28-2025 15:56-0400 Systolic blood pressure 105 mm[Hg] Luz Christinaer PA-C Work Phone: [facility] 03-12-2025 08:50-0400 Body mass index (BMI) [Ratio] 28.96 kg/m2 Ana Bolaños MD Work Phone: [facility] 03-12-2025 08:50-0400 Body weight 81.92 kg Ana Bolaños MD Work Phone: [facility] 03-12-2025 08:50-0400 Diastolic blood pressure 82 mm[Hg] Ana Bolaños MD Work Phone: [facility] 03-12-2025 08:50-0400 Heart rate 87 /min Ana Bolaños MD Work Phone: [facility] 03-12-2025 08:50-0400 SaO2% (BldA) [Mass fraction] 96 % Ana Bolaños MD Work Phone: [facility] 03-12-2025 08:50-0400 Systolic blood pressure 118 mm[Hg] Ana Bolaños MD Work Phone: [facility] 03-07-2025 07:48-0400 Body mass index (BMI) [Ratio] 29.13 kg/m2 Jacquie Fermin ARMORED CAR 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.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 Work Phone: [facility] 03-07-2025 07:48-0400 Body temperature 97.5 [degF] Jacquie Fermin ARMORED CAR 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.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 Work Phone: [facility] 03-07-2025 07:48-0400 Body weight 82.4 kg Jacquie PedersenFermin ARMORED CAR 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.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 Work Phone: [facility] 03-07-2025 07:48-0400 Diastolic blood pressure 78 mm[Hg] Jacquie Fermin ARMORED CAR 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.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 Work Phone: [facility] 03-07-2025 07:48-0400 Heart rate 84 /min Jacquie Fermin ARMORED CAR 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.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 Work Phone: [facility] 03-07-2025 07:48-0400 Respiratory rate 16 /min Jacquie Fermin ARMORED CAR 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.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 Work Phone: [facility] 03-07-2025 07:48-0400 SaO2% (BldA) [Mass fraction] 99 % Jacquie PedersenFermin ARMORED CAR 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.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 Work Phone: [facility] 03-07-2025 07:48-0400 Systolic blood pressure 120 mm[Hg] Jacquie Fermin ARMORED CAR 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.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 Work Phone: [facility] 02-08-2025 14:51-0400 Body mass index (BMI) [Ratio] 29.02 kg/m2 Richie Newman ARMORED CAR 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.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 Work Phone: [facility] 02-08-2025 14:51-0400 Body weight 82.1 kg Richie Newman ARMORED CAR 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.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 Work Phone: [facility] 02-08-2025 14:51-0400 Diastolic blood pressure 78 mm[Hg] Richie Newman ARMORED CAR 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.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 Work Phone: [facility] 02-08-2025 14:51-0400 Systolic blood pressure 118 mm[Hg] Richie Newman ARMORED CAR 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.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 Work Phone: [facility] 01-25-2025 09:36-0400 Body mass index (BMI) [Ratio] 29.82 kg/m2 Fior Older ARMORED CAR 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.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 Work Phone: [facility] 01-25-2025 09:36-0400 Body weight 84.37 kg ARMORED CAR 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.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 Work Phone: [facility] 01-25-2025 09:36-0400 Diastolic blood pressure 94 mm[Hg] ARMORED [employer] 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.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 Work Phone: [facility] 01-25-2025 09:36-0400 Heart rate 87 /min ARM[employer]ED [employer] 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.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 Work Phone: [facility] 01-25-2025 09:36-0400 Respiratory rate 16 /min ARMORED [employer] 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.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 Work Phone: [facility] 01-25-2025 09:36-0400 SaO2% (BldA) [Mass fraction] 98 % ARMORED [employer] 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.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 Work Phone: [facility] 01-25-2025 09:36-0400 Systolic blood pressure 134 mm[Hg] ARMORED [employer] 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.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 Work Phone: [facility] 11-10-2024 08:38-0500 Diastolic blood pressure 83 mm[Hg] Ana Bolaños MD Work Phone: [facility] 11-10-2024 08:38-0500 Heart rate 85 /min Ana Bolaños MD Work Phone: [facility] 11-10-2024 08:38-0500 Systolic blood pressure 127 mm[Hg] Ana Bolaños MD Work Phone: [facility] 11-10-2024 07:59-0500 Body mass index (BMI) [Ratio] 31.46 kg/m2 Ana oBlaños MD Work Phone: [facility] 11-10-2024 07:59-0500 Body weight 89 kg Ana Bolaños MD Work Phone: [facility] 11-10-2024 07:59-0500 Respiratory rate 16 /min Ana Bolaños MD Work Phone: [facility] 09-05-2024 06:57-0500 Body height 168.2 cm Katarina Warsaw ARMORED [employer] 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.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 Work Phone: [facility] 09-05-2024 06:57-0500 Body mass index (BMI) [Ratio] 33.7 kg/m2 Katarina Bessie ARMORED CAR 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.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 Work Phone: [facility] 09-05-2024 06:57-0500 Body weight 95.35 kg Katarina Bessie ARMORED CAR 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.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 Work Phone: [facility] 09-05-2024 06:57-0500 Diastolic blood pressure 72 mm[Hg] Katarina Bessie ARMORED CAR 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.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 Work Phone: [facility] 09-05-2024 06:57-0500 Systolic blood pressure 124 mm[Hg] Katarina Bessie ARMORED CAR 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.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 Work Phone: [facility] 08-11-2024 08:52-0500 Diastolic blood pressure 80 mm[Hg] Ana Bolaños MD Work Phone: [facility] 08-11-2024 08:52-0500 Systolic blood pressure 116 mm[Hg] Ana Bolaños MD Work Phone: [facility] 08-11-2024 08:50-0500 Body mass index (BMI) [Ratio] 34.51 kg/m2 Ana Bolaños MD Work Phone: [facility] 08-11-2024 08:50-0500 Body weight 97.41 kg Ana Bolaños MD Work Phone: [facility] 08-11-2024 08:50-0500 Heart rate 91 /min Ana Bolaños MD Work Phone: [facility] 08-11-2024 08:50-0500 SaO2% (BldA) [Mass fraction] 97 % Ana Bolaños MD Work Phone: [facility] 07-18-2024 16:14-0500 Body mass index (BMI) [Ratio] 35.43 kg/m2 Luz Queener PA-C Work Phone: [facility] 07-18-2024 16:14-0500 Body weight 100 kg Luz Queener PA-C Work Phone: [facility] 07-18-2024 16:14-0500 Diastolic blood pressure 85 mm[Hg] Luz Queener PA-C Work Phone: [facility] 07-18-2024 16:14-0500 Heart rate 87 /min Luz Queener PA-C Work Phone: [facility] 07-18-2024 16:14-0500 Respiratory rate 12 /min Luz Queener PA-C Work Phone: [facility] 07-18-2024 16:14-0500 SaO2% (BldA) [Mass fraction] 96 % Luz Queener PA-C Work Phone: [facility] 07-18-2024 16:14-0500 Systolic blood pressure 128 mm[Hg] Luz Queener PA-C Work Phone: [facility] 05-09-2024 08:11-0400 Body height 168 cm Ana Bolaños MD Work Phone: [facility] 05-09-2024 08:11-0400 Body mass index (BMI) [Ratio] 38.44 kg/m2 Ana Bolaños MD Work Phone: [facility] 05-09-2024 08:11-0400 Body weight 108.5 kg Ana Bolañso MD Work Phone: [facility] 05-09-2024 08:11-0400 Diastolic blood pressure 78 mm[Hg] Ana Bolaños MD Work Phone: [facility] 05-09-2024 08:11-0400 Heart rate 80 /min Ana Bolaños MD Work Phone: [facility] 05-09-2024 08:11-0400 SaO2% (BldA) [Mass fraction] 97 % Ana Bolaños MD Work Phone: [facility] 05-09-2024 08:11-0400 Systolic blood pressure 124 mm[Hg] Ana Bolaños MD Work Phone: [facility] 03-28-2024 06:56-0400 Body mass index (BMI) [Ratio] 38.77 kg/m2 Luz Queener PA-C Work Phone: [facility] 03-28-2024 06:56-0400 Body weight 109.77 kg Luz Queener PA-C Work Phone: [facility] 03-28-2024 06:56-0400 Diastolic blood pressure 74 mm[Hg] Luz Queener PA-C Work Phone: [facility] 03-28-2024 06:56-0400 Heart rate 80 /min Luz Queener PA-C Work Phone: [facility] 03-28-2024 06:56-0400 Respiratory rate 16 /min Luz Queener PA-C Work Phone: [facility] 03-28-2024 06:56-0400 SaO2% (BldA) [Mass fraction] 97 % Luz Queener PA-C Work Phone: [facility] 03-28-2024 06:56-0400 Systolic blood pressure 132 mm[Hg] Luz Queener PA-C Work Phone: [facility] 03-03-2024 06:57-0400 Body mass index (BMI) [Ratio] 38.61 kg/m2 Jacquie Clarke ARMORED [employer] 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.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 Work Phone: [facility] 03-03-2024 06:57-0400 Body weight 109.32 kg Jacquie Clarke ARMORED [employer] 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.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 Work Phone: [facility] 03-03-2024 06:57-0400 Diastolic blood pressure 84 mm[Hg] Jacquie Fermin ARMORED CAR 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.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 Work Phone: [facility] 03-03-2024 06:57-0400 Heart rate 89 /min Jacquie Fermin ARMORED CAR 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.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 Work Phone: [facility] 03-03-2024 06:57-0400 Respiratory rate 16 /min Jacquie Fermin ARMORED CAR 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.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 Work Phone: [facility] 03-03-2024 06:57-0400 SaO2% (BldA) [Mass fraction] 94 % Jacquie Fermin ARMORED CAR 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.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 Work Phone: [facility] 03-03-2024 06:57-0400 Systolic blood pressure 118 mm[Hg] Jacquie Fermin ARMORED CAR 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.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 Work Phone: [facility] 02-04-2024 07:04-0400 Body mass index (BMI) [Ratio] 39.57 kg/m2 Jacquie Fermin ARMORED CAR 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.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 Work Phone: [facility] 02-04-2024 07:04-0400 Body weight 112.04 kg Jacquie Fermin ARMORED CAR 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.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 Work Phone: [facility] 02-04-2024 07:04-0400 Diastolic blood pressure 88 mm[Hg] Jacquie Fermin ARMORED CAR 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.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 Work Phone: [facility] 02-04-2024 07:04-0400 Heart rate 84 /min Jacquie Fermin ARMORED CAR 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.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 Work Phone: [facility] 02-04-2024 07:04-0400 Respiratory rate 16 /min Jacquie Fermin ARMORED CAR 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.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 Work Phone: [facility] 02-04-2024 07:04-0400 SaO2% (BldA) [Mass fraction] 95 % Jacquie Fermin ARMORED CAR 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.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 Work Phone: [facility] 02-04-2024 07:04-0400 Systolic blood pressure 128 mm[Hg] Jacquie PedersenFermin ARMORED CAR 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.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 Work Phone: [facility] 01-07-2024 09:26-0400 Diastolic blood pressure 70 mm[Hg] Fior Older ARMORED CAR 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.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 Work Phone: [facility] 01-07-2024 09:26-0400 Systolic blood pressure 113 mm[Hg] Fior Older ARMORED CAR 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.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 Work Phone: [facility] 01-07-2024 07:23-0400 Body mass index (BMI) [Ratio] 39.09 kg/m2 Fior Older ARMORED CAR 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.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 Work Phone: [facility] 01-07-2024 07:23-0400 Body weight 110.68 kg Fior Older ARMORED CAR 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.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 Work Phone: [facility] 01-07-2024 07:23-0400 Heart rate 84 /min Fior Older ARMORED CAR 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.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 Work Phone: [facility] 01-07-2024 07:23-0400 Respiratory rate 16 /min Fior Older ARMORED CAR 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.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 Work Phone: [facility] 01-07-2024 07:23-0400 SaO2% (BldA) [Mass fraction] 96 % Fior Older ARMORED CAR 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.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 Work Phone: [facility] 09-02-2023 10:22-0500 Body height 168.3 cm Gavin Moctezuma MD Work Phone: [facility] 09-02-2023 10:22-0500 Body mass index (BMI) [Ratio] 36.68 kg/m2 Gavin Moctezuma MD Work Phone: [facility] 09-02-2023 10:22-0500 Body temperature 96.49 [degF] Gavin Moctezuma MD Work Phone: [facility] 09-02-2023 10:22-0500 Body weight 103.87 kg Gavin Moctezuma MD Work Phone: [facility] 09-02-2023 10:22-0500 Diastolic blood pressure 83 mm[Hg] Gavin Moctezuma MD Work Phone: [facility] 09-02-2023 10:22-0500 Heart rate 85 /min Gavin Moctezuma MD Work Phone: [facility] 09-02-2023 10:22-0500 Respiratory rate 16 /min Gavin Moctezuma MD Work Phone: [facility] 09-02-2023 10:22-0500 Systolic blood pressure 128 mm[Hg] Gavin Moctezuma MD Work Phone: [facility] 08-19-2023 07:53-0500 Body weight 103.42 kg Fior Older ARMORED CAR 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.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 Work Phone: [facility] 08-19-2023 07:53-0500 Diastolic blood pressure 84 mm[Hg] Fior Older ARMORED CAR 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.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 Work Phone: [facility] 08-19-2023 07:53-0500 Heart rate 76 /min Fior Older ARMORED CAR 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.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 Work Phone: [facility] 08-19-2023 07:53-0500 Respiratory rate 16 /min Fior Older ARMORED CAR 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.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 Work Phone: [facility] 08-19-2023 07:53-0500 SaO2% (BldA) [Mass fraction] 96 % Fior Older ARMORED CAR 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.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 Work Phone: [facility] 08-19-2023 07:53-0500 Systolic blood pressure 136 mm[Hg] Fior Older ARMORED CAR 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.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 Work Phone: [facility] 04-05-2023 14:00-0400 Body height 170.2 cm Garret Zupke PA Work Phone: [facility] 04-05-2023 14:00-0400 Body mass index (BMI) [Ratio] 33.27 kg/m2 Garret Zupke PA Work Phone: [facility] 04-05-2023 14:00-0400 Body temperature 96.1 [degF] Garret Zupke PA Work Phone: [facility] 04-05-2023 14:00-0400 Body weight 96.34 kg Garret Zupke PA Work Phone: [facility] 04-05-2023 14:00-0400 Diastolic blood pressure 84 mm[Hg] Garret Zupke PA Work Phone: [facility] 04-05-2023 14:00-0400 Heart rate 94 /min Garret Zupke PA Work Phone: [facility] 04-05-2023 14:00-0400 Respiratory rate 16 /min Garret Zupke PA Work Phone: [facility] 04-05-2023 14:00-0400 Systolic blood pressure 119 mm[Hg] Garret Zupke PA Work Phone: [facility] 12-04-2022 07:17-0400 Body weight 102.97 kg Fior Older ARMORED CAR 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.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 Work Phone: [facility] 12-04-2022 07:17-0400 Diastolic blood pressure 78 mm[Hg] Fior Older ARMORED CAR 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.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 Work Phone: [facility] 12-04-2022 07:17-0400 Heart rate 88 /min Fior Older ARMORED CAR 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.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 Work Phone: [facility] 12-04-2022 07:17-0400 Respiratory rate 16 /min Fior Older ARMORED CAR 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.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 Work Phone: [facility] 12-04-2022 07:17-0400 Systolic blood pressure 114 mm[Hg] Fior Older ARMORED CAR 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.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 Work Phone: [facility] 12-02-2022 13:05-0400 Body height 170.2 cm Garret Zupke PA Work Phone: [facility] 12-02-2022 13:05-0400 Body mass index (BMI) [Ratio] 35.77 kg/m2 Garret Zupke PA Work Phone: [facility] 12-02-2022 13:05-0400 Body temperature 96.01 [degF] Garret Zupke PA Work Phone: [facility] 12-02-2022 13:05-0400 Body weight 103.6 kg Garret Zupke PA Work Phone: [facility] 12-02-2022 13:05-0400 Diastolic blood pressure 78 mm[Hg] Garret Zupke PA Work Phone: [facility] 12-02-2022 13:05-0400 Heart rate 98 /min Garret Zupke PA Work Phone: [facility] 12-02-2022 13:05-0400 Respiratory rate 16 /min Garret Zupke PA Work Phone: [facility] 12-02-2022 13:05-0400 Systolic blood pressure 123 mm[Hg] Garret Zupke PA Work Phone: [facility] 10-08-2022 09:07-0500 Body height 170.2 cm Gavin Moctezuma MD Work Phone: [facility] Comment on above: [facility] 10-08-2022 09:07-0500 Body mass index (BMI) [Ratio] 38.97 kg/m2 Gavin Moctezuma MD Work Phone: [facility] 10-08-2022 09:07-0500 Body temperature 94.89 [degF] Gavin Moctezuma MD Work Phone: [facility] 10-08-2022 09:07-0500 Body weight 112.86 kg Gavin Moctezuma MD Work Phone: [facility] 10-08-2022 09:07-0500 Diastolic blood pressure 72 mm[Hg] Gavin Moctezuma MD Work Phone: [facility] 10-08-2022 09:07-0500 Heart rate 105 /min Gavin Moctezuma MD Work Phone: [facility] 10-08-2022 09:07-0500 Respiratory rate 18 /min Gavin Moctezuma MD Work Phone: [facility] 10-08-2022 09:07-0500 Systolic blood pressure 127 mm[Hg] Gavin Moctezuma MD Work Phone: [facility] 09-10-2022 11:09-0500 Body height 170.2 cm Garret Zupke PA Work Phone: [facility] Comment on above: [facility] 09-10-2022 11:09-0500 Body mass index (BMI) [Ratio] 41.35 kg/m2 Garret Zupke PA Work Phone: [facility] 09-10-2022 11:09-0500 Body temperature 95.31 [degF] Garret Zupke PA Work Phone: [facility] 09-10-2022 11:09-0500 Body weight 119.75 kg Garret Zupke PA Work Phone: [facility] 09-10-2022 11:09-0500 Diastolic blood pressure 77 mm[Hg] Garret Zupke PA Work Phone: [facility] 09-10-2022 11:09-0500 Heart rate 101 /min Garret Zupke PA Work Phone: [facility] 09-10-2022 11:09-0500 Respiratory rate 18 /min Garret Zupke PA Work Phone: [facility] 09-10-2022 11:09-0500 SaO2% (BldA) [Mass fraction] 99 % Garret Zupke PA Work Phone: [facility] 09-10-2022 11:09-0500 Systolic blood pressure 136 mm[Hg] Garret Zupke PA Work Phone: [facility] 08-28-2022 11:48-0500 Body weight 121.56 kg Fior Older ARMORED CAR 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.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 Work Phone: [facility] 08-28-2022 11:48-0500 Diastolic blood pressure 76 mm[Hg] Fior Older ARMORED CAR 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.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 Work Phone: [facility] 08-28-2022 11:48-0500 Heart rate 92 /min Fior Older ARMORED CAR 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.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 Work Phone: [facility] 08-28-2022 11:48-0500 Respiratory rate 16 /min Fior Older ARMORED CAR 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.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 Work Phone: [facility] 08-28-2022 11:48-0500 Systolic blood pressure 128 mm[Hg] Fior Older ARMORED CAR 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.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 Work Phone: [facility] 04-06-2022 16:34-0400 Body temperature 96.91 [degF] Alexander Quinteros Jr., MD Work Phone: [facility] 04-06-2022 16:34-0400 Body weight 116.12 kg Alexander Quinteros Jr., MD Work Phone: [facility] 04-06-2022 16:34-0400 Diastolic blood pressure 86 mm[Hg] Alexander Quinteros Jr., MD Work Phone: [facility] 04-06-2022 16:34-0400 Heart rate 94 /min Alexander Quinteros Jr., MD Work Phone: [facility] 04-06-2022 16:34-0400 Respiratory rate 18 /min Alexander Quinteros Jr., MD Work Phone: [facility] 04-06-2022 16:34-0400 SaO2% (BldA) [Mass fraction] 96 % Alexander Quinteros Jr., MD Work Phone: [facility] 04-06-2022 16:34-0400 Systolic blood pressure 118 mm[Hg] Alexander Quinteros Jr., MD Work Phone: [facility] 11-18-2021 14:55-0500 Diastolic blood pressure 83 mm[Hg] Gavin Moctezuma MD Work Phone: [facility] 11-18-2021 14:55-0500 Heart rate 105 /min Gavin Moctezuma MD Work Phone: [facility] 11-18-2021 14:55-0500 Respiratory rate 15 /min Gavin Moctezuma MD Work Phone: [facility] 11-18-2021 14:55-0500 SaO2% (BldA) [Mass fraction] 99 % Gavin Moctezuma MD Work Phone: [facility] 11-18-2021 14:55-0500 Systolic blood pressure 127 mm[Hg] Gavin Moctezuma MD Work Phone: [facility] 11-18-2021 13:57-0500 Body temperature 97 [degF] Gavin Moctezuma MD Work Phone: [facility] 11-18-2021 11:18-0500 Body mass index (BMI) [Ratio] 39 kg/m2 Gavin Moctezuma MD Work Phone: [facility] 11-18-2021 11:18-0500 Body weight 112.95 kg Gavin Moctezuma MD Work Phone: [facility] 11-18-2021 11:18-0500 Body height 170.2 cm Gavin Moctezuma MD Work Phone: [facility] 11-14-2021 14:09-0500 Body height 170.2 cm Gavin Moctezuma MD Work Phone: [facility] 11-14-2021 14:09-0500 Body mass index (BMI) [Ratio] 39.09 kg/m2 Gavin Moctezuma MD Work Phone: [facility] 11-14-2021 14:09-0500 Body temperature 95.2 [degF] Gavin Moctezuma MD Work Phone: [facility] 11-14-2021 14:09-0500 Body weight 113.22 kg Gavin Moctezuma MD Work Phone: [facility] 11-14-2021 14:09-0500 Diastolic blood pressure 97 mm[Hg] Gavin Moctezuma MD Work Phone: [facility] 11-14-2021 14:09-0500 Heart rate 118 /min Gavin Moctezuma MD Work Phone: [facility] 11-14-2021 14:09-0500 Respiratory rate 20 /min Gavin Moctezuma MD Work Phone: [facility] 11-14-2021 14:09-0500 SaO2% (BldA) [Mass fraction] 97 % Gavin Moctezuma MD Work Phone: [facility] 11-14-2021 14:09-0500 Systolic blood pressure 139 mm[Hg] Gavin Moctezuma MD Work Phone: [facility] 10-13-2019 09:35-0500 Body temperature 97.59 [degF] Rubin Washington MD Work Phone: [facility] Work Phone: 10-13-2019 09:35-0500 Diastolic blood pressure 58 mm[Hg] Rubin Washington MD Work Phone: [facility] Work Phone: 10-13-2019 09:35-0500 Heart rate 100 /min Rubin Washington MD Work Phone: [facility] Work Phone: 10-13-2019 09:35-0500 Respiratory rate 16 /min Rubin Washington MD Work Phone: [facility] Work Phone: 10-13-2019 09:35-0500 SaO2% (BldA) [Mass fraction] 95 % Rubin Washington MD Work Phone: [facility] Work Phone: 10-13-2019 09:35-0500 Systolic blood pressure 101 mm[Hg] Rubin Washington MD Work Phone: [facility] Work Phone: 10-13-2019 07:34-0500 Body height 170.2 cm Rubin Washington MD Work Phone: [facility] Work Phone: 10-13-2019 07:34-0500 Body mass index (BMI) [Ratio] 40.41 kg/m2 Rubin Washington MD Work Phone: [facility] Work Phone: 10-13-2019 07:34-0500 Body weight 117.03 kg Rubin Washington MD Work Phone: [facility] Work Phone: Encounters Encounter Date Encounter Type Care Provider Facility Start: 07-24-2025 End: 07-24-2025 ambulatory [facility] Facility:[facility] Start: 07-12-2025 Encounter for other preprocedural examination [facility] Start: 07-12-2025 Encounter for other preprocedural examination [facility] Start: 07-11-2025 ambulatory [facility] Start: 07-10-2025 ambulatory [facility] Start: 07-10-2025 End: 07-11-2025 ambulatory [facility] Facility:[facility] Start: 07-10-2025 ambulatory [facility] Start: 07-03-2025 End: 07-03-2025 ambulatory [facility] Facility:[facility] Start: 06-25-2025 End: 06-25-2025 ambulatory [facility] Facility:[facility] Start: 06-25-2025 Encounter for other preprocedural examination [facility] Start: 06-08-2025 End: 06-08-2025 ambulatory [facility] Facility:[facility] Start: 06-01-2025 End: 06-01-2025 ambulatory [facility] Facility:[facility] Start: 05-11-2025 End: 05-11-2025 Office outpatient visit 25 minutes Fior Alvarez APRN.CNP Work Phone: [facility] [place] Comment on above: Essential hypertensi on (Primary Dx); Extremity edema; Hypokalemia; Encounter for immunization Start: 05-11-2025 End: 05-11-2025 ambulatory [facility] Facility:[facility] Start: 05-07-2025 End: 05-07-2025 Patient encounter procedure Ash Chowdhury MD Work Phone: OB/Gynecology Comment on above: Post-operative state (Primary Dx); Vaginal atrophy Start: 05-07-2025 End: 05-07-2025 [facility] Facility:[facility] Start: 05-02-2025 End: 05-02-2025 Office outpatient visit 25 minutes Fior Alvarez APRN.CNP Work Phone: [facility] [place] Comment on above: Essential hypertensi on (Primary Dx); Hypokalemia; Extremity edema Start: 05-02-2025 End: 05-02-2025 [facility] Facility:[facility] Start: 04-30-2025 End: 04-30-2025 Follow-up encounter Fior Alvarez APRN.CNP Work Phone: [facility] [place] Start: 04-27-2025 End: 04-27-2025 [facility] Facility:[facility] Start: 04-20-2025 End: 04-24-2025 Refill Luz Meeks PA-C Work Phone: Neurology Comment on above: Refill Request Start: 04-18-2025 End: 04-18-2025 [facility] Facility:[facility] Start: 04-13-2025 End: 04-13-2025 ambulatory Saundra Razia Facility:[facility] Start: 04-12-2025 End: 04-13-2025 Follow-up encounter Angelique Bradford PA-C Work Phone: [facility] [place] Comment on above: Results Start: 04-10-2025 End: 04-10-2025 Office outpatient new 45 minutes Angelique Bradford PA-C Work Phone: [facility] [place] Comment on above: Dysuria (Primary Dx) ; Uterine leiomyoma, unspecified location Start: 04-10-2025 End: 04-10-2025 [facility] Facility:[facility] Start: 04-09-2025 End: 04-09-2025 Patient encounter procedure Ash Chowdhury MD Work Phone: OB/Gynecology Comment on above: Fluid in endometrial cavity (Primary Dx); Visit for pre-operative examination Start: 04-09-2025 End: 04-09-2025 Preprocedural examination done Ash Chowdhury MD Work Phone: [facility] Start: 04-09-2025 End: 04-09-2025 ambulatory [facility] Facility:[facility] Start: 04-05-2025 End: 04-05-2025 ambulatory Josue Charly Keke Facility:[facility] Start: 04-05-2025 End: 04-06-2025 Follow-up encounter Fior Alvarez APRN.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 Work Phone: [facility] [place] Start: 04-03-2025 End: 04-27-2025 ambulatory Fior Alvarez APRN.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 Work Phone: [facility] [place] Comment on above: BMP results - low po tassium Start: 03-30-2025 End: 03-30-2025 Office outpatient visit 25 minutes Fior Alvarez APRN.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 Work Phone: [facility] [place] Comment on above: Preop exam for inter nal medicine (Primary Dx); Essential hypertension; Acquired hypothyroidism; Obstructive sleep apnea syndrome; Migraine without aura and without status migrainosus, not intractable; Type 2 diabetes mellitus with unspecified complications (HCC) Start: 03-30-2025 End: 03-30-2025 Patient encounter status Fior Alvarez APRN.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 Work Phone: [facility] Work Phone: Start: 03-30-2025 End: 03-30-2025 ambulatory [facility] Facility:[facility] Start: 03-30-2025 Encounter for other preprocedural examination [facility] Start: 03-28-2025 End: 03-28-2025 Patient encounter procedure Luz Meeks PA-C Work Phone: Neurology Comment on above: Paresthesia of both feet (Primary Dx); Neuropathy Start: 03-28-2025 End: 03-28-2025 ambulatory [facility] Facility:[facility] Start: 03-28-2025 End: 04-02-2025 Telephone encounter Ash Chowdhury MD Work Phone: OB/Gynecology Comment on above: Patient Question Start: 03-22-2025 End: 03-22-2025 [facility] Facility:[facility] Start: 03-22-2025 End: 03-22-2025 Manual [...] apnea syndrome; Hypokalemia Start: 03-12-2025 End: 03-12-2025 [facility] Facility:[facility] Start: 03-09-2025 End: 05-09-2025 Follow-up encounter Jacquie Clarke APRN.CNP Work Phone: [facility] [place] Start: 03-08-2025 End: 03-08-2025 ambulatory Saundra Razia Facility:[facility] Start: 03-07-2025 End: 03-07-2025 Office outpatient visit 25 minutes Jacquie Clarke APRN.CNP Work Phone: [facility] [place] Comment on above: Lower abdominal pain (Primary Dx); Hematuria, unspecified type Start: 03-07-2025 End: 03-07-2025 [facility] Facility:[facility] Start: 03-05-2025 End: 05-05-2025 Follow-up encounter Fior Alvarez APRN.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 Work Phone: [facility] [place] Start: 03-02-2025 End: 03-02-2025 ambulatory Denver Casillas Facility:[facility] Start: 03-02-2025 End: 03-02-2025 ambulatory [facility] Facility:[facility] Start: 02-27-2025 End: 03-02-2025 ambulatory Ana Bolaños MD Work Phone: [facility] [place] Start: 02-09-2025 End: 04-11-2025 Follow-up encounter Richie Newman APRN.CNP Work Phone: OB/Gynecology Start: 02-09-2025 End: 02-09-2025 Patient encounter procedure Emg 1 Neur [facility] (Max Weight: 850) Neurology Start: 02-09-2025 End: 02-09-2025 ambulatory [facility] Neurology Comment on above: EMG Start: 02-08-2025 End: 02-08-2025 [facility] Facility:[facility] Start: 02-08-2025 End: 02-08-2025 Patient encounter procedure Richie Newman APRN.CNP Work Phone: OB/Gynecology Comment on above: Pelvic pain in femal e (Primary Dx); Vaginal discharge; Thickened endometrium; Screening for HPV (human papillomavirus); Screening for cervical cancer Refill Request Start: 02-07-2025 End: 04-09-2025 Follow-up encounter Fior Alvarez APRN.CNP Work Phone: [facility] [place] Start: 02-06-2025 [facility] Facility:[facility] Start: 02-06-2025 End: 02-06-2025 Subsequent hospital visit by physician [facility] Work Phone: Radiology Comment on above: Uterine cyst [N85.8] Start: 01-29-2025 End: 02-09-2025 ambulatory Fior Alvarez APRN.CNP Work Phone: [facility] [place] Start: 01-29-2025 End: 02-09-2025 Patient encounter procedure Fior Alvarez APRN.CNP Work Phone: [facility] [place] Comment on above: Appointment - January Start: 01-26-2025 End: 01-27-2025 Follow-up encounter Fior Alvarez APRN.CNP Work Phone: [facility] [place] Comment on above: Results - Ct Start: 01-26-2025 ambulatory FIOR ALVAREZ Facility:[facility] Start: 01-26-2025 End: 01-26-2025 Subsequent hospital visit by physician [facility] Comment on above: Right lower quadrant pain [R10.31] Right lower quadrant abdominal pain [R10.31] Start: 01-25-2025 End: 03-27-2025 Follow-up encounter Fior Alvarez APRN.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 Work Phone: [facility] [place] Start: 01-25-2025 End: 01-25-2025 ambulatory [facility] Facility:[facility] Start: 01-25-2025 End: 01-25-2025 Office outpatient visit 25 minutes Fior Alvarez APRN.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 Work Phone: [facility] [place] Comment on above: Lower abdominal pain (Primary Dx); Right lower quadrant abdominal pain; Urinary tract infection without hematuria, site unspecified Start: 01-25-2025 End: 01-25-2025 [facility] Facility:[facility] Start: 01-24-2025 End: 03-26-2025 Follow-up encounter Lucille Brandt PA-C Work Phone: Neurology Start: 01-24-2025 End: 01-29-2025 Telephone encounter Ana Bolaños MD Work Phone: Internal Medicine [place] Comment on above: Insurance Authorizat ion Start: 01-23-2025 End: 01-23-2025 ambulatory Ana Bolaños MD Work Phone: Internal Medicine [place] Comment on above: Mounjaro - is it thien e to increase dose? Start: 01-22-2025 End: 01-22-2025 Subsequent hospital visit by physician [facility] [place] [facility] Work Phone: Radiology Comment on above: Paresthesia of both feet [R20.2] Start: 01-22-2025 End: 01-22-2025 ambulatory [facility] Facility:[facility] Start: 01-22-2025 End: 01-22-2025 Telemedicine consultation with patient Lucille Day Rikki KOLB Work Phone: Neurology Start: 01-22-2025 End: 01-22-2025 ambulatory Lucille Day Rikki KOLB Work Phone: Neurology Comment on above: Paresthesia of both feet (Primary Dx) Start: 12-29-2024 End: 12-29-2024 ambulatory [facility] Start: 12-15-2024 End: 12-15-2024 ambulatory [facility] Start: 12-13-2024 End: 12-13-2024 Refill Fior Alvarez APRN.CNP Work Phone: Internal Medicine [place] Comment on above: Refill Request Start: 12-07-2024 End: 12-07-2024 ambulatory [facility] Start: 12-05-2024 End: 12-05-2024 ambulatory [facility] Start: 12-05-2024 End: 12-05-2024 ambulatory [facility] Facility:[facility] Start: 12-01-2024 End: 12-01-2024 ambulatory [facility] Start: 11-24-2024 End: 11-24-2024 ambulatory [facility] Start: 11-17-2024 End: 11-17-2024 ambulatory [facility] Start: 11-16-2024 ambulatory [facility] Start: 11-15-2024 End: 11-15-2024 ambulatory [facility] Facility:[facility] Start: 11-10-2024 End: 11-10-2024 ambulatory [facility] Facility:[facility] Start: 11-10-2024 End: 11-10-2024 Office [...] Phone: Geriatrics Start: 10-20-2024 End: 10-20-2024 ambulatory [facility] Facility:[facility] Start: 10-20-2024 End: 10-20-2024 Subsequent hospital visit by physician [facility] Comment on above: Encounter for screen ing mammogram for breast cancer [Z12.31] Start: 10-12-2024 End: 10-12-2024 ambulatory [facility] Facility:[facility] Start: 10-12-2024 End: 10-12-2024 ambulatory [facility] Facility:[facility] Start: 10-02-2024 End: 10-03-2024 Refill Fior Alvarez APRN.CNP Work Phone: Internal Medicine [place] Comment on above: Refill Request Start: 09-05-2024 End: 09-05-2024 ambulatory [facility] Facility:[facility] Start: 09-05-2024 End: 09-05-2024 Patient encounter procedure Katarina Guillory APRN.CNP Work Phone: OB/Gynecology Comment on above: Encounter for gyneco logical examination (general) (routine) without abnormal findings (Primary Dx); Encounter for screening mammogram for breast cancer Start: 09-05-2024 End: 09-05-2024 Patient encounter status Katarina Guillory APRN.CNP Work Phone: [facility] Start: 08-23-2024 End: 08-28-2024 Telephone encounter Ana Bolaños MD Work Phone: Internal Medicine [place] Comment on above: Medication Update Start: 08-19-2024 End: 08-19-2024 Telephone encounter Ana Bolaños MD Work Phone: Internal Medicine [place] Comment on above: Insurance Authorizat ion Start: 08-14-2024 End: 08-15-2024 Refill Ana Bolaños MD Work Phone: Internal Medicine [place] Comment on above: Med Change Request Start: 08-11-2024 End: 08-11-2024 ambulatory [facility] Facility:[facility] Start: 08-11-2024 End: 08-11-2024 Office [...] hypertension; Hypokalemia Start: 08-09-2024 End: 08-09-2024 ambulatory Josue Davies Facility:[facility] Start: 07-18-2024 End: 07-18-2024 Patient encounter procedure Luz Meeks PA-C Work Phone: Neurology Comment on above: Neuropathy (Primary Dx) Start: 07-18-2024 End: 07-18-2024 ambulatory [facility] Facility:[facility] Start: 07-16-2024 End: 07-17-2024 ambulatory Ana Bolaños MD Work Phone: Internal Medicine [place] Comment on above: Potassium Start: 06-26-2024 End: 06-26-2024 ambulatory Ana Bolaños MD Work Phone: Internal Medicine [place] Comment on above: Zepound Start: 06-26-2024 End: 06-26-2024 Telephone encounter Ana Bolaños MD Work Phone: Internal Medicine [place] Start: 06-02-2024 End: 06-02-2024 ambulatory Luz Meeks PA-C Work Phone: Neurology Comment on above: Feet Neuropathy - br eak through pain Start: 05-09-2024 End: 05-09-2024 Patient encounter procedure Ana Bolaños MD Work Phone: [facility] Start: 05-09-2024 End: 05-09-2024 Periodic preventive med est patient 40-64yrs Ana Bolaños MD Work Phone: Internal Medicine [place] Comment on above: Annual physical exam (Primary Dx); Screening for depression; Encounter for screening examination for other mental health and behavioral disorders; Encounter for immunization; Encounter for screening mammogram for breast cancer; Essential hypertension; Mixed hyperlipidemia; Hypoparathyroidism, unspecified hypoparathyroidism type (HCC); Sjogren syndrome with dental involvement (HCC) Start: 04-13-2024 Refill Fior Alvarez APRN .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 Work Phone: Internal Medicine [place] Comment on above: Refill Request Start: 04-12-2024 ambulatory Jacquie aquino ARMORED CAR 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.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 Work Phone: Internal Medicine [place] Comment on above: Zepbound next dose l evel Start: 04-05-2024 Telephone encounter Ana cuevas MD Work Phone: Internal Medicine [place] Comment on above: Insurance Authorizat ion Start: 04-03-2024 End: 04-03-2024 ambulatory Jacquie Clarke APRN.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 Work Phone: Internal Medicine [place] Comment on above: Class 2 obesity due to excess calories without serious comorbidity with body mass index (BMI) of 39.0 to 39.9 in adult (Primary Dx) Start: 04-03-2024 End: 04-03-2024 Telemedicine consultation with patient Jacquie Barb Fermin STANLEY.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 Work Phone: Internal Medicine [place] Start: 03-28-2024 End: 03-28-2024 Patient encounter procedure Luz Meeks PA-C Work Phone: Neurology Comment on above: Neuropathy (Primary Dx) Start: 03-03-2024 End: 03-03-2024 Patient encounter procedure Jacquie Clarke APRN.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 Work Phone: Internal Medicine [place] Comment on above: Class 2 obesity due to excess calories without serious comorbidity with body mass index (BMI) of 38.0 to 38.9 in adult (Primary Dx) Start: 02-04-2024 End: 02-04-2024 Patient encounter procedure Jacquie Clarke APRN.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 Work Phone: Internal Medicine [place] Comment on above: Class 2 obesity due to excess calories without serious comorbidity with body mass index (BMI) of 39.0 to 39.9 in adult (Primary Dx) Start: 01-29-2024 Refill Fior Alvarez APRN, .CNP Work Phone: Internal Medicine [place] Comment on above: Med Change Request Start: 01-18-2024 ambulatory Ana Perry Work Phone: Internal [facility] Start: 01-13-2024 ambulatory Fior Alvarez APRN, .CNP Work Phone: Internal Medicine [place] Comment on above: Neuropathy Start: 01-07-2024 End: 01-07-2024 Patient encounter procedure Fior Alvarez APRN.CNP Work Phone: Internal Medicine [place] Comment on above: Class 2 severe obesi ty with serious comorbidity and body mass index (BMI) of 39.0 to 39.9 in adult, unspecified obesity type (HCC) (Primary Dx); Obstructive sleep apnea syndrome; Insomnia, unspecified type; Acquired hypothyroidism; Bipolar I disorder, most recent episode depressed (HCC); Essential hypertension Start: 12-21-2023 ambulatory Ana Perry Work Phone: [facility] Start: 11-17-2023 Telephone encounter Fior Alvarez APRN.CNP Work Phone: Internal Medicine [place] Comment on above: clarify directions o n rx Medication Problem Start: 11-05-2023 Refill Fior Alvarez APRN, .CNP Work Phone: Internal Medicine [place] Comment on above: Refill Request Start: 09-02-2023 End: 09-02-2023 ambulatory GAVIN LAKESHIA [facility] Start: 09-02-2023 End: 09-02-2023 Office outpatient visit 15 minutes Gavin Moctezuma MD Work Phone: [facility] [place] Comment on above: REMIGIO on CPAP; Primary hypertension; Deficiency of multiple nutrient elements; Hyperlipidemia, unspecified hyperlipidemia type; Class 2 severe obesity due to excess calories with serious comorbidity and body mass index (BMI) of 36.0 to 36.9 in adult Start: 08-19-2023 End: 08-19-2023 Patient encounter procedure Fior Alvarez APRN.CNP Work Phone: Internal Medicine [place] Comment on above: Burning sensation of feet (Primary Dx) Start: 08-03-2023 ambulatory Ana Day D Work Phone: Internal Medicine [facility] [place] Start: 08-02-2023 ambulatory Fior Reddy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 Work Phone: Internal Medicine [place] Comment on above: Eletriptran HBr Start: 07-21-2023 ambulatory Ana Bolaños M D Work Phone: Internal Medicine [facility] Start: 05-28-2023 Refill Garret POLLOCK Work Phone: [facility] Start: 04-05-2023 End: 04-05-2023 ambulatory [facility] Start: 04-05-2023 End: 04-05-2023 Office outpatient visit 25 minutes Garret POLLOCK Work Phone: [facility] Comment on above: Primary hypertension (Primary Dx); REMIGIO on CPAP; Deficiency of multiple nutrient elements; Hyperlipidemia, unspecified hyperlipidemia type; Class 1 obesity due to excess calories with serious comorbidity and body mass index (BMI) of 33.0 to 33.9 in adult; High vitamin D level Start: 01-12-2023 End: 01-12-2023 ambulatory [facility] Work Phone: Start: 01-12-2023 End: 01-12-2023 Patient encounter procedure [facility] Start: 01-06-2023 End: 01-06-2023 Patient encounter procedure [facility] Start: 12-22-2022 Telephone encounter Erika Shah APRN.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 Work Phone: Neurology Comment on above: PAP Rx Faxed (DME: Charly JACOBSON ) Start: 12-21-2022 End: 12-21-2022 ambulatory Erika Shah APRN.CNP Work Phone: Neurology Comment on above: Obstructive sleep ap lakeshia syndrome (Primary Dx); Insomnia, unspecified type; Difficulty using biphasic positive airway pressure (BiPAP) machine Start: 12-21-2022 End: 12-21-2022 Telemedicine consultation with patient Erika Shah APRN.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 Work Phone: [facility] [place] Start: 12-04-2022 End: 12-04-2022 Patient encounter procedure Fior Alvarez APRNBarry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 Work Phone: Internal Medicine [place] Comment on above: Essential hypertensi on (Primary Dx); Acquired hypothyroidism; Migraine without aura and without status migrainosus, not intractable; Elevated fasting glucose; Bipolar I disorder, most recent episode depressed (HCC); Mixed hyperlipidemia Start: 12-02-2022 End: 12-02-2022 ambulatory [facility] Start: 12-02-2022 End: 12-02-2022 Office outpatient visit 25 minutes [place] Work Phone: [facility] [place] Comment on above: Primary hypertension (Primary Dx); REMIGIO on CPAP; Deficiency of multiple nutrient elements; Class 2 severe obesity due to excess calories with serious comorbidity and body mass index (BMI) of 35.0 to 35.9 in adult (HCC); High cholesterol Start: 11-13-2022 End: 11-13-2022 [facility] Work Phone: Start: 11-13-2022 End: 11-13-2022 Patient encounter procedure [facility] Start: 10-15-2022 Telephone encounter Ana cuevas MD Work Phone: Internal Medicine [place] Comment on above: Medication Problem Start: 10-10-2022 End: 10-10-2022 [facility] Work Phone: Start: 10-10-2022 End: 10-10-2022 Patient encounter procedure [facility] Start: 10-08-2022 End: [facility] Start: 10-08-2022 End: 10-08-2022 Postop follow up visit related to original px Gavin Moctezuma MD Work Phone: [facility] [place] Comment on above: Encounter for postop erative care (Primary Dx); Primary hypertension; Hyperlipidemia, unspecified hyperlipidemia type; Hypothyroidism, unspecified type; REMIGIO (obstructive sleep apnea); Class 2 obesity due to excess calories with body mass index (BMI) of 38.0 to 38.9 in adult, unspecified whether serious comorbidity present; Deficiency of multiple nutrient elements Start: 10-01-2022 Telephone encounter Marilou leone RD Work Phone: [facility] [place] Comment on above: Abnormal Lab (Low po tassium; Elevated Vitamin B12) Start: 09-30-2022 End: 09-30-2022 ambulatory [facility] Work Phone: Start: 09-30-2022 End: 09-30-2022 Patient encounter procedure [facility] Start: 09-29-2022 Telephone encounter Ana cuevas MD Work Phone: Internal Medicine [place] Comment on above: Patient Update Start: 09-29-2022 End: 09-29-2022 [facility] Work Phone: Start: 09-29-2022 End: 09-29-2022 Patient encounter procedure [facility] Start: 09-21-2022 End: 09-21-2022 ambulatory Alexander Quinteros MD Work Phone: Neurology Comment on above: Obstructive sleep ap lakeshia (adult) (pediatric) (Primary Dx); Insomnia, unspecified type; Class 3 severe obesity with body mass index (BMI) of 40.0 to 44.9 in adult, unspecified obesity type, unspecified whether serious comorbidity present (HCC) Start: 09-21-2022 End: 09-21-2022 Telemedicine consultation with patient Alexander Quinteros Jr., MD Work Phone: [facility] [place] Start: 09-10-2022 End: 09-10-2022 [facility] Start: 09-10-2022 End: 09-10-2022 Postop follow up visit related to original px Garret POLLOCK Work Phone: [facility] [place] Comment on above: Encounter for postop erative care (Primary Dx); GERD without esophagitis; Deficiency of multiple nutrient elements; REMIGIO (obstructive sleep apnea); Hyperlipidemia, unspecified hyperlipidemia type; Primary hypertension; Morbid obesity with BMI of 40.0-44.9, adult ([facility]) Start: 08-28-2022 End: 08-28-2022 Patient encounter procedure Fior Antonio ANDERSON Work Phone: [facility] Comment on above: Essential hypertensi on (Primary Dx); Prediabetes; Mixed hyperlipidemia; Acquired hypothyroidism; Bipolar I disorder, most recent episode depressed ([facility]) Start: 08-13-2022 ambulatory Ana Bolaños M Vicky Work Phone: Internal [facility] Comment on above: Encounter for other preprocedural examination (Primary Dx) Start: 08-13-2022 Patient encounter status Manju POLLOCK Work Phone: [facility] [address] Start: 08-11-2022 ambulatory Ana [employer] Work Phone: [facility] Start: 06-26-2022 End: 06-26-2022 ambulatory [facility] Work Phone: Start: 06-26-2022 End: 06-26-2022 Patient encounter procedure [facility] Start: 04-09-2022 Telephone encounter Alexander Quinteros [...] obesity type, unspecified whether serious comorbidity present ([facility]) Start: 04-04-2022 End: 04-04-2022 Patient encounter procedure [facility] , Specimen Start: 03-20-2022 End: 03-20-2022 Subsequent hospital visit by physician Shalonda Bar MD Work Phone: [facility] Start: 03-19-2022 End: 03-19-2022 [facility] Start: 03-11-2022 Telephone encounter Alexander Quinteros MD Work Phone: Neurology Comment on above: DME company Start: 02-24-2022 ambulatory Ana Perry Work Phone: Internal Medicine [facility] Start: 02-20-2022 End: 02-20-2022 Subsequent hospital visit by physician Shalonda Bar MD [facility] Start: 02-20-2022 End: 02-20-2022 [facility] Start: 02-17-2022 Telephone encounter Alexander Quinteros MD Work Phone: Neurology Comment on above: Orders; CPAP Supplie s Start: 02-06-2022 ambulatory Alexander walker Jr., MD Work Phone: [facility] [place] Start: 02-06-2022 Follow-up encounter Alexander Quinteros MD Work Phone: Neurology Comment on above: Visit Follow Up Ques tion Start: 02-04-2022 Telephone encounter Alexander Quinteros MD Work Phone: Neurology Comment on above: Instrumentation And Controls Technician - O ther (Faxed paperwork) Start: 01-26-2022 Telephone encounter Alexander Quinteros MD Work Phone: Neurology Comment on above: Orders Start: 01-23-2022 Telephone encounter Alexander Quinteros MD Work Phone: Neurology Comment on above: PSG results Start: 01-23-2022 End: 01-23-2022 Subsequent hospital visit by physician Shalonda Bar MD [facility] Start: 01-14-2022 End: 01-14-2022 [facility] Start: 01-09-2022 Refill Ana Perry Work Phone: Internal Medicine [place] Comment on above: Refill Request Start: 12-26-2021 Telephone encounter Alexander Quinteros MD Work Phone: Family Medicine [place] Comment on above: Insurance Authorizat ion (sleep study) Start: 12-26-2021 End: 12-26-2021 Subsequent hospital visit by physician Shalonda Bar MD Work Phone: [facility] Start: 12-17-2021 Chart abstracting Alexander shrama MD Work Phone: Neurology Start: 12-15-2021 ambulatory Alexander walker MD Work Phone: Neurology Comment on above: Test Result Question Start: 12-12-2021 End: 12-12-2021 Patient encounter procedure [facility] Start: 12-04-2021 End: 12-04-2021 Patient encounter procedure [facility] Start: 11-18-2021 End: 11-18-2021 Subsequent hospital visit by physician Gavin Moctezuma MD Work Phone: [facility] Comment on above: Postoperative [...] by physician Shalonda Bar MD Work Phone: [facility] Start: 11-05-2021 Telephone encounter Ana cuevas MD Work Phone: [facility] Comment on above: Patient Update Start: 11-01-2021 Patient encounter procedure [facility] Start: 10-09-2021 End: 10-09-2021 Subsequent hospital visit by physician Gavin [facility]uma [facility] Start: 09-15-2021 End: 09-15-2021 Subsequent hospital visit by physician Garret POLLOCK [facility] Start: 08-23-2021 Patient encounter procedure [facility] Start: 10-13-2019 End: 10-13-2019 Subsequent hospital visit by physician Rubin Washington MD Work Phone: [facility] Surgery Comment on above: Post-op pain (Primar y Dx); Subcutaneous mass of right thumb Procedures Date Procedure Procedure Detail Performing Clinician Start: 04-10-2025 Urnls dip stick/tabl et rgnt auto w/o microscopy Angelique GLEZC Work Phone: Start: 03-07-2025 Urnls dip stick/tabl et rgnt auto w/o microscopy Jacquie Clarke ARMORED CAR 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.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 Work Phone: Start: 02-09-2025 Nerve conduction memo dies 5-6 studies Lucille GLEZC Work Phone: Start: 02-06-2025 Us pelvic nonobstetr ic image dcmtn limited/f/u Foir Alvarez ARMORED CAR 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.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 Work Phone: Start: 01-26-2025 Ct abdomen & pelvis w/contrast material Fior Alvarez ARMORED CAR 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.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 Work Phone: Start: 01-25-2025 Urnls dip stick/tabl et rgnt auto w/o microscopy Fior Alvarez ARMORED CAR 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.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 Work Phone: Start: 05-09-2024 Adult depression scr eening assessment Ana Bolaños MD Work Phone: Start: 04-27-2024 Lipid 1996 panel - S dontae or Plasma Ana Bolaños MD Work Phone: Start: 01-19-2024 Lipid 1996 panel - S dontae or Plasma Fior Alvarez ARMORED CAR 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.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 Work Phone: Start: 03-19-2023 Lipid 1996 panel - S dontae or Plasma Ana Bolaños MD Work Phone: Start: 12-04-2022 Hemoglobin A1c/Hemoglobin.total in Blood Fior Alvarez ARMORED CAR 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.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 Work Phone: Start: 09-30-2022 Dual energy X-ray [...] Work Phone: Start: 11-14-2021 Lipid panel Garret Alexander pke PA Work Phone: Start: 11-14-2021 Ecg routine ecg w/le ast 12 lds w/i&r Ramos Hayden ARMORED CAR 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 - 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 Work Phone: Start: 11-14-2021 Lipid 1996 panel - S dontae or Plasma Marilou Clifton RD Work Phone: Start: 08-23-2021 Screening mammography Start: 04-17-2021 Colonoscopy Alexander sharma Jr., MD Work Phone: Start: 08-02-2020 Mammography Alexander sharma Jr., MD Work Phone: Start: 10-13-2019 Urine test visual color cmprsn chris Walters MD Work Phone: Plan of Treatment Date Care Activity Detail Author Start: 04-17-2031 Colonoscopy COLONOSCOPY [facility] Start: 04-17-2031 COLORECTAL CANCER SCREENING COLORECTAL CANCER SCREENING [facility] Start: 04-17-2031 Screening for malign ant neoplasm of colon [facility] Start: 04-27-2029 Lipid panel Lipid Screening [facility] Start: 01-18-2029 Lipid panel Lipid Screening [facility] Start: 03-19-2028 Lipid 1996 panel - S dontae or Plasma Lipid Screening [facility] Start: 03-19-2028 Lipid panel Lipid Screening [facility] Start: 2027 RSV Immunization age d 60 or older (1 - 1-dose 60+ series) RSV Immunization aged 60 or older (1 - 1-dose 60+ series) [facility] Start: 08-17-2027 LIPID SCREEN LIPID SCREEN [facility] Start: 08-11-2027 Diabetes Screening Diabetes Screenin [facility] Start: 07-03-2027 DTaP/Tdap/Td vaccine (3 - Td or Tdap) DTaP/Tdap/Td vaccine (3 - Td or Tdap) [facility] Start: 07-03-2027 DTaP/Tdap/Td vaccine (3 - Td) DTaP/Tdap/Td vaccine (3 - Td) [facility] Work Phone: Start: 07-03-2027 DTaP/Tdap/Td Vaccine s (3 - Td or Tdap) DTaP/Tdap/Td Vaccines (3 - Td or Tdap) [facility] Start: 07-03-2027 Urine microalbumin profile DTaP,Tdap,Td Vaccine (3 - Td or Tdap) [facility] Start: 06-16-2027 DTaP/Tdap/Td Vaccine s (2 - Tdap) DTaP/Tdap/Td Vaccines (2 - Tdap) [facility] Start: 06-16-2027 Urine microalbumin profile [facility] Start: 04-27-2027 Diabetes Screening Diabetes Screenin g [facility] Start: 01-18-2027 Diabetes Screening Diabetes Screenin g [facility] Start: 11-14-2026 Lipid panel Lipid Panel [facility] Start: 09-04-2026 LIPID SCREEN LIPID SCREEN [facility] Start: 05-11-2026 Annual PCP Team Cylinder Devalver lee Disease Visit Annual PCP Team Chronic Disease Visit [facility] Start: 05-02-2026 Annual PCP Team Cylinder Devalver lee Disease Visit Annual PCP Team Chronic Disease Visit [facility] Start: 04-10-2026 Annual PCP Team Cylinder Devalver lee Disease Visit Annual PCP Team Chronic Disease Visit [facility] Start: 03-30-2026 Annual PCP Team Cylinder Devalver lee Disease Visit Annual PCP Team Chronic Disease Visit [facility] Start: 03-30-2026 Covid-19 Vaccine (8 - Pfizer risk ) Covid-19 Vaccine (8 - Pfizer risk ) [facility] Comment on above: Postponed from 11/25 (Declined at this time) Start: 03-30-2026 Hepatitis B Vaccine (1 of 3 - 19+ 3-dose series) Hepatitis B Vaccine (1 of 3 - 19+ 3-dose series) [facility] Comment on above: Postponed from 12/05 (Declined at this time) Start: 03-19-2026 Diabetes Screening Diabetes Screenin g [facility] Start: 03-12-2026 Annual PCP Team Cylinder Devalver lee Disease Visit Annual PCP Team Chronic Disease Visit [facility] Start: 03-07-2026 Annual PCP Team Cylinder Devalver lee Disease Visit Annual PCP Team Chronic Disease Visit [facility] Start: 03-02-2026 Hepatitis B screening Urine Albumin:Creatinine Ratio [facility] Start: 03-02-2026 Hepatitis B surface antibody level LDL Cholesterol [facility] Start: 02-08-2026 BP Controlled (<130/80) BP Controlle d (<130/80) [facility] Start: 02-08-2026 Screening for malign ant neoplasm of cervix Cervical Cancer Screening [facility] Start: 01-25-2026 Annual PCP Team Cylinder Devalver lee Disease Visit Annual PCP Team Chronic Disease Visit [facility] Start: 12-04-2025 DIABETES SCREEN DIABETES SCREEN [facility] Start: 11-10-2025 Annual PCP Team Cylinder Devalver lee Disease Visit Annual PCP Team Chronic Disease Visit [facility] Start: 11-10-2025 Diabetic foot examination Diabetic F oot Exam [facility] Start: 11-10-2025 Hepatitis B screening Urine Albumin:Creatinine Ratio [facility] Start: 10-20-2025 Screening for malign ant neoplasm of breast Mammogram Screening [facility] Start: 09-10-2025 End: 09-10-2025 Patient encounter procedure 09/10/2025 7:00 AM EST Office Visit OB/Gynecology [address] [place] [address] Katarina Guillory, LIZETH.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 [address] [place] [address] annual OB/Gynecology Comment on above: annual Start: 09-07-2025 End: 09-07-2025 Patient encounter procedure 09/07/2025 7:00 AM EST Office Visit OB/Gynecology [address] [place] [address] Katarina Guillory, LIZETH.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 [address] [place] [address] (Fax) Annual OB/Gynecology Comment on above: Annual Start: 09-05-2025 BP Controlled (<130/80) BP Controlle d (<130/80) [facility] Start: 08-17-2025 DIABETES SCREEN DIABETES SCREEN [facility] Start: 08-11-2025 Annual PCP Team Cylinder Devalver lee Disease Visit Annual PCP Team Chronic Disease Visit [facility] Start: 08-10-2025 End: 08-10-2025 Patient encounter procedure 08/10/2025 3:00 PM EST Office Visit [facility] [place] [address] [place] [address] Ana Bolaños MD [address] [place] [address] 3 month follow up [facility] [place] Comment on above: 3 month follow up Start: 07-25-2025 Hemoglobin A1c measurement HbA1C [facility] Start: 07-10-2025 End: 07-10-2025 Patient encounter procedure 07/10/2025 3:00 PM EDT Office Visit Neurology [address] [place] [address] Luz Meeks PA-C [address] [place] [address] 3m f/up Neurology Comment on above: 3m f/up Start: 07-04-2025 End: 07-04-2025 Patient encounter procedure 07/04/2025 4:00 PM EDT Office Visit Neurology [address] [place], [place] [id number] Luz Meeks PA-C [address] [place], [place] [address] 3m f/up Neurology Comment on above: 3m f/up Start: 06-12-2025 End: 09-11-2025 Basic metabolic 2000 panel - Serum or Plasma BASIC METABOLIC PANEL Lab Routine Hypokalemia Expected: 06/12/2025, Expires: 09/11/2025 [facility] Work Phone: Comment on above: Expected: 06/12/2025 , Expires: 09/11/2025 Start: 06-11-2025 End: 09-10-2025 Basic metabolic 2000 panel - Serum or Plasma BASIC METABOLIC PANEL Lab Routine Essential hypertension Hypokalemia Expected: 06/11/2025 (Approximate), Expires: 09/10/2025 [facility] Work Phone: Comment on above: Expected: 06/11/2025 (Approximate), Expires: 09/10/2025 Start: 06-11-2025 End: 06-11-2025 Patient encounter procedure 06/11/2025 7:00 AM EDT Office Visit [facility] [place] [address] [place], [place] [id number] Fior Alvarez APRN.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 [address] [place], [place] [id number] 3 mo follow up [facility] [place] Comment on above: 3 mo follow up Start: 05-14-2025 Influenza vaccination Influenza Vacc ine (#1) [facility] Start: 05-11-2025 End: 05-11-2025 Patient encounter procedure 05/11/2025 7:00 AM EDT Office Visit [facility] [place] [address] [place], [place] [id number] Fior Alvarez APRN.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 [address] [place], [place] [id number] Swelling/spironolactone [facility] [place] Comment on above: Swelling/spironolact one Start: 05-10-2025 End: 05-10-2025 Patient encounter procedure 05/10/2025 7:40 AM EDT Office Visit [facility] [place] [address] [place] [address] Fior Alvarez APRN.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 [address] [place] [address] 1 week BP follow up [facility] [place] Comment on above: 1 week BP follow up Start: 05-09-2025 Annual PCP Team Cylinder Devalver lee Disease Visit Annual PCP Team Chronic Disease Visit [facility] Start: 05-09-2025 Anxiety Screening Anxiety Screening [facility] Start: 05-09-2025 BP Controlled (<130/80) BP Controlle d (<130/80) [facility] Start: 05-09-2025 Depression Screening Depression Scre ening [facility] Start: 05-09-2025 Pneumococcal vaccination Pneum ococcal Vaccine (3 of 3 - PCV) [facility] Start: 05-09-2025 Pneumococcal Vaccine : 50+ (3 of 3 - PCV) Pneumococcal Vaccine: 50+ (3 of 3 - PCV) [facility] Start: 05-09-2025 End: 05-09-2025 Patient encounter procedure 05/09/2025 7:00 AM EDT Office Visit [facility] [place] [address] [place] [address] Fior Alvarez APRN.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 [address] [place] [address] 1 week BP follow up [facility] [place] Comment on above: 1 week BP follow up Start: 05-07-2025 End: 05-07-2025 Patient encounter procedure 05/07/2025 4:20 PM EDT Office Visit OB/Gynecology [address] [address] Ash Chowdhury MD [address] [place] [address] POST OP OB/Gynecology Comment on above: POST OP Start: 05-07-2025 End: 05-07-2025 ambulatory 05/07/2025 3:30 PM EDT Results Only [place] [facility] Laboratory [address] [place] [address] [place] [facility] Start: 05-02-2025 End: 05-02-2025 Patient encounter procedure 05/02/2025 3:40 PM EDT Office Visit [facility] [place] [address] [place] [address] Fior Alvarez APRN.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 [address] [place] [address] Spironolactone, swelling, and BP [facility] [place] Comment on above: Spironolactone, swel ling, and BP Start: 05-02-2025 End: 08-01-2025 Basic metabolic 2000 panel - Serum or Plasma BASIC METABOLIC PANEL Lab Routine Hypokalemia Expected: 05/02/2025, Expires: 08/01/2025 [facility] Work Phone: Comment on above: Expected: 05/02/2025 , Expires: 08/01/2025 Start: 04-27-2025 Hepatitis B surface antibody level LDL Cholesterol [facility] Start: 04-27-2025 End: 04-27-2025 ambulatory 04/27/2025 7:15 AM EDT Results Only [place] [facility] Draw Station [address] [place] [address] [facility] Draw Station Start: 04-18-2025 End: 07-18-2025 Basic metabolic 2000 panel - Serum or Plasma BASIC METABOLIC PANEL Lab Routine Medication management Expected: 04/18/2025, Expires: 07/18/2025 [facility] Work Phone: Comment on above: Expected: 04/18/2025 , Expires: 07/18/2025 Start: 04-09-2025 End: 04-09-2025 Patient encounter procedure 04/09/2025 9:20 AM EDT Office Visit OB/Gynecology [address] [place] [address] Ash Chowdhury MD [address] [place] [address] surgery 04/20 @[facility] OB/Gynecology Comment on above: surgery 04/20 @[facility] Start: 04-09-2025 End: 04-09-2025 ambulatory 04/09/2025 8:30 AM EDT Results Only [place] [facility] Laboratory [address] [place] [address] [place] [facility] Laboratory Start: 04-05-2025 End: 07-05-2025 Basic metabolic 2000 panel - Serum or Plasma BASIC METABOLIC PANEL Lab Routine Hypokalemia Expected: 04/05/2025, Expires: 07/05/2025 [facility] Work Phone: Comment on above: Expected: 04/05/2025 , Expires: 07/05/2025 Start: 04-03-2025 Annual PCP Team Cylinder Devalver lee Disease Visit Annual PCP Team Chronic Disease Visit [facility] Start: 03-30-2025 End: 06-29-2025 Basic metabolic 2000 panel - Serum or Plasma [facility] Work Phone: Comment on above: Expected: 03/30/2025 , Expires: 06/29/2025 Start: 03-30-2025 End: 03-30-2025 Patient encounter procedure 03/30/2025 7:00 AM EDT Office Visit [facility] [place] [address] [place] [address] Fior Alvarez APRN.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 [address] [place] [address] PreOp Clearance for Surgery 04/20/2025 [facility]--hysteroscopy D/C [facility] [place] Comment on above: PreOp Clearance for Surgery 04/20/2025 [facility]--hysteroscopy D/C Start: 03-28-2025 End: 03-28-2025 Patient encounter procedure 03/28/2025 4:00 PM EDT Office Visit Neurology [address] [place] [address] Luz Meeks PA-C [address] [place] [address] Possible MRI Neurology Comment on above: Possible MRI Start: 03-22-2025 End: 03-22-2025 ambulatory 03/22/2025 11:30 AM EDT [facility] OB/Gynecology [address] [address] Ash Chowdhury MD [address] [facility] [place] [address] discuss hysteroscopy D+C OB/Gynecology Comment on above: discuss hysteroscopy D+C Start: 03-12-2025 End: 03-12-2025 Patient encounter procedure 03/12/2025 8:40 AM EDT Office Visit [facility] [place] [address] [place] [address] Ana Bolaños MD [address] [place] [address] 4 month f/u [facility] [place] Comment on above: 4 month f/u Start: 03-03-2025 Annual PCP Team Cylinder Devalver lee Disease Visit Annual PCP Team Chronic Disease Visit [facility] Start: 03-02-2025 End: 03-02-2025 ambulatory 03/02/2025 8:30 AM EDT Results Only [facility] Draw Station [address] [place] [address] [facility] Draw Station Start: 02-27-2025 End: 05-29-2025 Lipid 1996 panel - Serum or Plasma LIPID PANEL, FASTING Lab Routine Hyperlipidemia, unspecified hyperlipidemia type Expected: 02/27/2025, Expires: 05/29/2025 [facility] Comment on above: Expected: 02/27/2025 , Expires: 05/29/2025 Start: 02-27-2025 End: 05-29-2025 Microalbumin/Creatinine [Mass Ratio] in Urine ALBUMIN/CREATININE RATIO, URINE Lab Routine Type 2 diabetes mellitus (HCC) Expected: 02/27/2025, Expires: 05/29/2025 [facility] Work Phone: Comment on above: Expected: 02/27/2025 , Expires: 05/29/2025 Start: 02-27-2025 End: 05-29-2025 Thyrotropin [Units/volume] in Serum or Plasma THYROID STIMULATING HORMONE Lab Routine Acquired hypothyroidism Expected: 02/27/2025, Expires: 05/29/2025 [facility] Comment on above: Expected: 02/27/2025 , Expires: 05/29/2025 Start: 02-09-2025 End: 02-09-2025 ambulatory Neurology Comment on above: Paresthesia of both feet [R20.2] R RISHABH KEATING Start: 02-08-2025 End: 02-08-2025 Patient encounter procedure 02/08/2025 7:45 AM EDT Office Visit OB/Gynecology [address] [place] [address] Richie Newman APRN.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 [address] [place] [address] fibroid cyst found on CT / Requesting VV OB/Gynecology Comment on above: fibroid cyst found o n CT / Requesting VV Start: 02-06-2025 End: 02-06-2025 Patient encounter procedure 02/06/2025 10:00 AM EDT Appointment Radiology [address] [address] Dx: Uterine cyst [N85.8]; Abnormal CT scan [R93.89] Radiology Comment on above: Dx: Uterine cyst [N8 5.8]; Abnormal CT scan [R93.89] Start: 02-03-2025 Annual PCP Team Cylinder Devalver lee Disease Visit Annual PCP Team Chronic Disease Visit [facility] Start: 02-01-2025 End: 02-01-2025 Patient encounter procedure 02/01/2025 8:20 AM EDT Office Visit [facility] [place] [address] [place] [address] Fior Alvarez APRN.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 [address] [place] [address] 1 wk follow up [facility] [place] Comment on above: 1 wk follow up Start: 01-26-2025 Subsequent hospital visit by physician 01/26/2025 8:00 AM EDT Hospital Encounter [facility] [address] [place] [address] Right lower quadrant abdominal pain [R10.31] [facility] Comment on above: Right lower quadrant abdominal pain [R10.31] Start: 01-26-2025 End: 01-26-2025 Patient encounter procedure 01/26/2025 7:00 AM EDT Appointment [facility] [address] [place] [address] [facility] Comment on above: CCN APPROVED Start: 01-22-2025 End: 04-23-2025 Cobalamin (Vitamin B12) [Mass/volume] in Serum or Plasma [facility] Work Phone: Comment on above: Expected: 01/22/2025 , Expires: 04/23/2025 Start: 01-22-2025 End: 04-23-2025 Folate [Mass/volume] in Serum or Plasma [facility] Comment on above: Expected: 01/22/2025 , Expires: 04/23/2025 Start: 01-22-2025 End: 04-23-2025 Hemoglobin A1c in Blood [facility] Comment on above: Expected: 01/22/2025 , Expires: 04/23/2025 Start: 01-22-2025 End: 04-23-2025 PROT ELECT SERUM WITH MICA AND INTERP [facility] Comment on above: Expected: 01/22/2025 , Expires: 04/23/2025 Start: 01-22-2025 End: 04-23-2025 Pyridoxine [Mass/volume] in Serum or Plasma [facility] Comment on above: Expected: 01/22/2025 , Expires: 04/23/2025 Start: 01-22-2025 End: 04-23-2025 VITAMIN B1 (THIAMINE), WHOLE BLOOD [facility] Comment on above: Expected: 01/22/2025 , Expires: 04/23/2025 Start: 01-17-2025 End: 01-17-2025 Patient encounter procedure Neurology Comment on above: follow up 6 months Neuropathy f/u 6 mon ths- [facility] 07/18/24 increase gabapentin 400mg TID Start: 01-06-2025 Annual PCP Team Cylinder Devalver lee Disease Visit Annual PCP Team Chronic Disease Visit [facility] Start: 01-06-2025 BP Controlled (<130/80) BP Controlle d (<130/80) [facility] Start: 11-25-2024 Covid-19 Vaccine (8 - Pfizer risk ) Covid-19 Vaccine (8 - Pfizer risk ) [facility] Start: 11-20-2024 End: 11-20-2024 Patient encounter procedure 11/20/2024 8:40 AM EDT Office Visit [facility] [place] [address] [place] [id number] Ana Bolaños MD [address] [facility] [place] [address] 3 month follow up [facility] [place] Comment on above: 3 month follow up Start: 11-14-2024 DIABETES SCREEN DIABETES SCREEN [facility] Start: 11-10-2024 End: 02-09-2025 Microalbumin/Creatinine [Mass Ratio] in Urine [facility] Work Phone: Comment on above: Expected: 11/10/2024 , Expires: 02/09/2025 Start: 11-10-2024 End: 11-10-2024 Patient encounter procedure 11/10/2024 8:00 AM EST Office Visit [facility] [place] [address] [place] [address] Ana Bolaoñs MD [address] [facility] [place] [address] 3 month follow up [facility] [place] Comment on above: 3 month follow up Start: 10-28-2024 Hemoglobin A1c measurement HbA1C [facility] Start: 10-20-2024 End: 10-20-2024 Patient encounter procedure 10/20/2024 7:10 AM EST Appointment Mammogram [address] [place] [address] Encounter for screening mammogram for breast cancer [Z12.31] Mammogram Comment on above: Encounter for screen ing mammogram for breast cancer [Z12.31] Start: 10-08-2024 Screening for malign ant neoplasm of breast Mammogram Screening [facility] Start: 09-29-2024 Annual PCP Team Cylinder Devalver lee Disease Visit Annual PCP Team Chronic Disease Visit [facility] Start: 09-05-2024 End: 09-05-2024 Patient encounter procedure 09/05/2024 7:00 AM EST Office Visit OB/Gynecology [address] [place] [address] Katarina Guillory APRN.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 [address] [place] [address] ANNUAL OB/Gynecology Comment on above: ANNUAL Start: 08-31-2024 End: 08-31-2024 Patient encounter procedure 08/31/2024 7:00 AM EST Office Visit OB/Gynecology [address] [place] [address] Katarina Guillory APRN.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 [address] [place] [address] ANNUAL OB/Gynecology Comment on above: ANNUAL Start: 08-19-2024 Annual PCP Team Cylinder Devalver lee Disease Visit Annual PCP Team Chronic Disease Visit [facility] Start: 08-19-2024 Diabetic foot examination Diabetic F oot Exam [facility] Start: 08-11-2024 End: 11-10-2024 Basic metabolic 2000 panel - Serum or Plasma [facility] Work Phone: Comment on above: Expected: 08/11/2024 , Expires: 11/10/2024 Start: 08-11-2024 End: 08-11-2024 Patient encounter procedure 08/11/2024 9:00 AM EST Office Visit [facility] [place] [address] [place] [address] Ana Bolaños MD [address] [place] [address] 3 month follow up [facility] [place] Comment on above: 3 month follow up Start: 08-02-2024 Annual PCP Team Cylinder Devalver lee Disease Visit Annual PCP Team Chronic Disease Visit [facility] Start: 07-23-2024 Covid-19 Vaccine () Covid-19 Vaccine () [facility] Start: 07-18-2024 End: 07-18-2024 Patient encounter procedure 07/18/2024 4:15 PM EST Office Visit Neurology [address] [place] [address] Luz Meeks PA-C [address] [place] [address] 3 month follow up Neurology Comment on above: 3 month follow up Start: 07-05-2024 End: 07-05-2024 Patient encounter procedure 07/05/2024 4:00 PM EDT Office Visit Neurology [address] [place] [address] Luz Meeks PA-C [address] [place] [address] 3 month follow up Neurology Comment on above: 3 month follow up Start: 06-15-2024 HPV TESTING HPV TESTING [facility] Start: 06-15-2024 PAP TESTING PAP TESTING [facility] Start: 06-15-2024 Screening for malign ant neoplasm of cervix [facility] Start: 05-14-2024 Covid-19 Vaccine ( season) Covid-19 Vaccine () [facility] Start: 05-14-2024 Covid-19 Vaccine () Covid-19 Vaccine () [facility] Start: 05-14-2024 Influenza vaccination Influenza Vacc ine (#1) [facility] Start: 05-08-2024 End: 05-08-2024 Patient encounter procedure 05/08/2024 7:20 AM EDT Office Visit [facility] [place] [address] [place] [address] Fior Alvarez APRN.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 [address] [facility] [place] [address] 2 month follow up [facility] [place] Comment on above: 2 month follow up Start: 05-05-2024 End: 05-05-2024 Patient encounter procedure 05/05/2024 7:20 AM EDT Office Visit [facility] [place] [address] [place] [address] Fior Alvarez APRN.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 [address] [place] [address] 2 month follow up [facility] [place] Comment on above: 2 month follow up Start: 03-28-2024 End: 03-28-2024 Patient encounter procedure 03/28/2024 7:00 AM EDT Office Visit Neurology [address] [facility] [place] [address] Luz Meeks PA-C [address] [place] [address] Neuropathy of feet Neurology Comment on above: Neuropathy of feet Start: 03-08-2024 Annual PCP Team Cylinder Devalver lee Disease Visit Annual PCP Team Chronic Disease Visit [facility] Start: 03-03-2024 End: 09-02-2024 25-hydroxyvitamin D3 [Mass/volume] in Serum or Plasma Vitamin D Deficiency Screening (Vit D 25) Lab Routine REMIGIO on CPAP Primary hypertension Deficiency of multiple nutrient elements Hyperlipidemia, unspecified hyperlipidemia type Class 2 severe obesity due to excess calories with serious comorbidity and body mass index (BMI) of 36.0 to 36.9 in adult Expected: 03/03/2024 (Approximate), Expires: 09/02/2024 [employer] Comment on above: Expected: 03/03/2024 (Approximate), Expires: 09/02/2024 Start: 03-03-2024 End: 09-02-2024 CBC panel - Blood by Automated count CBC Lab Routine REMIGIO on CPAP Primary hypertension Deficiency of multiple nutrient elements Hyperlipidemia, unspecified hyperlipidemia type Class 2 severe obesity due to excess calories with serious comorbidity and body mass index (BMI) of 36.0 to 36.9 in adult Expected: 03/03/2024 (Approximate), Expires: 09/02/2024 [employer] Comment on above: Expected: 03/03/2024 (Approximate), Expires: [...] in adult Expected: 03/03/2024 (Approximate), Expires: 09/02/2024 [employer] Comment on above: Expected: 03/03/2024 (Approximate), Expires: [...] in adult Expected: 03/03/2024 (Approximate), Expires: 09/02/2024 [employer] Comment on above: Expected: 03/03/2024 (Approximate), Expires: 09/02/2024 Start: 03-03-2024 End: 09-02-2024 Ferritin [Mass/volume] in Serum or Plasma Ferritin Lab Routine REMIGIO on CPAP Primary hypertension Deficiency of multiple nutrient elements Hyperlipidemia, unspecified hyperlipidemia type Class 2 severe obesity due to excess calories with serious comorbidity and body mass index (BMI) of 36.0 to 36.9 in adult Expected: 03/03/2024 (Approximate), Expires: 09/02/2024 [employer] Comment on above: Expected: 03/03/2024 (Approximate), Expires: 09/02/2024 Start: 03-03-2024 End: 09-02-2024 Folate [Mass/volume] in Serum or Plasma Folate Lab Routine REMIGIO on CPAP Primary hypertension Deficiency of multiple nutrient elements Hyperlipidemia, unspecified hyperlipidemia type Class 2 severe obesity due to excess calories with serious comorbidity and body mass index (BMI) of 36.0 to 36.9 in adult Expected: 03/03/2024 (Approximate), Expires: 09/02/2024 [employer] Comment on above: Expected: 03/03/2024 (Approximate), Expires: [...] in adult Expected: 03/03/2024 (Approximate), Expires: 09/02/2024 [employer] Comment on above: Expected: 03/03/2024 (Approximate), Expires: [...] in adult Expected: 03/03/2024 (Approximate), Expires: 09/02/2024 [employer] Comment on above: Expected: 03/03/2024 (Approximate), Expires: 09/02/2024 Start: 03-03-2024 End: 09-02-2024 Magnesium [Mass/volume] in Serum or Plasma Magnesium Lab Routine REMIGIO on CPAP Primary hypertension Deficiency of multiple nutrient elements Hyperlipidemia, unspecified hyperlipidemia type Class 2 severe obesity due to excess calories with serious comorbidity and body mass index (BMI) of 36.0 to 36.9 in adult Expected: 03/03/2024 (Approximate), Expires: 09/02/2024 [employer] Comment on above: Expected: 03/03/2024 (Approximate), Expires: 09/02/2024 Start: 03-03-2024 End: 09-02-2024 Vitamin B1, whole blood Vitamin B1, whole blood Lab Routine REMIGIO on CPAP Primary hypertension Deficiency of multiple nutrient elements Hyperlipidemia, unspecified hyperlipidemia type Class 2 severe obesity due to excess calories with serious comorbidity and body mass index (BMI) of 36.0 to 36.9 in adult Expected: 03/03/2024 (Approximate), Expires: 09/02/2024 [facility] Comment on above: Expected: 03/03/2024 (Approximate), Expires: 09/02/2024 Start: 03-03-2024 End: 09-02-2024 Zinc Zinc Lab Routine REMIGIO on CPAP Primary hypertension Deficiency of multiple nutrient elements Hyperlipidemia, unspecified hyperlipidemia type Class 2 severe obesity due to excess calories with serious comorbidity and body mass index (BMI) of 36.0 to 36.9 in adult Expected: 03/03/2024 (Approximate), Expires: 09/02/2024 [facility] Work Phone: Comment on above: Expected: 03/03/2024 (Approximate), Expires: 09/02/2024 Start: 03-03-2024 End: 03-03-2024 Patient encounter procedure [facility] Comment on above: 1 month follow up Start: 02-04-2024 End: 02-04-2024 Patient encounter procedure 02/04/2024 7:00 AM EDT Office Visit [facility] [address] [place] [address] Jacquie Clarke, ARMORED CAR 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.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 [address] [place] [address] 4 week follow up [facility] Comment on above: 4 week follow up Start: 12-21-2023 End: 03-21-2024 Thyrotropin [Units/volume] in Serum or Plasma TSH BLD Lab Routine Acquired hypothyroidism Expected: 12/21/2023, Expires: 03/21/2024 [facility] Work Phone: Comment on above: Expected: 12/21/2023 , Expires: 03/21/2024 Start: 12-05-2023 ANNUAL PCP TEAM LEATHER PARTS MATCHER LEE DISEASE VISIT ANNUAL PCP TEAM CHRONIC DISEASE VISIT [facility] Start: 12-05-2023 BP CONTROLLED (<130/80) BP CONTROLLE D (<130/80) [facility] Start: 12-05-2023 Diabetes mellitus screening Diabetes Screening [facility] Start: 12-04-2023 Covid-19 Vaccine ( season) Covid-19 Vaccine ( season) [facility] Start: 10-06-2023 End: 04-05-2024 25-hydroxyvitamin D3 [Mass/volume] in Serum or Plasma Vitamin D Deficiency Screening (Vit D 25) Lab Routine REMIGIO on CPAP Primary hypertension Deficiency of multiple nutrient elements Hyperlipidemia, unspecified hyperlipidemia type Class 1 obesity due to excess calories with serious comorbidity and body mass index (BMI) of 33.0 to 33.9 in adult Expected: 10/06/2023 (Approximate), Expires: 04/05/2024 [facility] Comment on above: Expected: 10/06/2023 (Approximate), Expires: 04/05/2024 Start: 10-06-2023 End: 04-05-2024 CBC panel - Blood by Automated count CBC Lab Routine REMIGIO on CPAP Primary hypertension Deficiency of multiple nutrient elements Hyperlipidemia, unspecified hyperlipidemia type Class 1 obesity due to excess calories with serious comorbidity and body mass index (BMI) of 33.0 to 33.9 in adult Expected: 10/06/2023 (Approximate), Expires: 04/05/2024 [facility] Comment on above: Expected: 10/06/2023 (Approximate), Expires: [...] in adult Expected: 10/06/2023 (Approximate), Expires: 04/05/2024 [facility] Comment on above: Expected: 10/06/2023 (Approximate), Expires: [...] in adult Expected: 10/06/2023 (Approximate), Expires: 04/05/2024 [facility] Comment on above: Expected: 10/06/2023 (Approximate), Expires: 04/05/2024 Start: 10-06-2023 End: 04-05-2024 Ferritin [Mass/volume] in Serum or Plasma Ferritin Lab Routine REMIGIO on CPAP Primary hypertension Deficiency of multiple nutrient elements Hyperlipidemia, unspecified hyperlipidemia type Class 1 obesity due to excess calories with serious comorbidity and body mass index (BMI) of 33.0 to 33.9 in adult Expected: 10/06/2023 (Approximate), Expires: 04/05/2024 [facility] Comment on above: Expected: 10/06/2023 (Approximate), Expires: 04/05/2024 Start: 10-06-2023 End: 04-05-2024 Folate [Mass/volume] in Serum or Plasma Folate Lab Routine REMIGIO on CPAP Primary hypertension Deficiency of multiple nutrient elements Hyperlipidemia, unspecified hyperlipidemia type Class 1 obesity due to excess calories with serious comorbidity and body mass index (BMI) of 33.0 to 33.9 in adult Expected: 10/06/2023 (Approximate), Expires: 04/05/2024 [facility] Comment on above: Expected: 10/06/2023 (Approximate), Expires: [...] in adult Expected: 10/06/2023 (Approximate), Expires: 04/05/2024 [facility] Comment on above: Expected: 10/06/2023 (Approximate), Expires: 04/05/2024 Start: 10-06-2023 End: 04-05-2024 Lipid 1996 panel - Serum or Plasma Lipid panel Lab Routine REMIGIO on CPAP Primary hypertension Deficiency of multiple nutrient elements Hyperlipidemia, unspecified hyperlipidemia type Class 1 obesity due to excess calories with serious comorbidity and body mass index (BMI) of 33.0 to 33.9 in adult Expected: 10/06/2023 (Approximate), Expires: 04/05/2024 [facility] Comment on above: Expected: 10/06/2023 (Approximate), Expires: 04/05/2024 Start: 10-06-2023 End: 04-05-2024 Magnesium [Mass/volume] in Serum or Plasma Magnesium Lab Routine REMIGIO on CPAP Primary hypertension Deficiency of multiple nutrient elements Hyperlipidemia, unspecified hyperlipidemia type Class 1 obesity due to excess calories with serious comorbidity and body mass index (BMI) of 33.0 to 33.9 in adult Expected: 10/06/2023 (Approximate), Expires: 04/05/2024 [facility] Comment on above: Expected: 10/06/2023 (Approximate), Expires: 04/05/2024 Start: 10-06-2023 End: 04-05-2024 Vitamin B1, whole blood Vitamin B1, whole blood Lab Routine REMIGIO on CPAP Primary hypertension Deficiency of multiple nutrient elements Hyperlipidemia, unspecified hyperlipidemia type Class 1 obesity due to excess calories with serious comorbidity and body mass index (BMI) of 33.0 to 33.9 in adult Expected: 10/06/2023 (Approximate), Expires: 04/05/2024 [facility] Comment on above: Expected: 10/06/2023 (Approximate), Expires: 04/05/2024 Start: 10-06-2023 End: 04-05-2024 Zinc Zinc Lab Routine REMIGIO on CPAP Primary hypertension Deficiency of multiple nutrient elements Hyperlipidemia, unspecified hyperlipidemia type Class 1 obesity due to excess calories with serious comorbidity and body mass index (BMI) of 33.0 to 33.9 in adult Expected: 10/06/2023 (Approximate), Expires: 04/05/2024 [facility] Work Phone: Comment on above: Expected: 10/06/2023 (Approximate), Expires: 04/05/2024 Start: 09-30-2023 Screening for malign ant neoplasm of breast Mammogram [facility] Start: 09-13-2023 Behavioral Health Screening Behavioral Health Screening [facility] Start: 09-13-2023 Depression Assessment Depression Ass essment [facility] Start: 09-02-2023 End: 09-02-2023 Patient encounter procedure 09/02/2023 9:45 AM EST Office Visit [facility] [address] [facility] [address] [place] [id number] Gavin Moctezuma MD [address] [facility] [address] [place] [address] [facility] Start: 08-28-2023 ANNUAL PCP TEAM LEATHER [employer]S MATCHER LEE DISEASE VISIT ANNUAL PCP TEAM CHRONIC DISEASE VISIT [facility] Start: 08-28-2023 BP CONTROLLED (<130/80) BP CONTROLLE D (<130/80) [facility] Start: 08-28-2023 HEPATITIS B (1 of 3 - 3-dose series) HEPATITIS B (1 of 3 - 3-dose series) [facility] Comment on above: Postponed from 12/05 (Declined at this time) Start: 08-28-2023 Hepatitis B Vaccine (1 of 3 - 3-dose series) Hepatitis B Vaccine (1 of 3 - 3-dose series) [facility] Comment on above: Postponed from 12/05 (Declined at this time) Start: 08-28-2023 PNEUMOCOCCAL (3 - PCV) PNEUMOCOCCAL (3 - PCV) [facility] Comment on above: Postponed from 07/12 (Declined at this time) Start: 08-28-2023 Pneumococcal vaccination Pneum ococcal Vaccine (3 - PCV) [facility] Comment on above: Postponed from 07/12 (Declined at this time) Start: 08-17-2023 Thyroid stimulating hormone measurement TSH Level [facility] Start: 08-13-2023 Diabetes mellitus screening Diabetes Screening [facility] Start: 08-03-2023 End: 11-02-2023 Thyrotropin [Units/volume] in Serum or Plasma TSH BLD Lab Routine Acquired hypothyroidism Expected: 08/03/2023, Expires: 11/02/2023 [facility] Work Phone: Comment on above: Expected: 08/03/2023 [...] D level Expected: 07/06/2023 (Approximate), Expires: 04/05/2024 [facility] Comment on above: Expected: 07/06/2023 (Approximate), Expires: 04/05/2024 Start: 05-14-2023 Covid-19 Vaccine ( season) Covid-19 Vaccine ( season) [facility] Start: 05-14-2023 Influenza vaccination Influenza Vacc ine (#1) [facility] Start: 04-02-2023 End: 04-02-2023 Patient encounter procedure 04/02/2023 Office Visit Bariatrics Garret Burt PA [address] [place] [address] [facility] Start: 03-09-2023 ANNUAL PCP TEAM LEATHER [employer] MATCHER LEE DISEASE VISIT ANNUAL PCP TEAM CHRONIC DISEASE VISIT [facility] Start: 03-04-2023 End: 12-03-2023 25-hydroxyvitamin D3 [Mass/volume] in Serum or Plasma Vitamin D 25 hydroxy Lab Routine REMIGIO on CPAP Primary hypertension Deficiency of multiple nutrient elements Class 2 severe obesity due to excess calories with serious comorbidity and body mass index (BMI) of 35.0 to 35.9 in adult (HCC) Expected: 03/04/2023 (Approximate), Expires: 12/03/2023 [facility] Comment on above: Expected: 03/04/2023 (Approximate), Expires: 12/03/2023 Start: 03-04-2023 End: 12-03-2023 CBC panel - Blood by Automated count CBC Lab Routine REMIGIO on CPAP Primary hypertension Deficiency of multiple nutrient elements Class 2 severe obesity due to excess calories with serious comorbidity and body mass index (BMI) of 35.0 to 35.9 in adult (HCC) Expected: 03/04/2023 (Approximate), Expires: 12/03/2023 [facility] Comment on above: Expected: 03/04/2023 (Approximate), Expires: 12/03/2023 Start: 03-04-2023 End: 12-03-2023 Cobalamin (Vitamin B12) [Mass/volume] in Serum or Plasma Vitamin B12 Lab Routine REMIGIO on CPAP Primary hypertension Deficiency of multiple nutrient elements Class 2 severe obesity due to excess calories with serious comorbidity and body mass index (BMI) of 35.0 to 35.9 in adult (HCC) Expected: 03/04/2023 (Approximate), Expires: 12/03/2023 [facility] Comment on above: Expected: 03/04/2023 (Approximate), Expires: 12/03/2023 Start: 03-04-2023 End: 12-03-2023 Comprehensive metabolic 1998 panel - Serum or Plasma Comprehensive metabolic panel Lab Routine REMIGIO on CPAP Primary hypertension Deficiency of multiple nutrient elements Class 2 severe obesity due to excess calories with serious comorbidity and body mass index (BMI) of 35.0 to 35.9 in adult (HCC) Expected: 03/04/2023 (Approximate), Expires: 12/03/2023 [facility] Comment on above: Expected: 03/04/2023 (Approximate), Expires: 12/03/2023 Start: 03-04-2023 End: 12-03-2023 Ferritin [Mass/volume] in Serum or Plasma Ferritin Lab Routine REMIGIO on CPAP Primary hypertension Deficiency of multiple nutrient elements Class 2 severe obesity due to excess calories with serious comorbidity and body mass index (BMI) of 35.0 to 35.9 in adult (HCC) Expected: 03/04/2023 (Approximate), Expires: 12/03/2023 [facility] Comment on above: Expected: 03/04/2023 (Approximate), Expires: 12/03/2023 Start: 03-04-2023 End: 12-03-2023 Folate [Mass/volume] in Serum or Plasma Folate Lab Routine REMIGIO on CPAP Primary hypertension Deficiency of multiple nutrient elements Class 2 severe obesity due to excess calories with serious comorbidity and body mass index (BMI) of 35.0 to 35.9 in adult (HCC) Expected: 03/04/2023 (Approximate), Expires: 12/03/2023 [facility] Comment on above: Expected: 03/04/2023 (Approximate), Expires: 12/03/2023 Start: 03-04-2023 End: 12-03-2023 Iron and Iron binding capacity panel - Serum or Plasma Iron Lab Routine REMIGIO on CPAP Primary hypertension Deficiency of multiple nutrient elements Class 2 severe obesity due to excess calories with serious comorbidity and body mass index (BMI) of 35.0 to 35.9 in adult (HCC) Expected: 03/04/2023 (Approximate), Expires: 12/03/2023 [facility] Comment on above: Expected: 03/04/2023 (Approximate), Expires: 12/03/2023 Start: 03-04-2023 End: 12-03-2023 Lipid 1996 panel - Serum or Plasma Lipid panel Lab Routine REMIGIO on CPAP Primary hypertension Deficiency of multiple nutrient elements Class 2 severe obesity due to excess calories with serious comorbidity and body mass index (BMI) of 35.0 to 35.9 in adult (HCC) Expected: 03/04/2023 (Approximate), Expires: 12/03/2023 [facility] Comment on above: Expected: 03/04/2023 (Approximate), Expires: 12/03/2023 Start: 03-04-2023 End: 12-03-2023 Magnesium [Mass/volume] in Serum or Plasma Magnesium Lab Routine REMIGIO on CPAP Primary hypertension Deficiency of multiple nutrient elements Class 2 severe obesity due to excess calories with serious comorbidity and body mass index (BMI) of 35.0 to 35.9 in adult (HCC) Expected: 03/04/2023 (Approximate), Expires: 12/03/2023 [facility] Comment on above: Expected: 03/04/2023 (Approximate), Expires: 12/03/2023 Start: 03-04-2023 End: 12-03-2023 Vitamin B1, whole blood Vitamin B1, whole blood Lab Routine REMIGIO on CPAP Primary hypertension Deficiency of multiple nutrient elements Class 2 severe obesity due to excess calories with serious comorbidity and body mass index (BMI) of 35.0 to 35.9 in adult (HCC) Expected: 03/04/2023 (Approximate), Expires: 12/03/2023 [facility] Comment on above: Expected: 03/04/2023 (Approximate), Expires: 12/03/2023 Start: 03-04-2023 End: 12-03-2023 Zinc Zinc Lab Routine REMIGIO on CPAP Primary hypertension Deficiency of multiple nutrient elements Class 2 severe obesity due to excess calories with serious comorbidity and body mass index (BMI) of 35.0 to 35.9 in adult (HCC) Expected: 03/04/2023 (Approximate), Expires: 12/03/2023 [facility] Work Phone: Comment on above: Expected: 03/04/2023 (Approximate), Expires: 12/03/2023 Start: 03-03-2023 End: 03-03-2023 Patient encounter procedure 03/03/2023 Office Visit Bariatrics Garret Burt PA [address] [place] [address] [facility] Start: 2022 End: 10-08-2023 CBC panel - Blood by Automated count CBC Lab Routine Primary hypertension Hyperlipidemia, unspecified hyperlipidemia type Hypothyroidism, unspecified type REMIGIO (obstructive sleep apnea) Class 2 obesity due to excess calories with body mass index (BMI) of 38.0 to 38.9 in adult, unspecified whether serious comorbidity present Deficiency of multiple nutrient elements Expected: 2022 (Approximate), Expires: 10/08/2023 [facility] Comment on above: Expected: 2022 (Approximate), Expires: [...] nutrient elements Expected: 2022 (Approximate), Expires: 10/08/2023 [facility] Comment on above: Expected: 2022 (Approximate), Expires: [...] nutrient elements Expected: 2022 (Approximate), Expires: 10/08/2023 [facility] Comment on above: Expected: 2022 (Approximate), Expires: [...] nutrient elements Expected: 2022 (Approximate), Expires: 10/08/2023 [facility] Comment on above: Expected: 2022 (Approximate), Expires: [...] nutrient elements Expected: 2022 (Approximate), Expires: 10/08/2023 [facility] Comment on above: Expected: 2022 (Approximate), Expires: [...] nutrient elements Expected: 2022 (Approximate), Expires: 10/08/2023 [facility] Comment on above: Expected: 2022 (Approximate), Expires: [...] nutrient elements Expected: 2022 (Approximate), Expires: 10/08/2023 [facility] Comment on above: Expected: 2022 (Approximate), Expires: 10/08/2023 Start: 2022 End: 10-08-2023 Zinc Zinc Lab Routine Primary hypertension Hyperlipidemia, unspecified hyperlipidemia type Hypothyroidism, unspecified type REMIGIO (obstructive sleep apnea) Class 2 obesity due to excess calories with body mass index (BMI) of 38.0 to 38.9 in adult, unspecified whether serious comorbidity present Deficiency of multiple nutrient elements Expected: 2022 (Approximate), Expires: 10/08/2023 [facility] Work Phone: Comment on above: Expected: 2022 (Approximate), Expires: 10/08/2023 Start: 12-02-2022 End: 12-02-2022 Patient encounter procedure 12/02/2022 Office Visit Bariatrics Garret Burt PA [address] [place] [address] [facility] Start: 11-15-2022 Adult depression screening assessment DEPRESSION SCREENING [facility] Start: 11-14-2022 Creatinine measurement Creatinine mo nitoring [facility] Start: 11-14-2022 Lipid panel [facility] Start: 11-14-2022 Potassium monitoring Potassium monit oring [facility] Start: 11-03-2022 ANNUAL PCP TEAM LEATHER [employer] MATCHER LEE DISEASE VISIT ANNUAL PCP TEAM CHRONIC DISEASE VISIT [facility] Start: 10-08-2022 End: 10-01-2023 Potassium [Moles/volume] in Serum or Plasma Potassium Lab Routine Hypokalemia Expected: 10/08/2022 (Approximate), Expires: 10/01/2023 [facility] Work Phone: Comment on above: Expected: 10/08/2022 (Approximate), Expires: 10/01/2023 Start: 10-08-2022 End: 10-08-2022 Patient encounter procedure 10/08/2022 Office Visit Bariatrics Gavin Moctezuma MD [address] [place] [address] [facility] Start: 09-24-2022 End: 09-10-2023 CBC panel - Blood by Automated count CBC Lab Routine Deficiency of multiple nutrient elements REMIGIO (obstructive sleep apnea) Hyperlipidemia, unspecified hyperlipidemia type Primary hypertension Morbid obesity with BMI of 40.0-44.9, adult (HCC) Expected: 09/24/2022 (Approximate), Expires: 09/10/2023 [facility] Comment on above: Expected: 09/24/2022 (Approximate), Expires: 09/10/2023 Start: 09-24-2022 End: 09-10-2023 Cobalamin (Vitamin B12) [Mass/volume] in Serum or Plasma Vitamin B12 Lab Routine Deficiency of multiple nutrient elements REMIGIO (obstructive sleep apnea) Hyperlipidemia, unspecified hyperlipidemia type Primary hypertension Morbid obesity with BMI of 40.0-44.9, adult (HCC) Expected: 09/24/2022 (Approximate), Expires: 09/10/2023 [facility] Comment on above: Expected: 09/24/2022 (Approximate), Expires: 09/10/2023 Start: 09-24-2022 End: 09-10-2023 Comprehensive metabolic 1998 panel - Serum or Plasma Comprehensive metabolic panel Lab Routine Deficiency of multiple nutrient elements REMIGIO (obstructive sleep apnea) Hyperlipidemia, unspecified hyperlipidemia type Primary hypertension Morbid obesity with BMI of 40.0-44.9, adult (HCC) Expected: 09/24/2022 (Approximate), Expires: 09/10/2023 [facility] Comment on above: Expected: 09/24/2022 (Approximate), Expires: 09/10/2023 Start: 09-24-2022 End: 09-10-2023 Ferritin [Mass/volume] in Serum or Plasma Ferritin Lab Routine Deficiency of multiple nutrient elements REMIGIO (obstructive sleep apnea) Hyperlipidemia, unspecified hyperlipidemia type Primary hypertension Morbid obesity with BMI of 40.0-44.9, adult (HCC) Expected: 09/24/2022 (Approximate), Expires: 09/10/2023 [facility] Comment on above: Expected: 09/24/2022 (Approximate), Expires: 09/10/2023 Start: 09-24-2022 End: 09-10-2023 Folate [Mass/volume] in Serum or Plasma Folate Lab Routine Deficiency of multiple nutrient elements REMIGIO (obstructive sleep apnea) Hyperlipidemia, unspecified hyperlipidemia type Primary hypertension Morbid obesity with BMI of 40.0-44.9, adult (HCC) Expected: 09/24/2022 (Approximate), Expires: 09/10/2023 [facility] Comment on above: Expected: 09/24/2022 (Approximate), Expires: 09/10/2023 Start: 09-24-2022 End: 09-10-2023 Iron and Iron binding capacity panel - Serum or Plasma Iron Lab Routine Deficiency of multiple nutrient elements REMIGIO (obstructive sleep apnea) Hyperlipidemia, unspecified hyperlipidemia type Primary hypertension Morbid obesity with BMI of 40.0-44.9, adult (HCC) Expected: 09/24/2022 (Approximate), Expires: 09/10/2023 [facility] Comment on above: Expected: 09/24/2022 (Approximate), Expires: 09/10/2023 Start: 09-24-2022 End: 09-10-2023 Magnesium [Mass/volume] in Serum or Plasma Magnesium Lab Routine Deficiency of multiple nutrient elements REMIGIO (obstructive sleep apnea) Hyperlipidemia, unspecified hyperlipidemia type Primary hypertension Morbid obesity with BMI of 40.0-44.9, adult (HCC) Expected: 09/24/2022 (Approximate), Expires: 09/10/2023 [facility] Comment on above: Expected: 09/24/2022 (Approximate), Expires: 09/10/2023 Start: 09-24-2022 End: 09-10-2023 Zinc Zinc Lab Routine Deficiency of multiple nutrient elements REMIGIO (obstructive sleep apnea) Hyperlipidemia, unspecified hyperlipidemia type Primary hypertension Morbid obesity with BMI of 40.0-44.9, adult (HCC) Expected: 09/24/2022 (Approximate), Expires: 09/10/2023 [facility] Work Phone: Comment on above: Expected: 09/24/2022 (Approximate), Expires: 09/10/2023 Start: 09-13-2022 DEPRESSION ASSESSMENT DEPRESSION ASS ESSMENT [facility] Start: 08-11-2022 End: 10-11-2022 Basic metabolic 2000 panel - Serum or Plasma BASIC METABOLIC PNL Lab Routine Medication management Expected: 08/11/2022, Expires: 10/11/2022 [facility] Work Phone: Comment on above: Expected: 08/11/2022 , Expires: 10/11/2022 Start: 08-11-2022 End: 10-11-2022 Lipid 1996 panel - Serum or Plasma LIPID PANEL BASIC Lab Routine Medication management Expected: 08/11/2022, Expires: 10/11/2022 [facility] Work Phone: Comment on above: Expected: 08/11/2022 , Expires: 10/11/2022 Start: 08-11-2022 End: 10-11-2022 SCHEDULE LAB TESTING SCHEDULE LAB TESTING Lab Routine Expected: 08/11/2022, Expires: 10/11/2022 [facility] Work Phone: Comment on above: Expected: 08/11/2022 , Expires: 10/11/2022 Start: 08-11-2022 End: 10-11-2022 Thyrotropin [Units/volume] in Serum or Plasma TSH BLD Lab Routine Acquired hypothyroidism Expected: 08/11/2022, Expires: 10/11/2022 [facility] Work Phone: Comment on above: Expected: 08/11/2022 , Expires: 10/11/2022 Start: 06-03-2022 COVID-19 VACCINE (5 - Booster for Pfizer series) COVID-19 VACCINE (5 - Booster for Pfizer series) [facility] Start: 05-14-2022 Influenza vaccination [facility] Start: 04-08-2022 End: 04-08-2022 Telemedicine consultation with patient 04/08/2022 Telemedicine Pulmonology Jeannine Ross, ARMORED CAR 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 - 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 [place] [address] [facility] Start: 03-28-2022 COVID-19 VACCINE (5 - Booster for Pfizer series) COVID-19 VACCINE (5 - Booster for Pfizer series) [facility] Start: 03-20-2022 End: 03-20-2022 Patient encounter procedure 03/20/2022 Office Visit Weight Management Shalonda Bar MD [address] [place] [address] [facility] Start: 02-24-2022 End: 04-26-2022 CBC panel - Blood by Automated count CBC Lab Routine Medication management Expected: 02/24/2022, Expires: 04/26/2022 [facility] Work Phone: Comment on above: Expected: 02/24/2022 , Expires: 04/26/2022 Start: 02-24-2022 End: 04-26-2022 SCHEDULE LAB TESTING SCHEDULE LAB TESTING Lab Routine Expected: 02/24/2022, Expires: 04/26/2022 [facility] Work Phone: Comment on above: Expected: 02/24/2022 , Expires: 04/26/2022 Start: 02-20-2022 End: 02-20-2022 Patient encounter procedure 02/20/2022 Office Visit Weight Management Shalonda Bar MD [address] [place] [address] [facility] Start: 01-28-2022 End: 01-28-2022 Patient encounter procedure 01/28/2022 Office Visit Cardiology Eduardo Rodriguez MD [address] [place] [address] [facility] Start: 01-23-2022 End: 01-23-2022 Patient encounter procedure 01/23/2022 Office Visit Weight Management Shalonda Bar MD [address] [place] [address] [facility] Start: 01-07-2022 End: 01-07-2022 Telemedicine consultation with patient 01/07/2022 Telemedicine Pulmonology Jeannine Ross, ARMORED CAR 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 - 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 [place] [address] [facility] Start: 12-09-2021 End: 12-09-2021 Patient encounter procedure 12/09/2021 Office Visit Pulmonology Jeannine Ross [employer]ORED [employer] 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 - 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 [place] [address] [facility] Start: 11-18-2021 End: 11-18-2021 Patient encounter procedure 11/18/2021 Appointment General Surgery Gavin Moctezuma MD [address] [place], [place] [id number] [facility] Start: 10-17-2021 End: 10-17-2021 Patient encounter procedure 10/17/2021 Office Visit Weight Management Shalonda Bar MD [address] [place], [place] [id number] [facility] Start: 10-15-2021 End: 10-15-2021 ambulatory 10/15/2021 Virtual Visit Bariatrics Lorena Alexis RD, LD [address] [place], [place] [id number] [facility] [place] Start: 09-14-2021 COVID-19 VACCINE (4 - Booster for Pfizer series) COVID-19 VACCINE (4 - Booster for Pfizer series) [facility] Start: 09-13-2021 DEPRESSION ASSESSMENT DEPRESSION ASS ESSMENT [facility] Start: 08-02-2021 Mammography [facility] Start: 06-15-2020 Screening for malign ant neoplasm of cervix Cervical Cancer Screening [facility] Start: 10-23-2019 End: 10-23-2019 Patient encounter procedure 10/23/2019 Office Visit Orthopedic Surgery Joi Srivastava PA [address] [facility] [address] [place] [address] [phone] [facility] [place] Start: 12-05-2017 Breast cancer screen Breast cancer s creen [facility] Work Phone: Start: 12-05-2017 Colon cancer screen colonoscopy Colon cancer screen colonoscopy [facility] Work Phone: Start: 12-05-2017 Screening for malign ant neoplasm of breast Breast cancer screen [facility] Start: 12-05-2017 Shingles Vaccine (1 of 2) Lopez gles Vaccine (1 of 2) [facility] Work Phone: Start: 05-23-2017 Hepatitis B screening Urine Albumin:Creatinine Ratio [facility] Start: 11-30-2015 Glaucoma screening Dilated Retinal E xam [facility] Start: 07-12-2015 PNEUMOCOCCAL (3 - PCV) PNEUMOCOCCAL (3 - PCV) [facility] Start: 07-12-2015 Pneumococcal vaccination Pneum ococcal Vaccine (3 of 3 - PCV) [facility] Start: 06-02-2015 FECAL OCCULT BLOOD FECAL OCCULT BLOO D [facility] Start: 06-02-2015 Screening for malign ant neoplasm of colon Fecal Occult Blood [facility] Start: 12-05-2012 COLOGUARD (FIT-DNA) COLOGUARD (FIT-D NA) [facility] Start: 12-05-[address] COLONOGRAPHY [facility] Start: 12-05-2012 Screening for malign ant neoplasm of colon [facility] Start: 12-05-2012 SIGMOIDOSCOPY SIGMOIDOSCOPY [facility] Start: 09-30-2009 MMR Vaccines (1 of 1 - Standard series) MMR Vaccines (1 of 1 - Standard series) [facility] Start: 2007 Diabetes screen Diabetes screen [facility] Work Phone: Start: 2007 Screening for malign ant neoplasm of breast Mammogram [facility] Start: 12-05-2002 Diabetes screen Diabetes screen [facility] Start: 12-05-1997 Screening for malign ant neoplasm of cervix [facility] Start: 12-05-1988 Cervical cancer screen Cervical canc er screen [facility] Work Phone: Start: 12-05-1988 Screening for malign ant neoplasm of cervix Pap smear [facility] Start: 12-05-1986 Hepatitis A Vaccines (1 of 2 - Risk 2-dose series) Hepatitis A Vaccines (1 of 2 - Risk 2-dose series) [facility] Start: 12-05-1986 Hepatitis B Vaccine (1 of 3 - 19+ 3-dose series) Hepatitis B Vaccine (1 of 3 - 19+ 3-dose series) [facility] Start: 12-05-1985 Anxiety Screening Anxiety Screening [facility] Start: 12-05-1985 BP Controlled (<130/80) BP Controlle d (<130/80) [facility] Start: 12-05-1985 Depression Screening Depression Scre ening [facility] Start: 12-05-1985 Hepatitis C screening [facility] Start: 12-05-1985 HIV SCREENING HIV SCREENING [facility] Start: 12-05-1982 HIV screen HIV screen [facility] Work Phone: Start: 12-05-1982 HIV screening HIV screen [facility] Start: 1979 Depression Screen Depression Screen [facility] Start: 1979 Depression Screening Depression Scre ening [facility] Start: 12-05-1977 Lipid panel Lipid screen [facility] Start: 12-05-1977 Lipid screen Lipid screen [facility] Work Phone: Start: 12-05-1968 Hepatitis A Vaccines (1 of 2 - Risk 2-dose series) Hepatitis A Vaccines (1 of 2 - Risk 2-dose series) [facility] Start: 1967 Creatinine measurement Creatinine mo nitoring [facility] Start: 1967 Creatinine monitoring Creatinine mon itoring [facility] Work Phone: Start: 1967 HEPATITIS B (1 of 3 - 3-dose series) HEPATITIS B (1 of 3 - 3-dose series) [facility] Start: 1967 Hepatitis B Vaccine (1 of 3 - 3-dose series) Hepatitis B Vaccine (1 of 3 - 3-dose series) [facility] Start: 1967 Hepatitis B Vaccines (1 of 3 - 3-dose series) Hepatitis B Vaccines (1 of 3 - 3-dose series) [facility] Start: 1967 Hepatitis C screening Hepatitis C sc reen [facility] Start: 1967 HIV screening HIV Screening [facility] Start: 1967 Potassium monitoring Potassium monit oring [facility] Start: 1967 Screening for malign ant neoplasm of colon [facility] Albumin/Globulin [Ma ss Ratio] in Serum or Plasma by Electrophoresis [facility] Work Phone: Aldosterone [Mass/vo lume] in Serum or Plasma [facility] Work Phone: Bacteria identified in Urine by Culture BACTERIAL CULTURE, URINE Microbiology Routine Lower abdominal pain 03/07/2025 8:16 AM EDT [facility] Work Phone: Bacteria identified in Urine by Culture BACTERIAL CULTURE, URINE Microbiology Routine Dysuria 04/10/2025 10:27 AM EDT [facility] Work Phone: BACTERIAL VAGINOSIS NAAT BACTERI AL VAGINOSIS NAAT Lab Routine Vaginal discharge 02/08/2025 4:42 PM EDT [facility] Blood glucose - POCT Blood gluco se - POCT Point of Care Testing STAT As Needed until discontinued starting 11/18/2021 [employer] Work Phone: Comment on above: As Needed until disc ontinued starting 11/18/2021 End: 10-13-2019 Blood glucose - POCT Blood glucose - POCT Point of Care Testing STAT One Time for 1 Occurrences starting 10/13/2019 until 10/13/2019 [employer] Work Phone: Comment on above: One Time for 1 Occur rences starting 10/13/2019 until 10/13/2019 JOSEE/TRICHOMONAS NAAT JOSEE /TRICHOMONAS NAAT Lab Routine Vaginal discharge 02/08/2025 4:42 PM EDT [facility] Complement C3 [Mass/volume] in Serum or Plasma [facility] Work Phone: Complement C4 [Mass/volume] in Serum or Plasma [facility] Work Phone: End: 10-13-2019 Creatinine [Mass/volume] in Serum or Plasma Creatinine, serum Lab STAT One Time for 1 Occurrences starting 10/13/2019 until 10/13/2019 [employer] Work Phone: Comment on above: One Time for 1 Occur rences starting 10/13/2019 until 10/13/2019 End: 02-24-2026 CT Abdomen and Pelvis W contrast IV CT ABD/PEL W IVCON Radiology STAT Right lower quadrant abdominal pain 1 Occurrences starting 01/25/2025 until 02/24/2026 [facility] Work Phone: Comment on above: 1 Occurrences starti ng 01/25/2025 until 02/24/2026 End: 06-08-2025 DBT Breast - bilateral screening ADALBERTO SCREENING W [facility]UCK Radiology Routine Encounter for screening mammogram for breast cancer 1 Occurrences starting 05/09/2024 until 06/08/2025 [facility] Work Phone: Comment on above: 1 Occurrences starti ng 05/09/2024 until 06/08/2025 End: 10-05-2025 DBT Breast - bilateral screening ADALBERTO SCREENING W [facility]UCK Radiology Routine Encounter for gynecological examination (general) (routine) without abnormal findings Encounter for screening mammogram for breast cancer 1 Occurrences starting 09/05/2024 until 10/05/2025 [facility] Work Phone: Comment on above: 1 Occurrences starti ng 09/05/2024 until 10/05/2025 DBT Breast - bilater al screening ADALBERTO SCREENING W [facility] Radiology Routine Encounter for screening mammogram for breast cancer 10/20/2024 7:25 AM EST [facility] Work Phone: EKG 12 Lead EKG 12 Lead ECG Routine 11/14/2021 2:54 PM EST [facility] Work Phone: Electrophoresis: albumin [facility] Work Phone: Electrophoresis: [id number] [facility] Work Phone: Electrophoresis: [id number] [facility] Work Phone: Electrophoresis: jaja ma globulin [facility] Work Phone: End: 01-22-2026 EMG(NEURO/NI) EMG(NEURO/NI) EMG Routine Paresthesia of both feet 1 Occurrences starting 01/22/2025 until 01/22/2026 [facility] Comment on above: 1 Occurrences starti ng 01/22/2025 until 01/22/2026 Endometrial bx w/wo endocervix bx w/o dilat spx ENDOMETRIAL BIOPSY Procedures Routine Thickened endometrium Ordered: 02/08/2025 [facility] Work Phone: Comment on above: Ordered: 02/08/2025 Globulin measurement [facility] Work Phone: Incentive spirometry Incentive s pirometry Respiratory Care Routine Q1H PRN until discontinued starting 10/13/2019 [facility] Work Phone: Comment on above: Q1H PRN until discon tinued starting 10/13/2019 Initiate Oxygen Ther apy Protocol Initiate Oxygen Therapy Protocol Respiratory Care Routine Daily until discontinued starting 10/13/2019 [employer] Work Phone: Comment on above: Daily until disconti nued starting 10/13/2019 End: 11-18-2021 INITIATE PACU OXYGEN THERAPY PROTOCOL Initiate PACU Oxygen Therapy Protocol Respiratory Care Routine Continuous until discontinued starting 11/18/2021 [employer] Work Phone: Comment on above: Continuous until dis continued starting 11/18/2021 End: 11-18-2021 Intermittent pulse oximetry Pulse Oximetry Spot Check Respiratory Care Routine One Time for 1 Occurrences starting 11/18/2021 until 11/18/2021 [employer] Work Phone: Comment on above: One Time for 1 Occur rences starting 11/18/2021 until 11/18/2021 End: 09-12-2023 ADALBERTO SCREENING ADALBERTO SCREENING Radiology Routine Encounter for screening mammogram for breast cancer 1 Occurrences starting 08/13/2022 until 09/12/2023 [facility] Work Phone: Comment on above: 1 Occurrences starti ng 08/13/2022 until 09/12/2023 End: 08-19-2024 ADALBERTO SCREENING ADALBERTO SCREENING Radiology Routine Encounter for screening mammogram for breast cancer 1 Occurrences starting 07/21/2023 until 08/19/2024 [facility] Work Phone: Comment on above: 1 Occurrences starti ng 07/21/2023 until 08/19/2024 End: 06-08-2025 MG Breast Screening ADALBERTO SCREENING Radiology Routine Encounter for screening mammogram for breast cancer 1 Occurrences starting 05/09/2024 until 06/08/2025 [facility] Comment on above: 1 Occurrences starti ng 05/09/2024 until 06/08/2025 Nasal Cannula Oxygen Nasal Cannu la Oxygen Respiratory Care Routine As Needed until discontinued starting 11/18/2021 [employer] Work Phone: Comment on above: As Needed until disc ontinued starting 11/18/2021 Nasal Cannula Oxygen Nasal Cannu la Oxygen Respiratory Care Routine As Needed until discontinued starting 11/18/2021 [employer] Work Phone: Comment on above: As Needed until disc ontinued starting 11/18/2021 Nonrebreather mask oxygen Nonreb reather mask oxygen Respiratory Care Routine As Needed until discontinued starting 11/18/2021 [employer] Work Phone: Comment on above: As Needed until disc ontinued starting 11/18/2021 Nonrebreather mask oxygen Nonreb reather mask oxygen Respiratory Care Routine As Needed until discontinued starting 11/18/2021 [employer] Work Phone: Comment on above: As Needed until disc ontinued starting 11/18/2021 Oxygen therapy [[facility] Data Set] Initiate Oxygen Therapy Protocol Respiratory Care Routine As Needed until discontinued starting 11/18/2021 [employer] Work Phone: Comment on above: As Needed until disc ontinued starting 11/18/2021 PAP TEST PAP TEST Lab Rou alberto Screening for HPV (human papillomavirus) Screening for cervical cancer 02/08/2025 3:18 PM EDT [facility] Phase I & II - meter ed glucose Phase I & II - metered glucose Point of Care Testing Routine As Needed until discontinued starting 10/13/2019 [employer] Work Phone: Comment on above: As Needed until disc ontinued starting 10/13/2019 End: 10-13-2019 Potassium w/ Reflex to Magnesium Potassium w/ Reflex to Magnesium Lab Routine One Time for 1 Occurrences starting 10/13/2019 until 10/13/2019 [employer] Work Phone: Comment on above: One Time for 1 Occur rences starting 10/13/2019 until 10/13/2019 Protein electrophore sis panel - Serum or Plasma [facility] Work Phone: End: 10-13-2019 Protime-INR Protime-INR Lab STAT One Time for 1 Occurrences starting 10/13/2019 until 10/13/2019 [employer] Work Phone: Comment on above: One Time for 1 Occur rences starting 10/13/2019 until 10/13/2019 End: 10-13-2019 Pulse Oximetry Spot Check Pulse Oximetry Spot Check Respiratory Care Routine One Time for 1 Occurrences starting 10/13/2019 until 10/13/2019 [employer] Work Phone: Comment on above: One Time for 1 Occur rences starting 10/13/2019 until 10/13/2019 Renin [Enzymatic activity/volume] in Plasma [facility] Work Phone: Serum protein electrophoresis [facility] Work Phone: Spirometry panel Incentive iain metry Respiratory Care Routine Q1H PRN until discontinued starting 11/18/2021 [facility] Work Phone: Comment on above: Q1H PRN until discon tinued starting 11/18/2021 Thyrotropin [Units/volume] in Serum or Plasma TSH BLD Lab Routine Acquired hypothyroidism 12/24/2023 7:08 AM EDT [facility] Work Phone: Total globulins measurement [facility] Work Phone: End: 02-25-2026 US Pelvis limited US FEMALE PELVIS TRANSABD LTD Radiology Routine Uterine cyst Abnormal CT scan 1 Occurrences starting 01/26/2025 until 02/25/2026 [facility] Work Phone: Comment on above: 1 Occurrences starti ng 01/26/2025 until 02/25/2026 End: 02-25-2026 US Pelvis transvaginal US FEMALE PELVIS TRANSVAG Radiology Routine Uterine cyst Abnormal CT scan 1 Occurrences starting 01/26/2025 until 02/25/2026 [facility] Comment on above: 1 Occurrences starti ng 01/26/2025 until 02/25/2026 End: 11-14-2021 Vitamin B1, Whole Blood [facility] Work Phone: Comment on above: 1 Occurrences starti ng 11/14/2021 until 11/14/2021 End: 11-14-2021 Vitamin D 25 Hydroxy [facility] Work Phone: Comment on above: 1 Occurrences starti ng 11/14/2021 until 11/14/2021 End: 02-21-2026 XR Cervical spine AP and Lateral and oblique XR CERV OTHER 4V AP/LAT/OBL Radiology Routine Paresthesia of both feet 1 Occurrences starting 01/22/2025 until 02/21/2026 [facility] Comment on above: 1 Occurrences starti ng 01/22/2025 until 02/21/2026 XR Cervical spine AP and Lateral and oblique XR CERV OTHER 4V AP/LAT/OBL Radiology Routine Paresthesia of both feet 01/22/2025 4:23 PM EDT [facility] End: 02-21-2026 XR Lumbar spine 3 Views XR LUMBAR GENERAL 3V AP/LAT/L5-S1 Radiology Routine Paresthesia of both feet 1 Occurrences starting 01/22/2025 until 02/21/2026 [facility] Comment on above: 1 Occurrences starti ng 01/22/2025 until 02/21/2026 XR Lumbar spine 3 Views XR LUMBA R GENERAL 3V AP/LAT/L5-S1 Radiology Routine Paresthesia of both feet 01/22/2025 4:23 PM EDT [facility] End: 11-14-2021 Zinc [facility] Work Phone: Comment on above: 1 Occurrences starti ng 11/14/2021 until 11/14/2021 [facility] Immunizations Immunization Date Immunization Notes Care Provider [facility] 05-11-2025 pneumococcal conjuga te (PCV20) vaccine, 20 valent (PREVNAR 20) Fior Alvarez ARMORED [employer] 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.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 Work Phone: [facility] 05-11-2025 pneumococcal Conjuga te, unspecified formulation Fior Alvarez ARMORED CAR 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.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 Work Phone: [facility] 05-28-2024 influenza virus vacc ine, unspecified formulation Ash Chowdhury MD Work Phone: [facility] 05-09-2024 pneumococcal polysaccharide vaccine, 23 valent Ana Bolaños MD Work Phone: [facility] 08-26-2023 influenza virus vacc ine, unspecified formulation Luz GLEZC Work Phone: [facility] 05-26-2022 influenza virus vacc ine, unspecified formulation Garret POLLOCK Work Phone: [facility] 01-31-2022 Covid-19, Pfizer Gra y Top, Do Not Dilute, (Age 12 Y+), Im L Marilou Clifton RD Work Phone: [facility] 06-14-2021 Pfizer SARS-CoV-2 Vaccination Marilou Clifton PEPE Work Phone: [facility] 05-17-2021 influenza, injectabl e, quadrivalent, contains preservative Alexander Quinteros Jr., MD Work Phone: [facility] Work Phone: 12-18-2020 COVID-19 vaccine, ag e 12+ yr (PFIZER-BIONTECH - PURPLE TOP) Alexander Quinteros Jr., MD Work Phone: [facility] Work Phone: 11-27-2020 COVID-19 vaccine, ag e 12+ yr (PFIZER-BIONTECH - PURPLE TOP) Alexander Quinteros Jr., MD Work Phone: [facility] Work Phone: 08-02-2020 zoster vaccine recombinant Alexander Quinteros Jr., MD Work Phone: [facility] Work Phone: 06-01-2020 zoster vaccine recombinant Alexander Quinteros Jr., MD Work Phone: [facility] Work Phone: 05-14-2019 influenza, seasonal, injectable Alexander Quinteros Jr., MD Work Phone: [facility] 06-11-2018 influenza, injectabl e, quadrivalent, contains preservative Alexander Quinteros Jr., MD Work Phone: [facility] 06-16-2017 diphtheria, tetanus toxoids and acellular pertussis vaccine, 5 pertussis antigens Alexander Quinteros Jr., MD Work Phone: [facility] Work Phone: 06-18-2016 influenza, injectabl e, quadrivalent, contains preservative Alexander Quinteros Jr., MD Work Phone: [facility] Work Phone: 06-20-2015 influenza, seasonal, injectable Alexander Quinteros Jr., MD Work Phone: [facility] 06-13-2015 influenza, seasonal, injectable Alexander Quinteros Jr., MD Work Phone: [facility] Work Phone: 07-12-2014 pneumococcal polysaccharide vaccine, 23 valent Alexander Quinteros Jr., MD Work Phone: [facility] 07-14-2012 influenza virus vacc ine, unspecified formulation Alexander Quintreos Jr., MD Work Phone: [facility] 07-14-2010 influenza virus vacc ine, unspecified formulation Alexander Quinteros Jr., MD Work Phone: [facility] Work Phone: 07-20-2008 influenza virus vacc ine, unspecified formulation Alexander Quinteros Jr., MD Work Phone: [facility] Work Phone: 01-18-2007 tetanus and diphther ia toxoids, adsorbed, preservative free, for adult use (2 Lf of tetanus toxoid and 2 Lf of diphtheria toxoid) Alexander Quinteros Jr., MD Work Phone: [facility] 07-14-2006 influenza virus vacc ine, unspecified formulation Aelxander Quinteros Jr., MD Work Phone: [facility] Work Phone: 12-12-2002 pneumococcal polysaccharide vaccine, 23 valent Alexander Quinteros Jr., MD Work Phone: [facility] Work Phone: Payers Date Payer Category Payer Self-pay [id number] 2020 Private Health Insurance [id number] 2020 Private Health Insurance CIGNA CIGNA POS [id number] 2020-Present [phone] [address] [place] [address] POS [id number] 2020 Private Health Insurance [id number] 2019 Unknown BCBS BCBS OUT OF STATE xxxxxxxxxxxx 2019-Present [address] [place] [address] xxxxxxxxxxxx [id number] 2016 Unknown [id number] 2016 Unknown ANTHEM [id number] 2015 Private Health Insurance AETNA [id number] Unknown [facility] PACKAGE PLAN [id number] Unknown [id number] .462 Unknown [id number] 2.840.1.669803.3.579.2 .462 Unknown [id number] 2.16840.1.855572.3.579.2 .462 Unknown [id number] .[id number] .462 Unknown [id number] 2.16840.1.882143.3.579.2 .462 Unknown [id number] 2.16840.1.653097.3.579.2 .462 Unknown [id number] 2.16840.1.568784.3.579.2 .462 Unknown [id number] 2.16840.1.718884.3.579.2 .462 Unknown [id number] 2.16840.1.619734.3.579.2 .462 Unknown [id number] 2.16.840.1.989874.3.579.2 .462 Unknown [id number] 2.16.840.1.834030.3.579.2 .462 Unknown [id number] 2.16.840.1.087563.3.579.2 .462 Unknown [id number] 2.16.840.1.118600.3.579.2 .462 Unknown [id number] 2.16840.1.364487.3.579.2 .462 Unknown [id number] 2.840.1.430500.3.579.2 .462 Unknown [id number] 2.840.1.488862.3.579.2 .462 Unknown [id number] 2..840.1.669517.3.579.2 .462 Unknown [id number] 2.840.1.737560.3.579.2 .462 Unknown [id number] 2.840.1.722152.3.579.2 .462 Unknown [id number] 2.840.1.269898.3.579.2 .462 Unknown [id number] 2.16.840.1.562619.3.579.2 .462 Unknown [id number] 2.840.1.378509.3.579.2 .462 Unknown [id number] 2.840.1.031155.3.579.2 .462 Unknown [id number] 2.16840.1.877946.3.579.2 .462 Unknown [id number] 2.16.840.1.649337.3.579.2 .462 Unknown [id number] 2.16.840.1.402158.3.579.2 .462 Unknown [id number] 2.16.840.1.835061.3.579.2 .462 Unknown [id number] 2.16840.1.645491.3.579.2 .462 Unknown [id number] 2.16.840.1.898906.3.579.2 .462 Unknown [id number] 2.16.840.1.628208.3.579.2 .462 Social History Date Type Detail Facility Start: 10-06-2019 End: 05-09-2024 Tobacco smoking status [facility] Ex-smoker [employer] Work Phone: Start: 10-06-2019 End: 05-09-2024 Tobacco use and exposure Smokeless tobacco non-user [employer] Work Phone: Start: 09-15-2021 End: 05-07-2025 Alcohol intake Current drinker of alcohol (finding) [employer] Work Phone: Start: 10-06-2019 History SDOH Alcohol Comment OCCASSIONAL [employer] Work Phone: Start: 10-06-2019 Tobacco Comment QUIT 16 YEARS AGO [employer] Work Phone: Start: 1965 Sex Assigned At Not on file [employer] Work Phone: Start: 09-13-1981 End: 06-14-2003 History of tobacco use Cigarette Smoker [employer] Work Phone: Start: 10-06-2019 End: 03-08-2023 Cigarettes smoked current (pack per day) - Reported 0.5 [facility] [employer] Start: 11-14-2021 Tobacco Comment QUIT 19 YEARS AGO [employer] Work Phone: Start: 10-18-2021 End: 04-05-2023 Exposure to SARS-CoV-2 (event) Not sure [facility] Start: 06-15-2013 End: 06-15-2013 Tobacco smoking status WAIS Unknown if ever smoked [facility] Start: 1965 Sex Assigned At Female [facility] Start: 09-13-1981 End: 06-14-2003 History of tobacco use Current smoker [facility] Start: 09-02-2021 End: 08-21-2022 History SDOH Alcohol Frequency 3 [facility] Start: 09-02-2021 End: 09-02-2022 History SDOH Alcohol Std Drinks 1 [facility] Start: 09-02-2021 End: 09-02-2022 History SDOH Alcohol Binge 2 [facility] Start: 03-10-2007 History SDOH Alcohol Comment Occaisionally [facility] Start: 09-02-2021 End: 08-21-2022 History SDOH Financial 5 [facility] Start: 08-19-2019 Education 17 [facility] Start: 08-21-2022 History SDOH Physica l Activity DPW 4 [facility] Start: 09-02-2022 History SDOH Alcohol Std Drinks 0 [facility] Start: 09-02-2022 End: 03-08-2023 Humiliation, Afraid, Rape, and Kick questionnaire [HARK] [facility] Within the last year , have you been afraid of your partner or ex-partner? No [facility] How often to you hav e a drink containing alcohol? Never [facility] Start: 08-14-2012 How many standard drinks containing alcohol do you have on a typical day? Patient does not drink [facility] Are you now , , , , never or living with a partner? [facility] How often to you hav e a drink containing alcohol? Monthly or less [facility] How many standard drinks containing alcohol do you have on a typical day? 1 or 2 [facility] Do you feel stress - tense, restless, nervous, or anxious, or unable to sleep at night because your mind is troubled all the time - these days [OSQ] Only a little [facility] (I/We) worried wheth er (my/our) food would run out before (I/we) got money to buy more. Never true [facility] Start: 09-05-2024 Alcohol Comment [facility] Start: 03-30-2025 Alcohol Comment social - 1 dri nk a month [facility] NEGATED: Highlighted rowStart: NINF History of tobacco use Passive smoker [facility] Medical Equipment Procedure Code Equipment Code Equipment Origin al Text Equipment Identifier Dates [employer] [id number] Start: 09-02-2022 Functional Status Date Assessment Result Facility 11-03-2024 Total score [AUDIT-C] 1 11/03/19 25 8:20 AM EST [email or web address] [facility] 11-03-2024 Within the last year , have you been humiliated or emotionally abused in other ways by your partner or ex-partner? No 11/03/2024 8:20 AM EST [email or web address] No [facility] 11-03-2024 Within the last year , have you been afraid of your partner or ex-partner? No 11/03/2024 8:20 AM EST [email or web address] No [facility] 11-03-2024 Within the last year , have you been raped or forced to have any kind of sexual activity by your partner or ex-partner? No 11/03/2024 8:20 AM EST [email or web address] No [facility] 11-03-2024 Within the last year , have you been kicked, hit, slapped, or otherwise physically hurt by your partner or ex-partner? No 11/03/2024 8:20 AM EST [email or web address] No [facility] 11-03-2024 How often to you hav e a drink containing alcohol? Monthly or less 11/03/2024 8:20 AM EST User, Saminat Monthly or less [facility] 11-03-[address] inks containing alcohol do you have on a typical day? 1 or 2 11/03/2024 8:20 AM EST User, [email or web address] 1 or 2 [facility] 11-03-2024 How often do you hav e 6 or more drinks on 1 occasion? Never 11/03/2024 8:20 AM EST [email or web address] Never [facility] 01-18-2015 Are you deaf, or do you have serious difficulty hearing No 01/18/2015 8:02 AM Radha Anderson LPN No [facility] 01-18-2015 Are you blind, or do you have serious difficulty seeing, even when wearing glasses No 01/18/2015 8:02 AM Radha Anderson LPN No [facility] 01-18-2015 Do you have serious difficulty walking or climbing stairs No 01/18/2015 8:02 AM Radha Anderson LPN No [facility] 01-18-2015 Do you have difficul ty dressing or bathing No 01/18/2015 8:02 AM EDT Radha Velasco LPN No [facility] 01-18-2015 Because of a physica l, mental, or emotional condition, do you have difficulty doing errands alone such as visiting a physician's office or shopping No 01/18/2015 8:02 AM EDT Radha Velasco LPN No [facility] Mental Status Date Assessment Result Facility 01-18-2015 Because of a physica l, mental, or emotional condition, do you have serious difficulty concentrating, remembering, or making decisions No 01/18/2015 8:02 AM EDRadha Shea LPN No [facility] Clinical Notes 07-22-2015 to 07-10-2025 Patient Fior Woods APRN.[facility] - 05/11/2025 7:54 AM Ash Nava MD - 05/07/2025 3:51 PM EDTPatient Fior Woods APRN.[facility] - 05/02/2025 3:40 PM EDTPatient Instructions Note Date & Type Note Facility 07-10-2025 Note [facility] Medical Records Department [address] [place] [id number] History Physical Exam 07/10/25 1347 MR#: [id number] Acct: [id number] Name: YAMILEXSANTOS OLEA Rep #: [id number] : 1965 59 From: Tobin Bauman MD PCP: Dr. Ana Bolaños MD Status:[facility] Location: [place] [address] History and Physical Date of Admission: 07/10/25 MR#: [id number] Acct: [id number] Name: SANTOS ALLAN Rep #: [id number] : 1965 Provider: Dr. Tobin Bauman MD Age/Sex: 59/F Location: [facility] Status: Signed Intake Vital Signs 04/20/2508:26 Height 5 ft 6 in Intake Visit [...] mg (as 1 tab PO DAILY@0800 06/23/13 07/03/25 History carbonate)-vitamin D3 20 mcg (800 unit) tablet (Caltrate with Vitamin D3) cholecalciferol (vitamin D3) 50 2,000 unit PO DAILY 06/23/13 07/03/25 History mcg (2,000 unit) tablet (Vitamin D3) eletriptan 20 mg tablet (Relpax) 20 mg PO DAILY PRN MIGRAINE 06/23/13 07/03/25 Hist ory cevimeline 30 mg capsule (Evoxac) 30 mg PO BID 08/09/23 07/03/25 History hydroxychloroquine 200 mg tablet 200 mg PO BID 08/09/23 07/03/25 History (Plaquenil) leflunomide 20 mg tablet 20 mg PO DAILY 08/09/23 07/03/25 History lisinopril 20 mg tablet 20 mg PO DAILY 08/09/23 07/03/25 History metoprolol tartrate 25 mg tablet 12.5 mg PO DAILY 08/09/23 07/03/25 History multivitamin 1 tab PO DAILY 08/09/23 07/03/25 History omeprazole 20 mg capsule,delayed 20 mg PO DAILY 08/09/23 07/03/25 History release pravastatin 80 mg tablet 80 mg PO QHS 08/09/23 07/03/25 History sulfasalazine 500 mg tablet 1 g PO BID 08/09/23 07/03/25 History cyclobenzaprine 10 mg tablet 10 mg PO BID PRN muscle spasm 10/12/24 07/03/25 Hi story gabapentin 400 mg capsule 400 mg PO TID 11/08/24 07/03/25 History levothyroxine 44 mcg capsule 44 mcg PO MOWEFR 11/08/24 07/03/25 History hydrocodone-acetaminophen 5-325mg 0.5 - 1 tab PO QD-BID PRN pain 12/07/24 07/03/25 H istory 5mg-325mg citalopram 20 mg tablet 30 mg (1.5 x 20 mg) PO DAILY 90 02/22/25 07/03/25 Rx days #135 tabs gabapentin 100 mg capsule 100 mg PO TID 04/05/25 07/03/25 History tirzepatide 7.5 mg/0.5 mL 10 mg subcut TH 04/05/25 07/03/25 History subcutaneous pen injector (Jimmy) aripiprazole 2 mg tablet 4 mg PO QHS 04/10/25 07/03/25 History estradiol 0.01% (0.1 mg/gram) 1 applic vaginal MOTH 06/26/25 07/03/25 History vaginal cream hydrochlorothiazide 12.5 mg capsule 12.5 mg PO DAILY 06/26/25 07/03/25 History potassium chloride 10 mEq 10 meq PO BID 06/26/25 07/03/25 History tablet,extended release PFSH Medical History Alcohol use [...] ago did patient quit smoking: quit 22 y (more content not included)... [facility] 06-25-2025 Note HNO ID: [id number] Author: AAN BOLAÑOS MD Service: ? Author Type: Physician [...] is taking sulfasalazine. She last saw her computer information systems instructor 3-4 months ago and has a follow-up appointment in July. Her computer information systems instructor reports that her scleroderma is controlled, and [...] myelopathy (M51.26) Severe L5-S1 disc degeneration with [id number] changes; patient scheduled for minimally invasive discectomy and fusion. - Proceed with planned surgery. 3. Sjogren's syndrome, with unspecified organ involvement (HCC) (M35.00) Condition is stable and controlled per rheumatology; no pulmonary involvement. - Continue current management. - Follow-up with rheumatology in July. 4. Essential (more content not included)... [facility] 05-11-2025 Instructions Fior Alvarez APRN.CNP - 05/11/2025 [...] notice anything concerning. documented in this encounter [facility] 05-11-2025 Note HNO ID: [id number] Author: FIOR ALVAREZ APRN.CNP Service: ? Author Type: Nurse Practitioner Type: Progress Notes Filed: 05/11/2025 08:21 Note Text: CC: Patient presents with: Recheck: Follow up BP, low potassium HPI Santos Allan is a 59 year old female who presents today for follow up. Recording using [employer] software for draft documentation of the visit was discussed with the patient/authorized customer retention representative; all questions welcomed and answered. Patient/authorized customer retention representative agreed to proceed Hypertension: - Blood [...] Uterine Cancer Moth (more content not included)... [facility] 05-11-2025 History of Present illness Narrative CC: Patient presents with: Recheck: Follow up BP, low potassium HPI Santos Allan is a 59 year old female who presents today for follow up. Recording using [employer] software for draft documentation of the visit was discussed with the patient/authorized customer retention representative; all questions welcomed and answered. Patient/authorized customer retention representative agreed to proceed Hypertension: - Blood [...] Drug use: No documented in this encounter [facility] 05-07-2025 Note HNO ID: [id number] Author: ASH CHOWDHURY MD Service: ? Author Type: Physician Type: Progress Notes Filed: 05/07/2025 18:25 Note Text: DATE OF SERVICE: 05/07/2025 PROBLEM: Santos Allan presents for postop visit. SURGERY AND DATE: Hysteroscopy [facility] PATHOLOGY: benign SUBJECTIVE/INTERVAL HISTORY: Santos Allan is [...] weekly at this time Ash Chowdhury DO [facility] 05-07-2025 History of Present illness Narrative DATE [...] Ash Chowdhury DO documented in this encounter [facility] 05-02-2025 Instructions Fior Alvarez APRN.CNP - 05/02/2025 3:49 PM EDT - Restart [...] a blood clot. documented in this encounter [facility] 05-02-2025 Note HNO ID: [id number] Author: FIOR ALVAREZ APRN.CNP Service: ? Author Type: Nurse Practitioner Type: Progress Notes Filed: 05/02/2025 16:09 Note Text: CC: Patient presents with: Recheck: Medication follow up HPI Santos Allan is a 59 year old female who presents today for BP follow up. Was switched to spironolactone from HCTZ due to hypokalemia. Recording using [employer] software for draft documentation of the visit was discussed with the patient/authorized customer retention representative; all questions welcomed and answered. Patient/authorized customer retention representative agreed to proceed Edema and HTN: [...] Cancer Mother Diabete (more content not included)... [facility] 05-02-2025 History of Present illness Narrative CC: Patient presents with: Recheck: Medication follow up HPI Santos Allan is a 59 year old female who presents today for BP follow up. Was switched to spironolactone from HCTZ due to hypokalemia. Recording using [employer] software for draft documentation of the visit was discussed with the patient/authorized customer retention representative; all questions welcomed and answered. Patient/authorized customer retention representative agreed to proceed Edema and HTN: [...] occur. Patient agreeable to treatment plan. Fior Alvarez, LIZETH.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 [1] Social History Tobacco Use Smoking status: [...] Drug use: No documented in this encounter [facility] 04-13-2025 Telephone encounter Note See my chart encounter Fior Alvarez APRN.CNP [facility] 04-13-2025 Miscellaneous Notes See my chart encounter [...] Fior Alvarez APRN.CNP documented in this encounter [facility] 04-12-2025 Telephone encounter Note Patient notified, if hematuria returns she will call and schedule with Urology. [facility] 04-12-2025 Miscellaneous Notes Patient notified, if hematuria [...] Angelique Bradford PA-C documented in this encounter [facility] 04-12-2025 Telephone encounter Note Patient notified, feeling ok, swelling is still there but patient feels it may be caused by the gabapentin that helps with her neuropathy so willing to put up with the swelling. [facility] 04-12-2025 Telephone encounter Note ----- Message from Fior Alvarez APRN.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 sent at 04/12/2025 3:47 PM EDT ----- Potassium is in normal range. How is she feeling? How I her swelling? Thank you Fior Alvarez APRN.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 [facility] 04-12-2025 Telephone encounter Note Please let patient know that her urine culture did not show a clear infection, but mixed microbiota-possibly contamination with collection. I would recommend f/u with urology with hematuria and not a clear infection as discussed. Consult ordered. F/u sooner if symptoms are not improving/resolving. Angelique Bradford PA-C [facility] 04-10-2025 Note HNO ID: [id number] Author: ANGELIQUE BRADFORD PA-C Service: ? Author Type: Physician Dressmaker Or Tailor Type: Progress Notes Filed: 04/10/2025 12:38 Note Text: Recording using ambient [employer] software for draft documentation of the visit was discussed with the patient/authorized customer retention representative; all questions welcomed and answered. Patient/authorized customer retention representative agreed to proceed 04/10/2025 Recurrent UTIs: [...] Uterine fibroids, thicken (more content not included)... [facility] 04-10-2025 History of Present illness Narrative Recording using [employer] software for draft documentation of the visit was discussed with the patient/authorized customer retention representative; all questions welcomed and answered. Patient/authorized customer retention representative agreed to proceed 04/10/2025 Recurrent UTIs: [...] and myositis, unspecified REMIGIO (obstructive sleep apnea) [facility] [place] [facility] [place] [facility] [place] Other and unspecified hyperlipidemia Right [...] May 07. - Advised patient to inform COMMUNITY CASE MANAGER of recent antibiotic treatment. The patient indicates understanding of these issues and agrees with the plan. Reviewed red flags and when to seek care sooner. Angelique Bradford PA-C 04/10/2025 documented in this encounter [facility] 04-10-2025 Instructions Angelique Bradford PA-C - 04/10/2025 [...] at that time documented in this encounter [facility] 04-09-2025 History and physical note DATE OF [...] Medical Decision Making Level: 4 - Moderate [facility] 04-09-2025 History and physical note DATE OF [...] OF EXAM: Feb 06 2025 10:31AM U 1060 - US FEMALE PELVIS TRANSVAG / [...] 4 - Moderate documented in this encounter [facility] 04-06-2025 Telephone encounter Note Patient notified, Denies any symptoms. [facility] 04-06-2025 Miscellaneous Notes Patient notified, Denies any symptoms. Potassium is very low. Any concerning symptoms? Palpitations? Chest pain? Weakness? Has she been taking the 10 meq of potassium twice a day? I have sent in a large 40 kassandra bid for 2 days dose, recheck in 3 days. Fior Alvarez APRN.BRITANY documented in this encounter [facility] 04-05-2025 Telephone encounter Note Potassium is very low. Any concerning symptoms? Palpitations? Chest pain? Weakness? Has she been taking the 10 meq of potassium twice a day? I have sent in a large 40 kassandra bid for 2 days dose, recheck in 3 days. Fior Alvarez APRN.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 [facility] 04-02-2025 Telephone encounter Note Patient notified. Christofer Moore RN [facility] 04-02-2025 Miscellaneous Notes Patient notified. Christofer Moore RN Left message to call office. Keren Carreon RN No concerns Patient scheduled for hysteroscopy D&C on 04/20/25. Calling because she has MRI with contrast on 04/13/25 and asking if the contrast will affect anything with surgery/anesthesia. Christofer Moore RN documented in this encounter [facility] 04-02-2025 Telephone encounter Note Left message to call office. Keren Carreon RN [facility] 04-02-2025 Telephone encounter Note No concerns [facility] 03-30-2025 Note HNO ID: [id number] Author: FIOR ALVAREZ APRN.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 Service: ? Author Type: Nurse Practitioner Type: [...] carpal tunnel PAS (more content not included)... [facility] 03-30-2025 History of Present illness Narrative CC: [...] Fior Alvarez APRN.CNP documented in this encounter [facility] 03-28-2025 Instructions Luz Meeks PA-C - 03/28/2025 4:18 PM EDT Increase gabapentin to 500mg three times a day (400mg with a 100mg tablet) Follow up in 3-6 months documented in this encounter [facility] 03-28-2025 Note HNO ID: [id number] Author: LUZ MEEKS PA-C Service: ? Author Type: Physician Dressmaker Or Tailor Type: Progress Notes Filed: 03/28/2025 16:31 Note Text: I have [facility] for General Neurology Name: Santos Allan Age: [...] a follow-up with Luz as well at [facility]. I spent a total of 35 minutes on the date of the service which included preparing to see the patient, [id number] patient care, completing clinical documentation, obtaining and/or [...] episode (or current) (more content not included)... [facility] 03-28-2025 History of Present illness Narrative I have [facility] for General Neurology Name: Santos Allan Age: [...] a follow-up with Luz as well at [facility]. I spent a total of 35 minutes on the date of the service which included preparing to see the patient, [id number] patient care, completing clinical documentation, obtaining and/or [...] (Final result) This note was dictated using [employer] speech recognition software and may contain some [...] which included preparing to see the patient, [id number] patient care, completing clinical documentation, obtaining and/or reviewing separately obtained history, performing a medically appropriate examination, counseling and educating the patient/family/caregiver, and ordering medications, tests, or procedures. Recording using [employer] software for draft documentation of the visit was discussed with the patient/authorized customer retention representative; all questions welcomed and answered. Patient/authorized customer retention representative agreed to proceed documented in this encounter [facility] 03-28-2025 Note HNO ID: [id number] Author: WENDY TEJADA LPN Service: ? Author Type: LICENSED NURSE Type: Progress Notes Filed: 03/28/2025 16:31 Note Text: [facility] 03-28-2025 Telephone encounter Note Patient scheduled for hysteroscopy D&C on 04/20/25. Calling because she has MRI with contrast on 04/13/25 and asking if the contrast will affect anything with surgery/anesthesia. Christofer Moore RN [facility] 03-22-2025 Note HNO ID: [id number] Author: ASH CHOWDHURY MD Service: ? Author Type: Physician Type: Progress Notes Filed: 03/22/2025 12:57 Note Text: VIRTUAL VISIT PROGRESS NOTE This is a virtual visit using [employer] Video Visit. It required patient-provider interaction for the medical decision making as documented below. I have communicated my name and active licensure. The patient's identity and physical location were verified at the time of this visit. Either the patient or their legal customer retention representative has been informed of the risks and benefits of -- and alternatives to -- treatment through a remote evaluation and consents to proceed with the evaluation remotely. Santos Allan is a 59 year old female seen to discuss hysteroscopy [facility]. Patient states she was having pelvic pain [...] Bilevel 25/20 c (more content not included)... [facility] 03-22-2025 History of Present illness Narrative VIRTUAL VISIT PROGRESS NOTE This is a virtual visit using [employer] Zoom Video Visit. It required patient-provider interaction for the medical decision making as documented below. I have communicated my name and active licensure. The patient's identity and physical location were verified at the time of this visit. Either the patient or their legal customer retention representative has been informed of the risks [...] which included preparing to see the patient, [id number] patient care, completing clinical documentation, performing a medically appropriate examination, counseling and educating the patient/family/caregiver, and ordering medications, tests, or procedures Ash Chowdhury DO documented in this encounter [facility] 03-12-2025 Note HNO ID: [id number] Author: ANA BOLAÑOS MD Service: ? Author Type: Physician Type: Progress Notes Filed: 03/12/2025 13:17 Note Text: Reason for Visit Follow up [facility] Santos Allan is a 59-year-old female with [...] Monitor BMP in (more content not included)... [facility] 03-12-2025 History of Present illness Narrative Reason [...] excuse any unintended typographical errors. Recording using [employer] software for draft documentation of the visit was discussed with the patient/authorized customer retention representative; all questions welcomed and answered. Patient/authorized customer retention representative agreed to proceed Ana Bolaños MD documented in this encounter [facility] 03-12-2025 Instructions Ana Bolaños MD - 03/12/2025 [...] other concerning symptoms. documented in this encounter [facility] 03-07-2025 Instructions Jacquie Clarke APRN.CNP - 03/07/2025 8:27 AM EDT - Take Keflex (cephalexin) twice a day as prescribed; prescription has been sent to your [facility] pharmacy. - A urine culture was sent to the lab; results usually return in a couple of days (likely by Wednesday) to confirm the diagnosis and guide treatment. - Keep your scheduled follow-up appointment with Dr. Pozo on the ; if your symptoms worsen or do not improve before then, please contact our office. documented in this encounter [facility] 03-07-2025 Note HNO ID: [id number] Author: JACQUIE CLARKE APRN.BRITANY Service: ? Author Type: Nurse Practitioner Type: Progress Notes Filed: 03/07/2025 08:28 Note Text: CC: Patient presents with: Abdominal Pain: Lower abdomen x 2 days HPI Recording using Advice Wallet software for draft documentation of the visit was discussed with the patient/authorized customer retention representative; all questions welcomed and answered. Patient/authorized customer retention representative agreed to proceed Santos Allan is [...] of Onset Diabetes (more content not included)... [facility] 03-07-2025 History of Present illness Narrative CC: Patient presents with: Abdominal Pain: Lower abdomen x 2 days HPI Recording using Advice Wallet software for draft documentation of the visit was discussed with the patient/authorized customer retention representative; all questions welcomed and answered. Patient/authorized customer retention representative agreed to proceed Santos Allan is [...] TAB) Take 1.5 tablet daily. sodium fluoride/pot nitrate(LotarisIDENT 5000 SENSITIVE 1.1 %-5 % DENTAL PASTE) [...] Patient agreeable to treatment plan. Jacquie Clarke APRN.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 documented in this encounter [facility] 02-27-2025 Note Patient Outreach (IN [facility]) ---- SANTOS ALLAN ([id number]) 1965 F Date Time Provider Department 02/27/25 ANA BOLAÑOS During your visit today, we recorded the following information about you: Allergies As of Date: 02/27/2025 Noted Allergy Reaction HYDROCODONE-ACETAMINOPHEN 08/24/2019 9 - Itching IMITREX (SUMATRIPTAN) 07/25/2007 Comments: Face went numb PREDNISONE 09/05/2024 1 - Mental Status Change Date Reviewed: 02/08/2025 Reviewed by: Richie Newman APRN.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 - Fully Assessed Visit Diagnoses:Type 2 diabetes mellitus (HCC) [E11.9] Hyperlipidemia, unspecified hyperlipidemia type [E78.5] Acquired hypothyroidism [E03.9] Order(s):ALBUMIN/CREATININE RATIO, URINE [SQUACR] Order #: [id number] FUTURE LIPID PANEL, FASTING [SQLIPB] Order #: [id number] FUTURE THYROID STIMULATING HORMONE [SQTSH] Order #: [id number] FUTURE Prescriptions as of 03/02/2025 - eletriptan [...] mellitus (HCC) [E11.9] 01/26/2024 Encounter Status:Closed by PARADISE HDEZ on 03/02/25 [facility] 02-09-2025 Note HNO ID: [id number] Author: DENVER MATTA DO Service: ? Author [...] Visit completed when applicable. RD Reid DO [facility] 02-09-2025 History of Present illness Narrative UNIVERSAL [...] RD Reid DO documented in this encounter [facility] 02-08-2025 Note HNO ID: [id number] Author: RICHIE NEWMAN APRN.CNP Service: ? Author Type: Nurse Practitioner [...] physician to discuss hysteroscopy D+C Richie Newman APRN.[facility] 02-08-2025 Procedure note Santos is a [...] physician to discuss hysteroscopy D+C Richie Newman APRN.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 [facility] 02-08-2025 Procedure note Santos is a 59 [...] physician to discuss hysteroscopy D+C Richie Newman APRN.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 documented in this encounter [facility] 02-08-2025 Note HNO ID: [id number] Author: RICHIE NEWMAN APRN.BRITANY Service: ? Author Type: Nurse Practitioner [...] Living0 SAB0 IAB0 Ectopic0 Multiple0 Live Births0 Fine Craft Artist History LMP: 02/13/2019 (Approximate), Postmenopausal [age] at Menarche[age] Age at First : Age at 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 History Comments: Sexual Activity: Not Currently; Male [...] 25 mg table (more content not included)... [facility] 02-08-2025 History of Present illness Narrative Santos [...] Living0 SAB0 IAB0 Ectopic0 Multiple0 Live Births0 Fine Craft Artist History LMP: 02/13/2019 (Approximate), Postmenopausal Age at Menarche: [age] Age at First : Age at 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 History Comments: Sexual Activity: Not Currently; Male [...] Assessed 02/08/2025 REVIEW OF SYSTEMS Expanded ROS: COMMUNITY CASE MANAGER: + pelvic pain Allergies and current medication updated:Yes SENSITIVE EXAM: The sensitive examination was discussed with the Patient or Patient's Authorized Nursing Unit Manager. As applicable, any other physician, advance practice provider, medical student, or other health professional student that will be observing or involved in the sensitive examination for educational or training purposes was discussed with the Patient or Authorized Nursing Unit Manager. The Patient or Authorized Nursing Unit Manager has agreed to proceed with the sensitive examination. (Sensitive examination includes inspection and/or palpation of the breasts, pelvis, prostate and anorectal regions). EXAM: Wt 181 lb (82.1kg) LMP 02/13/2019 GENERAL: pleasant, female in no apparent distress HEENT: Normocephalic, atraumatic, mucus membranes moist, and no lesions CHEST: Normal inspiratory effort PELVIC: external genitalia atrophic, normal Bartholin's glands, urethra, Haigler's glands, no vulvar lesions, no cervical lesions, [...] 4 - Moderate documented in this encounter [facility] 02-08-2025 Telephone encounter Note Patient MyChart message requesting [...] went numb Prednisone Mental Status Change (home) [phone] (work) [phone] (cell) Last Office Visit Date: 01/25/2025 Last [facility] Visit: 04/03/2024 Future Appointment: 03/12/2025 The patients preferred pharmacy has been captured for this encounter? yes Request is for script(s) to be escript to pharmacy. Kristina Law LPN [facility] 02-08-2025 Miscellaneous Notes Patient MyChart message requesting the [...] went numb Prednisone Mental Status Change (home) [phone] (work) [phone] (cell) Last Office Visit Date: 01/25/2025 Last [facility] Visit: 04/03/2024 Future Appointment: 03/12/2025 The patients preferred pharmacy has been captured for this encounter? yes Request is for script(s) to be escript to pharmacy. Kristina Law LPN documented in this encounter [facility] 02-06-2025 History of Present illness Narrative Radiology [...] PATIENT PRESENTS WITH AN IMPLANTABLE OR ATTACHED CIRCUS LABORER: No RADIOLOGY DEPARTMENT: Ultrasound PERIPHERAL IV DATA: Not applicable SIGNED BY: Leola Siu RDMS February 06, 2025 10:28 AM documented in this encounter [facility] 02-06-2025 Note HNO ID: [id number] Author: LEOLA SIU RDMS Service: ? Author Type: Aviation Electronic Warfare Operator Type: Progress Notes Filed: 02/06/2025 10:28 Note Text: Radiology Service Progress Note PATIENT NAME: Santos ENGLISHN: [id number] DATE OF SERVICE: February 06, 2025 TIME: [...] PATIENT PRESENTS WITH AN IMPLANTABLE OR ATTACHED CIRCUS LABORER: No RADIOLOGY DEPARTMENT: Ultrasound PERIPHERAL IV DATA: Not applicable SIGNED BY: Leola Siu RDMS February 06, 2025 10:28 AM [facility] 01-29-2025 Telephone encounter Note Images from the original note were not included. Prior authorization approved Payer: [employer] [phone] Note from payer: CaseId:[id number];Status:Approved;Review Type:Prior Auth;Coverage Start Date:01/24/2025;Coverage End Date:01/29/2026; Approval [...] to its destination. To be filled at: [facility] [place] [address] [address] [phone] Pt notified via my chart. [facility] 01-29-2025 Miscellaneous Notes Images from the original note were not included. Prior authorization approved Payer: [employer] [phone] Note from payer: CaseId:[id number];Status:Approved;Review Type:Prior Auth;Coverage Start Date:01/24/2025;Coverage End Date:01/29/2026; Approval [...] to its destination. To be filled at: [facility] [place] [id number] [place] [phone] Pt notified via my chart. Fax PA rec'd from [facility]. This was completed and faxed back to the pharmacy on the form along with records as they were asking for. documented in this encounter [facility] 01-27-2025 Telephone encounter Note Phoned patient went over results, notes from Fior Alvarez NP with understanding. Assisted with transfer to radiographer to get ultrasound appt set up. [facility] 01-27-2025 Miscellaneous Notes Phoned patient went over results, notes from Fior Alvarez HOTEL BAGGAGE HANDLER with understanding. Assisted with transfer to radiographer to get ultrasound appt set up. Fibroid cyst noted in the uterus that should further be evaluated by ultrasound. This has been ordered. Continue with antibiotic as the bladder wall has some thickening. Follow up if pain does not improve. Thank you Fior Alvarez APRN.BRITANY documented in this encounter [facility] 01-26-2025 Telephone encounter Note Fibroid cyst noted in the uterus that should further be evaluated by ultrasound. This has been ordered. Continue with antibiotic as the bladder wall has some thickening. Follow up if pain does not improve. Thank you Fior Alvarez APRN.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 [facility] 01-26-2025 History of Present illness Narrative Radiology [...] PATIENT PRESENTS WITH AN IMPLANTABLE OR ATTACHED CIRCUS LABORER: No ALLERGIES: Reviewed and unchanged CONTRAST ALLERGY: [...] TIME: 8:10 AM documented in this encounter [facility] 01-26-2025 Note HNO ID: [id number] Author: DARIAN JOSHI CT Service: Radiology Author [...] PATIENT PRESENTS WITH AN IMPLANTABLE OR ATTACHED CIRCUS LABORER: No ALLERGIES: Reviewed and unchanged CONTRAST ALLERGY: [...] DATE: January 26, 2025 TIME: 8:10 AM [facility] 01-25-2025 Note HNO ID: [id number] Author: FIOR ALVAREZ APRN.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 Service: ? Author Type: Nurse Practitioner Type: Progress Notes Filed: 01/25/2025 15:30 Note Text: CC: Patient presents with: Abdominal Pain: Abdominal pain HPI Santos Allan is a 59 year old female who presents today for abdominal pain. Recording using Advice Wallet software for draft documentation of the visit was discussed with the patient/authorized customer retention representative; all questions welcomed and answered. Patient/authorized customer retention representative agreed to proceed Lower Abdominal Pain [...] week. pravastatin (P (more content not included)... [facility] 01-25-2025 History of Present illness Narrative CC: Patient presents with: Abdominal Pain: Abdominal pain HPI Santos Allan is a 59 year old female who presents today for abdominal pain. Recording using Advice Wallet software for draft documentation of the visit was discussed with the patient/authorized customer retention representative; all questions welcomed and answered. Patient/authorized customer retention representative agreed to proceed Lower Abdominal Pain [...] on 06/15/2020 Covid-19 Vaccine(8 - Pfizer risk ) due on 11/25/2024 LDL Cholesterol due on [...] Patient agreeable to treatment plan. Fior Alvarez APRN.BRITANY documented in this encounter [facility] 01-25-2025 Instructions Fior Alvarez APRN.CNP - 01/25/2025 [...] assess your progress documented in this encounter [facility] 01-24-2025 Telephone encounter Note Fax PA rec'd from [facility]. This was completed and faxed back to the pharmacy on the form along with records as they were asking for. [facility] 01-23-2025 Telephone encounter Note Rx new dose for Ana Mascorro MD [facility] 01-23-2025 Miscellaneous Notes Rx new dose for Ana Mascorro MD documented in this encounter [facility] 01-22-2025 History of Present illness Narrative Radiology [...] PATIENT PRESENTS WITH AN IMPLANTABLE OR ATTACHED CIRCUS LABORER: No RADIOLOGY DEPARTMENT: General X-ray: Exam(s) Completed: Spine X-Ray(s): Cervical AP / LAT / OBL and Lumbar AP / LAT / L5-S1 PERIPHERAL IV DATA: Not applicable SIGNED BY: RT Amy(R) January 22, 2025 4:07 PM documented in this encounter [facility] 01-22-2025 Note HNO ID: [id number] Author: JOSEPH PEREZ RT(Jordan) Service: ? Author Type: Aviation Electronic Warfare Operator Type: Progress Notes Filed: 01/22/2025 16:22 Note [...] PATIENT PRESENTS WITH AN IMPLANTABLE OR ATTACHED CIRCUS LABORER: No RADIOLOGY DEPARTMENT: General X-ray: Exam(s) Completed: Spine X-Ray(s): Cervical AP / LAT / OBL and Lumbar AP / LAT / L5-S1 PERIPHERAL IV DATA: Not applicable SIGNED BY: RT Amy(R) January 22, 2025 4:07 PM [facility] 01-22-2025 Instructions Lucille Brandt PA-C - 01/22/2025 7:50 AM EDT Get labs drawn, no need of fasting -Schedule Xray of neck and back -Schedule EMG: Please call the [facility] call center at [phone] to make your EMG testing appointment at one of the following locations: [facility] and [facility] Please make sure that your test is scheduled at one of the above locations. -follow up after work up is completed, encourage in person visit to aid detailed neuro and sensory exam documented in this encounter [facility] 01-22-2025 History of Present illness Narrative Images from the original note were not included. [facility] for General Neurology New Patient Evaluation This [...] Either the patient or their legal customer retention representative has been informed of the risks and benefits of -- and alternatives to -- treatment through a remote evaluation and consents to proceed with the evaluation remotely. Confirmed verbally that the patient currently located in the [facility].Yes Confirmed verbally that the patient consents to being seen virtually today.Yes Confirmed verbally that the patient consents to being seen by a physician child life assistant.Yes CHIEF COMPLAINT: Neuropathy, luz Meeks patient Santos Allan is a 58 year old right-handed female with a history of HTN, DM type 2 (in 30s then had bariatric surgery) currently non diabetic, HLD, bipolar 1, anxiety, anemia, sjogrens, hypothyroidism, REMIGIO. S/p cervical decompression surgery x 2 at [facility] 2019 She is unaccompanied Last visit with Luznena Christinaleena was 07/18/2024 HPI: As per chart review: [...] veg -s/p cervical decompression x 2 with [facility] 2009 and 2013 -she has neck pain [...] without evidence of weakness. VIII-hearing intact. Strength: MAEW REVIEW OF STUDIES: Em10/06/2023: Electrodiagnostic examination of [...] S/p cervical decompression surgery x 2 at [facility] Patient is, Luz Meeks patient at [place], seen virtually today for worsening symptoms of paresthesias/crunchiness sensation in her toes bilaterally. S/p cervical decompression x 2 with [facility], last surgery was 2013 She is symptomatically managed with gabapentin 400 mg 3 times daily, also on hydrocodone/acetaminophen 20 pills in a month for arthritis symptoms. Her limited virtual neuroexam is unremarkable EMG 09/2023 and most recent labs including TSH and A1c reviewed There is no neuroimaging in our charts from her prior surgery at [facility] Paresthesia in both toes, unclear etiology peripheral [...] a follow-up with Luz as well at [facility]. I spent a total of 35 minutes on the date of the service which included preparing to see the patient, [id number] patient care, completing clinical documentation, obtaining and/or [...] your PCP/referring physician documented in this encounter [facility] 01-22-2025 Note HNO ID: [id number] Author: LUCILLE BRANDT PA-C Service: ? Author Type: Physician Dressmaker Or Tailor Type: Progress Notes Filed: 01/22/2025 12:06 Note Text: [facility] for General Neurology New Patient Evaluation This [...] Either the patient or their legal customer retention representative has been informed of the risks and benefits of -- and alternatives to -- treatment through a remote evaluation and consents to proceed with the evaluation remotely. Confirmed verbally that the patient currently located in the [facility].Yes Confirmed verbally that the patient consents to being seen virtually today.Yes Confirmed verbally that the patient consents to being seen by a physician child life assistant.Yes CHIEF COMPLAINT: Neuropathy, luz Queener patient Santos Allan is a 58 year old right-handed female with a history of HTN, DM type 2 (in 30s then had bariatric surgery) currently non diabetic, HLD, bipolar 1, anxiety, anemia, sjogrens, hypothyroidism, REMIGIO. S/p cervical decompression surgery x 2 at [facility] 2019 She is unaccompanied Last visit with [...] foot -There iscru (more content not included)... [facility] 12-13-2024 Telephone encounter Note Patient Indian Energyhart message requesting the following refill Refill(s) Requested: Requested Prescriptions Pending Prescriptions Disp Refills omeprazole (PRILOSEC) 20 mg capsule 90 capsule 3 Sig: Take 1 capsule by mouth once daily. ALLERGIES Allergen Reactions Gabapentin Swelling Hydrocodone-Acetami* Itching Imitrex [Sumatripta* Face went numb Prednisone Mental Status Change (home) [phone] (work) [phone] (cell) Last Office Visit Date: 11/10/2024 Last [facility] Visit: 04/03/2024 Future Appointment: 03/12/2025 The patients preferred pharmacy has been captured for this encounter? yes Request is for script(s) to be escript to pharmacy. Kristina Law LPN [facility] 12-13-2024 Miscellaneous Notes Patient [email or web address] message requesting the following refill Refill(s) Requested: Requested Prescriptions Pending Prescriptions Disp Refills omeprazole (PRILOSEC) 20 mg capsule 90 capsule 3 Sig: Take 1 capsule by mouth once daily. ALLERGIES Allergen Reactions Gabapentin Swelling Hydrocodone-Acetami* Itching Imitrex [Sumatripta* Face went numb Prednisone Mental Status Change (home) [phone] (work) [phone] (cell) Last Office Visit Date: 11/10/2024 Last [facility] Visit: 04/03/2024 Future Appointment: 03/12/2025 The patients preferred pharmacy has been captured for this encounter? yes Request is for script(s) to be escript to pharmacy. Kristina Law LPN documented in this encounter [facility] 11-10-2024 Note HNO ID: [id number] Author: ANA BOLAÑOS MD Service: ? Author [...] packs/day: 0.5 packs (more content not included)... [facility] 11-10-2024 History of Present illness Narrative Reason [...] Ana Bolaños MD documented in this encounter [facility] 11-02-2024 Telephone encounter Note Patient has been [...] Please advise. Thank you. Nadia Sam LPN. [facility] 11-02-2024 Miscellaneous Notes Patient has been identified [...] Nadia Sam LPN. documented in this encounter [facility] 10-20-2024 History of Present illness Narrative Radiology [...] PATIENT PRESENTS WITH AN IMPLANTABLE OR ATTACHED CIRCUS LABORER: No RADIOLOGY DEPARTMENT: Mammography PERIPHERAL IV DATA: Not applicable SIGNED BY: RT Aditi(R) October 20, 2024 7:29 AM documented in this encounter [facility] 10-20-2024 Note HNO ID: [id number] Author: IRIS VARGAS RT(Jordan) Service: ? Author Type: Technologist Type: Progress [...] PATIENT PRESENTS WITH AN IMPLANTABLE OR ATTACHED CIRCUS LABORER: No RADIOLOGY DEPARTMENT: Mammography PERIPHERAL IV DATA: Not applicable SIGNED BY: RT Aditi(R) October 20, 2024 7:29 AM [facility] 10-02-2024 Telephone encounter Note Prescription Refill Information [...] JEY Verdugo October 02, 2024 4:07 PM [facility] 10-02-2024 Miscellaneous Notes Prescription Refill Information The [...] 2024 4:07 PM documented in this encounter [facility] 09-05-2024 Note HNO ID: [id number] Author: KATARINA GUILLORY APRN.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 Service: ? Author Type: Nurse Practitioner Type: Progress Notes Filed: 09/05/2024 07:31 Note Text: Patient declined rolling mill operator helper. Santos is a 58 year old who [...] L0 SAB0 IAB0 Ectopic0 Multiple0 Live Births0 Fine Craft Artist History LMP: 02/13/2019 (Approximate), Postmenopausal [age] at Menarche[age] Age at First : Age at 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 History Comments: Sexual Activity: Not Currently; Male [...] discussed with the Patient or Patient's Authorized Nursing Unit Manager. As applicable, any other physician, advance practice provider, medical student, or other health professional student that will be observing or involved in the sensitive examination for educational or training purposes was discussed with the Patient or Authorized Nursing Unit Manager. The Patient or Authorized Nursing Unit Manager has agreed to proceed with the sensitive [...] external genitalia normal, (more content not included)... [facility] 09-05-2024 History of Present illness Narrative Patient declined rolling mill operator helper. Santos is a 58 year old who [...] L0 SAB0 IAB0 Ectopic0 Multiple0 Live Births0 Fine Craft Artist History LMP: 02/13/2019 (Approximate), Postmenopausal Age at Menarche[age] Age at First : Age at 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 History Comments: Sexual Activity: Not Currently; Male [...] discussed with the Patient or Patient's Authorized Nursing Unit Manager. As applicable, any other physician, advance practice provider, medical student, or other health professional student that will be observing or involved in the sensitive examination for educational or training purposes was discussed with the Patient or Authorized Nursing Unit Manager. The Patient or Authorized Nursing Unit Manager has agreed to proceed with the sensitive [...] external genitalia normal, normal Bartholin's glands, urethra, Haigler's glands, no vulvar lesions, no cervical lesions, [...] year or sooner as needed Katarina Guillory APRN.BRITANY documented in this encounter [facility] 08-23-2024 Telephone encounter Note Spoke with pt and she was not able to get the Zepbound but was able to get Mounjaro. Please remove Zepbound from pt's med list. Alison Kumari LPN [facility] 08-23-2024 Miscellaneous Notes Spoke with pt and she was not able to get the Zepbound but was able to get Mounjaro. Please remove Zepbound from pt's med list. Alison Kumari LPN documented in this encounter [facility] 08-19-2024 Telephone encounter Note Images from the original note were not included. Electronic PA rec'd and completed for zepbound. This was approved. Prior authorization approved Payer: [employer] [phone] Note from payer: CaseId:[id number];Status:Approved;Review Type:Prior Auth;Coverage Start Date:08/15/2024;Coverage End Date:04/15/2025; Approval Details Authorized from August 15, 2024 to April 15, 2025 Electronic appeal: Not supported View History Pharmacy Benefits Open Encounter [facility] ([employer]) Covered: Retail, Mail Order Unknown: Specialty, Long-Term Care BIN: [id number] : 1965 PCN: [id number] Legal sex: F Group name: [employer] [place] Address: [address] [place] [address] Medication Being Authorized tirzepatide, weight loss (ZEPBOUND) 7.5 mg/0.5 mL pen injector Inject 7.5 mg subcutaneously one time a week. Dispense: 2 mL Refills: 3 Start: 08/14/2024 Class: Normal This order has been released to its destination. To be filled at: e- [facility]/pharmacy #[id number] [place] [address] - [address] [facility]. - [phone] [phone] Pt notified via my chart. [facility] 08-19-2024 Miscellaneous Notes Images from the original note were not included. Electronic PA rec'd and completed for zepbound. This was approved. Prior authorization approved Payer: [employer] [phone] Note from payer: CaseId:[id number];Status:Approved;Review Type:Prior Auth;Coverage Start Date:08/15/2024;Coverage End Date:04/15/2025; Approval Details Authorized from August 15, 2024 to April 15, 2025 Electronic appeal: Not supported View History Pharmacy Benefits Open Encounter [facility] ([facility]) Covered: Retail, Mail Order Unknown: Specialty, Long-Term Care BIN: [id number] : 1965 PCN: [id number] Legal sex: F Group name: [employer] [place] Address: [address] [place] [address] Medication Being Authorized tirzepatide, weight loss (ZEPBOUND) 7.5 mg/0.5 mL pen injector Inject 7.5 mg subcutaneously one time a week. Dispense: 2 mL Refills: 3 Start: 08/14/2024 Class: Normal This order has been released to its destination. To be filled at: [facility]/pharmacy #[id number] [place] [address] - [address] [facility]. - [phone] [phone] Pt notified via my chart. documented in this encounter [facility] 08-11-2024 Note HNO ID: [id number] Author: ANA BOLAÑOS MD Service: ? Author [...] tablet cyanocobalamin, vitam (more content not included)... [facility] 08-11-2024 History of Present illness Narrative Reason [...] Ana Bolaños MD documented in this encounter [facility] 07-18-2024 Instructions Luz Meeks PA-C - 07/18/2024 4:28 PM EST Increase gabapentin to 400mg to three times a day Follow up in 6 months documented in this encounter [facility] 07-18-2024 Note HNO ID: [id number] Author: LUZ MEEKS PA-C Service: ? Author Type: Physician Dressmaker Or Tailor Type: Progress Notes Filed: 07/18/2024 16:39 Note [...] vision changes, speech/nusrat (more content not included)... [facility] 07-18-2024 History of Present illness Narrative ESTABLISHED [...] dysarthria; comprehension, naming, repetition intact. Short and halfway memory intact. CN: PERRL, EOMI and without nystagmus, VFF to confrontation, facial sensation and strength are normal and symmetric, hearing is intact to finger rub bilaterally, palate and tongue movements are intact and symmetric. SCM and trapezius strength normal. Motor: Normal tone, bulk and strength (5/5) bilaterally (throughout extremities x4). Reflexes: 1/4 to the Achilles bilaterally, otherwise intact reflexes Coordination: Whxe-hc-dwck intact no tremors. Sensation: Decreased vibration at [...] which included preparing to see the patient, icjs-nh-vcxv patient care, completing clinical documentation, obtaining and/or reviewing separately obtained history, performing a medically appropriate examination, counseling and educating the patient/family/caregiver, and ordering medications, tests, or procedures. This document has been created with the use of voice recognition technology. It may contain inaccuracies: (e.g. misspellings, inaccurate syntax or word sense) that have escaped review. [facility] website checked and validated. All prescriptions have been APPROPRIATELY filled. No suspicious activity was identified. 07/18/2024 by Luz Meeks PA-C documented in this encounter [facility] 07-17-2024 Telephone encounter Note Patient phones requesting refills as follows: Requested Prescriptions Pending Prescriptions Disp Refills potassium chloride (K-TAB) 10 mEq tablet 90 tablet 2 Sig: Take 1 tablet by mouth two times a day. Please review and advise. Edilson Sunshine MA [facility] 07-17-2024 Miscellaneous Notes Patient phones requesting refills as follows: Requested Prescriptions Pending Prescriptions Disp Refills potassium chloride (K-TAB) 10 mEq tablet 90 tablet 2 Sig: Take 1 tablet by mouth two times a day. Please review and advise. Edilson Sunshine MA documented in this encounter [facility] 06-26-2024 Telephone encounter Note Images from the original note were not included. Electronic [facility]Prior authorization approved Payer: [employer] [phone] Note from payer: An active PA is [...] to its destination. To be filled at: [facility]/pharmacy #[id number] [place] [address] - [address] [facility]. - [phone] [phone] Pharmacy notified. [facility] 06-26-2024 Miscellaneous Notes Images from the original note were not included. Electronic PA completed and approved for zepbound.Prior authorization approved Payer: [employer] [phone] Note from payer: An active PA is [...] to its destination. To be filled at: [facility]/pharmacy #[id number] [place] [address] - [address] [facility]. - [phone] [phone] Pharmacy notified. documented in this encounter [facility] 06-26-2024 Telephone encounter Note Prescription Refill Information [...] Menon LPN June 26, 2024 8:26 AM [facility] 06-26-2024 Miscellaneous Notes Prescription Refill Information The [...] 2024 8:26 AM documented in this encounter [facility] 06-02-2024 Telephone encounter Note Increasing gabapentin in the morning and evening. Will add 100mg bid. 400mg in the morning, 300mg in afternoon and 400mg in the evening. PDMP website checked and validated. All prescriptions have been APPROPRIATELY filled. No suspicious activity was identified. 06/02/2024 by Luz Meeks PA-C [facility] 06-02-2024 Miscellaneous Notes Increasing gabapentin in the morning and evening. Will add 100mg bid. 400mg in the morning, 300mg in afternoon and 400mg in the evening. PDMP website checked and validated. All prescriptions have been APPROPRIATELY filled. No suspicious activity was identified. 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 No problem-specific Assessment [...] Ana Bolaños MD documented in this encounter [facility] 04-13-2024 Telephone encounter Note Patient MyChart message requesting the following refill Refill(s) Requested: Requested Prescriptions Pending Prescriptions Disp Refills gabapentin (NEURONTIN) 300 mg capsule 270 capsule 1 Sig: Take 1 capsule by mouth three times a day for 180 days. ALLERGIES Allergen Reactions Imitrex [Sumatripta* Face went numb (home) [phone] (work) [phone] (cell) Last Office Visit Date: 03/03/2024 Last Distance Health Visit: 04/03/2024 Future Appointment: 05/08/2024 The patients preferred pharmacy has been captured for this encounter? yes Request is for script(s) to be escript to pharmacy. Kristina Law LPN [facility] 04-13-2024 Miscellaneous Notes Patient MyChart message requesting the following refill Refill(s) Requested: Requested Prescriptions Pending Prescriptions Disp Refills gabapentin (NEURONTIN) 300 mg capsule 270 capsule 1 Sig: Take 1 capsule by mouth three times a day for 180 days. ALLERGIES Allergen Reactions Imitrex [Sumatripta* Face went numb (home) [phone] (work) [phone] (cell) Last Office Visit Date: 03/03/2024 Last Distance Health Visit: 04/03/2024 Future Appointment: 05/08/2024 The patients preferred pharmacy has been captured for this encounter? yes Request is for script(s) to be escript to pharmacy. Kristina Law LPN documented in this encounter [facility] 04-05-2024 Telephone encounter Note Images from the original note were not included. The office rec'd and completed electronic PA for zepbound. This has been approved. Prior authorization approved Payer: [employer] [phone] CaseId:[id number];Status:Approved;Review Type:Prior Auth;Coverage Start Date:04/03/2024;Coverage End Date:12/01/2024; Approval [...] to its destination. To be filled at: [facility]/pharmacy #[id number] [place] [address] - [address] [facility] - [phone] [phone] Pt notified via my chart. [facility] 04-05-2024 Miscellaneous Notes Images from the original note were not included. The office rec'd and completed electronic PA for zepbound. This has been approved. Prior authorization approved Payer: [employer] [phone] CaseId:[id number];Status:Approved;Review Type:Prior Auth;Coverage Start Date:04/03/2024;Coverage End Date:12/01/2024; Approval [...] to its destination. To be filled at: [facility]/pharmacy #[id number] [place] [address] - [address] [facility]. - [phone] [phone] Pt notified via my chart. documented in this encounter [facility] 04-03-2024 Instructions Jacquie Clarke APRN.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 - 04/03/2024 11:48 AM EDT Tirzepatide Injection [...] noting that the study was funded by [employer]. Another double-blind, placebo-controlled trial examined the effects [...] the placebo.This research also received funds from [employer]. Concerns: The most common side effects are nausea, diarrhea, vomiting and constipation documented in this encounter [facility] 04-03-2024 History of Present illness Narrative This Team Access Model visit is a virtual encounter. It required patient-provider interaction for the medical decision making as documented below. I have communicated my name and active licensure. The patient's identity and physical location were verified at the time of this visit. Either the patient or their legal customer retention representative has been informed of the risks and benefits of -- and alternatives to -- treatment through a remote evaluation and consents to proceed with the evaluation remotely. Patient Location: [place] CC: Patient presents with: Medication Follow-up HPI [...] Patient agreeable to treatment plan. Jacquie Clarke APRN.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 documented in this encounter [facility] 03-28-2024 Instructions Luz Meeks PA-C - 03/28/2024 7:36 AM EDT Alpha lipoic 600mg and continue gabapentin 300mg three times a day Increase water intake, slow transitions from sitting to standing, compression socks if you have leg swelling Follow up as needed documented in this encounter [facility] 03-28-2024 History of Present illness Narrative Images from the original note were not included. [facility] Out[facility] Date: March 28, 2024 Patient Name: Santos Allan Referring physician: No referring provider defined for this encounter. Primary physician: Ana Bolaños [address] [place] [address] Reason for Evaluation: Paresthesias Subjective HPI Santos [...] Extremity RIGHT LEFT Deltoid 5/5 5/5 Biceps / 5/5 Triceps / 5/5 Wrist Extension 5/ 5/5 Wrist Flexion / 5/5 Finger Flexion / 5/5 Finger Extension 01/15 5/5 Finger Abd / 5/5 Finger Add / 5/5 MUSCLES Lower Extremity RIGHT LEFT Hip Flexion 5/ 5/5 Hip Extension / 5/5 BiFem (Knee Flex) 01/15 5/5 Quads (Knee Ext) 01/15 5/5 Gastroc (Plantflx) 01/15 5/5 TibAnt (Dorsiflx) 01/15 5/5 FlxHLong (Toe Flex) / 5/5 ExtHLong (Toe Ext) / 5/5 Sensory Examination Absent sensation to vibration [...] Negative Coordination: finger-to- nose-finger intact bilaterally and tdwn-gd-ljel intact bilaterally. Gait: Patient's gait is normal, [...] which included preparing to see the patient, cdee-uq-mrxg patient care, completing clinical documentation, obtaining and/or reviewing separately obtained history, performing a medically appropriate examination, counseling and educating the patient/family/caregiver, and ordering medications, tests, or procedures. Luz Meeks PA-C [facility] Neurology This document has been created with [...] and warrants attention documented in this encounter [facility] 03-03-2024 History of Present illness Narrative CC: Patient [...] Jacquie Clarke APRN.BRITANY documented in this encounter [facility] 02-04-2024 Instructions Jacquie Clarke APRN.BRITANY - 02/04/2024 [...] in your ears documented in this encounter [facility] 02-04-2024 History of Present illness Narrative CC: [...] suspicious activity was identified. 02/04/2024 by Jacquie Clarke, LIZETH.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 - reviewed SE, medication expectations, required weight [...] Jacquie Clarke APRN.BRITANY documented in this encounter [facility] 01-31-2024 Telephone encounter Note The following approved medication requests have been transmitted electronically. Requested Prescriptions Pending Prescriptions Disp Refills traZODone (DESYREL) 50 mg tablet [Pharmacy Med Name: TRAZODONE 50 MG TABLET] 90 tablet 1 Sig: TAKE 1 TABLET BY MOUTH EVERYDAY AT BEDTIME Balwinder Hernandez APRN.CNP [facility] Work Phone: 01-31-2024 Miscellaneous Notes The following [...] C Canela LPN. documented in this encounter [facility] 01-31-2024 Telephone encounter Note Patient has been [...] advise. Thank you. Maria C Canela LPN. [facility] 01-07-2024 Instructions Fior Alvarez APRN.BRITANY - 01/07/2024 7:47 AM EDT Weight loss medications: Phentermine: stimulant but affordable. Talk with Dr. Davies to see if he feels this would be appropriate to use. Zepbound - once a week injectable. Check website to see what cost would be for you. documented in this encounter [facility] 01-07-2024 History of Present illness Narrative CC: [...] 07/12/2015 Behavioral Health Screening Never done Covid-19 Vaccine() due on 12/04/2023 Pap Testing due on [...] - Instructed patient to contact office or byoay-th-kvwj after-hours promptly should condition worsen or any new symptoms appear. - Counseling [facility] and after hours crisis line 6. Essential [...] Fior Alvarez APRN.CNP documented in this encounter [facility] 11-18-2023 Miscellaneous Notes Wenceslao Molina [facility] called and is notified of providers message. He voices understanding and will get it entered into the system. Jacy Carr, RN Patient has been on this medication since 2006 and tolerating well. Thank you Fior Alvarez APRN.CNP [facility]- asking for clarification on the medication eletriptan (relpax). Reports their records show pt has allergy to sumatriptan (imitrex). Asking provider if you still want pt to take the eletriptan? Please phone ES @ [phone] with reference # [id number] and let them know. documented in this encounter [facility] 11-17-2023 Miscellaneous Notes Ann from [facility] called and is notified of providers message and instructions. She voices understanding and updated their Rx. Did medication update to include in 24 hours. Jacy Carr RN Yes, up to 3 tabs in a 24 hour period. This is the way it has been ordered for over 8 years without any verbiage being changed. Thank you Fior Alvarez APRN.CNP Jerry from [facility] calling to clarify directions on Eletriptan 20 mg tablet rx. Rx says total of 3 tablets on it, asking if this is the maximum amount for a day? Reference number for this is [id number]. Can send new rx with correction. Please advise documented in this encounter [facility] 11-05-2023 Miscellaneous Notes Patient has been identified [...] C Canela LPN. documented in this encounter [facility] 09-02-2023 Note BARIATRIC CARE [facility] Ortega PROGRESS NOTE POST WEIGHT LOSS SURGERY FOLLOW UP Patient: Santos Allan Service Date: 09/02/2023 Patient is 12 month(s) s/p Sleeve Gastrectomy Today's Metrics: Post-Surgical Weight Loss Date: 09/02/23 Height: 5' 6.25 (168.3 cm) (bcc - ht recheck) Weight: 229 lb (104 kg) (bcc) BMI: 36.68 Weight Change: 16.6 lbs Total [...] Date: 08/20/2023 Completed by: Kristina Dillard MA [facility] 09-02-2023 History of Present illness Narrative [facility] SURGICAL PROGRAM [...] Surgeon (Bariatric Surgery) PHILL Mojica as Physician Dressmaker Or Tailor (Bariatrics) BARIATRIC CARE CENTER PROGRESS NOTE POST WEIGHT LOSS SURGERY FOLLOW UP Patient: Santos Allan Service Date: 09/02/2023 Patient is 12 month(s) s/p Sleeve Gastrectomy Today's Metrics: Post-Surgical Weight Loss Date: 09/02/23 Height: 5' 6.25 (168.3 cm) ([facility] - ht recheck) Weight: 229 lb (104 kg) ([facility]) BMI: 36.68 Weight Change: 16.6 lbs [...] or BRUNILDA If YES: Labs completed at [facility]? no If yes see Labs Tab [facility]? yes If yes see Encounters Tab - Orders only - Historical Provider - Date: 08/20/2023 Completed by: Kristina Dillard MA [facility] > 6 MONTH POST-OPERATIVE DIETITIAN VISIT Date: [...] Marilou Clifton RD documented in this encounter [facility] 08-19-2023 History of Present illness Narrative CC: [...] Patient agreeable to treatment plan. Fior Alvarez APRN.BRITANY documented in this encounter [facility] 05-28-2023 Telephone encounter Note DOS 09/02/22 LSG w/ HH JZ TFU BAND 2007 at [place] 11/18/21 Lap removal of gastric band JZ Last OV-04/05/23 with MZ, next 09/02/23 with JZ Per last OV note, pt PPI was d/c'd and pt was instructed to call the office with development of s/s. Will route to PA for review of pt request for rx d/t s/s [facility] 05-28-2023 Miscellaneous Notes DOS 09/02/22 LSG w/ HH JZ TFU BAND 2007 at [place] 11/18/21 Lap removal of gastric band JZ Last OV-04/05/23 with MZ, next 09/02/23 with JZ Per last OV note, pt PPI was d/c'd and pt was instructed to call the office with development of s/s. Will route to PA for review of pt request for rx d/t s/s documented in this encounter [facility] 04-05-2023 Note BARIATRIC CARE [facility] Ortega PROGRESS NOTE POST WEIGHT LOSS SURGERY FOLLOW UP Patient: Santos Allan Service Date: 04/05/2023 Patient is 6 month(s) s/p Sleeve Gastrectomy Today's Metrics: Post-Surgical Weight Loss Date: 04/05/23 Height: 5' 7 (170.2 cm) ([facility]) Weight: 212 lb 6.4 oz (96.3 kg) ([facility]) BMI: 33.26 Weight Change: -16 lbs [...] or BRUNILDA If YES: Labs completed at [facility]? no If yes see Labs Tab Labs completed at Non-[facility] facility? yes If yes see Encounters Tab - Orders only - Historical Provider - Date: 03/25/2023 Completed by: Kristina Dillard MA [facility] 04-05-2023 History of Present illness Narrative [facility] > 6 [...] well overall. Patient instructed to call or [employer] message with any questions or concerns Visit [...] results to: Ana Bolaños MD - [address] [facility] [address] - [phone] And if not done at a [facility] Facility, please send to: [address], [address] Patient Name: Santos Allan - 1965 Order Created by : Kristina Dillard MA Standing Status: Future Standing Expiration Date: 04/05/2024 Folate These orders are set for an approximate date - they can be drawn up to 3 months prior to the Expected Date on this Req. Please send results to: Ana Bolaños MD - [address] [facility] [address] - [phone] And if not done at a [facility] Facility, please send to: [address] [address] Patient Name: Santos Allan - 1965 Order Created by : Kristina Dillard MA Standing Status: Future Standing Expiration Date: 04/05/2024 Iron These orders are set for an approximate date - they can be drawn up to 3 months prior to the Expected Date on this Req. Please send results to: Ana Bolaños MD - [address] [facility] [address] - [phone] And if not done at a [facility] Facility, please send to: [address], [address] Patient Name: Santos Allan - 1965 Order Created by : Kristina Dillard MA Standing Status: Future Standing Expiration Date: 04/05/2024 Ferritin These orders are set for an approximate date - they can be drawn up to 3 months prior to the Expected Date on this Req. Please send results to: Ana Bolaños MD - [address] [facility] [address] - [phone] And if not done at a [facility] Facility, please send to: [place] [address] Patient Name: Santos Allan - 1965 Order Created by : Kristina Dillard MA Standing Status: Future Standing Expiration Date: 04/05/2024 Magnesium These orders are set for an approximate date - they can be drawn up to 3 months prior to the Expected Date on this Req. Please send results to: Ana Bolaños MD - [address] [facility] [address] - [phone] And if not done at a [facility] Facility, please send to: [place] [address] Patient Name: Santos Allan - 1965 Order Created by : Kristina Dillard MA Standing Status: Future Standing Expiration Date: 04/05/2024 Vitamin D Deficiency Screening (Vit D 25) These orders are set for an approximate date - they can be drawn up to 3 months prior to the Expected Date on this Req. Please send results to: Ana Bolaños MD - [address] [facility] [address] - [phone] And if not done at a [facility] Facility, please send to: [place] [address] Patient Name: Santos Allan - 1965 Order Created by : Kristina Dillard MA Standing Status: Future Standing Expiration Date: 04/05/2024 Vitamin B12 These orders are set for an approximate date - they can be drawn up to 3 months prior to the Expected Date on this Req. Please send results to: Ana Bolaños MD - [address] [facility] [address] - [phone] And if not done at a [facility] Facility, please send to: [address], [facility] Patient Name: Santos Allan - 1965 Order Created by : Kristina Dillard MA Standing Status: Future Standing Expiration Date: 04/05/2024 Vitamin B1, whole blood These orders are set for an approximate date - they can be drawn up to 3 months prior to the Expected Date on this Req. Please send results to: Ana Bolaños MD - [facility] [address] - [phone] And if not done at a [facility] Facility, please send to: [place] [address] Patient Name: Santos Allan - 1965 Order Created by : Kristina Dillard MA Standing Status: Future Standing Expiration Date: 04/05/2024 Lipid panel These orders are set for an approximate date - they can be drawn up to 3 months prior to the Expected Date on this Req. Please send results to: Ana Bolaños MD - [address] [facility] [address] - [phone] And if not done at a [facility] Facility, please send to: [place] [address] Patient Name: Santos Allan - 1965 Order Created by : Kristina Dillard MA Standing Status: Future Standing Expiration Date: 04/05/2024 Comprehensive metabolic panel These orders are set for an approximate date - they can be drawn up to 3 months prior to the Expected Date on this Req. Please send results to: Ana Bolaños MD - [address] [facility] [address] - [phone] And if not done at a [facility] Facility, please send to: [address], [address] Patient Name: Santos Allan - 1965 Order Created by : Kristina Dillard MA Standing Status: Future Standing Expiration Date: 04/05/2024 CBC These orders are set for an approximate date - they can be drawn up to 3 months prior to the Expected Date on this Req. Please send results to: Ana Bolaños MD - [address] [facility] [address] - [phone] And if not done at a [facility] Facility, please send to: [address], [address] Patient Name: Santos Allan - 1965 Order Created by : Kristina Dillard MA Standing Status: Future Standing Expiration Date: 04/05/2024 Vitamin D Deficiency Screening (Vit D 25) These orders are set for an approximate date - they can be drawn up to 3 months prior to the Expected Date on this Req. Please send results to: Ana Bolaños MD - [address] [facility] [address] - [phone] And if not done at a [facility] Facility, please send to: [address], [address] Patient Name: Santos Allan - 1965 Order [...] Date: 04/05/23 Height: 5' 7 (170.2 cm) ([facility]) Weight: 212 lb 6.4 oz (96.3 kg) ([facility]) BMI: 33.26 Weight Change: -16 lbs [...] or BRUNILDA If YES: Labs completed at [facility]? no If yes see Labs Tab [facility]? yes If yes see Encounters Tab - Orders only - Historical Provider - Date: 03/25/2023 Completed by: Kristina Dillard MA documented in this encounter [facility] 12-22-2022 Miscellaneous Notes Faxed order, office notes, demographics, and sleep study to: SCOTT name: GUSTAVOJOSE ANGEL SCOTT fax: [phone] SCOTT ph: documented in this encounter [facility] 12-21-2022 History of Present illness Narrative Images from the original note were not included. [facility] Virtual Visit Follow up/ Established patient visit Date of last visit : 09/21/2022 I have communicated my name and active licensure. The patient's identity and physical location were verified at the time of this visit. Either the patient or their legal customer retention representative has been informed of the risks [...] 40.5 Treatment : PAP therapy DME: : Cherelle de la rosa Ph. [phone] PAP History: Current PAP setting: Auto-bilevel PAP [...] or near accidents due to drowsy drivin [place] Sleepiness Scale 11/15/2021 09/14/2022 12/16/2022 Score 10 [...] 10 mg by mouth twice daily. ) trrtz-dn-6-lql-kzf-limbedx-ast (KRILL OIL) 1,188-946-88-50 mg cap Take 1,000 mg by mouth [...] [address] Quinteros. Erika Shah APRN.BRITANY I spent a total of 30 minutes on the date of the service which included preparing to see the patient, completing clinical documentation, counseling and educating the patient/family/caregiver and ordering medications, tests, or procedures. documented in this encounter [facility] 12-04-2022 History of Present illness Narrative CC: [...] 10 mg by mouth twice daily. ) dtdxy-bl-3-hok-rxd-ppxmwjr-ast (KRILL OIL) 1,834-813-72-50 mg cap Take 1,000 mg by mouth [...] - Instructed patient to contact office or uvdom-tq-bhtb after-hours promptly should condition worsen or any new symptoms appear. - Counseling Center [facility] and after hours crisis line 6. [...] Fior Alvarez APRN.CNP documented in this encounter [facility] 12-02-2022 Note BARIATRIC CARE AVELINO Ortega PROGRESS NOTE POST WEIGHT LOSS SURGERY FOLLOW UP Patient: Santos Allan Service Date: 12/02/2022 Patient is 3 month(s) s/p Sleeve Gastrectomy Today's Metrics: Post-Surgical Weight Loss Date: 12/02/22 Height: 5' 7 (170.2 cm) ([facility]) Weight: 228 lb 6.4 oz (104 kg) ([facility]) BMI: 35.77 Weight Change: -20.4 lbs Total [...] or BRUNILDA If YES: Labs completed at [facility]? no If yes see Labs Tab Labs completed at Non-[facility] facility? yes If yes see Encounters Tab - Orders only - Historical Provider - Date: 11/13/2022 SCANNED INTO MEDIA Completed by: Kristina Dillard MA [facility] 12-02-2022 History of Present illness Narrative [...] send results to: Ana Bolaños MD - [address] [facility] [address] - [phone] And if not done at a [facility] Facility, please send to: [place] [address] Patient Name: Santos Gravesfahad - 1965 Order Created by : Kristina Dillard MA Standing Status: Future Standing Expiration Date: 12/03/2023 Folate These orders are set for an approximate date - they can be drawn up to 3 months prior to the Expected Date on this Req. Please send results to: Ana Bolaños MD - [address] [facility] [address] - [phone] And if not done at a [facility] Facility, please send to: [address], [address] Patient Name: Santos Gravesfahad - 1965 Order Created by : Kristina Dillard MA Standing Status: Future Standing Expiration Date: 12/03/2023 Iron These orders are set for an approximate date - they can be drawn up to 3 months prior to the Expected Date on this Req. Please send results to: Ana Bolaños MD - [facility] [address] - [phone] And if not done at a [facility] Facility, please send to: [place] [address] Patient Name: Santos Allan - 1965 Order Created by : Kristina Dillard MA Standing Status: Future Standing Expiration Date: 12/03/2023 Ferritin These orders are set for an approximate date - they can be drawn up to 3 months prior to the Expected Date on this Req. Please send results to: Ana Bolaños MD - [address] [place] [address] - [phone] And if not done at a [facility] Facility, please send to: [place] [address] Patient Name: Santos Allan - 1965 Order Created by : Kristina Dillard MA Standing Status: Future Standing Expiration Date: 12/03/2023 Magnesium These orders are set for an approximate date - they can be drawn up to 3 months prior to the Expected Date on this Req. Please send results to: Ana Bolaños MD - [facility] [address] - [phone] And if not done at a [facility] Facility, please send to: [address], [address] Patient Name: Santos Allan - 1965 Order Created by : Kristina Dillard MA Standing Status: Future Standing Expiration Date: 12/03/2023 Vitamin D 25 hydroxy These orders are set for an approximate date - they can be drawn up to 3 months prior to the Expected Date on this Req. Please send results to: Ana Bolaños MD - [facility] [address] - [phone] And if not done at a [facility] Facility, please send to: [address], [facility] Patient Name: Santos Allan - 1965 Order Created by : Kristina Dillard MA Standing Status: Future Standing Expiration Date: 12/03/2023 Vitamin B12 These orders are set for an approximate date - they can be drawn up to 3 months prior to the Expected Date on this Req. Please send results to: MD Simon Stone [address] [place] [address] - [phone] And if not done at a [facility], please send to: [place] [address] Patient Name: Santos Abarcat - 1965 Order Created by : Kristina Dillard MA Standing Status: Future Standing Expiration Date: 12/03/2023 Vitamin B1, whole blood These orders are set for an approximate date - they can be drawn up to 3 months prior to the Expected Date on this Req. Please send results to: MD Simon Stone [facility] [address] - [phone] And if not done at a [facility] Facility, please send to: [address], [address] Patient Name: Santos Allan - 1965 Order Created by : Kristina Dillard MA Standing Status: Future Standing Expiration Date: 12/03/2023 Lipid panel These orders are set for an approximate date - they can be drawn up to 3 months prior to the Expected Date on this Req. Please send results to: MD Simon Stone [facility] [address] - [phone] And if not done at a [facility] Facility, please send to: [address], [address] Patient Name: Santos Allan - 1965 Order Created by : Kristina Dillard MA Standing Status: Future Standing Expiration Date: 12/03/2023 Comprehensive metabolic panel These orders are set for an approximate date - they can be drawn up to 3 months prior to the Expected Date on this Req. Please send results to: Ana Bolaños MD - [address] [facility] [address] - [phone] And if not done at a [facility] Facility, please send to: [address], [address] Patient Name: Santos Allan - 1965 Order Created by : Kristina Dillard MA Standing Status: Future Standing Expiration Date: 12/03/2023 CBC These orders are set for an approximate date - they can be drawn up to 3 months prior to the Expected Date on this Req. Please send results to: Ana Bolaños MD - [address] [facility] [address] - [phone] And if not done at a [facility] Facility, please send to: [address], [address] Patient Name: Santos Allan - 1965 Order [...] mouth in the morning. [DISCONTINUED] nystatin (Mycostatin) 867704 UNIT/ML suspension Swish and spit 5 mL [...] by mouth in the morning. NYSTATIN (MYCOSTATIN) 968208 UNIT/ML SUSPENSION Swish and spit 5 mL [...] FOLLOW UP Patient: Santos Gravesfahad Service Date: 12/02/2022 Patient is 3 month(s) s/p Sleeve Gastrectomy Today's Metrics: Post-Surgical Weight Loss Date: 12/02/22 Height: 5' 7 (170.2 cm) ([facility]) Weight: 228 lb 6.4 oz (104 kg) ([facility]) BMI: 35.77 Weight Change: -20.4 lbs Total [...] or BRUNILDA If YES: Labs completed at [facility]? no If yes see Labs Tab Labs completed at Non-[facility] facility? yes If yes see Encounters Tab - Orders only - Historical Provider - Date: 11/13/2022 SCANNED INTO MEDIA Completed by: Kristina Dillard MA [facility] 3 MONTH POST-OPERATIVE DIETITIAN VISIT Date: 12/02/22 [...] Lorena Alexis RD documented in this encounter [facility] 10-23-2022 Miscellaneous Notes May at Dr Ortiz's [...] can prescribe for this. Thank you Fior Alvaerz APRN.CNP May at [facility] called and is notified of providers message. [...] month of meloxicam? Thank you Fior Alvarez APRN.BRITANY Alcira from Dr. Ortiz's office at [facility] and states that Dr. Ortiz was wanting to prescribe patient meloxicam 15 mg for 30 days, however patient had told him that she cannot take oral NSAIDS. Dr. Ortiz asking if provider can prescribe medication in injection form? Please review and advise, Sherry Roman RN documented in this encounter [facility] 10-08-2022 Note BARIATRIC CARE AVELINO Ortega PROGRESS [...] or BRUNILDA If YES: Labs completed at [facility]? no If yes see Labs Tab Labs completed at Non[facility] facility? Yes, [facility] If yes see Encounters Tab - Orders only - Historical Provider - Date: Completed by: Mckenzie Samayoa [facility] 10-08-2022 History of Present illness Narrative Images from the original note were not included. [facility] SURGICAL PROGRAM [...] 25 MG 24 HR TABLET NYSTATIN (MYCOSTATIN) 956348 UNIT/ML SUSPENSION Swish and spit 5 mL [...] by mouth in the morning. nystatin (Mycostatin) 269963 UNIT/ML suspension Swish and spit 5 mL [...] for the next visit, labs from 09/29/22 ([facility]) were reviewed and are within normal limits. [...] Surgeon (Bariatric Surgery) PHILL Mojica as Physician Dressmaker Or Tailor (Bariatrics) [facility]ENTER PROGRESS NOTE POST [...] Labs Tab Labs completed at Non-[facility] facility? Yes, [facility] If yes see Encounters Tab - Orders only - Historical Provider - Date: Completed by: Mckenzie Samayoa [facility] 1 MONTH POST-OPERATIVE DIETITIAN VISIT Date: 10/08/22 [...] Marilou Clifton RD documented in this encounter [facility] 10-02-2022 Telephone encounter Note carmella Braswell [facility] 10-02-2022 Miscellaneous Notes carmella Braswell DOS 09/02/22 [facility] at [facility] PD IN FULL. MB 11/18/21 Lap removal of gastric band J 09/29/2022 Paper labs Potassium: 3.1 (L) Vitamin [...] sign. Thank you! documented in this encounter [facility] 10-01-2022 Telephone encounter Note DOS 09/02/22 [facility] TFU BAND 2008 at [place] [facility] PD IN FULL. MB 11/18/21 Lap removal [...] week. Order pending. Please sign. Thank you! [facility] Work Phone: 10-01-2022 Miscellaneous Notes I called patient and gave him my phone number to call him. Regards, Ana Bolaños MD May with [facility] calls to let provider know that Dr. Teodoro Ortiz would like to discuss patient with provider. 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 Ortiz would like to treat patient with medication but prior to treating he would like to discuss with provider. Dr. Ortiz requesting a call back at [phone]. Samra Bolanos RN documented in this encounter [facility] 09-21-2022 History of Present illness Narrative ESTABLISHED PATIENT VISIT (Virtual Visit with Video) For this virtual visit, the patient has been identified by name and (MRN and photo identification as well if available). Those taking part in visit: Patient with physician via [employer]gent[employer]. Consent for this visit received from patient. [...] from the summer of 2021 (scanned in [facility]). Per records, pt with GI surgery during [...] 10 mg by mouth twice daily. ) codpc-xp-2-pdk-bbu-xsrhsag-ast (KRILL OIL) 1,750-610-22-50 mg cap Take 1,000 mg by mouth [...] 5 (Mild Depression) - 1 (None-Minimal Depression) [place] Sleepiness Scale 11/15/2021 08/28/2022 09/14/2022 Score 10 [...] which included preparing to see the patient, noze-ig-vyxk patient care, completing clinical documentation, obtaining and/or reviewing separately obtained history, performing a medically appropriate examination, counseling and educating the patient/family/caregiver, ordering medications, tests, or procedures, and communicating results to the patient/family/caregiver. documented in this encounter [facility] 09-10-2022 History of Present illness Narrative Images from the original note were not included. [facility] SURGICAL PROGRAM [...] send results to: Ana Bolaños MD - [address] [facility] [address] - [phone] And if not done at a [facility] Facility, please send to: [place] [id number] Patient Name: Santos Allan - 1965 Order Created by : Mckenzie Samayoa Standing Status: Future Standing Expiration Date: 09/10/2023 Folate These orders are set for an approximate date - they can be drawn up to 3 months prior to the Expected Date on this Req. Please send results to: Ana Bolaños MD - [address] [facility] [id number] - [phone] And if not done at a [facility] Facility, please send to: [address], [address] Patient Name: Santos Allan - 1965 Order Created by : Mckenzie Samayoa Standing Status: Future Standing Expiration Date: 09/10/2023 Iron These orders are set for an approximate date - they can be drawn up to 3 months prior to the Expected Date on this Req. Please send results to: Ana Bolaños MD - [address] [facility] [address] - [phone] And if not done at a [facility] Facility, please send to: [address], [address] Patient Name: Santos Allan - 1965 Order Created by : Mckenzie Samayoa Standing Status: Future Standing Expiration Date: 09/10/2023 Ferritin These orders are set for an approximate date - they can be drawn up to 3 months prior to the Expected Date on this Req. Please send results to: Ana Bolaños MD - [address] [facility] [address] - [phone] And if not done at a [facility] Facility, please send to: [address], [address] Patient Name: Santos Allan - 1965 Order Created by : Mckenzie Samayoa Standing Status: Future Standing Expiration Date: 09/10/2023 Magnesium These orders are set for an approximate date - they can be drawn up to 3 months prior to the Expected Date on this Req. Please send results to: Ana Bolaños MD - [address] [facility] [address] - [phone] And if not done at a [facility] Facility, please send to: [address], [address] Patient Name: Santos Allan - 1965 Order Created by : Mckenzie Samayoa Standing Status: Future Standing Expiration Date: 09/10/2023 Vitamin B12 These orders are set for an approximate date - they can be drawn up to 3 months prior to the Expected Date on this Req. Please send results to: Ana Bolaños MD - [address] [facility] [address] - [phone] And if not done at a [facility] Facility, please send to: [address] [address] Patient Name: Santos Allan - 1965 Order Created by : Mckenzie Samayoa Standing Status: Future Standing Expiration Date: 09/10/2023 Comprehensive metabolic panel These orders are set for an approximate date - they can be drawn up to 3 months prior to the Expected Date on this Req. Please send results to: Ana Bolaños MD - [address] [facility] [address] - [phone] And if not done at a [facility] Facility, please send to: [address], [address] Patient Name: Santos Allan - 1965 Order Created by : Mckenzie Samayoa Standing Status: Future Standing Expiration Date: 09/10/2023 CBC These orders are set for an approximate date - they can be drawn up to 3 months prior to the Expected Date on this Req. Please send results to: Ana Bolaños MD - [address] [facility] [address] - [phone] And if not done at a [facility] Facility, please send to: [address], [address] Patient Name: Santos Allan - 1965 Order [...] by mouth in the morning. nystatin (Mycostatin) 874716 UNIT/ML suspension Swish and spit 5 mL [...] Medications: Patient's Medications New Prescriptions NYSTATIN (MYCOSTATIN) 152537 UNIT/ML SUSPENSION Swish and spit 5 mL [...] Surgeon (Bariatric Surgery) PHILL Mojica as Physician Dressmaker Or Tailor (Bariatrics) [facility] POST WEIGHT LOSS SURGERY FOLLOW UP - 1 WEEK Rooming Note Patient: Santos Allan Service Date: 09/10/2022 Patient is 1 week s/p Lap Sleeve Gastrectomy Pre-Surgical Weight Loss Initial Height: 5' 7 (170.2 cm) Initial Weight: 271 lb (123 kg) Initial BMI: 42.44 [place] Body Weight: 135 lb (61.2 kg) Surgery [...] Change: -8.8 lbs Completed by: Mckenzie Samayoa [facility] 1 WEEK [...] Marilou Clifton RD documented in this encounter [facility] 08-28-2022 History of Present illness Narrative CC: [...] Having a stomach sleeve bariatric surgery at [facility] next Wednesday.Has had 2 different banding surgeries in the past that the band would slip. She has follow up scheduled post surgery closely following with surgery team, psychiatry, and her show girl. REVIEW OF SYSTEMS General: no fevers, no [...] Take 1 tablet at approximately 7 PM. xfznu-em-6-eiw-wcc-rlhzvdg-ast (KRILL OIL) 1,451-199-15-50 mg cap Take 1,000 mg by mouth [...] Fior Alvarez APRN.CNP documented in this encounter [facility] 04-09-2022 Miscellaneous Notes Orders for mask fitting and request EARL notes faxed to [facility]. DWAYNE Verdugo documented in this encounter [facility] 04-06-2022 History of Present illness Narrative ESTABLISHED PATIENT VISIT CHIEF COMPLAINT: Follow Up HISTORY OF PRESENT ILLNESS: Snatos Allan is a 56 year old female, [...] 1 tablet by mouth three times daily. rtgvr-qp-1-ned-zsv-qjbszwh-ast (KRILL OIL) 1,303-412-26-50 mg cap Take 1,000 mg by mouth [...] which included preparing to see the patient, ishf-dx-gqbk patient care, completing clinical documentation, obtaining and/or reviewing separately obtained history, performing a medically appropriate examination, counseling and educating the patient/family/caregiver, ordering medications, tests, or procedures, independently interpreting results (not separately reported) and communicating results to the patient/family/caregiver. documented in this encounter [facility] 03-11-2022 Miscellaneous Notes TC to patient to verify DME company for PAP compliance. Pt uses [facility]. Information updated in pt chart. DWAYNE Verdugo documented in this encounter [facility] 02-17-2022 Miscellaneous Notes Received BIPAP and supplies order form from [facility]. The form requires the provider's signature. Nurse will forward form to the provider for signature. documented in this encounter [facility] 02-06-2022 Miscellaneous Notes Information faxed. Janette Collazo LPN Will fax information to [facility]. Spoke to Edilson Lizama at [facility] and aware information being faxed to [phone] Attn: Allegra Emmanuel As requested. Janette Collazo LPN Allegra santizo [facility] - called regarding paperwork not received. Ie: Clinicals, sleep study, orders, demographics, etc. Was this faxed to [phone]? Please fax again. documented in this encounter [facility] 02-06-2022 Miscellaneous Notes Please see telephone encounter dated 02/04/2022. Janette Collazo LPN documented in this encounter [facility] 01-26-2022 Miscellaneous Notes New order for PAP settings faxed to [facility] at #[phone]. DWAYNE Verdugo documented in this encounter [facility] 01-23-2022 Miscellaneous Notes Emailed PSG Interpretation report with PAP Titration from [facility] Sleep [facility] to Dr Quinteros to address. documented in this encounter [facility] 01-09-2022 Miscellaneous Notes Patient has been identified [...] C Garcia LPN documented in this encounter [facility] 12-26-2021 Miscellaneous Notes This staff will fax the requested documents to [employer] to the fax number provided [employer] ([email or web address]) calls with patient also on the line stating that they are helping the patient to try to get her sleep study pre cert approved. [employer] is asking for office to send some information to them via fax. Patient gives verbal permission for this. [employer] asking for clinical notes documenting need for additional study and copy of study that was completed in November. Fax # to send to is . They ask that every page of fax contain patient name and along with Case # [id number]. documented in this encounter [facility] 12-17-2021 History of Present illness Narrative Patient's [...] Alexander Quinteros MD documented in this encounter [facility] 11-18-2021 History of Present illness Narrative Pt and family verbalized understanding of recovery instructions, pt verbalized a readiness to be discharged home. Pt discharged home via wheelchair accompanied by RN/volunteer. Pt has had all their belongings returned to them at discharge Pt received from OR via cart, spont. Resp. With STRUCTURES ASSEMBLER in attendance. Placed on monitor. Monitor alarms on in PACU Belongings with patient. documented in this encounter [employer] Phone: 11-18-2021 Hospital Discharge instructions Gavin Moctezuma MD - 11/18/2021 Images from the original note were not included. [facility] - Surgery [facility] Physicians Surgery DISCHARGE INSTRUCTIONS FOR DR. MOCTEZUMA Thank you very much for allowing me to participate in your care, it is truly a privilege. Below please see discharge orders that will help you during your recovery. Please do not hesitate to call the office during the day at [phone] for any questions. After hours, the same number will allow you to reach the on-call surgeon. Please remove the Steri-Strips 5 days after surgery. Please remove the Steri-Strips as instructed 5 days after your date of surgery, remove them on Tuesday, November 23, 2021. This includes any clear [...] Moctezuma M.D., F.A.C.S. documented in this [facility]: 11-14-2021 Hospital Discharge instructions Juany Martinez RN - 11/14/2021 Zack: Enter through Door number 2 Registration department is located here Patient will be escorted to [facility] Zack does not open before 6am Shower with hibicleandre Please bring your [facility] Information folder on the day of [...] PHASE II . ALERT SPONT RESP. WITH STRUCTURES ASSEMBLER IN ATTENDANCE documented in this encounter [facility] Work Phone: 07-22-2015 History of Past i llness Narrative Problem Noted Date Resolved Date Hyperlipidemia 07/22/2015 08/11/2016 Gastroparesis 01/18/2015 03/02/2016 Gastroparesis 01/02/2015 01/02/2015 Diabetes mellitus type 2, controlled, without co mplications 12/27/2014 01/20/2016 DIABETES MELLITUS ADULT ONSET 01/18/2007 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, [address], [place], [place] HYPERTENSION BENIGN 01/18/2007 08/11/2016 HYPERLIPIDEMIA 01/18/2007 08/11/2016 Hypothyroidism 01/18/2007 03/02/2016 EDEMA EXTREMITIES 01/18/2007 08/11/2016 Anemia 02/22/2019 Last Assessment & Plan: Currently stable documented as of this encounter (statuses as of 12/16/2021) [facility]11-[facility]2015 History of Past illness Narrative* Problem Noted Date Resolved Date Hyperlipidemia 07/22/2015 08/11/2016 Gastroparesis 01/18/2015 03/02/2016 Gastroparesis 01/02/2015 01/02/2015 Diabetes mellitus type 2, controlled, without co mplications 12/27/2014 01/20/2016 DIABETES MELLITUS ADULT ONSET 01/18/2007 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, [address], [place], [place] HYPERTENSION BENIGN 01/18/2007 08/11/2016 HYPERLIPIDEMIA 01/18/2007 08/11/2016 Hypothyroidism 01/18/2007 03/02/2016 EDEMA EXTREMITIES 01/18/2007 08/11/2016 Anemia 02/22/2019 Last Assessment & Plan: Currently stable documented as of this encounter (statuses as of 12/17/2021) [facility]-09[facility]2015 History of Past illness Narrative* Problem Noted Date Resolved Date Hyperlipidemia 07/22/2015 08/11/2016 Gastroparesis 01/18/2015 03/02/2016 Gastroparesis 01/02/2015 01/02/2015 Diabetes mellitus type 2, controlled, without co mplications 12/27/2014 01/20/2016 DIABETES MELLITUS ADULT ONSET 01/18/2007 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, [address], [place], [place] HYPERTENSION BENIGN 01/18/2007 08/11/2016 HYPERLIPIDEMIA 01/18/2007 08/11/2016 Hypothyroidism 01/18/2007 03/02/2016 EDEMA EXTREMITIES 01/18/2007 08/11/2016 Anemia 02/22/2019 Last Assessment & Plan: Currently stable documented as of this encounter (statuses as of 12/30/2021) [facility] History of Past illness Narrative* Problem Noted Date Resolved Date Hyperlipidemia 07/22/2015 08/11/2016 Gastroparesis 01/18/2015 03/02/2016 Gastroparesis 01/02/2015 01/02/2015 Diabetes mellitus type 2, controlled, without co mplications 12/27/2014 01/20/2016 DIABETES MELLITUS ADULT ONSET 01/18/2007 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, [address], [place], [place] HYPERTENSION BENIGN 01/18/2007 08/11/2016 HYPERLIPIDEMIA 01/18/2007 08/11/2016 Hypothyroidism 01/18/2007 03/02/2016 EDEMA EXTREMITIES 01/18/2007 08/11/2016 Anemia 02/22/2019 Last Assessment & Plan: Currently stable documented as of this encounter (statuses as of 01/12/2022) [facility] History of Past illness Narrative* Problem Noted Date Resolved Date Hyperlipidemia 07/22/2015 08/11/2016 Gastroparesis 01/18/2015 03/02/2016 Gastroparesis 01/02/2015 01/02/2015 Diabetes mellitus type 2, controlled, without co mplications 12/27/2014 01/20/2016 DIABETES MELLITUS ADULT ONSET 01/18/2007 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, [address], [place], [place] HYPERTENSION BENIGN 01/18/2007 08/11/2016 HYPERLIPIDEMIA 01/18/2007 08/11/2016 Hypothyroidism 01/18/2007 03/02/2016 EDEMA EXTREMITIES 01/18/2007 08/11/2016 Anemia 02/22/2019 Last Assessment & Plan: Currently stable documented as of this encounter (statuses as of 01/26/2022) [facility] History of Past illness Narrative* Problem Noted Date Resolved Date Hyperlipidemia 07/22/2015 08/11/2016 Gastroparesis 01/18/2015 03/02/2016 Gastroparesis 01/02/2015 01/02/2015 Diabetes mellitus type 2, controlled, without co mplications 12/27/2014 01/20/2016 DIABETES MELLITUS ADULT ONSET 01/18/2007 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, [address], [place], [place] HYPERTENSION BENIGN 01/18/2007 08/11/2016 HYPERLIPIDEMIA 01/18/2007 08/11/2016 Hypothyroidism 01/18/2007 03/02/2016 EDEMA EXTREMITIES 01/18/2007 08/11/2016 Anemia 02/22/2019 Last Assessment & Plan: Currently stable documented as of this encounter (statuses as of 01/26/2022) [facility] History of Past illness Narrative* Problem Noted Date Resolved Date Hyperlipidemia 07/22/2015 08/11/2016 Gastroparesis 01/18/2015 03/02/2016 Gastroparesis 01/02/2015 01/02/2015 Diabetes mellitus type 2, controlled, without co mplications 12/27/2014 01/20/2016 DIABETES MELLITUS ADULT ONSET 01/18/2007 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, [address], [place], [place] HYPERTENSION BENIGN 01/18/2007 08/11/2016 HYPERLIPIDEMIA 01/18/2007 08/11/2016 Hypothyroidism 01/18/2007 03/02/2016 EDEMA EXTREMITIES 01/18/2007 08/11/2016 Anemia 02/22/2019 Last Assessment & Plan: Currently stable documented as of this encounter (statuses as of 02/06/2022) [facility] History of Past illness Narrative* Problem Noted Date Resolved Date Hyperlipidemia 07/22/2015 08/11/2016 Gastroparesis 01/18/2015 03/02/2016 Gastroparesis 01/02/2015 01/02/2015 Diabetes mellitus type 2, controlled, without co mplications 12/27/2014 01/20/2016 DIABETES MELLITUS ADULT ONSET 01/18/2007 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, [address], [place] HYPERTENSION BENIGN 01/18/2007 08/11/2016 HYPERLIPIDEMIA 01/18/2007 08/11/2016 Hypothyroidism 01/18/2007 03/02/2016 EDEMA EXTREMITIES 01/18/2007 08/11/2016 Anemia 02/22/2019 Last Assessment & Plan: Currently stable documented as of this encounter (statuses as of 02/06/2022) [facility]2015 History of Past illness Narrative* Problem Noted Date Resolved Date Hyperlipidemia 07/22/2015 08/11/2016 Gastroparesis 01/18/2015 03/02/2016 Gastroparesis 01/02/2015 01/02/2015 Diabetes mellitus type 2, controlled, without co mplications 12/27/2014 01/20/2016 DIABETES MELLITUS ADULT ONSET 01/18/2007 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, [address], [place], [place] HYPERTENSION BENIGN 01/18/2007 08/11/2016 HYPERLIPIDEMIA 01/18/2007 08/11/2016 Hypothyroidism 01/18/2007 03/02/2016 EDEMA EXTREMITIES 01/18/2007 08/11/2016 Anemia 02/22/2019 Last Assessment & Plan: Currently stable documented as of this encounter (statuses as of 02/17/2022) [facility]2015 History of Past illness Narrative* Problem Noted Date Resolved Date Hyperlipidemia 07/22/2015 08/11/2016 Gastroparesis 01/18/2015 03/02/2016 Gastroparesis 01/02/2015 01/02/2015 Diabetes mellitus type 2, controlled, without co mplications 12/27/2014 01/20/2016 DIABETES MELLITUS ADULT ONSET 01/18/2007 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, [address], [place] HYPERTENSION BENIGN 01/18/2007 08/11/2016 HYPERLIPIDEMIA 01/18/2007 08/11/2016 Hypothyroidism 01/18/2007 03/02/2016 EDEMA EXTREMITIES 01/18/2007 08/11/2016 Anemia 02/22/2019 Last Assessment & Plan: Currently stable documented as of this encounter (statuses as of 02/19/2022) [facility] History of Past illness Narrative* Problem Noted Date Resolved Date Hyperlipidemia 07/22/2015 08/11/2016 Gastroparesis 01/18/2015 03/02/2016 Gastroparesis 01/02/2015 01/02/2015 Diabetes mellitus type 2, controlled, without co mplications 12/27/2014 01/20/2016 DIABETES MELLITUS ADULT ONSET 01/18/2007 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, [address], [place] HYPERTENSION BENIGN 01/18/2007 08/11/2016 HYPERLIPIDEMIA 01/18/2007 08/11/2016 Hypothyroidism 01/18/2007 03/02/2016 EDEMA EXTREMITIES 01/18/2007 08/11/2016 Anemia 02/22/2019 Last Assessment & Plan: Currently stable documented as of this encounter (statuses as of 02/27/2022) [facility] History of Past illness Narrative* Problem Noted Date Resolved Date Hyperlipidemia 07/22/2015 08/11/2016 Gastroparesis 01/18/2015 03/02/2016 Gastroparesis 01/02/2015 01/02/2015 Diabetes mellitus type 2, controlled, without co mplications 12/27/2014 01/20/2016 DIABETES MELLITUS ADULT ONSET 01/18/2007 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, [address], [place] HYPERTENSION BENIGN 01/18/2007 08/11/2016 HYPERLIPIDEMIA 01/18/2007 08/11/2016 Hypothyroidism 01/18/2007 03/02/2016 EDEMA EXTREMITIES 01/18/2007 08/11/2016 Anemia 02/22/2019 Last Assessment & Plan: Currently stable documented as of this encounter (statuses as of 03/11/2022) [facility]2015 History of Past illness Narrative* Problem Noted Date Resolved Date Hyperlipidemia 07/22/2015 08/11/2016 Gastroparesis 01/18/2015 03/02/2016 Gastroparesis 01/02/2015 01/02/2015 Diabetes mellitus type 2, controlled, without co mplications 12/27/2014 01/20/2016 DIABETES MELLITUS ADULT ONSET 01/18/2007 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, [address], [place], [place] HYPERTENSION BENIGN 01/18/2007 08/11/2016 HYPERLIPIDEMIA 01/18/2007 08/11/2016 Hypothyroidism 01/18/2007 03/02/2016 EDEMA EXTREMITIES 01/18/2007 08/11/2016 Anemia 02/22/2019 Last Assessment & Plan: Currently stable documented as of this encounter (statuses as of 04/06/2022) [facility]-2015 History of Past illness Narrative* Problem Noted Date Resolved Date Hyperlipidemia 07/22/2015 08/11/2016 Gastroparesis 01/18/2015 03/02/2016 Gastroparesis 01/02/2015 01/02/2015 Diabetes mellitus type 2, controlled, without co mplications 12/27/2014 01/20/2016 DIABETES MELLITUS ADULT ONSET 01/18/2007 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, [address], [place] HYPERTENSION BENIGN 01/18/2007 08/11/2016 HYPERLIPIDEMIA 01/18/2007 08/11/2016 Hypothyroidism 01/18/2007 03/02/2016 EDEMA EXTREMITIES 01/18/2007 08/11/2016 Anemia 02/22/2019 Last Assessment & Plan: Currently stable documented as of this encounter (statuses as of 04/09/2022) [facility]-2015 History of Past illness Narrative* Problem Noted Date Resolved Date Hyperlipidemia 07/22/2015 08/11/2016 Gastroparesis 01/18/2015 03/02/2016 Gastroparesis 01/02/2015 01/02/2015 Diabetes mellitus type 2, controlled, without co mplications 12/27/2014 01/20/2016 DIABETES MELLITUS ADULT ONSET 01/18/2007 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, [address], [place] HYPERTENSION BENIGN 01/18/2007 08/11/2016 HYPERLIPIDEMIA 01/18/2007 08/11/2016 Hypothyroidism 01/18/2007 03/02/2016 EDEMA EXTREMITIES 01/18/2007 08/11/2016 Anemia 02/22/2019 Last Assessment & Plan: Currently stable documented as of this encounter (statuses as of 08/14/2022) [facility] History of Past illness Narrative* Problem Noted Date Resolved Date Hyperlipidemia 07/22/2015 08/11/2016 Gastroparesis 01/18/2015 03/02/2016 Gastroparesis 01/02/2015 01/02/2015 Diabetes mellitus type 2, controlled, without co mplications 12/27/2014 01/20/2016 DIABETES MELLITUS ADULT ONSET 01/18/2007 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, [address], [place] HYPERTENSION BENIGN 01/18/2007 08/11/2016 HYPERLIPIDEMIA 01/18/2007 08/11/2016 Hypothyroidism 01/18/2007 03/02/2016 EDEMA EXTREMITIES 01/18/2007 08/11/2016 Anemia 02/22/2019 Last Assessment & Plan: Currently stable documented as of this encounter (statuses as of 08/17/2022) [facility] History of Past illness Narrative* Problem Noted Date Resolved Date Hyperlipidemia 07/22/2015 08/11/2016 Gastroparesis 01/18/2015 03/02/2016 Gastroparesis 01/02/2015 01/02/2015 Diabetes mellitus type 2, controlled, without co mplications 12/27/2014 01/20/2016 DIABETES MELLITUS ADULT ONSET 01/18/2007 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, [address], [place] HYPERTENSION BENIGN 01/18/2007 08/11/2016 HYPERLIPIDEMIA 01/18/2007 08/11/2016 Hypothyroidism 01/18/2007 03/02/2016 EDEMA EXTREMITIES 01/18/2007 08/11/2016 Anemia 02/22/2019 Last Assessment & Plan: Currently stable documented as of this encounter (statuses as of 08/28/2022) [facility]-2015 History of Past illness Narrative* Problem Noted Date Resolved Date Hyperlipidemia 07/22/2015 08/11/2016 Gastroparesis 01/18/2015 03/02/2016 Gastroparesis 01/02/2015 01/02/2015 Diabetes mellitus type 2, controlled, without co mplications 12/27/2014 01/20/2016 DIABETES MELLITUS ADULT ONSET 01/18/2007 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, [address], [place] HYPERTENSION BENIGN 01/18/2007 08/11/2016 HYPERLIPIDEMIA 01/18/2007 08/11/2016 Hypothyroidism 01/18/2007 03/02/2016 EDEMA EXTREMITIES 01/18/2007 08/11/2016 Anemia 02/22/2019 Last Assessment & Plan: Currently stable documented as of this encounter (statuses as of 09/21/2022) [facility]2015 History of Past illness Narrative* Problem Noted Date Resolved Date Hyperlipidemia 07/22/2015 08/11/2016 Gastroparesis 01/18/2015 03/02/2016 Gastroparesis 01/02/2015 01/02/2015 Diabetes mellitus type 2, controlled, without co mplications 12/27/2014 01/20/2016 DIABETES MELLITUS ADULT ONSET 01/18/2007 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, [address], [place] HYPERTENSION BENIGN 01/18/2007 08/11/2016 HYPERLIPIDEMIA 01/18/2007 08/11/2016 Hypothyroidism 01/18/2007 03/02/2016 EDEMA EXTREMITIES 01/18/2007 08/11/2016 Anemia 02/22/2019 Last Assessment & Plan: Currently stable documented as of this encounter (statuses as of 10/08/2022) [facility]2015 History of Past illness Narrative* Problem Noted Date Resolved Date Hyperlipidemia 07/22/2015 08/11/2016 Gastroparesis 01/18/2015 03/02/2016 Gastroparesis 01/02/2015 01/02/2015 Diabetes mellitus type 2, controlled, without co mplications 12/27/2014 01/20/2016 DIABETES MELLITUS ADULT ONSET 01/18/2007 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, [address], [place] HYPERTENSION BENIGN 01/18/2007 08/11/2016 HYPERLIPIDEMIA 01/18/2007 08/11/2016 Hypothyroidism 01/18/2007 03/02/2016 EDEMA EXTREMITIES 01/18/2007 08/11/2016 Anemia 02/22/2019 Last Assessment & Plan: Currently stable documented as of this encounter (statuses as of 11/10/2022) [facility] History of Past illness Narrative* Problem Noted Date Resolved Date Hyperlipidemia 07/22/2015 08/11/2016 Gastroparesis 01/18/2015 03/02/2016 Gastroparesis 01/02/2015 01/02/2015 Diabetes mellitus type 2, controlled, without co mplications 12/27/2014 01/20/2016 DIABETES MELLITUS ADULT ONSET 01/18/2007 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, [address], [place] HYPERTENSION BENIGN 01/18/2007 08/11/2016 HYPERLIPIDEMIA 01/18/2007 08/11/2016 Hypothyroidism 01/18/2007 03/02/2016 EDEMA EXTREMITIES 01/18/2007 08/11/2016 Anemia 02/22/2019 Last Assessment & Plan: Currently stable documented as of this encounter (statuses as of 12/04/2022) [facility] History of Past illness Narrative* Problem Noted Date Resolved Date Hyperlipidemia 07/22/2015 08/11/2016 Gastroparesis 01/18/2015 03/02/2016 Gastroparesis 01/02/2015 01/02/2015 Diabetes mellitus type 2, controlled, without co mplications 12/27/2014 01/20/2016 DIABETES MELLITUS ADULT ONSET 01/18/2007 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, [address], [place], [place] HYPERTENSION BENIGN 01/18/2007 08/11/2016 HYPERLIPIDEMIA 01/18/2007 08/11/2016 Hypothyroidism 01/18/2007 03/02/2016 EDEMA EXTREMITIES 01/18/2007 08/11/2016 Anemia 02/22/2019 Last Assessment & Plan: Currently stable documented as of this encounter (statuses as of 12/22/2022) [facility] History of Past illness Narrative* Problem Noted Date Resolved Date Hyperlipidemia 07/22/2015 08/11/2016 Gastroparesis 01/18/2015 03/02/2016 Gastroparesis 01/02/2015 01/02/2015 Diabetes mellitus type 2, controlled, without co mplications 12/27/2014 01/20/2016 DIABETES MELLITUS ADULT ONSET 01/18/2007 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, [address], [place] HYPERTENSION BENIGN 01/18/2007 08/11/2016 HYPERLIPIDEMIA 01/18/2007 08/11/2016 Hypothyroidism 01/18/2007 03/02/2016 EDEMA EXTREMITIES 01/18/2007 08/11/2016 Anemia 02/22/2019 Last Assessment & Plan: Currently stable documented as of this encounter (statuses as of 12/23/2022) [facility] History of Past illness Narrative* Problem Noted Date Diagnosed Date Resolved Date Hyperlipidemia 07/22/2015 08/11/2016 Gastroparesis 01/18/2015 03/02/2016 Gastroparesis 01/02/2015 01/02/2015 Diabetes mellitus type 2, co ntrolled, without complications 12/27/2014 01/20/2016 DIABETES MELLITUS ADULT ONSET 01/18/2007 04/28/2012 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, [address], [place], [place] HYPERTENSION BENIGN 01/18/2007 08/11/20 16 HYPERLIPIDEMIA 01/18/2007 08/11/2016 Hypothyroidism 01/18/2007 03/02/2016 EDEMA EXTREMITIES 01/18/2007 08/11/2016 Anemia 02/22/2019 Last Assessment & Plan: Currently stable documented as of this encounter (statuses as of 07/26/2023) [facility] History of Past illness Narrative* Problem Noted Date Diagnosed Date Resolved Date Hyperlipidemia 07/22/2015 08/11/2016 Gastroparesis 01/18/2015 03/02/2016 Gastroparesis 01/02/2015 01/02/2015 Diabetes mellitus type 2, co ntrolled, without complications 12/27/2014 01/20/2016 DIABETES MELLITUS ADULT ONSET 01/18/2007 04/28/2012 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, [address], [place], [place] HYPERTENSION BENIGN 01/18/2007 08/11/20 16 HYPERLIPIDEMIA 01/18/2007 08/11/2016 Hypothyroidism 01/18/2007 03/02/2016 EDEMA EXTREMITIES 01/18/2007 08/11/2016 Anemia 02/22/2019 Last Assessment & Plan: Currently stable documented as of this encounter (statuses as of 08/03/2023) [facility] History of Past illness Narrative* Problem Noted Date Diagnosed Date Resolved Date Hyperlipidemia 07/22/2015 08/11/2016 Gastroparesis 01/18/2015 03/02/2016 Gastroparesis 01/02/2015 01/02/2015 Diabetes mellitus type 2, co ntrolled, without complications 12/27/2014 01/20/2016 DIABETES MELLITUS ADULT ONSET 01/18/2007 04/28/2012 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, [address], [place], [place] HYPERTENSION BENIGN 01/18/2007 08/11/20 16 HYPERLIPIDEMIA 01/18/2007 08/11/2016 Hypothyroidism 01/18/2007 03/02/2016 EDEMA EXTREMITIES 01/18/2007 08/11/2016 Anemia 02/22/2019 Last Assessment & Plan: Currently stable documented as of this encounter (statuses as of 08/06/2023) [facility] History of Past illness Narrative* Problem Noted Date Diagnosed Date Resolved Date Hyperlipidemia 07/22/2015 08/11/2016 Gastroparesis 01/18/2015 03/02/2016 Gastroparesis 01/02/2015 01/02/2015 Diabetes mellitus type 2, co ntrolled, without complications 12/27/2014 01/20/2016 DIABETES MELLITUS ADULT ONSET 01/18/2007 04/28/2012 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, [address], [place], [place] HYPERTENSION BENIGN 01/18/2007 08/11/20 16 HYPERLIPIDEMIA 01/18/2007 08/11/2016 Hypothyroidism 01/18/2007 03/02/2016 EDEMA EXTREMITIES 01/18/2007 08/11/2016 Anemia 02/22/2019 Last Assessment & Plan: Currently stable documented as of this encounter (statuses as of 08/19/2023) [facility] History of Past illness Narrative* Problem Noted Date Diagnosed Date Resolved Date Hyperlipidemia 07/22/2015 08/11/2016 Gastroparesis 01/18/2015 03/02/2016 Gastroparesis 01/02/2015 01/02/2015 Diabetes mellitus type 2, co ntrolled, without complications 12/27/2014 01/20/2016 DIABETES MELLITUS ADULT ONSET 01/18/2007 04/28/2012 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, [address], [place] HYPERTENSION BENIGN 01/18/2007 08/11/20 16 HYPERLIPIDEMIA 01/18/2007 08/11/2016 Hypothyroidism 01/18/2007 03/02/2016 EDEMA EXTREMITIES 01/18/2007 08/11/2016 Anemia 02/22/2019 Last Assessment & Plan: Currently stable documented as of this encounter (statuses as of 11/05/2023) [facility] History of Past illness Narrative* Problem Noted Date Diagnosed Date Resolved Date Hyperlipidemia 07/22/2015 08/11/2016 Gastroparesis 01/18/2015 03/02/2016 Gastroparesis 01/02/2015 01/02/2015 Diabetes mellitus type 2, co ntrolled, without complications 12/27/2014 01/20/2016 DIABETES MELLITUS ADULT ONSET 01/18/2007 04/28/2012 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, [address], [place], [place] HYPERTENSION BENIGN 01/18/2007 08/11/20 16 HYPERLIPIDEMIA 01/18/2007 08/11/2016 Hypothyroidism 01/18/2007 03/02/2016 EDEMA EXTREMITIES 01/18/2007 08/11/2016 Anemia 02/22/2019 Last Assessment & Plan: Currently stable documented as of this encounter (statuses as of 11/17/2023) [facility] History of Past illness Narrative* Problem Noted Date Diagnosed Date Resolved Date Hyperlipidemia 07/22/2015 08/11/2016 Gastroparesis 01/18/2015 03/02/2016 Gastroparesis 01/02/2015 01/02/2015 Diabetes mellitus type 2, co ntrolled, without complications 12/27/2014 01/20/2016 DIABETES MELLITUS ADULT ONSET 01/18/2007 04/28/2012 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, [address], [place] HYPERTENSION BENIGN 01/18/2007 08/11/20 16 HYPERLIPIDEMIA 01/18/2007 08/11/2016 Hypothyroidism 01/18/2007 03/02/2016 EDEMA EXTREMITIES 01/18/2007 08/11/2016 Anemia 02/22/2019 Last Assessment & Plan: Currently stable documented as of this encounter (statuses as of 11/18/2023) [facility] History of Past illness Narrative* Problem Noted Date Diagnosed Date Resolved Date Hyperlipidemia 07/22/2015 08/11/2016 Gastroparesis 01/18/2015 03/02/2016 Gastroparesis 01/02/2015 01/02/2015 Diabetes mellitus type 2, co ntrolled, without complications 12/27/2014 01/20/2016 DIABETES MELLITUS ADULT ONSET 01/18/2007 04/28/2012 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, [address], [place], [place] HYPERTENSION BENIGN 01/18/2007 08/11/20 16 HYPERLIPIDEMIA 01/18/2007 08/11/2016 Hypothyroidism 01/18/2007 03/02/2016 EDEMA EXTREMITIES 01/18/2007 08/11/2016 Anemia 02/22/2019 Last Assessment & Plan: Currently stable documented as of this encounter (statuses as of 12/24/2023) [facility] Deficiency of multiple nutrient elements Other nutritional deficiency Obstructive sleep apnea Obstructive sleep apnea (adult) (pediatric) Essential hypertension Unspecified essential hypertension Hyperlipidemia, unspecified hyperlipidemia type Class 3 severe obesity due to excess calories with serious comorbidity and body mass index (BMI) of 40.0 to 44.9 in adult ([facility]) Back pain, unspecified back location, unspecified [...] of right thumb documented in this encounter [facility] Work Phone: Evaluation noteNo assessment information available [facility] Work Phone: Evaluation note* Diagnosis REMIGIO (obstructive sleep apnea)- Primary Obstructive sleep apnea (adult) (pediatric) [facility]* Diagnosis REMIGIO (obstructive sleep apnea)- Primary Obstructive sleep apnea (adult) (pediatric) [facility]* Diagnosis Medication management Encounter for long-term (current) use of other medications [facility]* Diagnosis REMIGIO (obstructive sleep apnea) Obstructive sleep apnea (adult) (pediatric) documented in this encounter [facility]* Diagnosis Obstructive sleep apnea (adult) (pediatric)- Primary Migraine without status migrainosus, not intractable, unspecified migraine type Insomnia, unspecified type Class 3 severe obesity with body mass index (BMI) of 40.0 to 44.9 in adult, unspecified obesity type, unspecified whether serious comorbidity present (HCC) documented in this encounter [facility]* Diagnosis Medication management Encounter for long-term (current) use of other medications Acquired hypothyroidism Unspecified hypothyroidism documented in this encounter [facility]* Diagnosis Encounter for screening mammogram for breast cancer documented in this encounter [facility] note* Diagnosis Essential hypertension- Primary Unspecified essential hypertension Prediabetes Other abnormal glucose Mixed hyperlipidemia Acquired hypothyroidism Unspecified hypothyroidism Bipolar I disorder, most recent episode depressed (HCC) Bipolar I disorder, most recent episode (or current) depressed, unspecified documented [facility] this encounter [facility]* Diagnosis Obstructive sleep apnea (adult) (pediatric)- Primary Insomnia, unspecified type Class 3 severe obesity with body mass index (BMI) of 40.0 to 44.9 in adult, unspecified obesity type, unspecified whether serious comorbidity present (HCC) documented in this encounter [facility] note* Diagnosis Primary hypertension- Primary Unspecified essential hypertension REMIGIO on CPAP Deficiency of multiple nutrient elements Other nutritional deficiency Class 2 severe obesity due to excess calories with serious comorbidity and body mass index (BMI) of 35.0 to 35.9 in adult (HCC) High cholesterol Pure hypercholesterolemia documented in this encounter [facility] note* Diagnosis Essential hypertension- Primary Unspecified essential [...] unspecified Mixed hyperlipidemia documented in this encounter [facility] note* Diagnosis Obstructive sleep apnea syndrome- Primary Obstructive sleep apnea (adult) (pediatric) Insomnia, unspecified type Difficulty using biphasic positive airway pressure (BiPAP) machine documented in this encounter [facility]* Diagnosis Primary hypertension- Primary Unspecified essential hypertension REMIGIO on CPAP Deficiency of multiple nutrient elements Other nutritional deficiency Hyperlipidemia, unspecified hyperlipidemia type Class 1 obesity due to excess calories with serious comorbidity and body mass index (BMI) of 33.0 to 33.9 in adult High vitamin D level Hypervitaminosis D documented in this encounter [facility] note* Diagnosis Encounter for screening mammogram for breast cancer documented in this encounter [facility] note* Diagnosis Acquired hypothyroidism Unspecified hypothyroidism documented in this encounter [facility]* Diagnosis Burning sensation of feet- Primary Disturbance of skin sensation documented in this encounter [facility] note* Diagnosis REMIGIO on CPAP Primary hypertension Unspecified essential hypertension Deficiency of multiple nutrient elements Other nutritional deficiency Hyperlipidemia, unspecified hyperlipidemia type Class 2 severe obesity due to excess calories with serious comorbidity and body mass index (BMI) of 36.0 to 36.9 in adult documented in this encounter [facility] note* Diagnosis Migraine without aura and without status migrainosus, not intractable Migraine without aura, without mention of intractable migraine without mention of status migrainosus documented in this encounter [facility] note* Diagnosis Migraine without aura and without status migrainosus, not intractable Migraine without aura, without mention of intractable migraine without mention of status migrainosus documented in this encounter [facility] note* Diagnosis Acquired hypothyroidism Unspecified hypothyroidism documented in this encounter [facility]* Diagnosis Class 2 severe obesity with [...] Unspecified essential hypertension documented in this encounter [facility]* Diagnosis Essential hypertension Unspecified essential hypertension Mixed hyperlipidemia documented in this encounter [facility] note* Diagnosis Class 2 obesity due to excess calories without serious comorbidity with body mass index (BMI) of 39.0 to 39.9 in adult- Primary documented in this encounter [facility] note* Diagnosis Class 2 obesity due to excess calories without serious comorbidity with body mass index (BMI) of 38.0 to 38.9 in adult- Primary documented in this encounter [facility]* Diagnosis Neuropathy- Primary Mononeuritis of unspecified site documented in this encounter [facility] note* Diagnosis Class 2 obesity due to excess calories without serious comorbidity with body mass index (BMI) of 39.0 to 39.9 in adult- Primary documented in this encounter [facility] note* Diagnosis Headache(784.0)- Primary Headache DIABETES [...] dental involvement (HCC) documented in this encounter [facility] note* Diagnosis Headache(784.0)- Primary Headache DIABETES [...] 39.9 in adult documented in this encounter [facility] note* Diagnosis Headache(784.0)- Primary Headache DIABETES [...] of unspecified site documented in this encounter [facility] note* Diagnosis Headache(784.0)- Primary Headache DIABETES [...] hypertension Hypokalemia Hypopotassemia documented in this encounter [facility]* Diagnosis Hypokalemia- Primary Hypopotassemia Elevated vitamin B12 level [facility] Diagnosis Encounter for postoperative care- Primary Primary hypertension Unspecified essential hypertension Hyperlipidemia, unspecified hyperlipidemia type Hypothyroidism, unspecified type REMIGIO (obstructive sleep apnea) Obstructive sleep apnea (adult) (pediatric) Class 2 obesity due to excess calories with body mass index (BMI) of 38.0 to 38.9 in adult, unspecified whether serious comorbidity present Deficiency of multiple nutrient elements Other nutritional deficiency [facility] Diagnosis Encounter for postoperative care- Primary GERD without esophagitis Esophageal reflux Deficiency of multiple nutrient elements Other nutritional deficiency REMIGIO (obstructive sleep apnea) Obstructive sleep apnea (adult) (pediatric) Hyperlipidemia, unspecified hyperlipidemia type Primary hypertension Unspecified essential hypertension Morbid obesity with BMI of 40.0-44.9, adult ([facility]) [facility] Diagnosis Encounter for other preprocedural examination- Primary Encounter for other preprocedural examination [facility] Diagnosis Headache(784.0)- Primary Headache DIABETES MELLITUS [...] for breast cancer documented in this encounter [facility] note* Diagnosis Headache(784.0)- Primary Headache DIABETES [...] hypothyroidism Unspecified hypothyroidism documented in this encounter [facility] note* Diagnosis Headache(784.0)- Primary Headache DIABETES [...] for breast cancer documented in this encounter [facility] note* Diagnosis Headache(784.0)- Primary Headache DIABETES [...] Unspecified essential hypertension documented in this encounter [facility] note* Diagnosis Headache(784.0)- Primary Headache DIABETES [...] both feet- Primary documented in this encounter [facility] note* Diagnosis Headache(784.0)- Primary Headache DIABETES [...] of both feet documented in this encounter [facility] note* Diagnosis Headache(784.0)- Primary Headache DIABETES [...] apnea (adult) (pediatric) documented in this encounter [facility] note* Diagnosis Headache(784.0)- Primary Headache DIABETES [...] hematuria, site unspecified documented in this encounter [facility] note* Diagnosis Headache(784.0)- Primary Headache DIABETES [...] right lower quadrant documented in this encounter [facility] note* Diagnosis Headache(784.0)- Primary Headache DIABETES [...] of body structure documented in this encounter [facility] note* Diagnosis Headache(784.0)- Primary Headache DIABETES [...] of body structure [facility] Diagnosis Headache(784.0)- Primary Headache DIABETES MELLITUS [...] of the cervix documented [facility]* Diagnosis Headache(784.0)- Primary Headache DIABETES MELLITUS [...] of status migrainosus [facility]* Diagnosis Headache(784.0)- Primary Headache DIABETES MELLITUS [...] of skin sensation documented in this encounter [facility] note* Diagnosis Headache(784.0)- Primary Headache DIABETES [...] hypothyroidism Unspecified hypothyroidism documented in this encounter [facility] note* Diagnosis Headache(784.0)- Primary Headache DIABETES [...] Hematuria, unspecified type documented in this encounter [facility] note* Diagnosis Headache(784.0)- Primary Headache DIABETES [...] (pediatric) Hypokalemia Hypopotassemia documented in this encounter [facility] note* Diagnosis Headache(784.0)- Primary Headache DIABETES [...] Postmenopausal atrophic vaginitis documented in this encounter [facility] note* Diagnosis Headache(784.0)- Primary Headache DIABETES [...] of unspecified site documented in this encounter [facility] note* Diagnosis Headache(784.0)- Primary Headache DIABETES [...] 2 diabetes mellitus with unspecified complications (HCC) documented in this encounter [facility] note* Diagnosis Headache(784.0)- Primary Headache DIABETES [...] Hypokalemia- Primary Hypopotassemia documented in this encounter [facility] note* Diagnosis Headache(784.0)- Primary Headache DIABETES [...] Preoperative examination, unspecified documented in this encounter [facility] note* Diagnosis Headache(784.0)- Primary Headache DIABETES [...] leiomyoma, unspecified location documented in this encounter [facility] note* Diagnosis Headache(784.0)- Primary Headache DIABETES [...] Microscopic hematuria- Primary documented in this encounter [facility] note* Diagnosis Headache(784.0)- Primary Headache DIABETES [...] of other medications documented in this encounter [facility] note* Diagnosis Headache(784.0)- Primary Headache DIABETES [...] Extremity edema Edema [facility]* Diagnosis Headache(784.0)- Primary Headache DIABETES MELLITUS [...] Postmenopausal atrophic vaginitis [facility]* Diagnosis Headache(784.0)- Primary Headache DIABETES MELLITUS [...] single bacterial disease documented in this encounter [facility] Discharge instructions* Instructions* Joi Srivastava PA [...] [place] [employer] [address] [place] [address] [facility] [address] [place] [address] Referral ID Status Reason Start Date Expiration Date Visits Requested Visits Authorized [id number] Pending Review Auto-Generat ed Referral 08/13/2022 09/12/2023 1 1 [facility] for referral (narrative)* Diagnostic Procedure Only (Routine) - Pending Review Specialty Diagnoses / Procedures Referred By Raquel quesada Referred To Contact [facility] Diagnoses Encounter for screening mammogram for breast cancer Procedures ADALBERTO SCREENING SCREENING MAMMOGRAPHY BI 2-VIEW BREAST INC Ana Brown MD [address] [place] [address] [facility] [address] [place] [address] Referral ID Status Reason Start Date Expiration Date Visits Requested Visits Authorized [id number] Pending Review Auto-Generat ed Referral 07/21/2023 08/19/2024 1 1 [facility] for referral (narrative)* Diagnostic Procedure Only (Routine) - New Request Specialty Diagnoses / Procedures Referred By Raquel quesada Referred To Contact [facility] Diagnoses Encounter for screening mammogram for breast cancer Procedures ADALBERTO SCREENING SCREENING MAMMOGRAPHY BI 2-VIEW [employer]AST [employer] Ana Brown MD [address] [place] [address] [facility] [address] [place] [address] Referral ID Status Reason Start Date Expiration Date Visits Requested Visits Authorized [id number] New Request Auto-Generat ed Referral 05/09/2024 06/08/2025 1 1 * Diagnostic Procedure Only (Routine) - Authorized Specialty Diagnoses / Procedures Referred By Raquel t Referred To Contact [facility] Diagnoses Encounter for screening mammogram for breast cancer Procedures ADALBERTO SCREENING W CHUCK SCREENING DIGITAL BREAST TOMOSYNTHESIS BI SCREENING MAMMOGRAPHY BI 2-VIEW [employer] INC Ana Brown MD [address] [place] [address] [facility] [address] [place] [phone] Referral ID Status Reason Start Date Expiration Date Visits Requested Visits Authorized [id number] Authorized Auto-Generat ed Referral 05/09/2024 06/08/2025 1 1 [facility] for referral (narrative)* Diagnostic Procedure Only (Routine) - New Request Specialty Diagnoses / Procedures Referred By Raquel quesada Referred To Contact [facility] Diagnoses Encounter for gynecological examination (general) (routine) without abnormal findings Encounter for screening mammogram for breast cancer Procedures ADALBERTO SCREENING W CHUCK SCREENING DIGITAL BREAST TOMOSYNTHESIS BI SCREENING MAMMOGRAPHY BI 2-VIEW BREAST INC Katarina Valentine APRN.CNP [address] [place] [address] [facility] [address] [place] [phone] Referral ID Status Reason Start Date Expiration Date Visits Requested Visits Authorized [id number] New Request Auto-Generat ed Referral 10/05/2025 1 1 [facility] for visit Narrative* Diagnostic Procedure Only (Routine) - Closed Specialty Diagnoses / Procedures Referred By Raquel quesada Referred To Contact [facility] Diagnoses Encounter for screening mammogram for breast cancer Procedures ADALBERTO SCREENING W CHUCK SCREENING DIGITAL BREAST TOMOSYNTHESIS BI SCREENING MAMMOGRAPHY BI 2-VIEW [employer]AST INC Ana Brown MD [address] [place] [address] Phone: tel: fax: [facility] [address] [place] [address] Referral ID Status Reason Start Date Expiration Date V isits Requested Visits Authorized [id number] Closed Auto-Generate d Referral 05/09/2024 06/08/2025 1 1 [facility] for visit Narrative* Diagnostic Procedure Only (Routine) - Closed Specialty Diagnoses / Procedures Referred By Contac t Referred To Contact XR IMAGING Diagnoses Paresthesia of both feet Procedures XR LUMBAR GENERAL 3V AP/LAT/L5-S1 RADEX SPINE LUMBOSACRAL 2/3 VIEWS Lucille Brandt PA-C [address] [facility] [address] [place] [address] Phone: tel: fax: [place] [address] Referral ID Status Reason Start Date Expiration Date V isits Requested Visits Authorized [id number] Closed Auto-Generate d Referral 01/22/2025 02/21/2026 1 1 [facility] for visit Narrative* MRI/CT (Urgent) - Closed Specialty Diagnoses / Procedures Referred By Contac t Referred To Contact CT IMAGING Diagnoses Right lower quadrant abdominal pain Procedures CT ABD/PEL W IVCON CT ABD & PELVIS W/CONTRAST Fior Alvarez, LIZETH.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 [address] [place] [address] Phone: tel: fax: [place] [address] Referral ID Status Reason Start Date Expiration Date V isits Requested Visits Authorized [id number] Closed Auto-Generat ed Referral Patient Cleared - Admin/Chairm an/Director advise to proceed or did not respond 01/26/2025 09/12/2025 1 1 [facility] for visit Narrative* MRI/CT (Urgent) - Closed Specialty Diagnoses / Procedures Referred By Contac t Referred To Contact CT IMAGING Diagnoses Right lower quadrant abdominal pain Procedures CT ABD/PEL W IVCON CT ABD & PELVIS W/CONTRAST Fior Alvarez, ARMORED CAR 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.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 [address] [place] [address] Phone: tel: fax: [place] [address] Referral ID Status Reason Start Date Expiration Date V isits Requested Visits Authorized [id number] Closed Auto-Generat ed Referral Patient Cleared - Admin/Chairm an/Director advise to proceed or did not respond 01/26/2025 09/12/2025 1 1 [facility] Advance Directives No Advanced Directives Records FoundDocuments on File Type Date Recorded Patient Nursing Unit Manager Expl anation ACP-Advance Directive ACP-Power of Roller Picker Latest Code Status on File Code Status Date Activated Date Inactivated Comments Full Code 10/13/2019 7:10 AM 10/13/2019 12:13 PM Latest Code Status on File Code Status Date Activated Date Inactivated Comments Full Code 11/18/2021 10:58 AM Full Code 10/13/2019 7:10 AM 10/13/2019 12:13 PM Documents on File Type Date Recorded Patient Nursing Unit Manager Expl anation Advance Directives and Living Will Power of Roller Picker Latest Code Status on File Code Status Date Activated Date Inactivated Comments Full Code 10/13/2019 7:10 AM Advance Directive Response Recorded Date/ Time Advance Directives No December 06, 2 015 8:14am Living Will No 2014 8:14am Power of Roller Picker No December 06 15 8:14am Documents on File Type Date Recorded Patient Nursing Unit Manager Expl anation Advance Directive(s) 03/18/2016 12:26 PM Latest Code Status on File Code Status Date Activated Date Inactivated Comments Full Code 11/18/2021 10:58 AM 11/18/2021 5:45 PM Advance Directive Response Recorded Date/ Time Advance Directives No December 06, 2 015 7:14am Living Will No 2014 7:14am Power of Roller Picker No December 06 15 7:14am Latest Code Status on File Code [...] 39.0 to 39.9 in adult Jacquie Clarke, ARMORED CAR 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.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 [address] [place] [address] Referral ID Status Reason Start Date Expiration Date V isits Requested Visits Authorized [id number] Pending Review 1 1 Specialty Diagnoses / Procedures Referred By Contac t Referred To Contact Diagnoses Class 2 obesity due to excess calories without serious comorbidity with body mass index (BMI) of 39.0 to 39.9 in adult Fior Alvarez, ARMORED CAR 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.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 [address] [place] [address] Referral ID Status Reason Start Date Expiration Date V isits Requested Visits Authorized [id number] Authorized 1 1 Specialty Diagnoses / Procedures Referred By Contac t Referred To Contact Diagnoses Class 2 obesity due to excess calories without serious comorbidity with body mass index (BMI) of 39.0 to 39.9 in adult Obstructive sleep apnea syndrome Hyperlipidemia, unspecified hyperlipidemia type Essential hypertension Ana Bolaños MD [address] [place] [address] Referral ID Status Reason Start Date Expiration Date Visits Re quested Visits Authorized [id number] Closed 1 1 Additional Source Comments Care Teams (unrecognized sec tion and content) Supervisor Cd Area Relationship Specialty Start Date End Date Ana Bolaños MD [address] [place], [place] [id number] PCP - General Internal Medicine 08/24/19 Supervisor Cd Area Relationship Specialty Start Date End Date Ana Bolaños MD [address] [place], [place] [id number] PCP - General Internal Medicine 08/24/19 Supervisor Cd Area Relationship Specialty Start Date End Date Ana Bolaños MD [address] [facility] [place] [address] PCP - General Internal Medicine 08/24/19 Supervisor Cd Area Relationship Specialty Start Date End Date Ana Bolaños MD [address] [place] [address] PCP - General Internal Medicine 08/24/19 Supervisor Cd Area Relationship Specialty Start Date End Date Ana Bolaños MD [address] [place] [address] PCP - General Internal Medicine 08/24/19 Supervisor Cd Area Relationship Specialty Start Date End Date Ana Bolaños MD [address] [facility] [place] [address] PCP - General Internal Medicine 06/25/16 Supervisor Cd Area Relationship Specialty Start Date End Date Ana Bolaños MD [address] [facility] [place] [address] PCP - General Internal Medicine 06/25/16 Supervisor Cd Area Relationship Specialty Start Date End Date Ana Bolaños MD [address] [facility] [place] [address] PCP - General Internal Medicine 08/24/19 Supervisor Cd Area Relationship Specialty Start Date End Date Ana Bolaños MD [address] [facility] [place] [address] PCP - General Internal Medicine 06/25/16 Supervisor Cd Area Relationship Specialty Start Date End Date Ana Bolaños MD [address] [place] [address] PCP - General Internal Medicine 08/24/19 Supervisor Cd Area Relationship Specialty Start Date End Date Ana Bolaños MD [address] [facility] [place] [address] PCP - General Internal Medicine 06/25/16 Supervisor Cd Area Relationship Specialty Start Date End Date Ana Bolaños MD [address] [place] [address] PCP - General Internal Medicine 06/25/16 Supervisor Cd Area Relationship Specialty Start Date End Date Ana Bolaños MD [address] [place] [address] PCP - General Internal Medicine 06/25/16 Supervisor Cd Area Relationship Specialty Start Date End Date Ana Bolaños MD [address] [place] [address] PCP - General Internal Medicine 06/25/16 Supervisor Cd Area Relationship Specialty Start Date End Date Ana Bolaños MD [address] [place] [address] PCP - General Internal Medicine 08/24/19 Supervisor Cd Area Relationship Specialty Start Date End Date Ana Bolaños MD [address] [facility] [place] [address] PCP - General Internal Medicine 06/25/16 Supervisor Cd Area Relationship Specialty Start Date End Date Ana Bolaños MD [address] [facility] [place] [address] PCP - General Internal Medicine 06/25/16 Supervisor Cd Area Relationship Specialty Start Date End Date Ana Bolaños MD [address] [facility] [place] [address] PCP - General Internal Medicine 06/25/16 Team [...] Provider Active PHILL MOJICA Attending Provider Active Supervisor Cd Area Relationship Specialty Start Date End Date Ana Bolaños MD [address] [place] [address] PCP - General Internal Medicine 06/25/16 Team Status: Inactive Member Role Status Dates Dr. Ana Bolaños MD Primary Care Provider Active EDILSON PENN MD Attending Provider, Referring Prov ider Active Dr. Gavin Moctezuma MD Other Provider Active Supervisor Cd Area Relationship Specialty Start Date End Date Ana oBlaños MD [address] [place] [address] PCP - General 08/24/19 Gavin Moctezuma MD [address] [place] [address] Surgeon Bariatric Surgery 08/05/22 Garret Burt PA [address] [address] [place] [address] Physician Dressmaker Or Tailor Bariatrics 08/05/22 Supervisor Cd Area Relationship Specialty Start Date End Date Ana Bolaños MD [address] [place] [address] PCP - General Internal Medicine 06/25/16 Supervisor Cd Area Relationship Specialty Start Date End Date Ana Bolaños MD [address] [place] [address] PCP - General Internal Medicine 06/25/16 Supervisor Cd Area Relationship Specialty Start Date End Date Ana Bolaños MD [address] [place] [address] PCP - General 08/24/19 Gavin Moctezuma MD [address] [place] [address] Surgeon Bariatric Surgery 08/05/22 Garret Burt PA [address] [place] [address] Physician Dressmaker Or Tailor Bariatrics 08/05/22 Supervisor Cd Area Relationship Specialty Start Date End Date Ana Bolaños MD [address] [place] [address] PCP - General 08/24/19 Gavin Moctezuma MD [address] [place] [address] Surgeon Bariatric Surgery 08/05/22 Garret Burt PA [address] [place] [address] Physician Dressmaker Or Tailor Bariatrics 08/05/22 Supervisor Cd Area Relationship Specialty Start Date End Date Ana Bolaños MD [address] [place] [address] PCP - General Internal Medicine 06/25/16 Supervisor Cd Area Relationship Specialty Start Date End Date Ana Bolaños MD [address] [place] [address] PCP - General Internal Medicine 06/25/16 Supervisor Cd Area Relationship Specialty Start Date End Date Ana Bolaños MD [address] [place] [address] PCP - General Internal Medicine 06/25/16 Supervisor Cd Area Relationship Specialty Start Date End Date Ana Bolaños MD [address] [facility] [place] [address] PCP - General Internal Medicine 06/25/16 Supervisor Cd Area Relationship Specialty Start Date End Date Ana Bolaños MD [address] [facility] [place] [address] PCP - General 08/24/19 Gavin Moctezuma MD [address] [place], [place] [id number] Surgeon Bariatric Surgery 08/05/22 Garret Burt PA [address] [place] [address] Physician Dressmaker Or Tailor Bariatrics 08/05/22 Supervisor Cd Area Relationship Specialty Start Date End Date Ana Bolaños MD [address] [place] [address] PCP - General Internal Medicine 06/25/16 Supervisor Cd Area Relationship Specialty Start Date End Date Ana Bolaños MD [address] [place] [address] PCP - General Internal Medicine 06/25/16 Supervisor Cd Area Relationship Specialty Start Date End Date Ana Bolaños MD [address] [place] [address] PCP - General Internal Medicine 06/25/16 Supervisor Cd Area Relationship Specialty Start Date End Date Ana Bolaños MD [address] [place] [address] PCP - General Internal Medicine 06/25/16 Supervisor Cd Area Relationship Specialty Start Date End Date Ana Bolaños MD [address] [facility] [place] [address] PCP - General Internal Medicine 06/25/16 Supervisor Cd Area Relationship Specialty Start Date End Date Ana Bolaños MD [address] [facility] [place] [address] PCP - General Internal Medicine 06/25/16 Supervisor Cd Area Relationship Specialty Start Date End Date Ana Bolaños MD [address] [facility] [place] [address] PCP - General Internal Medicine 06/25/16 Supervisor Cd Area Relationship Specialty Start Date End Date Ana Bolaños MD [address] [facility] [place] [address] PCP - General Internal Medicine 06/25/16 Supervisor Cd Area Relationship Specialty Start Date End Date Ana Bolaños MD [address] [facility] [place] [address] PCP - General Internal Medicine 06/25/16 Supervisor Cd Area Relationship Specialty Start Date End Date Ana Bolaños MD [address] [facility] [place] [address] PCP - General Internal Medicine 06/25/16 Supervisor Cd Area Relationship Specialty Start Date End Date Ana Bolaños MD [address] [facility] [place] [address] PCP - General Internal Medicine 06/25/16 Supervisor Cd Area Relationship Specialty Start Date End Date Ana Bolaños MD [address] [facility] [place] [address] PCP - General Internal Medicine 06/25/16 Supervisor Cd Area Relationship Specialty Start Date End Date Ana Bolaños MD [address] [place] [address] PCP - General Internal Medicine 06/25/16 Supervisor Cd Area Relationship Specialty Start Date End Date Ana Bolaños MD [address] [place] [address] PCP - General Internal Medicine 06/25/16 Supervisor Cd Area Relationship Specialty Start Date End Date Ana Bolaños MD [address] [place] [address] PCP - General Internal Medicine 06/25/16 Supervisor Cd Area Relationship Specialty Start Date End Date Ana Bolaños MD [address] [place] [address] PCP - General 08/24/19 Gavin Moctezuma MD [address] [place] [address] Surgeon Bariatric Surgery 08/05/22 Garret Burt PA [address] [place] [address] Physician Dressmaker Or Tailor Bariatrics 08/05/22 Supervisor Cd Area Relationship Specialty Start Date End Date Ana Bolaños MD [address] [place] [address] PCP - General 08/24/19 Gavin Moctezuma MD [address] [place] [address] Surgeon Bariatric Surgery 08/05/22 Garret Burt PA [address] [place] [address] Physician Dressmaker Or Tailor Bariatrics 08/05/22 Supervisor Cd Area Relationship Specialty Start Date End Date Ana Bolaños MD [address] [place] [address] PCP - General 08/24/19 Gavin Moctezuma MD [address] [place], [place] [id number] Surgeon Bariatric Surgery 08/05/22 Garret Burt PA [address] [place], [place] [id number] Physician Dressmaker Or Tailor Bariatrics 08/05/22 Supervisor Cd Area Relationship Specialty Start Date End Date Ana Bolaños MD [address] [place] [address] PCP - General Internal Medicine 06/25/16 Edilson Lu PA-C [address] [place], [place] [address] [phone] Steel Fabricator Family Medicine 08/20/24 Fior Alvarez APRN.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 [address] [place] [address] Steel Fabricator Internal Medicine 08/20/24 Angelique Bradford PA-C [address] [place] [address] Steel Fabricator Family Medicine 08/20/24 Supervisor Cd Area Relationship Specialty Start Date End Date nAa Bolaños MD [address] [place] [address] PCP - General Internal Medicine 06/25/16 Edilson Lu PA-C [address] [place] [address] Steel Fabricator Family Medicine 08/20/24 Fior Alvarez APRN.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 [address] [facility] [place] [address] Steel Fabricator Internal Medicine 08/20/24 Angelique Bradford PA-C [address] [facility] [place] [address] Steel Fabricator Family Medicine 08/20/24 Supervisor Cd Area Relationship Specialty Start Date End Date Ana Bolaños MD [address] [facility] [place] [address] PCP - General Internal Medicine 06/25/16 Edilson Lu PA-C [address] [place] [address] Steel Fabricator Family Medicine 08/20/24 Fior Alvarez APRN.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 [address] [place] [address] Steel Fabricator Internal Medicine 08/20/24 Angelique Bradford PA-C [address] [facility] [place] [address] Steel Fabricator Family Medicine 08/20/24 Supervisor Cd Area Relationship Specialty Start Date End Date Ana Bolaños MD [address] [facility] [place] [address] PCP - General Internal Medicine 06/25/16 Edilson Lu PA-C [address] [place] [address] Steel Fabricator Family Medicine 08/20/24 Fior Alvarez APRN.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 [address] [place] [address] Steel Fabricator Internal Medicine 08/20/24 Angelique Bradford PA-C [address] [place] [address] Steel Fabricator Family [facility] 08/20/24 Supervisor Cd Area Relationship Specialty Start Date End Date Ana Bolaños MD [address] [place] [address] PCP - General Internal Medicine 06/25/16 Edilson Lu PA-C [address] [place] [address] Steel Fabricator Family Medicine 08/20/24 Fior Alvarez APRN.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 [address] [place] [address] Steel Fabricator Internal Medicine 08/20/24 Angelique Bradford PA-C [address] [place] [address] Steel Fabricator Family [facility] 08/20/24 Supervisor Cd Area Relationship Specialty Start Date End Date Ana Bolañso MD [address] [place] [address] PCP - General Internal Medicine 06/25/16 Edilson Lu PA-C [address] [place] [address] Steel Fabricator Family Medicine 08/20/24 Fior Alvarez APRN.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 [address] [place] [address] Steel Fabricator Internal Medicine 08/20/24 Angelique Brafdord PA-C [address] [facility] [place] [address] Steel Fabricator Family Medicine 08/20/24 Supervisor Cd Area Relationship Specialty Start Date End Date Ana Bolaños MD [address] [facility] [place] [address] PCP - General Internal Medicine 06/25/16 Fior Alvarez APRN.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 [address] [place] [address] Steel Fabricator Internal Medicine 08/20/24 Supervisor Cd Area Relationship Specialty Start Date End Date Ana Bolaños MD [address] [facility] [place] [address] PCP - General Internal Medicine 06/25/16 Edilson Lu PA-C [address] [place] [address] Steel Fabricator Family Medicine 08/20/24 12/03/24 Fior Alvarez APRN.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 [address] [place] [address] Steel Fabricator Internal Medicine 08/20/24 Angelique Bradford PA-C [address] [facility] [place] [address] Steel Fabricator Family Medicine 08/20/24 12/03/24 Supervisor Cd Area Relationship Specialty Start Date End Date Ana Bolaños MD [address] [facility] [place] [address] PCP - General Internal Medicine 06/25/16 Fior Alvarez APRN.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 [address] [place] [address] Steel Fabricator Internal Medicine 08/20/24 Supervisor Cd Area Relationship Specialty Start Date End Date Ana Bolaños MD [address] [place] [address] PCP - General Internal Medicine 06/25/16 Fior Alvarez APRN.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 [address] [place] [address] Steel Fabricator Internal Medicine 08/20/24 Supervisor Cd Area Relationship Specialty Start Date End Date Ana Bolaños MD [address] [place] [address] PCP - General Internal Medicine 06/25/16 Fior Alvarez APRN.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 [address] [place] [address] Steel Fabricator Internal Medicine 08/20/24 Supervisor Cd Area Relationship Specialty Start Date End Date Ana Bolaños MD [address] [place] [address] PCP - General Internal Medicine 06/25/16 Fior Alvarez, ARMORED CAR 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.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 [address] [place] [address] Steel Fabricator Internal Medicine 08/20/24 Supervisor Cd Area Relationship Specialty Start Date End Date Ana Bolaños MD [address] [place] [address] PCP - General Internal Medicine 06/25/16 Fior Alvarez ARMORED CAR 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.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 [address] [place] [address] Steel Fabricator Internal Medicine 08/20/24 Supervisor Cd Area Relationship Specialty Start Date End Date Ana Bolaños MD [address] [place] [address] PCP - General Internal Medicine 06/25/16 Fior Alvarez APRN.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 [address] [place] [address] Steel Fabricator Internal Medicine 08/20/24 Supervisor Cd Area Relationship Specialty Start Date End Date Ana Bolaños MD [address] [place] [address] PCP - General Internal Medicine 06/25/16 Fior Alvarez APRN.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 [address] [place] [address] Steel Fabricator Internal Medicine 08/20/24 Supervisor Cd Area Relationship Specialty Start Date End Date Ana Bolaños MD [address] [place] [address] PCP - General Internal Medicine 06/25/16 Fior Alvarez, ARMORED CAR 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.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 [address] [place] [address] Steel Fabricator Internal Medicine 08/20/24 Supervisor Cd Area Relationship Specialty Start Date End Date Ana Bolaños MD [address] [place] [address] PCP - General Internal Medicine 06/25/16 Fior Alvarez APRN.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 [address] [place] [address] Steel Fabricator Internal Medicine 08/20/24 Supervisor Cd Area Relationship Specialty Start Date End Date Ana Bolaños MD [address] [place] [address] PCP - General Internal Medicine 06/25/16 Fior Alvarez APRN.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 [address] [place] [address] Steel Fabricator Internal Medicine 08/20/24 Supervisor Cd Area Relationship Specialty Start Date End Date Ana Bolaños MD [address] [place] [address] PCP - General Internal Medicine 06/25/16 Fior Alvarez APRN.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 [address] [place] [address] Steel Fabricator Internal Medicine 08/20/24 Supervisor Cd Area Relationship Specialty Start Date End Date Ana Bolaños MD [address] [place] [address] PCP - General Internal Medicine 06/25/16 Fior Alvarez APRN.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 [address] [place] [address] Steel Fabricator Internal Medicine 08/20/24 Supervisor Cd Area Relationship Specialty Start Date End Date Ana Bolaños MD [address] [place] [address] PCP - General Internal Medicine 06/25/16 Fior Alvarez APRN.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 [address] [place] [address] Steel Fabricator Internal Medicine 08/20/24 Supervisor Cd Area Relationship Specialty Start Date End Date Ana Bolaños MD [address] [place] [address] PCP - General Internal Medicine 06/25/16 Fior Alvarez APRN.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 [address] [place] [address] Steel Fabricator Internal Medicine 08/20/24 Supervisor Cd Area Relationship Specialty Start Date End Date Ana Bolaños MD [address] [place] [address] PCP - General Internal Medicine 06/25/16 Fior Alvarez APRN.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 [address] [place] [address] Steel Fabricator Internal Medicine 08/20/24 Supervisor Cd Area Relationship Specialty Start Date End Date Ana Bolaños MD [address] [place] [address] PCP - General Internal Medicine 06/25/16 Fior Alvarez APRN.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 [address] [place] [address] Steel Fabricator Internal Medicine 08/20/24 Supervisor Cd Area Relationship Specialty Start Date End Date Ana Bolaños MD [address] [place] [address] PCP - General Internal Medicine 06/25/16 Fior Alvarez APRN.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 [address] [place] [address] Steel Fabricator Internal Medicine 08/20/24 Supervisor Cd Area Relationship Specialty Start Date End Date Ana Bolaños MD [address] [place] [address] PCP - General Internal Medicine 06/25/16 Fior Alvarez APRN.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 [address] [facility] [place] [address] Steel Fabricator Internal Medicine 08/20/24 Supervisor Cd Area Relationship Specialty Start Date End Date Ana Bolaños MD [address] [place] [address] PCP - General Internal Medicine 06/25/16 Fior Alvarez APRN.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 [address] [place] [address] Steel Fabricator Internal Medicine 08/20/24 Supervisor Cd Area Relationship Specialty Start Date End Date Ana Bolaños MD [address] [place] [address] PCP - General Internal Medicine 06/25/16 Fior Alvarez APRN.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 [address] [place] [address] Steel Fabricator Internal Medicine 08/20/24 Supervisor Cd Area Relationship Specialty Start Date End Date Ana Bolaños MD [address] [place] [address] PCP - General Internal Medicine 06/25/16 Fior Alvarez APRN.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 [address] [place] [address] Steel Fabricator Internal Medicine 08/20/24 Supervisor Cd Area Relationship Specialty Start Date End Date Ana Bolaños MD [address] [place] [address] PCP - General Internal Medicine 06/25/16 Fior Alvarez APRN.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 [address] [facility] [place] [place] [address] Steel Fabricator Internal Medicine 08/20/24 Supervisor Cd Area Relationship Specialty Start Date End Date Ana Bolaños MD [address] [facility] [place] [address] PCP - General Internal Medicine 06/25/16 Fior Alvarez APRN.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 [address] [facility] [place] [address] Steel Fabricator Internal Medicine 08/20/24 Supervisor Cd Area Relationship Specialty Start Date End Date Ana Bolaños MD [address] [place] [address] PCP - General Internal Medicine 06/25/16 Fior Alvarez ARMORED CAR 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.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 [address] [place] [address] Steel Fabricator Internal Medicine 08/20/24 Supervisor Cd Area Relationship Specialty Start Date End Date Ana Bolaños MD [address] [place] [address] PCP - General Internal Medicine 06/25/16 Fior Alvarez ARMORED CAR 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.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 [address] [place] [address] Steel Fabricator Internal Medicine 08/20/24 Supervisor Cd Area Relationship Specialty Start Date End Date Ana Bolaños MD [address] [facility] [place] [address] PCP - General Internal Medicine 06/25/16 Fior Alvarez APRN.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 [address] [place] [address] [facility] Internal Medicine 08/20/24 Supervisor Cd Area Relationship Specialty Start Date End Date Ana Bolaños MD [address] [place], [place] [address] PCP - General Internal Medicine 06/25/16 Fior Alvarez APRN.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 [address] [place] [address] [facility] Internal Medicine 08/20/24 Ordered Prescriptions (unrec ognized section and content) Prescription Sig Dispensed Refills Start Date End Da te oxyCODONE-acetaminophen (PERCOCET) 5-325 MG per tabletIndications:Postop erative [...] mL IVPB (premix) (COMPLETED) 2,000 mg, IntraVENous, SCENERY BUILDER TO O.R., 1 dose, On Wed11/18/21 at 1115, Administer within 1 hour prior to incision. Repeat in 3-4 hours after initial dose if still intra-op., Pre-op (day of surgery) 1310 (New Bag - Prov ider: Rubina Key, QUINCY)1340 (Stopped - Provider: Rubina Key RN) dexameth sod uyfh-mlkfh-kqsz (TAP) syringe SOSY 60 mL 60 mL, Transabdominal Plane, ONCE, On 11/18/21 at 1345, For 1 dose, PACU only 1345 (Due) famotidine (PEPCID) tablet 20 mg (COMPLETED) 20 mg, Oral, ONCE, On e 11/18/21 at 1115, For 1 dose, Pre-op (day of surgery) 1141 (Given - Provid er: Andrzej Horton RN) heparin (porcine) injection 5,000 Units (COMPLETED) 5,000 Units, SubCUTAneous, ONCE, On e 11/18/21 at 1115, For 1 dose, Pre-op (day [...] section and content) DATE CREATED AUTHOR 11/20/2021 [facility] DATE CREATED AUTHOR AUTHOR'S ORGANIZ ATION 04/05/2022 [facility] DATE CREATED AUTHOR AUTHOR'S ORGANIZ ATION 09/09/2023 [facility] DATE CREATED AUTHOR AUTHOR'S ORGANIZ ATION 01/27/2025 [facility] DATE CREATED AUTHOR AUTHOR'S ORGANIZ ATION 06/30/2025 [facility] DATE CREATED AUTHOR AUTHOR'S ORGANIZ ATION 07/25/2025 [facility] Goals (unrecognized section and content) Goals may [...] or prosecute any alcohol or drug abuse patient.[facility] the event this information is protected by the Federal Confidentiality of Alcohol and Drug Abuse Patient Records regulations: The Federal rules restrict any use of the information to criminally investigate or prosecute any alcohol or drug abuse patient.[facility] the event this information is protected by the Federal Confidentiality of Alcohol and Drug Abuse Patient Records regulations: The Federal rules restrict any use of the information to criminally investigate or prosecute any alcohol or drug abuse patient.[facility] the event this information is protected by the Federal Confidentiality of Alcohol and Drug Abuse Patient Records regulations: The Federal rules restrict any use of the information to criminally investigate or prosecute any alcohol or drug abuse patient.[facility] the event this information is protected by the Federal Confidentiality of Alcohol and Drug Abuse Patient Records regulations: The Federal rules restrict any use of the information to criminally investigate or prosecute any alcohol or drug abuse patient.[facility] the event this information is protected by the Federal Confidentiality of Alcohol and Drug Abuse Patient Records regulations: The Federal rules restrict any use of the information to criminally investigate or prosecute any alcohol or drug abuse patient.[facility] the event this information is protected by the Federal Confidentiality of Alcohol and Drug Abuse Patient Records regulations: The Federal rules restrict any use of the information to criminally investigate or prosecute any alcohol or drug abuse patient.[facility] the event this information is protected by the Federal Confidentiality of Alcohol and Drug Abuse Patient Records regulations: The Federal rules restrict any use of the information to criminally investigate or prosecute any alcohol or drug abuse patient.[facility] the event this information is protected by the Federal Confidentiality of Alcohol and Drug Abuse Patient Records regulations: The Federal rules restrict any use of the information to criminally investigate or prosecute any alcohol or drug abuse patient.[facility] the event this information is protected by the Federal Confidentiality of Alcohol and Drug Abuse Patient Records regulations: The Federal rules restrict any use of the information to criminally investigate or prosecute any alcohol or drug abuse patient.[facility] the event this information is protected by the Federal Confidentiality of Alcohol and Drug Abuse Patient Records regulations: The Federal rules restrict any use of the information to criminally investigate or prosecute any alcohol or drug abuse patient.[facility] the event this information is protected by [...] or prosecute any alcohol or drug abuse patient.[facility] the event this information is protected by the Federal Confidentiality of Alcohol and Drug Abuse Patient Records regulations: The Federal rules restrict any use of the information to criminally investigate or prosecute any alcohol or drug abuse patient.[facility] the event this information is protected by the Federal Confidentiality of Alcohol and Drug Abuse Patient Records regulations: The Federal rules restrict any use of the information to criminally investigate or prosecute any alcohol or drug abuse patient.[facility] the event this information is protected by the Federal Confidentiality of Alcohol and Drug Abuse Patient Records regulations: The Federal rules restrict any use of the information to criminally investigate or prosecute any alcohol or drug abuse patient.[facility] the event this information is protected by the Federal Confidentiality of Alcohol and Drug Abuse Patient Records regulations: The Federal rules restrict any use of the information to criminally investigate or prosecute any alcohol or drug abuse patient.[facility] the event this information is protected by the Federal Confidentiality of Alcohol and Drug Abuse Patient Records regulations: The Federal rules restrict any use of the information to criminally investigate or prosecute any alcohol or drug abuse patient.[facility]ron[facility] the event this information is protected by the Federal Confidentiality of Alcohol and Drug Abuse Patient Records regulations: The Federal rules restrict any use of the information to criminally investigate or prosecute any alcohol or drug abuse patient.[facility]ron[facility] the event this information is protected by the Federal Confidentiality of Alcohol and Drug Abuse Patient Records regulations: The Federal rules restrict any use of the information to criminally investigate or prosecute any alcohol or drug abuse patient.[facility]ron[facility] the event this information is protected by the Federal Confidentiality of Alcohol and Drug Abuse Patient Records regulations: The Federal rules restrict any use of the information to criminally investigate or prosecute any alcohol or drug abuse patient.[facility]ron[facility] the event this information is protected by the Federal Confidentiality of Alcohol and Drug Abuse Patient Records regulations: The Federal rules restrict any use of the information to criminally investigate or prosecute any alcohol or drug abuse patient.[facility]ronIn the event this information is protected by the Federal Confidentiality of Alcohol and Drug Abuse Patient Records regulations: The Federal rules restrict any use of the information to criminally investigate or prosecute any alcohol or drug abuse patient.[facility]ronIn the event this information is protected by the Federal Confidentiality of Alcohol and Drug Abuse Patient Records regulations: The Federal rules restrict any use of the information to criminally investigate or prosecute any alcohol or drug abuse patient.[facility]ronIn the event this information is protected by the Federal Confidentiality of Alcohol and Drug Abuse Patient Records regulations: The Federal rules restrict any use of the information to criminally investigate or prosecute any alcohol or drug abuse patient.[facility]ronIn the event this information is protected by the Federal Confidentiality of Alcohol and Drug Abuse Patient Records regulations: The Federal rules restrict any use of the information to criminally investigate or prosecute any alcohol or drug abuse patient.[facility]ronIn the event this information is protected by the Federal Confidentiality of Alcohol and Drug Abuse Patient Records regulations: The Federal rules restrict any use of the information to criminally investigate or prosecute any alcohol or drug abuse patient.[facility]ronIn the event this information is protected by the Federal Confidentiality of Alcohol and Drug Abuse Patient Records regulations: The Federal rules restrict any use of the information to criminally investigate or prosecute any alcohol or drug abuse patient.[facility]ronIn the event this information is protected by the Federal Confidentiality of Alcohol and Drug Abuse Patient Records regulations: The Federal rules restrict any use of the information to criminally investigate or prosecute any alcohol or drug abuse patient.[facility]ronIn the event this information is protected by the Federal Confidentiality of Alcohol and Drug Abuse Patient Records regulations: The Federal rules restrict any use of the information to criminally investigate or prosecute any alcohol or drug abuse patient.[facility]ronIn the event this information is protected by the Federal Confidentiality of Alcohol and Drug Abuse Patient Records regulations: The Federal rules restrict any use of the information to criminally investigate or prosecute any alcohol or drug abuse patient.[facility]ronIn the event this information is protected by the Federal Confidentiality of Alcohol and Drug Abuse Patient Records regulations: The Federal rules restrict any use of the information to criminally investigate or prosecute any alcohol or drug abuse patient.[facility]ronIn the event this information is protected by the Federal Confidentiality of Alcohol and Drug Abuse Patient Records regulations: The Federal rules restrict any use of the information to criminally investigate or prosecute any alcohol or drug abuse patient.[facility]ronIn the event this information is protected by the Federal Confidentiality of Alcohol and Drug Abuse Patient Records regulations: The Federal rules restrict any use of the information to criminally investigate or prosecute any alcohol or drug abuse patient.[facility]ronIn the event this information is protected by the Federal Confidentiality of Alcohol and Drug Abuse Patient Records regulations: The Federal rules restrict any use of the information to criminally investigate or prosecute any alcohol or drug abuse patient.[facility]ronIn the event this information is protected by the Federal Confidentiality of Alcohol and Drug Abuse Patient Records regulations: The Federal rules restrict any use of the information to criminally investigate or prosecute any alcohol or drug abuse patient.[facility]ronIn the event this information is protected by the Federal Confidentiality of Alcohol and Drug Abuse Patient Records regulations: The Federal rules restrict any use of the information to criminally investigate or prosecute any alcohol or drug abuse patient.[facility]ronIn the event this information is protected by the Federal Confidentiality of Alcohol and Drug Abuse Patient Records regulations: The Federal rules restrict any use of the information to criminally investigate or prosecute any alcohol or drug abuse patient.[facility]ronIn the event this information is protected by the Federal Confidentiality of Alcohol and Drug Abuse Patient Records regulations: The Federal rules restrict any use of the information to criminally investigate or prosecute any alcohol or drug abuse patient.[facility]ronIn the event this information is protected by the Federal Confidentiality of Alcohol and Drug Abuse Patient Records regulations: The Federal rules restrict any use of the information to criminally investigate or prosecute any alcohol or drug abuse patient.[facility]ronIn the event this information is protected by the Federal Confidentiality of Alcohol and Drug Abuse Patient Records regulations: The Federal rules restrict any use of the information to criminally investigate or prosecute any alcohol or drug abuse patient.[facility]ronIn the event this information is protected by the Federal Confidentiality of Alcohol and Drug Abuse Patient Records regulations: The Federal rules restrict any use of the information to criminally investigate or prosecute any alcohol or drug abuse patient.[facility]ronIn the event this information is protected by the Federal Confidentiality of Alcohol and Drug Abuse Patient Records regulations: The Federal rules restrict any use of the information to criminally investigate or prosecute any alcohol or drug abuse patient.[facility]ronIn the event this information is protected by the Federal Confidentiality of Alcohol and Drug Abuse Patient Records regulations: The Federal rules restrict any use of the information to criminally investigate or prosecute any alcohol or drug abuse patient.[facility]ronIn the event this information is protected by the Federal Confidentiality of Alcohol and Drug Abuse Patient Records regulations: The Federal rules restrict any use of the information to criminally investigate or prosecute any alcohol or drug abuse patient.[facility]ronIn the event this information is protected by the Federal Confidentiality of Alcohol and Drug Abuse Patient Records regulations: The Federal rules restrict any use of the information to criminally investigate or prosecute any alcohol or drug abuse patient.[facility]ronIn the event this information is protected by the Federal Confidentiality of Alcohol and Drug Abuse Patient Records regulations: The Federal rules restrict any use of the information to criminally investigate or prosecute any alcohol or drug abuse patient.[facility]ronIn the event this information is protected by the Federal Confidentiality of Alcohol and Drug Abuse Patient Records regulations: The Federal rules restrict any use of the information to criminally investigate or prosecute any alcohol or drug abuse patient.[facility]ronIn the event this information is protected by the Federal Confidentiality of Alcohol and Drug Abuse Patient Records regulations: The Federal rules restrict any use of the information to criminally investigate or prosecute any alcohol or drug abuse patient.[facility]ronIn the event this information is protected by the Federal Confidentiality of Alcohol and Drug Abuse Patient Records regulations: The Federal rules restrict any use of the information to criminally investigate or prosecute any alcohol or drug abuse patient.[facility]ronIn the event this information is protected by the Federal Confidentiality of Alcohol and Drug Abuse Patient Records regulations: The Federal rules restrict any use of the information to criminally investigate or prosecute any alcohol or drug abuse patient.[facility]ronIn the event this information is protected by the Federal Confidentiality of Alcohol and Drug Abuse Patient Records regulations: The Federal rules restrict any use of the information to criminally investigate or prosecute any alcohol or drug abuse patient.[facility]ronIn the event this information is protected by the Federal Confidentiality of Alcohol and Drug Abuse Patient Records regulations: The Federal rules restrict any use of the information to criminally investigate or prosecute any alcohol or drug abuse patient.[facility]ronIn the event this information is protected by the Federal Confidentiality of Alcohol and Drug Abuse Patient Records regulations: The Federal rules restrict any use of the information to criminally investigate or prosecute any alcohol or drug abuse patient.[facility]ronIn the event this information is protected by the Federal Confidentiality of Alcohol and Drug Abuse Patient Records regulations: The Federal rules restrict any use of the information to criminally investigate or prosecute any alcohol or drug abuse patient.[facility]ronIn the event this information is protected by the Federal Confidentiality of Alcohol and Drug Abuse Patient Records regulations: The Federal rules restrict any use of the information to criminally investigate or prosecute any alcohol or drug abuse patient.[facility]ronIn the event this information is protected by the Federal Confidentiality of Alcohol and Drug Abuse Patient Records regulations: The Federal rules restrict any use of the information to criminally investigate or prosecute any alcohol or drug abuse patient.[facility]ronIn the event this information is protected by the Federal Confidentiality of Alcohol and Drug Abuse Patient Records regulations: The Federal rules restrict any use of the information to criminally investigate or prosecute any alcohol or drug abuse patient.[facility]ronIn the event this information is protected by the Federal Confidentiality of Alcohol and Drug Abuse Patient Records regulations: The Federal rules restrict any use of the information to criminally investigate or prosecute any alcohol or drug abuse patient.[facility] the event this information is protected by the Federal Confidentiality of Alcohol and Drug Abuse Patient Records regulations: The Federal rules restrict any use of the information to criminally investigate or prosecute any alcohol or drug abuse patient.[facility] [place]ronIn the event this information is protected by the Federal Confidentiality of Alcohol and Drug Abuse Patient Records regulations: The Federal rules restrict any use of the information to criminally investigate or prosecute any alcohol or drug abuse patient.[facility]ronIn the event this information is protected by [...] or prosecute any alcohol or drug abuse patient.[facility] [place]ronIn the event this information is protected by the Federal Confidentiality of Alcohol and Drug Abuse Patient Records regulations: The Federal rules restrict any use of the information to criminally investigate or prosecute any alcohol or drug abuse patient.[facility]ronIn the event this information is protected by the Federal Confidentiality of Alcohol and Drug Abuse Patient Records regulations: The Federal rules restrict any use of the information to criminally investigate or prosecute any alcohol or drug abuse patient.[facility]ronIn the event this information is protected by the Federal Confidentiality of Alcohol and Drug Abuse Patient Records regulations: The Federal rules restrict any use of the information to criminally investigate or prosecute any alcohol or drug abuse patient.[facility]ronIn the event this information is protected by the Federal Confidentiality of Alcohol and Drug Abuse Patient Records regulations: The Federal rules restrict any use of the information to criminally investigate or prosecute any alcohol or drug abuse patient.[facility]ronIn the event this information is protected by the Federal Confidentiality of Alcohol and Drug Abuse Patient Records regulations: The Federal rules restrict any use of the information to criminally investigate or prosecute any alcohol or drug abuse patient.[facility]ronIn the event this information is protected by the Federal Confidentiality of Alcohol and Drug Abuse Patient Records regulations: The Federal rules restrict any use of the information to criminally investigate or prosecute any alcohol or drug abuse patient.[facility]ronIn the event this information is protected by the Federal Confidentiality of Alcohol and Drug Abuse Patient Records regulations: The Federal rules restrict any use of the information to criminally investigate or prosecute any alcohol or drug abuse patient.[facility]ronIn the event this information is protected by the Federal Confidentiality of Alcohol and Drug Abuse Patient Records regulations: The Federal rules restrict any use of the information to criminally investigate or prosecute any alcohol or drug abuse patient.[facility]ronIn the event this information is protected by the Federal Confidentiality of Alcohol and Drug Abuse Patient Records regulations: The Federal rules restrict any use of the information to criminally investigate or prosecute any alcohol or drug abuse patient.[facility]ronIn the event this information is protected by the Federal Confidentiality of Alcohol and Drug Abuse Patient Records regulations: The Federal rules restrict any use of the information to criminally investigate or prosecute any alcohol or drug abuse patient.[facility]ronIn the event this information is protected by the Federal Confidentiality of Alcohol and Drug Abuse Patient Records regulations: The Federal rules restrict any use of the information to criminally investigate or prosecute any alcohol or drug abuse patient.[facility]ronIn the event this information is protected by the Federal Confidentiality of Alcohol and Drug Abuse Patient Records regulations: The Federal rules restrict any use of the information to criminally investigate or prosecute any alcohol or drug abuse patient.[facility]ronIn the event this information is protected by the Federal Confidentiality of Alcohol and Drug Abuse Patient Records regulations: The Federal rules restrict any use of the information to criminally investigate or prosecute any alcohol or drug abuse patient.[facility]ronIn the event this information is protected by the Federal Confidentiality of Alcohol and Drug Abuse Patient Records regulations: The Federal rules restrict any use of the information to criminally investigate or prosecute any alcohol or drug abuse patient.[facility]ronIn the event this information is protected by the Federal Confidentiality of Alcohol and Drug Abuse Patient Records regulations: The Federal rules restrict any use of the information to criminally investigate or prosecute any alcohol or drug abuse patient.[facility]ronIn the event this information is protected by the Federal Confidentiality of Alcohol and Drug Abuse Patient Records regulations: The Federal rules restrict any use of the information to criminally investigate or prosecute any alcohol or drug abuse patient.[facility]ronIn the event this information is protected by the Federal Confidentiality of Alcohol and Drug Abuse Patient Records regulations: The Federal rules restrict any use of the information to criminally investigate or prosecute any alcohol or drug abuse patient.[facility]ronIn the event this information is protected by the Federal Confidentiality of Alcohol and Drug Abuse Patient Records regulations: The Federal rules restrict any use of the information to criminally investigate or prosecute any alcohol or drug abuse patient.[facility]ronIn the event this information is protected by the Federal Confidentiality of Alcohol and Drug Abuse Patient Records regulations: The Federal rules restrict any use of the information to criminally investigate or prosecute any alcohol or drug abuse patient.[facility]ronIn the event this information is protected by the Federal Confidentiality of Alcohol and Drug Abuse Patient Records regulations: The Federal rules restrict any use of the information to criminally investigate or prosecute any alcohol or drug abuse patient.[facility]ronIn the event this information is protected by the Federal Confidentiality of Alcohol and Drug Abuse Patient Records regulations: The Federal rules restrict any use of the information to criminally investigate or prosecute any alcohol or drug abuse patient.[facility]ronIn the event this information is protected by the Federal Confidentiality of Alcohol and Drug Abuse Patient Records regulations: The Federal rules restrict any use of the information to criminally investigate or prosecute any alcohol or drug abuse patient.[facility]ronIn the event this information is protected by the Federal Confidentiality of Alcohol and Drug Abuse Patient Records regulations: The Federal rules restrict any use of the information to criminally investigate or prosecute any alcohol or drug abuse patient.[facility]ronIn the event this information is protected by the Federal Confidentiality of Alcohol and Drug Abuse Patient Records regulations: The Federal rules restrict any use of the information to criminally investigate or prosecute any alcohol or drug abuse patient.[facility]ronIn the event this information is protected by the Federal Confidentiality of Alcohol and Drug Abuse Patient Records regulations: The Federal rules restrict any use of the information to criminally investigate or prosecute any alcohol or drug abuse patient.[facility]ronIn the event this information is protected by the Federal Confidentiality of Alcohol and Drug Abuse Patient Records regulations: The Federal rules restrict any use of the information to criminally investigate or prosecute any alcohol or drug abuse patient.[facility]ronIn the event this information is protected by the Federal Confidentiality of Alcohol and Drug Abuse Patient Records regulations: The Federal rules restrict any use of the information to criminally investigate or prosecute any alcohol or drug abuse patient.[facility]ronIn the event this information is protected by the Federal Confidentiality of Alcohol and Drug Abuse Patient Records regulations: The Federal rules restrict any use of the information to criminally investigate or prosecute any alcohol or drug abuse patient.[facility]ronIn the event this information is protected by the Federal Confidentiality of Alcohol and Drug Abuse Patient Records regulations: The Federal rules restrict any use of the information to criminally investigate or prosecute any alcohol or drug abuse patient.[facility]ronIn the event this information is protected by the Federal Confidentiality of Alcohol and Drug Abuse Patient Records regulations: The Federal rules restrict any use of the information to criminally investigate or prosecute any alcohol or drug abuse patient.[facility]ronIn the event this information is protected by the Federal Confidentiality of Alcohol and Drug Abuse Patient Records regulations: The Federal rules restrict any use of the information to criminally investigate or prosecute any alcohol or drug abuse patient.[facility]ronIn the event this information is protected by the Federal Confidentiality of Alcohol and Drug Abuse Patient Records regulations: The Federal rules restrict any use of the information to criminally investigate or prosecute any alcohol or drug abuse patient.[facility]ronIn the event this information is protected by the Federal Confidentiality of Alcohol and Drug Abuse Patient Records regulations: The Federal rules restrict any use of the information to criminally investigate or prosecute any alcohol or drug abuse patient.[facility]ronIn the event this information is protected by the Federal Confidentiality of Alcohol and Drug Abuse Patient Records regulations: The Federal rules restrict any use of the information to criminally investigate or prosecute any alcohol or drug abuse patient.[facility] Reason for Visit (unrecogniz ed section and content) Reason Comments Insurance Authorization sleep study Reason Onset Date Comments Refill Request 01/09/2022 Reason Comments PSG results Reason Comments 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 Reason Comments Orders [...] week follow up Req: referral to [facility] for neuropathy , starting phentermine or zepbound [...] US Specialty Diagnoses / Procedures Referred By Raquel quesada Referred To Contact [facility] Diagnoses Uterine cyst Abnormal CT scan Procedures US FEMALE PELVIS TRANSVAG US TRANSVAGINAL Fior Alvarez APRN.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 [address] [place] [address] Phone: tel: fax: [facility] [place] [id number] Referral ID Status Reason Start Date Expiration Date V isits Requested Visits Authorized [id number] Closed Auto-Generate d Referral 01/26/2025 02/25/2026 1 1 Reason Comments ultrasound results Reason Onset Date Comments Refill Request 02/08/2025 Reason Onset Date Comments EMG 02/09/2025 Specialty Diagnoses / Procedures Referred By Contac t Referred To [facility] Diagnoses Paresthesia of both feet Procedures [facility](NEURO/NI) NERVE CONDUCTION STUDIES 9-10 STUDIES Lucille Brandt PA-C [address] [facility] [address] [place] [address] Phone: tel: fax: Neurology [address] [place] [address] Phone: tel: Referral ID Status Reason Start Date Expiration Date V isits Requested Visits Authorized [id number] Closed Auto-Generate d Referral 01/22/2025 01/22/2026 1 [...] BE BASED ON THE PRIMARY CLINICAL RECORDS. [facility] provides no warranty or guarantee of the accuracy or completeness of information in this document.
[2025-08-23 07:25] LABS: Hematocrit 39.3 % (37-47); Hemoglobin 13.4 g/dL (12.0-15.0); Immature Granulocytes Count 0.010 X10^3/uL (0.0-0.0); Mean Corp Hgb Conc 34.1 g/dL (32-36); Mean Corpuscular Volume 91.4 fL (81-99); Mean Platelet Vol. 9.1 fl (6.2-12.0); NRBC Flagged by Analyzer 0 % (0-5); Platelet Count 292 K/mm3 (150-450); RBC Distribution Width CV 12.0 % (11.6-14.6); RBC Distribution Width SD 40.7 fl (35.1-43.9); Red Blood Count 4.30 M/mm3 (4.2-5.4); White Blood Count 5.9 K/mm3 (4.4-11.0)
[2025-08-23 08:08] LABS: AST(SGOT) 24 U/L (<=31); Alanine Aminotransfer ALT/SGPT 15 U/L (<=34); Albumin, Serum 4.5 g/dL (3.5-5.0); Alkaline Phosphatase 94 U/L (35-104); Bilirubin, Direct 0.17 mg/dL (0.00-0.30); Globulin 2.7 g/dL (2.2-4.2)
[2025-08-24 14:09] LABS: Anti-dsDNA Ab <1 IU/mL (0-9); PROEL- A/G Ratio 1.2 (0.7-1.7); PROEL- Albumin 3.8 g/dL (2.9-4.4); PROEL- Alpha-1 Globulin 0.3 g/dL (0.0-0.4); PROEL- Alpha-2 Globulin 1.0 g/dL (0.4-1.0); PROEL- Beta Globulin 1.1 g/dL (0.7-1.3); PROEL- Gamma Globulin 0.8 g/dL (0.4-1.8); PROEL- Globulin, Total 3.1 g/dL (2.2-3.9); PROEL- TOTAL PROTEIN 6.9 g/dL (6.0-8.5); PROEL-M-Spike Comment: g/dL (Not Observed)
== END | disposition home or self-care (01) ==
LOC: LAB 06:52
PROVIDERS: PCP Internal Medicine; Referring Provider Internal Medicine Rheumatology; Visit Provider Internal Medicine Rheumatology
DX: M35.01 Sjogren syndrome with keratoconjunctivitis (principal); Z79.899 Other long term (current) drug therapy
CPT/HCPCS: 36415; 80076; 82565; 84165; 85025; 86225

== ENCOUNTER 2025-08-24 07:00 | Outpatient (RCR) | payer OTHER, SELFPAY ==
--- NOTE | 2025-07-31 08:29 | HP.PTEVAL_ITS ---
Patient's Visit Information Visit Information Visit Information: SANTOS ALLAN is a 59 year old F referred to Physical Therapy by Dr. Tobin Bauman MD with a diagnosis of Arthrodesis. Date of Evaluation: 07/31/25 Physical Therapist: Macario Rausch, PT, Cert MDT, OCS Visit Plan Frequency: 2x /Week Duration: 4 Weeks Plan: PT INTERVENTIONS DLS ,POSTURAL EX' SLE FLEXABILITY ,HIP STRENGTHENING AND ACTIVITY MODIFICATION/BODY MECHANICS TRAINING Subjective Subjective: This 59 y/o female presents to physical therapy with s/p lumbar fusion Jul [address] Bauman at [facility]. Patient procedure L5-S1 transforaminal lumbar interbody fusion. Patient has had lumbar pain for several years ,tried pain management thus had injections. MRI showed Degenerative changes, predominantly for severe canal stenosis at L3- L4 and L4-L5.Medication mobic/gabapentin . Patient seen DR Bauman 07/24 recommend cont No BLT no lifting > 5# . Patient is doing better. Denies paresthesia/tingling-. Patient does have neuropathy. Aggravating factors extended sitting/standing. Alleviating factors rest and mediaction . Coughing/sneezing-. Bowel/bladder-. Patient sleeping good. Patient condition affects QOL and function. SOCIAL: VOACTION:Computer Pain Bilateral Back: Pain Intensity (Out of 10): 2 Pain Intensity Range: 5 Objective Objective: POSTURE: mild forward posture GAIT: ambulates with reciprocal pattern NEURO: Denies paresthesia/tingling ,reflexes 1/3 achilles ,patella INCISION: well approximated although edema around incision FLEXABILITY:hamstrings min tight MMT: quads/hams 4/5 ,hip flexion 4-/5 ,ankle 4/5 LUMBAR ROM: flexion 25% loss ,extension 50% loss ,side glides 25% loss Special Tests L/S Slump test left side: Negative L/S Slump test right side: Negative L/S Left Straight Leg Raise: Negative L/S Right Straight Leg Raise: Negative Balance/Special Test Scores Oswestry Low Back Score: 21 Goals Goal 1:: Patient to be I with HEP for back Goal Time Frame: 4-6 Weeks Goal 2:: Patient to improve lumbar ROM for function of recovery for ADLS and outting on shoes Goal Time Frame: 4-6 Weeks Goal 3:: Patient to improve back oswestry score by 5 points to improve QOL Goal Time Frame: 4-6 Weeks Goal 4:: Patient to demonstrate 75% improvement with less pain and improved function. Goal Time Frame: 4-6 Weeks Rehabilitation Potential Physical Therapy Diagnosis: This patient underwent s/p lumbar fusion L5-S1 transforaminal lumbar interbody fusion Jul 10 with decrease activity ,lumbar ROM and ADLS thus benefit from skilled PT Rehabilitation Potential: Good Anticipated Interventions Patient/Client Instruction: Educate patient on: Condition and Plan of Care For the Purpose of:: To decrease pain, To decrease swelling/inflammation, To improve muscle performance and motor function, To increase tolerance to activity/condition/position, To improve ability of physical actions for home/community/work/leisure, To improve health of tissue, To decrease soft tissue restriction, To increase flexibility/ROM and To assume or resume ADL's Therapeutic Exercise to Include: Strength training, Body mechanics, Postural training, Flexibilty training, Active ROM and Dynamic Lumbar Stabilization For the Purpose of:: To decrease pain, To increase ROM, To improve muscle performance and motor function, To increase tolerance to activity/condition/position, To improve ability of physical actions for home/community/work/leisure, To improve health of tissue, To decrease soft tissue restriction, To increase flexibility/ROM, To reduce risk of recurrence and To improve tolerance to ADL's Text: Thank you for the opportunity to evaluate your patient. For Medicare and Medicare HMO plans, please review the plan of care and approve it. It will need to be FAXED BACK to us at [phone] for Medicare purposes. For Medicare only, by signing this I certify the plan of care. Please let me know if there are questions or concerns regarding this plan of care. Physician Signature: Date:
--- NOTE | 2025-08-24 07:23 | HP.PTDCSUM ---
Discharge Summary D/C summary: It has been my pleasure to treat SANTOS ALLAN referred by Dr. Tobin Bauman MD, with the diagnosis of Arthrodesis for a total of 8 visit(s). Discharge Date: 08/24/25 Please see the following information for a summary of their discharge status. Subjective Subjective: Doing well .. Seen DR Simondoing well per 15 #-20# Pain Bilateral Back: Pain Intensity (Out of 10): 2 Overall Improvement % Improvement: 80 Objective Objective/Function: POSTURE: WFL GAIT: ambulates with reciprocal pattern NEURO: Denies paresthesia/tingling ,reflexes 1/3 achilles ,patella INCISION: well approximated although edema around incision FLEXABILITY:hamstrings min tight MMT: quads/hams 4/5 ,hip flexion 4-/5 ,ankle 4/5 LUMBAR ROM: flexion WFL ,extension 25% loss ,side glides WFL Goals Goal 1:: Patient to be I with HEP for back Goal Progress: Goal Met Goal 2:: Patient to improve lumbar ROM for function of recovery for ADLS and outting on shoes Goal Progress: Goal Met Goal 3:: Patient to improve back oswestry score by 5 points to improve QOL Goal Progress: Goal Met Goal 4:: Patient to demonstrate 75% improvement with less pain and improved function. Goal Progress: Goal Met Plan Plan: D/C TO HEP D/C Information Discharge Comments: HEP d/c sentence: If there are questions or concerns regarding this patient's physical therapy, please feel free to call me at [phone]. Thank you for the referral of this patient. Sincerely, Macario Rausch, PT, Cert MDT, OCS Balance/Gait/Functional tests Balance/Special Test Scores Oswestry Low Back Score: 2 Improvement % Improvement: 80
== END 2025-08-24 19:00 | disposition home or self-care (01) ==
LOC: PT 07:00
PROVIDERS: PCP Internal Medicine; Referring Provider Orthopaedic Surgery Orthopaedic Surgery of the Spine; Visit Provider Orthopaedic Surgery Orthopaedic Surgery of the Spine
DX: Z47.89 Encounter for other orthopedic aftercare (principal); Z98.1 Arthrodesis status
CPT/HCPCS: 97110; 97162; 97530